=== PATIENT | female | born 1940 | race Caucasian/White ===

== ENCOUNTER 2023-02-06 11:13 | Outpatient (OUT) | payer MEDICARE, SELFPAY ==
[2023-02-06 11:31] LABS: Calcium 9.9 mg/dL (8.5-10.1); Estimated GFR (African America >60 (>=60); Estimated GFR (Non-African Ame >60 (>=60)
[2023-02-08 13:15] VITALS: BP 133/76; PULSE 66; RESP 20; TEMP 36.7; O2SAT 96
[2023-02-08] MEDS: ROMOSOZUMAB-AQQG 210 MG/2.34 ML SYRINGE SQ (13:25)
--- NOTE | 2023-02-08 13:31 | PC.NURSE ---
1315: Pt. to [facility] amb per self. Seated in recliner. VSS. Denies c/o. Pt. called earlier to have pharmacy remove med. from refrigerator. Denies c/o adverse reactions from previous injections of Evenity. 1325: Pt. medicated with Evenity 210mg SQ to right arm x 2 injection sites. No bleeding observed. 1328: Pt. without c/o. D/c'd to home amb.
== END 2023-02-08 10:00 | disposition home or self-care (01) ==
LOC: INF 11:14
PROVIDERS: PCP Family Medicine
DX: M80.00XA Age-related osteoporosis with current pathological fracture, unspecified site, initial encounter for fracture (principal)
CPT/HCPCS: 36415; 82310; 82565; 96372; J3111

== ENCOUNTER 2023-03-13 12:12 | Outpatient (OUT) | payer MEDICARE, SELFPAY | END 2023-03-13 12:13 | disposition home or self-care (01) | LOC: LAB 03-20 12:14 | PROVIDERS: PCP Family Medicine; Visit Provider Internal Medicine Hematology & Oncology | DX: M80.00XA Age-related osteoporosis with current pathological fracture, unspecified site, initial encounter for fracture (principal) | CPT/HCPCS: 36415; 82310; 82565 ==

== ENCOUNTER 2023-03-15 12:15 | Outpatient (OUT) | payer MEDICARE, SELFPAY ==
[2023-03-13 11:36] LABS: Calcium 10.3 mg/dL (8.5-10.1); Estimated GFR (African America >60 (>=60); Estimated GFR (Non-African Ame >60 (>=60)
[2023-03-15] MEDS: ROMOSOZUMAB-AQQG 210 MG/2.34 ML SYRINGE SQ (11:30)
[2023-03-15 11:32] VITALS: BP 136/65; PULSE 88; RESP 18; TEMP 36.9; O2SAT 92
--- NOTE | 2023-03-15 11:34 | PC.NURSE ---
Patient is here for Evenity injection, she had her blood work done on 03/13, she denies any issue or concerns. Patient tolerated injection well and has tolerated it in the past well. She was discharged home.
== END 2023-03-15 12:16 | disposition home or self-care (01) ==
LOC: INF 03-20 12:15
PROVIDERS: PCP Family Medicine
DX: M80.00XA Age-related osteoporosis with current pathological fracture, unspecified site, initial encounter for fracture (principal)
CPT/HCPCS: 36415; 82310; 82565; 96372; J3111

== ENCOUNTER 2023-04-11 11:34 | Outpatient (RCR) | payer MEDICARE, SELFPAY ==
[2023-04-11 12:37] LABS: Calcium 9.8 mg/dL (8.5-10.1); Estimated GFR (African America >60 (>=60); Estimated GFR (Non-African Ame >60 (>=60)
[2023-04-13 13:20] VITALS: BP 112/60; PULSE 75; RESP 18; TEMP 36.4; O2SAT 90
[2023-04-13] MEDS: ROMOSOZUMAB-AQQG 210 MG/2.34 ML SYRINGE SQ (13:30)
== END 2023-04-27 23:59 | disposition home or self-care (01) ==
LOC: INF 11:34
PROVIDERS: PCP Family Medicine
DX: M81.0 Age-related osteoporosis without current pathological fracture (principal)
CPT/HCPCS: 36415; 82310; 82565; 96372; J3111

== ENCOUNTER 2023-05-15 11:55 | Outpatient (OUT) | payer MEDICARE, SELFPAY ==
[2023-05-15 12:56] LABS: Calcium 9.1 mg/dL (8.5-10.1); Estimated GFR (African America >60 (>=60); Estimated GFR (Non-African Ame >60 (>=60)
== END 2023-05-15 11:56 | disposition home or self-care (01) ==
LOC: LAB 11:56
PROVIDERS: PCP Family Medicine
DX: M81.0 Age-related osteoporosis without current pathological fracture (principal)
CPT/HCPCS: 36415; 82310; 82565

== ENCOUNTER 2023-05-18 07:36 | Outpatient (RCR) | payer MEDICARE, SELFPAY ==
[2023-05-18 13:29] VITALS: BP 109/57; PULSE 79; RESP 18; TEMP 36.4; O2SAT 97
--- NOTE | 2023-05-18 13:31 | PC.NURSE ---
1325 Arrived ambulatory to chair 1. alert oriented. No complaints offered.
[2023-05-18] MEDS: ROMOSOZUMAB-AQQG 210 MG/2.34 ML SYRINGE SQ (13:35)
== END 2023-05-27 23:59 | disposition home or self-care (01) ==
LOC: INF 07:36
PROVIDERS: PCP Family Medicine
DX: M80.00XA Age-related osteoporosis with current pathological fracture, unspecified site, initial encounter for fracture (principal)
CPT/HCPCS: 96372; J3111

== ENCOUNTER 2023-06-15 07:36 | Outpatient (RCR) | payer MEDICARE, SELFPAY ==
[2023-06-13 11:12] LABS: Calcium 9.6 mg/dL (8.5-10.1); Estimated GFR (African America >60 (>=60); Estimated GFR (Non-African Ame 58 (>=60)
[2023-06-15] MEDS: ROMOSOZUMAB-AQQG 210 MG/2.34 ML SYRINGE SQ (13:31)
== END 2023-06-27 23:59 | disposition home or self-care (01) ==
LOC: INF 07:36
PROVIDERS: PCP Family Medicine
DX: M81.0 Age-related osteoporosis without current pathological fracture (principal)
CPT/HCPCS: 36415; 82310; 82565; 96372; J3111

== ENCOUNTER 2023-06-19 16:25 | Outpatient (RCR) | payer MEDICARE, SELFPAY | END 2023-06-26 07:13 | disposition home or self-care (01) | LOC: CR 16:25 | PROVIDERS: PCP Family Medicine; Visit Provider Family Medicine | DX: J44.9 Chronic obstructive pulmonary disease, unspecified (principal) ==

== ENCOUNTER 2023-07-10 14:26 | Outpatient (OUT) | payer MEDICARE, SELFPAY ==
[2023-07-10 15:01] LABS: Calcium 9.7 mg/dL (8.5-10.1); Estimated GFR (African America >60 (>=60); Estimated GFR (Non-African Ame 59 (>=60)
== END 2023-07-10 14:27 | disposition home or self-care (01) ==
LOC: LAB 14:26
PROVIDERS: PCP Family Medicine; Visit Provider Family Medicine
DX: M81.0 Age-related osteoporosis without current pathological fracture (principal)
CPT/HCPCS: 36415; 82310; 82565

== ENCOUNTER 2023-07-13 13:23 | Outpatient (RCR) | payer MEDICARE, SELFPAY ==
[2023-07-13] MEDS: ROMOSOZUMAB-AQQG 210 MG/2.34 ML SYRINGE SQ (13:30)
[2023-07-13 13:31] VITALS: BP 130/65; PULSE 87; RESP 18; TEMP 36; O2SAT 92
== END 2023-07-27 23:59 | disposition home or self-care (01) ==
LOC: INF 13:23
PROVIDERS: PCP Family Medicine
DX: M80.00XA Age-related osteoporosis with current pathological fracture, unspecified site, initial encounter for fracture (principal)
CPT/HCPCS: 96372; J3111

== ENCOUNTER 2023-08-14 14:15 | Outpatient (OUT) | payer MEDICARE, SELFPAY ==
[2023-08-14 14:38] LABS: Calcium 9.7 mg/dL (8.5-10.1); Estimated GFR (African America 54 (>=60); Estimated GFR (Non-African Ame 45 (>=60)
== END 2023-08-14 14:16 | disposition home or self-care (01) ==
PROVIDERS: PCP Family Medicine
DX: M81.0 Age-related osteoporosis without current pathological fracture (principal)
CPT/HCPCS: 36415; 82310; 82565

== ENCOUNTER 2023-08-18 07:21 | Outpatient (RCR) | payer MEDICARE, SELFPAY ==
[2023-08-18] MEDS: ROMOSOZUMAB-AQQG 210 MG/2.34 ML SYRINGE SQ (10:04)
[2023-08-18 10:12] VITALS: BP 112/60; PULSE 65; RESP 20; TEMP 35.8; O2SAT 93
--- NOTE | 2023-08-18 10:15 | PC.NURSE ---
0950 arrival ambulatory to chair 1. alert & oriented. 1000 injection of Evinity sub q rt upper posterior arm, bandaid applied. Tolerated well. 1010 Released ambulatory
== END 2023-08-18 10:10 | disposition home or self-care (01) ==
LOC: INF 07:21
PROVIDERS: PCP Family Medicine
DX: M80.00XA Age-related osteoporosis with current pathological fracture, unspecified site, initial encounter for fracture (principal)
CPT/HCPCS: 96372; J3111

== ENCOUNTER 2023-08-23 07:13 | Outpatient (RCR) | payer MEDICARE, SELFPAY ==
--- NOTE | 2023-06-27 12:07 | CR1_ITS ---
The [facility] Test Date: 2023-06-27 Pat Name: ALEKSANDR SANCHEZ Department: Room: - Gender: Female Radio Division Officer: : 1940 Requested By: SHELIA MOORE Order Number: [id number] Reading MD: SHELIA MOORE Interpretive Statements Session Date: Electronically Signed On 06-28-2023 7:27:22 EDT by SHELIA MOORE
--- NOTE | 2023-07-26 07:57 | CR1_ITS ---
The [facility] Test Date: 2023-07-26 Pat Name: ALEKSANDR SANCHEZ Department: Room: - Gender: Female Therapeutic Dietitian: : 1940 Requested By: SHELIA MOORE Order Number: [id number] Reading MD: SHELIA MOORE Interpretive Statements Session Date: Electronically Signed On 07-27-2023 7:22:23 EST by SHELIA MOORE
--- NOTE | 2023-08-23 12:44 | CR1_ITS ---
The [facility] Test Date: 2023-08-23 Pat Name: ALEKSANDR SANCHEZ Department: Room: - Gender: Female Senior Courtroom Clerk: : 1940 Requested By: SHELIA MOORE Order Number: [id number] Reading MD: SHELIA MOORE Interpretive Statements Session Date: Electronically Signed On 08-25-2023 7:17:28 EST by SHELIA MOORE
== END 2023-08-27 09:07 | disposition home or self-care (01) ==
LOC: CR 07:13
PROVIDERS: PCP Family Medicine; Visit Provider Family Medicine
DX: J44.9 Chronic obstructive pulmonary disease, unspecified (principal)
CPT/HCPCS: 36415; 82310; 82565; 94625

== ENCOUNTER 2023-09-14 07:34 | Outpatient (RCR) | payer MEDICARE, SELFPAY ==
[2023-09-13 14:44] LABS: Calcium 9.8 mg/dL (8.5-10.1); Estimated GFR (African America 58 (>=60); Estimated GFR (Non-African Ame 48 (>=60)
[2023-09-14] MEDS: ROMOSOZUMAB-AQQG 210 MG/2.34 ML SYRINGE SQ (13:25)
[2023-09-14 13:50] VITALS: BP 119/68; PULSE 78; RESP 20; TEMP 36.4; O2SAT 91
== END 2023-09-14 14:00 | disposition home or self-care (01) ==
LOC: INF 07:34
PROVIDERS: PCP Family Medicine
DX: M81.0 Age-related osteoporosis without current pathological fracture (principal)
CPT/HCPCS: 36415; 82310; 82565; 96372; J3111

== ENCOUNTER 2023-10-09 07:37 | Outpatient (RCR) | payer MEDICARE, SELFPAY ==
[2023-10-06 13:38] LABS: Estimated GFR (African America >60 (>=60); Estimated GFR (Non-African Ame 54 (>=60)
[2023-10-09 13:30] VITALS: BP 110/55; PULSE 74; RESP 18; TEMP 36.3; O2SAT 93
[2023-10-09] MEDS: ROMOSOZUMAB-AQQG 210 MG/2.34 ML SYRINGE SQ (13:46)
--- NOTE | 2023-10-09 13:52 | PC.NURSE ---
Pt is here for evenity injection and tolerated this well. She denies any issues or concerns at this time. She was discharged home ambulatory.
== END 2023-10-26 23:59 | disposition home or self-care (01) ==
LOC: INF 07:37
PROVIDERS: PCP Family Medicine
DX: M81.0 Age-related osteoporosis without current pathological fracture (principal)
CPT/HCPCS: 36415; 82310; 82565; 96372; J3111

== ENCOUNTER 2023-12-11 07:31 | Outpatient (RCR) | payer MEDICARE, SELFPAY ==
[2023-12-11] MEDS: ROMOSOZUMAB-AQQG 210 MG/2.34 ML SYRINGE SQ (11:34)
[2023-12-11 11:42] VITALS: BP 103/55; PULSE 71; TEMP 36.2; O2SAT 93
== END 2023-12-26 23:59 | disposition home or self-care (01) ==
LOC: INF 07:31
PROVIDERS: PCP Family Medicine
DX: M81.0 Age-related osteoporosis without current pathological fracture (principal)
CPT/HCPCS: 96372; J3111

== ENCOUNTER 2023-12-20 11:18 | Outpatient (OUT) | payer MEDICARE, SELFPAY ==
[2023-12-20 12:31] LABS: Calcium 9.5 mg/dL (8.5-10.1); Estimated GFR (African America >60 (>=60); Estimated GFR (Non-African Ame 54 (>=60)
== END 2023-12-20 11:19 | disposition home or self-care (01) ==
LOC: LAB 11:30
PROVIDERS: PCP Family Medicine
DX: M81.0 Age-related osteoporosis without current pathological fracture (principal)
CPT/HCPCS: 36415; 82310; 82565

== ENCOUNTER 2024-01-04 07:08 | Outpatient (RCR) | payer MEDICARE, SELFPAY ==
--- NOTE | 2023-09-22 12:54 | CR1_ITS ---
The [facility] Test Date: 2023-09-22 Pat Name: ALEKSANDR SANCHEZ Department: Room: - Gender: Female Silk Conditioner: : 1940 Requested By: SHELIA MOORE Order Number: [id number] Desean MD: SHELIA MOORE Interpretive Statements Session Date: Electronically Signed On 09-22-2023 14:27:19 EST by SHELIA MOORE
--- NOTE | 2023-10-23 13:37 | CR1_ITS ---
The [facility] Test Date: 2023-10-23 Pat Name: ALEKSANDR SANCHEZ Department: Room: - Gender: Female Solar Energy Technician: : 1940 Requested By: SHELIA MOORE Order Number: [id number] Reading MD: SHELIA MOORE Interpretive Statements Session Date: Electronically Signed On 10-23-2023 23:37:49 EST by SHELIA MOORE
--- NOTE | 2023-11-20 07:46 | CR1_ITS ---
The [facility] Test Date: 2023-11-20 Pat Name: ALEKSANDR SANCHEZ Department: Room: - Gender: Female Combine Mechanic: : 1940 Requested By: SHELIA MOORE Order Number: [id number] Reading MD: SHELIA MOORE Interpretive Statements Session Date: Electronically Signed On 11-20-2023 22:50:38 EDT by SHELIA MOORE
--- NOTE | 2024-01-17 13:24 | CR1_ITS ---
The [facility] Test Date: 2024-01-17 Pat Name: ALEKSANDR SANCHEZ Department: Room: - Gender: Female Garbage Truck Dispatcher: : 1940 Requested By: SHELIA MOORE Order Number: [id number] Reading MD: SHELIA MOORE Interpretive Statements Session Date: Electronically Signed On 01-17-2024 22:28:08 EDT by SHELIA OMORE
--- NOTE | 2024-01-24 09:45 | CR1_ITS ---
The [facility] Test Date: 2024-01-24 Pat Name: ALEKSANDR SANCHEZ Department: Room: - Gender: Female Entry Level Civil Engineer: : 1940 Requested By: SHELIA MOORE Order Number: [id number] Reading MD: SHELIA MOORE Interpretive Statements Session Date: Electronically Signed On 01-24-2024 23:10:43 EDT by SHELIA MOORE
== END 2024-01-24 09:49 | disposition home or self-care (01) ==
LOC: CR 07:08
PROVIDERS: PCP Family Medicine; Visit Provider Family Medicine
DX: J44.9 Chronic obstructive pulmonary disease, unspecified (principal)
CPT/HCPCS: 93798; 94625

== ENCOUNTER 2024-01-11 07:26 | Outpatient (RCR) | payer MEDICARE, SELFPAY ==
[2024-01-11 11:25] VITALS: BP 131/71; PULSE 65; O2SAT 95
[2024-01-11] MEDS: ROMOSOZUMAB-AQQG 210 MG/2.34 ML SYRINGE SQ (11:40)
--- NOTE | 2024-01-11 11:41 | PC.NURSE ---
Patient is here for evenity injection, vitals obtained and stable. She tolerated this well and denies any concerns. She was discharged home ambulatory.
== END 2024-01-26 23:59 | disposition home or self-care (01) ==
LOC: INF 07:26
PROVIDERS: PCP Family Medicine; Visit Provider Nurse Practitioner Family
DX: M81.0 Age-related osteoporosis without current pathological fracture (principal)
CPT/HCPCS: 96372; J3111

== ENCOUNTER 2024-02-14 07:25 | Outpatient (RCR) | payer MEDICARE, SELFPAY ==
[2024-02-14 12:10] VITALS: BP 107/63; PULSE 78; TEMP 37.2; O2SAT 91
[2024-02-14] MEDS: ROMOSOZUMAB-AQQG 210 MG/2.34 ML SYRINGE SQ (12:11)
== END 2024-02-14 14:58 | disposition home or self-care (01) ==
LOC: INF 07:25
PROVIDERS: PCP Family Medicine; Visit Provider Nurse Practitioner Family
DX: M81.0 Age-related osteoporosis without current pathological fracture (principal)
CPT/HCPCS: 96372; J3111

== ENCOUNTER 2024-03-21 07:33 | Outpatient (RCR) | payer MEDICARE, SELFPAY ==
[2024-03-21 13:00] VITALS: BP 156/72; PULSE 77; TEMP 37.1; O2SAT 91
[2024-03-21] MEDS: ROMOSOZUMAB-AQQG 210 MG/2.34 ML SYRINGE SQ (13:24)
== END 2024-03-27 23:59 | disposition home or self-care (01) ==
LOC: INF 07:33
PROVIDERS: PCP Family Medicine; Visit Provider Nurse Practitioner Family
DX: M81.0 Age-related osteoporosis without current pathological fracture (principal)
CPT/HCPCS: 96372; J3111

== ENCOUNTER 2024-04-22 07:36 | Outpatient (RCR) | payer MEDICARE, SELFPAY ==
[2024-04-22 10:53] VITALS: BP 95/56; PULSE 68; TEMP 37.1; O2SAT 94
[2024-04-22] MEDS: ROMOSOZUMAB-AQQG 210 MG/2.34 ML SYRINGE SQ (11:17)
== END 2024-04-27 23:59 | disposition home or self-care (01) ==
LOC: INF 07:36
PROVIDERS: PCP Family Medicine; Visit Provider Nurse Practitioner Family
DX: M81.0 Age-related osteoporosis without current pathological fracture (principal)
CPT/HCPCS: 96372; J3111

== ENCOUNTER 2024-05-27 07:37 | Outpatient (RCR) | payer MEDICARE, SELFPAY ==
[2024-05-27] MEDS: ROMOSOZUMAB-AQQG 210 MG/2.34 ML SYRINGE SQ (11:02)
[2024-05-27 11:06] VITALS: BP 121/61; PULSE 82; TEMP 36.5; O2SAT 91
== END 2024-05-27 23:59 | disposition home or self-care (01) ==
LOC: INF 07:37
PROVIDERS: PCP Family Medicine; Visit Provider Nurse Practitioner Family
DX: M81.0 Age-related osteoporosis without current pathological fracture (principal)
CPT/HCPCS: 96372; J3111

== ENCOUNTER 2024-07-08 07:38 | Outpatient (RCR) | payer MEDICARE, SELFPAY ==
[2024-07-08 11:30] VITALS: BP 110/51; PULSE 76; TEMP 36.6; O2SAT 91
[2024-07-08 11:52] LABS: Alanine Aminotransferase 15 U/L (14-59); Albumin Level 3.4 g/dL (3.4-5.0); Alkaline Phosphatase 74 U/L (46-116); Anion Gap 13.2; Aspartate Amino Transferase 19 U/L (15-37); BUN Creatinine Ratio 19.5; Bilirubin Total 0.4 mg/dL (0.2-1.0); Calcium 9.6 mg/dL (8.5-10.1); Carbon Dioxide 29.7 mmol/L (21.0-32.0); Chloride 107 mmol/L (98-107); Estimated GFR (African America 48 (>=60 mL/min/1.73m^2); Estimated GFR (Non-African Ame 40 (>=60 mL/min/1.73m^2); Globulin 3.5 g/dL; Glucose 113 mg/dL (74-106); Potassium 4.9 mmol/L (3.5-5.1); Sodium 145 mmol/L (136-145); Total Protein 6.9 g/dL (6.4-8.2)
--- NOTE | 2024-07-08 12:03 | PC.NURSE ---
1130: Pt. to [facility] amb. for Prolia injection. Seated in recliner. VSS. Resulted Labs obtained from [facility] website from 05/15/[address] Montejo. Labs WNL to receive Prolia today. Pharmacy notified. 1200: Medicated with Prolia SQ to left arm. See documentation. No bleeding to site. Tolerates without c/o. 1202: D/c'd amb. to home.
== END 2024-07-18 08:57 | disposition home or self-care (01) ==
LOC: LAB 07:38
PROVIDERS: PCP Family Medicine; Visit Provider Nurse Practitioner Family
DX: M81.0 Age-related osteoporosis without current pathological fracture (principal)
CPT/HCPCS: 36415; 80053

== ENCOUNTER 2025-01-22 11:37 | Inpatient (IN) | payer MEDICARE, SELFPAY ==
[2025-01-22] VITALS (22 sets, daily range): BP systolic 83–123; BP diastolic 44–66; PULSE 94–119; TEMP 36.6–37.1; O2SAT 78–95; BMI 17.9; BMI 18.9
--- OUTSIDE RECORDS SUMMARY | 2025-01-22 11:44 | XMS_ITS | Clinical Summary ---
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) 12/04/2024 11:30 AM EDT Office Visit [facility] [address] [place] [address] [place] [address] 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) 11/13/2024 10:00 AM EDT Office Visit [facility] [address] [place] [address] [place] [address] 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) from Last 3 Months Social History Tobacco Use Types Packs/Day Years Used Date Smoking Tobacco: Never Assessed Comments Unknown Sex and Gender Information Value Date Recorded Sex Assigned at Female 09/17/2024 4:10 PM EST Legal Sex Female 6:38 PM EDT Gender Identity Female 09/17/2024 4:10 PM EST Sexual Orientation Not on file Last Filed Vital Signs Vital Sign Reading Time Taken Comments Blood Pressure 122/82 06/17/2021 12:00 PM EDT Pulse - - Temperature - - Respiratory Rate - - Oxygen Saturation - - Inhaled Oxygen Concentration - - Weight 50.8 kg (112 lb) 01/11/2022 12:00 PM EDT Height 157.5 cm (5' 2 ) 01/11/2022 12:00 PM EDT Body Mass Index 20.49 01/11/2022 12:00 PM EDT Plan of Treatment Health Maintenance Due Date Last Done Comments Pneumococcal Vaccine: 65+ Ye ars (2 of 2 - PPSV23) 12/11/2019 12/10/2018 Influenza Vaccine Completed 06/18/2024, , 05/24/2022, Additional history exists Insurance [employer] [place] [address] Care Teams Electronics Maintenance Technician Relationship Specialty Start Date End Date Geo Montejo DO [address] [place] [phone] PCP - General Family Medicine 12/26/24
--- OUTSIDE RECORDS SUMMARY | 2025-01-22 11:44 | XMS_ITS | Encounter Summary ---
Author Organization [facility] Address [address] [place] [address] Phone Care Team Providers Care Wet Pour Supervisor Name Role Phone Geo Montejo DO Primary Care Provider [phone] Encounter Details Date Type Department Care Team (Late st Contact Info) Description 12/20/2023 Scanned Document [facility] [address] [place] [address] Scanning, Generic Provider Social History Tobacco Use Types Packs/Day Years Used Date Smoking Tobacco: Never Assessed Comments Unknown Sex and Gender Information Value Date Recorded Sex Assigned at Not on file Legal Sex Female 8:51 PM EST Gender Identity Not on file Sexual Orientation Not on file documented as of this encounter Plan of Treatment Upcoming Encounters Date Type Department Care Team (Late st Contact Info) Description 01/28/2025 3:20 PM EDT Office Visit [facility] [address] [facility] [address] [place] [phone] Celestina Khalil MD [address] [facility] [address] [place] [address] documented as of this encounter Visit Diagnoses Not on filedocumented in this encounter Care Teams Wet Pour Supervisor Relationship Specialty Start Date End Date Geo Montejo DO PCP - General 08/28/99 documented as of this encounter
--- OUTSIDE RECORDS SUMMARY | 2025-01-22 11:44 | XMS_ITS | Encounter Summary ---
Author Organization [facility] Address [address] [place] [address] Phone Care Team Providers Care Undercover Operator Name Role Phone Geo Montejo DO Primary Care Provider [phone] Encounter Details Date Type Department Care Team (Late st Contact Info) Description 11/24/2021 Orders Only [facility] [address] [place] [address] Conversion, Onbase Social History Tobacco Use Types Packs/Day Years Used Date Smoking Tobacco: Never Assessed Comments Unknown Sex and Gender Information Value Date Recorded Sex Assigned at Not on file Legal Sex Female 8:51 PM EST Gender Identity Not on file Sexual Orientation Not on file documented as of this encounter Plan of Treatment Upcoming Encounters Date Type Department Care Team (Late Contact Info) Description 01/28/2025 3:20 PM EDT Office Visit [facility] [address] [address] Celestina Khalil MD [address] [facility] [address] [place] [address] Scheduled Orders Name Type Priority Associated Diagnoses Orde r Schedule OUTSIDE LAB SCAN Lab Ordered: 11/24/2021 documented as of this encounter Visit Diagnoses Not on filedocumented in this encounter Care Teams Undercover Operator Relationship Specialty Start Date End Date Geo Montejo DO PCP - General 08/28/99 documented as of this encounter
--- OUTSIDE RECORDS SUMMARY | 2025-01-22 11:44 | XMS_ITS | Encounter Summary ---
Author Organization [facility] Address [address] [place] [address] Phone Care Team Providers Care Multiple Pressure Riveter Operator Name Role Phone Geo Montejo DO Primary Care Provider [phone] Encounter Details Date Type Department Care Team (Late st Contact Info) Description 02/04/2022 Orders Only [facility] [address] [place] [address] Conversion, Onbase Social History Tobacco Use Types [...] Description 01/28/2025 3:20 PM EDT Office Visit [facility] [address] [address] Celestina Khalil MD [address] [facility] [address] [place] [address] Scheduled Orders Name Type Priority Associated Diagnoses Orde r Schedule OUTSIDE LAB SCAN Lab Ordered: 02/04/2022 documented as of this encounter Visit Diagnoses Not on filedocumented in this encounter Care Teams Multiple Pressure Riveter Operator Relationship Specialty Start Date End Date Geo Montejo DO PCP - General 08/28/99 documented as of this encounter
--- OUTSIDE RECORDS SUMMARY | 2025-01-22 11:44 | XMS_ITS | Clinical Summary ---
Author Organization [facility] Address [address] [place] [address] Phone Care Team Providers Care Warehouse Shipping Clerk Name Role Phone Geo Montejo DO Primary Care Provider [phone] Allergies Active Allergy Reactions Criticality Noted Date Comments Codeine Nausea Only Medium 08/31/2023 Medications aspirin 81 mg EC tablet Take 1 tablet (81 mg) by mouth once daily. Active CALCIUM CARBONATE-VITAMIN D3 ORAL Take 1 tablet by mouth once daily. Active clonazePAM (KlonoPIN) 0.5 mg tablet Take 1 tablet (0.5 mg) by mouth once daily. Active esomeprazole magnesium (NexIUM 24HR) 20 mg tablet,delayed release (DR/EC) Take 1 tablet by mouth once daily. Active fluticasone (Flonase) 50 mcg/actuation nasal spray Administer 2 sprays into each nostril once daily. Active fluticasone-umeclid in-vilanter (TRELEGY-ELLIPTA) 100-62.5-25 mcg blister with device Inhale 1 puff. Active latanoprost (Xalatan) 0.005 % ophthalmic solution Administer 1 drop into both eyes once daily. Active multivitamin with minerals iron-free (Centrum Silver) Take 1 tablet by mouth once daily. Active potassium chloride CR 10 mEq ER tablet Take 2 tablets (20 mEq) by mouth once daily. Active vit O-R-qakxdd-zinc-lut ein (Eye Multivit-Lutein,C-E -Cu-Zn,) 226 mg-90 mg-2 mg-34.8 mg-5 mg capsule Take 1 tablet by mouth see administration instructions. Active brimonidine-timoloL (Combigan) 0.2-0.5 % ophthalmic solution Administer 1 drop into both eyes every 12 hours. Active albuterol 2.5 mg /3 mL (0.083 %) nebulizer solution Three times daily 10/27 Active romosozumab-aqqg (Evenity) 105 mg/1.17 mL syringe Inject under the skin every 30 (thirty) days. Active torsemide (Demadex) 10 mg tabletIndications:E haroldo, unspecified type TAKE 1 TABLET BY MOUTH DAILY 90 tablet 3 05/21/20 24 Active lisinopril 2.5 mg tabletIndications:B enign essential hypertension TAKE 1 TABLET BY MOUTH ONCE DAILY 90 tablet 3 12/10/19 25 Active carvedilol (Coreg) 6.25 mg tabletIndications:B enign essential hypertension,Paroxy smal supraventricular tachycardia TAKE 1 TABLET BY MOUTH TWICE DAILY 180 tablet 3 12/10/19 25 Active pravastatin (Pravachol) 40 mg tabletIndications:H yperlipidemia, unspecified hyperlipidemia type Take 1 tablet (40 mg) by mouth once daily at bedtime. 90 tablet 3 12/21/19 25 2025 Active Active Problems Problem Noted Date Diagnosed Date Former cigarette smoker 02/09/2024 Benign essential hypertension 08/31/2023 Chest pain 08/31/2023 COPD (chronic obstructive pulmonary disease) (Mu lti) 08/31/2023 Dyspnea 08/31/2023 Edema 08/31/2023 Fainting 08/31/2023 Hyperlipidemia 08/31/2023 Paroxysmal supraventricular tachycardia 08/31/19 24 Encounters Date Type Department Care Team Description 12/19/[address] [address] Ronnie Amin MD Hyperlipidemia, unspecified hyperlipidemia type 12/09/[address] [place] [address] Ronnie Amin MD Benign essential hypertension; Paroxysmal supraventricular tachycardia from Last 3 Months Social History Tobacco Use Types Packs/Day Years Used Date Smoking Tobacco: Former Cigarettes Smokeless Tobacco: Never Tobacco Cessation:Counseling Given: Not Answered Alcohol Use Standard Drinks/Week Comments Yes 0 (1 standard drink = 0.6 oz pur e alcohol) couple times a year Comments Unknown Sex and Gender Information Value Date Recorded Sex Assigned at Not on file Legal Sex Female 8:51 PM EST Gender Identity Not on file Sexual Orientation Not on file Last Filed Vital Signs Vital Sign Reading Time Taken Comments Blood Pressure 100/58 02/09/2024 1:16 PM EDT Pulse 68 02/09/2024 1:16 PM EDT Temperature - - Respiratory Rate - - Oxygen Saturation - - Inhaled Oxygen Concentration - - Weight 49.4 kg (109 lb) 02/09/2024 1:16 PM EDT Height 157.5 cm (5' 2 ) 02/09/2024 1:16 PM EDT Body Mass Index 19.94 02/09/2024 1:16 PM EDT Plan of Treatment Upcoming Encounters Date Type Department Care Team (Late st Contact Info) Description 01/28/2025 3:20 PM EDT Office Visit [facility] [address] [phone] Celestina Khalil MD [address] [facility] [address] [place] [address] Health Maintenance Due Date Last Done Comments Bone Density Scan 1940 Lipid Panel 1940 Medicare Annual Wellness Visit (AWV) 1940 Diabetes Screening 1959 DTaP/Tdap/Td Vaccines (1 - Tdap) 1963 RSV High Risk: (Elderly (60+) or Population) (1 - 1-dose 75+ series) 2016 COVID-19 Vaccine ( season) 2024 06/01/2021, 10/17/2020, 09/26/2020 Influenza Vaccine (Season Ended) 2025 05/30/2023, 05/24/2022, 05/02/2021, Additional history exists Irritable Bowel Syndrome Discontinued 10/13/2016 Pneumococcal Vaccine Completed 12/10/2018, 08/28/2018, 08/28/2017, Additional history exists Zoster Vaccines Completed 08/16/2019, 02/2019, 06/06/2013 HIB Vaccines Aged Out No longer eligi ble based on patient's age to complete this topic HPV Vaccines Aged Out No longer eligi ble based on patient's age to complete this topic Hepatitis A Vaccines Aged Out No long er eligible based on patient's age to complete this topic Hepatitis B Vaccines Aged Out No long er eligible based on patient's age to complete this topic IPV Vaccines Aged Out No longer eligi ble based on patient's age to complete this topic Meningococcal Vaccine Aged Out No julisa mitchel eligible based on patient's age to complete this topic Rotavirus Vaccines Aged Out No longer eligible based on patient's age to complete this topic Procedures Procedure Name Priority Date/Time Associated Diagnosis Comments COLONOSCOPY 10/13/2016 from Last 3 Months or Most Recently Relevant to Health Maintenance Results * COLONOSCOPY (10/13/2016) Anatomical Region Laterality Modality Endoscopy Narrative 10/13/2016 Ordered by an unspecified provider. us Onbase Conversion ENDOSCOPY PROCEDURE ORDERABLES Final Result from Last 3 Months or Most Recently Relevant to Health Maintenance Insurance [facility] UNITED HEALTHCARE MEDICARE [facility] UNITED [employer] MEDICARE Care Teams Warehouse Shipping Clerk Relationship Specialty Start Date End Date Geo Montejo DO PCP - General 08/28/99
--- OUTSIDE RECORDS SUMMARY | 2025-01-22 11:44 | XMS_ITS | Encounter Summary ---
Author Organization [facility] Address [address] [place] [address] Phone Care Team Providers Care Ager Operator Name Role Phone Geo Montejo DO Primary Care Provider [phone] Encounter Details Date Type Department Care Team (Late st Contact Info) Description 01/09/2024 Scanned Document [facility] [address] [place] [address] Scanning, Generic Provider Social History Tobacco Use [...] Description 01/28/2025 3:20 PM EDT Office Visit [facility] [address] [facility] [address] [place] [phone] Celestina Khalil MD [address] [facility] [address] [place] [address] documented as of this encounter Visit Diagnoses Not on filedocumented in this encounter Care Teams Ager Operator Relationship Specialty Start Date End Date Geo Montejo DO PCP - General 08/28/99 documented as of this encounter
--- OUTSIDE RECORDS SUMMARY | 2025-01-22 11:44 | XMS_ITS | Encounter Summary ---
Author Organization [facility] Address [address] [place] [address] Care Team Providers Care Barrel Cooper Name Role Phone Geo Montejo DO Primary Care Provider [phone] Encounter Details Date Type Department Care Team ([facility] Contact Info) Description 09/20/2024 Abstract [facility] [address] [place] [address] Adenike Koch, [facility] [address] [place] [address] Social History Tobacco Use Types Packs/Day Years Used Date Smoking Tobacco: Never Assessed Comments Unknown Sex and Gender Information Value Date Recorded Sex Assigned at Female 09/17/2024 4:10 PM EST Legal Sex Female 6:38 PM EDT Gender Identity Female 09/17/2024 4:10 PM EST Sexual Orientation Not on file documented as of this encounter Plan of Treatment Not on file documented as of this encounter Visit Diagnoses Not on filedocumented in this encounter Care Teams Barrel Cooper Relationship Specialty Start Date End Date Geo Montejo DO [address] [place] [address] PCP - General Family Medicine 12/26/24 documented as of this encounter
--- NOTE | 2025-01-22 11:52 | ECG_ITS ---
The [facility] Test Date: 2025-01-22 Pat Name: ALEKSANDR SANCHEZ Department: Room: - Gender: Female Bolt Sawyer: : 1940 Requested By: [id number] Order Number: [id number] Reading MD: ANUSHKA DE LOS SANTOS M.D. Measurements Intervals [place] Rate: 115 P: 17 [place]: 124 QRS: 73 QRSD: 144 T: 82 QT: 362 QTc: 430 Interpretive Statements 1120 Sinus tachycardia 83399 with occasional ventricular premature complexes (Unreliable analysis due to noise) 2450 Right bundle branch block 7300 Indeterminate axis 0102 ARTIFACT PRESENT 9150 abnormal ECG No previous ECG available for comparison Electronically Signed On 01-22-2025 18:05:18 EDT by ANUSHKA DE LOS SANTOS M.D.
--- NOTE | 2025-01-22 11:52 | XR_ITS ---
The [place] [id number] Patient Name: ALEKSANDR SANCHEZ MRN: [id number] date: 1940 Sex: F Assigned Patient Location: ED.MAIN Current Patient Location: ED.MAIN Accession/Order Number: [id number] Exam Date: 01/22/2025 12:43 Report Date: 01/22/2025 12:48 At the request of: MIKE NI MD Procedure: XR chest 1V PORTABLE AP ERECT CHEST 1152 hours CLINICAL HISTORY: Shortness of breath and cough for several days COMPARISON: None There is incomplete inspiration. Hyperinflation at the upper lungs is suggested. There is no history regarding tobacco use. There our interstitial changes towards the lung bases where there is more focal pleural and/or parenchymal opacity on the right that obscures the hemidiaphragm. No pneumothorax is seen. The heart is not fully visualized though could be slightly enlarged. The bony structures are osteopenic. There is endplate spurring at the spine. XR/XR chest 1V IMPRESSION: BILATERAL PARENCHYMAL CHANGES, GREATEST AT THE RIGHT BASE WHERE THERE MAY ALSO BE PLEURAL EFFUSION. CORRELATION AND FOLLOW-UP ARE SUGGESTED. POSSIBLE MILD CARDIOMEGALY. Impression dictated by: Latonya Cueva M.D. 01/22/2025 12:48 PM Dictation Location: [place] [address] Electronically authenticated by: [id number] Y Date: 01/22/2025 12:48
--- NOTE | 2025-01-22 11:53 | ED_ITS ---
HPI HPI - General Adult General Chief complaint: Shortness of Breath/Dyspnea Stated complaint: SOB COUGHING R RIB PAIN Time Seen by Provider: 01/22/25 11:47 History of Present Illness HPI narrative: 84-year-old female presents for shortness of breath. She has had it for a few days and has not used a nebulizer treatment at home since the night before last. She has been coughing up some yellow phlegm. She is not on home oxygen. She was noted to have an O2 sat of 79% on room air upon arrival. She has increased shortness of breath with exertion and has a history of COPD. Related Data Allergies Allergy/AdvReac Type Severity Reaction Status Date / Time codeine Allergy Severe Nausea Verified 01/22/25 11:48 onabotulinumtoxinA (From Allergy Severe Anaphylaxis Verified 01/22/25 11:48 Botox) Review of Systems ROS Narrative A ten point review of systems is negative except as noted above. PFSH PFSH Social History Little interest or pleasure in doing things: not at all Feeling down, depressed, or hopeless: not at all Exam Narrative Exam Narrative: Nurses note and vital signs reviewed and patient is not hypoxic. General: The patient appears in no acute respiratory distress. She speaking in full sentences Skin: Warm, dry, no pallor noted. There is no rash noted. Head: Normocephalic, atraumatic Eye: Normal conjunctiva, no drainage Ears, Nose, Mouth, and Throat: oral mucosa is moist. Nares patent. Cardiovascular: Regular Rate and Rhythm, tachycardic Respiratory: Breath sounds are diminished bilaterally and are equal. She has difficulty taking in a deep breath. Back: non-tender GI: Soft and nontender Musculoskeletal: The patient has no evidence of calf tenderness, no pitting edema, symmetrical pulses noted bilaterally Neurological: A&O, normal speech Psychiatric: Cooperative Constitutional Vital Signs, click to edit/add: Last Vital Signs Temp 98.2 F 01/22/25 11:43 Pulse 116 H 01/22/25 11:57 Resp 24 H 01/22/25 11:43 BP 113/48 L 01/22/25 11:43 Pulse Ox 88 L 01/22/25 12:56 O2 Del Method Nasal Cannula 01/22/25 12:06 O2 Flow Rate 4 01/22/25 12:56 Course Vital Signs Vital signs: Vital Signs Temperature 98.2 F 01/22/25 11:43 Respiratory Rate 24 H 01/22/25 11:43 Blood Pressure 113/48 L 01/22/25 11:43 Pulse Oximetry 78 L 01/22/25 11:43 Oxygen Delivery Method Room Air 01/22/25 11:43 Temperature 98.2 F 01/22/25 11:43 Pulse Rate 116 H 01/22/25 11:57 Respiratory Rate 24 H 01/22/25 11:43 Blood Pressure 113/48 L 01/22/25 11:43 Pulse Oximetry 88 L 01/22/25 12:56 Oxygen Delivery Method Nasal Cannula 01/22/25 12:06 Oxygen Delivery Flow Rate 4 01/22/25 12:56 Medical Decision Making MDM Narrative Medical decision making narrative: The patient is found to have right lower lobe pneumonia. WBC 22,000. She is not hypotensive or febrile. She had an O2 sat of 79% on room air. She was placed on nasal cannula, 4 L, and is running in the high 80% range. She is comfortable and will be admitted. Cultures were obtained and she was given IV Rocephin and Zithromax. Treatment diagnosis and disposition were discussed with the patient and her family. Differential Diagnosis Differential Diagnosis: Pneumonia, influenza, COVID, COPD exacerbation Lab Data Lab results reviewed: Yes I reviewed the patient's lab results Labs: Lab Results 01/22/25 01/22/25 Range/Units 11:55 12:00 WBC 22.0 H (4.0-11.0) 10^3/uL RBC 4.42 (4.20-5.40) 10^6/uL Hgb 13.8 (12.0-16.0) g/dL Hct 42.7 (36.0-48.0) % MCV 96.6 (81.0-99.0) fL MCH 31.2 (26.7-34.0) pg MCHC 32.3 (29.9-35.2) g/dL RDW 14.5 (11.0-15.0) % Plt Count 308 (150-450) 10^3/uL MPV 10.5 (9.5-13.5) fL Seg Neuts % (Manual) 56.0 (43.0-75.0) Band Neutrophils % 35.0 H (0-5) % Lymphocytes % (Manual) 5.0 L (20.5-60.0) % Monocytes % (Manual) 4.0 (1.7-12.0) % Eosinophils % (Manual) 0.0 L (0.9-7.0) % Basophils % (Manual) 0.0 L (0.2-2.0) % Neutrophils # (Manual) 12.32 H (1.4-6.5) 10^3/uL Band Neutrophils # 7.7 H (0.0-0.3) 10^3/uL Lymphocytes # (Manual) 1.10 L (1.20-3.80) 10^3/uL Monocytes # (Manual) 0.88 H (0.30-0.80) 10^3/uL Eosinophils # (Manual) 0.00 (0.00-0.70) 10^3/uL Basophils # (Manual) 0.00 (0.00-0.10) 10^3/uL Sodium 143 (136-145) mmol/L Potassium 4.6 (3.5-5.1) mmol/L Chloride 103 (98-107) mmol/L Carbon Dioxide 27.9 (21.0-32.0) mmol/L Anion Gap 16.7 BUN 29.0 H (7.0-18.0) mg/dL Creatinine 1.28 H (0.55-1.02) mg/dL Est GFR ( Amer) 48 L (>=60 mL/min/1.73m^2) Est GFR (Non-Af Amer) 40 L (>=60 mL/min/1.73m^2) BUN/Creatinine Ratio 22.7 Glucose 106 (74-106) mg/dL Lactate 4.9 H* (0.4-2.0) mmol/L Calcium 10.1 (8.5-10.1) mg/dL Troponin I High Sens 21.4 (4.0-51.3) pg/mL Influenza Type A Ag Negative Influenza Type B Ag Negative SARS-CoV-2 Ag (CV2AG) Negative (NEGATIVE) Imaging Data Chest x-ray: My impression: Right lower lobe pneumonia Radiologist's impression: ITS Impressions Chest X-Ray 01/22/25 11:52 IMPRESSION: BILATERAL PARENCHYMAL CHANGES, GREATEST AT THE RIGHT BASE WHERE THERE MAY ALSO BE PLEURAL EFFUSION. CORRELATION AND FOLLOW-UP ARE SUGGESTED. POSSIBLE MILD CARDIOMEGALY. Impression dictated by: Latonya Cueva M.D. 01/22/2025 12:48 PM Dictation Location: [place] [address] Electronically authenticated by: [id number] Y Date: 01/22/2025 12:48 ECG Data Attestation: I personally reviewed and interpreted this ECG as follows: (EKG on my interpretation shows sinus tachycardia with a rate of 115. Right bundle branch block present as well as artifact.) Critical Care Time Critical Care Time Critical Care Time: Yes Total Critical Care Time: 35 Attestation: Due to the high probability of sudden and clinically significant deterioration in the patient's condition he/she required the highest level of my preparedness to intervene urgently I provided critical care time including documentation time, medication orders and management, reevaluation, vital sign assessment, ordering and reviewing of lab tests, ordering and reviewing of x-ray studies, and admission orders. Aggregate critical care time is 35 minutes including only time during which I was engaged in work directly related to his/her care and did not include time spent treating other patients simultaneously. Discharge Plan Discharge Chief Complaint: Shortness of Breath/Dyspnea Clinical Impression: Right lower lobe pneumonia Patient Disposition: Admitted As Inpatient Time of Disposition Decision: 13:03 Condition: Fair
[2025-01-22] MEDS: ALBUTEROL SULFATE 2.5 MG/3 ML VIAL NEB IH (12:05)
[2025-01-22 12:15] LABS: Hematocrit 42.7 % (36.0-48.0); Hemoglobin 13.8 g/dL (12.0-16.0); Mean Corpuscular HGB Conc 32.3 g/dL (29.9-35.2); Mean Corpuscular Hemoglobin 31.2 pg (26.7-34.0); Mean Corpuscular Volume 96.6 fL (81.0-99.0); Mean Platelet Volume 10.5 fL (9.5-13.5); Platelet Count 308 10^3/uL (150-450); Red Blood Count 4.42 10^6/uL (4.20-5.40); Red Cell Distribution Width 14.5 % (11.0-15.0)
[2025-01-22] MEDS: METHYLPREDNISOLONE SOD SUCC PF 125 MG/2 ML VIAL IVP (12:22)
[2025-01-22 12:29] LABS: Band Neutrophils Absolute 7.7 10^3/uL (0.0-0.3); Monocytes Absolute Manual 0.88 10^3/uL (0.30-0.80); Segmented Neut Absolute Manual 12.32 10^3/uL (1.4-6.5)
[2025-01-22 12:29] LABS: Influenza Virus A Antigen Negative; Influenza Virus B Antigen Negative; Internal Control Within Normal Limits; SARS-CoV-2 Ag NEGATIVE (NEGATIVE)
[2025-01-22 12:33] LABS: Anion Gap 16.7; BUN Creatinine Ratio 22.7; Calcium 10.1 mg/dL (8.5-10.1); Carbon Dioxide 27.9 mmol/L (21.0-32.0); Chloride 103 mmol/L (98-107); Estimated GFR (African America 48 (>=60 mL/min/1.73m^2); Estimated GFR (Non-African Ame 40 (>=60 mL/min/1.73m^2); Glucose 106 mg/dL (74-106); Potassium 4.6 mmol/L (3.5-5.1); Sodium 143 mmol/L (136-145); Troponin I High Sensitivity 21.4 pg/mL (4.0-51.3)
[2025-01-22 12:39] LABS: Lactate/Lactic Acid 4.9 mmol/L (0.4-2.0)
[2025-01-22] MEDS: CEFTRIAXONE 1,000 MG in 0.9 % SODIUM CHLORIDE 50 ML 100 MG IV (12:56)
[2025-01-22] MEDS: AZITHROMYCIN 500 MG in 0.9 % SODIUM CHLORIDE 250 ML 250 MG IV (13:31)
--- NOTE | 2025-01-22 13:55 | PC.NURSE ---
1300 - pt satting 88-89% on 4L NC -- informed dr richards of this, and he is okay with that SpO2 and would not like a different oxygen delivery.
[2025-01-22 16:16] LABS: Lactate/Lactic Acid 3.1 mmol/L (0.4-2.0)
--- NOTE | 2025-01-22 18:00 | DIETREC ---
Recommend 237 mL Ensure Original TID w/meals d/t loss of appetite and pt is underweight per BMI 17.9.
[2025-01-22] MEDS: ACETAMINOPHEN 500 MG TABLET 1000 MG PO ×2 (18:01→20:44)
[2025-01-22] MEDS: METHYLPREDNISOLONE SOD SUCC PF 125 MG/2 ML VIAL 60 MG IVP (18:02)
[2025-01-22] MEDS: ENOXAPARIN SODIUM 40 MG/0.4 ML SYRINGE SUBQ (18:02)
[2025-01-22] MEDS: 0.9 % SODIUM CHLORIDE 1,000 ML 80 ML IV (18:02)
[2025-01-22] MEDS: FLUTICASONE PROPIONATE 50 MCG NASAL SPRAY 2 SPRAY NS (18:02)
[2025-01-22] MEDS: IPRATROPIUM/ALBUTEROL SULFATE 3 ML AMPUL.NEB IH ×2 (19:58→23:23)
[2025-01-22] MEDS: TRAMADOL HCL 50 MG TABLET PO (20:43)
[2025-01-22] MEDS: CARVEDILOL 6.25 MG TABLET PO (20:44)
[2025-01-22] MEDS: POTASSIUM CHLORIDE 10 MEQ ER TABLET 20 MEQ PO (20:44)
[2025-01-22] MEDS: LEVOFLOXACIN IN DEXTROSE 5 % 750 MG/150 ML PREMIX 100 MG IV (20:44)
[2025-01-22] MEDS: CLONAZEPAM 0.5 MG TABLET PO (21:29)
[2025-01-22] MEDS: ATORVASTATIN CALCIUM 10 MG TABLET PO (21:29)
[2025-01-22] MEDS: BUDESONIDE 0.5 MG/2 ML AMPULE NEB IH (23:23)
[2025-01-23] VITALS (10 sets, daily range): BP systolic 77–138; BP diastolic 40–71; PULSE 94–120; TEMP 36.3–36.9; O2SAT 90–96
[2025-01-23] MEDS: LATANOPROST 0.005% 2.5 ML BOTTLE 1 DROP OP ×2 (00:17→22:58)
[2025-01-23] MEDS: METHYLPREDNISOLONE SOD SUCC PF 125 MG/2 ML VIAL 60 MG IVP ×4 (00:20→17:23)
[2025-01-23 05:24] LABS: Basophils Percent Auto 0.1 % (0.2-2.0); Hematocrit 34.8 % (36.0-48.0); Hemoglobin 11.2 g/dL (12.0-16.0); Immature Granulocytes Abs Auto 0.74 10^3/uL (0.00-0.03); Immature Granulocytes Pct Auto 2.9 % (0.0-0.5); Lymphocytes Absolute Auto 1.3 10^3/uL (1.2-3.8); Mean Corpuscular HGB Conc 32.2 g/dL (29.9-35.2); Mean Corpuscular Hemoglobin 31.4 pg (26.7-34.0); Mean Corpuscular Volume 97.5 fL (81.0-99.0); Mean Platelet Volume 10.3 fL (9.5-13.5); Monocytes Absolute Auto 0.8 10^3/uL (0.3-0.8); Neutrophils Absolute Auto 22.7 10^3/uL (1.4-6.5); Platelet Count 247 10^3/uL (150-450); Red Blood Count 3.57 10^6/uL (4.20-5.40); Red Cell Distribution Width 14.6 % (11.0-15.0); White Blood Count 25.6 10^3/uL (4.0-11.0)
[2025-01-23] MEDS: FLUTICASONE PROPIONATE 50 MCG NASAL SPRAY 2 SPRAY NS ×2 (05:27→17:24)
[2025-01-23] MEDS: 0.9 % SODIUM CHLORIDE 1,000 ML 80 ML IV ×2 (05:28→20:54)
[2025-01-23 05:50] LABS: Alanine Aminotransferase 15 U/L (14-59); Albumin Globulin Ratio 0.6; Albumin Level 2.3 g/dL (3.4-5.0); Alkaline Phosphatase 74 U/L (46-116); Anion Gap 13.9; Aspartate Amino Transferase 20 U/L (15-37); BUN Creatinine Ratio 28.8; Bilirubin Total 0.3 mg/dL (0.2-1.0); Calcium 9.2 mg/dL (8.5-10.1); Carbon Dioxide 27.8 mmol/L (21.0-32.0); Chloride 106 mmol/L (98-107); Estimated GFR (African America 41 (>=60 mL/min/1.73m^2); Estimated GFR (Non-African Ame 34 (>=60 mL/min/1.73m^2); Glucose 118 mg/dL (74-106); Potassium 5.7 mmol/L (3.5-5.1); Sodium 142 mmol/L (136-145); Total Protein 6.3 g/dL (6.4-8.2)
[2025-01-23] MEDS: IPRATROPIUM/ALBUTEROL SULFATE 3 ML AMPUL.NEB IH ×4 (08:04→19:34)
[2025-01-23] MEDS: LISINOPRIL 5 MG TABLET 2.5 MG PO (08:33)
[2025-01-23] MEDS: ENOXAPARIN SODIUM 40 MG/0.4 ML SYRINGE SUBQ (08:33)
[2025-01-23] MEDS: ASPIRIN 81 MG TAB.CHEW PO (08:34)
[2025-01-23] MEDS: CARVEDILOL 6.25 MG TABLET PO ×2 (08:34→20:54)
[2025-01-23] MEDS: TORSEMIDE 20 MG TABLET 10 MG PO (08:34)
[2025-01-23] MEDS: ONDANSETRON PF 4 MG/2 ML VIAL IV (09:36)
[2025-01-23] MEDS: CEFTRIAXONE 1,000 MG in 0.9 % SODIUM CHLORIDE 50 ML 100 MG IV (10:08)
--- NOTE | 2025-01-23 10:48 | PM.HP ---
HPI H&P: HPI History of Present Illness Chief complaint: SOB COUGHING R RIB PAIN, PNEUMONIA Narrative: 84 y/o female with a history of COPD to ER with SOB and cough. C/o worsening symptoms over past few days. Severe SOB with minimal exertion. Frequent cough and yellow sputum. Increased fatigue and weakness with exertion. To ER and SpO2 79% on room air. Patient does not wear home oxygen. WBC and lactate elevated. Vitals showed tachycardia and patient with increased work of breathing. Chest x-ray with pneumonia. Admitted for treatment. Started levaquin and rocephin for pneumonia. Started solu-medrol and duoneb for COPD exacerbation. Remains on 3 LPM. Opioid HPI Opioid Management Most Recent Pain and Opioid Data: Last Pain Scale 0 Today, 06:09 Last Pain Assessment 01/22/25, 14:20 Last MAR Pain Assessment 01/22/25, 18:01 Last ORT Total Score 0 01/22/25, 14:21 Last ORT Risk Category Low Risk 01/22/25, 14:21 Review of Systems ROS Constitutional Reports: fatigue; Denies: fever or chills Cardiovascular Denies: chest pain, palpitations or edema Respiratory Reports: shortness of breath, cough and wheezing Gastrointestinal Denies: abdominal pain, nausea, vomiting or diarrhea Genitourinary Denies: painful urination PFSH PFSH Medical History (Updated 01/23/25 @ 10:52 by Ranjit Peralta MD) Hypercholesteremia ?E78.00 - Pure hypercholesterolemia, unspecified (ICD-10) Macular degeneration ?H35.30 - Unspecified macular degeneration (ICD-10) COPD (chronic obstructive pulmonary disease) ?J44.9 - Chronic obstructive pulmonary disease, unspecified (ICD-10) Surgical History (Updated 01/22/25 @ 13:37 by Marleni Cooper RN) H/O: hysterectomy ?Z90.710 - Acquired absence of both cervix and uterus (ICD-10) History of appendectomy ?Z90.49 - Acquired absence of other specified parts of digestive tract (ICD-10) Family History (Updated 01/22/25 @ 15:03 by Karen Santiago) Mother Family history of CHF (congestive heart failure) Family history of stroke Family history of hypertension Family history of diabetes mellitus Sister No problems noted. Son Family history of CHF (congestive heart failure) Aunt Family history of myocardial infarction Grandmother Family history of stroke Grandfather Family history of COPD (chronic obstructive pulmonary disease) Social History (Updated 01/22/25 @ 15:04 by Karen Santiago) Within the past year, how often did you have a drink containing alcohol: never Within the past year, how often did you have six or more drinks on one occasion: less than monthly Score interpretation: A score less than 3 is consistent with normal alcohol consumption. Smoking status: Former smoker Second hand tobacco smoke exposure: No Non-prescribed substance use: denies use Previous occupational history: Retired from Known occupational exposures/hazards: No Highest level of school completed/degree received: high school graduate Do you want help with school or training: No Are you now , , , , never or living with a partner: In a typical week, how many times do you talk on the telephone with family, friends, or neighbors: 3 or more times per week How often do you get together with friends or relatives: 3 or more times per week How often do you attend scientology or orthodox services: 1-3 times per year Do you belong to any clubs or organizations such as scientology groups unions, [employer] or athletic groups, or school groups: no Total score: 1 Score interpretation: A score of less than or equal to 1 indicates the most socially isolated. Little interest or pleasure in doing things: not at all Feeling down, depressed, or hopeless: not at all Feel stressed/tense/nervous/anxious/difficulty sleeping: not at all Due to disability, difficulty making decisions: No Do you think of yourself as: straight/heterosexual Gender Identity: female Meds Home Medications and Allergies Home Medications ?Medication ?Instructions ?Recorded ?Confirmed ?Type albuterol sulfate 2.5 mg/3 mL 2.5 mg inhalation Q8H PRN 01/22/25 01/22/25 History (0.083 %) solution for nebulization shortness of breath or wheezing aspirin 81 mg chewable tablet 81 mg PO DAILY 01/22/25 01/22/25 History (Aspirin Childrens) brimonidine 0.2 %-timolol 0.5 % 1 drp ophthalmic (eye) Q12H 01/22/25 01/22/25 History eye drops carvedilol 6.25 mg tablet 6.25 mg PO Q12H 01/22/25 01/22/25 History clonazepam 0.5 mg tablet 0.5 mg PO .QHS 01/22/25 01/22/25 History fluticasone fur. 100 mcg-umeclid 1 inh inhalation DAILY 01/22/25 01/22/25 History 62.5 mcg-vilant 25 mcg inhalat.powder (Trelegy Ellipta) fluticasone propionate 50 2 spray intranasal Q12H 01/22/25 01/22/25 History mcg/actuation nasal spray,suspension latanoprost 0.005 % eye drops 1 drp ophthalmic (eye) .QHS 01/22/25 01/22/25 History lisinopril 2.5 mg tablet 2.5 mg PO DAILY 01/22/25 01/22/25 History potassium chloride 10 mEq 20 meq PO .QHS 01/22/25 01/22/25 History capsule,extended release pravastatin 40 mg tablet 40 mg PO .QHS 01/22/25 01/22/25 History torsemide 10 mg tablet 10 mg PO DAILY 01/22/25 01/22/25 History Allergies Allergy/AdvReac Type Severity Reaction Status Date / Time codeine Allergy Severe Nausea Verified 01/22/25 11:48 onabotulinumtoxinA (From Allergy Severe Anaphylaxis Verified 01/22/25 11:48 Botox) Exam Constitutional Vital Signs, click to edit/add: Last Vital Signs Temp 97.9 F 01/23/25 07:37 Pulse 97 H 01/23/25 07:37 Resp 20 01/23/25 07:37 BP 107/55 01/23/25 07:37 Pulse Ox 93 L 01/23/25 08:04 O2 Del Method Nasal Cannula 01/23/25 08:04 O2 Flow Rate 3 01/23/25 08:04 Documenting provider has reviewed patient's vital signs: yes Common normals: no apparent distress, oriented x3 and alert HENMT Common normals: normocephalic Eye Common normals: PERRL and EOMs intact bilaterally Respiratory Common normals: normal respiratory effort Auscultation: crackles (Bibasilar crackles) and diminished lung sounds Cardio Common normals: regular rate, regular rhythm, no gallops, no murmurs and no rub GI Common normals: Normal to inspection, nondistended, normoactive bowel sounds present and non-tender Extremity Common normals: no pedal edema Results Labs Labs: Short CBC 01/22/25 01/23/25 Range/Units 11:55 05:01 WBC 22.0 H 25.6 H (4.0-11.0) 10^3/uL Hgb 13.8 11.2 L (12.0-16.0) g/dL Hct 42.7 34.8 L (36.0-48.0) % Plt Count 308 247 (150-450) 10^3/uL BMP 01/22/25 01/23/25 11:55 05:01 Sodium 143 142 Potassium 4.6 5.7 H Chloride 103 106 Carbon Dioxide 27.9 27.8 BUN 29.0 H 42.0 H Creatinine 1.28 H 1.46 H Glucose 106 118 H Calcium 10.1 9.2 Liver Function 01/23/25 Range/Units 05:01 Total Bilirubin 0.3 (0.2-1.0) mg/dL AST 20 (15-37) U/L ALT 15 (14-59) U/L Alkaline Phosphatase 74 (46-116) U/L Albumin 2.3 L (3.4-5.0) g/dL Assessment and Plan Assessment and Plan (1) Right lower lobe pneumonia: Qualifiers: Pneumonia type: due to unspecified organism Qualified Code(s): J18.9 - Pneumonia, unspecified organism (2) Severe sepsis: (3) Acute hypoxic respiratory failure: (4) COPD with acute exacerbation: (5) Hypertension: Qualifiers: Hypertension type: primary hypertension Qualified Code(s): I10 - Essential (primary) hypertension (6) Paroxysmal SVT (supraventricular tachycardia): (7) CKD stage 3a, GFR 45-59 ml/min: Plan Patient with severe sepsis without shock due to pneumonia on presentation as evidenced by elevated WBC, lactate, tachycardia, hypoxia, and increased work of breathing. Continue antibiotics, steroids, and breathing treatments. SOB improved and currently not with labored breathing. Wean oxygen as tolerated. WBC improved and afebrile. Resume home medication. Start PT/OT for weakness. Monitor vitals and labs. Plan for at least a 2 midnight stay for inpatient medically necessary services.
[2025-01-23] MEDS: BUDESONIDE 0.5 MG/2 ML AMPULE NEB IH (11:28)
--- NOTE | 2025-01-23 13:53 | CM.NOTE ---
Discussed with pt PT and OT recommendations, pt at this time would like to discuss HH services with her granddaughter. Pt feels she is safe at home without any services. Pt lives with her granddaughter and there is someone home at all times if she would need anything. Pt at this time still drives during the day if needed and does not use any assistive devices for ambulation.
--- NOTE | 2025-01-23 13:56 | CM.NOTE ---
Important Messaage From Medicare discussed with pt, pt verbalizes understanding and signs paper. Original given to pt and copy placed in pt's chart.
[2025-01-23] MEDS: GUAIFENESIN 200 MG/DEXTROMETHORPHAN 20 MG 10 ML UNIT DOSE CUP PO (20:53)
[2025-01-23] MEDS: TRAMADOL HCL 50 MG TABLET PO (20:54)
[2025-01-23] MEDS: LEVOFLOXACIN IN DEXTROSE 5 % 750 MG/150 ML PREMIX 100 MG IV (20:54)
[2025-01-23] MEDS: [UNRECOGNIZED DRUG - REMARK] 1 EACH OP (20:55)
[2025-01-23] MEDS: ATORVASTATIN CALCIUM 10 MG TABLET PO (22:59)
[2025-01-23] MEDS: CLONAZEPAM 0.5 MG TABLET PO (22:59)
[2025-01-24] VITALS (41 sets, daily range): BP systolic 103–154; BP diastolic 56–84; PULSE 89–111; TEMP 36.4–36.9; O2SAT 76–100; BMI 18.9
[2025-01-24] MEDS: METHYLPREDNISOLONE SOD SUCC PF 125 MG/2 ML VIAL 60 MG IVP ×4 (00:35→17:42)
[2025-01-24] MEDS: FLUTICASONE PROPIONATE 50 MCG NASAL SPRAY 2 SPRAY NS ×2 (05:02→17:42)
[2025-01-24] MEDS: [UNRECOGNIZED DRUG - REMARK] 1 EACH OP ×2 (05:03→17:42)
[2025-01-24 05:30] LABS: Basophils Percent Auto 0.1 % (0.2-2.0); Hematocrit 33.6 % (36.0-48.0); Hemoglobin 10.6 g/dL (12.0-16.0); Immature Granulocytes Abs Auto 0.18 10^3/uL (0.00-0.03); Immature Granulocytes Pct Auto 1.1 % (0.0-0.5); Lymphocytes Absolute Auto 0.9 10^3/uL (1.2-3.8); Lymphocytes Percent Auto 5.4 % (20.5-60.0); Mean Corpuscular HGB Conc 31.5 g/dL (29.9-35.2); Mean Corpuscular Volume 98.2 fL (81.0-99.0); Mean Platelet Volume 10.7 fL (9.5-13.5); Monocytes Absolute Auto 0.5 10^3/uL (0.3-0.8); Monocytes Percent Auto 3.3 % (1.7-12.0); Neutrophils Absolute Auto 14.3 10^3/uL (1.4-6.5); Neutrophils Percent Auto 90.1 % (43.0-75.0); Platelet Count 258 10^3/uL (150-450); Red Blood Count 3.42 10^6/uL (4.20-5.40); Red Cell Distribution Width 14.5 % (11.0-15.0); White Blood Count 15.9 10^3/uL (4.0-11.0)
[2025-01-24 05:52] LABS: Alanine Aminotransferase 32 U/L (14-59); Albumin Globulin Ratio 0.5; Alkaline Phosphatase 79 U/L (46-116); Aspartate Amino Transferase 45 U/L (15-37); BUN Creatinine Ratio 43.3; Bilirubin Total 0.3 mg/dL (0.2-1.0); Calcium 8.4 mg/dL (8.5-10.1); Chloride 109 mmol/L (98-107); Estimated GFR (African America >60 (>=60 mL/min/1.73m^2); Estimated GFR (Non-African Ame 60 (>=60 mL/min/1.73m^2); Glucose 126 mg/dL (74-106); Sodium 143 mmol/L (136-145)
[2025-01-24] MEDS: IPRATROPIUM/ALBUTEROL SULFATE 3 ML AMPUL.NEB IH (07:49)
[2025-01-24] MEDS: CARVEDILOL 6.25 MG TABLET PO ×2 (08:06→21:48)
[2025-01-24] MEDS: LISINOPRIL 5 MG TABLET 2.5 MG PO (08:06)
[2025-01-24] MEDS: ASPIRIN 81 MG TAB.CHEW PO (08:06)
[2025-01-24] MEDS: ENOXAPARIN SODIUM 40 MG/0.4 ML SYRINGE SUBQ (08:06)
[2025-01-24] MEDS: TORSEMIDE 20 MG TABLET 10 MG PO (08:07)
--- NOTE | 2025-01-24 08:30 | CM.NOTE ---
Rounds made with Dr. Hernandez, no discharge today. RN attempting to wean off oxygen.
--- NOTE | 2025-01-24 09:17 | P.PN_ITS ---
Progress Note: Subjective Subjective Interval history: Patient states breathing is better, nurse that had seen her previous states his breathing is better and much improved from admission, still cough during the evaluation Exam Constitutional Vital Signs, click to edit/add: Last Vital Signs Temp 97.9 F 01/24/25 07:22 Pulse 98 H 01/24/25 07:50 Resp 18 01/24/25 07:22 BP 119/69 01/24/25 07:22 Pulse Ox 100 01/24/25 07:55 O2 Del Method Room Air 01/24/25 07:55 O2 Flow Rate 1.5 01/24/25 07:22 Documenting provider has reviewed patient's vital signs: yes Common normals: apparent distress (Cough during evaluation) Chest Common normals: inspection of chest normal Respiratory Common normals: abnormal respiratory effort (Cough during the evaluation) and not clear to ascultation bilaterally Auscultation: rales and rhonchi Cardio Common normals: regular rate, regular rhythm and no murmurs GI Common normals: Normal to inspection, nondistended, normoactive bowel sounds present and soft to palpation Extremity Common normals: normal to inspection, full ROM and no clubbing, cyanosis or edema Progress Note: Objective Labs Labs: Short CBC 01/24/25 Range/Units 04:56 WBC 15.9 H (4.0-11.0) 10^3/uL Hgb 10.6 L (12.0-16.0) g/dL Hct 33.6 L (36.0-48.0) % Plt Count 258 (150-450) 10^3/uL BMP 01/24/25 04:56 Sodium 143 Potassium 5.0 Chloride 109 H Carbon Dioxide 27.0 BUN 39.0 H Creatinine 0.90 Glucose 126 H Calcium 8.4 L Liver Function 01/24/25 Range/Units 04:56 Total Bilirubin 0.3 (0.2-1.0) mg/dL AST 45 H (15-37) U/L ALT 32 (14-59) U/L Alkaline Phosphatase 79 (46-116) U/L Albumin 2.0 L (3.4-5.0) g/dL Progress Note: A&P Assessment and Plan (1) Right lower lobe pneumonia: Qualifiers: Pneumonia type: due to unspecified organism Qualified Code(s): J18.9 - Pneumonia, unspecified organism (2) Severe sepsis: (3) Acute hypoxic respiratory failure: (4) COPD with acute exacerbation: (5) Hypertension: Qualifiers: Hypertension type: primary hypertension Qualified Code(s): I10 - Essential (primary) hypertension (6) Paroxysmal SVT (supraventricular tachycardia): (7) CKD stage 3a, GFR 45-59 ml/min: Plan Admission findings: Sinus tachycardia,, leukocytosis, lactic acidosis, hyperkalemia acute hypoxia secondary to right lower lobe pneumonia with right p leural effusion is lactic acidosis consistent with severe sepsis Right lower lobe pneumonia resulting in severe sepsis and acute hypoxic respiratory failure with acute exacerbation of COPD not oxygen dependent:- Continue with current antibiotics try to obtain sputum culture, try to wean supplemental oxygen, patient does not wear supplemental oxygen at home Right pleural effusion-check BNP for possible heart failure is a cause of the above Hypertension: Maintain current medications Paroxysmal SVT (supraventricular tachycardia):-Maintain current medications CKD stage 3a, GFR 45-59 ml/min: Has acute kidney injury stage I, baseline creatinine of 0.9, admission creatinine of 1.46 which is 167.2% above baseline with decreased urine output with resultant acute kidney injury stage I Generalized anxiety disorder continue with home medications History of chronic combined congestive heart failure-see above Admission status: Patient with severe sepsis secondary to pneumonia as acute hypoxia and lactic acidosis-possible acute exacerbation of systolic heart failure as well, labs are pending, medically necessary treatment to span 2 midnights, inpatient status
[2025-01-24] MEDS: SPIRONOLACTONE 25 MG TABLET PO (10:02)
[2025-01-24] MEDS: CEFTRIAXONE 1,000 MG in 0.9 % SODIUM CHLORIDE 50 ML 100 MG IV (10:02)
[2025-01-24] MEDS: BUDESONIDE 0.5 MG/2 ML AMPULE NEB IH ×2 (10:28→22:58)
[2025-01-24] MEDS: LEVALBUTEROL HCL 0.63 MG/3 ML VIAL.NEB IH ×3 (10:28→22:58)
--- NOTE | 2025-01-24 13:56 | CM.NOTE ---
Talked with pt again regarding HH care at discharge, pt continues to decline HH services.
[2025-01-24] MEDS: LATANOPROST 0.005% 2.5 ML BOTTLE 1 DROP OP ×3 (21:00→23:53)
[2025-01-24] MEDS: LEVOFLOXACIN IN DEXTROSE 5 % 750 MG/150 ML PREMIX 50 MG IV (21:45)
[2025-01-24] MEDS: CLONAZEPAM 0.5 MG TABLET PO (21:48)
[2025-01-24] MEDS: ATORVASTATIN CALCIUM 10 MG TABLET PO (21:48)
[2025-01-25] VITALS (80 sets, daily range): BP systolic 111–157; BP diastolic 65–93; PULSE 80–96; TEMP 36.3–36.6; O2SAT 81–99
[2025-01-25] MEDS: METHYLPREDNISOLONE SOD SUCC PF 125 MG/2 ML VIAL 60 MG IVP ×2 (04:13→17:20)
[2025-01-25] MEDS: LEVALBUTEROL HCL 0.63 MG/3 ML VIAL.NEB IH ×4 (04:42→22:26)
[2025-01-25] MEDS: FLUTICASONE PROPIONATE 50 MCG NASAL SPRAY 2 SPRAY NS ×2 (06:12→17:20)
[2025-01-25 06:22] LABS: Hematocrit 35.4 % (36.0-48.0); Hemoglobin 11.4 g/dL (12.0-16.0); Immature Granulocytes Abs Auto 0.07 10^3/uL (0.00-0.03); Immature Granulocytes Pct Auto 0.7 % (0.0-0.5); Lymphocytes Absolute Auto 0.9 10^3/uL (1.2-3.8); Lymphocytes Percent Auto 8.5 % (20.5-60.0); Mean Corpuscular HGB Conc 32.2 g/dL (29.9-35.2); Mean Corpuscular Hemoglobin 31.1 pg (26.7-34.0); Mean Corpuscular Volume 96.7 fL (81.0-99.0); Mean Platelet Volume 10.4 fL (9.5-13.5); Monocytes Absolute Auto 0.3 10^3/uL (0.3-0.8); Neutrophils Absolute Auto 9.1 10^3/uL (1.4-6.5); Neutrophils Percent Auto 87.8 % (43.0-75.0); Platelet Count 282 10^3/uL (150-450); Red Blood Count 3.66 10^6/uL (4.20-5.40); Red Cell Distribution Width 14.3 % (11.0-15.0); White Blood Count 10.3 10^3/uL (4.0-11.0)
[2025-01-25 06:39] LABS: Alanine Aminotransferase 45 U/L (14-59); Albumin Globulin Ratio 0.6; Albumin Level 2.2 g/dL (3.4-5.0); Alkaline Phosphatase 73 U/L (46-116); Anion Gap 13.6; Aspartate Amino Transferase 40 U/L (15-37); BUN Creatinine Ratio 41.5; Bilirubin Total 0.3 mg/dL (0.2-1.0); Calcium 8.6 mg/dL (8.5-10.1); Carbon Dioxide 27.7 mmol/L (21.0-32.0); Chloride 110 mmol/L (98-107); Estimated GFR (African America >60 (>=60 mL/min/1.73m^2); Estimated GFR (Non-African Ame >60 (>=60 mL/min/1.73m^2); Globulin 3.9 g/dL; Glucose 121 mg/dL (74-106); Potassium 4.3 mmol/L (3.5-5.1); Sodium 147 mmol/L (136-145); Total Protein 6.1 g/dL (6.4-8.2)
[2025-01-25] MEDS: ASPIRIN 81 MG TAB.CHEW PO (08:23)
[2025-01-25] MEDS: CARVEDILOL 6.25 MG TABLET PO ×2 (08:23→22:19)
[2025-01-25] MEDS: NYSTATIN 500,000 UNIT/5 ML ORAL.SUSP 500000 UNIT PO ×4 (08:23→22:23)
[2025-01-25] MEDS: LISINOPRIL 5 MG TABLET 2.5 MG PO (08:23)
[2025-01-25] MEDS: ENOXAPARIN SODIUM 40 MG/0.4 ML SYRINGE SUBQ (08:24)
[2025-01-25] MEDS: [UNRECOGNIZED DRUG - REMARK] 1 EACH OP ×2 (08:28→22:21)
--- NOTE | 2025-01-25 10:05 | P.PN_ITS ---
Progress Note: Subjective Subjective Interval history: Seems more dyspneic this morning, cough sounds more productive Exam Constitutional Vital Signs, click to edit/add: Last Vital Signs Temp 97.4 F L 01/25/25 04:50 Pulse 92 H 01/25/25 07:11 Resp 20 01/25/25 07:11 BP 153/82 H 01/25/25 07:11 Pulse Ox 90 L 01/25/25 07:11 O2 Del Method Nasal Cannula 01/25/25 07:11 O2 Flow Rate 2 01/25/25 07:11 FiO2 3 01/24/25 22:58 Documenting provider has reviewed patient's vital signs: yes Common normals: apparent distress (Cough during evaluation-unchanged) Chest Common normals: inspection of chest normal Respiratory Common normals: abnormal respiratory effort (Cough during the evaluation) and not clear to ascultation bilaterally Auscultation: rales (Persisting) and rhonchi (Upper airway noises) Cardio Common normals: regular rate, regular rhythm and no murmurs GI Common normals: Normal to inspection, nondistended, normoactive bowel sounds present and soft to palpation Extremity Common normals: normal to inspection, full ROM and no clubbing, cyanosis or edema Progress Note: Objective Labs Labs: Short CBC 01/25/25 Range/Units 05:51 WBC 10.3 (4.0-11.0) 10^3/uL Hgb 11.4 L (12.0-16.0) g/dL Hct 35.4 L (36.0-48.0) % Plt Count 282 (150-450) 10^3/uL BMP 01/25/25 05:51 Sodium 147 H Potassium 4.3 Chloride 110 H Carbon Dioxide 27.7 BUN 34.0 H Creatinine 0.82 Glucose 121 H Calcium 8.6 Liver Function 01/25/25 Range/Units 05:51 Total Bilirubin 0.3 (0.2-1.0) mg/dL AST 40 H (15-37) U/L ALT 45 (14-59) U/L Alkaline Phosphatase 73 (46-116) U/L Albumin 2.2 L (3.4-5.0) g/dL Progress Note: A&P Assessment and Plan (1) Right lower lobe pneumonia: Qualifiers: Pneumonia type: due to unspecified organism Qualified Code(s): J18.9 - Pneumonia, unspecified organism (2) Severe sepsis: (3) Acute hypoxic respiratory failure: (4) COPD with acute exacerbation: (5) Hypertension: Qualifiers: Hypertension type: primary hypertension Qualified Code(s): I10 - Essential (primary) hypertension (6) Paroxysmal SVT (supraventricular tachycardia): (7) CKD stage 3a, GFR 45-59 ml/min: Plan Admission findings: Sinus tachycardia, leukocytosis, lactic acidosis, hyperkalemia acute hypoxia secondary to right lower lobe pneumonia with right pleural effusion is lactic acidosis consistent with severe sepsis Right lower lobe pneumonia resulting in severe sepsis and acute hypoxic respiratory failure with acute exacerbation of COPD not oxygen dependent:- Maintain current medications Right pleural effusion due to acute systolic heart failure-BNP elevated, yesterday, went back and had some SS BNP from admission and was elevated further than, significantly elevated today, IV Bumex today, add nitrates maintain beta- sharron and ANNIE inhibitor Hypertension: See above Hyperkalemia-return to baseline Hyponatremia-secondary to fluid status-see above Elevated liver function test-secondary to passive congestion secondary to the acute systolic heart failure Paroxysmal SVT (supraventricular tachycardia):-Maintain current medications CKD stage 3a, GFR 45-59 ml/min: Improved to baseline Generalized anxiety disorder continue with home medications History of chronic combined congestive heart failure-see above Admission status: Patient with severe sepsis secondary to pneumonia as acute hypoxia and lactic acidosis-possible acute exacerbation of systolic heart failure as well, labs are pending, medically necessary treatment to span 2 midnights, inpatient status
[2025-01-25] MEDS: POLYETHYLENE GLYCOL 3350 17 GM POWDER PACKET PO (10:12)
[2025-01-25] MEDS: ISOSORBIDE MONONITRATE 30 MG TAB.ER.24H PO (10:12)
[2025-01-25] MEDS: BUMETANIDE 1 MG/4 ML VIAL IVP (10:12)
[2025-01-25] MEDS: CEFTRIAXONE 1,000 MG in 0.9 % SODIUM CHLORIDE 50 ML 100 MG IV (10:12)
[2025-01-25] MEDS: LACTULOSE 10 GM/15 ML UD CUP 30 GM PO (10:20)
[2025-01-25 11:08] LABS: Troponin I High Sensitivity 54.7 pg/mL (4.0-51.3)
[2025-01-25] MEDS: BUDESONIDE 0.5 MG/2 ML AMPULE NEB IH (11:33)
[2025-01-25 12:09] LABS: Troponin I High Sensitivity 40.9 pg/mL (4.0-51.3)
--- NOTE | 2025-01-25 14:00 | XR_ITS ---
[address] [address] Patient Name: ALEKSANDR SANCHEZ MRN: [id number] date: 1940 Sex: F Assigned Patient Location: [place] Current Patient Location: [place] Accession/Order Number: [id number] Exam Date: 01/25/2025 14:14 Report Date: 01/25/2025 14:15 At the request of: LILIANA CASTREJON MD Procedure: XR chest 2V Plain film chest 2 view HISTORY: CHF COMPARISON: 01/22/2025 FINDINGS: SUPPORT DEVICES: None POSTSURGICAL CHANGES: None HEART: Similar mild cardiomegaly PULMONARY BRENDAN: Hilar vascular prominence. MEDIASTINUM: Unremarkable LUNGS AND PLEURA: There are mild basilar pleural-parenchymal changes BONY STRUCTURES: Intact ADDITIONAL FINDINGS None XR/XR chest 2V IMPRESSION: CHF findings with a tiny pleural effusions Impression dictated by: Jose Kingston M.D. 01/25/2025 2:15 PM Dictation Location: [facility] Electronically authenticated by: [id number] Y Date: 01/25/2025 14:15
[2025-01-25] MEDS: LATANOPROST 0.005% 2.5 ML BOTTLE 1 DROP OP (22:20)
[2025-01-25] MEDS: CLONAZEPAM 0.5 MG TABLET PO (22:20)
[2025-01-25] MEDS: ATORVASTATIN CALCIUM 10 MG TABLET PO (22:20)
[2025-01-26] VITALS (13 sets, daily range): BP systolic 82–140; BP diastolic 48–72; PULSE 84–108; TEMP 36.4–36.8; O2SAT 89–98
[2025-01-26] MEDS: LEVALBUTEROL HCL 0.63 MG/3 ML VIAL.NEB IH ×4 (04:46→22:35)
[2025-01-26] MEDS: NYSTATIN 500,000 UNIT/5 ML ORAL.SUSP 500000 UNIT PO ×4 (05:12→21:23)
[2025-01-26] MEDS: METHYLPREDNISOLONE SOD SUCC PF 125 MG/2 ML VIAL 60 MG IVP (05:12)
[2025-01-26] MEDS: FLUTICASONE PROPIONATE 50 MCG NASAL SPRAY 2 SPRAY NS ×2 (05:12→17:26)
[2025-01-26 06:29] LABS: Hematocrit 34.7 % (36.0-48.0); Hemoglobin 11.4 g/dL (12.0-16.0); Immature Granulocytes Abs Auto 0.06 10^3/uL (0.00-0.03); Immature Granulocytes Pct Auto 0.6 % (0.0-0.5); Lymphocytes Absolute Auto 1.2 10^3/uL (1.2-3.8); Lymphocytes Percent Auto 11.3 % (20.5-60.0); Mean Corpuscular HGB Conc 32.9 g/dL (29.9-35.2); Mean Corpuscular Hemoglobin 31.4 pg (26.7-34.0); Mean Corpuscular Volume 95.6 fL (81.0-99.0); Mean Platelet Volume 10.3 fL (9.5-13.5); Monocytes Absolute Auto 0.7 10^3/uL (0.3-0.8); Monocytes Percent Auto 6.3 % (1.7-12.0); Neutrophils Absolute Auto 8.7 10^3/uL (1.4-6.5); Neutrophils Percent Auto 81.8 % (43.0-75.0); Platelet Count 298 10^3/uL (150-450); Red Blood Count 3.63 10^6/uL (4.20-5.40); Red Cell Distribution Width 14.1 % (11.0-15.0); White Blood Count 10.7 10^3/uL (4.0-11.0)
[2025-01-26 07:03] LABS: Alanine Aminotransferase 44 U/L (14-59); Albumin Globulin Ratio 0.6; Albumin Level 2.3 g/dL (3.4-5.0); Alkaline Phosphatase 72 U/L (46-116); Anion Gap 10.9; Aspartate Amino Transferase 28 U/L (15-37); Bilirubin Total 0.3 mg/dL (0.2-1.0); Calcium 8.4 mg/dL (8.5-10.1); Carbon Dioxide 31.1 mmol/L (21.0-32.0); Chloride 108 mmol/L (98-107); Estimated GFR (African America >60 (>=60 mL/min/1.73m^2); Estimated GFR (Non-African Ame >60 (>=60 mL/min/1.73m^2); Globulin 3.6 g/dL; Glucose 122 mg/dL (74-106); Sodium 146 mmol/L (136-145); Total Protein 5.9 g/dL (6.4-8.2); Troponin I High Sensitivity 35.5 pg/mL (4.0-51.3)
[2025-01-26] MEDS: LISINOPRIL 5 MG TABLET 2.5 MG PO (08:41)
[2025-01-26] MEDS: CARVEDILOL 6.25 MG TABLET PO ×2 (08:41→21:24)
[2025-01-26] MEDS: ASPIRIN 81 MG TAB.CHEW PO (08:41)
[2025-01-26] MEDS: POLYETHYLENE GLYCOL 3350 17 GM POWDER PACKET PO (08:41)
[2025-01-26] MEDS: ISOSORBIDE MONONITRATE 30 MG TAB.ER.24H PO (08:42)
[2025-01-26] MEDS: ENOXAPARIN SODIUM 40 MG/0.4 ML SYRINGE SUBQ (08:42)
[2025-01-26] MEDS: [UNRECOGNIZED DRUG - REMARK] 1 EACH OP ×2 (08:43→21:24)
--- NOTE | 2025-01-26 10:37 | P.PN_ITS ---
Progress Note: Subjective Subjective Interval history: Does seem more comfortable with her breathing today Exam Constitutional Vital Signs, click to edit/add: Last Vital Signs Temp 98.2 F 01/26/25 08:00 Pulse 108 H 01/26/25 08:00 Resp 18 01/26/25 08:00 BP 130/70 01/26/25 08:27 Pulse Ox 89 L 01/26/25 09:18 O2 Del Method Room Air 01/26/25 09:18 O2 Flow Rate 2 01/26/25 05:22 FiO2 2 01/25/25 16:14 Documenting provider has reviewed patient's vital signs: yes Common normals: apparent distress (Cough during evaluation-unchanged) Chest Common normals: inspection of chest normal Respiratory Common normals: abnormal respiratory effort (Less cough today) and not clear to ascultation bilaterally Auscultation: rales (Persisting) and rhonchi (Upper airway noises) Cardio Common normals: regular rate, regular rhythm and no murmurs GI Common normals: Normal to inspection, nondistended, normoactive bowel sounds present and soft to palpation Extremity Common normals: normal to inspection, full ROM and no clubbing, cyanosis or edema Progress Note: Objective Labs Labs: Short CBC 01/26/25 Range/Units 05:55 WBC 10.7 (4.0-11.0) 10^3/uL Hgb 11.4 L (12.0-16.0) g/dL Hct 34.7 L (36.0-48.0) % Plt Count 298 (150-450) 10^3/uL BMP 01/26/25 05:55 Sodium 146 H Potassium 4.0 Chloride 108 H Carbon Dioxide 31.1 BUN 30.0 H Creatinine 0.79 Glucose 122 H Calcium 8.4 L Liver Function 01/26/25 Range/Units 05:55 Total Bilirubin 0.3 (0.2-1.0) mg/dL AST 28 (15-37) U/L ALT 44 (14-59) U/L Alkaline Phosphatase 72 (46-116) U/L Albumin 2.3 L (3.4-5.0) g/dL Progress Note: A&P Assessment and Plan (1) Right lower lobe pneumonia: Qualifiers: Pneumonia type: due to unspecified organism Qualified Code(s): J18.9 - Pneumonia, unspecified organism (2) Severe sepsis: (3) Acute hypoxic respiratory failure: (4) COPD with acute exacerbation: (5) Hypertension: Qualifiers: Hypertension type: primary hypertension Qualified Code(s): I10 - Essential (primary) hypertension (6) Paroxysmal SVT (supraventricular tachycardia): (7) CKD stage 3a, GFR 45-59 ml/min: Plan Admission findings: Sinus tachycardia, leukocytosis, lactic acidosis, hyperkalemia acute hypoxia secondary to right lower lobe pneumonia with right pleural effusion is lactic acidosis consistent with severe sepsis Right lower lobe pneumonia resulting in severe sepsis and acute hypoxic respiratory failure with acute exacerbation of COPD not oxygen dependent: Try to wean supplemental oxygen today she was in the upper 90s on 2 L, Right pleural effusion due to acute systolic heart failure-BNP is slightly improved today, repeat IV Bumex at 2 mg, only 1500 cc out yesterday, echo pending for tomorrow Hypertension: See above Hyperkalemia-return to baseline Hyponatremia-secondary to fluid status-see above-improved Elevated liver function test-secondary to passive congestion secondary to the acute systolic heart failure Paroxysmal SVT (supraventricular tachycardia):-Maintain current medications Hyperglycemia-up somewhat today, continue to follow CKD stage 3a, GFR 45-59 ml/min: Improved to baseline Iron deficiency anemia-stable Generalized anxiety disorder continue with home medications History of chronic combined congestive heart failure-see above Admission status: Patient with severe sepsis secondary to pneumonia as acute hypoxia and lactic acidosis-possible acute exacerbation of systolic heart failure as well, labs are pending, medically necessary treatment to span 2 midnights, inpatient status
[2025-01-26] MEDS: BUMETANIDE 1 MG/4 ML VIAL 2 MG IVP (11:00)
[2025-01-26] MEDS: 0.9 % SODIUM CHLORIDE 250 ML 10 ML IV (11:01)
[2025-01-26] MEDS: CEFTRIAXONE 1,000 MG in 0.9 % SODIUM CHLORIDE 50 ML 100 MG IV (11:01)
[2025-01-26] MEDS: ACETAMINOPHEN 500 MG TABLET 1000 MG PO ×2 (11:48→21:23)
[2025-01-26] MEDS: CLONAZEPAM 0.5 MG TABLET PO (21:23)
[2025-01-26] MEDS: LEVOFLOXACIN IN DEXTROSE 5 % 750 MG/150 ML PREMIX 100 MG IV (21:23)
[2025-01-26] MEDS: ATORVASTATIN CALCIUM 10 MG TABLET PO (21:23)
[2025-01-26] MEDS: GUAIFENESIN 200 MG/DEXTROMETHORPHAN 20 MG 10 ML UNIT DOSE CUP PO (21:23)
[2025-01-26] MEDS: LATANOPROST 0.005% 2.5 ML BOTTLE 1 DROP OP (21:24)
[2025-01-27] VITALS (29 sets, daily range): BP systolic 97–156; BP diastolic 55–85; PULSE 61–106; TEMP 36.3–36.4; O2SAT 84–96
[2025-01-27] MEDS: LEVALBUTEROL HCL 0.63 MG/3 ML VIAL.NEB IH ×4 (04:11→22:57)
[2025-01-27] MEDS: FLUTICASONE PROPIONATE 50 MCG NASAL SPRAY 2 SPRAY NS ×2 (05:20→18:02)
[2025-01-27] MEDS: NYSTATIN 500,000 UNIT/5 ML ORAL.SUSP 500000 UNIT PO ×4 (05:20→21:18)
[2025-01-27 05:26] LABS: Basophils Percent Auto 0.1 % (0.2-2.0); Eosinophils Percent Auto 0.1 % (0.9-7.0); Hematocrit 34.3 % (36.0-48.0); Hemoglobin 11.2 g/dL (12.0-16.0); Immature Granulocytes Abs Auto 0.07 10^3/uL (0.00-0.03); Immature Granulocytes Pct Auto 0.5 % (0.0-0.5); Lymphocytes Absolute Auto 1.5 10^3/uL (1.2-3.8); Lymphocytes Percent Auto 10.4 % (20.5-60.0); Mean Corpuscular HGB Conc 32.7 g/dL (29.9-35.2); Mean Corpuscular Hemoglobin 31.3 pg (26.7-34.0); Mean Corpuscular Volume 95.8 fL (81.0-99.0); Mean Platelet Volume 10.4 fL (9.5-13.5); Monocytes Absolute Auto 1.4 10^3/uL (0.3-0.8); Neutrophils Absolute Auto 11.2 10^3/uL (1.4-6.5); Neutrophils Percent Auto 78.9 % (43.0-75.0); Platelet Count 283 10^3/uL (150-450); Red Blood Count 3.58 10^6/uL (4.20-5.40); White Blood Count 14.3 10^3/uL (4.0-11.0)
[2025-01-27 06:01] LABS: Alanine Aminotransferase 46 U/L (14-59); Albumin Level 2.2 g/dL (3.4-5.0); Alkaline Phosphatase 60 U/L (46-116); Anion Gap 11.2; Aspartate Amino Transferase 40 U/L (15-37); BUN Creatinine Ratio 46.1; Bilirubin Total 0.3 mg/dL (0.2-1.0); Calcium 8.5 mg/dL (8.5-10.1); Carbon Dioxide 32.2 mmol/L (21.0-32.0); Chloride 107 mmol/L (98-107); Estimated GFR (African America >60 (>=60 mL/min/1.73m^2); Estimated GFR (Non-African Ame 52 (>=60 mL/min/1.73m^2); Globulin 3.4 g/dL; Glucose 87 mg/dL (74-106); Potassium 4.4 mmol/L (3.5-5.1); Sodium 146 mmol/L (136-145); Total Protein 5.6 g/dL (6.4-8.2)
[2025-01-27 06:02] LABS: Albumin Globulin Ratio 0.6
[2025-01-27 06:16] LABS: Troponin I High Sensitivity 2174.8 pg/mL (4.0-51.3)
--- NOTE | 2025-01-27 06:17 | P.PN_ITS ---
Progress Note: Subjective Subjective Interval history: Breathing little better than previous days Exam Constitutional Vital Signs, click to edit/add: Last Vital Signs Temp 97.6 F 01/27/25 04:27 Pulse 67 01/27/25 04:27 Resp 18 01/27/25 04:27 BP 127/79 01/27/25 04:27 Pulse Ox 91 L 01/27/25 05:18 O2 Del Method Nasal Cannula 01/27/25 05:18 O2 Flow Rate 1 01/27/25 05:18 FiO2 2 01/25/25 16:14 Documenting provider has reviewed patient's vital signs: yes Common normals: apparent distress (Cough during evaluation-unchanged) Chest Common normals: inspection of chest normal Respiratory Common normals: abnormal respiratory effort (Less cough today) and not clear to ascultation bilaterally Auscultation: rales (Persisting) and rhonchi (Improved from previous day) Cardio Common normals: regular rate, regular rhythm and no murmurs GI Common normals: Normal to inspection, nondistended, normoactive bowel sounds present and soft to palpation Extremity Common normals: normal to inspection, full ROM and no clubbing, cyanosis or edema Progress Note: Objective Labs Labs: Short CBC 01/26/25 01/27/25 Range/Units 05:55 04:55 WBC 10.7 14.3 H (4.0-11.0) 10^3/uL Hgb 11.4 L 11.2 L (12.0-16.0) g/dL Hct 34.7 L 34.3 L (36.0-48.0) % Plt Count 298 283 (150-450) 10^3/uL BMP 01/26/25 01/27/25 05:55 04:55 Sodium 146 H 146 H Potassium 4.0 4.4 Chloride 108 H 107 Carbon Dioxide 31.1 32.2 H BUN 30.0 H 47.0 H Creatinine 0.79 1.02 Glucose 122 H 87 Calcium 8.4 L 8.5 Liver Function 01/26/25 01/27/25 Range/Units 05:55 04:55 Total Bilirubin 0.3 0.3 (0.2-1.0) mg/dL AST 28 40 H (15-37) U/L ALT 44 46 (14-59) U/L Alkaline Phosphatase 72 60 (46-116) U/L Albumin 2.3 L 2.2 L (3.4-5.0) g/dL Progress Note: A&P Assessment and Plan (1) Right lower lobe pneumonia: Qualifiers: Pneumonia type: due to unspecified organism Qualified Code(s): J18.9 - Pneumonia, unspecified organism (2) Severe sepsis: (3) Acute hypoxic respiratory failure: (4) COPD with acute exacerbation: (5) Hypertension: Qualifiers: Hypertension type: primary hypertension Qualified Code(s): I10 - Essential (primary) hypertension (6) Paroxysmal SVT (supraventricular tachycardia): (7) CKD stage 3a, GFR 45-59 ml/min: Plan Admission findings: Sinus tachycardia, leukocytosis, lactic acidosis, hyperkalemia acute hypoxia secondary to right lower lobe pneumonia with right pleural effusion is lactic acidosis consistent with severe sepsis Right lower lobe pneumonia resulting in severe sepsis and acute hypoxic respiratory failure with acute exacerbation of COPD - pt is not oxygen dependent: Try to wean supplemental oxygen Right pleural effusion due to acute systolic heart failure the significant elevation in high-sensitivity troponin today, will repeat troponin, consult cardiology, echocardiogram pending Hypertension: See above Hyperkalemia-return to baseline L Hypernatremia-secondary to fluid status-see above-stable Elevated liver function test-secondary to passive congestion secondary to the acute systolic heart failure Paroxysmal SVT (supraventricular tachycardia):-Maintain current medications, EKG computer read as atrial fibrillation but to me it looks the same as previous EKG read by cardiology as normal sinus rhythm short OK interval Hyperglycemia-up somewhat today, continue to follow CKD stage 3a, GFR 45-59 ml/min: Improved to baseline Iron deficiency anemia-stable Generalized anxiety disorder continue with home medications History of chronic combined congestive heart failure-see above Admission status: Patient with severe sepsis secondary to pneumonia as acute hypoxia and lactic acidosis-possible acute exacerbation of systolic heart failure as well, labs are pending, medically necessary treatment to span 2 midnights, inpatient status
--- NOTE | 2025-01-27 06:21 | ECG_ITS ---
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 Measurements Intervals [place] Rate: 89 P: [place]: 128 QRS: 85 QRSD: 138 T: 52 QT: 428 QTc: 522 Interpretive Statements Sinus rhythm 13970 with occasional ventricular premature complexes (Unreliable analysis due to noise) RIGHT BUNDLE BRANCH BLOCK [120+ ms QRS DURATION, UPRIGHT V1, 40+ ms S IN I/aVL/V4/V5/V6] WARNING: DATA QUALITY MAY AFFECT INTERPRETATION Compared to ECG 01/22/2025 11:49:34 No significant changes Electronically Signed On 01-27-2025 17:54:56 EDT by ANUSHKA DE LOS SANTOS M.D.
[2025-01-27] MEDS: AZITHROMYCIN 250 MG TABLET 500 MG PO ×2 (07:04→10:29)
--- NOTE | 2025-01-27 08:56 | CM.NOTE ---
Rounds made with Dr. Hernandez, pt will have echo today and dry cans back tender consult. Pt continues to require oxygen @1L NC. No discharge today.
[2025-01-27 09:03] LABS: Troponin I High Sensitivity 1833.7 pg/mL (4.0-51.3)
--- NOTE | 2025-01-27 09:18 | CM.NOTE ---
2nd Important Message From Medicare discussed with pt, pt denies questions or concerns.
--- NOTE | 2025-01-27 10:03 | CA_ITS ---
Patient Name: ALEKSANDR SANCHEZ MR#: [id number] : 1940 Exam Date: 01/27/2025 Ordering Doctor: DR LILIANA CASTREJON . ECHOCARDIOGRAM REPORT PROCEDURE: CA ECHO DOPPLER COMPLETE INDICATIONS: chf, elevated BNP and TROP, COPD, hypertension COMPARISON: None. DESCRIPTION: COMPLETE ECHOCARDIOGRAM Real-time transthoracic echocardiography with 2D, M-mode, spectral and color flow Doppler performed. QUALITY: Technical quality was good. LEFT VENTRICLE: Normal chamber size. Mild concentric left ventricular hypertrophy. The septum is abnormal and motion consistent with right ventricular pressure/volume overload. LV EF: Calculated left ventricular ejection fraction is 58%. Normal left ventricular ejection fraction, (>55%). DIASTOLIC: Diastolic function is indeterminate. ATRIAL SEPTUM: Visually appears intact. LEFT ATRIUM: Moderate dilatation. RIGHT ATRIUM: Severe dilatation. RIGHT VENTRICLE: Moderate dilatation. Moderately reduced right ventricular systolic function. TRICUSPID VALVE: Normal mobility and thickness. No stenosis with moderate to severe regurgitation. Doppler studies reveal moderately (45-60) elevated right sided pressures. RVSP 54 mmHg MITRAL VALVE: Normal mobility and thickness. No evidence of mitral valve stenosis. There is no mitral annular calcification. Mild to moderate mitral regurgitation. AORTIC VALVE: Normal trileaflet appearance. Thickened aortic valve. Normal leaflet mobility. No evidence of aortic valve stenosis. No aortic regurgitation. AORTIC ROOT: Normal diameter and appearance, measuring 3.3 cm. PULMONIC VALVE: Normal thickness and mobility. No stenosis. No regurgitation. PERICARDIUM: No evidence of pericardial effusion. IVC: IVC is normal in size, does not collapse. PLEURA: CONCLUSION: 1. Mild concentric left ventricular hypertrophy with normal systolic function. LVEF is estimated at 55 to 60%. 2. Mildly dilated right ventricle with moderately reduced systolic function. 3. Moderate to severe biatrial dilatation. 4. Mild to moderate mitral regurgitation. 5. Moderate to severe tricuspid regurgitation. 6. Moderately elevated right-sided pressures. RVSP is 54 mmHg. 7. No pericardial effusion. Adult Echocardiography Procedure Report Left Ventricle LVEDD (3.7 - 5.6 cm): 3.81 cm LVESD (2.2 - 4.0 cm): 2.76 cm LVIVS thickness (0.6 - 1.2 cm): 1.20 cm LVPW thickness (0.5 - 1.0 cm): 1.12 cm e': 0.10 m/s E - e': 3.47 LVOT Max Gradient: 1.59 mm[Hg] LVOT Area (cm2): 0.63 m/s Peak Velocity (LVOT): 0.63 m/s Mean Velocity (LVOT): 0.42 m/s LVOT Diameter 2.11 cm Left Atrium LA Volume Index (2D A2C): 38.48 ml/m2 Left Atrium Systolic Dimension: 3.88 cm Mitral Valve MV E to A Ratio: 0.77 Mitral Valve A-Wave Peak Velocity: 0.47 m/s Mitral Valve E-Wave Peak Velocity: 0.36 m/s Right Ventricle Aorta AO Root Diam: 3.27 cm Aortic Valve AoV Area (Peak Elijah): 2.05 cm2, 2.05 cm2 AoV Area (VTI): 2.23 cm2, 2.23 cm2 Peak Velocity(Antegrade Flow): 1.08 m/s Peak Gradient(Antegrade Flow): 4.65 mm[Hg] Mean Velocity(Antegrade Flow): 0.70 m/s Mean Gradient(Antegrade Flow): 2.30 mm[Hg] Velocity Time Integral: 18.97 cm Tricuspid Valve Peak Velocity (Regurgitant Flow): 2.57 m/s, 3.26 m/s, 3.21 m/s, 3.26 m/s, 3.41 m/s Pulmonic Valve Mean Gradient: 0.90 mm[Hg] Mean Velocity: 0.44 m/s Peak Velocity: 0.71 m/s, 0.70 m/s Peak Gradient: 1.93 mm[Hg], 2.01 mm[Hg] Right Atrium Right Atrium Systolic Pressure: 62.35 ml, 62.35 ml Dictated by: Varinder Cruz M.D. on 01/27/2025 at 17:41 Approved by: Varinder Cruz M.D. on 01/27/2025 at 17:46
[2025-01-27] MEDS: ENOXAPARIN SODIUM 40 MG/0.4 ML SYRINGE SUBQ (10:28)
[2025-01-27] MEDS: ISOSORBIDE MONONITRATE 30 MG TAB.ER.24H PO (10:28)
[2025-01-27] MEDS: CARVEDILOL 6.25 MG TABLET PO ×2 (10:28→21:18)
[2025-01-27] MEDS: PREDNISONE 20 MG TABLET PO (10:29)
[2025-01-27] MEDS: BUMETANIDE 1 MG/4 ML VIAL 2 MG IVP ×2 (10:30→21:19)
[2025-01-27] MEDS: ASPIRIN 81 MG TAB.CHEW PO (10:30)
[2025-01-27] MEDS: LISINOPRIL 5 MG TABLET 2.5 MG PO (10:31)
[2025-01-27] MEDS: [UNRECOGNIZED DRUG - REMARK] 1 EACH OP ×2 (10:32→21:20)
[2025-01-27 12:14] LABS: Troponin I High Sensitivity 1529.6 pg/mL (4.0-51.3)
[2025-01-27 14:28] LABS: Troponin I High Sensitivity 1351.6 pg/mL (4.0-51.3)
--- NOTE | 2025-01-27 14:29 | ECG_ITS ---
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 Measurements Intervals [place] Rate: 84 P: 74 [place]: 122 QRS: 58 QRSD: 134 T: 25 QT: 398 QTc: 439 Interpretive Statements 1100 Sinus rhythm 2330 Nonspecific intraventricular conduction block 7300 Indeterminate axis 9150 abnormal ECG Compared to ECG 01/27/2025 07:15:19 Indeterminate axis now present Ventricular premature complex(es) no longer present Right bundle-branch block no longer present Electronically Signed On 01-27-2025 18:00:46 EDT by ANUSHKA DE LOS SANTOS M.D.
[2025-01-27 17:32] LABS: Troponin I High Sensitivity 1075.6 pg/mL (4.0-51.3)
--- NOTE | 2025-01-27 18:33 | PC.NURSE ---
01/27/[address] Cruz
--- NOTE | 2025-01-27 19:03 | PM.CACN ---
History of Present Illness History of Present Illness Consult date: 01/27/25 Requesting physician: Caleb Hernandez Consult reason: congestive heart failure Chief complaint: SOB COUGHING R RIB PAIN, PNEUMONIA Narrative: This is a 84-year-old woman who has history of COPD and is admitted to the hospital with shortness of breath cough and hypoxia and picture of pneumonia. I am consulted because of elevated troponin and BNP levels. She reports that she has been having worsening cough and shortness of breath. She was admitted to the hospital and since starting management including antibiotics and oxygen her symptoms have improved. She reports right-sided chest pain located in the lateral aspect of the chest. No pain in other locations. She has no syncope or dizziness. She has bilateral lower extremity edema. She had significant requirement for oxygen supplementation during the hospitalization. Blood testing revealed elevation of troponin which continues to rise slowly. Her NT proBNP is significantly elevated. Her ECG showed irregular heart rate and suspicion of atrial fibrillation. By my review and reading of all her ECGs, she has only sinus rhythm with PACs and right bundle branch block with no evidence of atrial fibrillation seen. Today she reports that she has been feeling better. She is anxious about being in the hospital and wants to leave to attend the wedding of her granddaughter towards the end of the week. Review of Systems ROS Status of ROS 10 or more systems reviewed and unremarkable except as noted in history and below Cardiovascular Reports: chest pain, edema and shortness of breath with exertion Respiratory Reports: shortness of breath and cough Musculoskeletal Reports: extremity swelling [facility] Medical History (Updated 01/27/25 @ 19:14 by ANUSHKA DE LOS SANTOS) Hypercholesteremia ?E78.00 - Pure hypercholesterolemia, unspecified (ICD-10) Macular degeneration ?H35.30 - Unspecified macular degeneration (ICD-10) COPD (chronic obstructive pulmonary disease) ?J44.9 - Chronic obstructive pulmonary disease, unspecified (ICD-10) Surgical History (Updated 01/22/25 @ 13:37 by Marleni Cooper RN) H/O: hysterectomy ?Z90.710 - Acquired absence of both cervix and uterus (ICD-10) History of appendectomy ?Z90.49 - Acquired absence of other specified parts of digestive tract (ICD-10) Family History (Updated 01/22/25 @ 15:03 by Karen Santiago) Mother Family history of CHF (congestive heart failure) Family history of stroke Family history of hypertension Family history of diabetes mellitus Sister No problems noted. Son Family history of CHF (congestive heart failure) Aunt Family history of myocardial infarction Grandmother Family history of stroke Grandfather Family history of COPD (chronic obstructive pulmonary disease) Social History (Updated 01/22/25 @ 15:04 by Karen Santiago) Within the past year, how often did you have a drink containing alcohol: never Within the past year, how often did you have six or more drinks on one occasion: less than monthly Score interpretation: A score less than 3 is consistent with normal alcohol consumption. Smoking status: Former smoker Second hand tobacco smoke exposure: No Non-prescribed substance use: denies use Previous occupational history: Retired from Known occupational exposures/hazards: No Highest level of school completed/degree received: high school graduate Do you want help with school or training: No Are you now , , , , never or living with a partner: In a typical week, how many times do you talk on the telephone with family, friends, or neighbors: 3 or more times per week How often do you get together with friends or relatives: 3 or more times per week How often do you attend bahai or judaism services: 1-3 times per year Do you belong to any clubs or organizations such as bahai groups unions, [employer] or athletic groups, or school groups: no Total score: 1 Score interpretation: A score of less than or equal to 1 indicates the most socially isolated. Little interest or pleasure in doing things: not at all Feeling down, depressed, or hopeless: not at all Feel stressed/tense/nervous/anxious/difficulty sleeping: not at all Due to disability, difficulty making decisions: No Do you think of yourself as: straight/heterosexual Gender Identity: female Meds Home Medications and Allergies Home Medications ?Medication ?Instructions ?Recorded ?Confirmed ?Type albuterol sulfate 2.5 mg/3 mL 2.5 mg inhalation Q8H PRN 01/22/25 01/22/25 History (0.083 %) solution for nebulization shortness of breath or wheezing aspirin 81 mg chewable tablet 81 mg PO DAILY 01/22/25 01/22/25 History (Aspirin Childrens) brimonidine 0.2 %-timolol 0.5 % 1 drp ophthalmic (eye) Q12H 01/22/25 01/22/25 History eye drops carvedilol 6.25 mg tablet 6.25 mg PO Q12H 01/22/25 01/22/25 History clonazepam 0.5 mg tablet 0.5 mg PO .QHS 01/22/25 01/22/25 History fluticasone fur. 100 mcg-umeclid 1 inh inhalation DAILY 01/22/25 01/22/25 History 62.5 mcg-vilant 25 mcg inhalat.powder (Trelegy Ellipta) fluticasone propionate 50 2 spray intranasal Q12H 01/22/25 01/22/25 History mcg/actuation nasal spray,suspension latanoprost 0.005 % eye drops 1 drp ophthalmic (eye) .QHS 01/22/25 01/22/25 History lisinopril 2.5 mg tablet 2.5 mg PO DAILY 01/22/25 01/22/25 History potassium chloride 10 mEq 20 meq PO .QHS 01/22/25 01/22/25 History capsule,extended release pravastatin 40 mg tablet 40 mg PO .QHS 01/22/25 01/22/25 History torsemide 10 mg tablet 10 mg PO DAILY 01/22/25 01/22/25 History Allergies Allergy/AdvReac Type Severity Reaction Status Date / Time codeine Allergy Severe Nausea Verified 01/22/25 11:48 onabotulinumtoxinA (From Allergy Severe Anaphylaxis Verified 01/22/25 11:48 Botox) Exam Constitutional Vital Signs, click to edit/add: Last Vital Signs Temp 97.5 F L 01/27/25 16:00 Pulse 100 H 01/27/25 18:00 Resp 20 01/27/25 16:00 BP 156/80 H 01/27/25 16:00 Pulse Ox 92 L 01/27/25 16:08 O2 Del Method Nasal Cannula 01/27/25 16:08 O2 Flow Rate 1 01/27/25 16:08 FiO2 2 01/25/25 16:14 Documenting provider has reviewed patient's vital signs: yes General appearance: comfortable and ill appearing Eye Common normals: conjunctivae normal Chest Common normals: inspection of chest normal Respiratory Common normals: normal respiratory effort Auscultation: rales and rhonchi Cardio Rhythm: abnormal rhythm regularly irregular Heart sounds: murmur (Left lower sternal border, grade 2/6.) GI Common normals: Normal to inspection, nondistended, normoactive bowel sounds present Extremity General: edema (Bilateral +2 edema) Neuro Common normals: oriented x3, no focal motor deficits and no sensory deficits noted Gait (neuro): unable to assess gait Psych Memory/cognition: memory grossly intact Insight: insight good Judgement: judgment good Results Labs and Meds Lab results: Cardiac Enzymes 01/27/25 Range/Units 04:55 AST 40 H (15-37) U/L CBC 01/27/25 Range/Units 04:55 WBC 14.3 H (4.0-11.0) 10^3/uL RBC 3.58 L (4.20-5.40) 10^6/uL Hgb 11.2 L (12.0-16.0) g/dL Hct 34.3 L (36.0-48.0) % Plt Count 283 (150-450) 10^3/uL Neut # (Auto) 11.2 H (1.4-6.5) 10^3/uL Lymph # (Auto) 1.5 (1.2-3.8) 10^3/uL [place] # (Auto) 1.4 H (0.3-0.8) 10^3/uL Eos # (Auto) 0.0 (0.0-0.7) 10^3/uL Baso # (Auto) 0.0 (0.0-0.1) 10^3/uL Comprehensive Metabolic Panel 01/27/25 Range/Units 04:55 Sodium 146 H (136-145) mmol/L Potassium 4.4 (3.5-5.1) mmol/L Chloride 107 (98-107) mmol/L Carbon Dioxide 32.2 H (21.0-32.0) mmol/L BUN 47.0 H (7.0-18.0) mg/dL Creatinine 1.02 (0.55-1.02) mg/dL Glucose 87 (74-106) mg/dL Calcium 8.5 (8.5-10.1) mg/dL AST 40 H (15-37) U/L ALT 46 (14-59) U/L Alkaline Phosphatase 60 (46-116) U/L Total Protein 5.6 L (6.4-8.2) g/dL Albumin 2.2 L (3.4-5.0) g/dL Intake and Output 01/27/25 01/27/25 01/27/25 07:59 15:59 23:59 Intake Total 180 / 180 Output Total 100 / 100 1800 / 2100 300 / 2100 Balance -100 / 100 -1620 / -1920 -300 / -1920 Intake: Oral 50 / 50 IV 130 / 130 0.9 % Sodium Chloride 250 ml @ 130 / 130 10 mls/hr IV .Q24H PRN Rx#: [id number] Output: Urine 100 / 100 1800 / 2100 300 / 2100 Other: # Voids 1 # Bowel Movements 1 1 # Incontinent Bowel Movements 1 Imaging and Cardiology Echo: report reviewed (Normal left ventricular systolic function LVEF 55 to 60%. Dilated right ventricle with moderately reduced systolic function. Mild to moderate mitral and moderate-severe tricuspid regurgitation. RVSP 54 mmHg.) and image reviewed Assessment and Plan Assessment and Plan (1) Acute diastolic heart failure: (2) Elevated troponin: (3) Electrocardiogram abnormal: (4) Elevated brain natriuretic peptide (BNP) level: (5) PAC (premature atrial contraction): (6) Right lower lobe pneumonia: Qualifiers: Pneumonia type: due to unspecified organism Qualified Code(s): J18.9 - Pneumonia, unspecified organism (7) Severe sepsis: (8) Acute hypoxic respiratory failure: (9) COPD with acute exacerbation: (10) Hypertension: Qualifiers: Hypertension type: primary hypertension Qualified Code(s): I10 - Essential (primary) hypertension (11) Paroxysmal SVT (supraventricular tachycardia): (12) CKD stage 3a, GFR 45-59 ml/min: Plan 1. Acute diastolic heart failure: This is evident by the findings on the echocardiogram, the symptoms as well as the elevated BNP. She needs diuretic therapy and I agree with the current plan for drip diuresis with close follow-up of the renal function and electrolytes. Depending on response she could be started on low-dose spironolactone 12.5 mg daily. 2. Elevated troponin: This represents type II myocardial infarction in the setting of pneumonia and decompensated heart failure. There is no evidence of acute coronary syndrome and there is absence of ischemic symptoms and ischemic ECG changes. 3. Sinus rhythm with PACs and right bundle branch block: I reviewed all her strips. There is no atrial fibrillation. The PACs are aggravated in the setting of pneumonia and hypoxia. 4. Pneumonia: Continue treatment with antibiotics as you are doing. She will require at least 2 to 3 days in the hospital to ensure stability before she is able to be safely discharged from the hospital.
[2025-01-27] MEDS: ENSURE ORIGINAL 237 ML BOTTLE PO (21:18)
[2025-01-27] MEDS: GUAIFENESIN 200 MG/DEXTROMETHORPHAN 20 MG 10 ML UNIT DOSE CUP PO (21:18)
[2025-01-27] MEDS: CLONAZEPAM 0.5 MG TABLET PO (21:18)
[2025-01-27] MEDS: ATORVASTATIN CALCIUM 10 MG TABLET PO (21:18)
[2025-01-27] MEDS: LATANOPROST 0.005% 2.5 ML BOTTLE 1 DROP OP (21:20)
[2025-01-28] VITALS (23 sets, daily range): BP systolic 91–160; BP diastolic 48–80; PULSE 76–120; TEMP 36.3–36.7; O2SAT 90–94
[2025-01-28] MEDS: LEVALBUTEROL HCL 0.63 MG/3 ML VIAL.NEB IH ×4 (04:01→23:14)
[2025-01-28] MEDS: FLUTICASONE PROPIONATE 50 MCG NASAL SPRAY 2 SPRAY NS ×2 (05:04→17:13)
[2025-01-28] MEDS: NYSTATIN 500,000 UNIT/5 ML ORAL.SUSP 500000 UNIT PO ×4 (05:04→22:10)
[2025-01-28 05:32] LABS: Basophils Percent Auto 0.2 % (0.2-2.0); Eosinophils Absolute Auto 0.1 10^3/uL (0.0-0.7); Eosinophils Percent Auto 0.5 % (0.9-7.0); Hematocrit 38.9 % (36.0-48.0); Hemoglobin 12.8 g/dL (12.0-16.0); Immature Granulocytes Abs Auto 0.11 10^3/uL (0.00-0.03); Immature Granulocytes Pct Auto 0.9 % (0.0-0.5); Lymphocytes Absolute Auto 1.9 10^3/uL (1.2-3.8); Lymphocytes Percent Auto 15.8 % (20.5-60.0); Mean Corpuscular HGB Conc 32.9 g/dL (29.9-35.2); Mean Corpuscular Hemoglobin 30.9 pg (26.7-34.0); Mean Platelet Volume 10.3 fL (9.5-13.5); Monocytes Absolute Auto 1.3 10^3/uL (0.3-0.8); Monocytes Percent Auto 10.8 % (1.7-12.0); Neutrophils Absolute Auto 8.7 10^3/uL (1.4-6.5); Neutrophils Percent Auto 71.8 % (43.0-75.0); Platelet Count 312 10^3/uL (150-450); Red Blood Count 4.14 10^6/uL (4.20-5.40); Red Cell Distribution Width 13.7 % (11.0-15.0); White Blood Count 12.2 10^3/uL (4.0-11.0)
--- NOTE | 2025-01-28 05:57 | P.PN_ITS ---
Progress Note: Subjective Subjective Interval history: Patient awake alert and answers questions appropriately, daughter at bedside, she states her breathing is a little bit better than previous day, does have some cough during the evaluation but not nearly as bad as 2 days ago Exam Constitutional Vital Signs, click to edit/add: Last Vital Signs Temp 97.3 F L 01/28/25 04:00 Pulse 76 01/28/25 04:00 Resp 18 01/28/25 04:00 BP 129/68 01/28/25 04:00 Pulse Ox 94 L 01/28/25 04:00 O2 Del Method Nasal Cannula 01/28/25 04:00 O2 Flow Rate 1 01/28/25 04:00 FiO2 2 01/25/25 16:14 Documenting provider has reviewed patient's vital signs: yes General appearance: comfortable and ill appearing Eye Common normals: conjunctivae normal Chest Common normals: inspection of chest normal Respiratory Common normals: normal respiratory effort Auscultation: rales (Improved from previous day) and rhonchi (Much improved over the last 2 days) Cardio Rhythm: abnormal rhythm regularly irregular Heart sounds: murmur (Left lower sternal border, grade 2/6.) GI Common normals: Normal to inspection, nondistended, normoactive bowel sounds present Extremity General: edema (Bilateral +2 edema) Neuro Common normals: oriented x3, no focal motor deficits and no sensory deficits noted Gait (neuro): unable to assess gait Psych Memory/cognition: memory grossly intact Insight: insight good Judgement: judgment good Progress Note: Objective Labs Labs: Short CBC 01/28/25 Range/Units 04:50 WBC 12.2 H (4.0-11.0) 10^3/uL Hgb 12.8 (12.0-16.0) g/dL Hct 38.9 (36.0-48.0) % Plt Count 312 (150-450) 10^3/uL BMP 01/27/25 04:55 Sodium 146 H Potassium 4.4 Chloride 107 Carbon Dioxide 32.2 H BUN 47.0 H Creatinine 1.02 Glucose 87 Calcium 8.5 Liver Function 01/27/25 Range/Units 04:55 Total Bilirubin 0.3 (0.2-1.0) mg/dL AST 40 H (15-37) U/L ALT 46 (14-59) U/L Alkaline Phosphatase 60 (46-116) U/L Albumin 2.2 L (3.4-5.0) g/dL Progress Note: A&P Assessment and Plan (1) Acute diastolic heart failure: (2) Elevated troponin: (3) Electrocardiogram abnormal: (4) Elevated brain natriuretic peptide (BNP) level: (5) PAC (premature atrial contraction): (6) Right lower lobe pneumonia: Qualifiers: Pneumonia type: due to unspecified organism Qualified Code(s): J18.9 - Pneumonia, unspecified organism (7) Severe sepsis: (8) Acute hypoxic respiratory failure: (9) COPD with acute exacerbation: (10) Hypertension: Qualifiers: Hypertension type: primary hypertension Qualified Code(s): I10 - Essential (primary) hypertension (11) Paroxysmal SVT (supraventricular tachycardia): (12) CKD stage 3a, GFR 45-59 ml/min: Plan Admission findings: Sinus tachycardia, leukocytosis, lactic acidosis, hyperkalemia acute hypoxia secondary to right lower lobe pneumonia with right pleural effusion is lactic acidosis consistent with severe sepsis Right lower lobe pneumonia resulting in severe sepsis and acute hypoxic respiratory failure with acute exacerbation of COPD -able to wean supplemental oxygen somewhat down to 1 L Right pleural effusion due to acute systolic heart failure the significant elevation in high-sensitivity troponin today, consistent with acute NSTEMI type II-echocardiogram shows good ejection fraction, repeat diuresis again today add Aldactone, 3.5 L output yesterday, if he can be weaned off of supplemental oxygen today likely discharge tomorrow Hypertension: See above Hyperkalemia-return to baseline Echocardiogram with LVH, severe atrial enlargement and severe tricuspid regurgitation with increased pulmonary hypertension-medical management as outlined above for the heart failure Hypernatremia-secondary to fluid status-up slightly today Elevated liver function test-secondary to passive congestion secondary to the acute systolic heart failure Paroxysmal SVT (supraventricular tachycardia):-Heart rate stable Hyperglycemia-up somewhat today, continue to follow CKD stage 3a, GFR 45-59 ml/min: Improved to baseline, despite diuresis Iron deficiency anemia-stable Generalized anxiety disorder continue with home medications History of chronic combined congestive heart failure-see above Admission status: Patient with severe sepsis secondary to pneumonia as acute hypoxia and lactic acidosis-possible acute exacerbation of systolic heart failure as well, labs are pending, medically necessary treatment to span 2 midnights, inpatient status
[2025-01-28 06:06] LABS: Alanine Aminotransferase 42 U/L (14-59); Albumin Globulin Ratio 0.6; Albumin Level 2.3 g/dL (3.4-5.0); Alkaline Phosphatase 65 U/L (46-116); Anion Gap 9.7; Aspartate Amino Transferase 30 U/L (15-37); BUN Creatinine Ratio 45.6; Bilirubin Total 0.4 mg/dL (0.2-1.0); Calcium 9.1 mg/dL (8.5-10.1); Carbon Dioxide 35.1 mmol/L (21.0-32.0); Chloride 106 mmol/L (98-107); Estimated GFR (African America >60 (>=60 mL/min/1.73m^2); Estimated GFR (Non-African Ame >60 (>=60 mL/min/1.73m^2); Globulin 3.7 g/dL; Glucose 80 mg/dL (74-106); Potassium 3.8 mmol/L (3.5-5.1); Sodium 147 mmol/L (136-145)
[2025-01-28 06:21] LABS: Troponin I High Sensitivity 870.6 pg/mL (4.0-51.3)
[2025-01-28] MEDS: ENSURE ORIGINAL 237 ML BOTTLE PO ×2 (08:18→22:10)
--- NOTE | 2025-01-28 08:18 | CM.NOTE ---
Rounds made with Dr. Hernandez. Dr. Hernandez reviews changes and plan of care to Ebony and family. Attempt to wean oxygen. No discharge today.
[2025-01-28] MEDS: POLYETHYLENE GLYCOL 3350 17 GM POWDER PACKET PO (08:19)
[2025-01-28] MEDS: GUAIFENESIN 200 MG/DEXTROMETHORPHAN 20 MG 10 ML UNIT DOSE CUP PO (08:20)
[2025-01-28] MEDS: SPIRONOLACTONE 25 MG TABLET PO (08:20)
[2025-01-28] MEDS: ENOXAPARIN SODIUM 40 MG/0.4 ML SYRINGE SUBQ (08:20)
[2025-01-28] MEDS: ISOSORBIDE MONONITRATE 30 MG TAB.ER.24H PO (08:20)
[2025-01-28] MEDS: ASPIRIN 81 MG TAB.CHEW PO (08:21)
[2025-01-28] MEDS: CARVEDILOL 6.25 MG TABLET PO ×2 (08:21→22:10)
[2025-01-28] MEDS: AZITHROMYCIN 250 MG TABLET 500 MG PO (08:21)
[2025-01-28] MEDS: LISINOPRIL 5 MG TABLET 2.5 MG PO (08:21)
[2025-01-28] MEDS: PREDNISONE 20 MG TABLET PO (08:22)
[2025-01-28] MEDS: [UNRECOGNIZED DRUG - REMARK] 1 EACH OP ×2 (08:24→22:14)
[2025-01-28] MEDS: BUMETANIDE 1 MG/4 ML VIAL 2 MG IVP ×2 (09:18→22:11)
--- NOTE | 2025-01-28 10:38 | SWNOTE1 ---
SW and I met with pt in room. SW discussed PT/OT recommendation of home health. Pt voiced she lives at home with her grandson and grandaughter who are helpful to her. Pt is independent, does not use any DME, and still drives during the day. Pt refused home health. SW assured that if pt changes her mind her PCP will be able to set up home health from the office.
[2025-01-28] MEDS: ATORVASTATIN CALCIUM 10 MG TABLET PO (22:10)
[2025-01-28] MEDS: CLONAZEPAM 0.5 MG TABLET PO (22:10)
[2025-01-28] MEDS: LATANOPROST 0.005% 2.5 ML BOTTLE 1 DROP OP (22:13)
[2025-01-29] VITALS (22 sets, daily range): BP systolic 91–145; BP diastolic 45–72; PULSE 71–128; TEMP 36.4–36.6; O2SAT 84–93
[2025-01-29] MEDS: LEVALBUTEROL HCL 0.63 MG/3 ML VIAL.NEB IH (04:00)
[2025-01-29 05:35] LABS: Basophils Percent Auto 0.1 % (0.2-2.0); Eosinophils Absolute Auto 0.2 10^3/uL (0.0-0.7); Eosinophils Percent Auto 1.7 % (0.9-7.0); Hematocrit 37.8 % (36.0-48.0); Hemoglobin 12.5 g/dL (12.0-16.0); Immature Granulocytes Abs Auto 0.14 10^3/uL (0.00-0.03); Immature Granulocytes Pct Auto 1.2 % (0.0-0.5); Lymphocytes Absolute Auto 2.5 10^3/uL (1.2-3.8); Lymphocytes Percent Auto 20.6 % (20.5-60.0); Mean Corpuscular HGB Conc 33.1 g/dL (29.9-35.2); Mean Corpuscular Hemoglobin 30.9 pg (26.7-34.0); Mean Corpuscular Volume 93.3 fL (81.0-99.0); Monocytes Absolute Auto 1.1 10^3/uL (0.3-0.8); Monocytes Percent Auto 9.2 % (1.7-12.0); Neutrophils Absolute Auto 8.1 10^3/uL (1.4-6.5); Neutrophils Percent Auto 67.2 % (43.0-75.0); Platelet Count 348 10^3/uL (150-450); Red Blood Count 4.05 10^6/uL (4.20-5.40); Red Cell Distribution Width 13.7 % (11.0-15.0)
[2025-01-29 06:05] LABS: Alanine Aminotransferase 34 U/L (14-59); Albumin Globulin Ratio 0.6; Albumin Level 2.3 g/dL (3.4-5.0); Alkaline Phosphatase 67 U/L (46-116); Anion Gap 8.6; Aspartate Amino Transferase 19 U/L (15-37); BUN Creatinine Ratio 48.6; Bilirubin Total 0.5 mg/dL (0.2-1.0); Calcium 9.3 mg/dL (8.5-10.1); Chloride 103 mmol/L (98-107); Estimated GFR (African America >60 (>=60 mL/min/1.73m^2); Estimated GFR (Non-African Ame >60 (>=60 mL/min/1.73m^2); Globulin 3.7 g/dL; Glucose 88 mg/dL (74-106); Potassium 3.6 mmol/L (3.5-5.1); Sodium 145 mmol/L (136-145)
--- NOTE | 2025-01-29 06:51 | P.PN_ITS ---
Progress Note: Subjective Subjective Interval history: Patient with still some cough today but overall feels improved Exam Constitutional Vital Signs, click to edit/add: Last Vital Signs Temp 97.5 F L 01/29/25 04:00 Pulse 77 01/29/25 06:01 Resp 18 01/29/25 04:01 BP 109/45 L 01/29/25 04:00 Pulse Ox 93 L 01/29/25 04:01 O2 Del Method Nasal Cannula 01/29/25 04:01 O2 Flow Rate 1 01/29/25 04:01 FiO2 2 01/25/25 16:14 Documenting provider has reviewed patient's vital signs: yes Common normals: no apparent distress Lymph Lymphatic: no lymphadenopathy noted Chest Common normals: inspection of chest normal Respiratory Common normals: normal respiratory effort and no retractions Auscultation: rales (Improved from previous day) Cardio Common normals: regular rate, regular rhythm and no murmurs Progress Note: Objective Labs Labs: Short CBC 01/29/25 Range/Units 05:13 WBC 12.0 H (4.0-11.0) 10^3/uL Hgb 12.5 (12.0-16.0) g/dL Hct 37.8 (36.0-48.0) % Plt Count 348 (150-450) 10^3/uL BMP 01/29/25 05:13 Sodium 145 Potassium 3.6 Chloride 103 Carbon Dioxide 37.0 H BUN 35.0 H Creatinine 0.72 Glucose 88 Calcium 9.3 Liver Function 01/29/25 Range/Units 05:13 Total Bilirubin 0.5 (0.2-1.0) mg/dL AST 19 (15-37) U/L ALT 34 (14-59) U/L Alkaline Phosphatase 67 (46-116) U/L Albumin 2.3 L (3.4-5.0) g/dL Progress Note: A&P Assessment and Plan (1) Acute diastolic heart failure: (2) Elevated troponin: (3) Electrocardiogram abnormal: (4) Elevated brain natriuretic peptide (BNP) level: (5) PAC (premature atrial contraction): (6) Right lower lobe pneumonia: Qualifiers: Pneumonia type: due to unspecified organism Qualified Code(s): J18.9 - Pneumonia, unspecified organism (7) Severe sepsis: (8) Acute hypoxic respiratory failure: (9) COPD with acute exacerbation: (10) Hypertension: Qualifiers: Hypertension type: primary hypertension Qualified Code(s): I10 - Essential (primary) hypertension (11) Paroxysmal SVT (supraventricular tachycardia): (12) CKD stage 3a, GFR 45-59 ml/min: Plan Admission findings: Sinus tachycardia, leukocytosis, lactic acidosis, hyperkalemia acute hypoxia secondary to right lower lobe pneumonia with right pleural effusion is lactic acidosis consistent with severe sepsis Right lower lobe pneumonia resulting in severe sepsis and acute hypoxic respiratory failure with acute exacerbation of COPD -able to wean supplemental oxygen somewhat down to 1 L, try to wean further today Right pleural effusion due to acute systolic heart failure the significant elevation in high-sensitivity troponin today, consistent with acute NSTEMI type II-echocardiogram shows good ejection fraction, repeat diuresis again today add Aldactone, 2.6 L out yesterday, continue treatment again today, trying to wean off of supplemental oxygen as she did not present with supplemental oxygen may need to send home with supplemental oxygen if not able to improve with 1 more day of IV therapy with the Aldactone, BNP and high-sensitivity troponin are improving Hypertension: See above Hyperkalemia-return to baseline Echocardiogram with LVH, severe atrial enlargement and severe tricuspid regurgitation with increased pulmonary hypertension-medical management as outlined above for the heart failure Hypernatremia-improved today to normal Elevated liver function test-secondary to passive congestion secondary to the acute systolic heart failure Paroxysmal SVT (supraventricular tachycardia):-Heart rate stable Hyperglycemia-up somewhat today, continue to follow CKD stage 3a, GFR 45-59 ml/min: Improved to baseline, despite diuresis Iron deficiency anemia-stable, improved with diuresis Generalized anxiety disorder continue with home medications History of chronic combined congestive heart failure-see above Admission status: Patient with severe sepsis secondary to pneumonia as acute hypoxia and lactic acidosis-possible acute exacerbation of systolic heart fa ilure as well, labs are pending, medically necessary treatment to span 2 midnights, inpatient status ?
[2025-01-29 07:11] LABS: Troponin I High Sensitivity 535.6 pg/mL (4.0-51.3)
--- NOTE | 2025-01-29 08:39 | CM.NOTE ---
Rounds made with Dr. Hernandez, pt continues to require 1 L NC. No discharge today. Pt continues having dyspnea with minimal activity.
[2025-01-29] MEDS: ENOXAPARIN SODIUM 40 MG/0.4 ML SYRINGE SUBQ (08:42)
[2025-01-29] MEDS: ISOSORBIDE MONONITRATE 30 MG TAB.ER.24H PO (08:43)
[2025-01-29] MEDS: SPIRONOLACTONE 25 MG TABLET PO (08:43)
[2025-01-29] MEDS: CARVEDILOL 6.25 MG TABLET PO ×2 (08:44→21:30)
[2025-01-29] MEDS: PREDNISONE 20 MG TABLET PO (08:44)
[2025-01-29] MEDS: ASPIRIN 81 MG TAB.CHEW PO (08:44)
[2025-01-29] MEDS: LISINOPRIL 5 MG TABLET 2.5 MG PO (08:44)
[2025-01-29] MEDS: [UNRECOGNIZED DRUG - REMARK] 1 EACH OP ×2 (08:45→21:31)
[2025-01-29] MEDS: ENSURE ORIGINAL 237 ML BOTTLE PO (08:45)
[2025-01-29] MEDS: BUMETANIDE 1 MG/4 ML VIAL 2 MG IVP ×2 (10:09→21:31)
[2025-01-29] MEDS: NYSTATIN 500,000 UNIT/5 ML ORAL.SUSP 500000 UNIT PO ×3 (11:07→21:30)
[2025-01-29] MEDS: BENZONATATE 100 MG CAPSULE 200 MG PO ×2 (11:07→20:14)
--- NOTE | 2025-01-29 11:14 | PT.DAILY ---
Physical Therapy Daily Note PT Daily Note/Assess Start: 01/29/25 11:11 Freq: Status: Active Protocol: Document 01/29/25 11:11 TNOY (Rec: 01/29/25 11:14 TONY [id number]) Physical Therapy Daily Note/Assessment Time In/Time Out Time In 10:50 Time Out 11:01 Pain In Pain N/A Pain Out Pain N/A Subjective Subjective Supine upon arrival. On room at 86%. Consulted nursing to turn O2 on for amb to 1L. Therapeutic Exercise Time Therapeutic Exercise 4 Minutes (minutes) Therapeutic Exercise 0 Units Therapeutic Exercise Treatment Therapeutic Exercise Bilat LE strengthening ex complete while sitting EOB Treatment unsupported 10x ea without LOB. SpO2 90% with 1L O2. Therapeutic Activity Time Therapeutic Activity 6 Minutes (minutes) Therapeutic Activity 1 Units Therapeutic Activity Treatment Bed Mobility Ability Standby Assistance Chair Transfer Standby Assistance Ability Therapeutic Activity Supine>sit SBA with increased time. Pt amb 10' MAINTENANCE TEAM MEMBER then Comments offered RW. Pt agreeable RW will be safer option when returning home until she increases her strength/ endurance. Pt amb 140' with RW, SBA with assist for portable O2 tank. Pt demonstrates min SOB with amb. Spo2 87% upon completion and recovers to 93% within 30 sec of seated rest. Returned to supine SBA with increased time. Call light is within reach and needs met. Total Physical Therapy Time Total Therapy 10 Minutes Total Physical 1 Therapy Units Summary Daily Note Summary Min drop in Spo2 with amb. More confident and steady with RW - would recommend for home use.
[2025-01-29] MEDS: DIGOXIN 500 MCG/2 ML AMPUL 250 MCG IV ×2 (13:39→20:14)
--- NOTE | 2025-01-29 14:46 | CM.NOTE ---
Discussed with pt COPD and importance of preventative medicine and f/u appointments. Pt has been involved with pulmonary rehab in the past, pt does follow with Dr. Blackburn for pulmonology. Pt has f/u appt with Bere in May. Discussed with pt about going back to pulmonary rehab, pt is interested in returning. Pt states that really did help my breathing. Pt given pamphlet and will ask her PCP when she has f/u appt.
[2025-01-29] MEDS: FLUTICASONE PROPIONATE 50 MCG NASAL SPRAY 2 SPRAY NS (17:24)
--- NOTE | 2025-01-29 18:23 | NUTR.NU ---
Follow-up visit w/pt in room w/family present. Pt states ?hospital food? is not to her liking, but she is getting enough to eat during her stay. She named several items that she enjoys, e.g., chicken tenders, mashed potatoes, broccoli, cauliflower, and mandarin oranges. She also has her daughter bring in food at times. Pt is feeling better and looking forward to returning home. She denies any dietary needs at this time. Will continue to follow PRN.
--- NOTE | 2025-01-29 20:28 | RESP.RT ---
Pt denies need for breathing tx at this time.
[2025-01-29] MEDS: CLONAZEPAM 0.5 MG TABLET PO (21:30)
[2025-01-29] MEDS: ATORVASTATIN CALCIUM 10 MG TABLET PO (21:30)
[2025-01-29] MEDS: LATANOPROST 0.005% 2.5 ML BOTTLE 1 DROP OP (21:31)
[2025-01-30] VITALS (28 sets, daily range): BP systolic 67–161; BP diastolic 33–68; PULSE 72–98; TEMP 36.3–36.6; O2SAT 84–92
[2025-01-30] MEDS: BENZONATATE 100 MG CAPSULE 200 MG PO ×3 (04:57→21:03)
[2025-01-30] MEDS: ACETAMINOPHEN 500 MG TABLET 1000 MG PO ×2 (04:58→11:47)
[2025-01-30] MEDS: FLUTICASONE PROPIONATE 50 MCG NASAL SPRAY 2 SPRAY NS ×2 (05:01→18:14)
[2025-01-30] MEDS: NYSTATIN 500,000 UNIT/5 ML ORAL.SUSP 500000 UNIT PO ×4 (05:01→21:03)
[2025-01-30 05:16] LABS: Digoxin 1.3 ng/mL (0.9-2.0)
--- NOTE | 2025-01-30 06:00 | P.PN_ITS ---
Progress Note: Subjective Subjective Interval history: Patient with still some cough today but overall feels improved Exam Constitutional Vital Signs, click to edit/add: Last Vital Signs Temp 98 F 01/30/25 04:00 Pulse 76 01/30/25 04:00 Resp 20 01/30/25 04:00 BP 128/53 01/30/25 04:00 Pulse Ox 90 L 01/30/25 04:35 O2 Del Method Nasal Cannula 01/30/25 04:35 O2 Flow Rate 1 01/30/25 04:35 FiO2 2 01/25/25 16:14 Progress Note: Objective Labs Labs: [facility] 01/29/25 05:13 Sodium 145 Potassium 3.6 Chloride 103 Carbon Dioxide 37.0 H BUN 35.0 H Creatinine 0.72 Glucose 88 Calcium 9.3 Liver Function 01/29/25 Range/Units 05:13 Total Bilirubin 0.5 (0.2-1.0) mg/dL AST 19 (15-37) U/L ALT 34 (14-59) U/L Alkaline Phosphatase 67 (46-116) U/L Albumin 2.3 L (3.4-5.0) g/dL Progress Note: A&P Assessment and Plan (1) Acute diastolic heart failure: (2) Elevated troponin: (3) Electrocardiogram abnormal: (4) Elevated brain natriuretic peptide (BNP) level: (5) PAC (premature atrial contraction): (6) Right lower lobe pneumonia: Qualifiers: Pneumonia type: due to unspecified organism Qualified Code(s): J18.9 - Pneumonia, unspecified organism (7) Severe sepsis: (8) Acute hypoxic respiratory failure: (9) COPD with acute exacerbation: (10) Hypertension: Qualifiers: Hypertension type: primary hypertension Qualified Code(s): I10 - Essential (primary) hypertension (11) Paroxysmal SVT (supraventricular tachycardia): (12) CKD stage 3a, GFR 45-59 ml/min: Plan Admission findings: Sinus tachycardia, leukocytosis, lactic acidosis, hyperkalemia acute hypoxia secondary to right lower lobe pneumonia with right pleural effusion is lactic acidosis consistent with severe sepsis Right lower lobe pneumonia resulting in severe sepsis and acute hypoxic respiratory failure with acute exacerbation of COPD -able to wean supplemental oxygen somewhat down to 1 L, try to wean further today Right pleural effusion due to acute systolic heart failure the significant el evation in high-sensitivity troponin today, consistent with acute NSTEMI type II-echocardiogram shows good ejection fraction, repeat diuresis again today add Aldactone, 2.6 L out yesterday, continue treatment again today, trying to wean off of supplemental oxygen as she did not present with supplemental oxygen may need to send home with supplemental oxygen if not able to improve with 1 more day of IV therapy with the Aldactone, BNP and high-sensitivity troponin are improving Hypertension: See above Hyperkalemia-return to baseline Echocardiogram with LVH, severe atrial enlargement and severe tricuspid regurgitation with increased pulmonary hypertension-medical management as outlined above for the heart failure Hypernatremia-improved today to normal Elevated liver function test-secondary to passive congestion secondary to the acute systolic heart failure Paroxysmal SVT (supraventricular tachycardia):-Heart rate stable Hyperglycemia-up somewhat today, continue to follow CKD stage 3a, GFR 45-59 ml/min: Improved to baseline, despite diuresis Iron deficiency anemia-stable, improved with diuresis Generalized anxiety disorder continue with home medications History of chronic combined congestive heart failure-see above Admission status: Patient with severe sepsis secondary to pneumonia as acute hypoxia and lactic acidosis-possible acute exacerbation of systolic heart failure as well, labs are pending, medically necessary treatment to span 2 midnights, inpatient status
[2025-01-30 06:04] LABS: Basophils Percent Auto 0.2 % (0.2-2.0); Eosinophils Absolute Auto 0.2 10^3/uL (0.0-0.7); Eosinophils Percent Auto 1.2 % (0.9-7.0); Hematocrit 37.1 % (36.0-48.0); Hemoglobin 12.8 g/dL (12.0-16.0); Immature Granulocytes Abs Auto 0.13 10^3/uL (0.00-0.03); Immature Granulocytes Pct Auto 0.8 % (0.0-0.5); Lymphocytes Absolute Auto 3.1 10^3/uL (1.2-3.8); Lymphocytes Percent Auto 19.2 % (20.5-60.0); Mean Corpuscular HGB Conc 34.5 g/dL (29.9-35.2); Mean Corpuscular Hemoglobin 31.8 pg (26.7-34.0); Mean Corpuscular Volume 92.1 fL (81.0-99.0); Mean Platelet Volume 10.1 fL (9.5-13.5); Monocytes Absolute Auto 1.1 10^3/uL (0.3-0.8); Monocytes Percent Auto 6.9 % (1.7-12.0); Neutrophils Absolute Auto 11.6 10^3/uL (1.4-6.5); Neutrophils Percent Auto 71.7 % (43.0-75.0); Platelet Count 408 10^3/uL (150-450); Red Blood Count 4.03 10^6/uL (4.20-5.40); Red Cell Distribution Width 13.7 % (11.0-15.0); White Blood Count 16.1 10^3/uL (4.0-11.0)
[2025-01-30 06:11] LABS: Troponin I High Sensitivity 280.1 pg/mL (4.0-51.3)
[2025-01-30 06:17] LABS: Alanine Aminotransferase 39 U/L (14-59); Albumin Globulin Ratio 0.6; Albumin Level 2.4 g/dL (3.4-5.0); Alkaline Phosphatase 64 U/L (46-116); Anion Gap 11.3; Aspartate Amino Transferase 23 U/L (15-37); BUN Creatinine Ratio 45.8; Bilirubin Total 0.5 mg/dL (0.2-1.0); Calcium 9.3 mg/dL (8.5-10.1); Carbon Dioxide 35.4 mmol/L (21.0-32.0); Chloride 101 mmol/L (98-107); Estimated GFR (African America >60 (>=60 mL/min/1.73m^2); Estimated GFR (Non-African Ame >60 (>=60 mL/min/1.73m^2); Globulin 3.9 g/dL; Glucose 90 mg/dL (74-106); Potassium 3.7 mmol/L (3.5-5.1); Sodium 144 mmol/L (136-145); Total Protein 6.3 g/dL (6.4-8.2)
--- NOTE | 2025-01-30 08:16 | XR_ITS ---
[facility] [place] [id number] Patient Name: ALEKSANDR SANCHEZ MRN: [id number] date: 1940 Sex: F Assigned Patient Location: Current Patient Location: [place] Accession/Order Number: [id number] Exam Date: 01/30/2025 09:28 Report Date: 01/30/2025 09:31 At the request of: LILIANA CASTREJON MD Procedure: XR chest 2V PA AND LATERAL CHEST: CLINICAL HISTORY: follow up pneumonia. Cough. COMPARISON: 01/25/2025 The lungs are hyperinflated. Apical scarring is present. There are improving bibasilar parenchymal changes. The small pleural effusions present at the posterior costophrenic angles on the lateral view at the time the prior are also resolving. No pneumothorax is seen. The cardiac, hilar and mediastinal silhouettes are similar. There is no suspected vascular congestion. The visualized bony structures are osteopenic. There is S-shaped thoracolumbar scoliotic curvature and tiny endplate spurs. XR/XR chest 2V IMPRESSION: OBSTRUCTIVE LUNG DISEASE. RESOLVING BASILAR PLEURAL PARENCHYMAL CHANGES. Impression dictated by: Latonya Cueva M.D. 01/30/2025 9:31 AM Dictation Location: [place] [id number] Electronically authenticated by: [id number] Y Date: 01/30/2025 09:31
--- NOTE | 2025-01-30 08:18 | P.DS_ITS ---
DS: Providers Provider Date of admission: 01/22/25 14:10 Primary care physician: SHELDON XIE Consults: 01/22/25 Consult to Dietitian Routine Reason for consultation: weight loss. Has provider been notified: No 01/22/25 17:18 Occupational Therapy Eval and Treat Routine Reason for consultation: Weakness Physical Therapy Eval and Treat Routine Reason for consultation: Weakness 01/27/25 06:20 Consult to Cardiology Routine Reason for consultation: elevated trop 01/28/25 07:44 Physical Therapy Eval and Treat Routine Reason for consultation: re-eval ambulation - needs Daily ambulation 100 feet Has provider been notified: No 01/30/25 06:48 Consult to Cardiology Routine Reason for consultation: follow up Has provider been notified: No DS: Diagnosis Discharge Diagnosis (1) Acute diastolic heart failure: (2) Elevated troponin: (3) Electrocardiogram abnormal: (4) Elevated brain natriuretic peptide (BNP) level: (5) PAC (premature atrial contraction): (6) Right lower lobe pneumonia: Qualifiers: Pneumonia type: due to unspecified organism Qualified Code(s): J18.9 - Pneumonia, unspecified organism (7) Severe sepsis: (8) Acute hypoxic respiratory failure: (9) COPD with acute exacerbation: (10) Hypertension: Qualifiers: Hypertension type: primary hypertension Qualified Code(s): I10 - Essential (primary) hypertension (11) Paroxysmal SVT (supraventricular tachycardia): (12) CKD stage 3a, GFR 45-59 ml/min: Plan Admission findings: Sinus tachycardia, leukocytosis, lactic acidosis, hyperkalemia acute hypoxia secondary to right lower lobe pneumonia with right pleural effusion is lactic acidosis consistent with severe sepsis Right lower lobe pneumonia resulting in severe sepsis and acute hypoxic respiratory failure with acute exacerbation of COPD -since stable with chronic hypoxia at 1 L required although walk test is pending Right pleural effusion due to acute systolic heart failure the significant elevation in high-sensitivity troponin today, consistent with acute NSTEMI type II-echocardiogram shows good ejection fraction, stable, changing to oral agents Hypertension: See above Hyperkalemia-return to baseline Echocardiogram with LVH, severe atrial enlargement and severe tricuspid regurgitation with increased pulmonary hypertension-medical management as outlined above for the heart failure Hypernatremia-improved today to normal Elevated liver function test-secondary to passive congestion secondary to the acute systolic heart failure Paroxysmal SVT (supraventricular tachycardia):-Heart rate stable Hyperglycemia-up somewhat today, continue to follow CKD stage 3a, GFR 45-59 ml/min: Improved to baseline, despite diuresis Iron deficiency anemia-stable, improved with diuresis Generalized anxiety disorder continue with home medications History of chronic combined congestive heart failure-see above Admission status: Patient with severe sepsis secondary to pneumonia as acute hypoxia and lactic acidosis-possible acute exacerbation of systolic heart failure as well, labs are pending, medically necessary treatment to span 2 midnights, inpatient status DS: Summary Hospital Course Hospital Course: Patient admitted for pneumonia and acute exacerbation of COPD resulting in sepsis, when I saw patient. Be having more respiratory distress than anticipated for the findings on x-ray, checked troponin and BNP, troponin was normal but BNP was elevated, patient was treated had episode of hypotension troponins were repeated and is significantly elevated resulting in acute NSTEMI from sepsis from the pneumonia, consultation to cardiology felt this further diuresis with bolus dosing of IV diuretics, she has had good urine output over the last 4 to 5 days, less output yesterday, changing to oral medications today the plan was to try to wean her off of supplemental oxygen but with her heart failure and chronic COPD and this acute pneumonia resulting in exacerbation, unlikely to get her off of supplemental oxygen for an extended period of time. See walk test. Patient medically stable otherwise vital signs stable and she is ambulating, so should be discharged to home in improving condition. Medications see list. Follow-up with PCP and pulmonology and should probably follow-up with cardiology as well Time Spent with Patient Time attestation: Total time spent providing and/or coordinating discharge services: Exam Constitutional Vital Signs, click to edit/add: Last Vital Signs Temp 97.7 F 01/30/25 08:00 Pulse 78 01/30/25 08:00 Resp 20 01/30/25 08:00 BP 133/68 01/30/25 08:00 Pulse Ox 90 L 01/30/25 08:00 O2 Del Method Nasal Cannula 01/30/25 08:00 O2 Flow Rate 1 01/30/25 08:00 FiO2 2 01/25/25 16:14 Documenting provider has reviewed patient's vital signs: yes Common normals: no apparent distress Lymph Lymphatic: no lymphadenopathy noted Chest Common normals: inspection of chest normal Respiratory Common normals: normal respiratory effort and no retractions Auscultation: rales (Minimal rales much improved) Cardio Common normals: regular rate, regular rhythm and no murmurs GI Common normals: Normal to inspection, nondistended, normoactive bowel sounds present, soft to palpation and no hepatosplenomegaly Extremity Common normals: normal to inspection, full ROM and no clubbing, cyanosis or edema Neuro Common normals: oriented x3, CN's II-XII intact bilaterally and moves all extremities DS: Data Data Completed and Pending Labs on day of discharge: Labs from last 24 hours 01/30/25 04:41 WBC 16.1 H RBC 4.03 L Hgb 12.8 Hct 37.1 MCV 92.1 MCH 31.8 MCHC 34.5 RDW 13.7 Plt Count 408 MPV 10.1 Neut % (Auto) 71.7 Lymph % (Auto) 19.2 L [place] % (Auto) 6.9 Eos % (Auto) 1.2 Baso % (Auto) 0.2 Neut # (Auto) 11.6 H Lymph # (Auto) 3.1 [place] # (Auto) 1.1 H Eos # (Auto) 0.2 Baso # (Auto) 0.0 Abs Immat Gran (auto) 0.13 H Imm/Tot Granulo (auto) 0.8 H Sodium 144 Potassium 3.7 Chloride 101 Carbon Dioxide 35.4 H Anion Gap 11.3 BUN 38.0 H Creatinine 0.83 Est GFR ( Amer) >60 Est GFR (Non-Af Amer) >60 BUN/Creatinine Ratio 45.8 Glucose 90 Calcium 9.3 Total Bilirubin 0.5 AST 23 ALT 39 Alkaline Phosphatase 64 Troponin I High Sens 280.1 H* NT-Pro-B Natriuret Pep 2846.0 H* Total Protein 6.3 L Albumin 2.4 L Globulin 3.9 Albumin/Globulin Ratio 0.6 Digoxin 1.3 Discharge Plan Discharge Disposition: Home Health Service Condition: Fair Discharge Medications: New isosorbide mononitrate 30 mg Tablet Extended Release 24 Hr 30 mg PO QD Qty: 30 11RF dextromethorphan-guaifenesin 10-100 mg/5 mL Syrup 10 ml PO Q6H PRN (Reason: Cough) Qty: 237 11RF digoxin 125 mcg (0.125 mg) Tablet 125 mcg PO QD Qty: 30 11RF amoxicillin-pot clavulanate 875-125 mg Tablet 1 tab PO BID Qty: 20 0RF Ensure Original 0.04-1.05 gram-kcal/mL Liquid 1 ea PO BID Qty: 5688 11RF prednisone 10 mg tablet 20 mg PO DAILY Qty: 18 0RF Rx Instructions: 2 po Q day for 5 days, 1 po Q day for 5 days, 1/2 po Qday for 6 days benzonatate 200 mg capsule 200 mg PO TID Qty: 30 0RF spironolactone 25 mg tablet 12.5 mg PO DAILY Qty: 30 11RF Continued albuterol sulfate 2.5 mg /3 mL (0.083 %) solution for nebulization 2.5 mg inhalation Q8H PRN (Reason: shortness of breath or wheezing) brimonidine-timolol 0.2-0.5 % drops 1 drp OPHTHALMIC (EYE) Q12H latanoprost 0.005 % drops 1 drp OPHTHALMIC (EYE) .QHS carvedilol 6.25 mg tablet 6.25 mg PO Q12H clonazepam 0.5 mg tablet 0.5 mg PO .QHS Trelegy Ellipta 100-62.5-25 mcg blister with device 1 inh INHALATION DAILY fluticasone propionate 50 mcg/actuation spray,suspension 2 spray INTRANASAL Q12H lisinopril 2.5 mg tablet 2.5 mg PO DAILY pravastatin 40 mg tablet 40 mg PO .QHS torsemide 10 mg tablet 10 mg PO DAILY aspirin [Aspirin Childrens] 81 mg tablet,chewable 81 mg PO DAILY Discontinued potassium chloride 10 mEq capsule, extended release 20 meq PO .QHS Print Language: Greek Forms: Portal Instructions
--- NOTE | 2025-01-30 08:34 | CM.NOTE ---
Rounds made with Dr. Hernandez, pt will have walk test today and discharge home with oxygen. Family at bedside with questions regarding HH services, discussed with pt and now is in agreement to HH services. Pt will discharge with HH and home oxygen. Dr. Hernandez able to answer questions for family regarding diagnosis and changes in medications at discharge. Family provided with Medicare.gov 5 star rating for HH agencies. Family voice after looking at paper for HH companies that they are okay with any of them and do not have request for specific company for oxygen. SW updated for discharge planning.
--- NOTE | 2025-01-30 08:40 | SWNOTE1 ---
SW and I met with pt in room. Pt's son was present as well. Pt is agreeable to home health. SW sent ER note, H&P, progess note, PT/OT note to [facility] for referral. Pt will need home oxygen, she has no preference. SW to send referral to [facility] once documentation is put in.
--- NOTE | 2025-01-30 09:14 | REH.PTDLY ---
Physical Therapy Daily Note PT Daily Note/Assess Start: 01/29/25 11:11 Freq: Status: Active Protocol: Document 01/30/25 07:45 DINO (Rec: 01/30/25 09:14 DINO [id number]) Physical Therapy Daily Note/Assessment Time In 07:25 Time Out 07:44 Subjective Pt in chair upon arrival, 3 family members in room waiting for Dr. carl round. Therapeutic Exercise 6 Minutes (minutes) Therapeutic Exercise 0 Units Therapeutic Exercise Instructed in B LE seated exs 10x ea with verbal cues Treatment and demo to perform. Exs included AP, LAQ, marching, hip abd step outs, and add squeeze. Therapeutic Activity 12 Minutes (minutes) Therapeutic Activity 1 Units Therapeutic Activity Ind with transfers. Gait with RW and no O2 for walk Comments test. Pt at 91% SpO2 to start, drops to 88% after 60 feet and then drops to 84-85% after 100 feet. Pt ambulates for a total of 150 feet. Total Therapy 18 Minutes Total Physical 1 Therapy Units Daily Note Summary Pt's O2 drops with ambulation on RA, notified nursing of results. Pt reports LE fatigue post rx. Pt would benefit from HH to gain strength.
[2025-01-30] MEDS: ISOSORBIDE MONONITRATE 30 MG TAB.ER.24H PO (09:36)
[2025-01-30] MEDS: ASPIRIN 81 MG TAB.CHEW PO (09:37)
[2025-01-30] MEDS: AMOXICILLIN/POT CLAV 875-125 MG TABLET 1 TAB PO ×2 (09:37→21:03)
[2025-01-30] MEDS: SPIRONOLACTONE 25 MG TABLET PO (09:37)
[2025-01-30] MEDS: CARVEDILOL 6.25 MG TABLET PO (09:37)
[2025-01-30] MEDS: PREDNISONE 20 MG TABLET PO (09:37)
[2025-01-30] MEDS: LISINOPRIL 5 MG TABLET 2.5 MG PO (09:37)
[2025-01-30] MEDS: DIGOXIN 125 MCG TABLET PO (09:37)
[2025-01-30] MEDS: TORSEMIDE 20 MG TABLET 10 MG PO (09:37)
[2025-01-30] MEDS: ENOXAPARIN SODIUM 40 MG/0.4 ML SYRINGE SUBQ (09:38)
[2025-01-30] MEDS: [UNRECOGNIZED DRUG - REMARK] 1 EACH OP ×2 (09:38→21:04)
--- NOTE | 2025-01-30 12:31 | SWNOTE1 ---
SW spoke to [facility] and they are able to accept. SW also called [facility] and they do have everything they need for home oxygen orders. Pt is going home on 1 liter of home oxygen with [facility].
--- NOTE | 2025-01-30 15:54 | SWNOTE1 ---
ALISSA called [facility] and [facility] that pt is not discharging today. CRF sent to [facility].
--- NOTE | 2025-01-30 16:32 | P.CAPN_ITS ---
<Statement entered by ANUSHKA CRUZ - 01/30/25 20:01> Discussed with DIGITAL DESIGN ENGINEER Jennifer Marroquin. I agree with the plan. This documentation has been reviewed and approved. Progress Note: A&P Assessment and Plan (1) Acute diastolic heart failure: (2) Elevated troponin: (3) Electrocardiogram abnormal: (4) Elevated brain natriuretic peptide (BNP) level: (5) PAC (premature atrial contraction): (6) Right lower lobe pneumonia: Qualifiers: Pneumonia type: due to unspecified organism Qualified Code(s): J18.9 - Pneumonia, unspecified organism (7) Severe sepsis: (8) Acute hypoxic respiratory failure: (9) COPD with acute exacerbation: (10) Hypertension: Qualifiers: Hypertension type: primary hypertension Qualified Code(s): I10 - Essential (primary) hypertension (11) CKD stage 3a, GFR 45-59 ml/min: Plan Plan 1. Acute diastolic heart failure: She has diuresed well. She is down 3kg since admission. She appears compensated on exam. -GDMT: given her drop in BP this AM, will reduce spironolactone to 12.5 mg daily. Can consider an SGLT2i as an outpatient. 2. Elevated troponin: -type II myocardial infarction in the setting of pneumonia and decompensated heart failure. -There is no evidence of acute coronary syndrome and there is absence of ischemic symptoms and ischemic ECG changes. 3. Sinus rhythm with PACs and right bundle branch block: -No evidence of atrial fibrillation on review of telemetry. The PACs are agg ravated in the setting of pneumonia and hypoxia. 4. Sinus tachycardia -Reviewed telemetry strips. No evidence of SVT per my review but noted sinus tachycardia with frequent PAC's. Primary team to investigate causes for sinus tachycardia. Likely driven by infection and lung disease. WBC's were elevated at 16 today from 12 yesterday which may be a contributing factor. Primary team adjusted her antibiotics today. -Currently on digoxin. Will stop as likely will not have any benefits. -Will replace coreg with metoprolol tartrate 50mg BID - uptitrate as needed for HR/PAC control as BP will allow. This may also help her COPD as it is a selective beta-sharron. 5. Hypotension -Likely due to diuresis and new medications -Will stop imdur, no indication for it at this time -Reducing spironolactone as noted above -Changing coreg to metoprolol tartrate as noted above 6. Pneumonia: Continue treatment with antibiotics as you are doing. Case reviewed with Dr. Cruz who agrees with plan. Pt to follow-up with cardiology in 1 week after discharge. Appt made for 02/06/25. We will see her and then she will decide if she will continue to follow-up with us or see her previous cardiology group. Thank you for the consult. Please let us know if any further questions or concnerns. Jennifer Marroquin APRN-FAMILY NURSE PRACTITIONER [facility] Cardiovascular Medicine Subjective Subjective Principal diagnosis: HFpEF, COPD, PNA Interval history: Follow-up: HFpEF Patient seen and examined at bedside late this afternoon, her son was also present. She states she is feeling better than this AM. This early afternoon she had an episode where she felt very dizzy and fatigued. Her BP was low, 67/33. He r BP improved to 80s/50s along with her sx's, most recent BP 97/56. She currently denies c/o CP, orthopnea, PND, LE edema, dizziness, palpitations, syncope. She notes her dyspnea continues to improve. She has an ongoing cough. Exam Constitutional Vital Signs, click to edit/add: Last Vital Signs Temp 97.7 F 01/30/25 08:00 Pulse 76 01/30/25 16:00 Resp 20 01/30/25 08:00 BP 97/46 L 01/30/25 14:13 Pulse Ox 92 L 01/30/25 14:13 O2 Del Method Nasal Cannula 01/30/25 14:13 O2 Flow Rate 1 01/30/25 14:13 FiO2 2 01/25/25 16:14 Documenting provider has reviewed patient's vital signs: yes Common normals: no apparent distress, oriented x3 and alert HENMT Common normals: normocephalic and head/scalp atraumatic Eye Common normals: EOMs intact bilaterally Neck & C-Spine Common normals: supple and no JVD Respiratory Common normals: normal respiratory effort and no use of accessory muscles Auscultation: rhonchi and diminished lung sounds (bases bilaterally) Cardio Common normals: regular rate and regular rhythm Rhythm: other (frequent premature beats) GI Common normals: Normal to inspection, nondistended, normoactive bowel sounds present Extremity Common normals: no clubbing, cyanosis or edema Neuro Common normals: oriented x3, CN's II-XII intact bilaterally and moves all extremities Psych Appearance: grossly normal Attitude: calm
[2025-01-30] MEDS: CLONAZEPAM 0.5 MG TABLET PO (21:03)
[2025-01-30] MEDS: ATORVASTATIN CALCIUM 10 MG TABLET PO (21:03)
[2025-01-30] MEDS: ENSURE ORIGINAL 237 ML BOTTLE PO (21:04)
[2025-01-30] MEDS: LATANOPROST 0.005% 2.5 ML BOTTLE 1 DROP OP (21:04)
[2025-01-31] VITALS (16 sets, daily range): BP systolic 91–142; BP diastolic 35–60; PULSE 65–92; TEMP 36.6–36.7; O2SAT 90–92
[2025-01-31] MEDS: BENZONATATE 100 MG CAPSULE 200 MG PO ×2 (05:20→14:25)
[2025-01-31 06:01] LABS: Basophils Percent Auto 0.1 % (0.2-2.0); Eosinophils Absolute Auto 0.1 10^3/uL (0.0-0.7); Eosinophils Percent Auto 0.6 % (0.9-7.0); Hematocrit 36.8 % (36.0-48.0); Hemoglobin 12.4 g/dL (12.0-16.0); Immature Granulocytes Abs Auto 0.14 10^3/uL (0.00-0.03); Immature Granulocytes Pct Auto 0.9 % (0.0-0.5); Lymphocytes Absolute Auto 2.7 10^3/uL (1.2-3.8); Lymphocytes Percent Auto 16.5 % (20.5-60.0); Mean Corpuscular HGB Conc 33.7 g/dL (29.9-35.2); Mean Corpuscular Hemoglobin 30.8 pg (26.7-34.0); Mean Corpuscular Volume 91.3 fL (81.0-99.0); Mean Platelet Volume 9.6 fL (9.5-13.5); Monocytes Absolute Auto 1.1 10^3/uL (0.3-0.8); Monocytes Percent Auto 6.7 % (1.7-12.0); Neutrophils Absolute Auto 12.3 10^3/uL (1.4-6.5); Neutrophils Percent Auto 75.2 % (43.0-75.0); Platelet Count 438 10^3/uL (150-450); Red Blood Count 4.03 10^6/uL (4.20-5.40); Red Cell Distribution Width 13.5 % (11.0-15.0); White Blood Count 16.3 10^3/uL (4.0-11.0)
--- NOTE | 2025-01-31 06:07 | P.DS_ITS ---
DS: Providers Provider Date of admission: 01/22/25 14:10 Primary care physician: SHELDON MONTEJO Consults: 01/22/25 Consult to Dietitian Routine Reason for consultation: weight loss. Has provider been notified: No 01/22/25 17:18 Occupational Therapy Eval and Treat Routine Reason for consultation: Weakness Physical Therapy Eval and Treat Routine Reason for consultation: Weakness 01/27/25 06:20 Consult to Cardiology Routine Reason for consultation: elevated trop 01/28/25 07:44 Physical Therapy Eval and Treat Routine Reason for consultation: re-eval ambulation - needs Daily ambulation 100 feet Has provider been notified: No 01/30/25 06:48 Consult to Cardiology Routine Reason for consultation: follow up Has provider been notified: No DS: Diagnosis Discharge Diagnosis (1) Acute diastolic heart failure: (2) Elevated troponin: (3) Electrocardiogram abnormal: (4) Elevated brain natriuretic peptide (BNP) level: (5) PAC (premature atrial contraction): (6) Right lower lobe pneumonia: Qualifiers: Pneumonia type: due to unspecified organism Qualified Code(s): J18.9 - Pneumonia, unspecified organism (7) Severe sepsis: (8) Acute hypoxic respiratory failure: (9) COPD with acute exacerbation: (10) Hypertension: Qualifiers: Hypertension type: primary hypertension Qualified Code(s): I10 - Essential (primary) hypertension (11) CKD stage 3a, GFR 45-59 ml/min: (12) Paroxysmal SVT (supraventricular tachycardia): Plan Admission findings: Sinus tachycardia, leukocytosis, lactic acidosis, hyperkalemia acute hypoxia secondary to right lower lobe pneumonia with right pleural effusion is lactic acidosis consistent with severe sepsis Right lower lobe pneumonia resulting in severe sepsis and acute hypoxic respiratory failure with acute exacerbation of COPD -since stable with chronic hypoxia at 1 L required although walk test is pending Right pleural effusion due to acute systolic heart failure the significant elevation in high-sensitivity troponin today, consistent with acute NSTEMI type II-echocardiogram shows good ejection fraction, stable, changing to oral agents Hypertension: See above Hyperkalemia-return to baseline Echocardiogram with LVH, severe atrial enlargement and severe tricuspid regurgitation with increased pulmonary hypertension-medical management as outlined above for the heart failure Hypernatremia-improved today to normal Elevated liver function test-secondary to passive congestion secondary to the acute systolic heart failure Paroxysmal SVT (supraventricular tachycardia):-Heart rate stable Hyperglycemia-up somewhat today, continue to follow CKD stage 3a, GFR 45-59 ml/min: Improved to baseline, despite diuresis Iron deficiency anemia-stable, improved with diuresis Generalized anxiety disorder continue with home medications History of chronic combined congestive heart failure-see above Admission status: Patient with severe sepsis secondary to pneumonia as acute hypoxia and lactic acidosis-possible acute exacerbation of systolic heart failure as well, labs are pending, medically necessary treatment to span 2 midnights, inpatient status DS: Summary Hospital Course Hospital Course: Patient admitted for pneumonia and acute exacerbation of COPD resulting in sepsis, when I saw patient. Be having more respiratory distress than anticipated for the findings on x-ray, checked troponin and BNP, troponin was normal but BNP was elevated, patient was treated had episode of hypotension troponins were repeated and is significantly elevated resulting in acute NSTEMI from sepsis from the pneumonia, consultation to cardiology felt this further diuresis with bolus dosing of IV diuretics, she has had good urine output over the last 4 to 5 days, less output yesterday, changing to oral medications today the plan was to try to wean her off of supplemental oxygen but with her heart failure and chronic COPD and this acute pneumonia resulting in exacerbation, unlikely to get her off of supplemental oxygen for an extended period of time. See walk test. Patient medically stable otherwise vital signs stable and she is ambulating, so should be discharged to home in improving condition. Medications see list. Follow-up with PCP and pulmonology and should probably follow-up with cardiology as well...... 's note from previous day, she at the end of the day had more lightheaded spells and imbalance with walking so she was kept an additional day medications were adjusted her blood pressure still runs on the low side which is fine from a heart failure standpoint she is no longer dizzy, ambulating safely her and family are okay with going home today, we did cut back on her beta-sharron from 50 mg twice a day to 25 mg twice a day and would hold off on the Aldactone for now maintain other diuretic Time Spent with Patient Time attestation: Total time spent providing and/or coordinating discharge services: Exam Constitutional Vital Signs, click to edit/add: Last Vital Signs Temp 97.8 F 01/31/25 04:00 Pulse 65 01/31/25 06:00 Resp 18 01/31/25 04:00 BP 118/44 L 01/31/25 04:00 Pulse Ox 91 L 01/31/25 04:53 O2 Del Method Nasal Cannula 01/31/25 04:53 O2 Flow Rate 1 01/31/25 04:53 FiO2 2 01/25/25 16:14 Documenting provider has reviewed patient's vital signs: yes Common normals: no apparent distress, oriented x3 and alert HENMT Common normals: normocephalic and head/scalp atraumatic Eye Common normals: EOMs intact bilaterally Neck & C-Spine Common normals: supple and no JVD Respiratory Common normals: normal respiratory effort and no use of accessory muscles Auscultation: rhonchi and diminished lung sounds (bases bilaterally) Cardio Common normals: regular rate and regular rhythm Rhythm: other (frequent premature beats) GI Common normals: Normal to inspection, nondistended, normoactive bowel sounds present Extremity Common normals: no clubbing, cyanosis or edema Neuro Common normals: oriented x3, CN's II-XII intact bilaterally and moves all extremities Psych Appearance: grossly normal Attitude: calm DS: Data Data Completed and Pending Labs on day of discharge: Labs from last 24 hours 01/30/25 04:41 WBC 16.1 H RBC 4.03 L Hgb 12.8 Hct 37.1 MCV 92.1 MCH 31.8 MCHC 34.5 RDW 13.7 Plt Count 408 MPV 10.1 Neut % (Auto) 71.7 Lymph % (Auto) 19.2 L [place] % (Auto) 6.9 Eos % (Auto) 1.2 Baso % (Auto) 0.2 Neut # (Auto) 11.6 H Lymph # (Auto) 3.1 [place] # (Auto) 1.1 H Eos # (Auto) 0.2 Baso # (Auto) 0.0 Abs Immat Gran (auto) 0.13 H Imm/Tot Granulo (auto) 0.8 H Sodium 144 Potassium 3.7 Chloride 101 Carbon Dioxide 35.4 H Anion Gap 11.3 BUN 38.0 H Creatinine 0.83 Est GFR ( Amer) >60 Est GFR (Non-Af Amer) >60 BUN/Creatinine Ratio 45.8 Glucose 90 Calcium 9.3 Total Bilirubin 0.5 AST 23 ALT 39 Alkaline Phosphatase 64 Troponin I High Sens 280.1 H* NT-Pro-B Natriuret Pep 2846.0 H* Total Protein 6.3 L Albumin 2.4 L Globulin 3.9 Albumin/Globulin Ratio 0.6 Discharge Plan Discharge Disposition: Home Health Service Condition: Fair Discharge Medications: New dextromethorphan-guaifenesin 10-100 mg/5 mL Syrup 10 ml PO Q6H PRN (Reason: Cough) Qty: 237 11RF amoxicillin-pot clavulanate 875-125 mg Tablet 1 tab PO BID Qty: 20 0RF Ensure Original 0.04-1.05 gram-kcal/mL Liquid 1 ea PO BID Qty: 5688 11RF prednisone 10 mg tablet 20 mg PO DAILY Qty: 18 0RF Rx Instructions: 2 po Q day for 5 days, 1 po Q day for 5 days, 1/2 po Qday for 6 days benzonatate 200 mg capsule 200 mg PO TID Qty: 30 0RF amoxicillin-pot clavulanate 875-125 mg tablet 1 tab PO Q12H Qty: 20 0RF metoprolol tartrate 25 mg tablet 25 mg PO BID Qty: 60 11RF Continued albuterol sulfate 2.5 mg /3 mL (0.083 %) solution for nebulization 2.5 mg inhalation Q8H PRN (Reason: shortness of breath or wheezing) brimonidine-timolol 0.2-0.5 % drops 1 drp OPHTHALMIC (EYE) Q12H latanoprost 0.005 % drops 1 drp OPHTHALMIC (EYE) .QHS clonazepam 0.5 mg tablet 0.5 mg PO .QHS Trelegy Ellipta 100-62.5-25 mcg blister with device 1 inh INHALATION DAILY fluticasone propionate 50 mcg/actuation spray,suspension 2 spray INTRANASAL Q12H lisinopril 2.5 mg tablet 2.5 mg PO DAILY pravastatin 40 mg tablet 40 mg PO .QHS torsemide 10 mg tablet 10 mg PO DAILY aspirin [Aspirin Childrens] 81 mg tablet,chewable 81 mg PO DAILY Discontinued carvedilol 6.25 mg tablet 6.25 mg PO Q12H potassium chloride 10 mEq capsule, extended release 20 meq PO .QHS Activity: increase activity as tolerated and wear oxygen at all times Diet: advance to your usual diet Print Language: Arabic Patient Instructions: Heart Failure (DC), COPD (Chronic Obstructive Pulmonary Disease) (DC), Community Acquired Pneumonia (DC) Facilities Maintenance Technician/Supervisor Assembly Room Instructions: Discharge with [facility], phone number is [phone] [facility] for home oxygen, 1 liter continuous. Please contact [facility] when you are on way home or arrive home. They will deliver the rest of the oxygen supplies. Phone number is [phone] Forms: Portal Instructions Follow Up Appointments: February 12 @ 1:15pm with Dr. Sheldon Montejo [phone] February 06 at 3:00pm with [facility] Cardiology at [facility] Discharge Date/Time: 01/31/25 15:57
[2025-01-31 06:27] LABS: Anion Gap 7.8; BUN Creatinine Ratio 49.5; Calcium 9.5 mg/dL (8.5-10.1); Carbon Dioxide 37.1 mmol/L (21.0-32.0); Chloride 100 mmol/L (98-107); Estimated GFR (African America >60 (>=60 mL/min/1.73m^2); Estimated GFR (Non-African Ame 55 (>=60 mL/min/1.73m^2); Glucose 89 mg/dL (74-106); Potassium 3.9 mmol/L (3.5-5.1); Sodium 141 mmol/L (136-145)
[2025-01-31 06:39] LABS: Troponin I High Sensitivity 128.4 pg/mL (4.0-51.3)
[2025-01-31 06:53] LABS: Digoxin 1.4 ng/mL (0.9-2.0)
--- NOTE | 2025-01-31 08:00 | CM.NOTE ---
Rounds made with Dr. Hernandez, pt will discharge to home if BP stable after AM medications. Pt will discharge with home oxygen ([facility]), and HH services ([facility]).
[2025-01-31] MEDS: ENOXAPARIN SODIUM 40 MG/0.4 ML SYRINGE SUBQ (09:02)
[2025-01-31] MEDS: PREDNISONE 20 MG TABLET PO (09:02)
[2025-01-31] MEDS: ASPIRIN 81 MG TAB.CHEW PO (09:02)
[2025-01-31] MEDS: AMOXICILLIN/POT CLAV 875-125 MG TABLET 1 TAB PO (09:02)
[2025-01-31] MEDS: LISINOPRIL 5 MG TABLET 2.5 MG PO (09:03)
[2025-01-31] MEDS: TORSEMIDE 20 MG TABLET 10 MG PO (09:03)
[2025-01-31] MEDS: METOPROLOL TARTRATE 50 MG TABLET PO (09:03)
[2025-01-31] MEDS: [UNRECOGNIZED DRUG - REMARK] 1 EACH OP (09:04)
--- NOTE | 2025-01-31 09:29 | CM.NOTE ---
Pt's son Westley reached out to Case Management about pt going inpt for skilled therapy at discharge. Discussed with him PT and OT recommendations, he verbalizes understanding and had concern related to her BP dropping after morning mediation on 01/30. Assured son reason for pt staying at hospital another day was to adjust and change medications so her BP would stabilize. Dr. Hernandez on morning rounds wanted pt to be administered morning medications and ambulate prior to discharge to make sure medication change is working and BP dose not drop. Did discuss with pt's son about skilled and out of pocket cost if pt denied by insurance or unable to meet criteria. Son verbalizes understanding and would not be interested at this time for any out of pocket cost.
--- NOTE | 2025-01-31 11:23 | PT.DAILY ---
Physical Therapy Daily Note PT Daily Note/Assess Start: 01/29/25 11:11 Freq: Status: Active Protocol: Document 01/31/25 11:21 TONY (Rec: 01/31/25 11:23 TONY [id number]) Physical Therapy Daily Note/Assessment Time In/Time Out Time In 10:35 Time Out 10:45 Pain In Pain N/A Pain Out Pain N/A Subjective Subjective Pt sitting in BS chair upon arrival. On 1L O2 - SpO2 94 % prior to session. Therapeutic Exercise Time Therapeutic Exercise 4 Minutes (minutes) Therapeutic Exercise 0 Units Therapeutic Exercise Treatment Therapeutic Exercise Seated bilat LE ex complete in BS chair to improve Treatment functional mobility prior to gait and transfers. Therapeutic Activity Time Therapeutic Activity 6 Minutes (minutes) Therapeutic Activity 1 Units Therapeutic Activity Treatment Chair Transfer Standby Assistance Ability Therapeutic Activity Sit>stand SBA to RW. Pt amb 180' with RW, SBA with Comments assist for portable O2 tank. Spo2 92% upon completion. Returned to BS chair with chair alarm set and needs met . Total Physical Therapy Time Total Therapy 10 Minutes Total Physical 1 Therapy Units Summary Daily Note Summary Slight improevment with gait endurance with min drop in sats on 1L O2.
--- NOTE | 2025-01-31 15:01 | CM.NOTE ---
Called Kimberly to update that pt has been discharged. Lavon also notified of pt's discharge. RN updated to let pt know to call Lavon as soon as she arrives to home.
--- NOTE | 2025-02-04 14:51 | CM.DCFOLLOWU ---
Person spoke with:patient How are you feeling?well How is your pain?none Did you understand your discharge instructions?yes Do you have any questions about your discharge instructions? no Were you given any prescriptions at discharge?yes Were you able to get your prescriptions filled?yes Do you understand how to take your medications as ordered? yes Do you have any questions about your follow up appointment and do you plan to keep your follow up appointment? no questions, reviewed follow ups. She did voice that she was getting call from [facility] and she thought she was set up to see [facility] cardiology here at [facility]. ALISSA called and confirmed with [facility] office here at [facility] and she is scheduled for at 3:00pm Is there anything else that you would like to discuss? no Questions/Comments/Concerns/Other:none
== END 2025-01-31 15:57 | disposition home health service (06) | DRG 871 ==
LOC: ER 13:03 → MS 14:15
PROVIDERS: Family Medicine; Admitting Provider Family Medicine; Emergency Provider Emergency Medicine; PCP Family Medicine; Visit Provider Family Medicine
DX: A41.9 Sepsis, unspecified organism (principal); E43 Unspecified severe protein-calorie malnutrition; I21.A1 Myocardial infarction type 2; J18.9 Pneumonia, unspecified organism; J96.01 Acute respiratory failure with hypoxia; I50.43 Acute on chronic combined systolic (congestive) and diastolic (congestive) heart failure; J44.0 Chronic obstructive pulmonary disease with (acute) lower respiratory infection; J44.1 Chronic obstructive pulmonary disease with (acute) exacerbation; I47.10 Supraventricular tachycardia, unspecified; N17.9 Acute kidney failure, unspecified; I13.0 Hypertensive heart and chronic kidney disease with heart failure and stage 1 through stage 4 chronic kidney disease, or unspecified chronic kidney disease; E87.0 Hyperosmolality and hypernatremia; Z68.1 Body mass index [BMI] 19.9 or less, adult; R65.20 Severe sepsis without septic shock; E78.00 Pure hypercholesterolemia, unspecified; Z90.710 Acquired absence of both cervix and uterus; Z90.49 Acquired absence of other specified parts of digestive tract; Z87.891 Personal history of nicotine dependence; Z79.82 Long term (current) use of aspirin; Z79.899 Other long term (current) drug therapy; N18.31 Chronic kidney disease, stage 3a; E87.5 Hyperkalemia; F41.1 Generalized anxiety disorder; R73.9 Hyperglycemia, unspecified; D50.9 Iron deficiency anemia, unspecified; I07.1 Rheumatic tricuspid insufficiency; I27.20 Pulmonary hypertension, unspecified; I49.1 Atrial premature depolarization; I95.9 Hypotension, unspecified; Z99.81 Dependence on supplemental oxygen
CPT/HCPCS: 36415; 71045; 71046; 80048; 80053; 80162; 83605; 83880; 84484; 85007; 85025; 85027; 87040; 87070; 87205; 87804; 87811; 93005; 93306; 94640; 94667; 94668; 94761; 96365; 96367; 96375; 97161; 97165; 97530; 97535; 99285; J0456; J0696; J1160; J1650; J2405; J2919; J7512

== ENCOUNTER 2025-02-13 07:39 | Outpatient (OUT) | payer MEDICARE, SELFPAY ==
--- NOTE | 2025-02-13 07:48 | XR_ITS ---
[facility] [place] [id number] Patient Name: ALEKSANDR SANCHEZ MRN: [id number] date: 1940 Sex: F Assigned Patient Location: LAB Current Patient Location: LAB Accession/Order Number: [id number] Exam Date: 02/13/2025 08:02 Report Date: 02/13/2025 08:06 At the request of: SHELDON XIE Procedure: XR chest 2V PA AND LATERAL CHEST: CLINICAL HISTORY: pneumonia, congestive heart failure. Weakness. COMPARISON: 01/30/2025 and 01/25/2025 The lungs are hyperinflated. Similar minor residual parenchymal changes are present, greatest at the bases and asymmetric on the right. There is still minimal blunting of the right lateral costophrenic angle and a trace amount of fluid is not excluded. No developing consolidation or pneumothorax is seen. The cardiac, hilar and mediastinal silhouettes are stable. There is no vascular redistribution. The visualized bony structures are osteopenic. Minor degenerative changes are noted. XR/XR chest 2V IMPRESSION: OBSTRUCTIVE LUNG DISEASE WITH SIMILAR PARENCHYMAL CHANGES AND POTENTIAL MINIMAL RIGHT PLEURAL EFFUSION. Impression dictated by: Latonya Cueva M.D. 02/13/2025 8:06 AM Dictation Location: [place] [id number] Electronically authenticated by: [id number] Y Date: 02/13/2025 08:06
--- OUTSIDE RECORDS SUMMARY | 2025-02-13 07:49 | XMS_ITS | CCD ---
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 Name Role Phone Unavailable Unavailable Sheldon Xie R Unavailable Alireza Olvera Unavailable [phone] Sheldon Xie Unavailable Kuns, DO Sheldon Primary Care Provider Kuns, DO Sheldon Attending Provider [phone] Kuns, DO Sheldon Primary Care Provider Kuns, DO Sheldon Attending Provider Kuns, DO Sheldon Primary Care Provider Kuns, DO Sheldon Attending Provider Kuns, DO Sheldon Primary Care Provider Kuns, DO Sheldon Attending Provider HIEU Duran Attending Provider [phone] HIEU Duran Referring Provider Sammie Duran Unavailable Anne-Marie, DO Sheldon Primary Care Provider Kims, DO Sheldon Attending Provider HIEU Duran Attending Provider [phone] HIEU Duran Referring Provider Kims, DO Sheldon Primary Care Provider Kims, DO Sheldon Attending Provider [phone] HIEU Duran Attending Provider SAMMIE DURAN Attending Unavailable ROGER, SAMMIE Consulting Unavailable ANNE-MARIE, DR CHUNG Primary Care Unavailable ROGER, SAMMIE Admitting Unavailable KUNIshmael, DR CHUNG Primary Care Unavailable SAMSA ., ELMA Attending Unavailable SAMSA ., ELMA Admitting Unavailable SAMSA ., ELMA Admitting Unavailable SAMSA ., ELMA Attending Unavailable SAMSA ., ELMA Consulting Unavailable ANNE-MARIE, DR CHUNG Referring Unavailable KUNIshmael, DR CHUNG Primary Care Unavailable ROGER, SAMMIE Admitting Unavailable ROGER, SAMMIE Attending Unavailable ROGER, SAMMIE Attending Unavailable KUNIshmael, DR CHUNG Primary Care Unavailable ROGER, SAMMIE Admitting Unavailable KUNIshmael, DR CHUNG Primary Care Unavailable ROGER, SAMMIE Consulting Unavailable ROGER, SAMMIE Admitting Unavailable ROGER, SAMMIE Attending Unavailable ROGER, SAMMIE Admitting Unavailable KUNIshmael, DR CHUNG Primary Care Unavailable ROGER, SAMMIE Consulting Unavailable ROGER, SAMMIE Attending Unavailable ROGER, SAMMIE Attending Unavailable ROGER, SAMMIE Consulting Unavailable ANNE-MARIE, DR CHUNG Primary Care Unavailable SAMMIE DURAN Admitting Unavailable DO Sheldon Xie Primary Care Provider [phone] DO Sheldon Xie Attending Provider Dre Looney Unavailable DO Sheldon Xie Primary Care Provider DO Sheldon Xie Attending Provider MD Dre Looney Attending Provider SHELDON XIE Referring Unavailable SHELDON XIE Primary Care Unavailable DO Sheldon Xie Primary Care Provider MD Dre Looney Attending Provider DO Sheldon Xie Attending Provider [phone] HIEU Duran Attending Provider [phone] DO Sheldon Xie Primary Care Provider MD Dre Looney Attending Provider Kuns, DO Sheldon Primary Care Provider Kuns, DO Sheldon Attending Provider [phone] Kuns DO, Sheldon R Primary Care Provider Unavailab le Kuns, DO Sheldon Primary Care Provider Kuns, DO Sheldon Attending Provider Kuns, DO Sheldon Primary Care Provider [phone] Kuns, DO Sheldon Attending Provider Kuns DO, Sheldon Primary Care Provider Kuns DO, Sheldon Attending Provider Unavailable Primary Care Provider Unavailabl e Kuns DO, Sheldon Primary Care Provider [phone] Kuns DO, Sheldon Attending Provider Kuns, Sheldon Primary Care Unavailable Kuns, Sheldon Attending Unavailable Kuns, Sheldon Admitting Unavailable Kuns, Sheldon Primary Care Unavailable AureDre melton Admitting Unavaila ble Aure, Dre Ortiz Attending Unavaila ble Kuns, Sheldon Primary Care Unavailable Kuns, Sheldon Attending Unavailable Kuns, Sheldon Admitting Unavailable Kuns, Sheldon Primary Care Unavailable Kuns, Sheldon Attending Unavailable Kuns, Sheldon Admitting Unavailable Kuns, Sheldon Primary Care Unavailable Kuns, Sheldon Attending Unavailable Kuns, Sheldon Admitting Unavailable Kuns, Sheldon Primary Care Unavailable Kuns, Sheldon Attending Unavailable Kuns, Sheldon Admitting Unavailable Kuns, Sheldon Primary Care Unavailable Kuns, Sheldon Attending Unavailable Kuns, Sheldon Admitting Unavailable Kuns DO, Sheldon R Primary Care Provider Kuns DO, Sheldon R Primary Care Provider [phone] TAMMY MELGAR Attending Unavailable RONNIE COLVIN Attending Unavailable KUNS, SHELDON R Primary Care Unavailable ARTEM DEL RIO Attending Unavailable Allergies Allergy Classification Reported Allergen(s) Allergy Type Date of Onset Reaction(s) Facility Botulinum Toxin Type A (1 source) Botulinum Toxin Type A Drug Allergy 4 dysphagia [facility] Opioid Agonists (1 source) Codeine Drug Allergy 4 Nausea, nauseated [facility] (20 sources) Codeine; Translations: [Codeine Derivatives] Drug Allergy 4 Nausea Only [facility] (20 sources) Botulinum Toxin Type A Drug Allergy dysphagia [facility] (20 sources) Codeine; Translations: [Codeine] Drug Allergy 9 Nausea, Nausea, nauseated [facility] (1 source) Botulinum Toxin Type A Drug Allergy 3 [facility] (20 sources) Botulinum Toxin Type A; Translations: [onabotulinumto xinA] Drug Allergy 3 dysphagia [facility] Medications Current Medications Medication Drug Class(es) Dates Sig (Normalized) Sig (Original) acetaminophen 325 mg oral tablet (20 sources) Start: 10-16-2023 Acetaminophen (Tylenol) 325 mg tablet Active MG PO October 16, 2023 1:00am FreeTextSi tablet as needed Orally every 7-8 hrs; Note: Source Status: Taking; Provider: Anne-Marie Nagy Start: 08-30-2018 Tylenol 325 MG 3 tablet as needed Orally every 7-8 hrs Aug, Active Start: 08-30-2018 albuterol 0.83 mg/ml inhalation solution (20 sources) beta2-Adrenergic Agonist Start: 11-15-2023 End: 05-16-2024 take 2.5 mg by inhalation three times daily Albuterol Sulfate 2.5 mg /3 mL (0.083 %) solution for nebulization Active 2.5 MG INHALATION Three times daily 180 May 16, 2024 9:33am Start: 10-16-2023 End: 11-15-2023 take 3 mL by inhalation three times daily Albuterol Sulfate 2.5 mg /3 mL (0.083 %) solution for nebulization Discontinued 2.5 MG INHALATION October 16, 2023 1:00am November 15, 2023 1:05pm FreeTextSi ml prefilled vials Inhalation Three times a day; Note: Source Status: Taking; Provider: Anne-Marie Nagy Start: 04-07-2022 Albuterol Sulf ate (2.5 MG/3ML) 0.083% 3 ml prefilled vials Inhalation Three times a day Nov, Active Start: 12-02-2021 Albuterol Sulf ate (2.5 MG/3ML) 0.083% 3 ml prefilled vials Inhalation Three times a day Nov, Active Start: 12-02-2021 Albuterol Sulf ate (2.5 MG/3ML) 0.083% 3 ml prefilled vials Inhalation Three times a day for 30 days Nov, Active Start: 12-02-2021 Albuterol Sulf ate (2.5 MG/3ML) 0.083% 3 ml Inhalation BID PRN Nov, Active arformoterol 0.0075 mg/ml inhalation solution (6 sources) beta2-Adrenergic Agonist take 2 mL by inhalation twice daily Arformoterol Tartrate 15 MCG/2ML 2 mL Inhalation Twice a day Active take 2 mL by inhalation twice da saira Arformoterol Tartrate 15 MCG/2ML 2 mL Inhalation Twice a day Active aspirin 81 mg delayed release oral tablet (20 sources) Platelet Aggregation Inhibitor, Nonsteroidal Anti-inflammatory Drug Start: 07-23-2018 take 1 tablet by mouth once daily Aspirin (Aspir-81) 81 mg Tablet,Delayed Release (Dr/Ec) Active 81 MG PO Daily July 23, 2018 1:00am take 1 tablet by son th every twenty-four hours Aspirin 81 MG 1 tablet Orally Once a day Active take 1 tablet by mouth three mary es weekly Aspirin 81 MG 1 tablet Orally Three times a week Active augmented betamethasone 0.5 mg/ml topical cream (20 sources) Corticosteroid Start: 11-06-2023 Betamethasone, Augmented 0.05 % cream Active 1 APPLIC TOPICAL Twice daily November 06, 2023 12:00am FreeTextSi application Externally BID; Note: Source Status: Taking; Refills: 2; Qty: 30 Gram; Provider: Anne-Marie Nagy Start: 11-06-2023 Betamethasone, Augmented Active 1 APPLIC TOPICAL Twice daily November 06, 2023 12:00am FreeTextSi application Externally BID; Note: Source Status: Taking; Refills: 2; Qty: 30 Gram; Provider: Anne-Marie Nagy Start: 09-01-2022 Betamethasone Dipropionate Aug 0.05 % 1 application Externally BID Aug, Active Start: 09-01-2022 Betamethasone Dipropionate Aug 0.05 % 1 application Externally BID Aug, Active brimonidine tartrate 2 mg/ml / timolol 5 mg/ml ophthalmic solution (20 sources) alpha-Adrenergic Agonist, beta-Adrenergic Mart Start: 12-27-2018 End: 03-07-2019 Brimonidine-Timolol (Combigan) 0.2-0.5 % Drops Active 1 DROPS EYE-BOTH Twice daily March 07, 2019 12:00am Start: 07-23-2018 End: 12-27-2018 Brimonidine-Timolol (Combiga n) 0.2-0.5 % drops Discontinued SOLUTION/ DROPS July 23, 2018 1:00am December 27, 2018 9:43am brimonidine-eben loL (Combigan) 0.2-0.5 % ophthalmic solution Administer 1 drop into both eyes every 12 hours. Active take 1 drop(s) into the eye(s) twice daily Combigan 0.2-0.5 % 1 drop into affected eye Ophthalmic Twice a day Active take 1 drop(s) into the eye(s) twice daily Combigan 0.2-0.5 % Ophthalmic Solution One drop in each eye twice daily Quantity: 0 Refills: 0 Ordered: 08-Feb-2022 DO Active calcium carbonate 1250 mg oral tablet (20 sources) take 1 tablet by son th every twelve hours Calcium 500 MG 1 tablet with meals Orally Twice a day Active take 1 tablet by son th every twenty-four hours Calcium 600 MG 1 tablet with meals Orally Once a day Active calcium carbonate 1250 mg / cholecalciferol 200 unt oral tablet (20 sources) Vitamin D Start: 12-27-2018 Calcium Carbon ate-Vitamin D3 (Calcium 500 + D) 500 mg(1,250mg) -200 unit Tablet Active 1 TAB PO Daily December 27, 2018 12:00am take 1 tablet by mouth twice genaro ly Calcium + D 600-200 MG-UNIT 1 tablet Orally Twice a day Active take 1 tablet by mouth every twe lve hours Calcium + D 600-200 MG-UNIT 1 tablet Orally Twice a day Active take 1 tablet by mouth every twe lve hours CALCIUM CARBONATE-VITAMIN D3 ORAL (1 source) take 1 tablet by mouth once daily CALCIUM CARBONATE-VITAMIN D3 ORAL Take 1 tablet by mouth once daily. Active carvedilol 6.25 mg oral tablet (20 sources) alpha-Adrenergi c Mart, beta-Adrenergic Mart Start: 07-23-20 take 1 tablet by mouth twice daily Carvedilol 6.25 mg tablet Active 6.25 MG PO Twice daily July 23, 2018 1:00am take 1 tablet by son th twice daily at mealtime Coreg 6.25 1 tablet with food Orally Twice a day Active cefdinir 300 mg oral capsule (1 source) Cephalosporin Antibacterial Start: 12-02-2021 take 1 capsule by mouth every twelve hours Cefdinir 300 MG 1 capsule Orally BID for 10 day(s) Nov, Active Centrum (20 sources) take 1 tablet by mouth once den y Centrum 1 tablet Orally once a day Active Ciprofloxacin / Dexamethasone (20 sources) Corticosteroid, Quinolone Antimicrobial Start: 03-19-2024 Ciprofloxacin-Dexamethasone Active 4 DROPS EAR-RIGHT Daily at bedtime 7.5 March 19, 2024 2:24pm 4 drops to right ear QHS Start: 12-27-2018 End: 03-19-2024 Ciprofloxacin-Dexamethasone 0.3-0.1 % drops,suspension Discontinued 5 DROPS EAR-RIGHT Daily at bedtime December 27, 2018 12:00am March 19, 2024 2:25pm Ciprodex Active Ciprodex 0.3-0.1 % Otic Suspension INSTILL 5 DROP Bedtime Quantity: 0 Refills: 0 Ordered: 08-Feb-2022 DO Active Ciprofloxacin-Dexamethasone 0.3-0.1 % drops,suspension (4 sources) Start: 03-19-2024 Ciprofloxacin-Dexamethasone 0.3-0.1 % drops,suspension Active 4 DROPS EAR-RIGHT Daily at bedtime 7.5 March 19, 2024 2:24pm 4 drops to right ear QHS Start: 03-19-2024 Ciprofloxacin- Dexamethasone 0.3-0.1 % drops,suspension Active 4 DROPS EAR-RIGHT Daily at bedtime 7.5 March 19, 2024 1:24pm 4 drops to right ear QHS clonazePAM 0.5 mg oral tablet (20 sources) Benzodiazepine Start: 07-23-2018 End: 12-18-2024 take 1 tablet by mouth once daily at bedtime Clonazepam 0.5 mg tablet Active 0.5 MG PO Daily at bedtime 90 90 December 18, 2024 11:11am cyclobenzaprine hydrochloride 10 mg oral tablet (1 source) Muscle Relaxant Start: 03-07-2023 take 0.5 tablet by mouth once daily Cyclobenzaprine HCl 10 MG 1/2 tablet Orally Once a day for 30 days Feb, Active Eye Multivitamin/Lutein (2 sources) Eye Multivitamin/Lutein Active Fluticasone-Umeclidi n-Vilanter (20 sources) Anticholinergic, Corticosteroid, beta2-Adrenergic Agonist Start: 12-24-2024 Fluticasone-Umeclid in-Vilanter (Trelegy Ellipta) 100-62.5-25 mcg blister with device Active 1 INH INHALATION Daily 3 December 24, 2024 3:00pm Start: 09-19-2024 End: 12-24-2024 Beklwmmimth-Qrxjkfrhl-Dmfyqe er (Trelegy Ellipta) 100-62.5-25 mcg blister with device Discontinued 1 INH INHALATION Daily 60 September 19, 2024 2:01pm December 24, 2024 3:01pm Start: 09-19-2024 Fluticasone-Um eclidin-Vilanter (Trelegy Ellipta) 100-62.5-25 mcg blister with device Active 1 INH INHALATION Daily 60 September 19, 2024 2:01pm Start: 09-19-2024 Fluticasone-Um eclidin-Vilanter (Trelegy Ellipta) 100-62.5-25 mcg blister with device Active 1 INH INHALATION Daily 60 September 19, 2024 1:01pm Start: 10-16-2023 End: 09-19-2024 take 1 puff(s) by inhalation once daily Mjtdthnwplw-Awvdhtinb-Detnsczu (Trelegy Ellipta) 100-62.5-25 mcg blister with device Discontinued 1 INH INHALATION Daily October 16, 2023 1:00am September 19, 2024 2:02pm FreeTextSi puff Inhalation Once a day; Note: Source Status: Taking; Refills: 3; Provider: Anne-Marie Nagy Start: 10-16-2023 End: 09-19-2024 take 1 puff(s) by inhalation once daily Vqgtacrsbes-Kbsyxmtsd-Esigydav (Trelegy Ellipta) 100-62.5-25 mcg blister with device Discontinued 1 INH INHALATION Daily October 16, 2023 12:00am September 19, 2024 1:02pm FreeTextSi puff Inhalation Once a day; Note: Source Status: Taking; Refills: 3; Provider: Anne-Marie Nagy Start: 10-16-2023 take 1 puff(s) by inhalation once daily Dmqmezyysce-Wuyhxsnfc-Cpozfwur (Trelegy Ellipta) 100-62.5-25 mcg blister with device Active 1 INH INHALATION Daily October 16, 2023 1:00am FreeTextSi puff Inhalation Once a day; Note: Source Status: Taking; Refills: 3; Provider: Anne-Marie Nagy Start: 10-16-2023 take 1 puff(s) by inhalation once daily Ewqehwfwgvn-Folgsylfj-Ajlnsdjm (Trelegy Ellipta) 100-62.5-25 mcg blister with device Active 1 INH INHALATION Daily October 16, 2023 12:00am FreeTextSi puff Inhalation Once a day; Note: Source Status: Taking; Refills: 3; Provider: Anne-Marie Nagy Start: 12-07-2018 take 1 puff(s) by inhalation once daily Trelegy Ellipta 100-62.5-25 MCG/INH 1 pu ff Inhalation Once a day Nov, Active Start: 12-07-2018 fluticasone-umec lidin-vilanter (TRELEGY-ELLIPTA) 100-62.5-25 mcg blister with device Inhale 1 puff. Active Trelegy Ellipta 100-62.5-25 MCG/INH AEPB as directed Quantity: 0 Refills: 0 Ordered: 08-Feb-2022 DO Active 12 hr guaiFENesin 600 mg extended release oral tablet (20 sources) Start: 03-10-2019 take 2 tablets by mouth twice daily for congestion, then take 1 tablet by mouth twice daily for congestion Guaifenesin (Mucinex) 600 mg Tablet Extended Release 12hr Active 1200 MG PO Twice daily 56 March 10, 2019 12:00am take scheduled for 7 days, then may take twice daily as need for congestion latanoprost 0.05 mg/ml ophthalmic solution (20 sources) Prostaglandin Analog Start: 07-23-2018 Latanoprost 0.005 % drops Active 0.005 PERCENT EYE-RIGHT Daily at bedtime July 23, 2018 1:00am take 1 drop(s) into the eye(s) once daily latanoprost (Xalatan) 0.005 % ophthalmic solution Administer 1 drop into both eyes once daily. Active take 1 drop(s) into the eye(s) once daily in the evening Latanoprost 0.005 % 1 drop into affected eye in the evening Ophthalmic Once a day Active take 1 drop(s) into the eye(s) at bedtime Latanoprost 0.005 % Ophthalmic Solution INSTILL 1 DROP IN BOTH EYES AT BEDTIME. Quantity: 0 Refills: 0 Ordered: 08-Feb-2022 DO Active lisinopril 2.5 mg oral tablet (20 sources) Angiotensin Converting Enzyme Inhibitor Start: 02-09-2024 End: 02-08-2025 take 1 tablet by mouth once daily Lisinopril 2.5 mg tablet Active 2.5 MG PO Daily March 19, 2024 12:00am Start: 11-06-2023 End: 03-19-2024 take 1 tablet by mouth once daily Lisinopril 10 mg tablet Discontinued 10 MG PO Daily November 06, 2023 12:00am March 19, 2024 2:17pm FreeTextSi tablet Orally Once a day; Note: Source Status: Taking; Provider: Aure Erickson ( ) Start: 10-16-2023 End: 11-06-2023 take 2 tablets by mouth once daily Lisinopril 5 mg tablet Discontinued 10 MG PO Daily October 16, 2023 11:20am November 06, 2023 11:33am Start: 10-16-2023 End: 11-06-2023 take 10 mg by mouth once daily Lisinopril Discontinued 10 MG PO Daily October 16, 2023 11:20am November 06, 2023 11:33am Start: 01-05-2022 take 1 tablet by son once daily Lisinopril 10 MG Oral Tablet TAKE 1 TABLET BY MOUTH DAILY Quantity: 90 Refills: 3 Ordered: 22-Nov-2022 Ronnie Colvin MD Start : 05-Jan-2022 Active Start: 07-23-2018 End: 10-16-2023 take 1 tablet by mouth once daily Lisinopril 5 mg tablet Discontinued 5 MG PO Daily July 23, 2018 1:00am October 16, 2023 11:21am Drtxivbi-Zft-Ib-Lycopen-Lute in (Centrum Silver) 0.4-300-250 mg-mcg-mcg Tablet (20 sources) Start: 12-27-2018 take 1 tablet by mouth once daily Nsoibntm-Toq-Sn-Lycopen-Lutein (Centrum Silver) 0.4-300-250 mg-mcg-mcg Tablet Active 1 TAB PO Daily December 26, 2018 11:00pm Start: 12-27-2018 take 1 tablet by son th once daily Bmivdbcd-Pef-By-Lycopen-Lutein (Centrum Silver) 0.4-300-250 mg-mcg-mcg Tablet Active 1 TAB PO Daily December 27, 2018 12:00am multivitamin with minerals iron-free (Centrum Silver) (2 sources) take 1 tablet by son th once daily multivitamin with minerals iron-free (Centrum Silver) Take 1 tablet by mouth once daily. Active End: 02-09-2024 take 1 tablet by mouth once daily multivitamin with minerals iron-free (Centrum Silver) Take 1 tablet by mouth once daily. 02/09/2024 Discontinued (Duplicate order) Nature's Eye Vitamin (20 sources) Start: 12-27-2018 take 2 capsules by mouth twice daily Nature's Eye Vitamin Active 2 CAP PO Twice daily December 26, 2018 11:00pm Start: 12-27-2018 take 2 capsules by m out twice daily Nature's Eye Vitamin Active 2 CAP PO Twice daily December 27, 2018 12:00am Nebulizer Machine & Supplies (11 sources) Start: 05-30-2023 Nebulizer Mach ine & Supplies As directed May, Active Start: 03-18-2019 Nebulizer Mach ine & Supplies As directed Feb, Not-Taking Start: 03-18-2019 Start: 03-18-2019 Nebulizer Mach ine & Supplies As directed Feb, Active pravastatin sodium 40 mg oral tablet (20 sources) HMG-CoA Reductase Inhibitor Start: 07-23-2018 take 10 mg by mouth once daily Pravastatin 40 mg tablet Active 10 MG PO Daily July 23, 2018 1:00am Start: 07-23-2018 take 10 mg by mouth once daily Pravastatin Active 10 MG PO Daily July 23, 2018 1:00am End: 02-09-2024 take 1 tablet by mouth once daily at bedtime pravastatin (Pravachol) 40 mg tablet Take 1 tablet (40 mg) by mouth once daily at bedtime. 02/09/2024 Discontinued revefenacin 0.0583 mg/ml inhalation solution (6 sources) take 3 mL by inhalation once daily Yupelri 175 MCG/3ML 3 mL Inhalation Once a day Active 1.17 ml romosozumab-aqqg 89.7 mg/ml prefilled syringe (1 source) romosozumab-aqqg (Evenity) 105 mg/1.17 mL syringe Inject under the skin every 30 (thirty) days. Active torsemide 10 mg oral tablet (20 sources) Loop Diuretic Start: 2 End: 4 take 1 tablet by mouth once daily Torsemide 10 mg tablet Active 10 MG PO Daily October 16, 2023 1:00am FreeTextSi tablet Orally Once a day; Note: Source Status: Taking; Provider: Aure Erickson ( ) vit Z-K-elibrd-zinc-lute in (Eye Multivit-Lutein,C-E- Cu-Zn,) 226 mg-90 mg-2 mg-34.8 mg-5 mg capsule (1 source) vit M-Q-lgzvjf-zinc-lutein (Eye Multivit-Lutein,C-E-Cu- Zn,) 226 mg-90 mg-2 mg-34.8 mg-5 mg capsule Take 1 tablet by mouth see administration instructions. Active Vitamin D 25 MCG (1000 UT) (20 sources) take 1 tablet by mouth once daily Vitamin D 25 MCG (1000 UT) 1 tablet Orally Once a day Active {20 (nirmatrelvir 150 MG Oral Tablet) / 10 (ritonavir 100 MG Oral Tablet) } Pack [Paxlovid 5-Day] (3 sources) Start: 2 take 3 tablets by mouth every twelve hours Paxlovid (300/100) 20 x 150 MG & 10 x 100MG 3 tablets Orally Twice a day for 5 day(s) Jul, Active Completed/Discontinued Medications Medication Drug Class(es) Dates Sig (Normalized) Sig (Original) acetaminophen 325 mg / HYDROcodone bitartrate 5 mg oral tablet (20 sources) Opioid Agonist Start: 07-23-2018 End: 07-27-2018 Hydrocodone-Acetami nophen (Longs) 5-325 mg tablet Discontinued 0.5 TAB PO every 6 to 8 hours as needed for pain, severe 16 4 July 23, 2018 July 26, 2018 1:00am July 27, 2018 1:02am Albuterol Sulfate (2.5 MG/ 3 ML) 2.5 MG/3ML 0.083% Nebulization Solution (8 sources) Start: 03-18-2019 Albuterol Sulfate (2.5 MG/ 3 ML) 2.5 MG/3ML 0.083% Nebulization Solution 3ml Inhalation 4 times a day PRN Feb, Not-Taking Start: 03-18-2019 Start: 03-18-2019 Albuterol Sulf ate (2.5 MG/ 3 ML) 2.5 MG/3ML 0.083% Nebulization Solution 3ml Inhalation 4 times a day PRN Feb, Active azithromycin 250 mg oral tablet (9 sources) Macrolide Antimicrobial Start: 05-16-2024 End: 06-06-2024 Azithromycin (Zithromax Z-Finn) 250 mg tablet Discontinued 0 PO .COMPLEX May 16, 2024 12:00am June 06, 2024 4:01pm For 250 mg dose pack: take 500 mg today (day 1), then 250 mg for 4 days (days 2-5) PO benzonatate 100 mg oral capsule (20 sources) Non-narcotic Antitussive Start: 03-10-2019 End: 09-27-2019 take 1 capsule by mouth three times daily as needed for cough Benzonatate 100 mg Capsule Discontinued 100 MG PO Three times daily as needed for cough March 10, 2019 12:00am September 27, 2019 12:07pm Calcium (5 sources) Phosphate Binder, Calcium Calcium 500/Vitamin D TABS Take 1 tablet daily Quantity: 0 Refills: 0 Ordered: 08-Feb-2022 DO Active Centrum Silver Oral Tablet (5 sources) take 1 tablet by mouth once daily Centrum Silver Oral Tablet TAKE 1 TABLET DAILY. Quantity: 0 Refills: 0 Ordered: 08-Feb-2022 DO Active cholecalciferol 0.025 mg oral capsule (20 sources) Vitamin D Start: 11-06-2023 End: 11-15-2023 take 1 capsule by mouth once daily Cholecalciferol (Vitamin D3) 25 mcg (1,000 unit) capsule Discontinued 25 MCG PO Daily November 06, 2023 12:00am November 15, 2023 12:44pm take 1 tablet by son th every twenty-four hours Vitamin D 25 MCG (1000 UT) 1 tablet Orally Once a day Active citalopram 10 mg oral tablet (20 sources) Serotonin Reuptake Inhibitor Start: 11-15-2023 End: 12-24-2024 take 1 tablet by mouth once daily Citalopram (Celexa) 10 mg tablet Discontinued 10 MG PO Daily November 15, 2023 12:00am December 24, 2024 2:39pm Start: 04-21-2021 take 1 tablet by son th every twenty-four hours Citalopram Hydrobromide 10 MG 1 tablet Orally Once a day Mar, Active 1 ml denosumab 60 mg/ml prefilled syringe (20 sources) RANK Ligand Inhibitor Start: 11-06-2023 End: 12-14-2023 Denosumab (Prolia) 60 mg/mL syringe Discontinued 60 MG SUBCUT November 06, 2023 12:00am December 14, 2023 12:34pm FreeTextSi mg Subcutaneous q 6 months; Note: Source Status: Not-TakingundefinedPRN; Provider: Anne-Marie Nagy Start: 09-12-2019 Prolia 60 MG/M L 60 mg Subcutaneous q 6 months Aug, Not-Taking/PRN esomeprazole 20 mg delayed release oral capsule (20 sources) Proton Pump Inhibitor Start: 12-27-2018 End: 12-27-2018 Esomeprazole Magnesium (Nexium) 20 mg Capsule,Delayed Release(Dr/Ec) Discontinued December 27, 2018 12:00am December 27, 2018 9:43am Start: 07-23-2018 take 1 capsule by mo [facility] once daily Esomeprazole Magnesium (Nexium) 20 mg Capsule,Delayed Release(Dr/Ec) Active 20 MG PO Daily July 23, 2018 1:00am take 1 tablet by son th once daily esomeprazole magnesium (NexIUM 24HR) 20 mg tablet,delayed release (DR/EC) Take 1 tablet by mouth once daily. Active Eye Multivitamin/Lutein CAPS (5 sources) Eye Multivitamin /Lutein CAPS TAKE DIRECTED. Quantity: 0 Refills: 0 Ordered: 08-Feb-2022 DO Active fluticasone propionate 0.05 mg/actuat metered dose nasal spray (20 sources) Corticosteroid Start: End: take 1 spray(s) nasal route twice daily Fluticasone Propionate 50 mcg/actuation spray,suspension Discontinued 1 SPRAY INTRANASAL Twice daily December 14, 2023 12:00am January 09, 2024 2:49pm administer into each nostril Start: 10-16-2023 End: 03-19-2024 take 1 spray(s) nasal route once daily Fluticasone Propionate 50 mcg/actuation spray,suspension Active 1 SPRAY INTRANASAL Daily March 19, 2024 2:21pm 1 spray in each nostril Nasally Once a day take 2 spray(s) nasa l route once daily fluticasone (Flonase) 50 mcg/actuation nasal spray Administer 2 sprays into each nostril once daily. Active take 1 spray(s) nasa l route once daily Fluticasone Propionate 50 MCG/ACT 1 spray in each nostril Nasally Once a day Active Fluticasone Prop ionate 50 MCG/ACT Nasal Suspension USE DIRECTED. Quantity: 0 Refills: 0 Ordered: 08-Feb-2022 DO Active Fluticasone Propion-Salmeterol (20 sources) Corticosteroid, beta2-Adrenergic Agonist Start: 12-27-2018 End: 09-27-2019 take 1 puff(s) by inhalation every twelve hours Fluticasone Propion-Salmeterol (Advair Hfa) 115-21 mcg/actuation Hfa Aerosol Inhaler Discontinued 1 PUFF INHALATION Q12H December 26, 2018 11:00pm September 27, 2019 11:07am Start: 12-27-2018 End: 09-27-2019 take 1 puff(s) by inhalation every twelve hours Fluticasone Propion-Salmeterol (Advair Hfa) 115-21 mcg/actuation Hfa Aerosol Inhaler Discontinued 1 PUFF INHALATION Q12H December 27, 2018 12:00am September 27, 2019 12:07pm Start: 07-23-2018 End: 12-27-2018 Fluticasone Propion-Salmeter ol (Advair Diskus) 250-50 mcg/dose blister with device Discontinued July 23, 2018 12:00am December 27, 2018 8:43am Start: 07-23-2018 End: 12-27-2018 Fluticasone Propion-Salmeter ol (Advair Hfa) 45-21 mcg/actuation Hfa Aerosol Inhaler Discontinued July 23, 2018 12:00am December 27, 2018 8:43am Start: 07-23-2018 End: 12-27-2018 Fluticasone Propion-Salmeter ol (Advair Diskus) 250-50 mcg/dose blister with device Discontinued July 23, 2018 1:00am December 27, 2018 9:43am Start: 07-23-2018 End: 12-27-2018 Fluticasone Propion-Salmeter ol (Advair Hfa) 45-21 mcg/actuation Hfa Aerosol Inhaler Discontinued July 23, 2018 1:00am December 27, 2018 9:43am ibandronic acid 150 mg oral tablet (20 sources) Bisphosphonate Start: 03-07-2019 End: 10-17-2023 take 1 tablet by mouth every month Ibandronate (Boniva) 150 mg Tablet Discontinued 150 MG PO every month March 07, 2019 12:00am October 17, 2023 3:56pm Takes on the of the month ketoconazole 20 mg/ml medicated shampoo (20 sources) Azole Antifungal Start: 11-06-2023 End: 12-24-2024 Ketoconazole 2 % shampoo Discontinued 1 APPLIC TOPICAL Twice a Week November 06, 2023 12:00am December 24, 2024 2:40pm Start: 02-06-2019 Start: 02-06-2019 Nizoral 2% as directed applied topically twice a day Jan, Active Ketorolac (20 sources) Nonsteroidal Anti-inflammatory Drug, Cyclooxygenase Inhibitor Start: 09-06-2016 Toradol p er 15 mg Aug, 2 cc Start: 09-01-2016 Toradol per 15 mg Aug, 2 cc levoFLOXacin 500 mg oral tablet (20 sources) Quinolone Antimicrobial Start: 03-10-2019 End: 10-13-2023 take 1 tablet by mouth once daily Levofloxacin (Levaquin) 500 mg tablet Discontinued 500 MG PO Daily 5 5 March 10, 2019 12:00am October 13, 2023 11:22am loteprednol etabonate 5 mg/ml ophthalmic suspension (20 sources) Start: 07-23-2018 End: 11-15-2023 Loteprednol Etabonate 0.5 % drops,suspension Discontinued 0.5 PERCENT EYE-BOTH Q48H July 23, 2018 1:00am November 15, 2023 12:45pm End: 02-09-2024 loteprednol (Lotemax) 0.5 % ophthalmic suspension 4 times a day. 02/09/2024 Discontinued (Therapy completed) Lotemax 0.5 % Op hthalmic Gel USE DIRECTED. Quantity: 0 Refills: 0 Ordered: 08-Feb-2022 DO Active take 1 drop(s) into the eye(s) every other day Lotemax 0.5 % INSTILL 1 DROP IN EACH EYE EVERY OTHER DAY Ophthalmic for 30 Active methylPREDNISolone 4 mg oral tablet (13 sources) Corticosteroid Start: 01-29-2024 End: 03-19-2024 Methylprednisolone (Medrol (Finn)) 4 mg tablets,dose pack Discontinued 4 MG PO As Directed January 29, 2024 12:00am March 19, 2024 2:17pm POLYETHYLENE GLYCOL 3350 (7 sources) Osmotic Laxative MiraLax - 1 pac ket mixed with 8 ounces of fluid Orally Once a day for 30 day(s) Not-Taking MiraLax - 1 pack et mixed with 8 ounces of fluid Orally Once a day for 30 day(s) Active potassium chloride 10 meq extended release oral capsule (20 sources) Start: 10-16-2023 End: 09-23-2024 take 2 capsules by mouth once Potassium Chloride 10 mEq capsule, extended release Discontinued 20 MEQ PO Once 180 September 19, 2024 2:02pm September 23, 2024 1:27pm Start: 12-04-2017 End: 10-16-2023 take 1 capsule by mouth twice daily Potassium Chloride 10 mEq capsule, extended release Discontinued 10 MEQ PO Twice daily July 23, 2018 1:00am October 16, 2023 11:21am Start: 12-04-2017 take 2 capsules by m outh once daily at bedtime Potassium Chloride 10 MEQ 2 capsules Orally QHS for 90 days Nov, Active take 2 tablets by mo uth once daily potassium chloride CR 10 mEq ER tablet Take 2 tablets (20 mEq) by mouth once daily. Active predniSONE 10 mg oral tablet (20 sources) Start: 03-10-2019 End: 09-27-2019 take 4 tablets by mouth once daily, then take 3 tablets by mouth once daily, then take 2 tablets by mouth once daily, then take 1 tablet by mouth once daily Prednisone 10 mg tablet Discontinued 10 MG PO Daily March 10, 2019 12:00am September 27, 2019 12:05pm starting 03/11 4tabs daily x3days, then 3tabs daily x3days, then 2tabs daily x3days, then 1tab daily x3days tiotropium 0.018 mg inhalation powder (20 sources) Anticholinergic Start: 12-27-2018 End: 09-27-2019 take 1 capsule by inhalation once daily Tiotropium [place] (Spiriva With Handihaler) 18 mcg Capsule, W/Inhalation Device Discontinued 18 MCG INHALATION Daily December 27, 2018 12:00am September 27, 2019 12:07pm Start: 07-23-2018 End: 12-27-2018 Tiotropium [place] (Spiriva With Handihaler) 18 mcg capsule, w/inhalation device Discontinued July 23, 2018 1:00am December 27, 2018 9:43am Problems Active Problems Problem Classification Problem Date Documented Da te Episodic/Chronic Abdominal pain (3 sources) Unspecified abdominal pain Episodic Anxiety disorders (20 sources) Mixed anxiety and depressive disorder; Translations: [Other specified anxiety disorders] Chronic Blindness and vision defects (1 source) Unspecified visual disturbance Episodic Cardiac dysrhythmias (2 sources) Paroxysmal supraventricular tachycardia; Translations: [Paroxysmal supraventricular tachycardia (CMS-HCC)] Onset: 4 02-09-2024 Chronic Chronic obstructive pulmonary disease and bronchiectasis (20 sources) Chronic obstructive lung disease; Translations: [Chronic airway obstruction, not elsewhere classified] Onset: 2 Resolved: 2 Chronic Chronic obstructive pulmonary disease and bronchiectasis (20 sources) Bronchitis; Translations: [Bronchitis, not specified as acute or chronic] 03-08-2019 Episodic Congestive heart failure; nonhypertensive (20 sources) Chronic heart failure; Translations: [Heart failure, unspecified] Chronic Coronary atherosclerosis and other heart disease (20 sources) Angina pectoris; Translations: [Angina pectoris, unspecified] Chronic Diseases of mouth; excluding dental (15 sources) Sialoadenitis; Translations: [Sialoadenitis, unspecified] Onset: 2 Resolved: 2 Episodic Disorders of lipid metabolism (20 sources) Hyperlipidemia; Translations: [Other and unspecified hyperlipidemia] Onset: 2 Resolved: 2 Chronic E Codes: Fall (10 sources) Fall; Translations: [Unspecified fall, initial encounter] Onset: 4 06-18-2024 Episodic Esophageal disorders (20 sources) Gastroesophageal reflux disease; Translations: [Gastro-esophageal reflux disease without esophagitis] 03-07-2019 Chronic Essential hypertension (20 sources) Benign essential hypertension; Translations: [Benign essential hypertension] Onset: 2 Resolved: 2 Chronic Fracture of lower limb (20 sources) Closed fracture of foot; Translations: [Unspecified fracture of right foot, initial encounter for closed fracture] Episodic Glaucoma (20 sources) Glaucoma; Translations: [Unspecified glaucoma] 03-07-2019 Chronic Immunizations and screening for infectious disease (11 sources) Encounter for immunization; Translations: [Needs influenza immunization] Episodic Malaise and fatigue (17 sources) Other fatigue; Translations: [Fatigue] Episodic Menopausal disorders (20 sources) Menopause present; Translations: [Menopausal and female climacteric states] Chronic Mood disorders (20 sources) Depressive disorder; Translations: [Major depressive disorder, single episode, unspecified] Onset: 2 Resolved: 2 Chronic Osteoarthritis (20 sources) Chronic osteoarthritis; Translations: [Unspecified osteoarthritis, unspecified site] Chronic Osteoporosis (20 sources) Osteoporosis; Translations: [Age-related osteoporosis without current pathological fracture] Onset: 2 Resolved: 2 Chronic Other aftercare (1 source) Encounter for palliative care Episodic Other bone disease and musculoskeletal deformities (1 source) Other specified disorders of bone density and structure, unspecified site Episodic Other connective tissue disease (20 sources) Pain in right lower limb; Translations: [Pain in right leg] Episodic Other connective tissue disease (4 sources) Pain in right foot Episodic Other connective tissue disease (3 sources) Other symptoms and signs involving the musculoskeletal system; Translations: [Other musculoskeletal symptoms referable to limbs] 01-29-2024 Episodic Other ear and sense organ disorders (20 sources) Hearing loss; Translations: [Unspecified hearing loss, bilateral] 03-19-2024 Chronic Other ear and sense organ disorders (5 sources) Unspecified hearing loss, unspecified ear; Translations: [Unspecified hearing loss] 03-19-2024 Chronic Other ear and sense organ disorders (6 sources) Mixed conductive AND sensorineural hearing loss; Translations: [Mixed conductive and sensorineural hearing loss, unilateral, right ear with restricted hearing on the contralateral side] 09-20-2024 Chronic Other fractures (20 sources) Closed fracture sacrum; Translations: [Unspecified fracture of sacrum, subsequent encounter for fracture with routine healing] Episodic Other gastrointestinal disorders (20 sources) Constipation; Translations: [Constipation, unspecified] Episodic Other hereditary and degenerative nervous system conditions (20 sources) Restless legs; Translations: [Restless legs syndrome] 10-17-2023 Chronic Other hereditary and degenerative nervous system conditions (11 sources) Restless legs syndrome; Translations: [Restless legs syndrome (RLS)] Onset: 1 Resolved: 2 Chronic Other injuries and conditions due to external causes (20 sources) Hematoma; Translations: [Other injury of unspecified body region, initial encounter] 03-07-2019 Episodic Other injuries and conditions due to external causes (1 source) Unspecified injury of right foot, initial encounter Episodic Other lower respiratory disease (1 source) Dyspnea, unspecified Episodic Other lower respiratory disease (6 sources) Cough; Translations: [New onset cough] 05-16-2024 Episodic Other lower respiratory disease (6 sources) Rib pain; Translations: [Pleurodynia] 06-18-2024 Episodic Other non-traumatic joint disorders (19 sources) Hip pain; Translations: [Pain in left hip] 11-15-2023 Episodic Other nutritional; endocrine; and metabolic disorders (20 sources) Hypercalcemia; Translations: [Hypercalcemia] Chronic Other nutritional; endocrine; and metabolic disorders (2 sources) Hypercalcemia Chronic Other nutritional; endocrine; and metabolic disorders (6 sources) Abnormal weight loss; Translations: [Loss of weight] Onset: 5 Episodic Other nutritional; endocrine; and metabolic disorders (1 source) Weight decreased; Translations: [Abnormal weight loss] 12-24-2024 Episodic Other skin disorders (1 source) Other skin changes Episodic Other skin disorders (6 sources) Localized swelling, mass and lump, neck; Translations: [Swelling, mass, or lump in head and neck] 05-16-2024 Episodic Otitis media and related conditions (16 sources) Dysfunction of eustachian tube; Translations: [Unspecified Eustachian tube disorder, unspecified ear] 03-19-2024 Episodic Pathological fracture (4 sources) Age-related osteoporosis with current pathological fracture, unspecified site, initial encounter for fracture; Translations: [AGE-REL OP W/CURR PATH FX INIT ENC] Onset: 3 Episodic Peripheral and visceral atherosclerosis (20 sources) Peripheral vascular disease, unspecified; Translations: [Ischemic colitis] Onset: 1 Resolved: 2 Chronic Pulmonary heart disease (20 sources) Pulmonary hypertension; Translations: [Pulmonary hypertension, unspecified] Onset: 5 10-17-2023 Chronic Residual codes; unclassified (20 sources) Sleep apnea; Translations: [Sleep apnea, unspecified] 10-17-2023 Chronic Residual codes; unclassified (8 sources) Sleep apnea, unspecified; Translations: [Unspecified sleep apnea] Onset: 4 10-17-2023 Chronic Residual codes; unclassified (5 sources) Body mass index 20-24 - normal; Translations: [Body Mass Index between 19-24, adult] Episodic Residual codes; unclassified (20 sources) Insomnia; Translations: [Insomnia, unspecified] Episodic Residual codes; unclassified (2 sources) Edema, unspecified Onset: 2 Resolved: 2 Episodic Respiratory failure; insufficiency; arrest (adult) (20 sources) Acute respiratory failure; Translations: [Acute respiratory failure with hypoxia] 03-07-2019 Episodic Retinal detachments; defects; vascular occlusion; and retinopathy (20 sources) Degenerative disorder of macula ; Translations: [Unspecified macular degeneration] 03-19-2024 Chronic Spondylosis; intervertebral disc disorders; other back problems (20 sources) Cervical spondylosis without myelopathy; Translations: [Spondylosis without myelopathy or radiculopathy, cervical region] 11-15-2023 Chronic Spondylosis; intervertebral disc disorders; other back problems (20 sources) Pain in thoracic spine; Translations: [Sciatica] Onset: 2 Resolved: 2 Episodic Unclassified (1 source) Cough, unspecified; Translations: [Cough, unspecified] Onset: 4 Unclassified (1 source) Low back pain, unspecified; Translations: [Low back pain, unspecified] Onset: 4 Unclassified (1 source) Supraventricular tachycardia, unspecified (CMS-HCC); Translations: [Supraventricular tachycardia, unspecified (CMS-HCC)] Onset: 4 Past or Other Problems Problem Classification Problem Date Documented Date Episodic/Chronic Mycoses (1 source) Unspecified mycosis Onset: 11-24-2021 Resolved: 11-24-2021 Episodic Nonspecific chest pain (10 sources) Chest pain; Translations: [Chest pain, unspecified] Onset: 11-24-2021 Resolved: 11-24-2021 Episodic Other lower respiratory disease (6 sources) Dyspnea; Translations: [Other respiratory abnormalities] Onset: 08-31-2023 08-31-2023 Episodic Other lower respiratory disease (1 source) Shortness of breath Onset: 11-24-2021 Resolved: 11-24-2021 Episodic Other lower respiratory disease (7 sources) Pleurodynia; Translations: [Chest pain, unspecified] Onset: 03-22-2022 Resolved: 03-22-2022 Episodic Other lower respiratory disease (1 source) Other forms of dyspnea Onset: 03-22-2022 Resolved: 03-22-2022 Episodic Other lower respiratory disease (1 source) Hypoxemia; Translations: [HYPOXEMIA] Onset: 04-14-2022 Episodic Other non-traumatic joint disorders (19 sources) Pain in left hip; Translations: [Pain in joint, pelvic region and thigh] Onset: 11-20-2023 11-15-2023 Episodic Residual codes; unclassified (6 sources) Edema; Translations: [Edema] Onset: 08-31-2023 08-31-2023 Episodic Screening and history of mental health and substance abuse codes (9 sources) Ex-smoker; Translations: [Personal history of tobacco use] Onset: 02-09-2024 02-09-2024 Episodic Comment on above: Quit Smoking 1998 - smoked 1 PPD; Syncope (6 sources) Syncope; Translations: [Syncope and collapse] Onset: 08-31-2023 08-31-2023 Episodic Unclassified (1 source) Cough R05.9 Onset: 11-24-2021 Resolved: 11-24-2021 Unclassified (1 source) Acute cough R05.1 Unclassified (1 source) Onset: 02-09-2024 02-09-2024 Unclassified (1 source) Supraventricular tachycardia, unspecified (CMS-HCC); Translations: [Supraventricular tachycardia, unspecified (CMS-HCC)] Onset: 02-09-2024 Results Test Name Value Interpretation Reference Range Facility Abstracton 01-31-2025 Abstract [id number] Aleksandr Sanchez 1940 F Date Provider Department Center 01/31/2025 [id number]-TAVHSHELDON [facility] CARD [facility] No family history on file Normal [facility] Alanine aminotransferase [En zymatic activity/volume] in Serum or PlasmaOrdered By: Sheldon Xie on 11-14-2024 ALT [Catalytic activity/Vol] Alanine aminotransferase [Enzymatic activity/volume] in Serum or Plasma 752 [facility] Albumin [Mass/volume] in Ser um or Plasma by Bromocresol green (BCG) dye binding methoOrdered By: Sheldon Xie on 11-14-2024 Albumin BCG dye [Mass/Vol] Albumin [Mass/volume] in Serum or Plasma by Bromocresol green (BCG) dye binding metho 3.5-5.7 [facility] Alkaline phosphatase [Enzyma tic activity/volume] in Serum or PlasmaOrdered By: Sheldon Xie on 11-14-2024 ALP [Catalytic activity/Vol] Alkaline phosphatase [Enzymatic activity/volume] in Serum or Plasma 34-104 [facility] Aspartate aminotransferase [ Enzymatic activity/volume] in Serum or PlasmaOrdered By: Sheldon Xie on 11-14-2024 AST [Catalytic activity/Vol] Aspartate aminotransferase [Enzymatic activity/volume] in Serum or Plasma 13-39 [facility] Basophils Auto (Bld) [#/Vol] Ordered By: Sheldon Xie on 11-14-2024 Basophils (Bld) [#/Vol] Automated basoph il count 0.0-0.2 [facility] Basophils/100 WBC Auto (Bld) Ordered By: Sheldon Xie on 11-14-2024 Basophils/100 WBC (Bld) Automated basophil % . [facility] Bilirubin.total [Mass/volume ] in Serum or PlasmaOrdered By: Sheldon Xie on 11-14-2024 Bilirubin [Mass/Vol] Bilirubin.total [Mass/volume] in Serum or Plasma 0.3-1.0 [facility] Calcium [Mass/volume] in Ser um or PlasmaOrdered By: Sheldon Xie on 11-14-2024 Calcium [Mass/Vol] Calcium [Mass/volume ] in Serum or Plasma High 8.6-10.3 [facility] Carbon dioxide, total [Moles /volume] in Serum or PlasmaOrdered By: Sheldon Xie on 11-14-2024 CO2 [Moles/Vol] Carbon dioxide, tota l [Moles/volume] in Serum or Plasma High 21.0-31.0 [facility] Chloride [Moles/volume] in S cecilia or PlasmaOrdered By: Sheldon Xie on 11-14-2024 Chloride [Moles/Vol] Chloride [Moles/volume] in Serum or Plasma 98-107 [facility] Cholesterol [Mass/volume] in Serum or PlasmaOrdered By: Sheldon Xie on 11-14-2024 Cholesterol [Mass/Vol] Cholesterol [Mass/volume] in Serum or Plasma Low 140-200 [facility] Comment on above: Chol less than 200 m g/dl low riskChol 201-239 mg/dl borderline riskChol 240 mg/dl and greater high risk Cholesterol in HDL [Mass/vol ume] in Serum or PlasmaOrdered By: Sheldon Xie on 11-14-2024 Cholesterol in HDL [Mass/Vol] Serum or plasma high density lipoprotein (HDL) cholesterol measurement 23-92 [facility] Comment on above: HDL CHOL ATP-III CLA SSIFICATION Cardiovascular RiskHDL > or equal to 60 mg/dL LOWHDL < 40 mg/dL HIGH Cholesterol in LDL Calc [Mas s/Vol]Ordered By: Sheldon Xie on 11-14-2024 Cholesterol in LDL [Mass/Vol] Cholesterol in LDL [Mass/volume] in Serum or Plasma by calculation 0-100 [facility] Comment on above: LDL ATP III CLASSIFI CATIONLDL less than 100 mg/dL OptimalLDL 100-129 mg/dL Near or above optimalLDL 130-159 mg/dL Borderline highLDL 160-189 mg/dL HighLDL greater than 189 mg/dL Very high Cholesterol in VLDL Calc [Ma ss/Vol]Ordered By: Sheldon Xie on 11-14-2024 Cholesterol in VLDL [Mass/Vol] Cholesterol in VLDL [Mass/volume] in Serum or Plasma by calculation [facility] Complete Blood Count Auto Di ffon 11-14-2024 Basophils (Bld) [#/Vol] 0.1 10*3/uL Normal 0.0-0.2 [facility] Comment on above: Result Comment: PERF ORMED BY: [place] [address] PATHOLOGIST [employer] SUKUMAR SINGH M.D. Performed By: #### C MP, LIPID, TSH3, CBC #### [facility] [address] [place] [address] [place] Basophils/100 WBC (Bld) 1.0 % Normal . Martell hood [facility] Comment on above: Performed By: #### C MP, LIPID, TSH3, CBC #### [facility] [address] [place] [address] [place] Eosinophils (Bld) [#/Vol] 0.3 10*3/uL Normal 0.0-0.45 [facility] Comment on above: Performed By: #### C MP, LIPID, TSH3, CBC #### [facility] [address] [place] [address] [place] Eosinophils/100 WBC (Bld) 2.9 % Normal . [facility] Comment on above: Performed By: #### C MP, LIPID, TSH3, CBC #### [facility] [address] [place] [address] [place] Erythrocyte distribution width (RBC) [Ratio] 15.0 % Normal 11.9-15.3 [facility] Comment on above: Performed By: #### C MP, LIPID, TSH3, CBC #### [address] Hematocrit (Bld) [Volume fraction] 38.8 % Normal 34.0-46.4 [facility] Comment on above: Performed By: #### C MP, LIPID, TSH3, CBC #### [address] Hemoglobin (Bld) [Mass/Vol] 12.7 g/dL Normal 11.8-15.4 [facility] Comment on above: Performed By: #### C MP, LIPID, TSH3, CBC #### [address] Lymphocytes (Bld) [#/Vol] 1.6 10*3/uL Normal 1.00-4.8 [facility] Comment on above: Performed By: #### C MP, LIPID, TSH3, CBC #### [address] Lymphocytes/100 WBC (Bld) 16.8 % Normal . [facility] Comment on above: Performed By: #### C MP, LIPID, TSH3, CBC #### [address] MCH (RBC) [Entitic mass] 31.5 pg Normal 24.7-34.3 [facility] Comment on above: Performed By: #### C MP, LIPID, TSH3, CBC #### [address] MCV (RBC) [Entitic vol] 96.5 fL Normal 80-100 T [facility] Comment on above: Performed By: #### C MP, LIPID, TSH3, CBC #### [address] Mean Corpuscular HGB Conc 32.7 g/dL Normal 32.0-35.0 [facility] Comment on above: Performed By: #### C MP, LIPID, TSH3, CBC #### [address] [place] [address] [place] Monocytes (Bld) [#/Vol] 0.7 10*3/uL Normal 0.0-0.8 [facility] Comment on above: Performed By: #### C MP, LIPID, TSH3, CBC #### [place] [address] [place] Monocytes/100 WBC (Bld) 7.0 % Normal . T sana [facility] Comment on above: Performed By: #### C MP, LIPID, TSH3, CBC #### [address] Neutrophils (Bld) [#/Vol] 6.9 10*3/uL Normal 1.8-7.7 [facility] Comment on above: Performed By: #### C MP, LIPID, TSH3, CBC #### [address] Neutrophils/100 WBC (Bld) 72.3 % Normal . [facility] Comment on above: Performed By: #### C MP, LIPID, TSH3, CBC #### [place] [address] [place] NRBC% 0.1 /100{WBC} Normal 0-0.5 [facility] Comment on above: Performed By: #### C MP, LIPID, TSH3, CBC #### [place] [address] [place] Platelet mean volume (Bld) [Entitic vol] 8.9 fL Normal 6.3-10.7 [facility] Comment on above: Performed By: #### C MP, LIPID, TSH3, CBC #### [place] [address] [place] Platelets (Bld) [#/Vol] 381 10*3/uL Normal 150-450 [facility] Comment on above: Performed By: #### C MP, LIPID, TSH3, CBC #### [place] [address] [place] RBC (Bld) [#/Vol] 4.02 10*6/uL Normal 3.60-5.00 [facility] Comment on above: Performed By: #### C MP, LIPID, TSH3, CBC #### [address] WBC (Bld) [#/Vol] 9.5 10*3/uL Normal 3.8-11.6 [facility] Comment on above: Performed By: #### C MP, LIPID, TSH3, CBC #### [address] Comprehensive Metabolic Pane julisa 11-14-2024 Albumin [Mass/Vol] 4.0 g/dL Normal 3.5-5.7 [facility] Comment on above: Performed By: #### C MP, LIPID, TSH3, CBC #### [address] Albumin/Globulin [Mass ratio] 1.2 {ratio} Normal [facility] Comment on above: Performed By: #### C MP, LIPID, TSH3, CBC #### [address] ALP [Catalytic activity/Vol] 64 U/L Normal 34-104 [facility] Comment on above: Performed By: #### C MP, LIPID, TSH3, CBC #### [address] ALT [Catalytic activity/Vol] 12 U/L Normal 7-52 [facility] Comment on above: Performed By: #### C MP, LIPID, TSH3, CBC #### [address] Anion gap [Moles/Vol] 12.7 mmol/L Normal 6.0-15.0 Th e [facility] Comment on above: Performed By: #### C MP, LIPID, TSH3, CBC #### [address] AST [Catalytic activity/Vol] 20 U/L Normal 13-39 [facility] Comment on above: Performed By: #### C MP, LIPID, TSH3, CBC #### [facility] [address] Bilirubin [Mass/Vol] 0.6 mg/dL Normal 0.3-1.0 [facility] Comment on above: Performed By: #### C MP, LIPID, TSH3, CBC #### [facility] [address] Calcium [Mass/Vol] 10.4 mg/dL High 8.6-10.3 [facility] Comment on above: Performed By: #### C MP, LIPID, TSH3, CBC #### [address] Chloride [Moles/Vol] 102 mmol/L Normal 98-107 [facility] Comment on above: Performed By: #### C MP, LIPID, TSH3, CBC #### [address] CO2 [Moles/Vol] 31.8 mmol/L High 21.0-31.0 [facility] Comment on above: Performed By: #### C MP, LIPID, TSH3, CBC #### [address] Creatinine [Mass/Vol] 1.03 mg/dL Normal 0.60-1.20 [facility] Comment on above: Performed By: #### C MP, LIPID, TSH3, CBC #### [address] Estimated GFR 53.951 mL/Min Normal [facility] Comment on above: Performed By: #### C MP, LIPID, TSH3, CBC #### [address] Globulin (S) [Mass/Vol] 3.3 g/dL Normal T [facility] Comment on above: Performed By: #### C MP, LIPID, TSH3, CBC #### [address] Glucose [Mass/Vol] 80 mg/dL Normal 70-100 [facility] Comment on above: Result Comment: [place] Glucose Reference Range is dependent on time and content of last meal. Glucose of more than 200 mg/dL in a nonstressed, ambulatory subject supports the diagnosis of Diabetes Mellitus. ADA recommended reference range Performed By: #### C MP, LIPID, TSH3, CBC #### [facility] [address] Potassium [Moles/Vol] 4.5 mmol/L Normal 3.5-5.1 [facility] Comment on above: Performed By: #### C MP, LIPID, TSH3, CBC #### [facility] [address] Protein [Mass/Vol] 7.3 g/dL Normal 6.4-8.9 [facility] Comment on above: Performed By: #### C MP, LIPID, TSH3, CBC #### [address] Sodium [Moles/Vol] 142 mmol/L Normal 136-145 [facility] Comment on above: Performed By: #### C MP, LIPID, TSH3, CBC #### [address] Urea nitrogen [Mass/Vol] 34 mg/dL High 7-25 [facility] Comment on above: Performed By: #### C MP, LIPID, TSH3, CBC #### [address] Creatinine [Mass/volume] in Serum or PlasmaOrdered By: Sheldon Xie on 11-14-2024 Creatinine [Mass/Vol] Creatinine [Mass/volume] in Serum or Plasma 0.60-1.20 [facility] Eosinophils Auto (Bld) [#/Vo l]Ordered By: Sheldon Xie on 11-14-2024 Eosinophils (Bld) [#/Vol] Automated eosinophil count 0.0-0.45 [facility] Eosinophils/100 WBC Auto (Bl d)Ordered By: Sheldon Xie on 11-14-2024 Eosinophils/100 WBC (Bld) Automated eosinophil % . [facility] Erythrocyte distribution wid th Auto (RBC) [Ratio]Ordered By: Sheldon Xie on 11-14-2024 Erythrocyte distribution width (RBC) [Ratio] Erythrocyte distribution width [Ratio] by Automated count 11.9-15.3 [facility] Globulin Calc (S) [Mass/Vol] Ordered By: Sheldon Xie on 11-14-2024 Globulin (S) [Mass/Vol] Serum globulin measurement by calculation (mass/volume) [facility] Glucose [Mass/volume] in Ser um or PlasmaOrdered By: Sheldon Xie on 11-14-2024 Glucose [Mass/Vol] Glucose [Mass/volume ] in Serum or Plasma 70-100 [facility] Comment on above: ADA recommended refe rence rangeRandom Glucose Reference Range is dependent on time and content of last meal. Glucose of more than 200 mg/dL in a nonstressed, ambulatory subject supports the diagnosis of Diabetes Mellitus. Hematocrit Auto (Bld) [Volum e fraction]Ordered By: Sheldon Xie on 11-14-2024 Hematocrit (Bld) [Volume fraction] Hematocrit [Volume Fraction] of Blood by Automated count 34.0-46.4 [facility] Hemoglobin [Mass/volume] in BloodOrdered By: Sheldon Xie on 11-14-2024 Hemoglobin (Bld) [Mass/Vol] Hemoglobin [Mass/volume] in Blood 11.8-15.4 [facility] Leukocytes [#/volume] correc sandra for nucleated erythrocytes in Blood by Automated counOrdered By: Sheldon Xie on 11-14-2024 WBC corrected for nucl RBC Auto (Bld) [#/Vol] Leukocytes [#/volume] corrected for nucleated erythrocytes in Blood by Automated coun 3.8-11.6 [facility] Lipid Panelon 11-14-2024 Cholesterol [Mass/Vol] 133 mg/dL Low 140-200 Th e [facility] Comment on above: Result Comment: Chol less than 200 mg/dl low risk Chol 201-239 mg/dl borderline risk Chol 240 mg/dl and greater high risk Performed By: #### C MP, LIPID, TSH3, CBC #### [facility] [address] Cholesterol in HDL [Mass/Vol] 46 mg/dL Normal 23-92 [facility] Comment on above: Result Comment: HDL CHOL ATP-III CLASSIFICATION Cardiovascular Risk HDL > or equal to 60 mg/dL LOW HDL < 40 mg/dL HIGH Performed By: #### C MP, LIPID, TSH3, CBC #### [facility] [address] Cholesterol.total/Renu sterol in HDL [Mass ratio] 2.9 {ratio} Normal <5.0 [facility] Comment on above: Performed By: #### C MP, LIPID, TSH3, CBC #### [facility] [address] LDL Cholesterol,Calculated 60 mg/dL Normal 0-100 [facility] Comment on above: Result Comment: LDL ATP III CLASSIFICATION LDL less than 100 mg/dL Optimal LDL 100-129 mg/dL Near or above optimal LDL 130-159 mg/dL Borderline high LDL 160-189 mg/dL High LDL greater than 189 mg/dL Very high Performed By: #### C MP, LIPID, TSH3, CBC #### [address] Triglyceride w/Reflex 133 mg/dL Normal 0-149 [facility] Comment on above: Result Comment: TRIG ATP III CLASSIFICATION TRIG less than 150 mg/dL Normal TRIG 150-199 mg/dL Borderline high TRIG 200-500 mg/dL High TRIG greater than 500 mg/dL Very high Standard traceable to the Center for Disease Conrtrol and Prevention (CDC) test method. Performed By: #### C MP, LIPID, TSH3, CBC #### [address] VLDL CHOLESTEROL 26 mg/dL Normal [facility] Comment on above: Performed By: #### C MP, LIPID, TSH3, CBC #### [address] Lymphocytes Auto (Bld) [#/Vo l]Ordered By: Sheldon Xie on 11-14-2024 Lymphocytes (Bld) [#/Vol] Lymphocytes [#/volume] in Blood by Automated count 1.00-4.8 [facility] Lymphocytes/100 WBC Auto (Bl d)Ordered By: Sheldon Xie on 11-14-2024 Lymphocytes/100 WBC (Bld) Lymphocytes/100 leukocytes in Blood by Automated count . [facility] MCH Auto (RBC) [Entitic mass ]Ordered By: Sheldon Xie on 11-14-2024 MCH (RBC) [Entitic mass] MCH [Entitic mass] by Automated count 24.7-34.3 [facility] MCHC Auto (RBC) [Mass/Vol]Or dered By: Sheldon Xie on 11-14-2024 MCHC (RBC) [Mass/Vol] MCHC [Mass/volume] by Automated count 32.0-35.0 [facility] MCV Auto (RBC) [Entitic vol] Ordered By: Sheldon Xie on 11-14-2024 MCV (RBC) [Entitic vol] MCV [Entitic vol ume] by Automated count 80-100 [facility] Monocytes Auto (Bld) [#/Vol] Ordered By: Sheldon Xie on 11-14-2024 Monocytes (Bld) [#/Vol] Automated blood monocyte count 0.0-0.8 [facility] Monocytes/100 WBC Auto (Bld) Ordered By: Sheldon Xie on 11-14-2024 Monocytes/100 WBC (Bld) Automated monocyte % . [facility] Neutrophils Auto (Bld) [#/Vo l]Ordered By: Sheldon Xie on 11-14-2024 Neutrophils (Bld) [#/Vol] Neutrophils [#/volume] in Blood by Automated count 1.8-7.7 [facility] Neutrophils/100 WBC Auto (Bl d)Ordered By: Sheldon Xie on 11-14-2024 Neutrophils/100 WBC (Bld) Automated neutrophil % . [facility] No Panel InformationOrdered By: Sheldon Xie on 11-14-2024 Estimated GFR (CKD-EPI) 53.951 mL/Min [facility] Creatinine Clearance (Chem N/A [facility] Nucleated erythrocytes [Pres ence] in Blood by Automated countOrdered By: Sheldon Xie on 11-14-2024 Nucleated RBC Auto Ql (Bld) Nucleated erythrocytes [Presence] in Blood by Automated count 0-0.5 [facility] Platelet mean volume Auto (B ld) [Entitic vol]Ordered By: Sheldon Xie on 11-14-2024 Platelet mean volume (Bld) [Entitic vol] Platelet mean volume [Entitic volume] in Blood by Automated count 6.3-10.7 [facility] Platelets Auto (Bld) [#/Vol] Ordered By: Sheldon Xie on 11-14-2024 Platelets (Bld) [#/Vol] Platelets [#/vol ume] in Blood by Automated count 150-450 [facility] Potassium [Moles/volume] in Serum or PlasmaOrdered By: Sheldon Xie on 11-14-2024 Potassium [Moles/Vol] Potassium [Moles/volume] in Serum or Plasma 3.5-5.1 [facility] Protein [Mass/volume] in Ser um or PlasmaOrdered By: Sheldon Xie on 11-14-2024 Protein [Mass/Vol] Protein [Mass/volume ] in Serum or Plasma 6.4-8.9 [facility] RBC Auto (Bld) [#/Vol]Ordere d By: Sheldon Xie on 11-14-2024 RBC (Bld) [#/Vol] Erythrocytes [#/volume] in Blood by Automated count 3.60-5.00 [facility] Serum or plasma albumin/glob ulin mass ratioOrdered By: Sheldon Xie on 11-14-2024 Albumin/Globulin [Mass ratio] Serum or plasma albumin/globulin mass ratio [facility] Serum or plasma anion gap de terminationOrdered By: Sheldon Xie on 11-14-2024 Anion gap [Moles/Vol] Serum or plasma an ion gap determination 6.0-15.0 [facility] Serum or plasma total choles terol/high density lipoprotein (HDL) cholesterol mass ratOrdered By: Sheldon Xie on 11-14-2024 Cholesterol.total/Renu sterol in HDL [Mass ratio] Serum or plasma total cholesterol/high density lipoprotein (HDL) cholesterol mass rat <5.0 [facility] Sodium [Moles/volume] in Ser um or PlasmaOrdered By: Sheldon Xie on 11-14-2024 Sodium [Moles/Vol] Sodium [Moles/volume ] in Serum or Plasma 136-145 [facility] Thyroid Stimulating Hormoneo n 11-14-2024 TSH Qn 3.33 m[IU]/L Normal 0.45-5.33 [facility] Comment on above: Result Comment: PERF ORMED BY: [facility] [address] [place] [address] PATHOLOGIST [employer] SUKUMAR SINGH M.D. Performed By: #### C MP, LIPID, TSH3, CBC #### [facility] [address] Thyrotropin [Units/volume] i n Serum or PlasmaOrdered By: Sheldon Xie on 11-14-2024 TSH Qn Thyrotropin [Units/volume] in Serum or Plasma 0.45-5.33 [facility] Triglyceride [Mass/volume] i n Serum or PlasmaOrdered By: Sheldon Xie on 11-14-2024 Triglyceride [Mass/Vol] Triglyceride [Mass/volume] in Serum or Plasma 0-149 [facility] Comment on above: TRIG ATP III CLASSIF ICATIONTRIG less than 150 mg/dL NormalTRIG 150-199 mg/dL Borderline highTRIG 200-500 mg/dL High TRIG greater than 500 mg/dL Very highStandard traceable to the Center for Disease Conrtrol and Prevention (CDC) test method. 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 [facility] Estimated glomerular filtrat ion rate (GFR) non- Americanon 07-08-2024 GFR/1.73 sq M.predicted among non-blacks MDRD (S/P/Bld) [Vol rate/Area] Estimated glomerular filtration rate (GFR) non- Low >=60 mL/min/1.73 m 2 [facility] Globulin Calc (S) [Mass/Vol] on 07-08-2024 Globulin (S) [Mass/Vol] Serum globulin measurement by calculation (mass/volume) [facility] Laboratory - Chemistry and C hemistry - challengeon 07-08-2024 Albumin [Mass/Vol] 3.4 g/dL 3.4-5.[address] [facility] ALP [Catalytic activity/Vol] 74 U/L 46-116 [facility] ALT [Catalytic activity/Vol] 15 U/L 14-59 [facility] AST [Catalytic activity/Vol] 19 U/L 15-37 [facility] Bilirubin [Mass/Vol] 0.4 mg/dL 0.2-1.0 [facility] Calcium [Mass/Vol] 9.6 mg/dL 8.5-10.[address] [facility] Chloride [Moles/Vol] 107 mmol/L 98-107 [facility] CO2 [Moles/Vol] 29.7 mmol/L 21.0-32.0 [facility] Creatinine [Mass/Vol] 1.28 mg/dL High 0.55-1.02 [facility] GFR/1.73 sq M.predicted MDRD (S/P/Bld) [Vol rate/Area] 48 mL/min/{1.73_m2} Low >=60 mL/min/1.73 m 2 [facility] Glucose [Mass/Vol] 113 mg/dL High 74-[address] [facility] Potassium [Moles/Vol] 4.9 mmol/L 3.5-5.1 [facility] Protein [Mass/Vol] 6.9 g/dL 6.4-8.[address] [facility] Sodium [Moles/Vol] 145 mmol/L 136-[address] [facility] Urea nitrogen [Mass/Vol] 25.0 mg/dL High 7.0-18.0 [facility] Urea nitrogen/Creatinine [Mass ratio] 19.5 mg/mg [facility] Serum or plasma albumin/glob ulin mass ratioon 07-08-2024 Albumin/Globulin [Mass ratio] Serum or plasma albumin/globulin mass ratio [facility] Serum or plasma anion gap de terminationon 07-08-2024 Anion gap [Moles/Vol] Serum or plasma an ion gap determination [facility] XR lumbar spine 6V w bending on 06-18-2024 XR lumbar spine 6V w bending [facility] Main [address] [address] XRay Report Signed Patient: Aleksandr Sanchez MR#: [id number] : 1940 Acct:[id number] Age/Sex: 83 / F ADM Date: 06/18/24 Loc: XDS Room: Type: [facility] Attending Dr: Sheldon Xie DO Copies to: Sheldon Xie DO Ordering Provider: Sheldon Xie DO Date of Service: 06/18/24 XR/XR lumbar spine 6V w bending: W19.XXXA - Unspecified fall, initial encounter XR lumbar spine 6V w bending 06/18/2024 1:59 PM SIGNS AND SYMPTOMS: Fall, low back and sacral pain PROTOCOLS: Frontal, lateral, and flexion-extension views of the lumbar spine COMPARISON: 10/10/2023 FINDINGS: There is a levoconvex curvature of the lumbar spine similar to the prior exam. There is moderate disc height loss at L2-L3 with mild disc height loss throughout otherwise. There is facet hypertrophy. The vertebral body heights are preserved. Atherosclerotic changes are noted in the abdominal aorta. Flexion and extension views demonstrate 3 mm of retrolisthesis of L2 upon L3 without pathologic movement. The sacrum and sacroiliac joints are normal. XR/XR lumbar spine 6V w bending IMPRESSION: No acute displaced fracture. There is 3 mm of anterolisthesis of L2 upon L3 without pathologic movement. There is a levoconvex curvature similar to the prior exam with similar degenerative changes greatest at L2-L3. Impression dictated by: Gray Mukherjee M.D.06/18/2024 6:14 PM Dictation Location: [place] [address] Transcribed By: [facility] 06/18/241813 Dictated By: Gray Mukherjee II, MD 06/18/241812 Signed By: 06/18/241813 Normal [facility] XR ribs RT 2Von 06-18-2024 XR ribs RT 2V [facility] Main [place] [address] [place] [address] XRay Report Signed Patient: Aleksandr Sanchez MR#: [id number] : 1940 Acct:[id number] Age/Sex: 83 / F ADM Date: 06/18/24 Loc: XDS Room: Type: [facility] Attending Dr: Sheldon Xie DO Copies to: Sheldon Xie DO Ordering Provider: Sheldon Xie DO Date of Service: 06/18/24 XR/XR cervical spine 5V*: W19.XXXA - Unspecified fall, initial encounter ([id number]) XR/XR ribs RT 2V: W19.XXXA - Unspecified fall, initial encounter ([id number]) XR/XR sacrum coccyx min 2V: W19.XXXA - Unspecified fall, initial encounter CLINICAL DATA: Patient fell. Neck stiffness, sacral and right lower posterior rib pain. CERVICAL SPINE - 5 views: COMPARISON: 07/16/2018 AP, lateral, both oblique and odontoid views were obtained. There is osteopenia. There is slight exaggeration of the cervical lordosis. There is also reviewed cervicothoracic dextroscoliotic curvature. There is no acute fracture or significant displacement. Disc space narrowing is visualized at C4-5 and C5-6. There is minimal endplate spurring and mild facet disease. Slight bony foraminal encroachment is seen at C4-5 and mild to moderate at C5-6 on the right. On the left is also mild to moderate bony foraminal encroachment at C5-6. The atlantoaxial relationship is maintained. There is no prevertebral soft tissue swelling. XR/XR cervical spine 5V* IMPRESSION: OSTEOPENIA, LOSS OF NORMAL CERVICAL CURVATURE AND DEGENERATIVE CHANGES. RIGHT RIBS - 4 views COMPARISON: Chest x-ray 05/16/2024 AP view of the chest as well as AP and oblique views of the ribs were obtained. There is hyperinflation. There is mild chronic parenchymal change at the lung bases, greater on the right. There is no sizable effusion or pneumothorax. The cardiac and mediastinal contours are similar. The bony structures are osteopenic. There is thoracolumbar levoscoliotic curvature. Views of the ribs show no obvious acute displaced fractures. No bony destruction or rib lesions are seen. IMPRESSION: NO OBVIOUS ACUTE FINDINGS WITHIN LIMITS OF OSTEOPENIA. SACRUM AND COCCYX -3 views COMPARISON: Lumbar spine 06/18/2024 Lateral as well as AP views in neutral and downward projection were obtained. There is osteopenia. No fracture or displacement is identified. The SI joints and sacral foramen appear intact. No soft tissue abnormalities are seen. IMPRESSION: NO ACUTE BONY INJURY. Impression dictated by: Latonya Cueva M.D.06/18/2024 11:09 PM Dictation Location: [place] [address] Transcribed By: [facility] 06/18/242308 Dictated By: Latonya Cueva MD 06/18/242299 Signed By: 06/18/242308 Normal [facility] Influenza virus B Ag [Presen ce] in Upper respiratory specimen by Rapid immunoassayon 05-16-2024 FLUBV Ag IA.rapid Ql (Nph) Negative [facility] FLUBV Ag IA.rapid Ql (Nph) Influenza virus B Ag [Presence] in Upper respiratory specimen by Rapid immunoassay [facility] No Panel InformationOrdered By: Sheldon Xie on 05-16-2024 Quick Strep (POC) [facility] RSV (POC) [facility] Quick Strep (POC) [facility] RSV (POC) [facility] No Panel Informationon 05-16 Influenza Type A (Rapid) Negative [facility] POC SARS CoV-2 Antigen Negative [facility] XR chest 2V*on 05-16-2024 XR chest 2V* [facility] [place] [address] XRay Report Signed Patient: Aleksandr Sanchez MR#: [id number] : 1940 Acct:[id number] Age/Sex: 83 / F ADM Date: 05/16/24 [facility]: Type[facility] Attending Dr: Sheldon Xie DO Copies to: Sheldon Xie DO Ordering Provider: Sheldon Xie DO Date of Service: 05/16/24 XR/XR chest 2V*: R05.9 - Cough, unspecified PA AND LATERAL CHEST: CLINICAL HISTORY: Cough for the past couple weeks. COMPARISON: 08/07/2023 The lungs are hyperinflated. There is scarring at the apices. There is minor blunting of the posterior left costophrenic angle. There is also blunting at the lateral and posterior costophrenic angles on the right. This may be a small amount of pleural fluid. Associated mild atelectatic and/or infiltrative change at the right base is also suspected. There is no pneumothorax. The cardiac and mediastinal contours are stable. No vascular congestion is seen. The bony structures are osteopenic. There are tiny endplate spurs and thoracolumbar levoscoliosis. XR/XR chest 2V* IMPRESSION: OBSTRUCTIVE LUNG DISEASE. MINOR PLEURAL EFFUSION, GREATER ON THE RIGHT WHERE THERE IS ALSO MILD SUSPECTED ADJACENT PARENCHYMAL CHANGE. Impression dictated by: Latonya Cueva M.D.05/16/2024 1:54 PM Dictation Location: [place] [address] Transcribed By: [facility] 05/16/24 1354 Dictated By: Latonya Cueva MD 05/16/24 1351 Signed By: 05/16/24 1354 Normal [facility] Alanine aminotransferase [En zymatic activity/volume] in Serum or PlasmaOrdered By: Sheldon Xie on 05-15-2024 ALT [Catalytic activity/Vol] 10 U/L Normal [facility] Comment on above: Performed By: #### L IPID, CBC, CMP, TSH3 #### [address] ALT [Catalytic activity/Vol] Alanine aminotransferase [Enzymatic activity/volume] in Serum or Plasma [facility] Albumin [Mass/volume] in Ser um or Plasma by Bromocresol green (BCG) dye binding methoOrdered By: Sheldon Xie on 05-15-2024 Albumin BCG dye [Mass/Vol] 3.8 g/dL 3.5-5.7 [facility] Albumin BCG dye [Mass/Vol] Albumin [Mass/volume] in Serum or Plasma by Bromocresol green (BCG) dye binding metho 3.5-5.7 [facility] Alkaline phosphatase [Enzyma tic activity/volume] in Serum or PlasmaOrdered By: Sheldon Xie on 05-15-2024 ALP [Catalytic activity/Vol] 73 U/L Normal [facility] Comment on above: Performed By: #### L IPID, CBC, CMP, TSH3 #### [address] ALP [Catalytic activity/Vol] Alkaline phosphatase [Enzymatic activity/volume] in Serum or Plasma [facility] Aspartate aminotransferase [ Enzymatic activity/volume] in Serum or PlasmaOrdered By: Sheldon Xie on 05-15-2024 AST [Catalytic activity/Vol] 16 U/L Normal [facility] Comment on above: Performed By: #### L IPID, CBC, CMP, TSH3 #### [address] AST [Catalytic activity/Vol] Aspartate aminotransferase [Enzymatic activity/volume] in Serum or Plasma [facility] Automated basophil %Ordered By: Sheldon Xie on 05-15-2024 Basophils/100 WBC (Bld) 1.6 % Normal . [facility] Comment on above: Performed By: #### L IPID, CBC, CMP, TSH3 #### [address] Automated basophil countOrde red By: Sheldon Xie on 05-15-2024 Basophils (Bld) [#/Vol] 0.2 10*3/uL Normal 0.0-0.2 [facility] Comment on above: Result Comment: PERF ORMED BY: [place] [address] PATHOLOGIST [employer] JESSE ROMO M.D. Performed By: #### L IPID, CBC, CMP, TSH3 #### [address] Automated blood monocyte cou ntOrdered By: Sheldon Xie on 09-18-2024 Monocytes (Bld) [#/Vol] 0.8 10*3/uL Normal 0.0-0.8 [facility] Comment on above: Performed By: #### L IPID, CBC, CMP, TSH3 #### [address] Automated eosinophil %Ordere d By: Sheldon Xie on 05-15-2024 Eosinophils/100 WBC (Bld) 1.7 % Normal . [facility] Comment on above: Performed By: #### L IPID, CBC, CMP, TSH3 #### [address] Automated eosinophil countOr dered By: Sheldon Xie on 05-15-2024 Eosinophils (Bld) [#/Vol] 0.2 10*3/uL Normal 0.0-0.45 [facility] Comment on above: Performed By: #### L IPID, CBC, CMP, TSH3 #### [address] Automated monocyte %Ordered By: Sheldon Xie on 05-15-2024 Monocytes/100 WBC (Bld) 5.9 % Normal . [facility] Comment on above: Performed By: #### L IPID, CBC, CMP, TSH3 #### [address] Automated neutrophil %Ordere d By: Sheldon Xie on 05-15-2024 Neutrophils/100 WBC (Bld) 76.5 % Normal . [facility] Comment on above: Performed By: #### L IPID, CBC, CMP, TSH3 #### [address] Basophils Auto (Bld) [#/Vol] Ordered By: Sheldon Xie on 05-15-2024 Basophils (Bld) [#/Vol] Automated basoph il count 0.0-0.2 [facility] Basophils/100 WBC Auto (Bld) Ordered By: Sheldon Xie on 05-15-2024 Basophils/100 WBC (Bld) Automated basophil % . [facility] Bilirubin.total [Mass/volume ] in Serum or PlasmaOrdered By: Sheldon Xie on 05-15-2024 Bilirubin [Mass/Vol] 0.4 mg/dL Normal 0.3-1.0 [facility] Comment on above: Performed By: #### L IPID, CBC, CMP, TSH3 #### [facility] [address] Bilirubin [Mass/Vol] Bilirubin.total [Mass/volume] in Serum or Plasma 0.3-1.0 [facility] Calcium [Mass/volume] in Ser um or PlasmaOrdered By: Sheldon Xie on 05-15-2024 Calcium [Mass/Vol] 9.6 mg/dL Normal 8.6-10.[address] [facility] Comment on above: Performed By: #### L IPID, CBC, CMP, TSH3 #### [facility] [address] [place], [place] [id number] [facility] Calcium [Mass/Vol] Calcium [Mass/volume ] in Serum or Plasma 8.6-10.3 [facility] Carbon dioxide, total [Moles /volume] in Serum or PlasmaOrdered By: Sheldon Xie on 05-15-2024 CO2 [Moles/Vol] 28.7 mmol/L Normal 21.0-31.0 [facility] Comment on above: Performed By: #### L IPID, CBC, CMP, TSH3 #### [place] [id number] [facility] CO2 [Moles/Vol] Carbon dioxide, tota l [Moles/volume] in Serum or Plasma 21.0-31.0 [facility] Chloride [Moles/volume] in S cecilia or PlasmaOrdered By: Sheldon Xie on 05-15-2024 Chloride [Moles/Vol] 105 mmol/L Normal 98-107 [facility] Comment on above: Performed By: #### L IPID, CBC, CMP, TSH3 #### [facility] [address] [place] [id number] [place] Chloride [Moles/Vol] Chloride [Moles/volume] in Serum or Plasma 98-107 [facility] Cholesterol [Mass/volume] in Serum or PlasmaOrdered By: Sheldon Xie on 05-15-2024 Cholesterol [Mass/Vol] 137 mg/dL Low 140-200 [facility] Comment on above: Chol less than 200 m g/dl low riskChol 201-239 mg/dl borderline riskChol 240 mg/dl and greater high risk Result Comment: Chol less than 200 mg/dl low risk Chol 201-239 mg/dl borderline risk Chol 240 mg/dl and greater high risk Performed By: #### L IPID, CBC, CMP, TSH3 #### [facility] [address] Cholesterol [Mass/Vol] Cholesterol [Mass/volume] in Serum or Plasma Low 140-200 [facility] Comment on above: Chol less than 200 m g/dl low riskChol 201-239 mg/dl borderline riskChol 240 mg/dl and greater high risk Cholesterol in HDL [Mass/vol ume] in Serum or PlasmaOrdered By: Sheldon Xie on 05-15-2024 Cholesterol in HDL [Mass/Vol] Serum or plasma high density lipoprotein (HDL) cholesterol measurement 23-92 [facility] Comment on above: HDL CHOL ATP-III CLA SSIFICATION Cardiovascular RiskHDL > or equal to 60 mg/dL LOWHDL < 40 mg/dL HIGH Cholesterol in LDL Calc [Mas s/Vol]Ordered By: Sheldon Xie on 05-15-2024 Cholesterol in LDL [Mass/Vol] 73 mg/dL 0-100 [facility] Comment on above: LDL ATP III CLASSIFI CATIONLDL less than 100 mg/dL OptimalLDL 100-129 mg/dL Near or above optimalLDL 130-159 mg/dL Borderline highLDL 160-189 mg/dL HighLDL greater than 189 mg/dL Very high Cholesterol in LDL [Mass/Vol] Cholesterol in LDL [Mass/volume] in Serum or Plasma by calculation 0-100 [facility] Comment on above: LDL ATP III CLASSIFI CATIONLDL less than 100 mg/dL OptimalLDL 100-129 mg/dL Near or above optimalLDL 130-159 mg/dL Borderline highLDL 160-189 mg/dL HighLDL greater than 189 mg/dL Very high Cholesterol in VLDL Calc [Ma ss/Vol]Ordered By: Sheldon Xie on 05-15-2024 Cholesterol in VLDL [Mass/Vol] 25 mg/dL [facility] Cholesterol in VLDL [Mass/Vol] Cholesterol in VLDL [Mass/volume] in Serum or Plasma by calculation [facility] Complete Blood Count Auto Di ffon 05-15-2024 Mean Corpuscular HGB Conc 32.9 g/dL Normal 32.0-35.0 [facility] Comment on above: Performed By: #### L IPID, CBC, CMP, TSH3 #### [facility] [address] [place] [address] NRBC% 0.0 /100{WBC} Normal 0-0.5 [facility] Comment on above: Performed By: #### L IPID, CBC, CMP, TSH3 #### [address] Comprehensive Metabolic Pane julisa 05-15-2024 Albumin [Mass/Vol] 3.8 g/dL Normal 3.5-5.7 [facility] Comment on above: Performed By: #### L IPID, CBC, CMP, TSH3 #### [address] GFR/1.73 sq M.predicted MDRD (S/P/Bld) [Vol rate/Area] mL/min/{1.73_m2} Normal [facility] Comment on above: Performed By: #### L IPID, CBC, CMP, TSH3 #### [address] Creatinine [Mass/volume] in Serum or PlasmaOrdered By: Sheldon Xie on 05-15-2024 Creatinine [Mass/Vol] 0.90 mg/dL Normal 0.60-1.20 [facility] Comment on above: Performed By: #### L IPID, CBC, CMP, TSH3 #### [facility] [address] [place] [address] Creatinine [Mass/Vol] Creatinine [Mass/volume] in Serum or Plasma 0.60-1.20 [facility] Eosinophils Auto (Bld) [#/Vo l]Ordered By: Sheldon Xie on 05-15-2024 Eosinophils (Bld) [#/Vol] Automated eosinophil count 0.0-0.45 [facility] Eosinophils/100 WBC Auto (Bl d)Ordered By: Sheldon Xie on 05-15-2024 Eosinophils/100 WBC (Bld) Automated eosinophil % . [facility] Erythrocyte distribution wid th Auto (RBC) [Ratio]Ordered By: Sheldon Xie on 05-15-2024 Erythrocyte distribution width (RBC) [Ratio] Erythrocyte distribution width [Ratio] by Automated count 11.9-15.3 [facility] Erythrocyte distribution wid th [Ratio] by Automated countOrdered By: Sheldon Xie on 05-15-2024 Erythrocyte distribution width (RBC) [Ratio] 14.1 % Normal 11.9-15.3 [facility] Comment on above: Performed By: #### L IPID, CBC, CMP, TSH3 #### [facility] [address] [place] [address] Erythrocytes [#/volume] in B lood by Automated countOrdered By: Sheldon Xie on 05-15-2024 RBC (Bld) [#/Vol] 3.82 10*6/uL Normal 3.60-5.00 [facility] Comment on above: Performed By: #### L IPID, CBC, CMP, TSH3 #### [facility] [address] [place] [address] Globulin Calc (S) [Mass/Vol] Ordered By: Sheldon Xie on 05-15-2024 Globulin (S) [Mass/Vol] Serum globulin measurement by calculation (mass/volume) [facility] Glucose [Mass/volume] in Ser um or PlasmaOrdered By: Sheldon Xie on 05-15-2024 Glucose [Mass/Vol] 91 mg/dL Normal 70-[address] [facility] Comment on above: ADA recommended refe rence rangeRandom Glucose Reference Range is dependent on time and content of last meal. Glucose of more than 200 mg/dL in a nonstressed, ambulatory subject supports the diagnosis of Diabetes Mellitus. Result Comment: [place] om Glucose Reference Range is dependent on time and content of last meal. Glucose of more than 200 mg/dL in a nonstressed, ambulatory subject supports the diagnosis of Diabetes Mellitus. ADA recommended reference range Performed By: #### L IPID, CBC, CMP, TSH3 #### [facility] [address] Glucose [Mass/Vol] Glucose [Mass/volume ] in Serum or Plasma 70-100 [facility] Comment on above: ADA recommended refe rence rangeRandom Glucose Reference Range is dependent on time and content of last meal. Glucose of more than 200 mg/dL in a nonstressed, ambulatory subject supports the diagnosis of Diabetes Mellitus. Hematocrit Auto (Bld) [Volum e fraction]Ordered By: Sheldon Xie on 05-15-2024 Hematocrit (Bld) [Volume fraction] Hematocrit [Volume Fraction] of Blood by Automated count 34.0-46.4 [facility] Hematocrit [Volume Fraction] of Blood by Automated countOrdered By: Sheldon Xie on 05-15-2024 Hematocrit (Bld) [Volume fraction] 36.7 % Normal 34.0-46.4 [facility] Comment on above: Performed By: #### L IPID, CBC, CMP, TSH3 #### [facility] [address] Hemoglobin [Mass/volume] in BloodOrdered By: Sheldon Xie on 05-15-2024 Hemoglobin (Bld) [Mass/Vol] 12.1 g/dL Normal 11.8-15.4 [facility] Comment on above: Performed By: #### L IPID, CBC, CMP, TSH3 #### [facility] [address] [place] [address] Hemoglobin (Bld) [Mass/Vol] Hemoglobin [Mass/volume] in Blood 11.8-15.4 [facility] Leukocytes [#/volume] correc sandra for nucleated erythrocytes in Blood by Automated counOrdered By: Sheldon Xie on 05-15-2024 WBC corrected for nucl RBC Auto (Bld) [#/Vol] 12.9 10*3/uL High 3.8-11.6 [facility] WBC corrected for nucl RBC Auto (Bld) [#/Vol] Leukocytes [#/volume] corrected for nucleated erythrocytes in Blood by Automated coun High 3.8-11.6 [facility] Leukocytes [#/volume] in Blo od by Automated countOrdered By: Sheldon Xie on 05-15-2024 WBC (Bld) [#/Vol] 12.9 10*3/uL High 3.8-11.6 [facility] Comment on above: Performed By: #### L IPID, CBC, CMP, TSH3 #### [facility] [address] Lipid Panelon 05-15-2024 LDL Cholesterol,Calculated 73 mg/dL Normal 0-100 [facility] Comment on above: Result Comment: LDL ATP III CLASSIFICATION LDL less than 100 mg/dL Optimal LDL 100-129 mg/dL Near or above optimal LDL 130-159 mg/dL Borderline high LDL 160-189 mg/dL High LDL greater than 189 mg/dL Very high Performed By: #### L IPID, CBC, CMP, TSH3 #### [facility] [address] Triglyceride w/Reflex 129 mg/dL Normal 0-149 [facility] Comment on above: Result Comment: TRIG ATP III CLASSIFICATION TRIG less than 150 mg/dL Normal TRIG 150-199 mg/dL Borderline high TRIG 200-500 mg/dL High TRIG greater than 500 mg/dL Very high Standard traceable to the Center for Disease Conrtrol and Prevention (CDC) test method. Performed By: #### L IPID, CBC, CMP, TSH3 #### [facility] [address] VLDL CHOLESTEROL 25 mg/dL Normal [facility] Comment on above: Performed By: #### L IPID, CBC, CMP, TSH3 #### [facility] [address] Lymphocytes Auto (Bld) [#/Vo l]Ordered By: Sheldon Xie on 05-15-2024 Lymphocytes (Bld) [#/Vol] Lymphocytes [#/volume] in Blood by Automated count 1.00-4.8 [facility] Lymphocytes [#/volume] in Bl ood by Automated countOrdered By: Sheldon Xie on 05-15-2024 Lymphocytes (Bld) [#/Vol] 1.8 10*3/uL Normal 1.00-4.8 [facility] Comment on above: Performed By: #### L IPID, CBC, CMP, TSH3 #### [facility] [address] [place] [address] Lymphocytes/100 WBC Auto (Bl d)Ordered By: Sheldon Xie on 05-15-2024 Lymphocytes/100 WBC (Bld) Lymphocytes/100 leukocytes in Blood by Automated count . [facility] Lymphocytes/100 leukocytes i n Blood by Automated countOrdered By: Sheldon Xie on 05-15-2024 Lymphocytes/100 WBC (Bld) 14.3 % Normal . [facility] Comment on above: Performed By: #### L IPID, CBC, CMP, TSH3 #### [address] MCH Auto (RBC) [Entitic mass ]Ordered By: Sheldon Xie on 05-15-2024 MCH (RBC) [Entitic mass] MCH [Entitic mass] by Automated count 24.7-34.3 [facility] MCH [Entitic mass] by Automa sandra countOrdered By: Sheldon Xie on 05-15-2024 MCH (RBC) [Entitic mass] 31.6 pg Normal 24.7-34.3 [facility] Comment on above: Performed By: #### L IPID, CBC, CMP, TSH3 #### [address] MCHC Auto (RBC) [Mass/Vol]Or dered By: Sheldon Xie on 05-15-2024 MCHC (RBC) [Mass/Vol] 32.9 g/dL 32.0-35.0 [facility] MCHC (RBC) [Mass/Vol] MCHC [Mass/volume] by Automated count 32.0-35.0 [facility] MCV Auto (RBC) [Entitic vol] Ordered By: Sheldon Xie on 05-15-2024 MCV (RBC) [Entitic vol] MCV [Entitic vol ume] by Automated count 80-100 [facility] MCV [Entitic volume] by Auto mated countOrdered By: Sheldon Xie on 05-15-2024 MCV (RBC) [Entitic vol] 96.0 fL Normal 80-100 [facility] Comment on above: Performed By: #### L IPID, CBC, CMP, TSH3 #### [facility] [address] [place] [address] Monocytes Auto (Bld) [#/Vol] Ordered By: Sheldon Xie on 05-15-2024 Monocytes (Bld) [#/Vol] Automated blood monocyte count 0.0-0.8 [facility] Monocytes/100 WBC Auto (Bld) Ordered By: Sheldon Xie on 05-15-2024 Monocytes/100 WBC (Bld) Automated monocyte % . [facility] Neutrophils Auto (Bld) [#/Vo l]Ordered By: Sheldon Xie on 05-15-2024 Neutrophils (Bld) [#/Vol] Neutrophils [#/volume] in Blood by Automated count High 1.8-7.7 [facility] Neutrophils [#/volume] in Bl ood by Automated countOrdered By: Sheldon Xie on 05-15-2024 Neutrophils (Bld) [#/Vol] 9.8 10*3/uL High 1.8-7.7 [facility] Comment on above: Performed By: #### L IPID, CBC, CMP, TSH3 #### [facility] [address] [place] [address] Neutrophils/100 WBC Auto (Bl d)Ordered By: Sheldon Xie on 05-15-2024 Neutrophils/100 WBC (Bld) Automated neutrophil % . [facility] No Panel InformationOrdered By: Sheldon Xie on 05-15-2024 Estimated GFR (CKD-EPI) > 60.0 mL/Min [facility] Creatinine Clearance (Chem N/A [facility] Nucleated erythrocytes [Pres ence] in Blood by Automated countOrdered By: Sheldon Xie on 05-15-2024 Nucleated RBC Auto Ql (Bld) 0.0 /100{WBC} 0-0.5 [facility] Nucleated RBC Auto Ql (Bld) Nucleated erythrocytes [Presence] in Blood by Automated count 0-0.5 [facility] Platelet mean volume Auto (B ld) [Entitic vol]Ordered By: Sheldon Xie on 05-15-2024 Platelet mean volume (Bld) [Entitic vol] Platelet mean volume [Entitic volume] in Blood by Automated count 6.3-10.7 [facility] Platelet mean volume [Entiti c volume] in Blood by Automated countOrdered By: Sheldon Xie on 05-15-2024 Platelet mean volume (Bld) [Entitic vol] 7.8 fL Normal 6.3-10.7 [facility] Comment on above: Performed By: #### L IPID, CBC, CMP, TSH3 #### [facility] [address] Platelets Auto (Bld) [#/Vol] Ordered By: Sheldon Xie on 05-15-2024 Platelets (Bld) [#/Vol] Platelets [#/vol ume] in Blood by Automated count High 150-450 [facility] Platelets [#/volume] in Bloo d by Automated countOrdered By: Sheldon Xie on 05-15-2024 Platelets (Bld) [#/Vol] 465 10*3/uL High 150-450 [facility] Comment on above: Performed By: #### L IPID, CBC, CMP, TSH3 #### [facility] [address] Potassium [Moles/volume] in Serum or PlasmaOrdered By: Sheldon Xie on 05-15-2024 Potassium [Moles/Vol] 4.7 mmol/L Normal 3.5-5.1 [facility] Comment on above: Performed By: #### L IPID, CBC, CMP, TSH3 #### [facility] [address] Potassium [Moles/Vol] Potassium [Moles/volume] in Serum or Plasma 3.5-5.1 [facility] Protein [Mass/volume] in Ser um or PlasmaOrdered By: Sheldon Xie on 05-15-2024 Protein [Mass/Vol] 6.7 g/dL Normal 6.4-8.[address] [facility] Comment on above: Performed By: #### L IPID, CBC, CMP, TSH3 #### [facility] [address] Protein [Mass/Vol] Protein [Mass/volume ] in Serum or Plasma 6.4-8.9 [facility] RBC Auto (Bld) [#/Vol]Ordere d By: Sheldon Xie on 05-15-2024 RBC (Bld) [#/Vol] Erythrocytes [#/volume] in Blood by Automated count 3.60-5.00 [facility] Serum globulin measurement b y calculation (mass/volume)Ordered By: Sheldon Xie on 05-15-2024 Globulin (S) [Mass/Vol] 2.9 g/dL Normal [facility] Comment on above: Performed By: #### L IPID, CBC, CMP, TSH3 #### [facility] [address] [place] [address] Serum or plasma albumin/glob ulin mass ratioOrdered By: Sheldon Xie on 05-15-2024 Albumin/Globulin [Mass ratio] 1.3 {ratio} Normal [facility] Comment on above: Performed By: #### L IPID, CBC, CMP, TSH3 #### [facility] [address] [place] [address] Albumin/Globulin [Mass ratio] Serum or plasma albumin/globulin mass ratio [facility] Serum or plasma anion gap de terminationOrdered By: Sheldon Xie on 05-15-2024 Anion gap [Moles/Vol] 12.0 mmol/L Normal 6.0-15.0 [facility] Comment on above: Performed By: #### L IPID, CBC, CMP, TSH3 #### [facility] [address] [place] [address] Anion gap [Moles/Vol] Serum or plasma an ion gap determination 6.0-15.0 [facility] Serum or plasma high density lipoprotein (HDL) cholesterol measurementOrdered By: Sheldon Xie on 05-15-2024 Cholesterol in HDL [Mass/Vol] 38 mg/dL Normal 23-92 [facility] Comment on above: HDL CHOL ATP-III CLA SSIFICATION Cardiovascular RiskHDL > or equal to 60 mg/dL LOWHDL < 40 mg/dL HIGH Result Comment: HDL CHOL ATP-III CLASSIFICATION Cardiovascular Risk HDL > or equal to 60 mg/dL LOW HDL < 40 mg/dL HIGH Performed By: #### L IPID, CBC, CMP, TSH3 #### [facility] [address] Serum or plasma total choles terol/high density lipoprotein (HDL) cholesterol mass ratOrdered By: Sheldon Xie on 05-15-2024 Cholesterol.total/Renu sterol in HDL [Mass ratio] 3.6 {ratio} Normal <5.0 [facility] Comment on above: Performed By: #### L IPID, CBC, CMP, TSH3 #### [facility] [address] Cholesterol.total/Renu sterol in HDL [Mass ratio] Serum or plasma total cholesterol/high density lipoprotein (HDL) cholesterol mass rat <5.0 [facility] Sodium [Moles/volume] in Ser um or PlasmaOrdered By: Sheldon Xie on 05-15-2024 Sodium [Moles/Vol] 141 mmol/L Normal 136-[address] [facility] Comment on above: Performed By: #### L IPID, CBC, CMP, TSH3 #### [facility] [address] Sodium [Moles/Vol] Sodium [Moles/volume ] in Serum or Plasma 136-145 [facility] Thyrotropin [Units/volume] i n Serum or PlasmaOrdered By: Sheldon Xie on 05-15-2024 TSH Qn 1.60 m[IU]/L Normal 0.45-5.33 [facility] Comment on above: Result Comment: PERF ORMED BY: [facility] [address] [place] [address] PATHOLOGIST [employer] JESSE ROMO M.D. Performed By: #### L IPID, CBC, CMP, TSH3 ####[facility] [id number] TSH Qn Thyrotropin [Units/volume] in Serum or Plasma 0.45-5.33 [facility] Triglyceride [Mass/volume] i n Serum or PlasmaOrdered By: Sheldon Xie on 05-15-2024 Triglyceride [Mass/Vol] 129 mg/dL 0-149 [facility] Comment on above: TRIG ATP III CLASSIF ICATIONTRIG less than 150 mg/dL NormalTRIG 150-199 mg/dL Borderline highTRIG 200-500 mg/dL High TRIG greater than 500 mg/dL Very highStandard traceable to the Center for Disease Conrtrol and Prevention (CDC) test method. Triglyceride [Mass/Vol] Triglyceride [Mass/volume] in Serum or Plasma 0-149 [facility] Comment on above: TRIG ATP III CLASSIF ICATIONTRIG less than 150 mg/dL NormalTRIG 150-199 mg/dL Borderline highTRIG 200-500 mg/dL High TRIG greater than 500 mg/dL Very highStandard traceable to the Center for Disease Conrtrol and Prevention (CDC) test method. Urea nitrogen [Mass/volume] in Serum or PlasmaOrdered By: Sheldon Xie on 05-15-2024 Urea nitrogen [Mass/Vol] 25 mg/dL Normal 03-21 [facility] Comment on above: Performed By: #### L IPID, CBC, CMP, TSH3 #### [address] Urea nitrogen [Mass/Vol] Urea nitrogen [Mass/volume] in Serum or Plasma 03-21 [facility] WBC Auto (Bld) [#/Vol]Ordere d By: Sheldon Xie on 05-15-2024 WBC (Bld) [#/Vol] Leukocytes [#/volume ] in Blood by Automated count High 3.8-11.6 [facility] Estimated glomerular filtrat ion rate (GFR) non- Americanon 12-20-2023 GFR/1.73 sq M.predicted among non-blacks MDRD (S/P/Bld) [Vol rate/Area] 54 mL/min/{1.73_m2} Low >=60 [facility] Laboratory - Chemistry and C hemistry - challengeon 12-20-2023 Calcium [Mass/Vol] 9.5 mg/dL 8.5-10.[address] [facility] Creatinine [Mass/Vol] 0.98 mg/dL 0.55-1.02 [facility] GFR/1.73 sq M.predicted MDRD (S/P/Bld) [Vol rate/Area] mL/min/{1.73_m2} >=60 [facility] XR hip LT 1Von 11-20-2023 XR hip LT 1V [facility] [address] [place] [address] [place] [address] XRay Report Signed Patient: Aleksandr Sanchez MR#: [id number] : 1940 Acct:[id number] Age/Sex: 83 / F ADM Date: 11/20/23 Loc: XDS Room: Type: [facility] Attending Dr: Sheldon Xie DO Copies to: Sheldon Xie DO Ordering Provider: Sheldon Xie DO Date of Service: 11/20/23 XR/XR hip LT 1V: M54.32 - Sciatica, left side LEFT HIP -one views: CLINICAL HISTORY: Left hip pain. No injury. COMPARISON: CT abdomen 06/03/2022 A single AP view of the left hip was obtained. No fracture or dislocation is identified. The hip joint space is maintained. There is no prominent hypertrophy at the hip. There is minimal e nthesophyte formation at the greater trochanter. The imaged left SI joint is intact. No soft tissue anomalies are seen. XR/XR hip LT 1V IMPRESSION: NO ACUTE BONY FINDINGS WITHIN LIMITS OF THIS SINGLE VIEW. Impression dictated by: Latonya Cueva M.D.11/20/2023 3:17 PM Dictation Location: [place] [address] Transcribed By: [facility] 11/20/23 1517 Dictated By: Latonya Cueva MD 11/20/23 151 Signed By: 11/20/23 151 Normal [facility] Alanine aminotransferase [En zymatic activity/volume] in Serum or PlasmaOrdered By: Sheldon Xie on 09-26-2023 ALT [Catalytic activity/Vol] 12 U/L [facility] Albumin [Mass/volume] in Ser um or Plasma by Bromocresol green (BCG) dye binding methoOrdered By: Sheldon Xie on 09-26-2023 Albumin BCG dye [Mass/Vol] 4.1 g/dL 3.5-5.7 [facility] Alkaline phosphatase [Enzyma tic activity/volume] in Serum or PlasmaOrdered By: Sheldon Xie on 09-26-2023 ALP [Catalytic activity/Vol] 54 U/L 34-104 [facility] Aspartate aminotransferase [ Enzymatic activity/volume] in Serum or PlasmaOrdered By: Sheldon Xie on 09-26-2023 AST [Catalytic activity/Vol] 18 U/L 13-39 [facility] Basophils Auto (Bld) [#/Vol] Ordered By: Sheldon Xie on 09-26-2023 Basophils (Bld) [#/Vol] 0.1 10*3/uL 0.0-0.2 [facility] Basophils/100 WBC Auto (Bld) Ordered By: Sheldon Xie on 09-26-2023 Basophils/100 WBC (Bld) 1.2 % . [facility] Bilirubin.total [Mass/volume ] in Serum or PlasmaOrdered By: Sheldon Xie on 09-26-2023 Bilirubin [Mass/Vol] 0.3 mg/dL 0.3-1.0 [facility] Calcium [Mass/volume] in Ser um or PlasmaOrdered By: Sheldon Xie on 09-26-2023 Calcium [Mass/Vol] 9.4 mg/dL 8.6-10.[address] [facility] Carbon dioxide, total [Moles /volume] in Serum or PlasmaOrdered By: Sheldon Xie on 09-26-2023 CO2 [Moles/Vol] 29.7 mmol/L 21.0-31.0 [facility] Chloride [Moles/volume] in S cecilia or PlasmaOrdered By: Sheldon Xie on 09-26-2023 Chloride [Moles/Vol] 111 mmol/L 98-107 [facility] Cholesterol [Mass/volume] in Serum or PlasmaOrdered By: Sheldon Xie on 09-26-2023 Cholesterol [Mass/Vol] 170 mg/dL 140-200 [facility] Comment on above: Chol less than 200 m g/dl low riskChol 201-239 mg/dl borderline riskChol 240 mg/dl and greater high risk Cholesterol in LDL Calc [Mas s/Vol]Ordered By: Sheldon Xie on 09-26-2023 Cholesterol in LDL [Mass/Vol] 96 mg/dL 0-100 [facility] Comment on above: LDL ATP III CLASSIFI CATIONLDL less than 100 mg/dL OptimalLDL 100-129 mg/dL Near or above optimalLDL 130-159 mg/dL Borderline highLDL 160-189 mg/dL HighLDL greater than 189 mg/dL Very high Cholesterol in VLDL Calc [Ma ss/Vol]Ordered By: Sheldon Xie on 09-26-2023 Cholesterol in VLDL [Mass/Vol] 22 mg/dL [facility] Creatinine [Mass/volume] in Serum or PlasmaOrdered By: Sheldon Xie on 09-26-2023 Creatinine [Mass/Vol] 1.02 mg/dL 0.60-1.20 [facility] Eosinophils Auto (Bld) [#/Vo l]Ordered By: Sheldon Xie on 09-26-2023 Eosinophils (Bld) [#/Vol] 0.4 10*3/uL 0.0-0.45 [facility] Eosinophils/100 WBC Auto (Bl d)Ordered By: Sheldon Xie on 09-26-2023 Eosinophils/100 WBC (Bld) 4.5 % . [facility] Erythrocyte distribution wid th Auto (RBC) [Ratio]Ordered By: Sheldon Xie on 09-26-2023 Erythrocyte distribution width (RBC) [Ratio] 14.0 % 11.9-15.3 [facility] Globulin Calc (S) [Mass/Vol] Ordered By: Sheldon Xie on 09-26-2023 Globulin (S) [Mass/Vol] 2.5 g/dL [facility] Glucose [Mass/volume] in Ser um or PlasmaOrdered By: Sheldon Xie on 09-26-2023 Glucose [Mass/Vol] 92 mg/dL 70-[address] [facility] Comment on above: ADA recommended refe rence rangeRandom Glucose Reference Range is dependent on time and content of last meal. Glucose of more than 200 mg/dL in a nonstressed, ambulatory subject supports the diagnosis of Diabetes Mellitus. Hematocrit Auto (Bld) [Volum e fraction]Ordered By: Sheldon Xie on 09-26-2023 Hematocrit (Bld) [Volume fraction] 38.6 % 34.0-46.4 [facility] Hemoglobin [Mass/volume] in BloodOrdered By: Sheldon Xie on 09-26-2023 Hemoglobin (Bld) [Mass/Vol] 12.4 g/dL 11.8-15.4 [facility] Leukocytes [#/volume] correc sandra for nucleated erythrocytes in Blood by Automated counOrdered By: Sheldon Xie on 09-26-2023 WBC corrected for nucl RBC Auto (Bld) [#/Vol] 8.1 10*3/uL 3.8-11.6 [facility] Lymphocytes Auto (Bld) [#/Vo l]Ordered By: Sheldon Xie on 09-26-2023 Lymphocytes (Bld) [#/Vol] 2.1 10*3/uL 1.00-4.8 [facility] Lymphocytes/100 WBC Auto (Bl d)Ordered By: Sheldon Xie on 09-26-2023 Lymphocytes/100 WBC (Bld) 26.4 % . [facility] MCH Auto (RBC) [Entitic mass ]Ordered By: Sheldon Xie on 09-26-2023 MCH (RBC) [Entitic mass] 31.2 pg 24.7-34.3 [facility] MCHC Auto (RBC) [Mass/Vol]Or dered By: Sheldon Xie on 09-26-2023 MCHC (RBC) [Mass/Vol] 32.1 g/dL 32.0-35.0 [facility] MCV Auto (RBC) [Entitic vol] Ordered By: Sheldon Xie on 09-26-2023 MCV (RBC) [Entitic vol] 97.2 fL 80-100 [facility] Monocytes Auto (Bld) [#/Vol] Ordered By: Sheldon Xie on 09-26-2023 Monocytes (Bld) [#/Vol] 0.6 10*3/uL 0.0-0.8 [facility] Monocytes/100 WBC Auto (Bld) Ordered By: Sheldon Xie on 09-26-2023 Monocytes/100 WBC (Bld) 8.0 % . [facility] Neutrophils Auto (Bld) [#/Vo l]Ordered By: Sheldon Xie on 09-26-2023 Neutrophils (Bld) [#/Vol] 4.9 10*3/uL 1.8-7.7 [facility] Neutrophils/100 WBC Auto (Bl d)Ordered By: Sheldon Xie on 09-26-2023 Neutrophils/100 WBC (Bld) 59.9 % . [facility] No Panel InformationOrdered By: Sheldon Xie on 09-26-2023 Estimated GFR (CKD-EPI) 54.927 mL/Min [facility] Creatinine Clearance (Chem N/A [facility] Nucleated erythrocytes [Pres ence] in Blood by Automated countOrdered By: Sheldon Xie on 09-26-2023 Nucleated RBC Auto Ql (Bld) 0.1 /100{WBC} 0-0.5 [facility] Platelet mean volume Auto (B ld) [Entitic vol]Ordered By: Sheldon Xie on 09-26-2023 Platelet mean volume (Bld) [Entitic vol] 8.4 fL 6.3-10.7 [facility] Platelets Auto (Bld) [#/Vol] Ordered By: Sheldon Xie on 09-26-2023 Platelets (Bld) [#/Vol] 324 10*3/uL 150-450 [facility] Potassium [Moles/volume] in Serum or PlasmaOrdered By: Sheldon Xie on 09-26-2023 Potassium [Moles/Vol] 4.8 mmol/L 3.5-5.1 [facility] Protein [Mass/volume] in Ser um or PlasmaOrdered By: Sheldon Xie on 09-26-2023 Protein [Mass/Vol] 6.6 g/dL 6.4-8.[address] [facility] RBC Auto (Bld) [#/Vol]Ordere d By: Sheldon Xie on 09-26-2023 RBC (Bld) [#/Vol] 3.97 10*6/uL 3.60-5.00 [facility] Serum or plasma albumin/glob ulin mass ratioOrdered By: Sheldon Xie on 09-26-2023 Albumin/Globulin [Mass ratio] 1.6 {ratio} [facility] Serum or plasma anion gap de terminationOrdered By: Sheldon Xie on 09-26-2023 Anion gap [Moles/Vol] 10.1 mmol/L 6.0-15.0 [facility] Serum or plasma high density lipoprotein (HDL) cholesterol measurementOrdered By: Sheldon Xie on 09-26-2023 Cholesterol in HDL [Mass/Vol] 52 mg/dL 23-92 [facility] Comment on above: HDL CHOL ATP-III CLA SSIFICATION Cardiovascular RiskHDL > or equal to 60 mg/dL LOWHDL < 40 mg/dL HIGH Serum or plasma total choles terol/high density lipoprotein (HDL) cholesterol mass ratOrdered By: Sheldon Xie on 09-26-2023 Cholesterol.total/Renu sterol in HDL [Mass ratio] 3.3 {ratio} <5.0 [facility] Sodium [Moles/volume] in Ser um or PlasmaOrdered By: Sheldon Xie on 09-26-2023 Sodium [Moles/Vol] 146 mmol/L 136-[address] [facility] Thyrotropin [Units/volume] i n Serum or PlasmaOrdered By: Sheldon Xie on 09-26-2023 TSH Qn 2.47 m[IU]/L 0.45-5.33 [facility] Triglyceride [Mass/volume] i n Serum or PlasmaOrdered By: Sheldon Xie on 09-26-2023 Triglyceride [Mass/Vol] 112 mg/dL 0-149 [facility] Comment on above: TRIG ATP III CLASSIF ICATIONTRIG less than 150 mg/dL NormalTRIG 150-199 mg/dL Borderline highTRIG 200-500 mg/dL High TRIG greater than 500 mg/dL Very highStandard traceable to the Center for Disease Conrtrol and Prevention (CDC) test method. Urea nitrogen [Mass/volume] in Serum or PlasmaOrdered By: Sheldon Xie on 09-26-2023 Urea nitrogen [Mass/Vol] 30 mg/dL 7-25 [facility] WBC Auto (Bld) [#/Vol]Ordere d By: Sheldon Xie on 09-26-2023 WBC (Bld) [#/Vol] 8.1 10*3/uL 3.8-11.[address] [facility] Alanine aminotransferase [En zymatic activity/volume] in Serum or PlasmaOrdered By: Sheldon Xie on 05-24-2023 ALT [Catalytic activity/Vol] 13 U/L 7-52 [facility] Albumin [Mass/volume] in Ser um or Plasma by Bromocresol green (BCG) dye binding methoOrdered By: Sheldon Xie on 05-24-2023 Albumin BCG dye [Mass/Vol] 4.2 g/dL 3.5-5.7 [facility] Alkaline phosphatase [Enzyma tic activity/volume] in Serum or PlasmaOrdered By: Sheldon Xie on 05-24-2023 ALP [Catalytic activity/Vol] 55 U/L 34-104 [facility] Aspartate aminotransferase [ Enzymatic activity/volume] in Serum or PlasmaOrdered By: Sheldon Xie on 05-24-2023 AST [Catalytic activity/Vol] 20 U/L 13-39 [facility] Basophils Auto (Bld) [#/Vol] Ordered By: Sheldon Xie on 05-24-2023 Basophils (Bld) [#/Vol] 0.1 10*3/uL 0.0-0.2 [facility] Basophils/100 WBC Auto (Bld) Ordered By: Sheldon Xie on 05-24-2023 Basophils/100 WBC (Bld) 1.0 % . [facility] Bilirubin.total [Mass/volume ] in Serum or PlasmaOrdered By: Sheldon Xie on 05-24-2023 Bilirubin [Mass/Vol] 0.5 mg/dL 0.3-1.0 [facility] Calcium [Mass/volume] in Ser um or PlasmaOrdered By: Sheldon Xie on 05-24-2023 Calcium [Mass/Vol] 9.9 mg/dL 8.6-10.[address] [facility] Carbon dioxide, total [Moles /volume] in Serum or PlasmaOrdered By: Sheldon Xie on 05-24-2023 CO2 [Moles/Vol] 32.5 mmol/L 21.0-31.0 [facility] Chloride [Moles/volume] in S cecilia or PlasmaOrdered By: Sheldon Xie on 05-24-2023 Chloride [Moles/Vol] 108 mmol/L 98-107 [facility] Cholesterol [Mass/volume] in Serum or PlasmaOrdered By: Sheldon Xie on 05-24-2023 Cholesterol [Mass/Vol] 176 mg/dL 140-200 [facility] Comment on above: Chol less than 200 m g/dl low riskChol 201-239 mg/dl borderline riskChol 240 mg/dl and greater high risk Cholesterol in LDL Calc [Mas s/Vol]Ordered By: Sheldon Xie on 05-24-2023 Cholesterol in LDL [Mass/Vol] 96 mg/dL 0-100 [facility] Comment on above: LDL ATP III CLASSIFI CATIONLDL less than 100 mg/dL OptimalLDL 100-129 mg/dL Near or above optimalLDL 130-159 mg/dL Borderline highLDL 160-189 mg/dL HighLDL greater than 189 mg/dL Very high Cholesterol in VLDL Calc [Ma ss/Vol]Ordered By: Sheldon Xie on 05-24-2023 Cholesterol in VLDL [Mass/Vol] 23 mg/dL [facility] Creatinine [Mass/volume] in Serum or PlasmaOrdered By: Sheldon Xie on 05-24-2023 Creatinine [Mass/Vol] 0.92 mg/dL 0.60-1.20 [facility] Eosinophils Auto (Bld) [#/Vo l]Ordered By: Sheldon Xie on 05-24-2023 Eosinophils (Bld) [#/Vol] 0.3 10*3/uL 0.0-0.45 [facility] Eosinophils/100 WBC Auto (Bl d)Ordered By: Sheldon Xie on 05-24-2023 Eosinophils/100 WBC (Bld) 3.9 % . [facility] Erythrocyte distribution wid th Auto (RBC) [Ratio]Ordered By: Sheldon Xie on 05-24-2023 Erythrocyte distribution width (RBC) [Ratio] 13.6 % 11.9-15.3 [facility] Globulin Calc (S) [Mass/Vol] Ordered By: Sheldon Xie on 05-24-2023 Globulin (S) [Mass/Vol] 2.5 g/dL [facility] Glucose [Mass/volume] in Ser um or PlasmaOrdered By: Sheldon Xie on 05-24-2023 Glucose [Mass/Vol] 90 mg/dL 70-[address] [facility] Comment on above: ADA recommended refe rence rangeRandom Glucose Reference Range is dependent on time and content of last meal. Glucose of more than 200 mg/dL in a nonstressed, ambulatory subject supports the diagnosis of Diabetes Mellitus. Hematocrit Auto (Bld) [Volum e fraction]Ordered By: Sheldon Xie on 05-24-2023 Hematocrit (Bld) [Volume fraction] 39.0 % 34.0-46.4 [facility] Hemoglobin [Mass/volume] in BloodOrdered By: Sheldon Xie on 05-24-2023 Hemoglobin (Bld) [Mass/Vol] 12.7 g/dL 11.8-15.4 [facility] Leukocytes [#/volume] correc sandra for nucleated erythrocytes in Blood by Automated counOrdered By: Sheldon Xie on 05-24-2023 WBC corrected for nucl RBC Auto (Bld) [#/Vol] 7.3 10*3/uL 3.8-11.6 [facility] Lymphocytes Auto (Bld) [#/Vo l]Ordered By: Sheldon Xie on 05-24-2023 Lymphocytes (Bld) [#/Vol] 1.8 10*3/uL 1.00-4.8 [facility] Lymphocytes/100 WBC Auto (Bl d)Ordered By: Sheldon Xie on 05-24-2023 Lymphocytes/100 WBC (Bld) 24.8 % . [facility] MCH Auto (RBC) [Entitic mass ]Ordered By: Sheldon Xie on 05-24-2023 MCH (RBC) [Entitic mass] 31.8 pg 24.7-34.3 [facility] MCHC Auto (RBC) [Mass/Vol]Or dered By: Sheldon Xie on 05-24-2023 MCHC (RBC) [Mass/Vol] 32.7 g/dL 32.0-35.0 [facility] MCV Auto (RBC) [Entitic vol] Ordered By: Sheldon Xie on 05-24-2023 MCV (RBC) [Entitic vol] 97.2 fL 80-100 [facility] Monocytes Auto (Bld) [#/Vol] Ordered By: Sheldon Xie on 05-24-2023 Monocytes (Bld) [#/Vol] 0.7 10*3/uL 0.0-0.8 [facility] Monocytes/100 WBC Auto (Bld) Ordered By: Sheldon Xie on 05-24-2023 Monocytes/100 WBC (Bld) 9.5 % . [facility] Neutrophils Auto (Bld) [#/Vo l]Ordered By: Sheldon Xie on 05-24-2023 Neutrophils (Bld) [#/Vol] 4.4 10*3/uL 1.8-7.7 [facility] Neutrophils/100 WBC Auto (Bl d)Ordered By: Sheldon Xie on 05-24-2023 Neutrophils/100 WBC (Bld) 60.8 % . [facility] No Panel InformationOrdered By: Sheldon Xie on 05-24-2023 Estimated GFR (CKD-EPI) > 60.0 mL/Min [facility] Creatinine Clearance (Chem N/A [facility] Nucleated erythrocytes [Pres ence] in Blood by Automated countOrdered By: Sheldon Xie on 05-24-2023 Nucleated RBC Auto Ql (Bld) 0.1 /100{WBC} 0-0.5 [facility] Platelet mean volume Auto (B ld) [Entitic vol]Ordered By: Sheldon Xie on 05-24-2023 Platelet mean volume (Bld) [Entitic vol] 8.5 fL 6.3-10.7 [facility] Platelets Auto (Bld) [#/Vol] Ordered By: Sheldon Xie on 05-24-2023 Platelets (Bld) [#/Vol] 303 10*3/uL 150-450 [facility] Potassium [Moles/volume] in Serum or PlasmaOrdered By: Sheldon Xie on 05-24-2023 Potassium [Moles/Vol] 4.5 mmol/L 3.5-5.1 [facility] Protein [Mass/volume] in Ser um or PlasmaOrdered By: Sheldon Xie on 05-24-2023 Protein [Mass/Vol] 6.7 g/dL 6.4-8.[address] [facility] RBC Auto (Bld) [#/Vol]Ordere d By: Sheldon Xie on 05-24-2023 RBC (Bld) [#/Vol] 4.01 10*6/uL 3.60-5.00 [facility] Serum or plasma albumin/glob ulin mass ratioOrdered By: Sheldon Xie on 05-24-2023 Albumin/Globulin [Mass ratio] 1.7 {ratio} [facility] Serum or plasma anion gap de terminationOrdered By: Sheldon Xie on 05-24-2023 Anion gap [Moles/Vol] 8.0 mmol/L 6.0-15.0 [facility] Serum or plasma high density lipoprotein (HDL) cholesterol measurementOrdered By: Sheldon Xie on 05-24-2023 Cholesterol in HDL [Mass/Vol] 57 mg/dL 23- [facility] Comment on above: HDL CHOL ATP-III CLA SSIFICATION Cardiovascular RiskHDL > or equal to 60 mg/dL LOWHDL < 40 mg/dL HIGH Serum or plasma total choles terol/high density lipoprotein (HDL) cholesterol mass ratOrdered By: Sheldon Xie on 05-24-2023 Cholesterol.total/Renu sterol in HDL [Mass ratio] 3.1 {ratio} <5.0 [facility] Sodium [Moles/volume] in Ser um or PlasmaOrdered By: Sheldon Xie on 05-24-2023 Sodium [Moles/Vol] 144 mmol/L 136-[address] [facility] Thyrotropin [Units/volume] i n Serum or PlasmaOrdered By: Sheldon Xie on 05-24-2023 TSH Qn 2.85 m[IU]/L 0.45-5.33 [facility] Triglyceride [Mass/volume] i n Serum or PlasmaOrdered By: Sheldon Xie on 05-24-2023 Triglyceride [Mass/Vol] 115 mg/dL 0-149 [facility] Comment on above: TRIG ATP III CLASSIF ICATIONTRIG less than 150 mg/dL NormalTRIG 150-199 mg/dL Borderline highTRIG 200-500 mg/dL High TRIG greater than 500 mg/dL Very highStandard traceable to the Center for Disease Conrtrol and Prevention (CDC) test method. Urea nitrogen [Mass/volume] in Serum or PlasmaOrdered By: Sheldon Xie on 05-24-2023 Urea nitrogen [Mass/Vol] 29 mg/dL 7 [facility] WBC Auto (Bld) [#/Vol]Ordere d By: Sheldon Xie on 05-24-2023 WBC (Bld) [#/Vol] 7.3 10*3/uL 3.8-11.[address] [facility] CALCIUMon 01-10-2023 Calcium [Mass/Vol] 9.4 mg/dL Normal 8.5-10.1 [facility] Comment on above: Performed By: #### DEBBIE NOONAN #### [facility] [address] [place] [address] Dr. Mayank Khan CREATININEon 01-10-2023 Creatinine [Mass/Vol] 1.06 mg/dL Critically high 0.55-1.02 [facility] Comment on above: Performed By: #### DEBBIE NOONAN #### [facility] [address] [place] [address] Dr. Mayank Khan EGFR-AF LITHUANIAN =60 Normal >=60 [facility] Comment on above: Performed By: #### DEBBIE NOONAN #### [facility] [address] [place] [address] Dr. Mayank Khan EGFR-NON AF LITHUANIAN 50 mL/min/1.73m2 Critically low >=60 [facility] Comment on above: Performed By: #### DEBBIE NOONAN #### [facility] [address] [place] [address] Dr. Mayank Khan CALCIUMon 12-12-2022 Calcium [Mass/Vol] 9.8 mg/dL Normal 8.5-10.1 [facility] Comment on above: Performed By: #### DEBBIE NOONAN #### [facility] [address] [place] [address] Dr. Mayank Khan CREATININEon 12-12-2022 Creatinine [Mass/Vol] 0.77 mg/dL Normal 0.55-1.02 [facility] Comment on above: Performed By: #### DEBBIE NOONAN #### [facility] [address] [address] [address] Mayank Khan EGFR-AF LITHUANIAN >60 Normal >=60 [facility] Comment on above: Performed By: #### [place] [facility], [place] #### [facility] [address] [address] [address] Mayank Khan EGFR-NON AF LITHUANIAN >60 Normal >=60 [facility] Comment on above: Performed By: #### [place], [place] #### [facility] [address] [address] [address] Mayank Khan Basophils Auto (Bld) [#/Vol] Ordered By: Sheldon Xie on 09-29-2022 Basophils (Bld) [#/Vol] 0.1 10*3/uL 0.0-0.2 [facility] Basophils/100 WBC Auto (Bld) Ordered By: Sheldon Xie on 09-29-2022 Basophils/100 WBC (Bld) 0.9 % . [facility] Body fluid albumin measureme nt (mass/volume)Ordered By: Sheldon Xie on 09-29-2022 Albumin (Body fld) [Mass/Vol] 4.2 g/dL 3.2-5.5 [facility] Cholesterol [Mass/volume] in Serum or PlasmaOrdered By: Sheldon Xie on 09-29-2022 Cholesterol [Mass/Vol] 182 mg/dL 140-200 [facility] Comment on above: Chol less than 200 m g/dl low riskChol 201-239 mg/dl borderline riskChol 240 mg/dl and greater high risk Cholesterol in LDL Calc [Mas s/Vol]Ordered By: Sheldon Xie on 09-29-2022 Cholesterol in LDL [Mass/Vol] 105 mg/dL 0-100 [facility] Comment on above: LDL ATP III CLASSIFI CATIONLDL less than 100 mg/dL OptimalLDL 100-129 mg/dL Near or above optimalLDL 130-159 mg/dL Borderline highLDL 160-189 mg/dL HighLDL greater than 189 mg/dL Very high Cholesterol in VLDL Calc [Ma ss/Vol]Ordered By: Sheldon Xie on 09-29-2022 Cholesterol in VLDL [Mass/Vol] 17 mg/dL [facility] Complete Blood Count Auto Di ffon 09-29-2022 Basophils (Bld) [#/Vol] 0.668210377 10*3/uL Normal 0.0-0.2 10*3/uL [facility] Basophils/100 WBC (Bld) 0.900 % . % [facility] Other Eosinophils (Bld) [#/Vol] 0.836400770 10*3/uL Normal 0.0-0.45 10*3/uL [facility] Eosinophils/100 WBC (Bld) 2.700 % . % [facility] Erythrocyte distribution width (RBC) [Ratio] 14.400 % Normal 11.9-15.3 % [facility] Hematocrit (Bld) [Volume fraction] 39.000 % Normal 34.0-46.4 % [facility] Hemoglobin (Bld) [Mass/Vol] 12.613167 g/dL Normal 11.8-15.4 g/dL [facility] Lymphocytes (Bld) [#/Vol] 1.536913939 10*3/uL Normal 1.00-4.8 10*3/uL [facility] Lymphocytes/100 WBC (Bld) 25.800 % . % [facility] MCH (RBC) [Entitic mass] 31.1000 pg Normal 24.7-34.3 pg [facility] Other MCV (RBC) [Entitic vol] 97.1000 fL Normal 80-100 fL [facility] Other Monocytes (Bld) [#/Vol] 0.446683339 10*3/uL Normal 0.0-0.8 10*3/uL [facility] Monocytes/100 WBC (Bld) 8.200 % . % [facility] Other Neutrophils (Bld) [#/Vol] 4.807014646 10*3/uL Normal 1.8-7.7 10*3/uL [facility] Neutrophils/100 WBC (Bld) 62.400 % . % [facility] Other Platelet mean volume (Bld) [Entitic vol] 8.2000 fL Normal 6.3-10.7 fL [facility] Other WBC (Bld) [#/Vol] 7.683453133 10*3/uL Normal 3.8 -11.6 10*3/uL [facility] Complete Blood Count Auto Diff 7.4 10*3/uL Normal 3.8-11.6 10*3/uL [facility] Other Complete Blood Count Auto Diff 32.1 g/dL Normal 32.0-35.0 g/dL [facility] Other Complete Blood Count Auto Diff 0.1 /100{WBC} Normal 0-0.5 /100{WBC} [facility] Comprehensive Metabolic Pane julisa 09-29-2022 Albumin [Mass/Vol] 4.306406 g/dL Normal 3.2-5.5 g/dL [facility] Other ALT [Catalytic activity/Vol] 16 U/L Normal 10-60 U/L [facility] Other Bilirubin [Mass/Vol] 0.7740433 mg/dL Normal 0.3- 1.2 mg/dL [facility] Calcium [Mass/Vol] 9.1584468 mg/dL Normal 8.2-10 .2 mg/dL [facility] Other CO2 [Moles/Vol] 24.42394414 mmol/L Normal 22.0-3 0.0 mmol/L [facility] Creatinine [Mass/Vol] 0.34922668 mg/dL Normal 0. 44-1.03 mg/dL [facility] Potassium [Moles/Vol] 4.70997981 mmol/L Normal 3 .5-5.1 mmol/L [facility] Other Protein [Mass/Vol] 6.105639 g/dL Normal 6.1-7.9 g/dL [facility] Comprehensive Metabolic Panel > 60 [facility] Comprehensive Metabolic Panel 2.5 g/dL [facility] Other Creatinine and Glomerular fi ltration rate.predicted panel (S/P/Bld)Ordered By: Sheldon Xie on 09-29-2022 Creatinine [Mass/Vol] 0.84 mg/dL 0.44-1.03 [facility] Eosinophils Auto (Bld) [#/Vo l]Ordered By: Sheldon Xie on 09-29-2022 Eosinophils (Bld) [#/Vol] 0.2 10*3/uL 0.0-0.45 [facility] Eosinophils/100 WBC Auto (Bl d)Ordered By: Sheldon Xie on 09-29-2022 Eosinophils/100 WBC (Bld) 2.7 % . [facility] Erythrocyte distribution wid th Auto (RBC) [Ratio]Ordered By: Sheldon Xie on 09-29-2022 Erythrocyte distribution width (RBC) [Ratio] 14.4 % 11.9-15.3 [facility] Erythrocytes [#/volume] in B lood by Automated countOrdered By: Sheldon Xie on 09-29-2022 RBC (Bld) [#/Vol] 4.02 10*6/uL 3.60-5.00 [facility] Estimated glomerular filtrat ion rate (GFR) non- AmericanOrdered By: Sheldon Xie on 09-29-2022 GFR/1.73 sq M.predicted among non-blacks MDRD (S/P/Bld) [Vol rate/Area] > 60 mL/Min [facility] Globulin Calc (S) [Mass/Vol] Ordered By: Sheldon Xie on 09-29-2022 Globulin (S) [Mass/Vol] 2.5 g/dL [facility] Hematocrit Auto (Bld) [Volum e fraction]Ordered By: Sheldon Xei on 09-29-2022 Hematocrit (Bld) [Volume fraction] 39.0 % 34.0-46.4 [facility] Hemoglobin [Mass/volume] in BloodOrdered By: Sheldon Xie on 09-29-2022 Hemoglobin (Bld) [Mass/Vol] 12.5 g/dL 11.8-15.4 [facility] Leukocytes [#/volume] correc sandra for nucleated erythrocytes in Blood by Automated counOrdered By: Sheldon Xie on 09-29-2022 WBC corrected for nucl RBC Auto (Bld) [#/Vol] 7.4 10*3/uL 3.8-11.6 [facility] Lipid Panelon 09-29-2022 Cholesterol in LDL Elph Qn 105 mg/dL High 0-100 mg/dL [facility] Other Lipid Panel 89 mg/dL Normal 35-149 mg/dL [facility] Other Lipid Panel 17 mg/dL [employer] [facility] Other Lymphocytes Auto (Bld) [#/Vo l]Ordered By: Sheldon Xie on 09-29-2022 Lymphocytes (Bld) [#/Vol] 1.9 10*3/uL 1.00-4.8 [facility] Lymphocytes/100 WBC Auto (Bl d)Ordered By: Sheldon Xie on 09-29-2022 Lymphocytes/100 WBC (Bld) 25.8 % . [facility] MCH Auto (RBC) [Entitic mass ]Ordered By: Sheldon Xie on 09-29-2022 MCH (RBC) [Entitic mass] 31.1 pg 24.7-34.3 [facility] MCHC Auto (RBC) [Mass/Vol]Or dered By: Sheldon Xie on 09-29-2022 MCHC (RBC) [Mass/Vol] 32.1 g/dL 32.0-35.0 [facility] MCV Auto (RBC) [Entitic vol] Ordered By: Sheldon Xie on 09-29-2022 MCV (RBC) [Entitic vol] 97.1 fL 80-100 [facility] Monocytes Auto (Bld) [#/Vol] Ordered By: Sheldon Xie on 09-29-2022 Monocytes (Bld) [#/Vol] 0.6 10*3/uL 0.0-0.8 [facility] Monocytes/100 WBC Auto (Bld) Ordered By: Sheldon Xie on 09-29-2022 Monocytes/100 WBC (Bld) 8.2 % . [facility] Neutrophils Auto (Bld) [#/Vo l]Ordered By: Sheldon Xie on 09-29-2022 Neutrophils (Bld) [#/Vol] 4.7 10*3/uL 1.8-7.7 [facility] Neutrophils/100 WBC Auto (Bl d)Ordered By: Sheldon Xie on 09-29-2022 Neutrophils/100 WBC (Bld) 62.4 % . [facility] No Panel InformationOrdered By: Sammie Duran on 09-29-2022 25-Hydroxy Vitamin D Total 74.2 ng/mL 30-100 [facility] Comment on above: VITAMIN D STATUS 25( [place])VITAMIN D RANGE (ng/mL) Deficient <20 Insufficient 20 to <30Sufficient 30 to 100Reference: Baldo MF,Raina NC, Juan HOLLOWAY, et al. Evaluation,treatment, and prevention of vitamin D deficiency; an Endocrine Society clinical practice guideline. JCEM. 2010; 96(7):1911-30. No Panel InformationOrdered By: Sheldon Xie on 09-29-2022 Estimated GFR () > 60 mL/Min [facility] Comment on above: GFR estimated refere nce range: According to KDOQI guidelines, <60 ml/min/1.73m2 is sufficient to diagnose a patient with chronic kidney disease. Pharmacy Creatinine Clearance (Chem N/A [facility] Nucleated erythrocytes [Pres ence] in Blood by Automated countOrdered By: Sheldon Xie on 09-29-2022 Nucleated RBC Auto Ql (Bld) 0.1 /100{WBC} 0-0.5 [facility] Parathyroid Hormone Intacton 09-29-2022 Parathyroid Hormone Intact 50.1 pg/mL Normal 12-88 pg/mL [employer] Other Platelet mean volume Auto (B ld) [Entitic vol]Ordered By: Sheldon Xie on 09-29-2022 Platelet mean volume (Bld) [Entitic vol] 8.2 fL 6.3-10.7 [facility] Platelets [#/volume] in Bloo d by Automated countOrdered By: Sheldon Xie on 09-29-2022 Platelets (Bld) [#/Vol] 285 10*3/uL 150-450 [facility] Protein [Mass/volume] in Ser um or PlasmaOrdered By: Sheldon Xie on 09-29-2022 Protein [Mass/Vol] 6.7 g/dL 6.1-7.[address] [facility] Serum or plasma alanine wilder otransferase measurement without P-5'-P (enzymatic activiOrdered By: Sheldon Xie on 09-29-2022 ALT No additional P-5'-P [Catalytic activity/Vol] 16 U/L 10-60 [facility] Serum or plasma albumin/glob ulin mass ratioOrdered By: Sheldon Xie on 09-29-2022 Albumin/Globulin [Mass ratio] 1.7 {ratio} [facility] Serum or plasma alkaline bailey sphatase measurement (enzymatic activity/volume)Ordered By: Sheldon Xie on 09-29-2022 ALP [Catalytic activity/Vol] 41 U/L 32-92 [facility] Serum or plasma anion gap de terminationOrdered By: Sheldon Xie on 09-29-2022 Anion gap [Moles/Vol] 14.1 mmol/L 6.0-15.0 [facility] Serum or plasma aspartate am inotransferase measurement (enzymatic activity/volume)Ordered By: Sheldon Xie on 09-29-2022 AST [Catalytic activity/Vol] 22 U/L 10-42 [facility] Serum or plasma calcium prachi urement (mass/volume)Ordered By: Sheldon Xie on 09-29-2022 Calcium [Mass/Vol] 9.7 mg/dL 8.2-10.[address] [facility] Serum or plasma chloride darcy surement (moles/volume)Ordered By: Sheldon Xie on 09-29-2022 Chloride [Moles/Vol] 105 mmol/L 95-114 [facility] Serum or plasma glucose prachi urement (mass/volume)Ordered By: Sheldon Xie on 09-29-2022 Glucose [Mass/Vol] 78 mg/dL 70-[address] [facility] Comment on above: ADA recommended refe rence rangeRandom Glucose Reference Range is dependent on time and content of last meal. Glucose of more than 200 mg/dL in a nonstressed, ambulatory subject supports the diagnosis of Diabetes Mellitus. Serum or plasma high density lipoprotein (HDL) cholesterol measurementOrdered By: Sheldon Xie on 09-29-2022 Cholesterol in HDL [Mass/Vol] 59 mg/dL 35-85 [facility] Comment on above: HDL CHOL ATP-III CLA SSIFICATION Cardiovascular RiskHDL > or equal to 60 mg/dL LOWHDL < 40 mg/dL HIGH Serum or plasma intact parat hyroid hormone measurement (mass/volume)Ordered By: Sammie Duran on 09-29-2022 Parathyrin.intact [Mass/Vol] 50.1 pg/mL 12- [facility] Serum or plasma potassium me asurement (moles/volume)Ordered By: Sheldon Xie on 09-29-2022 Potassium [Moles/Vol] 4.6 mmol/L 3.5-5.1 [facility] Serum or plasma sodium measu rement (moles/volume)Ordered By: Sheldon Xie on 09-29-2022 Sodium [Moles/Vol] 139 mmol/L 136-[address] [facility] Serum or plasma total biliru bin measurement (mass/volume)Ordered By: Sheldon Xie on 09-29-2022 Bilirubin [Mass/Vol] 0.7 mg/dL 0.3-1.2 [facility] Serum or plasma total carbon dioxide measurement (moles/volume)Ordered By: Sheldon Xie on 09-29-2022 CO2 [Moles/Vol] 24.5 mmol/L 22.0-30.0 [facility] Serum or plasma total choles terol/high density lipoprotein (HDL) cholesterol mass ratOrdered By: Sheldon Xie on 09-29-2022 Cholesterol.total/Renu sterol in HDL [Mass ratio] 3.1 {ratio} <5.0 [facility] Serum or plasma urea nitroge n measurement (mass/volume)Ordered By: Sheldon Xie on 09-29-2022 Urea nitrogen [Mass/Vol] 23 mg/dL 9-23 [facility] TSH DL <= 0.005 mIU/L QnOrde red By: Sheldon Xie on 09-29-2022 TSH Qn 1.86 m[IU]/L 0.45-5.33 [facility] Thyroid Stimulating Hormoneo n 09-29-2022 TSH Qn 1.66896132832 m[IU]/L Normal 0.45-5 .33 u[iU]/mL [employer] [facility] [employer] Other Triglyceride [Mass/volume] i n Serum or PlasmaOrdered By: Sheldon Xei on 09-29-2022 Triglyceride [Mass/Vol] 89 mg/dL 35-149 [facility] Comment on above: TRIG ATP III CLASSIF ICATIONTRIG less than 150 mg/dL NormalTRIG 150-199 mg/dL Borderline highTRIG 200-500 mg/dL High TRIG greater than 500 mg/dL Very highStandard traceable to the Center for Disease Conrtrol and Prevention (CDC) test method. Vitamin D 25 Hydroxy Totalon 09-29-2022 Vitamin D 25 Hydroxy Total 74.2 ng/mL Normal 30-100 ng/mL [employer] Other WBC Auto (Bld) [#/Vol]Ordere d By: Sheldon Xie on 09-29-2022 WBC (Bld) [#/Vol] 7.4 10*3/uL 3.8-11.[address] [facility] XR foot RT min 3V*on 023 XR foot RT min 3V* [facility] [employer] Other XR foot RT min 3V* [facility] [employer] Other XR foot RT min 3V* [address] [employer] Other XR foot RT min 3V* [place] Jurado [id number] [employer] Other XR foot RT min 3V* XRay Report [employer] Other XR foot RT min 3V* Signed [employer] Other XR foot RT min 3V* Patient: Aleksandr Sanchez MR#: [id number] [employer] Other XR foot RT min 3V* [id number] [employer] Other XR foot RT min 3V* : 1940 Acct:[id number] [employer] Other XR foot RT min 3V* Age/Sex: 82 / F ADM Date: 09/15/22 [employer] Other XR foot RT min 3V* Loc: [facility] Room: Type : [facility] [employer] Other XR foot RT min 3V* Attending Dr: Sammie Duran NUT SIFTERSujata [employer] Other XR foot RT min 3V* Copies to: Sammie Duran [facility] [employer] Other XR foot RT min 3V* Ordering Provider: VANE RichardsOrly [employer] Other XR foot RT min 3V* Date of Service: 09/15/22 [employer] Other XR foot RT min 3V* XR/XR foot RT min 3V*: S92.351D [employer] Other XR foot RT min 3V* XR foot RT min 3V* 09/15/2022 1:17 PM [employer] Other XR foot RT min 3V* SIGNS AND SYMPTOMS: Follow-up with mildly displaced fifth metatarsal fracture [employer] Other XR foot RT min 3V* PROTOCOL: Frontal, lateral, and oblique radiographs of the right foot [employer] Other XR foot RT min 3V* COMPARISON: 09/01/2022 [employer] Other XR foot RT min 3V* FINDINGS: [employer] Other XR foot RT min 3V* There is redemonstration of an obliquely oriented fracture of the proximal shaft of the fifth [employer] Other XR foot RT min 3V* metatarsal. There is no significant interval healing. No change in alignment. No additional [employer] Other XR foot RT min 3V* fractures. Findings suggest a remote healed fracture of the second metatarsal. [employer] Other XR foot RT min 3V* XR/XR foot RT min 3V* [employer] Other XR foot RT min 3V* IMPRESSION: [employer] Other XR foot RT min 3V* metatarsal. There is no significant interval healing. No change in alignment. [employer] Other XR foot RT min 3V* Impression dictated by: Gray Mukherjee M.D.09/15/2022 2:05 PM [employer] Other XR foot RT min 3V* Dictation Location: [place] [address] [employer] Other XR foot RT min 3V* Transcribed By: BRANDON 09/15/22 1405 [employer] Other XR foot RT min 3V* Dictated By: Gray Mukherjee II, MD 09/15/22 1404 [employer] Other XR foot RT min 3V* Signed By: [employer] Other XR foot RT min 3V* 09/15/22 1405 [place] [employer] Other XR foot RT min 3V*on 023 XR foot RT min 3V* [facility] [employer] Other XR foot RT min 3V* [facility] [place] [employer] Other XR foot RT min 3V* [address] [facility] [employer] Other XR foot RT min 3V* [place] [address] [employer] Other XR foot RT min 3V* XRay Report [employer] Other XR foot RT min 3V* Signed [employer] Other XR foot RT min 3V* Patient: Aleksandr Sanchez MR#: [id number] [employer] Other XR foot RT min 3V* [id number] [employer] Other XR foot RT min 3V* : 1940 Acct:[id number] [employer] Other XR foot RT min 3V* Age/Sex: 82 / F ADM Date: 09/01/22 [employer] Other XR foot RT min 3V* Loc: XDS Room: Type: REG CLI [employer] Other XR foot RT min 3V* Attending Dr: Sheldon Xie DO [employer] Other XR foot RT min 3V* Copies to: Sheldon Xie DO [employer] Other XR foot RT min 3V* Ordering Provider: Sheldon Xie DO [employer] Other XR foot RT min 3V* Date of Service: 09/01/22 [employer] Other XR foot RT min 3V* XR/XR foot RT min 3V*: Injury of right foot, initial encounter;Right foot [employer] Other XR foot RT min 3V* pain [employer] Other XR foot RT min 3V* RIGHT FOOT - 3 views [employer] Other XR foot RT min 3V* CLINICAL HISTORY: Bilateral foot pain, swelling and bruising for one day. [employer] Other XR foot RT min 3V* COMPARISON: Right foot 08/12/2015 [employer] Other XR foot RT min 3V* FINDINGS: [employer] Other XR foot RT min 3V* No focal soft tissue abnormality. No radiopaque foreign body. There is a mildly displaced fracture [employer] Other XR foot RT min 3V* involving the shaft of the fifth metatarsal. No additional fractures are seen. No bony erosions. [employer] Other XR foot RT min 3V* XR/XR foot RT min 3V* [employer] Other XR foot RT min 3V* IMPRESSION: [employer] Other XR foot RT min 3V* MILDLY DISPLACED FRACTURE INVOLVING THE SHAFT OF THE FIFTH METATARSAL. [employer] Other XR foot RT min 3V* Impression dictated by: Rusty Sepulveda Jr., D.OMeghan09/01/2022 2:57 PM [employer] Other XR foot RT min 3V* Dictation Location: [place] [address] [employer] Other XR foot RT min 3V* Transcribed By: BRANDON 09/01/22 1457 [employer] Other XR foot RT min 3V* Dictated By: Rusty Sepulveda Jr, DO 09/01/22 1454 [place] [employer] Other XR foot RT min 3V* Signed By: [place] [employer] Other XR foot RT min 3V* 09/01/22 1457 [place] [employer] Other COVID Quick Testingon 2021 Result Positive [facility] Other Quick Fluon 07-29-2022 FLUAV Ab CF (S) [Titer] Negative [facility] [employer] Other FLUBV Ab CF (S) [Titer] Negative [employer] Other Albumin [Mass/volume] in Ser um or PlasmaOrdered By: Sheldon Xie on 06-16-2022 Albumin [Mass/Vol] 3.8 g/dL 3.2-5.[address] [facility] Basophils Auto (Bld) [#/Vol] Ordered By: Sheldon Xie on 06-16-2022 Basophils (Bld) [#/Vol] 0.1 10*3/uL 0.0-0.2 [facility] Basophils/100 WBC Auto (Bld) Ordered By: Sheldon Xie on 06-16-2022 Basophils/100 WBC (Bld) 1.0 % . [facility] Creatinine and Glomerular fi ltration rate.predicted panel (S/P/Bld)Ordered By: Sheldon Xie on 06-16-2022 Creatinine [Mass/Vol] 0.75 mg/dL 0.44-1.03 [facility] Eosinophils Auto (Bld) [#/Vo l]Ordered By: Sheldon Xie on 06-16-2022 Eosinophils (Bld) [#/Vol] 0.4 10*3/uL 0.0-0.45 [facility] Eosinophils/100 WBC Auto (Bl d)Ordered By: Sheldon Xie on 06-16-2022 Eosinophils/100 WBC (Bld) 5.8 % . [facility] Erythrocyte distribution wid th Auto (RBC) [Ratio]Ordered By: Sheldon Xie on 06-16-2022 Erythrocyte distribution width (RBC) [Ratio] 13.9 % 11.9-15.3 [facility] Estimated glomerular filtrat ion rate (GFR) non- AmericanOrdered By: Sheldon Xie on 06-16-2022 GFR/1.73 sq M.predicted among non-blacks MDRD (S/P/Bld) [Vol rate/Area] > 60 mL/Min [facility] Globulin Calc (S) [Mass/Vol] Ordered By: Sheldon Xie on 06-16-2022 Globulin (S) [Mass/Vol] 3.0 g/dL [facility] Hematocrit Auto (Bld) [Volum e fraction]Ordered By: Sheldon Xie on 06-16-2022 Hematocrit (Bld) [Volume fraction] 41.1 % 34.0-46.4 [facility] Hemoglobin [Mass/volume] in BloodOrdered By: Sheldon Xie on 06-16-2022 Hemoglobin (Bld) [Mass/Vol] 13.1 g/dL 11.8-15.4 [facility] Laboratory - Hematology and Cell countsOrdered By: Sheldon Xie on 06-16-2022 Nucleated RBC/100 WBC (Bld) [Ratio] 0.1 % 0-0.5 [facility] Leukocytes [#/volume] in Blo od by Automated countOrdered By: Sheldon Xie on 06-16-2022 WBC (Bld) [#/Vol] 6.0 10*3/uL 4.5-11.[address] [facility] Lymphocytes Auto (Bld) [#/Vo l]Ordered By: Sheldon Xie on 06-16-2022 Lymphocytes (Bld) [#/Vol] 1.9 10*3/uL 1.00-4.8 [facility] Lymphocytes/100 WBC Auto (Bl d)Ordered By: Sheldon Xie on 06-16-2022 Lymphocytes/100 WBC (Bld) 32.1 % . [facility] MCH Auto (RBC) [Entitic mass ]Ordered By: Sheldon Xie on 06-16-2022 MCH (RBC) [Entitic mass] 32.0 pg 24.7-34.3 [facility] MCHC Auto (RBC) [Mass/Vol]Or dered By: Sheldon Xie on 06-16-2022 MCHC (RBC) [Mass/Vol] 32.0 g/dL 32.0-35.0 [facility] MCV Auto (RBC) [Entitic vol] Ordered By: Sheldon Xie on 06-16-2022 MCV (RBC) [Entitic vol] 99.9 fL 80-100 [facility] Monocytes Auto (Bld) [#/Vol] Ordered By: Sheldon Xie on 06-16-2022 Monocytes (Bld) [#/Vol] 0.6 10*3/uL 0.0-0.8 [facility] Monocytes/100 WBC Auto (Bld) Ordered By: Sheldon Xie on 06-16-2022 Monocytes/100 WBC (Bld) 9.6 % . [facility] Neutrophils Auto (Bld) [#/Vo l]Ordered By: Sheldon Xie on 06-16-2022 Neutrophils (Bld) [#/Vol] 3.1 10*3/uL 1.8-7.7 [facility] Neutrophils/100 WBC Auto (Bl d)Ordered By: Sheldon Xie on 06-16-2022 Neutrophils/100 WBC (Bld) 51.5 % . [facility] No Panel InformationOrdered By: Sheldon Xie on 06-16-2022 Estimated GFR () > 60 mL/Min [facility] Comment on above: GFR estimated refere nce range: According to KDOQI guidelines, <60 ml/min/1.73m2 is sufficient to diagnose a patient with chronic kidney disease. Pharmacy Creatinine Clearance (Chem N/A [facility] Platelet mean volume Auto (B ld) [Entitic vol]Ordered By: Sheldon Xie on 06-16-2022 Platelet mean volume (Bld) [Entitic vol] 9.2 fL 6.3-10.7 [facility] Platelets Auto (Bld) [#/Vol] Ordered By: Sheldon Xie on 06-16-2022 Platelets (Bld) [#/Vol] 361 10*3/uL 150-450 [facility] Protein [Mass/volume] in Ser um or PlasmaOrdered By: Sheldon Xie on 06-16-2022 Protein [Mass/Vol] 6.8 g/dL 6.1-7.[address] [facility] RBC Auto (Bld) [#/Vol]Ordere d By: Sheldon Xie on 06-16-2022 RBC (Bld) [#/Vol] 4.11 10*6/uL 3.60-5.00 [facility] Serum or plasma alanine wilder otransferase measurement without P-5'-P (enzymatic activiOrdered By: Sheldon Xie on 06-16-2022 ALT No additional P-5'-P [Catalytic activity/Vol] 13 U/L 10-60 [facility] Serum or plasma albumin/glob ulin mass ratioOrdered By: Sheldon Xie on 06-16-2022 Albumin/Globulin [Mass ratio] 1.3 {ratio} [facility] Serum or plasma alkaline bailey sphatase measurement (enzymatic activity/volume)Ordered By: Sheldon Xie on 06-16-2022 ALP [Catalytic activity/Vol] 44 U/L 32-92 [facility] Serum or plasma anion gap de terminationOrdered By: Sheldon Xie on 06-16-2022 Anion gap [Moles/Vol] 11.1 mmol/L 6.0-15.0 [facility] Serum or plasma aspartate am inotransferase measurement (enzymatic activity/volume)Ordered By: Sheldon Xie on 06-16-2022 AST [Catalytic activity/Vol] 23 U/L 10-42 [facility] Serum or plasma calcium prachi urement (mass/volume)Ordered By: Sheldon Xie on 06-16-2022 Calcium [Mass/Vol] 9.7 mg/dL 8.2-10.[address] [facility] Serum or plasma chloride darcy surement (moles/volume)Ordered By: Sheldon Xie on 06-16-2022 Chloride [Moles/Vol] 109 mmol/L 95-114 [facility] Serum or plasma glucose prachi urement (mass/volume)Ordered By: Sheldon Xie on 06-16-2022 Glucose [Mass/Vol] 95 mg/dL 70-[address] [facility] Comment on above: ADA recommended refe rence rangeRandom Glucose Reference Range is dependent on time and content of last meal. Glucose of more than 200 mg/dL in a nonstressed, ambulatory subject supports the diagnosis of Diabetes Mellitus. Serum or plasma potassium me asurement (moles/volume)Ordered By: Sheldon Xie on 06-16-2022 Potassium [Moles/Vol] 4.3 mmol/L 3.5-5.1 [facility] Serum or plasma sodium measu rement (moles/volume)Ordered By: Sheldon Xie on 06-16-2022 Sodium [Moles/Vol] 143 mmol/L 136-[address] [facility] Serum or plasma total biliru bin measurement (mass/volume)Ordered By: Sheldon Xie on 06-16-2022 Bilirubin [Mass/Vol] 0.8 mg/dL 0.3-1.2 [facility] Serum or plasma total carbon dioxide measurement (moles/volume)Ordered By: Sheldon Xie on 06-16-2022 CO2 [Moles/Vol] 27.2 mmol/L 22.0-30.0 [facility] Serum or plasma urea nitroge n measurement (mass/volume)Ordered By: Sheldon Xie on 06-16-2022 Urea nitrogen [Mass/Vol] 14 mg/dL 9-23 [facility] Creatinine and Glomerular fi ltration rate.predicted panel (S/P/Bld)Ordered By: Sheldon Xie on 06-03-2022 Creatinine [Mass/Vol] 0.81 mg/dL 0.44-1.03 [facility] Estimated glomerular filtrat ion rate (GFR) non- AmericanOrdered By: Sheldon Xie on 06-03-2022 GFR/1.73 sq M.predicted among non-blacks MDRD (S/P/Bld) [Vol rate/Area] > 60 mL/Min [facility] No Panel InformationOrdered By: Sheldon Xie on 06-03-2022 Estimated GFR () > 60 mL/Min [facility] Comment on above: GFR estimated refere nce range: According to KDOQI guidelines, <60 ml/min/1.73m2 is sufficient to diagnose a patient with chronic kidney disease. Pharmacy Creatinine Clearance (Chem N/A [facility] Serum or plasma urea nitroge n measurement (mass/volume)Ordered By: Sheldon Xie on 06-03-2022 Urea nitrogen [Mass/Vol] 19 mg/dL 9- [facility] PULMONARY FUNCTION TESTon PULMONARY FUNCTION TEST PULMONARY FUNCTI ON TEST STUDY DATE: 04/05/2022 SIX MINUTE WALK STUDY DIAGNOSIS: Hypoxemia. Six minute walk study was initiated according to standard protocol. Saturation was 95% on room air, heart rate 79, blood pressure 142/65, Eliza Score 0, MMRC 2. Patient ambulated for 2 minutes and desaturated to 87%. She stated that she was short of breath and Eliza Score was 4. This six minute walk study was stopped, and a new six minute walk study was initiated on 2 liters of oxygen. At baseline, oxygenation was 100%, heart rate 68 and blood pressure 140/80. Patient was able to ambulate for 6 minutes for a total distance of 183 meters. Oxygen saturation remained at 95% or greater on 2 liters per minute with a maximum Eliza Score of 5. At recovery, saturation was 98% on 2 liters, heart rate 78, blood pressure 140/78 with a Eliza Score of 3.5. Patient took off oxygen and was 95% on room air. No stops were completed during this second walk study. IMPRESSIONS: Ambulatory desaturations requiring 2 liters per minute of oxygen to maintain saturations greater than 88%. Reduced walk distance at 64% predicted. RECOMMENDATIONS: 2 liters per minute oxygen with activity/ambulation. Clinical correlation required. Normal [facility] Albumin [Mass/volume] in Ser um or PlasmaOrdered By: Sheldon Xie on 04-01-2022 Albumin [Mass/Vol] 4.1 g/dL 3.2-5.[address] [facility] Basophils Auto (Bld) [#/Vol] Ordered By: Sheldon Xie on 04-01-2022 Basophils (Bld) [#/Vol] 0.1 10*3/uL 0.0-0.2 [facility] Basophils/100 WBC Auto (Bld) Ordered By: Sheldon Xie on 04-01-2022 Basophils/100 WBC (Bld) 1.0 % . [facility] Blood hemoglobin measurement (mass/volume)Ordered By: Sheldon Xie on 04-01-2022 Hemoglobin (Bld) [Mass/Vol] 13.4 g/dL 11.8-15.4 [facility] Blood leukocytes automated c ount (number/volume)Ordered By: Sheldon Xie on 04-01-2022 WBC (Bld) [#/Vol] 8.5 10*3/uL 4.5-11.[address] [facility] Cholesterol [Mass/volume] in Serum or PlasmaOrdered By: Sheldon Xie on 04-01-2022 Cholesterol [Mass/Vol] 175 mg/dL 140-200 [facility] Comment on above: Chol less than 200 m g/dl low risk Chol 201-239 mg/dl borderline risk Chol 240 mg/dl and greater high risk Chol less than 200 m g/dl low riskChol 201-239 mg/dl borderline riskChol 240 mg/dl and greater high risk Cholesterol in LDL Calc [Mas s/Vol]Ordered By: Sheldon Xie on 04-01-2022 Cholesterol in LDL [Mass/Vol] 110 mg/dL 0-100 [facility] Comment on above: LDL ATP III CLASSIFI CATION LDL less than 100 mg/dL Optimal LDL 100-129 mg/dL Near or above optimal LDL 130-159 mg/dL Borderline high LDL 160-189 mg/dL High LDL greater than 189 mg/dL Very high LDL ATP III CLASSIFI CATIONLDL less than 100 mg/dL OptimalLDL 100-129 mg/dL Near or above optimalLDL 130-159 mg/dL Borderline highLDL 160-189 mg/dL HighLDL greater than 189 mg/dL Very high Cholesterol in VLDL Calc [Ma ss/Vol]Ordered By: Sheldon Xie on 04-01-2022 Cholesterol in VLDL [Mass/Vol] 14 mg/dL [facility] Creatinine and Glomerular fi ltration rate.predicted panel (S/P/Bld)Ordered By: Sheldon Xie on 04-01-2022 Creatinine [Mass/Vol] 0.93 mg/dL 0.44-1.03 [facility] Eosinophils Auto (Bld) [#/Vo l]Ordered By: Sheldon Xie on 04-01-2022 Eosinophils (Bld) [#/Vol] 0.3 10*3/uL 0.0-0.45 [facility] Eosinophils/100 WBC Auto (Bl d)Ordered By: Sheldon Xie on 04-01-2022 Eosinophils/100 WBC (Bld) 3.2 % . [facility] Erythrocyte distribution wid th Auto (RBC) [Ratio]Ordered By: Sheldon Xie on 04-01-2022 Erythrocyte distribution width (RBC) [Ratio] 14.1 % 11.9-15.3 [facility] Estimated glomerular filtrat ion rate (GFR) non- AmericanOrdered By: Sheldon Xie on 04-01-2022 GFR/1.73 sq M.predicted among non-blacks MDRD (S/P/Bld) [Vol rate/Area] 58 mL/Min [facility] Globulin Calc (S) [Mass/Vol] Ordered By: Sheldon Xie on 04-01-2022 Globulin (S) [Mass/Vol] 2.7 g/dL [facility] Hematocrit Auto (Bld) [Volum e fraction]Ordered By: Sheldon Xie on 04-01-2022 Hematocrit (Bld) [Volume fraction] 41.7 % 34.0-46.4 [facility] Laboratory - Hematology and Cell countsOrdered By: Sheldon Xie on 04-01-2022 Nucleated RBC/100 WBC (Bld) [Ratio] 0.0 % 0-0.5 [facility] Lymphocytes Auto (Bld) [#/Vo l]Ordered By: Sheldon Xie on 04-01-2022 Lymphocytes (Bld) [#/Vol] 1.6 10*3/uL 1.00-4.8 [facility] Lymphocytes/100 WBC Auto (Bl d)Ordered By: Sheldon Xie on 04-01-2022 Lymphocytes/100 WBC (Bld) 18.4 % . [facility] MCH Auto (RBC) [Entitic mass ]Ordered By: Sheldon Xie on 04-01-2022 MCH (RBC) [Entitic mass] 30.9 pg 24.7-34.3 [facility] MCHC Auto (RBC) [Mass/Vol]Or dered By: Sheldon Xie on 04-01-2022 MCHC (RBC) [Mass/Vol] 32.1 g/dL 32.0-35.0 [facility] MCV Auto (RBC) [Entitic vol] Ordered By: Sheldon Xie on 04-01-2022 MCV (RBC) [Entitic vol] 96.5 fL 80-100 [facility] Monocytes Auto (Bld) [#/Vol] Ordered By: Sheldon Xie on 04-01-2022 Monocytes (Bld) [#/Vol] 0.7 10*3/uL 0.0-0.8 [facility] Monocytes/100 WBC Auto (Bld) Ordered By: Sheldon Xie on 04-01-2022 Monocytes/100 WBC (Bld) 8.2 % . [facility] Neutrophils Auto (Bld) [#/Vo l]Ordered By: Sheldon Xie on 04-01-2022 Neutrophils (Bld) [#/Vol] 5.8 10*3/uL 1.8-7.7 [facility] Neutrophils/100 WBC Auto (Bl d)Ordered By: Sheldon Xie on 04-01-2022 Neutrophils/100 WBC (Bld) 69.2 % . [facility] No Panel InformationOrdered By: Sheldon Xie on 04-01-2022 Estimated GFR () > 60 mL/Min [facility] Comment on above: GFR estimated refere nce range: According to KDOQI guidelines, <60 ml/min/1.73m2 is sufficient to diagnose a patient with chronic kidney disease. Pharmacy Creatinine Clearance (Chem N/A [facility] Platelet mean volume Auto (B ld) [Entitic vol]Ordered By: Sheldon Xie on 04-01-2022 Platelet mean volume (Bld) [Entitic vol] 9.2 fL 6.3-10.7 [facility] Platelets Auto (Bld) [#/Vol] Ordered By: Sheldon Xie on 04-01-2022 Platelets (Bld) [#/Vol] 300 10*3/uL 150-450 [facility] Protein [Mass/volume] in Ser um or PlasmaOrdered By: Sheldon Xie on 04-01-2022 Protein [Mass/Vol] 6.8 g/dL 6.1-7.[address] [facility] RBC Auto (Bld) [#/Vol]Ordere d By: Sheldon Xie on 04-01-2022 RBC (Bld) [#/Vol] 4.33 10*6/uL 3.60-5.00 [facility] Serum or plasma alanine wilder otransferase measurement without P-5'-P (enzymatic activiOrdered By: Sheldon Xie on 04-01-2022 ALT No additional P-5'-P [Catalytic activity/Vol] 15 U/L 10-60 [facility] Serum or plasma albumin/glob ulin mass ratioOrdered By: Sheldon Xie on 04-01-2022 Albumin/Globulin [Mass ratio] 1.5 {ratio} [facility] Serum or plasma alkaline bailey sphatase measurement (enzymatic activity/volume)Ordered By: Sheldon Xie on 04-01-2022 ALP [Catalytic activity/Vol] 49 U/L 32-92 [facility] Serum or plasma aspartate am inotransferase measurement (enzymatic activity/volume)Ordered By: Sheldon Xie on 04-01-2022 AST [Catalytic activity/Vol] 22 U/L 10-42 [facility] Serum or plasma calcium prachi urement (mass/volume)Ordered By: Sheldon Xie on 04-01-2022 Calcium [Mass/Vol] 10.4 mg/dL 8.2-10.[address] [facility] Serum or plasma chloride darcy surement (moles/volume)Ordered By: Sheldon Xie on 04-01-2022 Chloride [Moles/Vol] 106 mmol/L 95-114 [facility] Serum or plasma glucose prachi urement (mass/volume)Ordered By: Sheldon Xie on 04-01-2022 Glucose [Mass/Vol] 92 mg/dL 70-[address] [facility] Comment on above: ADA recommended refe rence range Random Glucose Reference Range is dependent on time and content of last meal. Glucose of more than 200 mg/dL in a nonstressed, ambulatory subject supports the diagnosis of Diabetes Mellitus. ADA recommended refe rence rangeRandom Glucose Reference Range is dependent on time and content of last meal. Glucose of more than 200 mg/dL in a nonstressed, ambulatory subject supports the diagnosis of Diabetes Mellitus. Serum or plasma high density lipoprotein (HDL) cholesterol measurementOrdered By: Sheldon Xie on 04-01-2022 Cholesterol in HDL [Mass/Vol] 51 mg/dL 35-85 [facility] Comment on above: HDL CHOL ATP-III CLA SSIFICATION Cardiovascular Risk HDL > or equal to 60 mg/dL LOW HDL < 40 mg/dL HIGH HDL CHOL ATP-III CLA SSIFICATION Cardiovascular RiskHDL > or equal to 60 mg/dL LOWHDL < 40 mg/dL HIGH Serum or plasma potassium me asurement (moles/volume)Ordered By: Sheldon Xie on 04-01-2022 Potassium [Moles/Vol] 4.5 mmol/L 3.5-5.1 [facility] Serum or plasma sodium measu rement (moles/volume)Ordered By: Sheldon Xie on 04-01-2022 Sodium [Moles/Vol] 142 mmol/L 136-[address] [facility] Serum or plasma total biliru bin measurement (mass/volume)Ordered By: Sheldon Xie on 04-01-2022 Bilirubin [Mass/Vol] 0.6 mg/dL 0.3-1.2 [facility] Serum or plasma total carbon dioxide measurement (moles/volume)Ordered By: Sheldon Xie on 04-01-2022 CO2 [Moles/Vol] 27.2 mmol/L 22.0-30.0 [facility] Serum or plasma total choles terol/high density lipoprotein (HDL) cholesterol mass ratOrdered By: Sheldon Xie on 04-01-2022 Cholesterol.total/Renu sterol in HDL [Mass ratio] 3.4 {ratio} <5.0 [facility] Serum or plasma urea nitroge n measurement (mass/volume)Ordered By: Sheldon Xie on 04-01-2022 Urea nitrogen [Mass/Vol] 29 mg/dL 9-23 [facility] TSH DL <= 0.005 mIU/L QnOrde red By: Sheldon Xie on 04-01-2022 TSH Qn 2.53 m[IU]/L 0.45-5.33 [facility] Triglyceride [Mass/volume] i n Serum or PlasmaOrdered By: Sheldon Xie on 04-01-2022 Triglyceride [Mass/Vol] 71 mg/dL 35-149 [facility] Comment on above: TRIG ATP III CLASSIF ICATION TRIG less than 150 mg/dL Normal TRIG 150-199 mg/dL Borderline high TRIG 200-500 mg/dL High TRIG greater than 500 mg/dL Very high Standard traceable to the Center for Disease Conrtrol and Prevention (CDC) test method. TRIG ATP III CLASSIF ICATIONTRIG less than 150 mg/dL NormalTRIG 150-199 mg/dL Borderline highTRIG 200-500 mg/dL High TRIG greater than 500 mg/dL Very highStandard traceable to the Center for Disease Conrtrol and Prevention (CDC) test method. Creatinine and Glomerular fi ltration rate.predicted panel (S/P/Bld)Ordered By: Sheldon Xie on 02-09-2022 Creatinine [Mass/Vol] 0.64 mg/dL 0.44-1.03 [facility] Estimated glomerular filtrat ion rate (GFR) non- AmericanOrdered By: Sheldon Xie on 02-09-2022 GFR/1.73 sq M.predicted among non-blacks MDRD (S/P/Bld) [Vol rate/Area] > 60 mL/Min [facility] No Panel InformationOrdered By: Sheldon Xie on 02-09-2022 Estimated GFR () > 60 mL/Min [facility] Comment on above: GFR estimated refere nce range: According to KDOQI guidelines, <60 ml/min/1.73m2 is sufficient to diagnose a patient with chronic kidney disease. Pharmacy Creatinine Clearance (Chem N/A [facility] Serum or plasma calcium prachi urement (mass/volume)Ordered By: Sheldon iXe on 02-09-2022 Calcium [Mass/Vol] 10.0 mg/dL 8.2-10.[address] [facility] Serum or plasma chloride darcy surement (moles/volume)Ordered By: Sheldon Xie on 02-09-2022 Chloride [Moles/Vol] 103 mmol/L 95-114 [facility] Serum or plasma glucose prachi urement (mass/volume)Ordered By: Sheldon Xie on 02-09-2022 Glucose [Mass/Vol] 95 mg/dL 70-[address] [facility] Comment on above: ADA recommended refe rence range Random Glucose Reference Range is dependent on time and content of last meal. Glucose of more than 200 mg/dL in a nonstressed, ambulatory subject supports the diagnosis of Diabetes Mellitus. Serum or plasma potassium me asurement (moles/volume)Ordered By: Sheldon Xie on 02-09-2022 Potassium [Moles/Vol] 4.0 mmol/L 3.5-5.1 [facility] Serum or plasma sodium measu rement (moles/volume)Ordered By: Sheldon Xie on 02-09-2022 Sodium [Moles/Vol] 141 mmol/L 136-[address] [facility] Serum or plasma total carbon dioxide measurement (moles/volume)Ordered By: Sheldon Xie on 02-09-2022 CO2 [Moles/Vol] 26.5 mmol/L 22.0-30.0 [facility] Serum or plasma urea nitroge n measurement (mass/volume)Ordered By: Sheldon Xie on 02-09-2022 Urea nitrogen [Mass/Vol] 18 mg/dL 9-23 [facility] Office Visit (Cardiology)on 02-08-2022 Follow-up visit Diagnoses/Problems Assessed COPD (chronic obstructive pulmonary disease) (496) (J44.9) Hyperlipidemia (272.4) (E78.5) Benign essential hypertension (401.1) (I10) Dyspnea (786.09) (R06.00) Body mass index (BMI) of 21.0 to 21.9 in adult (V85.1) (Z68.21) Orders Edema Start: Torsemide 10 MG Oral Tablet; Take one tablet once daily Patient Instructions Please bring all medicines, vitamins, and herbal supplements with you when you come to the office. Prescriptions will not be filled unless you are compliant with your follow up appointments or have a follow up appointment scheduled as per instruction of your physician. Refills should be requested at the time of your visit. Fall prevention education given follow up in 1 year Chief Complaint ALEKSANDR SANCHEZ is being seen for an annual follow-up of. History of Present Illness Patient returns in follow-up of problems as noted. From a cardiac standpoint she is doing well. We discussed and reviewed previous evaluations and testing and she basically has no coronary disease or structural heart disease will cause her complaints of shortness of breath. We believe it to be on the basis of COPD. She comments that she has been checked for hypoxemia before with pulse oximetry but always at rest. Because of this we ambulated her in the [place] and her pulse oximetry went down to 86. Because of this I will correspond with primary care. Treatment of cardiac risk factors, though, appear satisfactory. Blood pressure and lipids are adequately controlled. The merits of a heart healthy diet were discussed as were those of modest exercise. Surgical History Problems History of Appendectomy History of Cataract surgery History of Complete colonoscopy [id number] History of Ear surgery History of Hysterectomy Current Meds Medication NameInstruction Aspirin EC 81 MG Oral Tablet Delayed ReleaseTAKE 1 TABLET DAILY. Calcium 500/Vitamin D TABSTake 1 tablet daily Carvedilol 6.25 MG Oral TabletTAKE 1 TABLET Twice daily Centrum Silver Oral TabletTAKE 1 TABLET DAILY. Ciprodex 0.3-0.1 % Otic SuspensionINSTILL 5 DROP Bedtime clonazePAM 0.5 MG Oral TabletTAKE 1 TABLET DAILY. Combigan 0.2-0.5 % Ophthalmic SolutionOne drop in each eye twice daily Eye Multivitamin/Lutein CAPSTAKE DIRECTED. Fluticasone Propionate 50 MCG/ACT Nasal SuspensionUSE DIRECTED. Latanoprost 0.005 % Ophthalmic SolutionINSTILL 1 DROP IN BOTH EYES AT BEDTIME. Lisinopril 10 MG Oral TabletTAKE 1 TABLET DAILY (DOSE CHANGED) Lotemax 0.5 % Ophthalmic GelUSE DIRECTED. NexIUM 24HR 20 MG Oral Tablet Delayed ReleaseTake 1 tablet daily Potassium Chloride ER 10 MEQ Oral Tablet Extended ReleaseTAKE 2 TABLETS DAILY. Pravastatin Sodium 40 MG Oral TabletTAKE 1 TABLET DAILY at bedtime Trelegy Ellipta 100-62.5-25 MCG/INH Inhalation Aerosol Powder Breath Activatedas directed Allergies Medication Codeine Derivatives Nausea; Updated By: Georgiana Escobar; 01/11/2022 11:03:51 AM Social History Problems Former smoker (V15.82) (Z87.891) Quit Smoking 1998 - smoked 1 PPD No illicit drug use Occasional caffeine consumption Social alcohol use (V49.89) (Z78.9) Review of Systems Constitutional: not feeling tired. Eyes: no eyesight problems. ENT: no hearing loss and no nosebleeds. Cardiovascular: no intermittent leg claudication and as noted in HPI. Respiratory: no chronic cough and no shortness of breath. Gastrointestinal: no change in bowel habits and no blood in stools. Genitourinary: no urinary frequency. Skin: no skin rashes. Neurological: no seizures and no frequent falls. Psychiatric: no depression and not suicidal. All other systems have been reviewed and are negative for complaint. Vitals Vital Signs Recorded: 08Feb2022 11:19AM Heart Rate78, R Radial [id number], LUE, Sitting [id number], LUE, Sitting Height5 ft 2 in [id number] lb BMI Fgzgjyhimx46.03 kg/m2 BSA Calculated1.51 Tobacco Useb) No PHQ-2 #1. Over the last 2 weeks have you felt down, depressed or hopeless? (If yes, answer PHQ-9 below)No PHQ-2 #2. Over the last 2 weeks have you felt little interest or pleasure in doing things? (If yes, answer PHQ-9 below)No Fall Screeningb) One or more falls in the last year ambulatory pulse ox )2 sat 96-98% baseline, 89-90 % with ambulating 150ft per Cassie RN, BSN Physical Exam Constitutional: alert and in no acute distress. Eyes: no erythema, swelling or discharge from the eye . Neck: neck is supple, symmetric, trachea midline, no masses and no thyromegaly . Pulmonary: no increased work of breathing or signs of respiratory distress and lungs clear to auscultation. Cardiovascular: carotid pulses 2+ bilaterally with no bruit , JVP was normal, no thrills , regular rhythm, normal S1 and S2, no murmurs , pedal pulses 2+ bilaterally and no edema . Abdomen: abdomen non-tender, no masses and no hepatomegaly . Skin: skin warm and dry, normal skin turgor . Psychiatric willy (more content not included)... Normal [employer] Tobacco Screening.on 022 Adult depression screening assessment No [facility] [employer] 250 DO Work Phone: Fall risk assessment b) One or more fall s in the last year [facility] [employer] 250 DO Work Phone: Tobacco use status [facility] b) No [facility] [employer] 250 DO Work Phone: Vital Signs Date Time Vital Sign Value Performing Clinician Faci lity 12-24-2024 14:34-0400 Body height 157.48 cm Sheldon Kuns DO Work Phone: [facility] 12-24-2024 14:34-0400 Body mass index (BMI) [Ratio] 17.7 kg/m2 Sheldon Kuns DO Work Phone: [facility] 12-24-2024 14:34-0400 Body weight 43.99 kg Sheldon Kuns DO Work Phone: [facility] 12-24-2024 14:34-0400 Diastolic blood pressure 60 mm[Hg] Sheldon Kuns DO Work Phone: [facility] 12-24-2024 14:34-0400 Heart rate 60 /min Sheldon Kuns DO Work Phone: [facility] 12-24-2024 14:34-0400 Respiratory rate 16 /min Sheldon Kuns DO Work Phone: [facility] 12-24-2024 14:34-0400 SaO2% (BldA) [Mass fraction] 97 % Sheldon Kuns DO Work Phone: [facility] 12-24-2024 14:34-0400 Systolic blood pressure 126 mm[Hg] Sheldon Kuns DO Work Phone: [facility] 09-19-2024 12:39-0500 Body height 157.48 cm [facility] 09-19-2024 12:39-0500 Body mass index (BMI) [Ratio] 17.4 kg/m2 [facility] 09-19-2024 12:39-0500 Body weight 43.09 kg [facility] 09-19-2024 12:39-0500 Diastolic blood pressure 62 mm[Hg] [facility] 09-19-2024 12:39-0500 Heart rate 65 /min [facility] 09-19-2024 12:39-0500 Respiratory rate 16 /min [facility] 09-19-2024 12:39-0500 SaO2% (BldA) [Mass fraction] 89 % [facility] 09-19-2024 12:39-0500 Systolic blood pressure 110 mm[Hg] [facility] 07-09-2024 15:00-0500 Body height 157.48 cm Sheldon Kuns DO Work Phone: [facility] 07-09-2024 15:00-0500 Body mass index (BMI) [Ratio] 18.6 kg/m2 Sheldon Kuns DO Work Phone: [facility] 07-09-2024 15:00-0500 Body weight 46.26 kg Sheldon Kuns DO Work Phone: [facility] 07-09-2024 15:00-0500 Diastolic blood pressure 74 mm[Hg] Sheldon Kuns DO Work Phone: [facility] 07-09-2024 15:00-0500 Heart rate 70 /min Sheldon Kuns DO Work Phone: [facility] 07-09-2024 15:00-0500 Respiratory rate 20 /min Sheldon Kuns DO Work Phone: [facility] 07-09-2024 15:00-0500 SaO2% (BldA) [Mass fraction] 92 % Sheldon Kuns DO Work Phone: [facility] 07-09-2024 15:00-0500 Systolic blood pressure 122 mm[Hg] Sheldon Kuns DO Work Phone: [facility] 06-18-2024 12:33-0400 Body height 157.48 cm DO Sheldon Kuns Work Phone: [facility] 06-18-2024 12:33-0400 Body mass index (BMI) [Ratio] 19 kg/m2 DO Sheldon Kuns Work Phone: [facility] 06-18-2024 12:33-0400 Body weight 47.17 kg DO Sheldon Kuns Work Phone: [facility] 06-18-2024 12:33-0400 Diastolic blood pressure 70 mm[Hg] DO Sheldon Kuns Work Phone: [facility] 06-18-2024 12:33-0400 Heart rate 75 /min DO Sheldon Kuns Work Phone: [facility] 06-18-2024 12:33-0400 Respiratory rate 16 /min DO Sheldon Kuns Work Phone: [facility] 06-18-2024 12:33-0400 SaO2% (BldA) [Mass fraction] 92 % DO Sheldon Kuns Work Phone: [facility] 06-18-2024 12:33-0400 Systolic blood pressure 128 mm[Hg] DO Sheldon Kuns Work Phone: [facility] 05-16-2024 08:40-0400 Body height 157.48 cm DO Sheldon Kuns Work Phone: [facility] 05-16-2024 08:40-0400 Body mass index (BMI) [Ratio] 19.3 kg/m2 DO Sheldon Kuns Work Phone: [facility] 05-16-2024 08:40-0400 Body weight 48.08 kg DO Sheldon Kuns Work Phone: [facility] 05-16-2024 08:40-0400 Diastolic blood pressure 75 mm[Hg] DO Sheldon Kuns Work Phone: [facility] 05-16-2024 08:40-0400 Heart rate 88 /min DO Sheldon Kuns Work Phone: [facility] 05-16-2024 08:40-0400 Respiratory rate 18 /min DO Sheldon Kuns Work Phone: [facility] 05-16-2024 08:40-0400 SaO2% (BldA) [Mass fraction] 97 % DO Sheldon Kuns Work Phone: [facility] 05-16-2024 08:40-0400 Systolic blood pressure 145 mm[Hg] DO Sheldon Kuns Work Phone: [facility] 03-19-2024 14:00-0400 Body height 157.48 cm DO Sheldon Kuns Work Phone: [facility] 03-19-2024 14:00-0400 Body mass index (BMI) [Ratio] 19.9 kg/m2 DO Sheldon Kuns Work Phone: [facility] 03-19-2024 14:00-0400 Body weight 49.44 kg DO Sheldon Kuns Work Phone: [facility] 03-19-2024 14:00-0400 Diastolic blood pressure 60 mm[Hg] DO Sheldon Kuns Work Phone: [facility] 03-19-2024 14:00-0400 Heart rate 68 /min DO Sheldon Kuns Work Phone: [facility] 03-19-2024 14:00-0400 Respiratory rate 18 /min DO Sheldon Kuns Work Phone: [facility] 03-19-2024 14:00-0400 SaO2% (BldA) [Mass fraction] 91 % DO Sheldon Kuns Work Phone: [facility] 03-19-2024 14:00-0400 Systolic blood pressure 138 mm[Hg] DO Sheldon Kuns Work Phone: [facility] 02-09-2024 13:16-0400 Body height 157.5 cm Ronnie Colvin MD Work Phone: [facility] 02-09-2024 13:16-0400 Body mass index (BMI) [Ratio] 19.94 kg/m2 Ronnie Colvin MD Work Phone: [facility] 02-09-2024 13:16-0400 Body weight 49.44 kg Ronnie Colvin MD Work Phone: [facility] 02-09-2024 13:16-0400 Diastolic blood pressure 58 mm[Hg] Ronnie Colvin MD Work Phone: [facility] 02-09-2024 13:16-0400 Heart rate 68 /min Ronnie Colvin MD Work Phone: [facility] 02-09-2024 13:16-0400 Systolic blood pressure 100 mm[Hg] Ronnie Colvin MD Work Phone: [facility] 01-29-2024 10:35-0400 Diastolic blood pressure 60 mm[Hg] DO Sheldon Kuns Work Phone: [facility] 01-29-2024 10:35-0400 Heart rate 76 /min DO Sheldon Kuns Work Phone: [facility] 01-29-2024 10:35-0400 Respiratory rate 16 /min DO Sheldon Kuns Work Phone: [facility] 01-29-2024 10:35-0400 SaO2% (BldA) [Mass fraction] 91 % DO Sheldon Kuns Work Phone: [facility] 01-29-2024 10:35-0400 Systolic blood pressure 105 mm[Hg] DO Sheldon Kuns Work Phone: [facility] 01-09-2024 15:02-0400 Body height 157.48 cm DO Sheldon Kuns Work Phone: [facility] 01-09-2024 15:02-0400 Body mass index (BMI) [Ratio] 20.2 kg/m2 DO Sheldon Kuns Work Phone: [facility] 01-09-2024 15:02-0400 Body temperature 97.2 [degF] DO Sheldon Kuns Work Phone: [facility] 01-09-2024 15:02-0400 Body weight 50.34 kg DO Sheldon Kuns Work Phone: [facility] 01-09-2024 15:02-0400 Diastolic blood pressure 71 mm[Hg] DO Sheldon Kuns Work Phone: [facility] 01-09-2024 15:02-0400 Heart rate 72 /min DO Sheldon Kuns Work Phone: [facility] 01-09-2024 15:02-0400 Respiratory rate 20 /min DO Sheldon Kuns Work Phone: [facility] 01-09-2024 15:02-0400 SaO2% (BldA) [Mass fraction] 93 % DO Sheldon Kuns Work Phone: [facility] 01-09-2024 15:02-0400 Systolic blood pressure 145 mm[Hg] DO Sheldon Kuns Work Phone: [facility] 12-14-2023 12:32-0400 Body height 157.48 cm DO Sheldon Kuns Work Phone: [facility] 12-14-2023 12:32-0400 Body mass index (BMI) [Ratio] 19.3 kg/m2 DO Sheldon Kuns Work Phone: [facility] 12-14-2023 12:32-0400 Body weight 48.08 kg DO Sheldon Kuns Work Phone: [facility] 12-14-2023 12:32-0400 Diastolic blood pressure 60 mm[Hg] DO Sheldon Kuns Work Phone: [facility] 12-14-2023 12:32-0400 Heart rate 70 /min DO Sheldon Kuns Work Phone: [facility] 12-14-2023 12:32-0400 SaO2% (BldA) [Mass fraction] 96 % DO Sheldon Kuns Work Phone: [facility] 12-14-2023 12:32-0400 Systolic blood pressure 114 mm[Hg] DO Sheldon Kuns Work Phone: [facility] 11-15-2023 12:49-0400 Body height 157.48 cm DO Sheldon Kuns Work Phone: [facility] 11-15-2023 12:49-0400 Body mass index (BMI) [Ratio] 19.9 kg/m2 DO Sheldon Kuns Work Phone: [facility] 11-15-2023 12:49-0400 Body weight 49.44 kg DO Sheldon Kuns Work Phone: [facility] 11-15-2023 12:49-0400 Diastolic blood pressure 66 mm[Hg] DO Sheldon Kuns Work Phone: [facility] 11-15-2023 12:49-0400 Heart rate 79 /min DO Sheldon Kuns Work Phone: [facility] 11-15-2023 12:49-0400 Respiratory rate 20 /min DO Sheldon Kuns Work Phone: [facility] 11-15-2023 12:49-0400 SaO2% (BldA) [Mass fraction] 89 % DO Sheldon Kuns Work Phone: [facility] 11-15-2023 12:49-0400 Systolic blood pressure 128 mm[Hg] DO Sheldon Kuns Work Phone: [facility] 10-17-2023 14:58-0500 Body height 157.48 cm DO Sheldon Kuns Work Phone: [facility] 10-17-2023 14:58-0500 Body mass index (BMI) [Ratio] 19.3 kg/m2 DO Sheldon Kuns Work Phone: [facility] 10-17-2023 14:58-0500 Body temperature 98 [degF] DO Sheldon Kuns Work Phone: [facility] 10-17-2023 14:58-0500 Body weight 48.08 kg DO Sheldon Kuns Work Phone: [facility] 10-17-2023 14:58-0500 Diastolic blood pressure 74 mm[Hg] DO Sheldon Kuns Work Phone: [facility] 10-17-2023 14:58-0500 Heart rate 87 /min DO Sheldon Kuns Work Phone: [facility] 10-17-2023 14:58-0500 Respiratory rate 2 /min DO Sheldon Kuns Work Phone: [facility] 10-17-2023 14:58-0500 SaO2% (BldA) [Mass fraction] 95 % DO Sheldon Kuns Work Phone: [facility] 10-17-2023 14:58-0500 Systolic blood pressure 134 mm[Hg] DO Sheldon Kuns Work Phone: [facility] 08-09-2023 10:00-0500 Body height 157.48 cm rDe Looney Other [facility] 08-09-2023 10:00-0500 Body mass index (BMI) [Ratio] 19.57 kg/m2 Dre Looney Other [facility] Other 08-09-2023 10:00-0500 Body temperature 96.6 [degF] Dre Looney Other [employer] [facility] Other 08-09-2023 10:00-0500 Body weight 48.54 kg Dre Looney Other [facility] Other 08-09-2023 10:00-0500 Body weight 48.53 kg DO Sheldon Cornices Work Phone: [facility] 08-09-2023 10:00-0500 Diastolic blood pressure 61 mm[Hg] Christdave Yoondano Other [facility] 08-09-2023 10:00-0500 Respiratory rate 20 /min Javeddave Dickersonno Other [employer] Other 08-09-2023 10:00-0500 SaO2% (BldA) [Mass fraction] 97 % Javeddave Dickersonno Other [employer] Other 08-09-2023 10:00-0500 Systolic blood pressure 113 mm[Hg] Javeddave Yoondano Other [facility] 07-04-2023 10:30-0500 Body height 157.48 cm Sheldon Kims Other [employer] Other 07-04-2023 10:30-0500 Body mass index (BMI) [Ratio] 20.12 kg/m2 Sheldon Kuns Other [employer] Other 07-04-2023 10:30-0500 Body weight 49.9 kg Sheldon Kuns Other [employer] Other 07-04-2023 10:30-0500 Diastolic blood pressure 70 mm[Hg] Sheldon Kuns Other [employer] Other 07-04-2023 10:30-0500 Respiratory rate 18 /min Sheldon Kuns Other [employer] Other 07-04-2023 10:30-0500 SaO2% (BldA) [Mass fraction] 95 % Sheldon Kuns Other [employer] Other 07-04-2023 10:30-0500 Systolic blood pressure 130 mm[Hg] Sheldon Kuns Other [employer] Other 05-30-2023 12:30-0400 Body height 157.48 cm Sheldon Kuns Other [employer] Other 05-30-2023 12:30-0400 Body mass index (BMI) [Ratio] 19.82 kg/m2 Sheldon Kuns Other [employer] Other 05-30-2023 12:30-0400 Body weight 49.17 kg Sheldon Kuns Other [employer] Other 05-30-2023 12:30-0400 Diastolic blood pressure 66 mm[Hg] Sheldon Kuns Other [facility] Other 05-30-2023 12:30-0400 Respiratory rate 18 /min Sheldon Kuns Other [facility] Other 05-30-2023 12:30-0400 SaO2% (BldA) [Mass fraction] 94 % Sheldon Kuns Other [facility] Other 05-30-2023 12:30-0400 Systolic blood pressure 128 mm[Hg] Sheldon Kuns Other [facility] Other 11-29-2022 13:30-0400 Body height 157.48 cm Sheldon Kuns Other [facility] Other 11-29-2022 13:30-0400 Body mass index (BMI) [Ratio] 18.36 kg/m2 Sheldon Kuns Other [facility] Other 11-29-2022 13:30-0400 Body weight 45.54 kg Sheldon Kuns Other [facility] Other 11-29-2022 13:30-0400 Diastolic blood pressure 58 mm[Hg] Sheldon Kuns Other [facility] Other 11-29-2022 13:30-0400 Respiratory rate 16 /min Sheldon Kuns Other [facility] Other 11-29-2022 13:30-0400 SaO2% (BldA) [Mass fraction] 93 % Sheldon Kuns Other [facility] Other 11-29-2022 13:30-0400 Systolic blood pressure 121 mm[Hg] Sheldon Kuns Other [facility] Other 09-29-2022 13:30-0500 Body height 157.48 cm Sheldon Kuns Other [employer] Other 09-29-2022 13:30-0500 Body mass index (BMI) [Ratio] 18.65 kg/m2 Sheldon Kuns Other [facility] Other 09-29-2022 13:30-0500 Body weight 46.27 kg Sheldon Kuns Other [facility] Other 09-29-2022 13:30-0500 Diastolic blood pressure 64 mm[Hg] Sheldon Kuns Other [facility] Other 09-29-2022 13:30-0500 Respiratory rate 16 /min Sheldon Kuns Other [facility] Other 09-29-2022 13:30-0500 SaO2% (BldA) [Mass fraction] 88 % Sheldon Kuns Other [facility] Other 09-29-2022 13:30-0500 Systolic blood pressure 132 mm[Hg] Sheldon Kuns Other [facility] Other 09-01-2022 13:30-0500 Body height 157.48 cm Sheldon Kuns Other [facility] Other 09-01-2022 13:30-0500 Body mass index (BMI) [Ratio] 18.84 kg/m2 Sheldon Kuns Other [facility] Other 09-01-2022 13:30-0500 Body weight 46.72 kg Sheldon Kuns Other [facility] Other 09-01-2022 13:30-0500 Diastolic blood pressure 64 mm[Hg] Sheldon Kuns Other [facility] Other 09-01-2022 13:30-0500 Respiratory rate 16 /min Sheldon Kuns Other [facility] Other 09-01-2022 13:30-0500 SaO2% (BldA) [Mass fraction] 98 % Sheldon Kuns Other [facility] Other 09-01-2022 13:30-0500 Systolic blood pressure 104 mm[Hg] Sheldon Kuns Other [facility] Other 06-23-2022 13:30-0400 Body height 157.48 cm Sheldon Kuns Other [facility] Other 06-23-2022 13:30-0400 Body mass index (BMI) [Ratio] 19.57 kg/m2 Sheldon Kuns Other [facility] Other 06-23-2022 13:30-0400 Body weight 48.54 kg Sheldon Kuns Other [facility] Other 06-23-2022 13:30-0400 Diastolic blood pressure 60 mm[Hg] Sheldon Kuns Other [facility] Other 06-23-2022 13:30-0400 Respiratory rate 16 /min Sheldon Kuns Other [facility] Other 06-23-2022 13:30-0400 SaO2% (BldA) [Mass fraction] 98 % Sheldon Kuns Other [facility] Other 06-23-2022 13:30-0400 Systolic blood pressure 134 mm[Hg] Sheldon Kuns Other [facility] Other 05-24-2022 13:30-0400 Body height 157.48 cm Sheldon Kuns Other [facility] Other 05-24-2022 13:30-0400 Body mass index (BMI) [Ratio] 19.75 kg/m2 Sheldon Kuns Other [facility] Other 05-24-2022 13:30-0400 Body weight 48.99 kg Sheldon Kuns Other [facility] Other 05-24-2022 13:30-0400 Diastolic blood pressure 62 mm[Hg] Sheldon Kuns Other [facility] Other 05-24-2022 13:30-0400 Respiratory rate 16 /min Sheldon Kims Other [facility] Other 05-24-2022 13:30-0400 SaO2% (BldA) [Mass fraction] 98 % Sheldonnicola Alvess Other [employer] Other 05-24-2022 13:30-0400 Systolic blood pressure 122 mm[Hg] Sheldon Kuns Other [facility] Other 04-18-2022 12:55-0400 Body temperature 97.3 [degF] DO Sheldon Kuns Work Phone: [facility] 04-18-2022 12:55-0400 Diastolic blood pressure 62 mm[Hg] DO Sheldon Kuns Work Phone: [facility] 04-18-2022 12:55-0400 Heart rate 73 /min DO Sheldon Kuns Work Phone: [facility] 04-18-2022 12:55-0400 Respiratory rate 18 /min DO Sheldon Kuns Work Phone: [facility] 04-18-2022 12:55-0400 SaO2% (BldA) [Mass fraction] 95 % DO Sheldon Kuns Work Phone: [facility] 04-18-2022 12:55-0400 Systolic blood pressure 128 mm[Hg] DO Sheldon Kuns Work Phone: [facility] 03-22-2022 13:30-0400 Body height 157.48 cm Sheldonnicola Alvess Other [facility] Other 03-22-2022 13:30-0400 Body mass index (BMI) [Ratio] 20.48 kg/m2 Sheldonnicola Alvess Other [facility] Other 03-22-2022 13:30-0400 Body weight 50.8 kg Sheldonnicola Alvess Other [facility] Other 03-22-2022 13:30-0400 Diastolic blood pressure 70 mm[Hg] Sheldonnicola Alvess Other [facility] Other 03-22-2022 13:30-0400 Respiratory rate 16 /min Sheldonnicola Xie Other [facility] Other 03-22-2022 13:30-0400 SaO2% (BldA) [Mass fraction] 96 % Sheldonnicola Xie Other [facility] Other 03-22-2022 13:30-0400 Systolic blood pressure 130 mm[Hg] Sheldonnicola Alvess Other [employer] Other 02-08-2022 11:19-0400 Body height 157.48 cm Sheldon Yakov Alvess Work Phone: [employer] 250 DO Work Phone: 02-08-2022 11:19-0400 Body mass index (BMI) [Ratio] 21.03 kg/m2 Sheldon R Kims Work Phone: [employer] 250 DO Work Phone: 02-08-2022 11:19-0400 Body surface area Derived from formula 1.51 m2 Sheldon R Kuns Work Phone: [facility] [employer] 250 DO Work Phone: 02-08-2022 11:19-0400 Body weight 52.16 kg Sheldon R Kuns Work Phone: [facility] [employer] 250 DO Work Phone: 02-08-2022 11:19-0400 Diastolic blood pressure 70 mm[Hg] Sheldon R Kuns Work Phone: [facility] [employer] 250 DO Work Phone: 02-08-2022 11:19-0400 Heart rate 78 /min Sheldon R Kuns Work Phone: [facility] [employer] 250 DO Work Phone: 02-08-2022 11:19-0400 Systolic blood pressure 142 mm[Hg] Sheldon R Kuns Work Phone: [facility] [employer] 250 DO Work Phone: 12-21-2021 14:00-0400 Body height 157.48 cm Sheldon Cornices Other [employer] Other 12-21-2021 14:00-0400 Body mass index (BMI) [Ratio] 20.67 kg/m2 Sheldon Cornices Other [employer] Other 12-21-2021 14:00-0400 Body weight 51.26 kg Sheldon Kuns Other [employer] Other 12-21-2021 14:00-0400 Diastolic blood pressure 74 mm[Hg] Sheldon Kuns Other [employer] Other 12-21-2021 14:00-0400 Respiratory rate 16 /min Sheldon Cornices Other [employer] Other 12-21-2021 14:00-0400 SaO2% (BldA) [Mass fraction] 94 % Sheldon Cornices Other [employer] Other 12-21-2021 14:00-0400 Systolic blood pressure 138 mm[Hg] Sheldon Kuns Other [employer] Other 12-02-2021 14:30-0400 Body height 157.48 cm Sheldon Kuns Other [employer] Other 12-02-2021 14:30-0400 Body mass index (BMI) [Ratio] 20.67 kg/m2 Sheldon Kuns Other [employer] Other 12-02-2021 14:30-0400 Body weight 51.26 kg Sheldon Kuns Other [employer] Other 12-02-2021 14:30-0400 Diastolic blood pressure 80 mm[Hg] Sheldon Kuns Other [employer] Other 12-02-2021 14:30-0400 Respiratory rate 18 /min Sheldon Kuns Other [employer] Other 12-02-2021 14:30-0400 SaO2% (BldA) [Mass fraction] 95 % Sheldon Kuns Other [employer] Other 12-02-2021 14:30-0400 Systolic blood pressure 152 mm[Hg] Sheldon Kuns Other [employer] Other 11-24-2021 13:30-0400 Body height 157.48 cm Sheldon Kuns Other [employer] Other 11-24-2021 13:30-0400 Body mass index (BMI) [Ratio] 20.67 kg/m2 Sheldon Kuns Other [employer] Other 11-24-2021 13:30-0400 Body weight 51.26 kg Sheldon Xie Other [employer] Other 11-24-2021 13:30-0400 Diastolic blood pressure 70 mm[Hg] Sheldonnicola Alvess Other [employer] Other 11-24-2021 13:30-0400 Respiratory rate 16 /min Sheldon Alvess Other [employer] Other 11-24-2021 13:30-0400 SaO2% (BldA) [Mass fraction] 93 % Sheldonnicola Alvess Other [employer] Other 11-24-2021 13:30-0400 Systolic blood pressure 134 mm[Hg] Sheldon Alvess Other [employer] Other 06-10-2021 12:30-0400 Body height 157.48 cm Alireza Olvera Other [employer] Other 06-10-2021 12:30-0400 Body mass index (BMI) [Ratio] 20.3 kg/m2 Alireza Olvera Other [employer] Other 06-10-2021 12:30-0400 Body weight 50.35 kg Alireza Olvera Other [employer] Other 06-10-2021 12:30-0400 Diastolic blood pressure 78 mm[Hg] Alireza Olvera Other [employer] Other 06-10-2021 12:30-0400 Respiratory rate 18 /min Alireza Olvera Other [employer] Other 06-10-2021 12:30-0400 SaO2% (BldA) [Mass fraction] 97 % Alireza Olvera Other [employer] Other 06-10-2021 12:30-0400 Systolic blood pressure 128 mm[Hg] Alireza Olvera Other [employer] Other Encounters Encounter Date Encounter Type Care Provider Facility Start: 02-06-2025 ambulatory ARTEM DEL RIO [facility] Start: 01-01-2025 End: 01-01-2025 Patient encounter procedure [facility] Comment on above: 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) Start: 01-01-2025 End: 01-01-2025 ambulatory TAMMY MELGAR Not Available Start: 12-24-2024 End: 12-24-2024 ambulatory Sheldon Kims DO Work Phone: [facility] Work Phone: Start: 12-24-2024 End: 12-24-2024 Patient encounter procedure Sheldon Kuns DO Work Phone: [facility] Work Phone: Start: 12-04-2024 End: 12-04-2024 Patient encounter procedure [facility] Comment on above: 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) Start: 12-04-2024 End: 12-04-2024 ambulatory TAMMY MELGAR Not Available Start: 11-14-2024 End: 11-14-2024 Patient encounter procedure Sheldon Kuns DO Work Phone: [facility] Work Phone: Start: 11-14-2024 End: 11-14-2024 ambulatory Sheldon Kuns DO Work Phone: [facility] Work Phone: Start: 11-13-2024 End: 11-13-2024 ambulatory TAMMY MELGAR Not Available Start: 09-20-2024 End: 09-20-2024 Bamboo flowsheet Tammy Melgar AUD Work Phone: [facility] Start: 09-20-2024 End: 09-20-2024 Bamboo flowsheet Tammy Melgar AUD Work Phone: [facility] Start: 09-20-2024 End: 09-20-2024 Telephone encounter Tammy Melgar AUD Work Phone: [facility] Start: 09-20-2024 End: 09-20-2024 Patient encounter procedure Tammy Melgar AUD Work Phone: [facility] Comment on above: 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) Start: 09-20-2024 End: 09-20-2024 ambulatory TAMMY MELGAR Not Available Start: 09-19-2024 End: 09-19-2024 ambulatory [facility] Work Phone: Start: 09-19-2024 End: 09-19-2024 Patient encounter procedure [facility] [place] Work Phone: Start: 07-09-2024 End: 07-09-2024 ambulatory Sheldon Kuns DO Work Phone: [facility] Work Phone: Start: 07-09-2024 End: 07-09-2024 Patient encounter procedure Sheldon Kuns DO Work Phone: [facility] Pulmonary Disease Work Phone: Start: 07-08-2024 Non-patient / Non-visit Sheldon Kuns DO Work Phone: [facility] Work Phone: Start: 06-18-2024 End: 06-18-2024 Patient encounter procedure DO Sheldon Kuns Work Phone: [facility] Start: 06-18-2024 End: 06-18-2024 ambulatory DO Sheldon Kuns Work Phone: [facility] Work Phone: Start: 06-18-2024 End: 06-18-2024 ambulatory DO Sheldon Kuns Work Phone: [facility] Work Phone: Start: 06-18-2024 End: 06-18-2024 Patient encounter procedure DO Sheldon Kuns Work Phone: [facility] Work Phone: Start: 06-06-2024 End: 06-06-2024 ambulatory DO Sheldon Kuns Work Phone: [facility] Work Phone: Start: 06-06-2024 End: 06-06-2024 Patient encounter procedure DO Sheldon Kuns Work Phone: [facility] Orthopedics Work Phone: Start: 05-16-2024 End: 05-16-2024 Patient encounter procedure DO Sheldon Kuns Work Phone: [facility] Start: 05-16-2024 End: 05-16-2024 ambulatory DO Sheldon Kuns Work Phone: [facility] Work Phone: Start: 05-16-2024 End: 05-16-2024 ambulatory DO Sheldon Kuns Work Phone: [facility] Work Phone: Start: 05-16-2024 End: 05-16-2024 Patient encounter procedure DO Sheldon Kuns Work Phone: [facility] [place] Work Phone: Start: 05-15-2024 End: 05-15-2024 Patient encounter procedure DO Sheldon Kuns Work Phone: [facility]-Lab [place] Work Phone: Start: 05-15-2024 End: 05-15-2024 ambulatory DO Sheldon Kuns Work Phone: [facility] Work Phone: Start: 03-19-2024 End: 03-19-2024 ambulatory DO Sheldon Kuns Work Phone: [facility] Work Phone: Start: 03-19-2024 End: 03-19-2024 Patient encounter procedure DO Sheldon Kuns Work Phone: [facility] [place] Work Phone: Start: 03-04-2024 End: 03-04-2024 ambulatory DO Sheldon Kuns Work Phone: [facility] Work Phone: Start: 03-04-2024 End: 03-04-2024 Discharged Recurring DO Sheldon Kuns Work Phone: [facility] [place] Work Phone: Start: 02-09-2024 End: 02-09-2024 Office outpatient visit 25 minutes Ronnie Colvin MD Work Phone: [facility] Comment on above: Benign essential hyp ertension (Primary Dx); Paroxysmal supraventricular tachycardia (CMS-HCC); Mixed hyperlipidemia; Former cigarette smoker Start: 02-09-2024 End: 02-09-2024 ambulatory RONNIE COLVIN [facility] Ambulatory Start: 01-29-2024 End: 01-29-2024 ambulatory DO Sheldon Kuns Work Phone: [facility] Work Phone: Start: 01-29-2024 End: 01-29-2024 Patient encounter procedure DO Sheldon Kuns Work Phone: [facility] [place] Work Phone: Start: 01-25-2024 Registered Recurring DO Sheldon Kuns Work Phone: [facility] [place] Work Phone: Start: 01-09-2024 End: 01-09-2024 Patient encounter procedure DO Sheldon Kuns Work Phone: [facility] Pulmonary Disease Work Phone: Start: 12-20-2023 Non-patient / Non-visit DO Mandy tt Kuns Work Phone: [facility] Work Phone: Start: 12-14-2023 End: 12-14-2023 ambulatory DO Sheldon Kuns Work Phone: [facility] Work Phone: Start: 12-14-2023 End: 12-14-2023 Patient encounter procedure DO Sheldon Kuns Work Phone: [facility] [place] Work Phone: Start: 12-06-2023 Non-patient / Non-visit DO Mandy tt Kuns Work Phone: [facility] Pulmonary Disease Work Phone: Start: 12-05-2023 End: 12-05-2023 Patient encounter procedure DO Sheldon Kuns Work Phone: [facility] Lab Work Phone: Start: 12-05-2023 End: 12-05-2023 ambulatory DO Sheldon Kuns Work Phone: [facility] Work Phone: Start: 11-20-2023 End: 11-20-2023 Patient encounter procedure DO Sheldon Kuns Work Phone: [facility] Start: 11-20-2023 End: 11-20-2023 ambulatory DO Sheldon Kuns Work Phone: [facility] Work Phone: Start: 11-16-2023 End: 11-16-2023 ambulatory DO Sheldon Kuns Work Phone: [facility] Work Phone: Start: 11-16-2023 End: 11-16-2023 Patient encounter procedure DO Sheldon Kuns Work Phone: [facility] Work Phone: Start: 11-15-2023 End: 11-15-2023 ambulatory DO Sheldon Kuns Work Phone: [facility] Work Phone: Start: 11-15-2023 End: 11-15-2023 Patient encounter procedure DO Sheldon Kuns Work Phone: [facility] [place] Work Phone: Start: 11-06-2023 Non-patient / Non-visit DO Mandy tt Kuns Work Phone: [facility] Work Phone: Start: 10-17-2023 End: 10-17-2023 ambulatory DO Sheldon Kuns Work Phone: [facility] Work Phone: Start: 10-17-2023 End: 10-17-2023 Patient encounter procedure DO Sheldon Kuns Work Phone: [facility] Pulmonary Disease Work Phone: Start: 10-10-2023 End: 10-10-2023 ambulatory DO Sheldon Kuns Work Phone: [facility] Work Phone: Start: 10-10-2023 End: 10-10-2023 Patient encounter procedure DO Sheldon Kuns Work Phone: [facility]Ray [facility] Start: 10-05-2023 Non-patient / Non-visit DO Mandy tt Kuns Work Phone: [facility] [employer] Work Phone: Start: 09-26-2023 End: 09-26-2023 ambulatory DO Sheldon Kuns Work Phone: [facility] Work Phone: Start: 09-26-2023 End: 09-26-2023 Patient encounter procedure DO Sheldon Kuns Work Phone: [facility]Lab [place] Work Phone: Start: 09-13-2023 End: 09-13-2023 ambulatory Sheldon Kuns Other [facility] Other Start: 09-13-2023 Telephone encounter Sheldon Kuns [facility] Start: 09-01-2023 End: 09-01-2023 Patient encounter procedure DO Sheldon Kuns Work Phone: [facility]-Electrodiagnostic s Work Phone: Start: 08-30-2023 End: 09-28-2023 ambulatory SHELDON R KIMS [facility] Start: 08-09-2023 End: 08-09-2023 ambulatory Dre Looney Other [facility] Other Start: 08-09-2023 Office outpatient ne w 45 minutes Dre Looney [facility] Start: 08-09-2023 End: 08-09-2023 Patient encounter procedure DO Sheldon Kuns Work Phone: [facility] Work Phone: Start: 08-07-2023 End: 08-07-2023 Patient encounter procedure DO Sheldon Kuns Work Phone: [facility]-Respiratory Therapy Work Phone: Start: 07-04-2023 End: 07-04-2023 ambulatory Sheldon Kuns Other [employer] Other Start: 07-04-2023 Office outpatient vi sit 25 minutes Sheldon Kuns [facility] [place] Start: 07-04-2023 End: 07-04-2023 Patient encounter procedure DO Sheldon Kuns Work Phone: [facility] [place] Work Phone: Start: 05-30-2023 End: 05-30-2023 ambulatory Sheldon Kuns Other [employer] Other Start: 05-30-2023 Office outpatient vi sit 25 minutes Sheldon Kuns [facility] [place] Start: 05-30-2023 Telephone encounter Sheldon Kuns [facility] [place] Start: 05-24-2023 End: 05-24-2023 ambulatory DO Sheldon Kuns Work Phone: [facility] Work Phone: Start: 05-24-2023 End: 05-24-2023 Patient encounter procedure DO Sheldon Kuns Work Phone: [facility] [place] Work Phone: Start: 05-02-2023 End: 05-02-2023 ambulatory Sheldon Kuns Other [employer] Other Start: 05-02-2023 Telephone encounter Sheldon Kuns [facility] [place] Start: 02-20-2023 End: 02-20-2023 ambulatory Sheldon Kuns Other [employer] Other Start: 02-20-2023 Telephone encounter Sheldon Kuns [facility] [place] Start: 01-10-2023 End: 01-11-2023 ambulatory SAMMIE DURAN Facility:[facility] Start: 12-26-2022 ambulatory SAMMIE DURAN Facili ty:[facility] Start: 12-20-2022 Office outpatient vi sit 15 minutes Sammie Duran [facility] Start: 12-20-2022 End: 12-20-2022 ambulatory DO Sheldon Kuns Work Phone: [facility] Work Phone: Start: 12-20-2022 End: 12-20-2022 Patient encounter procedure DO Sheldon Kuns Work Phone: [facility] Start: 12-14-2022 End: 12-14-2022 ambulatory Sheldon Kuns Other [employer] Other Start: 12-14-2022 Telephone encounter Sheldon Kuns [facility] Start: 12-12-2022 End: 12-15-2022 ambulatory SAMMIE DURAN Facility: Start: 12-05-2022 Rx Renewal Sheldon R Kuns Work Phone: [facility] 250 DO Work Phone: Start: 11-29-2022 End: 11-29-2022 ambulatory Sheldon Kuns Other [employer] Other Start: 11-29-2022 Office outpatient vi sit 25 minutes Sheldon Kuns [facility] Start: 11-22-2022 Rx Renewal Sheldon R Kuns [facility] 250 DO Work Phone: Start: 11-21-2022 End: 11-21-2022 ambulatory Sammie Duran Other [employer] Other Start: 11-21-2022 Telephone encounter Sammie Duran [facility] Start: 11-14-2022 End: 11-14-2022 ambulatory SAMMIE DURAN Facility:[facility] Start: 11-11-2022 Rx Renewal Sheldon R Kuns Work Phone: [facility] 250 DO Work Phone: Start: 11-08-2022 End: 11-08-2022 ambulatory DO Sheldon Kuns Work Phone: [facility] Work Phone: Start: 11-08-2022 End: 11-08-2022 Patient encounter procedure DO Sheldon Kuns Work Phone: [facility] Start: 10-17-2022 End: 10-17-[address] SHELDON XIE Facility: Start: 10-12-2022 End: 10-12-2022 ambulatory Sheldon Kuns Other [facility] Other Start: 10-12-2022 Telephone encounter Sheldon Xie [facility] [place] Start: 10-04-2022 End: 10-04-2022 ambulatory DO Sheldon Kuns Work Phone: [facility] Work Phone: Start: 10-04-2022 End: 10-04-2022 Patient encounter procedure DO Sheldon Kuns Work Phone: [facility] Start: 09-29-2022 Office outpatient vi sit 25 minutes Sheldon Kuns [facility] [place] Start: 09-29-2022 Telephone encounter Sammie Duran [facility] Start: 09-29-2022 End: 09-29-2022 ambulatory DO Sheldon Kuns Work Phone: [facility] Work Phone: Start: 09-29-2022 End: 09-29-2022 Patient encounter procedure DO Sheldon Kuns Work Phone: [facility] [place] Work Phone: Start: 09-27-2022 End: 09-27-2022 ambulatory Sammie Duran Other [employer] Other Start: 09-27-2022 Office outpatient vi sit 25 minutes Sammie Duran [facility] Start: 09-15-2022 Postop follow up vis it related to original px Sammie Mccallarney [facility] Start: 09-15-2022 Telephone encounter Sheldon Kuns [facility] [place] Start: 09-15-2022 End: 09-15-2022 ambulatory DO Sheldon Kuns Work Phone: [facility] Work Phone: Start: 09-15-2022 End: 09-15-2022 Patient encounter procedure DO Sheldon Kuns Work Phone: [facility] Start: 09-02-2022 End: 09-02-2022 ambulatory Sheldon Kuns Other [employer] Other Start: 09-02-2022 FQHC visit new patient Sammie Renny piña [facility] Start: 09-02-2022 Telephone encounter Sheldon Kuns [facility] [place] Start: 09-01-2022 Office outpatient vi sit 25 minutes Sheldon Kuns [facility] [place] Start: 09-01-2022 End: 09-01-2022 ambulatory DO Sheldon Kuns Work Phone: [facility] Work Phone: Start: 09-01-2022 End: 09-01-2022 Patient encounter procedure DO Sheldon Kuns Work Phone: [facility] Start: 08-08-2022 End: 08-08-2022 ambulatory Sheldon Kuns Other [employer] Other Start: 08-08-2022 Telephone encounter Sheldon Kuns [facility] Start: 08-04-2022 End: 08-04-2022 ambulatory Sheldon Kuns Other [employer] Other Start: 08-04-2022 Telephone encounter Sheldon Kuns [facility] Start: 07-29-2022 End: 07-29-2022 ambulatory Sheldon Kuns Other [employer] Other Start: 07-29-2022 Nursing evaluation o f patient and report Sheldon Kuns [facility] Start: 07-29-2022 Telephone encounter Sheldon Kuns [facility] Start: 06-23-2022 End: 06-23-2022 ambulatory Sheldon Kuns Other [facility] Other Start: 06-23-2022 Office outpatient vi sit 25 minutes Sheldon Kuns [facility] Start: 06-16-2022 End: 06-16-2022 ambulatory DO Sheldon Kuns Work Phone: [facility] Work Phone: Start: 06-16-2022 End: 06-16-2022 Patient encounter procedure DO Sheldon Kuns Work Phone: [facility] [place] Start: 06-03-2022 End: 06-03-2022 ambulatory DO Sheldon Kuns Work Phone: [facility] Work Phone: Start: 06-03-2022 End: 06-03-2022 Patient encounter procedure DO Sheldon Kuns Work Phone: [facility]-CT Scan [place] Start: 06-02-2022 End: 06-02-2022 ambulatory Sheldon Kuns Other [facility] Other Start: 06-02-2022 Telephone encounter Sheldon Kims [facility] Start: 05-24-2022 End: 05-24-2022 ambulatory Sheldon Kuns Other [facility] Other Start: 05-24-2022 Office outpatient vi sit 25 minutes Sheldon Kuns [facility] Start: 05-16-2022 End: 05-16-2022 ambulatory Sheldon Kuns Other [facility] Other Start: 05-16-2022 Telephone encounter Sheldon Kims [facility] Start: 04-18-2022 Registered Recurring DO Sheldon Kuns Work Phone: [facility]-Infusion Therapy - O/P Start: 04-13-2022 End: 04-14-2022 ambulatory ELMA CHRISTINA . Facility:[facility]1 Start: 04-05-2022 End: 04-06-[address] SHELDON XIE Facility:[facility] Start: 04-01-2022 End: 04-01-2022 Patient encounter procedure DO Sheldon Kuns Work Phone: [facility] [place] Start: 03-22-2022 End: 03-22-2022 ambulatory Sheldon Alvess Other [facility] Other Start: 03-22-2022 Office outpatient vi sit 25 minutes Sheldon Kuns [facility] Start: 02-09-2022 End: 02-09-2022 ambulatory Sheldon Kims Other [facility] Other Start: 02-09-2022 Telephone encounter Sheldon Kuns [facility] Start: 02-09-2022 End: 02-09-2022 Patient encounter procedure DO Sheldon Kuns Work Phone: [facility] [place] Start: 02-08-2022 Office outpatient vi sit 25 minutes Sheldon R Kuns Work Phone: [facility] 250 DO Work Phone: Start: 01-19-2022 End: 01-19-2022 ambulatory Sheldon Kuns Other [facility] Other Start: 01-19-2022 Telephone encounter Sheldon Kuns [facility] Start: 01-05-2022 Rx Renewal Ronnie mckee MD Work Phone: [facility] 250 DO Work Phone: Start: 12-21-2021 End: 12-21-2021 ambulatory Sheldon Kuns Other [facility] Other Start: 12-21-2021 Office outpatient vi sit 25 minutes Sheldon Kuns [facility] Start: 12-02-2021 End: 12-02-2021 ambulatory Sheldon Kuns Other [facility] Other Start: 12-02-2021 Office outpatient vi sit 25 minutes Sheldon Kuns [facility] Start: 11-29-2021 Rx Renewal Ronnie mckee MD Work Phone: [facility] 250 DO Work Phone: Start: 11-24-2021 End: 11-24-2021 ambulatory Sheldon Kuns Other [facility] Other Start: 11-24-2021 Office outpatient vi sit 25 minutes [facility]ld[facility]uns [facility] Start: 10-20-2021 End: 10-20-2021 ambulatory Sheldon Kuns Other [facility] Other Start: 10-20-2021 Telephone encounter Sheldon Kuns [facility] Start: 10-19-2021 End: 10-19-2021 ambulatory Sheldon Kuns Other [facility] Other Start: 10-19-2021 Telephone encounter Sheldon Kuns [facility] Start: 10-12-2021 Rx Renewal Ronnie mckee MD Work Phone: [facility] 600 DO Work Phone: Start: 10-07-2021 End: 10-07-2021 ambulatory Sheldon Kuns Other [facility] Other Start: 10-07-2021 Telephone encounter Sheldon Kuns [facility] Start: 09-07-2021 End: 09-07-2021 ambulatory Sheldon Kuns Other [facility] Other Start: 09-07-2021 Telephone encounter Sheldon Kuns [facility] Start: 07-06-2021 End: 07-06-2021 ambulatory Sheldon Kuns Other [facility] Other Start: 07-06-2021 Telephone encounter Sheldon Kuns [facility] Start: 06-15-2021 Telephone encounter Alireza villasenor [employer] Start: 06-10-2021 Office outpatient vi sit 25 minutes Alireza Olvera [facility] Vascular Surgery Procedures Date Procedure Procedure Detail Performing Clinician Start: 09-20-2024 AUDITORY FUNCTION TESTS Tammy AVILEZ Work Phone: Start: 06-18-2024 Plain X-ray of right rib DO Sheldon Kuns Work Phone: Start: 06-18-2024 X-ray of cervical spine DO Sheldon Kuns Work Phone: Start: 06-18-2024 X-ray of lumbar spin e, six views including bending views DO Sheldon Kuns Work Phone: Start: 06-18-2024 X-ray of sacrum and coccyx, two or more views DO Sheldon Kuns Work Phone: Start: 05-16-2024 Quick Strep (POC) DO Br ett Kuns Work Phone: Start: 05-16-2024 RSV (POC) DO Sheldon K uns Work Phone: Start: 05-16-2024 Plain chest X-ray DO Br ett Kuns Work Phone: Start: 11-20-2023 Plain X-ray of left hip DO Sheldon Kuns Work Phone: Start: 11-16-2023 Dual energy X-ray absorptiometry DO Sheldon Kuns Work Phone: Start: 10-10-2023 X-ray of lumbar spin e, six views including bending views DO Sheldon Kuns Work Phone: Start: 08-07-2023 Plain chest X-ray DO Br ett Kuns Work Phone: Start: 12-20-2022 X-ray of right foot DO Sheldon Kuns Work Phone: Start: 11-08-2022 X-ray of right foot DO Sheldon Kuns Work Phone: Start: 10-04-2022 Dual energy X-ray absorptiometry DO Sheldon Kuns Work Phone: Start: 10-04-2022 X-ray of right foot DO Sheldon Kuns Work Phone: Start: 09-15-2022 X-ray of right foot DO Sheldon Kuns Work Phone: Start: 09-01-2022 X-ray of right foot DO Sheldon Kuns Work Phone: Start: 06-03-2022 Computed tomography of abdomen and pelvis with contrast DO Sheldon Kuns Work Phone: Start: 06-03-2022 Plain chest X-ray DO Br ett Kuns Work Phone: Start: 06-03-2022 Plain X-ray of right rib DO Sheldon Xie Work Phone: Appendectomy Sheldon R Kims Work Phone: Cataract surgery Sheldon R Kim s Work Phone: Hysterectomy Sheldon R Kims Work Phone: Operation on the ear Sheldon R Kims Work Phone: Total colonoscopy Sheldon R Harsh ns Work Phone: Comment on above: [id number]; Plan of Treatment Date Care Activity Detail Author Start: 02-11-2025 End: 02-11-2025 Patient encounter procedure 02/11/2025 1:00 PM EDT Office Visit [facility] [address] [facility] [address] [place] [id number] Celestina Khalil MD [address] [facility] [address] [place], [place] [id number] [facility] Start: 01-01-2025 End: 01-01-2025 Patient encounter procedure 01/01/2025 3:00 PM EDT Office Visit [facility] [address] [place] [id number] [facility] Start: 09-20-2024 End: 09-20-2024 Patient encounter procedure 09/20/2024 1:00 PM EST Office Visit [facility] [address] [place] [id number] Tammy Melgar, AUD [address] [facility] [place] [address] Arrived [facility] Comment on above: Arrived Start: 04-28-2023 COVID-19 Vaccine () COVID-19 Vaccine () [facility] Start: 02-07-2023 FUV, Provider: Ronnie Colvin, Status: Pen, Time: 11:10 AM FUV, Provider: Ronnie Colvin, Status: Pen, Time: 11:10 AM [facility] 250 DO Work Phone: Start: 10-04-2022 Dual energy X-ray absorptiometry XR dexa axial skeleton [facility] Start: 04-18-2022 Registered Recurring Registered Recu rring [facility]-Infusion Therapy - O/P Start: 02-08-2022 FUV, Provider: Ronnie Colvin, Status: Pen, Time: 10:30 AM FUV, Provider: Ronnie Colvin, Status: Pen, Time: 10:30 AM [facility] 600 DO Work Phone: Start: 12-11-2019 Pneumococcal Vaccine : 65+ Years (2 of 2 - PPSV23 or PCV20) Pneumococcal Vaccine: 65+ Years (2 of 2 - PPSV23 or PCV20) [facility] Start: 12-11-2019 Pneumococcal Vaccine : 65+ Years (2 of 2 - PPSV23) Pneumococcal Vaccine: 65+ Years (2 of 2 - PPSV23) [facility] Start: 2001 RSV patient s and/or patients aged 60+ years (1 - 1-dose 60+ series) RSV patients and/or patients aged 60+ years (1 - 1-dose 60+ series) [facility] Start: 1963 DTaP/Tdap/Td Vaccine s (1 - Tdap) DTaP/Tdap/Td Vaccines (1 - Tdap) [facility] Start: 1959 Diabetes mellitus screening Diabetes Screening [facility] Start: 1941 Lipid panel Lipid Panel [facility] Start: 1941 Medicare Annual Well ness Visit Medicare Annual Wellness Visit (AWV) [facility] Start: 1941 Screening for osteoporosis Bone Density Scan [facility] Comprehensive metabo lic 1999 panel - Serum or Plasma [facility] Comprehensive metabo lic 1999 panel - Serum or Plasma [facility] Comprehensive metabo lic 1999 panel - Serum or Plasma [facility] Patient Education Low back pain in adults [facility] Work Phone: XR Cervical spine 5 Views [facility] XR Chest 2 Views [facility] XR Hip - left Single view [facility] XR Lumbar spine Views [facility] XR Ribs - right 2 Views [facility] XR Sacrum and Coccyx GE 2 Views [facility] Immunizations Immunization Date Immunization Notes Care Provider Fa cili 06-18-2024 influenza, high dose seasonal, preservative-free DO Sheldon Kuns Work Phone: [facility] 05-30-2023 influenza, high dose seasonal, preservative-free Sheldon Kuns Other [facility] 05-30-2023 influenza virus vaccine, unspecified formulation DO Sheldon Kuns Work Phone: [facility] 05-24-2022 influenza, high dose seasonal, preservative-free Hseldon Kuns Other [facility] 05-24-2022 influenza virus vaccine, unspecified formulation DO Sheldon Kuns Work Phone: [facility] 06-01-2021 Pfizer-BioNTWavecraft COVID-19 Vacc 30 MCG/0.3ML Intramuscular Suspension Sheldon R Cornices Work Phone: [facility] 05-02-2021 influenza, high dose seasonal, preservative-free Alireza Olvera Other [facility] Other 05-02-2021 Fluzone High-Dose Quadrivalent 0.7 ML Intramuscular Suspension Prefilled Syringe Sheldon R Cornices Work Phone: [facility] 05-02-2021 influenza virus vaccine, unspecified formulation DO Sheldon Kuns Work Phone: [facility] 10-17-2020 COVID-19 Vaccine Pfi zer - Documentation Purposes Only Alireza Olvera Other [facility] 09-26-2020 COVID-19 Vaccine Pfi zer - Documentation Purposes Only Alireza Apariciomarleni Other [facility] 05-08-2020 influenza, seasonal, injectable Alireza Olvera Other [facility] 04-28-2020 influenza virus vaccine, unspecified formulation Sheldon R Kuns Work Phone: [place] [address] DO Work Phone: 08-16-2019 zoster vaccine recombinant Alireza Olvera Other [facility] 06-03-2019 zoster vaccine recombinant Alireza Olvera Other [facility] 06-03-2019 influenza, seasonal, injectable Alireza Apariciomarleni Other [facility] 05-28-2019 influenza virus vaccine, unspecified formulation Sheldon R Kuns Work Phone: [place] [address] DO Work Phone: 12-10-2018 pneumococcal conjuga te vaccine, 13 valent Alireza Wade Other [facility] 08-28-2018 pneumococcal polysaccharide vaccine, 23 valent Sheldon R Kuns Work Phone: [place] [address] DO Work Phone: 05-28-2018 influenza virus vaccine, unspecified formulation Sheldon R Kuns Work Phone: [facility] 250 DO Work Phone: 05-16-2018 influenza virus vaccine, unspecified formulation DO Sheldon Kuns Work Phone: [facility] 05-16-2018 influenza, high dose seasonal, preservative-free Alireza Apariciomarleni Other [facility] 08-28-2017 pneumococcal conjuga te vaccine, 13 valent Sheldon R Kuns Work Phone: [facility] 250 DO Work Phone: 05-30-2017 influenza virus vaccine, unspecified formulation DO Sheldon Kuns Work Phone: [facility] 05-30-2017 influenza, high dose seasonal, preservative-free Alireza Langenberg Other [facility] 05-28-2017 influenza virus vaccine, unspecified formulation Sheldon R Kuns Work Phone: [facility] 250 DO Work Phone: 09-06-2016 Toradol per 15 mg Alireza La ngenberg Other [facility] Other 09-01-2016 Toradol per 15 mg Alireza La ngenberg Other [facility] Other 06-14-2016 influenza virus vaccine, unspecified formulation DO Sheldon Kuns Work Phone: [facility] 06-14-2016 influenza, high dose seasonal, preservative-free Alireza Langenberg Other [facility] 05-28-2016 influenza virus vaccine, unspecified formulation Sheldon R Kuns Work Phone: [facility] 250 DO Work Phone: 06-05-2015 influenza virus vaccine, unspecified formulation DO Sheldon Kuns Work Phone: [facility] 06-05-2015 influenza, high dose seasonal, preservative-free Alireza Langenberg Other [facility] 05-28-2015 influenza virus vaccine, unspecified formulation Sheldon R Kuns Work Phone: [facility] 250 DO Work Phone: 05-14-2014 influenza, high dose seasonal, preservative-free Alireza Langenberg Other [place] [facility] Other 05-14-2014 influenza virus vaccine, unspecified formulation DO Sheldon Xie Work Phone: [facility] 06-06-2013 zoster vaccine, live Sheldon Xie Work Phone: [facility] 08-28-2010 pneumococcal polysaccharide vaccine, 23 valent Sheldon Xie Work Phone: [facility] 250 DO Work Phone: influenza virus vaccine, unspecified formulation Sheldon Xie Work Phone: [facility] 250 DO Work Phone: Comment on above: May [id number] Payers Date Payer Category Payer Medicare (Managed Care) [facility] [place] [address] [id number] 2023 Self-pay [id number] 2023 Medicare [facility] MEDIC[facility] [employer] MEDICARE [id number] 2023-Present [address] [place] [address] [id number] 2023 Private Health Insurance [id number] 1959 Medicare [id number] 1959 Medicare [id number] 1959 Self-pay [id number] 1941 Unknown [id number] 2.16.840.1.744676.3.579.2. 593 1941 Unknown [id number] 2.16.840.1.176400.3.579.2. 593 1941 Unknown [id number] 2.16.840.1.985236.3.579.2. 593 1941 Unknown [id number] 2.16.840.1.104838.3.579.2. 593 1941 Unknown [id number] 2.16.840.1.890578.3.579.2. 593 1941 Unknown [id number] 2.16.840.1.522634.3.579.2. 593 1941 Unknown [id number] 2.16.840.1.857163.3.579.2. 593 1941 Unknown [id number] 2.16.840.1.973268.3.579.2. 593 1941 Unknown [id number] 2.16.840.1.748585.3.579.2. 1286 1941 Unknown [id number] 2.16.840.1.743181.3.579.2. 1259 1941 Unknown [id number] 2.16.840.1.898917.3.579.2. 1259 1941 Unknown [id number] 2.16.840.1.063112.3.579.2. 1259 1941 Unknown [id number] 2.16.840.1.822781.3.579.2. 1259 1941 Unknown [id number] 2.16.840.1.817336.3.579.2. 1244 Medicare [id number] 2.16.840.1.784712.19 Medicare Medicare [id number] Unknown [employer] Unknown [id number] 2.16.840.1.914095.3.579.2. 531 Unknown [id number] 2.16.840.1.316989.3.579.2. 531 Unknown [id number] 2.16.840.1.862331.3.579.2. 531 Unknown [id number] 2.16.840.1.143009.3.579.2. 531 Unknown [id number] 2.16.840.1.450047.3.579.2. 531 Unknown [id number] 2.16.840.1.070010.3.579.2. 531 Unknown [id number] 2.16.840.1.936849.3.579.2. 531 Social History Date Type Detail Facility Start: 02-09-2024 Social alcohol use Social alcohol us e [facility] Other Comment on above: Quit Smoking 1998 - smoked 1 PPD; Start: 02-09-[address] [facility] Other Start: 03-07-2019 End: 12-14-2023 Tobacco smoking status NHIS Ex-smoker (finding) [facility] Start: 1940 Sex Assigned At Female [facility] History of tobacco use Current smoker [facility] Work Phone: History of tobacco use Cigarette Smoker [facility] Work Phone: Start: 02-09-2024 Tobacco use and exposure Smokeless tobacco non-user [facility] Work Phone: Start: 02-09-2024 Alcoholic beverage intake Current drinker of alcohol (finding) [facility] Work Phone: Start: 02-09-2024 Alcohol Comment couple times a year [facility] Work Phone: Start: 1940 Sex assigned at Not on file [facility] Work Phone: Start: 01-30-2024 End: 02-09-2024 Exposure to SARS-CoV-2 (event) Not sure [facility] Start: 07-09-2024 End: 12-24-2024 Sex Female (finding) [facility] Tobacco smoking status NHIS Tobacco smoking consumption unknown [facility] Start: 09-17-2024 Gender identity Identifies as female gender (finding) [facility] Clinical Notes 03-20-2012 to 01-01-2025 Nan Anna MA - 01/01/2025 3:00 PM Shavon Anna MA - 12/04/2024 11:30 AM EDTTelephone Encounter - Tammy Ishmael Melgar, AUD - 09/20/2024 4:33 PM Nehemias Melgar, AUD - 09/20/2024 1:00 PM EST Note Date & Type Note Facility 01-01-2025 History of Presen t illness Narrative Patient was in today with ongoing complaints of discomfort with the hearing aids. Patient states that her old hearing aids were bigger and she preferred the bigger size. I explained there is nothing I can do to change the size of the hearing aid unit. She is particularly bothered when she puts her glasses on and she feels the aid then sticks out and is uncomfortable. The aid appears to fit well and it does not come out of her ear. I suggested we try removing the retention line. This should not cause a problem but I am unclear on what else to try. As soon as we removed the retention line patient felt the aid fit better. She tried removing and replacing her glasses and stated it felt better. Patient would like to come in after three months as she cannot see to change the dome and filter. She did not want to schedule now but states she will call. Cosigned by LORNA Mercado at 01/01/2025 3:43 PM EDT documented in this encounter [facility] 12-04-2024 History of Presen t illness Narrative Patient was in today for a follow up on new hearing aid/CROS. Patient states she is in general doing ok but might not be hearing as well as she would like. I changed patient's left hearing aid to a small closed dome with retention. I then programmed aids to closed dome. Patient felt the aids seemed a bit better and she was comfortable with this dome. Patient also complained that her right aid retention line was always sticking out. I removed the retention line. Patient was scheduled for a follow up in a month. Cosigned by LORNA Mercado at 12/04/2024 1:00 PM EDT documented in this encounter [facility] 09-20-2024 Telephone encount er Note Blocked time for HAF in [place] at 10:00 am on 11-13-2024 [facility] 09-20-2024 Miscellaneous Notes Formattin g of this note might be different from the original. Blocked time for HAF in [place] at 10:00 am on 11-13-2024 documented in this encounter [facility] 09-20-2024 Telephone encount er Note Called [employer] and we have a 90 day fit period before any issues arise. According to the rep, as long as these aids are dispensed before 12-18-24, all is fine. Pt will call once she returns from [place] and can be fit with the aids when she returns. This will not affect her 60 day trial. [facility] 09-20-2024 Miscellaneous Notes Formattin g of this note might be different from the original. Called [employer] and we have a 90 day fit period before any issues arise. According to the rep, as long as these aids are dispensed before 12-18-24, all is fine. Pt will call once she returns from [place] and can be fit with the aids when she returns. This will not affect her 60 day trial. documented in this encounter [facility] 09-20-2024 History of Presen t illness Narrative History: Patient was referred for an audiological evaluation. She has benefits under her [facility] plan. Patient is currently wearing a BiCROS device. She previous saw Dr. Moreno. Hearing is worse in the right ear. Otoscopic Exam: Revealed ear canals were clear from excessive cerumen, bilaterally. 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 Speech Audiometry Right SRT = 90 dB and word discrimination score at 105 dBHL = 72% Left SRT = 45 dB and word discrimination score at 80 dBHL = 100% Tympanometry CNT- equipment issues Impressions: Discussed results with the patient. She has worn a BiCROS in the past and would like to continue with this style. Pt would Signia BiCROS + 7IX Pure C&G (cros for the right ear and HOLLOWAY for the left ear). She is aware of the mixed hearing loss, stating she was treated by Dr. oMreno in the past. Pt paid in full for hearing aid in portal. She mentioned she is traveling for [place] in 2 weeks and will be gone for 1 month. Pt will need to be scheduled for HAF when she returns, Will call [facility] to see if they can hold order. documented in this encounter [facility] 09-19-2024 Evaluation note Authored September 19, 2024 2 :01pm The above note written by Kaiden WARE acting as human recorder, note dictated by Dr. Sheldon Xie. [facility] Work Phone: 1(571) 895-652909-19-2024 Evaluation note* Author Selene [facility] Authored May 16, 2024 8:36am The above note written by Kaiden WARE acting as human recorder, note dictated by Dr. Sheldon Xie. Author Aleksandr Krauseon [facility] Authored June 18, 2024 1 :06pm The above note written by CHAZ Spicer acting as human recorder, note dictated by Dr. Sheldon Xie. [facility] Work Phone: 1(274) 582-540409-19-2024 Evaluation note* Author Selene [facility] Authored May 16, 2024 7:36am The above note written by Kaiden WARE acting as human recorder, note dictated by Dr. Sheldon Xie. Author Aleksandr Hollowayolson [facility] Authored June 18, 2024 1 2:06pm The above note written by CHAZ Spicer acting as human recorder, note dictated by Dr. Sheldon Xie. [facility] Work Phone: 1(397) 384-849307-23-2024 Evaluation note* Author Alba Person [facility] Authored March 19, 2024 2:12 pm Sooner if needed, the ER if concerns,The above note written by Alba Person LPN acting as human recorder, note dictated by Dr. Sheldon Xie [facility] Work Phone: 1(727) 139-916807-23-2024 Evaluation note* Author Alba Person [facility] Authored March 19, 2024 2:12 pm Sooner if needed, the ER if concerns,The above note written by Alba Person LPN acting as human recorder, note dictated by Dr. Sheldon Xie Author Selene [facility] Authored May 16, 2024 8:36am The above note written by Kaiden WARE acting as human recorder, note dictated by Dr. Sheldon Xie. [facility] Work Phone: 1(449) 804-794906-14-2024 History of Present illness Narrative* Ronnie Colvin MD - 02/09/2024 1:20 PM EDT Subjective Aleksandr Sanchez is a 83 y.o. female Chief Complaint Annual Exam HPI Patient returns in follow-up of problems as noted. She done well. She denies any arrhythmia symptomatology and he is doing well in regards to lipids and blood pressure. When queried she feels a little lightheaded and a little weak at times. We note blood pressure is low today and she states it was also low recently at Dr. Gaitan's office and because of this I ultimately recommended changing lisinopril from 10 mg a day to 2 and half milligrams a day. The rationale for doing so was explained and she agrees to the plan. Otherwise she is doing well in regards to other matters and she was encouragedto call if new problems arise Vitals: 02/09/24 1316 BP: 100/58 BP Location: Left arm Patient Position: Sitting Pulse: 68 Weight: 49.4 kg (109 lb) Height: 1.575 m (5' 2 ) Objective Physical Exam Constitutional: Appearance: Normal appearance. HENT: Nose: Nose normal. Neck: Vascular: No carotid bruit. Cardiovascular: Rate and Rhythm: Normal rate. Pulses: Normal pulses. Heart sounds: Normal heart sounds. Pulmonary: Effort: Pulmonary effort is normal. Abdominal: General: Bowel sounds are normal. Palpations: Abdomen is soft. Musculoskeletal: General: Normal range of motion. Cervical back: Normal range of motion. Right lower leg: No edema. Left lower leg: No edema. Skin: General: Skin is warm and dry. Neurological: General: No focal deficit present. Mental Status: She is alert. Psychiatric: Mood and Affect: Mood normal. Behavior: Behavior normal. Thought Content: Thought content normal. Judgment: Judgment normal. Allergies Codeine Current Medications Current Outpatient Medications: albuterol 2.5 mg /3 mL (0.083 %) nebulizer solution, Three times daily, Disp: , Rfl: aspirin 81 mg EC tablet, Take 1 tablet (81 mg) by mouth once daily., Disp: , Rfl: brimonidine-timoloL (Combigan) 0.2-0.5 % ophthalmic solution, Administer 1 drop into both eyes every 12 hours., Disp: , Rfl: CALCIUM CARBONATE-VITAMIN D3 ORAL, Take 1 tablet by mouth once daily., Disp: , Rfl: carvedilol (Coreg) 6.25 mg tablet, TAKE 1 TABLET BY MOUTH TWICE DAILY, Disp: 180 tablet, Rfl: 3 clonazePAM (KlonoPIN) 0.5 mg tablet, Take 1 tablet (0.5 mg) by mouth once daily., Disp: , Rfl: esomeprazole magnesium (NexIUM 24HR) 20 mg tablet,delayed release (DR/EC), Take 1 tablet by mouth once daily., Disp: , Rfl: fluticasone (Flonase) 50 mcg/actuation nasal spray, Administer 2 sprays into each nostril once daily., Disp: , Rfl: nqbipyiyfba-eghulxeyk-ahmcogvr (TRELEGY-ELLIPTA) 100-62.5-25 mcg blister with device, Inhale 1 puff., Disp: , Rfl: latanoprost (Xalatan) 0.005 % ophthalmic solution, Administer 1 drop into both eyes once daily., Disp: , Rfl: lisinopril 10 mg tablet, TAKE 1 TABLET BY MOUTH DAILY, Disp: 90 tablet, Rfl: 3 multivitamin with minerals iron-free (Centrum Silver), Take 1 tablet by mouth once daily., Disp: , Rfl: potassium chloride CR 10 mEq ER tablet, Take 2 tablets (20 mEq) by mouth once daily., Disp: , Rfl: pravastatin (Pravachol) 40 mg tablet, Take 1 tablet (40 mg) by mouth once daily at bedtime., Disp: , Rfl: romosozumab-aqqg (Evenity) 105 mg/1.17 mL syringe, Inject under the skin every 30 (thirty) days., Disp: , Rfl: torsemide (Demadex) 10 mg tablet, TAKE 1 TABLET BY MOUTH DAILY, Disp: 90 tablet, Rfl: 3 vit V-J-jywuee-zinc-lutein (Eye Multivit-Lutein,C-E-Cu-Zn,) 226 mg-90 mg-2 mg- 34.8 mg-5 mg capsule,Take 1 tablet by mouth see administration instructions., Disp: , Rfl: Assessment/Plan 1. Benign essential hypertension Review of treatment demonstrates low pressures and probably indication for reduction in dosage. 2. Paroxysmal supraventricular tachycardia (CMS-HCC) No recurrence of PSVT based upon extensive review 3. Mixed hyperlipidemia Review of treatment strategy demonstrates good control 4. Former cigarette smoker Congratulated on cessation Scribe Attestation By signing my name below, I, Ayleen QuiñonesMeghan YODER , Reubenibe attest that this documentation has been prepared under the direction and in the presence of Alex Colvin MD. Provider Attestation - Scribe documentation All medical record entries made by the Scribe were at my direction and personally dictated by me. Ihave reviewed the chart and agree that the record accurately reflects my personal performance of the history, physical exam, discussion and plan. [facility] [place] Work Phone: 1(776) 710-605606-14-2024 Instructions* Patient Instructions* Roxann Zamora CMA - 02/09/2024 1:20 PM EDT Please bring all medicines, vitamins, and herbal supplements with you when you come to the office. Prescriptions will not be filled unless you are compliant with your follow up appointments or have a follow up appointment scheduled as per instruction of your physician. Refills should be requested at the time of your visit. documented in [facility]Hol[facility] [place] Work Phone: 1(722) 934-934906-03-2024 Evaluation note* Author [facility] Authored January 29, 2024 11:20 am The above note written by Kaiden WARE acting as human recorder, note dictated by Dr. Sheldon Xie. Author Aleksandr Olivo [facility] Authored December 14, 2023 12: 48pm The above note written by CHAZ Spicer acting as human recorder, note dictated by Dr. Sheldon Xie. [facility] Work Phone: 1(367) 894-644406-03-2024 Evaluation note* Author Selene [facility] Authored January 29, 2024 11:20 am The above note written by Kaiden WARE acting as human recorder, note dictated by Dr. Sheldon Xie. Author Alba Person [facility] Authored March 19, 2024 2:12 pm Sooner if needed, the ER if concerns,The above note written by Alba Person LPN acting as human recorder, note dictated by Dr. Sheldon Xie [facility] Work Phone: 1([phone]) 730-378403-20-2024 Evaluation note* Author Aleksandr Hollowayolson [facility] Authored November 15, 2023 12: 56pm The above note written by CHAZ Spicer acting as human recorder, note dictated by Dr.Brett Xie . [facility] Work Phone: [phone]) 345-492003-20-2024 Evaluation note* Author Aleksandr Krauseon [facility] Authored November 15, 2023 12: 56pm The above note written by CHAZ Spicer acting as human recorder, note dictated by Dr.Brett Xie . Author Aleksandr Olivo [facility] Authored December 14, 2023 12: 48pm The above note written by CHAZ Spicer acting as human recorder, note dictated by Dr. Sheldon Xie. [facility] Work Phone: 1([phone]) 881-418103-20-2024 Evaluation note* Author Aleksandr Olivo [facility] Authored November 15, 2023 12: 56pm The above note written by CHAZ Spicer acting as human recorder, note dictated by Dr.Brett Xie . Author Selene Storey [facility] Authored January 29, 2024 11:20 am The above note written by Kaiden WARE acting as human recorder, note dictated by Dr. Sheldon Xie. Author Aleksandr Olivo [facility] Authored December 14, 2023 12: 48pm The above note written by CHAZ Spicer acting as human recorder, note dictated by Dr. Sheldon Xie. [facility] Work Phone: [phone]) 976-289412-13-2023 Evaluation note* Encounter Date Diagnosis Assessment Notes Treatment Notes Treatment Clinical Notes Jul, COPD (chronic obstructive pulmonary disease) (ICD-10 - J44.9) Jul, Dyspnea (ICD-10 - R06.00) [facility] 11-07-2023 Evaluation note* Encounter Date Diagnosis Assessment Notes Treatment Notes Treatment Clinical Notes Jun, COPD (chronic obstructive pulmonary disease) (ICD-10 - J44.9) Today will be the patients fourth session of respiratory therapy at [facility]. I am in agreement the patient establish care with a pulmonoloigst, she has seen in the past and did not care for that physican. The patient is agreeable to seeing , therefore a referral was initiatd. A chest x-ray and PFT ordered as required prior to consult Jun, Restless legs syndrome (ICD-10 - G25.81) Jun, Foot fracture, right (ICD-10 - S92.901A) Pedal pulses are strong upon palpation. Due to persistent pain and edema of the right foot /leg. I am in agreement with providing a referral to vascular specialist, referral initiated Jun, Hypertension (ICD-10 - I10) Pt is to continue with the above medication, a refill was provided and we will continue to monitor. Jun, Hyperlipemia (ICD-10 - E78.5) Pt is to continue with the above medication and continue watching their diet and increase their exercise regimen. Blood work ordered to be collected in three months, [facility] 10-03-2023 Evaluation note* Encounter Date Diagnosis Assessment Notes Treatment Notes Treatment Clinical Notes May, Hypertension (ICD-10 - I10) Blood pressure is well controlled on current medications. She denies any exacerbation with cough. Potassium levels are within normal limits and renal function is stable. I do want her to continue with current meds as ordered May, Edema, unspecified type (ICD-10 - R60.9) No significant edema noted upon examination. No increased SOB to report. Renal function and remainder of chemestries are stable upon recent lab review. Weight is stable. I will have her continue with current meds as ordered. Continue with compression stockings May, COPD (chronic obstructive pulmonary disease) (ICD-10 - J44.9) Patient has been under the care of Dr. Christina, Cv/Cvn Cv Tsc System Operator, for her COPD but her last visit was in June of 2022. She was advised to be seen in a year but patient is not wanting to return to see him. She is using Trelegy and doing well. Her nebulizer machine is not working properly and I will provide her with a new machine from this office today. Paperwork has been completed and will forward to [facility]. She is considering pulmonary rehab and I am in agreement with this. I will have my staff arrange this for patient and contact her with the information May, Hyperlipemia (ICD-10 - E78.5) Recent lab results reviewed with patient. Her lipid levels are well controlled on the pravastatin. Liver enzymes are normal. Denies any increased joint or muscle pain. I will have her continue with the current meds as ordered. May, RLS (restless legs syndrome) (ICD-10 - G25.81) Patient does have some cramping in the lower legs bilateral. She was ordered flexeril at the last visit but was not beneficial and she stopped it. She is currently using the Klonopin to help control the RLS and this does help somewhat. I will have her continue to use as ordered May, Fatigue, unspecified type (ICD-10 - R53.83) Patient does report significant fatigue. Her recent CBC is within normal limits and her thyroid levels are also normal. I feel this is directly related to the flexeril that she had been taking for the RLS and advised her to discontinue. She is in agreement May, Needs flu shot (ICD-10 - Z23) High dose flu vaccine provided today. VIS provided [facility] 09-05-2023 Evaluation note* Encounter Date Diagnosis Assessment Notes Treatment Notes Treatment Clinical Notes Apr, RLS (restless legs syndrome) (ICD-10 - G25.81) [facility] 04-25-2023 Evaluation note* Encounter Date Diagnosis Assessment Notes Treatment Notes Treatment Clinical Notes Nov, Right foot pain (ICD-10 - M79.671) Nov, Displaced fracture of fifth metatarsal bone, right foot, subsequent encounter for fracture with routine healing (ICD-10 - S92.351D) X-rays were reviewed with the patient today, patient's fracture is progressing well since the start of the injury. Jeovany patient no longer needs to f/u with us for the foot, we reminded to see us after her osteoporosis treatment. Patient f/u on a PRN basis. [facility] Other 04-04-2023 Evaluation note* Encounter Date Diagnosis Assessment Notes Treatment Notes Treatment Clinical Notes Nov, Foot fracture, right (ICD-10 - S92.901A) Patient is healing from the right foot fracture and is following with ortho. She does have some skin discoloration noted of the right foot. Pedal pulses are felt. Skin is warm to touch. She has had 2 Evenity injections to assist with bone healing and this foot will be reimaged again at the end of the month. She is progressing along well considering the severity of the osteoporosis. Advised to follow up as ordered with ortho for fracture care. Nov, Osteoporosis (ICD-10 - M81.0) Patient has known osteoporosis and does use prolia every 6 months. Patient does have significant osteoporosis and has recently been under the care of ortho for a fracture of the right foot. Patient is to continue with the osteoporosis treatment as ordered Nov, Hypertension (ICD-10 - I10) Blood pressure is good in office today. Denies any side effects of the lisinopril. No exacerbation of cough to report. She is tolerating the medication well and it is keeping her blood pressure controlled. She is to continue with lisinopril as ordered. Blood chemestries are reviewed today and are all within normal limits Nov, Hyperlipemia (ICD-10 - E78.5) Current lipid panel from September 2022 reviewed with patient and her lipid levels are well controlled with the use of the statin therapy. She is tolerating it well with no ill side effects to report. Liver enzymes are within normal limits. I am going to continue to keep her on the current treatment regimen Nov, End of life care (ICD-10 - Z51.5) Per patient request we have provided her with literature on advance directives for her personal use. I did recommend she consult an licensed land surveyor and discuss her wishes with her family. [facility] 03-27-2023 Evaluation note* Encounter Date Diagnosis Assessment Notes Treatment Notes Treatment Clinical Notes Oct, Osteoporosis (ICD-10 - M81.0) [facility] 02-02-2023 Evaluation note* Encounter Date Diagnosis Assessment Notes Treatment Notes Treatment Clinical Notes Sep, Foot fracture, right (ICD-10 - S92.901A) Patient's most recent x-ray did not show much improvent in the healing process. She continues to be in an air cast but pain is improving. Encouraged patient to follow with Sammie Duran as scheduled. Sep, Hyperlipemia (ICD-10 - E78.5) Encouraged patient to obtain ordered blood work. Sep, Hypertension (ICD-10 - I10) Blood pressure is stable upon check in. Refill provided of the above medication. Sep, Osteoporosis (ICD-10 - M81.0) Patient is following with Sammie Duran who is working on getting an updated DEXA scan approved to have a comparison due to the prolonged healing process with her foot. She in the mean time was started on 600-800mg of Vitamin D and 1,200mg of Calcium. Patient has been receiving Prolia injections but is in the process of obtaining approval for Evenity to use monthly for a year and then plans to switch back to Prolia. Encouraged patient to follow with recommended treatment plan. Sep, Depression, unspecified depression type (ICD-10 - F32.9) Patient does feel the above medication has been working well since starting and denies any adverse effects. She is to continue as directed. 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 Reviewed most recent Dexa scan from February of 2021. Based on the recent fracture and previous dexa scan results patient would benefit from Evenity for its bone building properties. At this time I would like to obtain a new dexa scan prior to starting evenity and will obtain lab work as well. Patient has a lab order from her PCP and we will add to it. Patient instructed to take 1200mg of Calcium and 600 to 800 units of Vitamin D. All questions and concerns were addressed with patient and daughter. Will call with lab results when they are completed. [facility] 01-19-2023 Evaluation note* Encounter Date Diagnosis Assessment Notes Treatment Notes Treatment Clinical Notes Aug, Right foot pain (ICD-10 - M79.671) Aug, Displaced fracture of fifth metatarsal bone, right foot, subsequent encounter for fracture with routine healing (ICD-10 - S92.351D) Patient instructed to continue use of boot, may remove when sedentary and while bathing. Weight bear as tolerated Aug, Other Discussed Proli a and Evenity. Patient will schedule for [facility] 01-06-2023 Evaluation note* Encounter Date Diagnosis Assessment Notes Treatment Notes Treatment Clinical Notes Aug, Foot fracture, right (ICD-10 - S92.901A) [facility] 01-06-2023 Evaluation note* Encounter Date Diagnosis Assessment Notes Treatment Notes Treatment Clinical Notes Aug, Right foot pain (ICD-10 - M79.671) Aug, Displaced fracture of fifth metatarsal bone, right foot, initial encounter for closed fracture (ICD-10 - S92.351A) Aug, Other Patient has sustained a 5th metatarsal fracture. We discussed that this can take at least 6 weeks to heal. We will allow gentle ankle and foot motion and gentle progressive weight bearing as tolerated as pain allows. Patient is in need of a boot due to their diagnosis of fifth metatarsal fracture. This is needed for aid in activities of daily living by increasing safety and stability. This will be needed for approximately 12 weeks. We discussed weight bearing on the the involved extremity as minimal as possible. Continue with Tylenol as needed for pain. [facility] 01-05-2023 Evaluation note* Encounter Date Diagnosis Assessment Notes Treatment Notes Treatment Clinical Notes Aug, COPD (chronic obstructive pulmonary disease) (ICD-10 - J44.9) Aug, Injury of right foot, initial encounter (ICD-10 - S99.921A) Patient stepped wrong on the foot 2 days ago and felt a snap . She has pain with bruising and swelling of the right lateral side of the foot. I am going to order xrays for her and more than likely refer to casing finisher and stuffer. It appears to have possible fracture. She is to wear a hard sole shoe/boot for support Aug, Right foot pain (ICD-10 - M79.671) right foot pain related to injury. Xray ordered Aug, Depression, unspecified depression type (ICD-10 - F32.9) Patient stopped her citalopram some time ago and she is complaining of depression again. She is wanting to restart citalopram. I am in agreement with this and Rx will be sent today. I am getting some lab on her and I want to see her again in about 4 weeks. Aug, Skin irritation (ICD-10 - R23.8) Patient notes cracking of the skin of her fingers. She has used the diprolene cream in the past with success. Rx ordered Aug, Hyperlipemia (ICD-10 - E78.5) Lipids panel ordered and CMP Aug, Hypertension (ICD-10 - I10) K1 ordered for patient and will review at next visit [facility] 12-08-2022 Evaluation note* Encounter Date Diagnosis Assessment Notes Treatment Notes Treatment Clinical Notes Jul, Restless legs syndrome (ICD-10 - G25.81) [facility] 12-02-2022 Evaluation note* Encounter Date Diagnosis Assessment Notes Treatment Notes Treatment Clinical Notes Jul, Acute cough (ICD-10 - R05.1) [facility] 10-27-2022 Evaluation note* Encounter Date Diagnosis Assessment Notes Treatment Notes Treatment Clinical Notes May, Abdominal pain, unspecified abdominal location (ICD-10 - R10.9) Reviewed CT of the abdomen and pelvis and noted minimal dilation of the common bile duct but no change from previous testing. Small hernias noted in the pelvic floor but nothing that would cause and problem. Nothing noted that would cause any weight loss. No mass/ lesion detected. Patient report that her abdominal pain has since subsided. Her weight is stable from last visit May, Rib pain on right side (ICD-10 - R07.81) Reviewed CXR and Right rib series. No acute changes identified. The ribs did demonstrate osteoporosis. COPD identified but nothing new. May, Hypercalcemia (ICD-10 - E83.52) I have repeated CMP to look at the calcium level again as at last visit it was slightly elevated. Upon review the calcium level is now within normal limits. Remainder of lab is also within normal limits May, Visual changes (ICD-10 - H53.9) Patient does have known glaucoma and Macular Degeneration. Patient reports since she has started the new inhalers ordered from the hot metal mixer operator, she has noticed worsened vision and she is concerned this may be causing her pressures to be elevated. She is scheduled to see eye doctor next month. Patient encouraged to contact hot metal mixer operator to advise of the visual changes and see if the inhaler needs to be changed. She is also contacting the eye doctor May, COPD (chronic obstructive pulmonary disease) (ICD-10 - J44.9) Patient advised to contact Dr. Christina re: the visual changes that she feels is associated with the new inhalers. This may need to be changed. I may need to put her back on the Trelegy if needed but she is to call hot metal mixer operator first. Voiced understanding [facility] 10-06-2022 Evaluation note* Encounter Date Diagnosis Assessment Notes Treatment Notes Treatment Clinical Notes May, Weight loss (ICD-10 - R63.4) May, Abdominal pain, unspecified abdominal location (ICD-10 - R10.9) [facility] 09-27-2022 Evaluation note* Encounter Date Diagnosis Assessment Notes Treatment Notes Treatment Clinical Notes Apr, Hyperlipemia (ICD-10 - E78.5) Lipid panel has been reviewed with patient. Levels are within normal limits. Glucose is good. Chemestries are within normal limits. Liver enzymes are within normal limits. Continue with current statin therapy Apr, Chronic obstructive pulmonary disease, unspecified COPD type (ICD-10 - J44.9) Patient is following with Dr. Christina, Cv/Cvn Cv Tsc System Operator, for her COPD. She does have some new medications on board and seems to be keeping her stable. She is going back to see him again in June 2022 and she is going to discuss portable oxygen to use as needed. States that she does have some dyspnea on exertion. I did review the most recent PFT with patient and did explain to her the results in terms she can understand. Apr, Hypertension (ICD-10 - I10) Blood pressure is well controlled on current medication. Her renal panel looks stable. Electrolytes are within normal limits Apr, Weight loss (ICD-10 - R63.4) Lab results reviewed with patient. Thyroid level is normal. Her calcium level is at 10.4 which is just slightly higher than previous of 10.0 and this will be monitored. Her weight is down slightly and reports that her appetite has not been the best Apr, Abdominal pain, unspecified abdominal location (ICD-10 - R10.9) Patient reports some centered abdominal pain. Her appetite has been poor. She is losing weight. She has not had any recent imaging done. Due to her pain and weight loss, I feel a CT scan of her abdomen and pelvis is warranted at this time. If this is negative, then she may need to be scoped. Patient is in agreement and this is ordered today Apr, Rib pain on right side (ICD-10 - R07.81) Right sided rib pain at times. Patient states Dr. Christina told her she had a rib out of place . I have examined patient and I feel she should have a CXR and right rib series to evaluate her pain. Apr, Hypercalcemia (ICD-10 - E83.52) Repeat CMP ordered to monitor the elevated calcium level. Apr, Needs flu shot (ICD-10 - Z23) [facility] 09-19-2022 Evaluation note* Encounter Date Diagnosis Assessment Notes Treatment Notes Treatment Clinical Notes Apr, Restless legs syndrome (ICD-10 - G25.81) [facility] 07-26-2022 Evaluation note* Encounter Date Diagnosis Assessment Notes Treatment Notes Treatment Clinical Notes Feb, Hypertension (ICD-10 - I10) Blood pressure is good in office today. Patient is to continue with current blood pressure mediation regimen and will follow up Feb, Depression, unspecified depression type (ICD-10 - F32.9) Patient is tolerating medication well. She is to continue as this is controlling her depression Feb, Hyperlipemia (ICD-10 - E78.5) Patient is tolerating statin therapy fine. This is to be continued. Lab ordered Feb, COPD (chronic obstructive pulmonary disease) (ICD-10 - J44.9) Patient does have known COPD and has been using the Trelegy daily and nebulizer as needed. She has noted some improvement with her breathing since she was started on a diuretic. Patient noted from drug abuse treatment specialist office that her oxygen level did drop significantly during ambulation and it was felt by the drug abuse treatment specialist that perhaps oxygen is needed and a pulmonary consult is warranted. I would like to refer patient to Dr. Christina for consultation. Patient is in agreement. Referral initiated. Feb, Edema, unspecified type (ICD-10 - R60.9) Patient was recently evaluated by Dr. Colvin, Records Management Coordinator, for the dyspnea that patient had been experiencing. Per that office oxygen levels did drop with activity and it was felt that patient could benefit from oxygen supplement. She was started on Torsemide 10 mg daily to see if this helps with the dyspnea and edema that she had been experiencing. Patient does feel the medication does help with the dyspnea and edema that she was having. This should be continued and follow up with Dr. Colvin as sheduled. Feb, Acute right-sided thoracic back pain (ICD-10 - M54.6) Patient is reporting acute right sided thoracic back pain and rib pain. Denies any injury to the area. She does have known osteoporosis and does get Prolia injections every 6 months. Her next dose is due in March. Patient does have point tenderness in the right upper thoracic area that radiates around to the ribs on the right side. Feb, Rib pain on right side (ICD-10 - R07.81) Acute onset of right sided rib pain. Denies injury. Pain upon palpation. Patient is going to see pulmonogist Feb, Dyspnea on exertion (ICD-10 - R06.09) Referral initiated to Dr. Christina, Cv/Cvn Cv Tsc System Operator [facility] Other 06-15-2022 Evaluation note* Encounter Date Diagnosis Assessment Notes Treatment Notes Treatment Clinical Notes Jan, Restless legs syndrome (ICD-10 - G25.81) [facility] 05-25-2022 Evaluation note* Encounter Date Diagnosis Assessment Notes Treatment Notes Treatment Clinical Notes December, COPD (chronic obstructive pulmonary disease) (ICD-10 - J44.9) [facility] 04-26-2022 Evaluation note* Encounter Date Diagnosis Assessment Notes Treatment Notes Treatment Clinical Notes Nov, Osteoporosis (ICD-10 - M81.0) Patient is to continue with prolia injections every 6 months as scheduled. Calcium levels are within normal limits. Nov, Submandibular gland inflammation (ICD-10 - K11.20) Patient has finished the antibiotic provided. Still has some persisent swelling of the right submandibular gland even after the antibiotic. Some tenderness upon palpation. Will watch closely and patient to call if this should worsen Nov, COPD (chronic obstructive pulmonary disease) (ICD-10 - J44.9) Patient states her nebulizer machine is no longer working. She is need of a new nebulizer machine with tubing. She is going to order new nebulizer machine online as she can get it for just around $25 and will get these treatments restarted. Patient does not need any refill on medication at this time. Patient is to call this office if she needs any further assistance getting a new machine or refills. [facility] Other 04-07-2022 Evaluation note* Encounter Date Diagnosis Assessment Notes Treatment Notes Treatment Clinical Notes Nov, Hypertension (ICD-10 - I10) Blood pressure is slightly elevated upon check in. She was encouraged to follow with cardiology as scheduled and continue with the above medication. Nov, COPD (chronic obstructive pulmonary disease) (ICD-10 - J44.9) Review of chest x-ray and D-dimer labs, these were both unremarkable. She does continue to be short of breath especially with exertion. I did encourage her to continue with Trelegy and restart using the albuterol nebulizer treatments BID. If this persists, we will consider consulting with cardiology to rule out cardiac etiology for the shortness of breath. She is in agreement and voiced understanding. Nov, Submandibular gland inflammation (ICD-10 - K11.20) The patient does have notable swelling and tenderness at the left submandibular region as well as soreness with her bottom denture. I did prescribe the above oral antibiotic. We will continue to monitor. Medication e-scribed. [facility] Other 03-30-2022 Evaluation note* Encounter Date Diagnosis Assessment Notes Treatment Notes Treatment Clinical Notes Oct, Hypertension (ICD-10 - I10) Blood pressure was WNL upon check in. Therefore, patient is to continue with the above medication regimen. Oct, Peripheral arterial disease (ICD-10 - I73.9) Reviewed Dr. Jackson consult noted. Patient was cleared by vascular and no follow ups are needed at this time. Oct, Depression, unspecified depression type (ICD-10 - F32.9) Patient is to continue with the above medication. Oct, Restless legs syndrome (ICD-10 - G25.81) Patient is to continue with the above medication. Oct, SOB (shortness of breath) (ICD-10 - R06.02) Due to the patients recent travel history I am concerned of possible PE. Stat blood work and chest XR ordered for patient to have done today. Oct, Chest pain, unspecified type (ICD-10 - R07.9) In house EKG was normal. Oct, COPD (chronic obstructive pulmonary disease) (ICD-10 - J44.9) Chest XR ordered for patient to have done today. Patient is to continue with the above inhaler. Oct, Fungal infection (ICD-10 - B49) Refill provided of the above cream. Oct, Cough (ICD-10 - R05.9) Upon ausculation, the lungs sound clear. I did order a chest XR for patient to have done today. [facility] 02-23-2022 Evaluation note* Encounter Date Diagnosis Assessment Notes Treatment Notes Treatment Clinical Notes Sep, Osteoporosis (ICD-10 - M81.0) [facility] 02-22-2022 Evaluation note* Encounter Date Diagnosis Assessment Notes Treatment Notes Treatment Clinical Notes Sep, Restless legs syndrome (ICD-10 - G25.81) [facility] 02-10-2022 Evaluation note* Encounter Date Diagnosis Assessment Notes Treatment Notes Treatment Clinical Notes Sep, Osteoporosis (ICD-10 - M81.0) [facility] 10-14-2021 Evaluation note* Encounter Date Diagnosis Assessment Notes Treatment Notes Treatment Clinical Notes May, PAD (peripheral artery disease) (ICD-10 - I73.9) This patient had a community screening done for PAD which revealed mild disease. At rest her clinical peripheral pulse exam is normal. This should be managed conservatively and she is already taking an antiplatelet agent. I encouraged her to go for walks every day. There is no indication for any surgical intervention at this time. We will see her as needed in the future. [facility] Other 07-24-2012 History general Narrative - Reported* Type Description Date Medical History lipid panel- bar-[id number]-TSH-hemo globin A1c done 03-20-12 Medical History 05/14/12 CT of the abdomen and p eileen Britany Medical History DEXA scan done 04/03/13, 11/2018 Medical History Colonoscopy done 2006 Medical History Mammogram done in 2007 Medical History 08/06/13 Labs Medical History 06/07/11-pneumonia vaccine at [facility] Medical History 08/08/13, 08/24/15 WNL-mammogram at [facility] Medical History 09/15/15 Echocardiogram done at [facility] Medical History 01/2016- skin cancer removed fro m left bottom eye lid Medical History 09/12/16 mammogram Medical History sacral fracture Medical History hyperlipidemia Medical History HTN Medical History ischemic colitis Medical History 03/2021 community outreach vascu lar studies Medical History 03/2021 DEXA Surgical History appendectomy Surgical History hysterectomy Surgical History 2 ear surgeries Hospitalization History see above [facility] Evaluation [facility]No [facility] Other Evaluation [facility] Other Evaluation [facility] Other Evaluation noteNo assessment information available [facility] Work Phone: Evaluation note* Diagnosis Onset Date Resolution Status Apnea, sleep acute COPD (chronic obstructive pulmonary disease) acute [facility] Work Phone: Evaluation note* Author Aleksandr Olivo [facility] Authored November 15, 2023 12: 56pm The above note written by CHAZ Spicer acting as human recorder, note dictated by Dr.Brett Xie . [facility] Work Phone: Evaluation note* Diagnosis Benign essential hypertension- Primary Essential hypertension, benign Paroxysmal supraventricular tachycardia (CMS-HCC) Paroxysmal supraventricular tachycardia Mixed hyperlipidemia Former cigarette smoker Personal history of tobacco use, presenting hazards to health documented in this encounter [facility] Work Phone: Evaluation note* Author Selene Storey [facility] Authored September 19, 2024 1 :01pm The above note written by Kaiden WARE acting as human recorder, note dictated by Dr. Sheldon Xie. [facility] Work Phone: Evaluation note* Diagnosis Mixed conductive and sensorineural hearing loss of right ear with restricted hearing of left ear- Primary [facility] Diagnosis Mixed conductive and sensorineural hearing loss of right ear with restricted hearing of left ear- Primary [facility] Diagnosis Onset Date Resolution Status Admit Date Hyperlipidemia acute November 1:46pm Hypertension acute December 24, 2024 1:46pm Weight loss acute December 24 025 1:46pm [facility] Work Phone: History general [facility] - [facility] Other Hisniup general Narrative - [facility] Other Reason for referral (narrative)* Consultation (Routine) - Authorized Specialty Diagnoses / Procedures Referred By Contac t Referred To Contact Cardiology Diagnoses Paroxysmal supraventricular tachycardia ([facility]) Procedures Follow Up In Cardiology Ronnie Colvin MD [address] [place] [address] 2, [address] [address] Celestina Khalil MD [address] [place] [address] 2, [address] [address] Referral ID Status Reason Start Date Expiration Date V isits Requested Visits Authorized [id number] Authorized 02/09/2024 02/08/2025 1 1 [facility] Work Phone: Family History No Family History Records FoundUnknown Family Member Name Dates Details Family history of arterioscl erotic cardiovascular disease: Mother, Father(V17.49, Z82.49) Status:Active Relationship Condition Age at Onset Recorded Date/T angie Not Specified Coronary artery disease Unknown Unknown Family Member Name Dates Details Family history of arterioscl erotic cardiovascular disease: Mother, Father(V17.49, Z82.49) Status:Active Unknown Family Member Name Dates Details Family history of arterioscl erotic cardiovascular disease: Mother, Father(V17.49, Z82.49) Status:Active Relationship Condition Age at Onset Recorded Date/T angie Not Specified Coronary artery disease Unknown father Unknown Not Specified Unknown Relationship Condition Age at Onset Recorded Date/T angie Not Specified Coronary artery disease Unknown Unknown father Unknown Relationship Condition Age at Onset Recorded Date/T angie mother Coronary artery disease Unknown Unknown father Unknown Summary Purpose Advance Directives No Advanced Directives Records Found Advance Directive Response Recorded Date/ Time Advance Directives No October 30 10:35am Advance Directive Response Recorded Date/ Time Advance Directives No October 30 9:35am Reason for Referral Reason 10/30/23 @ 10:30am consult and treat Diagnosis 1 COPD (chronic obstru ctive pulmonary disease) (J44.9) Referral Organization [facility] [place] Referring Provider First Name Sheldon Referring Provider Last Name Anne-Marie Referring Provider Specialty Family Prac nino Referred Organization [facility] Pulmonary Dise ase Referred Provider Dre Looney Referred Address [address],[facility] [address],[place], [place],[address] Referred Provider Specialty Pulmonary Di mohsen Referral Priority Routine Referral Appointment Date 2023-10-30 General Notes Gabrielle Valero 023 03:15:11 PM >Received today and sent P2P. Patient has been scheduled Reason consult and treat wi [facility] Diagnosis 1 Restless legs syndro me (G25.81) Diagnosis 2 Foot fracture, right (S92.901A) Referral Organization [facility] [place] Referring Provider First Name Sheldon Referring Provider Last Name Anne-Marie Referring Provider Specialty Family Prac nino Referred Provider Specialty Vascular Patricio rosa Referral Priority Routine Reason 09/02/22 @ 10:00am consult and treat Diagnosis 1 Foot fracture, right (S92.901A) Referral Organization [facility] [place] Referring Provider First Name Sheldon Referring Provider Last Name Anne-Marie Referring Provider Specialty Family Prac nino Referred Organization [facility] Referred Provider Sammie Duran Referred Address [address] [facility] [place],[address] Referred Provider Specialty Nurse Amber [email or web address] Referral Priority Routine Referral Appointment Date 2022-09-02 General Notes Pallavi Olivo 09:15:42 AM >pt will be going through [facility]- [facility] pt will see a NUT SIFTER today 09/02/22 and request a full referral. I couldn't find the [facility] facility to send it myself Gabrielle Valero 09/02/2022 10:38:16 AM >Not a problem. It fixed and sent this P2P Gabrielle Valero 09/05/2022 10:47:49 AM >[facility] 10:03:07 AM >Telephone encounter was already sent by Sammie Duran Reason Patient is needing p ulmonary consult and treatment. Please call patient with appt date and time. Thanks. Diagnosis 1 COPD (chronic obstru ctive pulmonary disease) (J44.9) [facility] Referring Provider First Name Sheldon Referring Provider Last Name Anne-Marie Referring Provider Specialty [facility] nino Referred Organization Unknown Facility Referred Provider Elma Christina Referred Provider Specialty Pulmonary Cici connolly Referral Priority Routine Chief Complaint and Reason for Visit Chief Complaint M81.0 I10 E78.5 J44.9 R60.9 RO6.09 m81.0 Chief Complaint I10 E78.5 J44.9 R60. 9 RO6.09 m81.0 wt loss abd pain Chief Complaint I10 E78.5 J44.9 R60. 9 RO6.09 m81.0 wt loss abd pain R63.9 R10.9 E83.50 Chief Complaint R63.9 R10.9 E83.50 S99.921A M79.671 Chief Complaint S99.921A M79.671 Chief Complaint S99.921A M79.671 S92.351D J44.9 E78.5 I10 M81.0 Chief Complaint S99.921A M79.671 S92.351D J44.9 E78.5 I10 M81.0 S92.351D Chief Complaint J44.9 E78.5 I10 M81. 0 S92.351D S92.351D S92.351D Chief Complaint 1 Month Follow Up J44.[address] Sheldon Xie For Copd r06.00 e78.5 Chief Complaint J44.[address] Sheldon Xie For Copd r06.00 e78.5 Amb Documentation m54.32 Chief Complaint J44.[address] Sheldon Xie For Copd r06.00 e78.5 Amb Documentation m54.32 2 month f/u Dyspnea COPD Reason for Visit Apnea, sleep COPD (chronic obstructive pulmonary disease) Chief Complaint r06.00 e78.5 Amb Documentation m54.32 2 month f/u Dyspnea COPD Amb Documentation 6 week f/u Reason for Visit Apnea, sleep COPD (chronic obstructive pulmonary disease) COPD (chronic obstructive pulmonary disease) Depression Foot fracture, right Left hip pain Left sciatic nerve pain Lumbar degenerative disc disease Post-menopausal osteoporosis Chief Complaint r06.00 e78.5 Amb Documentation m54.32 2 month f/u Dyspnea COPD Amb Documentation 6 week f/u M81.0 - Age-related osteoporosis without current p 1 year follow up Reason for Visit Apnea, sleep COPD (chronic obstructive pulmonary disease) COPD (chronic obstructive pulmonary disease) Depression Foot fracture, right Left hip pain Left sciatic nerve pain Lumbar degenerative disc disease Post-menopausal osteoporosis Post-menopausal osteoporosis Chief Complaint r06.00 e78.5 Amb Documentation m54.32 2 month f/u Dyspnea COPD Amb Documentation 6 week f/u M81.0 - Age-related osteoporosis without current p 1 year follow up M54.32 M25.552 Reason for Visit Apnea, sleep COPD (chronic obstructive pulmonary disease) COPD (chronic obstructive pulmonary disease) Depression Foot fracture, right Left hip pain Left sciatic nerve pain Lumbar degenerative disc disease Post-menopausal osteoporosis Post-menopausal osteoporosis Chief Complaint e78.5 Amb Documentation m54.32 2 month f/u Dyspnea COPD Amb Documentation 6 week f/u M81.0 - Age-related osteoporosis without current p 1 year follow up M54.32 M25.552 G47.30 Reason for Visit Apnea, sleep COPD (chronic obstructive pulmonary disease) COPD (chronic obstructive pulmonary disease) Depression Foot fracture, right Left hip pain Left sciatic nerve pain Lumbar degenerative disc disease Post-menopausal osteoporosis Post-menopausal osteoporosis Chief Complaint e78.5 Amb Documentation m54.32 2 month f/u Dyspnea COPD Amb Documentation 6 week f/u M81.0 - Age-related osteoporosis without current p 1 year follow up M54.32 M25.552 G47.30 G47.30 1 month f/u Reason for Visit Apnea, sleep COPD (chronic obstructive pulmonary disease) COPD (chronic obstructive pulmonary disease) Depression Foot fracture, right Left hip pain Left sciatic nerve pain Lumbar degenerative disc disease Post-menopausal osteoporosis Post-menopausal osteoporosis COPD (chronic obstructive pulmonary disease) Depression Left hip pain Osteoporosis Chief Complaint Amb Documentation 6 week f/u M81.0 - Age-related osteoporosis without current p 1 year follow up M54.32 M25.552 G47.30 G47.30 1 month f/u CEA: 3 mo f/u COPD lbp leg weakness follow up PT per brk Reason for Visit COPD (chronic obstru ctive pulmonary disease) Depression Foot fracture, right Left hip pain Left sciatic nerve pain Lumbar degenerative disc disease Post-menopausal osteoporosis Post-menopausal osteoporosis COPD (chronic obstructive pulmonary disease) Depression Left hip pain Osteoporosis COPD (chronic obstructive pulmonary disease) Restless leg syndrome GERD (gastroesophageal reflux disease) Left hip pain Leg weakness Chief Complaint G47.30 1 month f/u CEA: 3 mo f/u COPD follow up PT per brk lbp leg weakness Reason for Visit COPD (chronic obstru ctive pulmonary disease) Depression Left hip pain Osteoporosis COPD (chronic obstructive pulmonary disease) Restless leg syndrome GERD (gastroesophageal reflux disease) Left hip pain Leg weakness Chief Complaint CEA: 3 mo f/u COPD follow up PT per brk lbp leg weakness 3 month f/u Reason for Visit COPD (chronic obstru ctive pulmonary disease) GERD (gastroesophageal reflux disease) Left hip pain Leg weakness Eustachian tube dysfunction Fatigue Hearing impaired Hyperlipidemia Hypertension Left hip pain Chief Complaint lbp leg weakness 3 month f/u E78.5 Reason for Visit Eustachian tube dysf unction Fatigue Hearing impaired Hyperlipidemia Hypertension Left hip pain Chief Complaint lbp leg weakness 3 month f/u E78.5 Neck fullness? lab review/wanted sooner appt Reason for Visit Eustachian tube dysf unction Fatigue Hearing impaired Hyperlipidemia Hypertension Left hip pain Hyperlipidemia Neck fullness Cough Chief Complaint lbp leg weakness 3 month f/u E78.5 Neck fullness? lab review/wanted sooner appt r05.9 Reason for Visit Eustachian tube dysf unction Fatigue Hearing impaired Hyperlipidemia Hypertension Left hip pain Hyperlipidemia Neck fullness Cough Chief Complaint 3 month f/u E78.5 Neck fullness? lab review/wanted sooner appt r05.9 6 MONTHS Reason for Visit Eustachian tube dysf unction Fatigue Hearing impaired Hyperlipidemia Hypertension Left hip pain Hyperlipidemia Neck fullness Cough Post-menopausal osteoporosis Chief Complaint E78.5 Neck fullness? lab review/wanted sooner appt r05.9 6 MONTHS 3 month f/u Reason for Visit Hyperlipidemia Neck fullness Cough Post-menopausal osteoporosis COPD (chronic obstructive pulmonary disease) Fall Left lumbar pain Needs flu shot Rib pain on right side Chief Complaint E78.5 Neck fullness? lab review/wanted sooner appt r05.9 6 MONTHS 3 month f/u W19.XXXA M54.50 R07.81 Reason for Visit Hyperlipidemia Neck fullness Cough Post-menopausal osteoporosis COPD (chronic obstructive pulmonary disease) Fall Left lumbar pain Needs flu shot Rib pain on right side Chief Complaint Admit Date E78.5 May 15, 2024 9:01am Neck fullness? lab review/wanted sooner appt May 16, 2024 8:24am r05.9 May 16, 2024 10:07am 6 MONTHS June 06, 2024 3 :57pm 3 month f/u June 18, 2024 1 2:18pm W19.XXXA M54.50 R07.81 June 18 1:32pm CEA: 6 mo f/u COPD July 09, 2024 2:50pm Reason for Visit Admit Date Hyperlipidemia May 16, 2024 8:24am Neck fullness May 16, 2024 8:24am Cough May 16, 2024 8:24am Post-menopausal osteoporosis May 3:57pm COPD (chronic obstructive pulmonary dise ase) June 18, 2024 12:18pm Fall June 18, 2024 1 2:18pm Left lumbar pain June 18, 2024 1 2:18pm Needs flu shot June 18, 2024 1 2:18pm Rib pain on right side June 18 12:18pm COPD (chronic obstructive pulmonary dise ase) July 09, 2024 2:50pm GERD (gastroesophageal reflux disease) N ovember 2023 2:50pm Chief Complaint Admit Date CEA: 6 mo f/u COPD July 09, 2024 2:50pm 3 month f/u September 19, 2024 1 2:22pm Reason for Visit Admit Date COPD (chronic obstructive pulmonary dise ase) July 09, 2024 2:50pm GERD (gastroesophageal reflux disease) N ovember 2023 2:50pm COPD (chronic obstructive pulmonary dise ase) September 19, 2024 12:22pm Glaucoma September 19, 2024 1 2:22pm Weight loss September 19, 2024 1 2:22pm Chief Complaint Admit Date 3 month f/u September 19, 2024 1 2:22pm see orders November 14, 2024 9:1 7am Reason for Visit Admit Date COPD (chronic obstructive pulmonary dise ase) September 19, 2024 12:22pm Left sciatic nerve pain September 19 12:22pm Glaucoma September 19, 2024 1 2:22pm Weight loss September 19, 2024 1 2:22pm Chief Complaint Admit Date see orders November 14, 2024 9:1 7am review labs December 24, 2024 1:4 6pm Reason for Visit Admit Date Hyperlipidemia December 24, 2024 1:4 6pm Hypertension December 24, 2024 1:4 6pm Weight loss December 24, 2024 1:4 6pm Additional Source Comments INFORMATION SOURCE (unrecogn ized section and content) DATE CREATED AUTHOR 02/09/2022 [employer] DATE CREATED AUTHOR AUTHOR'S ORGANIZ ATION 01/11/2023 [facility] DATE CREATED AUTHOR AUTHOR'S ORGANIZ ATION 10/01/2023 [facility] DATE CREATED AUTHOR AUTHOR'S ORGANIZ ATION 11/16/2024 [facility] DATE CREATED AUTHOR AUTHOR'S ORGANIZ ATION 01/04/2025 [facility] EPIC DATE CREATED AUTHOR AUTHOR'S ORGANIZ ATION 02/06/2025 [facility] DATE CREATED AUTHOR AUTHOR'S ORGANIZ ATION 02/11/2025 [facility] REASON FOR VISIT (unrecogniz ed section and content) Reason Comments Annual Exam Care Teams (unrecognized sec tion and content) Team Status: Active Member Role Status Dates Sheldon Xie DO Primary Care Provider Active Team Status: Inactive Member Role Status Dates Sheldon Xie DO Primary Care Provide r, Attending Provider Active Start: September 19, 2024 End: September 19, 2024 Team Status: Inactive Member Role Status Dates Sheldon Xie DO Primary Care Provide r, Attending Provider Active Start: November 14, 2024 End: November 14, 2024 Team Status: Active Member Role Status Dates Sheldon Xie DO Primary Care Provider Active Sta rt: July 08, 2024 HIEU Richards Attending Provider Active Start: July 08, 2024 Team Status: Inactive Member Role Status Dates Sheldon Xie DO Primary Care Provider Active Sta rt: July 09, 2024 End: July 09, 2024 Dre Looney MD Attending Provider Active Start: July 09, 2024 End: July 09, 2024 Team Status: Inactive Member Role Status Dates Sheldon Kuns , DO Primary Care Provide r, Attending Provider Active Start: March 04, 2024 End: March 04, 2024 Team Status: Inactive Member Role Status Betzy Xie DO Primary Care Provide r, Attending Provider Active Start: March 19, 2024 End: March 19, 2024 Team Status: Inactive Member Role Status Betyz Xie DO Primary Care Provide r, Attending Provider Active Start: May 15, 2024 End: May 15, 2024 Team Status: Active Member Role Status Betzy Xie DO Primary Care Provider Active Sta rt: November 06, 2023 CHAZ Castañeda Attending Provider Active Start: November 06, 2023 Team Status: Inactive Member Role Status Betzy Xie DO Primary Care Provide r, Attending Provider Active Start: November 15, 2023 End: November 15, 2023 Team Status: Inactive Member Role Status Betzy Xie DO Primary Care Provider Active Sta rt: November 16, 2023 End: November 16, 2023 HIEU Richards Attending Provider Active Start: November 16, 2023 End: November 16, 2023 Team Status: Inactive Member Role Status Betzy Xie DO Primary Care Provide r, Attending Provider Active Start: November 20, 2023 End: November 20, 2023 Team Status: Inactive Member Role Status Betzy Xie DO Primary Care Provider Active Sta rt: December 05, 2023 End: December 05, 2023 Dre Looney MD Attending Provider Active Start: December 05, 2023 End: December 05, 2023 Team Status: Active Member Role Status Betzy Xie DO Primary Care Provider Active Sta rt: December 06, 2023 Dre Looney MD Attending Pr ovider, Other Provider Active Start: December 06, 2023 Team Status: Inactive Member Role Status Betzy Xie DO Primary Care Provide r, Attending Provider Active Start: December 14, 2023 End: December 14, 2023 Team Status: Active Member Role Status Betzy Xie DO Primary Care Provide r, Attending Provider Active Start: December 20, 2023 Team Status: Inactive Member Role Status Betzy Xie DO Primary Care Provider Active Sta rt: January 09, 2024 End: January 09, 2024 Dre Looney MD Attending Provider Active Start: January 09, 2024 End: January 09, 2024 Team Status: Active Member Role Status Betzy Xie DO Primary Care Provide r, Attending Provider Active Start: January 25, 2024 Team Status: Inactive Member Role Status Betzy Xie DO Primary Care Provide r, Attending Provider Active Start: January 29, 2024 End: January 29, 2024 Team Status: Inactive Member Role Status Betzy Xie DO Primary Care Provider, Attending Provi jessica Active Team Status: Inactive Member Role Status Betzy Xie DO Primary Care Provider Active HIEU Richards Attending Provider Active Team Status: Inactive Member Role Status Betzy Xie DO Primary Care Provider, Attending Provi jessica Active HIEU Richards Referring Provider Active Team Status: Inactive Member Role Status Betzy Xie DO Attending Provider Active Start: July 04, 2023 End: July 04, 2023 Team Status: Inactive Member Role Status Betzy Xie DO Primary Care Provide r, Attending Provider Active Start: August 07, 2023 End: August 07, 2023 Team Status: Inactive Member Role Status Betzy Looney MD Attending Provider Active Start: August 09, 2023 End: August 09, 2023 Team Status: Inactive Member Role Status Betzy Xie DO Primary Care Provider Active Sta rt: September 01, 2023 End: September 01, 2023 Dre Looney MD Attending Provider Active Start: September 01, 2023 End: September 01, 2023 Team Status: Inactive Member Role Status Betzy Xie DO Primary Care Provide r, Attending Provider Active Start: September 26, 2023 End: September 26, 2023 Team Status: Active Member Role Status Betzy Xie DO Primary Care Provider Active Sta rt: October 05, 2023 Mercy Salazar LPN Attending Provider Active St art: October 05, 2023 Team Status: Inactive Member Role Status Betzy Xie DO Primary Care Provide r, Attending Provider Active Start: October 10, 2023 End: October 10, 2023 Team Status: Inactive Member Role Status Betzy Xie DO Primary Care Provider Active Sta rt: October 17, 2023 End: October 17, 2023 Dre Looney MD Attending Provider Active Start: October 17, 2023 End: October 17, 2023 Team Status: Active Member Role Status Dates Sheldon Xie DO Primary Care Provider Active Sta rt: November 16, 2023 HIEU Richards Attending Provider Active Start: November 16, 2023 Die Casting Machine Setter Relationship Specialty Start Date End Date Sheldon Xie DO PCP - General 08/28/99 Team Status: Inactive Member Role Status Dates Sheldon Xie DO Primary Care Provide r, Attending Provider Active Start: May 16, 2024 End: May 16, 2024 Team Status: Inactive Member Role Status Dates Sheldon Xie DO Primary Care Provider Active Sta rt: June 06, 2024 End: June 06, 2024 HIEU Richards Attending Provider Active Start: June 06, 2024 End: June 06, 2024 Team Status: Inactive Member Role Status Dates Sheldon Xie DO Primary Care Provide r, Attending Provider Active Start: June 18, 2024 End: June 18, 2024 Die Casting Machine Setter Relationship Specialty Start Date End Date Sheldon Xie DO [address] [place] [id number] PCP - General Family Medicine 11/13/24 Team Status: Inactive Member Role Status Dates Sheldon Xie DO Primary Care Provide r, Attending Provider Active Start: December 24, 2024 End: December 24, 2024 Die Casting Machine Setter Relationship Specialty Start Date End Date Sheldon Xie DO [address] [place] [address] PCP - General Family Medicine 12/26/24 Goals (unrecognized section and content) Goals may be documented in a n alternate section FOR RECORDS PERTAINING TO PATIENTS WHO ARE OR HAVE BEEN ENROLLED IN A CHEMICAL DEPENDENCY/SUBSTANCEABUSE PROGRAM, SOME INFORMATION MAY BE OMITTED. This clinical summary was aggregated from multiple sources. Caution should be exercised in using it in the provision of clinical care. This summary normalizes information from multiple sources, and as a consequence, information in this document may materially change the coding, format and clinical context of patient data. In addition, data may be omitted in some cases. CLINICAL DECISIONS SHOULD BE BASED ON THE PRIMARY CLINICAL RECORDS. [facility] provides no warranty or guarantee of the accuracy or completeness of information in this document.
[2025-02-13 08:31] LABS: Basophils Absolute Auto 0.1 10^3/uL (0.0-0.1); Basophils Percent Auto 0.5 % (0.2-2.0); Eosinophils Absolute Auto 0.3 10^3/uL (0.0-0.7); Eosinophils Percent Auto 2.5 % (0.9-7.0); Hematocrit 37.2 % (36.0-48.0); Hemoglobin 12.2 g/dL (12.0-16.0); Immature Granulocytes Abs Auto 0.04 10^3/uL (0.00-0.03); Immature Granulocytes Pct Auto 0.4 % (0.0-0.5); Lymphocytes Percent Auto 17.2 % (20.5-60.0); Mean Corpuscular HGB Conc 32.8 g/dL (29.9-35.2); Mean Corpuscular Hemoglobin 31.3 pg (26.7-34.0); Mean Corpuscular Volume 95.4 fL (81.0-99.0); Mean Platelet Volume 9.7 fL (9.5-13.5); Monocytes Absolute Auto 0.8 10^3/uL (0.3-0.8); Monocytes Percent Auto 6.7 % (1.7-12.0); Neutrophils Absolute Auto 8.3 10^3/uL (1.4-6.5); Neutrophils Percent Auto 72.7 % (43.0-75.0); Platelet Count 305 10^3/uL (150-450); Red Cell Distribution Width 15.3 % (11.0-15.0); White Blood Count 11.4 10^3/uL (4.0-11.0)
[2025-02-13 09:55] LABS: Alanine Aminotransferase 33 U/L (14-59); Albumin Globulin Ratio 0.8; Albumin Level 2.8 g/dL (3.4-5.0); Alkaline Phosphatase 67 U/L (46-116); Anion Gap 8.5; Aspartate Amino Transferase 26 U/L (15-37); Bilirubin Total 0.4 mg/dL (0.2-1.0); Calcium 9.4 mg/dL (8.5-10.1); Carbon Dioxide 35.3 mmol/L (21.0-32.0); Chloride 103 mmol/L (98-107); Chol HDL Ratio 2.7; Cholesterol 181 mg/dL (<=200); Estimated GFR (African America >60 (>=60 mL/min/1.73m^2); Estimated GFR (Non-African Ame >60 (>=60 mL/min/1.73m^2); Globulin 3.7 g/dL; Glucose 80 mg/dL (74-106); HDL Cholesterol 67 mg/dL (40-60); Potassium 3.8 mmol/L (3.5-5.1); Sodium 143 mmol/L (136-145); Total Protein 6.5 g/dL (6.4-8.2); Triglycerides 118 mg/dL (<=150); VLDL CHOLESTEROL 23.6 mg/dL
== END 2025-02-13 07:40 | disposition home or self-care (01) ==
LOC: LAB 07:43
PROVIDERS: PCP Family Medicine; Visit Provider Family Medicine
DX: E78.5 Hyperlipidemia, unspecified (principal); J44.9 Chronic obstructive pulmonary disease, unspecified; I50.9 Heart failure, unspecified; G47.30 Sleep apnea, unspecified; J18.9 Pneumonia, unspecified organism
CPT/HCPCS: 36415; 71046; 80053; 80061; 84443; 85025

== ENCOUNTER 2025-02-27 15:32 | Outpatient (OUT) | payer MEDICARE, SELFPAY ==
--- OUTSIDE RECORDS SUMMARY | 2025-02-27 14:30 | XMS_ITS | Encounter Summary ---
Author Organization [facility] Address [address] [place] [address] Care Team Providers Care Boring Machine Operator Helper Name Role Phone Geo Montejo Primary Care Provider Reason for Referral * Cardiac Stress Testing (Routine) - Pending Review Specialty Diagnoses / Procedures Referred By Eulogio t Referred To Contact Cardiology Diagnoses Paroxysmal supraventricular tachycardia Tachycardia Procedures Holter monitor - 48 hour Iam Jiménez MD [address] [place] [address] Phone: tel: fax: Referral ID Status Reason Start Date Expiration Date V isits Requested Visits Authorized [id number] Pending Review 02/27/2025 02/27/2026 1 1 Encounter Details Date Type Department Care Team (Late st Contact Info) Description 02/27/2025 2:30 PM EDT Office Visit [facility] at [facility] [address] [place] [address] Iam Jiménez MD [address] [place] [address] Paroxysmal supraventricular tachycardia (Primary Dx); [...] original note were not included. Cardiovascular Medicine [facility] SUBJECTIVE Ebony Hobson is a 84 [...] edema, dizziness/LH, palpitations *She previous saw a lining feller blindstitch at [facility]. She would like to transfer her care to [place] [facility]. Discharge summary: Hospital Course: Patient admitted [...] RTC in 3-4 weeks with MELBA or technology sales specialist to review labs, 48 hr Holter and echocardiogram Iam Jiménez MD, MPH, [facility], [facility], [facility] Interventional Cardiology Pager Email: [email or web address] [1] Patient Active Problem List Diagnosis Benign [...] each nostril two timesdaily., Disp: , Rfl: wupxlxoecvu-dlngiclpe-zjwzfnfk 100-62.5-25 mcg blister with device, Inhale 1 [...] Description 03/20/2025 2:00 PM EDT Office Visit [facility] [address] [place] [address] Jennifer Marroquni, BOX [address] [place] [phone] Scheduled Orders Name Type Priority Associated Diagnoses [...] beats documented in this encounter Care Teams Boring Machine Operator Helper Relationship Specialty Start Date End Date Geo Montejo DO [facility] [place] [phone] PCP - General Family Medicine 02/05/25 documented as of this encounter
--- OUTSIDE RECORDS SUMMARY | 2025-02-27 15:36 | XMS_ITS | Encounter Summary ---
Author Organization [facility] Address [address] [place] [address] Phone Care Team Providers Care Software Developer Mid Level Name Role Phone Geo Montejo DO Primary Care Provider [phone] Encounter Details Date Type Department Care Team (Late st Contact Info) Description 12/20/2023 Scanned Document [facility] [address] [place] [address] Scanning, Generic Provider Social History Tobacco Use [...] on filedocumented in this encounter Care Teams Software Developer Mid Level Relationship Specialty Start Date End Date Geo Montejo DO PCP - General 08/28/99 documented as of this encounter
--- OUTSIDE RECORDS SUMMARY | 2025-02-27 15:36 | XMS_ITS | Clinical Summary ---
Author Organization [facility] Address [address] [place] [address] Care Team Providers Care Armature Winder Helper Repair Name Role Phone Geo Montejo DO Primary Care Provider [phone] Allergies Active Allergy Reactions Criticality Noted Date Comments Codeine Nausea Only Medium 08/31/2023 Medications albuterol 2.5 mg /3 mL (0.083 %) nebulizer solution Take 2.5 mg by nebulization three times daily. 11/15/19 24 Active aspirin 81 mg EC tablet Take 81 mg by mouth in the morning. Active citalopram (CeleXA) 10 mg tablet Take 1 tablet by mouth in the morning. 02/11/20 24 Active clonazePAM (KlonoPIN) 0.5 mg tablet Take 0.5 mg by mouth in the morning. Active fluticasone (Flonase) 50 mcg/actuation nasal spray Administer 2 sprays into each nostril two times daily. Active lisinopril 2.5 mg tablet Take 2.5 mg by mouth in the morning. 12/10/19 25 Active potassium chloride CR (Klor-Con) 10 mEq ER tablet Take 20 mEq by mouth in the morning. Active pravastatin (Pravachol) 40 mg tablet Take 40 mg by mouth at bedtime. 12/21/19 25 026 Active torsemide (Demadex) 10 mg tablet Take 10 mg by mouth in the morning. 05/21/20 24 Active fluticasone-u meclidin-kiarra nter 100-62.5-25 mcg blister with device Inhale 1 puff in the morning. Active metoprolol tartrate (Lopressor) 25 mg tablet Take 25 mg by mouth two times daily. Active amoxicillin (Amoxil) 875 mg tablet Take 875 mg by mouth two times daily. Active predniSONE (Deltasone) 10 mg tablet Take 10 mg by mouth in the morning. Active metoprolol tartrate (Lopressor) 25 mg tablet Take 25 mg by mouth Twice daily at 6am and 6pm. 02/01/20 25 025 Discontinued carvedilol (Coreg) 6.25 mg tablet Take 6.25 mg by mouth twice a day. 12/10/19 25 025 Discontinued(M ed List Cleanup) Active Problems Problem Noted Date Diagnosed Date Former cigarette smoker 02/09/2024 Benign essential hypertension 08/31/2023 Chest pain 08/31/2023 COPD (chronic obstructive pulmonary disease) 11/2023 Dyspnea 08/31/2023 Edema 08/31/2023 Fainting 08/31/2023 Hyperlipidemia 08/31/2023 Paroxysmal supraventricular tachycardia 08/31/19 24 Encounters Date Type Department Care Team Description 02/27/2025 2:30 PM EDT Office Visit [facility] [address] [place] [address] Iam Jiménez MD Paroxysmal supraventricular tachycardia (Primary Dx); Chronic diastolic heart failure (CMS/HCC); Pulmonary hypertension (CMS/HCC); Mixed hyperlipidemia; Tachycardia; PVC (premature ventricular contraction) 02/06/2025 3:00 PM EDT Office Visit [facility] [address] [place] [facility] [place] [address] Jennifer Marroquin CNP Pulmonary hypertension (CMS/HCC) (Primary Dx); Chronic diastolic heart failure (CMS/HCC); Paroxysmal supraventricular tachycardia; Benign hypertensive heart disease with heart failure (CMS/HCC); Mixed hyperlipidemia 01/31/2025 Abstract [facility] [address] [place] [address] Geo Montejo DO from Last 3 Months Family History Relation Name Status Comments Father Mother Social History Tobacco Use Types Packs/Day Years Used Date Smoking Tobacco: Former Cigarettes Passive Smoke Exposure: Past Smokeless Tobacco: Never Tobacco Cessation:Counseling Given: Not [...] Mass Index 18.94 02/27/2025 2:44 PM EDT Plan of Treatment Upcoming Encounters Date Type Department Care Team (Late st Contact Info) Description 03/20/2025 2:00 PM EDT Office Visit [facility] [address] [place] [address] Jennifer Marroquin, WORD PROCESSING MACHINE OPERATOR [address] [place] [address] Health Maintenance Due Date Last Done Comments Medicare Annual Wellness (AWV) 1940 Depression Screening 1953 Adult Tetanus 1963 Fall Risk Screening 2006 Pneumococcal Vaccine: 50+ Years (2 of 2 - PPSV23, PCV20, or PCV21) 02/04/2019 12/10/2018 COVID-19 Vaccine ( season) 2024 06/01/2021, 10/17/2020, 09/26/2020 Influenza Vaccine (#1) 2025 , 05/30/2023, 05/24/2022, Additional history exists Zoster Vaccines Completed 08/16/2019, 02/2019, 06/06/2013 HIB Vaccines Aged Out No longer eligi ble based on patient's age to complete this topic HPV Vaccines Aged Out No longer eligi ble based on patient's age to complete this topic IPV Vaccines Aged Out No longer eligi ble based on patient's age to complete this topic Meningococcal B Vaccine Aged Out No l onger eligible based on patient's age to complete this topic Meningococcal Vaccine Aged Out No julisa mitchel eligible based on patient's age to complete this topic Rotavirus Vaccines Aged Out No longer eligible based on patient's age to complete this topic Insurance [employer] MEDICARE [place] [id number] Care Teams Armature Winder Helper Repair Relationship Specialty Start Date End Date Geo Montejo DO [address] [place] [address] PCP - General Family Medicine 02/05/25
--- OUTSIDE RECORDS SUMMARY | 2025-02-27 15:36 | XMS_ITS | Encounter Summary ---
Author Organization [facility] Address [address] [place] [address] Phone Care Team Providers Care Tail Worker Name Role Phone Geo Montejo DO Primary Care Provider [phone] Encounter Details Date Type Department Care Team ([facility] Contact Info) Description 11/24/2021 Orders Only [facility] [address] [place] [address] Conversion, Onbase Social History Tobacco Use Types Packs/Day Years Used Date Smoking Tobacco: Never Assessed Comments Unknown Sex and Gender Information Value Date Recorded Sex Assigned at Not on file Legal Sex Female 8:51 PM EST Gender Identity Not on file Sexual Orientation Not on file documented as of this encounter Plan of Treatment Scheduled Orders Name Type Priority Associated Diagnoses Orde r Schedule OUTSIDE LAB SCAN Lab Ordered: 11/24/2021 documented as of this encounter Visit Diagnoses Not on filedocumented in this encounter Care Teams Tail Worker Relationship Specialty Start Date End Date Geo Montejo DO PCP - General 08/28/99 documented as of this encounter
--- OUTSIDE RECORDS SUMMARY | 2025-02-27 15:36 | XMS_ITS | Encounter Summary ---
Author Organization [facility] Address [address] [place] [address] Phone Care Team Providers Care Consulting Practice Manager Name Role Phone LongjagdishMandytt Yakov GASPAR Primary Care Provider [phone] Reason for Visit * Reason Comments Med Refill Encounter Details Date Type Department Care Team ([facility] st Contact Info) Description 02/04/2025 Refill [place] [address] [facility] [address] [place] [address] Celestina Khalil MD [address] [facility] 2, [facility] [address] [place] [address] Edema, unspecified type Social History Tobacco Use Types Packs/Day Years Used Date Smoking Tobacco: Former Cigarettes Smokeless Tobacco: Never Alcohol Use Standard Drinks/Week Comments Yes 0 (1 standard drink = 0.6 oz pur e alcohol) couple times a year Comments Unknown Sex and Gender Information Value Date Recorded Sex Assigned at Not on file Legal Sex Female 8:51 PM EST Gender Identity Not on file Sexual Orientation Not on file documented as of this encounter Miscellaneous Notes * Telephone Encounter - Kathi Benton - 02/04/2025 3:21 PM EDT Pt no longer following [facility] documented in this encounter Plan of Treatment Not on file documented as of this encounter Visit Diagnoses Diagnosis Edema, unspecified type documented in this encounter Additional Health Concerns Assessment Noted Time A fall risk assessment has been complete d for the patient 02/09/2024 1:16 PM EDT documented as of this encounter Care Teams Consulting Practice Manager Relationship Specialty Start Date End Date Geo Montejo DO PCP - General 08/28/99 documented as of this encounter
--- OUTSIDE RECORDS SUMMARY | 2025-02-27 15:36 | XMS_ITS | Encounter Summary ---
Author Organization [facility] Address [address] [place] [address] Phone Care Team Providers Care Product Manager Financial Services Name Role Phone Geo Montejo DO Primary Care Provider [phone] Encounter Details Date Type Department Care Team (Late st Contact Info) Description 01/09/2024 Scanned Document [facility] [address] Virtual [place] [address] Scanning, Generic Provider Social History Tobacco Use [...] on filedocumented in this encounter Care Teams Product Manager Financial Services Relationship Specialty Start Date End Date Geo Montejo DO PCP - General 08/28/99 documented as of this encounter
--- OUTSIDE RECORDS SUMMARY | 2025-02-27 15:36 | XMS_ITS | Clinical Summary ---
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
--- OUTSIDE RECORDS SUMMARY | 2025-02-27 15:36 | XMS_ITS | Encounter Summary ---
Author Organization [facility] Address [address] [place] [address] Care Team Providers Care Zinc Plating Machine Operator Name Role Phone Geo Montejo DO Primary Care Provider [phone] Encounter Details Date Type Department Care Team (Late st Contact Info) Description 09/20/2024 Abstract [facility] [address] [place] [address] Adenike Koch, [facility] [address] [place] [address] Social History Tobacco Use Types Packs/Day Years [...] on filedocumented in this encounter Care Teams Zinc Plating Machine Operator Relationship Specialty Start Date End Date Geo Montejo DO [address] [place] [address] PCP - General Family Medicine 12/26/24 documented as of this encounter
--- OUTSIDE RECORDS SUMMARY | 2025-02-27 15:36 | XMS_ITS | Encounter Summary ---
Author Organization [facility] Address [address] [place] [address] Phone Care Team Providers Care Jordan Man Name Role Phone Geo Montejo DO Primary Care Provider [phone] Encounter Details Date Type Department Care Team ([facility] Contact Info) Description 02/04/2022 Orders Only [facility] [address] [place] [address] Conversion, Onbase Social History Tobacco Use Types [...] on filedocumented in this encounter Care Teams Jordan Man Relationship Specialty Start Date End Date Geo Montejo DO PCP - General 08/28/99 documented as of this encounter
--- OUTSIDE RECORDS SUMMARY | 2025-02-27 15:36 | XMS_ITS | Clinical Summary ---
Author Organization [facility] Address [address] [place] [address] Phone Care Team Providers Care Tuna Purse Seiner Name Role Phone Geo Montejo DO Primary Care Provider [phone] Allergies Active Allergy Reactions Criticality Noted Date [...] mEq) by mouth once daily. Active vit B-P-kztfaz-zinc-lut ein (Eye Multivit-Lutein,C-E -Cu-Zn,) 226 mg-90 mg-2 [...] Encounters Date Type Department Care Team Description 02/04/[address] [address] Celestina Khalil MD Edema, unspecified type 01/22/2025 Scanned Document [facility] [address] [place] [address] Scanning, Generic Provider 12/19/2024 Refill [facility] [address] [phone] Ronnie Amin MD Hyperlipidemia, unspecified hyperlipidemia type 12/09/2024 Refill [facility] [address] [address] Ronnie Amin MD Benign essential hypertension; [...] 02/09/2024 1:16 PM EDT Plan of Treatment Health Maintenance Due Date Last Done Comments Bone Density Scan 1940 Creatinine Level 1941 Lipid Panel 1940 Medicare Annual Wellness Visit (AWV) 1940 Potassium Level 1941 Diabetes Screening 1959 DTaP/Tdap/Td Vaccines (1 - Tdap) 1963 RSV High Risk: (Elderly (60+) or Population) (1 - 1-dose 75+ series) 2016 COVID-19 Vaccine ( season) 2024 06/01/2021, 10/17/2020, 09/26/2020 Echocardiogram 09/01/2024 09/01/2023 Irritable Bowel Syndrome Discontinued 10/13/2016 Pneumococcal Vaccine Completed 12/10/2018, 08/28/2018, 08/28/2017, Additional history exists Zoster Vaccines Completed 08/16/2019, 02/2019, 06/06/2013 Influenza Vaccine Completed 06/18/2024, , 05/24/2022, Additional history exists HIB Vaccines Aged Out No longer eligi ble based on patient's age to complete this topic HPV Vaccines (No Doses Required) Completed Hepatitis A Vaccines Aged Out No long [...] Procedure Name Priority Date/Time Associated Diagnosis Comments OUTSIDE IMAGING SCAN 01/22/2025 ECHOCARDIOGRAM 09/01/2023 COLONOSCOPY 10/13/2016 from Last 3 Months or Most Recently Relevant to Health Maintenance Results * OUTSIDE IMAGING SCAN (01/22/2025) Anatomical Region Laterality Modality Other Narrative 01/22/2025 Ordered by an unspecified provider. us Generic Provider Scanning OUTSIDE SCAN Final Result * ECHOCARDIOGRAM (09/01/2023) Narrative 09/01/2023 Ordered by an unspecified provider. us Generic Provider Scanning CV ECHO PROCEDURES Fin al Result * COLONOSCOPY (10/13/2016) Anatomical Region Laterality Modality Endoscopy Narrative 10/13/2016 Ordered by an unspecified provider. us Onbase Conversion ENDOSCOPY PROCEDURE ORDERABLES Final Result from Last 3 Months or Most Recently Relevant to Health Maintenance Insurance [facility] [employer] MEDICARE [facility] [employer] MEDICARE Care Teams Tuna Purse Seiner Relationship Specialty Start Date End Date Geo Montejo DO PCP - General 08/28/99
--- OUTSIDE RECORDS SUMMARY | 2025-02-27 15:36 | XMS_ITS | Encounter Summary ---
Author Organization [facility] Address [address] [place] [address] Phone Care Team Providers Care Sample Taker Operator Name Role Phone Geo Montejo DO Primary Care Provider [phone] Encounter Details Date Type Department Care Team ([facility] Contact Info) Description 01/22/2025 Scanned Document [facility] [address] [place] [address] Scanning, Generic Provider Social History Tobacco Use [...] on file documented as of this encounter Procedures Procedure Name Priority Date/Time Associated Diagnosis Comments OUTSIDE IMAGING SCAN 01/22/2025 documented in this encounter Results * OUTSIDE IMAGING SCAN (01/22/2025) Anatomical Region Laterality Modality Other Narrative 01/22/2025 Ordered by an unspecified provider. us Generic Provider Scanning OUTSIDE SCAN Final Result documented in this encounter Visit Diagnoses Not on filedocumented in this encounter Additional Health Concerns Assessment Noted Time A fall risk assessment has been complete d for the patient 02/09/2024 1:16 PM EDT documented as of this encounter Care Teams Sample Taker Operator Relationship Specialty Start Date End Date Geo Montejo DO PCP - General 08/28/99 documented as of this encounter
[2025-02-27 16:02] LABS: Hematocrit 38.5 % (36.0-48.0); Hemoglobin 12.4 g/dL (12.0-16.0); Immature Granulocytes Abs Auto 0.02 10^3/uL (0.00-0.03); Immature Granulocytes Pct Auto 0.2 % (0.0-0.5); Lymphocytes Absolute Auto 2.6 10^3/uL (1.2-3.8); Mean Corpuscular HGB Conc 32.2 g/dL (29.9-35.2); Mean Corpuscular Hemoglobin 31.4 pg (26.7-34.0); Mean Corpuscular Volume 97.5 fL (81.0-99.0); Platelet Count 389 10^3/uL (150-450); Red Blood Count 3.95 10^6/uL (4.20-5.40); White Blood Count 11.5 10^3/uL (4.0-11.0)
[2025-02-27 16:39] LABS: Alanine Aminotransferase 23 U/L (14-59); Albumin Globulin Ratio 0.8; Albumin Level 3.2 g/dL (3.4-5.0); Alkaline Phosphatase 74 U/L (46-116); Anion Gap 10.4; Aspartate Amino Transferase 22 U/L (15-37); Blood Urea Nitrogen 25.0 mg/dL (7.0-18.0); Calcium 10.0 mg/dL (8.5-10.1); Carbon Dioxide 34.3 mmol/L (21.0-32.0); Chloride 107 mmol/L (98-107); Estimated GFR (African America >60 (>=60 mL/min/1.73m^2); Estimated GFR (Non-African Ame >60 (>=60 mL/min/1.73m^2); Globulin 3.8 g/dL; Glucose 81 mg/dL (74-106); Potassium 3.7 mmol/L (3.5-5.1); Sodium 148 mmol/L (136-145); Total Protein 7.0 g/dL (6.4-8.2)
== END 2025-02-27 15:33 | disposition home or self-care (01) ==
LOC: LAB 15:34
PROVIDERS: PCP Family Medicine; Visit Provider Internal Medicine Interventional Cardiology
DX: I50.32 Chronic diastolic (congestive) heart failure (principal)
CPT/HCPCS: 36415; 80053; 85025

== ENCOUNTER 2025-03-13 10:25 | Outpatient (OUT) | payer MEDICARE, SELFPAY ==
--- OUTSIDE RECORDS SUMMARY | 2025-02-27 14:30 | XMS_ITS | Encounter Summary ---
Author Organization [facility] Address [address] [place] [address] Care Team Providers Care Annual Campaign Manager Name Role Phone Geo Montejo DO Primary Care Provider [phone] Reason for Referral * Cardiac Stress Testing (Routine) - Pending Review Specialty Diagnoses / Procedures Referred By Eulogio t Referred To Contact Cardiology Diagnoses Paroxysmal supraventricular tachycardia Tachycardia Procedures Holter monitor - 48 hour Iam Jiménez MD [address] [facility] [place] [address] Phone: tel: fax: Referral ID Status Reason Start Date Expiration Date V isits Requested Visits Authorized [id number] Pending Review 02/27/2025 02/27/2026 1 1 Encounter Details Date Type Department Care Team (Late st Contact Info) Description 02/27/2025 2:30 PM EDT Office Visit [facility] [address] [place] [phone] Iam Jiménez MD [address] [facility] [place] [address] Paroxysmal supraventricular tachycardia (Primary Dx); Chronic diastolic heart failure (CMS/HCC); Pulmonary hypertension (CMS/HCC); Mixed hyperlipidemia; Tachycardia; PVC (premature ventricular contraction) Social History Tobacco Use Types Packs/Day Years Used Date Smoking Tobacco: Former Cigarettes Passive Smoke Exposure: Past Smokeless Tobacco: Never Alcohol Use Standard Drinks/Week Comments Yes 0 (1 standard drink = 0.6 oz pur e alcohol) occasional Comments Unknown Sex and Gender Information Value Date Recorded Sex Assigned at Not on file Legal Sex Female 8:42 AM EDT Gender Identity Not on file Sexual Orientation Not on file documented as of this encounter Last Filed Vital Signs Vital Sign Reading Time Taken Comments Blood Pressure 135/66 02/27/2025 2:44 PM EDT Pulse 104 02/27/2025 2:44 PM EDT Temperature - - Respiratory Rate - - Oxygen Saturation 92% 02/27/2025 2:44 PM EDT Inhaled Oxygen Concentration - - Weight 44 kg (97 lb) 02/27/2025 2:44 PM EDT Height 152.4 cm (5') 02/27/2025 2:44 PM EDT Body Mass Index 18.94 02/27/2025 2:44 PM EDT documented in this encounter Progress Notes * Iam Jiménez MD - 02/27/2025 2:30 PM EDT Images from the original note were not included. Cardiovascular Medicine [facility] SUBJECTIVE Ebony Hobson is a 84 y.o. female here today per home health nurse, patient states the nurse told her, her pulse on the pulse ox was jumping all over the place the nurse wanted her checked for an irregular beat. Patient states she feels good, no cardiac complaints. Patient will be having and ECHO on March 13 . Test was ordered before she left the hospital. HPI Review of Systems Constitutional: Negative. 02/06/25 She was recently admitted for acute respiratory failure and was found to have PNA, sepsis, COPD exacerbation, acute HFpEF. She was diuresed and treated with antibiotics. She states she has been feeling better since she has been home. Breathing continues to improve. Her weight has been stable around 93lbs. She is currently on 1L of O2 via NC. Denies CP, orthopnea, PND, LE edema, dizziness/LH, palpitations *She previous saw a library media specialist at [facility]. She would like to transfer her care to [place] [facility]. Discharge summary: Hospital Course: Patient admitted for pneumonia and acute exacerbation of COPD resulting in sepsis,when I saw patient. Be having more respiratory distress than anticipated for the findings on x-ray,checked troponin and BNP, troponin was normal but BNP was elevated, patient was treated had episodeof hypotension troponins were repeated and is significantly elevated resulting in acute NSTEMI fromsepsis from the pneumonia, consultation to cardiology felt this further diuresis with bolus dosing of IV diuretics, she has had good urine output over the last 4 to 5 days, less output yesterday, changing to oral medications today the plan was to try to wean her off of supplemental oxygen but with her heart failure and chronic COPD and this acute pneumonia resulting in exacerbation, unlikely to get her off of supplemental oxygen for an extended period of time. See walk test. Patient medically stable otherwise vital signs stable and she is ambulating, so should be discharged to home in improving condition. Medications see list. Follow-up with PCP and pulmonology and should probably follow-upwith cardiology as well Update 02/27/2025: Here because home health aide noted irregularities in her pulse The patient is essentially asymptomatic except for SOB; No palpitations, minimal lightheadedness, no significant dizziness or syncope. No orthopnea, no paroxysmal current dyspnea. Problem List[1] Medical History[2] Family History[3] Social History[4] Allergies[5] OBJECTIVE Visit Vitals Smoking Status Former BP 135/66 (BP Location: Left arm, Patient Position: Sitting) Pulse 104 Ht 1.524 m (5') Wt 44 kg (97 lb) SpO2 92% BMI 18.94 kg/m² Medications: Current Medications[6] Physical Exam Vitals reviewed. Constitutional: Appearance: Normal appearance. She is normal weight. HENT: Head: Normocephalic and atraumatic. Right Ear: External ear normal. Left Ear: External ear normal. Eyes: Extraocular Movements: Extraocular movements intact. Conjunctiva/sclera: Conjunctivae normal. Pupils: Pupils are equal, round, and reactive to light. Neck: Vascular: No carotid bruit. Cardiovascular: Rate and Rhythm: Normal rate and regular rhythm. Pulses: Normal pulses. Heart sounds: Normal heart sounds. Comments: Diminished lower lobes; on O2 at 1 L via NC Pulmonary: Effort: Pulmonary effort is normal. Breath sounds: Normal breath sounds. Abdominal: General: Bowel sounds are normal. Palpations: Abdomen is soft. Musculoskeletal: Cervical back: Neck supple. Right lower leg: No edema. Left lower leg: No edema. Skin: General: Skin is warm and dry. Neurological: General: No focal deficit present. Mental Status: She is alert and oriented to person, place, and time. Psychiatric: Mood and Affect: Mood normal. Behavior: Behavior normal. Thought Content: Thought content normal. Judgment: Judgment normal. Labs: No results found for: EXTCMP , BMPR1A , CBCDIF , BNP , LASAP , RED No results found for any previous visit. No results found for: CHOL , TRIG , HDL , LDLDIRECT Testing/Procedures: ECHO 01/27/2025 CONCLUSION: 1. Mild concentric left ventricular hypertrophy with normal systolic function. LVEF is estimated at55 to 60%. 2. Mildly dilated right ventricle with moderately reduced systolic function. 3. Moderate to severe biatrial dilatation. 4. Mild to moderate mitral regurgitation. 5. Moderate to severe tricuspid regurgitation. 6. Moderately elevated right-sided pressures. RVSP is 54 mmHg. 7. No pericardial effusion. ECHO 09/01/2023 Cardiac cath 2019: near normal coronary arteries 12 lead EKG 02/27/2025 Sinus rhythm, occasional premature ventricular complexes and premature atrial complexes Right bundle branch block Abnormal ECG ASSESSMENT/PLAN: There are no diagnoses linked to this encounter. #Chronic diastolic heart failure #Pulmonary HTN -Recently admitted for acute HFpEF in the setting of also having PNA and COPD exacerbation -ECHO 01/27/25 noted preserved LVEF, RVSP 54 -Today she notes her breathing continues to improve every day since her recent discharge. -She appears compensated/euvolemic on exam. -Will continue torsemide 10mg daily. -Discussed importance of 2L daily fluid allowance, low Na+ diet, and daily weights. She states understanding. -Follow-up ECHO In 2-3 months. -She is currently on supplemental O2. Recommended follow-up with pulmonary or Dr. Montejo for management of O2. #HTN -Controlled, continue lopressor and lisinopril #Hx SVT -Noted to have frequent PACs during recent admission likely pulmonary issues contributing to this. -Occasional premature beat heard on exam. She is asymptomatic. -Continue metoprolol 25mg BID. -Will place a 30-day event monitor #HLD -On pravastatin PLAN: I explained the association of supraventricular and ventricular ectopy with issue such as electrolyte abnormalities, hypoxia, infection, volume shifts etc. 1. Will obtain routine labs in the form of a CMP and a CBC 2. We will place a 48-hour Holter monitor 3. She is scheduled for an echocardiogram later this month RTC in 3-4 weeks with MELBA or configuration specialist to review labs, 48 hr Holter and echocardiogram Iam Jiménez MD, MPH, [facility], [facility], [facility] Interventional Cardiology Pager Email: [email or web address] [1] Patient Active Problem List Diagnosis Benign essential hypertension Chest pain COPD (chronic obstructive pulmonary disease) (CMS/HCC) Dyspnea Edema Fainting Former cigarette smoker Hyperlipidemia Paroxysmal supraventricular tachycardia [2] Past Medical History: Diagnosis Date CHF (congestive heart failure) (CMS/HCC) COPD (chronic obstructive pulmonary disease) (CMS/HCC) Hyperlipidemia Hypertension [3] No family history on file. [4] Social History Tobacco Use Smoking status: Former Types: Cigarettes Passive exposure: Past Smokeless tobacco: Never Substance Use Topics Alcohol use: Yes Comment: occasional Drug use: Never [5] Allergies Allergen Reactions Codeine Nausea Only [6] Current Outpatient Medications: albuterol 2.5 mg /3 mL (0.083 %) nebulizer solution, Take 2.5 mg by nebulization three times daily., Disp: , Rfl: amoxicillin (Amoxil) 875 mg tablet, Take 875 mg by mouth two times daily., Disp: , Rfl: aspirin 81 mg EC tablet, Take 81 mg by mouth in the morning., Disp: , Rfl: citalopram (CeleXA) 10 mg tablet, Take 1 tablet by mouth in the morning. (Patient not taking: Reported on 02/06/2025), Disp: , Rfl: clonazePAM (KlonoPIN) 0.5 mg tablet, Take 0.5 mg by mouth in the morning., Disp: , Rfl: fluticasone (Flonase) 50 mcg/actuation nasal spray, Administer 2 sprays into each nostril two timesdaily., Disp: , Rfl: qfacrkozuyu-cvwznvaiz-qiyhkvmu 100-62.5-25 mcg blister with device, Inhale 1 puff in the morning., Disp: , Rfl: lisinopril 2.5 mg tablet, Take 2.5 mg by mouth in the morning., Disp: , Rfl: metoprolol tartrate (Lopressor) 25 mg tablet, Take 25 mg by mouth two times daily., Disp: , Rfl: potassium chloride CR (Klor-Con) 10 mEq ER tablet, Take 20 mEq by mouth in the morning., Disp: , Rfl: pravastatin (Pravachol) 40 mg tablet, Take 40 mg by mouth at bedtime., Disp: , Rfl: predniSONE (Deltasone) 10 mg tablet, Take 10 mg by mouth in the morning., Disp: , Rfl: torsemide (Demadex) 10 mg tablet, Take 10 mg by mouth in the morning., Disp: , Rfl: documented in this encounter Plan of Treatment Upcoming Encounters Date Type Department Care Team (Late st Contact Info) Description 03/20/2025 2:00 PM EDT Office Visit [facility] [address] [place] [address] Jennifer Marroquin, THERAPIST [address] [place] [phone] Scheduled Orders Name Type Priority Associated Diagnoses Orde r Schedule CBC and differential Lab Routine Chronic diastolic heart failure (CMS/HCC) Expected: 02/27/2025 (Approximate), Expires: 02/27/2026 Comprehensive metabolic panel Lab Routine Chronic diastolic heart failure (CMS/HCC) Expected: 02/27/2025 (Approximate), Expires: 02/27/2026 Holter monitor - 48 hour Cardiac Services Routine Paroxysmal supraventricular tachycardia Tachycardia Expected: 02/27/2025 (Approximate), Expires: 02/27/2027 documented as of this encounter Visit Diagnoses Diagnosis Paroxysmal supraventricular tachycardia- Primary Chronic diastolic heart failure (CMS/HCC) Chronic diastolic heart failure Pulmonary hypertension (CMS/HCC) Other chronic pulmonary heart diseases Mixed hyperlipidemia Tachycardia Unspecified tachycardia PVC (premature ventricular contraction) Other premature beats documented in this encounter Care Teams Annual Campaign Manager Relationship Specialty Start Date End Date Geo Montejo DO [facility] [place] [address] [place] [phone] PCP - General Family Medicine 02/05/25 documented as of this encounter
--- OUTSIDE RECORDS SUMMARY | 2025-03-13 10:27 | XMS_ITS | Encounter Summary ---
Author Organization [facility] Address [address] [place] [address] Care Team Providers Care Chief Gauger Name Role Phone Geo Montejo DO Primary Care Provider [phone] Encounter Details Date Type Department Care Team (Late st Contact Info) Description 02/27/2025 Orders Only [facility] [address] [place] [address] Provider, MD Jerardo [address] [place] [address] Social History Tobacco Use Types Packs/Day Years [...] Description 03/20/2025 2:00 PM EDT Office Visit [facility] [address] [place] [address] Jennifer Marroquin, SKYE [address] [place] [address] documented as of this encounter Procedures Procedure Name Priority Date/Time Associated Diagnosis Comments ECG 12-LEAD Routine 02/27/2025 3:46 PM EDT documented in this encounter Results * ECG 12 lead (02/27/2025 3:46 PM EDT) us Historical Provider MD ECG ORDERABLES Final Res ult documented in this encounter Visit Diagnoses Not on filedocumented in this encounter Care Teams Chief Gauger Relationship Specialty Start Date End Date Geo Montejo [place] [address] PCP - General Family Medicine 02/05/25 documented as of this encounter
--- OUTSIDE RECORDS SUMMARY | 2025-03-13 10:27 | XMS_ITS | Encounter Summary ---
Author Organization [facility] Address [address] [place] [address] Phone Care Team Providers Care Production Line Name Role Phone Geo Montejo DO Primary Care Provider [phone] Encounter Details Date Type Department Care Team (Late st Contact Info) Description 01/09/2024 Scanned Document [facility] [address] [place] [address] Scanning, Generic Provider Social History Tobacco Use [...] on filedocumented in this encounter Care Teams Production Line Relationship Specialty Start Date End Date Geo Montejo DO PCP - General 08/28/99 documented as of this encounter
--- OUTSIDE RECORDS SUMMARY | 2025-03-13 10:27 | XMS_ITS | Encounter Summary ---
Author Organization [facility] Address [address] [place] [address] Phone Care Team Providers Care Test Engine Mechanic Name Role Phone Geo Montejo DO Primary Care Provider [phone] Encounter Details Date Type Department Care Team ([facility] Contact Info) Description 02/04/2022 Orders Only [facility] [address] [place] [address] Conversion, Onbase Social History Tobacco Use Types [...] on filedocumented in this encounter Care Teams Test Engine Mechanic Relationship Specialty Start Date End Date Geo Montejo DO PCP - General 08/28/99 documented as of this encounter
--- OUTSIDE RECORDS SUMMARY | 2025-03-13 10:27 | XMS_ITS | Encounter Summary ---
Author Organization [facility] Address [address] [place] [address] Phone Care Team Providers Care Utility Worker Driver Name Role Phone Geo Montejo DO Primary Care Provider [phone] Encounter Details Date Type Department Care Team ([facility] Contact Info) Description 09/01/2023 Scanned Document [facility] [address] [place] [address] Scanning, Generic Provider Social History Tobacco Use [...] Procedure Name Priority Date/Time Associated Diagnosis Comments ECHOCARDIOGRAM 09/01/2023 documented in this encounter Results * ECHOCARDIOGRAM (09/01/2023) Narrative 09/01/2023 Ordered by an unspecified provider. us Generic Provider Scanning CV ECHO PROCEDURES Fin al Result documented in this encounter Visit Diagnoses Not on filedocumented in this encounter Care Teams Utility Worker Driver Relationship Specialty Start Date End Date Geo Montejo DO PCP - General 08/28/99 documented as of this encounter
--- OUTSIDE RECORDS SUMMARY | 2025-03-13 10:27 | XMS_ITS | Encounter Summary ---
Author Organization [facility] Address [address] [place] [address] Care Team Providers Care Photographs Curator Name Role Phone Geo Montejo DO Primary Care Provider Encounter Details Date Type Department Care Team (Late st Contact Info) Description 09/20/2024 Abstract [facility] [address] [place] [address] Adenike Koch, [facility] [address] [place] [address] Social History Tobacco Use Types Packs/Day Years [...] on filedocumented in this encounter Care Teams Photographs Curator Relationship Specialty Start Date End Date Geo Montejo DO [address] [place] [address] PCP - General Family Medicine 12/26/24 documented as of this encounter
--- OUTSIDE RECORDS SUMMARY | 2025-03-13 10:27 | XMS_ITS | Clinical Summary ---
Author Organization [facility] Address [address] [place] [address] Care Team Providers Care Seed Collector Name Role Phone LongGeo dubon Yakov GASPAR Primary Care Provider [phone] Encounters Date Type Department Care Team Description 01/01/2025 3:00 PM EDT Office Visit [facility] [address] [place] [address] [place] [address] Mixed conductive and sensorineural hearing loss of [...] 2 - PPSV23) 12/11/2019 12/10/2018 Influenza Vaccine (#1) 2025 4, 05/30/2023, 05/24/2022, Additional history exists Insurance [employer] MEDICARE Care Teams Seed Collector Relationship Specialty Start Date End Date Geo Montejo DO [address] [place] [address] PCP - General Family Medicine 12/26/24
--- OUTSIDE RECORDS SUMMARY | 2025-03-13 10:27 | XMS_ITS | Encounter Summary ---
Author Organization [facility] Address [address] [place] [address] Phone Care Team Providers Care Master Brewer Name Role Phone LongjagdishMandytt Yakov GASPAR Primary Care Provider [phone] Reason for Visit * Reason Comments Med Refill Encounter Details Date Type Department Care Team ([facility] st Contact Info) Description 02/04/[address] [place] [address] [facility] [address] [place] [address] Celestina Khalil MD [address] [facility] 2, [facility] [address] [place] [address] Edema, unspecified type Social History [...] documented as of this encounter Care Teams Master Brewer Relationship Specialty Start Date End Date Geo Montejo DO PCP - General 08/28/99 documented as of this encounter
--- OUTSIDE RECORDS SUMMARY | 2025-03-13 10:27 | XMS_ITS | Encounter Summary ---
Author Organization [facility] Address [address] [place] [address] Phone Care Team Providers Care Supervisor Lens Generating Name Role Phone Geo Montejo DO Primary Care Provider [phone] Encounter Details Date Type Department Care Team ([facility] Contact Info) Description 11/24/2021 Orders Only [facility] [address] [place] [address] Conversion, Onbase Social History Tobacco Use Types [...] on filedocumented in this encounter Care Teams Supervisor Lens Generating Relationship Specialty Start Date End Date Geo Montejo DO PCP - General 08/28/99 documented as of this encounter
--- OUTSIDE RECORDS SUMMARY | 2025-03-13 10:27 | XMS_ITS | Clinical Summary ---
Author Organization [facility] Address [address] [place] [address] Care Team Providers Care Qa Software Test Engineer Name Role Phone Geo Montejo DO Primary Care Provider [phone] Allergies Active Allergy Reactions Criticality Noted Date Comments Codeine Nausea Only Medium 08/31/2023 Medications albuterol 2.5 mg /3 mL (0.083 %) nebulizer solution Take 2.5 mg by nebulization three times daily. 4 Active aspirin 81 mg EC tablet Take 81 mg by mouth in the morning. Active citalopram (CeleXA) 10 mg tablet Take 1 tablet by mouth in the morning. 4 Active clonazePAM (KlonoPIN) 0.5 mg tablet Take 0.5 mg by mouth in the morning. Active fluticasone (Flonase) 50 mcg/actuation nasal spray Administer 2 sprays into each nostril two times daily. Active lisinopril 2.5 mg tablet Take 2.5 mg by mouth in the morning. 5 Active potassium chloride CR (Klor-Con) 10 mEq ER tablet Take 20 mEq by mouth in the morning. Active pravastatin (Pravachol) 40 mg tablet Take 40 mg by mouth at bedtime. 5 12/21/19 26 Active torsemide (Demadex) 10 mg tablet Take 10 mg by mouth in the morning. 4 Active fluticasone-ume clidin-vilanter 100-62.5-25 mcg blister with device Inhale 1 puff in the morning. Active metoprolol tartrate (Lopressor) 25 mg tablet Take 25 mg by mouth two times daily. Active amoxicillin (Amoxil) 875 mg tablet Take 875 mg by mouth two times daily. Active predniSONE (Deltasone) 10 mg tablet Take 10 mg by mouth in the morning. Active Active Problems Problem Noted Date Diagnosed Date Former cigarette smoker 02/09/2024 Benign essential hypertension 08/31/2023 Chest pain 08/31/2023 COPD (chronic obstructive pulmonary disease) 11/2023 Dyspnea 08/31/2023 Edema 08/31/2023 Fainting 08/31/2023 Hyperlipidemia 08/31/2023 Paroxysmal supraventricular tachycardia 08/31/19 24 Encounters Date Type Department Care Team Description 02/27/2025 2:30 PM EDT Office Visit [address] [phone] Iam Jiménez MD Paroxysmal supraventricular tachycardia (Primary Dx); Chronic diastolic heart failure (CMS/HCC); Pulmonary hypertension (CMS/HCC); Mixed hyperlipidemia; Tachycardia; PVC (premature ventricular contraction) 02/27/2025 Orders Only [address] [phone] Jerardo Huang MD 02/06/2025 3:00 PM EDT Office Visit [address] [address] Jennifer Marroquin CNP Pulmonary hypertension (CMS/HCC) (Primary Dx); Chronic diastolic heart failure (CMS/HCC); Paroxysmal supraventricular tachycardia; Benign hypertensive heart disease with heart failure (CMS/HCC); Mixed hyperlipidemia 01/31/2025 [facility] [address] [place] [address] Geo Montejo DO from Last 3 Months [...] Description 03/20/2025 2:00 PM EDT Office Visit [facility] [address] [place] [address] Jennifer Marroquin, MANAGER OF DISTRIBUTION [address] [place] [address] Health Maintenance Due Date Last [...] ECG 12-LEAD Routine 02/27/2025 3:46 PM EDT from Last 3 Months Results * ECG 12 lead (02/27/2025 3:46 PM EDT) us Historical Provider ECG ORDERABLES Final Res ult from Last 3 Months Insurance [employer] MED[employer]ARE Care Teams Qa Software Test Engineer Relationship Specialty Start Date End Date Geo Montejo DO [address] [place] [address] PCP - General Family Medicine 02/05/25
--- OUTSIDE RECORDS SUMMARY | 2025-03-13 10:27 | XMS_ITS | Clinical Summary ---
Author Organization [facility] Address [address] [place] [address] Phone Care Team Providers Care Marble Polisher Hand Name Role Phone Geo Montejo DO Primary Care Provider [phone] Allergies Active Allergy Reactions Criticality Noted Date [...] mEq) by mouth once daily. Active vit P-E-pkpyqb-zinc-lut ein (Eye Multivit-Lutein,C-E -Cu-Zn,) 226 mg-90 mg-2 [...] Type Department Care Team Description 02/04/[address] [address] Celestina Khalil MD Edema, unspecified type 01/22/2025 Scanned Document [facility] [address] [place] [place] [id number] Scanning, Generic Provider 12/19/2024 Refill [place] [address] [phone] Ronnie Amin MD Hyperlipidemia, unspecified hyperlipidemia type from Last 3 Months Social History Tobacco [...] 1-dose 75+ series) 2016 COVID-19 Vaccine ( - season) 2024 06/01/2021, 10/17/2020, 09/26/2020 Echocardiogram 09/01/2024 09/01/2023 Influenza Vaccine (#1) 2025 , 05/30/2023, 05/24/2022, Additional history exists Irritable Bowel Syndrome Discontinued [...] Health Maintenance Insurance [facility] UNITED [employer]ARE MEDICARE [facility] [employer] MEDICARE Care Teams Marble Polisher Hand Relationship Specialty Start Date End Date Geo Montejo DO PCP - General 08/28/99
--- OUTSIDE RECORDS SUMMARY | 2025-03-13 10:27 | XMS_ITS | Encounter Summary ---
Author Organization [facility] Address [address] [place] [address] Phone Care Team Providers Care Manager Multimedia Name Role Phone Geo Montejo DO Primary Care Provider [phone] Encounter Details Date Type Department Care Team ([facility] Contact Info) Description 01/22/2025 Scanned Document [facility] [address] [place] [address] Scanning, Generic Provider Social History Tobacco Use [...] documented as of this encounter Care Teams Manager Multimedia Relationship Specialty Start Date End Date Geo Montejo DO PCP - General 08/28/99 documented as of this encounter
--- OUTSIDE RECORDS SUMMARY | 2025-03-13 10:27 | XMS_ITS | Encounter Summary ---
Author Organization [facility] Address [address] [place] [address] Phone Care Team Providers Care Assistant Clinical Director Name Role Phone Geo Montejo DO Primary Care Provider [phone] Encounter Details Date Type Department Care Team (Late st Contact Info) Description 12/20/2023 Scanned Document [facility] [address] [place] [address] Scanning, Generic Provider Social History Tobacco Use [...] on filedocumented in this encounter Care Teams Assistant Clinical Director Relationship Specialty Start Date End Date Geo Montejo DO PCP - General 08/28/99 documented as of this encounter
--- NOTE | 2025-03-13 10:30 | CA_ITS ---
Patient Name: ALEKSANDR SANCHEZ MR#: [id number] : 1940 Exam Date: 03/13/2025 Ordering Doctor: ARTEM Ortiz 2 CHOCARDIOGRAM REPORT PROCEDURE: CA ECHO LIMITED INDICATIONS: Pulmonary hypertension, congestive heart failure, COPD, hypertension COMPARISON: None. DESCRIPTION: Limited ECHOCARDIOGRAM Real-time transthoracic echocardiography with 2D and M-mode performed. QUALITY: Technical quality was good. Limited echocardiogram per physician order. LEFT VENTRICLE: Normal chamber size. Mild concentric left ventricular hypertrophy. LV EF: Global left ventricular systolic function is normal; visually estimated ejection fraction is 55 to 60%. Abnormal septal motion consistent with right ventricular pressure and/or volume overload. LEFT ATRIUM: Severe dilatation. RIGHT ATRIUM: Moderate dilatation. RIGHT VENTRICLE: Right ventricle appears enlarged; systolic function is reduced. TRICUSPID VALVE: Normal mobility and thickness. Severe regurgitation. Doppler studies reveal moderately (45-60) elevated right-sided pressures. RVSP 54 mmHg, which is consistent with previous echo done 01/27/25. MITRAL VALVE: Normal mobility and thickness. There is no mitral annular calcification. AORTIC VALVE: Normal trileaflet appearance. Normal leaflet mobility. AORTIC ROOT: Normal diameter and appearance. Ascending aorta is normal in size. PULMONIC VALVE: Normal thickness and mobility. Mild regurgitation. PERICARDIUM: No evidence of pericardial effusion. IVC: Collapses with inspiration. CONCLUSION: 1. Global left ventricular systolic function is normal; visually estimated ejection fraction is 55 to 60% 2. Abnormal septal motion consistent with right ventricular pressure and/or volume overload 3. Mild left atrial hypertrophy 4. The right ventricular enlargement with reduced systolic function 5. Biatrial dilatation 6. Severe tricuspid regurgitation 7. Moderately elevated right ventricular systolic pressure; RVSP 54 mmHg 8. Mild pulmonary regurgitation Adult Echocardiography Procedure Report Left Ventricle LVEDD (3.7 - 5.6 cm): 3.95 cm LVESD (2.2 - 4.0 cm): 2.64 cm LVIVS thickness (0.6 - 1.2 cm): 1.06 cm LVPW thickness (0.5 - 1.0 cm): 1.12 cm LVOT Diameter 1.89 cm, 2.08 cm Left Ventricular Ejection Fraction: 42.08 % Left Atrium LA Volume Index (2D A2C): 59.55 ml/m2 Left Atrium Systolic Dimension: 3.72 cm Mitral Valve Right Ventricle Aorta AO Root Diam: 3.15 cm Ascending Ao Diam: 2.42 cm Aortic Valve Tricuspid Valve Peak Velocity (Regurgitant Flow): 3.20 m/s, 3.01 m/s, 2.77 m/s, 3.39 m/s, 3.43 m/s, 3.46 m/s, 3.50 m/s, 3.43 m/s, 3.58 m/s Pulmonic Valve Peak Gradient: 2.43 mm[Hg], 4.63 mm[Hg], 2.08 mm[Hg] Right Atrium Right Atrium Systolic Pressure: 56.35 ml, 56.35 ml Dictated by: Iam Jiménez M.D. on 03/13/2025 at 16:43 Approved by: Iam Jiménez M.D. on 03/13/2025 at 16:47
--- OUTSIDE RECORDS SUMMARY | 2025-03-13 10:41 | XMS_ITS | CCD ---
Author Organization [facility] [employer] Care Team Providers Care Supervisor Electric Name Role Phone Unavailable Unavailable Kunjagdish Sheldon R Unavailable Alireza Olvera Unavailable [phone] Sheldon Xie Unavailable Kuns, DO Sheldon Primary Care Provider Kuns, DO Sheldon Attending Provider [phone] Kuns, DO Sheldon Primary Care Provider Kuns, DO Sheldon Attending Provider Kuns, DO Sheldon Primary Care Provider Kuns, DO Sheldon Attending Provider Kuns, DO Sheldon Primary Care Provider Kuns, DO Sheldon Attending Provider HIEU Duran Attending Provider HIEU Duran Referring Provider Sammie Duran Unavailable Longs, DO Sheldon Primary Care Provider Longs, DO Sheldon Attending Provider HIEU Duran Attending Provider HIEU Duran Referring Provider Longs, DO Sheldon Primary Care Provider [phone] Longs, DO Sheldon Attending Provider HIEU Duran Attending Provider [phone] SAMMIE DURAN Attending Unavailable EMA, SAMMIE Consulting Unavailable ANNE-MARIE, DR CHUNG Primary Care Unavailable EMA, SAMMIE Admitting Unavailable KUNJagdish, DR CHUNG Primary Care Unavailable SAMSA ., ELMA Attending Unavailable SAMSA ., ELMA Admitting Unavailable SAMSA ., ELMA Admitting Unavailable SAMSA ., ELMA Attending Unavailable SAMSA ., ELMA Consulting Unavailable ANNE-MARIE, DR CHUNG Referring Unavailable KUNJagdish, DR CHUNG Primary Care Unavailable EMA, SAMMIE Admitting Unavailable EMA, SAMMIE Attending Unavailable EMA, SAMMIE Attending Unavailable KUNJagdish, DR CHUNG Primary Care Unavailable EMA, SAMMIE Admitting Unavailable KUNJagdish, DR CHUNG Primary Care Unavailable EMA, SAMMIE Consulting Unavailable EMA, SAMMIE Admitting Unavailable EMA, SAMMIE Attending Unavailable EMA, SAMMIE Admitting Unavailable KUNJagdish, DR CHUNG Primary Care Unavailable EMA, SAMMIE Consulting Unavailable EMA, SAMMIE Attending Unavailable EMA, SAMMIE Attending Unavailable EMA, SAMMIE Consulting Unavailable ANNE-MARIE, DR CHUNG Primary Care Unavailable EMA, SAMMIE Admitting Unavailable DO Sheldon Xie Primary Care Provider [phone] DO Sheldon Xie Attending Provider Dre Looney Unavailable DO Sheldon Xie Primary Care Provider DO Sheldon Xie Attending Provider MD Dre Looney Attending Provider SHELDON XIE Referring Unavailable SHELDON XIE Primary Care Unavailable DO Sheldon Xie Primary Care Provider [phone] MD Dre Looney Attending Provider DO Sheldon Xie Attending Provider HIEU Duran Attending Provider DO Sheldon Xie Primary Care Provider [phone] MD Dre Looney Attending Provider [phone] Kuns, DO Sheldon Primary Care Provider Kuns, DO Sheldon Attending Provider [phone] Kuns DO, Sheldon R Primary Care Provider Unavailab le Kuns, DO Sheldon Primary Care Provider [phone] Kuns, DO Sheldon Attending Provider [phone] Kuns, DO Sheldon Primary Care Provider Kuns, DO Sheldon Attending Provider Kuns DO, Sheldon Primary Care Provider Kuns DO, Sheldon Attending Provider Unavailable Primary Care Provider Unavailabl e Kuns DO, Sheldon Primary Care Provider Kuns DO, Sheldon Attending Provider [phone] Kuns, Sheldon Primary Care Unavailable Kuns, Sheldon [...] Kuns DO, Sheldon R Primary Care Provider [phone] Kuns DO, Sheldon R Primary Care Provider [phone] TAMMY MELGAR Attending Unavailable RONNIE COLVIN Attending Unavailable KUNS, SHELDON R Primary Care Unavailable IRISH THOMPSON Attending Unavailable ARTEM DEL RIO Attending Unavailable Allergies Allergy Classification Reported Allergen(s) Allergy Type Date of Onset Reaction(s) Facility Botulinum Toxin Type A (1 source) Botulinum Toxin Type A Drug Allergy 05-14-202 4 dysphagia [facility] Opioid Agonists (1 source) Codeine Drug Allergy 4 Nausea, nauseated [facility] (20 sources) Codeine; Translations: [Codeine Derivatives] Drug Allergy 4 Nausea Only [facility] (20 sources) Botulinum Toxin Type A Drug Allergy dysphagia [facility] Other (20 sources) Codeine; Translations: [Codeine] Drug Allergy 9 Nausea, Nausea, nauseated [facility] (1 source) Botulinum Toxin Type A Drug Allergy 3 [facility] (20 sources) Botulinum Toxin Type A; Translations: [onabotulinumto xinA] Drug Allergy 3 dysphagia [facility] Medications Current Medications Medication Drug Class(es) [...] Source Status: Taking; Provider: Anne-Marie Nagy Start: 12-02-2021 Albuterol Sulf ate (2.5 MG/3ML) [...] alpha-Adrenergi c Mart, beta-Adrenergic Mart Start: 07-23-20 18 take 1 tablet by mouth twice daily [...] with device Active 1 INH INHALATION Daily December 24, 2024 3:00pm Start: 09-19-2024 End: 12-24-2024 Oukkebaebng-Qfxpcmmqr-Updmrz er (Trelegy Ellipta) 100-62.5-25 mcg blister with device Discontinued 1 INH INHALATION Daily September 19, 2024 2:01pm December 24, 2024 3:01pm Start: 09-19-2024 Fluticasone-Um eclidin-Vilanter (Trelegy Ellipta) 100-62.5-25 mcg blister with device Active 1 INH INHALATION Daily 60 September 19, 2024 2:01pm Start: 09-19-2024 Fluticasone-Um eclidin-Vilanter (Trelegy Ellipta) 100-62.5-25 mcg blister with device Active 1 INH INHALATION Daily September 19, 2024 1:01pm Start: 10-16-2023 End: 09-19-2024 take 1 puff(s) by inhalation once daily Wgyluqqkhet-Uoqowkptw-Viubrzkq (Trelegy Ellipta) 100-62.5-25 mcg blister with device Discontinued 1 INH INHALATION Daily October 16, 2023 1:00am September 19, 2024 2:02pm FreeTextSi puff Inhalation Once a day; Note: Source Status: Taking; Refills: 3; Provider: Anne-Marie Nagy Start: 10-16-2023 End: 09-19-2024 take 1 puff(s) by inhalation once daily Dhdatquarxg-Gjnzsslyz-Wqyuqbci (Trelegy Ellipta) 100-62.5-25 mcg blister with device Discontinued 1 INH INHALATION Daily October 16, 2023 12:00am September 19, 2024 1:02pm FreeTextSi puff Inhalation Once a day; Note: Source Status: Taking; Refills: 3; Provider: Anne-Marie Nagy Start: 10-16-2023 take 1 puff(s) by inhalation once daily Msdejmkmvef-Huoquzbge-Qbdlrjfs (Trelegy Ellipta) 100-62.5-25 mcg blister with device Active 1 INH INHALATION Daily October 16, 2023 1:00am FreeTextSi puff Inhalation Once a day; Note: Source Status: Taking; Refills: 3; Provider: Anne-Marie Nagy Start: 10-16-2023 take 1 puff(s) by inhalation once daily Rajmdhnbnzj-Bobzsgtaf-Pfdfhqhg (Trelegy Ellipta) 100-62.5-25 mcg blister with device [...] 23, 2018 1:00am October 16, 2023 11:21am Ffwetcpc-Rwc-Js-Lycopen-Lute in (Centrum Silver) 0.4-300-250 mg-mcg-mcg Tablet (20 sources) Start: 12-27-2018 take 1 tablet by mouth once daily Oszblass-Ktz-Vn-Lycopen-Lutein (Centrum Silver) 0.4-300-250 mg-mcg-mcg Tablet Active 1 TAB PO Daily December 26, 2018 11:00pm Start: 12-27-2018 take 1 tablet by son th once daily Kpmjrqrh-Mmh-Qe-Lycopen-Lutein (Centrum Silver) 0.4-300-250 mg-mcg-mcg Tablet Active 1 [...] Start: 12-27-2018 take 2 capsules by m outh twice daily [employer]'s Eye Vitamin Active 2 [...] Taking; Provider: Aure Erickson ( ) vit H-Q-vpzoua-zinc-lute in (Eye Multivit-Lutein,C-E- Cu-Zn,) 226 mg-90 mg-2 mg-34.8 mg-5 mg capsule (1 source) vit Y-O-opesxz-zinc-lutein (Eye Multivit-Lutein,C-E-Cu- Zn,) 226 mg-90 mg-2 mg-34.8 [...] Agonist Start: 07-23-2018 End: 07-27-2018 Hydrocodone-Acetami nophen ([place]) 5-325 mg tablet Discontinued 0.5 TAB PO [...] 250 mg tablet Discontinued 0 PO .COMPLEX 6 May 16, 2024 12:00am June 06, 2024 [...] 2023 12:44pm take 1 tablet by son every twenty-four hours Vitamin D 25 MCG (1000 UT) 1 tablet Orally Once a day Active citalopram 10 mg oral tablet (20 sources) Serotonin Reuptake Inhibitor Start: 11-15-2023 End: 12-24-2024 take 1 tablet by mouth once daily Citalopram (Celexa) 10 mg tablet Discontinued 10 MG PO Daily November 15, 2023 12:00am December 24, 2024 2:39pm Start: 04-21-2021 take 1 tablet by son every twenty-four hours Citalopram Hydrobromide 10 MG [...] Start: 07-23-2018 take 1 capsule by mo [facility] once daily Esomeprazole Magnesium (Nexium) 20 [...] 1 capsule by inhalation once daily Tiotropium [place] (Spiriva With Handihaler) 18 mcg Capsule, W/Inhalation Device Discontinued 18 MCG INHALATION Daily December 27, 2018 12:00am September 27, 2019 12:07pm Start: 07-23-2018 End: 12-27-2018 Tiotropium [place] (Spiriva With Handihaler) 18 mcg capsule, w/inhalation device Discontinued July 23, 2018 1:00am December 27, 2018 9:43am Problems Active Problems Problem Classification Problem Date Documented Da te Episodic/Chronic Abdominal pain (3 sources) Unspecified abdominal pain Episodic Anxiety disorders (20 sources) Mixed anxiety and depressive disorder; Translations: [Other specified anxiety disorders] Chronic Blindness and vision defects (1 source) Unspecified visual disturbance Episodic Cardiac dysrhythmias (4 sources) Paroxysmal supraventricular tachycardia; Translations: [Paroxysmal supraventricular tachycardia (CMS-HCC)] Onset: 4 02-09-2024 Chronic Cardiac dysrhythmias (2 sources) Tachycardia, unspecified; Translations: [Tachycardia, unspecified] Onset: 5 Episodic Chronic obstructive pulmonary disease and bronchiectasis (20 sources) Chronic obstructive lung disease; Translations: [Chronic airway obstruction, not elsewhere classified] Onset: 2 Resolved: 2 Chronic Chronic obstructive pulmonary disease and bronchiectasis (20 sources) Bronchitis; Translations: [Bronchitis, not specified as acute or chronic] 03-08-2019 Episodic Congestive heart failure; nonhypertensive (20 sources) Chronic heart failure; Translations: [Heart failure, unspecified] Onset: 5 Chronic Coronary atherosclerosis and other heart disease [...] Translations: [Supraventricular tachycardia, unspecified (CMS-HCC)] Onset: 4 Unclassified (1 source) Supraventricular tachycardia, unspecified; Translations: [Supraventricular tachycardia, unspecified] Onset: 5 Past or Other Problems Problem Classification Problem [...] Translations: [Supraventricular tachycardia, unspecified (CMS-HCC)] Onset: 02-09-2024 Unclassified (1 source) Supraventricular tachycardia, unspecified; Translations: [Supraventricular tachycardia, unspecified] Onset: 02-27-2025 Results Test Name Value Interpretation Reference Range Facility Office Visiton 02-27-2025 Follow-up visit [id number] Aleksandr Sanchez 1940 F Date Provider Department Center 02/27/2025 [id number], LYNNAB HIEN [facility] Family History Family Status - Relation Status Age at Mother Father Level of Service:89614 [place] OFFICE/OUTPATIENT ESTABLISHED MOD MDM 30 MIN Normal [facility] Orders Onlyon 02-27-2025 Orders Only [id number] Aleksandr Sanchez 1940 F Date Provider Department Center 02/27/2025 [id number], HISTORICAL GAVINO Dumont Family History Family Status - Relation Status Age at Mother Father Normal [facility] Office Visiton 02-06-2025 Follow-up visit [id number] Aleksandr Sanchez 1940 F Date Provider Department Center 02/06/2025 ARTEM JIM HIEN [facility] Family History Family Status - Relation Status Age at Mother Father Level of Service:40437 [place] OFFICE/OUTPATIENT ESTABLISHED LOW MDM 20 MIN Reason for Visit and Comments: Hospital Follow-up [832] Normal [facility] Abstracton 01-31-2025 Abstract [id number] Aleksandr Sanchez 1940 F Date Provider Department Center 01/31/2025 SHELDON ONTIVEROS HIEN [facility] No family history on file Normal [facility] Alanine aminotransferase [En zymatic activity/volume] in Serum or PlasmaOrdered By: Sheldon Xie on 11-14-2024 ALT [Catalytic activity/Vol] Alanine aminotransferase [Enzymatic activity/volume] in Serum or Plasma 7-52 [facility] Albumin [Mass/volume] in Ser um or Plasma by Bromocresol green (BCG) dye binding methoOrdered By: Sheldon Xie on 11-14-2024 Albumin BCG dye [Mass/Vol] Albumin [Mass/volume] in Serum or Plasma by Bromocresol green (BCG) dye binding metho 3.5-5.7 [facility] Alkaline phosphatase [Enzyma tic activity/volume] in Serum or PlasmaOrdered By: Sheldon Xie on 11-14-2024 ALP [Catalytic activity/Vol] Alkaline phosphatase [Enzymatic activity/volume] in Serum or Plasma 34-104 [facility] Aspartate aminotransferase [ Enzymatic activity/volume] in Serum or PlasmaOrdered By: Sheldon Xie on 11-14-2024 AST [Catalytic activity/Vol] Aspartate aminotransferase [Enzymatic activity/volume] in Serum or Plasma 13-39 [facility] Basophils Auto (Bld) [#/Vol] Ordered By: Sheldon Xie on 11-14-2024 Basophils (Bld) [#/Vol] Automated basoph il count 0.0-0.2 [facility] Basophils/100 WBC Auto (Bld) Ordered By: Sheldon Xie on 11-14-2024 Basophils/100 WBC (Bld) Automated basophil % . [facility] Bilirubin.total [Mass/volume ] in Serum or PlasmaOrdered By: Sheldon Xie on 11-14-2024 Bilirubin [Mass/Vol] Bilirubin.total [Mass/volume] in Serum or Plasma 0.3-1.0 [facility] Calcium [Mass/volume] in Ser um or PlasmaOrdered By: Sheldon Xie on 11-14-2024 Calcium [Mass/Vol] Calcium [Mass/volume ] in Serum or Plasma High 8.6-10.3 [facility] Carbon dioxide, total [Moles /volume] in Serum or PlasmaOrdered By: Sheldon Xie on 11-14-2024 CO2 [Moles/Vol] Carbon dioxide, tota l [Moles/volume] in Serum or Plasma High 21.0-31.0 [facility] Chloride [Moles/volume] in S cecilia or PlasmaOrdered By: Sheldon Xie on 11-14-2024 Chloride [Moles/Vol] Chloride [Moles/volume] in Serum or Plasma 98-107 [facility] Cholesterol [Mass/volume] in Serum or PlasmaOrdered By: Sheldon Xie on 11-14-2024 Cholesterol [Mass/Vol] Cholesterol [Mass/volume] in Serum or Plasma Low 140-200 [facility] Comment on above: Chol less than 200 m g/dl low riskChol 201-239 mg/dl borderline riskChol 240 mg/dl and greater high risk Cholesterol in HDL [Mass/vol ume] in Serum or PlasmaOrdered By: Sheldon Xie on 11-14-2024 Cholesterol in HDL [Mass/Vol] Serum or plasma high density lipoprotein (HDL) cholesterol measurement 23-92 [facility] Comment on above: HDL CHOL ATP-III CLA SSIFICATION Cardiovascular RiskHDL > or equal to 60 mg/dL LOWHDL < 40 mg/dL HIGH Cholesterol in LDL Calc [Mas s/Vol]Ordered By: Sheldon Xie on 11-14-2024 Cholesterol in LDL [Mass/Vol] Cholesterol in LDL [Mass/volume] in Serum or Plasma by calculation 0-100 [facility] Comment on above: LDL ATP III CLASSIFI CATIONLDL less than 100 mg/dL OptimalLDL 100-129 mg/dL Near or above optimalLDL 130-159 mg/dL Borderline highLDL 160-189 mg/dL HighLDL greater than 189 mg/dL Very high Cholesterol in VLDL Calc [Ma ss/Vol]Ordered By: Sheldon Xie on 11-14-2024 Cholesterol in VLDL [Mass/Vol] Cholesterol in VLDL [Mass/volume] in Serum or Plasma by calculation [facility] Complete Blood Count Auto Di ffon 11-14-2024 Basophils (Bld) [#/Vol] 0.1 10*3/uL Normal 0.0-0.2 [facility] Comment on above: Result Comment: PERF ORMED BY: [place] [address] PATHOLOGIST AUDIOLOGY DIRECTOR SUKUMAR SINGH M.D. Performed By: #### C MP, LIPID, TSH3, CBC #### [address] Basophils/100 WBC (Bld) 1.0 % Normal . T sana [facility] Comment on above: Performed By: #### C MP, LIPID, TSH3, CBC #### [address] Eosinophils (Bld) [#/Vol] 0.3 10*3/uL Normal 0.0-0.45 [facility] Comment on above: Performed By: #### C MP, LIPID, TSH3, CBC #### [address] Eosinophils/100 WBC (Bld) 2.9 % Normal . [facility] Comment on above: Performed By: #### C MP, LIPID, TSH3, CBC #### [address] Erythrocyte distribution width (RBC) [Ratio] 15.0 % Normal 11.9-15.3 [facility] Comment on above: Performed By: #### C MP, LIPID, TSH3, CBC #### [address] Hematocrit (Bld) [Volume fraction] 38.8 % Normal 34.0-46.4 [facility] Comment on above: Performed By: #### C MP, LIPID, TSH3, CBC #### [place] [address] [place] Hemoglobin (Bld) [Mass/Vol] 12.7 g/dL Normal 11.8-15.4 [facility] Comment on above: Performed By: #### C MP, LIPID, TSH3, CBC #### [address] Lymphocytes (Bld) [#/Vol] 1.6 10*3/uL Normal 1.00-4.8 [facility] Comment on above: Performed By: #### C MP, LIPID, TSH3, CBC #### [address] Lymphocytes/100 WBC (Bld) 16.8 % Normal . [facility] Comment on above: Performed By: #### C MP, LIPID, TSH3, CBC #### [address] MCH (RBC) [Entitic mass] 31.5 pg Normal 24.7-34.3 [facility] Comment on above: Performed By: #### C MP, LIPID, TSH3, CBC #### [address] MCV (RBC) [Entitic vol] 96.5 fL Normal 80-100 [facility] Comment on above: Performed By: #### C MP, LIPID, TSH3, CBC #### [address] Mean Corpuscular HGB Conc 32.7 g/dL Normal 32.0-35.0 [facility] Comment on above: Performed By: #### C MP, LIPID, TSH3, CBC #### [address] Monocytes (Bld) [#/Vol] 0.7 10*3/uL Normal 0.0-0.8 [facility] Comment on above: Performed By: #### C MP, LIPID, TSH3, CBC #### [address] Monocytes/100 WBC (Bld) 7.0 % Normal . [facility] Comment on above: Performed By: #### C MP, LIPID, TSH3, CBC #### [address] Neutrophils (Bld) [#/Vol] 6.9 10*3/uL Normal 1.8-7.7 [facility] Comment on above: Performed By: #### C MP, LIPID, TSH3, CBC #### [address] Neutrophils/100 WBC (Bld) 72.3 % Normal . [facility] Comment on above: Performed By: #### C MP, LIPID, TSH3, CBC #### [address] NRBC% 0.1 /100{WBC} Normal 0-0.5 [facility] Comment on above: Performed By: #### C MP, LIPID, TSH3, CBC #### [address] Platelet mean volume (Bld) [Entitic vol] 8.9 fL Normal 6.3-10.7 [facility] Comment on above: Performed By: #### C MP, LIPID, TSH3, CBC #### [address] Platelets (Bld) [#/Vol] 381 10*3/uL Normal 150-450 [facility] Comment on above: Performed By: #### C MP, LIPID, TSH3, CBC #### [address] RBC (Bld) [#/Vol] 4.02 10*6/uL Normal 3.60-5.00 [facility] Comment on above: Performed By: #### C MP, LIPID, TSH3, CBC #### [address] WBC (Bld) [#/Vol] 9.5 10*3/uL Normal 3.8-11.6 [facility] Comment on above: Performed By: #### C MP, LIPID, TSH3, CBC #### [address] [place] [address] [place] Comprehensive Metabolic Pane julisa 11-14-2024 Albumin [Mass/Vol] 4.0 g/dL Normal 3.5-5.7 [facility] Comment on above: Performed By: #### C MP, LIPID, TSH3, CBC #### [facility] [address] Albumin/Globulin [Mass ratio] 1.2 {ratio} Normal [facility] Comment on above: Performed By: #### C MP, LIPID, TSH3, CBC #### [address] ALP [Catalytic activity/Vol] 64 U/L Normal 34-104 [facility] Comment on above: Performed By: #### C MP, LIPID, TSH3, CBC #### [address] ALT [Catalytic activity/Vol] 12 U/L Normal 7-52 [facility] Comment on above: Performed By: #### C MP, LIPID, TSH3, CBC #### [address] Anion gap [Moles/Vol] 12.7 mmol/L Normal 6.0-15.0 e [facility] Comment on above: Performed By: #### C MP, LIPID, TSH3, CBC #### [place] [address] [place] AST [Catalytic activity/Vol] 20 U/L Normal 13-39 [facility] Comment on above: Performed By: #### C MP, LIPID, TSH3, CBC #### [place] [address] [place] Bilirubin [Mass/Vol] 0.6 mg/dL Normal 0.3-1.0 [facility] Comment on above: Performed By: #### C MP, LIPID, TSH3, CBC #### [facility] [address] [place] [address] [place] Calcium [Mass/Vol] 10.4 mg/dL High 8.6-10.3 [facility] Comment on above: Performed By: #### C MP, LIPID, TSH3, CBC #### [facility] [address] Chloride [Moles/Vol] 102 mmol/L Normal 98-107 [facility] Comment on above: Performed By: #### C MP, LIPID, TSH3, CBC #### [facility] [address] CO2 [Moles/Vol] 31.8 mmol/L High 21.0-31.0 [facility] Comment on above: Performed By: #### C MP, LIPID, TSH3, CBC #### [facility] [address] Creatinine [Mass/Vol] 1.03 mg/dL Normal 0.60-1.20 [facility] Comment on above: Performed By: #### C MP, LIPID, TSH3, CBC #### [facility] [address] Estimated GFR 53.951 mL/Min Normal [facility] Comment on above: Performed By: #### C MP, LIPID, TSH3, CBC #### [facility] [address] Globulin (S) [Mass/Vol] 3.3 g/dL Normal [facility] Comment on above: Performed By: #### C MP, LIPID, TSH3, CBC #### [address] Glucose [Mass/Vol] 80 mg/dL Normal 70-100 [facility] Comment on above: Result Comment: [facility] Glucose Reference Range is dependent on time and content of last meal. Glucose of more than 200 mg/dL in a nonstressed, ambulatory subject supports the diagnosis of Diabetes Mellitus. ADA recommended reference range Performed By: #### C MP, LIPID, TSH3, CBC #### [facility] [address] Potassium [Moles/Vol] 4.5 mmol/L Normal 3.5-5.1 [facility] Comment on above: Performed By: #### C MP, LIPID, TSH3, CBC #### [facility] [address] [place] [address] [place] Protein [Mass/Vol] 7.3 g/dL Normal 6.4-8.9 [facility] Comment on above: Performed By: #### C MP, LIPID, TSH3, CBC #### [facility] [address] Sodium [Moles/Vol] 142 mmol/L Normal 136-145 [facility] Comment on above: Performed By: #### C MP, LIPID, TSH3, CBC #### [facility] [address] [place] [address] [place] Urea nitrogen [Mass/Vol] 34 mg/dL High 7-25 [facility] Comment on above: Performed By: #### C MP, LIPID, TSH3, CBC #### [facility] [address] [place] [address] [place] Creatinine [Mass/volume] in Serum or PlasmaOrdered By: Sheldon Xie on 11-14-2024 Creatinine [Mass/Vol] Creatinine [Mass/volume] in Serum or Plasma 0.60-1.20 [facility] Eosinophils Auto (Bld) [#/Vo l]Ordered By: Sheldon Xie on 11-14-2024 Eosinophils (Bld) [#/Vol] Automated eosinophil count 0.0-0.45 [facility] Eosinophils/100 WBC Auto (Bl d)Ordered By: Sheldon Xie on 11-14-2024 Eosinophils/100 WBC (Bld) Automated eosinophil % . [facility] Erythrocyte distribution wid th Auto (RBC) [Ratio]Ordered By: Sheldon Xie on 11-14-2024 Erythrocyte distribution width (RBC) [Ratio] Erythrocyte distribution width [Ratio] by Automated count 11.9-15.3 [facility] Globulin Calc (S) [Mass/Vol] Ordered By: Sheldon Xie on 11-14-2024 Globulin (S) [Mass/Vol] Serum globulin measurement by calculation (mass/volume) [facility] Glucose [Mass/volume] in Ser um or PlasmaOrdered By: Sheldon Xie on 11-14-2024 Glucose [Mass/Vol] Glucose [Mass/volume ] in Serum or Plasma 70-100 [facility] Comment on above: ADA recommended refe rence rangeRandom Glucose Reference Range is dependent on time and content of last meal. Glucose of more than 200 mg/dL in a nonstressed, ambulatory subject supports the diagnosis of Diabetes Mellitus. Hematocrit Auto (Bld) [Volum e fraction]Ordered By: Sheldon Xie on 11-14-2024 Hematocrit (Bld) [Volume fraction] Hematocrit [Volume Fraction] of Blood by Automated count 34.0-46.4 [facility] Hemoglobin [Mass/volume] in BloodOrdered By: Sheldon Xie on 11-14-2024 Hemoglobin (Bld) [Mass/Vol] Hemoglobin [Mass/volume] in Blood 11.8-15.4 [facility] Leukocytes [#/volume] correc sandra for nucleated erythrocytes in Blood by Automated counOrdered By: Sheldon Xie on 11-14-2024 WBC corrected for nucl RBC Auto (Bld) [#/Vol] Leukocytes [#/volume] corrected for nucleated erythrocytes in Blood by Automated coun 3.8-11.6 [facility] Lipid Panelon 11-14-2024 Cholesterol [Mass/Vol] 133 mg/dL Low 140-200 [facility] Comment on above: Result Comment: Chol less than 200 mg/dl low risk Chol 201-239 mg/dl borderline risk Chol 240 mg/dl and greater high risk Performed By: #### C MP, LIPID, TSH3, CBC #### [facility] [address] Cholesterol in HDL [Mass/Vol] 46 mg/dL Normal 23-92 [facility] Comment on above: Result Comment: HDL CHOL ATP-III CLASSIFICATION Cardiovascular Risk HDL > or equal to 60 mg/dL LOW HDL < 40 mg/dL HIGH Performed By: #### C MP, LIPID, TSH3, CBC #### [facility] [address] Cholesterol.total/Renu sterol in HDL [Mass ratio] 2.9 {ratio} Normal <5.0 [facility] Comment on above: Performed By: #### C MP, LIPID, TSH3, CBC #### [facility] [address] LDL Cholesterol,Calculated 60 mg/dL Normal 0-100 [facility] Comment on above: Result Comment: LDL ATP III CLASSIFICATION LDL less than 100 mg/dL Optimal LDL 100-129 mg/dL Near or above optimal LDL 130-159 mg/dL Borderline high LDL 160-189 mg/dL High LDL greater than 189 mg/dL Very high Performed By: #### C MP, LIPID, TSH3, CBC #### [facility] [address] Triglyceride w/Reflex 133 mg/dL Normal 0-149 [facility] Comment on above: Result Comment: TRIG ATP III CLASSIFICATION TRIG less than 150 mg/dL Normal TRIG 150-199 mg/dL Borderline high TRIG 200-500 mg/dL High TRIG greater than 500 mg/dL Very high Standard traceable to the Center for Disease Conrtrol and Prevention (CDC) test method. Performed By: #### C MP, LIPID, TSH3, CBC #### [facility] [address] VLDL CHOLESTEROL 26 mg/dL Normal [facility] Comment on above: Performed By: #### C MP, LIPID, TSH3, CBC #### [facility] [address] Lymphocytes Auto (Bld) [#/Vo l]Ordered By: Sheldon Xie on 11-14-2024 Lymphocytes (Bld) [#/Vol] Lymphocytes [#/volume] in Blood by Automated count 1.00-4.8 [facility] Lymphocytes/100 WBC Auto (Bl d)Ordered By: Sheldon Xie on 11-14-2024 Lymphocytes/100 WBC (Bld) Lymphocytes/100 leukocytes in Blood by Automated count . [facility] MCH Auto (RBC) [Entitic mass ]Ordered By: Sheldon Xie on 11-14-2024 MCH (RBC) [Entitic mass] MCH [Entitic mass] by Automated count 24.7-34.3 [facility] MCHC Auto (RBC) [Mass/Vol]Or dered By: Sheldon Xie on 11-14-2024 MCHC (RBC) [Mass/Vol] MCHC [Mass/volume] by Automated count 32.0-35.0 [facility] MCV Auto (RBC) [Entitic vol] Ordered By: Sheldon Xie on 11-14-2024 MCV (RBC) [Entitic vol] MCV [Entitic vol ume] by Automated count 80-100 [facility] Monocytes Auto (Bld) [#/Vol] Ordered By: Sheldon Xie on 11-14-2024 Monocytes (Bld) [#/Vol] Automated blood monocyte count 0.0-0.8 [facility] Monocytes/100 WBC Auto (Bld) Ordered By: Sheldon Xie on 11-14-2024 Monocytes/100 WBC (Bld) Automated monocyte % . [facility] Neutrophils Auto (Bld) [#/Vo l]Ordered By: Sheldon Xie on 11-14-2024 Neutrophils (Bld) [#/Vol] Neutrophils [#/volume] in Blood by Automated count 1.8-7.7 [facility] Neutrophils/100 WBC Auto (Bl d)Ordered By: Sheldon Xie on 11-14-2024 Neutrophils/100 WBC (Bld) Automated neutrophil % . [facility] No Panel InformationOrdered By: Sheldon Xie on 11-14-2024 Estimated GFR (CKD-EPI) 53.951 mL/Min [facility] Creatinine Clearance (Chem N/A [facility] Nucleated erythrocytes [Pres ence] in Blood by Automated countOrdered By: Sheldon Xie on 11-14-2024 Nucleated RBC Auto Ql (Bld) Nucleated erythrocytes [Presence] in Blood by Automated count 0-0.5 [facility] Platelet mean volume Auto (B ld) [Entitic vol]Ordered By: Sheldon Xie on 11-14-2024 Platelet mean volume (Bld) [Entitic vol] Platelet mean volume [Entitic volume] in Blood by Automated count 6.3-10.7 [facility] Platelets Auto (Bld) [#/Vol] Ordered By: Sheldon Xie on 11-14-2024 Platelets (Bld) [#/Vol] Platelets [#/vol ume] in Blood by Automated count 150-450 [facility] Potassium [Moles/volume] in Serum or PlasmaOrdered By: Sheldon Xie on 11-14-2024 Potassium [Moles/Vol] Potassium [Moles/volume] in Serum or Plasma 3.5-5.1 [facility] Protein [Mass/volume] in Ser um or PlasmaOrdered By: Sheldon Xie on 11-14-2024 Protein [Mass/Vol] Protein [Mass/volume ] in Serum or Plasma 6.4-8.9 [facility] RBC Auto (Bld) [#/Vol]Ordere d By: Sheldon Xie on 11-14-2024 RBC (Bld) [#/Vol] Erythrocytes [#/volume] in Blood by Automated count 3.60-5.00 [facility] Serum or plasma albumin/glob ulin mass ratioOrdered By: Sheldon Xie on 11-14-2024 Albumin/Globulin [Mass ratio] Serum or plasma albumin/globulin mass ratio [facility] Serum or plasma anion gap de terminationOrdered By: Sheldon Xie on 11-14-2024 Anion gap [Moles/Vol] Serum or plasma an ion gap determination 6.0-15.0 [facility] Serum or plasma total choles terol/high density lipoprotein (HDL) cholesterol mass ratOrdered By: Sheldon Xie on 11-14-2024 Cholesterol.total/Renu sterol in HDL [Mass ratio] Serum or plasma total cholesterol/high density lipoprotein (HDL) cholesterol mass rat <5.0 [facility] Sodium [Moles/volume] in Ser um or PlasmaOrdered By: Sheldon Xie on 11-14-2024 Sodium [Moles/Vol] Sodium [Moles/volume ] in Serum or Plasma 136-145 [facility] Thyroid Stimulating Hormoneo n 11-14-2024 TSH Qn 3.33 m[IU]/L Normal 0.45-5.33 [facility] Comment on above: Result Comment: PERF ORMED BY: [place] [address] PATHOLOGIST AUDIOLOGY DIRECTOR SUKUMAR SINGH M.D. Performed By: #### C MP, LIPID, TSH3, CBC #### [address] Thyrotropin [Units/volume] i n Serum or PlasmaOrdered By: Sheldon Xie on 11-14-2024 TSH Qn Thyrotropin [Units/volume] in Serum or Plasma 0.45-5.33 [facility] Triglyceride [Mass/volume] i n Serum or PlasmaOrdered By: Sheldon Xie on 11-14-2024 Triglyceride [Mass/Vol] Triglyceride [Mass/volume] in Serum or Plasma 0-149 [facility] Comment on above: TRIG ATP III [...] [Mass/volume] in Serum or Plasma High 7-25 [facility] WBC Auto (Bld) [#/Vol]Ordere d By: Sheldon Xie on 11-14-2024 WBC (Bld) [#/Vol] Leukocytes [#/volume ] in Blood by Automated count 3.8-11.6 [facility] No Panel Informationon 09-20 Pure Tone [...] (GFR) non- Low >=60 mL/min/1.73 m 2 [facility] Globulin Calc (S) [Mass/Vol] on 07-08-2024 Globulin (S) [Mass/Vol] Serum globulin measurement by calculation (mass/volume) [facility] Laboratory - Chemistry and C hemistry - challengeon 07-08-2024 Albumin [Mass/Vol] 3.4 g/dL 3.4-5.0 [facility] ALP [Catalytic activity/Vol] 74 U/L 46-116 [facility] ALT [Catalytic activity/Vol] 15 U/L 14-59 [facility] AST [Catalytic activity/Vol] 19 U/L 15-37 [facility] Bilirubin [Mass/Vol] 0.4 mg/dL 0.2-1.0 [facility] Calcium [Mass/Vol] 9.6 mg/dL 8.5-10.1 [facility] Chloride [Moles/Vol] 107 mmol/L 98-107 [facility] CO2 [Moles/Vol] 29.7 mmol/L 21.0-32.0 [facility] Creatinine [Mass/Vol] 1.28 mg/dL High 0.55-1.02 [facility] GFR/1.73 sq M.predicted MDRD (S/P/Bld) [Vol rate/Area] 48 mL/min/{1.73_m2} Low >=60 mL/min/1.73 m 2 [facility] Glucose [Mass/Vol] 113 mg/dL High 74-106 [facility] Potassium [Moles/Vol] 4.9 mmol/L 3.5-5.1 [facility] Protein [Mass/Vol] 6.9 g/dL 6.4-8.2 [facility] Sodium [Moles/Vol] 145 mmol/L 136-145 [facility] Urea nitrogen [Mass/Vol] 25.0 mg/dL High 7.0-18.0 [facility] Urea nitrogen/Creatinine [Mass ratio] 19.5 mg/mg [facility] Serum or plasma albumin/glob ulin mass ratioon 07-08-2024 Albumin/Globulin [Mass ratio] Serum or plasma albumin/globulin mass ratio [facility] Serum or plasma anion gap de terminationon 07-08-2024 Anion gap [Moles/Vol] Serum or plasma an ion gap determination [facility] XR lumbar spine 6V w bending on 06-18-2024 XR lumbar spine 6V w bending [facility] [address] [address] XRay Report Signed Patient: Aleksandr Sanchez MR#: [id number] : 1940 Acct:[id number] Age/Sex: 83 / F ADM Date: 06/18/24 Loc: XDS Room: Type: REG CLI Attending Dr: Sheldon Xie DO Copies to: [...] Gray Mukherjee M.D.06/18/2024 6:14 PM Dictation Location: [place] [address] Transcribed By: [facility] 06/18/241813 Dictated By: Gray Mukherjee II, MD 06/18/241812 Signed By: 06/18/241813 Normal [facility] XR ribs RT 2Von 06-18-2024 XR ribs RT 2V [facility] [place] [address] XRay Report Signed Patient: Aleksandr Sanchez MR#: [id number] : 1940 Acct:[id number] Age/Sex: 83 / F ADM Date: 06/18/24 Loc: XDS Room: Type: REG CLI Attending Dr: Sheldon Xie DO Copies to: Sheldon Xie DO Ordering Provider: Sheldon Xie DO Date of Service: 06/18/24 XR/XR cervical spine 5V*: W19.XXXA - Unspecified fall, initial encounter ([id number]) XR/XR ribs RT 2V: W19.XXXA - Unspecified fall, initial encounter ([id number]) XR/XR sacrum coccyx min 2V: W19.XXXA - [...] Latonya Cueva M.D.06/18/2024 11:09 PM Dictation Location: [place] [address] Transcribed By: BRANDON 06/18/242308 Dictated By: Latonya Cueva MD 06/18/242299 Signed By: 06/18/242308 Normal [facility] Influenza virus B Ag [Presen ce] in Upper respiratory specimen by Rapid immunoassayon 05-16-2024 FLUBV Ag IA.rapid Ql (Nph) Negative [facility] FLUBV Ag IA.rapid Ql (Nph) Influenza virus B Ag [Presence] in Upper respiratory specimen by Rapid immunoassay [facility] No Panel InformationOrdered By: Sheldon Xie on 05-16-2024 Quick Strep (POC) [facility] RSV (POC) [facility] Quick Strep (POC) [facility] RSV (POC) [facility] No Panel Informationon 05-16 Influenza Type A (Rapid) Negative [facility] POC SARS CoV-2 Antigen Negative [facility] XR chest 2V*on 05-16-2024 XR chest 2V* [facility] [place] [address] XRay Report Signed Patient: Aleksandr Sanchez MR#: [id number] : 1940 Acct:[id number] Age/Sex: 83 / F ADM Date: 05/16/24 Loc: [facility] Room: Type: [facility] Attending Dr: Sheldon Xie DO Copies [...] Latonya Cueva M.D.05/16/2024 1:54 PM Dictation Location: [place] [address] Transcribed By: [facility] 05/16/24 1354 Dictated By: Latonya Cueva MD 05/16/24 1351 Signed By: 05/16/24 1354 Normal [facility] Alanine aminotransferase [En zymatic activity/volume] in Serum or PlasmaOrdered By: Sheldon Xie on 05-15-2024 ALT [Catalytic activity/Vol] 10 U/L Normal [facility] Comment on above: Performed By: #### L IPID, CBC, CMP, TSH3 #### [facility] [address] [place] [address] ALT [Catalytic activity/Vol] Alanine aminotransferase [Enzymatic activity/volume] in Serum or Plasma [facility] Albumin [Mass/volume] in Ser um or Plasma by Bromocresol green (BCG) dye binding methoOrdered By: Sheldon Xie on 05-15-2024 Albumin BCG dye [Mass/Vol] 3.8 g/dL 3.5-5.7 [facility] Albumin BCG dye [Mass/Vol] Albumin [Mass/volume] in Serum or Plasma by Bromocresol green (BCG) dye binding metho 3.5-5.7 [facility] Alkaline phosphatase [Enzyma tic activity/volume] in Serum or PlasmaOrdered By: Sheldon Xie on 05-15-2024 ALP [Catalytic activity/Vol] 73 U/L Normal 34-104 [facility] Comment on above: Performed By: #### L IPID, CBC, CMP, TSH3 #### [facility] [address] ALP [Catalytic activity/Vol] Alkaline phosphatase [Enzymatic activity/volume] in Serum or Plasma 34-104 [facility] Aspartate aminotransferase [ Enzymatic activity/volume] in Serum or PlasmaOrdered By: Sheldon Xie on 05-15-2024 AST [Catalytic activity/Vol] 16 U/L Normal 13-39 [facility] Comment on above: Performed By: #### L IPID, CBC, CMP, TSH3 #### [address] AST [Catalytic activity/Vol] Aspartate aminotransferase [Enzymatic activity/volume] in Serum or Plasma 1339 [facility] Automated basophil %Ordered By: Sheldon Xie on 05-15-2024 Basophils/100 WBC (Bld) 1.6 % Normal . [facility] Comment on above: Performed By: #### L IPID, CBC, CMP, TSH3 #### [address] Automated basophil countOrde red By: Sheldon Xie on 05-15-2024 Basophils (Bld) [#/Vol] 0.2 10*3/uL Normal 0.0-0.2 [facility] Comment on above: Result Comment: PERF ORMED BY: [place] [address] PATHOLOGIST AUDIOLOGY DIRECTOR JESSE ROMO M.D. Performed By: #### L IPID, CBC, CMP, TSH3 #### [address] Automated blood monocyte cou ntOrdered By: Sheldon Xie on 05-15-2024 Monocytes (Bld) [#/Vol] 0.8 10*3/uL Normal 0.0-0.8 [facility] Comment on above: Performed By: #### L IPID, CBC, CMP, TSH3 #### [address] Automated eosinophil %Ordere d By: Sheldon Xie on 05-15-2024 Eosinophils/100 WBC (Bld) 1.7 % Normal . [facility] Comment on above: Performed By: #### L IPID, CBC, CMP, TSH3 #### [facility] [address] Automated eosinophil countOr dered By: Sheldon Xie on 05-15-2024 Eosinophils (Bld) [#/Vol] 0.2 10*3/uL Normal 0.0-0.45 [facility] Comment on above: Performed By: #### L IPID, CBC, CMP, TSH3 #### [facility] [address] Automated monocyte %Ordered By: Sheldon Xie on 05-15-2024 Monocytes/100 WBC (Bld) 5.9 % Normal . [facility] Comment on above: Performed By: #### L IPID, CBC, CMP, TSH3 #### [address] Automated neutrophil %Ordere d By: Sheldon Xie on 05-15-2024 Neutrophils/100 WBC (Bld) 76.5 % Normal . [facility] Comment on above: Performed By: #### L IPID, CBC, CMP, TSH3 #### [address] Basophils Auto (Bld) [#/Vol] Ordered By: Sheldon Xie on 05-15-2024 Basophils (Bld) [#/Vol] Automated basoph il count 0.0-0.2 [facility] Basophils/100 WBC Auto (Bld) Ordered By: Sheldon Xie on 05-15-2024 Basophils/100 WBC (Bld) Automated basophil % . [facility] Bilirubin.total [Mass/volume ] in Serum or PlasmaOrdered By: Sheldon Xie on 05-15-2024 Bilirubin [Mass/Vol] 0.4 mg/dL Normal 0.3-1.0 [facility] Comment on above: Performed By: #### L IPID, CBC, CMP, TSH3 #### [facility] [address] [place] [address] Bilirubin [Mass/Vol] Bilirubin.total [Mass/volume] in Serum or Plasma 0.3-1.0 [facility] Calcium [Mass/volume] in Ser um or PlasmaOrdered By: Sheldon Xie on 05-15-2024 Calcium [Mass/Vol] 9.6 mg/dL Normal 8.6-10.3 [facility] Comment on above: Performed By: #### L IPID, CBC, CMP, TSH3 #### [facility] [address] [place] [id number] [facility] Calcium [Mass/Vol] Calcium [Mass/volume ] in Serum or Plasma 8.6-10.3 [facility] Carbon dioxide, total [Moles /volume] in Serum or PlasmaOrdered By: Sheldon Xie on 05-15-2024 CO2 [Moles/Vol] 28.7 mmol/L Normal 21.0-31.0 [facility] Comment on above: Performed By: #### L IPID, CBC, CMP, TSH3 #### [facility] [address] [place] [id number] [facility] CO2 [Moles/Vol] Carbon dioxide, tota l [Moles/volume] in Serum or Plasma 21.0-31.0 [facility] Chloride [Moles/volume] in S cecilia or PlasmaOrdered By: Sheldon Xie on 05-15-2024 Chloride [Moles/Vol] 105 mmol/L Normal 98-107 [facility] Comment on above: Performed By: #### L IPID, CBC, CMP, TSH3 #### [facility] [address] [place] [id number] [facility] Chloride [Moles/Vol] Chloride [Moles/volume] in Serum or Plasma 98-107 [facility] Cholesterol [Mass/volume] in Serum or PlasmaOrdered By: Sheldon Xie on 05-15-2024 Cholesterol [Mass/Vol] 137 mg/dL Low 140-[address] [facility] Comment on above: Chol less than 200 m g/dl low riskChol 201-239 mg/dl borderline riskChol 240 mg/dl and greater high risk Result Comment: Chol less than 200 mg/dl low risk Chol 201-239 mg/dl borderline risk Chol 240 mg/dl and greater high risk Performed By: #### L IPID, CBC, CMP, TSH3 #### [facility] [address] Cholesterol [Mass/Vol] Cholesterol [Mass/volume] in Serum or Plasma Low 140-200 [facility] Comment on above: Chol less than 200 m g/dl low riskChol 201-239 mg/dl borderline riskChol 240 mg/dl and greater high risk Cholesterol in HDL [Mass/vol ume] in Serum or PlasmaOrdered By: Sheldon Xie on 05-15-2024 Cholesterol in HDL [Mass/Vol] Serum or plasma high density lipoprotein (HDL) cholesterol measurement [facility] Comment on above: HDL CHOL ATP-III CLA SSIFICATION Cardiovascular RiskHDL > or equal to 60 mg/dL LOWHDL < 40 mg/dL HIGH Cholesterol in LDL Calc [Mas s/Vol]Ordered By: Sheldon Xie on 05-15-2024 Cholesterol in LDL [Mass/Vol] 73 mg/dL 0-100 [facility] Comment on above: LDL ATP III CLASSIFI CATIONLDL less than 100 mg/dL OptimalLDL 100-129 mg/dL Near or above optimalLDL 130-159 mg/dL Borderline highLDL 160-189 mg/dL HighLDL greater than 189 mg/dL Very high Cholesterol in LDL [Mass/Vol] Cholesterol in LDL [Mass/volume] in Serum or Plasma by calculation 0-100 [facility] Comment on above: LDL ATP III CLASSIFI CATIONLDL less than 100 mg/dL OptimalLDL 100-129 mg/dL Near or above optimalLDL 130-159 mg/dL Borderline highLDL 160-189 mg/dL HighLDL greater than 189 mg/dL Very high Cholesterol in VLDL Calc [Ma ss/Vol]Ordered By: Sheldon Xie on 05-15-2024 Cholesterol in VLDL [Mass/Vol] 25 mg/dL [facility] Cholesterol in VLDL [Mass/Vol] Cholesterol in VLDL [Mass/volume] in Serum or Plasma by calculation [facility] Complete Blood Count Auto Di ffon 05-15-2024 Mean Corpuscular HGB Conc 32.9 g/dL Normal 32.0-35.0 [facility] Comment on above: Performed By: #### L IPID, CBC, CMP, TSH3 #### [facility] [address] NRBC% 0.0 /100{WBC} Normal 0-0.5 [facility] Comment on above: Performed By: #### L IPID, CBC, CMP, TSH3 #### [facility] [address] [place] [address] Comprehensive Metabolic Pane julisa 05-15-2024 Albumin [Mass/Vol] 3.8 g/dL Normal 3.5-5.7 [facility] Comment on above: Performed By: #### L IPID, CBC, CMP, TSH3 #### [place] [address] [place] GFR/1.73 sq M.predicted MDRD (S/P/Bld) [Vol rate/Area] mL/min/{1.73_m2} Normal [facility] Comment on above: Performed By: #### L IPID, CBC, CMP, TSH3 #### [facility] [address] [place] [address] Creatinine [Mass/volume] in Serum or PlasmaOrdered By: Sheldon Xie on 05-15-2024 Creatinine [Mass/Vol] 0.90 mg/dL Normal 0.60-1.20 [facility] Comment on above: Performed By: #### L IPID, CBC, CMP, TSH3 #### [address] Creatinine [Mass/Vol] Creatinine [Mass/volume] in Serum or Plasma 0.60-1.20 [facility] Eosinophils Auto (Bld) [#/Vo l]Ordered By: Sheldon Xie on 05-15-2024 Eosinophils (Bld) [#/Vol] Automated eosinophil count 0.0-0.45 [facility] Eosinophils/100 WBC Auto (Bl d)Ordered By: Sheldon Xie on 05-15-2024 Eosinophils/100 WBC (Bld) Automated eosinophil % . [facility] Erythrocyte distribution wid th Auto (RBC) [Ratio]Ordered By: Sheldon Xie on 05-15-2024 Erythrocyte distribution width (RBC) [Ratio] Erythrocyte distribution width [Ratio] by Automated count 11.9-15.3 [facility] Erythrocyte distribution wid th [Ratio] by Automated countOrdered By: Sheldon Xie on 05-15-2024 Erythrocyte distribution width (RBC) [Ratio] 14.1 % Normal 11.9-15.3 [facility] Comment on above: Performed By: #### L IPID, CBC, CMP, TSH3 #### [facility] [address] Erythrocytes [#/volume] in B lood by Automated countOrdered By: Sheldon Xie on 05-15-2024 RBC (Bld) [#/Vol] 3.82 10*6/uL Normal 3.60-5.00 [facility] Comment on above: Performed By: #### L IPID, CBC, CMP, TSH3 #### [facility] [address] Globulin Calc (S) [Mass/Vol] Ordered By: Sheldon Xie on 05-15-2024 Globulin (S) [Mass/Vol] Serum globulin measurement by calculation (mass/volume) [facility] Glucose [Mass/volume] in Ser um or PlasmaOrdered By: Sheldon Xie on 05-15-2024 Glucose [Mass/Vol] 91 mg/dL Normal 70-100 [facility] Comment on above: ADA recommended refe rence rangeRandom Glucose Reference Range is dependent on time and content of last meal. Glucose of more than 200 mg/dL in a nonstressed, ambulatory subject supports the diagnosis of Diabetes Mellitus. Result Comment: [place] Glucose Reference Range is dependent on time and content of last meal. Glucose of more than 200 mg/dL in a nonstressed, ambulatory subject supports the diagnosis of Diabetes Mellitus. ADA recommended reference range Performed By: #### L IPID, CBC, CMP, TSH3 #### [facility] [address] [place] [id number] [facility] Glucose [Mass/Vol] Glucose [Mass/volume ] in Serum or Plasma 70-100 [facility] Comment on above: ADA recommended refe rence rangeRandom Glucose Reference Range is dependent on time and content of last meal. Glucose of more than 200 mg/dL in a nonstressed, ambulatory subject supports the diagnosis of Diabetes Mellitus. Hematocrit Auto (Bld) [Volum e fraction]Ordered By: Sheldon Xie on 05-15-2024 Hematocrit (Bld) [Volume fraction] Hematocrit [Volume Fraction] of Blood by Automated count 34.0-46.4 [facility] Hematocrit [Volume Fraction] of Blood by Automated countOrdered By: Sheldon Xie on 05-15-2024 Hematocrit (Bld) [Volume fraction] 36.7 % Normal 34.0-46.4 [facility] Comment on above: Performed By: #### L IPID, CBC, CMP, TSH3 #### [facility] [address] Hemoglobin [Mass/volume] in BloodOrdered By: Sheldon Xie on 05-15-2024 Hemoglobin (Bld) [Mass/Vol] 12.1 g/dL Normal 11.8-15.4 [facility] Comment on above: Performed By: #### L IPID, CBC, CMP, TSH3 #### [facility] [address] [place] [address] Hemoglobin (Bld) [Mass/Vol] Hemoglobin [Mass/volume] in Blood 11.8-15.4 [facility] Leukocytes [#/volume] correc sandra for nucleated erythrocytes in Blood by Automated counOrdered By: Sheldon Xie on 05-15-2024 WBC corrected for nucl RBC Auto (Bld) [#/Vol] 12.9 10*3/uL High 3.8-11.6 [facility] WBC corrected for nucl RBC Auto (Bld) [#/Vol] Leukocytes [#/volume] corrected for nucleated erythrocytes in Blood by Automated coun High 3.8-11.6 [facility] Leukocytes [#/volume] in Blo od by Automated countOrdered By: Sheldon Xie on 05-15-2024 WBC (Bld) [#/Vol] 12.9 10*3/uL High 3.8-11.6 [facility] Comment on above: Performed By: #### L IPID, CBC, CMP, TSH3 #### [facility] [address] [place] [address] Lipid Panelon 05-15-2024 LDL Cholesterol,Calculated 73 mg/dL Normal 0-100 [facility] Comment on above: Result Comment: LDL ATP III CLASSIFICATION LDL less than 100 mg/dL Optimal LDL 100-129 mg/dL Near or above optimal LDL 130-159 mg/dL Borderline high LDL 160-189 mg/dL High LDL greater than 189 mg/dL Very high Performed By: #### L IPID, CBC, CMP, TSH3 #### [address] Triglyceride w/Reflex 129 mg/dL Normal 0-149 [facility] Comment on above: Result Comment: TRIG ATP III CLASSIFICATION TRIG less than 150 mg/dL Normal TRIG 150-199 mg/dL Borderline high TRIG 200-500 mg/dL High TRIG greater than 500 mg/dL Very high Standard traceable to the Center for Disease Conrtrol and Prevention (CDC) test method. Performed By: #### L IPID, CBC, CMP, TSH3 #### [address] VLDL CHOLESTEROL 25 mg/dL Normal [facility] Comment on above: Performed By: #### L IPID, CBC, CMP, TSH3 #### [address] Lymphocytes Auto (Bld) [#/Vo l]Ordered By: Sheldon Xie on 05-15-2024 Lymphocytes (Bld) [#/Vol] Lymphocytes [#/volume] in Blood by Automated count 1.00-4.8 [facility] Lymphocytes [#/volume] in Bl ood by Automated countOrdered By: Sheldon Xie on 05-15-2024 Lymphocytes (Bld) [#/Vol] 1.8 10*3/uL Normal 1.00-4.8 [facility] Comment on above: Performed By: #### L IPID, CBC, CMP, TSH3 #### [address] Lymphocytes/100 WBC Auto (Bl d)Ordered By: Sheldon Xie on 05-15-2024 Lymphocytes/100 WBC (Bld) Lymphocytes/100 leukocytes in Blood by Automated count . [facility] Lymphocytes/100 leukocytes i n Blood by Automated countOrdered By: Sheldon Xie on 05-15-2024 Lymphocytes/100 WBC (Bld) 14.3 % Normal . [facility] Comment on above: Performed By: #### L IPID, CBC, CMP, TSH3 #### [facility] [address] MCH Auto (RBC) [Entitic mass ]Ordered By: Sheldon Xie on 05-15-2024 MCH (RBC) [Entitic mass] MCH [Entitic mass] by Automated count 24.7-34.3 [facility] MCH [Entitic mass] by Automa sandra countOrdered By: Sheldon Xie on 05-15-2024 MCH (RBC) [Entitic mass] 31.6 pg Normal 24.7-34.3 [facility] Comment on above: Performed By: #### L IPID, CBC, CMP, TSH3 #### [facility] [address] MCHC Auto (RBC) [Mass/Vol]Or dered By: Sheldon Xie on 05-15-2024 MCHC (RBC) [Mass/Vol] 32.9 g/dL 32.0-35.0 [facility] MCHC (RBC) [Mass/Vol] MCHC [Mass/volume] by Automated count 32.0-35.0 [facility] MCV Auto (RBC) [Entitic vol] Ordered By: Sheldon Xie on 05-15-2024 MCV (RBC) [Entitic vol] MCV [Entitic vol ume] by Automated count 80-100 [facility] MCV [Entitic volume] by Auto mated countOrdered By: Sheldon Xie on 05-15-2024 MCV (RBC) [Entitic vol] 96.0 fL Normal 80-100 [facility] Comment on above: Performed By: #### L IPID, CBC, CMP, TSH3 #### [facility] [address] Monocytes Auto (Bld) [#/Vol] Ordered By: Sheldon Xie on 05-15-2024 Monocytes (Bld) [#/Vol] Automated blood monocyte count 0.0-0.8 [facility] Monocytes/100 WBC Auto (Bld) Ordered By: Sheldon Xie on 05-15-2024 Monocytes/100 WBC (Bld) Automated monocyte % . [facility] Neutrophils Auto (Bld) [#/Vo l]Ordered By: Sheldon Xie on 05-15-2024 Neutrophils (Bld) [#/Vol] Neutrophils [#/volume] in Blood by Automated count High 1.8-7.7 [facility] Neutrophils [#/volume] in Bl ood by Automated countOrdered By: Sheldon Xie on 05-15-2024 Neutrophils (Bld) [#/Vol] 9.8 10*3/uL High 1.8-7.7 [facility] Comment on above: Performed By: #### L IPID, CBC, CMP, TSH3 #### [address] Neutrophils/100 WBC Auto (Bl d)Ordered By: Sheldon Xie on 05-15-2024 Neutrophils/100 WBC (Bld) Automated neutrophil % . [facility] No Panel InformationOrdered By: Sheldon Xie on 05-15-2024 Estimated GFR (CKD-EPI) > 60.0 mL/Min [facility] Creatinine Clearance (Chem N/A [facility] Nucleated erythrocytes [Pres ence] in Blood by Automated countOrdered By: Sheldon Xie on 05-15-2024 Nucleated RBC Auto Ql (Bld) 0.0 /100{WBC} 0-0.5 [facility] Nucleated RBC Auto Ql (Bld) Nucleated erythrocytes [Presence] in Blood by Automated count 0-0.5 [facility] Platelet mean volume Auto (B ld) [Entitic vol]Ordered By: Sheldon Xie on 05-15-2024 Platelet mean volume (Bld) [Entitic vol] Platelet mean volume [Entitic volume] in Blood by Automated count 6.3-10.7 [facility] Platelet mean volume [Entiti c volume] in Blood by Automated countOrdered By: Sheldon Xie on 05-15-2024 Platelet mean volume (Bld) [Entitic vol] 7.8 fL Normal 6.3-10.7 [facility] Comment on above: Performed By: #### L IPID, CBC, CMP, TSH3 #### [facility] [address] Platelets Auto (Bld) [#/Vol] Ordered By: Sheldon Xie on 05-15-2024 Platelets (Bld) [#/Vol] Platelets [#/vol ume] in Blood by Automated count High 150-450 [facility] Platelets [#/volume] in Bloo d by Automated countOrdered By: Sheldon Xie on 05-15-2024 Platelets (Bld) [#/Vol] 465 10*3/uL High 150-450 [facility] Comment on above: Performed By: #### L IPID, CBC, CMP, TSH3 #### [facility] [address] [place] [address] [place] Potassium [Moles/volume] in Serum or PlasmaOrdered By: Sheldon Xie on 05-15-2024 Potassium [Moles/Vol] 4.7 mmol/L Normal 3.5-5.1 [facility] Comment on above: Performed By: #### L IPID, CBC, CMP, TSH3 #### [facility] [address] Potassium [Moles/Vol] Potassium [Moles/volume] in Serum or Plasma 3.5-5.1 [facility] Protein [Mass/volume] in Ser um or PlasmaOrdered By: Sheldon Xie on 05-15-2024 Protein [Mass/Vol] 6.7 g/dL Normal 6.4-8.9 [facility] Comment on above: Performed By: #### L IPID, CBC, CMP, TSH3 #### [facility] [address] [place] [address] [place] Protein [Mass/Vol] Protein [Mass/volume ] in Serum or Plasma 6.4-8.9 [facility] RBC Auto (Bld) [#/Vol]Ordere d By: Sheldon Xie on 05-15-2024 RBC (Bld) [#/Vol] Erythrocytes [#/volume] in Blood by Automated count 3.60-5.00 [facility] Serum globulin measurement b y calculation (mass/volume)Ordered By: Sheldon Xie on 05-15-2024 Globulin (S) [Mass/Vol] 2.9 g/dL Normal [facility] Comment on above: Performed By: #### L IPID, CBC, CMP, TSH3 #### [facility] [address] [place] [address] Serum or plasma albumin/glob ulin mass ratioOrdered By: Sheldon Xie on 05-15-2024 Albumin/Globulin [Mass ratio] 1.3 {ratio} Normal [facility] Comment on above: Performed By: #### L IPID, CBC, CMP, TSH3 #### [facility] [address] [place] [address] Albumin/Globulin [Mass ratio] Serum or plasma albumin/globulin mass ratio [facility] Serum or plasma anion gap de terminationOrdered By: Sheldon Xie on 05-15-2024 Anion gap [Moles/Vol] 12.0 mmol/L Normal 6.0-15.[address] [facility] Comment on above: Performed By: #### L IPID, CBC, CMP, TSH3 #### [facility] [address] [place] [address] Anion gap [Moles/Vol] Serum or plasma an ion gap determination 6.0-15.0 [facility] Serum or plasma high density lipoprotein (HDL) cholesterol measurementOrdered By: Sheldon Xie on 05-15-2024 Cholesterol in HDL [Mass/Vol] 38 mg/dL Normal 23-92 [facility] Comment on above: HDL CHOL ATP-III CLA SSIFICATION Cardiovascular RiskHDL > or equal to 60 mg/dL LOWHDL < 40 mg/dL HIGH Result Comment: HDL CHOL ATP-III CLASSIFICATION Cardiovascular Risk HDL > or equal to 60 mg/dL LOW HDL < 40 mg/dL HIGH Performed By: #### L IPID, CBC, CMP, TSH3 #### [facility] [address] [place] [address] Serum or plasma total choles terol/high density lipoprotein (HDL) cholesterol mass ratOrdered By: Sheldon Xie on 09-18-2024 Cholesterol.total/Renu sterol in HDL [Mass ratio] 3.6 {ratio} Normal <5.0 [facility] Comment on above: Performed By: #### L IPID, CBC, CMP, TSH3 #### [facility] [address] Cholesterol.total/Renu sterol in HDL [Mass ratio] Serum or plasma total cholesterol/high density lipoprotein (HDL) cholesterol mass rat <5.0 [facility] Sodium [Moles/volume] in Ser um or PlasmaOrdered By: Sheldon Xie on 05-15-2024 Sodium [Moles/Vol] 141 mmol/L Normal 136-145 [facility] Comment on above: Performed By: #### L IPID, CBC, CMP, TSH3 #### [facility] [address] Sodium [Moles/Vol] Sodium [Moles/volume ] in Serum or Plasma 136-145 [facility] Thyrotropin [Units/volume] i n Serum or PlasmaOrdered By: Sheldon Xie on 05-15-2024 TSH Qn 1.60 m[IU]/L Normal 0.45-5.33 [facility] Comment on above: Result Comment: PERF ORMED BY: [place] [address] PATHOLOGIST AUDIOLOGY DIRECTOR JESSE ROMO M.D. Performed By: #### L IPID, CBC, CMP, TSH3 ####[facility] TSH Qn Thyrotropin [Units/volume] in Serum or Plasma 0.45-5.33 [facility] Triglyceride [Mass/volume] i n Serum or PlasmaOrdered By: Sheldon Xie on 05-15-2024 Triglyceride [Mass/Vol] 129 mg/dL 0-149 [facility] Comment on above: TRIG ATP III CLASSIF ICATIONTRIG less than 150 mg/dL NormalTRIG 150-199 mg/dL Borderline highTRIG 200-500 mg/dL High TRIG greater than 500 mg/dL Very highStandard traceable to the Center for Disease Conrtrol and Prevention (CDC) test method. Triglyceride [Mass/Vol] Triglyceride [Mass/volume] in Serum or Plasma 0-149 [facility] Comment on above: TRIG ATP III CLASSIF ICATIONTRIG less than 150 mg/dL NormalTRIG 150-199 mg/dL Borderline highTRIG 200-500 mg/dL High TRIG greater than 500 mg/dL Very highStandard traceable to the Center for Disease Conrtrol and Prevention (CDC) test method. Urea nitrogen [Mass/volume] in Serum or PlasmaOrdered By: Sheldon Xie on 05-15-2024 Urea nitrogen [Mass/Vol] 25 mg/dL Normal 03-21 [facility] Comment on above: Performed By: #### L IPID, CBC, CMP, TSH3 #### [facility] [address] Urea nitrogen [Mass/Vol] Urea nitrogen [Mass/volume] in Serum or Plasma 03-21 [facility] WBC Auto (Bld) [#/Vol]Ordere d By: Sheldon Xie on 05-15-2024 WBC (Bld) [#/Vol] Leukocytes [#/volume ] in Blood by Automated count High 3.8-11.6 [facility] Estimated glomerular filtrat ion rate (GFR) non- Americanon 12-20-2023 GFR/1.73 sq M.predicted among non-blacks MDRD (S/P/Bld) [Vol rate/Area] 54 mL/min/{1.73_m2} Low >=60 [facility] Laboratory - Chemistry and C hemistry - challengeon 12-20-2023 Calcium [Mass/Vol] 9.5 mg/dL 8.5-10.1 [facility] Creatinine [Mass/Vol] 0.98 mg/dL 0.55-1.02 [facility] GFR/1.73 sq M.predicted MDRD (S/P/Bld) [Vol rate/Area] mL/min/{1.73_m2} >=60 [facility] XR hip LT 1Von 11-20-2023 XR hip LT 1V [facility] [address] [place] [address] XRay Report Signed Patient: Aleksandr Sanchez MR#: [id number] : 1940 Acct:[id number] Age/Sex: 83 / F ADM Date: 11/20/23 [facility]: Type[facility] Attending Dr: Sheldon Xie DO Copies [...] Latonya Cueva M.D.11/20/2023 3:17 PM Dictation Location: [place] [address] Transcribed By: [facility] 11/20/23 151 Dictated By: Latonya Cueva MD 11/20/231514 Signed By: 11/20/23 151 Normal [facility] Alanine aminotransferase [En zymatic activity/volume] in Serum or PlasmaOrdered By: Sheldon Xie on 09-26-2023 ALT [Catalytic activity/Vol] 12 U/L 7-52 [facility] Albumin [Mass/volume] in Ser um or Plasma by Bromocresol green (BCG) dye binding methoOrdered By: Sheldon Xie on 09-26-2023 Albumin BCG dye [Mass/Vol] 4.1 g/dL 3.5-5.7 [facility] Alkaline phosphatase [Enzyma tic activity/volume] in Serum or PlasmaOrdered By: Sheldon Xie on 09-26-2023 ALP [Catalytic activity/Vol] 54 U/L 34-104 [facility] Aspartate aminotransferase [ Enzymatic activity/volume] in Serum or PlasmaOrdered By: Sheldon Xie on 09-26-2023 AST [Catalytic activity/Vol] 18 U/L 13-39 [facility] Basophils Auto (Bld) [#/Vol] Ordered By: Sheldon Xie on 09-26-2023 Basophils (Bld) [#/Vol] 0.1 10*3/uL 0.0-0.2 [facility] Basophils/100 WBC Auto (Bld) Ordered By: Sheldon Xie on 09-26-2023 Basophils/100 WBC (Bld) 1.2 % . [facility] Bilirubin.total [Mass/volume ] in Serum or PlasmaOrdered By: Sheldon Xie on 09-26-2023 Bilirubin [Mass/Vol] 0.3 mg/dL 0.3-1.0 [facility] Calcium [Mass/volume] in Ser um or PlasmaOrdered By: Sheldon Xie on 09-26-2023 Calcium [Mass/Vol] 9.4 mg/dL 8.6-10.3 [facility] Carbon dioxide, total [Moles /volume] in Serum or PlasmaOrdered By: Sheldon Xie on 09-26-2023 CO2 [Moles/Vol] 29.7 mmol/L 21.0-31.0 [facility] Chloride [Moles/volume] in S cecilia or PlasmaOrdered By: Sheldon Xie on 09-26-2023 Chloride [Moles/Vol] 111 mmol/L 98-107 [facility] Cholesterol [Mass/volume] in Serum or PlasmaOrdered By: Sheldon Xie on 09-26-2023 Cholesterol [Mass/Vol] 170 mg/dL 140-[address] [facility] Comment on above: Chol less than 200 m g/dl low riskChol 201-239 mg/dl borderline riskChol 240 mg/dl and greater high risk Cholesterol in LDL Calc [Mas s/Vol]Ordered By: Sheldon Xie on 09-26-2023 Cholesterol in LDL [Mass/Vol] 96 mg/dL 0-100 [facility] Comment on above: LDL ATP III CLASSIFI CATIONLDL less than 100 mg/dL OptimalLDL 100-129 mg/dL Near or above optimalLDL 130-159 mg/dL Borderline highLDL 160-189 mg/dL HighLDL greater than 189 mg/dL Very high Cholesterol in VLDL Calc [Ma ss/Vol]Ordered By: Sheldon Xie on 09-26-2023 Cholesterol in VLDL [Mass/Vol] 22 mg/dL [facility] Creatinine [Mass/volume] in Serum or PlasmaOrdered By: Sheldon Xie on 09-26-2023 Creatinine [Mass/Vol] 1.02 mg/dL 0.60-1.20 [facility] Eosinophils Auto (Bld) [#/Vo l]Ordered By: Sheldon Xie on 09-26-2023 Eosinophils (Bld) [#/Vol] 0.4 10*3/uL 0.0-0.45 [facility] Eosinophils/100 WBC Auto (Bl d)Ordered By: Sheldon Xie on 09-26-2023 Eosinophils/100 WBC (Bld) 4.5 % . [facility] Erythrocyte distribution wid th Auto (RBC) [Ratio]Ordered By: Sheldon Xie on 09-26-2023 Erythrocyte distribution width (RBC) [Ratio] 14.0 % 11.9-15.3 [facility] Globulin Calc (S) [Mass/Vol] Ordered By: Sheldon Xie on 09-26-2023 Globulin (S) [Mass/Vol] 2.5 g/dL [facility] Glucose [Mass/volume] in Ser um or PlasmaOrdered By: Sheldon Xie on 09-26-2023 Glucose [Mass/Vol] 92 mg/dL 70-100 [facility] Comment on above: ADA recommended refe rence rangeRandom Glucose Reference Range is dependent on time and content of last meal. Glucose of more than 200 mg/dL in a nonstressed, ambulatory subject supports the diagnosis of Diabetes Mellitus. Hematocrit Auto (Bld) [Volum e fraction]Ordered By: Sheldon Xie on 09-26-2023 Hematocrit (Bld) [Volume fraction] 38.6 % 34.0-46.4 [facility] Hemoglobin [Mass/volume] in BloodOrdered By: Sheldon Xie on 09-26-2023 Hemoglobin (Bld) [Mass/Vol] 12.4 g/dL 11.8-15.4 [facility] Leukocytes [#/volume] correc sandra for nucleated erythrocytes in Blood by Automated counOrdered By: Sheldon Xie on 09-26-2023 WBC corrected for nucl RBC Auto (Bld) [#/Vol] 8.1 10*3/uL 3.8-11.6 [facility] Lymphocytes Auto (Bld) [#/Vo l]Ordered By: Sheldon Xie on 09-26-2023 Lymphocytes (Bld) [#/Vol] 2.1 10*3/uL 1.00-4.8 [facility] Lymphocytes/100 WBC Auto (Bl d)Ordered By: Sheldon Xie on 09-26-2023 Lymphocytes/100 WBC (Bld) 26.4 % . [facility] MCH Auto (RBC) [Entitic mass ]Ordered By: Sheldon Xie on 09-26-2023 MCH (RBC) [Entitic mass] 31.2 pg 24.7-34.3 [facility] MCHC Auto (RBC) [Mass/Vol]Or dered By: Sheldon Xie on 09-26-2023 MCHC (RBC) [Mass/Vol] 32.1 g/dL 32.0-35.0 [facility] MCV Auto (RBC) [Entitic vol] Ordered By: Sheldon Xie on 09-26-2023 MCV (RBC) [Entitic vol] 97.2 fL 80-100 [facility] Monocytes Auto (Bld) [#/Vol] Ordered By: Sheldon Xie on 09-26-2023 Monocytes (Bld) [#/Vol] 0.6 10*3/uL 0.0-0.8 [facility] Monocytes/100 WBC Auto (Bld) Ordered By: Sheldon Xie on 09-26-2023 Monocytes/100 WBC (Bld) 8.0 % . [facility] Neutrophils Auto (Bld) [#/Vo l]Ordered By: Sheldon Xie on 09-26-2023 Neutrophils (Bld) [#/Vol] 4.9 10*3/uL 1.8-7.7 [facility] Neutrophils/100 WBC Auto (Bl d)Ordered By: Sheldon Xie on 09-26-2023 Neutrophils/100 WBC (Bld) 59.9 % . [facility] No Panel InformationOrdered By: Sheldon Xie on 09-26-2023 Estimated GFR (CKD-EPI) 54.927 mL/Min [facility] Creatinine Clearance (Chem N/A [facility] Nucleated erythrocytes [Pres ence] in Blood by Automated countOrdered By: Sheldon Xie on 09-26-2023 Nucleated RBC Auto Ql (Bld) 0.1 /100{WBC} 0-0.5 [facility] Platelet mean volume Auto (B ld) [Entitic vol]Ordered By: Sheldon Xie on 09-26-2023 Platelet mean volume (Bld) [Entitic vol] 8.4 fL 6.3-10.7 [facility] Platelets Auto (Bld) [#/Vol] Ordered By: Sheldon Xie on 09-26-2023 Platelets (Bld) [#/Vol] 324 10*3/uL 150-450 [facility] Potassium [Moles/volume] in Serum or PlasmaOrdered By: Sheldon Xie on 09-26-2023 Potassium [Moles/Vol] 4.8 mmol/L 3.5-5.1 [facility] Protein [Mass/volume] in Ser um or PlasmaOrdered By: Sheldon Xie on 09-26-2023 Protein [Mass/Vol] 6.6 g/dL 6.4-8.9 [facility] RBC Auto (Bld) [#/Vol]Ordere d By: Sheldon Xie on 09-26-2023 RBC (Bld) [#/Vol] 3.97 10*6/uL 3.60-5.00 [facility] Serum or plasma albumin/glob ulin mass ratioOrdered By: Sheldon Xie on 09-26-2023 Albumin/Globulin [Mass ratio] 1.6 {ratio} [facility] Serum or plasma anion gap de terminationOrdered By: Sheldon Xie on 09-26-2023 Anion gap [Moles/Vol] 10.1 mmol/L 6.0-15.[address] [facility] Serum or plasma high density lipoprotein (HDL) cholesterol measurementOrdered By: Sheldon Xie on 09-26-2023 Cholesterol in HDL [Mass/Vol] 52 mg/dL 23-92 [facility] Comment on above: HDL CHOL ATP-III CLA SSIFICATION Cardiovascular RiskHDL > or equal to 60 mg/dL LOWHDL < 40 mg/dL HIGH Serum or plasma total choles terol/high density lipoprotein (HDL) cholesterol mass ratOrdered By: Sheldon Xie on 09-26-2023 Cholesterol.total/Renu sterol in HDL [Mass ratio] 3.3 {ratio} <5.0 [facility] Sodium [Moles/volume] in Ser um or PlasmaOrdered By: Sheldon Xie on 09-26-2023 Sodium [Moles/Vol] 146 mmol/L 136-145 [facility] Thyrotropin [Units/volume] i n Serum or PlasmaOrdered By: Sheldon Xie on 09-26-2023 TSH Qn 2.47 m[IU]/L 0.45-5.33 [facility] Triglyceride [Mass/volume] i n Serum or PlasmaOrdered By: Sheldon Xie on 09-26-2023 Triglyceride [Mass/Vol] 112 mg/dL 0-149 [facility] Comment on above: TRIG ATP III CLASSIF ICATIONTRIG less than 150 mg/dL NormalTRIG 150-199 mg/dL Borderline highTRIG 200-500 mg/dL High TRIG greater than 500 mg/dL Very highStandard traceable to the Center for Disease Conrtrol and Prevention (CDC) test method. Urea nitrogen [Mass/volume] in Serum or PlasmaOrdered By: Sheldon Xie on 09-26-2023 Urea nitrogen [Mass/Vol] 30 mg/dL 7 [facility] WBC Auto (Bld) [#/Vol]Ordere d By: Sheldon Xie on 09-26-2023 WBC (Bld) [#/Vol] 8.1 10*3/uL 3.8-11.6 [facility] Alanine aminotransferase [En zymatic activity/volume] in Serum or PlasmaOrdered By: Sheldon Xie on 05-24-2023 ALT [Catalytic activity/Vol] 13 U/L [facility] Albumin [Mass/volume] in Ser um or Plasma by Bromocresol green (BCG) dye binding methoOrdered By: Sheldon Xie on 05-24-2023 Albumin BCG dye [Mass/Vol] 4.2 g/dL 3.5-5.7 [facility] Alkaline phosphatase [Enzyma tic activity/volume] in Serum or PlasmaOrdered By: Sheldon Xie on 05-24-2023 ALP [Catalytic activity/Vol] 55 U/L 34-104 [facility] Aspartate aminotransferase [ Enzymatic activity/volume] in Serum or PlasmaOrdered By: Sheldon Xie on 05-24-2023 AST [Catalytic activity/Vol] 20 U/L 13-39 [facility] Basophils Auto (Bld) [#/Vol] Ordered By: Sheldon Xie on 05-24-2023 Basophils (Bld) [#/Vol] 0.1 10*3/uL 0.0-0.2 [facility] Basophils/100 WBC Auto (Bld) Ordered By: Sheldon Xie on 05-24-2023 Basophils/100 WBC (Bld) 1.0 % . [facility] Bilirubin.total [Mass/volume ] in Serum or PlasmaOrdered By: Sheldon Xie on 05-24-2023 Bilirubin [Mass/Vol] 0.5 mg/dL 0.3-1.0 [facility] Calcium [Mass/volume] in Ser um or PlasmaOrdered By: Sheldon Xie on 05-24-2023 Calcium [Mass/Vol] 9.9 mg/dL 8.6-10.3 [facility] Carbon dioxide, total [Moles /volume] in Serum or PlasmaOrdered By: Sheldon Xie on 05-24-2023 CO2 [Moles/Vol] 32.5 mmol/L 21.0-31.0 [facility] Chloride [Moles/volume] in S cecilia or PlasmaOrdered By: Sheldon Xie on 05-24-2023 Chloride [Moles/Vol] 108 mmol/L 98-107 [facility] Cholesterol [Mass/volume] in Serum or PlasmaOrdered By: Sheldon Xie on 05-24-2023 Cholesterol [Mass/Vol] 176 mg/dL 140-[address] [facility] Comment on above: Chol less than 200 m g/dl low riskChol 201-239 mg/dl borderline riskChol 240 mg/dl and greater high risk Cholesterol in LDL Calc [Mas s/Vol]Ordered By: Sheldon Xie on 05-24-2023 Cholesterol in LDL [Mass/Vol] 96 mg/dL 0-100 [facility] Comment on above: LDL ATP III CLASSIFI CATIONLDL less than 100 mg/dL OptimalLDL 100-129 mg/dL Near or above optimalLDL 130-159 mg/dL Borderline highLDL 160-189 mg/dL HighLDL greater than 189 mg/dL Very high Cholesterol in VLDL Calc [Ma ss/Vol]Ordered By: Sheldon Xie on 05-24-2023 Cholesterol in VLDL [Mass/Vol] 23 mg/dL [facility] Creatinine [Mass/volume] in Serum or PlasmaOrdered By: Sheldon Xie on 05-24-2023 Creatinine [Mass/Vol] 0.92 mg/dL 0.60-1.20 [facility] Eosinophils Auto (Bld) [#/Vo l]Ordered By: Sheldon Xie on 05-24-2023 Eosinophils (Bld) [#/Vol] 0.3 10*3/uL 0.0-0.45 [facility] Eosinophils/100 WBC Auto (Bl d)Ordered By: Sheldon Xie on 05-24-2023 Eosinophils/100 WBC (Bld) 3.9 % . [facility] Erythrocyte distribution wid th Auto (RBC) [Ratio]Ordered By: Sheldon Xie on 05-24-2023 Erythrocyte distribution width (RBC) [Ratio] 13.6 % 11.9-15.3 [facility] Globulin Calc (S) [Mass/Vol] Ordered By: Sheldon Xie on 05-24-2023 Globulin (S) [Mass/Vol] 2.5 g/dL [facility] Glucose [Mass/volume] in Ser um or PlasmaOrdered By: Sheldon Xie on 05-24-2023 Glucose [Mass/Vol] 90 mg/dL 70-100 [facility] Comment on above: ADA recommended refe rence rangeRandom Glucose Reference Range is dependent on time and content of last meal. Glucose of more than 200 mg/dL in a nonstressed, ambulatory subject supports the diagnosis of Diabetes Mellitus. Hematocrit Auto (Bld) [Volum e fraction]Ordered By: Sheldon Xie on 05-24-2023 Hematocrit (Bld) [Volume fraction] 39.0 % 34.0-46.4 [facility] Hemoglobin [Mass/volume] in BloodOrdered By: Sheldon Xie on 05-24-2023 Hemoglobin (Bld) [Mass/Vol] 12.7 g/dL 11.8-15.4 [facility] Leukocytes [#/volume] correc sandra for nucleated erythrocytes in Blood by Automated counOrdered By: Sheldon Xie on 05-24-2023 WBC corrected for nucl RBC Auto (Bld) [#/Vol] 7.3 10*3/uL 3.8-11.6 [facility] Lymphocytes Auto (Bld) [#/Vo l]Ordered By: Sheldon Xie on 05-24-2023 Lymphocytes (Bld) [#/Vol] 1.8 10*3/uL 1.00-4.8 [facility] Lymphocytes/100 WBC Auto (Bl d)Ordered By: Sheldon Xie on 05-24-2023 Lymphocytes/100 WBC (Bld) 24.8 % . [facility] MCH Auto (RBC) [Entitic mass ]Ordered By: Sheldon Xie on 05-24-2023 MCH (RBC) [Entitic mass] 31.8 pg 24.7-34.3 [facility] MCHC Auto (RBC) [Mass/Vol]Or dered By: Sheldon Xie on 05-24-2023 MCHC (RBC) [Mass/Vol] 32.7 g/dL 32.0-35.0 [facility] MCV Auto (RBC) [Entitic vol] Ordered By: Sheldon Xie on 05-24-2023 MCV (RBC) [Entitic vol] 97.2 fL 80-100 [facility] Monocytes Auto (Bld) [#/Vol] Ordered By: Sheldon Xie on 05-24-2023 Monocytes (Bld) [#/Vol] 0.7 10*3/uL 0.0-0.8 [facility] Monocytes/100 WBC Auto (Bld) Ordered By: Sheldon Xie on 05-24-2023 Monocytes/100 WBC (Bld) 9.5 % . [facility] Neutrophils Auto (Bld) [#/Vo l]Ordered By: Sheldon Xie on 05-24-2023 Neutrophils (Bld) [#/Vol] 4.4 10*3/uL 1.8-7.7 [facility] Neutrophils/100 WBC Auto (Bl d)Ordered By: Sheldon Xie on 05-24-2023 Neutrophils/100 WBC (Bld) 60.8 % . [facility] No Panel InformationOrdered By: Sheldon Xie on 05-24-2023 Estimated GFR (CKD-EPI) > 60.0 mL/Min [facility] Creatinine Clearance (Chem N/A [facility] Nucleated erythrocytes [Pres ence] in Blood by Automated countOrdered By: Sheldon Xie on 05-24-2023 Nucleated RBC Auto Ql (Bld) 0.1 /100{WBC} 0-0.5 [facility] Platelet mean volume Auto (B ld) [Entitic vol]Ordered By: Sheldon Xie on 05-24-2023 Platelet mean volume (Bld) [Entitic vol] 8.5 fL 6.3-10.7 [facility] Platelets Auto (Bld) [#/Vol] Ordered By: Sheldon Xie on 05-24-2023 Platelets (Bld) [#/Vol] 303 10*3/uL 150-450 [facility] Potassium [Moles/volume] in Serum or PlasmaOrdered By: Sheldon Xie on 05-24-2023 Potassium [Moles/Vol] 4.5 mmol/L 3.5-5.1 [facility] Protein [Mass/volume] in Ser um or PlasmaOrdered By: Sheldon Xie on 05-24-2023 Protein [Mass/Vol] 6.7 g/dL 6.4-8.9 [facility] RBC Auto (Bld) [#/Vol]Ordere d By: Sheldon Xie on 05-24-2023 RBC (Bld) [#/Vol] 4.01 10*6/uL 3.60-5.00 [facility] Serum or plasma albumin/glob ulin mass ratioOrdered By: Sheldon Xie on 05-24-2023 Albumin/Globulin [Mass ratio] 1.7 {ratio} [facility] Serum or plasma anion gap de terminationOrdered By: Sheldon Xie on 05-24-2023 Anion gap [Moles/Vol] 8.0 mmol/L 6.0-15.0 [facility] Serum or plasma high density lipoprotein (HDL) cholesterol measurementOrdered By: Sheldon Xie on 05-24-2023 Cholesterol in HDL [Mass/Vol] 57 mg/dL 23- [facility] Comment on above: HDL CHOL ATP-III CLA SSIFICATION Cardiovascular RiskHDL > or equal to 60 mg/dL LOWHDL < 40 mg/dL HIGH Serum or plasma total choles terol/high density lipoprotein (HDL) cholesterol mass ratOrdered By: Sheldon Xie on 05-24-2023 Cholesterol.total/Renu sterol in HDL [Mass ratio] 3.1 {ratio} <5.0 [facility] Sodium [Moles/volume] in Ser um or PlasmaOrdered By: Sheldon Xie on 05-24-2023 Sodium [Moles/Vol] 144 mmol/L 136-145 [facility] Thyrotropin [Units/volume] i n Serum or PlasmaOrdered By: Sheldon Xie on 05-24-2023 TSH Qn 2.85 m[IU]/L 0.45-5.33 [facility] Triglyceride [Mass/volume] i n Serum or PlasmaOrdered By: Sheldon Xie on 05-24-2023 Triglyceride [Mass/Vol] 115 mg/dL 0-149 [facility] Comment on above: TRIG ATP III CLASSIF ICATIONTRIG less than 150 mg/dL NormalTRIG 150-199 mg/dL Borderline highTRIG 200-500 mg/dL High TRIG greater than 500 mg/dL Very highStandard traceable to the Center for Disease Conrtrol and Prevention (CDC) test method. Urea nitrogen [Mass/volume] in Serum or PlasmaOrdered By: Sheldon Xie on 05-24-2023 Urea nitrogen [Mass/Vol] 29 mg/dL 7 [facility] WBC Auto (Bld) [#/Vol]Ordere d By: Sheldon Xie on 05-24-2023 WBC (Bld) [#/Vol] 7.3 10*3/uL 3.8-11.6 [facility] CALCIUMon 01-10-2023 Calcium [Mass/Vol] 9.4 mg/dL Normal 8.5-10.1 [facility] Comment on above: Performed By: #### Orly TATUM [place] #### [facility] [address] [place] [address] Dr. Mayank Khan CREATININEon 01-10-2023 Creatinine [Mass/Vol] 1.06 mg/dL Critically high 0.55-1.02 [facility] Comment on above: Performed By: #### Orly TATUM [place] #### [facility] [address] [place] [address] Dr. Mayank Khan EGFR-AF NAURUAN =60 Normal >=[address] [facility] Comment on above: Performed By: #### Orly TATUM [place] #### [facility] [address] [place] [address] Dr. Mayank Khan EGFR-NON AF NAURUAN 50 mL/min/1.73m2 Critically low >=60 [facility] Comment on above: Performed By: #### Orly TATUM [place] #### [facility] [address] [place] [address] Dr. Mayank Khan CALCIUMon 12-12-2022 Calcium [Mass/Vol] 9.8 mg/dL Normal 8.5-10.1 [facility] Comment on above: Performed By: #### Orly TATUM [place] #### [facility] [address] [place] [address] Dr. Mayank Khan CREATININEon 12-12-2022 Creatinine [Mass/Vol] 0.77 mg/dL Normal 0.55-1.02 [facility] Comment on above: Performed By: #### Orly TATUM [place] #### [facility] [address] [place] [address] Dr. Mayank Khan EGFR-AF NAURUAN >60 Normal >=[address] [facility] Comment on above: Performed By: #### Orly TATUM [place] #### [facility] [address] [place] [address] Dr. Mayank Khan EGFR-NON AF NAURUAN >60 Normal >=60 [facility] Comment on above: Performed By: #### C [place], [place] #### [facility] [address] [address] [address] Mayank Khan Basophils Auto (Bld) [#/Vol] Ordered By: Sheldon Xie on 09-29-2022 Basophils (Bld) [#/Vol] 0.1 10*3/uL 0.0-0.2 [facility] Basophils/100 WBC Auto (Bld) Ordered By: Sheldon Xie on 09-29-2022 Basophils/100 WBC (Bld) 0.9 % . [facility] Body fluid albumin measureme nt (mass/volume)Ordered By: Sheldon Xie on 09-29-2022 Albumin (Body fld) [Mass/Vol] 4.2 g/dL 3.2-5.5 [facility] Cholesterol [Mass/volume] in Serum or PlasmaOrdered By: Sheldon Xie on 09-29-2022 Cholesterol [Mass/Vol] 182 mg/dL 140-[address] [facility] Comment on above: Chol less than 200 m g/dl low riskChol 201-239 mg/dl borderline riskChol 240 mg/dl and greater high risk Cholesterol in LDL Calc [Mas s/Vol]Ordered By: Sheldon Xie on 09-29-2022 Cholesterol in LDL [Mass/Vol] 105 mg/dL 0-100 [facility] Comment on above: LDL ATP III CLASSIFI CATIONLDL less than 100 mg/dL OptimalLDL 100-129 mg/dL Near or above optimalLDL 130-159 mg/dL Borderline highLDL 160-189 mg/dL HighLDL greater than 189 mg/dL Very high Cholesterol in VLDL Calc [Ma ss/Vol]Ordered By: Sheldon Xie on 09-29-2022 Cholesterol in VLDL [Mass/Vol] 17 mg/dL [facility] Complete Blood Count Auto Di ffon 09-29-2022 Basophils (Bld) [#/Vol] 0.374727649 10*3/uL Normal 0.0-0.2 10*3/uL [facility] 410 Labs Other Basophils/100 WBC (Bld) 0.900 % . % [facility] 410 Labs Other Eosinophils (Bld) [#/Vol] 0.038030189 10*3/uL Normal 0.0-0.45 10*3/uL [facility] Other Eosinophils/100 WBC (Bld) 2.700 % . % [facility] Other Erythrocyte distribution width (RBC) [Ratio] 14.400 % Normal 11.9-15.3 % [facility] Other Hematocrit (Bld) [Volume fraction] 39.000 % Normal 34.0-46.4 % [facility] Other Hemoglobin (Bld) [Mass/Vol] 12.524214 g/dL Normal 11.8-15.4 g/dL [facility] Other Lymphocytes (Bld) [#/Vol] 1.853758176 10*3/uL Normal 1.00-4.8 10*3/uL [facility] Other Lymphocytes/100 WBC (Bld) 25.800 % . % [facility] Other MCH (RBC) [Entitic mass] 31.1000 pg Normal 24.7-34.3 pg [facility] Other MCV (RBC) [Entitic vol] 97.1000 fL Normal 80-100 fL [facility] [employer] Other Monocytes (Bld) [#/Vol] 0.198822954 10*3/uL Normal 0.0-0.8 10*3/uL [facility] Other Monocytes/100 WBC (Bld) 8.200 % . % N [employer] Other Neutrophils (Bld) [#/Vol] 4.256048473 10*3/uL Normal 1.8-7.7 10*3/uL [facility] Other Neutrophils/100 WBC (Bld) 62.400 % . % [facility] Other Platelet mean volume (Bld) [Entitic vol] 8.2000 fL Normal 6.3-10.7 fL [facility] Other WBC (Bld) [#/Vol] 7.490765826 10*3/uL Normal 3.8 -11.6 10*3/uL [facility] Other Complete Blood Count Auto Diff 7.4 10*3/uL Normal 3.8-11.6 10*3/uL [facility] Other Complete Blood Count Auto Diff 32.1 g/dL Normal 32.0-35.0 g/dL [facility] Other Complete Blood Count Auto Diff 0.1 /100{WBC} Normal 0-0.5 /100{WBC} [facility] Other Comprehensive Metabolic Pane julisa 09-29-2022 Albumin [Mass/Vol] 4.491271 g/dL Normal 3.2-5.5 g/dL [facility] Other ALT [Catalytic activity/Vol] 16 U/L Normal 10-60 U/L [facility] Other Bilirubin [Mass/Vol] 0.2079848 mg/dL Normal 0.3- 1.2 mg/dL [facility] Other Calcium [Mass/Vol] 9.9095139 mg/dL Normal 8.2-10 .2 mg/dL [facility] Other CO2 [Moles/Vol] 24.57657670 mmol/L Normal 22.0-3 0.0 mmol/L [facility] Other Creatinine [Mass/Vol] 0.36383263 mg/dL Normal 0. 44-1.03 mg/dL [facility] Other Potassium [Moles/Vol] 4.43280744 mmol/L Normal 3 .5-5.1 mmol/L [facility] Other Protein [Mass/Vol] 6.910450 g/dL Normal 6.1-7.9 g/dL [facility] Other Comprehensive Metabolic Panel > 60 [facility] 410 Labs Other Comprehensive Metabolic Panel 2.5 g/dL [facility] 410 Labs Other Creatinine and Glomerular fi ltration rate.predicted panel (S/P/Bld)Ordered By: Sheldon Xie on 09-29-2022 Creatinine [Mass/Vol] 0.84 mg/dL 0.44-1.03 [facility] Eosinophils Auto (Bld) [#/Vo l]Ordered By: Sheldon Xie on 09-29-2022 Eosinophils (Bld) [#/Vol] 0.2 10*3/uL 0.0-0.45 [facility] Eosinophils/100 WBC Auto (Bl d)Ordered By: Sheldon Xie on 09-29-2022 Eosinophils/100 WBC (Bld) 2.7 % . [facility] Erythrocyte distribution wid th Auto (RBC) [Ratio]Ordered By: Sheldon Xie on 09-29-2022 Erythrocyte distribution width (RBC) [Ratio] 14.4 % 11.9-15.3 [facility] Erythrocytes [#/volume] in B lood by Automated countOrdered By: Sheldon Xie on 09-29-2022 RBC (Bld) [#/Vol] 4.02 10*6/uL 3.60-5.00 [facility] Estimated glomerular filtrat ion rate (GFR) non- AmericanOrdered By: Sheldon Xie on 09-29-2022 GFR/1.73 sq M.predicted among non-blacks MDRD (S/P/Bld) [Vol rate/Area] > 60 mL/Min [facility] Globulin Calc (S) [Mass/Vol] Ordered By: Sheldon Xie on 09-29-2022 Globulin (S) [Mass/Vol] 2.5 g/dL F [facility] Hematocrit Auto (Bld) [Volum e fraction]Ordered By: Sheldon Xie on 09-29-2022 Hematocrit (Bld) [Volume fraction] 39.0 % 34.0-46.4 [facility] Hemoglobin [Mass/volume] in BloodOrdered By: Sheldon Xie on 09-29-2022 Hemoglobin (Bld) [Mass/Vol] 12.5 g/dL 11.8-15.4 [facility] Leukocytes [#/volume] correc sandra for nucleated erythrocytes in Blood by Automated counOrdered By: Sheldon Xie on 09-29-2022 WBC corrected for nucl RBC Auto (Bld) [#/Vol] 7.4 10*3/uL 3.8-11.6 [facility] Lipid Panelon 09-29-2022 Cholesterol in LDL Elph Qn 105 mg/dL High 0-100 mg/dL [facility] 410 Labs Other Lipid Panel 89 mg/dL Normal 35-149 mg/dL [facility] 410 Labs Other Lipid Panel 17 mg/dL [facility] 410 Labs Other Lymphocytes Auto (Bld) [#/Vo l]Ordered By: Sheldon Xie on 09-29-2022 Lymphocytes (Bld) [#/Vol] 1.9 10*3/uL 1.00-4.8 [facility] Lymphocytes/100 WBC Auto (Bl d)Ordered By: Sheldno Xie on 09-29-2022 Lymphocytes/100 WBC (Bld) 25.8 % . [facility] MCH Auto (RBC) [Entitic mass ]Ordered By: Sheldon Xie on 09-29-2022 MCH (RBC) [Entitic mass] 31.1 pg 24.7-34.3 [facility] MCHC Auto (RBC) [Mass/Vol]Or dered By: Sheldon Xie on 09-29-2022 MCHC (RBC) [Mass/Vol] 32.1 g/dL 32.0-35.0 [facility] MCV Auto (RBC) [Entitic vol] Ordered By: Sheldon Xie on 09-29-2022 MCV (RBC) [Entitic vol] 97.1 fL 80-100 [facility] Monocytes Auto (Bld) [#/Vol] Ordered By: Sheldon Xie on 09-29-2022 Monocytes (Bld) [#/Vol] 0.6 10*3/uL 0.0-0.8 [facility] Monocytes/100 WBC Auto (Bld) Ordered By: Sheldon Xie on 09-29-2022 Monocytes/100 WBC (Bld) 8.2 % . [facility] Neutrophils Auto (Bld) [#/Vo l]Ordered By: Sheldon Xie on 09-29-2022 Neutrophils (Bld) [#/Vol] 4.7 10*3/uL 1.8-7.7 [facility] Neutrophils/100 WBC Auto (Bl d)Ordered By: Sheldon Xie on 09-29-2022 Neutrophils/100 WBC (Bld) 62.4 % . [facility] No Panel InformationOrdered By: Sammie Duran on 09-29-2022 25-Hydroxy Vitamin D Total 74.2 ng/mL 30-100 [facility] Comment on above: VITAMIN D STATUS 25( [place])VITAMIN D RANGE (ng/mL) Deficient <20 Insufficient 20 to <30Sufficient 30 to 100Reference: Baldo MF,Raina NC, Juan HOLLOWAY, et al. Evaluation,treatment, and prevention of vitamin D deficiency; an Endocrine Society clinical practice guideline. JCEM. 2010; 96(7):1911-30. No Panel InformationOrdered By: Sheldon Xie on 09-29-2022 Estimated GFR () > 60 mL/Min [facility] Comment on above: GFR estimated refere nce range: According to KDOQI guidelines, <60 ml/min/1.73m2 is sufficient to diagnose a patient with chronic kidney disease. Pharmacy Creatinine Clearance (Chem N/A [facility] Nucleated erythrocytes [Pres ence] in Blood by Automated countOrdered By: Sheldon Xie on 09-29-2022 Nucleated RBC Auto Ql (Bld) 0.1 /100{WBC} 0-0.5 [facility] Parathyroid Hormone Intacton 09-29-2022 Parathyroid Hormone Intact 50.1 pg/mL Normal 12-88 pg/mL [facility] Other Platelet mean volume Auto (B ld) [Entitic vol]Ordered By: Sheldon Xie on 09-29-2022 Platelet mean volume (Bld) [Entitic vol] 8.2 fL 6.3-10.7 [facility] Platelets [#/volume] in Bloo d by Automated countOrdered By: Sheldon Xie on 09-29-2022 Platelets (Bld) [#/Vol] 285 10*3/uL 150-450 [facility] Protein [Mass/volume] in Ser um or PlasmaOrdered By: Sheldon Xie on 09-29-2022 Protein [Mass/Vol] 6.7 g/dL 6.1-7.9 [facility] Serum or plasma alanine wilder otransferase measurement without P-5'-P (enzymatic activiOrdered By: Sheldon Xie on 09-29-2022 ALT No additional P-5'-P [Catalytic activity/Vol] 16 U/L 10-60 [facility] Serum or plasma albumin/glob ulin mass ratioOrdered By: Sheldon Xie on 09-29-2022 Albumin/Globulin [Mass ratio] 1.7 {ratio} [facility] Serum or plasma alkaline bailey sphatase measurement (enzymatic activity/volume)Ordered By: Sheldon Xie on 09-29-2022 ALP [Catalytic activity/Vol] 41 U/L 32-92 [facility] Serum or plasma anion gap de terminationOrdered By: Sheldon Xie on 09-29-2022 Anion gap [Moles/Vol] 14.1 mmol/L 6.0-15.[address] [facility] Serum or plasma aspartate am inotransferase measurement (enzymatic activity/volume)Ordered By: Sheldon Xie on 09-29-2022 AST [Catalytic activity/Vol] 22 U/L 10-42 [facility] Serum or plasma calcium prachi urement (mass/volume)Ordered By: Sheldon Xie on 09-29-2022 Calcium [Mass/Vol] 9.7 mg/dL 8.2-10.2 [facility] Serum or plasma chloride darcy surement (moles/volume)Ordered By: Sheldon Xie on 09-29-2022 Chloride [Moles/Vol] 105 mmol/L 95-114 [facility] Serum or plasma glucose prachi urement (mass/volume)Ordered By: Sheldon Xie on 09-29-2022 Glucose [Mass/Vol] 78 mg/dL 70-100 [facility] Comment on above: ADA recommended refe rence rangeRandom Glucose Reference Range is dependent on time and content of last meal. Glucose of more than 200 mg/dL in a nonstressed, ambulatory subject supports the diagnosis of Diabetes Mellitus. Serum or plasma high density lipoprotein (HDL) cholesterol measurementOrdered By: Sheldon Xie on 09-29-2022 Cholesterol in HDL [Mass/Vol] 59 mg/dL 35-85 [facility] Comment on above: HDL CHOL ATP-III CLA SSIFICATION Cardiovascular RiskHDL > or equal to 60 mg/dL LOWHDL < 40 mg/dL HIGH Serum or plasma intact parat hyroid hormone measurement (mass/volume)Ordered By: Sammie Duran on 09-29-2022 Parathyrin.intact [Mass/Vol] 50.1 pg/mL [facility] Serum or plasma potassium me asurement (moles/volume)Ordered By: Sheldon Xie on 09-29-2022 Potassium [Moles/Vol] 4.6 mmol/L 3.5-5.1 [facility] Serum or plasma sodium measu rement (moles/volume)Ordered By: Sheldon Xie on 09-29-2022 Sodium [Moles/Vol] 139 mmol/L 136-146 [facility] Serum or plasma total biliru bin measurement (mass/volume)Ordered By: Sheldon Xie on 09-29-2022 Bilirubin [Mass/Vol] 0.7 mg/dL 0.3-1.2 [facility] Serum or plasma total carbon dioxide measurement (moles/volume)Ordered By: Sheldon Xie on 09-29-2022 CO2 [Moles/Vol] 24.5 mmol/L 22.0-30.0 [facility] Serum or plasma total choles terol/high density lipoprotein (HDL) cholesterol mass ratOrdered By: Sheldon Xie on 09-29-2022 Cholesterol.total/Renu sterol in HDL [Mass ratio] 3.1 {ratio} <5.0 [facility] Serum or plasma urea nitroge n measurement (mass/volume)Ordered By: Sheldon Xie on 09-29-2022 Urea nitrogen [Mass/Vol] 23 mg/dL 9- [facility] TSH DL <= 0.005 mIU/L QnOrde red By: Sheldon Xie on 09-29-2022 TSH Qn 1.86 m[IU]/L 0.45-5.33 [facility] Thyroid Stimulating Hormoneo n 09-29-2022 TSH Qn 1.24143516796 m[IU]/L Normal 0.45-5 .33 u[iU]/mL [facility] Other Triglyceride [Mass/volume] i n Serum or PlasmaOrdered By: Sheldon Xie on 09-29-2022 Triglyceride [Mass/Vol] 89 mg/dL 35-149 [facility] Comment on above: TRIG ATP III CLASSIF ICATIONTRIG less than 150 mg/dL NormalTRIG 150-199 mg/dL Borderline highTRIG 200-500 mg/dL High TRIG greater than 500 mg/dL Very highStandard traceable to the Center for Disease Conrtrol and Prevention (CDC) test method. Vitamin D 25 Hydroxy Totalon 09-29-2022 Vitamin D 25 Hydroxy Total 74.2 ng/mL Normal 30-100 ng/mL [facility] Other WBC Auto (Bld) [#/Vol]Ordere d By: Sheldon Xie on 09-29-2022 WBC (Bld) [#/Vol] 7.4 10*3/uL 3.8-11.6 [facility] XR foot RT min 3V*on 023 XR foot RT min 3V* [facility] [employer] Other XR foot RT min 3V* [facility] [place] [place] [address] [employer] Other XR foot RT min 3V* [address] [place] [address] [employer] Other XR foot RT min 3V* [place] [address] [employer] Other XR foot RT min 3V* XRay Report [employer] Other XR foot RT min 3V* Signed [employer] Other XR foot RT min 3V* Patient: Aleksandr Sanchez MR#: [id number] [employer] Other XR foot RT min 3V* [id number] [employer] Other XR foot RT min 3V* : 1940 Acct:[id number] [employer] Other XR foot RT min 3V* Age/Sex: 82 / F ADM Date: 09/15/22 [employer] Other XR foot RT min 3V* Loc: [facility] Room: Type : [facility] [employer] Other XR foot RT min 3V* [facility] XR foot RT min 3V* Copies to: Sammie Duran [facility] [employer] Other XR foot RT min 3V* Ordering Provider: Sammie Duran [facility] [employer] Other XR foot RT min 3V* Date of Service: 09/15/22 [employer] Other XR foot RT min 3V* XR/XR foot RT min 3V*: S92.351D [employer] Other XR foot RT min 3V* XR foot RT min 3V* 09/15/2022 1:17 PM [facility] [employer] Other XR foot RT min 3V* SIGNS AND SYMPTOMS: Follow-up with mildly displaced fifth metatarsal fracture [employer] Other XR foot RT min 3V* PROTOCOL: Frontal, lateral, and oblique radiographs of the right foot [employer] Other XR foot RT min 3V* COMPARISON: 09/01/2022 [employer] Other XR foot RT min 3V* FINDINGS: [employer] Other XR foot RT min 3V* There is redemonstration of an obliquely oriented fracture of the proximal shaft of the fifth [employer] Other XR foot RT min 3V* metatarsal. There is no significant interval healing. No change in alignment. No additional [employer] Other XR foot RT min 3V* fractures. Findings suggest a remote healed fracture of the second metatarsal. [employer] Other XR foot RT min 3V* XR/XR foot RT min 3V* [employer] Other XR foot RT min 3V* IMPRESSION: [employer] Other XR foot RT min 3V* metatarsal. There is no significant interval healing. No change in alignment. [employer] Other XR foot RT min 3V* Impression dictated by: Gray Mukherjee M.D.09/15/2022 2:05 PM [employer] Other XR foot RT min 3V* Dictation Location: [place] [address] [employer] Other XR foot RT min 3V* Transcribed By: BRANDON 09/15/22 1405 [employer] Other XR foot RT min 3V* Dictated By: Gray Mukherjee II, MD 09/15/22 1404 [employer] Other XR foot RT min 3V* Signed By: [employer] Other XR foot RT min 3V* 09/15/[address] [place] [address] [employer] Other XR foot RT min 3V*on 023 XR foot RT min 3V* [facility] [employer] Other XR foot RT min 3V* [facility] [place] [place] [address] [employer] Other XR foot RT min 3V* [address] [employer] Other XR foot RT min 3V* [place] [address] [employer] Other XR foot RT min 3V* XRay Report [employer] Other XR foot RT min 3V* Signed [employer] Other XR foot RT min 3V* Patient: Aleksandr Sanchez MR#: [id number] [employer] Other XR foot RT min 3V* [id number] [employer] Other XR foot RT min 3V* : 1940 Acct:[id number] [employer] Other XR foot RT min 3V* Age/Sex: 82 / F ADM Date: 09/01/22 [employer] Other XR foot RT min 3V* [facility] Room: Type: [facility] [employer] Other XR foot RT min 3V* Attending Dr: Sheldon Xie DO [employer] Other XR foot RT min 3V* Copies to: Sheldon Xie DO [employer] Other XR foot RT min 3V* Ordering Provider: Sheldon Xie DO [employer] Other XR foot RT min 3V* Date of Service: 09/01/22 [employer] Other XR foot RT min 3V* XR/XR foot RT min 3V*: Injury of right foot, initial encounter;Right foot [employer] Other XR foot RT min 3V* pain [employer] Other XR foot RT min 3V* RIGHT FOOT - 3 views [employer] Other XR foot RT min 3V* CLINICAL HISTORY: Bilateral foot pain, swelling and bruising for one day. [employer] Other XR foot RT min 3V* COMPARISON: Right foot 08/12/2015 [employer] Other XR foot RT min 3V* FINDINGS: [employer] Other XR foot RT min 3V* No focal soft tissue abnormality. No radiopaque foreign body. There is a mildly displaced fracture [employer] Other XR foot RT min 3V* involving the shaft of the fifth metatarsal. No additional fractures are seen. No bony erosions. [employer] Other XR foot RT min 3V* XR/XR foot RT min 3V* [employer] Other XR foot RT min 3V* IMPRESSION: [employer] Other XR foot RT min 3V* MILDLY DISPLACED FRACTURE INVOLVING THE SHAFT OF THE FIFTH METATARSAL. [employer] Other XR foot RT min 3V* Impression dictated by: Rusty Sepulveda Jr., D.O.09/01/2022 2:57 PM [employer] Other XR foot RT min 3V* Dictation Location: [place] [address] [employer] Other XR foot RT min 3V* Transcribed By: PWS 09/01/22 [facility] [employer] Other XR foot RT min 3V* Dictated By: Rusty Sepulveda Jr DO 09/01/22 [facility] [employer] Other XR foot RT min 3V* Signed By: [employer] Other XR foot RT min 3V* 09/01/[address] [place] [address] [employer] Other COVID Quick Testingon 2021 Result Positive [employer] Other Quick Fluon 07-29-2022 FLUAV Ab CF (S) [Titer] Negative N [facility] Other FLUBV Ab CF (S) [Titer] Negative N [employer] Other Albumin [Mass/volume] in Ser um or PlasmaOrdered By: Sheldon Xie on 06-16-2022 Albumin [Mass/Vol] 3.8 g/dL 3.2-5.5 [facility] Basophils Auto (Bld) [#/Vol] Ordered By: Sheldon Xie on 06-16-2022 Basophils (Bld) [#/Vol] 0.1 10*3/uL 0.0-0.2 [facility] Basophils/100 WBC Auto (Bld) Ordered By: Sheldon Xie on 06-16-2022 Basophils/100 WBC (Bld) 1.0 % . [facility] Creatinine and Glomerular fi ltration rate.predicted panel (S/P/Bld)Ordered By: Sheldon Xie on 06-16-2022 Creatinine [Mass/Vol] 0.75 mg/dL 0.44-1.03 [facility] Eosinophils Auto (Bld) [#/Vo l]Ordered By: Sheldon Xie on 06-16-2022 Eosinophils (Bld) [#/Vol] 0.4 10*3/uL 0.0-0.45 [facility] Eosinophils/100 WBC Auto (Bl d)Ordered By: Sheldon Xie on 06-16-2022 Eosinophils/100 WBC (Bld) 5.8 % . [facility] Erythrocyte distribution wid th Auto (RBC) [Ratio]Ordered By: Sheldon Xie on 06-16-2022 Erythrocyte distribution width (RBC) [Ratio] 13.9 % 11.9-15.3 [facility] Estimated glomerular filtrat ion rate (GFR) non- AmericanOrdered By: Sheldon Xie on 06-16-2022 GFR/1.73 sq M.predicted among non-blacks MDRD (S/P/Bld) [Vol rate/Area] > 60 mL/Min [facility] Globulin Calc (S) [Mass/Vol] Ordered By: Sheldon Xie on 06-16-2022 Globulin (S) [Mass/Vol] 3.0 g/dL [facility] Hematocrit Auto (Bld) [Volum e fraction]Ordered By: Sheldon Xie on 06-16-2022 Hematocrit (Bld) [Volume fraction] 41.1 % 34.0-46.4 [facility] Hemoglobin [Mass/volume] in BloodOrdered By: Sheldon Xie on 06-16-2022 Hemoglobin (Bld) [Mass/Vol] 13.1 g/dL 11.8-15.4 [facility] Laboratory - Hematology and Cell countsOrdered By: Sheldon Xie on 06-16-2022 Nucleated RBC/100 WBC (Bld) [Ratio] 0.1 % 0-0.5 [facility] Leukocytes [#/volume] in Blo od by Automated countOrdered By: Sheldon Xie on 06-16-2022 WBC (Bld) [#/Vol] 6.0 10*3/uL 4.5-11.0 [facility] Lymphocytes Auto (Bld) [#/Vo l]Ordered By: Sheldon Xie on 06-16-2022 Lymphocytes (Bld) [#/Vol] 1.9 10*3/uL 1.00-4.8 [facility] Lymphocytes/100 WBC Auto (Bl d)Ordered By: Sheldon Xie on 06-16-2022 Lymphocytes/100 WBC (Bld) 32.1 % . [facility] MCH Auto (RBC) [Entitic mass ]Ordered By: Sheldon Xie on 06-16-2022 MCH (RBC) [Entitic mass] 32.0 pg 24.7-34.3 [facility] MCHC Auto (RBC) [Mass/Vol]Or dered By: Sheldon Xie on 06-16-2022 MCHC (RBC) [Mass/Vol] 32.0 g/dL 32.0-35.0 [facility] MCV Auto (RBC) [Entitic vol] Ordered By: Sheldon Xie on 06-16-2022 MCV (RBC) [Entitic vol] 99.9 fL 80-100 [facility] Monocytes Auto (Bld) [#/Vol] Ordered By: Sheldon Xie on 06-16-2022 Monocytes (Bld) [#/Vol] 0.6 10*3/uL 0.0-0.8 [facility] Monocytes/100 WBC Auto (Bld) Ordered By: Sheldon Xie on 06-16-2022 Monocytes/100 WBC (Bld) 9.6 % . [facility] Neutrophils Auto (Bld) [#/Vo l]Ordered By: Sheldon Xie on 06-16-2022 Neutrophils (Bld) [#/Vol] 3.1 10*3/uL 1.8-7.7 [facility] Neutrophils/100 WBC Auto (Bl d)Ordered By: Sheldon Xie on 06-16-2022 Neutrophils/100 WBC (Bld) 51.5 % . [facility] No Panel InformationOrdered By: Sheldon Xie on 06-16-2022 Estimated GFR () > 60 mL/Min [facility] Comment on above: GFR estimated refere nce range: According to KDOQI guidelines, <60 ml/min/1.73m2 is sufficient to diagnose a patient with chronic kidney disease. Pharmacy Creatinine Clearance (Chem N/A [facility] Platelet mean volume Auto (B ld) [Entitic vol]Ordered By: Sheldon Xie on 06-16-2022 Platelet mean volume (Bld) [Entitic vol] 9.2 fL 6.3-10.7 [facility] Platelets Auto (Bld) [#/Vol] Ordered By: Sheldon Xie on 06-16-2022 Platelets (Bld) [#/Vol] 361 10*3/uL 150-450 [facility] Protein [Mass/volume] in Ser um or PlasmaOrdered By: Sheldon Xie on 06-16-2022 Protein [Mass/Vol] 6.8 g/dL 6.1-7.9 [facility] RBC Auto (Bld) [#/Vol]Ordere d By: Sheldon Xie on 06-16-2022 RBC (Bld) [#/Vol] 4.11 10*6/uL 3.60-5.00 [facility] Serum or plasma alanine wilder otransferase measurement without P-5'-P (enzymatic activiOrdered By: Sheldon Xie on 06-16-2022 ALT No additional P-5'-P [Catalytic activity/Vol] 13 U/L 10-60 [facility] Serum or plasma albumin/glob ulin mass ratioOrdered By: Sheldon Xie on 06-16-2022 Albumin/Globulin [Mass ratio] 1.3 {ratio} [facility] Serum or plasma alkaline bailey sphatase measurement (enzymatic activity/volume)Ordered By: Sheldon Xie on 06-16-2022 ALP [Catalytic activity/Vol] 44 U/L 32-92 [facility] Serum or plasma anion gap de terminationOrdered By: Sheldon Xie on 06-16-2022 Anion gap [Moles/Vol] 11.1 mmol/L 6.0-15.[address] [facility] Serum or plasma aspartate am inotransferase measurement (enzymatic activity/volume)Ordered By: Sheldon Xie on 06-16-2022 AST [Catalytic activity/Vol] 23 U/L 10-42 [facility] Serum or plasma calcium prachi urement (mass/volume)Ordered By: Sheldon Xie on 06-16-2022 Calcium [Mass/Vol] 9.7 mg/dL 8.2-10.2 [facility] Serum or plasma chloride darcy surement (moles/volume)Ordered By: Sheldon Xie on 06-16-2022 Chloride [Moles/Vol] 109 mmol/L 95-114 [facility] Serum or plasma glucose prachi urement (mass/volume)Ordered By: Sheldon Xie on 06-16-2022 Glucose [Mass/Vol] 95 mg/dL 70-100 [facility] Comment on above: ADA recommended refe rence rangeRandom Glucose Reference Range is dependent on time and content of last meal. Glucose of more than 200 mg/dL in a nonstressed, ambulatory subject supports the diagnosis of Diabetes Mellitus. Serum or plasma potassium me asurement (moles/volume)Ordered By: Sheldon Xie on 06-16-2022 Potassium [Moles/Vol] 4.3 mmol/L 3.5-5.1 [facility] Serum or plasma sodium measu rement (moles/volume)Ordered By: Sheldon Xie on 06-16-2022 Sodium [Moles/Vol] 143 mmol/L 136-146 [facility] Serum or plasma total biliru bin measurement (mass/volume)Ordered By: Sheldon Xie on 06-16-2022 Bilirubin [Mass/Vol] 0.8 mg/dL 0.3-1.2 [facility] Serum or plasma total carbon dioxide measurement (moles/volume)Ordered By: Sheldon Xie on 06-16-2022 CO2 [Moles/Vol] 27.2 mmol/L 22.0-30.0 [facility] Serum or plasma urea nitroge n measurement (mass/volume)Ordered By: Sheldon Xie on 06-16-2022 Urea nitrogen [Mass/Vol] 14 mg/dL 05-20 [facility] Creatinine and Glomerular fi ltration rate.predicted panel (S/P/Bld)Ordered By: Sheldon Xie on 06-03-2022 Creatinine [Mass/Vol] 0.81 mg/dL 0.44-1.03 [facility] Estimated glomerular filtrat ion rate (GFR) non- AmericanOrdered By: Sheldon Xie on 06-03-2022 GFR/1.73 sq M.predicted among non-blacks MDRD (S/P/Bld) [Vol rate/Area] > 60 mL/Min [facility] No Panel InformationOrdered By: Sheldon Xie on 06-03-2022 Estimated GFR () > 60 mL/Min [facility] Comment on above: GFR estimated refere nce range: According to KDOQI guidelines, <60 ml/min/1.73m2 is sufficient to diagnose a patient with chronic kidney disease. Pharmacy Creatinine Clearance (Chem N/A [facility] Serum or plasma urea nitroge n measurement (mass/volume)Ordered By: Sheldon Xie on 06-03-2022 Urea nitrogen [Mass/Vol] 19 mg/dL 05-20 [facility] PULMONARY FUNCTION TESTon PULMONARY FUNCTION TEST [...] with activity/ambulation. Clinical correlation required. Normal [facility] Albumin [Mass/volume] in Ser um or PlasmaOrdered By: Sheldon Xie on 04-01-2022 Albumin [Mass/Vol] 4.1 g/dL 3.2-5.5 [facility] Basophils Auto (Bld) [#/Vol] Ordered By: Sheldon Xie on 04-01-2022 Basophils (Bld) [#/Vol] 0.1 10*3/uL 0.0-0.2 [facility] Basophils/100 WBC Auto (Bld) Ordered By: Sheldon Xie on 04-01-2022 Basophils/100 WBC (Bld) 1.0 % . [facility] Blood hemoglobin measurement (mass/volume)Ordered By: Sheldon Xie on 04-01-2022 Hemoglobin (Bld) [Mass/Vol] 13.4 g/dL 11.8-15.4 [facility] Blood leukocytes automated c ount (number/volume)Ordered By: Sheldon Xie on 04-01-2022 WBC (Bld) [#/Vol] 8.5 10*3/uL 4.5-11.0 [facility] Cholesterol [Mass/volume] in Serum or PlasmaOrdered By: Sheldon Xie on 04-01-2022 Cholesterol [Mass/Vol] 175 mg/dL 140-[address] [facility] Comment on above: Chol less than 200 m g/dl low risk Chol 201-239 mg/dl borderline risk Chol 240 mg/dl and greater high risk Chol less than 200 m g/dl low riskChol 201-239 mg/dl borderline riskChol 240 mg/dl and greater high risk Cholesterol in LDL Calc [Mas s/Vol]Ordered By: Sheldon Xie on 04-01-2022 Cholesterol in LDL [Mass/Vol] 110 mg/dL 0-100 [facility] Comment on above: LDL ATP III [...] 04-01-2022 Cholesterol in VLDL [Mass/Vol] 14 mg/dL [facility] Creatinine and Glomerular fi ltration rate.predicted panel (S/P/Bld)Ordered By: Sheldon Xie on 04-01-2022 Creatinine [Mass/Vol] 0.93 mg/dL 0.44-1.03 [facility] Eosinophils Auto (Bld) [#/Vo l]Ordered By: Sheldon Xie on 04-01-2022 Eosinophils (Bld) [#/Vol] 0.3 10*3/uL 0.0-0.45 [facility] Eosinophils/100 WBC Auto (Bl d)Ordered By: Sheldon Xie on 04-01-2022 Eosinophils/100 WBC (Bld) 3.2 % . [facility] Erythrocyte distribution wid th Auto (RBC) [Ratio]Ordered By: Sheldon Xie on 04-01-2022 Erythrocyte distribution width (RBC) [Ratio] 14.1 % 11.9-15.3 [facility] Estimated glomerular filtrat ion rate (GFR) non- AmericanOrdered By: Sheldon Xie on 04-01-2022 GFR/1.73 sq M.predicted among non-blacks MDRD (S/P/Bld) [Vol rate/Area] 58 mL/Min [facility] Globulin Calc (S) [Mass/Vol] Ordered By: Sheldon Xie on 04-01-2022 Globulin (S) [Mass/Vol] 2.7 g/dL [facility] Hematocrit Auto (Bld) [Volum e fraction]Ordered By: Sheldon Xie on 04-01-2022 Hematocrit (Bld) [Volume fraction] 41.7 % 34.0-46.4 [facility] - Hematology and Cell countsOrdered By: Sheldon Xie on 04-01-2022 Nucleated RBC/100 WBC (Bld) [Ratio] 0.0 % 0-0.5 [facility] Lymphocytes Auto (Bld) [#/Vo l]Ordered By: Sheldon Xie on 04-01-2022 Lymphocytes (Bld) [#/Vol] 1.6 10*3/uL 1.00-4.8 [facility] Lymphocytes/100 WBC Auto (Bl d)Ordered By: Sheldon Xie on 04-01-2022 Lymphocytes/100 WBC (Bld) 18.4 % . [facility] MCH Auto (RBC) [Entitic mass ]Ordered By: Sheldon Xie on 04-01-2022 MCH (RBC) [Entitic mass] 30.9 pg 24.7-34.3 [facility] MCHC Auto (RBC) [Mass/Vol]Or dered By: Sheldon Xie on 04-01-2022 MCHC (RBC) [Mass/Vol] 32.1 g/dL 32.0-35.0 [facility] MCV Auto (RBC) [Entitic vol] Ordered By: Sheldon Xie on 04-01-2022 MCV (RBC) [Entitic vol] 96.5 fL 80-100 [facility] Monocytes Auto (Bld) [#/Vol] Ordered By: Sheldon Xie on 04-01-2022 Monocytes (Bld) [#/Vol] 0.7 10*3/uL 0.0-0.8 [facility] Monocytes/100 WBC Auto (Bld) Ordered By: Sheldon Xie on 04-01-2022 Monocytes/100 WBC (Bld) 8.2 % . [facility] Neutrophils Auto (Bld) [#/Vo l]Ordered By: Sheldon Xie on 04-01-2022 Neutrophils (Bld) [#/Vol] 5.8 10*3/uL 1.8-7.7 [facility] Neutrophils/100 WBC Auto (Bl d)Ordered By: Sheldon Xie on 04-01-2022 Neutrophils/100 WBC (Bld) 69.2 % . [facility] No Panel InformationOrdered By: Sheldon Xie on 04-01-2022 Estimated GFR () > 60 mL/Min [facility] Comment on above: GFR estimated refere nce range: According to KDOQI guidelines, <60 ml/min/1.73m2 is sufficient to diagnose a patient with chronic kidney disease. Pharmacy Creatinine Clearance (Chem N/A [facility] Platelet mean volume Auto (B ld) [Entitic vol]Ordered By: Sheldon Xie on 04-01-2022 Platelet mean volume (Bld) [Entitic vol] 9.2 fL 6.3-10.7 [facility] Platelets Auto (Bld) [#/Vol] Ordered By: Sheldon Xie on 04-01-2022 Platelets (Bld) [#/Vol] 300 10*3/uL 150-450 [facility] Protein [Mass/volume] in Ser um or PlasmaOrdered By: Sheldon Xie on 04-01-2022 Protein [Mass/Vol] 6.8 g/dL 6.1-7.9 [facility] RBC Auto (Bld) [#/Vol]Ordere d By: Sheldon Xie on 04-01-2022 RBC (Bld) [#/Vol] 4.33 10*6/uL 3.60-5.00 [facility] Serum or plasma alanine wilder otransferase measurement without P-5'-P (enzymatic activiOrdered By: Sheldon Xie on 04-01-2022 ALT No additional P-5'-P [Catalytic activity/Vol] 15 U/L 10-60 [facility] Serum or plasma albumin/glob ulin mass ratioOrdered By: Sheldon Xie on 04-01-2022 Albumin/Globulin [Mass ratio] 1.5 {ratio} [facility] Serum or plasma alkaline bailey sphatase measurement (enzymatic activity/volume)Ordered By: Sheldon Xie on 04-01-2022 ALP [Catalytic activity/Vol] 49 U/L 32-92 [facility] Serum or plasma aspartate am inotransferase measurement (enzymatic activity/volume)Ordered By: Sheldon Xie on 04-01-2022 AST [Catalytic activity/Vol] 22 U/L 10-42 [facility] Serum or plasma calcium prachi urement (mass/volume)Ordered By: Sheldon Xie on 04-01-2022 Calcium [Mass/Vol] 10.4 mg/dL 8.2-10.2 [facility] Serum or plasma chloride darcy surement (moles/volume)Ordered By: Sheldon Xie on 04-01-2022 Chloride [Moles/Vol] 106 mmol/L 95-114 [facility] Serum or plasma glucose prachi urement (mass/volume)Ordered By: Sheldon Xie on 04-01-2022 Glucose [Mass/Vol] 92 mg/dL 70-100 [facility] Comment on above: ADA recommended refe rence [...] Cholesterol in HDL [Mass/Vol] 51 mg/dL 35-85 [facility] Comment on above: HDL CHOL ATP-III CLA SSIFICATION Cardiovascular Risk HDL > or equal to 60 mg/dL LOW HDL < 40 mg/dL HIGH HDL CHOL ATP-III CLA SSIFICATION Cardiovascular RiskHDL > or equal to 60 mg/dL LOWHDL < 40 mg/dL HIGH Serum or plasma potassium me asurement (moles/volume)Ordered By: Sheldon Xie on 04-01-2022 Potassium [Moles/Vol] 4.5 mmol/L 3.5-5.1 [facility] Serum or plasma sodium measu rement (moles/volume)Ordered By: Sheldon Xie on 04-01-2022 Sodium [Moles/Vol] 142 mmol/L 136-146 [facility] Serum or plasma total biliru bin measurement (mass/volume)Ordered By: Sheldon Xie on 04-01-2022 Bilirubin [Mass/Vol] 0.6 mg/dL 0.3-1.2 [facility] Serum or plasma total carbon dioxide measurement (moles/volume)Ordered By: Sheldon Xie on 04-01-2022 CO2 [Moles/Vol] 27.2 mmol/L 22.0-30.0 [facility] Serum or plasma total choles terol/high density lipoprotein (HDL) cholesterol mass ratOrdered By: Sheldon Xie on 04-01-2022 Cholesterol.total/Renu sterol in HDL [Mass ratio] 3.4 {ratio} <5.0 [facility] Serum or plasma urea nitroge n measurement (mass/volume)Ordered By: Sheldon Xie on 04-01-2022 Urea nitrogen [Mass/Vol] 29 mg/dL 9-23 [facility] TSH DL <= 0.005 mIU/L QnOrde red By: Sheldon Xie on 04-01-2022 TSH Qn 2.53 m[IU]/L 0.45-5.33 [facility] Triglyceride [Mass/volume] i n Serum or PlasmaOrdered By: Sheldon Xie on 04-01-2022 Triglyceride [Mass/Vol] 71 mg/dL 35-149 [facility] Comment on above: TRIG ATP [...] on 02-09-2022 Creatinine [Mass/Vol] 0.64 mg/dL 0.44-1.03 [facility] Estimated glomerular filtrat ion rate (GFR) non- AmericanOrdered By: Sheldon Xie on 02-09-2022 GFR/1.73 sq M.predicted among non-blacks MDRD (S/P/Bld) [Vol rate/Area] > 60 mL/Min [facility] No Panel InformationOrdered By: Sheldon Xie on 02-09-2022 Estimated GFR () > 60 mL/Min [facility] Comment on above: GFR estimated refere nce range: According to KDOQI guidelines, <60 ml/min/1.73m2 is sufficient to diagnose a patient with chronic kidney disease. Pharmacy Creatinine Clearance (Chem N/A [facility] Serum or plasma calcium prachi urement (mass/volume)Ordered By: Sheldon Xie on 02-09-2022 Calcium [Mass/Vol] 10.0 mg/dL 8.2-10.2 [facility] Serum or plasma chloride darcy surement (moles/volume)Ordered By: Sheldon Xie on 02-09-2022 Chloride [Moles/Vol] 103 mmol/L 95-114 [facility] Serum or plasma glucose prachi urement (mass/volume)Ordered By: Sheldon Xie on 02-09-2022 Glucose [Mass/Vol] 95 mg/dL 70-100 [facility] Comment on above: ADA recommended refe rence range Random Glucose Reference Range is dependent on time and content of last meal. Glucose of more than 200 mg/dL in a nonstressed, ambulatory subject supports the diagnosis of Diabetes Mellitus. Serum or plasma potassium me asurement (moles/volume)Ordered By: Sheldon Xie on 02-09-2022 Potassium [Moles/Vol] 4.0 mmol/L 3.5-5.1 [facility] Serum or plasma sodium measu rement (moles/volume)Ordered By: Sheldon Xie on 02-09-2022 Sodium [Moles/Vol] 141 mmol/L 136-146 [facility] Serum or plasma total carbon dioxide measurement (moles/volume)Ordered By: Sheldon Xie on 02-09-2022 CO2 [Moles/Vol] 26.5 mmol/L 22.0-30.0 [facility] Serum or plasma urea nitroge n measurement (mass/volume)Ordered By: Sheldon Xie on 02-09-2022 Urea nitrogen [Mass/Vol] 18 mg/dL 05-20 [facility] Office Visit (Cardiology)on 02-08-2022 Follow-up visit [...] Recorded: 08Feb2022 11:19AM Heart Rate78, R Radial [id number], LUE, Sitting [id number], LUE, Sitting Height5 ft 2 in Gvyysl420 lb BMI Jgczghslsf72.03 kg/m2 BSA Calculated1.51 Tobacco Useb) No PHQ-2 [...] baseline, 89-90 % with ambulating 150ft per Cassie, RN, BSN Physical Exam Constitutional: alert and [...] Psychiatric willy (more content not included)... Normal [facility] Tobacco Screening.on 022 Adult depression screening assessment No [facility] 250 DO Work Phone: Fall risk assessment b) One or more fall s in the last year [facility] 250 DO Work Phone: Tobacco use status [facility] b) No [facility] [employer] 250 DO Work Phone: Vital Signs Date Time Vital Sign Value Performing Clinician Faci lity 12-24-2024 14:34-0400 Body height 157.48 cm [employer] DO Work Phone: [facility] 12-24-2024 14:34-0400 Body mass index (BMI) [Ratio] 17.7 kg/m2 [employer] DO Work Phone: [facility] 12-24-2024 14:34-0400 Body weight 43.99 kg [employer] DO Work Phone: [facility] 12-24-2024 14:34-0400 Diastolic blood pressure 60 mm[Hg] Sheldon Kuns DO Work Phone: [facility] 12-24-2024 14:34-0400 Heart rate 60 /min Sheldon Kuns DO Work Phone: [facility] 12-24-2024 14:34-0400 Respiratory rate 16 /min Sheldon Kuns DO Work Phone: [facility] 12-24-2024 14:34-0400 SaO2% (BldA) [Mass fraction] 97 % Sheldon Kuns DO Work Phone: [facility] 12-24-2024 14:34-0400 Systolic blood pressure 126 mm[Hg] Sheldon Kuns DO Work Phone: [facility] 09-19-2024 12:39-0500 Body height 157.48 cm [facility] 09-19-2024 12:39-0500 Body mass index (BMI) [Ratio] 17.4 kg/m2 [facility] 09-19-2024 12:39-0500 Body weight 43.09 kg [facility] 09-19-2024 12:39-0500 Diastolic blood pressure 62 mm[Hg] [facility] 09-19-2024 12:39-0500 Heart rate 65 /min [facility] 09-19-2024 12:39-0500 Respiratory rate 16 /min [facility] 09-19-2024 12:39-0500 SaO2% (BldA) [Mass fraction] 89 % [facility] 09-19-2024 12:39-0500 Systolic blood pressure 110 mm[Hg] [facility] 07-09-2024 15:00-0500 Body height 157.48 cm Sheldon Kuns DO Work Phone: [facility] 07-09-2024 15:00-0500 Body mass index (BMI) [Ratio] 18.6 kg/m2 Sheldon Kuns DO Work Phone: [facility] 07-09-2024 15:00-0500 Body weight 46.26 kg Sheldon Kuns DO Work Phone: [facility] 07-09-2024 15:00-0500 Diastolic blood pressure 74 mm[Hg] Sheldon Kuns DO Work Phone: [facility] 07-09-2024 15:00-0500 Heart rate 70 /min Sheldon Kuns DO Work Phone: [facility] 07-09-2024 15:00-0500 Respiratory rate 20 /min Sheldon Kuns DO Work Phone: [facility] 07-09-2024 15:00-0500 SaO2% (BldA) [Mass fraction] 92 % Sheldon Kuns DO Work Phone: [facility] 07-09-2024 15:00-0500 Systolic blood pressure 122 mm[Hg] Sheldon Kuns DO Work Phone: [facility] 06-18-2024 12:33-0400 Body height 157.48 cm DO Sheldon Kuns Work Phone: [facility] 06-18-2024 12:33-0400 Body mass index (BMI) [Ratio] 19 kg/m2 DO Sheldon Kuns Work Phone: [facility] 06-18-2024 12:33-0400 Body weight 47.17 kg DO Sheldon Kuns Work Phone: [facility] 06-18-2024 12:33-0400 Diastolic blood pressure 70 mm[Hg] DO Sheldon Kuns Work Phone: [facility] 06-18-2024 12:33-0400 Heart rate 75 /min DO Sheldon Kuns Work Phone: [facility] 06-18-2024 12:33-0400 Respiratory rate 16 /min DO Sheldon Kuns Work Phone: [facility] 06-18-2024 12:33-0400 SaO2% (BldA) [Mass fraction] 92 % DO Sheldon Kuns Work Phone: [facility] 06-18-2024 12:33-0400 Systolic blood pressure 128 mm[Hg] DO Sheldon Kuns Work Phone: [facility] 05-16-2024 08:40-0400 Body height 157.48 cm DO Sheldon Kuns Work Phone: [facility] 05-16-2024 08:40-0400 Body mass index (BMI) [Ratio] 19.3 kg/m2 DO Sheldon Kuns Work Phone: [facility] 05-16-2024 08:40-0400 Body weight 48.08 kg DO Sheldon Kuns Work Phone: [facility] 05-16-2024 08:40-0400 Diastolic blood pressure 75 mm[Hg] DO Sheldon Kuns Work Phone: [facility] 05-16-2024 08:40-0400 Heart rate 88 /min DO Sheldon Kuns Work Phone: [facility] 05-16-2024 08:40-0400 Respiratory rate 18 /min DO Sheldon Kuns Work Phone: [facility] 05-16-2024 08:40-0400 SaO2% (BldA) [Mass fraction] 97 % DO Sheldon Kuns Work Phone: [facility] 05-16-2024 08:40-0400 Systolic blood pressure 145 mm[Hg] DO Sheldon Kuns Work Phone: [facility] 03-19-2024 14:00-0400 Body height 157.48 cm DO Sheldon Kuns Work Phone: [facility] 03-19-2024 14:00-0400 Body mass index (BMI) [Ratio] 19.9 kg/m2 DO Sheldon Kuns Work Phone: [facility] 03-19-2024 14:00-0400 Body weight 49.44 kg DO Sheldon Kuns Work Phone: [facility] 03-19-2024 14:00-0400 Diastolic blood pressure 60 mm[Hg] DO Sheldon Kuns Work Phone: [facility] 03-19-2024 14:00-0400 Heart rate 68 /min DO Sheldon Kuns Work Phone: [facility] 03-19-2024 14:00-0400 Respiratory rate 18 /min DO Sheldon Kuns Work Phone: [facility] 03-19-2024 14:00-0400 SaO2% (BldA) [Mass fraction] 91 % DO Sheldon Kuns Work Phone: [facility] 03-19-2024 14:00-0400 Systolic blood pressure 138 mm[Hg] DO Sheldon Kuns Work Phone: [facility] 02-09-2024 13:16-0400 Body height 157.5 cm Ronnie Colvin MD Work Phone: [facility] 02-09-2024 13:16-0400 Body mass index (BMI) [Ratio] 19.94 kg/m2 Ronnie Colvin MD Work Phone: [facility] 02-09-2024 13:16-0400 Body weight 49.44 kg Ronnie Colvin MD Work Phone: [facility] 02-09-2024 13:16-0400 Diastolic blood pressure 58 mm[Hg] Ronnie Colvin MD Work Phone: [facility] 02-09-2024 13:16-0400 Heart rate 68 /min Ronnie Colvin MD Work Phone: [facility] 02-09-2024 13:16-0400 Systolic blood pressure 100 mm[Hg] Ronnie Colvin MD Work Phone: [facility] 01-29-2024 10:35-0400 Diastolic blood pressure 60 mm[Hg] DO Sheldon Kuns Work Phone: [facility] 01-29-2024 10:35-0400 Heart rate 76 /min DO Sheldon Kuns Work Phone: [facility] 01-29-2024 10:35-0400 Respiratory rate 16 /min DO Sheldon Kuns Work Phone: [facility] 01-29-2024 10:35-0400 SaO2% (BldA) [Mass fraction] 91 % DO Sheldon Kuns Work Phone: [facility] 01-29-2024 10:35-0400 Systolic blood pressure 105 mm[Hg] DO Sheldon Kuns Work Phone: [facility] 01-09-2024 15:02-0400 Body height 157.48 cm DO Sheldon Kuns Work Phone: [facility] 01-09-2024 15:02-0400 Body mass index (BMI) [Ratio] 20.2 kg/m2 DO Sheldon Kuns Work Phone: [facility] 01-09-2024 15:02-0400 Body temperature 97.2 [degF] DO Sheldon Kuns Work Phone: [facility] 01-09-2024 15:02-0400 Body weight 50.34 kg DO Sheldon Kuns Work Phone: [facility] 01-09-2024 15:02-0400 Diastolic blood pressure 71 mm[Hg] DO Sheldon Kuns Work Phone: [facility] 01-09-2024 15:02-0400 Heart rate 72 /min DO Sheldon Kuns Work Phone: [facility] 01-09-2024 15:02-0400 Respiratory rate 20 /min DO Sheldon Kuns Work Phone: [facility] 01-09-2024 15:02-0400 SaO2% (BldA) [Mass fraction] 93 % DO Sheldon Kuns Work Phone: [facility] 01-09-2024 15:02-0400 Systolic blood pressure 145 mm[Hg] DO Sheldon Kuns Work Phone: [facility] 12-14-2023 12:32-0400 Body height 157.48 cm DO Sheldon Kuns Work Phone: [facility] 12-14-2023 12:32-0400 Body mass index (BMI) [Ratio] 19.3 kg/m2 DO Sheldon Kuns Work Phone: [facility] 12-14-2023 12:32-0400 Body weight 48.08 kg DO Sheldon Kuns Work Phone: [facility] 12-14-2023 12:32-0400 Diastolic blood pressure 60 mm[Hg] DO Sheldon Kuns Work Phone: [facility] 12-14-2023 12:32-0400 Heart rate 70 /min DO Sheldon Kuns Work Phone: [facility] 12-14-2023 12:32-0400 SaO2% (BldA) [Mass fraction] 96 % DO Sheldon Kuns Work Phone: [facility] 12-14-2023 12:32-0400 Systolic blood pressure 114 mm[Hg] DO Sheldon Kuns Work Phone: [facility] 11-15-2023 12:49-0400 Body height 157.48 cm DO Sheldon Kuns Work Phone: [facility] 11-15-2023 12:49-0400 Body mass index (BMI) [Ratio] 19.9 kg/m2 DO Sheldon Kuns Work Phone: [facility] 11-15-2023 12:49-0400 Body weight 49.44 kg DO Sheldon Kuns Work Phone: [facility] 11-15-2023 12:49-0400 Diastolic blood pressure 66 mm[Hg] DO Sheldon Kuns Work Phone: [facility] 11-15-2023 12:49-0400 Heart rate 79 /min DO Sheldon Kuns Work Phone: [facility] 11-15-2023 12:49-0400 Respiratory rate 20 /min DO Sheldon Kuns Work Phone: [facility] 11-15-2023 12:49-0400 SaO2% (BldA) [Mass fraction] 89 % DO Sheldon Kuns Work Phone: [facility] 11-15-2023 12:49-0400 Systolic blood pressure 128 mm[Hg] DO Sheldon Kuns Work Phone: [facility] 10-17-2023 14:58-0500 Body height 157.48 cm DO Sheldon Kuns Work Phone: [facility] 10-17-2023 14:58-0500 Body mass index (BMI) [Ratio] 19.3 kg/m2 DO Sheldon Kuns Work Phone: [facility] 10-17-2023 14:58-0500 Body temperature 98 [degF] DO Sheldon Kuns Work Phone: [facility] 10-17-2023 14:58-0500 Body weight 48.08 kg DO Sheldon Kuns Work Phone: [facility] 10-17-2023 14:58-0500 Diastolic blood pressure 74 mm[Hg] DO Sheldon Kuns Work Phone: [facility] 10-17-2023 14:58-0500 Heart rate 87 /min DO Sheldon Kuns Work Phone: [facility] 10-17-2023 14:58-0500 Respiratory rate 2 /min DO [employer] Work Phone: [facility] 10-17-2023 14:58-0500 SaO2% (BldA) [Mass fraction] 95 % DO [employer] Work Phone: [facility] 10-17-2023 14:58-0500 Systolic blood pressure 134 mm[Hg] DO [employer] Work Phone: [facility] 08-09-2023 10:00-0500 Body height 157.48 cm Dre Looney Other [facility] 08-09-2023 10:00-0500 Body mass index (BMI) [Ratio] 19.57 kg/m2 Christsalonier Aure Other [facility] [address] [facility] Other 08-09-2023 10:00-0500 Body temperature 96.6 [degF] Kadeemer Aure Other [facility] [address] [facility] Other 08-09-2023 10:00-0500 Body weight 48.54 kg Kadeemer Aure Other [facility] [address] [facility] Other 08-09-2023 10:00-0500 Body weight 48.53 kg DO [employer] Work Phone: [facility] 08-09-2023 10:00-0500 Diastolic blood pressure 61 mm[Hg] Kadeemer Aure Other [facility] 08-09-2023 10:00-0500 Respiratory rate 20 /min Kadeemer Aure Other [facility] [address] [facility] Other 08-09-2023 10:00-0500 SaO2% (BldA) [Mass fraction] 97 % Kadeemer Aure Other [employer] Other 08-09-2023 10:00-0500 Systolic blood pressure 113 mm[Hg] Dre Looney Other [facility] 07-04-2023 10:30-0500 Body height 157.48 cm Sheldon Kuns Other [employer] Other 07-04-2023 10:30-0500 Body mass index (BMI) [Ratio] 20.12 kg/m2 Sheldon Kuns Other [employer] Other 07-04-2023 10:30-0500 Body weight 49.9 kg Sheldon Kuns Other [employer] Other 07-04-2023 10:30-0500 Diastolic blood pressure 70 mm[Hg] Sheldon Kuns Other [employer] Other 07-04-2023 10:30-0500 Respiratory rate 18 /min Sheldon Kuns Other [employer] Other 07-04-2023 10:30-0500 SaO2% (BldA) [Mass fraction] 95 % Sehldon Kuns Other [employer] Other 07-04-2023 10:30-0500 Systolic blood pressure 130 mm[Hg] Sheldon Kuns Other [employer] Other 05-30-2023 12:30-0400 Body height 157.48 cm Sheldon Kuns Other [employer] Other 05-30-2023 12:30-0400 Body mass index (BMI) [Ratio] 19.82 kg/m2 Sheldon Kuns Other [employer] Other 05-30-2023 12:30-0400 Body weight 49.17 kg Sheldon Kuns Other [employer] Other 05-30-2023 12:30-0400 Diastolic blood pressure 66 mm[Hg] Sheldon Kuns Other [employer] Other 05-30-2023 12:30-0400 Respiratory rate 18 /min Sheldon Kuns Other [employer] Other 05-30-2023 12:30-0400 SaO2% (BldA) [Mass fraction] 94 % Sheldon Kuns Other [employer] Other 05-30-2023 12:30-0400 Systolic blood pressure 128 mm[Hg] Sheldon Kuns Other [employer] Other 11-29-2022 13:30-0400 Body height 157.48 cm Sheldon Kuns Other [employer] Other 11-29-2022 13:30-0400 Body mass index (BMI) [Ratio] 18.36 kg/m2 Sheldon Kuns Other [employer] Other 11-29-2022 13:30-0400 Body weight 45.54 kg Sheldon Kuns Other [employer] Other 11-29-2022 13:30-0400 Diastolic blood pressure 58 mm[Hg] Sheldon Kuns Other [employer] Other 11-29-2022 13:30-0400 Respiratory rate 16 /min Sheldon Kuns Other [employer] Other 11-29-2022 13:30-0400 SaO2% (BldA) [Mass fraction] 93 % Sheldon Kuns Other [employer] Other 11-29-2022 13:30-0400 Systolic blood pressure 121 mm[Hg] Sheldon Kuns Other [employer] Other 09-29-2022 13:30-0500 Body height 157.48 cm Sheldon Kuns Other [employer] Other 09-29-2022 13:30-0500 Body mass index (BMI) [Ratio] 18.65 kg/m2 Sheldon Kuns Other [employer] Other 09-29-2022 13:30-0500 Body weight 46.27 kg Sheldon Kuns Other [employer] Other 09-29-2022 13:30-0500 Diastolic blood pressure 64 mm[Hg] Sheldon Kuns Other [employer] Other 09-29-2022 13:30-0500 Respiratory rate 16 /min Sheldon Kuns Other [employer] Other 09-29-2022 13:30-0500 SaO2% (BldA) [Mass fraction] 88 % Sheldon Kuns Other [employer] Other 09-29-2022 13:30-0500 Systolic blood pressure 132 mm[Hg] Sheldon Kuns Other [employer] Other 09-01-2022 13:30-0500 Body height 157.48 cm Sheldon Kuns Other [employer] Other 09-01-2022 13:30-0500 Body mass index (BMI) [Ratio] 18.84 kg/m2 Sheldon Kuns Other [employer] Other 09-01-2022 13:30-0500 Body weight 46.72 kg Sheldon Kuns Other [employer] Other 09-01-2022 13:30-0500 Diastolic blood pressure 64 mm[Hg] Sheldon Kuns Other [employer] Other 09-01-2022 13:30-0500 Respiratory rate 16 /min Sheldon Kuns Other [employer] Other 09-01-2022 13:30-0500 SaO2% (BldA) [Mass fraction] 98 % Sheldon Kuns Other [employer] Other 09-01-2022 13:30-0500 Systolic blood pressure 104 mm[Hg] Sheldon Kuns Other [employer] Other 06-23-2022 13:30-0400 Body height 157.48 cm Sheldon Kuns Other [employer] Other 06-23-2022 13:30-0400 Body mass index (BMI) [Ratio] 19.57 kg/m2 Sheldon Kuns Other [employer] Other 06-23-2022 13:30-0400 Body weight 48.54 kg Sheldon Kuns Other [employer] Other 10-27-2022 13:30-0400 Diastolic blood pressure 60 mm[Hg] Sheldon Kuns Other [employer] Other 06-23-2022 13:30-0400 Respiratory rate 16 /min Sheldon Kuns Other [employer] Other 06-23-2022 13:30-0400 SaO2% (BldA) [Mass fraction] 98 % Sheldon Kuns Other [employer] Other 06-23-2022 13:30-0400 Systolic blood pressure 134 mm[Hg] Sheldon Kuns Other [employer] Other 05-24-2022 13:30-0400 Body height 157.48 cm Sheldon Kuns Other [employer] Other 05-24-2022 13:30-0400 Body mass index (BMI) [Ratio] 19.75 kg/m2 Sheldon Kuns Other [employer] Other 05-24-2022 13:30-0400 Body weight 48.99 kg Sheldon Kuns Other [employer] Other 05-24-2022 13:30-0400 Diastolic blood pressure 62 mm[Hg] Sheldon Kuns Other [employer] Other 05-24-2022 13:30-0400 Respiratory rate 16 /min Sheldon Kuns Other [employer] Other 05-24-2022 13:30-0400 SaO2% (BldA) [Mass fraction] 98 % Sheldon Kuns Other [employer] Other 05-24-2022 13:30-0400 Systolic blood pressure 122 mm[Hg] Sheldon [employer] Other [employer] [facility] [address] [facility] Other 04-18-2022 12:55-0400 Body temperature 97.3 [degF] DO Sheldon Kuns Work Phone: [facility] 04-18-2022 12:55-0400 Diastolic blood pressure 62 mm[Hg] DO Sheldon Kuns Work Phone: [facility] 04-18-2022 12:55-0400 Heart rate 73 /min DO Sheldon Kuns Work Phone: [facility] 04-18-2022 12:55-0400 Respiratory rate 18 /min DO Sheldon Kuns Work Phone: [facility] 04-18-2022 12:55-0400 SaO2% (BldA) [Mass fraction] 95 % DO Sheldon Kuns Work Phone: [facility] 04-18-2022 12:55-0400 Systolic blood pressure 128 mm[Hg] DO Sheldon Kuns Work Phone: [facility] 03-22-2022 13:30-0400 Body height 157.48 cm Sheldonnicola Alvess Other [employer] Other 03-22-2022 13:30-0400 Body mass index (BMI) [Ratio] 20.48 kg/m2 Sheldon [employer] Other [employer] Other 03-22-2022 13:30-0400 Body weight 50.8 kg Sheldon [employer] Other [employer] Other 03-22-2022 13:30-0400 Diastolic blood pressure 70 mm[Hg] Sheldon Kuns Other [employer] Other 03-22-2022 13:30-0400 Respiratory rate 16 /min Sheldon Xie Other [employer] Other 03-22-2022 13:30-0400 SaO2% (BldA) [Mass fraction] 96 % Sheldon Xie Other [employer] Other 03-22-2022 13:30-0400 Systolic blood pressure 130 mm[Hg] Sheldonnicola Xie Other [employer] Other 02-08-2022 11:19-0400 Body height 157.48 cm Sheldonnicola Alvess Work Phone: [facility] [place] [facility] Work Phone: 02-08-2022 11:19-0400 Body mass index (BMI) [Ratio] 21.03 kg/m2 Sheldonnicola Alvess Work Phone: [facility] [place] [facility] DO Work Phone: 02-08-2022 11:19-0400 Body surface area Derived from formula 1.51 m2 Sheldon Alvess Work Phone: [facility] [place] [facility] DO Work Phone: 02-08-2022 11:19-0400 Body weight 52.16 kg Sheldon R Longs Work Phone: [facility] [employer] [employer] DO Work Phone: 02-08-2022 11:19-0400 Diastolic blood pressure 70 mm[Hg] Sheldon R Kuns Work Phone: [facility] [employer] DO Work Phone: 02-08-2022 11:19-0400 Heart rate 78 /min Sheldon R Kuns Work Phone: [facility] [place] [address] DO Work Phone: 02-08-2022 11:19-0400 Systolic blood pressure 142 mm[Hg] Sheldon R Longs Work Phone: [facility] 250 DO Work Phone: 12-21-2021 14:00-0400 Body height 157.48 cm Sheldon Kuns Other [facility] [address] [facility] Other 12-21-2021 14:00-0400 Body mass index (BMI) [Ratio] 20.67 kg/m2 Sheldon Kuns Other [place] [place] [employer] Other 12-21-2021 14:00-0400 Body weight 51.26 kg Sheldon Kuns Other [employer] [place] [employer] Other 12-21-2021 14:00-0400 Diastolic blood pressure 74 mm[Hg] Sheldon Kuns Other [facility] [address] [facility] Other 12-21-2021 14:00-0400 Respiratory rate 16 /min Sheldon Kuns Other [employer] [place] [employer] Other 12-21-2021 14:00-0400 SaO2% (BldA) [Mass fraction] 94 % Sheldon Kuns Other [employer] Other 12-21-2021 14:00-0400 Systolic blood pressure 138 mm[Hg] Sheldon Kuns Other [employer] Other 12-02-2021 14:30-0400 Body height 157.48 cm Sheldon Kuns Other [employer] Other 12-02-2021 14:30-0400 Body mass index (BMI) [Ratio] 20.67 kg/m2 Sheldon Kuns Other [employer] Other 12-02-2021 14:30-0400 Body weight 51.26 kg Sheldon Kuns Other [employer] Other 12-02-2021 14:30-0400 Diastolic blood pressure 80 mm[Hg] Sheldon Kuns Other [employer] Other 12-02-2021 14:30-0400 Respiratory rate 18 /min Sheldon Kuns Other [employer] Other 12-02-2021 14:30-0400 SaO2% (BldA) [Mass fraction] 95 % Sheldon Kuns Other [employer] Other 12-02-2021 14:30-0400 Systolic blood pressure 152 mm[Hg] Sheldon Kuns Other [employer] Other 11-24-2021 13:30-0400 Body height 157.48 cm Sheldon Kuns Other [employer] Other 11-24-2021 13:30-0400 Body mass index (BMI) [Ratio] 20.67 kg/m2 Sheldon Kuns Other [employer] Other 11-24-2021 13:30-0400 Body weight 51.26 kg Sheldon Kuns Other [employer] Other 11-24-2021 13:30-0400 Diastolic blood pressure 70 mm[Hg] Sheldon Kuns Other [employer] Other 11-24-2021 13:30-0400 Respiratory rate 16 /min Sheldon Kuns Other [employer] Other 11-24-2021 13:30-0400 SaO2% (BldA) [Mass fraction] 93 % Sheldonnicola Alvesjagdish Other [employer] Other 11-24-2021 13:30-0400 Systolic blood pressure 134 mm[Hg] Sheldon Xie Other [employer] Other 06-10-2021 12:30-0400 Body height 157.48 cm Alireza Olvera Other [employer] Other 06-10-2021 12:30-0400 Body mass index (BMI) [Ratio] 20.3 kg/m2 Alireza Olvera Other [employer] Other 06-10-2021 12:30-0400 Body weight 50.35 kg Alireza Olvera Other [employer] Other 06-10-2021 12:30-0400 Diastolic blood pressure 78 mm[Hg] Alireza Olvera Other [employer] Other 06-10-2021 12:30-0400 Respiratory rate 18 /min Alireza Olvera Other [employer] Other 06-10-2021 12:30-0400 SaO2% (BldA) [Mass fraction] 97 % Alireza Olvera Other [employer] Other 06-10-2021 12:30-0400 Systolic blood pressure 128 mm[Hg] Alireza Olvera Other [employer] Other Encounters Encounter Date Encounter Type Care Provider Facility Start: 02-27-2025 End: 02-27-2025 ambulatory EHAB CARMENLadi [facility] Start: 02-06-2025 ambulatory ARTEM DEL RIO [facility] Start: 01-01-2025 End: 01-01-2025 Patient encounter procedure [facility] Comment on above: 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) Start: 12-04-2024 End: 12-04-2024 ambulatory TAMMY MELGAR Not Available Start: 11-14-2024 End: 11-14-2024 Patient encounter procedure Sheldon Kuns DO Work Phone: [facility] Work Phone: Start: 11-14-2024 End: 11-14-2024 ambulatory Sheldon Kuns DO Work Phone: [facility] Work Phone: Start: 11-13-2024 End: 11-13-2024 ambulatory [...] Not Available Start: 09-19-2024 End: 09-19-2024 ambulatory [facility] Work Phone: Start: 09-19-2024 End: 09-19-2024 Patient encounter procedure [facility] [place] Work Phone: Start: 07-09-2024 End: 07-09-2024 ambulatory Sheldon Kuns DO Work Phone: [facility] Work Phone: Start: 07-09-2024 End: 07-09-2024 Patient encounter procedure Shledon Kuns DO Work Phone: [facility] Pulmonary Disease Work Phone: Start: 07-08-2024 Non-patient / Non-visit Sheldon Kuns DO Work Phone: [facility] Work Phone: Start: 06-18-2024 End: 06-18-2024 Patient encounter procedure DO Sheldon Kuns Work Phone: [facility] Start: 06-18-2024 End: 06-18-2024 ambulatory DO Sheldon Kuns Work Phone: [facility] Work Phone: Start: 06-18-2024 End: 06-18-2024 ambulatory DO Sheldon Kuns Work Phone: [facility] Work Phone: Start: 06-18-2024 End: 06-18-2024 Patient encounter procedure DO Sheldon Kuns Work Phone[facility] [place] Work Phone: Start: 06-06-2024 End: 06-06-2024 ambulatory DO Sheldon Kuns Work Phone: [facility] Work Phone: Start: 06-06-2024 End: 06-06-2024 Patient encounter procedure DO Sheldon Kuns Work Phone: [facility] Work Phone: Start: 05-16-2024 End: 05-16-2024 Patient encounter procedure DO Sheldon Kuns Work Phone: [facility] Start: 05-16-2024 End: 05-16-2024 ambulatory DO Sheldon Kuns Work Phone: [facility] Work Phone: Start: 05-16-2024 End: 05-16-2024 ambulatory DO Sheldon Kuns Work Phone: [facility] Work Phone: Start: 05-16-2024 End: 05-16-2024 Patient encounter procedure DO Sheldon Kuns Work Phone: [facility] [place] Work Phone: Start: 05-15-2024 End: 05-15-2024 Patient encounter procedure DO Sheldon Kuns Work Phone: [facility]-Lab [place] Work Phone: Start: 05-15-2024 End: 05-15-2024 ambulatory DO Sheldon Kuns Work Phone: [facility] Work Phone: Start: 03-19-2024 End: 03-19-2024 ambulatory DO Sheldon Kuns Work Phone: [facility] Work Phone: Start: 03-19-2024 End: 03-19-2024 Patient encounter procedure DO Sheldon Kuns Work Phone: [facility] [place] Work Phone: Start: 03-04-2024 End: 03-04-2024 ambulatory DO Sheldon Kuns Work Phone: [facility] Work Phone: Start: 03-04-2024 End: 03-04-2024 Discharged Recurring DO Sheldon Kuns Work Phone: [facility] [place] Work Phone: Start: 02-09-2024 End: 02-09-2024 Office outpatient visit 25 minutes Ronnie Colvin MD Work Phone: [facility] Comment on above: Benign essential hyp ertension (Primary Dx); Paroxysmal supraventricular tachycardia (CMS-HCC); Mixed hyperlipidemia; Former cigarette smoker Start: 02-09-2024 End: 02-09-2024 ambulatory RONNIE COLVIN [facility] Ambulatory Start: 01-29-2024 End: 01-29-2024 ambulatory DO Sheldon Kuns Work Phone: [facility] Work Phone: Start: 01-29-2024 End: 01-29-2024 Patient encounter procedure DO Sheldon Kuns Work Phone: [facility] [place] Work Phone: Start: 01-25-2024 Registered Recurring DO Sheldon Kuns Work Phone: [facility] [place] Work Phone: Start: 01-09-2024 End: 01-09-2024 Patient encounter procedure DO Sheldon Kuns Work Phone: [facility] Pulmonary Disease Work Phone: Start: 12-20-2023 Non-patient / Non-visit DO Mandy tt Kuns Work Phone: [facility] Work Phone: Start: 12-14-2023 End: 12-14-2023 ambulatory DO Sheldon Kuns Work Phone: [facility] Work Phone: Start: 12-14-2023 End: 12-14-2023 Patient encounter procedure DO Sheldon Kuns Work Phone: [facility] [place] Work Phone: Start: 12-06-2023 Non-patient / Non-visit DO Amndy tt Kuns Work Phone: [facility] Pulmonary Disease Work Phone: Start: 12-05-2023 End: 12-05-2023 Patient encounter procedure DO Sheldon Kuns Work Phone: [facility]-Sleep Lab Work Phone: Start: 12-05-2023 End: 12-05-2023 ambulatory DO Sheldon Kuns Work Phone: [facility] Work Phone: Start: 11-20-2023 End: 11-20-2023 Patient encounter procedure DO Sheldon Kuns Work Phone: [facility] Start: 11-20-2023 End: 11-20-2023 ambulatory DO Sheldon Kuns Work Phone: [facility] Work Phone: Start: 11-16-2023 End: 11-16-2023 ambulatory DO Sheldon Kuns Work Phone: [facility] Work Phone: Start: 11-16-2023 End: 11-16-2023 Patient encounter procedure DO Sheldon Kuns Work Phone: [facility] Work Phone: Start: 11-15-2023 End: 11-15-2023 ambulatory DO Sheldon Kuns Work Phone: [facility] Work Phone: Start: 11-15-2023 End: 11-15-2023 Patient encounter procedure DO Sheldon Kuns Work Phone: [facility] [place] Work Phone: Start: 11-06-2023 Non-patient / Non-visit DO Mandy tt Kuns Work Phone: [facility] Work Phone: Start: 10-17-2023 End: 10-17-2023 ambulatory DO Sheldon Kuns Work Phone: [facility] Work Phone: Start: 10-17-2023 End: 10-17-2023 Patient encounter procedure DO Sheldon Kuns Work Phone: [facility] Pulmonary Disease Work Phone: Start: 10-10-2023 End: 10-10-2023 ambulatory DO Sheldon Kuns Work Phone: [facility] Work Phone: Start: 10-10-2023 End: 10-10-2023 Patient encounter procedure DO Sheldon Kuns Work Phone: [facility] Start: 10-05-2023 Non-patient / Non-visit DO Mandy tt Kuns Work Phone: [facility] [email or web address] Work Phone: Start: 09-26-2023 End: 09-26-2023 ambulatory DO Sheldonnicola Alvess Work Phone: [facility] Work Phone: Start: 09-26-2023 End: 09-26-2023 Patient encounter procedure DO Sheldon Longs Work Phone: [facility]-Lab [place] Work Phone: Start: 09-13-2023 End: 09-13-2023 ambulatory Sheldonnicola Alvess Other [facility] [address] [facility] Other Start: 09-13-2023 Telephone encounter Sheldon Anne-Marie [facility] Patient Access Coordinator Start: 09-01-2023 End: 09-01-2023 Patient encounter procedure DO Sheldon Longs Work Phone: [facility]-Electrodiagnostic s Work Phone: Start: 08-30-2023 End: 09-28-2023 ambulatory SHELDON XIE [facility] Start: 08-09-2023 End: 08-09-2023 ambulatory Dre Looney Other [facility] [address] [facility] Other Start: 08-09-2023 Office outpatient ne w 45 minutes Dre Looney [facility] Pulmonary Disease Start: 08-09-2023 End: 08-09-2023 Patient encounter procedure DO Sheldon Longs Work Phone: [facility] Work Phone: Start: 08-07-2023 End: 08-07-2023 Patient encounter procedure DO Sheldon Kuns Work Phone: [facility]-Respiratory Therapy Work Phone: Start: 07-04-2023 End: 07-04-2023 ambulatory Sheldon Kuns Other [employer] Other Start: 07-04-2023 Office outpatient vi sit 25 minutes Sheldon Kuns [facility] [place] Start: 07-04-2023 End: 07-04-2023 Patient encounter procedure DO Sheldon Kuns Work Phone: [facility] [place] Work Phone: Start: 05-30-2023 End: 05-30-2023 ambulatory Sheldon Kuns Other [employer] Other Start: 05-30-2023 Office outpatient vi sit 25 minutes Sheldon Kuns [facility] [place] Start: 05-30-2023 Telephone encounter Sheldon Kuns [facility] [place] Start: 05-24-2023 End: 05-24-2023 ambulatory DO Sheldon Kuns Work Phone: [facility] Work Phone: Start: 05-24-2023 End: 05-24-2023 Patient encounter procedure DO Sheldon Kuns Work Phone: [facility] Work Phone: Start: 05-02-2023 End: 05-02-2023 ambulatory Sheldon Kuns Other [employer] Other Start: 05-02-2023 Telephone encounter Sheldon Kuns [facility] [place] Start: 02-20-2023 End: 02-20-2023 ambulatory Sheldon Kuns Other [employer] Other Start: 02-20-2023 [facility] Start: 01-10-2023 End: 01-11-2023 ambulatory SAMMIE DURAN Facility:[facility] Start: 12-26-2022 [facility] Start: 12-20-2022 Office outpatient vi sit 15 minutes Sammie Duran [facility] Start: 12-20-2022 End: 12-20-2022 ambulatory DO Sheldon Kuns Work Phone: [facility] Work Phone: Start: 12-20-2022 End: 12-20-2022 Patient encounter procedure DO Sheldon Kuns Work Phone: [facility] Start: 12-14-2022 End: 12-14-2022 ambulatory Sheldon Kuns Other [employer] Other Start: 12-14-2022 Telephone encounter Sheldon Kuns [facility] Start: 12-12-2022 End: 12-15-2022 ambulatory SAMMIE DURAN Facility: Start: 12-05-2022 Rx Renewal Sheldon R Kuns Work Phone: [facility] 250 DO Work Phone: Start: 11-29-2022 End: 11-29-2022 ambulatory Sheldon Kuns Other [employer] Other Start: 11-29-2022 Office outpatient vi sit 25 minutes Sheldon Kuns [facility] Start: 11-22-2022 Rx Renewal Sheldon R Kuns Work Phone: [facility] 250 DO Work Phone: Start: 11-21-2022 End: 11-21-2022 ambulatory Sammie Duran Other [employer] Other Start: 11-21-2022 Telephone encounter Sammie Duran [facility] Start: 11-14-2022 End: 11-14-2022 ambulatory SAMMIE DURAN Facility:H1 Start: 11-11-2022 Rx Renewal Sheldon R Kuns Work Phone: [facility] 250 DO Work Phone: Start: 11-08-2022 End: 11-08-2022 ambulatory DO Sheldon Kuns Work Phone: [facility] Work Phone: Start: 11-08-2022 End: 11-08-2022 Patient encounter procedure DO Sheldon Kuns Work Phone: [facility] [place] [facility] Start: 10-17-2022 End: 10-17-[address] SHELDON XIE Facility: Start: 10-12-2022 End: 10-12-2022 ambulatory Sheldon Xie Other [employer] Other Start: 10-12-2022 Telephone encounter Sheldon Xie [facility] [place] Start: 10-04-2022 End: 10-04-2022 ambulatory DO Sheldon Kuns Work Phone: [facility] Work Phone: Start: 10-04-2022 End: 10-04-2022 Patient encounter procedure DO Sheldon Kuns Work Phone: [facility] [place] [facility] Start: 09-29-2022 Office outpatient vi sit 25 minutes Sheldon Xie [facility] [place] Start: 09-29-2022 Telephone encounter Sammie Duran [facility] Start: 09-29-2022 End: 09-29-2022 ambulatory DO Sheldon Kuns Work Phone: [facility] Work Phone: Start: 09-29-2022 End: 09-29-2022 Patient encounter procedure DO Sheldon Kuns Work Phone: [facility] [place] Work Phone: Start: 09-27-2022 End: 09-27-2022 ambulatory Sammie Duran Other [employer] Other Start: 09-27-2022 Office outpatient vi sit 25 minutes Sammie Duran [facility] Start: 09-15-2022 Postop follow up vis it related to original px Sammie Duran [facility] Start: 09-15-2022 Telephone encounter Sheldon Kuns [facility] [place] Start: 09-15-2022 End: 09-15-2022 ambulatory DO Sheldon Kuns Work Phone: [facility] Work Phone: Start: 09-15-2022 End: 09-15-2022 Patient encounter procedure DO Sheldon Kuns Work Phone: [facility] [place] [facility] Start: 09-02-2022 End: 09-02-2022 ambulatory Sheldon Kuns Other [employer] Other Start: 09-02-2022 FQHC visit new patient Sammie piña [facility] Start: 09-02-2022 Telephone encounter Sheldon Kuns [facility] [place] Start: 09-01-2022 Office outpatient vi sit 25 minutes Sheldon Kuns [facility] [place] Start: 09-01-2022 End: 09-01-2022 ambulatory DO Sheldon Kuns Work Phone: [facility] Work Phone: Start: 09-01-2022 End: 09-01-2022 Patient encounter procedure DO Sheldon Kuns Work Phone: [facility]-X-Ray [facility] Start: 08-08-2022 End: 08-08-2022 ambulatory Sheldon Kuns Other [employer] Other Start: 08-08-2022 Telephone [facility] Start: 08-04-2022 End: 08-04-2022 ambulatory Sheldon Kuns Other [employer] Other Start: 08-04-2022 Telephone encounter Sheldno Kuns [facility] Start: 07-29-2022 End: 07-29-2022 ambulatory Sheldon Kuns Other [employer] Other Start: 07-29-2022 Nursing evaluation o f patient and report Sheldon Kuns [facility] Start: 07-29-2022 Telephone encounter Sheldon Kuns [facility] Start: 06-23-2022 End: 06-23-2022 ambulatory Sheldon Kuns Other [employer] Other Start: 06-23-2022 Office outpatient vi sit 25 minutes Sheldon Kuns [facility] Start: 06-16-2022 End: 06-16-2022 ambulatory DO Sheldon Kuns Work Phone: [facility] Work Phone: Start: 06-16-2022 End: 06-16-2022 Patient encounter procedure DO Sheldon Kuns Work Phone: [facility]-Lab [place] Start: 06-03-2022 End: 06-03-2022 ambulatory DO Sheldon Kuns Work Phone: [facility] Work Phone: Start: 06-03-2022 End: 06-03-2022 Patient encounter procedure DO Sheldon Kuns Work Phone: [facility]-CT Scan [place] Start: 06-02-2022 End: 06-02-2022 ambulatory Sheldon Kuns Other [employer] Other Start: 06-02-2022 Telephone encounter Sheldon Kuns [facility] Start: 05-24-2022 End: 05-24-2022 ambulatory Sheldon Kuns Other [employer] Other Start: 05-24-2022 Office outpatient vi sit 25 minutes Sheldon Kuns [facility] Start: 05-16-2022 End: 05-16-2022 ambulatory Sheldon Kuns Other [employer] Other Start: 05-16-2022 Telephone encounter Shledon Kuns [facility] Start: 04-18-2022 Registered Recurring DO Sheldon Kuns Work Phone: [facility]-Infusion Therapy - O/P Start: 04-13-2022 End: 04-14-2022 ambulatory ELMAJACOB CHRISTINA . Facility:[facility]1 Start: 04-05-2022 End: 04-06-[address] SHELDON XIE Facility:[facility]1 Start: 04-01-2022 End: 04-01-2022 Patient encounter procedure DO Sheldon Kuns Work Phone: [facility]-Lab [place] Start: 03-22-2022 End: 03-22-2022 ambulatory Sheldon Kuns Other [employer] Other Start: 03-22-2022 Office outpatient vi sit 25 minutes Sheldon Kuns [facility] Start: 02-09-2022 End: 02-09-2022 ambulatory Sheldon Kuns Other [employer] Other Start: 02-09-2022 Telephone encounter Sheldon Kuns [facility] Start: 02-09-2022 End: 02-09-2022 Patient encounter procedure DO Sheldon Kuns Work Phone: [facility] [place] Start: 02-08-2022 Office outpatient vi sit 25 minutes Sheldon R Kuns Work Phone: [facility] 250 DO Work Phone: Start: 01-19-2022 End: 01-19-2022 ambulatory Sheldon Kuns Other [employer] Other Start: 01-19-2022 Telephone encounter Sheldon Kuns [facility] [place] Start: 01-05-2022 Rx Renewal Ronnie mckee MD Work Phone: [facility] 250 DO Work Phone: Start: 12-21-2021 End: 12-21-2021 ambulatory Sheldon Kuns Other [employer] Other Start: 12-21-2021 Office outpatient vi sit 25 minutes [facility] Kuns [facility] Start: 12-02-2021 End: 12-02-2021 ambulatory Sheldon Kuns Other [employer] Other Start: 12-02-2021 Office outpatient vi sit 25 minutes [facility] Start: 11-29-2021 Rx Renewal Ronnie mckee MD Work Phone: [facility] 250 DO Work Phone: Start: 11-24-2021 End: 11-24-2021 ambulatory Sheldon Kuns Other [employer] Other Start: 11-24-2021 Office outpatient vi sit 25 minutes [facility] Kuns [facility] Start: 10-20-2021 End: 10-20-2021 ambulatory Sheldon Kuns Other [employer] Other Start: 10-20-2021 Telephone encounter Sheldon Kuns [facility] [place] Start: 10-19-2021 End: 10-19-2021 ambulatory Sheldon Kuns Other [employer] Other Start: 10-19-2021 Telephone encounter [facility]uns [facility] Start: 10-12-2021 Rx Renewal Ronnie mckee MD Work Phone: [facility] 600 DO Work Phone: Start: 10-07-2021 End: 10-07-2021 ambulatory Sheldon Kuns Other [facility] [address] [facility] Other Start: 10-07-2021 Telephone encounter Sheldon Kuns [facility] Start: 09-07-2021 End: 09-07-2021 ambulatory Sheldon Kuns Other [facility] [address] [facility] Other Start: 09-07-2021 Telephone encounter Sheldon Kuns [facility] Start: 07-06-2021 End: 07-06-2021 ambulatory Sheldon Kuns Other [facility] [address] [facility] Other Start: 07-06-2021 Telephone encounter Sheldon Longs [facility] Start: 06-15-2021 Telephone encounter Alireza Ivy [facility] Patient Access Coordinator Start: 06-10-2021 Office outpatient vi sit 25 minutes Alireza Olvera [facility] Vascular Surgery Procedures Date Procedure Procedure Detail [...] right rib DO Sheldon Kuns Work Phone: Appendectomy Sheldon R Kuns Work Phone: Cataract surgery Sheldon R Long s Work Phone: Hysterectomy Sheldon R Kuns Work Phone: Operation on the ear Sheldon Xie Work Phone: Total colonoscopy Sheldon Yakov Harsh reyes Work Phone: Comment on above: [id number]; Plan of Treatment Date Care Activity Detail Author Start: 02-11-2025 End: 02-11-2025 Patient encounter procedure 02/11/2025 1:00 PM EDT Office Visit [facility] [address] [facility] [address] [place] [address] Celestina Khalil MD [address] [facility] [facility] [place] [address] [facility] Start: 01-01-2025 End: 01-01-2025 Patient encounter procedure 01/01/2025 3:00 PM EDT Office Visit [facility] [address] [place] [address] [facility] Start: 09-20-2024 End: 09-20-2024 Patient encounter procedure 09/20/2024 1:00 PM EST Office Visit [facility] [address] [place] [id number] Tammy Melgar, AUD [address] [facility] [place] [address] Arrived [facility] Comment on above: Arrived Start: 04-28-2023 COVID-19 Vaccine ( season) COVID-19 Vaccine ( season) [facility] Start: 02-07-2023 FUV, Provider: Ronnie Colvin, Status: Pen, Time: 11:10 AM FUV, Provider: Ronnie Colvin, Status: Pen, Time: 11:10 AM -[facility] DO Work Phone: Start: 10-04-2022 Dual energy X-ray absorptiometry XR dexa axial skeleton [facility] Start: 04-18-2022 Registered Recurring Registered Recu rring [facility]-Infusion Therapy - O/P Start: 02-08-2022 FUV, Provider: Ronnie Colvin, Status: Pen, Time: 10:30 AM FUV, Provider: Ronnie Colvin, Status: Pen, Time: 10:30 AM -[facility] 600 DO Work Phone: Start: 12-11-2019 Pneumococcal Vaccine : 65+ Years (2 of 2 - PPSV23 or PCV20) Pneumococcal Vaccine: 65+ Years (2 of 2 - PPSV23 or PCV20) [facility] Start: 12-11-2019 Pneumococcal Vaccine : 65+ Years (2 of 2 - PPSV23) Pneumococcal Vaccine: 65+ Years (2 of 2 - PPSV23) [facility] Start: 2001 RSV patient s and/or patients aged 60+ years (1 - 1-dose 60+ series) RSV patients and/or patients aged 60+ years (1 - 1-dose 60+ series) [facility] Start: 1963 DTaP/Tdap/Td Vaccine s (1 - Tdap) DTaP/Tdap/Td Vaccines (1 - Tdap) [facility] Start: 1959 Diabetes mellitus screening Diabetes Screening [facility] Start: 1941 Lipid panel Lipid Panel [facility] Start: 1941 Medicare Annual Well ness Visit Medicare Annual Wellness Visit (AWV) [facility] Start: 1941 Screening for osteoporosis Bone Density Scan [facility] Comprehensive metabo lic 1999 panel - Serum or Plasma [facility] Comprehensive metabo lic 1999 panel - Serum or Plasma [facility] Comprehensive metabo lic 1999 panel - Serum or Plasma [facility] Patient Education Low back pain in adults [facility] Work Phone: XR Cervical spine [address] [facility] XR Chest 2 Views [facility] XR Hip - left Single view [facility] XR Lumbar spine Views [facility] XR Ribs - right 2 Views [facility] XR Sacrum and Coccyx GE 2 Views [facility] Immunizations Immunization Date Immunization Notes Care Provider [facility] 06-18-2024 influenza, high dose seasonal, preservative-free DO Sheldon Kuns Work Phone: [facility] 05-30-2023 influenza, high dose seasonal, preservative-free Sheldon Kuns Other [facility] 05-30-2023 influenza virus vaccine, unspecified formulation DO Sheldon Kuns Work Phone: [facility] 05-24-2022 influenza, high dose seasonal, preservative-free Sheldon Kuns Other [facility] 05-24-2022 influenza virus vaccine, unspecified formulation DO Sheldon Kuns Work Phone: [facility] 06-01-2021 [employer] COVID-19 Vacc 30 MCG/0.3ML Intramuscular Suspension Sheldon R [employer] Work Phone: [facility] 05-02-2021 influenza, high dose seasonal, preservative-free Alireza Olvera Other [place] [employer] Other 05-02-2021 Fluzone High-Dose Quadrivalent 0.7 ML Intramuscular Suspension Prefilled Syringe Sheldon R [employer] Work Phone: [facility] 05-02-2021 influenza virus vaccine, unspecified formulation DO Sheldon Kuns Work Phone: [facility] 10-17-2020 COVID-19 Vaccine Pfi zer - Documentation Purposes Only Alireza Olvera Other [facility] 09-26-2020 COVID-19 Vaccine Pfi zer - Documentation Purposes Only Alireza Olvera Other [facility] 05-08-2020 influenza, seasonal, injectable Alireza Olvera Other [facility] 04-28-2020 influenza virus vaccine, unspecified formulation Sheldon R Kuns Work Phone: [facility] 250 DO Work Phone: 08-16-2019 zoster vaccine recombinant Alireza Olvera Other [facility] 06-03-2019 zoster vaccine recombinant Alireza Olvera Other [facility] 06-03-2019 influenza, seasonal, injectable Alireza Olvera Other [facility] 05-28-2019 influenza virus vaccine, unspecified formulation Sheldon R Kuns Work Phone: [place] [address] DO Work Phone: 12-10-2018 pneumococcal conjuga te vaccine, 13 valent Alireza Olvera Other [facility] 08-28-2018 pneumococcal polysaccharide vaccine, 23 valent Sheldon R Kuns Work Phone: [place] [address] DO Work Phone: 05-28-2018 influenza virus vaccine, unspecified formulation Sheldon R Kuns Work Phone: [place] [address] DO Work Phone: 05-16-2018 influenza virus vaccine, unspecified formulation DO Sheldon Kuns Work Phone: [facility] 05-16-2018 influenza, high dose seasonal, preservative-free Alireza Aparicioenberg Other [facility] 08-28-2017 pneumococcal conjuga te vaccine, 13 valent Sheldon R Kuns Work Phone: [facility] 250 DO Work Phone: 05-30-2017 influenza virus vaccine, unspecified formulation DO Sheldon Kuns Work Phone: [facility] 05-30-2017 influenza, high dose seasonal, preservative-free Alireza Langenberg Other [facility] 05-28-2017 influenza virus vaccine, unspecified formulation Sheldon R Kuns Work Phone: [facility] [place] 250 DO Work Phone: 09-06-2016 Toradol per 15 mg Alireza La ngenberg Other [facility] [address] [facility] Other 09-01-2016 Toradol per 15 mg Alireza La ngenberg Other [facility] [address] [facility] Other 06-14-2016 influenza virus vaccine, unspecified formulation DO Sheldon Kuns Work Phone: [facility] 06-14-2016 influenza, high dose seasonal, preservative-free Alireza Langenberg Other [facility] 05-28-2016 influenza virus vaccine, unspecified formulation Sheldon R Kuns [facility] 250 DO Work Phone: 06-05-2015 influenza virus vaccine, unspecified formulation DO Sheldon Kuns Work Phone: [facility] 06-05-2015 influenza, high dose seasonal, preservative-free Alireza Langenberg Other [facility] 05-28-2015 influenza virus vaccine, unspecified formulation Sheldon R Kuns [facility]: [facility] DO Work Phone: 05-14-2014 influenza, high dose seasonal, preservative-free Alireza Langenberg Other [facility] [address] Other 05-14-2014 influenza virus vaccine, unspecified formulation DO Sheldon Kuns Work Phone: [facility] 06-06-2013 zoster vaccine, live Sheldon R Kuns Work Phone: [facility] 08-28-2010 pneumococcal polysaccharide vaccine, 23 valent Sheldon Xie Work Phone: -[facility] 250 DO Work Phone: influenza virus vaccine, unspecified formulation Sheldon Xie Work [facility]: [facility] DO Work Phone: Comment on above: May [id number] Payers Date Payer Category Payer Medicare (Managed Care) [facility] [id number] 2023 Self-pay [id number] 2023 Medicare [employer]ICARE [employer] MEDICARE [id number] 2023-Present [address] [place] [address] [id number] 2023 Private Health Insurance [id number] 1959 Medicare [id number] 1959 Medicare [id number] 1959 Self-pay [id number] 1941 Unknown [id number] 2.16.840.1.522260.3.579.2. 593 1941 Unknown [id number] 2.16.840.1.087595.3.579.2. 593 1941 Unknown [id number] 2.16.840.1.519472.3.579.2. 593 1941 Unknown [id number] 2.16.840.1.391283.3.579.2. 593 1941 Unknown [id number] 2.16.840.1.249645.3.579.2. 593 1941 Unknown [id number] 2.16.840.1.192544.3.579.2. 593 1941 Unknown [id number] 2.16.840.1.571902.3.579.2. 593 1941 Unknown [id number] 2.16.840.1.825227.3.579.2. 593 1941 Unknown [id number] 2.16.840.1.318166.3.579.2. 1286 1941 Unknown [id number] 2.16.840.1.793341.3.579.2. 1259 1941 Unknown [id number] 2.16.840.1.020364.3.579.2. 1259 1941 Unknown [id number] 2.16.840.1.997531.3.579.2. 1259 1941 Unknown [id number] 2.16.840.1.534159.3.579.2. 1259 1941 Unknown [id number] 2.16.840.1.799465.3.579.2. 1244 Medicare [id number] 2.16.840.1.597167.19 Medicare Medicare [id number] Unknown [employer] Unknown [id number] 2.16.840.1.839437.3.579.2. 531 Unknown [id number] 2.16.840.1.752253.3.579.2. 531 Unknown [id number] 2.16.840.1.758236.3.579.2. 531 Unknown [id number] 2.16.840.1.541237.3.579.2. 531 Unknown [id number] 2.16.840.1.618200.3.579.2. 531 Unknown [id number] 2.16.840.1.551220.3.579.2. 531 Unknown [id number] 2.16.840.1.503186.3.579.2. 531 Social History Date Type Detail Facility Start: 02-09-2024 Social alcohol use Social alcohol us e [facility] [address] [facility] Other Comment on above: Quit Smoking 1999 - smoked 1 PPD; Start: 02-09-2024 Sex Assigned At N [facility] [address] Other Start: 03-07-2019 End: 12-14-2023 Tobacco smoking status NHIS Ex-smoker (finding) [facility] Start: 1940 Sex Assigned At Female F [facility] History of tobacco use Current smoker [facility] Work Phone: History of tobacco use Cigarette Smoker [facility] Work Phone: Start: 02-09-2024 Tobacco use and exposure Smokeless tobacco non-user [facility] Work Phone: Start: 02-09-2024 Alcoholic beverage intake Current drinker of alcohol (finding) [facility] Work Phone: Start: 02-09-2024 Alcohol Comment couple times a year [facility] Work Phone: Start: 1940 Sex assigned at Not on file [facility] Work Phone: Start: 01-30-2024 End: 02-09-2024 Exposure to SARS-CoV-2 (event) Not sure [facility] Start: 07-09-2024 End: 12-24-2024 Sex Female (finding) [facility] Tobacco smoking status NHIS Tobacco smoking consumption unknown [facility] Start: 09-17-2024 Gender identity Identifies as female gender (finding) [facility] Clinical Notes 03-20-2012 to 02-27-2025 Nan AnnaNANETTE - 01/01/2025 3:00 PM Shavon ShoshanaNANETTE - 12/04/2024 11:30 AM EDTTelephone Encounter - Tammy Melgar, AUD - 09/20/2024 4:33 PM Nehemias Melgar, AUD - 09/20/2024 1:00 PM EST Note Date & Type Note Facility 02-27-2025 Note Cardiovascular Medic [facility] SUBJECTIVE Aleksandr Sanchez is a 84 y.o. female here today [...] edema, dizziness/LH, palpitations *She previous saw a hooker up at [facility]. She would like to transfer her care to [place] [facility]. Discharge summary: Hospital Course: Patient admitted for pneumonia and acute exacerbation of COPD resulting in sepsis, when I saw patient. Be having more respiratory distress than anticipated for the findings on x-ray, checked troponin and BNP, troponin was normal but BNP was elevated, patient was treated had episode of hypotension troponins were repeated and is significantly elevated resulting in acute NSTEMI from sepsis from the pneumonia, consultation to cardiology felt [...] with PCP and pulmonology and should probably follow-up with cardiology as well Update 02/27/2025: Here because [...] kg (97 lb) SpO2 92% BMI 18.94 kg/m??? Medications: Current Medications[6] Physical Exam Vitals reviewed. [...] with normal systolic function. LVEF is estimated at 55 to 60%. 2. Mildly dilated right ventricle [...] no diagnoses linked to this encounter. #Chronic diastol (more content not included)... [facility] 02-06-2025 Note Patient is a new pat ient here to establish care and to be seen from a [facility] admission. Patient states she is feeling better. Patient was discharge home on 1lpm of o2 via n/c, o2 use is 24/. Patient has CARUSO. Review of Systems Cardiovascular: Positive for dyspnea on exertion. Respiratory: Positive for shortness of breath. [facility] 02-06-2025 Note Cardiovascular Medic ine [facility] SUBJECTIVE Chief Complaint Patient presents with Hospital Follow-up Aleksandr Sanchez is a 84 y.o. female here for follow-up after her recent admission to [facility]. PMHx: SVT, COPD, HFpEF, pulmonary HTN, HLD HPI 02/06/25 She was recently admitted for acute [...] edema, dizziness/LH, palpitations *She previous saw a hooker up at [facility]. She would like to transfer her care to [place] [facility]. Discharge summary: Hospital Course: Patient admitted for pneumonia and acute exacerbation of COPD resulting in sepsis, when I saw patient. Be having more respiratory distress than anticipated for the findings on x-ray, checked troponin and BNP, troponin was normal but BNP was elevated, patient was treated had episode of hypotension troponins were repeated and is significantly elevated resulting in acute NSTEMI from sepsis from the pneumonia, consultation to cardiology felt [...] with PCP and pulmonology and should probably follow-up with cardiology as well Problem List[1] Medical History[2] Family History[3] Social History[4] Allergies[5] OBJECTIVE Visit Vitals BP 101/59 (BP Location: Left arm, Patient Position: Sitting) Pulse 75 Ht 1.524 m (5') Wt 42.6 kg (94 lb) SpO2 96% BMI 18.36 kg/m??? Smoking Status Former BSA 1.34 m??? Medications: Current Medications[6] Physical Exam Vitals reviewed. [...] with normal systolic function. LVEF is estimated at 55 to 60%. 2. Mildly dilated right ventricle with moderately reduced systolic function. 3. Moderate to severe biatrial dilatation. 4. Mild to moderate mitral regurgitation. 5. Moderate to severe tricuspid regurgitation. 6. Moderately elevated right-sided pressures. RVSP is 54 mmHg. 7. No pericardial effusion. ECHO 09/01/2023 Cardiac cath 2019: near normal coronary arteries ASSESSMENT/PLAN: Diagnoses and all orders for this visit: Pulmonary hypertension (CMS/HCC) - Transthoracic echo (TTE) limited; Future Chronic diastolic heart failure (CMS/HCC) Paroxysmal supraventricular tachycardia Benign hypertensive heart disease with heart failure (CMS/HCC) Mixed hyperlipidemia #Chronic diastolic heart failure #Pulmonary HTN -Recently admitted for acute HFpEF in the setting of also having PNA and COPD exacerbation -ECHO 01/27/25 noted preserved LVEF, RVSP 54 -Today she notes her breathing continues to improve every day since her recent discharge. -She appears compensated/euvolemic on exam. -Will continue torsemide 10mg daily. -Discussed im (more content not included)... [facility] 01-01-2025 History of Presen t illness Narrative [...] 3:43 PM EDT documented in this encounter [facility] 12-04-2024 History of Presen t illness Narrative [...] 1:00 PM EDT documented in this encounter [facility] 09-20-2024 Telephone encounter Note Blocked time for HAF in [place] at 10:00 am on 11-13-2024 [facility] 09-20-2024 Miscellaneous Notes Blocked time for HAF in [place] at 10:00 am on 11-13-2024 documented in this encounter [facility] 09-20-2024 Telephone encounter Note Called [employer] and we have a 90 day fit period before any issues arise. According to the rep, as long as these aids are dispensed before 12-18-24, all is fine. Pt will call once she returns from [place] and can be fit with the aids when she returns. This will not affect her 60 day trial. [facility] 09-20-2024 Miscellaneous Notes Called [employer] and we have a 90 day fit period before any issues arise. According to the rep, as long as these aids are dispensed before 12-18-24, all is fine. Pt will call once she returns from [place] and can be fit with the aids when she returns. This will not affect her 60 day trial. documented in this encounter [facility] 09-20-2024 History of Presen t illness Narrative History: Patient was referred for an audiological evaluation. She has benefits under her [employer] plan. Patient is currently wearing a BiCROS [...] loss, stating she was treated by Dr. Moreno in the past. Pt paid in full for hearing aid in portal. She mentioned she is traveling for [place] in 2 weeks and will be gone for 1 month. Pt will need to be scheduled for HAF when she returns, Will call [facility] to see if they can hold order. documented in this encounter [facility] 09-19-2024 Evaluation note Authored September 19, 2024 2 :01pm The above note written by Kaiden WARE acting as human recorder, note dictated by Dr. Sheldon Xie. [facility] Work Phone: 1(614) 532-721509-19-2024 Evaluation note* Author Selene [facility] Authored May 16, 2024 8:36am The above note written by Kaiden WARE acting as human recorder, note dictated by Dr. Sheldon Xie. Author Aleksandr Olivo [facility] Authored June 18, 2024 1 :06pm The above note written by CHAZ Spicer acting as human recorder, note dictated by Dr. Sheldon Xie. [facility] Work Phone: 1(237) 940-854109-19-2024 Evaluation note* Author Selene [facility] Authored May 16, 2024 7:36am The above note written by Kaiden WARE acting as human recorder, note dictated by Dr. Sheldon Xie. Author Aleksandr Olivo [facility] Authored June 18, 2024 1 2:06pm The above note written by CHAZ Spicer acting as human recorder, note dictated by Dr. Sheldon Xie. [facility] Work Phone: 1(404) 217-101707-23-2024 Evaluation note* Author Alba Person [facility] Authored March 19, 2024 2:12 pm Sooner if needed, the ER if concerns,The above note written by Alba Person LPN acting as human recorder, note dictated by Dr. Sheldon Xie [facility] Work Phone: 1(464) 792-316907-23-2024 Evaluation note* Author Alba Person [facility] Authored March 19, 2024 2:12 pm Sooner if needed, the ER if concerns,The above note written by Alba Person LPN acting as human recorder, note dictated by Dr. Sheldon Xie Author [facility] Authored May 16, 2024 8:36am The above note written by Kaiden WARE acting as human recorder, note dictated by Dr. Sheldon Xie. [facility] Work Phone: 1(629) 426-405106-14-2024 History of Present illness Narrative* Ronnie Colvin [...] each nostril once daily., Disp: , Rfl: ksknzkuuaik-fouqlfkog-gucvgcjr (TRELEGY-ELLIPTA) 100-62.5-25 mcg blister with device, Inhale [...] DAILY, Disp: 90 tablet, Rfl: 3 vit M-B-phuufj-zinc-lutein (Eye Multivit-Lutein,C-E-Cu-Zn,) 226 mg-90 mg-2 mg- 34.8 [...] By signing my name below, I, Ayleen Kuldeep YODER , Scribe attest that this documentation has been prepared [...] exam, discussion and plan. [facility]: 1(206) 258-133406-14-2024 Instructions* Patient Instructions* Roxann Zamora CMA - [...] time of your visit. [facility]: 1(526) 857-693906-03-2024 Evaluation note* Author Selene Storey [facility] Authored January 29, 2024 11:20 am The above note written by Kaiden WARE acting as human recorder, note dictated by Dr. Sheldon Xie. Author Aleksandr Olivo [facility] Authored December 14, 2023 12: 48pm The above note written by CHAZ Spicer acting as human recorder, note dictated by Dr. Sheldon Xie. [facility] Work Phone: 1(988) 174-178106-03-2024 Evaluation note* Author [facility] Authored January 29, 2024 11:20 am The above note written by Kaiden WARE acting as human recorder, note dictated by Dr. Sheldon Xie. Author Alba Person [facility] Authored March 19, 2024 2:12 pm Sooner if needed, the ER if concerns,The above note written by Alba Person LPN acting as human recorder, note dictated by Dr. Sheldon Xie [facility] Work Phone: 1(640) 965-919803-20-2024 Evaluation note* Author Aleksandr Olivo [facility] Authored November 15, 2023 12: 56pm The above note written by CHAZ Spicer acting as human recorder, note dictated by Dr.Brett Xie . [facility] Work Phone: 1(572) 671-434603-20-2024 Evaluation note* Author Aleksandr Olivo [facility] Authored November 15, 2023 12: 56pm The above note written by CHAZ Spicer acting as human recorder, note dictated by Dr.Brett Xie . Author Aleksandr Olivo [facility] Authored December 14, 2023 12: 48pm The above note written by CHAZ Spicer acting as human recorder, note dictated by Dr. Sheldon Xie. [facility] Work Phone: 1(217) 186-658003-20-2024 Evaluation note* Author Aleksandr Olivo [facility] Authored November 15, 2023 12: 56pm The above note written by CHAZ Spicer acting as human recorder, note dictated by Dr.Brett Xie . [facility] January 29, 2024 11:20 am The above note written by Kaiden WARE acting as human recorder, note dictated by Dr. Sheldon Xie. Author Aleksandr Olivo [facility] Authored December 14, 2023 12: 48pm The above note written by CHAZ Spicer acting as human recorder, note dictated by Dr. Sheldon Xie. [facility] Work Phone: 1([phone]) 564-275712-13-2023 Evaluation note* Encounter Date Diagnosis Assessment Notes Treatment Notes Treatment Clinical Notes Jul, COPD (chronic obstructive pulmonary disease) (ICD-10 - J44.9) Jul, Dyspnea (ICD-10 - R06.00) [facility] 11-07-2023 Evaluation note* Encounter Date Diagnosis Assessment Notes Treatment Notes Treatment Clinical Notes Jun, COPD (chronic obstructive pulmonary disease) (ICD-10 - J44.9) Today will be the patients fourth session of respiratory therapy at [facility]. I am in agreement the patient [...] ordered to be collected in three months, [facility] 10-03-2023 Evaluation note* Encounter Date Diagnosis [...] been under the care of Dr. Christina, Cloth Picker, for her COPD but her last visit [...] has been completed and will forward to [facility]. She is considering pulmonary rehab and [...] dose flu vaccine provided today. VIS provided [facility] 09-05-2023 Evaluation note* Encounter Date Diagnosis Assessment Notes Treatment Notes Treatment Clinical Notes Apr, RLS (restless legs syndrome) (ICD-10 - G25.81) [facility] 04-25-2023 Evaluation note* Encounter Date Diagnosis [...] treatment. Patient f/u on a PRN basis. [facility] 04-04-2023 Evaluation note* Encounter Date Diagnosis [...] use. I did recommend she consult an hardware design engineer and discuss her wishes with her family. [facility] 03-27-2023 Evaluation note* Encounter Date Diagnosis Assessment Notes Treatment Notes Treatment Clinical Notes Oct, Osteoporosis (ICD-10 - M81.0) [facility] 02-02-2023 Evaluation note* Encounter Date Diagnosis [...] effects. She is to continue as directed. [facility] 02-02-2023 Evaluation note* Encounter Date Diagnosis Assessment Notes Treatment Notes Treatment Clinical Notes Sep, Osteopenia (ICD-10 - M85.80) [facility] 01-31-2023 Evaluation note* Encounter Date Diagnosis [...] with lab results when they are completed. [facility] 01-19-2023 Evaluation note* Encounter Date Diagnosis [...] will schedule for [facility] 01-06-2023 Evaluation note* Encounter Date Diagnosis Assessment Notes Treatment Notes Treatment Clinical Notes Aug, Foot fracture, right (ICD-10 - S92.901A) [facility] 01-06-2023 Evaluation note* Encounter Date Diagnosis [...] Continue with Tylenol as needed for pain. [facility] 01-05-2023 Evaluation note* Encounter Date Diagnosis [...] her and more than likely refer to resin mixer. It appears to have possible fracture. She [...] patient and will review at next visit [facility] 12-08-2022 Evaluation note* Encounter Date Diagnosis Assessment Notes Treatment Notes Treatment Clinical Notes Jul, Restless legs syndrome (ICD-10 - G25.81) [facility] 12-02-2022 Evaluation note* Encounter Date Diagnosis Assessment Notes Treatment Notes Treatment Clinical Notes Jul, Acute cough (ICD-10 - R05.1) [facility] 10-27-2022 Evaluation note* Encounter Date Diagnosis [...] started the new inhalers ordered from the glass lined tank repairer, she has noticed worsened vision and she is concerned this may be causing her pressures to be elevated. She is scheduled to see eye doctor next month. Patient encouraged to contact glass lined tank repairer to advise of the visual changes and see if the inhaler needs to be changed. She is also contacting the eye doctor May, COPD (chronic obstructive pulmonary disease) (ICD-10 - J44.9) Patient advised to contact Dr. Yonis pruitt: the visual changes that she feels is associated with the new inhalers. This may need to be changed. I may need to put her back on the Trelegy if needed but she is to call glass lined tank repairer first. Voiced understanding [facility] 10-06-2022 Evaluation note* Encounter Date Diagnosis Assessment Notes Treatment Notes Treatment Clinical Notes May, Weight loss (ICD-10 - R63.4) May, Abdominal pain, unspecified abdominal location (ICD-10 - R10.9) [facility] 09-27-2022 Evaluation note* Encounter Date Diagnosis [...] J44.9) Patient is following with Dr. Christina, Cloth Picker, for her COPD. She does have some [...] Apr, Needs flu shot (ICD-10 - Z23) [facility] 09-19-2022 Evaluation note* Encounter Date Diagnosis Assessment Notes Treatment Notes Treatment Clinical Notes Apr, Restless legs syndrome (ICD-10 - G25.81) [facility] 07-26-2022 Evaluation note* Encounter Date Diagnosis [...] started on a diuretic. Patient noted from hooker up office that her oxygen level did drop significantly during ambulation and it was felt by the hooker up that perhaps oxygen is needed and a pulmonary consult is warranted. I would like to refer patient to Dr. Christina for consultation. Patient is in agreement. Referral initiated. Feb, Edema, unspecified type (ICD-10 - R60.9) Patient was recently evaluated by Dr. Colvin, Facility Service Manager, for the dyspnea that patient had been [...] - R06.09) Referral initiated to Dr. Christina, Cloth Picker [facility] 06-15-2022 Evaluation note* Encounter Date Diagnosis Assessment Notes Treatment Notes Treatment Clinical Notes Jan, Restless legs syndrome (ICD-10 - G25.81) [facility] 05-25-2022 Evaluation note* Encounter Date Diagnosis Assessment Notes Treatment Notes Treatment Clinical Notes December, COPD (chronic obstructive pulmonary disease) (ICD-10 - J44.9) [facility] 04-26-2022 Evaluation note* Encounter Date Diagnosis [...] assistance getting a new machine or refills. [facility] 04-07-2022 Evaluation note* Encounter Date Diagnosis [...] We will continue to monitor. Medication e-scribed. [facility] 03-30-2022 Evaluation note* Encounter Date Diagnosis [...] XR for patient to have done today. [facility] 02-23-2022 Evaluation note* Encounter Date Diagnosis Assessment Notes Treatment Notes Treatment Clinical Notes Sep, Osteoporosis (ICD-10 - M81.0) [facility] 02-22-2022 Evaluation note* Encounter Date Diagnosis Assessment Notes Treatment Notes Treatment Clinical Notes Sep, Restless legs syndrome (ICD-10 - G25.81) [facility] 02-10-2022 Evaluation note* Encounter Date Diagnosis Assessment Notes Treatment Notes Treatment Clinical Notes Sep, Osteoporosis (ICD-10 - M81.0) [facility] 10-14-2021 Evaluation note* Encounter Date Diagnosis [...] see her as needed in the future. [facility] Other 07-24-2012 History general Narrative - Reported* Type Description Date Medical History lipid panel- ehk-ooc-S2-TSH-hemo globin A1c done 03-20-12 Medical History 05/14/12 CT of the abdomen and p eileen [place] Medical History DEXA scan done 04/03/13, 11/2018 Medical History Colonoscopy done 2006 Medical History Mammogram done in 2007 Medical History 08/06/13 Labs Medical History 06/07/11-pneumonia vaccine at [facility] Medical History 08/08/13, 08/24/15 WNL-mammogram at [facility] [place] [place] Medical History 09/15/15 Echocardiogram done at [facility] Medical History 01/2016- skin cancer removed fro m left bottom eye lid Medical History 09/12/16 mammogram Medical History sacral fracture Medical History hyperlipidemia Medical History HTN Medical History ischemic colitis Medical History 03/2021 community outreach vascu lar studies Medical History 03/2021 DEXA Surgical History appendectomy Surgical History hysterectomy Surgical History 2 ear surgeries Hospitalization History see above [facility] Other Evaluation noteNo [facility] Other evaluation noteNort [employer] Other Evaluation noteN[facility] [employer] Other Evaluation noteNo assessment information available [facility] Work Phone: Evaluation note* Diagnosis Onset Date Resolution Status Apnea, sleep acute COPD (chronic obstructive pulmonary disease) acute [facility] Work Phone: Evaluation note* Author Aleksandr Olivo [facility] Authored November 15, 2023 12: 56pm The above note written by CHAZ Spicer acting as human recorder, note dictated by Dr.Brett Xie . [facility] Work Phone: Evaluation note* Diagnosis Benign essential hypertension- Primary Essential hypertension, benign Paroxysmal supraventricular tachycardia (CMS-HCC) Paroxysmal supraventricular tachycardia Mixed hyperlipidemia Former cigarette smoker Personal history of tobacco use, presenting hazards to health documented in this encounter [facility] Work Phone: Evaluation note* Author Selnee Storey [facility] Authored September 19, 2024 1 :01pm The above note written by Kaiden WARE acting as human recorder, note dictated by Dr. Sheldon Xie. [facility] Work Phone: Evaluation note* Diagnosis Mixed conductive and sensorineural hearing loss of right ear with restricted hearing of left ear- Primary documented in this encounter [facility] HealthcareEvaluation note* Diagnosis Mixed conductive and sensorineural hearing loss of right ear with restricted hearing of left ear- Primary documented in this encounter [facility] HealthcareEvaluation note* Diagnosis Onset Date Resolution Status Admit Date Hyperlipidemia acute November 1:46pm Hypertension acute December 24, 2024 1:46pm Weight loss acute December 24 025 1:46pm [facility] Work Phone: History general Narrative - ReportedNoPanoratio [employer] Other History general Narrative - ReportedNoPanoratio [employer] Other Reason for referral (narrative)* Consultation (Routine) - Authorized Specialty Diagnoses / Procedures Referred By Contac t Referred To Contact Cardiology Diagnoses Paroxysmal supraventricular tachycardia ([facility] Procedures Follow Up In Cardiology Ronnie Colvin MD [address] [place] [id number] Celestina Khalil MD [address] [place] [address], [address] [address] Referral ID Status Reason Start Date Expiration Date V isits Requested Visits Authorized [id number] Authorized 02/09/2024 02/08/2025 1 1 [facility] Work Phone: Family History No Family History [...] obstru ctive pulmonary disease) (J44.9) Referral Organization [facility] [place] Referring Provider First Name Sheldon Referring Provider Last Name Anne-Marie Referring Provider Specialty Family Prac nino Referred Organization [facility] Pulmonary Dise ase Referred Provider Dre Looney Referred Address [address],[place],[address] Referred Provider Specialty Pulmonary Di mohsen Referral Priority Routine Referral Appointment Date 2023-10-30 General Notes Gabrielle Valero M 023 03:15:11 PM >Received today and sent P2P. Patient has been scheduled Reason consult and treat [place] [facility] Diagnosis 1 Restless legs syndro me (G25.81) Diagnosis 2 Foot fracture, right (S92.901A) Referral Organization [facility] [place] Referring Provider First Name Sheldon Referring Provider Last Name Anne-Marie Referring Provider Specialty Family Prac nino Referred Provider Specialty Vascular Patricio rosa Referral Priority Routine Reason 09/02/22 @ 10:00am consult and treat Diagnosis 1 Foot fracture, right (S92.901A) Referral Organization [facility] [place] Referring Provider First Name Sheldon Referring Provider Last Name Anne-Marie Referring Provider Specialty Family Prac nino Referred Organization [facility] Referred Provider Sammie Duran Referred Address [address] [place]dish [place],[address] Referred Provider Specialty Nurse Practi tioner Referral Priority Routine Referral Appointment Date 2022-09-02 General Notes Pallavi Olivo 09:15:42 AM >pt will be going [facility] pt will see a [employer] CLAIMS SUPERVISOR today 09/02/22 and request a full referral. I couldn't find the [facility] facility to send it myself Gabrielle Valero 09/02/2022 10:38:16 AM >Not a problem. It fixed and sent this P2P Gabrielle Valero 09/05/2022 10:47:49 AM >Office notes not locked yet Gabrielle Valero 09/06/2022 10:03:07 AM >Telephone encounter was already sent by Sammie Duran Reason Patient is needing p ulmonary consult and treatment. Please call patient with appt date and time. Thanks. Diagnosis 1 COPD (chronic obstru ctive pulmonary disease) (J44.9) Referral Organization [facility] Aayush Duran Referring Provider First Name Sheldon Referring Provider Last Name Anne-Marie Referring Provider Specialty Family [facility] nino Referred Organization Unknown Facility Referred Provider [...] CREATED AUTHOR AUTHOR'S ORGANIZ ATION 01/11/2023 [facility] DATE CREATED AUTHOR AUTHOR'S ORGANIZ ATION 10/01/2023 [facility] DATE CREATED AUTHOR AUTHOR'S ORGANIZ ATION 11/16/2024 [facility] DATE CREATED AUTHOR AUTHOR'S ORGANIZ ATION 01/04/2025 [facility] EPIC DATE CREATED AUTHOR AUTHOR'S ORGANIZ ATION 02/06/2025 [facility] DATE CREATED AUTHOR AUTHOR'S ORGANIZ ATION 03/06/2025 [facility] REASON FOR VISIT (unrecogniz ed section [...] 2023 Team Status: Inactive Member Role Status Dates Sheldon Xie DO Primary Care Provide r, Attending Provider Active Start: October 10, 2023 End: October 10, 2023 Team Status: Inactive Member Role Status Dates [...] Attending Provider Active Start: November 16, 2023 Supervisor Electric Relationship Specialty Start Date End Date Sheldon Xei DO PCP - General 08/28/99 Team Status: [...] June 18, 2024 End: June 18, 2024 Supervisor Electric Relationship Specialty Start Date End Date Sheldon Xie DO [address] [place] [address] PCP - General Family Medicine 11/13/24 Team Status: Inactive Member Role Status Dates Sheldon Xie DO Primary Care Provide r, Attending Provider Active Start: December 24, 2024 End: December 24, 2024 Supervisor Electric Relationship Specialty Start Date End Date Sheldon Xie DO [address] [place] [address] PCP - General Family Medicine 12/26/24 Goals [...] BE BASED ON THE PRIMARY CLINICAL RECORDS. [facility] [employer] [facility]. provides no warranty or guarantee of the accuracy or completeness of information in this document.
== END 2025-03-13 10:26 | disposition home or self-care (01) ==
LOC: CARD 10:25
PROVIDERS: PCP Family Medicine; Visit Provider Nurse Practitioner Family
DX: I27.20 Pulmonary hypertension, unspecified (principal)
CPT/HCPCS: 93308

== ENCOUNTER 2025-03-31 07:38 | Outpatient (OUT) | payer MEDICARE, SELFPAY ==
--- OUTSIDE RECORDS SUMMARY | 2025-03-20 14:00 | XMS_ITS | Encounter Summary ---
Author Organization [facility] Address [address] [facility] [place] [address] Care Team Providers Care Interviewing Clerk Name Role Phone Geo Montejo DO Primary Care Provider [phone] Reason for Visit * Reason Comments Congestive Heart Failure Pulmonary Hypertension Encounter Details Date Type Department Care Team (Late st Contact Info) Description 03/20/2025 2:00 PM EDT Office Visit [facility] [address] [place] [address] Jennifer Marroquin, WILD LIFE MANAGER [address] [facility] [place] [address] Acute on chronic diastolic heart failure (CMS/HCC) (Primary Dx); Pulmonary hypertension (CMS/HCC); Atrial tachycardia Social History Tobacco Use Types Packs/Day Years [...] Sign Reading Time Taken Comments Blood Pressure 147/80 03/20/2025 2:31 PM EDT Pulse 77 03/20/2025 2:31 PM EDT Temperature - - Respiratory Rate - - Oxygen Saturation 97% 03/20/2025 2:31 PM EDT 1lpm of o2 via n/c Inhaled Oxygen Concentration - - Weight - - Height 152.4 cm (5') 03/20/2025 2:31 PM EDT Body Mass Index - - documented in this encounter Patient Instructions * Patient Instructions* Jennifer Marroquin CNP - 03/20/2025 2:00 PM EDT *Increase torsemide to 20mg daily x1 week then reduce to alternating days of 10mg and 20mg daily. *Have follow-up labs 03/31/2025 *We will increase metoprolol to try to help with your fluctuating heart rate, will increase this to50mg twice daily documented in this encounter Progress Notes * Jennifer Marroquin CNP - 03/20/2025 2:00 PM EDT Images from the original note were not included. [facility] SUBJECTIVE Chief Complaint Patient presents with Congestive Heart Failure Pulmonary Hypertension Ebony Hobson is a 84 y.o. female here for follow-up after her recent admission to [facility]. PMHx: SVT, COPD, HFpEF, pulmonary HTN, HLD [...] edema, dizziness/LH, palpitations *She previous saw a communication studies professor at [facility]. She would like to transfer her care to [place] [facility]. Discharge summary: Hospital Course: Patient admitted [...] syncope. No orthopnea, no paroxysmal current dyspnea. UPDATE 03/20/2025: After her last visit, we placed a holter monitor and had her get an ECHO. She denies any changes since last seen. Her breathing has been doing better. She still has some CARUSO but she is able to get out and do more.She remains on supplemental O2. Denies c/o CP, orthopnea, PND, LE edema, dizziness/LH, palpitations, syncope. Problem List[1] Medical History[2] Family History[3] Social History[4] Allergies[5] OBJECTIVE Visit Vitals BP 147/80 (BP Location: Right arm, Patient Position: Sitting) Pulse 77 Ht 1.524 m (5') SpO2 97% Comment: 1lpm of o2 via n/c BMI 18.94 kg/m?? Smoking Status Former BSA 1.36 m?? Medications: Current Outpatient Medications: albuterol 2.5 mg /3 mL (0.083 %) nebulizer solution, Take 2.5 mg by nebulization three times daily., Disp: , Rfl: aspirin 81 mg EC tablet, Take 81 mg by mouth in the morning., Disp: , Rfl: clonazePAM (KlonoPIN) 0.5 mg tablet, Take 0.5 mg by mouth in the morning., Disp: , Rfl: fluticasone (Flonase) 50 mcg/actuation nasal spray, Administer 2 sprays into each nostril two timesdaily., Disp: , Rfl: lisinopril 2.5 mg tablet, Take 2.5 mg by mouth in the morning., Disp: , Rfl: pravastatin (Pravachol) 40 mg tablet, Take 40 mg by mouth at bedtime., Disp: , Rfl: metoprolol tartrate (Lopressor) 50 mg tablet, Take 1 tablet (50 mg) by mouth two times daily., Disp: 180 tablet, Rfl: 3 potassium chloride CR (Klor-Con) 10 mEq ER tablet, Take 20 mEq by mouth in the morning. (Patient not taking: Reported on 03/20/2025), Disp: , Rfl: predniSONE (Deltasone) 10 mg tablet, Take 10 mg by mouth in the morning. (Patient not taking: Reported on 03/20/2025), Disp: , Rfl: torsemide (Demadex) 10 mg tablet, Take 2 tablets (20 mg) by mouth in the morning. Increase torsemide to 20mg daily x7 days then alternate days of 10mg and 20mg daily, Disp: 180 tablet, Rfl: 3 Physical Exam Vitals reviewed. Constitutional: Appearance: Normal [...] CHOL , TRIG , HDL , LDLDIRECT 02/27/2025 Cr 0.77, BUN 25, K 3.7, Na 148, eGFR >60, AST 22, ALT 23 WBC 11.5, hgb 12.4, plt 389 Testing/Procedures: ECHO 03/13/2025 Holter - 3 day - 02/27/2025 Multiple episodes of non-sustained AT Long RP tachy noted could be sinus tach vs AT Rare PACs (2% burden) and rare PVCs (<1%burden) No AF, VT, pause or AV block ECHO 01/27/2025 CONCLUSION: 1. Mild concentric left [...] Diagnoses and all orders for this visit: Acute on chronic diastolic heart failure (CMS/HCC) - Basic metabolic panel; Future - B-type natriuretic peptide; Future - torsemide (Demadex) 10 mg tablet; Take 2 tablets (20 mg) by mouth in the morning. Increase torsemide to 20mg daily x7 days then alternate days of 10mg and 20mg daily Pulmonary hypertension (CMS/HCC) - torsemide (Demadex) 10 mg tablet; Take 2 tablets (20 mg) by mouth in the morning. Increase torsemide to 20mg daily x7 days then alternate days of 10mg and 20mg daily Atrial tachycardia - metoprolol tartrate (Lopressor) 50 mg tablet; Take 1 tablet (50 mg) by mouth two times daily. #Chronic diastolic heart failure #Pulmonary HTN -Recently admitted for acute HFpEF in the setting of also having PNA and COPD exacerbation -ECHO 01/27/25 noted preserved LVEF, RVSP 54 -ECHO 03/13/2025: EF 55%, RVSP 54, evidence of fluid overload -Today she notes her breathing continues to improve every day since her recent discharge. -Given her evidence of fluid overload on her recent ECHO, will increase her torsemide to 20mg dailyx1 week then reduce to alternating days of 20mg and 10mg given her frailty and wanting to avoid dehydrating her. -Follow-up labs on 03/31/25 -Discussed importance of 2L daily fluid allowance, low Na+ diet, and continuing daily weights. She states understanding. -She is currently on supplemental O2. Recommended follow-up with pulmonary or Dr. Montejo for management of O2. #HTN -Controlled for her age, continue lopressor and lisinopril #Hx SVT -Noted to have frequent PACs during recent admission likely pulmonary issues contributing to this. -Episodes of long RP tachycardia (sinus tach vs AT) seen on recent holter. -Will increase metoprolol to 50mg BID. -Follow-up with EP, Dr. Knox, to review if anything further needs to be implemented. #HLD -On pravastatin Follow up in about 1 month (around 04/20/2025). Jennifer Marroquin CNP [facility] [1] Patient Active Problem List Diagnosis Benign essential hypertension Chest pain COPD (chronic obstructive pulmonary disease) ([facility]) Dyspnea Edema Fainting Former cigarette smoker Hyperlipidemia Paroxysmal supraventricular tachycardia [2] Past Medical History: Diagnosis Date CHF (congestive heart failure) ([facility]) COPD (chronic obstructive pulmonary disease) ([facility]) Hyperlipidemia Hypertension [3] No family history on file. [4] Social History Tobacco Use Smoking status: Former Types: Cigarettes Passive exposure: Past Smokeless tobacco: Never Substance Use Topics Alcohol use: Yes Comment: occasional Drug use: Never [5] Allergies Allergen Reactions Codeine Nausea Only * Adenike Phillips MA - 03/20/2025 2:00 PM EDT Patient is here today for results of holter monitor and ECHO. Patient states she feels pretty good.Patient states she is able to out and do things. Patient state when the air qualify is bad she has to limit her time outside due to it making her more SOB. Patient denies leg swelling, chest pain. Patient would like to know if she needs to continue a log of her blood pressure, and weight. Review of Systems Cardiovascular: Positive for dyspnea on exertion. Respiratory: Positive for shortness of breath. documented in this encounter Plan of Treatment Upcoming Encounters Date Type Department Care Team (Late st Contact Info) Description 04/08/2025 2:15 PM EDT Office Visit [facility] [address] [facility] [place] [address] Bautista Knox MD [address] [place] [address] 06/05/2025 10:20 AM EDT Office Visit [facility] [address] [place] [facility] [place] [address] Jennifer Marroquin CNP [address] [place] [address] Scheduled Orders Name Type Priority Associated Diagnoses Orde r Schedule Basic metabolic panel Lab Routine Acute on chronic diastolic heart failure (CMS/HCC) Expected: 03/20/2025 (Approximate), Expires: 03/20/2026 B-type natriuretic peptide Lab Routine Acute on chronic diastolic heart failure (CMS/HCC) Expected: 03/20/2025 (Approximate), Expires: 03/20/2026 documented as of this encounter Visit Diagnoses Diagnosis Acute on chronic diastolic heart failure (CMS/HCC)- Primary Acute on chronic diastolic heart failure Pulmonary hypertension (CMS/HCC) Other chronic pulmonary heart diseases Atrial tachycardia Other specified cardiac dysrhythmias documented in this encounter Care Teams Interviewing Clerk Relationship Specialty Start Date End Date Geo Montejo [place] [address] PCP - General Family Medicine 02/05/25 documented as of this encounter
--- OUTSIDE RECORDS SUMMARY | 2025-03-31 07:43 | XMS_ITS | Encounter Summary ---
Author Organization [facility] Address [address] [place] [address] Phone Care Team Providers Care Etl Consultant Name Role Phone Geo Montejo DO Primary Care Provider [phone] Encounter Details Date Type Department Care Team ([facility] Contact Info) Description 02/04/2022 Orders Only [facility] [address] [place] [address] Conversion, Onbase Social History Tobacco Use Types [...] on filedocumented in this encounter Care Teams Etl Consultant Relationship Specialty Start Date End Date Geo Montejo DO PCP - General 08/28/99 documented as of this encounter
--- OUTSIDE RECORDS SUMMARY | 2025-03-31 07:43 | XMS_ITS | Encounter Summary ---
Author Organization [facility] Address [address] [place] [address] Phone Care Team Providers Care Poultry Hatchery Manager Name Role Phone Geo Montejo DO Primary Care Provider [phone] Encounter Details Date Type Department Care Team (Late st Contact Info) Description 01/09/2024 Scanned Document [facility] [address] [place] [address] Scanning, Generic Provider Social History Tobacco Use [...] on filedocumented in this encounter Care Teams Poultry Hatchery Manager Relationship Specialty Start Date End Date Geo Montejo DO PCP - General 08/28/99 documented as of this encounter
--- OUTSIDE RECORDS SUMMARY | 2025-03-31 07:43 | XMS_ITS | Encounter Summary ---
Author Organization [facility] Address [address] [place] [address] Phone Care Team Providers Care Merchandise Flow Associate Name Role Phone Geo Montejo DO Primary Care Provider [phone] Encounter Details Date Type Department Care Team (Late st Contact Info) Description 12/20/2023 Scanned Document [facility] [address] [place] [address] Scanning, Generic Provider Social History Tobacco Use [...] on filedocumented in this encounter Care Teams Merchandise Flow Associate Relationship Specialty Start Date End Date Geo Montejo DO PCP - General 08/28/99 documented as of this encounter
--- OUTSIDE RECORDS SUMMARY | 2025-03-31 07:43 | XMS_ITS | Encounter Summary ---
Author Organization [facility] Address [address] [place] [address] Care Team Providers Care Delivery Mgr Name Role Phone Geo Montejo DO Primary Care Provider [phone] Encounter Details Date Type Department Care Team (Late st Contact Info) Description 09/20/2024 Abstract [facility] [address] [place] [address] Adenike Koch, [facility] [address] [place] [address] Social History Tobacco Use Types Packs/Day Years [...] on filedocumented in this encounter Care Teams Delivery Mgr Relationship Specialty Start Date End Date Geo Montejo DO [address] [place] [address] PCP - General Family Medicine 12/26/24 documented as of this encounter
--- OUTSIDE RECORDS SUMMARY | 2025-03-31 07:43 | XMS_ITS | Encounter Summary ---
Author Organization [facility] Address [address] [place] [address] Phone Care Team Providers Care Offset Press Operator Apprentice Name Role Phone Geo Montejo DO Primary Care Provider [phone] Encounter Details Date Type Department Care Team ([facility] Contact Info) Description 09/01/2023 Scanned Document [facility] [address] [place] [address] Scanning, Generic Provider Social History Tobacco Use [...] on filedocumented in this encounter Care Teams Offset Press Operator Apprentice Relationship Specialty Start Date End Date Geo Montejo DO PCP - General 08/28/99 documented as of this encounter
--- OUTSIDE RECORDS SUMMARY | 2025-03-31 07:43 | XMS_ITS | Encounter Summary ---
Author Organization [facility] Address [address] [place] [address] Phone Care Team Providers Care Public Space Attendant Name Role Phone Geo Montejo DO Primary Care Provider [phone] Encounter Details Date Type Department Care Team ([facility] Contact Info) Description 11/24/2021 Orders Only [facility] [address] [place] [address] Conversion, Onbase Social History Tobacco Use Types [...] on filedocumented in this encounter Care Teams Public Space Attendant Relationship Specialty Start Date End Date Geo Montejo DO PCP - General 08/28/99 documented as of this encounter
--- OUTSIDE RECORDS SUMMARY | 2025-03-31 07:43 | XMS_ITS | Clinical Summary ---
Author Organization [facility] Address [address] [place] [address] Care Team Providers Care Equipment Operating Engineer Name Role Phone LongGeo dubon Yakov GASPAR Primary Care Provider [phone] Encounters Date Type Department Care Team Description 01/01/2025 3:00 PM EDT Office Visit [facility] [address] [place] [id number] Mixed conductive and sensorineural hearing loss of [...] exists Insurance [employer] MEDICARE Care Teams Equipment Operating Engineer Relationship Specialty Start Date End Date Geo Montejo DO [address] [place] [address] PCP - General Family Medicine 12/26/24
--- OUTSIDE RECORDS SUMMARY | 2025-03-31 07:43 | XMS_ITS | Clinical Summary ---
Author Organization [facility] Address [address] [place] [address] Phone Care Team Providers Care Steel Detailer Name Role Phone Geo Montejo DO Primary Care Provider [phone] Allergies Active Allergy Reactions Criticality Noted Date [...] mEq) by mouth once daily. Active vit C-S-hmcmbl-zinc-lut ein (Eye Multivit-Lutein,C-E -Cu-Zn,) 226 mg-90 mg-2 [...] Type Department Care Team Description 02/04/2025 Refill [facility] [address] [facility] [address] [place] [address] Celestina Khalil MD Edema, unspecified type 01/22/2025 Scanned Document [address] [place] [place] [address] Scanning, Generic Provider from Last 3 Months Social History Tobacco [...] Health Maintenance Due Date Last Done Comments Creatinine Level 1941 Lipid Panel 1941 Medicare Annual Wellness Visit (AWV) 1941 Potassium Level 1941 Diabetes Screening 1959 DTaP/Tdap/Td Vaccines (1 - Tdap) 1963 Bone Density Scan 2006 RSV High Risk: (Elderly (60+) or Population) [...] Most Recently Relevant to Health Maintenance Insurance [facility] [employer] MEDICARE [facility] [employer] MEDICARE Care Teams Steel Detailer Relationship Specialty Start Date End Date Geo Montejo DO PCP - General 08/28/99
--- OUTSIDE RECORDS SUMMARY | 2025-03-31 07:43 | XMS_ITS | Clinical Summary ---
Author Organization [facility] Address [address] [place] [address] Care Team Providers Care Product Handler Name Role Phone Geo Montejo DO Primary Care Provider [phone] Allergies Active Allergy Reactions Criticality Noted Date Comments Codeine Nausea Only Medium 08/31/2023 Medications albuterol 2.5 mg /3 mL (0.083 %) nebulizer solution Take 2.5 mg by nebulization three times daily. Active aspirin 81 mg EC tablet Take 81 mg by mouth in the morning. Active clonazePAM (KlonoPIN) 0.5 mg tablet Take 0.5 mg by mouth in the morning. Active fluticasone (Flonase) 50 mcg/actuation nasal spray Administer 2 sprays into each nostril two times daily. Active lisinopril 2.5 mg tablet Take 2.5 mg by mouth in the morning. Active potassium chloride CR (Klor-Con) 10 mEq ER tablet Take 20 mEq by mouth in the morning. Active pravastatin (Pravachol) 40 mg tablet Take 40 mg by mouth at bedtime. 025 2025 Active predniSONE (Deltasone) 10 mg tablet Take 10 mg by mouth in the morning. Active metoprolol tartrate (Lopressor) 50 mg tabletIndicatio ns:Atrial tachycardia Take 1 tablet (50 mg) by mouth two times daily. 180 tablet 3 025 2025 Active torsemide (Demadex) 10 mg tabletIndicatio ns:Acute on chronic diastolic heart failure (CMS/HCC),Pulmo nary hypertension (CMS/HCC) Take 2 tablets (20 mg) by mouth in the morning. Increase torsemide to 20mg daily x7 days then alternate days of 10mg and 20mg daily 180 tablet 3 025 Active citalopram (CeleXA) 10 mg tablet Take 1 tablet by mouth in the morning. 024 2024 Discontinued(M ed List Cleanup) torsemide (Demadex) 10 mg tablet Take 10 mg by mouth in the morning. 024 2024 Discontinued(R eorder) fluticasone-ume clidin-vilanter 100-62.5-25 mcg blister with device Inhale 1 puff in the morning. 2024 Discontinued metoprolol tartrate (Lopressor) 25 mg tablet Take 25 mg by mouth two times daily. 2024 Discontinued(R eorder) amoxicillin (Amoxil) 875 mg tablet Take 875 mg by mouth two times daily. 2024 Discontinued(M ed List Cleanup) Active Problems Problem Noted Date Diagnosed Date Former cigarette smoker 02/09/2024 Benign essential hypertension 08/31/2023 Chest pain 08/31/2023 COPD (chronic obstructive pulmonary disease) 11/2023 Dyspnea 08/31/2023 Edema 08/31/2023 Fainting 08/31/2023 Hyperlipidemia 08/31/2023 Paroxysmal supraventricular tachycardia 08/31/19 24 Encounters Date Type Department Care Team Description 03/20/2025 2:00 PM EDT Office Visit [facility] [address] [place] [facility] [place] [address] Jennifer Marroquin CNP Acute on chronic diastolic heart failure (CMS/HCC) (Primary Dx); Pulmonary hypertension (CMS/HCC); Atrial tachycardia 03/18/2025 Orders Only [facility] [address] [place] [facility] [place] [address] Jerardo Huang MD 02/27/2025 2:30 PM EDT Office Visit [facility] [address] [place] [facility] [place] [address] Iam Jiménez MD Paroxysmal supraventricular tachycardia (Primary Dx); Chronic diastolic heart failure (CMS/HCC); Pulmonary hypertension (CMS/HCC); Mixed hyperlipidemia; Tachycardia; PVC (premature ventricular contraction) 02/27/2025 Orders Only [facility] [address] [place] [address] ProviderJerardo MD 02/06/2025 3:00 PM EDT Office Visit [facility] [address] [place] [address] Jennifer Marroquin CNP Pulmonary hypertension (CMS/HCC) (Primary Dx); Chronic diastolic heart failure (CMS/HCC); Paroxysmal supraventricular tachycardia; Benign hypertensive heart disease with heart failure (CMS/HCC); Mixed hyperlipidemia 01/31/[address] [place] [address] Geo Montejo DO from Last 3 Months [...] n/c Inhaled Oxygen Concentration - - Weight 44 kg (97 lb) 02/27/2025 2:44 PM EDT Height 152.4 cm (5') 03/20/2025 2:31 PM EDT Body Mass Index 18.94 02/27/2025 2:44 PM EDT Plan of Treatment Upcoming Encounters Date Type Department Care Team (Late st Contact Info) Description 04/08/2025 2:15 PM EDT Office Visit [facility] [address] [place] [facility] [place] [address] Bautista Knox MD [address] [place] [address] 06/05/2025 10:20 AM EDT Office Visit [facility] [address] [place] [facility] [place] [address] Jennifer Marroquin CNP [address] [place] [address] Health Maintenance Due Date Last [...] Procedure Name Priority Date/Time Associated Diagnosis Comments HOLTER MONITOR JAIL Routine 02/27/2025 5:05 PM EDT ECG 12-LEAD Routine 02/27/2025 3:46 PM EDT from Last 3 Months Results * Holter monitor - superintendent terminal (02/27/2025 5:05 PM EDT) Anatomical Region Laterality Modality Other Historical Provider [facility] PROCE DURES Final Result * ECG 12 lead (02/27/2025 3:46 PM EDT) us Historical Provider MD ECG ORDERABLES Final Res ult from Last 3 Months Insurance [employer] MED[employer] Care Teams Product Handler Relationship Specialty Start Date End Date Geo Montejo DO [facility] [place] [place] [address] PCP - General Family Medicine 02/05/25
--- OUTSIDE RECORDS SUMMARY | 2025-03-31 07:43 | XMS_ITS | Encounter Summary ---
Author Organization [facility] Address [address] [place] [address] Care Team Providers Care Technology Project Manager Name Role Phone Geo Montejo DO Primary Care Provider [phone] Encounter Details Date Type Department Care Team (Late st Contact Info) Description 03/18/2025 Orders Only [facility] [address] [place] [address] Provider, MD Jerardo [address] [place] [address] Social History Tobacco Use Types Packs/Day [...] Department Care Team (Late Contact Info) Description 04/08/2025 2:15 PM EDT Office Visit [facility] [address] [place] [address] Bautista Knox MD [address] [place] [address] 06/05/2025 10:20 AM EDT Office Visit [facility] [address] [place] [address] Jennifer Marroquin CNP [address] [place] [address] documented as of this encounter Procedures Procedure Name Priority Date/Time Associated Diagnosis Comments HOLTER MONITOR MANAGER [employer] Routine 02/27/2025 5:05 PM EDT documented in this encounter Results * Holter monitor - custodial (02/27/2025 5:05 PM EDT) Anatomical Region Laterality Modality Other Historical Provider [facility] [address] Final Result documented in this encounter Visit Diagnoses Not on filedocumented in this encounter Care Teams Technology Project Manager Relationship Specialty Start Date End Date Geo Montejo DO [facility] [place] [address] PCP - General Family Medicine 02/05/25 documented as of this encounter
--- OUTSIDE RECORDS SUMMARY | 2025-03-31 07:43 | XMS_ITS | Encounter Summary ---
Author Organization [facility] Address [address] [place] [address] Phone Care Team Providers Care Home Weatherizing Worker Name Role Phone Geo Montejo DO Primary Care Provider [phone] Encounter Details Date Type Department Care Team ([facility] Contact Info) Description 01/22/2025 Scanned Document [facility] [address] [place] [address] Scanning, Generic Provider Social History Tobacco Use [...] documented as of this encounter Care Teams Home Weatherizing Worker Relationship Specialty Start Date End Date Geo Montejo DO PCP - General 08/28/99 documented as of this encounter
--- OUTSIDE RECORDS SUMMARY | 2025-03-31 07:43 | XMS_ITS | Encounter Summary ---
Author Organization [facility] Address [address] [place] [address] Phone Care Team Providers Care Audiovisual Equipment Operator Name Role Phone LongjagdishMandytt Yakov GASPAR Primary Care Provider [phone] Reason for Visit * Reason Comments Med Refill Encounter Details Date Type Department Care Team ([facility] st Contact Info) Description 02/04/2025 Refill [place] [id number] [facility] [address] [place] [id number] Celestina Khalil MD [address] [facility] [address], [facility] [address] [place] [address] Edema, unspecified type Social History [...] documented as of this encounter Care Teams Audiovisual Equipment Operator Relationship Specialty Start Date End Date Geo Montejo DO PCP - General 08/28/99 documented as of this encounter
--- OUTSIDE RECORDS SUMMARY | 2025-03-31 07:48 | XMS_ITS | CCD ---
Author Organization [facility] Care Team Providers Care Hogshead Packer Name Role Phone Unavailable Unavailable Mandy Xiett R Unavailable Alireza Olvera Unavailable Sheldon Xie Unavailable Kuns, DO Sheldon Primary Care Provider [phone] Kuns, DO Sheldon Attending Provider Kuns, DO [...] Attending Provider HIEU Duran Attending Provider [phone] HIEU Duran Referring Provider Longs, DO Sheldon Primary Care Provider Longs, DO Sheldon Attending Provider HIEU Duran Attending Provider [phone] SAMMIE DURAN Attending Unavailable EMA, SAMMIE Consulting [...] Care Provider DO Sheldon Xie Attending Provider [phone] Dre Looney Unavailable DO Sheldon Xie Primary Care Provider [phone] DO Sheldon Xie Attending Provider [phone] MD Dre Looney Attending Provider SHELDON XIE Referring Unavailable SHELDON XIE Primary Care Unavailable DO Sheldon Xie Primary Care Provider MD Dre Looney Attending Provider DO Sheldon Xie Attending Provider HIEU Duran Attending Provider [phone] DO Sheldon Xie Primary Care Provider [phone] MD Dre Looney Attending Provider [phone] Kuns, DO Sheldon Primary Care Provider Kuns, DO Sheldon Attending Provider Kuns DO, Sheldon R Primary Care Provider Unavailab le Kuns, DO Sheldon Primary Care Provider [phone] Kuns, DO Sheldon Attending Provider Kuns, DO Sheldon Primary Care Provider [phone] Kuns, DO Sheldon Attending Provider Kuns DO, Sheldon Primary Care Provider Kuns DO, Sheldon Attending Provider [phone] Unavailable Primary Care Provider Unavailabl e Kuns DO, Sheldon Primary Care Provider [phone] Kuns DO, Sheldon Attending Provider Kuns, Sheldon Primary Care Unavailable Kuns, Sheldon Attending Unavailable Kuns, Sheldon Admitting Unavailable Kuns, Sheldon Primary Care Unavailable Aure, Dre Ortiz Admitting Unavaila ble Aure, Dre Ortiz Attending [...] Kuns DO, Sheldon R Primary Care Provider TAMMY MELGAR Attending Unavailable RONNIE AMIN Attending Unavailable KUNS, SHELDON R Primary Care Unavailable Kuns DO, Sheldon Primary Care Provider Kuns DO, Sheldon Attending Provider [phone] Ranjit Peralta MD Attending Provider Caleb Hernandez MD Attending Provider [phone] Iam Jiménez Attending Provider ARTEM DEL RIO Attending Unavailable IAM JIMÉNEZ Attending Unavailable ARTEM DEL RIO Attending Unavailable Allergies Allergy Classification Reported Allergen(s) Allergy Type Date of Onset Reaction(s) Facility Botulinum Toxin Type A (1 source) Botulinum Toxin Type A Drug Allergy 4 dysphagia [facility] Opioid Agonists (1 source) Codeine Drug Allergy 4 Nausea, nauseated [facility] (20 sources) Codeine; Translations: [Codeine Derivatives] Drug Allergy 4 Nausea Only [facility] (20 sources) Botulinum Toxin Type A Drug Allergy dysphagia [facility] Other (20 sources) Codeine; Translations: [Codeine] Drug Allergy 9 Nausea, Nausea, nauseated [facility] (1 source) Botulinum Toxin Type A Drug Allergy 3 [facility] (20 sources) Botulinum Toxin Type A; Translations: [onabotulinumto xinA] Drug Allergy 3 dysphagia [facility] Medications Current Medications Medication Drug Class(es) Dates Sig (Normalized) Sig (Original) acetaminophen 325 mg oral tablet (20 sources) Start: 10-16-2023 Start: 10-16-2023 Acetaminophen (Tylenol) 325 mg tablet [...] May 16, 2024 9:33am Start: 10-16-2023 End: 01-16-2025 Start: 10-16-2023 End: 11-15-2023 take 3 mL [...] Drug Start: 07-23-2018 take 1 tablet by son th every twenty-four hours Aspirin 81 MG 1 tablet Orally Once a day Active take 1 tablet by mouth three mary es weekly Aspirin 81 MG 1 tablet Orally Three times a week Active augmented betamethasone 0.5 mg/ml topical cream (20 sources) Corticosteroid Start: 11-06-2023 Start: 11-06-2023 Betamethasone, Augmented Active 1 APPLIC [...] Agonist, beta-Adrenergic Mart Start: 12-27-2018 End: 03-07-2019 Start: 12-27-2018 End: 03-07-2019 Brimonidine-Timolol (Combiga n) 0.2-0.5 % Drops Active 1 DROPS EYE-BOTH Twice daily March 07, 2019 12:00am Start: 07-23-2018 End: 12-27-2018 Start: 07-23-2018 End: 12-27-2018 Brimonidine-Timolol (Combiga n) [...] tablet (20 sources) Vitamin D Start: 12-27-2018 Start: 12-27-2018 Calcium Carbon ate-Vitamin D3 (Calcium 500 + D) 500 mg(1,250mg) -200 unit Tablet Active 1 TAB PO Daily December 27, 2018 12:00am take 1 tablet by son th twice daily Calcium + D 600-200 MG-UNIT 1 tablet Orally Twice a day Active take 1 tablet by son th every twelve hours Calcium + D 600-200 MG-UNIT 1 tablet Orally Twice a day Active take 1 tablet by son th every twelve hours CALCIUM CARBONATE-VITAMIN D3 ORAL (1 source) take 1 tablet by mouth once daily CALCIUM CARBONATE-VITAMIN D3 ORAL Take 1 tablet by mouth once daily. Active cefdinir 300 mg oral capsule (1 source) Cephalosporin Antibacterial Start: 2021 take 1 capsule by mouth every twelve hours Cefdinir 300 MG 1 capsule Orally BID for 10 day(s) Nov, Active Centrum (20 sources) take 1 tablet by mouth once den y Centrum 1 tablet Orally once a day Active ciprofloxacin 3 mg/ml / dexamethasone 1 mg/ml otic suspension (20 sources) Corticosteroid, Quinolone Antimicrobial Start: 03-19-2024 Ciprofloxacin-Dexamethasone Active 4 DROPS EAR-RIGHT Daily at bedtime 7.5 March 19, 2024 2:24pm 4 drops to right ear QHS Start: 12-27-2018 End: 03-17-2025 Start: 12-27-2018 End: 03-19-2024 Ciprofloxacin-Dexamethasone 0.3-0.1 % [...] 1:24pm 4 drops to right ear QHS cyclobenzaprine hydrochloride 10 mg oral tablet (1 source) Muscle Relaxant Start: 03-07-2023 take 0.5 tablet by mouth once daily Cyclobenzaprine HCl 10 MG 1/2 tablet Orally Once a day for 30 days Feb, Active Eye Multivitamin/Lutein (2 sources) Eye Multivitamin/Lutein Active Fluticasone-Umeclidin- Vilanter (20 sources) Anticholinergi c, Corticosteroid , beta2-Adrenerg ic Agonist Start: 12-24-2024 Start: 12-24-2024 Fluticasone-Um eclidin-Vilanter (Trelegy Ellipta) 100-62.5-25 mcg blister with device Active 1 INH INHALATION Daily 3 December 24, 2024 3:00pm Start: 09-19-2024 End: 12-24-2024 Start: 09-19-2024 End: 12-24-2024 Bwqmveepllk-Nayxkerqu-Kcamdz er (Trelegy Ellipta) 100-62.5-25 mcg blister with [...] 19, 2024 1:01pm Start: 10-16-2023 End: 09-19-2024 Start: 10-16-2023 End: 09-19-2024 take 1 puff(s) by inhalation once daily Ljyldmgpkme-Hemrlnykw-Zdhyeins (Trelegy Ellipta) 100-62.5-25 mcg blister with device Discontinued 1 INH INHALATION Daily October 16, 2023 1:00am September 19, 2024 2:02pm FreeTextSi puff Inhalation Once a day; Note: Source Status: Taking; Refills: 3; Provider: Anne-Marie Nagy Start: 10-16-2023 End: 09-19-2024 take 1 puff(s) by inhalation once daily Tmnqdyebamk-Kqvrsqjke-Cwwchwnu (Trelegy Ellipta) 100-62.5-25 mcg blister with device Discontinued 1 INH INHALATION Daily October 16, 2023 12:00am September 19, 2024 1:02pm FreeTextSi puff Inhalation Once a day; Note: Source Status: Taking; Refills: 3; Provider: Anne-Marie Nagy Start: 10-16-2023 take 1 puff(s) by inhalation once daily Xwzvcyebumb-Qhgghacil-Xfmcjhjc (Trelegy Ellipta) 100-62.5-25 mcg blister with device Active 1 INH INHALATION Daily October 16, 2023 1:00am FreeTextSi puff Inhalation Once a day; Note: Source Status: Taking; Refills: 3; Provider: Anne-Marie Nagy Start: 10-16-2023 take 1 puff(s) by inhalation once daily Bewunityqur-Xcnbfuurq-Blttjprz (Trelegy Ellipta) 100-62.5-25 mcg blister with device [...] DO Active 12 hr guaiFENesin 600 mg ext ended release oral tablet (20 sources) Start: 03-10-2019 latanoprost 0.05 mg/ml ophth almic solution (20 sources) Prostaglandin Analog Start: 07-23-2018 Start: 07-23-2018 Latanoprost 0. 005 % drops Active 0.005 PERCENT EYE-RIGHT Daily [...] 08-Feb-2022 DO Active lisinopril 2.5 mg oral table t (20 sources) Angiotensin Converting Enzyme Inhibitor Start: 02-09-2024 End: 02-08-2025 Start: 11-06-2023 End: 03-19-2024 Start: 10-16-2023 End: 11-06-2023 Start: 01-05-2022 take 1 tablet by son th once daily Lisinopril 10 MG Oral Tablet TAKE 1 TABLET BY MOUTH DAILY Quantity: 90 Refills: 3 Ordered: 22-Nov-2022 Ronnie Amin MD Start : 05-Jan-2022 Active Start: 07-23-2018 End: 11-06-2023 take 2 tablets by mouth once daily Lisinopril 5 mg tablet Discontinued 10 MG PO Daily October 16, 2023 11:20am November 06, 2023 11:33am Start: 07-23-2018 End: 10-16-2023 take 1 tablet by mouth once daily Lisinopril 5 mg tablet Discontinued 5 MG PO Daily July 23, 2018 1:00am October 16, 2023 11:21am metoprolol tartrate 25 mg oral tablet (1 source) beta-Adrenergic Mart Start: 02-12-2025 Fsgfgjbx-Aar-Lg-Ly copen-Lutein (Centrum Silver) 0.4-300-250 mg-mcg-mcg Tablet (20 sources) Start: 12-27-2018 take 1 tablet by mouth once daily Multivit-Min- Ot-Rofulcx-Oc tein (Centrum Silver) 0.4-300-250 mg-mcg-mcg Tablet Active 1 TAB PO Daily December 26, 2018 11:00pm Start: 12-27-2018 take 1 tablet by son th once daily Rzdhaovf-Dqb-Fv-Lycopen-Lutein (Centrum Silver) 0.4-300-250 mg-mcg-mcg Tablet Active 1 [...] directed Feb, Active pravastatin sodium 40 mg ora l tablet (20 sources) HMG-CoA Reductase Inhibitor Start: 07-23-2018 Start: 07-23-2018 take 10 mg by mouth [...] sources) Loop Diuretic Start: 2 End: 4 vit Y-K-vdwgba-zinc-lute in (Eye Multivit-Lutein,C-E- Cu-Zn,) 226 mg-90 mg-2 mg-34.8 mg-5 mg capsule (1 source) vit G-I-szuhfa-zinc-lutein (Eye Multivit-Lutein,C-E-Cu- Zn,) 226 mg-90 mg-2 mg-34.8 [...] a day for 5 day(s) Jul, Active (2 sources) Start: 9 Completed/Discontinued Medications Medication Drug Class(es) Dates Sig (Normalized) Sig (Original) acetaminophen 325 mg / HYDROcodone bitartrate 5 mg oral tablet (20 sources) Opioid Agonist Start: 07-23-2018 End: 07-27-2018 Start: 07-23-2018 End: 07-27-2018 Hydrocodone-Acetaminophen (N orco) 5-325 mg tablet Discontinued 0.5 TAB PO every 6 to 8 hours as needed for pain, severe 16 4 July 23, 2018 July 26, 2018 1:00am July 27, 2018 1:02am Albuterol Sulfate (2.5 MG/ 3 ML) 2.5 MG/3ML 0.083% Nebulization Solution (8 sources) Start: 03-18-2019 Albuterol Sulf ate (2.5 MG/ 3 ML) 2.5 MG/3ML 0.083% Nebulization Solution 3ml Inhalation 4 times a day PRN Feb, Not-Taking Start: 03-18-2019 Start: 03-18-2019 Albuterol Sulf ate (2.5 MG/ 3 ML) 2.5 MG/3ML 0.083% Nebulization Solution 3ml Inhalation 4 times a day PRN Feb, Active amoxicillin 875 mg / clavulanate 125 mg oral tablet (1 source) Penicillin-class Antibacterial Start: 02-12-2025 End: 03-17-2025 azithromycin 250 mg oral tablet (10 sources) Macrolide Antimicrobial Start: 05-16-2024 End: 06-06-2024 benzonatate 100 mg oral capsule (20 sources) Non-narcotic Antitussive Start: 03-10-2019 End: 09-27-2019 Calcium (5 sources) Phosphate Binder, Calcium Calciu m 500/Vitamin D TABS Take 1 tablet daily Quantity: 0 Refills: 0 Ordered: 08-Feb-2022 DO Active carvedilol 6.25 mg oral tablet (20 sources) alpha-Adrenergic Mart, beta-Adrenergic Mart Start: 07-23-2018 End: 02-12-2025 take 1 tablet by son th twice daily at mealtime Coreg 6.25 1 tablet with food Orally Twice a day Active Centrum Silver Oral Tablet (5 sources) take 1 tablet by mouth once daily Centrum Silver Oral Tablet TAKE 1 TABLET DAILY. Quantity: 0 Refills: 0 Ordered: 08-Feb-2022 DO Active cholecalciferol 0.025 mg oral capsule (20 sources) Vitamin D Start: 11-06-2023 End: 11-15-2023 take 1 tablet by son every twenty-four hours Vitamin D 25 MCG (1000 UT) 1 tablet Orally Once a day Active citalopram 10 mg oral tablet (20 sources) Serotonin Reuptake Inhibitor Start: 11-15-2023 End: 12-24-2024 Start: 04-21-2021 take 1 tablet by son every twenty-four hours Citalopram Hydrobromide 10 MG 1 tablet Orally Once a day Mar, Active clonazePAM 0.5 mg oral table t (20 sources) Benzodiazepine Start: 07-23-2018 End: 12-18-2024 1 ml denosumab 60 mg/ml pref illed syringe (20 sources) RANK Ligand Inhibitor Start: 11-06-2023 End: 12-14-2023 Start: 09-12-2019 Prolia 60 MG/M L 60 mg Subcutaneous q 6 months Aug, Not-Taking/PRN esomeprazole 20 mg delayed release oral capsule (20 sources) Proton Pump Inhibitor Start: 12-27-2018 End: 12-27-2018 Esomeprazole Magnesium (Nexium) 20 mg Capsule,Delayed Release(Dr/Ec) Discontinued December 27, 2018 12:00am December 27, 2018 9:43am Start: 07-23-2018 End: 12-27-2018 take 1 tablet by son th [...] into each nostril Start: 10-16-2023 End: 03-19-2024 Start: 10-16-2023 End: 03-19-2024 take 1 spray(s) [...] Refills: 0 Ordered: 08-Feb-2022 DO Active Fluticasone Propion-Salmeter ol (20 sources) Corticosteroid, beta2-Adrenergic Agonist Start: 12-27-2018 End: 09-27-2019 Start: 12-27-2018 End: 09-27-2019 take 1 puff(s) [...] 27, 2019 12:07pm Start: 07-23-2018 End: 12-27-2018 Start: 07-23-2018 End: 12-27-2018 Start: 07-23-2018 End: 12-27-2018 Fluticasone Propion-Salmeter ol [...] (20 sources) Bisphosphonate Start: 03-07-2019 End: 10-17-2023 ketoconazole 20 mg/ml medica sandra shampoo (20 sources) Azole Antifungal Start: 11-06-2023 End: 12-24-2024 Start: 02-06-2019 Start: 02-06-2019 Nizoral 2% as directed applied topically twice a day Jan, Active Ketorolac (20 sources) Nonsteroidal Anti-inflammatory Drug, Cyclooxygenase Inhibitor Start: 09-06-2016 Toradol p er 15 mg Aug, 2 cc Start: 09-01-2016 Toradol per 15 mg Aug, 2 cc levoFLOXacin 500 mg oral tab let (20 sources) Quinolone Antimicrobial Start: 03-10-2019 End: 10-13-2023 loteprednol etabonate 5 mg/m l ophthalmic suspension (20 sources) Start: 07-23-2018 End: 11-15-2023 Start: 07-23-2018 End: 11-15-2023 Loteprednol Etabonate 0.5 [...] EVERY OTHER DAY Ophthalmic for 30 Active Methylprednisolone (14 sources) Corticosteroid Start: 01-29-2024 End: 03-19-2024 Start: 01-29-2024 End: 03-19-2024 Methylprednisolone (Medrol ( Finn)) 4 mg tablets,dose pack Discontinued 4 MG [...] 30 day(s) Active potassium chloride 10 meq ex tended release oral capsule (20 sources) Start: 12-04-2017 End: 02-12-2025 Start: 12-04-2017 End: 10-16-2023 take 1 capsule by mouth twice daily Potassium Chloride 10 mEq capsule, extended release Discontinued 10 MEQ PO Twice daily July 23, 2018 1:00am October 16, 2023 11:21am take 2 tablets by [facility] once daily potassium chloride CR 10 mEq ER tablet Take 2 tablets (20 mEq) by mouth once daily. Active predniSONE 10 mg oral tablet (20 sources) Start: 02-12-2025 End: 03-17-2025 Start: 03-10-2019 End: 09-27-2019 tiotropium 0.018 mg inhalati on powder (20 sources) Anticholinergic Start: 12-27-2018 End: 09-27-2019 Start: 07-23-2018 End: 09-27-2019 take 1 capsule by inhalation once daily Tiotropium Morrow (Spiriva With Handihaler) 18 mcg Capsule, W/Inhalation Device Discontinued 18 MCG INHALATION Daily December 27, 2018 12:00am September 27, 2019 12:07pm Start: 07-23-2018 End: 12-27-2018 Tiotropium Morrow (Spiriva With Handihaler) 18 mcg capsule, w/inhalation device Discontinued July 23, 2018 1:00am December 27, 2018 9:43am Problems Active Problems Problem Classification Problem Date Documented Da te Episodic/Chronic Abdominal pain (3 sources) Unspecified abdominal pain Episodic Acute myocardial infarction (2 sources) Myocardial infarction; Translations: [Myocardial infarction type 2] 02-12-2025 Chronic Anxiety disorders (20 sources) Mixed anxiety and depressive disorder; Translations: [Other specified anxiety disorders] Chronic Blindness and vision defects (1 source) Unspecified visual disturbance Episodic Cardiac dysrhythmias (4 sources) Paroxysmal supraventricular tachycardia; Translations: [Paroxysmal supraventricular tachycardia ([facility])] Onset: 4 02-09-2024 Chronic Cardiac dysrhythmias (2 [...] failure; Translations: [Heart failure, unspecified] Onset: 5 02-12-2025 Chronic Coronary atherosclerosis and other heart disease (20 sources) Angina pectoris; Translations: [Angina pectoris, unspecified] Chronic Diseases of mouth; excluding dental (15 sources) Sialoadenitis; Translations: [Sialoadenitis, unspecified] Onset: 2 Resolved: 2 Episodic Disorders of lipid metabolism (20 sources) Hyperlipidemia; Translations: [Other and unspecified hyperlipidemia] Onset: 2 Resolved: 2 Chronic E Codes: Fall (11 sources) Fall; Translations: [Unspecified fall, initial encounter] Onset: 4 06-18-2024 Episodic Esophageal disorders (20 sources) Gastroesophageal reflux disease; Translations: [Gastro-esophageal reflux disease without esophagitis] 03-07-2019 Chronic Essential hypertension (20 sources) Benign essential hypertension; Translations: [Benign essential hypertension] Onset: 2 Resolved: 2 Chronic Fluid and electrolyte disorders (2 sources) Hypernatremia; Translations: [Hyperosmolality and hypernatremia] 03-17-2025 Episodic Fracture of lower limb (20 sources) Closed fracture of foot; Translations: [Unspecified fracture of right foot, initial encounter for closed fracture] Episodic Glaucoma (20 sources) Glaucoma; Translations: [Unspecified glaucoma] 03-07-2019 Chronic Immunizations and screening for infectious disease (12 sources) Encounter for immunization; Translations: [Needs influenza immunization] Episodic Malaise and fatigue (18 sources) Other fatigue; Translations: [Fatigue] Episodic Menopausal [...] cough] 05-16-2024 Episodic Other lower respiratory disease (7 sources) Rib pain; Translations: [Pleurodynia] 06-18-2024 Episodic Other non-traumatic joint disorders (20 sources) Hip pain; Translations: [Pain in left hip] 11-15-2023 Episodic Other nutritional; endocrine; and metabolic disorders (20 sources) Hypercalcemia; Translations: [Hypercalcemia] Chronic Other nutritional; endocrine; and metabolic disorders (2 sources) Hypercalcemia Chronic Other nutritional; endocrine; and metabolic disorders (6 sources) Abnormal weight loss; Translations: [Loss of weight] Onset: 5 Episodic Other nutritional; endocrine; and metabolic disorders (3 sources) Weight decreased; Translations: [Abnormal weight loss] 12-24-2024 Episodic Other skin disorders (1 source) Other skin changes Episodic Other skin disorders (6 sources) Localized swelling, mass and lump, neck; Translations: [Swelling, mass, or lump in head and neck] 05-16-2024 Episodic Otitis media and related conditions (17 sources) Dysfunction of eustachian tube; Translations: [Unspecified Eustachian tube disorder, unspecified ear] 03-19-2024 Episodic Pathological fracture (4 sources) Age-related osteoporosis with current pathological fracture, unspecified site, initial encounter for fracture; Translations: [AGE-REL OP W/CURR PATH FX INIT ENC] Onset: 3 Episodic Peripheral and visceral atherosclerosis (20 sources) Peripheral vascular disease, unspecified; Translations: [Ischemic colitis] Onset: 1 Resolved: 2 Chronic Pneumonia (except that caused by tuberculosis or sexually transmitted disease) (3 sources) Pneumonia; Translations: [Pneumonia, unspecified organism] 02-12-2025 Episodic Pulmonary heart disease (20 sources) Pulmonary hypertension; [...] 2 Episodic Respiratory failure; insufficiency; arrest (adult) (2 sources) Dependence on supplemental oxygen; Translations: [Dependence on supplemental oxygen] 02-12-2025 Chronic Respiratory failure; insufficiency; arrest (adult) (20 sources) [...] unspecified (CMS-HCC)] Onset: 4 Unclassified (1 source) Other supraventricular tachycardia; Translations: [Other supraventricular tachycardia] Onset: 5 Unclassified (1 source) Supraventricular tachycardia, unspecified; Translations: [...] unspecified (CMS-HCC)] Onset: 02-09-2024 Unclassified (1 source) Other supraventricular tachycardia; Translations: [Other supraventricular tachycardia] Onset: 03-20-2025 Unclassified (1 source) Supraventricular tachycardia, unspecified; Translations: [Supraventricular tachycardia, unspecified] Onset: 02-27-2025 Results Test Name Value Interpretation Reference Range Facility 37on 03-20-2025 37 *Increase torsemide to 20mg daily x1 week then reduce to alternating days of 10mg and 20mg daily. *Have follow-up labs 03/31/2025 *We will increase metoprolol to try to help with your fluctuating heart rate, will increase this to 50mg twice daily Normal [facility] Office Visiton 03-20-2025 Follow-up visit [id number] Aleksandr Sanchez 1940 F Date Provider Department Center 03/20/2025 Rosemarie-ARTEM DEL RIO Family History Family Status - Relation Status Age at Mother Father Level of Service:45153 DE OFFICE/OUTPATIENT ESTABLISHED MOD MDM 30 MIN Reason for Visit and Comments: Congestive Heart Failure [127] Pulmonary Hypertension [818] Normal [facility] Orders Onlyon 03-18-2025 Orders Only [id number] Aleksandr Sanchez 1940 F Date Provider Department [place] 03/18/2025 [id number], HISTORICAL CARD Britany Dumont Family History Family Status - Relation Status Age at Mother Father Normal [facility] Basophils Auto (Bld) [#/Vol] Ordered By: Ehab Tino on 02-27-2025 Basophils (Bld) [#/Vol] 0.1 10 3/uL 0.0-0.1 [facility] Basophils/100 WBC Auto (Bld) Ordered By: Ehab Miratamark on 02-27-2025 Basophils/100 WBC (Bld) 0.5 % 0.2-2.0 [facility] Eosinophils/100 WBC Auto (Bl d)Ordered By: ab Crespotahawyamile on 02-27-2025 Eosinophils/100 WBC (Bld) 0.5 % Low 0.9-7.0 [facility] Erythrocyte distribution wid th Auto (RBC) [Ratio]Ordered By: ab Jiménez on 02-27-2025 Erythrocyte distribution width (RBC) [Ratio] 16.2 % High 11.0-15.0 [facility] Estimated glomerular filtrat ion rate (GFR) non- AmericanOrdered By: ab Jiménez on 02-27-2025 GFR/1.73 sq M.predicted among non-blacks MDRD (S/P/Bld) [Vol rate/Area] mL/min/{1.73_m2} >=60 mL/min/1.73 m 2 [facility] Globulin Calc (S) [Mass/Vol] Ordered By: ab Jiménez on 02-27-2025 Globulin (S) [Mass/Vol] 3.8 g/dL [facility] Hematocrit Auto (Bld) [Volum e fraction]Ordered By: ab Jiménez on 02-27-2025 Hematocrit (Bld) [Volume fraction] 38.5 % 36.0-48.0 [facility] Hemoglobin [Mass/volume] in BloodOrdered By: ab Jiménez on 02-27-2025 Hemoglobin (Bld) [Mass/Vol] 12.4 g/dL 12.0-16.0 [facility] Leukocytes [#/volume] correc sandra for nucleated erythrocytes in Blood by Automated counOrdered By: Iam Jiménez on 02-27-2025 WBC corrected for nucl RBC Auto (Bld) [#/Vol] 11.5 10 3/uL High 4.0-11.0 [facility] Lymphocytes Auto (Bld) [#/Vo l]Ordered By: Iam Jiménez on 02-27-2025 Lymphocytes (Bld) [#/Vol] 2.6 10 3/uL 1.2-3.8 [facility] Lymphocytes/100 WBC Auto (Bl d)Ordered By: Iam Jiménez on 02-27-2025 Lymphocytes/100 WBC (Bld) 22.6 % 20.5-60.0 [facility] MCH Auto (RBC) [Entitic mass ]Ordered By: Iam Jiménez on 02-27-2025 MCH (RBC) [Entitic mass] 31.4 pg 26.7-34.0 [facility] MCHC Auto (RBC) [Mass/Vol]Or dered By: Iam Jiménez on 02-27-2025 MCHC (RBC) [Mass/Vol] 32.2 g/dL 29.9-35.2 [facility] MCV Auto (RBC) [Entitic vol] Ordered By: ab Jiménez on 02-27-2025 MCV (RBC) [Entitic vol] 97.5 fL 81.0-99.0 [facility] Monocytes Auto (Bld) [#/Vol] Ordered By: ab Jiménez on 02-27-2025 Monocytes (Bld) [#/Vol] 0.9 10 3/uL High 0.3-0.8 [facility] Monocytes/100 WBC Auto (Bld) Ordered By: ab Jiménez on 02-27-2025 Monocytes/100 WBC (Bld) 8.0 % 1.7-12.0 [facility] Neutrophils Auto (Bld) [#/Vo l]Ordered By: Iam Jiménez on 02-27-2025 Neutrophils (Bld) [#/Vol] 7.8 10 3/uL High 1.4-6.5 [facility] Neutrophils/100 WBC Auto (Bl d)Ordered By: Iam Jiménez on 02-27-2025 Neutrophils/100 WBC (Bld) 68.2 % 43.0-75.0 [facility] No Panel InformationOrdered By: Iam Jiménez on 02-27-2025 3.2 g/dL Low 3.4-5.0 [facility] 0.1 10 3/uL 0.0-0.7 [facility] 74 U/L 46-116 [facility] 23 U/L 14-59 [facility] 22 U/L 15-37 [facility] 32.5 [facility] [facility] 0.02 10 3/uL 0.00-0.03 [facility] 25.0 mg/dL High 7.0-18.0 [facility] 0.2 % 0.0-0.5 [facility] 10.0 mg/dL 8.5-10.1 [facility] 107 mmol/L 98-107 [facility] 34.3 mmol/L High 21.0-32.0 [facility] 0.77 mg/dL 0.55-1.02 [facility] >60 >=60 mL/min/1.73 m 2 [facility] 81 mg/dL 74-106 [facility] 3.7 mmol/L 3.5-5.1 [facility] 148 mmol/L High 136-145 [facility] 0.3 mg/dL 0.2-1.0 [facility] 7.0 g/dL 6.4-8.2 [facility] Office Visiton 02-27-2025 Follow-up visit [id number] Aleksandr Sanchez 1940 F Date Provider Department Center 02/27/2025 271-IAM JIMÉNEZ HIEN [facility] Family History Family Status - Relation Status Age at Mother Father Level of Service:27409 DE OFFICE/OUTPATIENT ESTABLISHED MOD MDM 30 MIN Normal [facility] Orders Onlyon 02-27-2025 Orders Only [id number] Sanchez,Aleksandr E 1940 F Date Provider Department Center 02/27/2025 [id number], HISTORICAL CARD Britany Julia Family History Family Status - Relation Status Age at Mother Father Normal [facility] Platelet mean volume Auto (B ld) [Entitic vol]Ordered By: Iam Jiménez on 02-27-2025 Platelet mean volume (Bld) [Entitic vol] 9.8 fL 9.5-13.5 [facility] Platelets Auto (Bld) [#/Vol] Ordered By: Iam Jiménez on 02-27-2025 Platelets (Bld) [#/Vol] 389 10 3/uL 150-450 [facility] RBC Auto (Bld) [#/Vol]Ordere d By: Iam Jiménez on 02-27-2025 RBC (Bld) [#/Vol] 3.95 10 6/uL Low 4.20-5.40 [place] Serum or plasma albumin/glob ulin mass ratioOrdered By: Iam Jiménez on 02-27-2025 Albumin/Globulin [Mass ratio] 0.8 {ratio} [facility] Serum or plasma anion gap de terminationOrdered By: Iam Jiménez on 02-27-2025 Anion gap [Moles/Vol] 10.4 mmol/L [facility] Basophils Auto (Bld) [#/Vol] Ordered By: Sheldon Xie on 02-13-2025 Basophils (Bld) [#/Vol] 0.1 10 3/uL 0.0-0.1 [facility] Basophils/100 WBC Auto (Bld) Ordered By: Sheldon Xie on 02-13-2025 Basophils/100 WBC (Bld) 0.5 % 0.2-2.0 [facility] Cholesterol in LDL Calc [Mas s/Vol]Ordered By: Sheldon Xie on 02-13-2025 Cholesterol in LDL [Mass/Vol] 91.0 mg/dL [facility] Cholesterol in VLDL Calc [Ma ss/Vol]Ordered By: Sheldon Xie on 02-13-2025 Cholesterol in VLDL [Mass/Vol] 23.6 mg/dL [facility] Eosinophils/100 WBC Auto (Bl d)Ordered By: Sheldon Xie on 02-13-2025 Eosinophils/100 WBC (Bld) 2.5 % 0.9-7.0 [facility] Erythrocyte distribution wid th Auto (RBC) [Ratio]Ordered By: Sheldon Xie on 02-13-2025 Erythrocyte distribution width (RBC) [Ratio] 15.3 % High 11.0-15.0 [facility] Estimated glomerular filtrat ion rate (GFR) non- AmericanOrdered By: Sheldon Xie on 02-13-2025 GFR/1.73 sq M.predicted among non-blacks MDRD (S/P/Bld) [Vol rate/Area] mL/min/{1.73_m2} >=60 mL/min/1.73 m 2 [facility] Globulin Calc (S) [Mass/Vol] Ordered By: Sheldon Xie on 02-13-2025 Globulin (S) [Mass/Vol] 3.7 g/dL [facility] Hematocrit Auto (Bld) [Volum e fraction]Ordered By: Sheldon Xie on 02-13-2025 Hematocrit (Bld) [Volume fraction] 37.2 % 36.0-48.0 [facility] Hemoglobin [Mass/volume] in BloodOrdered By: Sheldon Xie on 02-13-2025 Hemoglobin (Bld) [Mass/Vol] 12.2 g/dL 12.0-16.0 [facility] Leukocytes [#/volume] correc sandra for nucleated erythrocytes in Blood by Automated counOrdered By: Sheldon Xie on 02-13-2025 WBC corrected for nucl RBC Auto (Bld) [#/Vol] 11.4 10 3/uL High 4.0-11.0 [facility] Lymphocytes Auto (Bld) [#/Vo l]Ordered By: Sheldon Xie on 02-13-2025 Lymphocytes (Bld) [#/Vol] 2.0 10 3/uL 1.2-3.8 [facility] Lymphocytes/100 WBC Auto (Bl d)Ordered By: Sheldon Xie on 02-13-2025 Lymphocytes/100 WBC (Bld) 17.2 % Low 20.5-60.0 [facility] MCH Auto (RBC) [Entitic mass ]Ordered By: Sheldon Xie on 02-13-2025 MCH (RBC) [Entitic mass] 31.3 pg 26.7-34.0 [facility] MCHC Auto (RBC) [Mass/Vol]Or dered By: Sheldon Xie on 02-13-2025 MCHC (RBC) [Mass/Vol] 32.8 g/dL 29.9-35.2 [facility] MCV Auto (RBC) [Entitic vol] Ordered By: Sheldon Xie on 02-13-2025 MCV (RBC) [Entitic vol] 95.4 fL 81.0-99.0 [facility] Monocytes Auto (Bld) [#/Vol] Ordered By: Sheldon Xie on 02-13-2025 Monocytes (Bld) [#/Vol] 0.8 10 3/uL 0.3-0.8 [facility] Monocytes/100 WBC Auto (Bld) Ordered By: Sheldon Xie on 02-13-2025 Monocytes/100 WBC (Bld) 6.7 % 1.7-12.0 [facility] Neutrophils Auto (Bld) [#/Vo l]Ordered By: Sheldon Xie on 02-13-2025 Neutrophils (Bld) [#/Vol] 8.3 10 3/uL High 1.4-6.5 [facility] Neutrophils/100 WBC Auto (Bl d)Ordered By: Sheldon Xie on 02-13-2025 Neutrophils/100 WBC (Bld) 72.7 % 43.0-75.0 [facility] No Panel InformationOrdered By: Sheldon Xie on 02-13-2025 3.400 u[iU]/mL 0.358-3.740 [facility] 181 mg/dL <=200 [facility] 67 mg/dL High 40-60 [facility] 2.8 g/dL Low 3.4-5.0 [facility] 0.3 10 3/uL 0.0-0.7 [facility] 67 U/L 46-116 [facility] 118 mg/dL <=150 [facility] 33 U/L 14-59 [facility] 26 U/L 15-37 [facility] 36.0 [facility] 0.04 10 3/uL High 0.00-0.03 [facility] 32.0 mg/dL High 7.0-18.0 [facility] 0.4 % 0.0-0.5 [facility] 9.4 mg/dL 8.5-10.1 [facility] 103 mmol/L 98-107 [facility] 35.3 mmol/L High 21.0-32.0 [facility] 0.89 mg/dL 0.55-1.02 [facility] >60 >=60 mL/min/1.73 m 2 [facility] 80 mg/dL 74-106 [facility] 3.8 mmol/L 3.5-5.1 [facility] 143 mmol/L 136-145 [facility] 0.4 mg/dL 0.2-1.0 [facility] 6.5 g/dL 6.4-8.2 [facility] Platelet mean volume Auto (B ld) [Entitic vol]Ordered By: Sheldon Xie on 02-13-2025 Platelet mean volume (Bld) [Entitic vol] 9.7 fL 9.5-13.5 [facility] Platelets Auto (Bld) [#/Vol] Ordered By: Sheldon Xie on 02-13-2025 Platelets (Bld) [#/Vol] 305 10 3/uL 150-450 [facility] RBC Auto (Bld) [#/Vol]Ordere d By: Sheldon Xie on 02-13-2025 RBC (Bld) [#/Vol] 3.90 10 6/uL Low 4.20-5.40 [place] Serum or plasma albumin/glob ulin mass ratioOrdered By: Sheldon Xie on 02-13-2025 Albumin/Globulin [Mass ratio] 0.8 {ratio} [facility] Serum or plasma anion gap de terminationOrdered By: Sheldon Xie on 02-13-2025 Anion gap [Moles/Vol] 8.5 mmol/L [facility] Serum or plasma total choles terol/high density lipoprotein (HDL) cholesterol mass ratOrdered By: Sheldon Xie on 02-13-2025 Cholesterol.total/Renu sterol in HDL [Mass ratio] 2.7 {ratio} [facility] Office Visiton 02-06-2025 Follow-up visit [id number] JoceAleksandr Ortiz 1940 F Date Provider Department Center 02/06/2025 ARTEM JIM HIEN Dumont Family History Family Status - Relation Status Age at Mother Father Level of Service:01164 DE OFFICE/OUTPATIENT ESTABLISHED LOW MDM 20 MIN Reason for Visit and Comments: Hospital Follow-up [832] [place] Abstracton 01-31-2025 Abstract [id number] JoceAleksandr Ortiz 1940 F Date Provider Department Center 01/31/2025 [id number] BRANHAM HIEN [facility] No family history on file [place] Basophils Auto (Bld) [#/Vol] on 01-31-2025 Basophils (Bld) [#/Vol] 0.0 10 3/uL 0.0-0.1 [facility] Basophils/100 WBC Auto (Bld) on 01-31-2025 Basophils/100 WBC (Bld) 0.1 % Low 0.2-2.0 [facility] Eosinophils/100 WBC Auto (Bl d)on 01-31-2025 Eosinophils/100 WBC (Bld) 0.6 % Low 0.9-7.0 [facility] Erythrocyte distribution wid th Auto (RBC) [Ratio]on 01-31-2025 Erythrocyte distribution width (RBC) [Ratio] 13.5 % 11.0-15.0 [facility] Estimated glomerular filtrat ion rate (GFR) non- Americanon 01-31-2025 GFR/1.73 sq M.predicted among non-blacks MDRD (S/P/Bld) [Vol rate/Area] 55 mL/min/{1.73_m2} Low >=60 mL/min/1.73 m 2 [facility] Hematocrit Auto (Bld) [Volum e fraction]on 01-31-2025 Hematocrit (Bld) [Volume fraction] 36.8 % 36.0-48.0 [facility] Hemoglobin [Mass/volume] in Bloodon 01-31-2025 Hemoglobin (Bld) [Mass/Vol] 12.4 g/dL 12.0-16.0 [facility] Leukocytes [#/volume] correc sandra for nucleated erythrocytes in Blood by Automated counon 01-31-2025 WBC corrected for nucl RBC Auto (Bld) [#/Vol] 16.3 10 3/uL High 4.0-11.0 [facility] Lymphocytes Auto (Bld) [#/Vo l]on 01-31-2025 Lymphocytes (Bld) [#/Vol] 2.7 10 3/uL 1.2-3.8 [facility] Lymphocytes/100 WBC Auto (Bl d)on 01-31-2025 Lymphocytes/100 WBC (Bld) 16.5 % Low 20.5-60.0 [facility] MCH Auto (RBC) [Entitic mass ]on 01-31-2025 MCH (RBC) [Entitic mass] 30.8 pg 26.7-34.0 [facility] MCHC Auto (RBC) [Mass/Vol]on 01-31-2025 MCHC (RBC) [Mass/Vol] 33.7 g/dL 29.9-35.2 [facility] MCV Auto (RBC) [Entitic vol] on 01-31-2025 MCV (RBC) [Entitic vol] 91.3 fL 81.0-99.0 [facility] Monocytes Auto (Bld) [#/Vol] on 01-31-2025 Monocytes (Bld) [#/Vol] 1.1 10 3/uL High 0.3-0.8 [facility] Monocytes/100 WBC Auto (Bld) on 01-31-2025 Monocytes/100 WBC (Bld) 6.7 % 1.7-12.0 [facility] Neutrophils Auto (Bld) [#/Vo l]on 01-31-2025 Neutrophils (Bld) [#/Vol] 12.3 10 3/uL High 1.4-6.5 [facility] Neutrophils/100 WBC Auto (Bl d)on 01-31-2025 Neutrophils/100 WBC (Bld) 75.2 % High 43.0-75.0 [facility] No Panel Informationon 01-31 1.4 ng/mL 0.9-2.0 [facility] 1601.0 pg/mL <=1800.0 [facility] 128.4 pg/mL Critically high 4.0-51.3 [facility] 49.5 [facility] 48.0 mg/dL High 7.0-18.0 [facility] 0.1 10 3/uL 0.0-0.7 [facility] 9.5 mg/dL 8.5-10.1 [facility] 100 mmol/L 98-107 [facility] 37.1 mmol/L High 21.0-32.0 [facility] 0.97 mg/dL 0.55-1.02 [facility] 0.14 10 3/uL High 0.00-0.03 [facility] >60 >=60 mL/min/1.73 m 2 [facility] 0.9 % High 0.0-0.5 [facility] 89 mg/dL 74-106 [facility] 3.9 mmol/L 3.5-5.1 [facility] 141 mmol/L 136-145 [facility] Platelet mean volume Auto (B ld) [Entitic vol]on 01-31-2025 Platelet mean volume (Bld) [Entitic vol] 9.6 fL 9.5-13.5 [facility] Platelets Auto (Bld) [#/Vol] on 01-31-2025 Platelets (Bld) [#/Vol] 438 10 3/uL 150-450 [facility] RBC Auto (Bld) [#/Vol]on RBC (Bld) [#/Vol] 4.03 10 6/uL Low 4.20-5.40 [place] Serum or plasma anion gap de terminationon 01-31-2025 Anion gap [Moles/Vol] 7.8 mmol/L [facility] Basophils Auto (Bld) [#/Vol] on 01-30-2025 Basophils (Bld) [#/Vol] 0.0 10 3/uL 0.0-0.1 [facility] Basophils/100 WBC Auto (Bld) on 01-30-2025 Basophils/100 WBC (Bld) 0.2 % 0.2-2.0 [facility] Eosinophils/100 WBC Auto (Bl d)on 01-30-2025 Eosinophils/100 WBC (Bld) 1.2 % 0.9-7.0 [facility] Erythrocyte distribution wid th Auto (RBC) [Ratio]on 01-30-2025 Erythrocyte distribution width (RBC) [Ratio] 13.7 % 11.0-15.0 [facility] Estimated glomerular filtrat ion rate (GFR) non- Americanon 01-30-2025 GFR/1.73 sq M.predicted among non-blacks MDRD (S/P/Bld) [Vol rate/Area] mL/min/{1.73_m2} >=60 mL/min/1.73 m 2 [facility] Globulin Calc (S) [Mass/Vol] on 01-30-2025 Globulin (S) [Mass/Vol] 3.9 g/dL [facility] Hematocrit Auto (Bld) [Volum e fraction]on 01-30-2025 Hematocrit (Bld) [Volume fraction] 37.1 % 36.0-48.0 [facility] Hemoglobin [Mass/volume] in Bloodon 01-30-2025 Hemoglobin (Bld) [Mass/Vol] 12.8 g/dL 12.0-16.0 [facility] Leukocytes [#/volume] correc sandra for nucleated erythrocytes in Blood by Automated counon 01-30-2025 WBC corrected for nucl RBC Auto (Bld) [#/Vol] 16.1 10 3/uL High 4.0-11.0 [facility] Lymphocytes Auto (Bld) [#/Vo l]on 01-30-2025 Lymphocytes (Bld) [#/Vol] 3.1 10 3/uL 1.2-3.8 [facility] Lymphocytes/100 WBC Auto (Bl d)on 01-30-2025 Lymphocytes/100 WBC (Bld) 19.2 % Low 20.5-60.0 [facility] MCH Auto (RBC) [Entitic mass ]on 01-30-2025 MCH (RBC) [Entitic mass] 31.8 pg 26.7-34.0 [facility] MCHC Auto (RBC) [Mass/Vol]on 01-30-2025 MCHC (RBC) [Mass/Vol] 34.5 g/dL 29.9-35.2 [facility] MCV Auto (RBC) [Entitic vol] on 01-30-2025 MCV (RBC) [Entitic vol] 92.1 fL 81.0-99.0 [facility] Monocytes Auto (Bld) [#/Vol] on 01-30-2025 Monocytes (Bld) [#/Vol] 1.1 10 3/uL High 0.3-0.8 [facility] Monocytes/100 WBC Auto (Bld) on 01-30-2025 Monocytes/100 WBC (Bld) 6.9 % 1.7-12.0 [facility] Neutrophils Auto (Bld) [#/Vo l]on 01-30-2025 Neutrophils (Bld) [#/Vol] 11.6 10 3/uL High 1.4-6.5 [facility] Neutrophils/100 WBC Auto (Bl d)on 01-30-2025 Neutrophils/100 WBC (Bld) 71.7 % 43.0-75.0 [facility] No Panel Informationon 01-30 2846.0 pg/mL Critically high <=1800.0 [facility] 280.1 pg/mL Critically high 4.0-51.3 [facility] 1.3 ng/mL 0.9-2.0 [facility] 2.4 g/dL Low 3.4-5.0 [facility] 0.2 10 3/uL 0.0-0.7 [facility] 64 U/L 46-116 [facility] 39 U/L 14-59 [facility] 23 U/L 15-37 [facility] 45.8 [facility] 0.13 10 3/uL High 0.00-0.03 [facility] 38.0 mg/dL High 7.0-18.0 [facility] 0.8 % High 0.0-0.5 [facility] 9.3 mg/dL 8.5-10.1 [facility] 101 mmol/L 98-107 [facility] 35.4 mmol/L High 21.0-32.0 [facility] 0.83 mg/dL 0.55-1.02 [facility] >60 >=60 mL/min/1.73 m 2 [facility] 90 mg/dL 74-106 [facility] 3.7 mmol/L 3.5-5.1 [facility] 144 mmol/L 136-145 [facility] 0.5 mg/dL 0.2-1.0 [facility] 6.3 g/dL Low 6.4-8.2 [facility] Platelet mean volume Auto (B ld) [Entitic vol]on 01-30-2025 Platelet mean volume (Bld) [Entitic vol] 10.1 fL 9.5-13.5 [facility] Platelets Auto (Bld) [#/Vol] on 01-30-2025 Platelets (Bld) [#/Vol] 408 10 3/uL 150-450 [facility] RBC Auto (Bld) [#/Vol]on RBC (Bld) [#/Vol] 4.03 10 6/uL Low 4.20-5.40 [place] Serum or plasma albumin/glob ulin mass ratioon 01-30-2025 Albumin/Globulin [Mass ratio] 0.6 {ratio} [facility] Serum or plasma anion gap de terminationon 01-30-2025 Anion gap [Moles/Vol] 11.3 mmol/L [facility] Basophils Auto (Bld) [#/Vol] on 01-29-2025 Basophils (Bld) [#/Vol] 0.0 10 3/uL 0.0-0.1 [facility] Basophils/100 WBC Auto (Bld) on 01-29-2025 Basophils/100 WBC (Bld) 0.1 % Low 0.2-2.0 [facility] Eosinophils/100 WBC Auto (Bl d)on 01-29-2025 Eosinophils/100 WBC (Bld) 1.7 % 0.9-7.0 [facility] Erythrocyte distribution wid th Auto (RBC) [Ratio]on 01-29-2025 Erythrocyte distribution width (RBC) [Ratio] 13.7 % 11.0-15.0 [facility] Estimated glomerular filtrat ion rate (GFR) non- Americanon 01-29-2025 GFR/1.73 sq M.predicted among non-blacks MDRD (S/P/Bld) [Vol rate/Area] mL/min/{1.73_m2} >=60 mL/min/1.73 m 2 [facility] Globulin Calc (S) [Mass/Vol] on 01-29-2025 Globulin (S) [Mass/Vol] 3.7 g/dL [facility] Hematocrit Auto (Bld) [Volum e fraction]on 01-29-2025 Hematocrit (Bld) [Volume fraction] 37.8 % 36.0-48.0 [facility] Hemoglobin [Mass/volume] in Bloodon 01-29-2025 Hemoglobin (Bld) [Mass/Vol] 12.5 g/dL 12.0-16.0 [facility] Leukocytes [#/volume] correc sandra for nucleated erythrocytes in Blood by Automated counon 01-29-2025 WBC corrected for nucl RBC Auto (Bld) [#/Vol] 12.0 10 3/uL High 4.0-11.0 [facility] Lymphocytes Auto (Bld) [#/Vo l]on 01-29-2025 Lymphocytes (Bld) [#/Vol] 2.5 10 3/uL 1.2-3.8 [facility] Lymphocytes/100 WBC Auto (Bl d)on 01-29-2025 Lymphocytes/100 WBC (Bld) 20.6 % 20.5-60.0 [facility] MCH Auto (RBC) [Entitic mass ]on 01-29-2025 MCH (RBC) [Entitic mass] 30.9 pg 26.7-34.0 [facility] MCHC Auto (RBC) [Mass/Vol]on 01-29-2025 MCHC (RBC) [Mass/Vol] 33.1 g/dL 29.9-35.2 [facility] MCV Auto (RBC) [Entitic vol] on 01-29-2025 MCV (RBC) [Entitic vol] 93.3 fL 81.0-99.0 [facility] Monocytes Auto (Bld) [#/Vol] on 01-29-2025 Monocytes (Bld) [#/Vol] 1.1 10 3/uL High 0.3-0.8 [facility] Monocytes/100 WBC Auto (Bld) on 01-29-2025 Monocytes/100 WBC (Bld) 9.2 % 1.7-12.0 [facility] Neutrophils Auto (Bld) [#/Vo l]on 01-29-2025 Neutrophils (Bld) [#/Vol] 8.1 10 3/uL High 1.4-6.5 [facility] Neutrophils/100 WBC Auto (Bl d)on 01-29-2025 Neutrophils/100 WBC (Bld) 67.2 % 43.0-75.0 [facility] No Panel Informationon 01-29 535.6 pg/mL Critically high 4.0-51.3 [facility] 4576.0 pg/mL Critically high <=1800.0 [facility] 2.3 g/dL Low 3.4-5.0 [facility] 0.2 10 3/uL 0.0-0.7 [facility] 67 U/L 46-116 [facility] 34 U/L 14-59 [facility] 19 U/L 15-37 [facility] 48.6 [facility] 0.14 10 3/uL High 0.00-0.03 [facility] 35.0 mg/dL High 7.0-18.0 [facility] 1.2 % High 0.0-0.5 [facility] 9.3 mg/dL 8.5-10.1 [facility] 103 mmol/L 98-107 [facility] 37.0 mmol/L High 21.0-32.0 [facility] 0.72 mg/dL 0.55-1.02 [facility] >60 >=60 mL/min/1.73 m 2 [facility] 88 mg/dL 74-106 [facility] 3.6 mmol/L 3.5-5.1 [facility] 145 mmol/L 136-145 [facility] 0.5 mg/dL 0.2-1.0 [facility] 6.0 g/dL Low 6.4-8.2 [facility] Platelet mean volume Auto (B ld) [Entitic vol]on 01-29-2025 Platelet mean volume (Bld) [Entitic vol] 10.0 fL 9.5-13.5 [facility] Platelets Auto (Bld) [#/Vol] on 01-29-2025 Platelets (Bld) [#/Vol] 348 10 3/uL 150-450 [facility] RBC Auto (Bld) [#/Vol]on RBC (Bld) [#/Vol] 4.05 10 6/uL Low 4.20-5.40 [place] Serum or plasma albumin/glob ulin mass ratioon 01-29-2025 Albumin/Globulin [Mass ratio] 0.6 {ratio} [facility] Serum or plasma anion gap de terminationon 01-29-2025 Anion gap [Moles/Vol] 8.6 mmol/L [facility] Basophils Auto (Bld) [#/Vol] on 01-28-2025 Basophils (Bld) [#/Vol] 0.0 10 3/uL 0.0-0.1 [facility] Basophils/100 WBC Auto (Bld) on 01-28-2025 Basophils/100 WBC (Bld) 0.2 % 0.2-2.0 [facility] Eosinophils/100 WBC Auto (Bl d)on 01-28-2025 Eosinophils/100 WBC (Bld) 0.5 % Low 0.9-7.0 [facility] Erythrocyte distribution wid th Auto (RBC) [Ratio]on 01-28-2025 Erythrocyte distribution width (RBC) [Ratio] 13.7 % 11.0-15.0 [facility] Estimated glomerular filtrat ion rate (GFR) non- Americanon 01-28-2025 GFR/1.73 sq M.predicted among non-blacks MDRD (S/P/Bld) [Vol rate/Area] mL/min/{1.73_m2} >=60 mL/min/1.73 m 2 [facility] Globulin Calc (S) [Mass/Vol] on 01-28-2025 Globulin (S) [Mass/Vol] 3.7 g/dL [facility] Hematocrit Auto (Bld) [Volum e fraction]on 01-28-2025 Hematocrit (Bld) [Volume fraction] 38.9 % 36.0-48.0 [facility] Hemoglobin [Mass/volume] in Bloodon 01-28-2025 Hemoglobin (Bld) [Mass/Vol] 12.8 g/dL 12.0-16.0 [facility] Leukocytes [#/volume] correc sandra for nucleated erythrocytes in Blood by Automated counon 01-28-2025 WBC corrected for nucl RBC Auto (Bld) [#/Vol] 12.2 10 3/uL High 4.0-11.0 [facility] Lymphocytes Auto (Bld) [#/Vo l]on 01-28-2025 Lymphocytes (Bld) [#/Vol] 1.9 10 3/uL 1.2-3.8 [facility] Lymphocytes/100 WBC Auto (Bl d)on 01-28-2025 Lymphocytes/100 WBC (Bld) 15.8 % Low 20.5-60.0 [facility] MCH Auto (RBC) [Entitic mass ]on 01-28-2025 MCH (RBC) [Entitic mass] 30.9 pg 26.7-34.0 [facility] MCHC Auto (RBC) [Mass/Vol]on 01-28-2025 MCHC (RBC) [Mass/Vol] 32.9 g/dL 29.9-35.2 [facility] MCV Auto (RBC) [Entitic vol] on 01-28-2025 MCV (RBC) [Entitic vol] 94.0 fL 81.0-99.0 [facility] Monocytes Auto (Bld) [#/Vol] on 01-28-2025 Monocytes (Bld) [#/Vol] 1.3 10 3/uL High 0.3-0.8 [facility] Monocytes/100 WBC Auto (Bld) on 01-28-2025 Monocytes/100 WBC (Bld) 10.8 % 1.7-12.0 [facility] Neutrophils Auto (Bld) [#/Vo l]on 01-28-2025 Neutrophils (Bld) [#/Vol] 8.7 10 3/uL High 1.4-6.5 [facility] Neutrophils/100 WBC Auto (Bl d)on 01-28-2025 Neutrophils/100 WBC (Bld) 71.8 % 43.0-75.0 [facility] No Panel Informationon 01-28 9216.0 pg/mL Critically high <=1800.0 [facility] 870.6 pg/mL Critically high 4.0-51.3 [facility] 2.3 g/dL Low 3.4-5.0 [facility] 0.1 10 3/uL 0.0-0.7 [facility] 65 U/L 46-116 [facility] 42 U/L 14-59 [facility] 30 U/L 15-37 [facility] 45.6 [facility] 0.11 10 3/uL High 0.00-0.03 [facility] 36.0 mg/dL High 7.0-18.0 [facility] 0.9 % High 0.0-0.5 [facility] 9.1 mg/dL 8.5-10.1 [facility] 106 mmol/L 98-107 [facility] 35.1 mmol/L High 21.0-32.0 [facility] 0.79 mg/dL 0.55-1.02 [facility] >60 >=60 mL/min/1.73 m 2 [facility] 80 mg/dL 74-106 [facility] 3.8 mmol/L 3.5-5.1 [facility] 147 mmol/L High 136-145 [facility] 0.4 mg/dL 0.2-1.0 [facility] 6.0 g/dL Low 6.4-8.2 [facility] Platelet mean volume Auto (B ld) [Entitic vol]on 01-28-2025 Platelet mean volume (Bld) [Entitic vol] 10.3 fL 9.5-13.5 [facility] Platelets Auto (Bld) [#/Vol] on 01-28-2025 Platelets (Bld) [#/Vol] 312 10 3/uL 150-450 [facility] RBC Auto (Bld) [#/Vol]on RBC (Bld) [#/Vol] 4.14 10 6/uL Low 4.20-5.40 [place] Serum or plasma albumin/glob ulin mass ratioon 01-28-2025 Albumin/Globulin [Mass ratio] 0.6 {ratio} [facility] Serum or plasma anion gap de terminationon 01-28-2025 Anion gap [Moles/Vol] 9.7 mmol/L [facility] Basophils Auto (Bld) [#/Vol] on 01-27-2025 Basophils (Bld) [#/Vol] 0.0 10 3/uL 0.0-0.1 [facility] Basophils/100 WBC Auto (Bld) on 01-27-2025 Basophils/100 WBC (Bld) 0.1 % Low 0.2-2.0 [facility] Eosinophils/100 WBC Auto (Bl d)on 01-27-2025 Eosinophils/100 WBC (Bld) 0.1 % Low 0.9-7.0 [facility] Erythrocyte distribution wid th Auto (RBC) [Ratio]on 01-27-2025 Erythrocyte distribution width (RBC) [Ratio] 14.0 % 11.0-15.0 [facility] Estimated glomerular filtrat ion rate (GFR) non- Americanon 01-27-2025 GFR/1.73 sq M.predicted among non-blacks MDRD (S/P/Bld) [Vol rate/Area] 52 mL/min/{1.73_m2} Low >=60 mL/min/1.73 m 2 [facility] Globulin Calc (S) [Mass/Vol] on 01-27-2025 Globulin (S) [Mass/Vol] 3.4 g/dL [facility] Hematocrit Auto (Bld) [Volum e fraction]on 01-27-2025 Hematocrit (Bld) [Volume fraction] 34.3 % Low 36.0-48.0 [facility] Hemoglobin [Mass/volume] in Bloodon 01-27-2025 Hemoglobin (Bld) [Mass/Vol] 11.2 g/dL Low 12.0-16.0 [facility] Leukocytes [#/volume] correc sandra for nucleated erythrocytes in Blood by Automated counon 01-27-2025 WBC corrected for nucl RBC Auto (Bld) [#/Vol] 14.3 10 3/uL High 4.0-11.0 [facility] Lymphocytes Auto (Bld) [#/Vo l]on 01-27-2025 Lymphocytes (Bld) [#/Vol] 1.5 10 3/uL 1.2-3.8 [facility] Lymphocytes/100 WBC Auto (Bl d)on 01-27-2025 Lymphocytes/100 WBC (Bld) 10.4 % Low 20.5-60.0 [facility] MCH Auto (RBC) [Entitic mass ]on 01-27-2025 MCH (RBC) [Entitic mass] 31.3 pg 26.7-34.0 [facility] MCHC Auto (RBC) [Mass/Vol]on 01-27-2025 MCHC (RBC) [Mass/Vol] 32.7 g/dL 29.9-35.2 [facility] MCV Auto (RBC) [Entitic vol] on 01-27-2025 MCV (RBC) [Entitic vol] 95.8 fL 81.0-99.0 [facility] Monocytes Auto (Bld) [#/Vol] on 01-27-2025 Monocytes (Bld) [#/Vol] 1.4 10 3/uL High 0.3-0.8 [facility] Monocytes/100 WBC Auto (Bld) on 01-27-2025 Monocytes/100 WBC (Bld) 10.0 % 1.7-12.0 [facility] Neutrophils Auto (Bld) [#/Vo l]on 01-27-2025 Neutrophils (Bld) [#/Vol] 11.2 10 3/uL High 1.4-6.5 [facility] Neutrophils/100 WBC Auto (Bl d)on 01-27-2025 Neutrophils/100 WBC (Bld) 78.9 % High 43.0-75.0 [facility] No Panel Informationon 01-27 1075.6 pg/mL Critically high 4.0-51.3 [facility] 53877.0 pg/mL Critically high <=1800.0 [facility] 2.2 g/dL Low 3.4-5.0 [facility] 0.0 10 3/uL 0.0-0.7 [facility] 60 U/L 46-116 [facility] 46 U/L 14-59 [facility] 40 U/L High 15-37 [facility] 46.1 [facility] 0.07 10 3/uL High 0.00-0.03 [facility] 47.0 mg/dL High 7.0-18.0 [facility] 0.5 % 0.0-0.5 [facility] 8.5 mg/dL 8.5-10.1 [facility] 107 mmol/L 98-107 [facility] 32.2 mmol/L High 21.0-32.0 [facility] 1.02 mg/dL 0.55-1.02 [facility] >60 >=60 mL/min/1.73 m 2 [facility] 87 mg/dL 74-106 [facility] 4.4 mmol/L 3.5-5.1 [facility] 146 mmol/L High 136-145 [facility] 0.3 mg/dL 0.2-1.0 [facility] 5.6 g/dL Low 6.4-8.2 [facility] Platelet mean volume Auto (B ld) [Entitic vol]on 01-27-2025 Platelet mean volume (Bld) [Entitic vol] 10.4 fL 9.5-13.5 [facility] Platelets Auto (Bld) [#/Vol] on 01-27-2025 Platelets (Bld) [#/Vol] 283 10 3/uL 150-450 [facility] RBC Auto (Bld) [#/Vol]on RBC (Bld) [#/Vol] 3.58 10 6/uL Low 4.20-5.[facility] Serum or plasma albumin/glob ulin mass ratioon 01-27-2025 Albumin/Globulin [Mass ratio] 0.6 {ratio} [facility] Serum or plasma anion gap de terminationon 01-27-2025 Anion gap [Moles/Vol] 11.2 [facility] Basophils Auto (Bld) [#/Vol] on 01-26-2025 Basophils (Bld) [#/Vol] 0.0 10 3/uL 0.0-0.1 [facility] Basophils/100 WBC Auto (Bld) on 01-26-2025 Basophils/100 WBC (Bld) 0.0 % Low 0.2-2.0 [facility] Eosinophils/100 WBC Auto (Bl d)on 01-26-2025 Eosinophils/100 WBC (Bld) 0.0 % Low 0.9-7.0 [facility] Erythrocyte distribution wid th Auto (RBC) [Ratio]on 01-26-2025 Erythrocyte distribution width (RBC) [Ratio] 14.1 % 11.0-15.0 [facility] Estimated glomerular filtrat ion rate (GFR) non- Americanon 01-26-2025 GFR/1.73 sq M.predicted among non-blacks MDRD (S/P/Bld) [Vol rate/Area] mL/min/{1.73_m2} >=60 mL/min/1.73 m 2 [facility] Globulin Calc (S) [Mass/Vol] on 01-26-2025 Globulin (S) [Mass/Vol] 3.6 g/dL [facility] Hematocrit Auto (Bld) [Volum e fraction]on 01-26-2025 Hematocrit (Bld) [Volume fraction] 34.7 % Low 36.0-48.0 [facility] Hemoglobin [Mass/volume] in Bloodon 01-26-2025 Hemoglobin (Bld) [Mass/Vol] 11.4 g/dL Low 12.0-16.0 [facility] Leukocytes [#/volume] correc sandra for nucleated erythrocytes in Blood by Automated counon 01-26-2025 WBC corrected for nucl RBC Auto (Bld) [#/Vol] 10.7 10 3/uL 4.0-11.0 [facility] Lymphocytes Auto (Bld) [#/Vo l]on 01-26-2025 Lymphocytes (Bld) [#/Vol] 1.2 10 3/uL 1.2-3.8 [facility] Lymphocytes/100 WBC Auto (Bl d)on 01-26-2025 Lymphocytes/100 WBC (Bld) 11.3 % Low 20.5-60.0 [facility] MCH Auto (RBC) [Entitic mass ]on 01-26-2025 MCH (RBC) [Entitic mass] 31.4 pg 26.7-34.0 [facility] MCHC Auto (RBC) [Mass/Vol]on 01-26-2025 MCHC (RBC) [Mass/Vol] 32.9 g/dL 29.9-35.2 [facility] MCV Auto (RBC) [Entitic vol] on 01-26-2025 MCV (RBC) [Entitic vol] 95.6 fL 81.0-99.0 [facility] Monocytes Auto (Bld) [#/Vol] on 01-26-2025 Monocytes (Bld) [#/Vol] 0.7 10 3/uL 0.3-0.8 [facility] Monocytes/100 WBC Auto (Bld) on 01-26-2025 Monocytes/100 WBC (Bld) 6.3 % 1.7-12.0 [facility] Neutrophils Auto (Bld) [#/Vo l]on 01-26-2025 Neutrophils (Bld) [#/Vol] 8.7 10 3/uL High 1.4-6.5 [facility] Neutrophils/100 WBC Auto (Bl d)on 01-26-2025 Neutrophils/100 WBC (Bld) 81.8 % High 43.0-75.0 [facility] No Panel Informationon 01-26 62279.0 pg/mL Critically high <=1800.0 [facility] 35.5 pg/mL 4.0-51.3 [facility] 2.3 g/dL Low 3.4-5.0 [facility] 0.0 10 3/uL 0.0-0.7 [facility] 72 U/L 46-116 [facility] 44 U/L 14-59 [facility] 28 U/L 15-37 [facility] 38.0 [facility] 0.06 10 3/uL High 0.00-0.03 [facility] 30.0 mg/dL High 7.0-18.0 [facility] 0.6 % High 0.0-0.5 [facility] 8.4 mg/dL Low 8.5-10.1 [facility] 108 mmol/L High 98-107 [facility] 31.1 mmol/L 21.0-32.0 [facility] 0.79 mg/dL 0.55-1.02 [facility] >60 >=60 mL/min/1.73 m 2 [facility] 122 mg/dL High 74-106 [facility] 4.0 mmol/L 3.5-5.1 [facility] 146 mmol/L High 136-145 [facility] 0.3 mg/dL 0.2-1.0 [facility] 5.9 g/dL Low 6.4-8.2 [facility] Platelet mean volume Auto (B ld) [Entitic vol]on 01-26-2025 Platelet mean volume (Bld) [Entitic vol] 10.3 fL 9.5-13.5 [facility] Platelets Auto (Bld) [#/Vol] on 01-26-2025 Platelets (Bld) [#/Vol] 298 10 3/uL 150-450 [facility] RBC Auto (Bld) [#/Vol]on RBC (Bld) [#/Vol] 3.63 10 6/uL Low 4.20-5.40 [place] Serum or plasma albumin/glob ulin mass ratioon 01-26-2025 Albumin/Globulin [Mass ratio] 0.6 {ratio} [facility] Serum or plasma anion gap de terminationon 01-26-2025 Anion gap [Moles/Vol] 10.9 [facility] Basophils Auto (Bld) [#/Vol] on 01-25-2025 Basophils (Bld) [#/Vol] 0.0 10 3/uL 0.0-0.1 [facility] Basophils/100 WBC Auto (Bld) on 01-25-2025 Basophils/100 WBC (Bld) 0.0 % Low 0.2-2.0 [facility] Eosinophils/100 WBC Auto (Bl d)on 01-25-2025 Eosinophils/100 WBC (Bld) 0.0 % Low 0.9-7.0 [facility] Erythrocyte distribution wid th Auto (RBC) [Ratio]on 01-25-2025 Erythrocyte distribution width (RBC) [Ratio] 14.3 % 11.0-15.0 [facility] Estimated glomerular filtrat ion rate (GFR) non- Americanon 01-25-2025 GFR/1.73 sq M.predicted among non-blacks MDRD (S/P/Bld) [Vol rate/Area] mL/min/{1.73_m2} >=60 mL/min/1.73 m 2 [facility] Globulin Calc (S) [Mass/Vol] on 01-25-2025 Globulin (S) [Mass/Vol] 3.9 g/dL [facility] Hematocrit Auto (Bld) [Volum e fraction]on 01-25-2025 Hematocrit (Bld) [Volume fraction] 35.4 % Low 36.0-48.0 [facility] Hemoglobin [Mass/volume] in Bloodon 01-25-2025 Hemoglobin (Bld) [Mass/Vol] 11.4 g/dL Low 12.0-16.0 [facility] Leukocytes [#/volume] correc sandra for nucleated erythrocytes in Blood by Automated counon 01-25-2025 WBC corrected for nucl RBC Auto (Bld) [#/Vol] 10.3 10 3/uL 4.0-11.0 [facility] Lymphocytes Auto (Bld) [#/Vo l]on 01-25-2025 Lymphocytes (Bld) [#/Vol] 0.9 10 3/uL Low 1.2-3.8 [facility] Lymphocytes/100 WBC Auto (Bl d)on 05-31-2025 Lymphocytes/100 WBC (Bld) 8.5 % Low 20.5-60.0 [facility] MCH Auto (RBC) [Entitic mass ]on 01-25-2025 MCH (RBC) [Entitic mass] 31.1 pg 26.7-34.0 [facility] MCHC Auto (RBC) [Mass/Vol]on 01-25-2025 MCHC (RBC) [Mass/Vol] 32.2 g/dL 29.9-35.2 [facility] MCV Auto (RBC) [Entitic vol] on 01-25-2025 MCV (RBC) [Entitic vol] 96.7 fL 81.0-99.0 [facility] Monocytes Auto (Bld) [#/Vol] on 01-25-2025 Monocytes (Bld) [#/Vol] 0.3 10 3/uL 0.3-0.8 [facility] Monocytes/100 WBC Auto (Bld) on 01-25-2025 Monocytes/100 WBC (Bld) 3.0 % 1.7-12.0 [facility] Neutrophils Auto (Bld) [#/Vo l]on 01-25-2025 Neutrophils (Bld) [#/Vol] 9.1 10 3/uL High 1.4-6.5 [facility] Neutrophils/100 WBC Auto (Bl d)on 01-25-2025 Neutrophils/100 WBC (Bld) 87.8 % High 43.0-75.0 [facility] No Panel Informationon 01-25 54.7 pg/mL Critically high 4.0-51.3 [facility] 47339.0 pg/mL Critically high <=1800.0 [facility] 2.2 g/dL Low 3.4-5.0 [facility] 0.0 10 3/uL 0.0-0.7 [facility] 73 U/L 46-116 [facility] 45 U/L 14-59 [facility] 40 U/L High 15-37 [facility] 41.5 [facility] 0.07 10 3/uL High 0.00-0.03 [facility] 34.0 mg/dL High 7.0-18.0 [facility] 0.7 % High 0.0-0.5 [facility] 8.6 mg/dL 8.5-10.1 [facility] 110 mmol/L High 98-107 [facility] 27.7 mmol/L 21.0-32.0 [facility] 0.82 mg/dL 0.55-1.02 [facility] >60 >=60 mL/min/1.73 m 2 [facility] 121 mg/dL High 74-106 [facility] 4.3 mmol/L 3.5-5.1 [facility] 147 mmol/L High 136-145 [facility] 0.3 mg/dL 0.2-1.0 [facility] 6.1 g/dL Low 6.4-8.2 [facility] Platelet mean volume Auto (B ld) [Entitic vol]on 01-25-2025 Platelet mean volume (Bld) [Entitic vol] 10.4 fL 9.5-13.5 [facility] Platelets Auto (Bld) [#/Vol] on 01-25-2025 Platelets (Bld) [#/Vol] 282 10 3/uL 150-450 [facility] RBC Auto (Bld) [#/Vol]on RBC (Bld) [#/Vol] 3.66 10 6/uL Low 4.20-5.40 [place] Serum or plasma albumin/glob ulin mass ratioon 01-25-2025 Albumin/Globulin [Mass ratio] 0.6 {ratio} [facility] Serum or plasma anion gap de terminationon 01-25-2025 Anion gap [Moles/Vol] 13.6 [facility] Basophils Auto (Bld) [#/Vol] on 01-24-2025 Basophils (Bld) [#/Vol] 0.0 10 3/uL 0.0-0.1 [facility] Basophils/100 WBC Auto (Bld) on 01-24-2025 Basophils/100 WBC (Bld) 0.1 % Low 0.2-2.0 [facility] Eosinophils/100 WBC Auto (Bl d)on 01-24-2025 Eosinophils/100 WBC (Bld) 0.0 % Low 0.9-7.0 [facility] Erythrocyte distribution wid th Auto (RBC) [Ratio]on 01-24-2025 Erythrocyte distribution width (RBC) [Ratio] 14.5 % 11.0-15.0 [facility] Estimated glomerular filtrat ion rate (GFR) non- Americanon 01-24-2025 GFR/1.73 sq M.predicted among non-blacks MDRD (S/P/Bld) [Vol rate/Area] 60 mL/min/{1.73_m2} >=60 mL/min/1.73 m 2 [facility] Globulin Calc (S) [Mass/Vol] on 01-24-2025 Globulin (S) [Mass/Vol] 4.0 g/dL [facility] Hematocrit Auto (Bld) [Volum e fraction]on 01-24-2025 Hematocrit (Bld) [Volume fraction] 33.6 % Low 36.0-48.0 [facility] Hemoglobin [Mass/volume] in Bloodon 01-24-2025 Hemoglobin (Bld) [Mass/Vol] 10.6 g/dL Low 12.0-16.0 [facility] Leukocytes [#/volume] correc sandra for nucleated erythrocytes in Blood by Automated counon 01-24-2025 WBC corrected for nucl RBC Auto (Bld) [#/Vol] 15.9 10 3/uL High 4.0-11.0 [facility] Lymphocytes Auto (Bld) [#/Vo l]on 01-24-2025 Lymphocytes (Bld) [#/Vol] 0.9 10 3/uL Low 1.2-3.8 [facility] Lymphocytes/100 WBC Auto (Bl d)on 01-24-2025 Lymphocytes/100 WBC (Bld) 5.4 % Low 20.5-60.0 [facility] MCH Auto (RBC) [Entitic mass ]on 01-24-2025 MCH (RBC) [Entitic mass] 31.0 pg 26.7-34.0 [facility] MCHC Auto (RBC) [Mass/Vol]on 01-24-2025 MCHC (RBC) [Mass/Vol] 31.5 g/dL 29.9-35.2 [facility] MCV Auto (RBC) [Entitic vol] on 01-24-2025 MCV (RBC) [Entitic vol] 98.2 fL 81.0-99.0 [facility] Monocytes Auto (Bld) [#/Vol] on 01-24-2025 Monocytes (Bld) [#/Vol] 0.5 10 3/uL 0.3-0.8 [facility] Monocytes/100 WBC Auto (Bld) on 01-24-2025 Monocytes/100 WBC (Bld) 3.3 % 1.7-12.0 [facility] Neutrophils Auto (Bld) [#/Vo l]on 01-24-2025 Neutrophils (Bld) [#/Vol] 14.3 10 3/uL High 1.4-6.5 [facility] Neutrophils/100 WBC Auto (Bl d)on 01-24-2025 Neutrophils/100 WBC (Bld) 90.1 % High 43.0-75.0 [facility] No Panel Informationon 01-24 40.9 pg/mL 4.0-51.3 [facility] 4453.0 pg/mL Critically high <=1800.0 [facility] 2.0 g/dL Low 3.4-5.0 [facility] 0.0 10 3/uL 0.0-0.7 [facility] 79 U/L 46-116 [facility] 32 U/L 14-59 [facility] 45 U/L High 15-37 [facility] 43.3 [facility] 0.18 10 3/uL High 0.00-0.03 [facility] 39.0 mg/dL High 7.0-18.0 [facility] 1.1 % High 0.0-0.5 [facility] 8.4 mg/dL Low 8.5-10.1 [facility] 109 mmol/L High 98-107 [facility] 27.0 mmol/L 21.0-32.0 [facility] 0.90 mg/dL 0.55-1.02 [facility] >60 >=60 mL/min/1.73 m 2 [facility] 126 mg/dL High 74-106 [facility] 5.0 mmol/L 3.5-5.1 [facility] 143 mmol/L 136-145 [facility] 0.3 mg/dL 0.2-1.0 [facility] 6.0 g/dL Low 6.4-8.2 [facility] Platelet mean volume Auto (B ld) [Entitic vol]on 01-24-2025 Platelet mean volume (Bld) [Entitic vol] 10.7 fL 9.5-13.5 [facility] Platelets Auto (Bld) [#/Vol] on 01-24-2025 Platelets (Bld) [#/Vol] 258 10 3/uL 150-450 [facility] RBC Auto (Bld) [#/Vol]on RBC (Bld) [#/Vol] 3.42 10 6/uL Low 4.20-5.40 [place] Serum or plasma albumin/glob ulin mass ratioon 01-24-2025 Albumin/Globulin [Mass ratio] 0.5 {ratio} [facility] Serum or plasma anion gap de terminationon 01-24-2025 Anion gap [Moles/Vol] 12.0 mmol/L Fi [facility] Basophils Auto (Bld) [#/Vol] on 01-23-2025 Basophils (Bld) [#/Vol] 0.0 10 3/uL 0.0-0.1 [facility] Basophils/100 WBC Auto (Bld) on 01-23-2025 Basophils/100 WBC (Bld) 0.1 % Low 0.2-2.0 [facility] Eosinophils/100 WBC Auto (Bl d)on 01-23-2025 Eosinophils/100 WBC (Bld) 0.0 % Low 0.9-7.0 [facility] Erythrocyte distribution wid th Auto (RBC) [Ratio]on 01-23-2025 Erythrocyte distribution width (RBC) [Ratio] 14.6 % 11.0-15.0 [facility] Estimated glomerular filtrat ion rate (GFR) non- Americanon 01-23-2025 GFR/1.73 sq M.predicted among non-blacks MDRD (S/P/Bld) [Vol rate/Area] 34 mL/min/{1.73_m2} Low >=60 mL/min/1.73 m 2 [facility] Globulin Calc (S) [Mass/Vol] on 01-23-2025 Globulin (S) [Mass/Vol] 4.0 g/dL [facility] Hematocrit Auto (Bld) [Volum e fraction]on 01-23-2025 Hematocrit (Bld) [Volume fraction] 34.8 % Low 36.0-48.0 [facility] Hemoglobin [Mass/volume] in Bloodon 01-23-2025 Hemoglobin (Bld) [Mass/Vol] 11.2 g/dL Low 12.0-16.0 [facility] Leukocytes [#/volume] correc sandra for nucleated erythrocytes in Blood by Automated counon 01-23-2025 WBC corrected for nucl RBC Auto (Bld) [#/Vol] 25.6 10 3/uL High 4.0-11.0 [facility] Lymphocytes Auto (Bld) [#/Vo l]on 01-23-2025 Lymphocytes (Bld) [#/Vol] 1.3 10 3/uL 1.2-3.8 [facility] Lymphocytes/100 WBC Auto (Bl d)on 01-23-2025 Lymphocytes/100 WBC (Bld) 5.0 % Low 20.5-60.0 [facility] MCH Auto (RBC) [Entitic mass ]on 01-23-2025 MCH (RBC) [Entitic mass] 31.4 pg 26.7-34.0 [facility] MCHC Auto (RBC) [Mass/Vol]on 01-23-2025 MCHC (RBC) [Mass/Vol] 32.2 g/dL 29.9-35.2 [facility] MCV Auto (RBC) [Entitic vol] on 01-23-2025 MCV (RBC) [Entitic vol] 97.5 fL 81.0-99.0 [facility] Monocytes Auto (Bld) [#/Vol] on 01-23-2025 Monocytes (Bld) [#/Vol] 0.8 10 3/uL 0.3-0.8 [facility] Monocytes/100 WBC Auto (Bld) on 01-23-2025 Monocytes/100 WBC (Bld) 3.0 % 1.7-12.0 [facility] Neutrophils Auto (Bld) [#/Vo l]on 01-23-2025 Neutrophils (Bld) [#/Vol] 22.7 10 3/uL High 1.4-6.5 [facility] Neutrophils/100 WBC Auto (Bl d)on 01-23-2025 Neutrophils/100 WBC (Bld) 89.0 % High 43.0-75.0 [facility] No Panel Informationon 01-23 6544.0 pg/mL Critically high <=1800.0 [facility] 2.3 g/dL Low 3.4-5.0 [facility] 0.0 10 3/uL 0.0-0.7 [facility] 74 U/L 46-116 [facility] 15 U/L 14-59 [facility] 20 U/L 15-37 [facility] 28.8 [facility] 0.74 10 3/uL High 0.00-0.03 [facility] 42.0 mg/dL High 7.0-18.0 [facility] 2.9 % High 0.0-0.5 [facility] 9.2 mg/dL 8.5-10.1 [facility] 106 mmol/L 98-107 [facility] 27.8 mmol/L 21.0-32.0 [facility] 1.46 mg/dL High 0.55-1.02 [facility] 41 Low >=60 mL/min/1.73 m 2 [facility] 118 mg/dL High 74-106 [facility] 5.7 mmol/L High 3.5-5.1 [facility] 142 mmol/L 136-145 [facility] 0.3 mg/dL 0.2-1.0 [facility] 6.3 g/dL Low 6.4-8.2 [facility] Platelet mean volume Auto (B ld) [Entitic vol]on 01-23-2025 Platelet mean volume (Bld) [Entitic vol] 10.3 fL 9.5-13.5 [facility] Platelets Auto (Bld) [#/Vol] on 01-23-2025 Platelets (Bld) [#/Vol] 247 10 3/uL 150-450 [facility] RBC Auto (Bld) [#/Vol]on RBC (Bld) [#/Vol] 3.57 10 6/uL Low 4.20-5.[facility] Serum or plasma albumin/glob ulin mass ratioon 01-23-2025 Albumin/Globulin [Mass ratio] 0.6 {ratio} [facility] Serum or plasma anion gap de terminationon 01-23-2025 Anion gap [Moles/Vol] 13.9 mmol/L Fi [facility] Basophils/100 WBC Manual cnt (Bld)on 01-22-2025 Basophils/100 WBC (Bld) 0.0 % Low 0.2-2.0 [facility] Eosinophils/100 WBC Manual c nt (Bld)on 01-22-2025 Eosinophils/100 WBC (Bld) 0.0 % Low 0.9-7.0 [facility] Erythrocyte distribution wid th Auto (RBC) [Ratio]on 01-22-2025 Erythrocyte distribution width (RBC) [Ratio] 14.5 % 11.0-15.0 [facility] Estimated glomerular filtrat ion rate (GFR) non- Americanon 01-22-2025 GFR/1.73 sq M.predicted among non-blacks MDRD (S/P/Bld) [Vol rate/Area] 40 mL/min/{1.73_m2} Low >=60 mL/min/1.73 m 2 [facility] Hematocrit Auto (Bld) [Volum e fraction]on 01-22-2025 Hematocrit (Bld) [Volume fraction] 42.7 % 36.0-48.0 [facility] Hemoglobin [Mass/volume] in Bloodon 01-22-2025 Hemoglobin (Bld) [Mass/Vol] 13.8 g/dL 12.0-16.0 [facility] Leukocytes [#/volume] correc sandra for nucleated erythrocytes in Blood by Automated counon 01-22-2025 WBC corrected for nucl RBC Auto (Bld) [#/Vol] 22.0 10 3/uL High 4.0-11.0 [facility] MCH Auto (RBC) [Entitic mass ]on 01-22-2025 MCH (RBC) [Entitic mass] 31.2 pg 26.7-34.0 [facility] MCHC Auto (RBC) [Mass/Vol]on 01-22-2025 MCHC (RBC) [Mass/Vol] 32.3 g/dL 29.9-35.2 [facility]ir [facility] MCV Auto (RBC) [Entitic vol] on 01-22-2025 MCV (RBC) [Entitic vol] 96.6 fL 81.0-99.0 [facility] No Panel Informationon 01-22 3.1 mmol/L Critically high 0.4-2.0 [facility] Negative [facility] 21.4 pg/mL 4.0-51.3 [facility] 7.7 10 3/uL High 0.0-0.3 [facility] 22.7 [facility] 35.0 % High 0-5 [facility] 29.0 mg/dL High 7.0-18.0 [facility] 0.00 10 3/uL 0.00-0.70 [facility] 10.1 mg/dL 8.5-10.1 [facility] 103 mmol/L 98-107 [facility] 27.9 mmol/L 21.0-32.0 [facility] 1.28 mg/dL High 0.55-1.02 [facility] 1.10 10 3/uL Low 1.20-3.80 [facility] 48 Low >=60 mL/min/1.73 m 2 [facility] 5.0 % Low 20.5-60.0 [facility] 0.88 10 3/uL High 0.30-0.80 [facility] 106 mg/dL 74-106 [facility] 4.0 % 1.7-12.0 [facility] 4.6 mmol/L 3.5-5.1 [facility] 12.32 10 3/uL High 1.4-6.5 [facility] 143 mmol/L 136-145 [facility] Platelet mean volume Auto (B ld) [Entitic vol]on 01-22-2025 Platelet mean volume (Bld) [Entitic vol] 10.5 fL 9.5-13.5 [facility] Platelets Auto (Bld) [#/Vol] on 01-22-2025 Platelets (Bld) [#/Vol] 308 10 3/uL 150-450 [facility] RBC Auto (Bld) [#/Vol]on RBC (Bld) [#/Vol] 4.42 10 6/uL 4.20-5.40 [place] Segmented neutrophils/100 WB C Manual cnt (Bld)on 01-22-2025 Segmented neutrophils/100 WBC (Bld) 56.0 % 43.0-75.0 [facility] Serum or plasma anion gap de terminationon 01-22-2025 Anion gap [Moles/Vol] 16.7 mmol/L [facility] Alanine aminotransferase [En zymatic activity/volume] in Serum or PlasmaOrdered By: Sheldon Xie on 11-14-2024 ALT [Catalytic activity/Vol] Alanine aminotransferase [Enzymatic activity/volume] in Serum or Plasma 7-52 [facility] Albumin [Mass/volume] in Ser um or Plasma by Bromocresol green (BCG) dye binding methoOrdered By: Sheldon Xie on 11-14-2024 Albumin BCG dye [Mass/Vol] Albumin [Mass/volume] in Serum or Plasma by Bromocresol green (BCG) dye binding metho 3.5-5.7 [facility] Alkaline phosphatase [Enzyma tic activity/volume] in Serum or PlasmaOrdered By: Sheldon Xie on 11-14-2024 ALP [Catalytic activity/Vol] Alkaline phosphatase [Enzymatic activity/volume] in Serum or Plasma 34-104 [facility] Aspartate aminotransferase [ Enzymatic activity/volume] in Serum or PlasmaOrdered By: Sheldon Xie on 11-14-2024 AST [Catalytic activity/Vol] Aspartate aminotransferase [Enzymatic activity/volume] in Serum or Plasma 13-39 [facility] Basophils Auto (Bld) [#/Vol] Ordered By: Sheldon Xie on 11-14-2024 Basophils (Bld) [#/Vol] Automated basoph il count 0.0-0.2 [facility] Basophils/100 WBC Auto (Bld) Ordered By: Sheldon Xie on 11-14-2024 Basophils/100 WBC (Bld) Automated basophil % . [facility] Bilirubin.total [Mass/volume ] in Serum or PlasmaOrdered By: Sheldon Xie on 11-14-2024 Bilirubin [Mass/Vol] Bilirubin.total [Mass/volume] in Serum or Plasma 0.3-1.0 [facility] Calcium [Mass/volume] in Ser um or PlasmaOrdered By: Sheldon Xie on 11-14-2024 Calcium [Mass/Vol] Calcium [Mass/volume ] in Serum or Plasma High 8.6-10.3 [facility] Carbon dioxide, total [Moles /volume] in Serum or PlasmaOrdered By: Sheldon Xie on 11-14-2024 CO2 [Moles/Vol] Carbon dioxide, tota l [Moles/volume] in Serum or Plasma High 21.0-31.0 [facility] Chloride [Moles/volume] in S cecilia or PlasmaOrdered By: Sheldon Xie on 11-14-2024 Chloride [Moles/Vol] Chloride [Moles/volume] in Serum or Plasma 98-107 [facility] Cholesterol [Mass/volume] in Serum or PlasmaOrdered By: Sheldon Xie on 11-14-2024 Cholesterol [Mass/Vol] Cholesterol [Mass/volume] in Serum or Plasma Low 140-200 [facility] Comment on above: Chol less than 200 m g/dl low riskChol 201-239 mg/dl borderline riskChol 240 mg/dl and greater high risk Cholesterol in HDL [Mass/vol ume] in Serum or PlasmaOrdered By: Sheldon Xie on 11-14-2024 Cholesterol in HDL [Mass/Vol] Serum or plasma high density lipoprotein (HDL) cholesterol measurement 23-92 [facility] Comment on above: HDL CHOL ATP-III CLA SSIFICATION Cardiovascular RiskHDL > or equal to 60 mg/dL LOWHDL < 40 mg/dL HIGH Cholesterol in LDL Calc [Mas s/Vol]Ordered By: Sheldon Xie on 11-14-2024 Cholesterol in LDL [Mass/Vol] Cholesterol in LDL [Mass/volume] in Serum or Plasma by calculation 0-100 [facility] Comment on above: LDL ATP III CLASSIFI CATIONLDL less than 100 mg/dL OptimalLDL 100-129 mg/dL Near or above optimalLDL 130-159 mg/dL Borderline highLDL 160-189 mg/dL HighLDL greater than 189 mg/dL Very high Cholesterol in VLDL Calc [Ma ss/Vol]Ordered By: Sheldon Xie on 11-14-2024 Cholesterol in VLDL [Mass/Vol] Cholesterol in VLDL [Mass/volume] in Serum or Plasma by calculation [facility] Complete Blood Count Auto Di ffon 11-14-2024 Basophils (Bld) [#/Vol] 0.1 10*3/uL Normal 0.0-0.2 [facility] Comment on above: Result Comment: PERF ORMED BY: [place] [id number] PATHOLOGIST SUPERVISOR [employer]KUMAR SINGH M.D. Performed By: #### C MP, LIPID, TSH3, CBC #### [address] Basophils/100 WBC (Bld) 1.0 % Normal . Martell hood [facility] Comment on above: Performed By: #### C MP, LIPID, TSH3, CBC #### [place] [address] [place] Eosinophils (Bld) [#/Vol] 0.3 10*3/uL Normal 0.0-0.45 [facility] Comment on above: Performed By: #### C MP, LIPID, TSH3, CBC #### [facility] [address] [place] [address] [place] Eosinophils/100 WBC (Bld) 2.9 % Normal . [facility] Comment on above: Performed By: #### C MP, LIPID, TSH3, CBC #### [address] Erythrocyte distribution width (RBC) [Ratio] 15.0 % Normal 11.9-15.3 [facility] Comment on above: Performed By: #### C MP, LIPID, TSH3, CBC #### [address] Hematocrit (Bld) [Volume fraction] 38.8 % Normal 34.0-46.4 [facility] Comment on above: Performed By: #### C MP, LIPID, TSH3, CBC #### [address] Hemoglobin (Bld) [Mass/Vol] 12.7 g/dL Normal 11.8-15.4 [facility] Comment on above: Performed By: #### C MP, LIPID, TSH3, CBC #### [address] Lymphocytes (Bld) [#/Vol] 1.6 10*3/uL Normal 1.00-4.8 [facility] Comment on above: Performed By: #### C MP, LIPID, TSH3, CBC #### [address] Lymphocytes/100 WBC (Bld) 16.8 % Normal . [facility] Comment on above: Performed By: #### C MP, LIPID, TSH3, CBC #### [address] MCH (RBC) [Entitic mass] 31.5 pg Normal 24.7-34.3 [facility] Comment on above: Performed By: #### C MP, LIPID, TSH3, CBC #### [address] MCV (RBC) [Entitic vol] 96.5 fL Normal 80-100 T [facility] Comment on above: Performed By: #### C MP, LIPID, TSH3, CBC #### [address] Mean Corpuscular HGB Conc 32.7 g/dL Normal 32.0-35.0 [facility] Comment on above: Performed By: #### C MP, LIPID, TSH3, CBC #### [address] Monocytes (Bld) [#/Vol] 0.7 10*3/uL Normal 0.0-0.8 [facility] Comment on above: Performed By: #### C MP, LIPID, TSH3, CBC #### [facility] [address] Monocytes/100 WBC (Bld) 7.0 % Normal . T sana [facility] Comment on above: Performed By: #### C MP, LIPID, TSH3, CBC #### [address] Neutrophils (Bld) [#/Vol] 6.9 10*3/uL Normal 1.8-7.7 [facility] Comment on above: Performed By: #### C MP, LIPID, TSH3, CBC #### [address] Neutrophils/100 WBC (Bld) 72.3 % Normal . [facility] Comment on above: Performed By: #### C MP, LIPID, TSH3, CBC #### [address] NRBC% 0.1 /100{WBC} Normal 0-0.5 [facility] Comment on above: Performed By: #### C MP, LIPID, TSH3, CBC #### [address] Platelet mean volume (Bld) [Entitic vol] 8.9 fL Normal 6.3-10.7 [facility] Comment on above: Performed By: #### C MP, LIPID, TSH3, CBC #### [place] [address] [place] Platelets (Bld) [#/Vol] 381 10*3/uL Normal 150-450 [facility] Comment on above: Performed By: #### C MP, LIPID, TSH3, CBC #### [address] RBC (Bld) [#/Vol] 4.02 10*6/uL Normal 3.60-5.00 [facility] Comment on above: Performed By: #### C MP, LIPID, TSH3, CBC #### [address] WBC (Bld) [#/Vol] 9.5 10*3/uL Normal 3.8-11.6 [facility] Comment on above: Performed By: #### C MP, LIPID, TSH3, CBC #### [address] Comprehensive Metabolic Pane julisa 11-14-2024 Albumin [Mass/Vol] 4.0 g/dL Normal 3.5-5.7 [facility] Comment on above: Performed By: #### C MP, LIPID, TSH3, CBC #### [address] Albumin/Globulin [Mass ratio] 1.2 {ratio} Normal [facility] Comment on above: Performed By: #### C MP, LIPID, TSH3, CBC #### [address] ALP [Catalytic activity/Vol] 64 U/L Normal 34-104 [facility] Comment on above: Performed By: #### C MP, LIPID, TSH3, CBC #### [address] ALT [Catalytic activity/Vol] 12 U/L Normal 7-52 [facility] Comment on above: Performed By: #### C MP, LIPID, TSH3, CBC #### [address] Anion gap [Moles/Vol] 12.7 mmol/L Normal 6.0-15.0 [facility] Comment on above: Performed By: #### C MP, LIPID, TSH3, CBC #### [address] AST [Catalytic activity/Vol] 20 U/L Normal 13-39 [facility] Comment on above: Performed By: #### C MP, LIPID, TSH3, CBC #### [address] [address] [place] Bilirubin [Mass/Vol] 0.6 mg/dL Normal 0.3-1.0 [facility] Comment on above: Performed By: #### C MP, LIPID, TSH3, CBC #### [address] Calcium [Mass/Vol] 10.4 mg/dL High 8.6-10.3 [facility] Comment on above: Performed By: #### C MP, LIPID, TSH3, CBC #### [address] Chloride [Moles/Vol] 102 mmol/L Normal 98-107 [facility] Comment on above: Performed By: #### C MP, LIPID, TSH3, CBC #### [address] CO2 [Moles/Vol] 31.8 mmol/L High 21.0-31.0 [facility] Comment on above: Performed By: #### C MP, LIPID, TSH3, CBC #### [address] Creatinine [Mass/Vol] 1.03 mg/dL Normal 0.60-1.20 [facility] Comment on above: Performed By: #### C MP, LIPID, TSH3, CBC #### [address] Estimated GFR 53.951 mL/Min Normal [facility] Comment on above: Performed By: #### C MP, LIPID, TSH3, CBC #### [address] Globulin (S) [Mass/Vol] 3.3 g/dL Normal T [facility] Comment on above: Performed By: #### C MP, LIPID, TSH3, CBC #### [address] Glucose [Mass/Vol] 80 mg/dL Normal 70-100 [facility] Comment on above: Result Comment: [place] Glucose Reference Range is dependent on time and content of last meal. Glucose of more than 200 mg/dL in a nonstressed, ambulatory subject supports the diagnosis of Diabetes Mellitus. ADA recommended reference range Performed By: #### C MP, LIPID, TSH3, CBC #### [facility] [address] Potassium [Moles/Vol] 4.5 mmol/L Normal 3.5-5.1 [facility] Comment on above: Performed By: #### C MP, LIPID, TSH3, CBC #### [address] Protein [Mass/Vol] 7.3 g/dL Normal 6.4-8.9 [facility] Comment on above: Performed By: #### C MP, LIPID, TSH3, CBC #### [address] Sodium [Moles/Vol] 142 mmol/L Normal 136-145 [facility] Comment on above: Performed By: #### C MP, LIPID, TSH3, CBC #### [address] Urea nitrogen [Mass/Vol] 34 mg/dL High 7-25 [facility] Comment on above: Performed By: #### C MP, LIPID, TSH3, CBC #### [address] Creatinine [Mass/volume] in Serum or PlasmaOrdered By: Sheldon Xie on 11-14-2024 Creatinine [Mass/Vol] Creatinine [Mass/volume] in Serum or Plasma 0.60-1.20 [facility] Eosinophils Auto (Bld) [#/Vo l]Ordered By: Sheldon Xie on 11-14-2024 Eosinophils (Bld) [#/Vol] Automated eosinophil count 0.0-0.45 [facility] Eosinophils/100 WBC Auto (Bl d)Ordered By: Sheldon Xie on 11-14-2024 Eosinophils/100 WBC (Bld) Automated eosinophil % . [facility] Erythrocyte distribution wid th Auto (RBC) [Ratio]Ordered By: Sheldon iXe on 11-14-2024 Erythrocyte distribution width (RBC) [Ratio] Erythrocyte distribution width [Ratio] by Automated count 11.9-15.3 [facility] Globulin Calc (S) [Mass/Vol] Ordered By: Sheldon Xie on 11-14-2024 Globulin (S) [Mass/Vol] Serum globulin measurement by calculation (mass/volume) [facility] Glucose [Mass/volume] in Ser um or PlasmaOrdered By: Sheldon Xie on 11-14-2024 Glucose [Mass/Vol] Glucose [Mass/volume ] in Serum or Plasma 70-100 [facility] Comment on above: ADA recommended refe rence rangeRandom Glucose Reference Range is dependent on time and content of last meal. Glucose of more than 200 mg/dL in a nonstressed, ambulatory subject supports the diagnosis of Diabetes Mellitus. Hematocrit Auto (Bld) [Volum e fraction]Ordered By: Sheldon Xie on 11-14-2024 Hematocrit (Bld) [Volume fraction] Hematocrit [Volume Fraction] of Blood by Automated count 34.0-46.4 [facility] Hemoglobin [Mass/volume] in BloodOrdered By: Sheldon Xie on 11-14-2024 Hemoglobin (Bld) [Mass/Vol] Hemoglobin [Mass/volume] in Blood 11.8-15.4 [facility] Leukocytes [#/volume] correc sandra for nucleated erythrocytes in Blood by Automated counOrdered By: Sheldon Xie on 11-14-2024 WBC corrected for nucl RBC Auto (Bld) [#/Vol] Leukocytes [#/volume] corrected for nucleated erythrocytes in Blood by Automated coun 3.8-11.6 [facility] Lipid Panelon 11-14-2024 Cholesterol [Mass/Vol] 133 mg/dL Low 140-200 [facility] Comment on above: Result Comment: Chol less than 200 mg/dl low risk Chol 201-239 mg/dl borderline risk Chol 240 mg/dl and greater high risk Performed By: #### C MP, LIPID, TSH3, CBC #### [facility] [address] Cholesterol in HDL [Mass/Vol] 46 mg/dL Normal 23-92 [facility] Comment on above: Result Comment: HDL CHOL ATP-III CLASSIFICATION Cardiovascular Risk HDL > or equal to 60 mg/dL LOW HDL < 40 mg/dL HIGH Performed By: #### C MP, LIPID, TSH3, CBC #### [facility] [address] Cholesterol.total/Renu sterol in HDL [Mass ratio] 2.9 {ratio} Normal <5.0 [facility] Comment on above: Performed By: #### C MP, LIPID, TSH3, CBC #### [facility] [address] LDL Cholesterol,Calculated 60 mg/dL Normal 0-100 [facility] Comment on above: Result Comment: LDL ATP III CLASSIFICATION LDL less than 100 mg/dL Optimal LDL 100-129 mg/dL Near or above optimal LDL 130-159 mg/dL Borderline high LDL 160-189 mg/dL High LDL greater than 189 mg/dL Very high Performed By: #### C MP, LIPID, TSH3, CBC #### [facility] [address] Triglyceride w/Reflex 133 mg/dL Normal 0-149 [facility] Comment on above: Result Comment: TRIG ATP III CLASSIFICATION TRIG less than 150 mg/dL Normal TRIG 150-199 mg/dL Borderline high TRIG 200-500 mg/dL High TRIG greater than 500 mg/dL Very high Standard traceable to the Center for Disease Conrtrol and Prevention (CDC) test method. Performed By: #### C MP, LIPID, TSH3, CBC #### [facility] [address] VLDL CHOLESTEROL 26 mg/dL Normal [facility] Comment on above: Performed By: #### C MP, LIPID, TSH3, CBC #### [facility] [address] Lymphocytes Auto (Bld) [#/Vo l]Ordered By: Sheldon Xie on 11-14-2024 Lymphocytes (Bld) [#/Vol] Lymphocytes [#/volume] in Blood by Automated count 1.00-4.8 [facility] Lymphocytes/100 WBC Auto (Bl d)Ordered By: Sheldon Xie on 11-14-2024 Lymphocytes/100 WBC (Bld) Lymphocytes/100 leukocytes in Blood by Automated count . [facility] MCH Auto (RBC) [Entitic mass ]Ordered By: Sheldon Xie on 11-14-2024 MCH (RBC) [Entitic mass] MCH [Entitic mass] by Automated count 24.7-34.3 [facility] MCHC Auto (RBC) [Mass/Vol]Or dered By: Sheldon Xie on 11-14-2024 MCHC (RBC) [Mass/Vol] MCHC [Mass/volume] by Automated count 32.0-35.0 [facility] MCV Auto (RBC) [Entitic vol] Ordered By: Sheldon Xie on 11-14-2024 MCV (RBC) [Entitic vol] MCV [Entitic vol ume] by Automated count 80-100 [facility] Monocytes Auto (Bld) [#/Vol] Ordered By: Sheldon Xie on 11-14-2024 Monocytes (Bld) [#/Vol] Automated blood monocyte count 0.0-0.8 [facility] Monocytes/100 WBC Auto (Bld) Ordered By: Sheldon Xie on 11-14-2024 Monocytes/100 WBC (Bld) Automated monocyte % . [facility] Neutrophils Auto (Bld) [#/Vo l]Ordered By: Sheldon Xie on 11-14-2024 Neutrophils (Bld) [#/Vol] Neutrophils [#/volume] in Blood by Automated count 1.8-7.7 [facility] Neutrophils/100 WBC Auto (Bl d)Ordered By: Sheldon Xie on 11-14-2024 Neutrophils/100 WBC (Bld) Automated neutrophil % . [facility] No Panel InformationOrdered By: Sheldon Xie on 11-14-2024 Estimated GFR (CKD-EPI) 53.951 mL/Min [facility] Creatinine Clearance (Chem N/A [facility] Nucleated erythrocytes [Pres ence] in Blood by Automated countOrdered By: Sheldon Xie on 11-14-2024 Nucleated RBC Auto Ql (Bld) Nucleated erythrocytes [Presence] in Blood by Automated count 0-0.5 [facility] Platelet mean volume Auto (B ld) [Entitic vol]Ordered By: Sheldon Xie on 11-14-2024 Platelet mean volume (Bld) [Entitic vol] Platelet mean volume [Entitic volume] in Blood by Automated count 6.3-10.7 [facility] Platelets Auto (Bld) [#/Vol] Ordered By: Sheldon Xie on 11-14-2024 Platelets (Bld) [#/Vol] Platelets [#/vol ume] in Blood by Automated count 150-450 [facility] Potassium [Moles/volume] in Serum or PlasmaOrdered By: Sheldon Xie on 11-14-2024 Potassium [Moles/Vol] Potassium [Moles/volume] in Serum or Plasma 3.5-5.1 [facility] Protein [Mass/volume] in Ser um or PlasmaOrdered By: Sheldon Xie on 11-14-2024 Protein [Mass/Vol] Protein [Mass/volume ] in Serum or Plasma 6.4-8.9 [facility] RBC Auto (Bld) [#/Vol]Ordere d By: Sheldon Xie on 11-14-2024 RBC (Bld) [#/Vol] Erythrocytes [#/volume] in Blood by Automated count 3.60-5.00 [facility] Serum or plasma albumin/glob ulin mass ratioOrdered By: Sheldon Xie on 11-14-2024 Albumin/Globulin [Mass ratio] Serum or plasma albumin/globulin mass ratio [facility] Serum or plasma anion gap de terminationOrdered By: Sheldon Xie on 11-14-2024 Anion gap [Moles/Vol] Serum or plasma an ion gap determination 6.0-15.0 [facility] Serum or plasma total choles terol/high density lipoprotein (HDL) cholesterol mass ratOrdered By: Sheldon Xie on 11-14-2024 Cholesterol.total/Renu sterol in HDL [Mass ratio] Serum or plasma total cholesterol/high density lipoprotein (HDL) cholesterol mass rat <5.0 [facility] Sodium [Moles/volume] in Ser um or PlasmaOrdered By: Sheldon Xie on 11-14-2024 Sodium [Moles/Vol] Sodium [Moles/volume ] in Serum or Plasma 136-145 [facility] Thyroid Stimulating Hormoneo n 11-14-2024 TSH Qn 3.33 m[IU]/L Normal 0.45-5.33 [facility] Comment on above: Result Comment: PERF ORMED BY: [facility] [address] [place] [address] PATHOLOGIST SUPERVISOR [employer] SINGH M.D. Performed By: #### C MP, LIPID, TSH3, CBC #### [facility] [address] Thyrotropin [Units/volume] i n Serum or PlasmaOrdered By: Sheldon Xie on 11-14-2024 TSH Qn Thyrotropin [Units/volume] in Serum or Plasma 0.45-5.33 [facility] Triglyceride [Mass/volume] i n Serum or PlasmaOrdered By: Sheldon Xie on 11-14-2024 Triglyceride [Mass/Vol] Triglyceride [Mass/volume] in Serum or Plasma 0-149 [facility] Comment on above: TRIG ATP [...] [Mass/volume] in Serum or Plasma High 7-25 [facility] WBC Auto (Bld) [#/Vol]Ordere d By: Sheldon Xie on 11-14-2024 WBC (Bld) [#/Vol] Leukocytes [#/volume ] in Blood by Automated count 3.8-11.6 [facility] No Panel Informationon 09-20 Pure [...] (GFR) non- Low >=60 mL/min/1.73 m 2 [facility] Globulin Calc (S) [Mass/Vol] on 07-08-2024 Globulin (S) [Mass/Vol] Serum globulin measurement by calculation (mass/volume) [facility] Laboratory - Chemistry and C hemistry - challengeon 07-08-2024 Albumin [Mass/Vol] 3.4 g/dL 3.4-5.0 [facility] ALP [Catalytic activity/Vol] 74 U/L 46-116 [facility] ALT [Catalytic activity/Vol] 15 U/L 14-59 [facility] AST [Catalytic activity/Vol] 19 U/L 15-37 [facility] Bilirubin [Mass/Vol] 0.4 mg/dL 0.2-1.0 [facility] Calcium [Mass/Vol] 9.6 mg/dL 8.5-10.1 [facility] Chloride [Moles/Vol] 107 mmol/L 98-107 [facility] CO2 [Moles/Vol] 29.7 mmol/L 21.0-32.0 [facility] Creatinine [Mass/Vol] 1.28 mg/dL High 0.55-1.02 [facility] GFR/1.73 sq M.predicted MDRD (S/P/Bld) [Vol rate/Area] 48 mL/min/{1.73_m2} Low >=60 mL/min/1.73 m 2 [facility] Glucose [Mass/Vol] 113 mg/dL High 74-106 [facility] Potassium [Moles/Vol] 4.9 mmol/L 3.5-5.1 [facility] Protein [Mass/Vol] 6.9 g/dL 6.4-8.2 [facility] Sodium [Moles/Vol] 145 mmol/L 136-145 [facility] Urea nitrogen [Mass/Vol] 25.0 mg/dL High 7.0-18.0 [facility] Urea nitrogen/Creatinine [Mass ratio] 19.5 mg/mg [facility] Serum or plasma albumin/glob ulin mass ratioon 07-08-2024 Albumin/Globulin [Mass ratio] Serum or plasma albumin/globulin mass ratio [facility] Serum or plasma anion gap de terminationon 07-08-2024 Anion gap [Moles/Vol] Serum or plasma an ion gap determination [facility] XR lumbar spine 6V w bending on 06-18-2024 XR lumbar spine 6V w bending [facility] [place] [address] [place] [id number] XRay Report Signed Patient: Aleksandr Sanchez MR#: [id number] : 1940 Acct:[id number] Age/Sex: 83 / F ADM Date: 06/18/24 Loc: XDS Room: Type: [facility] CLI Attending Dr: Sheldon Xie DO Copies [...] Gray Mukherjee M.D.06/18/2024 6:14 PM Dictation Location: [place] [address] Transcribed By: [facility] 06/18/241813 Dictated By: Gray Mukherjee II, MD 06/18/241812 Signed By: 06/18/241813 Normal [facility] XR ribs RT 2Von 06-18-2024 XR ribs RT 2V [facility] Main [place] [address] [place] [address] XRay Report Signed Patient: Aleksandr Sanchez MR#: [id number] : 1940 Acct:[id number] Age/Sex: 83 / F ADM Date: 06/18/24 Loc: [facility]: [facility]: Sheldon Xie DO Copies to: Sheldon Xie DO Ordering Provider: Sheldon Xie DO Date of Service: 06/18/24 XR/XR cervical spine 5V*: W19.XXXA - Unspecified fall, initial encounter ([id number]) XR/XR ribs RT 2V: W19.XXXA - Unspecified fall, initial encounter ([id number]) XR/XR sacrum coccyx min 2V: W19.XXXA - [...] Latonya Cueva M.D.06/18/2024 11:09 PM Dictation Location: [place] [address] Transcribed By: BRANDON 06/18/242308 Dictated By: Latonya Cueva MD 06/18/242299 Signed By: 06/18/242308 Normal [facility] Influenza virus B Ag [Presen ce] in Upper respiratory specimen by Rapid immunoassayon 05-16-2024 FLUBV Ag IA.rapid Ql (Nph) Negative [facility] FLUBV Ag IA.rapid Ql (Nph) Influenza virus B Ag [Presence] in Upper respiratory specimen by Rapid immunoassay [facility] No Panel InformationOrdered By: Sheldon Xie on 05-16-2024 Quick Strep (POC) [facility] RSV (POC) [facility] Quick Strep (POC) [facility] RSV (POC) [facility] No Panel Informationon 05-16 Influenza Type A (Rapid) Negative [facility] POC SARS CoV-2 Antigen Negative [facility] XR chest 2V*on 05-16-2024 XR chest 2V* [facility] Main [place] [address] [place] [address] XRay Report Signed Patient: Aleksandr Sanchez MR#: [id number] : 1940 Acct:[id number] Age/Sex: 83 / F ADM Date: 05/16/24 Loc: [facility] Room: Type: [facility] Attending Dr: Sheldon Xie DO Copies [...] Latonya Cueva M.D.05/16/2024 1:54 PM Dictation Location: [place] [address] Transcribed By: [facility] 05/16/24 1354 Dictated By: Latonya Cueva MD 05/16/24 1351 Signed By: 05/16/24 1354 Normal [facility] Alanine aminotransferase [En zymatic activity/volume] in Serum or PlasmaOrdered By: Sheldon Xie on 05-15-2024 ALT [Catalytic activity/Vol] 10 U/L Normal [facility] Comment on above: Performed By: #### L IPID, CBC, CMP, TSH3 #### [address] ALT [Catalytic activity/Vol] Alanine aminotransferase [Enzymatic activity/volume] in Serum or Plasma [facility] Albumin [Mass/volume] in Ser um or Plasma by Bromocresol green (BCG) dye binding methoOrdered By: Sheldon Xie on 05-15-2024 Albumin BCG dye [Mass/Vol] 3.8 g/dL 3.5-5.7 [facility] Albumin BCG dye [Mass/Vol] Albumin [Mass/volume] in Serum or Plasma by Bromocresol green (BCG) dye binding metho 3.5-5.7 [facility] Alkaline phosphatase [Enzyma tic activity/volume] in Serum or PlasmaOrdered By: Sheldon Xie on 05-15-2024 ALP [Catalytic activity/Vol] 73 U/L Normal [facility] Comment on above: Performed By: #### L IPID, CBC, CMP, TSH3 #### [address] ALP [Catalytic activity/Vol] Alkaline phosphatase [Enzymatic activity/volume] in Serum or Plasma [facility] Aspartate aminotransferase [ Enzymatic activity/volume] in Serum or PlasmaOrdered By: Sheldon Xie on 05-15-2024 AST [Catalytic activity/Vol] 16 U/L Normal [facility] Comment on above: Performed By: #### L IPID, CBC, CMP, TSH3 #### [address] AST [Catalytic activity/Vol] Aspartate aminotransferase [Enzymatic activity/volume] in Serum or Plasma [facility] Automated basophil %Ordered By: Sheldon Xie on 05-15-2024 Basophils/100 WBC (Bld) 1.6 % Normal . [facility] Comment on above: Performed By: #### L IPID, CBC, CMP, TSH3 #### [address] Automated basophil countOrde red By: Sheldon Xie on 05-15-2024 Basophils (Bld) [#/Vol] 0.2 10*3/uL Normal 0.0-0.2 [facility] Comment on above: Result Comment: PERF ORMED BY: [place] [id number] PATHOLOGIST [employer] J[employer]SE ROMO M.D. Performed By: #### L IPID, CBC, CMP, TSH3 #### [address] Automated blood monocyte cou ntOrdered By: Sheldon Xie on 05-15-2024 Monocytes (Bld) [#/Vol] 0.8 10*3/uL Normal 0.0-0.8 [facility] Comment on above: Performed By: #### L IPID, CBC, CMP, TSH3 #### [address] Automated eosinophil %Ordere d By: Sheldon Xie on 05-15-2024 Eosinophils/100 WBC (Bld) 1.7 % Normal . [facility] Comment on above: Performed By: #### L IPID, CBC, CMP, TSH3 #### [address] Automated eosinophil countOr dered By: Sheldon Xie on 05-15-2024 Eosinophils (Bld) [#/Vol] 0.2 10*3/uL Normal 0.0-0.45 [facility] Comment on above: Performed By: #### L IPID, CBC, CMP, TSH3 #### [address] Automated monocyte %Ordered By: Sheldon Xie on 05-15-2024 Monocytes/100 WBC (Bld) 5.9 % Normal . [facility] Comment on above: Performed By: #### L IPID, CBC, CMP, TSH3 #### [address] Automated neutrophil %Ordere d By: Sheldon Xie on 05-15-2024 Neutrophils/100 WBC (Bld) 76.5 % Normal . [facility] Comment on above: Performed By: #### L IPID, CBC, CMP, TSH3 #### [address] Basophils Auto (Bld) [#/Vol] Ordered By: Sheldon Xie on 05-15-2024 Basophils (Bld) [#/Vol] Automated basoph il count 0.0-0.2 [facility] Basophils/100 WBC Auto (Bld) Ordered By: Sheldon Xie on 05-15-2024 Basophils/100 WBC (Bld) Automated basophil % . [facility] Bilirubin.total [Mass/volume ] in Serum or PlasmaOrdered By: Sheldon Xie on 05-15-2024 Bilirubin [Mass/Vol] 0.4 mg/dL Normal 0.3-1.0 [facility] Comment on above: Performed By: #### L IPID, CBC, CMP, TSH3 #### [facility] [address] [place] [id number] [facility] Bilirubin [Mass/Vol] Bilirubin.total [Mass/volume] in Serum or Plasma 0.3-1.0 [facility] Calcium [Mass/volume] in Ser um or PlasmaOrdered By: Sheldon Xie on 05-15-2024 Calcium [Mass/Vol] 9.6 mg/dL Normal 8.6-10.3 [facility] Comment on above: Performed By: #### L IPID, CBC, CMP, TSH3 #### [facility] [address] [place] [id number] [facility] Calcium [Mass/Vol] Calcium [Mass/volume ] in Serum or Plasma 8.6-10.3 [facility] Carbon dioxide, total [Moles /volume] in Serum or PlasmaOrdered By: Sheldon Xie on 05-15-2024 CO2 [Moles/Vol] 28.7 mmol/L Normal 21.0-31.0 [facility] Comment on above: Performed By: #### L IPID, CBC, CMP, TSH3 #### [facility] [address] [place] [id number] [place] CO2 [Moles/Vol] Carbon dioxide, tota l [Moles/volume] in Serum or Plasma 21.0-31.0 [facility] Chloride [Moles/volume] in S cecilia or PlasmaOrdered By: Sheldon Xie on 05-15-2024 Chloride [Moles/Vol] 105 mmol/L Normal 98-107 [facility] Comment on above: Performed By: #### L IPID, CBC, CMP, TSH3 #### [facility] [address] [place] [id number] [place] Chloride [Moles/Vol] Chloride [Moles/volume] in Serum or Plasma 98-107 [facility] Cholesterol [Mass/volume] in Serum or PlasmaOrdered By: Sheldon Xie on 05-15-2024 Cholesterol [Mass/Vol] 137 mg/dL Low 140-200 [facility] Comment on above: Chol less than 200 m g/dl low riskChol 201-239 mg/dl borderline riskChol 240 mg/dl and greater high risk Result Comment: Chol less than 200 mg/dl low risk Chol 201-239 mg/dl borderline risk Chol 240 mg/dl and greater high risk Performed By: #### L IPID, CBC, CMP, TSH3 #### [facility] [address] Cholesterol [Mass/Vol] Cholesterol [Mass/volume] in Serum or Plasma Low 140-200 [facility] Comment on above: Chol less than 200 m g/dl low riskChol 201-239 mg/dl borderline riskChol 240 mg/dl and greater high risk Cholesterol in HDL [Mass/vol ume] in Serum or PlasmaOrdered By: Sheldon Xie on 05-15-2024 Cholesterol in HDL [Mass/Vol] Serum or plasma high density lipoprotein (HDL) cholesterol measurement 23- [facility] Comment on above: HDL CHOL ATP-III CLA SSIFICATION Cardiovascular RiskHDL > or equal to 60 mg/dL LOWHDL < 40 mg/dL HIGH Cholesterol in LDL Calc [Mas s/Vol]Ordered By: Sheldon Xie on 05-15-2024 Cholesterol in LDL [Mass/Vol] 73 mg/dL 0-100 [facility] Comment on above: LDL ATP III CLASSIFI CATIONLDL less than 100 mg/dL OptimalLDL 100-129 mg/dL Near or above optimalLDL 130-159 mg/dL Borderline highLDL 160-189 mg/dL HighLDL greater than 189 mg/dL Very high Cholesterol in LDL [Mass/Vol] Cholesterol in LDL [Mass/volume] in Serum or Plasma by calculation 0-100 [facility] Comment on above: LDL ATP III CLASSIFI CATIONLDL less than 100 mg/dL OptimalLDL 100-129 mg/dL Near or above optimalLDL 130-159 mg/dL Borderline highLDL 160-189 mg/dL HighLDL greater than 189 mg/dL Very high Cholesterol in VLDL Calc [Ma ss/Vol]Ordered By: Sheldon Xie on 05-15-2024 Cholesterol in VLDL [Mass/Vol] 25 mg/dL [facility] Cholesterol in VLDL [Mass/Vol] Cholesterol in VLDL [Mass/volume] in Serum or Plasma by calculation [facility] Complete Blood Count Auto Di ffon 05-15-2024 Mean Corpuscular HGB Conc 32.9 g/dL Normal 32.0-35.0 [facility] Comment on above: Performed By: #### L IPID, CBC, CMP, TSH3 #### [address] NRBC% 0.0 /100{WBC} Normal 0-0.5 [facility] Comment on above: Performed By: #### L IPID, CBC, CMP, TSH3 #### [address] Comprehensive Metabolic Pane julisa 05-15-2024 Albumin [Mass/Vol] 3.8 g/dL Normal 3.5-5.7 [facility] Comment on above: Performed By: #### L IPID, CBC, CMP, TSH3 #### [address] GFR/1.73 sq M.predicted MDRD (S/P/Bld) [Vol rate/Area] mL/min/{1.73_m2} Normal [facility] Comment on above: Performed By: #### L IPID, CBC, CMP, TSH3 #### [address] Creatinine [Mass/volume] in Serum or PlasmaOrdered By: Sheldon Xie on 05-15-2024 Creatinine [Mass/Vol] 0.90 mg/dL Normal 0.60-1.20 [facility] Comment on above: Performed By: #### L IPID, CBC, CMP, TSH3 #### [address] Creatinine [Mass/Vol] Creatinine [Mass/volume] in Serum or Plasma 0.60-1.20 [facility] Eosinophils Auto (Bld) [#/Vo l]Ordered By: Sheldon Xie on 05-15-2024 Eosinophils (Bld) [#/Vol] Automated eosinophil count 0.0-0.45 [facility] Eosinophils/100 WBC Auto (Bl d)Ordered By: Sheldon Xie on 05-15-2024 Eosinophils/100 WBC (Bld) Automated eosinophil % . [facility] Erythrocyte distribution wid th Auto (RBC) [Ratio]Ordered By: Sheldon Xie on 05-15-2024 Erythrocyte distribution width (RBC) [Ratio] Erythrocyte distribution width [Ratio] by Automated count 11.9-15.3 [facility] Erythrocyte distribution wid th [Ratio] by Automated countOrdered By: Sheldon Xie on 05-15-2024 Erythrocyte distribution width (RBC) [Ratio] 14.1 % Normal 11.9-15.3 [facility] Comment on above: Performed By: #### L IPID, CBC, CMP, TSH3 #### [facility] [address] [place] [address] Erythrocytes [#/volume] in B lood by Automated countOrdered By: Sheldon Xie on 05-15-2024 RBC (Bld) [#/Vol] 3.82 10*6/uL Normal 3.60-5.00 [place] Comment on above: Performed By: #### L IPID, CBC, CMP, TSH3 #### [facility] [address] [place] [address] Globulin Calc (S) [Mass/Vol] Ordered By: Sheldon Xie on 05-15-2024 Globulin (S) [Mass/Vol] Serum globulin measurement by calculation (mass/volume) [facility] Glucose [Mass/volume] in Ser um or PlasmaOrdered By: Sheldon Xie on 05-15-2024 Glucose [Mass/Vol] 91 mg/dL Normal 70-100 [facility] Comment on above: ADA recommended refe rence rangeRandom Glucose Reference Range is dependent on time and content of last meal. Glucose of more than 200 mg/dL in a nonstressed, ambulatory subject supports the diagnosis of Diabetes Mellitus. Result Comment: [place] om Glucose Reference Range is dependent on time and content of last meal. Glucose of more than 200 mg/dL in a nonstressed, ambulatory subject supports the diagnosis of Diabetes Mellitus. ADA recommended reference range Performed By: #### L IPID, CBC, CMP, TSH3 #### [facility] [address] Glucose [Mass/Vol] Glucose [Mass/volume ] in Serum or Plasma 70-100 [facility] Comment on above: ADA recommended refe rence rangeRandom Glucose Reference Range is dependent on time and content of last meal. Glucose of more than 200 mg/dL in a nonstressed, ambulatory subject supports the diagnosis of Diabetes Mellitus. Hematocrit Auto (Bld) [Volum e fraction]Ordered By: Sheldon Xie on 05-15-2024 Hematocrit (Bld) [Volume fraction] Hematocrit [Volume Fraction] of Blood by Automated count 34.0-46.4 [facility] Hematocrit [Volume Fraction] of Blood by Automated countOrdered By: Sheldon Xie on 05-15-2024 Hematocrit (Bld) [Volume fraction] 36.7 % Normal 34.0-46.4 [facility] Comment on above: Performed By: #### L IPID, CBC, CMP, TSH3 #### [facility] [address] [place] [address] Hemoglobin [Mass/volume] in BloodOrdered By: Sheldon Xie on 05-15-2024 Hemoglobin (Bld) [Mass/Vol] 12.1 g/dL Normal 11.8-15.4 [facility] Comment on above: Performed By: #### L IPID, CBC, CMP, TSH3 #### [address] Hemoglobin (Bld) [Mass/Vol] Hemoglobin [Mass/volume] in Blood 11.8-15.4 [facility] Leukocytes [#/volume] correc sandra for nucleated erythrocytes in Blood by Automated counOrdered By: Sheldon Xie on 05-15-2024 WBC corrected for nucl RBC Auto (Bld) [#/Vol] 12.9 10*3/uL High 3.8-11.6 [facility] WBC corrected for nucl RBC Auto (Bld) [#/Vol] Leukocytes [#/volume] corrected for nucleated erythrocytes in Blood by Automated coun High 3.8-11.6 [facility] Leukocytes [#/volume] in Blo od by Automated countOrdered By: Sheldon Xie on 05-15-2024 WBC (Bld) [#/Vol] 12.9 10*3/uL High 3.8-11.6 [place] Comment on above: Performed By: #### L IPID, CBC, CMP, TSH3 #### [address] Lipid Panelon 05-15-2024 LDL Cholesterol,Calculated 73 mg/dL Normal 0-100 [facility] Comment on above: Result Comment: LDL ATP III CLASSIFICATION LDL less than 100 mg/dL Optimal LDL 100-129 mg/dL Near or above optimal LDL 130-159 mg/dL Borderline high LDL 160-189 mg/dL High LDL greater than 189 mg/dL Very high Performed By: #### L IPID, CBC, CMP, TSH3 #### [address] Triglyceride w/Reflex 129 mg/dL Normal 0-149 [facility] Comment on above: Result Comment: TRIG ATP III CLASSIFICATION TRIG less than 150 mg/dL Normal TRIG 150-199 mg/dL Borderline high TRIG 200-500 mg/dL High TRIG greater than 500 mg/dL Very high Standard traceable to the Center for Disease Conrtrol and Prevention (CDC) test method. Performed By: #### L IPID, CBC, CMP, TSH3 #### [address] VLDL CHOLESTEROL 25 mg/dL Normal [facility] Comment on above: Performed By: #### L IPID, CBC, CMP, TSH3 #### [address] Lymphocytes Auto (Bld) [#/Vo l]Ordered By: Sheldon Xie on 05-15-2024 Lymphocytes (Bld) [#/Vol] Lymphocytes [#/volume] in Blood by Automated count 1.00-4.8 [facility] Lymphocytes [#/volume] in Bl ood by Automated countOrdered By: Sheldon Xie on 05-15-2024 Lymphocytes (Bld) [#/Vol] 1.8 10*3/uL Normal 1.00-4.8 [facility] Comment on above: Performed By: #### L IPID, CBC, CMP, TSH3 #### [facility] [address] Lymphocytes/100 WBC Auto (Bl d)Ordered By: Sheldon Xie on 05-15-2024 Lymphocytes/100 WBC (Bld) Lymphocytes/100 leukocytes in Blood by Automated count . [facility] Lymphocytes/100 leukocytes i n Blood by Automated countOrdered By: Sheldon Xie on 05-15-2024 Lymphocytes/100 WBC (Bld) 14.3 % Normal . [facility] Comment on above: Performed By: #### L IPID, CBC, CMP, TSH3 #### [facility] [address] [place] [address] MCH Auto (RBC) [Entitic mass ]Ordered By: Sheldon Xie on 05-15-2024 MCH (RBC) [Entitic mass] MCH [Entitic mass] by Automated count 24.7-34.3 [facility] MCH [Entitic mass] by Automa sandra countOrdered By: Sheldon Xie on 05-15-2024 MCH (RBC) [Entitic mass] 31.6 pg Normal 24.7-34.3 [facility] Comment on above: Performed By: #### L IPID, CBC, CMP, TSH3 #### [facility] [address] [place] [address] MCHC Auto (RBC) [Mass/Vol]Or dered By: Sheldon Xie on 05-15-2024 MCHC (RBC) [Mass/Vol] 32.9 g/dL 32.0-35.0 [facility] MCHC (RBC) [Mass/Vol] MCHC [Mass/volume] by Automated count 32.0-35.0 [facility] MCV Auto (RBC) [Entitic vol] Ordered By: Sheldon Xie on 05-15-2024 MCV (RBC) [Entitic vol] MCV [Entitic vol ume] by Automated count 80-100 [facility] MCV [Entitic volume] by Auto mated countOrdered By: Sheldon Xie on 05-15-2024 MCV (RBC) [Entitic vol] 96.0 fL Normal 80-100 [facility] Comment on above: Performed By: #### L IPID, CBC, CMP, TSH3 #### [facility] [address] Monocytes Auto (Bld) [#/Vol] Ordered By: Sheldon Xie on 05-15-2024 Monocytes (Bld) [#/Vol] Automated blood monocyte count 0.0-0.8 [facility] Monocytes/100 WBC Auto (Bld) Ordered By: Sheldon Xie on 05-15-2024 Monocytes/100 WBC (Bld) Automated monocyte % . [facility] Neutrophils Auto (Bld) [#/Vo l]Ordered By: Sheldon Xie on 05-15-2024 Neutrophils (Bld) [#/Vol] Neutrophils [#/volume] in Blood by Automated count High 1.8-7.7 [facility] Neutrophils [#/volume] in Bl ood by Automated countOrdered By: Sheldon Xie on 05-15-2024 Neutrophils (Bld) [#/Vol] 9.8 10*3/uL High 1.8-7.7 [facility] Comment on above: Performed By: #### L IPID, CBC, CMP, TSH3 #### [facility] [address] [place] [address] Neutrophils/100 WBC Auto (Bl d)Ordered By: Sheldon Xie on 05-15-2024 Neutrophils/100 WBC (Bld) Automated neutrophil % . [facility] No Panel InformationOrdered By: Sheldon Xie on 05-15-2024 Estimated GFR (CKD-EPI) > 60.0 mL/Min [facility] Creatinine Clearance (Chem N/A [facility] Nucleated erythrocytes [Pres ence] in Blood by Automated countOrdered By: Sheldon Xie on 05-15-2024 Nucleated RBC Auto Ql (Bld) 0.0 /100{WBC} 0-0.5 [facility] Nucleated RBC Auto Ql (Bld) Nucleated erythrocytes [Presence] in Blood by Automated count 0-0.5 [facility] Platelet mean volume Auto (B ld) [Entitic vol]Ordered By: Sheldon Xie on 05-15-2024 Platelet mean volume (Bld) [Entitic vol] Platelet mean volume [Entitic volume] in Blood by Automated count 6.3-10.7 [facility] Platelet mean volume [Entiti c volume] in Blood by Automated countOrdered By: Sheldon Xie on 05-15-2024 Platelet mean volume (Bld) [Entitic vol] 7.8 fL Normal 6.3-10.7 [facility] Comment on above: Performed By: #### L IPID, CBC, CMP, TSH3 #### [facility] [address] [place] [address] [place] Platelets Auto (Bld) [#/Vol] Ordered By: Sheldon Xie on 05-15-2024 Platelets (Bld) [#/Vol] Platelets [#/vol ume] in Blood by Automated count High 150-450 [facility] Platelets [#/volume] in Bloo d by Automated countOrdered By: Sheldon Xie on 05-15-2024 Platelets (Bld) [#/Vol] 465 10*3/uL High 150-450 [facility] Comment on above: Performed By: #### L IPID, CBC, CMP, TSH3 #### [facility] [address] [place] [address] [place] Potassium [Moles/volume] in Serum or PlasmaOrdered By: Sheldon Xie on 05-15-2024 Potassium [Moles/Vol] 4.7 mmol/L Normal 3.5-5.1 [facility] Comment on above: Performed By: #### L IPID, CBC, CMP, TSH3 #### [facility] [address] [place] [address] [place] Potassium [Moles/Vol] Potassium [Moles/volume] in Serum or Plasma 3.5-5.1 [facility] Protein [Mass/volume] in Ser um or PlasmaOrdered By: Sheldon Xie on 05-15-2024 Protein [Mass/Vol] 6.7 g/dL Normal 6.4-8.9 [facility] Comment on above: Performed By: #### L IPID, CBC, CMP, TSH3 #### [facility] [address] [place] [address] Protein [Mass/Vol] Protein [Mass/volume ] in Serum or Plasma 6.4-8.9 [facility] RBC Auto (Bld) [#/Vol]Ordere d By: Sheldon Xie on 05-15-2024 RBC (Bld) [#/Vol] Erythrocytes [#/volume] in Blood by Automated count 3.60-5.00 [facility] Serum globulin measurement b y calculation (mass/volume)Ordered By: Sheldon Xie on 05-15-2024 Globulin (S) [Mass/Vol] 2.9 g/dL Normal [facility] Comment on above: Performed By: #### L IPID, CBC, CMP, TSH3 #### [facility] [address] [place] [address] Serum or plasma albumin/glob ulin mass ratioOrdered By: Sheldon Xie on 05-15-2024 Albumin/Globulin [Mass ratio] 1.3 {ratio} Normal [facility] Comment on above: Performed By: #### L IPID, CBC, CMP, TSH3 #### [facility] [address] [place] [address] Albumin/Globulin [Mass ratio] Serum or plasma albumin/globulin mass ratio [facility] Serum or plasma anion gap de terminationOrdered By: Sheldon Xie on 05-15-2024 Anion gap [Moles/Vol] 12.0 mmol/L Normal 6.0-15.0 [facility] Comment on above: Performed By: #### L IPID, CBC, CMP, TSH3 #### [facility] [address] [place] [address] Anion gap [Moles/Vol] Serum or plasma an ion gap determination 6.0-15.0 [facility] Serum or plasma high density lipoprotein (HDL) cholesterol measurementOrdered By: Sheldon Xie on 05-15-2024 Cholesterol in HDL [Mass/Vol] 38 mg/dL Normal 23-92 [facility] Comment on above: HDL CHOL ATP-III CLA SSIFICATION Cardiovascular RiskHDL > or equal to 60 mg/dL LOWHDL < 40 mg/dL HIGH Result Comment: HDL CHOL ATP-III CLASSIFICATION Cardiovascular Risk HDL > or equal to 60 mg/dL LOW HDL < 40 mg/dL HIGH Performed By: #### L IPID, CBC, CMP, TSH3 #### [facility] [address] Serum or plasma total choles terol/high density lipoprotein (HDL) cholesterol mass ratOrdered By: Sheldon Xie on 05-15-2024 Cholesterol.total/Renu sterol in HDL [Mass ratio] 3.6 {ratio} Normal <5.0 [facility] Comment on above: Performed By: #### L IPID, CBC, CMP, TSH3 #### [facility] [address] Cholesterol.total/Renu sterol in HDL [Mass ratio] Serum or plasma total cholesterol/high density lipoprotein (HDL) cholesterol mass rat <5.0 [facility] Sodium [Moles/volume] in Ser um or PlasmaOrdered By: Sheldon Xie on 05-15-2024 Sodium [Moles/Vol] 141 mmol/L Normal 136-145 [facility] Comment on above: Performed By: #### L IPID, CBC, CMP, TSH3 #### [facility] [address] [place] [address] Sodium [Moles/Vol] Sodium [Moles/volume ] in Serum or Plasma 136-145 [facility] Thyrotropin [Units/volume] i n Serum or PlasmaOrdered By: Sheldon Xie on 05-15-2024 TSH Qn 1.60 m[IU]/L Normal 0.45-5.33 [facility] Comment on above: Result Comment: PERF ORMED BY: [facility] [address] [place] [address] PATHOLOGIST [employer] JESSE ROMO M.D. Performed By: #### L IPID, CBC, CMP, TSH3 ####[id number] TSH Qn Thyrotropin [Units/volume] in Serum or Plasma 0.45-5.33 [facility] Triglyceride [Mass/volume] i n Serum or PlasmaOrdered By: Sheldon Xie on 05-15-2024 Triglyceride [Mass/Vol] 129 mg/dL 0-149 [facility] Comment on above: TRIG ATP III CLASSIF ICATIONTRIG less than 150 mg/dL NormalTRIG 150-199 mg/dL Borderline highTRIG 200-500 mg/dL High TRIG greater than 500 mg/dL Very highStandard traceable to the Center for Disease Conrtrol and Prevention (CDC) test method. Triglyceride [Mass/Vol] Triglyceride [Mass/volume] in Serum or Plasma 0-149 [facility] Comment on above: TRIG ATP III CLASSIF ICATIONTRIG less than 150 mg/dL NormalTRIG 150-199 mg/dL Borderline highTRIG 200-500 mg/dL High TRIG greater than 500 mg/dL Very highStandard traceable to the Center for Disease Conrtrol and Prevention (CDC) test method. Urea nitrogen [Mass/volume] in Serum or PlasmaOrdered By: Sheldon Xie on 05-15-2024 Urea nitrogen [Mass/Vol] 25 mg/dL Normal 03-21 [facility] Comment on above: Performed By: #### L IPID, CBC, CMP, TSH3 #### [address] Urea nitrogen [Mass/Vol] Urea nitrogen [Mass/volume] in Serum or Plasma 03-21 [facility] WBC Auto (Bld) [#/Vol]Ordere d By: Sheldon Xie on 05-15-2024 WBC (Bld) [#/Vol] Leukocytes [#/volume ] in Blood by Automated count High 3.8-11.6 [facility] Estimated glomerular filtrat ion rate (GFR) non- Americanon 12-20-2023 GFR/1.73 sq M.predicted among non-blacks MDRD (S/P/Bld) [Vol rate/Area] 54 mL/min/{1.73_m2} Low >=60 [facility] Laboratory - Chemistry and C hemistry - challengeon 12-20-2023 Calcium [Mass/Vol] 9.5 mg/dL 8.5-10.1 [facility] Creatinine [Mass/Vol] 0.98 mg/dL 0.55-1.02 [facility] GFR/1.73 sq M.predicted MDRD (S/P/Bld) [Vol rate/Area] mL/min/{1.73_m2} >=60 [facility] XR hip LT 1Von 11-20-2023 XR hip LT 1V [facility] Main High View [address] [place] [id number] XRay Report Signed Patient: Aleksandr Sanchez MR#: [id number] : 1940 Acct:[id number] Age/Sex: 83 / F ADM Date: 11/20/23 Loc: XDS Room: Type: [facility] Attending Dr: Sheldon Xie DO Copies [...] Latonya Cueva M.D.11/20/2023 3:17 PM Dictation Location: [place] [address] Transcribed By: [facility] 11/20/23 151 Dictated By: Latonya Cueva MD 11/20/23 151 Signed By: 11/20/23 151 Normal [facility] Alanine aminotransferase [En zymatic activity/volume] in Serum or PlasmaOrdered By: Sheldon Xie on 09-26-2023 ALT [Catalytic activity/Vol] 12 U/L [facility] Albumin [Mass/volume] in Ser um or Plasma by Bromocresol green (BCG) dye binding methoOrdered By: Sheldon Xie on 09-26-2023 Albumin BCG dye [Mass/Vol] 4.1 g/dL 3.5-5.7 [facility] Alkaline phosphatase [Enzyma tic activity/volume] in Serum or PlasmaOrdered By: Sheldon Xie on 09-26-2023 ALP [Catalytic activity/Vol] 54 U/L 34-104 [facility] Aspartate aminotransferase [ Enzymatic activity/volume] in Serum or PlasmaOrdered By: Sheldon Xie on 09-26-2023 AST [Catalytic activity/Vol] 18 U/L 13-39 [facility] Basophils Auto (Bld) [#/Vol] Ordered By: Sheldon Xie on 09-26-2023 Basophils (Bld) [#/Vol] 0.1 10*3/uL 0.0-0.2 [facility] Basophils/100 WBC Auto (Bld) Ordered By: Sheldon Xie on 09-26-2023 Basophils/100 WBC (Bld) 1.2 % . [facility] Bilirubin.total [Mass/volume ] in Serum or PlasmaOrdered By: Sheldon Xie on 09-26-2023 Bilirubin [Mass/Vol] 0.3 mg/dL 0.3-1.0 [facility] Calcium [Mass/volume] in Ser um or PlasmaOrdered By: Sheldon Xie on 09-26-2023 Calcium [Mass/Vol] 9.4 mg/dL 8.6-10.3 [facility] Carbon dioxide, total [Moles /volume] in Serum or PlasmaOrdered By: Sheldon Xie on 09-26-2023 CO2 [Moles/Vol] 29.7 mmol/L 21.0-31.0 [facility] Chloride [Moles/volume] in S cecilia or PlasmaOrdered By: Sheldon Xie on 09-26-2023 Chloride [Moles/Vol] 111 mmol/L 98-107 [facility] Cholesterol [Mass/volume] in Serum or PlasmaOrdered By: Sheldon Xie on 09-26-2023 Cholesterol [Mass/Vol] 170 mg/dL 140-200 [facility] Comment on above: Chol less than 200 m g/dl low riskChol 201-239 mg/dl borderline riskChol 240 mg/dl and greater high risk Cholesterol in LDL Calc [Mas s/Vol]Ordered By: Sheldon Xie on 09-26-2023 Cholesterol in LDL [Mass/Vol] 96 mg/dL 0-100 [facility] Comment on above: LDL ATP III CLASSIFI CATIONLDL less than 100 mg/dL OptimalLDL 100-129 mg/dL Near or above optimalLDL 130-159 mg/dL Borderline highLDL 160-189 mg/dL HighLDL greater than 189 mg/dL Very high Cholesterol in VLDL Calc [Ma ss/Vol]Ordered By: Sheldon Xie on 09-26-2023 Cholesterol in VLDL [Mass/Vol] 22 mg/dL [facility] Creatinine [Mass/volume] in Serum or PlasmaOrdered By: Sheldon Xie on 09-26-2023 Creatinine [Mass/Vol] 1.02 mg/dL 0.60-1.20 [facility] Eosinophils Auto (Bld) [#/Vo l]Ordered By: Sheldon Xie on 09-26-2023 Eosinophils (Bld) [#/Vol] 0.4 10*3/uL 0.0-0.45 [facility] Eosinophils/100 WBC Auto (Bl d)Ordered By: Sheldon Xie on 09-26-2023 Eosinophils/100 WBC (Bld) 4.5 % . [facility] Erythrocyte distribution wid th Auto (RBC) [Ratio]Ordered By: Sheldon Xie on 09-26-2023 Erythrocyte distribution width (RBC) [Ratio] 14.0 % 11.9-15.3 [facility] Globulin Calc (S) [Mass/Vol] Ordered By: Sheldon Xie on 09-26-2023 Globulin (S) [Mass/Vol] 2.5 g/dL [facility] Glucose [Mass/volume] in Ser um or PlasmaOrdered By: Sheldon Xie on 09-26-2023 Glucose [Mass/Vol] 92 mg/dL 70-100 [facility] Comment on above: ADA recommended refe rence rangeRandom Glucose Reference Range is dependent on time and content of last meal. Glucose of more than 200 mg/dL in a nonstressed, ambulatory subject supports the diagnosis of Diabetes Mellitus. Hematocrit Auto (Bld) [Volum e fraction]Ordered By: Sheldon Xie on 09-26-2023 Hematocrit (Bld) [Volume fraction] 38.6 % 34.0-46.4 [facility] Hemoglobin [Mass/volume] in BloodOrdered By: Sheldon Xie on 09-26-2023 Hemoglobin (Bld) [Mass/Vol] 12.4 g/dL 11.8-15.4 [facility] Leukocytes [#/volume] correc sandra for nucleated erythrocytes in Blood by Automated counOrdered By: Sheldon Xie on 09-26-2023 WBC corrected for nucl RBC Auto (Bld) [#/Vol] 8.1 10*3/uL 3.8-11.6 [facility] Lymphocytes Auto (Bld) [#/Vo l]Ordered By: Sheldon Xie on 09-26-2023 Lymphocytes (Bld) [#/Vol] 2.1 10*3/uL 1.00-4.8 [facility] Lymphocytes/100 WBC Auto (Bl d)Ordered By: Sheldon Xie on 09-26-2023 Lymphocytes/100 WBC (Bld) 26.4 % . [facility] MCH Auto (RBC) [Entitic mass ]Ordered By: Sheldon Xie on 09-26-2023 MCH (RBC) [Entitic mass] 31.2 pg 24.7-34.3 [facility] MCHC Auto (RBC) [Mass/Vol]Or dered By: Sheldon Xie on 09-26-2023 MCHC (RBC) [Mass/Vol] 32.1 g/dL 32.0-35.0 [facility] MCV Auto (RBC) [Entitic vol] Ordered By: Sheldon Xie on 09-26-2023 MCV (RBC) [Entitic vol] 97.2 fL 80-100 [facility] Monocytes Auto (Bld) [#/Vol] Ordered By: Sheldon Xie on 09-26-2023 Monocytes (Bld) [#/Vol] 0.6 10*3/uL 0.0-0.8 [facility] Monocytes/100 WBC Auto (Bld) Ordered By: Sheldon Xie on 09-26-2023 Monocytes/100 WBC (Bld) 8.0 % . [facility] Neutrophils Auto (Bld) [#/Vo l]Ordered By: Sheldon Xie on 09-26-2023 Neutrophils (Bld) [#/Vol] 4.9 10*3/uL 1.8-7.7 [facility] Neutrophils/100 WBC Auto (Bl d)Ordered By: Sheldon Xie on 09-26-2023 Neutrophils/100 WBC (Bld) 59.9 % . [facility] No Panel InformationOrdered By: Sheldon Xie on 09-26-2023 Estimated GFR (CKD-EPI) 54.927 mL/Min [facility] Creatinine Clearance (Chem N/A [facility] Nucleated erythrocytes [Pres ence] in Blood by Automated countOrdered By: Sheldon Xie on 09-26-2023 Nucleated RBC Auto Ql (Bld) 0.1 /100{WBC} 0-0.5 [facility] Platelet mean volume Auto (B ld) [Entitic vol]Ordered By: Sheldon Xie on 09-26-2023 Platelet mean volume (Bld) [Entitic vol] 8.4 fL 6.3-10.7 [facility] Platelets Auto (Bld) [#/Vol] Ordered By: Sheldon Xie on 09-26-2023 Platelets (Bld) [#/Vol] 324 10*3/uL 150-450 [facility] Potassium [Moles/volume] in Serum or PlasmaOrdered By: Sheldon Xie on 09-26-2023 Potassium [Moles/Vol] 4.8 mmol/L 3.5-5.1 [facility] Protein [Mass/volume] in Ser um or PlasmaOrdered By: Sheldon Xie on 09-26-2023 Protein [Mass/Vol] 6.6 g/dL 6.4-8.9 [facility] RBC Auto (Bld) [#/Vol]Ordere d By: Sheldon Xie on 09-26-2023 RBC (Bld) [#/Vol] 3.97 10*6/uL 3.60-5.00 [place] Serum or plasma albumin/glob ulin mass ratioOrdered By: Sheldon Xie on 09-26-2023 Albumin/Globulin [Mass ratio] 1.6 {ratio} [facility] Serum or plasma anion gap de terminationOrdered By: Sheldon Xie on 09-26-2023 Anion gap [Moles/Vol] 10.1 mmol/L 6.0-15.0 [facility] Serum or plasma high density lipoprotein (HDL) cholesterol measurementOrdered By: Sheldon Xie on 09-26-2023 Cholesterol in HDL [Mass/Vol] 52 mg/dL 23-92 [facility] Comment on above: HDL CHOL ATP-III CLA SSIFICATION Cardiovascular RiskHDL > or equal to 60 mg/dL LOWHDL < 40 mg/dL HIGH Serum or plasma total choles terol/high density lipoprotein (HDL) cholesterol mass ratOrdered By: Sheldon Xie on 09-26-2023 Cholesterol.total/Renu sterol in HDL [Mass ratio] 3.3 {ratio} <5.0 [facility] Sodium [Moles/volume] in Ser um or PlasmaOrdered By: Sheldon Xie on 09-26-2023 Sodium [Moles/Vol] 146 mmol/L 136-145 [facility] Thyrotropin [Units/volume] i n Serum or PlasmaOrdered By: Sheldon Xie on 09-26-2023 TSH Qn 2.47 m[IU]/L 0.45-5.33 [facility] Triglyceride [Mass/volume] i n Serum or PlasmaOrdered By: Sheldon Xie on 09-26-2023 Triglyceride [Mass/Vol] 112 mg/dL 0-149 [facility] Comment on above: TRIG ATP III CLASSIF ICATIONTRIG less than 150 mg/dL NormalTRIG 150-199 mg/dL Borderline highTRIG 200-500 mg/dL High TRIG greater than 500 mg/dL Very highStandard traceable to the Center for Disease Conrtrol and Prevention (CDC) test method. Urea nitrogen [Mass/volume] in Serum or PlasmaOrdered By: Sheldon Xie on 09-26-2023 Urea nitrogen [Mass/Vol] 30 mg/dL 7-25 [facility] WBC Auto (Bld) [#/Vol]Ordere d By: Sheldon Xie on 09-26-2023 WBC (Bld) [#/Vol] 8.1 10*3/uL 3.8-11.6 [facility] Alanine aminotransferase [En zymatic activity/volume] in Serum or PlasmaOrdered By: Sheldon Xie on 05-24-2023 ALT [Catalytic activity/Vol] 13 U/L 7-52 [facility] Albumin [Mass/volume] in Ser um or Plasma by Bromocresol green (BCG) dye binding methoOrdered By: Sheldon Xie on 05-24-2023 Albumin BCG dye [Mass/Vol] 4.2 g/dL 3.5-5.7 [facility] Alkaline phosphatase [Enzyma tic activity/volume] in Serum or PlasmaOrdered By: Sheldon Xie on 05-24-2023 ALP [Catalytic activity/Vol] 55 U/L 34-104 [facility] Aspartate aminotransferase [ Enzymatic activity/volume] in Serum or PlasmaOrdered By: Sheldon Xie on 05-24-2023 AST [Catalytic activity/Vol] 20 U/L 13-39 [facility] Basophils Auto (Bld) [#/Vol] Ordered By: Sheldon Xie on 05-24-2023 Basophils (Bld) [#/Vol] 0.1 10*3/uL 0.0-0.2 [facility] Basophils/100 WBC Auto (Bld) Ordered By: Sheldon Xie on 05-24-2023 Basophils/100 WBC (Bld) 1.0 % . [facility] Bilirubin.total [Mass/volume ] in Serum or PlasmaOrdered By: Sheldon Xie 05-24-2023 Bilirubin [Mass/Vol] 0.5 mg/dL 0.3-1.0 [facility] Calcium [Mass/volume] in Ser um or PlasmaOrdered By: Sheldon Xie on 05-24-2023 Calcium [Mass/Vol] 9.9 mg/dL 8.6-10.3 [facility] Carbon dioxide, total [Moles /volume] in Serum or PlasmaOrdered By: Sheldon Xie 05-24-2023 CO2 [Moles/Vol] 32.5 mmol/L 21.0-31.0 [facility] Chloride [Moles/volume] in S cecilia or PlasmaOrdered By: Sheldon Xie 05-24-2023 Chloride [Moles/Vol] 108 mmol/L 98-107 [facility] Cholesterol [Mass/volume] in Serum or PlasmaOrdered By: Sheldon Xie on 05-24-2023 Cholesterol [Mass/Vol] 176 mg/dL 140-200 [facility] Comment on above: Chol less than 200 m g/dl low riskChol 201-239 mg/dl borderline riskChol 240 mg/dl and greater high risk Cholesterol in LDL Calc [Mas s/Vol]Ordered By: Sheldon Xie on 05-24-2023 Cholesterol in LDL [Mass/Vol] 96 mg/dL 0-100 [facility] Comment on above: LDL ATP III CLASSIFI CATIONLDL less than 100 mg/dL OptimalLDL 100-129 mg/dL Near or above optimalLDL 130-159 mg/dL Borderline highLDL 160-189 mg/dL HighLDL greater than 189 mg/dL Very high Cholesterol in VLDL Calc [Ma ss/Vol]Ordered By: Sheldon Xie on 05-24-2023 Cholesterol in VLDL [Mass/Vol] 23 mg/dL [facility] Creatinine [Mass/volume] in Serum or PlasmaOrdered By: Sheldon Xie on 05-24-2023 Creatinine [Mass/Vol] 0.92 mg/dL 0.60-1.20 [facility] Eosinophils Auto (Bld) [#/Vo l]Ordered By: Sheldon Xie on 05-24-2023 Eosinophils (Bld) [#/Vol] 0.3 10*3/uL 0.0-0.45 [facility] Eosinophils/100 WBC Auto (Bl d)Ordered By: Sheldon Xie on 05-24-2023 Eosinophils/100 WBC (Bld) 3.9 % . [facility] Erythrocyte distribution wid th Auto (RBC) [Ratio]Ordered By: Sheldon Xie on 05-24-2023 Erythrocyte distribution width (RBC) [Ratio] 13.6 % 11.9-15.3 [facility] Globulin Calc (S) [Mass/Vol] Ordered By: Sheldon Xie on 05-24-2023 Globulin (S) [Mass/Vol] 2.5 g/dL [facility] Glucose [Mass/volume] in Ser um or PlasmaOrdered By: Sheldon Xie on 05-24-2023 Glucose [Mass/Vol] 90 mg/dL 70-100 [facility] Comment on above: ADA recommended refe rence rangeRandom Glucose Reference Range is dependent on time and content of last meal. Glucose of more than 200 mg/dL in a nonstressed, ambulatory subject supports the diagnosis of Diabetes Mellitus. Hematocrit Auto (Bld) [Volum e fraction]Ordered By: Sheldon Xie on 05-24-2023 Hematocrit (Bld) [Volume fraction] 39.0 % 34.0-46.4 [facility] Hemoglobin [Mass/volume] in BloodOrdered By: Sheldon Xie on 05-24-2023 Hemoglobin (Bld) [Mass/Vol] 12.7 g/dL 11.8-15.4 [facility] Leukocytes [#/volume] correc sandra for nucleated erythrocytes in Blood by Automated counOrdered By: Sheldon Xie on 05-24-2023 WBC corrected for nucl RBC Auto (Bld) [#/Vol] 7.3 10*3/uL 3.8-11.6 [facility] Lymphocytes Auto (Bld) [#/Vo l]Ordered By: Sheldon Xie on 05-24-2023 Lymphocytes (Bld) [#/Vol] 1.8 10*3/uL 1.00-4.8 [facility] Lymphocytes/100 WBC Auto (Bl d)Ordered By: Sheldon Xie on 05-24-2023 Lymphocytes/100 WBC (Bld) 24.8 % . [facility] MCH Auto (RBC) [Entitic mass ]Ordered By: Sheldon Xie on 05-24-2023 MCH (RBC) [Entitic mass] 31.8 pg 24.7-34.3 [facility] MCHC Auto (RBC) [Mass/Vol]Or dered By: Sheldon Xie on 05-24-2023 MCHC (RBC) [Mass/Vol] 32.7 g/dL 32.0-35.0 [facility] MCV Auto (RBC) [Entitic vol] Ordered By: Sheldon Xie on 05-24-2023 MCV (RBC) [Entitic vol] 97.2 fL 80-100 [facility] Monocytes Auto (Bld) [#/Vol] Ordered By: Sheldon Xie on 05-24-2023 Monocytes (Bld) [#/Vol] 0.7 10*3/uL 0.0-0.8 [facility] Monocytes/100 WBC Auto (Bld) Ordered By: Sheldon Xie on 05-24-2023 Monocytes/100 WBC (Bld) 9.5 % . [facility] Neutrophils Auto (Bld) [#/Vo l]Ordered By: Sheldon Xie on 05-24-2023 Neutrophils (Bld) [#/Vol] 4.4 10*3/uL 1.8-7.7 [facility] Neutrophils/100 WBC Auto (Bl d)Ordered By: Sheldon Xie on 05-24-2023 Neutrophils/100 WBC (Bld) 60.8 % . [facility] No Panel InformationOrdered By: Sheldon Xie on 05-24-2023 Estimated GFR (CKD-EPI) > 60.0 mL/Min [facility] Creatinine Clearance (Chem N/A [facility] Nucleated erythrocytes [Pres ence] in Blood by Automated countOrdered By: Sheldon Xie on 05-24-2023 Nucleated RBC Auto Ql (Bld) 0.1 /100{WBC} 0-0.5 [facility] Platelet mean volume Auto (B ld) [Entitic vol]Ordered By: Sheldon Xie on 05-24-2023 Platelet mean volume (Bld) [Entitic vol] 8.5 fL 6.3-10.7 [facility] Platelets Auto (Bld) [#/Vol] Ordered By: Sheldon Xie on 05-24-2023 Platelets (Bld) [#/Vol] 303 10*3/uL 150-450 [facility] Potassium [Moles/volume] in Serum or PlasmaOrdered By: Sheldon Xie on 05-24-2023 Potassium [Moles/Vol] 4.5 mmol/L 3.5-5.1 [facility] Protein [Mass/volume] in Ser um or PlasmaOrdered By: Sheldon Xie on 05-24-2023 Protein [Mass/Vol] 6.7 g/dL 6.4-8.9 [facility] RBC Auto (Bld) [#/Vol]Ordere d By: Sheldon Xie on 05-24-2023 RBC (Bld) [#/Vol] 4.01 10*6/uL 3.60-5.00 [place] Serum or plasma albumin/glob ulin mass ratioOrdered By: Sheldon Xie on 05-24-2023 Albumin/Globulin [Mass ratio] 1.7 {ratio} [facility] Serum or plasma anion gap de terminationOrdered By: Sheldon Xie on 05-24-2023 Anion gap [Moles/Vol] 8.0 mmol/L 6.0-15.0 [facility] Serum or plasma high density lipoprotein (HDL) cholesterol measurementOrdered By: Sheldon Xie on 05-24-2023 Cholesterol in HDL [Mass/Vol] 57 mg/dL 23-92 [facility] Comment on above: HDL CHOL ATP-III CLA SSIFICATION Cardiovascular RiskHDL > or equal to 60 mg/dL LOWHDL < 40 mg/dL HIGH Serum or plasma total choles terol/high density lipoprotein (HDL) cholesterol mass ratOrdered By: Sheldon Xie on 05-24-2023 Cholesterol.total/Renu sterol in HDL [Mass ratio] 3.1 {ratio} <5.0 [facility] Sodium [Moles/volume] in Ser um or PlasmaOrdered By: Sheldon Xie on 05-24-2023 Sodium [Moles/Vol] 144 mmol/L 136-145 [facility] Thyrotropin [Units/volume] i n Serum or PlasmaOrdered By: Sheldon Xie on 05-24-2023 TSH Qn 2.85 m[IU]/L 0.45-5.33 [facility] Triglyceride [Mass/volume] i n Serum or PlasmaOrdered By: Sheldon Xie on 05-24-2023 Triglyceride [Mass/Vol] 115 mg/dL 0-149 [facility] Comment on above: TRIG ATP III CLASSIF ICATIONTRIG less than 150 mg/dL NormalTRIG 150-199 mg/dL Borderline highTRIG 200-500 mg/dL High TRIG greater than 500 mg/dL Very highStandard traceable to the Center for Disease Conrtrol and Prevention (CDC) test method. Urea nitrogen [Mass/volume] in Serum or PlasmaOrdered By: Sheldon Xie on 05-24-2023 Urea nitrogen [Mass/Vol] 29 mg/dL 03-21 [facility] WBC Auto (Bld) [#/Vol]Ordere d By: Sheldon Xie on 05-24-2023 WBC (Bld) [#/Vol] 7.3 10*3/uL 3.8-11.6 [facility] CALCIUMon 01-10-2023 Calcium [Mass/Vol] 9.4 mg/dL Normal 8.5-10.1 [facility] Comment on above: Performed By: #### Orly TATUM CA #### [facility] [address] [place] [address] Dr. Mayank Khan CREATININEon 01-10-2023 Creatinine [Mass/Vol] 1.06 mg/dL Critically high 0.55-1.02 [facility] Comment on above: Performed By: #### Orly TATUM CA #### [facility] [address] [place] [address] Dr. Mayank Khan EGFR-AF GAMBIAN =60 Normal >=60 [facility] Comment on above: Performed By: #### Orly TATUM CA #### [facility] [address] [address] [address] Mayank Khan EGFR-NON AF GAMBIAN 50 mL/min/1.73m2 Critically low >=60 [facility] Comment on above: Performed By: #### Orly TATUM CA #### [facility] [address] [address] [address] Mayank Khan CALCIUMon 12-12-2022 Calcium [Mass/Vol] 9.8 mg/dL Normal 8.5-10.1 [facility] Comment on above: Performed By: #### Orly TATUM CA #### [facility] [address] [place] [address] Dr. Mayank Khan CREATININEon 12-12-2022 Creatinine [Mass/Vol] 0.77 mg/dL Normal 0.55-1.02 [facility] Comment on above: Performed By: #### Orly TATUM CA #### [facility] [address] [place], [place] [id number] Dr. Mayank Khan EGFR-AF GAMBIAN >60 Normal >=60 [facility] Comment on above: Performed By: #### C DEBBIE TATUM #### [facility] [address] [address] [address] Mayank Khan EGFR-NON AF GAMBIAN >60 Normal >=60 [facility] Comment on above: Performed By: #### DEBBIE NOONAN #### [facility] [address] [address] [address] Mayank Khan Basophils Auto (Bld) [#/Vol] Ordered By: Sheldon Xie on 09-29-2022 Basophils (Bld) [#/Vol] 0.1 10*3/uL 0.0-0.2 [facility] Basophils/100 WBC Auto (Bld) Ordered By: Sheldon Xie on 09-29-2022 Basophils/100 WBC (Bld) 0.9 % . [facility] Body fluid albumin measureme nt (mass/volume)Ordered By: Sheldon Xie on 09-29-2022 Albumin (Body fld) [Mass/Vol] 4.2 g/dL 3.2-5.5 [facility] Cholesterol [Mass/volume] in Serum or PlasmaOrdered By: Sheldon Xie on 09-29-2022 Cholesterol [Mass/Vol] 182 mg/dL 140-200 [facility] Comment on above: Chol less than 200 m g/dl low riskChol 201-239 mg/dl borderline riskChol 240 mg/dl and greater high risk Cholesterol in LDL Calc [Mas s/Vol]Ordered By: Sheldon Xie on 09-29-2022 Cholesterol in LDL [Mass/Vol] 105 mg/dL 0-100 [facility] Comment on above: LDL ATP III CLASSIFI CATIONLDL less than 100 mg/dL OptimalLDL 100-129 mg/dL Near or above optimalLDL 130-159 mg/dL Borderline highLDL 160-189 mg/dL HighLDL greater than 189 mg/dL Very high Cholesterol in VLDL Calc [Ma ss/Vol]Ordered By: Sheldon Xie on 09-29-2022 Cholesterol in VLDL [Mass/Vol] 17 mg/dL [facility] Complete Blood Count Auto Di ffon 09-29-2022 Basophils (Bld) [#/Vol] 0.865188703 10*3/uL Normal 0.0-0.2 10*3/uL [employer] Other Basophils/100 WBC (Bld) 0.900 % . % N [email or web address] Other Eosinophils (Bld) [#/Vol] 0.541187953 10*3/uL Normal 0.0-0.45 10*3/uL [employer] Other Eosinophils/100 WBC (Bld) 2.700 % . % [employer] Other Erythrocyte distribution width (RBC) [Ratio] 14.400 % Normal 11.9-15.3 % [employer] Other Hematocrit (Bld) [Volume fraction] 39.000 % Normal 34.0-46.4 % [employer] Other Hemoglobin (Bld) [Mass/Vol] 12.732041 g/dL Normal 11.8-15.4 g/dL [employer] Other Lymphocytes (Bld) [#/Vol] 1.992500291 10*3/uL Normal 1.00-4.8 10*3/uL [employer] Other Lymphocytes/100 WBC (Bld) 25.800 % . % [employer] Other MCH (RBC) [Entitic mass] 31.1000 pg Normal 24.7-34.3 pg [employer] Other MCV (RBC) [Entitic vol] 97.1000 fL Normal 80-100 fL [email or web address] Other Monocytes (Bld) [#/Vol] 0.207243333 10*3/uL Normal 0.0-0.8 10*3/uL [employer] Other Monocytes/100 WBC (Bld) 8.200 % . % N [email or web address] Other Neutrophils (Bld) [#/Vol] 4.397763999 10*3/uL Normal 1.8-7.7 10*3/uL [employer] Other Neutrophils/100 WBC (Bld) 62.400 % . % [employer] Other Platelet mean volume (Bld) [Entitic vol] 8.2000 fL Normal 6.3-10.7 fL [employer] Other WBC (Bld) [#/Vol] 7.746719563 10*3/uL Normal 3.8 -11.6 10*3/uL [employer] Other Complete Blood Count Auto Diff 7.4 10*3/uL Normal 3.8-11.6 10*3/uL [employer] Other Complete Blood Count Auto Diff 32.1 g/dL Normal 32.0-35.0 g/dL [employer] Other Complete Blood Count Auto Diff 0.1 /100{WBC} Normal 0-0.5 /100{WBC} [employer] Other Comprehensive Metabolic Pane julisa 09-29-2022 Albumin [Mass/Vol] 4.497531 g/dL Normal 3.2-5.5 g/dL [employer] Other ALT [Catalytic activity/Vol] 16 U/L Normal 10-60 U/L [employer] Other Bilirubin [Mass/Vol] 0.1567723 mg/dL Normal 0.3- 1.2 mg/dL [employer] Other Calcium [Mass/Vol] 9.8429785 mg/dL Normal 8.2-10 .2 mg/dL [employer] Other CO2 [Moles/Vol] 24.47421490 mmol/L Normal 22.0-3 0.0 mmol/L [employer] Other Creatinine [Mass/Vol] 0.83333055 mg/dL Normal 0. 44-1.03 mg/dL [employer] Other Potassium [Moles/Vol] 4.35063661 mmol/L Normal 3 .5-5.1 mmol/L [employer] Other Protein [Mass/Vol] 6.451596 g/dL Normal 6.1-7.9 g/dL [employer] Other Comprehensive Metabolic Panel > 60 [employer] Other Comprehensive Metabolic Panel 2.5 g/dL [employer] Other Creatinine and Glomerular fi ltration rate.predicted panel (S/P/Bld)Ordered By: Sheldon Xie on 09-29-2022 Creatinine [Mass/Vol] 0.84 mg/dL 0.44-1.03 [facility] Eosinophils Auto (Bld) [#/Vo l]Ordered By: Sheldon Xie on 09-29-2022 Eosinophils (Bld) [#/Vol] 0.2 10*3/uL 0.0-0.45 [facility] Eosinophils/100 WBC Auto (Bl d)Ordered By: Sheldon Xie on 09-29-2022 Eosinophils/100 WBC (Bld) 2.7 % . [facility] Erythrocyte distribution wid th Auto (RBC) [Ratio]Ordered By: Sheldon Xie on 09-29-2022 Erythrocyte distribution width (RBC) [Ratio] 14.4 % 11.9-15.3 [facility] Erythrocytes [#/volume] in B lood by Automated countOrdered By: Sheldon Xie on 09-29-2022 RBC (Bld) [#/Vol] 4.02 10*6/uL 3.60-5.00 [place] Estimated glomerular filtrat ion rate (GFR) non- AmericanOrdered By: Sheldon Xie on 09-29-2022 GFR/1.73 sq M.predicted among non-blacks MDRD (S/P/Bld) [Vol rate/Area] > 60 mL/Min [facility] Globulin Calc (S) [Mass/Vol] Ordered By: Sheldon Xie on 09-29-2022 Globulin (S) [Mass/Vol] 2.5 g/dL [facility] Hematocrit Auto (Bld) [Volum e fraction]Ordered By: Sheldon Xie on 09-29-2022 Hematocrit (Bld) [Volume fraction] 39.0 % 34.0-46.4 [facility] Hemoglobin [Mass/volume] in BloodOrdered By: Sheldon Xie on 09-29-2022 Hemoglobin (Bld) [Mass/Vol] 12.5 g/dL 11.8-15.4 [facility] Leukocytes [#/volume] correc sandra for nucleated erythrocytes in Blood by Automated counOrdered By: Sheldon Xie on 09-29-2022 WBC corrected for nucl RBC Auto (Bld) [#/Vol] 7.4 10*3/uL 3.8-11.6 [facility] Lipid Panelon 09-29-2022 Cholesterol in LDL Elph Qn 105 mg/dL High 0-100 mg/dL [facility] [employer] Other Lipid Panel 89 mg/dL Normal 35-149 mg/dL [facility] [employer] Other Lipid Panel 17 mg/dL [facility] [employer] Other Lymphocytes Auto (Bld) [#/Vo l]Ordered By: Sheldon Xie on 09-29-2022 Lymphocytes (Bld) [#/Vol] 1.9 10*3/uL 1.00-4.8 [facility] Lymphocytes/100 WBC Auto (Bl d)Ordered By: Sheldon Xie on 09-29-2022 Lymphocytes/100 WBC (Bld) 25.8 % . [facility] MCH Auto (RBC) [Entitic mass ]Ordered By: Sheldon Xie on 09-29-2022 MCH (RBC) [Entitic mass] 31.1 pg 24.7-34.3 [facility] MCHC Auto (RBC) [Mass/Vol]Or dered By: Sheldon Xie on 09-29-2022 MCHC (RBC) [Mass/Vol] 32.1 g/dL 32.0-35.0 [facility] MCV Auto (RBC) [Entitic vol] Ordered By: Sheldon Xie on 09-29-2022 MCV (RBC) [Entitic vol] 97.1 fL 80-100 [facility] Monocytes Auto (Bld) [#/Vol] Ordered By: Sheldon Xie on 09-29-2022 Monocytes (Bld) [#/Vol] 0.6 10*3/uL 0.0-0.8 [facility] Monocytes/100 WBC Auto (Bld) Ordered By: Sheldon Xie on 09-29-2022 Monocytes/100 WBC (Bld) 8.2 % . [facility] Neutrophils Auto (Bld) [#/Vo l]Ordered By: Sheldon Xie on 09-29-2022 Neutrophils (Bld) [#/Vol] 4.7 10*3/uL 1.8-7.7 [facility] Neutrophils/100 WBC Auto (Bl d)Ordered By: Sheldon Xie on 09-29-2022 Neutrophils/100 WBC (Bld) 62.4 % . [facility] No Panel InformationOrdered By: Sammie Duran on 09-29-2022 25-Hydroxy Vitamin D Total 74.2 ng/mL 30-100 [facility] Comment on above: VITAMIN D STATUS 25( [place])VITAMIN D RANGE (ng/mL) Deficient <20 Insufficient 20 to <30Sufficient 30 to 100Reference: Baldo MF,Raina NC, Juan HOLLOWAY, et al. Evaluation,treatment, and prevention of vitamin D deficiency; an Endocrine Society clinical practice guideline. JCEM. 2010; 96(7):1911-30. No Panel InformationOrdered By: Sheldon Xie on 09-29-2022 Estimated GFR () > 60 mL/Min [facility] Comment on above: GFR estimated refere nce range: According to KDOQI guidelines, <60 ml/min/1.73m2 is sufficient to diagnose a patient with chronic kidney disease. Pharmacy Creatinine Clearance (Chem N/A [facility] Nucleated erythrocytes [Pres ence] in Blood by Automated countOrdered By: Sheldon Xie on 09-29-2022 Nucleated RBC Auto Ql (Bld) 0.1 /100{WBC} 0-0.5 [facility] Parathyroid Hormone Intacton 09-29-2022 Parathyroid Hormone Intact 50.1 pg/mL Normal 12-88 pg/mL [employer] Other Platelet mean volume Auto (B ld) [Entitic vol]Ordered By: Sheldon Xie on 09-29-2022 Platelet mean volume (Bld) [Entitic vol] 8.2 fL 6.3-10.7 [facility] Platelets [#/volume] in Bloo d by Automated countOrdered By: Sheldon Xie on 09-29-2022 Platelets (Bld) [#/Vol] 285 10*3/uL 150-450 [facility] Protein [Mass/volume] in Ser um or PlasmaOrdered By: Sheldon Xie on 09-29-2022 Protein [Mass/Vol] 6.7 g/dL 6.1-7.9 [facility] Serum or plasma alanine wilder otransferase measurement without P-5'-P (enzymatic activiOrdered By: Sheldon Xie on 09-29-2022 ALT No additional P-5'-P [Catalytic activity/Vol] 16 U/L 10-60 [facility] Serum or plasma albumin/glob ulin mass ratioOrdered By: Sheldon Xie on 09-29-2022 Albumin/Globulin [Mass ratio] 1.7 {ratio} [facility] Serum or plasma alkaline bailey sphatase measurement (enzymatic activity/volume)Ordered By: Sheldon Xie on 09-29-2022 ALP [Catalytic activity/Vol] 41 U/L 32-92 [facility] Serum or plasma anion gap de terminationOrdered By: Sheldon Xie on 09-29-2022 Anion gap [Moles/Vol] 14.1 mmol/L 6.0-15.0 [facility] Serum or plasma aspartate am inotransferase measurement (enzymatic activity/volume)Ordered By: Sheldon Xie on 09-29-2022 AST [Catalytic activity/Vol] 22 U/L 10-42 [facility] Serum or plasma calcium prachi urement (mass/volume)Ordered By: Sheldon Xie on 09-29-2022 Calcium [Mass/Vol] 9.7 mg/dL 8.2-10.2 [facility] Serum or plasma chloride darcy surement (moles/volume)Ordered By: Sheldon Xie on 09-29-2022 Chloride [Moles/Vol] 105 mmol/L 95-114 [facility] Serum or plasma glucose prachi urement (mass/volume)Ordered By: Sheldon Xie on 09-29-2022 Glucose [Mass/Vol] 78 mg/dL 70-100 [facility] Comment on above: ADA recommended refe rence rangeRandom Glucose Reference Range is dependent on time and content of last meal. Glucose of more than 200 mg/dL in a nonstressed, ambulatory subject supports the diagnosis of Diabetes Mellitus. Serum or plasma high density lipoprotein (HDL) cholesterol measurementOrdered By: Sheldon Xie on 09-29-2022 Cholesterol in HDL [Mass/Vol] 59 mg/dL 35-85 [facility] Comment on above: HDL CHOL ATP-III CLA SSIFICATION Cardiovascular RiskHDL > or equal to 60 mg/dL LOWHDL < 40 mg/dL HIGH Serum or plasma intact parat hyroid hormone measurement (mass/volume)Ordered By: Sammie Duran on 09-29-2022 Parathyrin.intact [Mass/Vol] 50.1 pg/mL 12- [facility] Serum or plasma potassium me asurement (moles/volume)Ordered By: Sheldon Xie on 09-29-2022 Potassium [Moles/Vol] 4.6 mmol/L 3.5-5.1 [facility] Serum or plasma sodium measu rement (moles/volume)Ordered By: Sheldon Xie on 09-29-2022 Sodium [Moles/Vol] 139 mmol/L 136-146 [facility] Serum or plasma total biliru bin measurement (mass/volume)Ordered By: Sheldon Xie on 09-29-2022 Bilirubin [Mass/Vol] 0.7 mg/dL 0.3-1.2 [facility] Serum or plasma total carbon dioxide measurement (moles/volume)Ordered By: Sheldon Xie on 09-29-2022 CO2 [Moles/Vol] 24.5 mmol/L 22.0-30.0 [facility] Serum or plasma total choles terol/high density lipoprotein (HDL) cholesterol mass ratOrdered By: Sheldon Xie on 09-29-2022 Cholesterol.total/Renu sterol in HDL [Mass ratio] 3.1 {ratio} <5.0 [facility] Serum or plasma urea nitroge n measurement (mass/volume)Ordered By: Sheldon Xie on 09-29-2022 Urea nitrogen [Mass/Vol] 23 mg/dL 9-23 [facility] TSH DL <= 0.005 mIU/L QnOrde red By: Sheldon Xie on 09-29-2022 TSH Qn 1.86 m[IU]/L 0.45-5.33 [facility] Thyroid Stimulating Hormoneo n 09-29-2022 TSH Qn 1.90932267613 m[IU]/L Normal 0.45-5 .33 u[iU]/mL [employer] [facility] [employer] Other Triglyceride [Mass/volume] i n Serum or PlasmaOrdered By: Sheldon Xie on 09-29-2022 Triglyceride [Mass/Vol] 89 mg/dL 35-149 [facility] Comment on above: TRIG ATP III CLASSIF ICATIONTRIG less than 150 mg/dL NormalTRIG 150-199 mg/dL Borderline highTRIG 200-500 mg/dL High TRIG greater than 500 mg/dL Very highStandard traceable to the Center for Disease Conrtrol and Prevention (CDC) test method. Vitamin D 25 Hydroxy Totalon 09-29-2022 Vitamin D 25 Hydroxy Total 74.2 ng/mL Normal 30-100 ng/mL [employer] Other WBC Auto (Bld) [#/Vol]Ordere d By: Sheldon Xie on 09-29-2022 WBC (Bld) [#/Vol] 7.4 10*3/uL 3.8-11.6 [facility] XR foot RT min 3V*on 023 XR foot RT min 3V* [facility] [employer] Other XR foot RT min 3V* [facility] [employer] Other XR foot RT min 3V* [address] [place] [address] [employer] Other XR foot RT min 3V* [place] [id number] [employer] Other XR foot RT min 3V* XRay Report [employer] Other XR foot RT min 3V* Signed [employer] Other XR foot RT min 3V* Patient: Aleksandr Sanchez MR#: [id number] [employer] Other XR foot RT min 3V* [id number] [employer] Other XR foot RT min 3V* : 1940 Acct:[id number] [employer] Other XR foot RT min 3V* Age/Sex: 82 / F ADM Date: 09/15/22 [employer] Other XR foot RT min 3V* Loc: [facility] Room: Type : [facility] [employer] Other XR foot RT min 3V* Attending Dr: Sammie Duran [employer]INE[employer] TECH[employer]OLOGISTSujata [employer] Other XR foot RT min 3V* Copies to: Sammie Durna [facility] [employer] Other XR foot RT min 3V* Ordering Provider: [facility] Duran [facility] [employer] Other XR foot RT min 3V* Date of Service: 09/15/22 [employer] Other XR foot RT min 3V* XR/XR foot RT min 3V*: S92.351D [employer] Other XR foot RT min 3V* XR foot RT min 3V* 09/15/2022 1:17 PM [employer] Other XR foot RT min 3V* SIGNS AND SYMPTOMS: Follow-up with mildly displaced fifth metatarsal fracture [employer] Other XR foot RT min 3V* PROTOCOL: Frontal, lateral, and oblique radiographs of the right foot [employer] Other XR foot RT min 3V* COMPARISON: 09/01/2022 [employer] Other XR foot RT min 3V* FINDINGS: [employer] Other XR foot RT min 3V* There is redemonstration of an obliquely oriented fracture of the proximal shaft of the fifth [employer] Other XR foot RT min 3V* metatarsal. There is no significant interval healing. No change in alignment. No additional [employer] Other XR foot RT min 3V* fractures. Findings suggest a remote healed fracture of the second metatarsal. [employer] Other XR foot RT min 3V* XR/XR foot RT min 3V* [employer] Other XR foot RT min 3V* IMPRESSION: [employer] Other XR foot RT min 3V* metatarsal. There is no significant interval healing. No change in alignment. [employer] Other XR foot RT min 3V* Impression dictated by: Gray Mukherjee M.D.09/15/2022 2:05 PM [employer] Other XR foot RT min 3V* Dictation Location: [place] [address] [employer] Other XR foot RT min 3V* Transcribed By: BRANDON 09/15/22 1405 [employer] Other XR foot RT min 3V* Dictated By: Gray Mukherjee II, MD 09/15/22 1404 [employer] Other XR foot RT min 3V* Signed By: [employer] Other XR foot RT min 3V* 09/15/22 1405 [facility] [employer] Other XR foot RT min 3V*on 023 XR foot RT min 3V* [facility] [employer] Other XR foot RT min 3V* [facility] [employer] Other XR foot RT min 3V* [address] [place] [address] [employer] Other XR foot RT min 3V* [place] [address] [employer] Other XR foot RT min 3V* XRay Report [employer] Other XR foot RT min 3V* Signed [employer] Other XR foot RT min 3V* Patient: Aleksandr Sanchez MR#: [id number] [employer] Other XR foot RT min 3V* [id number] [employer] Other XR foot RT min 3V* : 1940 Acct:[id number] [employer] Other XR foot RT min 3V* Age/Sex: 82 / F ADM Date: 09/01/22 [employer] Other XR foot RT min 3V* [facility] [employer] Other XR foot RT min 3V* Attending Dr: Sheldon Xie DO [employer] Other XR foot RT min 3V* Copies to: Sheldon Xie DO [employer] Other XR foot RT min 3V* Ordering Provider: Sheldon Xie DO [employer] Other XR foot RT min 3V* Date of Service: 09/01/22 [employer] Other XR foot RT min 3V* XR/XR foot RT min 3V*: Injury of right foot, initial encounter;Right foot [employer] Other XR foot RT min 3V* pain [employer] Other XR foot RT min 3V* RIGHT FOOT - 3 views [employer] Other XR foot RT min 3V* CLINICAL HISTORY: Bilateral foot pain, swelling and bruising for one day. [employer] Other XR foot RT min 3V* COMPARISON: Right foot 08/12/2015 [employer] Other XR foot RT min 3V* FINDINGS: [employer] Other XR foot RT min 3V* No focal soft tissue abnormality. No radiopaque foreign body. There is a mildly displaced fracture [employer] Other XR foot RT min 3V* involving the shaft of the fifth metatarsal. No additional fractures are seen. No bony erosions. [employer] Other XR foot RT min 3V* XR/XR foot RT min 3V* [employer] Other XR foot RT min 3V* IMPRESSION: [employer] Other XR foot RT min 3V* MILDLY DISPLACED FRACTURE INVOLVING THE SHAFT OF THE FIFTH METATARSAL. [employer] Other XR foot RT min 3V* Impression dictated by: Rusty Sepulveda Jr., D.OMeghan09/01/2022 2:57 PM [employer] Other XR foot RT min 3V* Dictation Location: [facility]--14 [employer] Other XR foot RT min 3V* Transcribed By: BRANDON 09/01/22 [facility] [employer] Other XR foot RT min 3V* Dictated By: Rusty Sepulveda Jr, DO 09/01/22 1454 [employer] Other XR foot RT min 3V* Signed By: [place] [employer] Other XR foot RT min 3V* 09/01/22 1457 [place] [employer] Other COVID Quick Testingon 2021 Result Positive [place] [employer] Other Quick Fluon 07-29-2022 FLUAV Ab CF (S) [Titer] Negative N [email or web address] Other FLUBV Ab CF (S) [Titer] Negative [email or web address] Other Albumin [Mass/volume] in Ser um or PlasmaOrdered By: Sheldon Xie on 06-16-2022 Albumin [Mass/Vol] 3.8 g/dL 3.2-5.5 [facility] Basophils Auto (Bld) [#/Vol] Ordered By: Sheldon Xie on 06-16-2022 Basophils (Bld) [#/Vol] 0.1 10*3/uL 0.0-0.2 [facility] Basophils/100 WBC Auto (Bld) Ordered By: Sheldon Xie on 06-16-2022 Basophils/100 WBC (Bld) 1.0 % . [facility] Creatinine and Glomerular fi ltration rate.predicted panel (S/P/Bld)Ordered By: Sheldon Xie on 06-16-2022 Creatinine [Mass/Vol] 0.75 mg/dL 0.44-1.03 [facility] Eosinophils Auto (Bld) [#/Vo l]Ordered By: Sheldon Xie on 06-16-2022 Eosinophils (Bld) [#/Vol] 0.4 10*3/uL 0.0-0.45 [facility] Eosinophils/100 WBC Auto (Bl d)Ordered By: Sheldon Xie on 06-16-2022 Eosinophils/100 WBC (Bld) 5.8 % . [facility] Erythrocyte distribution wid th Auto (RBC) [Ratio]Ordered By: Sheldon Xie on 06-16-2022 Erythrocyte distribution width (RBC) [Ratio] 13.9 % 11.9-15.3 [facility] Estimated glomerular filtrat ion rate (GFR) non- AmericanOrdered By: Sheldon Xie on 06-16-2022 GFR/1.73 sq M.predicted among non-blacks MDRD (S/P/Bld) [Vol rate/Area] > 60 mL/Min [facility] Globulin Calc (S) [Mass/Vol] Ordered By: Sheldon Xie on 06-16-2022 Globulin (S) [Mass/Vol] 3.0 g/dL [facility] Hematocrit Auto (Bld) [Volum e fraction]Ordered By: Sheldon Xie on 06-16-2022 Hematocrit (Bld) [Volume fraction] 41.1 % 34.0-46.4 [facility] Hemoglobin [Mass/volume] in BloodOrdered By: Sheldon Xie on 06-16-2022 Hemoglobin (Bld) [Mass/Vol] 13.1 g/dL 11.8-15.4 [facility] Laboratory - Hematology and Cell countsOrdered By: Sheldon Xie on 06-16-2022 Nucleated RBC/100 WBC (Bld) [Ratio] 0.1 % 0-0.5 [facility] Leukocytes [#/volume] in Blo od by Automated countOrdered By: Sheldon Xie on 06-16-2022 WBC (Bld) [#/Vol] 6.0 10*3/uL 4.5-11.0 [facility] Lymphocytes Auto (Bld) [#/Vo l]Ordered By: Sheldon Xie on 06-16-2022 Lymphocytes (Bld) [#/Vol] 1.9 10*3/uL 1.00-4.8 [facility] Lymphocytes/100 WBC Auto (Bl d)Ordered By: Sheldon Xie on 06-16-2022 Lymphocytes/100 WBC (Bld) 32.1 % . [facility] MCH Auto (RBC) [Entitic mass ]Ordered By: Sheldon Xie on 06-16-2022 MCH (RBC) [Entitic mass] 32.0 pg 24.7-34.3 [facility] MCHC Auto (RBC) [Mass/Vol]Or dered By: Sheldon Xie on 06-16-2022 MCHC (RBC) [Mass/Vol] 32.0 g/dL 32.0-35.0 [facility] MCV Auto (RBC) [Entitic vol] Ordered By: Sheldon Xie on 06-16-2022 MCV (RBC) [Entitic vol] 99.9 fL 80-100 [facility] Monocytes Auto (Bld) [#/Vol] Ordered By: Sheldon Xie on 06-16-2022 Monocytes (Bld) [#/Vol] 0.6 10*3/uL 0.0-0.8 [facility] Monocytes/100 WBC Auto (Bld) Ordered By: Sheldon Xie on 06-16-2022 Monocytes/100 WBC (Bld) 9.6 % . [facility] Neutrophils Auto (Bld) [#/Vo l]Ordered By: Sheldon Xie on 06-16-2022 Neutrophils (Bld) [#/Vol] 3.1 10*3/uL 1.8-7.7 [facility] Neutrophils/100 WBC Auto (Bl d)Ordered By: Sheldon Xie on 06-16-2022 Neutrophils/100 WBC (Bld) 51.5 % . [facility] No Panel InformationOrdered By: Sheldon Xie on 06-16-2022 Estimated GFR () > 60 mL/Min [facility] Comment on above: GFR estimated refere nce range: According to KDOQI guidelines, <60 ml/min/1.73m2 is sufficient to diagnose a patient with chronic kidney disease. Pharmacy Creatinine Clearance (Chem N/A [facility] Platelet mean volume Auto (B ld) [Entitic vol]Ordered By: Sheldon Xie on 06-16-2022 Platelet mean volume (Bld) [Entitic vol] 9.2 fL 6.3-10.7 [facility] Platelets Auto (Bld) [#/Vol] Ordered By: Sheldon Xie on 06-16-2022 Platelets (Bld) [#/Vol] 361 10*3/uL 150-450 [facility] Protein [Mass/volume] in Ser um or PlasmaOrdered By: Sheldon Xie on 06-16-2022 Protein [Mass/Vol] 6.8 g/dL 6.1-7.9 [facility] RBC Auto (Bld) [#/Vol]Ordere d By: Sheldon Xie on 06-16-2022 RBC (Bld) [#/Vol] 4.11 10*6/uL 3.60-5.00 [place] Serum or plasma alanine wilder otransferase measurement without P-5'-P (enzymatic activiOrdered By: Sheldon Xie on 06-16-2022 ALT No additional P-5'-P [Catalytic activity/Vol] 13 U/L 1060 [facility] Serum or plasma albumin/glob ulin mass ratioOrdered By: Sheldon Xie on 06-16-2022 Albumin/Globulin [Mass ratio] 1.3 {ratio} [facility] Serum or plasma alkaline bailey sphatase measurement (enzymatic activity/volume)Ordered By: Sheldon Xie on 06-16-2022 ALP [Catalytic activity/Vol] 44 U/L 32-92 [facility] Serum or plasma anion gap de terminationOrdered By: Sheldon Xie on 06-16-2022 Anion gap [Moles/Vol] 11.1 mmol/L 6.0-15.0 [facility] Serum or plasma aspartate am inotransferase measurement (enzymatic activity/volume)Ordered By: Sheldon Xie on 06-16-2022 AST [Catalytic activity/Vol] 23 U/L 1042 [facility] Serum or plasma calcium prachi urement (mass/volume)Ordered By: Sheldon Xie on 06-16-2022 Calcium [Mass/Vol] 9.7 mg/dL 8.2-10.2 [facility] Serum or plasma chloride darcy surement (moles/volume)Ordered By: Sheldon Xie on 06-16-2022 Chloride [Moles/Vol] 109 mmol/L 95-114 [facility] Serum or plasma glucose prachi urement (mass/volume)Ordered By: Sheldon Xie on 06-16-2022 Glucose [Mass/Vol] 95 mg/dL 70-100 [facility] Comment on above: ADA recommended refe rence rangeRandom Glucose Reference Range is dependent on time and content of last meal. Glucose of more than 200 mg/dL in a nonstressed, ambulatory subject supports the diagnosis of Diabetes Mellitus. Serum or plasma potassium me asurement (moles/volume)Ordered By: Sehldon Xie on 06-16-2022 Potassium [Moles/Vol] 4.3 mmol/L 3.5-5.1 [facility] Serum or plasma sodium measu rement (moles/volume)Ordered By: Sheldon Xie on 06-16-2022 Sodium [Moles/Vol] 143 mmol/L 136-146 [facility] Serum or plasma total biliru bin measurement (mass/volume)Ordered By: Sheldon Xie on 06-16-2022 Bilirubin [Mass/Vol] 0.8 mg/dL 0.3-1.2 [facility] Serum or plasma total carbon dioxide measurement (moles/volume)Ordered By: Sheldon Xie on 06-16-2022 CO2 [Moles/Vol] 27.2 mmol/L 22.0-30.0 [facility] Serum or plasma urea nitroge n measurement (mass/volume)Ordered By: Sheldon Xie on 06-16-2022 Urea nitrogen [Mass/Vol] 14 mg/dL 9-23 [facility] Creatinine and Glomerular fi ltration rate.predicted panel (S/P/Bld)Ordered By: Sheldon Xie on 06-03-2022 Creatinine [Mass/Vol] 0.81 mg/dL 0.44-1.03 [facility] Estimated glomerular filtrat ion rate (GFR) non- AmericanOrdered By: Sheldon Xie on 06-03-2022 GFR/1.73 sq M.predicted among non-blacks MDRD (S/P/Bld) [Vol rate/Area] > 60 mL/Min [facility] No Panel InformationOrdered By: Sheldon Xie on 06-03-2022 Estimated GFR () > 60 mL/Min [facility] Comment on above: GFR estimated refere nce range: According to KDOQI guidelines, <60 ml/min/1.73m2 is sufficient to diagnose a patient with chronic kidney disease. Pharmacy Creatinine Clearance (Chem N/A [facility] Serum or plasma urea nitroge n measurement (mass/volume)Ordered By: Sheldon Xie on 06-03-2022 Urea nitrogen [Mass/Vol] 19 mg/dL 9- [facility] PULMONARY FUNCTION TESTon PULMONARY FUNCTION [...] with activity/ambulation. Clinical correlation required. Normal [facility] Albumin [Mass/volume] in Ser um or PlasmaOrdered By: Sheldon Xie on 04-01-2022 Albumin [Mass/Vol] 4.1 g/dL 3.2-5.5 [facility] Basophils Auto (Bld) [#/Vol] Ordered By: Sheldon Xie on 04-01-2022 Basophils (Bld) [#/Vol] 0.1 10*3/uL 0.0-0.2 [facility] Basophils/100 WBC Auto (Bld) Ordered By: Sheldon Xie on 04-01-2022 Basophils/100 WBC (Bld) 1.0 % . [facility] Blood hemoglobin measurement (mass/volume)Ordered By: Sheldon Xie on 04-01-2022 Hemoglobin (Bld) [Mass/Vol] 13.4 g/dL 11.8-15.4 [facility] Blood leukocytes automated c ount (number/volume)Ordered By: Sheldon Xie on 04-01-2022 WBC (Bld) [#/Vol] 8.5 10*3/uL 4.5-11.0 [facility] Cholesterol [Mass/volume] in Serum or PlasmaOrdered By: Sheldon Xie on 04-01-2022 Cholesterol [Mass/Vol] 175 mg/dL 140-200 [facility] Comment on above: Chol less than 200 m g/dl low risk Chol 201-239 mg/dl borderline risk Chol 240 mg/dl and greater high risk Chol less than 200 m g/dl low riskChol 201-239 mg/dl borderline riskChol 240 mg/dl and greater high risk Cholesterol in LDL Calc [Mas s/Vol]Ordered By: Sheldon Xie on 04-01-2022 Cholesterol in LDL [Mass/Vol] 110 mg/dL 0-100 [facility] Comment on above: LDL ATP [...] 04-01-2022 Cholesterol in VLDL [Mass/Vol] 14 mg/dL [facility] Creatinine and Glomerular fi ltration rate.predicted panel (S/P/Bld)Ordered By: Sheldon Xie on 04-01-2022 Creatinine [Mass/Vol] 0.93 mg/dL 0.44-1.03 [facility] Eosinophils Auto (Bld) [#/Vo l]Ordered By: Sheldon Xie on 04-01-2022 Eosinophils (Bld) [#/Vol] 0.3 10*3/uL 0.0-0.45 [facility] Eosinophils/100 WBC Auto (Bl d)Ordered By: Sheldon Xie on 04-01-2022 Eosinophils/100 WBC (Bld) 3.2 % . [facility] Erythrocyte distribution wid th Auto (RBC) [Ratio]Ordered By: Sheldon Xie on 04-01-2022 Erythrocyte distribution width (RBC) [Ratio] 14.1 % 11.9-15.3 [facility] Estimated glomerular filtrat ion rate (GFR) non- AmericanOrdered By: Sheldon Xie on 04-01-2022 GFR/1.73 sq M.predicted among non-blacks MDRD (S/P/Bld) [Vol rate/Area] 58 mL/Min [facility] Globulin Calc (S) [Mass/Vol] Ordered By: Sheldon Xie on 04-01-2022 Globulin (S) [Mass/Vol] 2.7 g/dL [facility] Hematocrit Auto (Bld) [Volum e fraction]Ordered By: Sheldon Xie on 04-01-2022 Hematocrit (Bld) [Volume fraction] 41.7 % 34.0-46.4 [facility] Laboratory - Hematology and Cell countsOrdered By: Sheldon Xie on 04-01-2022 Nucleated RBC/100 WBC (Bld) [Ratio] 0.0 % 0-0.5 [facility] Lymphocytes Auto (Bld) [#/Vo l]Ordered By: Sheldon Xie on 04-01-2022 Lymphocytes (Bld) [#/Vol] 1.6 10*3/uL 1.00-4.8 [facility] Lymphocytes/100 WBC Auto (Bl d)Ordered By: Sheldon Xie on 04-01-2022 Lymphocytes/100 WBC (Bld) 18.4 % . [facility] MCH Auto (RBC) [Entitic mass ]Ordered By: Sheldon Xie on 04-01-2022 MCH (RBC) [Entitic mass] 30.9 pg 24.7-34.3 [facility] MCHC Auto (RBC) [Mass/Vol]Or dered By: Sheldon Xie on 04-01-2022 MCHC (RBC) [Mass/Vol] 32.1 g/dL 32.0-35.0 [facility] MCV Auto (RBC) [Entitic vol] Ordered By: Sheldon Xie on 04-01-2022 MCV (RBC) [Entitic vol] 96.5 fL 80-100 [facility] Monocytes Auto (Bld) [#/Vol] Ordered By: Sheldon Xie on 04-01-2022 Monocytes (Bld) [#/Vol] 0.7 10*3/uL 0.0-0.8 [facility] Monocytes/100 WBC Auto (Bld) Ordered By: Sheldon Xie on 04-01-2022 Monocytes/100 WBC (Bld) 8.2 % . [facility] Neutrophils Auto (Bld) [#/Vo l]Ordered By: Sheldon Xie on 04-01-2022 Neutrophils (Bld) [#/Vol] 5.8 10*3/uL 1.8-7.7 [facility] Neutrophils/100 WBC Auto (Bl d)Ordered By: Sheldon Xie on 04-01-2022 Neutrophils/100 WBC (Bld) 69.2 % . [facility] No Panel InformationOrdered By: Sheldon Xie on 04-01-2022 Estimated GFR () > 60 mL/Min [facility] Comment on above: GFR estimated refere nce range: According to KDOQI guidelines, <60 ml/min/1.73m2 is sufficient to diagnose a patient with chronic kidney disease. Pharmacy Creatinine Clearance (Chem N/A [facility] Platelet mean volume Auto (B ld) [Entitic vol]Ordered By: Sheldon Xie on 04-01-2022 Platelet mean volume (Bld) [Entitic vol] 9.2 fL 6.3-10.7 [facility] Platelets Auto (Bld) [#/Vol] Ordered By: Sheldon Xie on 04-01-2022 Platelets (Bld) [#/Vol] 300 10*3/uL 150-450 [facility] Protein [Mass/volume] in Ser um or PlasmaOrdered By: Sheldon Xie on 04-01-2022 Protein [Mass/Vol] 6.8 g/dL 6.1-7.9 [facility] RBC Auto (Bld) [#/Vol]Ordere d By: Sheldon Xie on 04-01-2022 RBC (Bld) [#/Vol] 4.33 10*6/uL 3.60-5.00 [place] Serum or plasma alanine wilder otransferase measurement without P-5'-P (enzymatic activiOrdered By: Sheldon Xie on 04-01-2022 ALT No additional P-5'-P [Catalytic activity/Vol] 15 U/L 10-60 [facility] Serum or plasma albumin/glob ulin mass ratioOrdered By: Sheldon Xie on 04-01-2022 Albumin/Globulin [Mass ratio] 1.5 {ratio} [facility] Serum or plasma alkaline bailey sphatase measurement (enzymatic activity/volume)Ordered By: Sheldon Xie on 04-01-2022 ALP [Catalytic activity/Vol] 49 U/L 32-92 [facility] Serum or plasma aspartate am inotransferase measurement (enzymatic activity/volume)Ordered By: Sheldon Xie on 04-01-2022 AST [Catalytic activity/Vol] 22 U/L 10-42 [facility] Serum or plasma calcium prachi urement (mass/volume)Ordered By: Sheldon Xie on 04-01-2022 Calcium [Mass/Vol] 10.4 mg/dL 8.2-10.2 [facility] Serum or plasma chloride darcy surement (moles/volume)Ordered By: Sheldon Xie on 04-01-2022 Chloride [Moles/Vol] 106 mmol/L 95-114 [facility] Serum or plasma glucose prachi urement (mass/volume)Ordered By: Sheldon Xie on 04-01-2022 Glucose [Mass/Vol] 92 mg/dL 70-100 [facility] Comment on above: ADA recommended refe rence [...] Cholesterol in HDL [Mass/Vol] 51 mg/dL 35-85 [facility] Comment on above: HDL CHOL ATP-III CLA SSIFICATION Cardiovascular Risk HDL > or equal to 60 mg/dL LOW HDL < 40 mg/dL HIGH HDL CHOL ATP-III CLA SSIFICATION Cardiovascular RiskHDL > or equal to 60 mg/dL LOWHDL < 40 mg/dL HIGH Serum or plasma potassium me asurement (moles/volume)Ordered By: Sheldon Xie on 04-01-2022 Potassium [Moles/Vol] 4.5 mmol/L 3.5-5.1 [facility] Serum or plasma sodium measu rement (moles/volume)Ordered By: Sheldon Xie on 04-01-2022 Sodium [Moles/Vol] 142 mmol/L 136-146 [facility] Serum or plasma total biliru bin measurement (mass/volume)Ordered By: Sheldon Xie on 04-01-2022 Bilirubin [Mass/Vol] 0.6 mg/dL 0.3-1.2 [facility] Serum or plasma total carbon dioxide measurement (moles/volume)Ordered By: Sheldon Xie on 04-01-2022 CO2 [Moles/Vol] 27.2 mmol/L 22.0-30.0 [facility] Serum or plasma total choles terol/high density lipoprotein (HDL) cholesterol mass ratOrdered By: Sheldon Xie on 04-01-2022 Cholesterol.total/Renu sterol in HDL [Mass ratio] 3.4 {ratio} <5.0 [facility] Serum or plasma urea nitroge n measurement (mass/volume)Ordered By: Sheldon Xie on 04-01-2022 Urea nitrogen [Mass/Vol] 29 mg/dL 9-23 [facility] TSH DL <= 0.005 mIU/L QnOrde red By: Sheldon Xie on 04-01-2022 TSH Qn 2.53 m[IU]/L 0.45-5.33 [facility] Triglyceride [Mass/volume] i n Serum or PlasmaOrdered By: Sheldon Xie on 04-01-2022 Triglyceride [Mass/Vol] 71 mg/dL 35-149 [facility] Comment on above: TRIG ATP III [...] on 02-09-2022 Creatinine [Mass/Vol] 0.64 mg/dL 0.44-1.03 [facility] Estimated glomerular filtrat ion rate (GFR) non- AmericanOrdered By: Sheldon Xie on 02-09-2022 GFR/1.73 sq M.predicted among non-blacks MDRD (S/P/Bld) [Vol rate/Area] > 60 mL/Min [facility] No Panel InformationOrdered By: Sheldon Xie on 02-09-2022 Estimated GFR () > 60 mL/Min [facility] Comment on above: GFR estimated refere nce range: According to KDOQI guidelines, <60 ml/min/1.73m2 is sufficient to diagnose a patient with chronic kidney disease. Pharmacy Creatinine Clearance (Chem N/A [facility] Serum or plasma calcium prachi urement (mass/volume)Ordered By: Sheldon Xie on 02-09-2022 Calcium [Mass/Vol] 10.0 mg/dL 8.2-10.2 [facility] Serum or plasma chloride darcy surement (moles/volume)Ordered By: Sheldon Xie on 02-09-2022 Chloride [Moles/Vol] 103 mmol/L 95-114 [facility] Serum or plasma glucose prachi urement (mass/volume)Ordered By: Sheldon Xie on 02-09-2022 Glucose [Mass/Vol] 95 mg/dL 70-100 [facility] Comment on above: ADA recommended refe rence range Random Glucose Reference Range is dependent on time and content of last meal. Glucose of more than 200 mg/dL in a nonstressed, ambulatory subject supports the diagnosis of Diabetes Mellitus. Serum or plasma potassium me asurement (moles/volume)Ordered By: Sheldon Xie on 02-09-2022 Potassium [Moles/Vol] 4.0 mmol/L 3.5-5.1 [facility] Serum or plasma sodium measu rement (moles/volume)Ordered By: Sheldon Xie on 02-09-2022 Sodium [Moles/Vol] 141 mmol/L 136-146 [facility] Serum or plasma total carbon dioxide measurement (moles/volume)Ordered By: Sheldon Xie on 02-09-2022 CO2 [Moles/Vol] 26.5 mmol/L 22.0-30.0 [facility] Serum or plasma urea nitroge n measurement (mass/volume)Ordered By: Sheldon Xie on 02-09-2022 Urea nitrogen [Mass/Vol] 18 mg/dL 9-23 [facility] Office Visit (Cardiology)on 02-08-2022 Follow-up [...] Recorded: 08Feb2022 11:19AM Heart Rate78, R Radial [id number], LUE, Sitting [id number], LUE, Sitting Height5 ft 2 in [id number] lb BMI Xxzhhgcrye37.03 kg/m2 BSA Calculated1.51 Tobacco Useb) No PHQ-2 [...] Psychiatric willy (more content not included)... Normal [facility] Tobacco Screening.on 022 Adult depression screening assessment No [facility] [employer] DO Work Phone: Fall risk assessment b) One or more fall s in the last year [facility] [employer] 250 DO Work Phone: Tobacco use status [facility] b) No M [facility] [employer] 250 DO Work Phone: Vital Signs Date Time Vital Sign Value Performing Clinician Polo mcknight 03-17-2025 09:32-0400 Body height 157.48 cm Sheldon Kuns DO Work Phone: [facility] 03-17-2025 09:32-0400 Body mass index (BMI) [Ratio] 17.9 kg/m2 Sheldon Kuns DO Work Phone: [facility] 03-17-2025 09:32-0400 Body weight 44.62 kg Sheldon Kuns DO Work Phone: [facility] 03-17-2025 09:32-0400 Diastolic blood pressure 62 mm[Hg] Sheldon Kuns DO Work Phone: [facility] 03-17-2025 09:32-0400 Heart rate 82 /min Sheldon Kuns DO Work Phone: [facility] 03-17-2025 09:32-0400 Respiratory rate 20 /min Sheldon Kuns DO Work Phone: [facility] 03-17-2025 09:32-0400 SaO2% (BldA) [Mass fraction] 93 % Sheldon Kuns DO Work Phone: [facility] 03-17-2025 09:32-0400 Systolic blood pressure 136 mm[Hg] Sheldon Kuns DO Work Phone: [facility] 02-12-2025 13:40-0400 Body height 157.48 cm Sheldon Kuns DO Work Phone: [facility] 02-12-2025 13:40-0400 Body mass index (BMI) [Ratio] 17.4 kg/m2 Sheldon Kuns DO Work Phone: [facility] 02-12-2025 13:40-0400 Body weight 43.31 kg Sheldon Kuns DO Work Phone: [facility] 02-12-2025 13:40-0400 Diastolic blood pressure 60 mm[Hg] Sheldon Kuns DO Work Phone: [facility] 02-12-2025 13:40-0400 Heart rate 80 /min Sheldon Kuns DO Work Phone: [facility] 02-12-2025 13:40-0400 Inhaled oxygen flow rate 1 L/min Sheldon Kuns DO Work Phone: [facility] 02-12-2025 13:40-0400 Respiratory rate 18 /min Sheldon Kuns DO Work Phone: [facility] 02-12-2025 13:40-0400 SaO2% (BldA) [Mass fraction] 98 % Sheldon Kuns DO Work Phone: [facility] 02-12-2025 13:40-0400 Systolic blood pressure 122 mm[Hg] Sheldon Kuns DO Work Phone: [facility] 12-24-2024 14:34-0400 Body height 157.48 cm Sheldon Kuns DO Work Phone: [facility] 12-24-2024 14:34-0400 Body mass index (BMI) [Ratio] 17.7 kg/m2 Sheldon Kuns DO Work Phone: [facility] 12-24-2024 14:34-0400 Body weight 43.99 kg Sheldon Kuns DO Work Phone: [facility] 12-24-2024 14:34-0400 Diastolic blood pressure 60 mm[Hg] Hseldon Kuns DO Work Phone: [facility] 12-24-2024 14:34-0400 Heart rate 60 /min Sheldon Kuns DO Work Phone: [facility] 12-24-2024 14:34-0400 Respiratory rate 16 /min Sheldon Kuns DO Work Phone: [facility] 12-24-2024 14:34-0400 SaO2% (BldA) [Mass fraction] 97 % Sheldon Kuns DO Work Phone: [facility] 12-24-2024 14:34-0400 Systolic blood pressure 126 mm[Hg] Sheldon Kuns DO Work Phone: [facility] 09-19-2024 12:39-0500 Body height 157.48 cm [facility] 09-19-2024 12:39-0500 Body mass index (BMI) [Ratio] 17.4 kg/m2 [facility] 09-19-2024 12:39-0500 Body weight 43.09 kg [facility] 09-19-2024 12:39-0500 Diastolic blood pressure 62 mm[Hg] [facility] 09-19-2024 12:39-0500 Heart rate 65 /min [facility] 09-19-2024 12:39-0500 Respiratory rate 16 /min [facility] 09-19-2024 12:39-0500 SaO2% (BldA) [Mass fraction] 89 % [facility] 09-19-2024 12:39-0500 Systolic blood pressure 110 mm[Hg] [facility] 07-09-2024 15:00-0500 Body height 157.48 cm Sheldon Kuns DO Work Phone: [facility] 07-09-2024 15:00-0500 Body mass index (BMI) [Ratio] 18.6 kg/m2 Sheldon Kuns DO Work Phone: [facility] 07-09-2024 15:00-0500 Body weight 46.26 kg Sheldon Kuns DO Work Phone: [facility] 07-09-2024 15:00-0500 Diastolic blood pressure 74 mm[Hg] Sheldon Kuns DO Work Phone: [facility] 07-09-2024 15:00-0500 Heart rate 70 /min Sheldon Kuns DO Work Phone: [facility] 07-09-2024 15:00-0500 Respiratory rate 20 /min Sheldon Kuns DO Work Phone: [facility] 07-09-2024 15:00-0500 SaO2% (BldA) [Mass fraction] 92 % Sheldon Kuns DO Work Phone: [facility] 07-09-2024 15:00-0500 Systolic blood pressure 122 mm[Hg] Sheldon Kuns DO Work Phone: [facility] 06-18-2024 12:33-0400 Body height 157.48 cm DO Sheldon Kuns Work Phone: [facility] 06-18-2024 12:33-0400 Body mass index (BMI) [Ratio] 19 kg/m2 DO Sheldon Kuns Work Phone: [facility] 06-18-2024 12:33-0400 Body weight 47.17 kg DO Sheldon Kuns Work Phone: [facility] 06-18-2024 12:33-0400 Diastolic blood pressure 70 mm[Hg] DO Sheldon Kuns Work Phone: [facility] 06-18-2024 12:33-0400 Heart rate 75 /min DO Sheldon Kuns Work Phone: [facility] 06-18-2024 12:33-0400 Respiratory rate 16 /min DO Sheldon Kuns Work Phone: [facility] 06-18-2024 12:33-0400 SaO2% (BldA) [Mass fraction] 92 % DO Sheldon Kuns Work Phone: [facility] 06-18-2024 12:33-0400 Systolic blood pressure 128 mm[Hg] DO Sheldon Kuns Work Phone: [facility] 05-16-2024 08:40-0400 Body height 157.48 cm DO Sheldon Kuns Work Phone: [facility] 05-16-2024 08:40-0400 Body mass index (BMI) [Ratio] 19.3 kg/m2 DO Sheldon Kuns Work Phone: [facility] 05-16-2024 08:40-0400 Body weight 48.08 kg DO Sheldon Kuns Work Phone: [facility] 05-16-2024 08:40-0400 Diastolic blood pressure 75 mm[Hg] DO Sheldon Kuns Work Phone: [facility] 05-16-2024 08:40-0400 Heart rate 88 /min DO Sheldon Kuns Work Phone: [facility] 05-16-2024 08:40-0400 Respiratory rate 18 /min DO Sheldon Kuns Work Phone: [facility] 05-16-2024 08:40-0400 SaO2% (BldA) [Mass fraction] 97 % DO Sheldon Kuns Work Phone: [facility] 05-16-2024 08:40-0400 Systolic blood pressure 145 mm[Hg] DO Sheldon Kuns Work Phone: [facility] 03-19-2024 14:00-0400 Body height 157.48 cm DO Sheldon Kuns Work Phone: [facility] 03-19-2024 14:00-0400 Body mass index (BMI) [Ratio] 19.9 kg/m2 DO Sheldon Kuns Work Phone: [facility] 03-19-2024 14:00-0400 Body weight 49.44 kg DO Sheldon Kuns Work Phone: [facility] 03-19-2024 14:00-0400 Diastolic blood pressure 60 mm[Hg] DO Sheldon Kuns Work Phone: [facility] 03-19-2024 14:00-0400 Heart rate 68 /min DO Sheldon Kuns Work Phone: [facility] 03-19-2024 14:00-0400 Respiratory rate 18 /min DO Shedlon Kuns Work Phone: [facility] 03-19-2024 14:00-0400 SaO2% (BldA) [Mass fraction] 91 % DO Sheldon Kuns Work Phone: [facility] 03-19-2024 14:00-0400 Systolic blood pressure 138 mm[Hg] DO Sheldon Kuns Work Phone: [facility] 02-09-2024 13:16-0400 Body height 157.5 cm Ronnie Amin MD Work Phone: [facility] 02-09-2024 13:16-0400 Body mass index (BMI) [Ratio] 19.94 kg/m2 Ronnie Amin MD Work Phone: [facility] 02-09-2024 13:16-0400 Body weight 49.44 kg Ronnie Amin MD Work Phone: [facility] 02-09-2024 13:16-0400 Diastolic blood pressure 58 mm[Hg] Ronnie Amin MD Work Phone: [facility] 02-09-2024 13:16-0400 Heart rate 68 /min Ronnie Amin MD Work Phone: [facility] 02-09-2024 13:16-0400 Systolic blood pressure 100 mm[Hg] Ronnie Amin MD Work Phone: [facility] 01-29-2024 10:35-0400 Diastolic blood pressure 60 mm[Hg] DO Sheldon Kuns Work Phone: [facility] 01-29-2024 10:35-0400 Heart rate 76 /min DO Sheldon Kuns Work Phone: [facility] 01-29-2024 10:35-0400 Respiratory rate 16 /min DO Sheldon Kuns Work Phone: [facility] 01-29-2024 10:35-0400 SaO2% (BldA) [Mass fraction] 91 % DO Sheldon Kuns Work Phone: [facility] 01-29-2024 10:35-0400 Systolic blood pressure 105 mm[Hg] DO Sheldon Kuns Work Phone: [facility] 01-09-2024 15:02-0400 Body height 157.48 cm DO Sheldon Kuns Work Phone: [facility] 01-09-2024 15:02-0400 Body mass index (BMI) [Ratio] 20.2 kg/m2 DO Sheldon Kuns Work Phone: [facility] 01-09-2024 15:02-0400 Body temperature 97.2 [degF] DO Sheldon Kuns Work Phone: [facility] 01-09-2024 15:02-0400 Body weight 50.34 kg DO Sheldon Kuns Work Phone: [facility] 01-09-2024 15:02-0400 Diastolic blood pressure 71 mm[Hg] DO Sheldon Kuns Work Phone: [facility] 01-09-2024 15:02-0400 Heart rate 72 /min DO Sheldon Kuns Work Phone: [facility] 01-09-2024 15:02-0400 Respiratory rate 20 /min DO Sheldon Kuns Work Phone: [facility] 01-09-2024 15:02-0400 SaO2% (BldA) [Mass fraction] 93 % DO Sheldon Kuns Work Phone: [facility] 01-09-2024 15:02-0400 Systolic blood pressure 145 mm[Hg] DO Sheldon Kuns Work Phone: [facility] 12-14-2023 12:32-0400 Body height 157.48 cm DO Sheldon Kuns Work Phone: [facility] 12-14-2023 12:32-0400 Body mass index (BMI) [Ratio] 19.3 kg/m2 DO Sheldon Kuns Work Phone: [facility] 12-14-2023 12:32-0400 Body weight 48.08 kg DO Sheldon Kuns Work Phone: [facility] 12-14-2023 12:32-0400 Diastolic blood pressure 60 mm[Hg] DO Sheldon Kuns Work Phone: [facility] 12-14-2023 12:32-0400 Heart rate 70 /min DO Sheldon Kuns Work Phone: [facility] 12-14-2023 12:32-0400 SaO2% (BldA) [Mass fraction] 96 % DO Sheldon Kuns Work Phone: [facility] 12-14-2023 12:32-0400 Systolic blood pressure 114 mm[Hg] DO Sheldon Kuns Work Phone: [facility] 11-15-2023 12:49-0400 Body height 157.48 cm DO Sheldon Kuns Work Phone: [facility] 11-15-2023 12:49-0400 Body mass index (BMI) [Ratio] 19.9 kg/m2 DO Sheldon Kuns Work Phone: [facility] 11-15-2023 12:49-0400 Body weight 49.44 kg DO Sheldon Kuns Work Phone: [facility] 11-15-2023 12:49-0400 Diastolic blood pressure 66 mm[Hg] DO Sheldon Kuns Work Phone: [facility] 11-15-2023 12:49-0400 Heart rate 79 /min DO Sheldon Kuns Work Phone: [facility] 11-15-2023 12:49-0400 Respiratory rate 20 /min DO Sheldon Kuns Work Phone: [facility] 11-15-2023 12:49-0400 SaO2% (BldA) [Mass fraction] 89 % DO Sheldon Kuns Work Phone: [facility] 11-15-2023 12:49-0400 Systolic blood pressure 128 mm[Hg] DO Sheldon Kuns Work Phone: [facility] 10-17-2023 14:58-0500 Body height 157.48 cm DO Sheldon Kuns Work Phone: [facility] 10-17-2023 14:58-0500 Body mass index (BMI) [Ratio] 19.3 kg/m2 DO Sheldon Kuns Work Phone: [facility] 10-17-2023 14:58-0500 Body temperature 98 [degF] DO Sheldon Kuns Work Phone: [facility] 10-17-2023 14:58-0500 Body weight 48.08 kg DO Sheldon Kuns Work Phone: [facility] 10-17-2023 14:58-0500 Diastolic blood pressure 74 mm[Hg] DO Sheldon Kuns Work Phone: [facility] 10-17-2023 14:58-0500 Heart rate 87 /min DO Sheldon Kuns Work Phone: [facility] 10-17-2023 14:58-0500 Respiratory rate 2 /min DO Shelodn Kuns Work Phone: [facility] 10-17-2023 14:58-0500 SaO2% (BldA) [Mass fraction] 95 % DO Sheldon Kuns Work Phone: [facility] 10-17-2023 14:58-0500 Systolic blood pressure 134 mm[Hg] DO Sheldon Kuns Work Phone: [facility] 08-09-2023 10:00-0500 Body height 157.48 cm Dre Looney Other [facility] 12-13-2023 10:00-0500 Body mass index (BMI) [Ratio] 19.57 kg/m2 Dre Dickersonno Other [employer] Other 08-09-2023 10:00-0500 Body temperature 96.6 [degF] Javeddave Dickersonno Other [employer] Other 08-09-2023 10:00-0500 Body weight 48.54 kg Dre Dickersonno Other [employer] Other 08-09-2023 10:00-0500 Body weight 48.53 kg DO KnowRe Work Phone: [facility] 08-09-2023 10:00-0500 Diastolic blood pressure 61 mm[Hg] Kadeemscott YoonAure Other [facility] 08-09-2023 10:00-0500 Respiratory rate 20 /min Javeddave Dickersonno Other [employer] Other 08-09-2023 10:00-0500 SaO2% (BldA) [Mass fraction] 97 % Javeddave Dickersonno Other [employer] Other 08-09-2023 10:00-0500 Systolic blood pressure 113 mm[Hg] Kadeemscott YoonAure Other [facility] 07-04-2023 10:30-0500 Body height 157.48 cm Know[employer] Other [employer] Other 07-04-2023 10:30-0500 Body mass index (BMI) [Ratio] 20.12 kg/m2 Know[employer] Other [employer] Other 07-04-2023 10:30-0500 Body weight 49.9 kg Sheldon Kuns Other [employer] Other 07-04-2023 10:30-0500 Diastolic blood pressure 70 mm[Hg] Sheldon Kuns Other [employer] Other 07-04-2023 10:30-0500 Respiratory rate 18 /min Sheldon Kuns Other [employer] Other 07-04-2023 10:30-0500 SaO2% (BldA) [Mass fraction] 95 % Sheldon Kuns Other [employer] Other 07-04-2023 10:30-0500 Systolic blood pressure 130 mm[Hg] Sheldon Kuns Other [employer] Other 05-30-2023 12:30-0400 Body height 157.48 cm Sheldon Kuns Other [employer] Other 05-30-2023 12:30-0400 Body mass index (BMI) [Ratio] 19.82 kg/m2 Sheldon Kuns Other [employer] Other 05-30-2023 12:30-0400 Body weight 49.17 kg Sheldon Kuns Other [employer] Other 05-30-2023 12:30-0400 Diastolic blood pressure 66 mm[Hg] Sheldon Kuns Other [employer] Other 05-30-2023 12:30-0400 Respiratory rate 18 /min Sheldon Kuns Other [employer] Other 05-30-2023 12:30-0400 SaO2% (BldA) [Mass fraction] 94 % Sheldon Kuns Other [employer] Other 05-30-2023 12:30-0400 Systolic blood pressure 128 mm[Hg] Sheldon Kuns Other [employer] Other 11-29-2022 13:30-0400 Body height 157.48 cm Sheldon Kuns Other [employer] Other 11-29-2022 13:30-0400 Body mass index (BMI) [Ratio] 18.36 kg/m2 Sheldon Kuns Other [employer] Other 11-29-2022 13:30-0400 Body weight 45.54 kg Sheldon Kuns Other [employer] Other 11-29-2022 13:30-0400 Diastolic blood pressure 58 mm[Hg] Sheldon Kuns Other [employer] Other 11-29-2022 13:30-0400 Respiratory rate 16 /min Sheldon Kuns Other [employer] Other 11-29-2022 13:30-0400 SaO2% (BldA) [Mass fraction] 93 % Sheldon Kuns Other [employer] Other 11-29-2022 13:30-0400 Systolic blood pressure 121 mm[Hg] Sheldon Kuns Other [employer] Other 09-29-2022 13:30-0500 Body height 157.48 cm Sheldon Kuns Other [employer] Other 09-29-2022 13:30-0500 Body mass index (BMI) [Ratio] 18.65 kg/m2 Sheldon Kuns Other [employer] Other 09-29-2022 13:30-0500 Body weight 46.27 kg Sheldon Kuns Other [employer] Other 09-29-2022 13:30-0500 Diastolic blood pressure 64 mm[Hg] Sheldon Kuns Other [employer] Other 09-29-2022 13:30-0500 Respiratory rate 16 /min Sheldon Kuns Other [employer] Other 09-29-2022 13:30-0500 SaO2% (BldA) [Mass fraction] 88 % Sheldon Kuns Other [employer] Other 09-29-2022 13:30-0500 Systolic blood pressure 132 mm[Hg] Sheldon Kuns Other [employer] Other 09-01-2022 13:30-0500 Body height 157.48 cm Sheldon Kuns Other [employer] Other 09-01-2022 13:30-0500 Body mass index (BMI) [Ratio] 18.84 kg/m2 Sheldon Kuns Other [employer] Other 09-01-2022 13:30-0500 Body weight 46.72 kg Sheldon Kuns Other [employer] Other 09-01-2022 13:30-0500 Diastolic blood pressure 64 mm[Hg] Sheldon Kuns Other [employer] Other 09-01-2022 13:30-0500 Respiratory rate 16 /min Sheldon Kuns Other [employer] Other 09-01-2022 13:30-0500 SaO2% (BldA) [Mass fraction] 98 % Sheldon Kuns Other [employer] Other 09-01-2022 13:30-0500 Systolic blood pressure 104 mm[Hg] Sheldon Kuns Other [employer] Other 06-23-2022 13:30-0400 Body height 157.48 cm Sheldon Kuns Other [employer] Other 06-23-2022 13:30-0400 Body mass index (BMI) [Ratio] 19.57 kg/m2 Sheldon Kuns Other [employer] Other 06-23-2022 13:30-0400 Body weight 48.54 kg Sheldon Kuns Other [employer] Other 06-23-2022 13:30-0400 Diastolic blood pressure 60 mm[Hg] Sheldon Kuns Other [employer] Other 06-23-2022 13:30-0400 Respiratory rate 16 /min Sheldon Kuns Other [employer] Other 06-23-2022 13:30-0400 SaO2% (BldA) [Mass fraction] 98 % Sheldon Kuns Other [employer] Other 06-23-2022 13:30-0400 Systolic blood pressure 134 mm[Hg] Sheldon Kuns Other [employer] Other 05-24-2022 13:30-0400 Body height 157.48 cm Sheldon Kuns Other [employer] Other 05-24-2022 13:30-0400 Body mass index (BMI) [Ratio] 19.75 kg/m2 Sheldon Kuns Other [employer] Other 05-24-2022 13:30-0400 Body weight 48.99 kg Sheldon Kuns Other [employer] Other 05-24-2022 13:30-0400 Diastolic blood pressure 62 mm[Hg] Sheldon Kuns Other [employer] Other 05-24-2022 13:30-0400 Respiratory rate 16 /min Sheldon Kuns Other [employer] Other 05-24-2022 13:30-0400 SaO2% (BldA) [Mass fraction] 98 % Sheldon Kuns Other [employer] Other 05-24-2022 13:30-0400 Systolic blood pressure 122 mm[Hg] Sheldon Kuns Other [employer] Other 04-18-2022 12:55-0400 Body temperature 97.3 [degF] DO Sheldon Kuns Work Phone: [facility] 04-18-2022 12:55-0400 Diastolic blood pressure 62 mm[Hg] DO Sheldon Kuns Work Phone: [facility] 04-18-2022 12:55-0400 Heart rate 73 /min DO Sheldon Kuns Work Phone: [facility] 04-18-2022 12:55-0400 Respiratory rate 18 /min DO Sheldon Kuns Work Phone: [facility] 04-18-2022 12:55-0400 SaO2% (BldA) [Mass fraction] 95 % DO Sheldon Kuns Work Phone: [facility] 04-18-2022 12:55-0400 Systolic blood pressure 128 mm[Hg] DO Sheldon Kuns Work Phone: [facility] 03-22-2022 13:30-0400 Body height 157.48 cm Sheldon Kuns Other [employer] Other 03-22-2022 13:30-0400 Body mass index (BMI) [Ratio] 20.48 kg/m2 Sheldon Kuns Other [employer] Other 03-22-2022 13:30-0400 Body weight 50.8 kg Sheldon Kuns Other [employer] Other 03-22-2022 13:30-0400 Diastolic blood pressure 70 mm[Hg] Sheldon Kuns Other [employer] Other 03-22-2022 13:30-0400 Respiratory rate 16 /min Sheldon Kuns Other [employer] Other 03-22-2022 13:30-0400 SaO2% (BldA) [Mass fraction] 96 % Sheldon Kuns Other [employer] Other 03-22-2022 13:30-0400 Systolic blood pressure 130 mm[Hg] Sheldon Kuns Other [employer] Other 02-08-2022 11:19-0400 Body height 157.48 cm Sheldon R Kuns Work Phone: [facility] [address] DO Work Phone: 02-08-2022 11:19-0400 Body mass index (BMI) [Ratio] 21.03 kg/m2 Sheldon R Kuns Work Phone: [facility] [address] DO Work Phone: 02-08-2022 11:19-0400 Body surface area Derived from formula 1.51 m2 Sheldon R Longs Work Phone: [facility] [address] DO Work Phone: 02-08-2022 11:19-0400 Body weight 52.16 kg Sheldon R Kuns Work Phone: [facility] [address] DO Work Phone: 02-08-2022 11:19-0400 Diastolic blood pressure 70 mm[Hg] Sheldon R Kuns Work Phone: [facility] [address] DO Work Phone: 02-08-2022 11:19-0400 Heart rate 78 /min Sheldon R Kuns Work Phone: [facility] [address] DO Work Phone: 02-08-2022 11:19-0400 Systolic blood pressure 142 mm[Hg] Sheldon R Longs Work Phone: [facility] [employer] DO Work Phone: 12-21-2021 14:00-0400 Body height 157.48 cm Sheldon Xie Other [employer] Other 12-21-2021 14:00-0400 Body mass index (BMI) [Ratio] 20.67 kg/m2 Sheldon Xie Other [employer] Other 12-21-2021 14:00-0400 Body weight 51.26 kg Sheldon Kuns Other [employer] Other 12-21-2021 14:00-0400 Diastolic blood pressure 74 mm[Hg] Sheldon Kuns Other [employer] Other 12-21-2021 14:00-0400 Respiratory rate 16 /min Sheldon Kuns Other [employer] Other 12-21-2021 14:00-0400 SaO2% (BldA) [Mass fraction] 94 % Sheldon Kuns Other [employer] Other 12-21-2021 14:00-0400 Systolic blood pressure 138 mm[Hg] Sheldon Kuns Other [employer] Other 12-02-2021 14:30-0400 Body height 157.48 cm Sheldon Kuns Other [employer] Other 12-02-2021 14:30-0400 Body mass index (BMI) [Ratio] 20.67 kg/m2 Sheldon Kuns Other [employer] Other 12-02-2021 14:30-0400 Body weight 51.26 kg Sheldon Kuns Other [employer] Other 12-02-2021 14:30-0400 Diastolic blood pressure 80 mm[Hg] Sheldon Kuns Other [employer] Other 12-02-2021 14:30-0400 Respiratory rate 18 /min Sheldon Kuns Other [employer] Other 12-02-2021 14:30-0400 SaO2% (BldA) [Mass fraction] 95 % Sheldon Kuns Other [employer] Other 12-02-2021 14:30-0400 Systolic blood pressure 152 mm[Hg] Sheldon Kuns Other [employer] Other 11-24-2021 13:30-0400 Body height 157.48 cm Sheldon Kuns Other [employer] Other 11-24-2021 13:30-0400 Body mass index (BMI) [Ratio] 20.67 kg/m2 Sheldon Kuns Other [employer] Other 11-24-2021 13:30-0400 Body weight 51.26 kg Sheldon Kuns Other [employer] Other 11-24-2021 13:30-0400 Diastolic blood pressure 70 mm[Hg] Sheldon Kuns Other [employer] Other 11-24-2021 13:30-0400 Respiratory rate 16 /min Sheldon Kuns Other [employer] Other 11-24-2021 13:30-0400 SaO2% (BldA) [Mass fraction] 93 % Sheldon Kuns Other [employer] Other 11-24-2021 13:30-0400 Systolic blood pressure 134 mm[Hg] Sheldon Kuns Other [employer] Other 06-10-2021 12:30-0400 Body height 157.48 cm Alireza Olvera Other [employer] Other 06-10-2021 12:30-0400 Body mass index (BMI) [Ratio] 20.3 kg/m2 Alireza Olvera Other [employer] Other 06-10-2021 12:30-0400 Body weight 50.35 kg Alireza Wade Other [employer] Other 06-10-2021 12:30-0400 Diastolic blood pressure 78 mm[Hg] Alireza Olvera Other [employer] Other 06-10-2021 12:30-0400 Respiratory rate 18 /min Alireza Olvera Other [employer] Other 06-10-2021 12:30-0400 SaO2% (BldA) [Mass fraction] 97 % Alireza Olvera Other [employer] Other 06-10-2021 12:30-0400 Systolic blood pressure 128 mm[Hg] Alireza Wade Other [employer] Other Encounters Encounter Date Encounter Type Care Provider Facility Start: 03-20-2025 End: 03-20-2025 ambulatory [facility] Start: 03-17-2025 End: 03-17-2025 ambulatory Sheldon Xie DO Work Phone: [facility] Work Phone: Start: 03-17-2025 End: 03-17-2025 Sheldon Xie DO -[facility] Work Phone: Start: 02-27-2025 Iam Moscoso [facility] Work Phone: Start: 02-27-2025 End: 02-27-2025 ambulatory [facility] Start: 02-13-2025 Sheldon Xie DO -[facility] Work Phone: Start: 02-12-2025 End: 02-12-2025 Sheldon Xie DO -[facility] Work Phone: Start: 02-06-2025 [facility] Start: 01-31-2025 Caleb Thomson MD -[facility] Work Phone: Start: 01-30-2025 Caleb Thomson MD -[facility] Work Phone: Start: 01-29-2025 Ranjit Peralta MD -[facility] Work Phone: Start: 01-28-2025 Ranjit Peralta MD -[facility] Work Phone: Start: 01-27-2025 Ranjit Peralta MD -[facility] Work Phone: Start: 01-26-2025 Ranjit Peralta MD -[facility] Work Phone: Start: 01-25-2025 Ranjit Peralta MD -[facility] Work Phone: Start: 01-24-2025 Ranjit Peralta MD -[facility] Work Phone: Start: 01-23-2025 Ranjit Peralta MD -[facility] Work Phone: Start: 01-22-2025 Sheldon Xie DO -[facility] Work Phone: Start: 01-01-2025 End: 01-01-2025 Patient encounter procedure [facility] Comment on above: 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) Start: 01-01-2025 End: 01-01-2025 ambulatory TAMMY MELGAR Not Available Start: 12-24-2024 End: 12-24-2024 ambulatory Sheldonnicola Xie DO Work Phone: [facility] Work Phone: Start: 12-24-2024 End: 12-24-2024 Patient encounter procedure Sheldon Xie DO Work Phone: [facility] Work Phone: Start: 12-24-2024 End: 12-24-2024 Sheldon Xie DO -[facility] Work Phone: Start: 12-04-2024 End: 12-04-2024 Patient encounter procedure [facility] Comment on above: 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) Start: 12-04-2024 End: 12-04-2024 ambulatory TAMMY MELGAR Not Available Start: 11-14-2024 End: 11-14-2024 Patient encounter procedure Sheldon Xie DO Work Phone: [facility] [place] Work Phone: Start: 11-14-2024 End: 11-14-2024 ambulatory Sheldon Xie DO Work Phone: [facility] Work Phone: Start: 11-13-2024 End: 11-13-2024 ambulatory TAMMY MELGAR Not Available Start: 09-20-2024 End: 09-20-2024 Bamboo flowsheet Tammy Jagdish Melgar AUD Work Phone: [facility] Start: 09-20-2024 End: 09-20-2024 Bamboo flowsheet Tammy Melgar AUD Work Phone: [facility] Start: 09-20-2024 End: 09-20-2024 Telephone encounter Tammy Melgar AUD Work Phone: [facility] Start: 09-20-2024 End: 09-20-2024 Patient encounter procedure Tammy Melgar AUD Work Phone: [facility] Comment on above: 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) Start: 09-20-2024 End: 09-20-2024 ambulatory TAMMY MELGAR Not Available Start: 09-19-2024 End: 09-19-2024 ambulatory [facility] Work Phone: Start: 09-19-2024 End: 09-19-2024 Patient encounter procedure [facility] [place] Work Phone: Start: 07-09-2024 End: 07-09-2024 ambulatory Sheldon Kuns DO Work Phone: [facility] Work Phone: Start: 07-09-2024 End: 07-09-2024 Patient encounter procedure Sheldon Kuns DO Work Phone: [facility] Work Phone: Start: 07-08-2024 Non-patient / Non-visit Sheldon Kuns DO Work Phone: [facility] Work Phone: Start: 06-18-2024 End: 06-18-2024 Patient encounter procedure DO Sheldon Kuns Work Phone: [facility] Start: 06-18-2024 End: 06-18-2024 ambulatory DO Sheldon Kuns Work Phone: [facility] Work Phone: Start: 06-18-2024 End: 06-18-2024 ambulatory DO Sheldon Kuns Work Phone: [facility] Work Phone: Start: 06-18-2024 End: 06-18-2024 Patient encounter procedure DO Sheldon Kuns Work Phone: [facility] [place] Work Phone: Start: 06-06-2024 End: 06-06-2024 ambulatory DO Sheldon Kuns Work Phone: [facility] Work Phone: Start: 06-06-2024 End: 06-06-2024 Patient encounter procedure DO Sheldon Kuns Work Phone: [facility] Work Phone: Start: 05-16-2024 End: 05-16-2024 Patient encounter procedure DO Sheldon Kuns Work Phone: [facility] Start: 05-16-2024 End: 05-16-2024 ambulatory DO Sheldon Kuns Work Phone: [facility] Work Phone: Start: 05-16-2024 End: 05-16-2024 ambulatory DO Sheldon Kuns Work Phone: [facility] Work Phone: Start: 05-16-2024 End: 05-16-2024 Patient encounter procedure DO Sheldon Kuns Work Phone: [facility] [place] Work Phone: Start: 05-15-2024 End: 05-15-2024 Patient encounter procedure DO Sheldon Kuns Work Phone: [facility] [place] Work Phone: Start: 05-15-2024 End: 05-15-2024 ambulatory DO Sheldon Kuns Work Phone: [facility] Work Phone: Start: 03-19-2024 End: 03-19-2024 ambulatory DO Sheldon Kuns Work Phone: [facility] Work Phone: Start: 03-19-2024 End: 03-19-2024 Patient encounter procedure DO Sheldon Kuns Work Phone: [facility] [place] Work Phone: Start: 03-04-2024 End: 03-04-2024 ambulatory DO Sheldon Kuns Work Phone: [facility] Work Phone: Start: 03-04-2024 End: 03-04-2024 Discharged Recurring DO Sheldon Kuns Work Phone: [facility] [place] Work Phone: Start: 02-09-2024 End: 02-09-2024 Office outpatient visit 25 minutes Ronnie Amin MD Work Phone: [facility] Comment on above: Benign essential hyp ertension (Primary Dx); Paroxysmal supraventricular tachycardia (CMS-HCC); Mixed hyperlipidemia; Former cigarette smoker Start: 02-09-2024 End: 02-09-2024 ambulatory [facility] Start: 01-29-2024 End: 01-29-2024 ambulatory DO Sheldon Kuns Work Phone: [facility] Work Phone: Start: 01-29-2024 End: 01-29-2024 Patient encounter procedure DO Sheldon Kuns Work Phone: [facility] [place] Work Phone: Start: 01-25-2024 Registered Recurring DO Sheldon Kuns Work Phone: [facility] [place] Work Phone: Start: 01-09-2024 End: 01-09-2024 Patient encounter procedure DO Sheldon Kuns Work Phone: [facility] Pulmonary Disease Work Phone: Start: 12-20-2023 Non-patient / Non-visit DO Mandy tt Kuns Work Phone[facility] Work Phone: Start: 12-14-2023 End: 12-14-2023 ambulatory DO Sheldon Kuns Work Phone: [facility] [facility] Work Phone: Start: 12-14-2023 End: 12-14-2023 Patient encounter procedure DO Sheldon Kuns Work Phone: [facility] Family Medicine [place] Work Phone: Start: 12-06-2023 Non-patient / Non-visit DO Mandy tt Kuns Work Phone: [facility] Pulmonary Disease Work Phone: Start: 12-05-2023 End: 12-05-2023 Patient encounter procedure DO Sheldon Kuns Work Phone: [facility]-Sleep Lab Work Phone: Start: 12-05-2023 End: 12-05-2023 ambulatory DO Sheldon Kuns Work Phone: [facility] Work Phone: Start: 11-20-2023 End: 11-20-2023 Patient encounter procedure DO Sheldon Kuns Work Phone: [facility]-X-Ray [facility] Start: 11-20-2023 End: 11-20-2023 ambulatory DO Sheldon Kuns Work Phone: [facility] Work Phone: Start: 11-16-2023 End: 11-16-2023 ambulatory DO Sheldon Kuns Work Phone: [facility] Work Phone: Start: 11-16-2023 End: 11-16-2023 Patient encounter procedure DO Sheldon Kuns Work Phone: [facility] Work Phone: Start: 11-15-2023 End: 11-15-2023 ambulatory DO Sheldon Kuns Work Phone: [facility] Work Phone: Start: 11-15-2023 End: 11-15-2023 Patient encounter procedure DO Sheldon Kuns Work Phone: [facility] Family [facility] [place] Work Phone: Start: 11-06-2023 Non-patient / Non-visit DO Mandy tt Kuns Work Phone: [facility] Work Phone: Start: 10-17-2023 End: 10-17-2023 ambulatory DO Sheldon Kuns Work Phone: [facility] Work Phone: Start: 10-17-2023 End: 10-17-2023 Patient encounter procedure DO Sheldon Kuns Work Phone: [facility] Pulmonary Disease Work Phone: Start: 10-10-2023 End: 10-10-2023 ambulatory DO Sheldon Kuns Work Phone: [facility] Work Phone: Start: 10-10-2023 End: 10-10-2023 Patient encounter procedure DO Sheldon Kuns Work Phone: [facility]-X-Ray [facility] Start: 10-05-2023 Non-patient / Non-visit DO Mandy tt Kuns Work Phone: [facility] Work Phone: Start: 09-26-2023 End: 09-26-2023 ambulatory DO Sheldon Kuns Work Phone: [facility] Work Phone: Start: 09-26-2023 End: 09-26-2023 Patient encounter procedure DO Sheldon Kuns Work Phone: [facility]-Lab [place] Work Phone: Start: 09-13-2023 End: 09-13-2023 ambulatory Sheldonnicola Xie Other [employer] Other Start: 09-13-2023 Telephone encounter Sheldon Xie [employer] Start: 09-01-2023 End: 09-01-2023 Patient encounter procedure DO Sheldonnicola Xie Work Phone: [facility]-Electrodiagnostic s Work Phone: Start: 08-30-2023 End: 09-28-2023 ambulatory SHELDON XIE [facility] Start: 08-09-2023 End: 08-09-2023 ambulatory Dre Looney Other [employer] Other Start: 08-09-2023 Office outpatient ne w 45 minutes Dre Dickersonno [facility] Start: 08-09-2023 End: 08-09-2023 Patient encounter procedure DO Sheldon Xie Work Phone: [facility] Pulmonary Disease Work Phone: Start: 08-07-2023 End: 08-07-2023 Patient encounter procedure DO Sheldon Xie Work Phone: [facility]-Respiratory Therapy Work Phone: Start: 07-04-2023 End: 07-04-2023 ambulatory Sheldonnicola Xie Other [employer] Other Start: 07-04-2023 Office outpatient vi sit 25 minutes Sheldon Xie [facility] [place] Start: 07-04-2023 End: 07-04-2023 Patient encounter procedure DO Sheldon Longs Work Phone: [facility] [place] Work Phone: Start: 05-30-2023 End: 05-30-2023 ambulatory Sheldon Kuns Other [employer] Other Start: 05-30-2023 Office outpatient vi sit 25 minutes Sheldon Kuns [facility] Start: 05-30-2023 Telephone encounter Sheldon Kuns [facility] Start: 05-24-2023 End: 05-24-2023 ambulatory DO Sheldon Kuns Work Phone: [facility] Work Phone: Start: 05-24-2023 End: 05-24-2023 Patient encounter procedure DO Sheldon Kuns Work Phone: [facility] [place] Work Phone: Start: 05-02-2023 End: 05-02-2023 ambulatory Sheldon Kuns Other [employer] Other Start: 05-02-2023 Telephone encounter Sheldon Kuns [facility] Start: 02-20-2023 End: 02-20-2023 ambulatory Sheldon Kuns Other [employer] Other Start: 02-20-2023 Telephone encounter Sheldon Kuns [facility] Start: 01-10-2023 End: 01-11-2023 ambulatory SAMMIE DURAN Facility:H1 Start: 12-26-2022 ambulatory SAMMIE DURAN Facili ty:H1 Start: 12-20-2022 Office outpatient vi sit 15 minutes Sammie Duran [facility] Start: 12-20-2022 End: 12-20-2022 ambulatory DO Sheldon Kuns Work Phone: [facility] Work Phone: Start: 12-20-2022 End: 12-20-2022 Patient encounter procedure DO Sheldon Kuns Work Phone: [facility]-XRay [facility] Start: 12-14-2022 End: 12-14-2022 ambulatory Sheldon Kuns Other [facility] [employer] Other Start: 12-14-2022 Telephone encounter Sheldon Longs [facility] Start: 12-12-2022 End: 12-15-2022 ambulatory SAMMIE DURAN Facility:H1 Start: 12-05-2022 Rx Renewal Sheldon R Kuns Work Phone: [facility] 250 DO Work Phone: Start: 11-29-2022 End: 11-29-2022 ambulatory Sheldon Kuns Other [facility] [employer] Other Start: 11-29-2022 Office outpatient vi sit 25 minutes Sheldon Xie [facility] Start: 11-22-2022 Rx Renewal Sheldon R Kuns Work Phone: [facility] 250 DO Work Phone: Start: 11-21-2022 End: 11-21-2022 ambulatory Sammie Duran Other [facility] [employer] Other Start: 11-21-2022 Telephone encounter Sammie Duran [facility] Start: 11-14-2022 End: 11-14-2022 ambulatory SAMMIE DURAN Facility:H1 Start: 11-11-2022 Rx Renewal Sheldon R Kuns Work Phone: [facility] 250 DO Work Phone: Start: 11-08-2022 End: 11-08-2022 ambulatory DO Sheldon Kuns Work Phone: [facility] Work Phone: Start: 11-08-2022 End: 11-08-2022 Patient encounter procedure DO Sheldon Kuns Work Phone: [facility]-XRay [facility] Start: 10-17-2022 End: 10-17-[address] SHELDON XIE Facility: Start: 10-12-2022 End: 10-12-2022 ambulatory Sheldon Xie Other [employer] Other Start: 10-12-2022 Telephone encounter Sheldon Xie [facility] Start: 10-04-2022 End: 10-04-2022 ambulatory DO Sheldon Kuns Work Phone: [facility] Work Phone: Start: 10-04-2022 End: 10-04-2022 Patient encounter procedure DO Sheldon Kuns Work Phone: [facility]-XRay [facility] Start: 09-29-2022 Office outpatient vi sit 25 minutes Sheldon Xie [facility] Start: 09-29-2022 Telephone encounter Sammie Duran [facility] Start: 09-29-2022 End: 09-29-2022 ambulatory DO Sheldon Kuns Work Phone: [facility] Work Phone: Start: 09-29-2022 End: 09-29-2022 Patient encounter procedure DO Sheldon Kuns Work Phone: [facility]-Lab [place] Work Phone: Start: 09-27-2022 End: 09-27-2022 ambulatory Sammie Duran Other [employer] Other Start: 09-27-2022 Office outpatient vi sit 25 minutes Sammie Duran [facility] Start: 09-15-2022 Postop follow up vis it related to original px Sammie Duran [facility] Start: 09-15-2022 Telephone encounter Sheldon Xie [facility] Start: 09-15-2022 End: 09-15-2022 ambulatory DO Sheldon Kuns Work Phone: [facility] Work Phone: Start: 09-15-2022 End: 09-15-2022 Patient encounter procedure DO Sheldon Kuns Work Phone: [facility]-XRay [facility] Start: 09-02-2022 End: 09-02-2022 ambulatory Sheldon Kuns Other [employer] Other Start: 09-02-2022 FQHC visit new patient Sammie Lawson ayana [facility] Start: 09-02-2022 Telephone encounter Sheldon Kuns [facility] Start: 09-01-2022 Office outpatient vi sit 25 minutes Sheldon Kuns [facility] Start: 09-01-2022 End: 09-01-2022 ambulatory DO Sheldon Kuns Work Phone: [facility] Work Phone: Start: 09-01-2022 End: 09-01-2022 Patient encounter procedure DO Sheldon Kuns Work Phone: [facility]-X-Ray [facility] Start: 08-08-2022 End: 08-08-2022 ambulatory Sheldon Kuns Other [employer] Other Start: 08-08-2022 Telephone encounter Sheldon Kuns [facility] Start: 08-04-2022 End: 08-04-2022 ambulatory Sheldon Kuns Other [employer] Other Start: 08-04-2022 Telephone encounter Sheldon Kuns [facility] Start: 07-29-2022 End: 07-29-2022 ambulatory Sheldon Kuns Other [employer] Other Start: 07-29-2022 Nursing evaluation o f patient and report Sheldon Kuns [facility] Start: 07-29-2022 Telephone encounter Sheldon Kuns [facility] Start: 06-23-2022 End: 06-23-2022 ambulatory Sheldon Kuns Other [employer] Other Start: 06-23-2022 Office outpatient vi sit 25 minutes Sheldon Kuns [facility] Start: 06-16-2022 End: 06-16-2022 ambulatory DO Sheldon Kuns Work Phone: [facility] Work Phone: Start: 06-16-2022 End: 06-16-2022 Patient encounter procedure DO Sheldon Kuns Work Phone: [facility]-Lab [place] Start: 06-03-2022 End: 06-03-2022 ambulatory DO Sheldon Kuns Work Phone: [facility] Work Phone: Start: 06-03-2022 End: 06-03-2022 Patient encounter procedure DO Sheldon Kuns Work Phone: [facility]-CT Scan [place] Start: 06-02-2022 End: 06-02-2022 ambulatory Sheldon Kuns Other [employer] Other Start: 06-02-2022 Telephone encounter Sheldon Kuns [facility] Start: 05-24-2022 End: 05-24-2022 ambulatory Sheldon Kuns Other [employer] Other Start: 05-24-2022 Office outpatient vi sit 25 minutes Sheldon Kuns [facility] Start: 05-16-2022 End: 05-16-2022 ambulatory Sheldon Kuns Other [employer] Other Start: 05-16-2022 Telephone encounter Sheldon Kuns [facility] Start: 04-18-2022 Registered Recurring DO Sheldonnicola Xie Work Phone: [facility]-Infusion Therapy - O/P Start: 04-13-2022 End: 04-14-2022 ambulatory ELMAJACOB CHRISTINA . Facility:H1 Start: 04-05-2022 End: 04-06-[address] SHELDON XIE Facility:H1 Start: 04-01-2022 End: 04-01-2022 Patient encounter procedure DO Sheldon Longjagdish Work Phone: [facility] [place] Start: 03-22-2022 End: 03-22-2022 ambulatory Sheldon Xie Other [employer] Other Start: 03-22-2022 Office outpatient vi sit 25 minutes Sheldon Xie [facility] Start: 02-09-2022 End: 02-09-2022 ambulatory Sheldon Xie Other [employer] Other Start: 02-09-2022 Telephone encounter Sheldon Xie [facility] Start: 02-09-2022 End: 02-09-2022 Patient encounter procedure DO Sheldon Anne-Marie Work Phone: [facility]-Lab [place] Start: 02-08-2022 Office outpatient vi sit 25 minutes Sheldon Xie Work Phone: [facility] [facility] DO Work Phone: Start: 01-19-2022 End: 01-19-2022 ambulatory Sheldon Xie Other [employer] Other Start: 01-19-2022 Telephone encounter Sheldonnicola Xie [facility] Start: 01-05-2022 Rx Renewal Ronnie mckee MD Work Phone: [facility] [facility] DO Work Phone: Start: 12-21-2021 End: 12-21-2021 ambulatory Sheldon Kuns Other [employer] Other Start: 12-21-2021 Office outpatient vi sit 25 minutes Sheldon Kuns [facility] Start: 12-02-2021 End: 12-02-2021 ambulatory Sheldon Kuns Other [employer] Other Start: 12-02-2021 Office outpatient vi sit 25 minutes Sheldon Kuns [facility] Start: 11-29-2021 Rx Renewal Ronnie mckee MD Work Phone: [facility] 250 DO Work Phone: Start: 11-24-2021 End: 11-24-2021 ambulatory Sheldon Kuns Other [employer] Other Start: 11-24-2021 Office outpatient vi sit 25 minutes Sheldon Kuns [facility] Start: 10-20-2021 End: 10-20-2021 ambulatory Sheldon Kuns Other [employer] Other Start: 10-20-2021 Telephone encounter Sheldon Kuns [facility] Start: 10-19-2021 End: 10-19-2021 ambulatory Sheldon Kuns Other [employer] Other Start: 10-19-2021 Telephone encounter Sheldon Kuns [facility] Start: 10-12-2021 Rx Renewal Ronnie mckee MD Work Phone: [facility] 600 DO Work Phone: Start: 10-07-2021 End: 10-07-2021 ambulatory Sheldon Kuns Other [employer] Other Start: 10-07-2021 Telephone encounter Sheldon Kuns [facility] Start: 09-07-2021 End: 09-07-2021 ambulatory Sheldon Kuns Other [employer] Other Start: 09-07-2021 Telephone encounter Sheldon Kuns [facility] Start: 07-06-2021 End: 07-06-2021 ambulatory Sheldon Kuns Other [employer] Other Start: 07-06-2021 Telephone encounter Sheldonnicola Alvess [facility] Start: 06-15-2021 Telephone encounter Alireza Ivy [facility] Entry Manager Start: 06-10-2021 Office outpatient vi sit 25 minutes Alireza Olvera [facility] Vascular Surgery Procedures Date Procedure Procedure Detail Performing Clinician Start: 09-20-2024 AUDITORY FUNCTION TESTS Tammy S Melgar AUD Work Phone: Start: 06-18-2024 Plain X-ray of [...] Phone: Operation on the ear Sheldon R Kuns Work Phone: Total colonoscopy Sheldon R Ku ns Work Phone: Comment on above: [id number]; Plan of Treatment Date Care Activity Detail Author Start: 02-11-2025 End: 02-11-2025 Patient encounter procedure 02/11/2025 1:00 PM EDT Office Visit [facility] [address] [facility] [address] [place] [address] Celestina Khalil MD [address] [facility] [place], [place] [id number] [facility] Start: 01-01-2025 End: 01-01-2025 Patient encounter procedure 01/01/2025 3:00 PM EDT Office Visit [facility] [address] [place] [id number] [facility] Start: 09-20-2024 End: 09-20-2024 Patient encounter procedure 09/20/2024 1:00 PM EST Office Visit [facility] [address] [facility] [place] [id number] Tammy Melgar, AUD [address] [facility] [place] [address] Arrived [facility] Comment on above: Arrived Start: 04-28-2023 COVID-19 Vaccine ( season) COVID-19 Vaccine ( season) [facility] Start: 02-07-2023 FUV, Provider: Ronnie Amin, Status: Pen, Time: 11:10 AM FUV, Provider: Ronnie Amin, Status: Pen, Time: 11:10 AM [facility] 250 DO Work Phone: Start: 10-04-2022 Dual energy X-ray absorptiometry XR dexa axial skeleton [facility] Start: 04-18-2022 Registered Recurring Registered Recu rring [facility]-Infusion Therapy - O/P Start: 02-08-2022 FUV, Provider: Ronnie Amin, Status: Pen, Time: 10:30 AM FUV, Provider: Ronnie Amin, Status: Pen, Time: 10:30 [facility] Work Phone: Start: 12-11-2019 Pneumococcal Vaccine : 65+ Years (2 of 2 - PPSV23 or PCV20) Pneumococcal Vaccine: 65+ Years (2 of 2 - PPSV23 or PCV20) [facility] Start: 12-11-2019 Pneumococcal Vaccine : 65+ Years (2 of 2 - PPSV23) Pneumococcal Vaccine: 65+ Years (2 of 2 - PPSV23) [facility] Start: 2001 RSV patient s and/or patients aged 60+ years (1 - 1-dose 60+ series) RSV patients and/or patients aged 60+ years (1 - 1-dose 60+ series) [facility] Start: 1963 DTaP/Tdap/Td Vaccine s (1 - Tdap) DTaP/Tdap/Td Vaccines (1 - Tdap) [facility] Start: 1959 Diabetes mellitus screening Diabetes Screening [facility] Start: 1941 Lipid panel Lipid Panel [facility] Start: 1941 Medicare Annual Well ness Visit Medicare Annual Wellness Visit (AWV) [facility] Start: 1941 Screening for osteoporosis Bone Density Scan [facility] Comprehensive metabo lic 1999 panel - Serum or Plasma [facility] Comprehensive metabo lic 1999 panel - Serum or Plasma [facility] Comprehensive metabo lic 1999 panel - Serum or Plasma [facility] Patient Education Low back pain in adults [facility] Work Phone: XR Cervical spine 5 Views [facility] XR Chest 2 Views [facility] XR Chest 2 Views [facility] XR Hip - left Single view [facility] XR Lumbar spine Views [facility] XR Ribs - right 2 Views [facility] XR Sacrum and Coccyx GE 2 Views [facility] Immunizations Immunization Date Immunization Notes Care Provider Fa tony 06-18-2024 influenza, high dose seasonal, preservative-free DO Sheldon Xie Work Phone: [facility] 05-30-2023 influenza, high dose seasonal, preservative-free Sheldon Kuns Other [facility] 05-30-2023 influenza virus vaccine, unspecified formulation DO Sheldonnicola Alvess Work Phone: [facility] 05-24-2022 influenza, high dose seasonal, preservative-free Sheldon Longs Other [facility] 05-24-2022 influenza virus vaccine, unspecified formulation DO Sheldon Xie Work Phone: [facility] 06-01-2021 Pfizer-BioNTTailster COVID-19 Vacc 30 MCG/0.3ML Intramuscular Suspension Sheldon R Anne-Marie Work Phone: [facility] 05-02-2021 influenza, high dose seasonal, preservative-free Alireza Olvera Other [facility] [employer] Other 05-02-2021 Fluzone High-Dose Quadrivalent 0.7 ML Intramuscular Suspension Prefilled Syringe Sheldon Xie Work Phone: [facility] 05-02-2021 influenza virus vaccine, unspecified formulation DO Sheldon Xie Work Phone: [facility] 10-17-2020 COVID-19 Vaccine Pfi zer - Documentation Purposes Only Alireza Olvera Other [facility] 09-26-2020 COVID-19 Vaccine Pfi zer - Documentation Purposes Only Alireza Olvera Other [facility] 05-08-2020 influenza, seasonal, injectable Alireza Wade Other [facility] 04-28-2020 influenza virus vaccine, unspecified formulation Sheldon R Anne-Marie Work Phone: [place] [address] DO Work Phone: 08-16-2019 zoster vaccine recombinant Alireza Wade Other [facility] 06-03-2019 zoster vaccine recombinant Alireza Wade Other [facility] 06-03-2019 influenza, seasonal, injectable Alireza Wade Other [facility] 05-28-2019 influenza virus vaccine, unspecified formulation Sheldon R Kuns Work Phone: [facility] 250 DO Work Phone: 12-10-2018 pneumococcal conjuga te vaccine, 13 valent Alireza Wade Other [facility] 08-28-2018 pneumococcal polysaccharide vaccine, 23 valent Sheldon R Kuns Work Phone: [facility] 250 DO Work Phone: 05-28-2018 influenza virus vaccine, unspecified formulation Sheldon R Kuns Work Phone: [facility] 250 DO Work Phone: 05-16-2018 influenza virus vaccine, unspecified formulation DO Sheldon Kuns Work Phone: [facility] 05-16-2018 influenza, high dose seasonal, preservative-free Alireza Wade Other [facility] 08-28-2017 pneumococcal conjuga te vaccine, 13 valent Sheldon R Kuns Work Phone: [facility] 250 DO Work Phone: 05-30-2017 influenza virus vaccine, unspecified formulation DO Sheldon Kuns Work Phone: [facility] 05-30-2017 influenza, high dose seasonal, preservative-free Alireza Wade Other [facility] 05-28-2017 influenza virus vaccine, unspecified formulation Sheldon R Kuns Work Phone: [facility] 250 DO Work Phone: 09-06-2016 Toradol per 15 mg Alireza Benson Other [facility] [employer] Other 09-01-2016 Toradol per 15 mg Alireza Sonja allen Other [facility] [employer] Other 06-14-2016 influenza virus vaccine, unspecified formulation DO Sheldon Kuns Work Phone: [facility] 06-14-2016 influenza, high dose seasonal, preservative-free Alireza Aparicioenberg Other [facility] 05-28-2016 influenza virus vaccine, unspecified formulation Sheldon R Kuns Work Phone: [employer] [employer] DO Work Phone: 06-05-2015 influenza virus vaccine, unspecified formulation DO Sheldon Kuns Work Phone: [facility] 06-05-2015 influenza, high dose seasonal, preservative-free Alireza Wade Other [facility] 05-28-2015 influenza virus vaccine, unspecified formulation Sheldon R Kuns Work Phone: [facility] [employer] DO Work Phone: 05-14-2014 influenza, high dose seasonal, preservative-free Alireza Olvera Other [facility] [employer] Other 05-14-2014 influenza virus vaccine, unspecified formulation DO Sheldon Kuns Work Phone: [facility] 06-06-2013 zoster vaccine, live Sheldon R Kuns Work Phone: [facility] 08-28-2010 pneumococcal polysaccharide vaccine, 23 valent Sheldon R Kuns Work Phone: [facility] [employer] 250 DO Work Phone: influenza virus vaccine, unspecified formulation Sheldon R Kuns Work Phone: [facility] [facility] DO Work Phone: Comment on above: May [id number] Payers Date Payer Category Payer Medicare (Managed Care) [facility] [id number] 2023 Self-pay [id number] 2023 Medicare [employer] MEDICARE [id number] 2023-Present [address] [place] [address] [id number] 2023 Private Health Insurance [id number] 1959 Medicare [id number] 1959 Medicare [id number] 1959 Self-pay [id number] 1941 Unknown [id number] [id number]. 593 1941 Unknown [id number] [id number]. 593 1941 Unknown [id number] 2.16.840.1.851535.3.579.2. 593 1941 Unknown [id number] 2.16.840.1.046202.3.579.2. 593 1941 Unknown [id number] 2.16.840.1.478711.3.579.2. 593 1941 Unknown [id number] 2.16.840.1.610394.3.579.2. 593 1941 Unknown [id number] 2.16.840.1.896187.3.579.2. 593 1941 Unknown [id number] 2.16.840.1.753764.3.579.2. 593 1941 Unknown [id number] 2.16.840.1.047411.3.579.2. 1286 1941 Unknown [id number] 2.16.840.1.733506.3.579.2. 1259 1941 Unknown [id number] 2.16.840.1.361775.3.579.2. 1259 1941 Unknown [id number] 1259 1940 Unknown [id number]. 1259 1940 Unknown [id number] [id number]. 1244 Medicare [id number] Medicare [id number] Unknown AET[employer] Unknown [id number] [id number]. 531 Unknown [id number] [id number]. 531 Unknown [id number] [id number]. 531 Unknown [id number] [id number]. 531 Unknown [id number] 2.16.840.1.168569.3.579.2. 531 Unknown [id number] [id number]. 531 Unknown [id number]. 531 Social History Date Type Detail Facility Start: 02-09-2024 Social alcohol use Social alcohol us e [facility] [employer] Other Comment on above: Quit Smoking 1999 - smoked 1 PPD; Start: 02-09-2024 Sex Assigned At N [facility] [employer] Other Start: 03-07-2019 End: 12-14-2023 Tobacco smoking status NHIS Ex-smoker (finding) [facility] Start: 1940 Sex Assigned At Female [facility] History of tobacco use Current smoker [facility] Work Phone: History of tobacco use Cigarette Smoker [facility] Work Phone: Start: 02-09-2024 Tobacco use and exposure Smokeless tobacco non-user [facility] Work Phone: Start: 02-09-2024 Alcoholic beverage intake Current drinker of alcohol (finding) [facility] Work Phone: Start: 02-09-2024 Alcohol Comment couple times a year [facility] Work Phone: Start: 1940 [facility] Start: 01-30-2024 End: 02-09-2024 Exposure to SARS-CoV-2 (event) Not sure [facility] Start: 07-09-2024 End: 12-24-2024 Sex Female (finding) [facility] Tobacco smoking status CAIS Tobacco smoking consumption unknown [facility] Start: 09-17-2024 Gender identity Identifies as female gender (finding) [facility] Clinical Notes 03-20-2012 to 03-20-2025 Nan Anna MA - 01/01/2025 3:00 PM EDT Note Date & Type Note Facility 03-20-2025 Note Cardiovascular Medic [facility] SUBJECTIVE Chief Complaint Patient presents with Congestive Heart Failure Pulmonary Hypertension Aleksandr Sanchez is a 84 y.o. female here for follow-up after her recent admission to [facility]. PMHx: SVT, COPD, HFpEF, pulmonary HTN, [...] edema, dizziness/LH, palpitations *She previous saw a teletype installer at [facility]. She would like to transfer her care to [place] [facility]. Discharge summary: Hospital Course: Patient admitted [...] is able to get out and do more. She remains on supplemental O2. Denies c/o CP, orthopnea, PND, LE edema, dizziness/LH, palpitations, syncope. Problem List[1] Medical History[2] Family History[3] Social History[4] Allergies[5] OBJECTIVE Visit Vitals BP 147/80 (BP Location: Right arm, Patient Position: Sitting) Pulse 77 Ht 1.524 m (5') SpO2 97% Comment: 1lpm of o2 via n/c BMI 18.94 kg/m??? Smoking Status Former BSA 1.36 m??? Medications: Current Outpatient Medications: albuterol 2.5 mg [...] 2 sprays into each nostril two times daily., Disp: , Rfl: lisinopril 2.5 mg tablet, [...] Bowel sounds are normal. Palpations: Abdomen is (more content not included)... [facility] 03-20-2025 Note Patient is here toda y for results of holter monitor and ECHO. Patient states she feels pretty good. Patient states she is able to out and [...] exertion. Respiratory: Positive for shortness of breath. [facility] 02-27-2025 Note Cardiovascular Medic [facility] SUBJECTIVE Aleksandr Sanchez is a 84 y.o. [...] edema, dizziness/LH, palpitations *She previous saw a teletype installer at [facility]. She would like to transfer her care to [facility]. Discharge summary: Hospital Course: Patient admitted [...] encounter. #Chronic diastol (more content not included)... [facility] 02-06-2025 Note Cardiovascular Medic ine [facility] SUBJECTIVE Chief Complaint Patient presents with Hospital Follow-up Aleksandr Sanchez is a 84 y.o. female here for follow-up after her recent admission to [facility]. PMHx: SVT, COPD, HFpEF, pulmonary HTN, [...] edema, dizziness/LH, palpitations *She previous saw a teletype installer at [facility]. She would like to transfer her care to [facility]. Discharge summary: Hospital Course: Patient admitted [...] daily. -Discussed im (more content not included)... [facility] 02-06-2025 Note Patient is a new pat ient here to establish care and to be seen from a [facility] admission. Patient states she is feeling better. Patient was discharge home on 1lpm of o2 via n/c, o2 use is 24/7. Patient has CARUSO. Review of Systems Cardiovascular: Positive for dyspnea on exertion. Respiratory: Positive for shortness of breath. [facility] 01-01-2025 History of Present illness Narrative Patient was in today with [...] 3:43 PM EDT documented in this encounter [facility] 12-24-2024 Evaluation note Diagnosis Onset Date Resolution Hyperlipidemia acute November 1:46pm Hypertension acute December 24, 2024 1:46pm Osteoporosis acute December 24, 2024 1:46pm Weight loss acute December 24, 025 1:46pm CHF (congestive heart failure) acute February 12, 2025 1:06pm COPD (chronic obstructive pulmonary disease) acute February 12, 2025 1:06pm Osteoporosis acute February 12 025 1:06pm Oxygen dependent acute January 1:06pm Pneumonia acute February 12 1:06pm Type 2 myocardial infarction acute February 12, 2025 1:06pm CHF (congestive heart failure) acute March 17, 2025 9:08am Hypernatremia acute March 17, 2025 9:08am Pneumonia acute March 17 9:08am [facility] Work Phone: 1(795) 626-541504-09-2025 History of Present illness Narrative* Nan Anna MA - 12/04/2024 11:30 AM EDT Patient was in today for a follow up on new hearing aid/CROS. Patient states she is in general doing ok but might not be hearing as well as she would like. I changed patient's left hearing aid to a small closed dome with retention. I then programmed aids to closed dome. Patient felt the aids seemeda bit better and she was comfortable with this dome. Patient also complained that her right aid retention line was always sticking out. I removed the retention line. Patient was scheduled for a follow up in a month. Cosigned by LORNA Mercado at 12/04/2024 1:00 PM EDT documented in this [facility]01-24-2025 Telephone encounter Note* Telephone Encounter - RAGHAV Ventura - 09/20/2024 4:33 PM EST Blocked time for HAF in [place] at 10:00 am on 11-13-2024 [facility] [id number] Miscellaneous Notes* Telephone Encounter - RAGHAV Ventura - 09/20/2024 4:33 PM EST Blocked time for HAF in [place] at 10:00 am on 11-13-2024 documented in this [facility]01-24-2025 Telephone encounter Note* Telephone Encounter - RAGHAV Ventura - 09/20/2024 4:28 PM EST Called [employer] and we have a 90 day fit period before any issues arise. According to the rep, as long as these aids are dispensed before 12-18-24, all is fine. Pt will call once she returns from [place] and can be fit with the aids when she returns. This will not affect her 60 day trial. [facility] [id number] Miscellaneous Notes* Telephone Encounter - RAGHAV Ventura - 09/20/2024 4:28 PM EST Called [employer] and we have a 90 day fit period before any issues arise. According to the rep, as long as these aids are dispensed before 12-18-24, all is fine. Pt will call once she returns from [place] and can be fit with the aids when she returns. This will not affect her 60 day trial. documented in this encounterSt[facility] [id number] History of Present illness Narrative* RAGHAV Ventura - 09/20/2024 1:00 PM EST History: Patient was referred for an audiological evaluation. She has benefits under her [facility] plan. Patient is currently wearing a [...] the right ear and [place]LLOWAY for the leftear). She is aware of the mixed hearing loss, stating she was treated by Dr. Moreno in the past.Pt paid in full for hearing aid in portal. She mentioned she is traveling for [place] in 2 weeks and will be gone for 1 month. Pt will need to be scheduled for HAF when she returns, [facility]. documented in this [facility]-23-[facility] Evaluation note* Author Selene [facility] Authored September 19, 2024 2 :01pm The above note written by Kaiden WARE acting as human recorder, note dictated by Dr. Sheldon Xie. [facility] Work Phone: 1(871) 148-815309-19-2024 Evaluation note* Author Selene [facility] Authored May 16, 2024 8:36am The above note written by Kaiden WARE acting as human recorder, note dictated by Dr. Sheldon Xie. Author Aleksandr Olivo [facility] Authored June 18, 2024 1 :06pm The above note written by CHAZ Spicer acting as human recorder, note dictated by Dr. Sheldon Xie. [facility] Work Phone: 1(100) 318-401509-19-2024 Evaluation note* Author Selene [facility] Authored May 16, 2024 7:36am The above note written by Kaiden WARE acting as human recorder, note dictated by Dr. Sheldon Xie. Author Aleksandr Olivo [facility] Authored June 18, 2024 1 2:06pm The above note written by CAHZ Spicer acting as human recorder, note dictated by Dr. Sheldon Xie. [facility] Work Phone: 1(703) 193-183207-23-2024 Evaluation note* Author Alba Person [facility] Authored March 19, 2024 2:12 pm Sooner if needed, the ER if concerns,The above note written by Alba Person LPN acting as human recorder, note dictated by Dr. Sheldon Xie [facility] Work Phone: 1(706) 126-804307-23-2024 Evaluation note* Author Alba Person [facility] Authored March 19, 2024 2:12 pm Sooner if needed, the ER if concerns,The above note written by Alba Person LPN acting as human recorder, note dictated by Dr. Sheldon Xie Author [facility] Authored May 16, 2024 8:36am The above note written by Kaiden WARE acting as human recorder, note dictated by Dr. Sheldon Xie. [facility] Work Phone: 1(701) 926-479606-14-2024 History of Present illness Narrative* Ronnie Amin MD - 02/09/2024 1:20 PM EDT Subjective [...] each nostril once daily., Disp: , Rfl: hjrfgxsbdyy-ujznxxazm-vdnkmolx (TRELEGY-ELLIPTA) 100-62.5-25 mcg blister with device, Inhale [...] DAILY, Disp: 90 tablet, Rfl: 3 vit C-M-bfojjt-zinc-lutein (Eye Multivit-Lutein,C-E-Cu-Zn,) 226 mg-90 mg-2 mg- 34.8 [...] direction and in the presence of Alex Amin MD. Provider Attestation - Scribe documentation All medical record entries made by the Scribe were at my direction and personally dictated by me. Ihave reviewed the chart and agree that the record accurately reflects my personal performance of the history, physical exam, discussion and plan. [facility] Work Phone: 1(524) 112-117006-14-2024 Instructions* Patient Instructions* Roxann Zamora CMA - [...] time of your visit. documented [facility] Work Phone: 1(988) 472-653006-03-2024 Evaluation note* Author Selene Storey [facility] Authored January 29, 2024 11:20 am The above note written by Kaiden WARE acting as human recorder, note dictated by Dr. Sheldon Xie. Author Aleksandr Olivo [facility] Authored December 14, 2023 12: 48pm The above note written by CAHZ Spicer acting as human recorder, note dictated by Dr. Sheldon Xie. [facility] Work Phone: 1(696) 543-724906-03-2024 Evaluation note* Author [facility]ene [facility] Authored January 29, 2024 11:20 am The above note written by Kaiden WARE acting as human recorder, note dictated by Dr. Sheldon Xie. Author Alba Person [facility] Authored March 19, 2024 2:12 pm Sooner if needed, the ER if concerns,The above note written by Alba Person LPN acting as human recorder, note dictated by Dr. Sheldon Xie [facility] Work Phone: 1(271) 892-433903-20-2024 Evaluation note* Author Aleksandr Olivo [facility] Authored November 15, 2023 12: 56pm The above note written by CHAZ Spicer acting as human recorder, note dictated by Dr.Brett Xie . [facility] Work Phone: 1(634) 497-906203-20-2024 Evaluation note* Author Aleksandr Olivo [facility] Authored November 15, 2023 12: 56pm The above note written by CHAZ Spicer acting as human recorder, note dictated by Dr.Brett Xie . Author Aleksandr Olivo [facility] Authored December 14, 2023 12: 48pm The above note written by CHAZ Spicer acting as human recorder, note dictated by Dr. Sheldon Xie. [facility] Work Phone: 1([phone]) 280-268603-20-2024 Evaluation note* Author Aleksandr Olivo [facility] Authored November 15, 2023 12: 56pm The above note written by CHAZ Spicer acting as human recorder, note dictated by Dr.Brett Xie . [facility]ored January 29, 2024 11:20 am The above note written by Kaiden WARE acting as human recorder, note dictated by Dr. Sheldon Xie. Author Aleksandr Olivo [facility] Authored December 14, 2023 12: 48pm The above note written by CHAZ Spicer acting as human recorder, note dictated by Dr. Sheldon Xie. [facility] Work Phone: 1([phone]) 297-611412-13-2023 Evaluation note* Encounter Date Diagnosis Assessment Notes Treatment Notes Treatment Clinical Notes Jul, COPD (chronic obstructive pulmonary disease) (ICD-10 - J44.9) Jul, Dyspnea (ICD-10 - R06.00) [facility] [facility] Other 11-07-2023 Evaluation note* Encounter Date Diagnosis [...] ordered to be collected in three months, [facility] Other 10-03-2023 Evaluation note* Encounter Date Diagnosis [...] been under the care of Dr. Christina, Soil Tester, for her COPD but her last visit [...] has been completed and will forward to [facility]. She is considering pulmonary rehab and I [...] dose flu vaccine provided today. VIS provided [facility] Other 09-05-2023 Evaluation note* Encounter Date Diagnosis Assessment Notes Treatment Notes Treatment Clinical Notes Apr, RLS (restless legs syndrome) (ICD-10 - G25.81) [facility] [facility] Other 04-25-2023 Evaluation note* Encounter Date Diagnosis [...] treatment. Patient f/u on a PRN basis. [facility] [facility] Other 04-04-2023 Evaluation note* Encounter Date Diagnosis [...] use. I did recommend she consult an block cutter and discuss her wishes with her family. [facility] [facility] Other 03-27-2023 Evaluation note* Encounter Date Diagnosis Assessment Notes Treatment Notes Treatment Clinical Notes Oct, Osteoporosis (ICD-10 - M81.0) [facility] [facility] Other 02-02-2023 Evaluation note* Encounter Date Diagnosis [...] effects. She is to continue as directed. [facility] [facility] Other 02-02-2023 Evaluation note* Encounter Date Diagnosis Assessment Notes Treatment Notes Treatment Clinical Notes Sep, Osteopenia (ICD-10 - M85.80) [facility] [facility] Other 01-31-2023 Evaluation note* Encounter Date Diagnosis [...] with lab results when they are completed. [facility] [facility] Other 01-19-2023 Evaluation note* Encounter Date Diagnosis [...] will schedule for [facility] [employer] [facility] [employer] Other 01-06-2023 Evaluation note* Encounter Date Diagnosis Assessment Notes Treatment Notes Treatment Clinical Notes Aug, Foot fracture, right (ICD-10 - S92.901A) [facility] Other 01-06-2023 Evaluation note* Encounter Date Diagnosis [...] Continue with Tylenol as needed for pain. [facility] [facility] Other 01-05-2023 Evaluation note* Encounter Date Diagnosis [...] her and more than likely refer to line producer. It appears to have possible fracture. She [...] patient and will review at next visit [facility] Other 12-08-2022 Evaluation note* Encounter Date Diagnosis Assessment Notes Treatment Notes Treatment Clinical Notes Jul, Restless legs syndrome (ICD-10 - G25.81) [facility] [facility] Other 12-02-2022 Evaluation note* Encounter Date Diagnosis Assessment Notes Treatment Notes Treatment Clinical Notes Jul, Acute cough (ICD-10 - R05.1) [facility] [facility] Other 10-27-2022 Evaluation note* Encounter Date Diagnosis [...] started the new inhalers ordered from the car runner, she has noticed worsened vision and she is concerned this may be causing her pressures to be elevated. She is scheduled to see eye doctor next month. Patient encouraged to contact car runner to advise of the visual changes and [...] if needed but she is to call car runner first. Voiced understanding [facility] [facility] Other 10-06-2022 Evaluation note* Encounter Date Diagnosis Assessment Notes Treatment Notes Treatment Clinical Notes May, Weight loss (ICD-10 - R63.4) May, Abdominal pain, unspecified abdominal location (ICD-10 - R10.9) [facility] [facility] Other 09-27-2022 Evaluation note* Encounter Date Diagnosis [...] J44.9) Patient is following with Dr. Christina, Soil Tester, for her COPD. She does have some [...] Apr, Needs flu shot (ICD-10 - Z23) [facility] [facility] Other 09-19-2022 Evaluation note* Encounter Date Diagnosis Assessment Notes Treatment Notes Treatment Clinical Notes Apr, Restless legs syndrome (ICD-10 - G25.81) [facility] [facility] Other 07-26-2022 Evaluation note* Encounter Date Diagnosis [...] started on a diuretic. Patient noted from teletype installer office that her oxygen level did drop significantly during ambulation and it was felt by the teletype installer that perhaps oxygen is needed and a pulmonary consult is warranted. I would like to refer patient to Dr. Christina for consultation. Patient is in agreement. Referral initiated. Feb, Edema, unspecified type (ICD-10 - R60.9) Patient was recently evaluated by Dr. Amin, Credit Administration Manager, for the dyspnea that patient had [...] be continued and follow up with Dr. Amin as sheduled. Feb, Acute right-sided thoracic back [...] - R06.09) Referral initiated to Dr. Christina, Soil Tester [employer] [facility] Other 06-15-2022 Evaluation note* Encounter Date Diagnosis Assessment Notes Treatment Notes Treatment Clinical Notes Jan, Restless legs syndrome (ICD-10 - G25.81) [facility] [facility] Other 05-25-2022 Evaluation note* Encounter Date Diagnosis Assessment Notes Treatment Notes Treatment Clinical Notes December, COPD (chronic obstructive pulmonary disease) (ICD-10 - J44.9) [facility] [facility] Other 04-26-2022 Evaluation note* Encounter Date Diagnosis [...] assistance getting a new machine or refills. [facility] [facility] Other 04-07-2022 Evaluation note* Encounter Date Diagnosis [...] We will continue to monitor. Medication e-scribed. [facility] [facility] Other 03-30-2022 Evaluation note* Encounter Date Diagnosis [...] XR for patient to have done today. [facility] [facility] Other 02-23-2022 Evaluation note* Encounter Date Diagnosis Assessment Notes Treatment Notes Treatment Clinical Notes Sep, Osteoporosis (ICD-10 - M81.0) [facility] [facility] Other 02-22-2022 Evaluation note* Encounter Date Diagnosis Assessment Notes Treatment Notes Treatment Clinical Notes Sep, Restless legs syndrome (ICD-10 - G25.81) [facility] Other 02-10-2022 Evaluation note* Encounter Date Diagnosis Assessment Notes Treatment Notes Treatment Clinical Notes Sep, Osteoporosis (ICD-10 - M81.0) [facility] [facility] Other 10-14-2021 Evaluation note* Encounter Date Diagnosis [...] see her as needed in the future. [employer] Other 07-24-2012 History general Narrative - Reported* Type Description Date Medical History lipid panel- hxu-fet-K7-TSH-hemo globin A1c done 03-20-12 Medical History 05/14/12 CT of the abdomen and p eileen [place] Medical History DEXA scan done 04/03/13, 11/2018 Medical History Colonoscopy done 2006 Medical History Mammogram done in 2007 Medical History 08/06/13 Labs Medical History 06/07/11-pneumonia vaccine at [facility] Medical History 08/08/13, 08/24/15 WNL-mammogram at [facility] Medical History 09/15/15 Echocardiogram done at [facility] Medical History 01/2016- skin cancer removed fro m left bottom eye lid Medical History 09/12/16 mammogram Medical History sacral fracture Medical History hyperlipidemia Medical History HTN Medical History ischemic colitis Medical History 03/2021 community outreach vascu lar studies Medical History 03/2021 DEXA Surgical History appendectomy Surgical History hysterectomy Surgical History 2 ear surgeries Hospitalization History see above [employer] Other Evaluation noteNo InformationNort [employer] Other evaluation noteNort [employer] Other Evaluation noteNoShop Points [employer] Other Evaluation noteNo assessment information available [facility] Work Phone: Evaluation note* Diagnosis Onset Date Resolution Status Apnea, sleep acute COPD (chronic obstructive pulmonary disease) acute [facility] Work Phone: Evaluation note* Author Aleksandr Olivo [facility] Authored November 15, 2023 12: 56pm The above note written by CHAZ Spicer acting as human recorder, note dictated by Dr.Brett Xie . [facility] Work Phone: Evaluation note* Diagnosis Benign essential hypertension- Primary Essential hypertension, benign Paroxysmal supraventricular tachycardia (CMS-HCC) Paroxysmal supraventricular tachycardia Mixed hyperlipidemia Former cigarette smoker Personal history of tobacco use, presenting hazards to health documented in this encounter [facility] Work Phone: Evaluation note* Author Selene Storey [facility] Authored September 19, 2024 1 :01pm The above note written by Kaiden WARE acting as human recorder, note dictated by Dr. Sheldon Xie. [facility] Work Phone: Evaluation note* Diagnosis Mixed conductive [...] Weight loss acute December 24 025 1:46pm [facility] Work Phone: History general Narrative - [facility] Other History general Narrative - ReportedNotexas [facility] [employer] Other Reason for referral (narrative)* Consultation (Routine) - Authorized Specialty Diagnoses / Procedures Referred By Contac t Referred To Contact Cardiology Diagnoses Paroxysmal supraventricular tachycardia ([facility]) Procedures Follow Up In Cardiology Ronnie Amin MD [address] [place] [id number] Celestina Khalil MD [address] [place] [address], [address] [address] Referral ID Status Reason Start Date Expiration Date V isits Requested Visits Authorized [id number] Authorized 02/09/2024 02/08/2025 1 1 [facility] Work Phone: Reason for referral (narrative)No reason for referral information availableSum[facility] Work Phone: Family History No Family History [...] obstru ctive pulmonary disease) (J44.9) Referral Organization [facility] Family Medicin e [place] Referring Provider First Name Sheldon Referring Provider Last Name Anne-Marie Referring Provider Specialty Family Prac nino Referred Organization [facility] Pulmonary Dise ase Referred Provider Dre Looney Referred Address [address],[place], [place],[address] Referred Provider Specialty Pulmonary Cici connolly Referral Priority Routine Referral Appointment Date 2023-10-30 General Notes Ruby Valerorafi Thomson 023 03:15:11 PM >Received today and sent P2P. 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) Diagnosis 2 Foot fracture, right (S92.901A) Referral Organization [facility] Family Medicin e [place] Referring Provider First Name Sheldon Referring Provider Last Name Anne-Marie Referring Provider Specialty Family Prac nino Referred Provider Specialty Vascular Patricio rosa Referral Priority Routine Reason 09/02/22 @ 10:00am consult and treat Diagnosis 1 Foot fracture, right (S92.901A) Referral Organization [facility] Family Medicin e [place] Referring Provider First Name Sheldon Referring Provider Last Name Anne-Marie Referring Provider Specialty Family Prac nino Referred Organization [facility] Referred Provider Sammie Duran Referred Address [address] Jagdish BARBOZAWV,[address] Referred Provider Specialty Nurse Practi tioner Referral Priority Routine Referral Appointment Date 2022-09-02 General Notes OlivoPallavi delgado 09:15:42 AM >pt will be going through [facility]- per [facility] pt will see a ELECTRONICS ENGINEERING TECHNOLOGIST today 09/02/22 and request a full referral. I couldn't find the [facility] facility to send it myself Gabrielle Valero [...] obstru ctive pulmonary disease) (J44.9) Referral Organization [facility] Aayush Duran Referring Provider First Name Sheldon Referring Provider Last Name Anne-Marie Referring Provider Specialty Family Evon oneill Referred Organization Unknown Facility Referred Provider Elma [...] Weight loss December 24, 2024 1:4 6pm Chief Complaint Admit Date review labs December 24, 2024 1:4 6pm Hospital F/U-pneumonia February 12, 2025 1 :06pm 1 month f/u March 17, 2025 9:08 am Reason for Visit Admit Date Hyperlipidemia December 24, 2024 1:4 6pm Hypertension December 24, 2024 1:4 6pm Osteoporosis December 24, 2024 1:4 6pm Weight loss December 24, 2024 1:4 6pm CHF (congestive heart failure) January 1:06pm COPD (chronic obstructive pulmonary dise ase) February 12, 2025 1:06pm Osteoporosis February 12, 2025 1:06 pm Oxygen dependent February 12, 2025 1:06 pm Pneumonia February 12, 2025 1:06 pm Type 2 myocardial infarction February 12, 2025 1:06pm CHF (congestive heart failure) February 9:08am Hypernatremia March 17, 2025 9:08 am Pneumonia March 17, 2025 9:08 am Additional Source Comments INFORMATION SOURCE (unrecogn ized section and content) DATE CREATED AUTHOR 02/09/2022 [facility] DATE CREATED AUTHOR AUTHOR'S ORGANIZ ATION 01/11/2023 [facility] DATE CREATED AUTHOR AUTHOR'S ORGANIZ ATION 10/01/2023 [facility] DATE CREATED AUTHOR AUTHOR'S ORGANIZ ATION 11/16/2024 [facility] DATE CREATED AUTHOR AUTHOR'S ORGANIZ ATION 01/04/2025 [facility] EPIC DATE CREATED AUTHOR AUTHOR'S ORGANIZ ATION 02/06/2025 [facility] DATE CREATED AUTHOR AUTHOR'S ORGANIZ ATION 03/27/2025 [facility] REASON FOR VISIT (unrecogniz ed section and content) Reason Comments Annual Exam Care Teams (unrecognized sec tion and content) Team Status: Active Member Role Status Betzy Xie DO Primary Care Provider Active Team [...] Status Dates Sheldon Xie DO Primary Care Provider, Attending Provi jessica Active HIEU Richards Referring Provider Active Team Status: Inactive Member Role Status Dates Sheldon Xie DO Attending Provider Active Start: July 04, 2023 End: July 04, 2023 Team Status: Inactive Member Role Status Dates Sheldon Xie DO Primary Care Provide r, Attending Provider Active Start: August 07, 2023 End: August 07, 2023 Team Status: Inactive Member Role Status Dates Dre Looney MD Attending Provider Active Start: August [...] Attending Provider Active Start: November 16, 2023 Hogshead Packer Relationship Specialty Start Date End Date Sheldon Xie DO PCP - General 08/28/99 Team Status: Inactive Member Role Status Betzy Xie DO Primary Care Provide r, Attending Provider Active Start: May 16, 2024 End: May 16, 2024 Team Status: Inactive Member Role Status Dates Sheldon Xie DO Primary Care Provider Active Sta rt: June 06, 2024 End: June 06, 2024 HOLLY RichardsC Attending Provider Active Start: June 06, 2024 End: June 06, 2024 Team Status: Inactive Member Role Status Dates Sheldon Xie DO Primary Care Provide r, Attending Provider Active Start: June 18, 2024 End: June 18, 2024 Hogshead Packer Relationship Specialty Start Date End Date Sheldon Xie DO [address] [place] [id number] PCP - General Family Medicine 11/13/24 Team Status: Inactive Member Role Status Dates Sheldon Xie DO Primary Care Provide r, Attending Provider Active Start: December 24, 2024 End: December 24, 2024 Hogshead Packer Relationship Specialty Start Date End Date Sheldon Xie DO [address] [place] [address] PCP - General Family Medicine 12/26/24 Team Status: Inactive Member Role Status Dates Sheldon Xie DO Primary Care Provider Active Sta rt: December 24, 2024 End: December 24, 2024 Sheldon Xie DO Attending Provider Active Start: December 24, 2024 End: December 24, 2024 Team Status: Active Member Role Status Dates Sheldon Xie DO Primary Care Provider Active Sta rt: January 22, 2025 Sheldon Xie DO Attending Provider Active Start: January 22, 2025 Team Status: Active Member Role Status Dates Sheldon Xie DO Primary Care Provider Active Sta rt: January 23, 2025 Ranjit Peralta MD Attending Provider Active Star t: January 23, 2025 Team Status: Active Member Role Status Dates Sheldon Xie DO Primary Care Provider Active Sta rt: January 24, 2025 Ranjit Peralta MD Attending Provider Active Star t: January 24, 2025 Team Status: Active Member Role Status Dates Sheldon Kuns , DO Primary Care Provider Active Sta rt: January 25, 2025 Ranjit Peralta MD Attending Provider Active Star t: January 25, 2025 Team Status: Active Member Role Status Dates Sheldon Xie DO Primary Care Provider Active Sta rt: January 26, 2025 Ranjit Peralta MD Attending Provider Active Star t: January 26, 2025 Team Status: Active Member Role Status Dates Sheldon Xie , DO Primary Care Provider Active Sta rt: January 27, 2025 Ranjit Peralta MD Attending Provider Active Star t: January 27, 2025 Team Status: Active Member Role Status Dates Sheldon Xie DO Primary Care Provider Active Sta rt: January 28, 2025 Ranjit Peralta MD Attending Provider Active Star t: January 28, 2025 Team Status: Active Member Role Status Dates Sheldon Xie DO Primary Care Provider Active Sta rt: January 29, 2025 Ranjit Peralta MD Attending Provider Active Star t: January 29, 2025 Team Status: Active Member Role Status Dates Sheldon Xie DO Primary Care Provider Active Sta rt: January 30, 2025 Caleb Hernandez MD Attending Provider Active Sta rt: January 30, 2025 Team Status: Active Member Role Status Dates Sheldon Xie DO Primary Care Provider Active Sta rt: January 31, 2025 Caleb Hernandez MD Attending Provider Active Sta rt: January 31, 2025 Team Status: Inactive Member Role Status Dates Sheldon Xie DO Primary Care Provider Active Sta rt: February 12, 2025 End: February 12, 2025 Sheldon Xie , DO Attending Provider Active Start: February 12, 2025 End: February 12, 2025 Team Status: Active Member Role Status Dates Sheldon Xie DO Primary Care Provider Active Sta rt: February 13, 2025 Sheldon Xie DO Attending Provider Active Start: February 13, 2025 Team Status: Active Member Role Status Betzy Xie DO Primary Care Provider Active Sta rt: February 27, 2025 Iam Jiménez Attending Provider Active Start: February 27, 2025 Team Status: Inactive Member Role Status Dates Sheldon Xie DO Primary Care Provider Active Sta rt: March 17, 2025 End: March 17, 2025 Sheldon Xie DO Attending Provider Active Start: March 17, 2025 End: March 17, 2025 Goals (unrecognized section and content) Goals may [...] BE BASED ON THE PRIMARY CLINICAL RECORDS. [facility] [employer]. provides no warranty or guarantee of the accuracy or completeness of information in this document.
[2025-03-31 09:32] LABS: Anion Gap 5.3; Blood Urea Nitrogen 29.0 mg/dL (7.0-18.0); Calcium 10.0 mg/dL (8.5-10.1); Carbon Dioxide 37.6 mmol/L (21.0-32.0); Chloride 104 mmol/L (98-107); Estimated GFR (African America >60 (>=60 mL/min/1.73m^2); Estimated GFR (Non-African Ame >60 (>=60 mL/min/1.73m^2); Glucose 84 mg/dL (74-106); NT Pro B Type Natriuretic Pept 1606.0 pg/mL (<=1800.0); Potassium 3.9 mmol/L (3.5-5.1); Sodium 143 mmol/L (136-145)
== END 2025-03-31 07:39 | disposition home or self-care (01) ==
LOC: LAB 07:41
PROVIDERS: PCP Family Medicine; Visit Provider Nurse Practitioner Family
DX: I50.33 Acute on chronic diastolic (congestive) heart failure (principal)
CPT/HCPCS: 36415; 80048; 83880

== ENCOUNTER 2025-06-20 19:23 | Emergency (ER) | payer MEDICARE, SELFPAY ==
[2025-06-20] VITALS (28 sets, daily range): BP systolic 129–155; BP diastolic 63–85; PULSE 80–120; TEMP 36.8; O2SAT 82–99; BMI 16.5
--- OUTSIDE RECORDS SUMMARY | 2025-06-20 19:31 | XMS_ITS | Clinical Summary ---
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)from Last 3 Months Social History Tobacco UseTypesPacks/DayYears UsedDateSmoking Tobacco: Never Assessed CommentsUnknownSex and Gender InformationValueDate RecordedSex Assigned at Ngbixu7009/17/2024 4:10 PM ESTLegal YpjTbkgej91/15/2023 6:38 PM EDTGender Identity Yhoeeh1709/17/2024 4:10 PM ESTSexual OrientationNot on file Last Filed Vital Signs Vital SignReadingTime TakenCommentsBlood Fqspbvfd998/8210 12:00 PM EDT Pulse--Temperature--Respiratory Rate--Oxygen Saturation--Inhaled Oxygen Concentration--Rmryzn39.8 kg (112 lb)01/11/2022 12:00 PM YOPQosymu929.5 cm (5' 2 )01/11/2022 12:00 PM EDTBody Mass Index20.49001/11/2022 12:00 PM EDT Plan of Treatment DateTypeDepartmentCare Team (Latest Contact Info)Ldmbelfoxtt93/05/2025 2:45 PM ESTOffice Visit [facility] [address] [place] [address] Health MaintenanceDue DateLast DoneCommentsPneumococcal Vaccine: 65+ Years (2 of 2 - PCV20 or PCV21)Influenza Vaccine (#1)2025 06/18/2024, 05/30/2023, 05/24/2022, Additional history exists Insurance Care Teams Team MemberRelationshipSpecialtyStart DateEnd Date Geo Montejo, [address] [place] [address] PCP - GeneralFamily Medicine12/26/24
--- OUTSIDE RECORDS SUMMARY | 2025-06-20 19:31 | XMS_ITS | Clinical Summary ---
Author Organization [facility] Address [address] [place] [address] Phone Care Team Providers Care Pocket And Pulley Machine Operator Name Role Phone Geo Montejo DO Primary Care Provider [phone] Allergies Active AllergyReactionsCriticalityNoted DateCommentsCodeineNausea OnlyMedium 08/31/2023 Medications MedicationSigDispense QuantityRefillsLast FilledStart DateEnd DateStatus aspirin 81 mg EC tablet Take 1 tablet (81 mg) by mouth once daily.Active CALCIUM CARBONATE-VITAMIN D3 ORAL Take 1 tablet by mouth once daily.Active clonazePAM (KlonoPIN) 0.5 mg tablet Take 1 tablet (0.5 mg) by mouth once daily.Active esomeprazole magnesium (NexIUM 24HR) 20 mg tablet,delayed release (DR/EC) Take 1 tablet by mouth once daily.Active fluticasone (Flonase) 50 mcg/actuation nasal spray Administer 2 sprays into each nostril once daily.Active wdvgrrqehkq-okfcxlqvc-rbnqscat (TRELEGY-ELLIPTA) 100-62.5-25 mcg blister with device Inhale 1 puff.Active latanoprost (Xalatan) 0.005 % ophthalmic solution Administer 1 drop into both eyes once daily.Active multivitamin with minerals iron-free (Centrum Silver) Take 1 tablet by mouth once daily.Active potassium chloride CR 10 mEq ER tablet Take 2 tablets (20 mEq) by mouth once daily.Active vit H-L-dyieem-zinc-lutein (Eye Multivit-Lutein,C-E-Cu-Zn,) 226 mg-90 mg-2 mg- 34.8 mg-5 mg capsule Take 1 tablet by mouth see administration instructions.Active brimonidine-timoloL (Combigan) 0.2-0.5 % ophthalmic solution Administer 1 drop into both eyes every 12 hours.Active albuterol 2.5 mg /3 mL (0.083 %) nebulizer solution Three times daily11/15/2023ctive romosozumab-aqqg (Evenity) 105 mg/1.17 mL syringe Inject under the skin every 30 (thirty) days.Active torsemide (Demadex) 10 mg tablet Indications:Edema, unspecified typeTAKE 1 TABLET BY MOUTH DAILY 90 tablet 4Active lisinopril 2.5 mg tablet Indications:Benign essential hypertensionTAKE 1 TABLET BY MOUTH ONCE DAILY 90 tablet 5Active carvedilol (Coreg) 6.25 mg tablet Indications:Benign essential hypertension,Paroxysmal supraventricular tachycardiaTAKE 1 TABLET BY MOUTH TWICE DAILY 180 tablet 5Active pravastatin (Pravachol) 40 mg tablet Indications:Hyperlipidemia, unspecified hyperlipidemia typeTake 1 tablet (40 mg) by mouth once daily at bedtime. 90 tablet 504/6Active Active Problems ProblemNoted DateDiagnosed DateFormer cigarette tnpihk8802/09/2024enign essential emvzuizpkmzx29/04/2024hest pain08/31/2023OPD (chronic obstructive pulmonary disease)8458Azcraoj43/04/6272Egigs23/04/6010Luelapwr60/04/2024 Rukxfayjfyzrbk36/04/2024aroxysmal supraventricular yeoxthqddfx87/04/2024 Encounters DateTypeDepartmentCare XsglXpxzallumba92/16/[address]25[address] [address] Celestina Khalil MD Edema, unspecified type04/12/2025[address] [address] Celestina Khalil MD Edema, unspecified typefrom Last 3 Months Social History Tobacco UseTypesPacks/DayYears UsedDateSmoking Tobacco: FormerCigarettes Smokeless Tobacco: Never Tobacco Cessation:Counseling Given: Not Answered Alcohol UseStandard Drinks/WeekCommentsYes0 (1 standard drink = 0.6 oz pure alcohol)couple times a yearCommentsUnknownSex and Gender Information ValueDate RecordedSex Assigned at BirthNot on fileLegal ByvKfvagg20/26/2022 8:51 PM ESTGender IdentityNot on fileSexual OrientationNot on file Last Filed Vital Signs Vital SignReadingTime TakenCommentsBlood Iklnkgjm808/5806 1:16 PM EDT Sbkcd394002/09/2024 1:16 PM EDTTemperature--Respiratory Rate--Oxygen Saturation-- Inhaled Oxygen Concentration--Mcpimc76.4 kg (109 lb)02/09/2024 1:16 PM EDTHeight 157.5 cm (5' 2 )02/09/2024 1:16 PM EDTBody Mass Index19.9402/09/2024 1:16 PM EDT Plan of Treatment Health MaintenanceDue DateLast DoneCommentsCreatinine Level1Lipid Panel 1941Medicare Annual Wellness Visit (AWV)1Potassium Level 1941iabetes Wlyhgwzyc39/14/1959DTaP/Tdap/Td Vaccines (1 - Tdap)1963 Bone Density Scan2006RSV High Risk: (Elderly (60+) or Population) (1 - 1-dose 75+ series)07/11/20169488Ssnejhddghmdky31/05/250769/12/2023Influenza Vaccine (#1)/, 05/30/2023, 05/24/2022, Additional history existsCOVID-19 Vaccine ( season)/12/2020, 10/17/2020, 09/26/2020Irritable Bowel IcjehwojSuqmhnbqjnlj90/16/2017Pneumococcal Vaccine Xrroucmdw37/15/2019, 08/28/2018, 08/28/2017, Additional history existsZoster GzdxfiaiLixusyzdc37/20/2019, 06/03/2019, 06/06/2013HIB VaccinesAged OutNo longer eligible based on patient's age to complete this topicHPV VaccinesAged OutNo longer eligible based on patient's age to complete this topicHepatitis A VaccinesAged OutNo longer eligible based on patient's age to complete this topic Hepatitis B VaccinesAged OutNo longer eligible based on patient's age to complete this topicIPV VaccinesAged OutNo longer eligible based on patient's age to complete this topicMeningococcal VaccineAged OutNo longer eligible based on patient's age to complete this topicRotavirus VaccinesAged OutNo longer eligible based on patient's age to complete this topic Procedures Procedure NamePriorityDate/TimeAssociated DiagnosisCommentsECHOCARDIOGRAM 09/01/2023 UIHQSZQOUHV65/16/2017 from Last 3 Months or Most Recently Relevant to Health Maintenance Results * ECHOCARDIOGRAM (09/01/2023) Narrative 09/01/2023 Ordered by an unspecified provider. Authorizing ProviderResult TypeResult StatusGeneric Provider ScanningCV ECHO PROCEDURESFinal Result * COLONOSCOPY (10/13/2016)Anatomical RegionLateralityModalityEndoscopy Narrative 10/13/2016 Ordered by an unspecified provider. Authorizing ProviderResult TypeResult StatusOnbase ConversionENDOSCOPY PROCEDURE ORDERABLESFinal Result from Last 3 Months or Most Recently Relevant to Health Maintenance Insurance MemberSubscriberPlan / Payer (Effective 2023-Present)Name:Ebony Hobson Relation to Subscriber:SelfName:Ebony Hobson Payer ID:[id number] (NAIC) Type:Not on file Address: [place] [id number] Care Teams Team MemberRelationshipSpecialtyStart DateEnd Date Geo Montejo DO PCP - General08/28/99
--- OUTSIDE RECORDS SUMMARY | 2025-06-20 19:31 | XMS_ITS | Clinical Summary ---
Author Organization [facility] Address [address] [place] [address] Care Team Providers Care Corporate Quality Engineer Name Role Phone Longjagdish Geo Primary Care Provider [phone] Allergies Active AllergyReactionsCriticalityNoted DateCommentsCodeineNausea OnlyMedium 08/31/2023 Medications MedicationSigDispense QuantityRefillsLast FilledStart DateEnd DateStatus albuterol 2.5 mg /3 mL (0.083 %) nebulizer solution Take 2.5 mg by nebulization three times daily.11/15/2023ctive aspirin 81 mg EC tablet Take 81 mg by mouth in the morning.Active clonazePAM (KlonoPIN) 0.5 mg tablet Take 0.5 mg by mouth in the morning.Active fluticasone (Flonase) 50 mcg/actuation nasal spray Administer 2 sprays into each nostril two times daily.Active lisinopril 2.5 mg tablet Take 2.5 mg by mouth in the morning.5Active potassium chloride CR (Klor-Con) 10 mEq ER tablet Take 20 mEq by mouth in the morning.Active pravastatin (Pravachol) 40 mg tablet Take 40 mg by mouth at bedtime.ctive predniSONE (Deltasone) 10 mg tablet Take 10 mg by mouth in the morning.Active metoprolol tartrate (Lopressor) 50 mg tablet Indications:Atrial tachycardiaTake 1 tablet (50 mg) by mouth two times daily. 180 tablet ctive torsemide (Demadex) 10 mg tablet Indications:Acute on chronic diastolic heart failure (CMS/HCC),Pulmonary hypertension (CMS/HCC)Take 2 tablets (20 mg) by mouth in the morning. Increase torsemide to 20mg daily x7 days then alternate days of 10mg and 20mg daily 180 tablet tive Active Problems ProblemNoted DateDiagnosed DateFormer cigarette mgonmc8302/09/2024enign essential lcstommzbiku69/04/2024hest pain08/31/2023OPD (chronic obstructive pulmonary disease)08/31/20236393Qupsewu67/04/9044Cuycu88/04/4648Qyfksakf14/04/2024 Ztrtotxslcqdcb05/04/2024aroxysmal supraventricular ahdbefbjofb98/04/2024 Encounters DateTypeDepartmentCare IyvlKnapjntaizd39/09/2025 10:20 AM EDTOffice Visit [facility] [address] [place] [facility] [place] [address] Jennifer Marroquin CNP Chronic diastolic heart failure (CMS/HCC) (Primary Dx); Pulmonary hypertension (CMS/HCC); Atrial tachycardia, multifocal; Paroxysmal supraventricular tachycardia; Mixed hyperlipidemia; Benign hypertensive heart disease with heart failure (CMS/HCC)04/08/2025 2:15 PM EDTOffice Visit [facility] [address] [place] [facility] [place] [address] Bautista Knox MD Atrial tachycardia, multifocal (Primary Dx)04/02/2025Telephone [facility] [address] [place] [facility] [place] [address] Adenike Phillips MA 04/01/2025Telephone [facility] [address] [place] [facility] [place] [address] Karen Brennan MA 03/20/2025 2:00 PM EDTOffice Visit [facility] [address] [place] [facility] [place] [address] Jennifer Marroquin CNP Acute on chronic diastolic heart failure (CMS/HCC) (Primary Dx); Pulmonary hypertension (CMS/HCC); Atrial tachycardiafrom Last 3 Months Family History RelationNameStatusCommentsFatherDeceasedMotherDeceased Social History Tobacco UseTypesPacks/DayYears UsedDateSmoking Tobacco: FormerCigarettesPassive Smoke Exposure: PastSmokeless Tobacco: Never Tobacco Cessation:Counseling Given: Not Answered Alcohol UseStandard Drinks/WeekCommentsYes0 (1 standard drink = 0.6 oz pure alcohol)occasionalCommentsUnknownSex and Gender InformationValueDate RecordedSex Assigned at VhipfIoydnk44/07/2025 12:14 PM EDTLegal SexFemale 01/28/2025 8:42 AM EDTGender BlnzusxhMfeeiq94/07/2025 12:14 PM EDTSexual OrientationHeterosexual or Vggcnhrp65/07/2025 12:14 PM EDT Last Filed Vital Signs Vital SignReadingTime TakenCommentsBlood Vqbanwda189/6506/05/2025 10:11 AM EDT Liomt759606/05/2025 10:11 AM EDTTemperature--Respiratory Rate--Oxygen Saturation 91%06/05/2025 10:11 AM EDTwithout o2 onInhaled Oxygen Concentration--Kcfsou28.6 kg (94 lb)06/05/2025 10:11 AM MNRLeanmr864.4 cm (5')06/05/2025 10:11 AM EDTBody Mass Index18.361 10:11 AM EDT Plan of Treatment Health MaintenanceDue DateLast DoneCommentsMedicare Annual Wellness (AWV) 1Depression Amqmthxcr23/14/1953Adult Gbhcgjf8007/11/1963Fall Risk Hlzxdeegb68/14/2006Pneumococcal Vaccine: 50+ Years (2 of 2 - PPSV23, PCV20, or PCV21)COVID-19 Vaccine (4 - 2024- season)2025 06/01/2021, 10/17/2020, 09/26/2020Influenza Vaccine (#1), 05/30/2023, 05/24/2022, Additional history existsZoster VaccinesCompleted 08/16/2019, 06/03/2019, 06/06/2013HIB VaccinesAged OutNo longer eligible based on patient's age to complete this topicHPV VaccinesAged OutNo longer eligible based on patient's age to complete this topicIPV VaccinesAged OutNo longer eligible based on patient's age to complete this topicMeningococcal B Vaccine Aged OutNo longer eligible based on patient's age to complete this topic Meningococcal VaccineAged OutNo longer eligible based on patient's age to complete this topicRotavirus VaccinesAged OutNo longer eligible based on patient's age to complete this topic Insurance Care Teams Team MemberRelationshipSpecialtyStart DateEnd Date Geo Montejo DO [address] [place] [address] PCP - GeneralFamily Medicine02/05/25
--- OUTSIDE RECORDS SUMMARY | 2025-06-20 19:32 | XMS_ITS | CCD ---
Author Organization [facility] Care Team Providers Care Banquet Director Name Role Phone Unavailable Unavailable Sheldon Xie R Unavailable Alireza Olvera Unavailable Sheldon Xie Unavailable Kuns, DO Sheldon Primary Care Provider Kuns, DO Sheldon Attending Provider Kuns, DO Sheldon Primary Care Provider Kuns, DO Sheldon Attending Provider Kuns, DO Sheldon Primary Care Provider Kuns, DO Sheldon Attending Provider Kuns, DO Sheldon Primary Care Provider Kuns, DO Hseldon Attending Provider HIEU Duran Attending Provider HIEU Duran Referring Provider Sammie Duran Unavailable Longs, DO Sheldon Primary Care Provider Longs, DO Sheldon Attending Provider HIEU Duran Attending Provider HIEU Duran Referring Provider Longs, DO Sheldon Primary Care Provider Longs, DO Sheldon Attending Provider HIEU Duran Attending Provider [phone] SAMMIE DURAN Attending Unavailable ROGER, SAMMIE Consulting Unavailable ANNE-MARIE, DR CHUNG Primary Care Unavailable ROGER, SAMMIE Admitting Unavailable KUNJagdish, DR CHUNG Primary Care Unavailable SAMSA ., ELMA Attending Unavailable SAMSA ., ELMA Admitting Unavailable SAMSA ., ELMA Admitting Unavailable SAMSA ., ELMA Attending Unavailable SAMSA ., ELMA Consulting Unavailable ANNE-MARIE, DR CHUNG Referring Unavailable KUNJagdish, DR CHUNG Primary Care Unavailable ROGER, SAMMIE Admitting Unavailable ROGER, SAMMIE Attending Unavailable ROGER, SAMMIE Attending Unavailable KUNJagdish, DR CHUNG Primary Care Unavailable ROGER, SAMMIE Admitting Unavailable KUNJagdish, DR CHUNG Primary Care Unavailable ROGER, SAMMIE Consulting Unavailable ROGER, SAMMIE Admitting Unavailable ROGER, SAMMIE Attending Unavailable ROGER, SAMMIE Admitting Unavailable KUNJagdish, DR CHUNG Primary Care Unavailable ROGER, SAMMIE Consulting Unavailable ROGER, SAMMIE Attending Unavailable ROGER, SAMMIE Attending Unavailable ROGER, SAMMIE Consulting Unavailable ANNE-MARIE, DR CHUNG Primary Care Unavailable ROGER, SAMMIE Admitting Unavailable DO Sheldon Xie Primary Care Provider DO Sheldon Xie Attending Provider Dre Looney Unavailable [phone] DO Sheldon Xie Primary Care Provider DO Sheldon Xie Attending Provider MD Dre Looney Attending Provider SHEDLON XIE Referring Unavailable SHELDON XIE Primary Care Unavailable DO Sheldon Xie Primary Care Provider MD Dre Looney Attending Provider DO Sheldon Xie Attending Provider HIEU Duran Attending Provider Kuns, DO Sheldon Primary Care Provider MD Dre Looney Attending Provider Kuns, DO Sheldon Primary Care Provider Kuns, DO Sheldon Attending Provider [phone] Kuns DO, Sheldon R Primary Care Provider Unavailab le Kuns, DO Sheldon Primary Care Provider Kuns, DO Sheldon Attending Provider [phone] Kuns, DO Sheldon Primary Care Provider Kuns, DO Sheldon Attending Provider Kuns DO, Sheldon Primary Care Provider [phone] Kuns DO, Sheldon Attending Provider Unavailable Primary Care Provider Unavailabl e Kuns DO, Sheldon Primary Care Provider Kuns DO, Sheldon Attending Provider Kuns, Sheldon Primary Care Unavailable Kuns, Sheldon Attending Unavailable Kuns, Sheldon Admitting Unavailable Kuns, Sheldon Primary Care Unavailable Aure, Dre E Admitting Unavaila ble Aure, Dre Ortiz Attending [...] Kuns DO, Sheldon R Primary Care Provider [phone] Kuns DO, Sheldon R Primary Care Provider RONNIE AMIN Attending Unavailable KUNS, SHELDON R Primary Care Unavailable Kuns DO, Sheldon Primary Care Provider Kuns DO, Sheldon Attending Provider Ranjit Peralta MD Attending Provider Caleb Hernandez MD Attending Provider [phone] Iam Jiménez Attending Provider [phone] Sheldon Xie DO Primary Care Provider Sheldon Xie DO Attending Provider [phone] Artem Daniels Attending Provider [phone] Dre Looney MD Attending Provider TAMMY MELGAR Attending Unavailable IAM JIMÉNEZ Attending Unavailable ARTEM MARROQUIN Attending Unavailable ARTEM MARROQUIN Attending Unavailable BAUTISTA BLISS Attending Unavailable ARTEM MARROQUIN Attending Unavailable Allergies Allergy ClassificationReported Allergen(s)Allergy TypeDate of OnsetReaction(s) FacilityBotulinum Toxin Type A (1 source)Botulinum Toxin Type ADrug Mbqenaz62-97-2192bammsynylDsbrabmmxSouthview Medical CenterOpioid Agonists (1 source)CodeineDrug Jjipcfg14-03-7171Grsafq, nauseatedProvidence Hospital (20 sources)Codeine; Translations: [Codeine Derivatives]Drug Uumelwh33-33-5253 [facility] (20 sources)Botulinum Toxin Type ADrug AllergydyTr[facility] Other (20 sources)Codeine; Translations: [Codeine]Drug Vvfxcfa04-97-4790Tykwgp, Nausea, nauseaUniversity [facility]als [facility] (1 source)Botulinum Toxin Type ADrug Fwtgclu33-11-4651HabMet[facility] (20 sources)Botulinum Toxin Type A; Translations: [onabotulinumtoxinA]Drug Kgbrljk97-31-2393imfpfptzzGvlxilyiuSouthview Medical Center Medications Current Medications MedicationDrug Class(es)DatesSig (Normalized)Sig (Original)acetaminophen 325 mg oral tablet (20 sources)Start: 88-88-6526Hukir: 71-89-4202Ugyoqjlyikrsv (Tylenol) 325 mg tablet Active MG PO October 16, 2023 1:00am FreeTextSi tabletas needed Orally every 7-8 hrs; Note: Source Status: Taking; Provider: Anne-Marie Chung RStart: 89-73-2558Fuxiwxn 325 MG 3 tablet as needed Orally every 7-8 hrs Aug, ActiveStart: 83-46-3976fajzooouokns 0.0075 mg/ml inhalation solution (6 sources)beta2-Adrenergic Agonisttake 2 mL by inhalation twice daily Arformoterol Tartrate 15 MCG/2ML 2 mL Inhalation Twice a day Activetake 2 mL by inhalation twice dailyArformoterol Tartrate 15 MCG/2ML 2 mL Inhalation Twice a day Activeaspirin 81 mg delayed release oral tablet (20 sources)Platelet Aggregation Inhibitor, Nonsteroidal Anti-inflammatory Drug Start: 61-89-2607bifx 1 tablet by mouth every twenty-four hoursAspirin 81 MG 1 tablet Orally Once a day Activetake 1 tablet by mouth three times weeklyAspirin 81 MG 1 tablet Orally Three times a week Activeaugmented betamethasone 0.5 mg/ml topical cream (20 sources)CorticosteroidStart: 74-27-2198Bkjeh: 00-61-2310Splmotljigvks, Augmented Active 1 APPLIC TOPICAL Twice daily November 06, 2023 12:00am FreeTextSi application Externally BID; Note: Source Status: Taking; Refills: 2; Qty: 30 Gram; Provider: Anne-Marie Chung RStart: 32-18-8838Iupprsljxlndj Dipropionate Aug 0.05 % 1 application Externally BID Aug, ActiveStart: 19-80-5109Rjjbhbvhimivq Dipropionate Aug 0.05 % 1 application Externally BID Aug, Activebrimonidine tartrate 2 mg/ml / timolol 5 mg/ml ophthalmic solution (20 sources)alpha-Adrenergic Agonist, beta-Adrenergic BlockerStart: 12-27-2018 End: 50-73-1733Zyrdp: 12-27-2018 End: 48-72-5171Mpvthismqju-Timolol (Combigan) 0.2-0.5 % Drops Active 1 DROPS EYE-BOTH Twice daily March 07, 2019 12:00amStart: 07-23-2018 End: 48-89-0518Bzyry: 07-23-2018 End: 84-27-0738Niftqsatexa-Timolol (Combigan) 0.2-0.5 % drops Discontinued SOLUTION/ DROPS July 23, 2018 1:00am December 27, 2018 9:43ambrimonidine- timoloL (Combigan) 0.2-0.5 % ophthalmic solution Administer 1 drop into both eyes every12 hours. Activetake 1 drop(s) into the eye(s) twice dailyCombigan 0.2-0.5 % 1 drop into affected eye Ophthalmic Twice a day Activetake 1 drop(s) into the eye(s) twice dailyCombigan 0.2-0.5 % Ophthalmic Solution One drop in each eye twice daily Quantity: 0 Refills: 0 Ordered: 08-Feb-2022 DO Active calcium carbonate 1250 mg oral tablet (20 sources)take 1 tablet by mouth every twelve hoursCalcium 500 MG 1 tablet with meals Orally Twice a day Activetake 1 tablet by mouth every twenty-four hoursCalcium 600 MG 1 tablet with meals Orally Once a day Activecalcium carbonate 1250 mg / cholecalciferol 200 unt oral tablet (20 sources)Vitamin DStart: 96-69-7957Fybtl: 51-27-8638Pclncap Carbonate-Vitamin D3 (Calcium 500 + D) 500 mg(1,250mg) -200 unit Tablet Active 1 TAB PO Daily December 27, 2018 12:00amtake 1 tablet by mouth twice dailyCalcium + D 600-200 MG-UNIT 1 tablet Orally Twice a day Activetake 1 tablet by mouth every twelve hours Calcium + D 600-200 MG-UNIT 1 tablet Orally Twice a day Activetake 1 tablet by mouth every twelve hoursCALCIUM CARBONATE-VITAMIN D3 ORAL (1 source)take 1 tablet by mouth once dailyCALCIUM CARBONATE-VITAMIN D3 ORAL Take 1 tablet by mouth once daily. Activecefdinir 300 mg oral capsule (1 source)Cephalosporin AntibacterialStart: 86-69-3277tofn 1 capsule by mouth every twelve hoursCefdinir 300 MG 1 capsule Orally BID for 10 day(s) Nov, ActiveCentrum (20 sources)take 1 tablet by mouth once dailyCentrum 1 tablet Orally once a day ActiveCiprofloxacin-Dexamethasone 0.3-0.1 % drops,suspension (4 sources)Start: 05-68-9374Ciisidvvjyuhi-Dexamethasone 0.3-0.1 % drops,suspension Active 4 DROPS EAR-RIGHT Daily at bedtime 7.5 March 19, 2024 2:24pm 4 drops to right ear QHSStart: 73-52-7494Ksruavndyrqqm-Dexamethasone 0.3- 0.1 % drops,suspension Active 4 DROPS EAR-RIGHT Daily at bedtime 7.5 March 19, 2024 1:24pm 4 drops to right ear QHScyclobenzaprine hydrochloride 10 mg oral tablet (1 source)Muscle RelaxantStart: 63-06-9540cvco 0.5 tablet by mouth once daily Cyclobenzaprine HCl 10 MG 1/2 tablet Orally Once a day for 30 days Feb, ActiveEye Multivitamin/Lutein (2 sources)Eye Multivitamin/Lutein ZqpouqFcizctosfhi-Msglguxgk-Aeunyobg (20 sources)Anticholinergic, Corticosteroid, beta2-Adrenergic AgonistStart: 51-28-4262Nfnxo: 30-13-4691Yemscawzfhr-Umeclidin-Vilanter (Trelegy Ellipta) 100-62.5-25 mcg blister with device Active 1 INH INHALATION Daily December 24, 2024 3:00pmStart: 09-19-2024 End: 32-79-7461Kalsh: 09-19-2024 End: 90-74-8236Ejefkaqwgxa-Umeclidin-Vilanter (Trelegy Ellipta) 100-62.5-25 mcg blister with device Discontinued 1INH INHALATION Daily September 19, 2024 2:01pm December 24, 2024 3:01pmStart: 15-70-8759Ycwlysjoczb-Umeclidin-Vilanter (Trelegy Ellipta) 100-62.5-25 mcg blister with device Active 1 INH INHALATION Daily September 19, 2024 2:01pmStart: 09-19-2024 Atnjvdcsdol-Zxdihpnud-Ckkmsvpm (Trelegy Ellipta) 100-62.5-25 mcg blister with device Active 1 INH INHALATION Daily September 19, 2024 1:01pmStart: 10-16-2023 End: 82-72-3378Xmmti: 10-16-2023 End: 68-14-4024czuj 1 puff(s) by inhalation once daily Jewogazulro-Khwymwpdj-Rnyclesu (Trelegy Ellipta) 100-62.5-25 mcg blister with device Discontinued 1INH INHALATION Daily October 16, 2023 1:00am September 19, 2024 2:02pm FreeTextSi puff Inhalation Once a day; Note: Source Status: Taking; Refills: 3; Provider: Anne-Marie Chung RStart: 10-16-2023 End: 13-93-3471peyl 1 puff(s) by inhalation once daily Aodxwfktfcm-Qkreofssf-Jbxrlsvt (Trelegy Ellipta) 100-62.5-25 mcg blister with device Discontinued 1INH INHALATION Daily October 16, 2023 12:00am September 19, 2024 1:02pm FreeTextSi puff Inhalation Once a day; Note: Source Status: Taking; Refills: 3; Provider: Anne-Marie Chung RStart: 27-23-2637phwc 1 puff(s) by inhalation once lqmqyGxoochmorxy-Dwwnmaimh-Hnucmpny (Trelegy Ellipta) 100-62.5-25 mcg blister with device Active 1 INH INHALATION Daily October 16, 2023 1:00am FreeTextSi puff Inhalation Once a day; Note: Source St atus: Taking; Refills: 3; Provider: Anne-Marie Chung RStart: 56-47-6714rjox 1 puff(s) by inhalation once woldsFedmhvmbyhn-Fglmkuunv-Kcmbclbv (Trelegy Ellipta) 100-62.5-25 mcg blister with device Active 1 INH INHALATION Daily October 16, 2023 12:00am FreeTextSi puff Inhalation Once a day; Note: Source Status: Taking; Refills: 3; Provider: Anne-Marie Chung RStart: 03-11-3931bgvz 1 puff(s) by inhalation once dailyTrelegy Ellipta 100-62.5-25 MCG/INH 1 puff Inhalation Once a day Nov, ActiveStart: 28-96-0574gvnhmsqytin-umeclidin-vilanter (TRELEGY-ELLIPTA) 100-62.5-25 mcg blister with device Inhale 1 puff.Active Trelegy Ellipta 100-62.5-25 MCG/INH AEPB as directed Quantity: 0 Refills: 0 Ordered: 14-Adria-2022 XHRjfuqr15 hr guaiFENesin 600 mg extended release oral tablet (20 sources)Start: 39-93-4965dqmuojtgttz 0.05 mg/ml ophthalmic solution (20 sources)Prostaglandin AnalogStart: 25-02-6492Bsemr: 12-59-3845Uatbpynnpjp 0.005 % drops Active 0.005 PERCENT EYE-RIGHT Daily at bedtime July 23, 2018 1:00amtake 1 drop(s) into the eye(s) once daily in the eveningLatanoprost 0.005 % 1 drop into affected eye in the evening Ophthalmic Once a day Activetake 1 drop(s) into the eye(s) at bedtimeLatanoprost 0.005 % Ophthalmic Solution INSTILL 1 DROP IN BOTH EYES AT BEDTIME. Quantity: 0 Refills: 0 Ordered: 08-Feb-2022 DO Activelisinopril 2.5 mg oral tablet (20 sources)Angiotensin Converting Enzyme InhibitorStart: 02-09-2024 End: 48-27-4376Qcpwh: 11-06-2023 End: 32-16-1179Ohvog: 67-01-5774lpca 1 tablet by mouth once dailyLisinopril 10 MG Oral Tablet TAKE 1 TABLET BY MOUTH DAILY Quantity: 90 Refills: 3 Ordered: 22-Nov-2022 Ronnie Amin MD Start : 05-Jan-2022 ActiveStart: 07-23-2018 End: 25-23-3450Rlqqs: 07-23-2018 End: 06-00-3970eitf 2 tablets by mouth once dailyLisinopril 5 mg tablet Discontinued 10 MG PO Daily October 16, 2023 11:20am November 06, 2023 11:33am Start: 07-23-2018 End: 19-26-1764lvzm 1 tablet by mouth once dailyLisinopril 5 mg tablet Discontinued 5 MG PO Daily July 23, 2018 1:00am October 16, 2023 11: 21ammetoprolol tartrate 25 mg oral tablet (2 sources)beta-Adrenergic BlockerStart: 02-12-2025 Hyxlkeoy-Voz-Pv-Lycopen-Lutein (Centrum Silver) 0.4-300-250 mg-mcg-mcg Tablet (20 sources)Start: 22-35-1604covv 1 tablet by mouth once daily Cooambng-Lyw-Vg-Lycopen-Lutein (Centrum Silver) 0.4-300-250 mg-mcg-mcg Tablet Active 1 TAB PO Dailyy 2018 11:00pmStart: 93-17-3715zpho 1 tablet by mouth once idxuyJavpreiw-Dfa-Ad-Lycopen-Lutein (Centrum Silver) 0.4-300-250 mg-mcg-mcg Tablet Active 1 TAB PO DailyDecember 27, 2018 12:00ammultivitamin with minerals iron-free (Centrum Silver) (2 sources)take 1 tablet by mouth once dailymultivitamin with minerals iron-free (Centrum Silver) Take 1 tablet by mouth once daily. Active End: 09-68-3754wsav 1 tablet by mouth once dailymultivitamin with minerals iron- free (Centrum Silver) Take 1 tablet by mouth once daily. 4Discontinued (Duplicate order)Nature's Eye Vitamin (20 sources)Start: 27-98-8869fvlc 2 capsules by mouth twice dailyNature's Eye Vitamin Active 2 CAP PO Twice daily December 26, 2018 11:00pmStart: 74-61-6933ijkr 2 capsules by mouth twice dailyNature's Eye Vitamin Active 2 CAP PO Twice daily December 27, 2018 12:00amNebulizer Machine & Supplies (11 sources)Start: 27-77-1305Ruftnjxth Machine & Supplies As directed May, ActiveStart: 76-20-9939Kiglfgaul Machine & Supplies As directed Feb, Not-TakingStart: 33-81-6706Dxxhy: 95-04-1551Fvktfjqib Machine & Supplies As directed Feb, Activepravastatin sodium 40 mg oral tablet (20 sources)HMG-CoA Reductase InhibitorStart: 94-29-5863Paocb: 41-04-1342grxy 10 mg by mouth once dailyPravastatin Active 10 MG PO Daily July 23, 2018 1:00am End: 91-44-2604koby 1 tablet by mouth once daily at bedtimepravastatin (Pravachol) 40 mg tablet Take 1 tablet (40 mg) by mouth once daily at bedtime. 02/09/2024 Discontinuedrevefenacin 0.0583 mg/ml inhalation solution (6 sources)take 3 mL by inhalation once dailyYupelri 175 MCG/3ML 3 mL Inhalation Once a day Active1.17 ml romosozumab-aqqg 89.7 mg/ml prefilled syringe (1 source)romosozumab-aqqg (Evenity) 105 mg/1.17 mL syringe Inject under the skin every 30 (thirty) days. Activetorsemide 10 mg oral tablet (20 sources)Loop DiureticStart: 02-08-2022 End: 17-24-4449mrz U-H-mlykpv-zinc-lutein (Eye Multivit-Lutein,C-E-Cu-Zn,) 226 mg-90 mg-2 mg-34.8 mg-5 mg capsule (1 source)vit Z-C-pvwovr-zinc-lutein (Eye Multivit-Lutein,C-E-Cu-Zn,) 226 mg-90 mg-2 mg-34.8 mg-5 mg capsule Take 1 tablet by mouth see administration instructions. ActiveVitamin D 25 MCG (1000 UT) (20 sources)take 1 tablet by mouth once dailyVitamin D 25 MCG (1000 UT) 1 tablet Orally Once a day Active{20 (nirmatrelvir 150 MG Oral Tablet) / 10 (ritonavir 100 MG Oral Tablet) } Pack [Paxlovid 5-Day] (3 sources)Start: 66-50-4662hrol 3 tablets by mouth every twelve hoursPaxlovid (300/100) 20 x 150 MG & 10 x 100MG 3 tablets Orally Twice a day for 5 day(s) Jul, Active (5 sources)Start: 85-44-4023Kzpdd: 12-27-2018 Completed/Discontinued Medications MedicationDrug Class(es)DatesSig (Normalized)Sig (Original)acetaminophen 325 mg / HYDROcodone bitartrate 5 mg oral tablet (20 sources)Opioid AgonistStart: 07-23-2018 End: 00-94-4632Oybrn: 07-23-2018 End: 39-16-8989Ezucxjuchqf-Acetaminophen ([place]) 5-325 mg tablet Discontinued 0.5 TAB PO every 6 to 8 hours as needed for pain, severe 16 4 July 23, 2018 July 26, 2018 1:00am July 27, 2018 1:02amalbuterol 0.83 mg/ml inhalation solution (20 sources)beta2-Adrenergic AgonistStart: 11-15-2023 End: 74-74-2532pasz 2.5 mg by inhalation three times dailyAlbuterol Sulfate 2.5 mg /3 mL (0.083 %) solution for nebulization Active 2.5 MG INHALATION Three ti mes daily 180 May 16, 2024 9:33amStart: 10-16-2023 End: 32-40-1346Kssln: 10-16-2023 End: 27-89-2593yrqn 3 mL by inhalation three times dailyAlbuterol Sulfate 2.5 mg /3 mL (0.083 %) solution for nebulization Discontinued 2.5 MG INHALATION Fe bruary 2023 1:00am November 15, 2023 1:05pm FreeTextSi ml prefilled vials Inhalation Threetimes a day; Note: Source Status: Taking; Provider: Anne-Marie Chung RStart: 93-96-6100Cjlgjhjwp Sulfate (2.5 MG/3ML) 0.083% 3 ml prefilled vials Inhalation Three times a day Nov, ActiveStart: 73-45-8114Cqzoruysb Sulfate (2.5 MG/3ML) 0.083% 3 ml prefilled vials Inhalation Three times a day Nov, ActiveStart: 22-18-0215Iynwyhall Sulfate (2.5 MG/3ML) 0.083% 3 ml prefilled vials Inhalation Three times a day for 30 daysNov, Active Start: 62-96-9057Bltjoehgx Sulfate (2.5 MG/3ML) 0.083% 3 ml Inhalation BID PRN Nov, ActiveAlbuterol Sulfate (2.5 MG/ 3 ML) 2.5 MG/3ML 0.083% Nebulization Solution (8 sources)Start: 97-51-9608Gognhittq Sulfate (2.5 MG/ 3 ML) 2.5 MG/3ML 0.083% Nebulization Solution 3ml Inhalation 4 times a day PRN Feb, Not-Taking Start: 60-66-2037Ubwgi: 79-96-6768Twgwkfzra Sulfate (2.5 MG/ 3 ML) 2.5 MG/3ML 0.083% Nebulization Solution 3ml Inhalation 4 times a day PRN Feb, Activeamoxicillin 875 mg / clavulanate 125 mg oral tablet (2 sources)Penicillin-class AntibacterialStart: 02-12-2025 End: 97-70-6331ctyzmucvujpo 250 mg oral tablet (11 sources)Macrolide AntimicrobialStart: 05-16-2024 End: 50-16-1396eknmirwhfzr 100 mg oral capsule (20 sources)Non-narcotic AntitussiveStart: 03-10-2019 End: 46-97-1719Hmdvjaa (5 sources)Phosphate Binder, CalciumCalcium 500/Vitamin D TABS Take 1 tablet daily Quantity: 0 Refills: 0 Ordered: 08-Feb-2022 DO Activecarvedilol 6.25 mg oral tablet (20 sources)alpha-Adrenergic Mart, beta-Adrenergic BlockerStart: 07-23-2018 End: 52-19-6075xtct 1 tablet by mouth twice daily at mealtimeCoreg 6.25 1 tablet with food Orally Twice a day ActiveCentrum Silver Oral Tablet (5 sources)take 1 tablet by mouth once dailyCentrum Silver Oral Tablet TAKE 1 TABLET DAILY. Quantity: 0 Refills: 0 Ordered: 08-Feb-2022 DO Active cholecalciferol 0.025 mg oral capsule (20 sources)Vitamin DStart: 11-06-2023 End: 55-85-7868irma 1 tablet by mouth every twenty-four hoursVitamin D 25 MCG (1000 UT) 1 tablet Orally Once a day Activeciprofloxacin 3 mg/ml / dexamethasone 1 mg/ml otic suspension (20 sources)Corticosteroid, Quinolone AntimicrobialStart: 03-19-2024 Ciprofloxacin-Dexamethasone Active 4 DROPS EAR-RIGHT Daily at bedtime 7.5 March 19, 2024 2:24pm 4 drops to right ear QHSStart: 12-27-2018 End: 26-42-3068Ikyli: 12-27-2018 End: 07-70-6873Vxwhwtypkrufp-Dexamethasone 0.3-0.1 % drops,suspension Discontinued 5 DROPS EAR-RIGHT Daily at bedtime December 27, 2018 12:00am March 19, 2024 2:25pmCiprodex ActiveCiprodex 0.3-0.1 % Otic Suspension INSTILL 5 DROP Bedtime Quantity: 0 Refills: 0 Ordered: 08-Feb-2022 DO Activecitalopram 10 mg oral tablet (20 sources)Serotonin Reuptake InhibitorStart: 11-15-2023 End: 52-02-1357Aqoub: 73-99-9804ptgw 1 tablet by mouth every twenty-four hours Citalopram Hydrobromide 10 MG 1 tablet Orally Once a day Mar, Active clonazePAM 0.5 mg oral tablet (20 sources)BenzodiazepineStart: 07-23-2018 End: ml denosumab 60 mg/ml prefilled syringe (20 sources)RANK Ligand InhibitorStart: 11-06-2023 End: 55-54-4849Pagqv: 53-81-8412Ijpqbg 60 MG/ML 60 mg Subcutaneous q 6 months Aug, Not-Taking/PRNesomeprazole 20 mg delayed release oral capsule (20 sources)Proton Pump InhibitorStart: 12-27-2018 End: 00-05-0094Jiwmleyaahuf Magnesium (Nexium) 20 mg Capsule,Delayed Release(Dr/Ec) Discontinued December 27, 2018 12:00am December 27, 2018 9:43amStart: 07-23-2018 End: 72-02-6901daey 1 tablet by mouth once dailyesomeprazole magnesium (NexIUM 24HR) 20 mg tablet,delayed release (DR/EC) Take 1 tablet by mouth once daily. ActiveEye Multivitamin/Lutein CAPS (5 sources)Eye Multivitamin/Lutein CAPS TAKE DIRECTED. Quantity: 0 Refills: 0 Ordered: 08-Feb-2022 DO Activefluticasone propionate 0.05 mg/actuat metered dose nasal spray (20 sources)CorticosteroidStart: 12-14-2023 End: 49-16-5140uanz 1 spray(s) nasal route twice dailyFluticasone Propionate 50 mcg/actuation spray,suspension Discontinued 1 SPRAY INTRANASAL Twice daily December 14, 2023 12:00am January 09, 2024 2:49pm administer into each nostril Start: 10-16-2023 End: 37-51-0956Wtrvq: 10-16-2023 End: 82-09-3708kdet 1 spray(s) nasal route once dailyFluticasone Propionate 50 mcg/actuation spray,suspension Active 1 SPRAY INTRANASAL Daily March 19, 2024 2:21pm 1 spray in each nostril Nasally Once a daytake 2 spray(s) nasal route once dailyfluticasone (Flonase) 50 mcg/actuation nasal spray Administer 2 sprays into each nostril once daily. Activetake 1 spray(s) nasal route once dailyFluticasone Propionate 50 MCG/ACT 1 spray in each nostril Nasally Once a day ActiveFluticasone Propionate 50 MCG/ACT Nasal Suspension USE DIRECTED. Quantity: 0 Refills: 0 Ordered:08-Feb-2022 DO ActiveFluticasone Propion-Salmeterol (20 sources)Corticosteroid, beta2-Adrenergic AgonistStart: 12-27-2018 End: 42-64-4461Odkaj: 12-27-2018 End: 82-09-9097rrxi 1 puff(s) by inhalation every twelve hoursFluticasone Propion-Salmeterol (Advair Hfa) 115-21 mcg/actuation Hfa Aerosol Inhaler Discontinued 1PUFF INHALATION Q1December 26, 2018 11:00pm September 27, 2019 11:07amStart: 12-27-2018 End: 69-82-2546xgkl 1 puff(s) by inhalation every twelve hoursFluticasone Propion-Salmeterol (Advair Hfa) 115-21 mcg/actuation Hfa Aerosol Inhaler Discontinued 1PUFF INHALATION Q12H December 27, 2018 12:00am September 27, 2019 12:07pmStart: 07-23-2018 End: 02-29-6294Ennfv: 07-23-2018 End: 44-56-2522Dkxmz: 07-23-2018 End: 07-49-9854Qpajlsordkz Propion-Salmeterol (Advair Diskus) 250-50 mcg/dose blister with device Discontinued July 23, 2018 12:00am December 27, 2018 8:43amStart: 07-23-2018 End: 40-36-0756Iqnhvulckxe Propion-Salmeterol (Advair Hfa) 45-21 mcg/actuation Hfa Aerosol Inhaler Discontinued July 23, 2018 12:00am December 27, 2018 8:43amStart: 07-23-2018 End: 44-43-1608Ttvevtuakak Propion-Salmeterol (Advair Diskus) 250-50 mcg/dose blister with device Discontinued July 23, 2018 1:00am December 27, 2018 9:43am Start: 07-23-2018 End: 30-97-7785Ofghkzzhiwn Propion-Salmeterol (Advair Hfa) 45-21 mcg/actuation Hfa Aerosol Inhaler Discontinued July 23, 2018 1:00am December 27, 2018 9:43am ibandronic acid 150 mg oral tablet (20 sources)BisphosphonateStart: 03-07-2019 End: 41-40-6046gwjuygvalqkx 20 mg/ml medicated shampoo (20 sources)Azole AntifungalStart: 11-06-2023 End: 40-43-3131Cmhcw: 58-01-5495Mfuvf: 49-65-0734Zcsfyjk 2% as directed applied topically twice a day Jan, ActiveKetorolac (20 sources)Nonsteroidal Anti-inflammatory Drug, Cyclooxygenase InhibitorStart: 93-36-6664Hivozef per 15 mg Aug, 2 ccStart: 18-52-8207Imjocrr per 15 mg Aug, 2 cclevoFLOXacin 500 mg oral tablet (20 sources)Quinolone AntimicrobialStart: 03-10-2019 End: 95-12-9538lxxnhlimzqi etabonate 5 mg/ml ophthalmic suspension (20 sources)Start: 07-23-2018 End: 11-97-9410Laqot: 07-23-2018 End: 84-54-4892Jnaiyogocxl Etabonate 0.5 % drops,suspension Discontinued 0.5 PERCENT EYE-BOTH Q48H July 23, 2018 1:00am November 15, 2023 12:45pm End: 70-89-4719qhsqnujijwb (Lotemax) 0.5 % ophthalmic suspension 4 times a day. 02/09/2024 Discontinued (Therapy completed)Lotemax 0.5 % Ophthalmic Gel USE DIRECTED. Quantity: 0 Refills: 0 Ordered: 08-Feb-2022 DO Activetake 1 drop(s) into the eye(s) every other dayLotemax 0.5 % INSTILL 1 DROP IN EACH EYE EVERY OTHER DAY Ophthalmic for 30 ActiveMethylprednisolone (15 sources)CorticosteroidStart: 01-29-2024 End: 59-86-5078Rsuyi: 01-29-2024 End: 00-26-3044Rkhqbsjwvhtwozfvhs (Medrol (Finn)) 4 mg tablets,dose pack Discontinued 4 MG PO As Directed January 29, 2024 12:00am March 19, 2024 2:17pmPOLYETHYLENE GLYCOL 3350 (7 sources)Osmotic LaxativeMiraLax - 1 packet mixed with 8 ounces of fluid Orally Once a day for 30 day(s) Not-TakingMiraLax - 1 packet mixed with 8 ounces of fluid Orally Once a day for 30 day(s) Activepotassium chloride 10 meq extended release oral capsule (20 sources)Start: 12-04-2017 End: 28-15-4405Trnod: 12-04-2017 End: 44-61-7633mceb 1 capsule by mouth twice dailyPotassium Chloride 10 mEq capsule, extended release Discontinued 10 MEQ PO Twice daily July 23, 2018 1:00am October 16, 2023 11:21amtake 2 tablets by mouth once dailypotassium chloride CR 10 mEq ER tablet Take 2 tablets (20 mEq) by mouth once daily. Active predniSONE 10 mg oral tablet (20 sources)Start: 02-12-2025 End: 68-21-8096Vkirv: 03-10-2019 End: 05-40-8731jlyrinzryn 0.018 mg inhalation powder (20 sources)AnticholinergicStart: 12-27-2018 End: 25-33-2298Xjvav: 07-23-2018 End: 15-22-9019Sijxq: 07-23-2018 End: 99-29-6262Hjjactfsjj Alexander (Spiriva With Handihaler) 18 mcg capsule, w/inhalation device Discontinued July 23, 2018 1:00am December 27, 2018 9:43am Problems Active Problems Problem ClassificationProblemDateDocumented DateEpisodic/ChronicAbdominal pain (3 sources)Unspecified abdominal painEpisodicAcute myocardial infarction (4 sources)Myocardial infarction; Translations: [Myocardial infarction type 2] 33-67-6841VlvefabVfybrip disorders (20 sources)Mixed anxiety and depressive disorder; Translations: [Other specified anxiety disorders]ChronicBlindness and vision defects (1 source)Unspecified visual disturbanceEpisodicCardiac dysrhythmias (4 sources)Paroxysmal supraventricular tachycardia; Translations: [Paroxysmal supraventricular tachycardia (CMS-HCC)]Onset: 994318-12-5472AsogdqxSlahdyb obstructive pulmonary disease and bronchiectasis (20 sources)Chronic obstructive lung disease; Translations: [Chronic airway obstruction, not elsewhere classified]Onset: 11-24-2021 Resolved: 36-98-6665VxkbsgvDeeslei obstructive pulmonary disease and bronchiectasis (20 sources)Bronchitis; Translations: [Bronchitis, not specified as acute or chronic]99-05-2115UprpftmwOvmtiyssda heart failure; nonhypertensive (20 sources)Chronic heart failure; Translations: [Heart failure, unspecified] Onset: 601416-90-7213FzgzpvvCebihxtr atherosclerosis and other heart disease (20 sources)Angina pectoris; Translations: [Angina pectoris, unspecified]Chronic Diseases of mouth; excluding dental (15 sources)Sialoadenitis; Translations: [Sialoadenitis, unspecified]Onset: 12-02-2021 Resolved: 17-29-8157RqpdznomEqnnfckmh of lipid metabolism (20 sources)Hyperlipidemia; Translations: [Other and unspecified hyperlipidemia] Onset: 03-22-2022 Resolved: 47-50-6207WjgrkigU Codes: Fall (12 sources)Fall; Translations: [Unspecified fall, initial encounter]Onset: 587114-37-4259FdpgbaftOhpzwnflka disorders (20 sources)Gastroesophageal reflux disease; Translations: [Gastro-esophageal reflux disease without esophagitis]79-51-0924SujodadJumgnbzwo hypertension (20 sources)Benign essential hypertension; Translations: [Benign essential hypertension]Onset: 09-07-2021 Resolved: 74-40-9156EthcvrdDpnxb and electrolyte disorders (4 sources)Hypernatremia; Translations: [Hyperosmolality and hypernatremia] 15-83-0661HauokchwSibrczqe of lower limb (20 sources)Closed fracture of foot; Translations: [Unspecified fracture of right foot, initial encounter for closed fracture]EpisodicGlaucoma (20 sources)Glaucoma; Translations: [Unspecified glaucoma]14-19-6124Qipnwwj Immunizations and screening for infectious disease (13 sources)Encounter for immunization; Translations: [Needs influenza immunization]EpisodicMalaise and fatigue (19 sources)Other fatigue; Translations: [Fatigue]EpisodicMenopausal disorders (20 sources)Menopause present; Translations: [Menopausal and female climacteric states]ChronicMood disorders (20 sources)Depressive disorder; Translations: [Major depressive disorder, single episode, unspecified]Onset: 11-24-2021 Resolved: 68-60-7305XjpyqurMbbpimcoffs chest pain (12 sources)Chest pain; Translations: [Chest pain, unspecified]Onset: 11-24-2021 Resolved: 70-39-9834ZnzexgmhHhzhevkpuycdbs (20 sources)Chronic osteoarthritis; Translations: [Unspecified osteoarthritis, unspecified site]ChronicOsteoporosis (20 sources)Osteoporosis; Translations: [Age-related osteoporosis without current pathological fracture]Onset: 10-07-2021 Resolved: 66-07-3493OqkbvwuSvpcl aftercare (1 source)Encounter for palliative careEpisodicOther bone disease and musculoskeletal deformities (1 source)Other specified disorders of bone density and structure, unspecified siteEpisodicOther connective tissue disease (20 sources)Pain in right lower limb; Translations: [Pain in right leg]Episodic Other connective tissue disease (4 sources)Pain in right footEpisodicOther connective tissue disease (3 sources)Other symptoms and signs involving the musculoskeletal system; Translations: [Other musculoskeletalsymptoms referable to limbs]01-29-2024 EpisodicOther ear and sense organ disorders (20 sources)Hearing loss; Translations: [Unspecified hearing loss, bilateral] 55-57-1955AviehxnBqvse ear and sense organ disorders (5 sources)Unspecified hearing loss, unspecified ear; Translations: [Unspecified hearing loss]28-48-2538OwyskysFpbjs ear and sense organ disorders (8 sources)Mixed conductive AND sensorineural hearing loss; Translations: [Mixed conductive and sensorineural hearing loss, unilateral, right ear with restricted hearing on the contralateral side]47-08-6928UyybiugOaise fractures (20 sources)Closed fracture sacrum; Translations: [Unspecified fracture of sacrum, subsequent encounter for fracture with routine healing]EpisodicOther gastrointestinal disorders (20 sources)Constipation; Translations: [Constipation, unspecified]EpisodicOther hereditary and degenerative nervous system conditions (20 sources)Restless legs; Translations: [Restless legs syndrome]10-17-2023 ChronicOther hereditary and degenerative nervous system conditions (11 sources)Restless legs syndrome; Translations: [Restless legs syndrome (RLS)] Onset: 07-06-2021 Resolved: 70-10-1552JgdiuioMdsgm injuries and conditions due to external causes (20 sources)Hematoma; Translations: [Other injury of unspecified body region, initial encounter]26-82-0195KuzmkexwDxycp injuries and conditions due to external causes (1 source)Unspecified injury of right foot, initial encounterEpisodicOther lower respiratory disease (1 source)Dyspnea, unspecifiedEpisodicOther lower respiratory disease (6 sources)Cough; Translations: [New onset cough]86-41-5670ThftoooxTlvic lower respiratory disease (8 sources)Rib pain; Translations: [Pleurodynia]11-26-5463EhmhlatwGieqi non- traumatic joint disorders (20 sources)Hip pain; Translations: [Pain in left hip]05-92-0239JrnswdxqZscuk nutritional; endocrine; and metabolic disorders (20 sources)Hypercalcemia; Translations: [Hypercalcemia]ChronicOther nutritional; endocrine; and metabolic disorders (2 sources)HypercalcemiaChronicOther nutritional; endocrine; and metabolic disorders (6 sources)Abnormal weight loss; Translations: [Loss of weight]Onset: 11-14-2024 EpisodicOther nutritional; endocrine; and metabolic disorders (4 sources)Weight decreased; Translations: [Abnormal weight loss]12-24-2024 EpisodicOther skin disorders (1 source)Other skin changesEpisodicOther skin disorders (6 sources)Localized swelling, mass and lump, neck; Translations: [Swelling, mass, or lump in head and neck]35-53-7694OxgoxephPnldfx media and related conditions (19 sources)Dysfunction of eustachian tube; Translations: [Unspecified Eustachian tube disorder, unspecified ear]34-44-9494AftbilpiRpcugodmmhnu fracture (4 sources)Age-related osteoporosis with current pathological fracture, unspecified site, initial encounter for fracture; Translations: [AGE-REL OP W/CURR PATH FX INIT ENC]Onset: 06-37-7541AbpkrfpeOhwaspsjyt and visceral atherosclerosis (20 sources)Peripheral vascular disease, unspecified; Translations: [Ischemic colitis]Onset: 06-10-2021 Resolved: 42-32-5834TjkebroIxfikidmi (except that caused by tuberculosis or sexually transmitted disease) (6 sources)Pneumonia; Translations: [Pneumonia, unspecified organism]02-12-2025 EpisodicPulmonary heart disease (20 sources)Pulmonary hypertension; Translations: [Pulmonary hypertension, unspecified]Onset: 693662-68-6636OipwvsfTmcwyfyp codes; unclassified (20 sources)Sleep apnea; Translations: [Sleep apnea, unspecified]10-17-2023 ChronicResidual codes; unclassified (8 sources)Sleep apnea, unspecified; Translations: [Unspecified sleep apnea] Onset: 289745-57-7335GzyabdlNitchlnv codes; unclassified (5 sources)Body mass index 20-24 - normal; Translations: [Body Mass Index between 19-24, adult]EpisodicResidual codes; unclassified (20 sources)Insomnia; Translations: [Insomnia, unspecified]EpisodicResidual codes; unclassified (2 sources)Edema, unspecifiedOnset: 03-22-2022 Resolved: 73-64-8155QfhodibsJzkwdjwualq failure; insufficiency; arrest (adult) (4 sources)Dependence on supplemental oxygen; Translations: [Dependence on supplemental oxygen]33-10-2585PbfesesStgsiixqmek failure; insufficiency; arrest (adult) (20 sources)Acute respiratory failure; Translations: [Acute respiratory failure with hypoxia]93-32-4168GiyuwdjaUdfuhlh detachments; defects; vascular occlusion; and retinopathy (20 sources)Degenerative disorder of macula ; Translations: [Unspecified macular degeneration]11-37-6203LuizzopQketmjegucm; intervertebral disc disorders; other back problems (20 sources)Cervical spondylosis without myelopathy; Translations: [Spondylosis without myelopathy or radiculopathy, cervical region]88-79-6738Tufxjxb Spondylosis; intervertebral disc disorders; other back problems (20 sources)Pain in thoracic spine; Translations: [Sciatica]Onset: 03-22-2022 Resolved: 13-79-6570KkqiulmgKverayluznsv (1 source)Cough, unspecified; Translations: [Cough, unspecified]Onset: 58-18-1373Ngptzeangndj (1 source)Low back pain, unspecified; Translations: [Low back pain, unspecified] Onset: 28-72-7679Gndxxbphiegy (1 source)Supraventricular tachycardia, unspecified ([facility]-HCC); Translations: [Supraventricular tachycardia, unspecified ([facility])]Onset: 08-31-2023 Unclassified (2 sources)PSVTOnset: 05-06-4965Lmqnmkqcmkpl (1 source)Other supraventricular tachycardia; Translations: [Other supraventricular tachycardia]Onset: 20-30-2095Ietzgmvmpghf (1 source)Supraventricular tachycardia, unspecified; Translations: [Supraventricular tachycardia, unspecified]Onset: 02-06-2025 Past or Other Problems Problem ClassificationProblemDateDocumented DateEpisodic/ChronicCardiac dysrhythmias (2 sources)Tachycardia, unspecified; Translations: [Tachycardia, unspecified] Onset: 74-27-7964KedmshqtGhxufwu (1 source)Unspecified mycosisOnset: 11-24-2021 Resolved: 93-61-4508DbryxpwmKmlnz lower respiratory disease (6 sources)Dyspnea; Translations: [Other respiratory abnormalities]Onset: 716697-10-7164WciwyjfgYlyeu lower respiratory disease (1 source)Shortness of breathOnset: 11-24-2021 Resolved: 55-94-2977ZvejpukjIegri lower respiratory disease (7 sources)Pleurodynia; Translations: [Chest pain, unspecified]Onset: 03-22-2022 Resolved: 53-57-2258MfsngfjqScvqw lower respiratory disease (1 source)Other forms of dyspneaOnset: 03-22-2022 Resolved: 02-15-2029UpveobajZvxjp lower respiratory disease (1 source)Hypoxemia; Translations: [HYPOXEMIA]Onset: 06-30-6624ZjnysuccRwoej non-traumatic joint disorders (19 sources)Pain in left hip; Translations: [Pain in joint, pelvic region and thigh]Onset: 214795-89-5944KtokzvzlNfchuspb codes; unclassified (6 sources)Edema; Translations: [Edema]Onset: 290182-98-7330Bgzpgqbr Screening and history of mental health and substance abuse codes (9 sources)Ex-smoker; Translations: [Personal history of tobacco use]Onset: 203180-68-6267ZhaxyycaMgvcdkd on above:Quit Smoking 1999 - smoked 1 PPD; Syncope (6 sources)Syncope; Translations: [Syncope and collapse]Onset: 08-31-2023 33-20-1319QhnvlvpbPlbhnwxxqszd (1 source)Cough R05.9Onset: 11-24-2021 Resolved: 03-63-1025Mthoabtjihqd (1 source)Acute cough R05.1Unclassified (1 source)Onset: 776485-23-6392Foxysgygnbjs (1 source)Supraventricular tachycardia, unspecified (CMS-HCC); Translations: [Supraventricular tachycardia, unspecified (CMS-HCC)]Onset: 02-09-2024 Unclassified (1 source)Other supraventricular tachycardia; Translations: [Other supraventricular tachycardia]Onset: 47-83-6394Adfzvvopkbwq (1 source)Supraventricular tachycardia, unspecified; Translations: [Supraventricular tachycardia, unspecified]Onset: 02-27-2025 Results Test NameValueInterpretationReference RangeFacilityOffice Visiton 06-05-2025 Follow-up [id number] Aleksandr Sanchez 1940 Date Provider Department Center 06/05/2025 ARTEM JIM Family History Family Status - Relation Status Age at Mother Father Level of Service:18900 [place] OFFICE/OUTPATIENT ESTABLISHED LOW MDM 20 MIN Reason for Visit and Comments: Follow-up [360024] - Patient is here today for a routine 3 month follow up. Patient states she feels wore out and don't have an appetite. Patient states if she gets herself worked up she gets chest pain, and off balance. Hypertension [557947] Chest Pain [479805] Hyperlipidemia [182] PSVT [Other]NormalUnOhioHealth [facility] HospitalOffice Visiton 04-08-2025 Follow-up [id number] Aleksandr Sanchez 1940 Date Provider Department Center 04/08/2025 BAUTISTA VALDEZ Family History Family Status - Relation Status Age at Mother Father Level of Service:04347 [place] OFFICE/OUTPATIENT NEW MODERATE MDM 45 MINUTESNormal [facility]36on 45-74-154437RntwbhrSKYE Trinidad MA Please let her know her labs look good, continue current dose of lasix. She is to let us know if she is having any signs of hanging on to extra fluid like increased leg swelling, SOB, weight gain,etc. Thanks! Advised patient of Mariam's findings and recommendations. Patient verbalized understanding and agreed with the plan of care.NormalC[facility]inte Hospital36on 78-23-192499Pnxuqiakg lab results from 03/31/2025: SKYE Tirnidad MA Please let her know her labs look good, continue current dose of lasix. She is to let us know if she is having any signs of hanging on to extra fluid like increased leg swelling, SOB, weight gain,etc. Thanks!NormalCleveland Clinic South Pointe HospitalGlomerular filtration rate (GFR) estimation in non- AmericanOrdered By: Artem Marroquin on 84-18-5247FNU/1.73 sq M.predicted among non-blacks MDRD (S/P/Bld) [Vol rate/Area]mL/min/{1.73_m2}>=60 mL/min/1.73m 2 [facility] HospitalNo Panel InformationOrdered By: Artem Marroquin on 06-63-60279255.0 pg/mL<=1800.0[facility]35.4FMercy Health [facility]29.0 mg/dLHigh7.0-18.0[facility] 10.0 mg/dL8.5-10.1FMercy Health Perrysburg Hospital104 mmol/X07-775EemxzcypqProvidence Hospital37.6 mmol/LHigh21.0-32.0[facility] 0.82 mg/dL0.55-1.02[facility]>60>=60 mL/min/1.73m 2 [facility]84 mg/wS22-442PijanzgttProvidence Hospital 3.9 mmol/L3.5-5.1FMercy Health Perrysburg Hospital143 mmol/R081-122AtbmfrqklSouthern Ohio Medical Centererum or plasma anion gap determinationOrdered By: Artem Marroquin on 32-29-9613Psczm gap [Moles/Vol]5.3 mmol/LFMercy Health Perrysburg Hospital37on *Increase torsemide to 20mg daily x1 week then reduce to alternating days of 10mg and 20mg daily. *Have follow-up labs 03/31/2025 *We will increase metoprolol to try to help with your fluctuating heart rate, will increase this to 50mg twice dailyNormalUniversCincinnati VA Medical Center Office Visiton 32-01-6794Fsorko-up [id number] Aleksandr Sanchez 1940 F Date Provider Department Center 03/20/2025 Rosemarie-ARTEM MARROQUIN HIEN [facility] Family History Family Status - Relation Status Age at Mother Father Level of Service:28088 [place] OFFICE/OUTPATIENT ESTABLISHED MOD MDM 30 MIN Reason for Visit and Comments: Congestive Heart Failure [127] Pulmonary Hypertension [818]NormalUnOhioHealth Shelby HospitalOrders Only on 35-13-5272Arqmff [id number] Aleksandr Sanchez 1940 Date Provider Department Center 03/18/2025 [id number], HISTORICAL CARD [facility] Family History Family Status - Relation Status Age at Mother Father DeceasedNormalUniversCincinnati VA Medical CenterBasophils Auto (Bld) [#/Vol]Ordered By: Iam Jiménez on 31-26-6804Tsqmmvygx (Bld) [#/Vol]0.1 10 3/uL 0.0-0.1FMercy Health Perrysburg HospitalBasophils/100 WBC Auto (Bld)Ordered By: Iam Jiménez on 97-36-6022Ubxooqxme/100 WBC (Bld)0.5 %0.2-2.0[facility] HospitalEosinophils/100 WBC Auto (Bld)Ordered By: Srinivasaab Tino on 56-40-3276Kmvmowudhtm/100 WBC (Bld)0.5 %Low0.9-7.0[facility] HospitalErythrocyte distribution width Auto (RBC) [Ratio]Ordered By: Iam Jiménez on 56-10-2462Ugvotutolfy distribution width (RBC) [Ratio]16.2 %High11.0-15.0 [facility] HospitalEstimated glomerular filtration rate (GFR) non- AmericanOrdered By: Iam Jiménez on 55-78-3741EUY/1.73 sq M.predicted among non-blacks MDRD (S/P/Bld) [Vol rate/Area]mL/min/{1.73_m2}>=60 mL/min/1.73m 2FMercy Health Perrysburg HospitalGlobulin Calc (S) [Mass/Vol]Ordered By: Iam Jiménez on 74-72-7394Dnqmdgah (S) [Mass/Vol]3.8 g/dLProvidence HospitalHematocrit Auto (Bld) [Volume fraction]Ordered By: Iam Jiménez on 71-21-6307Soqtcvbkuk (Bld) [Volume fraction]38.5 %36.0-48.0[facility] HospitalHemoglobin [Mass/volume] in BloodOrdered By: Iam Jiménez on 54-77-5382Hnuxqxgbkp (Bld) [Mass/Vol]12.4 g/dL12.0-16.0[facility] HospitalLeukocytes [#/volume] corrected for nucleated erythrocytes in Blood by Automated counOrdered By: Iam Jiménez on 66-29-9148LDQ corrected for nucl RBC Auto (Bld) [#/Vol]11.5 10 3/uLHigh4.0-11.0[facility] HospitalLymphocytes Auto (Bld) [#/Vol]Ordered By: Iam Jiménez on 02-27-2025 Lymphocytes (Bld) [#/Vol]2.6 10 3/uL1.2-3.8[facility] Lymphocytes/100 WBC Auto (Bld)Ordered By: Iam Jiménez on 02-27-2025 Lymphocytes/100 WBC (Bld)22.6 %20.5-60.0[facility] Auto (RBC) [Entitic mass]Ordered By: Iam Jiménez on 56-89-2523GGQ (RBC) [Entitic mass]31.4 pg26.7-34.0[facility] HospitalMC Auto (RBC) [Mass/Vol]Ordered By: Iam Jiménez on 92-62-1884UTAL (RBC) [Mass/Vol]32.2 g/dL 29.9-35.2FMercy Health Perrysburg HospitalMCV Auto (RBC) [Entitic vol]Ordered By: Iam Jiménez on 84-94-0398WGC (RBC) [Entitic vol]97.5 fL81.0-99.0[facility] HospitalMonocytes Auto (Bld) [#/Vol]Ordered By: Iam Jiménez on 14-09-1130Oztidpnde (Bld) [#/Vol]0.9 10 3/uLHigh0.3-0.8[facility] HospitalMonocytes/100 WBC Auto (Bld)Ordered By: Iam Jiménez on 36-51-4736Dpuzxhhxi/100 WBC (Bld)8.0 %1.7-12.0[facility] Neutrophils Auto (Bld) [#/Vol]Ordered By: Iam Jiménez on 15-20-5812Kzogyephcpg (Bld) [#/Vol]7.8 10 3/uLHigh1.4-6.5FMercy Health Perrysburg Hospital Neutrophils/100 WBC Auto (Bld)Ordered By: Iam Jiménez on 02-27-2025 Neutrophils/100 WBC (Bld)68.2 %43.0-75.0[facility] HospitalNo Panel InformationOrdered By: Iam Jiménez on 53.2 g/dLLow3.4-5.0 [facility]0.1 10 3/uL0.0-0.7FMercy Health Perrysburg Hospital74 U/Q74-732XxypagvxpProvidence Hospital23 U/X24-94RrahczpvvProvidence Hospital22 U/J21-28ZboatepplProvidence Hospital32.5FMercy Health Perrysburg Hospital0.02 10 3/uL0.00-0.03[facility] 25.0 mg/dLHigh7.0-18.0[facility]0.2 %0.0-0.5FMercy Health Perrysburg Hospital10.0 mg/dL8.5-10.1FMercy Health Perrysburg Hospital107 mmol/J07-610ZojbfllgyProvidence Hospital34.3 mmol/LHigh21.0-32.0[facility]0.77 mg/dL0.55-1.02[facility]>60 >=60 mL/min/1.73m 2FMercy Health Perrysburg Hospital81 mg/mH44-043GcwpbosevProvidence Hospital3.7 mmol/L3.5-5.1FMercy Health Perrysburg Hospital148 mmol/QEgmz910-441QgjagzchtProvidence Hospital0.3 mg/dL0.2-1.0[facility]7.0 g/dL6.4-8.2FMercy Health Perrysburg HospitalOffice Visiton 26-65-3541Bidxng-up [id number] Aleksandr Sanchez 1940 F Date Provider Department Center 02/27/2025 271-IAM JIMÉNEZ Family History Family Status - Relation Status Age at Mother Father Level of Service:13155 [place] OFFICE/OUTPATIENT ESTABLISHED MOD MDM 30 [facility] HospitalOrders Onlyon 03-96-5602Hooaxv [id number] Aleksandr Sanchez 1940 F Date Provider Department Center 02/27/2025 [id number], HISTORICAL HIEN [facility] Family History Family Status - Relation Status Age at Mother Father DeceasedNormalUniversCincinnati VA Medical CenterPlatelet mean volume Auto (Bld) [Entitic vol]Ordered By: Iam Jiménez on 92-79-0127Mvcsjcum mean volume (Bld) [Entitic vol]9.8 fL9.5-13.5FMercy Health Perrysburg Hospital Platelets Auto (Bld) [#/Vol]Ordered By: Iam Jiménez on 57-24-4739Vsrjebcfr (Bld) [#/Vol]389 10 3/oN130-389LokmwfnwaProvidence HospitalRBC Auto (Bld) [#/Vol]Ordered By: Iam Jiménez on 49-76-0583PYQ (Bld) [#/Vol]3.95 10 6/uLLow 4.20-5.40[facility] Centererum or plasma albumin/globulin mass ratioOrdered By: Iam Jiménez on 18-79-2744Vguouty/Globulin [Mass ratio]0.8 {ratio}[facility] Centererum or plasma anion gap determination Ordered By: Iam Jiménez on 27-17-3630Brjjx gap [Moles/Vol]10.4 mmol/LFMercy Health Perrysburg HospitalBasophils Auto (Bld) [#/Vol]Ordered By: Sheldon Xie on 54-20-2067Ixicyarqm (Bld) [#/Vol]0.1 10 3/uL0.0-0.1FMercy Health Perrysburg HospitalBasophils/100 WBC Auto (Bld)Ordered By: Sheldon Xie on 02-13-2025 Basophils/100 WBC (Bld)0.5 %0.2-2.0[facility] HospitalCholesterol in LDL Calc [Mass/Vol]Ordered By: Sheldon Xie on 69-50-4732Reyqrqjhkfo in LDL [Mass/Vol]91.0 mg/dLProvidence HospitalCholesterol in VLDL Calc [Mass/Vol]Ordered By: Sheldon Xie on 20-05-9281Iyfidtusysn in VLDL [Mass/Vol]23.6 mg/dLProvidence HospitalEosinophils/100 WBC Auto (Bld)Ordered By: Sheldon Xie on 66-05-6231Ibajoqvbcgy/100 WBC (Bld)2.5 %0.9-7.0[facility] HospitalErythrocyte distribution width Auto (RBC) [Ratio]Ordered By: Sheldon Xie on 46-88-4728Byfqiwywtnr distribution width (RBC) [Ratio]15.3 %High 11.0-15.0[facility] HospitalEstimated glomerular filtration rate (GFR) non- AmericanOrdered By: Sheldon Xie on 07-09-4464XRP/1.73 sq M.predicted among non-blacks MDRD (S/P/Bld) [Vol rate/Area]mL/min/{1.73_m2}>=60 mL/min/1.73m 2FMercy Health Perrysburg HospitalGlobulin Calc (S) [Mass/Vol] Ordered By: Sheldon Xie on 81-47-4306Tmpmkuiy (S) [Mass/Vol]3.7 g/dLProvidence HospitalHematocrit Auto (Bld) [Volume fraction]Ordered By: Sheldon Xie on 20-69-1745Jhsqslrcnn (Bld) [Volume fraction]37.2 %36.0-48.0[facility] HospitalHemoglobin [Mass/volume] in BloodOrdered By: Sheldon Xie on 68-08-8921Xpqrlfmvwj (Bld) [Mass/Vol]12.2 g/dL12.0-16.0[facility] HospitalLeukocytes [#/volume] corrected for nucleated erythrocytes in Blood by Automated counOrdered By: Sheldon Xie on 03-01-5075XDD corrected for nucl RBC Auto (Bld) [#/Vol]11.4 10 3/uLHigh4.0-11.0[facility] HospitalLymphocytes Auto (Bld) [#/Vol]Ordered By: Sheldon Xie on 02-13-2025 Lymphocytes (Bld) [#/Vol]2.0 10 3/uL1.2-3.8[facility] Lymphocytes/100 WBC Auto (Bld)Ordered By: Sheldon Xie on 02-13-2025 Lymphocytes/100 WBC (Bld)17.2 %Low20.5-60.0[facility] Auto (RBC) [Entitic mass]Ordered By: Sheldon Xie on 31-33-2111[place] (RBC) [Entitic mass]31.3 pg26.7-34.0[facility] HospitalMCHC Auto (RBC) [Mass/Vol] Ordered By: Sheldon Xie on 75-21-0081RPOY (RBC) [Mass/Vol]32.8 g/dL29.9-35.2 [facility] HospitalMCV Auto (RBC) [Entitic vol]Ordered By: Sheldon Xie on 15-69-9273QQA (RBC) [Entitic vol]95.4 fL81.0-99.0[facility] HospitalMonocytes Auto (Bld) [#/Vol]Ordered By: Sheldon Xie on 02-13-2025 Monocytes (Bld) [#/Vol]0.8 10 3/uL0.3-0.8[facility] Monocytes/100 WBC Auto (Bld)Ordered By: Sheldon Xie on 85-56-4241Gfzqgzrfi/100 WBC (Bld)6.7 %1.7-12.0[facility] HospitalNeutrophils Auto (Bld) [#/Vol]Ordered By: Sheldon Xie on 05-79-7668Gssvbdkbazs (Bld) [#/Vol]8.3 10 3/uL High1.4-6.5FMercy Health Perrysburg HospitalNeutrophils/100 WBC Auto (Bld) Ordered By: Sheldon Xie on 40-85-9758Rqiamexftys/100 WBC (Bld)72.7 %43.0-75.0 [facility]No Panel InformationOrdered By: Sheldon Xie on .400 u[iU]/mL0.358-3.740[facility]181 mg/dL <=200[facility]67 mg/vTTbzt02-73IcuaoidpeProvidence Hospital2.8 g/dLLow3.4-5.0[facility]0.3 10 3/uL 0.0-0.7FMercy Health [facility] Hospital67 U/N12-964QigznpmycProvidence Hospital118 mg/dL<=150[facility]33 U/I60-34FtjgiwsldProvidence Hospital26 U/Y37-56SabyisbhcProvidence Hospital36.0[facility]0.04 10 3/uLHigh0.00-0.03[facility]32.0 mg/dLHigh7.0-18.0[facility]0.4 %0.0-0.5 [facility]9.4 mg/dL8.5-10.1FMercy Health Perrysburg Hospital103 mmol/B97-360GigsbokycProvidence Hospital35.3 mmol/LHigh21.0-32.0 [facility]0.89 mg/dL0.55-1.02[facility]>60>=60 mL/min/1.73m 2FMercy Health Perrysburg Hospital80 mg/sI92-936 [facility]3.8 mmol/L3.5-5.1FMercy Health Perrysburg Hospital143 mmol/A353-608RvbqywawlProvidence Hospital0.4 mg/dL0.2-1.0 [facility]6.5 g/dL6.4-8.2FMercy Health Perrysburg HospitalPlatelet mean volume Auto (Bld) [Entitic vol]Ordered By: Sheldon Xie on 77-35-1437Fhddpxhc mean volume (Bld) [Entitic vol]9.7 fL9.5-13.5FMercy Health Perrysburg HospitalPlatelets Auto (Bld) [#/Vol]Ordered By: Sheldon Xie on 35-56-5711Xugmomcaz (Bld) [#/Vol]305 10 3/pQ714-225ChdcxypyfProvidence HospitalRBC Auto (Bld) [#/Vol]Ordered By: Sheldon Xie on 53-77-4175ZUO (Bld) [#/Vol]3.90 10 6/uLLow4.20-5.40[facility] Centererum or plasma albumin/globulin mass ratioOrdered By: Sheldon Xie on 36-93-8725Ygxnuqx/Globulin [Mass ratio]0.8 {ratio}[facility] Centererum or plasma anion gap determinationOrdered By: Sheldon Xie on 17-51-6140Wzejl gap [Moles/Vol]8.5 mmol/LFKettering Health Prebleerum or plasma total cholesterol/high density lipoprotein (HDL) cholesterol mass ratOrdered By: Sheldon Xie on 31-20-6047Dhnkrusogkk.total/Cholesterol in HDL [Mass ratio]2.7 {ratio}[facility] HospitalOffice Visiton 69-76-3073Ybhcjv-up [id number] Aleksandr Sanchez 1940 F Date Provider Department Center 02/06/2025 ARTEM JIM Family History Family Status - Relation Status Age at Mother Father Level of Service:26678 [place] OFFICE/OUTPATIENT ESTABLISHED LOW MDM 20 MIN Reason for Visit and Comments: Hospital Follow-up [832][facility] CenterAbstracton [id number] Aleksandr Sanchez Angel 1940 F Date Provider Department Center 01/31/2025 SHELDON ONTIVEROSue Hos No family history on fileNormalUniversity Clinton Memorial HospitalBasophils Auto (Bld) [#/Vol]on 1941Ssxtggvuq (Bld) [#/Vol]0.0 10 3/uL0.0-0.1FMercy Health Perrysburg HospitalBasophils/100 WBC Auto (Bld)on 02-11-0344Dnqhlrhrg/100 WBC (Bld)0.1 %Low0.2-2.0[facility] HospitalEosinophils/100 WBC Auto (Bld)on 00-42-5755Qakfoljwufj/100 WBC (Bld)0.6 %Low0.9-7.0[facility] HospitalErythrocyte distribution width Auto (RBC) [Ratio]on 09-95-9527Uvoxuaooada distribution width (RBC) [Ratio]13.5 %11.0-15.0[facility] HospitalEstimated glomerular filtration rate (GFR) non- Americanon 24-73-8044QGZ/1.73 sq M.predicted among non-blacks MDRD (S/P/Bld) [Vol rate/Area]55 mL/min/{1.73_m2}Low>=60 mL/min/1.73m 2FMercy Health Perrysburg HospitalHematocrit Auto (Bld) [Volume fraction]on 10-80-1111Gptcmxpssn (Bld) [Volume fraction]36.8 %36.0-48.0[facility] Hemoglobin [Mass/volume] in Bloodon 13-55-1447Eindextuqc (Bld) [Mass/Vol]12.4 g/dL12.0-16.0[facility] HospitalLeukocytes [#/volume] corrected for nucleated erythrocytes in Blood by Automated counon 54-11-0492ATP corrected for nucl RBC Auto (Bld) [#/Vol]16.3 10 3/uLHigh4.0-11.0[facility] HospitalLymphocytes Auto (Bld) [#/Vol]on 53-74-2575Frxjajgbjxa (Bld) [#/Vol]2.7 10 3/uL1.2-3.8[facility] HospitalLymphocytes/100 WBC Auto (Bld)on 06-89-6643Wfcpfuihnfr/100 WBC (Bld)16.5 %Low20.5-60.0[facility] HospitalH Auto (RBC) [Entitic mass]on 25-31-3085YOX (RBC) [Entitic mass]30.8 pg26.7-34.0[facility] HospitalMCHC Auto (RBC) [Mass/Vol]on 24-67-1629KBDM (RBC) [Mass/Vol]33.7 g/dL29.9-35.2FMercy Health Perrysburg HospitalMCV Auto (RBC) [Entitic vol]on 94-69-8000REA (RBC) [Entitic vol] 91.3 fL81.0-99.0[facility] HospitalMonocytes Auto (Bld) [#/Vol]on 56-59-9238Yfqoztlno (Bld) [#/Vol]1.1 10 3/uLHigh0.3-0.8[facility] HospitalMonocytes/100 WBC Auto (Bld)on 02-04-4085Zlpwizyxe/100 WBC (Bld) 6.7 %1.7-12.0[facility] HospitalNeutrophils Auto (Bld) [#/Vol]on 28-90-9722Fzkgmixiwkj (Bld) [#/Vol]12.3 10 3/uLHigh1.4-6.5FMercy Health Perrysburg HospitalNeutrophils/100 WBC Auto (Bld)on 84-66-2705Vpknyhuiuas/100 WBC (Bld)75.2 %High43.0-75.0[facility] HospitalNo Panel Informationon 51.4 ng/mL0.9-2.0[facility]1601.0 pg/mL<=1800.0 [facility]128.4 pg/mLCritically high4.0-51.3FMercy Health Perry[facility] Hospital49.5FMercy Health Perry[facility] Hospital48.0 mg/dLHigh 7.0-18.0[facility]0.1 10 3/uL0.0-0.7FMercy Health Perry[facility] Hospital9.5 mg/dL8.5-10.1FMercy Health Perrysburg Hospital100 mmol/L98-107 [facility]37.1 mmol/LHigh21.0-32.0[facility]0.97 mg/dL0.55-1.02[facility]0.14 10 3/uL High0.00-0.03[facility]>60>=60 mL/min/1.73m 2FMercy Health Perrysburg Hospital0.9 %High0.0-0.5FMercy Health Perrysburg Hospital89 mg/dL 74-106[facility]3.9 mmol/L3.5-5.1FMercy Health Perrysburg Hospital141 mmol/B504-187YvxecjquqProvidence HospitalPlatelet mean volume Auto (Bld) [Entitic vol]on 00-74-1184Zeqrkaci mean volume (Bld) [Entitic vol]9.6 fL9.5-13.5FMercy Health Perrysburg HospitalPlatelets Auto (Bld) [#/Vol] on 04-48-7638Lcvetaxnd (Bld) [#/Vol]438 10 3/lU740-796OhrzesszfProvidence HospitalRBC Auto (Bld) [#/Vol]on 93-61-4598FHJ (Bld) [#/Vol]4.03 10 6/uLLow 4.20-5.40[facility] Centererum or plasma anion gap determinationon 24-82-0713Pzpik gap [Moles/Vol]7.8 mmol/LFMercy Health Perrysburg HospitalBasophils Auto (Bld) [#/Vol]on 65-89-3875Ikpttvvgz (Bld) [#/Vol] 0.0 10 3/uL0.0-0.1FMercy Health Perrysburg HospitalBasophils/100 WBC Auto (Bld) on 02-69-5931Qslfuhipe/100 WBC (Bld)0.2 %0.2-2.0[facility] HospitalEosinophils/100 WBC Auto (Bld)on 25-32-9586Jmgfttotysc/100 WBC (Bld)1.2 % 0.9-7.0[facility] HospitalErythrocyte distribution width Auto (RBC) [Ratio]on 69-49-7656Yksemneaqza distribution width (RBC) [Ratio]13.7 % 11.0-15.0[facility] HospitalEstimated glomerular filtration rate (GFR) non- Americanon 23-11-4508DXH/1.73 sq M.predicted among non-blacks MDRD (S/P/Bld) [Vol rate/Area]mL/min/{1.73_m2}>=60 mL/min/1.73m 2FMercy Health Perrysburg HospitalGlobulin Calc (S) [Mass/Vol]on 79-86-9753Dbvekhqx (S) [Mass/Vol]3.9 g/dLProvidence HospitalHematocrit Auto (Bld) [Volume fraction]on 00-28-7895Cocuhxswqu (Bld) [Volume fraction]37.1 %36.0-48.0 [facility] HospitalHemoglobin [Mass/volume] in Bloodon 01-30-2025 Hemoglobin (Bld) [Mass/Vol]12.8 g/dL12.0-16.0[facility] Leukocytes [#/volume] corrected for nucleated erythrocytes in Blood by Automated counon 42-77-2732PEI corrected for nucl RBC Auto (Bld) [#/Vol]16.1 10 3/uLHigh 4.0-11.0[facility] HospitalLymphocytes Auto (Bld) [#/Vol]on 64-59-3515Yijuwhlcrra (Bld) [#/Vol]3.1 10 3/uL1.2-3.8[facility] HospitalLymphocytes/100 WBC Auto (Bld)on 69-47-5516Jvuwhlhksfh/100 WBC (Bld)19.2 % Low20.5-60.0[facility] HospitalMCH Auto (RBC) [Entitic mass]on 21-87-0352PDJ (RBC) [Entitic mass]31.8 pg26.7-34.0[facility] HospitalMCHC Auto (RBC) [Mass/Vol]on 65-12-7562RULY (RBC) [Mass/Vol]34.5 g/dL 29.9-35.2FMercy Health Perrysburg HospitalMCV Auto (RBC) [Entitic vol]on 56-43-8079EIU (RBC) [Entitic vol]92.1 fL81.0-99.0[facility] HospitalMonocytes Auto (Bld) [#/Vol]on 97-08-5746Zuxximlxh (Bld) [#/Vol]1.1 10 3/uLHigh0.3-0.8[facility] HospitalMonocytes/100 WBC Auto (Bld)on 87-93-1646Ssefmrtrl/100 WBC (Bld)6.9 %1.7-12.0[facility] Neutrophils Auto (Bld) [#/Vol]on 78-54-5341Hflcuddtzaj (Bld) [#/Vol]11.6 10 3/uL High1.4-6.5FMercy Health Perrysburg HospitalNeutrophils/100 WBC Auto (Bld)on 16-35-8131Tzhtjkeipbw/100 WBC (Bld)71.7 %43.0-75.0[facility] HospitalNo Panel Informationon 77-65-11095323.0 pg/mLCritically high<=1800.0 [facility]280.1 pg/mLCritically high4.0-51.3FMercy Health Perrysburg Hospital1.3 ng/mL0.9-2.0[facility]2.4 g/dL Low3.4-5.0[facility]0.2 10 3/uL0.0-0.7FMercy Health Perrysburg Hospital64 U/J49-504JgfhywkljProvidence Hospital39 U/U15-57XtsmmohhiProvidence Hospital23 U/B92-11RxxaapaluProvidence Hospital45.8[facility]0.13 10 3/uLHigh0.00-0.03[facility]38.0 mg/dLHigh7.0-18.0[facility]0.8 %High0.0-0.5 [facility]9.3 mg/dL8.5-10.1FMercy Health Perrysburg Hospital101 mmol/K71-129ZkgjlhbgaProvidence Hospital35.4 mmol/LHigh21.0-32.0 [facility]0.83 mg/dL0.55-1.02[facility]>60>=60 mL/min/1.73m 2FMercy Health Perrysburg Hospital90 mg/jK97-215 [facility]3.7 mmol/L3.5-5.1FMercy Health Perrysburg Hospital144 mmol/U369-607NbznkzinjProvidence Hospital0.5 mg/dL0.2-1.0 [facility]6.3 g/dLLow6.4-8.2FMercy Health Perrysburg HospitalPlatelet mean volume Auto (Bld) [Entitic vol]on 82-85-0256Hurhqwbf mean volume (Bld) [Entitic vol]10.1 fL9.5-13.5FMercy Health Perrysburg Hospital Platelets Auto (Bld) [#/Vol]on 02-69-8525Qbkojeyar (Bld) [#/Vol]408 10 3/uL 150-450Prov[facility] HospitalRBC Auto (Bld) [#/Vol]on 86-49-1691ACB (Bld) [#/Vol]4.03 10 6/uLLow4.20-5.40[facility] Centererum or plasma albumin/globulin mass ratioon 56-65-2485Xsvorga/Globulin [Mass ratio]0.6 {ratio}[facility] Centererum or plasma anion gap determination on 33-09-6130Iaqup gap [Moles/Vol]11.3 mmol/LFMercy Health Perrysburg Hospital Basophils Auto (Bld) [#/Vol]on 41-01-4676Phtmdmqvf (Bld) [#/Vol]0.0 10 3/uL 0.0-0.1FMercy Health Perrysburg HospitalBasophils/100 WBC Auto (Bld)on 55-86-0235Vmdoatuyg/100 WBC (Bld)0.1 %Low0.2-2.0[facility] HospitalEosinophils/100 WBC Auto (Bld)on 07-49-3502Wocqpgmjxpu/100 WBC (Bld)1.7 % 0.9-7.0[facility] HospitalErythrocyte distribution width Auto (RBC) [Ratio]on 63-02-9509Xozxvekdmdl distribution width (RBC) [Ratio]13.7 % 11.0-15.0[facility] HospitalEstimated glomerular filtration rate (GFR) non- Americanon 73-58-1861QNG/1.73 sq M.predicted among non-blacks MDRD (S/P/Bld) [Vol rate/Area]mL/min/{1.73_m2}>=60 mL/min/1.73m 2FMercy Health Perrysburg HospitalGlobulin Calc (S) [Mass/Vol]on 58-59-4986Mianfzay (S) [Mass/Vol]3.7 g/dLProvidence HospitalHematocrit Auto (Bld) [Volume fraction]on 69-34-8967Wbcrvafnia (Bld) [Volume fraction]37.8 %36.0-48.0 [facility] HospitalHemoglobin [Mass/volume] in Bloodon 01-29-2025 Hemoglobin (Bld) [Mass/Vol]12.5 g/dL12.0-16.0[facility] Leukocytes [#/volume] corrected for nucleated erythrocytes in Blood by Automated counon 41-57-6023GHF corrected for nucl RBC Auto (Bld) [#/Vol]12.0 10 3/uLHigh 4.0-11.0[facility] HospitalLymphocytes Auto (Bld) [#/Vol]on 62-03-7107Ysptbivvduy (Bld) [#/Vol]2.5 10 3/uL1.2-3.8[facility] HospitalLymphocytes/100 WBC Auto (Bld)on 17-18-5670Tetwasokkvo/100 WBC (Bld)20.6 % 20.5-60.0[facility] HospitalH Auto (RBC) [Entitic mass]on 50-93-3581WHS (RBC) [Entitic mass]30.9 pg26.7-34.0[facility] HospitalMCHC Auto (RBC) [Mass/Vol]on 41-88-7839WAVB (RBC) [Mass/Vol]33.1 g/dL 29.9-35.2FMercy Health Perrysburg HospitalMCV Auto (RBC) [Entitic vol]on 63-14-1743EXZ (RBC) [Entitic vol]93.3 fL81.0-99.0[facility] HospitalMonocytes Auto (Bld) [#/Vol]on 75-28-4234Txfbeuuxm (Bld) [#/Vol]1.1 10 3/uLHigh0.3-0.8[facility] HospitalMonocytes/100 WBC Auto (Bld)on 11-65-9383Npjamgpyt/100 WBC (Bld)9.2 %1.7-12.0[facility] Neutrophils Auto (Bld) [#/Vol]on 10-62-9734Lyhnpjrorxu (Bld) [#/Vol]8.1 10 3/uL High1.4-6.5FMercy Health Perrysburg HospitalNeutrophils/100 WBC Auto (Bld)on 11-69-4102Bdhaptayjrn/100 WBC (Bld)67.2 %43.0-75.0[facility] HospitalNo Panel Informationon 81-40-7693207.6 pg/mLCritically high4.0-51.3 [facility]4576.0 pg/mLCritically high<=1800.0[facility]2.3 g/dLLow3.4-5.0[facility]0.2 10 3/uL0.0-0.7FMercy Health Perry[facility] Hospital67 U/H81-223QzkbvdqnjProvidence Hospital34 U/Z19-35VpgedtabxProvidence Hospital19 U/B99-01IrlnzjghgProvidence Hospital48.6FMercy Health [facility] Hospital0.14 10 3/uLHigh 0.00-0.03[facility]35.0 mg/dLHigh7.0-18.0[facility]1.2 %High0.0-0.5FMercy Health Perry[facility] Hospital9.3 mg/dL8.5-10.1FMercy Health Perry[facility] Hospital103 mmol/F72-423OqjlcfvbbProvidence Hospital37.0 mmol/LHigh21.0-32.0[facility]0.72 mg/dL0.55-1.02[facility]>60>=60 mL/min/1.73m 2FMercy Health Perrysburg Hospital88 mg/xA86-667BcpalbvknProvidence Hospital3.6 mmol/L 3.5-5.1FMercy Health Perrysburg Hospital145 mmol/Y009-128QvekylwhtProvidence Hospital0.5 mg/dL0.2-1.0[facility]6.0 g/dLLow 6.4-8.2FMercy Health Perrysburg HospitalPlatelet mean volume Auto (Bld) [Entitic vol]on 91-57-2781Xdrlvixd mean volume (Bld) [Entitic vol]10.0 fL9.5-13.5 [facility] HospitalPlatelets Auto (Bld) [#/Vol]on 01-29-2025 Platelets (Bld) [#/Vol]348 10 3/pM992-989PyzufycceProvidence HospitalRBC Auto (Bld) [#/Vol]on 54-07-2636PRX (Bld) [#/Vol]4.05 10 6/uLLow4.20-5.40 [facility] Centererum or plasma albumin/globulin mass ratioon 13-08-5691Hewblic/Globulin [Mass ratio]0.6 {ratio}[facility] Centererum or plasma anion gap determinationon 99-52-2022Egouu gap [Moles/Vol] 8.6 mmol/LFMercy Health Perrysburg HospitalBasophils Auto (Bld) [#/Vol]on 60-43-9189Fpkcopxlu (Bld) [#/Vol]0.0 10 3/uL0.0-0.1FMercy Health Perrysburg HospitalBasophils/100 WBC Auto (Bld)on 49-91-4063Rxmqupprx/100 WBC (Bld)0.2 % 0.2-2.0[facility] HospitalEosinophils/100 WBC Auto (Bld)on 69-33-2427Zwqitlygpsc/100 WBC (Bld)0.5 %Low0.9-7.0[facility] HospitalErythrocyte distribution width Auto (RBC) [Ratio]on 43-95-3711Jxdnftbuaue distribution width (RBC) [Ratio]13.7 %11.0-15.0[facility] Estimated glomerular filtration rate (GFR) non- Americanon 01-28-2025 GFR/1.73 sq M.predicted among non-blacks MDRD (S/P/Bld) [Vol rate/Area] mL/min/{1.73_m2}>=60 mL/min/1.[address]m [address] [place], [place] [address]Globulin Calc (S) [Mass/Vol]on 34-40-9324Gkzsaftb (S) [Mass/Vol]3.7 g/dLProvidence HospitalHematocrit Auto (Bld) [Volume fraction]on 01-28-2025 Hematocrit (Bld) [Volume fraction]38.9 %36.0-48.0[facility] HospitalHemoglobin [Mass/volume] in Bloodon 26-70-3024Ncnrqjgfxu (Bld) [Mass/Vol] 12.8 g/dL12.0-16.0[facility] HospitalLeukocytes [#/volume] corrected for nucleated erythrocytes in Blood by Automated counon 12-36-7406CLR corrected for nucl RBC Auto (Bld) [#/Vol]12.2 10 3/uLHigh4.0-11.0[facility] HospitalLymphocytes Auto (Bld) [#/Vol]on 18-33-4674Kvykgnaahac (Bld) [#/Vol]1.9 10 3/uL1.2-3.8[facility] HospitalLymphocytes/100 WBC Auto (Bld)on 45-89-3074Skjbzopjojm/100 WBC (Bld)15.8 %Low20.5-60.0[facility] HospitalH Auto (RBC) [Entitic mass]on 46-20-3408TPV (RBC) [Entitic mass]30.9 pg26.7-34.0[facility] HospitalMCHC Auto (RBC) [Mass/Vol]on 88-44-1958LNPN (RBC) [Mass/Vol]32.9 g/dL29.9-35.2FMercy Health Perrysburg HospitalMCV Auto (RBC) [Entitic vol]on 35-06-0183TIW (RBC) [Entitic vol] 94.0 fL81.0-99.0[facility] HospitalMonocytes Auto (Bld) [#/Vol]on 01-35-3161Iigtunlcz (Bld) [#/Vol]1.3 10 3/uLHigh0.3-0.8[facility] HospitalMonocytes/100 WBC Auto (Bld)on 96-60-6519Bmlxtpxuf/100 WBC (Bld) 10.8 %1.7-12.0[facility] HospitalNeutrophils Auto (Bld) [#/Vol]on 62-42-2851Gdlctwdkkxn (Bld) [#/Vol]8.7 10 3/uLHigh1.4-6.5FMercy Health Perrysburg HospitalNeutrophils/100 WBC Auto (Bld)on 82-20-0628Klnkiqlfpiy/100 WBC (Bld)71.8 %43.0-75.0[facility] HospitalNo Panel Informationon 28-07-33951481.0 pg/mLCritically high<=1800.0[facility] 870.6 pg/mLCritically high4.0-51.3FMercy Health Perry[facility] Hospital2.3 g/dLLow 3.4-5.0[facility]0.1 10 3/uL0.0-0.7FMercy Health [facility] Hospital65 U/B65-480PmottedsgProvidence Hospital42 U/A75-12ElkyabjraProvidence Hospital30 U/E68-30PbahehktkProvidence Hospital45.6FMercy Health [facility] Hospital0.11 10 3/uLHigh0.00-0.03[facility]36.0 mg/dLHigh7.0-18.0[facility]0.9 %High0.0-0.5 [facility]9.1 mg/dL8.5-10.1FMercy Health [facility] Hospital106 mmol/F04-698XeavsilbbProvidence Hospital35.1 mmol/LHigh21.0-32.0 [facility]0.79 mg/dL0.55-1.02[facility]>60>=60 mL/min/1.73m 2FMercy Health Perrysburg Hospital80 mg/sU12-689 [facility]3.8 mmol/L3.5-5.1FMercy Health Perry[facility] Hospital147 mmol/PJwdt602-345GuztudrlwProvidence Hospital0.4 mg/dL0.2-1.0 [facility]6.0 g/dLLow6.4-8.2FMercy Health Perrysburg HospitalPlatelet mean volume Auto (Bld) [Entitic vol]on 49-58-5950Eokytkkz mean volume (Bld) [Entitic vol]10.3 fL9.5-13.5FMercy Health Perrysburg Hospital Platelets Auto (Bld) [#/Vol]on 28-85-2893Etrjkxdpn (Bld) [#/Vol]312 10 3/uL 150-450Providence HospitalRBC Auto (Bld) [#/Vol]on 22-53-4069JBR (Bld) [#/Vol]4.14 10 6/uLLow4.20-5.40[facility] Centererum or plasma albumin/globulin mass ratioon 65-92-4399Hhwgkrn/Globulin [Mass ratio]0.6 {ratio}[facility] Centererum or plasma anion gap determination on 23-48-9137Iiwat gap [Moles/Vol]9.7 mmol/LFMercy Health Perrysburg Hospital Basophils Auto (Bld) [#/Vol]on 43-06-0848Goemdkzbs (Bld) [#/Vol]0.0 10 3/uL 0.0-0.1FMercy Health Perrysburg HospitalBasophils/100 WBC Auto (Bld)on 50-86-6125Ndogqmwgd/100 WBC (Bld)0.1 %Low0.2-2.0[facility] HospitalEosinophils/100 WBC Auto (Bld)on 00-87-5670Wikogmhjrzt/100 WBC (Bld)0.1 % Low0.9-7.0[facility] HospitalErythrocyte distribution width Auto (RBC) [Ratio]on 14-53-4753Zqgifkoscgz distribution width (RBC) [Ratio]14.0 % 11.0-15.0[facility] HospitalEstimated glomerular filtration rate (GFR) non- Americanon 79-29-2800JBT/1.73 sq M.predicted among non-blacks MDRD (S/P/Bld) [Vol rate/Area]52 mL/min/{1.73_m2}Low>=60 mL/min/1.73m 2FMercy Health Perrysburg HospitalGlobulin Calc (S) [Mass/Vol]on 23-97-9372Dplyvyda (S) [Mass/Vol]3.4 g/dLProvidence HospitalHematocrit Auto (Bld) [Volume fraction]on 54-24-8516Shahfcjgwk (Bld) [Volume fraction]34.3 %Low36.0-48.0 [facility] HospitalHemoglobin [Mass/volume] in Bloodon 01-27-2025 Hemoglobin (Bld) [Mass/Vol]11.2 g/dLLow12.0-16.0[facility] HospitalLeukocytes [#/volume] corrected for nucleated erythrocytes in Blood by Automated counon 67-42-1208OHU corrected for nucl RBC Auto (Bld) [#/Vol]14.3 10 3/uLHigh4.0-11.0[facility] HospitalLymphocytes Auto (Bld) [#/Vol] on 40-24-0778Wfxcyraxtjv (Bld) [#/Vol]1.5 10 3/uL1.2-3.8[facility] HospitalLymphocytes/100 WBC Auto (Bld)on 83-87-7216Whpkyfzymdq/100 WBC (Bld)10.4 %Low20.5-60.0[facility] HospitalMCH Auto (RBC) [Entitic mass]on 73-31-3779CWE (RBC) [Entitic mass]31.3 pg26.7-34.0[facility] HospitalMCHC Auto (RBC) [Mass/Vol]on 20-01-7250SNXG (RBC) [Mass/Vol]32.7 g/dL29.9-35.2FMercy Health Perrysburg HospitalMCV Auto (RBC) [Entitic vol]on 33-19-4330CNS (RBC) [Entitic vol]95.8 fL81.0-99.0[facility] HospitalMonocytes Auto (Bld) [#/Vol]on 97-82-2841Jglmehhmn (Bld) [#/Vol]1.4 10 3/uLHigh0.3-0.8[facility] HospitalMonocytes/100 WBC Auto (Bld)on 10-06-2671Ntifuozvp/100 WBC (Bld)10.0 %1.7-12.0[facility] Neutrophils Auto (Bld) [#/Vol]on 95-90-2764Cburfmkepnr (Bld) [#/Vol]11.2 10 3/uL High1.4-6.5FMercy Health Perrysburg HospitalNeutrophils/100 WBC Auto (Bld)on 44-05-8363Aqihevbcaew/100 WBC (Bld)78.9 %High43.0-75.0[facility] HospitalNo Panel Informationon 87-51-41716238.6 pg/mLCritically high4.0-51.3 [facility]12686.0 pg/mLCritically high<=1800.0[facility]2.2 g/dLLow3.4-5.0[facility]0.0 10 3/uL0.0-0.7FMercy Health [facility] Hospital60 U/Y92-596PocesqpzhProvidence Hospital46 U/U53-76NtixdbbkaProvidence Hospital40 U/FKuuw03-03 [facility]46.1FMercy Health [facility] Hospital0.07 10 3/uLHigh0.00-0.03[facility]47.0 mg/dLHigh7.0-18.0 [facility]0.5 %0.0-0.5FMercy [facility] 8.5 mg/dL8.5-10.1FMercy Health Perry[facility] Hospital107 mmol/F75-354GwcagmlsbProvidence Hospital32.2 mmol/LHigh21.0-32.0[facility] 1.02 mg/dL0.55-1.02[facility]>60>=60 mL/min/1.73m 2 [facility]87 mg/iS70-908SgbylofetProvidence Hospital 4.4 mmol/L3.5-5.1FMercy Health Perrysburg Hospital146 mmol/LVcgl315-671DijosppywProvidence Hospital0.3 mg/dL0.2-1.0[facility]5.6 g/dLLow6.4-8.2FMercy Health Perrysburg HospitalPlatelet mean volume Auto (Bld) [Entitic vol]on 96-16-5384Ubgeezhi mean volume (Bld) [Entitic vol]10.4 fL 9.5-13.5FMercy Health Perrysburg HospitalPlatelets Auto (Bld) [#/Vol]on 17-67-0437Cowcjpvwk (Bld) [#/Vol]283 10 3/lH179-243KuxsuinsaProvidence HospitalRBC Auto (Bld) [#/Vol]on 28-47-5317EMF (Bld) [#/Vol]3.58 10 6/uLLow 4.20-5.40[facility] Centererum or plasma albumin/globulin mass ratioon 09-90-3166Olljpvw/Globulin [Mass ratio]0.6 {ratio}[facility] Centererum or plasma anion gap determinationon 51-98-8067Bshoz gap [Moles/Vol]11.2 mmol/LFMercy Health Perrysburg HospitalBasophils Auto (Bld) [#/Vol]on 46-59-7212Muzjxcwio (Bld) [#/Vol]0.0 10 3/uL0.0-0.1FMercy Health Perrysburg HospitalBasophils/100 WBC Auto (Bld)on 83-17-5656Fzhzqnolr/100 WBC (Bld) 0.0 %Low0.2-2.0[facility] HospitalEosinophils/100 WBC Auto (Bld)on 55-36-8213Mirwgyecech/100 WBC (Bld)0.0 %Low0.9-7.0[facility] HospitalErythrocyte distribution width Auto (RBC) [Ratio]on 24-38-3940Acbbjcljgbu distribution width (RBC) [Ratio]14.1 %11.0-15.0[facility] Estimated glomerular filtration rate (GFR) non- Americanon 01-26-2025 GFR/1.73 sq M.predicted among non-blacks MDRD (S/P/Bld) [Vol rate/Area] mL/min/{1.73_m2}>=60 mL/min/1.73m 2FMercy Health Perrysburg HospitalGlobulin Calc (S) [Mass/Vol]on 54-02-1009Rsjruxbh (S) [Mass/Vol]3.6 g/dLProvidence HospitalHematocrit Auto (Bld) [Volume fraction]on 01-26-2025 Hematocrit (Bld) [Volume fraction]34.7 %Low36.0-48.0[facility] HospitalHemoglobin [Mass/volume] in Bloodon 52-06-8029Yjcxbkmzcz (Bld) [Mass/Vol] 11.4 g/dLLow12.0-16.0[facility] HospitalLeukocytes [#/volume] corrected for nucleated erythrocytes in Blood by Automated counon 48-25-6691UPN corrected for nucl RBC Auto (Bld) [#/Vol]10.7 10 3/uL4.0-11.0[facility] HospitalLymphocytes Auto (Bld) [#/Vol]on 79-54-3720Zaclfghkqdy (Bld) [#/Vol]1.2 10 3/uL1.2-3.8[facility] HospitalLymphocytes/100 WBC Auto (Bld)on 18-33-5602Sgdeynfpugh/100 WBC (Bld)11.3 %Low20.5-60.0[facility] HospitalMCH Auto (RBC) [Entitic mass]on 05-66-7715RMB (RBC) [Entitic mass]31.4 pg26.7-34.0[facility] HospitalMCHC Auto (RBC) [Mass/Vol]on 96-24-0074KITH (RBC) [Mass/Vol]32.9 g/dL29.9-35.2FMercy Health Perrysburg HospitalMCV Auto (RBC) [Entitic vol]on 74-38-9188IRG (RBC) [Entitic vol] 95.6 fL81.0-99.0[facility] HospitalMonocytes Auto (Bld) [#/Vol]on 63-99-1023Xjugbtrrv (Bld) [#/Vol]0.7 10 3/uL0.3-0.8[facility] HospitalMonocytes/100 WBC Auto (Bld)on 93-18-0457Qiuwrwdec/100 WBC (Bld)6.3 % 1.7-12.0[facility] HospitalNeutrophils Auto (Bld) [#/Vol]on 13-29-4313Vjgezaojtnl (Bld) [#/Vol]8.7 10 3/uLHigh1.4-6.5FMercy Health Perrysburg HospitalNeutrophils/100 WBC Auto (Bld)on 57-74-4820Ohxpxsaaszq/100 WBC (Bld)81.8 %High43.0-75.0[facility] HospitalNo Panel Informationon 45-10-567431020.0 pg/mLCritically high<=1800.0[facility] 35.5 pg/mL4.0-51.3FMercy Health Perry[facility] Hospital2.3 g/dLLow3.4-5.0[facility]0.0 10 3/uL0.0-0.7FMercy Health [facility] Hospital72 U/L 46-116[facility]44 U/X69-80BjnjujfkoProvidence Hospital28 U/L09-32QobvwqcohProvidence Hospital38.0[facility]0.06 10 3/uLHigh0.00-0.03[facility]30.0 mg/dLHigh 7.0-18.0[facility]0.6 %High0.0-0.5FMercy Health Perry[facility] Hospital8.4 mg/dLLow8.5-10.1FMercy Health [facility] Hospital108 mmol/L Cdwg16-373JqaljdzwbProvidence Hospital31.1 mmol/L21.0-32.0[facility]0.79 mg/dL0.55-1.02[facility]>60 >=60 mL/min/1.73m 2FMercy Health Perrysburg Hospital122 mg/nFHonz92-551HzgcgqrakProvidence Hospital4.0 mmol/L3.5-5.1FMercy Health [facility] Hospital146 mmol/ORtri065-878OpnyweekxProvidence Hospital0.3 mg/dL0.2-1.0[facility]5.9 g/dLLow6.4-8.2FMercy Health [facility] Hospital Platelet mean volume Auto (Bld) [Entitic vol]on 18-53-3342Hfdqedjd mean volume (Bld) [Entitic vol]10.3 fL9.5-13.5FMercy Health [facility] HospitalPlatelets Auto (Bld) [#/Vol]on 47-70-4985Chnsjjzao (Bld) [#/Vol]298 10 3/xK323-481 [facility] HospitalRBC Auto (Bld) [#/Vol]on 78-16-5651SYB (Bld) [#/Vol]3.63 10 6/uLLow4.20-5.40[facility] Centererum or plasma albumin/globulin mass ratioon 28-98-3290Arjgrnc/Globulin [Mass ratio]0.6 {ratio} [facility] Centererum or plasma anion gap determinationon 57-58-0058Bteeh gap [Moles/Vol]10.9 mmol/LFMercy Health [facility] Basophils Auto (Bld) [#/Vol]on 62-10-6627Hysurorzt (Bld) [#/Vol]0.0 10 3/uL 0.0-0.1FMercy Health [facility] HospitalBasophils/100 WBC Auto (Bld)on 33-24-6582Ebpsoddjq/100 WBC (Bld)0.0 %Low0.2-2.0[facility] HospitalEosinophils/100 WBC Auto (Bld)on 91-66-6664Zzexvnvmwqk/100 WBC (Bld)0.0 % Low0.9-7.0[facility] HospitalErythrocyte distribution width Auto (RBC) [Ratio]on 26-07-3997Aunlwgbabkp distribution width (RBC) [Ratio]14.3 % 11.0-15.0[facility] HospitalEstimated glomerular filtration rate (GFR) non- Americanon 03-75-9391ICA/1.73 sq M.predicted among non-blacks MDRD (S/P/Bld) [Vol rate/Area]mL/min/{1.73_m2}>=60 mL/min/1.73m [address] [place], [place] [address]Globulin Calc (S) [Mass/Vol]on 64-83-7783Dyajaidj (S) [Mass/Vol]3.9 g/dLProvidence HospitalHematocrit Auto (Bld) [Volume fraction]on 48-27-9888Xfwzwpeneo (Bld) [Volume fraction]35.4 %Low36.0-48.0 [facility] HospitalHemoglobin [Mass/volume] in Bloodon 01-25-2025 Hemoglobin (Bld) [Mass/Vol]11.4 g/dLLow12.0-16.0[facility] HospitalLeukocytes [#/volume] corrected for nucleated erythrocytes in Blood by Automated counon 21-83-5365UFM corrected for nucl RBC Auto (Bld) [#/Vol]10.3 10 3/uL4.0-11.0[facility] HospitalLymphocytes Auto (Bld) [#/Vol]on 14-45-4454Mempdegzrtc (Bld) [#/Vol]0.9 10 3/uLLow1.2-3.8[facility] HospitalLymphocytes/100 WBC Auto (Bld)on 51-50-6314Bqllrtrscol/100 WBC (Bld)8.5 %Low20.5-60.0[facility] HospitalH Auto (RBC) [Entitic mass]on 99-30-9930LAC (RBC) [Entitic mass]31.1 pg26.7-34.0[facility] HospitalMCHC Auto (RBC) [Mass/Vol]on 56-24-4798UUUQ (RBC) [Mass/Vol]32.2 g/dL29.9-35.2FMercy Health [facility] HospitalMCV Auto (RBC) [Entitic vol]on 61-82-6874NBE (RBC) [Entitic vol]96.7 fL81.0-99.0[facility] HospitalMonocytes Auto (Bld) [#/Vol]on 58-20-0212Sidlnhwym (Bld) [#/Vol]0.3 10 3/uL0.3-0.8[facility] HospitalMonocytes/100 WBC Auto (Bld)on 94-58-8660Wfnwwlofg/100 WBC (Bld)3.0 %1.7-12.0[facility] Neutrophils Auto (Bld) [#/Vol]on 74-27-7539Iywzecjwtca (Bld) [#/Vol]9.1 10 3/uL High1.4-6.5FMercy Health Perrysburg HospitalNeutrophils/100 WBC Auto (Bld)on 31-95-1104Vigyfxsoqgs/100 WBC (Bld)87.8 %High43.0-75.0[facility] HospitalNo Panel Informationon 03-12-136792.7 pg/mLCritically high4.0-51.3 [facility]13284.0 pg/mLCritically high<=1800.0[facility]2.2 g/dLLow3.4-5.0[facility]0.0 10 3/uL0.0-0.7FMercy Health [facility] Hospital73 U/N36-486FdygxzikhProvidence Hospital45 U/D29-23DafwmqxqmProvidence Hospital40 U/NVlpi67-41 [facility]41.5FMercy Health [facility]0.07 10 3/uLHigh0.00-0.03[facility]34.0 mg/dLHigh7.0-18.0 [facility]0.7 %High0.0-0.5FMercy Health [facility]8.6 mg/dL8.5-10.1FMercy Health [facility]110 mmol/PRozn25-147 [facility]27.7 mmol/L21.0-32.0[facility]0.82 mg/dL0.55-1.02[facility]>60>=60 mL/min/1.73m 2 [facility]121 mg/mWWrpv49-791ItribyxrlProvidence Hospital4.3 mmol/L3.5-5.1FMercy Health [facility] Hospital147 mmol/HEwnj864-415 [facility]0.3 mg/dL0.2-1.0[facility]6.1 g/dLLow6.4-8.2FMercy Health [facility] HospitalPlatelet mean volume Auto (Bld) [Entitic vol]on 66-24-8846Uhszfvri mean volume (Bld) [Entitic vol] 10.4 fL9.5-13.5FMercy Health Perrysburg HospitalPlatelets Auto (Bld) [#/Vol]on 34-16-4369Snrkytlfb (Bld) [#/Vol]282 10 3/iI977-706AnaifdykfProvidence HospitalRBC Auto (Bld) [#/Vol]on 71-89-8594HUJ (Bld) [#/Vol]3.66 10 6/uLLow 4.20-5.40[facility] Centererum or plasma albumin/globulin mass ratioon 98-16-2282Ruulcvf/Globulin [Mass ratio]0.6 {ratio}[facility] Centererum or plasma anion gap determinationon 71-79-4370Ajega gap [Moles/Vol]13.6 mmol/LFMercy Health Perrysburg HospitalBasophils Auto (Bld) [#/Vol]on 09-84-9022Kcvoayhpk (Bld) [#/Vol]0.0 10 3/uL0.0-0.1FMercy Health Perrysburg HospitalBasophils/100 WBC Auto (Bld)on 42-97-7125Ucvepnjpr/100 WBC (Bld) 0.1 %Low0.2-2.0[facility] HospitalEosinophils/100 WBC Auto (Bld)on 40-12-4476Xysdbzytwrd/100 WBC (Bld)0.0 %Low0.9-7.0[facility] HospitalErythrocyte distribution width Auto (RBC) [Ratio]on 28-70-7580Wulwetnyfse distribution width (RBC) [Ratio]14.5 %11.0-15.0[facility] Estimated glomerular filtration rate (GFR) non- Americanon 01-24-2025 GFR/1.73 sq M.predicted among non-blacks MDRD (S/P/Bld) [Vol rate/Area]60 mL/min/{1.73_m2}>=60 mL/min/1.73m 2FMercy Health Perrysburg HospitalGlobulin Calc (S) [Mass/Vol]on 71-17-4257Yrcjrdsl (S) [Mass/Vol]4.0 g/dLProvidence HospitalHematocrit Auto (Bld) [Volume fraction]on 01-24-2025 Hematocrit (Bld) [Volume fraction]33.6 %Low36.0-48.0[facility] HospitalHemoglobin [Mass/volume] in Bloodon 92-66-2408Hnboamuknw (Bld) [Mass/Vol] 10.6 g/dLLow12.0-16.0[facility] HospitalLeukocytes [#/volume] corrected for nucleated erythrocytes in Blood by Automated counon 56-98-6554LKF corrected for nucl RBC Auto (Bld) [#/Vol]15.9 10 3/uLHigh4.0-11.0[facility] HospitalLymphocytes Auto (Bld) [#/Vol]on 71-43-6222Dyylvlssjhc (Bld) [#/Vol]0.9 10 3/uLLow1.2-3.8[facility] Lymphocytes/100 WBC Auto (Bld)on 71-40-2154Fsbimevwhxo/100 WBC (Bld)5.4 %Low 20.5-60.0[facility] HospitalMCH Auto (RBC) [Entitic mass]on 92-70-1589QVD (RBC) [Entitic mass]31.0 pg26.7-34.0[facility] HospitalMCHC Auto (RBC) [Mass/Vol]on 76-82-7323EKYG (RBC) [Mass/Vol]31.5 g/dL 29.9-35.2FMercy Health [facility] HospitalMCV Auto (RBC) [Entitic vol]on 50-35-2203EID (RBC) [Entitic vol]98.2 fL81.0-99.0[facility] HospitalMonocytes Auto (Bld) [#/Vol]on 65-10-0717Gjraprbsp (Bld) [#/Vol]0.5 10 3/uL0.3-0.8[facility] HospitalMonocytes/100 WBC Auto (Bld)on 79-07-4117Qhtptbijd/100 WBC (Bld)3.3 %1.7-12.0[facility] Neutrophils Auto (Bld) [#/Vol]on 95-95-9839Tumfvsozwxy (Bld) [#/Vol]14.3 10 3/uL High1.4-6.5FMercy Health [facility]sburg HospitalNeutrophils/100 WBC Auto (Bld)on 07-17-3879Fvcycoyxbww/100 WBC (Bld)90.1 %High43.0-75.0[facility] HospitalNo Panel Informationon 61-66-370040.9 pg/mL4.0-51.3FMercy Health [facility] Hospital4453.0 pg/mLCritically high<=1800.0[facility]2.0 g/dLLow3.4-5.0[facility]0.0 10 3/uL0.0-0.7 [facility]79 U/K30-623ClynhzfojProvidence Hospital32 U/U81-86ZunvbunbkProvidence Hospital45 U/QVeib07-57HcrddrkkzProvidence Hospital43.3FMercy Health [facility] Hospital0.18 10 3/uLHigh0.00-0.03 [facility]39.0 mg/dLHigh7.0-18.0[facility]1.1 %High0.0-0.5FMercy Health [facility]8.4 mg/dLLow 8.5-10.1FMercy Health [facility] Hospital109 mmol/MZdic98-521YpomocwjiProvidence Hospital27.0 mmol/L21.0-32.0[facility]0.90 mg/dL 0.55-1.02[facility]>60>=60 mL/min/1.73m 2FMercy Health [facility] Hospital126 mg/mGGkvv36-621AzonomtckProvidence Hospital5.0 mmol/L3.5-5.1FMercy Health [facility] Hospital143 mmol/O464-515HslgroeypProvidence Hospital0.3 mg/dL0.2-1.0[facility]6.0 g/dL Low6.4-8.2FMercy Health [facility]sburg HospitalPlatelet mean volume Auto (Bld) [Entitic vol]on 77-77-9624Dgjwonud mean volume (Bld) [Entitic vol]10.7 fL 9.5-13.5FMercy Health [facility] HospitalPlatelets Auto (Bld) [#/Vol]on 24-94-7470Uocizyfhf (Bld) [#/Vol]258 10 3/cW064-116MwrddiehuProvidence HospitalRBC Auto (Bld) [#/Vol]on 06-56-9251WZS (Bld) [#/Vol]3.42 10 6/uLLow 4.20-5.40[facility] Centererum or plasma albumin/globulin mass ratioon 35-40-3704Abgcvdo/Globulin [Mass ratio]0.5 {ratio}[facility] Centererum or plasma anion gap determinationon 75-66-0188Dhzww gap [Moles/Vol]12.0 mmol/LFMercy Health [facility] HospitalBasophils Auto (Bld) [#/Vol]on 36-37-1204Ikhjubmam (Bld) [#/Vol]0.0 10 3/uL0.0-0.1FMercy Health [facility] HospitalBasophils/100 WBC Auto (Bld)on 45-28-6027Eyktbswwg/100 WBC (Bld) 0.1 %Low0.2-2.0[facility] HospitalEosinophils/100 WBC Auto (Bld)on 09-65-0448Asbmlfbqysk/100 WBC (Bld)0.0 %Low0.9-7.0[facility] HospitalErythrocyte distribution width Auto (RBC) [Ratio]on 85-98-9465Cextnuptgkh distribution width (RBC) [Ratio]14.6 %11.0-15.0[facility] Estimated glomerular filtration rate (GFR) non- Americanon 01-23-2025 GFR/1.73 sq M.predicted among non-blacks MDRD (S/P/Bld) [Vol rate/Area]34 mL/min/{1.73_m2}Low>=60 mL/min/1.73m 2FMercy Health [facility]sburg HospitalGlobulin Calc (S) [Mass/Vol]on 55-03-1188Lasblzbx (S) [Mass/Vol]4.0 g/dLProvidence HospitalHematocrit Auto (Bld) [Volume fraction]on 01-23-2025 Hematocrit (Bld) [Volume fraction]34.8 %Low36.0-48.0[facility] HospitalHemoglobin [Mass/volume] in Bloodon 11-79-2250Ylsqofebjz (Bld) [Mass/Vol] 11.2 g/dLLow12.0-16.0[facility] HospitalLeukocytes [#/volume] corrected for nucleated erythrocytes in Blood by Automated counon 68-36-1732TUK corrected for nucl RBC Auto (Bld) [#/Vol]25.6 10 3/uLHigh4.0-11.0[facility] HospitalLymphocytes Auto (Bld) [#/Vol]on 39-00-9449Moqrtonilop (Bld) [#/Vol]1.3 10 3/uL1.2-3.8[facility] HospitalLymphocytes/100 WBC Auto (Bld)on 80-29-1596Leqvkovoqir/100 WBC (Bld)5.0 %Low20.5-60.0[facility] HospitalH Auto (RBC) [Entitic mass]on 75-45-9326VKS (RBC) [Entitic mass]31.4 pg26.7-34.0[facility] HospitalMCHC Auto (RBC) [Mass/Vol]on 68-48-9180LHDS (RBC) [Mass/Vol]32.2 g/dL29.9-35.2FMercy Health [facility] HospitalMCV Auto (RBC) [Entitic vol]on 05-46-0376VAP (RBC) [Entitic vol] 97.5 fL81.0-99.0[facility] HospitalMonocytes Auto (Bld) [#/Vol]on 38-50-6428Tyjtzpnul (Bld) [#/Vol]0.8 10 3/uL0.3-0.8[facility] HospitalMonocytes/100 WBC Auto (Bld)on 97-82-0728Aslxbtpek/100 WBC (Bld)3.0 % 1.7-12.0[facility] HospitalNeutrophils Auto (Bld) [#/Vol]on 73-20-7475Wvmauicnpty (Bld) [#/Vol]22.7 10 3/uLHigh1.4-6.5FMercy Health [facility] HospitalNeutrophils/100 WBC Auto (Bld)on 27-91-4503Axrpdpajbtx/100 WBC (Bld)89.0 %High43.0-75.0[facility] HospitalNo Panel Informationon 97-96-67641418.0 pg/mLCritically high<=1800.0[facility] 2.3 g/dLLow3.4-5.0[facility]0.0 10 3/uL0.0-0.7FMercy Health [facility] Hospital74 U/E63-879ItrogzwnlProvidence Hospital15 U/L14-59 [facility]20 U/Z16-30BigoxylibProvidence Hospital 28.8[facility]0.74 10 3/uLHigh0.00-0.03[facility]42.0 mg/dLHigh7.0-18.0[facility]2.9 %High 0.0-0.5FMercy Health [facility]9.2 mg/dL8.5-10.1FMercy Health [facility]106 mmol/T70-798GvornimzaProvidence Hospital27.8 mmol/L 21.0-32.0[facility]1.46 mg/dLHigh0.55-1.02[facility]41Low>=60 mL/min/1.73m 2FMercy Health [facility] 118 mg/dQUfmf66-827AtvidkykoProvidence Hospital5.7 mmol/LHigh3.5-5.1 [facility]142 mmol/K012-772GaeebtimwProvidence Hospital0.3 mg/dL0.2-1.0[facility]6.3 g/dLLow6.4-8.2 [facility] HospitalPlatelet mean volume Auto (Bld) [Entitic vol]on 60-82-9042Nixgbgzd mean volume (Bld) [Entitic vol]10.3 fL9.5-13.5FMercy Health [facility] HospitalPlatelets Auto (Bld) [#/Vol]on 10-57-5334Amcrecqbb (Bld) [#/Vol]247 10 3/rO826-004CpfleniagProvidence HospitalRBC Auto (Bld) [#/Vol] on 27-11-1769GCF (Bld) [#/Vol]3.57 10 6/uLLow4.20-5.40[facility] Centererum or plasma albumin/globulin mass ratioon 05-90-9591Houhnwi/Globulin [Mass ratio]0.6 {ratio}[facility] Centererum or plasma anion gap determinationon 85-81-7798Qpnrc gap [Moles/Vol]13.9 mmol/LFMercy Health [facility]sburg HospitalBasophils/100 WBC Manual cnt (Bld)on 81-60-8060Pnhpcusga/100 WBC (Bld)0.0 %Low0.2-2.0[facility] HospitalEosinophils/100 WBC Manual cnt (Bld)on 05-31-9569Gvdjekpfolj/100 WBC (Bld)0.0 %Low0.9-7.0[facility] HospitalErythrocyte distribution width Auto (RBC) [Ratio]on 01-22-2025 Erythrocyte distribution width (RBC) [Ratio]14.5 %11.0-15.0[facility] HospitalEstimated glomerular filtration rate (GFR) non- Americanon 68-81-1427VIW/1.73 sq M.predicted among non-blacks MDRD (S/P/Bld) [Vol rate/Area]40 mL/min/{1.73_m2}Low>=60 mL/min/1.73m 2FMercy Health [facility] HospitalHematocrit Auto (Bld) [Volume fraction]on 42-18-2185Otgyurcrwk (Bld) [Volume fraction]42.7 %36.0-48.0[facility] HospitalHemoglobin [Mass/volume] in Bloodon 22-86-4551Qvtglqeuta (Bld) [Mass/Vol]13.8 g/dL12.0-16.0 [facility] HospitalLeukocytes [#/volume] corrected for nucleated erythrocytes in Blood by Automated counon 51-58-6230TQZ corrected for nucl RBC Auto (Bld) [#/Vol]22.0 10 3/uLHigh4.0-11.0[facility] HospitalH Auto (RBC) [Entitic mass]on 41-56-2010IIU (RBC) [Entitic mass]31.2 pg26.7-34.0 [facility] HospitalMCHC Auto (RBC) [Mass/Vol]on 21-99-3179NHTP (RBC) [Mass/Vol]32.3 g/dL29.9-35.2FMercy Health [facility] HospitalMCV Auto (RBC) [Entitic vol]on 88-04-3474NGH (RBC) [Entitic vol]96.6 fL81.0-99.0[facility] HospitalNo Panel Informationon 53.1 mmol/LCritically high0.4-2.0[facility] HospitalNegativeProvidence Hospital21.4 pg/mL4.0-51.3FMercy Health [facility]7.7 10 3/uLHigh0.0-0.3 [facility]22.7FMer[facility]35.0 %High 0-5FMercy Health [facility]29.0 mg/dLHigh7.0-18.0[facility]0.00 10 3/uL0.00-0.70[facility]10.1 mg/dL 8.5-10.1FMercy Health [facility] Hospital103 mmol/J75-261TtrkecmqzProvidence Hospital27.9 mmol/L21.0-32.0[facility]1.28 mg/dL High0.55-1.02[facility]1.10 10 3/uLLow1.20-3.80[facility]48Low>=60 mL/min/1.73m 2FMercy Health [facility] 5.0 %Low20.5-60.0[facility]0.88 10 3/uLHigh0.30-0.80 [facility]106 mg/mY39-297UzhtizedwProvidence Hospital4.0 %1.7-12.0[facility]4.6 mmol/L3.5-5.1FMercy Health [facility]12.32 10 3/uLHigh1.4-6.5FMer[facility] 143 mmol/M853-203VqnseckreProvidence HospitalPlatelet mean volume Auto (Bld) [Entitic vol]on 48-77-8324Xntmafra mean volume (Bld) [Entitic vol]10.5 fL 9.5-13.5FMercy Health [facility] HospitalPlatelets Auto (Bld) [#/Vol]on 46-50-9705Qonzlwsqa (Bld) [#/Vol]308 10 3/aN347-559VzwfyaqxoProvidence HospitalRBC Auto (Bld) [#/Vol]on 63-41-9792EWP (Bld) [#/Vol]4.42 10 6/uL4.20-5.40 [facility] Centeregmented neutrophils/100 WBC Manual cnt (Bld) on 42-07-6387Rydaoyfgg neutrophils/100 WBC (Bld)56.0 %43.0-75.0[facility] Centererum or plasma anion gap determinationon 93-27-7304Jrbjc gap [Moles/Vol]16.7 mmol/LFMercy Health Perrysburg HospitalAlanine aminotransferase [Enzymatic activity/volume] in Serum or PlasmaOrdered By: Sheldon Xie on 24-47-8978EQR [Catalytic activity/Vol]Alanine aminotransferase [Enzymatic activity/volume] in Serum or Plasma7Providence HospitalAlbumin [Mass/volume] in Serum or Plasma by Bromocresol green (BCG) dye binding methoOrdered By: Sheldon Xie on 37-87-6140Vnhflvf BCG dye [Mass/Vol] Albumin [Mass/volume] in Serum or Plasma by Bromocresol green (BCG) dye binding metho3.5-5.7FMercy Health [facility] HospitalAlkaline phosphatase [Enzymatic activity/volume] in Serum or PlasmaOrdered By: Sheldon Xie on 33-10-1821SXS [Catalytic activity/Vol]Alkaline phosphatase [Enzymatic activity/volume] in Serum or Qbvxgo65-486HeicswfudProvidence HospitalAspartate aminotransferase [Enzymatic activity/volume] in Serum or PlasmaOrdered By: Sheldon Xie on 92-64-2161YOG [Catalytic activity/Vol]Aspartate aminotransferase [Enzymatic activity/volume] in Serum or Pbvhjn05-48HrudqlwmmProvidence Hospital Basophils Auto (Bld) [#/Vol]Ordered By: Sheldon Xie on 59-25-4222Vuetvlnvv (Bld) [#/Vol]Automated basophil count0.0-0.2FMercy Health [facility] Basophils/100 WBC Auto (Bld)Ordered By: Sheldon Xie on 58-37-5348Irzssofse/100 WBC (Bld)Automated basophil %.Prov[facility] HospitalBilirubin.total [Mass/volume] in Serum or PlasmaOrdered By: Sheldon Xie on 34-13-1716Lgxikhbgs [Mass/Vol]Bilirubin.total [Mass/volume] in Serum or Plasma0.3-1.0[facility] HospitalCalcium [Mass/volume] in Serum or PlasmaOrdered By: Sheldon Xie on 30-77-5099Cxcwyts [Mass/Vol]Calcium [Mass/volume] in Serum or Plasma High8.6-10.3FMercy Health [facility] HospitalCarbon dioxide, total [Moles/volume] in Serum or PlasmaOrdered By: Sheldon Xie on 95-64-5836TC9 [Moles/Vol]Carbon dioxide, total [Moles/volume] in Serum or UyljgiDwug49.0-31.0 [facility] HospitalChloride [Moles/volume] in Serum or Plasma Ordered By: Sheldon Xie 31-16-1834Dfncabfk [Moles/Vol]Chloride [Moles/volume] in Serum or Yzuoei10-019EtwogudtrProvidence HospitalCholesterol [Mass/volume] in Serum or PlasmaOrdered By: Sheldon Xie on 77-32-8745Jcllbekpklw [Mass/Vol]Cholesterol [Mass/volume] in Serum or IpcksmRfi726-252WgftjukjqProvidence HospitalComment on above:Chol less than 200 mg/dl low riskChol 201-239 mg/dl borderline riskChol 240 mg/dl and greater high riskCholesterol in HDL [Mass/volume] in Serum or PlasmaOrdered By: Sheldon Xie on 11-14-2024 Cholesterol in HDL [Mass/Vol]Serum or plasma high density lipoprotein (HDL) cholesterol wxstxnhyvqc76-23BqpxgvbekProvidence HospitalComment on above: HDL CHOL ATP-III CLASSIFICATION Cardiovascular RiskHDL > or equal to 60 mg/dL LOWHDL < 40 mg/dL HIGHCholesterol in LDL Calc [Mass/Vol]Ordered By: Sheldon Xie on 57-23-1403Shswhrdhtmc in LDL [Mass/Vol]Cholesterol in LDL [Mass/volume] in Serum or Plasma by calculation0-100Providence HospitalComment on above:LDL ATP III CLASSIFICATIONLDL less than 100 mg/dL OptimalLDL 100-129 mg/dL Near or above cbmfaazLTA261-989 mg/dL Borderline highLDL 160-189 mg/dL HighLDL greater than 189 mg/dL Very highCholesterol in VLDL Calc [Mass/Vol]Ordered By: Sheldon Xie on 41-94-6789Jdxoayaipwq in VLDL [Mass/Vol]Cholesterol in VLDL [Mass/volume] in Serum or Plasma by calculationProvidence Hospital Complete Blood Count Auto Diffon 24-87-6381Otcbwitve (Bld) [#/Vol]0.1 10*3/uL Normal0.0-0.2The [facility] Physician GroupComment on above:Result Comment: PERFORMED BY: [place] [address] PATHOLOGIST TEAM PSYCHOLOGIST SUKUMAR SINGH M.D.Performed By: #### CMP, LIPID, TSH3, CBC #### [facility] [address] [place] [address] USABasophils/100 WBC (Bld)1.0 %Normal.[facility] Physician GroupComment on above:Performed By: #### CMP, LIPID, TSH3, CBC #### [facility] [address] [place] [address] USAEosinophils (Bld) [#/Vol]0.3 10*3/uLNormal0.0-0.45[facility] Physician GroupComment on above:Performed By: #### CMP, LIPID, TSH3, CBC #### [facility] [address] [place] [address] USAEosinophils/100 WBC (Bld)2.9 %Normal.[facility] Physician GroupComment on above:Performed By: #### CMP, LIPID, TSH3, CBC #### [place] [address] USAErythrocyte distribution width (RBC) [Ratio]15.0 %Normal 11.9-15.3The [facility] Physician GroupComment on above:Performed By: #### CMP, LIPID, TSH3, CBC #### [place] [address] USAHematocrit (Bld) [Volume fraction]38.8 %Zipyco26.0-46.4The [facility] Physician GroupComment on above:Performed By: #### CMP, LIPID, TSH3, CBC #### [place] [address] USAHemoglobin (Bld) [Mass/Vol]12.7 g/kHGprevg12.8-15.4The [facility] Physician GroupComment on above:Performed By: #### CMP, LIPID, TSH3, CBC #### [place] [address] USALymphocytes (Bld) [#/Vol]1.6 10*3/uLNormal1.00-4.8The [facility] Physician GroupComment on above:Performed By: #### CMP, LIPID, TSH3, CBC #### [place] [address] USALymphocytes/100 WBC (Bld)16.8 %Normal.[facility] Physician GroupComment on above:Performed By: #### CMP, LIPID, TSH3, CBC #### [place] [address] USAMCH (RBC) [Entitic mass]31.5 vjCcbhlu70.7-34.3The [facility] Physician GroupComment on above:Performed By: #### CMP, LIPID, TSH3, CBC #### [place] [address] USAMCV (RBC) [Entitic vol]96.5 fINkbyzo18-935Ktf [facility] Physician GroupComment on above:Performed By: #### CMP, LIPID, TSH3, CBC #### [place] [id number] USAMean Corpuscular HGB Conc32.7 g/xBUkdwfj45.0-35.0The [facility] Physician GroupComment on above:Performed By: #### CMP, LIPID, TSH3, CBC #### [facility] [address] [place] [address] USAMonocytes (Bld) [#/Vol]0.7 10*3/uLNormal0.0-0.8The [facility] Physician GroupComment on above:Performed By: #### CMP, LIPID, TSH3, CBC #### [place] [address] USAMonocytes/100 WBC (Bld)7.0 %Normal.[facility] Physician GroupComment on above:Performed By: #### CMP, LIPID, TSH3, CBC #### [place] [address] USANeutrophils (Bld) [#/Vol]6.9 10*3/uLNormal1.8-7.7The [facility] Physician GroupComment on above:Performed By: #### CMP, LIPID, TSH3, CBC #### [place] [address] USANeutrophils/100 WBC (Bld)72.3 %Normal.The [facility] Physician GroupComment on above:Performed By: #### CMP, LIPID, TSH3, CBC #### [place] [address] USANRBC%0.1 /100{WBC}Normal0-0.5The [facility] Comment on above:Performed By: #### CMP, LIPID, TSH3, CBC #### [place] [address] USAPlatelet mean volume (Bld) [Entitic vol]8.9 fLNormal 6.3-10.7The [facility] Physician GroupComment on above:Performed By: #### CMP, LIPID, TSH3, CBC #### [place] [address] USAPlatelets (Bld) [#/Vol]381 10*3/jTQmpcoz890-315Eng [facility] Physician GroupComment on above:Performed By: #### CMP, LIPID, TSH3, CBC #### [facility] [address] [place] [address] USARBC (Bld) [#/Vol]4.02 10*6/uLNormal3.60-5.00The [facility] Physician GroupComment on above:Performed By: #### CMP, LIPID, TSH3, CBC #### [facility] [address] [place] [address] USAWBC (Bld) [#/Vol]9.5 10*3/uLNormal3.8-11.6The [facility] Physician GroupComment on above:Performed By: #### CMP, LIPID, TSH3, CBC #### [place] [address] USAComprehensive Metabolic Panelon [id number] [Mass/Vol]4.0 g/dLNormal3.5-5.7The [facility] Physician GroupComment on above: Performed By: #### CMP, LIPID, TSH3, CBC #### [place] [address] USAAlbumin/Globulin [Mass ratio]1.2 {ratio}NormalThe [facility] Physician GroupComment on above:Performed By: #### CMP, LIPID, TSH3, CBC #### [facility] [address] [place] [address] USAALP [Catalytic activity/Vol]64 U/YLriinq77-095Txq [facility] Physician GroupComment on above:Performed By: #### CMP, LIPID, TSH3, CBC #### [facility] [address] [place] [address] USAALT [Catalytic activity/Vol]12 U/LNormal7-52The [facility] Physician GroupComment on above:Performed By: #### CMP, LIPID, TSH3, CBC #### [facility] [address] [place] [address] USAAnion gap [Moles/Vol]12.7 mmol/LNormal6.0-15.0The [facility] Physician GroupComment on above:Performed By: #### CMP, LIPID, TSH3, CBC #### [place] [address] USAAST [Catalytic activity/Vol]20 U/WOdseuq07-79Tqq [facility] Physician GroupComment on above:Performed By: #### CMP, LIPID, TSH3, CBC #### [place] [address] USABilirubin [Mass/Vol]0.6 mg/dLNormal0.3-1.0The [facility] Physician GroupComment on above:Performed By: #### CMP, LIPID, TSH3, CBC #### [place] [address] USACalcium [Mass/Vol]10.4 mg/dLHigh8.6-10.3The [facility] Physician GroupComment on above:Performed By: #### CMP, LIPID, TSH3, CBC #### [place] [address] USAChloride [Moles/Vol]102 mmol/TNfbtlw49-818Cys [facility] Physician GroupComment on above:Performed By: #### CMP, LIPID, TSH3, CBC #### [place] [address] USACO2 [Moles/Vol]31.8 mmol/LHigh21.0-31.0The [facility] Physician GroupComment on above:Performed By: #### CMP, LIPID, TSH3, CBC #### [place] [address] USACreatinine [Mass/Vol]1.03 mg/dLNormal0.60-1.20The [facility] Physician GroupComment on above:Performed By: #### CMP, LIPID, TSH3, CBC #### [place] [address] USAEstimated GFR53.951 mL/MinNormalThe [facility] Physician GroupComment on above:Performed By: #### CMP, LIPID, TSH3, CBC #### [place] [address] USAGlobulin (S) [Mass/Vol]3.3 g/dLNormalThe [facility] Physician GroupComment on above:Performed By: #### CMP, LIPID, TSH3, CBC #### [facility] [address] [place] [address] USAGlucose [Mass/Vol]80 mg/ySKtjvnc36-903Cqj [facility] Physician GroupComment on above:Result Comment: Random Glucose Reference Range is dependent on time and content of last meal. Glucose of more than 200 mg/dL in a nonstressed, ambulatory subject supports the diagnosis of Diabetes Mellitus. ADA recommended reference rangePerformed By: #### CMP, LIPID, TSH3, CBC #### [facility] [address] [place] [address] USAPotassium [Moles/Vol]4.5 mmol/LNormal3.5-5.1The [facility] Physician GroupComment on above:Performed By: #### CMP, LIPID, TSH3, CBC #### [facility] [address] [place] [address] USAProtein [Mass/Vol]7.3 g/dLNormal6.4-8.9The [facility] Physician GroupComment on above:Performed By: #### CMP, LIPID, TSH3, CBC #### [facility] [address] [place] [address] USASodium [Moles/Vol]142 mmol/ASevapa658-935Iug [facility] Physician GroupComment on above:Performed By: #### CMP, LIPID, TSH3, CBC #### [facility] [address] [place] [address] USAUrea nitrogen [Mass/Vol]34 mg/dLHigh7-25The [facility] Physician GroupComment on above:Performed By: #### CMP, LIPID, TSH3, CBC #### [facility] [address] [place] [address] USACreatinine [Mass/volume] in Serum or PlasmaOrdered By: Sheldon Xie on 48-70-5432Mgqzmwxags [Mass/Vol]Creatinine [Mass/volume] in Serum or Plasma0.60-1.20Providence HospitalEosinophils Auto (Bld) [#/Vol]Ordered By: Sheldon Xie on 42-43-9112Cjavbfbwylt (Bld) [#/Vol]Automated eosinophil count0.0-0.45Providence HospitalEosinophils/100 WBC Auto (Bld)Ordered By: Sheldon Xie on 36-34-5857Jtttrmxsvml/100 WBC (Bld)Automated eosinophil %.Providence HospitalErythrocyte distribution width Auto (RBC) [Ratio]Ordered By: Sheldon Xie on 39-28-3127Isvizgxeowh distribution width (RBC) [Ratio]Erythrocyte distribution width [Ratio] by Automated count 11.9-15.3FMercy Health Perrysburg HospitalGlobulin Calc (S) [Mass/Vol]Ordered By: Sheldon Xie on 03-45-8785Vsakboew (S) [Mass/Vol]Serum globulin measurement by calculation (mass/volume)Providence HospitalGlucose [Mass/volume] in Serum or PlasmaOrdered By: Sheldon Xie on 46-11-7300Lmgsxrk [Mass/Vol]Glucose [Mass/volume] in Serum or Ogrfvk66-563OaoxirfjnProvidence HospitalComment on above:ADA recommended reference rangeRandom Glucose Reference Range is dependent on time and content of last meal. Glucose of more than 200 mg/dL in a nonstressed, ambulatory subject supports the diagnosisof Diabetes Mellitus. Hematocrit Auto (Bld) [Volume fraction]Ordered By: Sheldon Xie on 11-14-2024 Hematocrit (Bld) [Volume fraction]Hematocrit [Volume Fraction] of Blood by Automated count34.0-46.4FMercy Health Perrysburg HospitalHemoglobin [Mass/volume] in BloodOrdered By: Sheldon Xie on 07-12-8361Bksfstvkic (Bld) [Mass/Vol]Hemoglobin [Mass/volume] in Blood11.8-15.4FMercy Health Perrysburg HospitalLeukocytes [#/volume] corrected for nucleated erythrocytes in Blood by Automated counOrdered By: Sheldon Xie on 57-39-1626RRR corrected for nucl RBC Auto (Bld) [#/Vol]Leukocytes [#/volume] corrected for nucleated erythrocytes in Blood by Automated coun3.8-11.6FMercy Health Perrysburg HospitalLipid Panelon 97-31-7512Suiiokosyyi [Mass/Vol]133 mg/bQEvo731-487Rvu [facility] Comment on above:Result Comment: Chol less than 200 mg/dl low risk Chol 201-239 mg/dl borderline risk Chol 240 mg/dl and greater high riskPerformed By: #### CMP, LIPID, TSH3, CBC #### [facility] [address] [place] [address] USACholesterol in HDL [Mass/Vol]46 mg/lCSizsdm25-06Qgd [facility] Physician GroupComment on above:Result Comment: HDL CHOL ATP-III CLASSIFICATION Cardiovascular Risk HDL > or equal to 60 mg/dL LOW HDL < 40 mg/dL HIGHPerformed By: #### CMP, LIPID, TSH3, CBC #### [facility] [address] [place] [id number] USACholesterol.total/Cholesterol in HDL [Mass ratio]2.9 {ratio}Normal<5.0The [facility] Physician GroupComment on above:Performed By: #### CMP, LIPID, TSH3, CBC #### [facility] [address] [place] [id number] USALDL Cholesterol,Pqlsrsdfvz44 mg/dLNormal0-100The [facility] Physician GroupComment on above:Result Comment: LDL ATP III CLASSIFICATION LDL less than 100 mg/dL Optimal LDL 100-129 mg/dL Near or above optimal LDL 130-159 mg/dL Borderline high LDL 160-189 mg/dL High LDL greater than 189 mg/dL Very highPerformed By: #### CMP, LIPID, TSH3, CBC #### [facility] [address] [place] [id number] USATriglyceride w/Csawku057 mg/dLNormal0-149The [facility] Physician GroupComment on above:Result Comment: TRIG ATP III CLASSIFICATION TRIG less than 150 mg/dL Normal TRIG 150-199 mg/dL Borderline high TRIG 200-500 mg/dL High TRIG greater than 500 mg/dL Very high Standard traceable to the Center for Disease Conrtrol and Prevention (CDC) test method.Performed By: #### CMP, LIPID, TSH3, CBC #### [facility] [address] [place] [address] USAVLDL SCUUBJMHLPN24 mg/dLNormalThe [facility] Physician GroupComment on above:Performed By: #### CMP, LIPID, TSH3, CBC #### [facility] [address] [place] [address] USALymphocytes Auto (Bld) [#/Vol]Ordered By: Sheldon Xie on 69-39-2553Kksjirbpzrl (Bld) [#/Vol]Lymphocytes [#/volume] in Blood by Automated count1.00-4.8Providence HospitalLymphocytes/100 WBC Auto (Bld) Ordered By: Sheldon Xie on 37-81-9732Aadoxovyilc/100 WBC (Bld)Lymphocytes/100 leukocytes in Blood by Automated count.[facility] HospitalH Auto (RBC) [Entitic mass]Ordered By: Sheldon Xie on 78-08-6251YSC (RBC) [Entitic mass]MCH [Entitic mass] by Automated count24.7-34.3FMercy Health Perrysburg HospitalMCHC Auto (RBC) [Mass/Vol]Ordered By: Sheldon Xie on 54-28-1855BQKX (RBC) [Mass/Vol]MCHC [Mass/volume] by Automated count32.0-35.0Providence HospitalMCV Auto (RBC) [Entitic vol]Ordered By: Sheldon Xie on 11-14-2024 MCV (RBC) [Entitic vol]MCV [Entitic volume] by Automated qfmne94-665BsohjcyaeProvidence HospitalMonocytes Auto (Bld) [#/Vol]Ordered By: Sheldon Xie on 36-64-2700Llowgjddc (Bld) [#/Vol]Automated blood monocyte count0.0-0.8Providence HospitalMonocytes/100 WBC Auto (Bld)Ordered By: Sheldon Xie on 18-73-7727Hhwhjkrbc/100 WBC (Bld)Automated monocyte %.Providence HospitalNeutrophils Auto (Bld) [#/Vol]Ordered By: Sheldon Xie on 11-14-2024 Neutrophils (Bld) [#/Vol]Neutrophils [#/volume] in Blood by Automated count 1.8-7.7FMercy Health Perrysburg HospitalNeutrophils/100 WBC Auto (Bld)Ordered By: Sheldon Xie on 95-85-7465Zrsldbetyaz/100 WBC (Bld)Automated neutrophil %. Providence HospitalNo Panel InformationOrdered By: Sheldon Xie on 25-43-1611Euksfsesn GFR (CKD-EPI)53.951 mL/MinProvidence Hospital Pharmacy Creatinine Clearance (ChemN/AFMercy Health Perrysburg HospitalNucleated erythrocytes [Presence] in Blood by Automated countOrdered By: Sheldon Xie on 14-72-1461Xvckbbxli RBC Auto Ql (Bld)Nucleated erythrocytes [Presence] in Blood by Automated count0-0.5FMercy Health Perrysburg HospitalPlatelet mean volume Auto (Bld) [Entitic vol]Ordered By: Sheldon Xie on 21-81-2005Lqyjutom mean volume (Bld) [Entitic vol]Platelet mean volume [Entitic volume] in Blood by Automated count6.3-10.7FMercy Health Perrysburg HospitalPlatelets Auto (Bld) [#/Vol] Ordered By: Sheldon Xie on 69-07-2862Xyitjqccq (Bld) [#/Vol]Platelets [#/volume] in Blood by Automated erxej480-107ZpojcekrsProvidence HospitalPotassium [Moles/volume] in Serum or PlasmaOrdered By: Sheldon Xie on 95-70-7802Xmxhcbjzf [Moles/Vol]Potassium [Moles/volume] in Serum or Plasma3.5-5.1FMercy Health Perrysburg HospitalProtein [Mass/volume] in Serum or PlasmaOrdered By: Sheldon Xie on 31-66-4189Mwfolst [Mass/Vol]Protein [Mass/volume] in Serum or Plasma6.4-8.9 Providence HospitalRBC Auto (Bld) [#/Vol]Ordered By: Sheldon Xie on 43-18-0248VFU (Bld) [#/Vol]Erythrocytes [#/volume] in Blood by Automated count 3.60-5.00[facility] Centererum or plasma albumin/globulin mass ratioOrdered By: Sheldon Xie on 02-10-8084Tdoaaee/Globulin [Mass ratio]Serum or plasma albumin/globulin mass ratioSouthern Ohio Medical Centererum or plasma anion gap determinationOrdered By: Sheldon Xie on 39-28-8990Euujp gap [Moles/Vol]Serum or plasma anion gap determination6.0-15.0[facility] Centererum or plasma total cholesterol/high density lipoprotein (HDL) cholesterol mass ratOrdered By: Sheldon Xie on 11-14-2024 Cholesterol.total/Cholesterol in HDL [Mass ratio]Serum or plasma total cholesterol/high density lipoprotein (HDL) cholesterol mass rat<5.0[facility] Centerodium [Moles/volume] in Serum or PlasmaOrdered By: Sheldon Xie on 88-26-7307Evavkq [Moles/Vol]Sodium [Moles/volume] in Serum or Plasma 136-145Providence HospitalThyroid Stimulating Hormoneon 11-14-2024 TSH Qn3.33 m[IU]/LNormal0.45-5.33The [facility] Physician GroupComment on above: Result Comment: PERFORMED BY: [facility] [address] [place] [address] PATHOLOGIST TEAM PSYCHOLOGIST SUKUMAR SINGH M.D.Performed By: #### CMP, LIPID, TSH3, CBC #### [facility] [address] [place] [address] USAThyrotropin [Units/volume] in Serum or PlasmaOrdered By: Sheldon Xie on 76-73-2730SOO QnThyrotropin [Units/volume] in Serum or Plasma 0.45-5.33Providence HospitalTriglyceride [Mass/volume] in Serum or PlasmaOrdered By: Sheldon Xie on 07-59-9946Tbwwpzvrjhvw [Mass/Vol]Triglyceride [Mass/volume] in Serum or Plasma0-149Providence HospitalComment on above:TRIG ATP III CLASSIFICATIONTRIG less than 150 mg/dL NormalTRIG 150-199 mg/dL Borderline highTRIG 200-500 mg/dL High TRIG greater than 500 mg/dL Very highStandard traceable to the Center for Disease Conrtrol and Prevention (CDC) test method.Urea nitrogen [Mass/volume] in Serum or PlasmaOrdered By: Sheldon Xie on 09-34-2722Dylc nitrogen [Mass/Vol]Urea nitrogen [Mass/volume] in Serum or PlasmaHigh7-25Fire[facility] Medical CenterWBC Auto (Bld) [#/Vol]Ordered By: Sheldon Xie on 35-43-4387DJL (Bld) [#/Vol]Leukocytes [#/volume] in Blood by Automated count3.8-11.6FMercy Health Perrysburg HospitalNo Panel Informationon 90-06-7307Nvnx Tone Audiometry Audio indicated 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 [facility] HospitalEstimated glomerular filtration rate (GFR) non- Americanon 24-84-8515XBF/1.73 sq M.predicted among non-blacks MDRD (S/P/Bld) [Vol rate/Area]Estimated glomerular filtration rate (GFR) non- AmericanLow>=60 mL/min/1.73m 2FMercy Health Perrysburg HospitalGlobulin Calc (S) [Mass/Vol]on 15-49-1202Ezbmckgp (S) [Mass/Vol]Serum globulin measurement by calculation (mass/volume)[facility] HospitalLaboratory - Chemistry and Chemistry - challengeon 79-58-3907Jafdyzr [Mass/Vol]3.4 g/dL3.4-5.0 [facility] HospitalALP [Catalytic activity/Vol]74 U/L46-116 [facility] HospitalALT [Catalytic activity/Vol]15 U/L14-59 [facility] HospitalAST [Catalytic activity/Vol]19 U/L15-37 Providence HospitalBilirubin [Mass/Vol]0.4 mg/dL0.2-1.0Prov[facility] HospitalCalcium [Mass/Vol]9.6 mg/dL8.5-10.1FMercy Health Perrysburg HospitalChloride [Moles/Vol]107 mmol/B40-634JinfaivjnProvidence HospitalCO2 [Moles/Vol]29.7 mmol/L21.0-32.0[facility] Creatinine [Mass/Vol]1.28 mg/dLHigh0.55-1.02[facility] GFR/1.73 sq M.predicted MDRD (S/P/Bld) [Vol rate/Area]48 mL/min/{1.73_m2}Low>=60 mL/min/1.73m 2FMercy Health Perrysburg HospitalGlucose [Mass/Vol]113 mg/dLHigh 74-106Providence HospitalPotassium [Moles/Vol]4.9 mmol/L3.5-5.1 [facility] HospitalProtein [Mass/Vol]6.9 g/dL6.4-8.2FKettering Health Prebleodium [Moles/Vol]145 mmol/I607-648PfwjwvyybProvidence HospitalUrea nitrogen [Mass/Vol]25.0 mg/dLHigh7.0-18.0Providence HospitalUrea nitrogen/Creatinine [Mass ratio]19.5 mg/mgSouthern Ohio Medical Centererum or plasma albumin/globulin mass ratioon 07-08-2024 Albumin/Globulin [Mass ratio]Serum or plasma albumin/globulin mass ratio [facility] Centererum or plasma anion gap determinationon 23-42-4753Inejy gap [Moles/Vol]Serum or plasma anion gap determinationProvidence HospitalXR lumbar spine 6V w bendingon 94-39-3614YJ lumbar spine 6V w bendingGALION [place] [address] XRay Report Signed Patient: Aleksanrd Sanchez MR#: [id number] : 1940 Acct:[id number] Age/Sex: 83 / F ADM Date: 06/18/24 [facility] Attending Dr: Sheldon Xie DO [...] Gray Mukherjee M.D.06/18/2024 6:14 PM Dictation Location: [place] [address] Transcribed By: [facility] 06/18/241813 Dictated By: Gray Mukherjee II, MD 06/18/241812 Signed By: 06/18/241813[facility] Physician GroupXR ribs RT 2Von 82-41-8028QV ribs RT 2VGALION COMM[place] [address] XRay Report Signed Patient: Aleksandr Sanchez MR#: [id number] : 1940 Acct:[id number] Age/Sex: 83 / F ADM Date: 06/18/24 Loc: [facility] Room: Type: [facility] Attending Dr: Sheldon Xie DO Copies to: Sheldon Xie DO Ordering Provider: Sheldon Xie DO Date of Service: 06/18/24 XR/XR cervical spine 5V*: W19.XXXA - Unspecified fall, initial encounter ([id number]) XR/XR ribs RT 2V: W19.XXXA - Unspecified fall, initial encounter ([id number]) XR/XR sacrum coccyx min 2V: W19.XXXA - [...] Latonya Cueva M.D.06/18/2024 11:09 PM Dictation Location: [place] [address] Transcribed By: BRANDON 06/18/242308 Dictated By: Latonya Cueva MD 06/18/242299 Signed By: 06/18/242308[facility] Physician GroupInfluenza virus B Ag [Presence] in Upper respiratory specimen by Rapid immunoassayon 07-33-7957GWYID Ag IA.rapid Ql (Nph)NegativeProvidence HospitalFLUBV Ag IA.rapid Ql (Nph) Influenza virus B Ag [Presence] in Upper respiratory specimen by Rapid immunoassayProvidence HospitalNo Panel InformationOrdered By: Sheldon Xie on 87-56-0243Trlxj Strep (POC)Providence HospitalRSV (POC)Providence HospitalQuick Strep (POC)Providence HospitalRSV (POC)[facility] HospitalNo Panel Informationon 43-31-1488Fvekudsmr Type A (Rapid)NegativeProvidence HospitalPOC SARS CoV-2 AntigenNegativeProvidence HospitalXR chest 2V*on 33-10-9108ES chest 2V*[facility] [place] [address] XRay Report Signed Patient: Aleksandr Sanchez MR#: [id number] : 1940 Acct:[id number] Age/Sex: 83 / F ADM Date: 05/16/24 Loc: XDS Room: Type: [facility] Attending Dr: Sheldon Xie DO [...] Latonya Cueva M.D.05/16/2024 1:54 PM Dictation Location: [place] [address] Transcribed By: BRANDON 05/16/24 1355 Dictated By: Latonya Cueva MD 05/16/24 1351 Signed By: 05/16/24 1354[facility] Physician GroupAlanine aminotransferase [Enzymatic activity/volume] in Serum or PlasmaOrdered By: Sheldon Xie on 91-17-7078IJC [Catalytic activity/Vol]10 U/LNormal789 Sparks StreetComment on above:Performed By: #### LIPID, CBC, CMP, TSH3 #### [facility] [address] [place] [address] USAALT [Catalytic activity/Vol]Alanine aminotransferase [Enzymatic activity/volume] in Serum or PlasmaProvidence HospitalAlbumin [Mass/volume] in Serum or Plasma by Bromocresol green (BCG) dye binding methoOrdered By: Sheldon Xie on 14-71-3785Auymdck BCG dye [Mass/Vol]3.8 g/dL3.5-5.7FMercy Health Perrysburg HospitalAlbumin BCG dye [Mass/Vol]Albumin [Mass/volume] in Serum or Plasma by Bromocresol green (BCG) dye binding metho 3.5-5.7FMercy Health Perrysburg HospitalAlkaline phosphatase [Enzymatic activity/volume] in Serum or PlasmaOrdered By: Sheldon Xie on 31-09-5691EHK [Catalytic activity/Vol]73 U/OYcfcfi38-028Qlvtbufqn[address] Comment on above:Performed By: #### LIPID, CBC, CMP, TSH3 #### [facility] [address] [place] [address] USAALP [Catalytic activity/Vol]Alkaline phosphatase [Enzymatic activity/volume] in Serum or Aewlra41-927Qmqfocsti14 [address] StreetAspartate aminotransferase [Enzymatic activity/volume] in Serum or Plasma Ordered By: Sheldon Xie on 84-32-7605YRD [Catalytic activity/Vol]16 U/LNormal -[address] [place], [place] [address]Comment on above:Performed By: #### LIPID, CBC, CMP, TSH3 #### [facility] [address] [place] [address] USAAST [Catalytic activity/Vol]Aspartate aminotransferase [Enzymatic activity/volume] in Serum or Yhsmub31-67ZnirqrblzProvidence HospitalAutomated basophil %Ordered By: Sheldon Xie on 77-15-1040Qwpgavatq/100 WBC (Bld)1.6 %Normal.Providence HospitalComment on above:Performed By: #### LIPID, CBC, CMP, TSH3 #### [place] [address] USAAutomated basophil countOrdered By: Sheldonnicola Alvarezs on 68-52-0274Dnnyqlnjz (Bld) [#/Vol]0.2 10*3/uLNormal0.0-0.2FMercy Health Perrysburg HospitalComment on above:Result Comment: PERFORMED BY: [place] [address] PATHOLOGIST TEAM PSYCHOLOGIST JESSE ROMO M.D.Performed By: #### LIPID, CBC, CMP, TSH3 #### [place] [address] USAAutomated blood monocyte countOrdered By: Sheldon Alvarezs on 11-07-6741Dhvazozzd (Bld) [#/Vol]0.8 10*3/uLNormal0.0-0.8Providence HospitalComment on above:Performed By: #### LIPID, CBC, CMP, TSH3 #### [place] [address] USAAutomated eosinophil %Ordered By: Sheldonnicola Alvarezs on 05-15-2024 Eosinophils/100 WBC (Bld)1.7 %Normal.Providence HospitalComment on above:Performed By: #### LIPID, CBC, CMP, TSH3 #### [place] [address] USAAutomated eosinophil countOrdered By: Sheldonnicola Alvarezs on 32-50-5100Bgzomlofepu (Bld) [#/Vol]0.2 10*3/uLNormal0.0-0.45Providence HospitalComment on above:Performed By: #### LIPID, CBC, CMP, TSH3 #### [place] [address] USAAutomated monocyte %Ordered By: Sheldon Longs on 05-15-2024 Monocytes/100 WBC (Bld)5.9 %Normal.Providence HospitalComment on above:Performed By: #### LIPID, CBC, CMP, TSH3 #### [facility] [address] [place] [id number] USAAutomated neutrophil %Ordered By: Sheldon Xie on 05-15-2024 Neutrophils/100 WBC (Bld)76.5 %Normal.Providence HospitalComment on above:Performed By: #### LIPID, CBC, CMP, TSH3 #### [facility] [address] [place] [id number] USABasophils Auto (Bld) [#/Vol]Ordered By: Sheldon Xie on 29-58-2093Nqmvtbxoe (Bld) [#/Vol]Automated basophil count0.0-0.2FMercy Health Perrysburg HospitalBasophils/100 WBC Auto (Bld)Ordered By: Sheldon Xie on 43-77-8040Onacxzbjc/100 WBC (Bld)Automated basophil %.Providence HospitalBilirubin.total [Mass/volume] in Serum or PlasmaOrdered By: Sheldon Xie on 51-58-1166Onmjxzbnw [Mass/Vol]0.4 mg/dLNormal0.3-1.0Providence HospitalComment on above:Performed By: #### LIPID, CBC, CMP, TSH3 #### [facility] [address] [place] [id number] USABilirubin [Mass/Vol]Bilirubin.total [Mass/volume] in Serum or Plasma0.3-1.0Providence HospitalCalcium [Mass/volume] in Serum or PlasmaOrdered By: Sheldon Xie on 83-71-9054Acpqxnt [Mass/Vol]9.6 mg/dLNormal 8.6-10.3FMercy Health Perrysburg HospitalComment on above:Performed By: #### LIPID, CBC, CMP, TSH3 #### [facility] [address] [place] [id number] USACalcium [Mass/Vol]Calcium [Mass/volume] in Serum or Plasma 8.6-10.3FMercy Health Perrysburg HospitalCarbon dioxide, total [Moles/volume] in Serum or PlasmaOrdered By: Sheldon Xie on 54-25-2423KV2 [Moles/Vol]28.7 mmol/L Afspzf25.0-31.0Providence HospitalComment on above:Performed By: #### LIPID, CBC, CMP, TSH3 #### [facility] [address] [place] [address] USACO2 [Moles/Vol]Carbon dioxide, total [Moles/volume] in Serum or Pnixck68.0-31.0Providence HospitalChloride [Moles/volume] in Serum or PlasmaOrdered By: Sheldon Xie on 77-83-3821Ifanditk [Moles/Vol]105 mmol/QCxfnto21-991Qhyljlwnw[address] [place], [place] [address]Comment on above:Performed By: #### LIPID, CBC, CMP, TSH3 #### [facility] [address] [place] [address] USAChloride [Moles/Vol]Chloride [Moles/volume] in Serum or Nyodjq72-138RpdgobiqvProvidence HospitalCholesterol [Mass/volume] in Serum or PlasmaOrdered By: Sheldon Xie on 81-13-7783Ascijlavvnf [Mass/Vol]137 mg/dLLow 140-200Providence HospitalComment on above:Chol less than 200 mg/dl low riskChol 201-239 mg/dl borderline riskChol 240 mg/dl and greater high riskResult Comment: Chol less than 200 mg/dl low risk Chol 201-239 mg/dl borderline risk Chol 240 mg/dl and greater high riskPerformed By: #### LIPID, CBC, CMP, TSH3 #### [facility] [address] [place] [address] USACholesterol [Mass/Vol]Cholesterol [Mass/volume] in Serum or PvymlcTkw479-212MzfuhzcmfProvidence HospitalComment on above:Chol less than 200 mg/dl low riskChol 201-239 mg/dl borderline riskChol 240 mg/dl and greater high riskCholesterol in HDL [Mass/volume] in Serum or PlasmaOrdered By: Sheldon Xie on 47-82-1462Fmtsgsbvkqm in HDL [Mass/Vol]Serum or plasma high density lipoprotein (HDL) cholesterol hpyqqaasnlz00-99YhsotwjumProvidence HospitalComment on above:HDL CHOL ATP-III CLASSIFICATION Cardiovascular RiskHDL > or equal to 60 mg/dL LOWHDL < 40 mg/dL HIGHCholesterol in LDL Calc [Mass/Vol] Ordered By: Sheldon Xie on 26-95-8122Ktketruwtit in LDL [Mass/Vol]73 mg/dL0-100 Providence HospitalComment on above:LDL ATP III CLASSIFICATIONLDL less than 100 mg/dL OptimalLDL 100-129 mg/dL Near or above foiazfpJGX697-007 mg/dL Borderline highLDL 160-189 mg/dL HighLDL greater than 189 mg/dL Very high Cholesterol in LDL [Mass/Vol]Cholesterol in LDL [Mass/volume] in Serum or Plasma by calculation0-100Providence HospitalComment on above:LDL ATP III CLASSIFICATIONLDL less than 100 mg/dL OptimalLDL 100-129 mg/dL Near or above lmvjimyPKQ751-277 mg/dL Borderline highLDL 160-189 mg/dL HighLDL greater than 189 mg/dL Very highCholesterol in VLDL Calc [Mass/Vol]Ordered By: Sheldon Xie on 54-24-2596Kcmayfvngid in VLDL [Mass/Vol]25 mg/dLProvidence HospitalCholesterol in VLDL [Mass/Vol]Cholesterol in VLDL [Mass/volume] in Serum or Plasma by calculationProvidence HospitalComplete Blood Count Auto Diffon 69-14-4712Nsme Corpuscular HGB Conc32.9 g/qKSbuocq25.0-35.0[facility] Physician GroupComment on above:Performed By: #### LIPID, CBC, CMP, TSH3 #### [facility] [address] [place] [address] USANRBC%0.0 /100{WBC}Normal0-0.5[facility] Comment on above:Performed By: #### LIPID, CBC, CMP, TSH3 #### [facility] [address] [place] [address] USAComprehensive Metabolic Panelon 84-00-6784Ioeqkbm [Mass/Vol]3.8 g/dLNormal3.5-5.7The [facility] Physician GroupComment on above: Performed By: #### LIPID, CBC, CMP, TSH3 #### [facility] [address] [place] [address] USAGFR/1.73 sq M.predicted MDRD (S/P/Bld) [Vol rate/Area] mL/min/{1.73_m2}NormalThe [facility] Physician GroupComment on above:Performed By: #### LIPID, CBC, CMP, TSH3 #### [facility] [address] [place] [id number] USACreatinine [Mass/volume] in Serum or PlasmaOrdered By: Sheldon Xie on 80-48-4732Xjijjbehwp [Mass/Vol]0.90 mg/dLNormal0.60-1.20Providence HospitalComment on above:Performed By: #### LIPID, CBC, CMP, TSH3 #### [facility] [address] [place] [id number] USACreatinine [Mass/Vol]Creatinine [Mass/volume] in Serum or Plasma0.60-1.20Providence HospitalEosinophils Auto (Bld) [#/Vol] Ordered By: Sheldon Xie on 89-54-5190Rmbyoisotfl (Bld) [#/Vol]Automated eosinophil count0.0-0.45Providence HospitalEosinophils/100 WBC Auto (Bld)Ordered By: Sheldon Xie on 85-91-1118Xtpicaoczke/100 WBC (Bld)Automated eosinophil %.Providence HospitalErythrocyte distribution width Auto (RBC) [Ratio]Ordered By: Sheldon Xie on 13-07-5651Wgudhkmsetx distribution width (RBC) [Ratio]Erythrocyte distribution width [Ratio] by Automated count 11.9-15.3FMercy Health Perrysburg HospitalErythrocyte distribution width [Ratio] by Automated countOrdered By: Sheldon Xie on 66-53-4826Vivaqwesofa distribution width (RBC) [Ratio]14.1 %Yvogfx28.9-15.3FMercy Health Perrysburg HospitalComment on above:Performed By: #### LIPID, CBC, CMP, TSH3 #### [facility] [address] [id number] USAErythrocytes [#/volume] in Blood by Automated countOrdered By: Sheldon Xie on 27-72-8705GNM (Bld) [#/Vol]3.82 10*6/uLNormal3.60-5.00 [facility] HospitalComment on above:Performed By: #### LIPID, CBC, CMP, TSH3 #### [facility] [address] [id number] USAGlobulin Calc (S) [Mass/Vol]Ordered By: Sheldon Xie on 43-35-4953Ncthlomv (S) [Mass/Vol]Serum globulin measurement by calculation (mass/volume)[facility] HospitalGlucose [Mass/volume] in Serum or PlasmaOrdered By: Sheldon Xie on 27-93-8342Ofzsjbj [Mass/Vol]91 mg/pCPxzbzh65-942 [facility] HospitalComment on above:ADA recommended reference rangeRandom Glucose Reference Range is dependent on time and content of last meal. Glucose of more than 200 mg/dL in a nonstressed, ambulatory subject supports the diagnosisof Diabetes Mellitus.Result Comment: Random Glucose Reference Range is dependent on time and content of last meal. Glucose of more than 200 mg/dL in a nonstressed, ambulatory subject supports the diagnosis of Diabetes Mellitus. ADA recommended reference rangePerformed By: #### LIPID, CBC, CMP, TSH3 #### [facility] [address] [id number] USAGlucose [Mass/Vol]Glucose [Mass/volume] in Serum or Plasma 70-100[facility] HospitalComment on above:ADA recommended reference rangeRandom Glucose Reference Range is dependent on time and content of last meal. Glucose of more than 200 mg/dL in a nonstressed, ambulatory subject supports the diagnosisof Diabetes Mellitus.Hematocrit Auto (Bld) [Volume fraction]Ordered By: Sheldon Xie on 11-66-5211Mcxbfivoaq (Bld) [Volume fraction] Hematocrit [Volume Fraction] of Blood by Automated count34.0-46.4FMercy Health Perrysburg HospitalHematocrit [Volume Fraction] of Blood by Automated count Ordered By: Sheldon Xie on 45-20-7039Wzhttlwuje (Bld) [Volume fraction]36.7 % Fjwlgl54.0-46.4FMercy Health Perrysburg HospitalComment on above:Performed By: #### LIPID, CBC, CMP, TSH3 #### [facility] [address] [place] [address] USAHemoglobin [Mass/volume] in BloodOrdered By: Sheldon Xie on 57-02-2409Wagugpiaft (Bld) [Mass/Vol]12.1 g/oEFyemvj01.8-15.4FMercy Health Perrysburg HospitalComment on above:Performed By: #### LIPID, CBC, CMP, TSH3 #### [facility] [address] [place] [address] USAHemoglobin (Bld) [Mass/Vol]Hemoglobin [Mass/volume] in Blood11.8-15.4FMercy Health Perrysburg HospitalLeukocytes [#/volume] corrected for nucleated erythrocytes in Blood by Automated counOrdered By: Sheldon Xie on 43-71-8099WBR corrected for nucl RBC Auto (Bld) [#/Vol]12.9 10*3/uLHigh3.8-11.6 [facility] HospitalWBC corrected for nucl RBC Auto (Bld) [#/Vol] Leukocytes [#/volume] corrected for nucleated erythrocytes in Blood by Automated counHigh3.8-11.6FMercy Health Perrysburg HospitalLeukocytes [#/volume] in Blood by Automated countOrdered By: Sheldon Xie on 26-91-2599AOP (Bld) [#/Vol]12.9 10*3/uLHigh3.8-11.6FMercy Health Perrysburg HospitalComment on above:Performed By: #### LIPID, CBC, CMP, TSH3 #### [facility] [address] [place] [address] USALipid Panelon 10-58-5079MYC Cholesterol,Jtxoninwim96 mg/dL Normal0-100[facility] Physician GroupComment on above:Result Comment: LDL ATP III CLASSIFICATION LDL less than 100 mg/dL Optimal LDL 100-129 mg/dL Near or above optimal LDL 130-159 mg/dL Borderline high LDL 160-189 mg/dL High LDL greater than 189 mg/dL Very highPerformed By: #### LIPID, CBC, CMP, TSH3 #### [facility] [address] [place] [address] USATriglyceride w/Meaucf854 mg/dLNormal0-149[facility] Physician GroupComment on above:Result Comment: TRIG ATP III CLASSIFICATION TRIG less than 150 mg/dL Normal TRIG 150-199 mg/dL Borderline high TRIG 200-500 mg/dL High TRIG greater than 500 mg/dL Very high Standard traceable to the Center for Disease Conrtrol and Prevention (CDC) test method.Performed By: #### LIPID, CBC, CMP, TSH3 #### [facility] [address] [id number] USAVLDL IXAINFKWTZX64 mg/dLNoFormerly [facility] Physician [facility] Medical CenterComment on above:Performed By: #### LIPID, CBC, CMP, TSH3 #### [facility] [address] [id number] USALymphocytes Auto (Bld) [#/Vol]Ordered By: Sheldon Xie on 52-44-0521Npbmhfzivlh (Bld) [#/Vol]Lymphocytes [#/volume] in Blood by Automated count1.00-4.8Providence HospitalLymphocytes [#/volume] in Blood by Automated countOrdered By: Sheldon Xie on 11-93-6918Hpljbrnmgat (Bld) [#/Vol]1.8 10*3/uLNormal1.00-4.8[facility] HospitalComment on above: Performed By: #### LIPID, CBC, CMP, TSH3 #### [facility] [address] [id number] USALymphocytes/100 WBC Auto (Bld)Ordered By: Sheldon Xie on 05-40-0740Aouavpdoffe/100 WBC (Bld)Lymphocytes/100 leukocytes in Blood by Automated count.[facility] HospitalLymphocytes/100 leukocytes in Blood by Automated countOrdered By: Sheldon Xie on 70-07-6698Deiaailyszz/100 WBC (Bld)14.3 %Normal.[facility] HospitalComment on above:Performed By: #### LIPID, CBC, CMP, TSH3 #### [facility] [address] [id number] [facility] Auto (RBC) [Entitic mass]Ordered By: Sheldon Xie on 07-39-2141JGY (RBC) [Entitic mass]MCH [Entitic mass] by Automated count24.7-34.3 [facility] [Entitic mass] by Automated countOrdered By: Sheldon Xie on 07-36-7284DCF (RBC) [Entitic mass]31.6 qhTqmpsv10.7-34.3 [facility] HospitalComment on above:Performed By: #### LIPID, CBC, CMP, TSH3 #### [facility] [address]HC Auto (RBC) [Mass/Vol]Ordered By: Sheldon Xie on 46-68-0107VGJE (RBC) [Mass/Vol]32.9 g/dL32.0-35.0[facility] HospitalHC (RBC) [Mass/Vol]MCHC [Mass/volume] by Automated count32.0-35.0 [facility] HospitalV Auto (RBC) [Entitic vol]Ordered By: Sheldon Xie on 53-71-1245ERH (RBC) [Entitic vol]MCV [Entitic volume] by Automated count 80-100[facility] HospitalV [Entitic volume] by Automated count Ordered By: Sheldon Xie on 60-36-9356RHZ (RBC) [Entitic vol]96.0 iAShxdmc73-059 [facility] HospitalComment on above:Performed By: #### LIPID, CBC, CMP, TSH3 #### [facility] [address] [place] [address] USAMonocytes Auto (Bld) [#/Vol]Ordered By: Sheldon Xie on 39-26-4270Yehfvindg (Bld) [#/Vol]Automated blood monocyte count0.0-0.8Prov[facility] HospitalMonocytes/100 WBC Auto (Bld)Ordered By: Sheldon Xie on 18-26-5171Mpyvwygur/100 WBC (Bld)Automated monocyte %.Providence HospitalNeutrophils Auto (Bld) [#/Vol]Ordered By: Sheldon Xie on 05-15-2024 Neutrophils (Bld) [#/Vol]Neutrophils [#/volume] in Blood by Automated countHigh 1.8-7.7FMercy Health Perrysburg HospitalNeutrophils [#/volume] in Blood by Automated countOrdered By: Sheldon Xie on 53-60-9055Ttsdlkzgdpo (Bld) [#/Vol]9.8 10*3/uLHigh1.8-7.7FMercy Health Perrysburg HospitalComment on above:Performed By: #### LIPID, CBC, CMP, TSH3 #### [facility] [address] [place] [address] USANeutrophils/100 WBC Auto (Bld)Ordered By: Sheldon Xie on 66-24-9153Obfhfzpdcqp/100 WBC (Bld)Automated neutrophil %.Providence HospitalNo Panel InformationOrdered By: Sheldon Xie on 14-49-8156Frrckhmhz GFR (CKD-EPI)> 60.0 mL/MinProvidence HospitalPharmacy Creatinine Clearance (ChemN/AFMercy Health Perrysburg HospitalNucleated erythrocytes [Presence] in Blood by Automated countOrdered By: Sheldon Xie on 05-15-2024 Nucleated RBC Auto Ql (Bld)0.0 /100{WBC}0-0.5FMercy Health Perrysburg Hospital Nucleated RBC Auto Ql (Bld)Nucleated erythrocytes [Presence] in Blood by Automated count0-0.5FMercy Health Perrysburg HospitalPlatelet mean volume Auto (Bld) [Entitic vol]Ordered By: Sheldon Xie on 33-62-5962Sejmnqsk mean volume (Bld) [Entitic vol]Platelet mean volume [Entitic volume] in Blood by Automated count6.3-10.7FMercy Health Perrysburg HospitalPlatelet mean volume [Entitic volume] in Blood by Automated countOrdered By: Sheldon Xie on 82-54-8454Yqkynsqx mean volume (Bld) [Entitic vol]7.8 fLNormal6.3-10.7FMercy Health Perrysburg HospitalComment on above:Performed By: #### LIPID, CBC, CMP, TSH3 #### [facility] [address] [place] [address] USAPlatelets Auto (Bld) [#/Vol]Ordered By: Sheldon Xie on 17-09-7373Shffqlcpy (Bld) [#/Vol]Platelets [#/volume] in Blood by Automated wdpllLpdu588-040CizjwhsihProvidence HospitalPlatelets [#/volume] in Blood by Automated countOrdered By: Sheldon Xie on 00-39-8264Lysyfgbxk (Bld) [#/Vol]465 10*3/wMQaiu961-693IzlzpknweProvidence HospitalComment on above:Performed By: #### LIPID, CBC, CMP, TSH3 #### [facility] [address] [id number] USAPotassium [Moles/volume] in Serum or PlasmaOrdered By: Sheldon Xie on 32-65-6645Vtxxqfdxz [Moles/Vol]4.7 mmol/LNormal3.5-5.1FMercy Health Perrysburg HospitalComment on above:Performed By: #### LIPID, CBC, CMP, TSH3 #### [facility] [address] [place], [place] [id number] USAPotassium [Moles/Vol]Potassium [Moles/volume] in Serum or Plasma3.5-5.1FMercy Health Perrysburg HospitalProtein [Mass/volume] in Serum or PlasmaOrdered By: Sheldon Xie on 95-82-6837Bsxiatw [Mass/Vol]6.7 g/dLNormal 6.4-8.9[facility] HospitalComment on above:Performed By: #### LIPID, CBC, CMP, TSH3 #### [facility] [address] [place], [place] [id number] USAProtein [Mass/Vol]Protein [Mass/volume] in Serum or Plasma 6.4-8.9Providence HospitalRBC Auto (Bld) [#/Vol]Ordered By: Sheldon Xie on 01-32-6869ROI (Bld) [#/Vol]Erythrocytes [#/volume] in Blood by Automated count3.60-5.00[facility] Centererum globulin measurement by calculation (mass/volume)Ordered By: Sheldon Xie on 23-71-4356Tigivynb (S) [Mass/Vol]2.9 g/dLNormalProvidence HospitalComment on above: Performed By: #### LIPID, CBC, CMP, TSH3 #### [facility] [address] [id number] USASerum or plasma albumin/globulin mass ratioOrdered By: Sheldon Xie on 60-54-4185Gzazzel/Globulin [Mass ratio]1.3 {ratio}NormalProvidence HospitalComment on above:Performed By: #### LIPID, CBC, CMP, TSH3 #### [facility] [address] [id number] USAAlbumin/Globulin [Mass ratio]Serum or plasma albumin/globulin mass ratioSouthern Ohio Medical Centererum or plasma anion gap determinationOrdered By: Sheldon Xie on 87-79-4494Kkkeh gap [Moles/Vol] 12.0 mmol/LNormal6.0-15.0[facility] HospitalComment on above: Performed By: #### LIPID, CBC, CMP, TSH3 #### [facility] [address] [place] [address] USAAnion gap [Moles/Vol]Serum or plasma anion gap determination6.0-15.0[facility] Centererum or plasma high density lipoprotein (HDL) cholesterol measurementOrdered By: Sheldon Xie on 77-86-6693Cfxevgjjhxb in HDL [Mass/Vol]38 mg/vXVrebqn57-63BfzhrcwweProvidence HospitalComment on above:HDL CHOL ATP-III CLASSIFICATION Cardiovascular RiskHDL > or equal to 60 mg/dL LOWHDL < 40 mg/dL HIGHResult Comment: HDL CHOL ATP-III CLASSIFICATION Cardiovascular Risk HDL > or equal to 60 mg/dL LOW HDL < 40 mg/dL HIGHPerformed By: #### LIPID, CBC, CMP, TSH3 #### [facility] [address] [id number] USASerum or plasma total cholesterol/high density lipoprotein (HDL) cholesterol mass ratOrdered By: Sheldon Xie on 05-15-2024 Cholesterol.total/Cholesterol in HDL [Mass ratio]3.6 {ratio}Normal<5.0Prov[facility] HospitalComment on above:Performed By: #### LIPID, CBC, CMP, TSH3 #### [facility] [address] [id number] USACholesterol.total/Cholesterol in HDL [Mass ratio]Serum or plasma total cholesterol/high density lipoprotein (HDL) cholesterol mass rat<5.0 [facility] Centerodium [Moles/volume] in Serum or PlasmaOrdered By: Sheldon Xie on 88-28-6720Pstyon [Moles/Vol]141 mmol/AGzwpbk761-509LfbymbcdkProvidence HospitalComment on above:Performed By: #### LIPID, CBC, CMP, TSH3 #### [facility] [address] [place] [address] USASodium [Moles/Vol]Sodium [Moles/volume] in Serum or Plasma 136-145Providence HospitalThyrotropin [Units/volume] in Serum or PlasmaOrdered By: Sheldon Xie on 78-73-7854NHP Qn1.60 m[IU]/LNormal0.45-5.33 [facility] HospitalComment on above:Result Comment: PERFORMED BY: [facility] [address] [id number] PATHOLOGIST TEAM PSYCHOLOGIST JESSE ROMO M.D.Performed By: #### LIPID, CBC, CMP, TSH3 ####[facility] [place] [address] USATSH QnThyrotropin [Units/volume] in Serum or Plasma0.45-5.33[facility] Triglyceride [Mass/volume] in Serum or PlasmaOrdered By: Sheldon Xie on 18-28-0610Kuzhvoodxmjt [Mass/Vol]129 mg/dL0-[address] [place] [address] Comment on above:TRIG ATP III CLASSIFICATIONTRIG less than 150 mg/dL NormalTRIG 150-199 mg/dL Borderline highTRIG 200-500 mg/dL High TRIG greater than 500 mg/dL Very highStandard traceable to the Center for Disease Conrtrol and Prevention (CDC) test method.Triglyceride [Mass/Vol]Triglyceride [Mass/volume] in Serum or Plasma0-149Prov[facility] HospitalComment on above:TRIG ATP III CLASSIFICATIONTRIG less than 150 mg/dL NormalTRIG 150-199 mg/dL Borderline highTRIG 200-500 mg/dL High TRIG greater than 500 mg/dL Very highStandard traceable to the Center for Disease Conrtrol and Prevention (CDC) test method. Urea nitrogen [Mass/volume] in Serum or PlasmaOrdered By: Sheldon Xie on 95-39-2124Whiy nitrogen [Mass/Vol]25 mg/dLNormal03-21Prov[facility] HospitalComment on above:Performed By: #### LIPID, CBC, CMP, TSH3 #### [facility] [address] [place] [address] USAUrea nitrogen [Mass/Vol]Urea nitrogen [Mass/volume] in Serum or Plasma03-21Prov[facility] HospitalWBC Auto (Bld) [#/Vol] Ordered By: Sheldon Xie on 21-46-8524DKD (Bld) [#/Vol]Leukocytes [#/volume] in Blood by Automated countHigh3.8-11.6FMercy Health Perrysburg HospitalEstimated glomerular filtration rate (GFR) non- Americanon 08-96-0450AWK/1.73 sq M.predicted among non-blacks MDRD (S/P/Bld) [Vol rate/Area]54 mL/min/{1.73_m2} Low>=60Providence HospitalLaboratory - Chemistry and Chemistry - challengeon 89-80-3618Fhcgbzs [Mass/Vol]9.5 mg/dL8.5-10.1FMercy Health Perrysburg HospitalCreatinine [Mass/Vol]0.98 mg/dL0.55-1.02Providence HospitalGFR/1.73 sq M.predicted MDRD (S/P/Bld) [Vol rate/Area]mL/min/{1.73_m2} >=60Providence HospitalXR hip LT 1Von 96-51-4488EL hip LT 1V [facility] [address] [place] [address] [place] [address] XRay Report Signed Patient: Aleksandr Sanchez MR#: [id number] : 1940 Acct:[id number] Age/Sex: 83 / F ADM Date: 11/20/23 [facility]: Sheldon Xie DO Copies to: [...] Latonya Cueva M.D.11/20/2023 3:17 PM Dictation Location: [place] [address] Transcribed By: [facility] 11/20/23 151 Dictated By: Latonya Cueva MD 11/20/23 151 Signed By: 11/20/23 1517[facility] Physician GroupAlanine aminotransferase [Enzymatic activity/volume] in Serum or PlasmaOrdered By: Sheldon Xie on 78-18-1589OVG [Catalytic activity/Vol]12 U/L7-52Providence HospitalAlbumin [Mass/volume] in Serum or Plasma by Bromocresol green (BCG) dye binding methoOrdered By: Sheldon Xie on 02-23-4671Unbthri BCG dye [Mass/Vol]4.1 g/dL3.5-5.7FMercy Health Perrysburg HospitalAlkaline phosphatase [Enzymatic activity/volume] in Serum or PlasmaOrdered By: Sheldon Xie on 86-71-8832HSL [Catalytic activity/Vol]54 U/P06-835VcpyifdpxProvidence HospitalAspartate aminotransferase [Enzymatic activity/volume] in Serum or PlasmaOrdered By: Sheldon Xie on 00-83-1689WGK [Catalytic activity/Vol]18 U/A87-22ZupkddqciProvidence HospitalBasophils Auto (Bld) [#/Vol]Ordered By: Sheldon Xie on 09-26-2023 Basophils (Bld) [#/Vol]0.1 10*3/uL0.0-0.2FMercy Health Perrysburg Hospital Basophils/100 WBC Auto (Bld)Ordered By: Sheldon Xie on 84-51-9014Mzkyjtdrb/100 WBC (Bld)1.2 %.Providence HospitalBilirubin.total [Mass/volume] in Serum or PlasmaOrdered By: Sheldon Xie on 23-50-1442Xewtedvdp [Mass/Vol]0.3 mg/dL0.3-1.0Providence HospitalCalcium [Mass/volume] in Serum or PlasmaOrdered By: Sheldon Xie on 98-44-5082Nhlvkqu [Mass/Vol]9.4 mg/dL8.6-10.3 [facility] HospitalCarbon dioxide, total [Moles/volume] in Serum or PlasmaOrdered By: Sheldon Xie on 87-40-8176GN9 [Moles/Vol]29.7 mmol/L21.0-31.0 [facility] HospitalChloride [Moles/volume] in Serum or Plasma Ordered By: Sheldon Xie on 69-07-5200Zqpwtbmn [Moles/Vol]111 mmol/L98-107 [facility] HospitalCholesterol [Mass/volume] in Serum or Plasma Ordered By: Sheldon Xie on 32-74-8574Oyhqmnarlah [Mass/Vol]170 mg/aA461-405 [facility] HospitalComment on above:Chol less than 200 mg/dl low riskChol 201-239 mg/dl borderline riskChol 240 mg/dl and greater high risk Cholesterol in LDL Calc [Mass/Vol]Ordered By: Sheldon Xei on 09-26-2023 Cholesterol in LDL [Mass/Vol]96 mg/dL0-100[facility] Comment on above:LDL ATP III CLASSIFICATIONLDL less than 100 mg/dL OptimalLDL 100-129 mg/dL Near or above fhmpbejPPF394-052 mg/dL Borderline highLDL 160-189 mg/dL HighLDL greater than 189 mg/dL Very highCholesterol in VLDL Calc [Mass/Vol]Ordered By: Sheldon Xie on 18-26-1899Grsnwpfszxd in VLDL [Mass/Vol]22 mg/dLProvidence HospitalCreatinine [Mass/volume] in Serum or PlasmaOrdered By: Sheldon Xie on 68-79-0174Yshvtokgat [Mass/Vol]1.02 mg/dL 0.60-1.20Providence HospitalEosinophils Auto (Bld) [#/Vol]Ordered By: Sheldon Xie on 26-33-1085Cerozxplqpw (Bld) [#/Vol]0.4 10*3/uL0.0-0.45 [facility] HospitalEosinophils/100 WBC Auto (Bld)Ordered By: Sheldon Xie on 62-62-6553Iokvlskyooi/100 WBC (Bld)4.5 %.Providence HospitalErythrocyte distribution width Auto (RBC) [Ratio]Ordered By: Sheldon Xie on 60-65-7138Iycttddorgf distribution width (RBC) [Ratio]14.0 %11.9-15.3FMercy Health Perrysburg HospitalGlobulin Calc (S) [Mass/Vol]Ordered By: Sheldon Xie on 13-66-5416Plshktcm (S) [Mass/Vol]2.5 g/dLProvidence Hospital Glucose [Mass/volume] in Serum or PlasmaOrdered By: Sheldon Xie on 09-26-2023 Glucose [Mass/Vol]92 mg/pY29-774JpimskcimProvidence HospitalComment on above:ADA recommended reference rangeRandom Glucose Reference Range is dependent on time and content of last meal. Glucose of more than 200 mg/dL in a nonstressed, ambulatory subject supports the diagnosisof Diabetes Mellitus. Hematocrit Auto (Bld) [Volume fraction]Ordered By: Sheldon Xie on 09-26-2023 Hematocrit (Bld) [Volume fraction]38.6 %34.0-46.4FMercy Health Perrysburg HospitalHemoglobin [Mass/volume] in BloodOrdered By: Sheldon Xie on 09-26-2023 Hemoglobin (Bld) [Mass/Vol]12.4 g/dL11.8-15.4FMercy Health Perrysburg Hospital Leukocytes [#/volume] corrected for nucleated erythrocytes in Blood by Automated counOrdered By: Sheldon Xie on 18-28-5187RZE corrected for nucl RBC Auto (Bld) [#/Vol]8.1 10*3/uL3.8-11.6FMercy Health Perrysburg HospitalLymphocytes Auto (Bld) [#/Vol]Ordered By: Sheldon Xie on 60-00-9312Kptxbnwdwgc (Bld) [#/Vol]2.1 10*3/uL1.00-4.8Providence HospitalLymphocytes/100 WBC Auto (Bld) Ordered By: Sheldon Xie on 59-94-0010Ehiqmncplkg/100 WBC (Bld)26.4 %.[facility] HospitalH Auto (RBC) [Entitic mass]Ordered By: Sheldon Xie on 51-19-3002SQG (RBC) [Entitic mass]31.2 pg24.7-34.3FMercy Health Perrysburg HospitalMCHC Auto (RBC) [Mass/Vol]Ordered By: Sheldon Xie on 16-23-4034SQLZ (RBC) [Mass/Vol]32.1 g/dL32.0-35.0Providence HospitalMCV Auto (RBC) [Entitic vol]Ordered By: Sheldon Xie on 90-01-9786THK (RBC) [Entitic vol]97.2 fL 80-100Providence HospitalMonocytes Auto (Bld) [#/Vol]Ordered By: Sheldon Xie on 95-45-1705Eisyprjue (Bld) [#/Vol]0.6 10*3/uL0.0-0.8Providence HospitalMonocytes/100 WBC Auto (Bld)Ordered By: Sheldon Xie on 12-56-1505Vekcstvpd/100 WBC (Bld)8.0 %.[facility] Neutrophils Auto (Bld) [#/Vol]Ordered By: Sheldon Xie on 54-20-5705Sthmtpwbipj (Bld) [#/Vol]4.9 10*3/uL1.8-7.7FMercy Health Perrysburg HospitalNeutrophils/100 WBC Auto (Bld)Ordered By: Sheldon Xie on 18-34-7698Rvnqyytikcf/100 WBC (Bld)59.9 %.Providence HospitalNo Panel InformationOrdered By: Sheldon Xie on 55-27-8913Dsbkoxash GFR (CKD-EPI)54.927 mL/MinProvidence Hospital Pharmacy Creatinine Clearance (ChemN/AFMercy Health Perrysburg HospitalNucleated erythrocytes [Presence] in Blood by Automated countOrdered By: Sheldon Xie on 51-72-7829Tcwxjgbhl RBC Auto Ql (Bld)0.1 /100{WBC}0-0.5FMercy Health Perrysburg HospitalPlatelet mean volume Auto (Bld) [Entitic vol]Ordered By: Sheldon Xie on 54-31-3766Psshkewc mean volume (Bld) [Entitic vol]8.4 fL6.3-10.7 Providence HospitalPlatelets Auto (Bld) [#/Vol]Ordered By: Sheldon Xie on 45-95-7334Piazxfcdj (Bld) [#/Vol]324 10*3/dZ040-822XtllzjigaProvidence HospitalPotassium [Moles/volume] in Serum or PlasmaOrdered By: Sheldon Xie on 27-49-1410Otfodwtpe [Moles/Vol]4.8 mmol/L3.5-5.1FMercy Health Perrysburg HospitalProtein [Mass/volume] in Serum or PlasmaOrdered By: Sheldon Xie on 00-80-9257Mgrhjdd [Mass/Vol]6.6 g/dL6.4-8.9Providence HospitalRBC Auto (Bld) [#/Vol]Ordered By: Sheldon Xie on 27-34-1893GSN (Bld) [#/Vol]3.97 10*6/uL3.60-5.00[facility] Centererum or plasma albumin/globulin mass ratioOrdered By: Sheldon Xie on 60-64-7964Agvxvzy/Globulin [Mass ratio]1.6 {ratio}[facility] Centererum or plasma anion gap determinationOrdered By: Sheldon Xie on 64-78-1015Ajcxr gap [Moles/Vol]10.1 mmol/L6.0-15.0[facility] Centererum or plasma high density lipoprotein (HDL) cholesterol measurementOrdered By: Sheldon Xie on 09-26-2023 Cholesterol in HDL [Mass/Vol]52 mg/gB37-60IhlslrsygProvidence Hospital Comment on above:HDL CHOL ATP-III CLASSIFICATION Cardiovascular RiskHDL > or equal to 60 mg/dL LOWHDL < 40 mg/dL HIGHSerum or plasma total cholesterol/high density lipoprotein (HDL) cholesterol mass ratOrdered By: Sheldon Xie on 86-31-4149Hzurndvawra.total/Cholesterol in HDL [Mass ratio]3.3 {ratio}<5.0 [facility] Centerodium [Moles/volume] in Serum or PlasmaOrdered By: Sheldon Xie on 10-58-3972Edbego [Moles/Vol]146 mmol/M362-473HryjgwbwbProvidence HospitalThyrotropin [Units/volume] in Serum or PlasmaOrdered By: Sheldon Xie on 30-33-7194EDK Qn2.47 m[IU]/L0.45-5.33Providence HospitalTriglyceride [Mass/volume] in Serum or PlasmaOrdered By: Sheldon Xie on 89-56-5711Efacynghisof [Mass/Vol]112 mg/dL0-149[facility] Comment on above:TRIG ATP III CLASSIFICATIONTRIG less than 150 mg/dL NormalTRIG 150-199 mg/dL Borderline highTRIG 200-500 mg/dL High TRIG greater than 500 mg/dL Very highStandard traceable to the Center for Disease Conrtrol and Prevention (CDC) test method.Urea nitrogen [Mass/volume] in Serum or PlasmaOrdered By: Sheldon Xie on 72-75-5284Sxsq nitrogen [Mass/Vol]30 mg/dL7-Providence HospitalWBC Auto (Bld) [#/Vol]Ordered By: Sheldon Xie on 13-35-9849XSA (Bld) [#/Vol]8.1 10*3/uL3.8-11.6FMercy Health Perrysburg HospitalAlanine aminotransferase [Enzymatic activity/volume] in Serum or PlasmaOrdered By: Sheldon Xie on 28-78-9476XNX [Catalytic activity/Vol]13 U/L7-52Providence HospitalAlbumin [Mass/volume] in Serum or Plasma by Bromocresol green (BCG) dye binding methoOrdered By: Sheldon Xie on 96-99-2393Wlnrotw BCG dye [Mass/Vol]4.2 g/dL3.5-5.7FMercy Health Perrysburg HospitalAlkaline phosphatase [Enzymatic activity/volume] in Serum or PlasmaOrdered By: Sheldon Xie on 85-91-6980BVE [Catalytic activity/Vol]55 U/U60-824KchixutgsProvidence HospitalAspartate aminotransferase [Enzymatic activity/volume] in Serum or Plasma Ordered By: Sheldon Xie on 19-25-6306WSC [Catalytic activity/Vol]20 U/L13-39 [facility] HospitalBasophils Auto (Bld) [#/Vol]Ordered By: Sheldon Xie on 91-16-1013Hmjreqcpq (Bld) [#/Vol]0.1 10*3/uL0.0-0.2FMercy Health Perrysburg HospitalBasophils/100 WBC Auto (Bld)Ordered By: Sheldon Xie on 05-24-2023 Basophils/100 WBC (Bld)1.0 %.[facility] HospitalBilirubin.total [Mass/volume] in Serum or PlasmaOrdered By: Sheldon Xie on 45-07-4389Lfnbzixpm [Mass/Vol]0.5 mg/dL0.3-1.0Providence HospitalCalcium [Mass/volume] in Serum or PlasmaOrdered By: Sheldon Xie on 12-68-6357Rhgcivb [Mass/Vol]9.9 mg/dL8.6-10.3FMercy Health Perrysburg HospitalCarbon dioxide, total [Moles/volume] in Serum or PlasmaOrdered By: Sheldon Xie on 87-12-5229XC4 [Moles/Vol]32.5 mmol/L21.0-31.0Prov[facility] HospitalChloride [Moles/volume] in Serum or PlasmaOrdered By: Sheldon Xie on 24-37-4031Jzzwwwjt [Moles/Vol]108 mmol/R98-587EzixlfcmjProvidence HospitalCholesterol [Mass/volume] in Serum or PlasmaOrdered By: Sheldon Xie on 68-15-9555Ylrfbhfrxsx [Mass/Vol]176 mg/fF108-927OpvveylyzProvidence HospitalComment on above:Chol less than 200 mg/dl low riskChol 201-239 mg/dl borderline riskChol 240 mg/dl and greater high riskCholesterol in LDL Calc [Mass/Vol]Ordered By: Sheldon Xie on 72-11-4744Tndnikzoyru in LDL [Mass/Vol]96 mg/dL0-100Providence HospitalComment on above:LDL ATP III CLASSIFICATIONLDL less than 100 mg/dL OptimalLDL 100-129 mg/dL Near or above iunrwmqXLE853-699 mg/dL Borderline highLDL 160-189 mg/dL HighLDL greater than 189 mg/dL Very highCholesterol in VLDL Calc [Mass/Vol]Ordered By: Sheldon Xie on 90-08-0662Zqxhsihjuhm in VLDL [Mass/Vol]23 mg/dLProvidence HospitalCreatinine [Mass/volume] in Serum or PlasmaOrdered By: Sheldon Xie on 55-23-7817Bonhphqcba [Mass/Vol]0.92 mg/dL0.60-1.20Prov[facility] HospitalEosinophils Auto (Bld) [#/Vol] Ordered By: Sheldon Xie on 64-87-3091Gudtrvpfgny (Bld) [#/Vol]0.3 10*3/uL0.0-0.45 [facility] HospitalEosinophils/100 WBC Auto (Bld)Ordered By: Sheldon Xie on 20-33-0050Iciiupydjff/100 WBC (Bld)3.9 %.Providence HospitalErythrocyte distribution width Auto (RBC) [Ratio]Ordered By: Sheldon Xie on 45-54-0938Sejzhmcjkob distribution width (RBC) [Ratio]13.6 %11.9-15.3FMercy Health Perrysburg HospitalGlobulin Calc (S) [Mass/Vol]Ordered By: Sheldon Xie on 82-54-3496Eiqzckgh (S) [Mass/Vol]2.5 g/dLProvidence Hospital Glucose [Mass/volume] in Serum or PlasmaOrdered By: Sheldon Xie on 05-24-2023 Glucose [Mass/Vol]90 mg/bF61-098HjgktykzaProvidence HospitalComment on above:ADA recommended reference rangeRandom Glucose Reference Range is dependent on time and content of last meal. Glucose of more than 200 mg/dL in a nonstressed, ambulatory subject supports the diagnosisof Diabetes Mellitus. Hematocrit Auto (Bld) [Volume fraction]Ordered By: Sheldon Xie on 05-24-2023 Hematocrit (Bld) [Volume fraction]39.0 %34.0-46.4FMercy Health Perrysburg HospitalHemoglobin [Mass/volume] in BloodOrdered By: Sheldon Xie on 05-24-2023 Hemoglobin (Bld) [Mass/Vol]12.7 g/dL11.8-15.4FMercy Health Perrysburg Hospital Leukocytes [#/volume] corrected for nucleated erythrocytes in Blood by Automated counOrdered By: Sheldon Xie on 57-45-8898YXB corrected for nucl RBC Auto (Bld) [#/Vol]7.3 10*3/uL3.8-11.6FMercy Health Perrysburg HospitalLymphocytes Auto (Bld) [#/Vol]Ordered By: Sheldon Xie on 20-98-4894Gwrcmxsoiep (Bld) [#/Vol]1.8 10*3/uL1.00-4.8Prov[facility] HospitalLymphocytes/100 WBC Auto (Bld) Ordered By: Sheldon Xie on 20-46-5481Uydhyfmzggy/100 WBC (Bld)24.8 %.Providence HospitalMCH Auto (RBC) [Entitic mass]Ordered By: Sheldon Xie on 54-98-5612CIA (RBC) [Entitic mass]31.8 pg24.7-34.3FMercy Health Perrysburg HospitalMCHC Auto (RBC) [Mass/Vol]Ordered By: Sheldon Xie on 75-74-5394QOAB (RBC) [Mass/Vol]32.7 g/dL32.0-35.0Prov[facility] HospitalMCV Auto (RBC) [Entitic vol]Ordered By: Sheldon Xie on 39-85-7721CAR (RBC) [Entitic vol]97.2 fL 80-100Providence HospitalMonocytes Auto (Bld) [#/Vol]Ordered By: Sheldon Xie on 18-79-2622Nwwudauvd (Bld) [#/Vol]0.7 10*3/uL0.0-0.8Prov[facility] HospitalMonocytes/100 WBC Auto (Bld)Ordered By: Sheldon Xie on 40-48-5078Fypdavggn/100 WBC (Bld)9.5 %.[facility] Neutrophils Auto (Bld) [#/Vol]Ordered By: Sheldon Xie on 93-42-5774Lyzxqxkiwff (Bld) [#/Vol]4.4 10*3/uL1.8-7.7FMercy Health Perrysburg HospitalNeutrophils/100 WBC Auto (Bld)Ordered By: Sheldon Xie on 64-24-6562Bydviaflhmm/100 WBC (Bld)60.8 %.Providence HospitalNo Panel InformationOrdered By: Sheldon Xie on 29-96-3889Xnqsbzmco GFR (CKD-EPI)> 60.0 mL/MinProvidence Hospital Pharmacy Creatinine Clearance (ChemN/AFMercy Health Perrysburg HospitalNucleated erythrocytes [Presence] in Blood by Automated countOrdered By: Sheldon Xie on 76-95-6440Jjvfuqrpv RBC Auto Ql (Bld)0.1 /100{WBC}0-0.5FMercy Health Perrysburg HospitalPlatelet mean volume Auto (Bld) [Entitic vol]Ordered By: Sheldon Xie on 66-88-4148Sadywtei mean volume (Bld) [Entitic vol]8.5 fL6.3-10.7 Providence HospitalPlatelets Auto (Bld) [#/Vol]Ordered By: Sheldon Xie on 32-59-6776Jvhzdxutt (Bld) [#/Vol]303 10*3/iG835-692BltpnjdpyProvidence HospitalPotassium [Moles/volume] in Serum or PlasmaOrdered By: Sheldon Xie on 50-04-2345Hjgaiylvf [Moles/Vol]4.5 mmol/L3.5-5.1FMercy Health Perrysburg HospitalProtein [Mass/volume] in Serum or PlasmaOrdered By: Sheldon Xie on 95-49-1954Vngkvxw [Mass/Vol]6.7 g/dL6.4-8.9Providence HospitalRBC Auto (Bld) [#/Vol]Ordered By: Sheldon Xie on 56-82-3351CNF (Bld) [#/Vol]4.01 10*6/uL3.60-5.00[facility] [place] [facility] Centererum or plasma albumin/globulin mass ratioOrdered By: Sheldon Xie on 05-64-9688Chsdpgm/Globulin [Mass ratio]1.7 {ratio}[facility] [place] [facility] Centererum or plasma anion gap determinationOrdered By: Sheldon Xie on 57-49-5000Grmdx gap [Moles/Vol]8.0 mmol/L6.0-15.0[facility] [place] [facility] Centererum or plasma high density lipoprotein (HDL) cholesterol measurementOrdered By: Sheldon Xie on 05-24-2023 Cholesterol in HDL [Mass/Vol]57 mg/eS04-95UakexiewmProvidence Hospital Comment on above:HDL CHOL ATP-III CLASSIFICATION Cardiovascular RiskHDL > or equal to 60 mg/dL LOWHDL < 40 mg/dL HIGHSerum or plasma total cholesterol/high density lipoprotein (HDL) cholesterol mass ratOrdered By: Sheldon Xie on 04-52-6791Euddnuqsfyt.total/Cholesterol in HDL [Mass ratio]3.1 {ratio}<5.0 [facility] [place] [facility] Centerodium [Moles/volume] in Serum or PlasmaOrdered By: Sheldon Xie on 97-59-2441Vnonps [Moles/Vol]144 mmol/E758-789HlhlrqnmbProvidence HospitalThyrotropin [Units/volume] in Serum or PlasmaOrdered By: Sheldon Xie on 47-65-4226JSA Qn2.85 m[IU]/L0.45-5.33Providence HospitalTriglyceride [Mass/volume] in Serum or PlasmaOrdered By: Sheldon Xie on 50-01-7891Icyltjgtgatc [Mass/Vol]115 mg/dL0-149[facility] Comment on above:TRIG ATP III CLASSIFICATIONTRIG less than 150 mg/dL NormalTRIG 150-199 mg/dL Borderline highTRIG 200-500 mg/dL High TRIG greater than 500 mg/dL Very highStandard traceable to the Center for Disease Conrtrol and Prevention (CDC) test method.Urea nitrogen [Mass/volume] in Serum or PlasmaOrdered By: Sheldon Xie on 90-61-4891Valj nitrogen [Mass/Vol]29 mg/dL7-25Providence HospitalWBC Auto (Bld) [#/Vol]Ordered By: Sheldon Xie on 82-06-3340TBR (Bld) [#/Vol]7.3 10*3/uL3.8-11.6FMercy Health Perrysburg HospitalCALCIUMon 06-22-5630Xuajnfo [Mass/Vol]9.4 mg/dLNormal8.5-10.1The Mercy Health Perrysburg Hospitalment on above:Performed By: #### [place] #### [facility] [address] [place] [address] Dr. Mayank Bledsoe 47-33-0649Dbbzsriymy [Mass/Vol]1.06 mg/dLCritically high0.55-1.02[facility] on above:Performed By: #### [place] #### [facility] [address] [place] [address] Dr. Talley ChangEGFR-AF VINCENTIAN=60Normal>=60The Mercy Health Perrysburg Hospitalment on above:Performed By: #### [place] #### [facility] [address] [place] [address] Dr. Mayank MadrigalGFR-NON AF SEIDDNGL64 mL/min/1.19p3Xfiifiivqn low>=60[facility] on above:Performed By: #### [place] #### [facility] [address] [place] [address] Dr. Mayank KhanCALCIUMon 07-62-2830Ictsmpv [Mass/Vol]9.8 mg/dLNormal8.5-10.1[facility] on above:Performed By: #### [place] #### [facility] [address] [place] [address] Dr. Mayank Bledsoe 65-00-2369Yiovvjjhvo [Mass/Vol]0.77 mg/dLNormal 0.55-1.02[facility] on above:Performed By: #### [place] #### [facility] [address] [place] [address] Dr. Talley ChangEGFR-AF VINCENTIAN>60Normal>=60The [facility] HospitalComment on above:Performed By: #### [place] #### [facility] [address] [place], [place] [address] Dr. Mayank MadrigalGFR-NON AF VINCENTIAN>60Normal>=60The [facility] HospitalComment on above:Performed By: #### [place], [place] #### [facility] [address] [place], [place] [address] Dr. Talley ChangBasophils Auto (Bld) [#/Vol]Ordered By: Sheldon Xie on 09-29-2022 Basophils (Bld) [#/Vol]0.1 10*3/uL0.0-0.2FMercy Health Perrysburg Hospital Basophils/100 WBC Auto (Bld)Ordered By: Sheldon Xie on 51-28-5769Gelozjatv/100 WBC (Bld)0.9 %.Providence HospitalBody fluid albumin measurement (mass/volume)Ordered By: Sheldon Xie on 07-27-5631Tqeurjr (Body fld) [Mass/Vol] 4.2 g/dL3.2-5.5FMercy Health Perrysburg HospitalCholesterol [Mass/volume] in Serum or PlasmaOrdered By: Sheldon Xie on 99-82-3717Amfrcyblzkf [Mass/Vol]182 mg/bH668-566QadiepoofProvidence HospitalComment on above:Chol less than 200 mg/dl low riskChol 201-239 mg/dl borderline riskChol 240 mg/dl and greater high riskCholesterol in LDL Calc [Mass/Vol]Ordered By: Sheldon Xie on 09-29-2022 Cholesterol in LDL [Mass/Vol]105 mg/dL0-100[facility] Comment on above:LDL ATP III CLASSIFICATIONLDL less than 100 mg/dL OptimalLDL 100-129 mg/dL Near or above ncmdkftVYQ741-436 mg/dL Borderline highLDL 160-189 mg/dL HighLDL greater than 189 mg/dL Very highCholesterol in VLDL Calc [Mass/Vol]Ordered By: Sheldon Xie on 36-00-5999Pjnmpgxsshx in VLDL [Mass/Vol]17 mg/dLProvidence HospitalComplete Blood Count Auto Diffon 51-61-8323Kodryplgv (Bld) [#/Vol]0.800791014 10*3/uLNormal0.0-0.2 10*3/[facility] Other Basophils/100 WBC (Bld)0.900 %. %Only-apartments Other Eosinophils (Bld) [#/Vol]0.278205933 10*3/uLNormal0.0- 0.45 10*3/[facility] Other Eosinophils/100 WBC (Bld)2.700 %. %Only-apartments Other Erythrocyte distribution width (RBC) [Ratio]14.400 % Huwqmy27.9-15.3 %Only-apartments Other Hematocrit (Bld) [Volume fraction]39.000 %Snossx23.0- 46.4 %Only-apartments Other Hemoglobin (Bld) [Mass/Vol]12.076296 g/wSWmnisl32.8- 15.4 g/dLNoInventergy Other Lymphocytes (Bld) [#/Vol]1.908617359 10*3/uLNormal 1.00-4.8 10*3/[facility] Other Lymphocytes/100 WBC (Bld)25.800 %. %Only-apartments Other MCH (RBC) [Entitic mass]31.1000 syJgctck35.7-34.3 pg Only-apartments Other MCV (RBC) [Entitic vol]97.1000 xOBebzba55-137 fLOnly-apartments Other Monocytes (Bld) [#/Vol]0.480480087 10*3/uLNormal0.0- 0.8 10*3/[facility] [employer] Other Monocytes/100 WBC (Bld)8.200 %. %Only-apartments Other Neutrophils (Bld) [#/Vol]4.233299375 10*3/uLNormal1.8- 7.7 10*3/[facility] Other Neutrophils/100 WBC (Bld)62.400 %. %Only-apartments Other Platelet mean volume (Bld) [Entitic vol]8.2000 fL Normal6.3-10.7 fLSanta Fe [place] Other WBC (Bld) [#/Vol]7.883064224 10*3/uLNormal3.8-11.6 10*3/[place] Other Complete Blood Count Auto Diff7.4 10*3/uLNormal3.8- 11.6 10*3/[place] Other Complete Blood Count Auto Diff32.1 g/fNNjyuvx61.0-35.0 g/dLParents Journey [employer] [employer] Other Complete Blood Count Auto Diff0.1 /100{WBC}Normal0-0.5 /100{WBC}Only-apartments Other Comprehensive Metabolic Panelon 45-07-6790Gmrocjg [Mass/Vol]4.556063 g/dLNormal3.2-5.5 g/dLParents Journey [employer] [employer] Other ALT [Catalytic activity/Vol]16 U/YOokhgr53-70 U/LNresearch psychiatric center [place] [employer] Other Bilirubin [Mass/Vol]0.7250592 mg/dLNormal0.3-1.2 mg/dL [place] [employer] [employer] Other Calcium [Mass/Vol]9.8169505 mg/dLNormal8.2-10.2 mg/dL [facility] [employer] environment Other CO2 [Moles/Vol]24.90143017 mmol/RRkzsea85.0-30.0 mmol/LNresearch psychiatric center [employer] [employer] Other Creatinine [Mass/Vol]0.18835878 mg/dLNormal0.44-1.03 mg/dLSanta Fe [place] [employer] Other Potassium [Moles/Vol]4.26301404 mmol/LNormal3.5-5.1 mmol/LNresearch psychiatric center [employer] [employer] Other Protein [Mass/Vol]6.760976 g/dLNormal6.1-7.9 g/dLSanta Fe [place] [employer] Other Comprehensive Metabolic Panel> 60[place] [place] [employer] Other Comprehensive Metabolic Panel2.5 g/dLSanta Fe [employer] [employer] Other Creatinine and Glomerular filtration rate.predicted panel (S/P/Bld)Ordered By: Sheldon Xie on 05-90-4870Febqghtyuq [Mass/Vol]0.84 mg/dL0.44-1.03Providence HospitalEosinophils Auto (Bld) [#/Vol] Ordered By: Sheldon Xie on 66-92-3510Ifqheqlhoth (Bld) [#/Vol]0.2 10*3/uL0.0-0.45 [facility] HospitalEosinophils/100 WBC Auto (Bld)Ordered By: Sheldon Xie on 54-53-4330Wtzkcrzuqdz/100 WBC (Bld)2.7 %.Providence HospitalErythrocyte distribution width Auto (RBC) [Ratio]Ordered By: Sheldon Xie on 36-42-7096Kbnpcmackyd distribution width (RBC) [Ratio]14.4 %11.9-15.3FMercy Health Perrysburg HospitalErythrocytes [#/volume] in Blood by Automated count Ordered By: Sheldon Xie on 32-93-5154DBE (Bld) [#/Vol]4.02 10*6/uL3.60-5.00 [facility] HospitalEstimated glomerular filtration rate (GFR) non- AmericanOrdered By: Sheldon Xie on 31-90-8412JHT/1.73 sq M.predicted among non-blacks MDRD (S/P/Bld) [Vol rate/Area]> 60 mL/MinProvidence HospitalGlobulin Calc (S) [Mass/Vol]Ordered By: Sheldon Xie on 09-29-2022 Globulin (S) [Mass/Vol]2.5 g/dLProvidence HospitalHematocrit Auto (Bld) [Volume fraction]Ordered By: Sheldon Xie on 28-57-5343Zouxznwdef (Bld) [Volume fraction]39.0 %34.0-46.4FMercy Health Perrysburg HospitalHemoglobin [Mass/volume] in BloodOrdered By: Sheldon Xie on 01-96-0957Utyhvhgsze (Bld) [Mass/Vol]12.5 g/dL11.8-15.4FMercy Health Perrysburg HospitalLeukocytes [#/volume] corrected for nucleated erythrocytes in Blood by Automated coun Ordered By: Sheldon Xie on 21-81-5186CUA corrected for nucl RBC Auto (Bld) [#/Vol]7.4 10*3/uL3.8-11.6FMercy Health Perrysburg HospitalLipid Panelon 44-56-7722Mmwjjmhnlpb in LDL Elph Qn105 mg/dLHigh0-100 mg/dLNochristian hospital [place] [employer] Other Lipid Panel89 mg/aYOmlxjh83-979 mg/dLNoInventergy Other Lipid Panel17 mg/dLNoInventergy Other Lymphocytes Auto (Bld) [#/Vol]Ordered By: Sheldon Xie on 42-55-9533Afsfabeycfc (Bld) [#/Vol]1.9 10*3/uL1.00-4.8Providence HospitalLymphocytes/100 WBC Auto (Bld)Ordered By: Sheldon Xie on 09-29-2022 Lymphocytes/100 WBC (Bld)25.8 %.[facility] HospitalH Auto (RBC) [Entitic mass]Ordered By: Sheldon Xie on 30-95-2564DHQ (RBC) [Entitic mass]31.1 pg24.7-34.3FMercy Health Perrysburg HospitalMCHC Auto (RBC) [Mass/Vol]Ordered By: Sheldon Xie on 22-18-0505YAKA (RBC) [Mass/Vol]32.1 g/dL32.0-35.0Providence HospitalMCV Auto (RBC) [Entitic vol]Ordered By: Sheldon Xie on 11-04-7714VSR (RBC) [Entitic vol]97.1 tR09-341BgswripizProvidence Hospital Monocytes Auto (Bld) [#/Vol]Ordered By: Sheldon Xie on 95-75-4076Ouhhuegxt (Bld) [#/Vol]0.6 10*3/uL0.0-0.8Providence HospitalMonocytes/100 WBC Auto (Bld)Ordered By: Sheldon Xie on 17-38-1620Tsatvcfdj/100 WBC (Bld)8.2 %.Providence HospitalNeutrophils Auto (Bld) [#/Vol]Ordered By: Sheldon Xie on 40-96-0374Swvbjktacla (Bld) [#/Vol]4.7 10*3/uL1.8-7.7FMercy Health Perrysburg HospitalNeutrophils/100 WBC Auto (Bld)Ordered By: Sheldon Xie on 09-29-2022 Neutrophils/100 WBC (Bld)62.4 %.Providence HospitalNo Panel InformationOrdered By: Sammie Duran on 47-40-534123710814-Vqzfktk Vitamin D Total 74.2 ng/hT36-249RriefnhgsProvidence HospitalComment on above:VITAMIN D STATUS 25(OH)VITAMIN D RANGE (ng/mL) Deficient <20 Insufficient 20 to <52Nxyosxmlwi09 to 100Reference: Baldo BACK,Raina LORENZO, Juan HOLLOWAY, et al. Evaluation,treatment, and prevention of vitamin D deficiency; an Endocrine Society clinical practice guideline. JCEM. 2010; 96(7):1911-30.No Panel InformationOrdered By: Sheldon Xie on 40-09-4277Opeemxfvr GFR ()> 60 mL/MinProvidence HospitalComment on above:GFR estimated reference range: According to KDOQI guidelines, <60 ml/min/1.73m2 is sufficient todiagnose a patient with chronic kidney disease.Pharmacy Creatinine Clearance (ChemN/AFMercy Health Perrysburg HospitalNucleated erythrocytes [Presence] in Blood by Automated countOrdered By: Sheldon Xie on 48-90-9900Taweliqax RBC Auto Ql (Bld)0.1 /100{WBC}0-0.5FMercy Health Perrysburg HospitalParathyroid Hormone Intacton 69-40-9341Bxvwqrjskhi Hormone Wooxal52.1 pg/bQWkqlff47-76 pg/mLNGrey Area Other Platelet mean volume Auto (Bld) [Entitic vol]Ordered By: Sheldon Xie on 37-73-7878Ufklqaju mean volume (Bld) [Entitic vol]8.2 fL 6.3-10.7FMercy Health Perrysburg HospitalPlatelets [#/volume] in Blood by Automated countOrdered By: Sheldon Xie on 90-51-0143Ccgduuqrc (Bld) [#/Vol]285 10*3/aT411-211JzkgpjdmdProvidence HospitalProtein [Mass/volume] in Serum or PlasmaOrdered By: Sheldon Xie on 97-46-6154Wrhirmu [Mass/Vol]6.7 g/dL6.1-7.9 [facility] [place] [facility] Centererum or plasma alanine aminotransferase measurement without P-5'-P (enzymatic activiOrdered By: Sheldon Xie on 09-29-2022 ALT No additional P-5'-P [Catalytic activity/Vol]16 U/K06-12BymnwqbtvSouthern [place] Medical Centererum or plasma albumin/globulin mass ratioOrdered By: Sheldon Xie on 19-80-2166Clttqhc/Globulin [Mass ratio]1.7 {ratio}[facility] [place] [facility] Centererum or plasma alkaline phosphatase measurement (enzymatic activity/volume)Ordered By: Sheldon Xie on 15-62-7268JVE [Catalytic activity/Vol] 41 U/H73-91RxyktpvptSouthern [place] Medical Centererum or plasma anion gap determinationOrdered By: Sheldon Xie on 22-80-9695Tkinx gap [Moles/Vol]14.1 mmol/L6.0-15.0[facility] [place] [facility] Centererum or plasma aspartate aminotransferase measurement (enzymatic activity/volume)Ordered By: Sheldon Xie on 50-43-3294XCL [Catalytic activity/Vol]22 U/U03-21JchmjntkgSouthern [place] Medical Centererum or plasma calcium measurement (mass/volume)Ordered By: Sheldon Xie on 77-15-1417Tzldmdi [Mass/Vol]9.7 mg/dL8.2-10.2FMercy Health Perrysburg Hospital Serum or plasma chloride measurement (moles/volume)Ordered By: Sheldon Xie on 91-16-2968Vngfbnwu [Moles/Vol]105 mmol/Z99-214JkeliinswProvidence Hospital Serum or plasma glucose measurement (mass/volume)Ordered By: Sheldon Xie on 16-70-9688Htcbalc [Mass/Vol]78 mg/iE05-029PinpqpznuProvidence Hospital Comment on above:ADA recommended reference rangeRandom Glucose Reference Range is dependent on time and content of last meal. Glucose of more than 200 mg/dL in a nonstressed, ambulatory subject supports the diagnosisof Diabetes Mellitus. Serum or plasma high density lipoprotein (HDL) cholesterol measurementOrdered By: Sheldon Xie on 99-35-0789Nwnklvfuetr in HDL [Mass/Vol]59 mg/uX65-74HjlnatglaProvidence HospitalComment on above:HDL CHOL ATP-III CLASSIFICATION Cardiovascular RiskHDL > or equal to 60 mg/dL LOWHDL < 40 mg/dL HIGHSerum or plasma intact parathyroid hormone measurement (mass/volume)Ordered By: Sammie Duran on 27-39-5631Ryjitoaupq.intact [Mass/Vol]50.1 pg/oY62-63TwhibyrhrSouthern [place] Medical Centererum or plasma potassium measurement (moles/volume) Ordered By: Sheldon Xie on 58-08-0506Ruhosncrc [Moles/Vol]4.6 mmol/L3.5-5.1 [facility] [place] [facility] Centererum or plasma sodium measurement (moles/volume)Ordered By: Sheldon Xie on 49-35-1583Iskeyl [Moles/Vol]139 mmol/L 136-146[facility] [place] [facility] Centererum or plasma total bilirubin measurement (mass/volume)Ordered By: Sheldon Xie on 21-67-9659Gorrponkk [Mass/Vol]0.7 mg/dL0.3-1.2FKettering Health Prebleerum or plasma total carbon dioxide measurement (moles/volume)Ordered By: Sheldon Xie on 09-29-2022 CO2 [Moles/Vol]24.5 mmol/L22.0-30.0[facility] [place] [facility] Centererum or plasma total cholesterol/high density lipoprotein (HDL) cholesterol mass rat Ordered By: Sheldon Xie on 56-50-7882Gwchqyvrnqh.total/Cholesterol in HDL [Mass ratio]3.1 {ratio}<5.0[facility] [place] [facility] Centererum or plasma urea nitrogen measurement (mass/volume)Ordered By: Sheldon Xie on 72-32-8855Djik nitrogen [Mass/Vol]23 mg/dL9-23Providence HospitalTS DL <= 0.005 mIU/L QnOrdered By: Sheldon Xie on 06-37-2905TUF Qn1.86 m[IU]/L0.45-5.33Providence HospitalThyroid Stimulating Hormoneon 97-58-5617UTJ Qn 1.57152547327 m[IU]/LNormal0.45-5.33 u[iU]/[facility] [employer] Other Triglyceride [Mass/volume] in Serum or PlasmaOrdered By: Sheldon Xie on 10-11-7366Xcdeoelvjwwm [Mass/Vol]89 mg/dE06-655RmihcpjinProvidence HospitalComment on above:TRIG ATP III CLASSIFICATIONTRIG less than 150 mg/dL NormalTRIG 150-199 mg/dL Borderline highTRIG 200-500 mg/dL High TRIG greater than 500 mg/dL Very highStandard traceable to the Center for Disease Conrtrol and Prevention (CDC) test method.Vitamin D 25 Hydroxy Totalon 88-67-7181Pdidfff D 25 Hydroxy Total74.2 ng/cTOipovr73-641 ng/mLNorth Coast [place] environment Other WBC Auto (Bld) [#/Vol]Ordered By: Sheldon Xie on 54-62-3231XLP (Bld) [#/Vol]7.4 10*3/uL3.8-11.6FMercy Health Perrysburg Hospital XR foot RT min 3V*on 36-27-5923XF foot RT min 3V*[facility] [employer] environment Other XR foot RT min 3V*[facility] [place] ffk environment Other XR foot RT min 3V*[address] [place] [address] ffk environment Other XR foot RT min 3V*[place] [address] [place] [address] ffk environment Other XR foot RT min 3V*[facility] ffk environment Other XR foot RT min 3V*[facility] ffk environment Other XR foot RT min 3V*Patient: Aleksandr Sanchez MR[id number] ffk environment Other XR foot RT min 3V*[id number] [employer] Other XR foot RT min 3V*: 1940 Acct:[id number] Coast ffk environment Other XR foot RT min 3V*Age/Sex: 82 / F ADM Date: 09/15/22 [facility] [employer] environment Other XR foot RT min 3V*[place] [facility]: Type: [facility] [employer] [employer] Other XR foot RT min 3V*Attending Dr: Sammie Duran NP-[facility] ff[employer] environment Other XR foot RT min 3V*Copies to: ANJEL Richards [facility] ff[employer] environment Other XR foot RT min 3V*Ordering Provider: SALLIE Richards-[facility] [employer] environment Other XR foot RT min 3V*Date of Service: 09/15/22[place] [employer] [employer] Other XR foot RT min 3V* XR/XR foot RT min 3V*: S92.351[facility] ffk environment Other XR foot RT min 3V*XR foot RT min 3V* 09/15/2022 1:17 PM [place] [employer] [employer] Other XR foot RT min 3V*SIGNS AND SYMPTOMS: Follow-up with mildly displaced fifth metatarsal fractureSanta Fe [place] [employer] Other XR foot RT min 3V*PROTOCOL: Frontal, lateral, and oblique radiographs of the right footSanta Fe [place] [employer] Other XR foot RT min 3V*COMPARISON: 09/01/2022[place] [employer] Other XR foot RT min 3V*FINDINGS:Only-apartments Other XR foot RT min 3V*There is redemonstration of an obliquely oriented fracture of the proximal shaft of the fifthSanta Fe [employer] [employer] Other xr foot RT min 3V*metatarsal. There is no significant interval healing. No change in alignment. No additionalNochrist[facility] [place] [facility] Other XR foot RT min 3V*fractures. Findings suggest a remote healed fracture of the second metatarsal.Only-apartments Other XR foot RT min 3V* XR/XR foot RT min 3V*Only-apartments Other XR foot RT min 3V*IMPRESSION:Only-apartments Other XR foot RT min 3V*metatarsal. There is no significant interval healing. No change in alignment.Only-apartments Other XR foot RT min 3V*Impression dictated by: Gray Mukherjee M.D.09/15/2022 2:05 PMNVass[facility] Other XR foot RT min 3V*Dictation Location: [id number] [facility] environment Other XR foot RT min 3V*Transcribed By: BRANDON 09/15/[address] [place] [address] ffk environment Other XR foot RT min 3V*Dictated By: Gray Mukherjee II, MD 09/15/[address] [place] [address] ffk environment Other XR foot RT min 3V*Signed By:[facility] Other XR foot RT min 3V*09/15/[address] [place] [address] [facility] Other XR foot RT min 3V*on [id number] foot RT min 3V* [facility] ffk environment Other XR foot RT min 3V*[facility] ffk environment Other XR foot RT min 3V*[address] [place] [address] [facility] Other XR foot RT min 3V*[place], [place] [address] [facility] [facility] Other XR foot RT min 3V*XRay ReportSanta Fe [employer] [employer] Other XR foot RT min 3V*SignedSanta Fe [place] [employer] Other XR foot RT min 3V*Patient: Aleksandr Sanchez MR#: [id number] [employer] Other XR foot RT min 3V*[id number] [employer] [employer] Other XR foot RT min 3V*: 1940 Acct:[id number] [employer] Other XR foot RT min 3V*Age/Sex: 82 / F ADM Date: 09/01/22 Only-apartments Other XR foot RT min 3V*[facility]: Type: [facility] ffk environment Other XR foot RT min 3V*Attending Dr: Sheldon Xie [facility] [employer] Other XR foot RT min 3V*Copies to: Sheldon Xie,[facility] [employer] Other XR foot RT min 3V*Ordering Provider: Sheldon Xie DO Only-apartments Other XR foot RT min 3V*Date of Service: 09/01/22[place] [employer] Other XR foot RT min 3V* XR/XR foot RT min 3V*: Injury of right foot, initial encounter;Right footSanta Fe [place] [employer] Other XR foot RT min 3V*painSanta Fe [employer] [employer] Other XR foot RT min 3V*RIGHT FOOT - 3 [facility] [employer] Other XR foot RT min 3V*CLINICAL HISTORY: Bilateral foot pain, swelling and bruising for one day.Only-apartments Other XR foot RT min 3V*COMPARISON: Right foot 08/12/2015 Only-apartments Other XR foot RT min 3V*FINDINGS:Only-apartments Other XR foot RT min 3V*No focal soft tissue abnormality. No radiopaque foreign body. There is a mildly displaced fractureParents Journey [employer] Other XR foot RT min 3V*involving the shaft of the fifth metatarsal. No additional fractures are seen. No bony erosions.Only-apartments Other XR foot RT min 3V* XR/XR foot RT min 3V*Only-apartments Other XR foot RT min 3V*IMPRESSION:Only-apartments Other XR foot RT min 3V*MILDLY DISPLACED FRACTURE INVOLVING THE SHAFT OF THE FIFTH METATARSAL.Only-apartments Other XR foot RT min 3V*Impression dictated by: Rusty Sepulveda Jr., DMeghanOMeghan09/01/2022 2:57 [facility] [employer] [employer] Other XR foot RT min 3V*Dictation Location: [id number] [employer] [employer] Other XR foot RT min 3V*Transcribed By: PWS 09/01/22 [facility] Only-apartments Other XR foot RT min 3V*Dictated By: Rusty Sepulveda Jr DO 09/01/[address] [place] [address] [employer] Other XR foot RT min 3V*Signed By:Only-apartments Other XR foot RT min 3V*09/01/[address] [place] [address] [employer] Other COVID Quick Testingon 41-90-5499QbpsvsOaqdjivhWccfz [employer] [employer] Other Quick Fluon 99-12-5750BYMCL Ab CF (S) [Titer]Negative Only-apartments Other FLUBV Ab CF (S) [Titer]NegativeSanta Fe [place] [employer] Other Albumin [Mass/volume] in Serum or PlasmaOrdered By: Sheldon Xie on 68-90-6042Dpoffrw [Mass/Vol]3.8 g/dL3.2-5.5FMercy Health Perrysburg HospitalBasophils Auto (Bld) [#/Vol]Ordered By: Sheldon Xie on 06-16-2022 Basophils (Bld) [#/Vol]0.1 10*3/uL0.0-0.2FMercy Health Perrysburg Hospital Basophils/100 WBC Auto (Bld)Ordered By: Sheldon Xie on 85-96-6121Ltyddhjrw/100 WBC (Bld)1.0 %.[facility] HospitalCreatinine and Glomerular filtration rate.predicted panel (S/P/Bld)Ordered By: Sheldon Xie on 06-16-2022 Creatinine [Mass/Vol]0.75 mg/dL0.44-1.03[facility] Eosinophils Auto (Bld) [#/Vol]Ordered By: Sheldon Xie on 35-25-0917Hnebndmklrv (Bld) [#/Vol]0.4 10*3/uL0.0-0.45[facility] HospitalEosinophils/100 WBC Auto (Bld)Ordered By: Sheldon Xie on 81-40-3013Kcsldtthcrc/100 WBC (Bld)5.8 %.[facility] HospitalErythrocyte distribution width Auto (RBC) [Ratio]Ordered By: Sheldon Xie on 95-59-0867Ukfydbnrzrt distribution width (RBC) [Ratio]13.9 %11.9-15.3FMercy Health Perrysburg HospitalEstimated glomerular filtration rate (GFR) non- AmericanOrdered By: Sheldon Xie on 06-16-2022 GFR/1.73 sq M.predicted among non-blacks MDRD (S/P/Bld) [Vol rate/Area]> 60 mL/MinProvidence HospitalGlobulin Calc (S) [Mass/Vol]Ordered By: Sheldon Xie on 43-73-9972Dokhaxzz (S) [Mass/Vol]3.0 g/dLProvidence HospitalHematocrit Auto (Bld) [Volume fraction]Ordered By: Sheldon Xie on 16-37-6273Wnfgjbhmur (Bld) [Volume fraction]41.1 %34.0-46.4FMercy Health Perrysburg HospitalHemoglobin [Mass/volume] in BloodOrdered By: Sheldon Xie on 74-07-8072Eiisakessu (Bld) [Mass/Vol]13.1 g/dL11.8-15.4FMercy Health Perrysburg HospitalLaboratory - Hematology and Cell countsOrdered By: Sheldon Xie on 93-08-5786Qemgohnsu RBC/100 WBC (Bld) [Ratio]0.1 %0-0.5FMercy Health Perrysburg HospitalLeukocytes [#/volume] in Blood by Automated countOrdered By: Sheldon Xie on 27-01-1432ZPS (Bld) [#/Vol]6.0 10*3/uL4.5-11.0Prov[facility] HospitalLymphocytes Auto (Bld) [#/Vol]Ordered By: Sheldon Xie on 06-16-2022 Lymphocytes (Bld) [#/Vol]1.9 10*3/uL1.00-4.8[facility] Lymphocytes/100 WBC Auto (Bld)Ordered By: Sheldon Xie on 06-16-2022 Lymphocytes/100 WBC (Bld)32.1 %.[facility] HospitalH Auto (RBC) [Entitic mass]Ordered By: Sheldon Xie on 53-06-1606SNI (RBC) [Entitic mass]32.0 pg24.7-34.3FMercy Health Perrysburg HospitalMCHC Auto (RBC) [Mass/Vol]Ordered By: Sheldon Xie on 39-51-6797HUSS (RBC) [Mass/Vol]32.0 g/dL32.0-35.0[facility] HospitalMCV Auto (RBC) [Entitic vol]Ordered By: Sheldon Xie on 97-09-8238RSG (RBC) [Entitic vol]99.9 xL90-122EucnfdbeiProvidence Hospital Monocytes Auto (Bld) [#/Vol]Ordered By: Sheldon Xie on 84-51-9996Fyygzmkot (Bld) [#/Vol]0.6 10*3/uL0.0-0.8[facility] HospitalMonocytes/100 WBC Auto (Bld)Ordered By: Sheldon Xie on 20-58-5981Xyzhawxws/100 WBC (Bld)9.6 %.[facility] HospitalNeutrophils Auto (Bld) [#/Vol]Ordered By: Sheldon Xie on 90-74-4915Zlnpljloxwf (Bld) [#/Vol]3.1 10*3/uL1.8-7.7FMercy Health Perrysburg HospitalNeutrophils/100 WBC Auto (Bld)Ordered By: Sheldon Xie on 06-16-2022 Neutrophils/100 WBC (Bld)51.5 %.[facility] HospitalNo Panel InformationOrdered By: Sheldon Xie on 31-81-9991Uxzykgbvb GFR ()> 60 mL/MinProvidence HospitalComment on above:GFR estimated reference range: According to KDOQI guidelines, <60 ml/min/1.73m2 is sufficient todiagnose a patient with chronic kidney disease.Pharmacy Creatinine Clearance (ChemN/[facility] HospitalPlatelet mean volume Auto (Bld) [Entitic vol]Ordered By: Sheldon Xie on 97-95-9361Wdfxisys mean volume (Bld) [Entitic vol]9.2 fL6.3-10.7FMercy Health Perrysburg HospitalPlatelets Auto (Bld) [#/Vol]Ordered By: Sheldon Xie on 36-77-0041Pcdfcxwbw (Bld) [#/Vol]361 10*3/uL 150-450Prov[facility] HospitalProtein [Mass/volume] in Serum or Plasma Ordered By: Sheldon Xie on 76-15-5621Jamurbw [Mass/Vol]6.8 g/dL6.1-7.9Prov[facility] HospitalRBC Auto (Bld) [#/Vol]Ordered By: Sheldon Xie on 11-12-6749BVV (Bld) [#/Vol]4.11 10*6/uL3.60-5.00[facility] Centererum or plasma alanine aminotransferase measurement without P-5'-P (enzymatic activiOrdered By: Sheldon Xie on 99-85-0038PEH No additional P-5'-P [Catalytic activity/Vol]13 U/R08-41IrbagzhzgSouthern Ohio Medical Centererum or plasma albumin/globulin mass ratioOrdered By: Sheldon Xie on 06-16-2022 Albumin/Globulin [Mass ratio]1.3 {ratio}[facility] Centererum or plasma alkaline phosphatase measurement (enzymatic activity/volume)Ordered By: Sheldon Xie on 93-10-8210TXN [Catalytic activity/Vol]44 U/I68-64PloldvxloSouthern Ohio Medical Centererum or plasma anion gap determinationOrdered By: Sheldon Xie on 38-51-3031Nssnc gap [Moles/Vol]11.1 mmol/L6.0-15.0[facility] Centererum or plasma aspartate aminotransferase measurement (enzymatic activity/volume)Ordered By: Sheldon Xie on 50-92-3566AWZ [Catalytic activity/Vol] 23 U/Y74-87YnyofhznpSouthern Ohio Medical Centererum or plasma calcium measurement (mass/volume)Ordered By: Sheldon Xie on 80-21-8270Pghmoor [Mass/Vol]9.7 mg/dL 8.2-10.2FKettering Health Prebleerum or plasma chloride measurement (moles/volume)Ordered By: Sheldon Xie on 86-54-1018Kvhqhmkg [Moles/Vol]109 mmol/L 95-114[facility] Centererum or plasma glucose measurement (mass/volume)Ordered By: Sheldon Xie on 87-92-7644Ymibkee [Mass/Vol]95 mg/dL 70-100Prov[facility] HospitalComment on above:ADA recommended reference rangeRandom Glucose Reference Range is dependent on time and content of last meal. Glucose of more than 200 mg/dL in a nonstressed, ambulatory subject supports the diagnosisof Diabetes Mellitus.Serum or plasma potassium measurement (moles/volume)Ordered By: Sheldon Xie on 65-53-6705Dxaeowdjc [Moles/Vol]4.3 mmol/L3.5-5.1FKettering Health Prebleerum or plasma sodium measurement (moles/volume)Ordered By: Sheldon Xie on 04-64-8437Uisumr [Moles/Vol]143 mmol/K717-657ZlqqccdxqSouthern Ohio Medical Centererum or plasma total bilirubin measurement (mass/volume)Ordered By: Sheldon Xie on 06-16-2022 Bilirubin [Mass/Vol]0.8 mg/dL0.3-1.2FKettering Health Prebleerum or plasma total carbon dioxide measurement (moles/volume)Ordered By: Sheldon Xie on 16-28-6050LE5 [Moles/Vol]27.2 mmol/L22.0-30.0[facility] Serum or plasma urea nitrogen measurement (mass/volume)Ordered By: Sheldon Xie on 53-89-8727Wlkh nitrogen [Mass/Vol]14 mg/dL9-[address] [place] [address] Creatinine and Glomerular filtration rate.predicted panel (S/P/Bld)Ordered By: Sheldon Xie on 13-18-3297Dupureuhmv [Mass/Vol]0.81 mg/dL0.44-1.03[facility] HospitalEstimated glomerular filtration rate (GFR) non- AmericanOrdered By: Sheldon Xie on 36-65-3194TUN/1.73 sq M.predicted among non- blacks MDRD (S/P/Bld) [Vol rate/Area]> 60 mL/MinProvidence HospitalNo Panel InformationOrdered By: Sheldon Xie on 31-44-3292Uxvttpssz GFR ()> 60 mL/MinProvidence HospitalComment on above: GFR estimated reference range: According to KDOQI guidelines, <60 ml/min/1.73m2 is sufficient todiagnose a patient with chronic kidney disease.Pharmacy Creatinine Clearance ([facility] Hospitalerum or plasma urea nitrogen measurement (mass/volume)Ordered By: Sheldon Xie on 51-88-5753Aozw nitrogen [Mass/Vol]19 mg/dLProvidence HospitalPULMONARY FUNCTION TESTon 70-91-2095DQYIKZJYJ FUNCTION TESTPULMONARY FUNCTION TEST STUDY DATE: 04/05/2022 SIX MINUTE WALK [...] per minute oxygen with activity/ambulation. Clinical correlation required.NormalThe [facility]health [facility] General HospitalAlbumin [Mass/volume] in Serum or PlasmaOrdered By: Sheldon Xie on 99-42-5121Vseoqyl [Mass/Vol]4.1 g/dL 3.2-5.5FMercy Health Perrysburg HospitalBasophils Auto (Bld) [#/Vol]Ordered By: Sheldon Xie on 21-78-9218Jvlixvwwf (Bld) [#/Vol]0.1 10*3/uL0.0-0.2FMercy Health Perrysburg HospitalBasophils/100 WBC Auto (Bld)Ordered By: Sheldon Xie on 88-07-1330Eggsmitdv/100 WBC (Bld)1.0 %.[facility] HospitalBlood hemoglobin measurement (mass/volume)Ordered By: Sheldon Xie on 04-01-2022 Hemoglobin (Bld) [Mass/Vol]13.4 g/dL11.8-15.4FMercy Health Perrysburg Hospital Blood leukocytes automated count (number/volume)Ordered By: Sheldon Xie on 99-04-1344ZAL (Bld) [#/Vol]8.5 10*3/uL4.5-11.0[facility] Cholesterol [Mass/volume] in Serum or PlasmaOrdered By: Sheldon Xie on 04-01-2022 Cholesterol [Mass/Vol]175 mg/qR927-834BqblmhqjyProvidence HospitalComment on above:Chol less than 200 mg/dl low risk Chol 201-239 mg/dl borderline risk Chol 240 mg/dl and greater high riskChol less than 200 mg/dl low riskChol 201- 239 mg/dl borderline riskChol 240 mg/dl and greater high riskCholesterol in LDL Calc [Mass/Vol]Ordered By: Sheldon Xie on 98-03-0529Bfscidvalzf in LDL [Mass/Vol] 110 mg/dL0-100Prov[facility] HospitalComment on above:LDL ATP III CLASSIFICATION LDL less than 100 mg/dL Optimal LDL 100-129 mg/dL Near or above optimal LDL 130-159 mg/dL Borderline high LDL 160-189 mg/dL High LDL greater than 189 mg/dL Very highLDL ATP III CLASSIFICATIONLDL less than 100 mg/dL OptimalLDL 100-129 mg/dL Near or above qalljrxXCN331-841 mg/dL Borderline highLDL 160-189 mg/dL HighLDL greater than 189 mg/dL Very highCholesterol in VLDL Calc [Mass/Vol]Ordered By: Sheldon Xie on 43-17-8685Qhnxbrqvvqz in VLDL [Mass/Vol]14 mg/dLProvidence HospitalCreatinine and Glomerular filtration rate.predicted panel (S/P/Bld)Ordered By: Sheldon Xie on 04-01-2022 Creatinine [Mass/Vol]0.93 mg/dL0.44-1.03[facility] Eosinophils Auto (Bld) [#/Vol]Ordered By: Sheldon Xie on 39-29-6965Pwcnvvnzdby (Bld) [#/Vol]0.3 10*3/uL0.0-0.45[facility] HospitalEosinophils/100 WBC Auto (Bld)Ordered By: Sheldon Xie on 90-54-0469Vtlgsrkwtqu/100 WBC (Bld)3.2 %.[facility]idence HospitalErythrocyte distribution width Auto (RBC) [Ratio]Ordered By: Sheldon Xie on 50-42-5069Gozckkypfwn distribution width (RBC) [Ratio]14.1 %11.9-15.3FMercy Health Perrysburg HospitalEstimated glomerular filtration rate (GFR) non- AmericanOrdered By: Sheldon Xie on 04-01-2022 GFR/1.73 sq M.predicted among non-blacks MDRD (S/P/Bld) [Vol rate/Area]58 mL/Min [facility] HospitalGlobulin Calc (S) [Mass/Vol]Ordered By: Sheldon Xie on 14-02-4786Nrutgtct (S) [Mass/Vol]2.7 g/dLProvidence HospitalHematocrit Auto (Bld) [Volume fraction]Ordered By: Sheldon Xie on 41-99-9573Tuiihmdynh (Bld) [Volume fraction]41.7 %34.0-46.4FMercy Health Perrysburg HospitalLaboratory - Hematology and Cell countsOrdered By: Sheldon Xie on 36-40-7635Yytqjgkcm RBC/100 WBC (Bld) [Ratio]0.0 %0-0.5FMercy Health Perrysburg HospitalLymphocytes Auto (Bld) [#/Vol]Ordered By: Sheldon Xie on 04-01-2022 Lymphocytes (Bld) [#/Vol]1.6 10*3/uL1.00-4.8[facility] Lymphocytes/100 WBC Auto (Bld)Ordered By: Sheldon Xie on 04-01-2022 Lymphocytes/100 WBC (Bld)18.4 %.[facility] HospitalH Auto (RBC) [Entitic mass]Ordered By: Sheldon Xie on 27-14-1333QTH (RBC) [Entitic mass]30.9 pg24.7-34.3FMercy Health Perrysburg HospitalMCHC Auto (RBC) [Mass/Vol]Ordered By: Sheldon Xie on 31-72-9392AAIQ (RBC) [Mass/Vol]32.1 g/dL32.0-35.0[facility] HospitalMCV Auto (RBC) [Entitic vol]Ordered By: Sheldon Xie on 21-83-0281XGJ (RBC) [Entitic vol]96.5 qO70-740UfmvptajhProvidence Hospital Monocytes Auto (Bld) [#/Vol]Ordered By: Sheldon Xie on 21-99-5467Toesdwdpf (Bld) [#/Vol]0.7 10*3/uL0.0-0.8[facility] HospitalMonocytes/100 WBC Auto (Bld)Ordered By: Sheldon Xie on 55-88-4892Xvwcnjlvc/100 WBC (Bld)8.2 %.[facility] HospitalNeutrophils Auto (Bld) [#/Vol]Ordered By: Sheldon Xie on 77-94-0622Qksopmqzqsm (Bld) [#/Vol]5.8 10*3/uL1.8-7.7FMercy Health Perrysburg HospitalNeutrophils/100 WBC Auto (Bld)Ordered By: Sheldon Xie on 04-01-2022 Neutrophils/100 WBC (Bld)69.2 %.[facility] HospitalNo Panel InformationOrdered By: Sheldon Xie on 03-59-7083Nzdtzibhg GFR ()> 60 mL/MinProvidence HospitalComment on above:GFR estimated reference range: According to KDOQI guidelines, <60 ml/min/1.73m2 is sufficient todiagnose a patient with chronic kidney disease.Pharmacy Creatinine Clearance (ChemN/[facility] HospitalPlatelet mean volume Auto (Bld) [Entitic vol]Ordered By: Sheldon Xie on 07-33-7954Hedsoykv mean volume (Bld) [Entitic vol]9.2 fL6.3-10.7FMercy Health Perrysburg HospitalPlatelets Auto (Bld) [#/Vol]Ordered By: Sheldon Xie on 17-93-0714Smcjqreoy (Bld) [#/Vol]300 10*3/uL 150-450Prov[facility] HospitalProtein [Mass/volume] in Serum or Plasma Ordered By: Sheldon Xie on 31-17-2806Vktpcam [Mass/Vol]6.8 g/dL6.1-7.9Prov[facility] HospitalRBC Auto (Bld) [#/Vol]Ordered By: Sheldon Xie on 06-75-1029RTP (Bld) [#/Vol]4.33 10*6/uL3.60-5.00[facility] Centererum or plasma alanine aminotransferase measurement without P-5'-P (enzymatic activiOrdered By: Sheldon Xie on 23-97-7238UUL No additional P-5'-P [Catalytic activity/Vol]15 U/U82-47MqoijmhrqSouthern Ohio Medical Centererum or plasma albumin/globulin mass ratioOrdered By: Sheldon Xie on 04-01-2022 Albumin/Globulin [Mass ratio]1.5 {ratio}[facility] Centererum or plasma alkaline phosphatase measurement (enzymatic activity/volume)Ordered By: Sheldon Xie on 79-96-0383HSE [Catalytic activity/Vol]49 U/D95-87XztsdaalxSouthern Ohio Medical Centererum or plasma aspartate aminotransferase measurement (enzymatic activity/volume)Ordered By: Sheldon Xie on 89-13-2251RNN [Catalytic activity/Vol]22 U/O67-91QgrhxaatlSouthern Ohio Medical Centererum or plasma calcium measurement (mass/volume)Ordered By: Sheldon Xie on 92-44-7320Lerfxmf [Mass/Vol] 10.4 mg/dL8.2-10.2FKettering Health Prebleerum or plasma chloride measurement (moles/volume)Ordered By: Sheldon Xie on 10-54-3754Tgygztnb [Moles/Vol]106 mmol/A01-788WtcciipsnSouthern [facility] Medical Centererum or plasma glucose measurement (mass/volume)Ordered By: Sheldon Xie on 06-11-9330Qyqkltz [Mass/Vol]92 mg/xD03-416KzaptnxqtProvidence HospitalComment on above:ADA recommended reference range Random Glucose Reference Range is dependent on time and content of last meal. Glucose of more than 200 mg/dL in a nonstressed, ambulatory subject supports the diagnosis of Diabetes Mellitus.ADA recommended reference rangeRandom Glucose Reference Range is dependent on time and content of last meal. Glucose of more than 200 mg/dL in a nonstressed, ambulatory subject supports the diagnosisof Diabetes Mellitus.Serum or plasma high density lipoprotein (HDL) cholesterol measurementOrdered By: Sheldon Xie on 79-47-3860Zopzuuufnsb in HDL [Mass/Vol]51 mg/cK61-17NiqjkuasoProvidence HospitalComment on above:HDL CHOL ATP-III CLASSIFICATION Cardiovascular Risk HDL > or equal to 60 mg/dL LOW HDL < 40 mg/dL HIGHHDL CHOL ATP-III CLASSIFICATION Cardiovascular RiskHDL > or equal to 60 mg/dL LOWHDL < 40 mg/dL HIGHSerum or plasma potassium measurement (moles/volume)Ordered By: Sheldon Xie on 90-17-5778Elmteamfu [Moles/Vol]4.5 mmol/L3.5-5.1FKettering Health Prebleerum or plasma sodium measurement (moles/volume)Ordered By: Sheldon Xie on 50-03-3303Vtezzi [Moles/Vol]142 mmol/L 136-146[facility] Centererum or plasma total bilirubin measurement (mass/volume)Ordered By: Sheldon Xie on 39-22-0348Qksibitrp [Mass/Vol]0.6 mg/dL0.3-1.2FKettering Health Prebleerum or plasma total carbon dioxide measurement (moles/volume)Ordered By: Sheldon Xie on 04-01-2022 CO2 [Moles/Vol]27.2 mmol/L22.0-30.0[facility] Centererum or plasma total cholesterol/high density lipoprotein (HDL) cholesterol mass rat Ordered By: Sheldon Xie on 77-05-0594Mqeqonshdik.total/Cholesterol in HDL [Mass ratio]3.4 {ratio}<5.0[facility] Centererum or plasma urea nitrogen measurement (mass/volume)Ordered By: Sheldon iXe on 68-50-9379Hhdf nitrogen [Mass/Vol]29 mg/dL9-23Providence HospitalTS DL <= 0.005 mIU/L QnOrdered By: Sheldon Xie on 85-22-0303WSX Qn2.53 m[IU]/L0.45-5.33Prov[facility] HospitalTriglyceride [Mass/volume] in Serum or PlasmaOrdered By: Sheldon Xie on 52-28-3156Jjqhagihcirj [Mass/Vol]71 mg/nB96-474IxijljpbqProvidence HospitalComment on above:TRIG ATP III CLASSIFICATION TRIG less than 150 mg/dL Normal TRIG 150-199 mg/dL Borderline high TRIG 200-500 mg/dL High TRIG greater than 500 mg/dL Very high Standard traceable to the Center for Disease Conrtrol and Prevention (CDC) test method.TRIG ATP III CLASSIFICATIONTRIG less than 150 mg/dL NormalTRIG 150-199 mg/dL Borderline highTRIG 200-500 mg/dL High TRIG greater than 500 mg/dL Very highStandard traceable to the Center for Disease Conrtrol and Prevention (CDC) test method.Creatinine and Glomerular filtration rate.predicted panel (S/P/Bld) Ordered By: Sheldon Xie on 48-96-1691Teplmqsynd [Mass/Vol]0.64 mg/dL0.44-1.03 [facility] HospitalEstimated glomerular filtration rate (GFR) non- AmericanOrdered By: Sheldon Xie on 62-71-9381SZW/1.73 sq M.predicted among non-blacks MDRD (S/P/Bld) [Vol rate/Area]> 60 mL/MinProvidence HospitalNo Panel InformationOrdered By: Sheldon Xie on 23-07-3061Diieufvqs GFR ()> 60 mL/MinProvidence HospitalComment on above:GFR estimated reference range: According to KDOQI guidelines, <60 ml/min/1.73m2 is sufficient todiagnose a patient with chronic kidney disease. Pharmacy Creatinine Clearance (ChemN/[facility] Hospitalerum or plasma calcium measurement (mass/volume)Ordered By: Sheldon Xie on 02-09-2022 Calcium [Mass/Vol]10.0 mg/dL8.2-10.2FKettering Health Prebleerum or plasma chloride measurement (moles/volume)Ordered By: Sheldon Xie on 02-09-2022 Chloride [Moles/Vol]103 mmol/P43-179McqitcacvSouthern Ohio Medical Centererum or plasma glucose measurement (mass/volume)Ordered By: Sheldon Xie on 02-09-2022 Glucose [Mass/Vol]95 mg/kY69-802GmplzbswyProvidence HospitalComment on above:ADA recommended reference range Random Glucose Reference Range is dependent on time and content of last meal. Glucose of more than 200 mg/dL in a nonstressed, ambulatory subject supports the diagnosis of Diabetes Mellitus.Serum or plasma potassium measurement (moles/volume)Ordered By: Sheldon Xie on 36-17-1682Pgjxajmgd [Moles/Vol]4.0 mmol/L3.5-5.1FKettering Health Prebleerum or plasma sodium measurement (moles/volume)Ordered By: Sehldon Xie on 57-72-3427Xifduy [Moles/Vol]141 mmol/L 136-146[facility] Centererum or plasma total carbon dioxide measurement (moles/volume)Ordered By: Sheldon Xie on 36-67-1684AJ4 [Moles/Vol] 26.5 mmol/L22.0-30.0[facility] Centererum or plasma urea nitrogen measurement (mass/volume)Ordered By: Sheldon Xie on 17-83-5683Pxam nitrogen [Mass/Vol]18 mg/dL9-23Prov[facility] HospitalOffice Visit (Cardiology)on 55-06-0135[place]-up visitDiagnoses/Problems Assessed COPD (chronic obstructive pulmonary disease) (496) [...] and she basically has no coronary disease orstructural heart disease will cause her complaints of [...] Recorded: 08Feb2022 11:19AM Heart Rate78, R Radial Uceyustm599, LUE, Sitting Lqedbgvff02, LUE, Sitting Height5 ft 2 in Mmcwgg646 lb BMI Zkrgnzoyvy45.03 kg/m2 BSA Calculated1.51 Tobacco Useb) No PHQ-2 #1. Over the last 2 weeks have you felt down, depressed or hopeless? (If yes, answer PHQ-9 below)No PHQ-2 #2. Over the last 2 weeks have you felt little interest or pleasure in doing things? (If yes,answer PHQ-9 below)No Fall Screeningb) One or more [...] turgor . Psychiatric willy (more content not included)...NormalUH TouchworksTobacco Screening.on 00-76-3462Hnwmu depression screening assessmentNoOthello Community Hospital Gimado DO Work Phone: Fall risk assessmentb) One or more falls in the last yearOthello Community Hospital Team [employer] 250 DO Work Phone: Tobacco use status CPHSb) [facility] MD.Voice DO Work Phone: Vital Signs Date TimeVital SignValuePerforming CfqvabkjiZtwsfojn96-46-6666 08:45-8121WyW7% (BldA) [Mass fraction]94 %Sheldon [employer] DO Work Phone: [phone]08-14-2025 08:39-0400 Body rpojwu463.48 cmBrenicola [employer] DO Work Phone: [phone]08-14-2025 08:39-0400 Body mass index (BMI) [Ratio]17.9 kg/v2Vvrwm [employer] DO Work Phone: [phone]08-14-2025 08:39-0400 Body skgdap52.45 kgBrenicola [employer] DO Work Phone: [phone]08-14-2025 08:39-0400 Diastolic blood xmwuyljc44 mm[Hg]Sheldon Alvarezs DO Work Phone: [phone]08[facility]08-14-2025 08:39-0400 Heart rate85 /minBrenicola AlvarezMallzee.[employer] DO Work Phone: [facility]08-14-2025 08:39-0400 Inhaled oxygen flow rate1 L/minBrett Kuns DO Work Phone: [phone]08-14-2025 08:39-0400 Respiratory rate20 /minBrett Kuns DO Work Phone: [facility]08-14-2025 08:39-0400 Systolic blood togtotpu401 mm[Hg]Sheldon Kuns DO Work Phone: [phone] [place], [place] [address]107-21-2025 09:32-0400 Body aksmyu447.48 cmBrett Kuns DO Work Phone: [phone]07-21-2025 09:32-0400 Body mass index (BMI) [Ratio]17.9 kg/g8Yarkv Kuns DO Work Phone: [phone]07-21-2025 09:32-0400 Body egzviu55.62 kgBrett Kuns DO Work Phone: [phone]47[facility]07-21-2025 09:32-0400 Diastolic blood ziuqbwpe46 mm[Hg]Sheldon Kuns DO Work Phone: [facility]07-21-2025 09:32-0400 Heart rate82 /minBrett Kuns DO Work Phone: [facility]07-21-2025 09:32-0400 Respiratory rate20 /minBrett Kuns DO Work Phone: 1([phone])[phone] [place], [place] [address]48107-21-2025 09:32-0400 SaO2% (BldA) [Mass fraction]93 %Sheldon Kuns DO Work Phone: [phone]07-21-2025 09:32-0400 Systolic blood evetwfnq945 mm[Hg]Sheldon Kuns DO Work Phone: [phone])[address]06-18-2025 13:40-0400 Body ggdgun778.48 cmBrett Kuns DO Work Phone: [facility]06-18-2025 13:40-0400 Body mass index (BMI) [Ratio]17.4 kg/g1Dhoth Kuns DO Work Phone: [facility]06-18-2025 13:40-0400 Body eylblg73.31 kgBrett Kuns DO Work Phone: [facility]06-18-2025 13:40-0400 Diastolic blood edzqzoqn45 mm[Hg]Sheldon Kuns DO Work Phone: 1(585)9-[address] [place], [place] 6137006-18-2025 13:40-0400 Heart rate80 /minBrett Kuns DO Work Phone: 1(196)[address]06-18-2025 13:40-0400 Inhaled oxygen flow rate1 L/minBrett Kuns DO Work Phone: 1(802)6-[address] [place], [place] 0548106-18-2025 13:40-0400 Respiratory rate18 /minBrett Kuns DO Work Phone: 1(465)6-[address] [place], [place] 0548106-18-2025 13:40-0400 SaO2% (BldA) [Mass fraction]98 %Sheldon Kuns DO Work Phone: [phone]06-18-2025 13:40-0400 Systolic blood ybffjtbg854 mm[Hg]Sheldon Kuns DO Work Phone: [phone]04-29-2025 14:34-0400 Body dwlixo995.48 cmBrett Kuns DO Work Phone: 1(385)1-[address] [place], [place] 0548104-29-2025 14:34-0400 Body mass index (BMI) [Ratio]17.7 kg/j5Ckirk Kuns DO Work Phone: [facility]04-29-2025 14:34-0400 Body tydsce86.99 kgBrett Kuns DO Work Phone: 1(925)562-[address] [place], [place] 0548104-29-2025 14:34-0400 Diastolic blood beaeyqnh74 mm[Hg]Sheldon Kuns DO Work Phone: [facility]04-29-2025 14:34-0400 Heart rate60 /minMandytt Kuns DO Work Phone: [facility]04-29-2025 14:34-0400 Respiratory rate16 /minMandytt Longs DO Work Phone: [facility]04-29-2025 14:34-0400 SaO2% (BldA) [Mass fraction]97 %Sheldon Kuns DO Work Phone: [facility]04-29-2025 14:34-0400 Systolic blood snsuliac786 mm[Hg]Sheldon Kuns DO Work Phone: [facility]01-23-2025 12:39-0500 Body .48 cm[facility] 12:39-0500Body mass index (BMI) [Ratio]17.4 kg/p5HhsiyvfmuProv[facility]01-23-2025 12:39-0500Body yolxnt94.09 kg[facility]01[facility] 12:39-0500Diastolic blood nkmkdkre92 mm[Hg][facility] 09-19-2024 12:39-0500Heart rate65 /[facility] 09-19-2024 12:39-0500Respiratory rate16 /[facility] 09-19-2024 12:39-5005TeJ2% (BldA) [Mass fraction]89 %[facility]01-23-2025 12:39-0500Systolic blood vzjgoxom327 mm[Hg][facility]11-12-2024 15:00-0500Body lqvnyv757.48 cmMandytt Kuns DO Work Phone: [facility]11-12-2024 15:00-0500 Body mass index (BMI) [Ratio]18.6 kg/s0Vqqbl Kuns DO Work Phone: [facility]11-12-2024 15:00-0500 Body .26 kgBrett Kuns DO Work Phone: [facility]11-12-2024 15:00-0500 Diastolic blood fqnozaen64 mm[Hg]Sheldon Kuns DO Work Phone: [facility]11-12-2024 15:00-0500 Heart rate70 /minBrett Kuns DO Work Phone: [facility]11-12-2024 15:00-0500 Respiratory rate20 /minBrett Kuns DO Work Phone: [facility]11-12-2024 15:00-0500 SaO2% (BldA) [Mass fraction]92 %Sheldon Kuns DO Work Phone: [facility]11-12-2024 15:00-0500 Systolic blood rgrgazgi044 mm[Hg]Sheldon Kuns DO Work Phone: [facility]10-22-2024 12:33-0400 Body aqetis199.48 cmDO Sheldon Kuns Work Phone: [phone]10-22-2024 12:33-0400 Body mass index (BMI) [Ratio]19 kg/m2DO Sheldon Kuns Work Phone: [facility]10-22-2024 12:33-0400 Body uyttzk12.17 kgDO Sheldon Kuns Work Phone: [facility]10-22-2024 12:33-0400 Diastolic blood ciopjhgb73 mm[Hg]DO Sheldon Kuns Work Phone: [facility]10-22-2024 12:33-0400 Heart rate75 /minDO Sheldon Kuns Work Phone: [facility]10-22-2024 12:33-0400 Respiratory rate16 /minDO Sheldon Kuns Work Phone: [facility]10-22-2024 12:33-0400 SaO2% (BldA) [Mass fraction]92 %DO Sheldon Kuns Work Phone: [facility]10-22-2024 12:33-0400 Systolic blood zrvhvypq599 mm[Hg]DO Sheldon Kuns Work Phone: 1(159)031-[address] [place], [place] 0548109-19-2024 08:40-0400 Body owmqfo705.48 cmDO Sheldon Kuns Work Phone: 1(318)[address]09-19-2024 08:40-0400 Body mass index (BMI) [Ratio]19.3 kg/m2DO Sheldon Kuns Work Phone: [phone](022)[address]09-19-2024 08:40-0400 Body anncvz64.08 kgDO Sheldon Kuns Work Phone: 1(104)[address]09-19-2024 08:40-0400 Diastolic blood ewzgialg44 mm[Hg]DO Sheldon Kuns Work Phone: [facility]09-19-2024 08:40-0400 Heart rate88 /minDO Sheldon Kuns Work Phone: [phone]09-19-2024 08:40-0400 Respiratory rate18 /minDO Sheldon Kuns Work Phone: 1(880)3-[address] [place], [place] 0548109-19-2024 08:40-0400 SaO2% (BldA) [Mass fraction]97 %DO Sheldon Kuns Work Phone: [phone]09-19-2024 08:40-0400 Systolic blood mm[Hg]DO Sheldon Kuns Work Phone: [phone]07-23-2024 14:00-0400 Body ijlwbk960.48 cmDO Sheldon Kuns Work Phone: [phone](262)[address]07-23-2024 14:00-0400 Body mass index (BMI) [Ratio]19.9 kg/m2DO Sheldon Kuns Work Phone: [facility]07-23-2024 14:00-0400 Body ziiemj47.44 kgDO Sheldon Kuns Work Phone: [facility]07-23-2024 14:00-0400 Diastolic blood uezwgekx29 mm[Hg]DO Sheldon Kuns Work Phone: [facility]07-23-2024 14:00-0400 Heart rate68 /minDO Sheldon Kuns Work Phone: [facility]07-23-2024 14:00-0400 Respiratory rate18 /minDO Sheldon Kuns Work Phone: [facility]07-23-2024 14:00-0400 SaO2% (BldA) [Mass fraction]91 %DO Sheldon Kuns Work Phone: [facility]07-23-2024 14:00-0400 Systolic blood urihbslv712 mm[Hg]DO Sheldon Kuns Work Phone: [facility]06-14-2024 13:16-0400 Body gluvex558.5 cmRonnie Amin MD Work Phone: [facility]06-14-2024 13:16-0400 Body mass index (BMI) [Ratio]19.94 kg/z9KwcismkRonnie Amin MD Work Phone: [facility]06-14-2024 13:16-0400 Body .44 kgRonnie Amin MD Work Phone: [facility]06-14-2024 13:16-0400 Diastolic blood legrxznq74 mm[Hg]Ronnie Amin MD Work Phone: [facility]06-14-2024 13:16-0400 Heart rate68 /minWilliam McGuinn MD Work Phone: [facility]06-14-2024 13:16-0400 Systolic blood aotsyfqs072 mm[Hg]Ronnie Amin MD Work Phone: [facility]06-03-2024 10:35-0400 Diastolic blood zahhitnm16 mm[Hg]DO Sheldon Kuns Work Phone: [facility]06-03-2024 10:35-0400 Heart rate76 /minDO Sheldon Kuns Work Phone: [facility]06-03-2024 10:35-0400 Respiratory rate16 /minDO Sheldon Kuns Work Phone: [facility]06-03-2024 10:35-0400 SaO2% (BldA) [Mass fraction]91 %DO Sheldon Kuns Work Phone: [facility]06-03-2024 10:35-0400 Systolic blood yzpbqcnk559 mm[Hg]DO Sheldon Kuns Work Phone: [facility]05-14-2024 15:02-0400 Body lqauxa184.48 cmDO Sheldon Kuns Work Phone: [phone]05-14-2024 15:02-0400 Body mass index (BMI) [Ratio]20.2 kg/m2DO Sheldon Kuns Work Phone: [facility]05-14-2024 15:02-0400 Body alxbyndomqh95.2 [degF]DO Sheldon Kuns Work Phone: [facility]05-14-2024 15:02-0400 Body bcgici79.34 kgDO Sheldon Kuns Work Phone: [facility]05-14-2024 15:02-0400 Diastolic blood mm[Hg]DO Sheldon Kuns Work Phone: [facility]05-14-2024 15:02-0400 Heart rate72 /minDO Sheldon Kuns Work Phone: [facility]05-14-2024 15:02-0400 Respiratory rate20 /minDO Sheldon Kuns Work Phone: [facility]05-14-2024 15:02-0400 SaO2% (BldA) [Mass fraction]93 %DO Sheldon Kuns Work Phone: [facility]05-14-2024 15:02-0400 Systolic blood nevtbaei142 mm[Hg]DO Shelodn Kuns Work Phone: [facility]04-18-2024 12:32-0400 Body iiblul893.48 cmDO Sheldon Kuns Work Phone: [facility]04-18-2024 12:32-0400 Body mass index (BMI) [Ratio]19.3 kg/m2DO Sheldon Kuns Work Phone: [facility]04-18-2024 12:32-0400 Body euxibl83.08 kgDO Sheldon Kuns Work Phone: [facility]04-18-2024 12:32-0400 Diastolic blood fcratusr23 mm[Hg]DO Sheldon Kuns Work Phone: [facility]04-18-2024 12:32-0400 Heart rate70 /minDO Sheldon Kuns Work Phone: [facility]04-18-2024 12:32-0400 SaO2% (BldA) [Mass fraction]96 %DO Sheldon Kuns Work Phone: [facility]04-18-2024 12:32-0400 Systolic blood kignicyx444 mm[Hg]DO Sheldon Kuns Work Phone: [facility]03-20-2024 12:49-0400 Body ljehgx268.48 cmDO Sheldon Kuns Work Phone: [facility]03-20-2024 12:49-0400 Body mass index (BMI) [Ratio]19.9 kg/m2DO Sheldon Kuns Work Phone: [facility]03-20-2024 12:49-0400 Body fmiyup86.44 kgDO Sheldon Kuns Work Phone: [facility]03-20-2024 12:49-0400 Diastolic blood dqlkekcn98 mm[Hg]DO Sheldon Kuns Work Phone: [facility]03-20-2024 12:49-0400 Heart rate79 /minDO Sheldon Kuns Work Phone: [facility]03-20-2024 12:49-0400 Respiratory rate20 /minDO Sheldon Kuns Work Phone: [facility]03-20-2024 12:49-0400 SaO2% (BldA) [Mass fraction]89 %DO Sheldon Kuns Work Phone: [facility]03-20-2024 12:49-0400 Systolic blood ggmrburi783 mm[Hg]DO Sheldon Kuns Work Phone: [facility]02-20-2024 14:58-0500 Body .48 cmDO Sheldon Kuns Work Phone: [facility]02-20-2024 14:58-0500 Body mass index (BMI) [Ratio]19.3 kg/m2DO Sheldon [employer] Work Phone: [facility]02-20-2024 14:58-0500 Body twqbuaddiag33 [degF]DO Sheldon Kuns Work Phone: [facility]02-20-2024 14:58-0500 Body fimolj29.08 kgDO Sheldon Kuns Work Phone: [address] [place], [place] 6137002-20-2024 14:58-0500 Diastolic blood duystisa18 mm[Hg]DO Sheldon [employer] Work Phone: [facility]02-20-2024 14:58-0500 Heart rate87 /minDO Sheldon [employer] Work Phone: [facility]02-20-2024 14:58-0500 Respiratory rate2 /minDO Sheldon Kuns Work Phone: [facility]02-20-2024 14:58-0500 SaO2% (BldA) [Mass fraction]95 %DO Sheldon [employer] Work Phone: [facility]02-20-2024 14:58-0500 Systolic blood zohrlfxt501 mm[Hg]DO Sheldon [employer] Work Phone: [facility]12-13-2023 10:00-0500 Body yxiqev796.48 cmChristopher Aure Other [facility]12-13-2023 10:00-0500 Body mass index (BMI) [Ratio]19.57 kg/u4Iydljawhwyr Aure Other [facility] [employer] [facility] Other 12-13-2023 10:00-0500Body idtizfihtle13.6 [degF] Christopher Aure Other [facility] [employer] Other 12-13-2023 10:00-0500Body gcphat13.54 kgChristopher Aure Other [facility] [employer] Other 12-13-2023 10:00-0500Body .53 kgDO Sheldon [employer] Work Phone: [facility]12-13-2023 10:00-0500 Diastolic blood mm[Hg]Christopher Aure Other [facility]12-13-2023 10:00-0500 Respiratory rate20 /minChristopher Aure Other [facility] [employer] Other 12-13-2023 10:00-8690UjH2% (BldA) [Mass fraction]97 % Dre Looney Other [place] [employer] Other 12-13-2023 10:00-0500Systolic blood tzsxyvqs889 mm[Hg] Dre Looney Other [facility]11-07-2023 10:30-0500 Body fhiwho616.48 cmBrenicola Xie Other [facility] Other 11-07-2023 10:30-0500Body mass index (BMI) [Ratio] 20.12 kg/e0ItdscSheldon Xie Other [facility] Other 11-07-2023 10:30-0500Body uuzcjn07.9 kgBrenicola Xie Other [facility] Other 11-07-2023 10:30-0500Diastolic blood bkifzgve77 mm[Hg] Sheldon Xie Other [facility] Other 11-07-2023 10:30-0500Respiratory rate18 /minBrenicola Xie Other [facility] Other 11-07-2023 10:30-9242TbQ0% (BldA) [Mass fraction]95 % Sheldonnicola Xie Other [facility] Other 11-07-2023 10:30-0500Systolic blood ylptqgvb203 mm[Hg] Sheldon Kuns Other [facility] Other 10-03-2023 12:30-0400Body yshyaf413.48 cmBrett Kuns Other [facility] Other 10-03-2023 12:30-0400Body mass index (BMI) [Ratio] 19.82 kg/c3Azwne Kuns Other [facility] Other 10-03-2023 12:30-0400Body .17 kgBrett Kuns Other [facility] Other 10-03-2023 12:30-0400Diastolic blood ujnvrebk03 mm[Hg] Sheldon Kuns Other [facility] Other 10-03-2023 12:30-0400Respiratory rate18 /minBrett Kuns Other [facility] Other 10-03-2023 12:30-6364PeM3% (BldA) [Mass fraction]94 % Sheldon Kuns Other [facility] Other 10-03-2023 12:30-0400Systolic blood xniaptkx982 mm[Hg] Sheldon Kuns Other [facility] Other 04-04-2023 13:30-0400Body semhpq985.48 cmBrett Kuns Other [facility] Other 04-04-2023 13:30-0400Body mass index (BMI) [Ratio] 18.36 kg/t2Tmcjj Kuns Other [facility] Other 04-04-2023 13:30-0400Body tzqgac53.54 kgBrett Kuns Other [facility] Other 04-04-2023 13:30-0400Diastolic blood oncfyxri22 mm[Hg] Sheldon Kuns Other [facility] Other 04-04-2023 13:30-0400Respiratory rate16 /minBrenicola Xie Other [facility] Other 04-04-2023 13:30-4492PrN3% (BldA) [Mass fraction]93 % Sheldonnicola Alvarezs Other [facility] Other 04-04-2023 13:30-0400Systolic blood scgutlvo417 mm[Hg] Sheldon Kuns Other [facility] Other 02-02-2023 13:30-0500Body .48 cmBrett Anne-Marie Other [facility] Other 02-02-2023 13:30-0500Body mass index (BMI) [Ratio] 18.65 kg/r3Fcgqs Kuns Other [facility] Other 02-02-2023 13:30-0500Body ruhcrc29.27 kgBrett Longs Other [facility] Other 02-02-2023 13:30-0500Diastolic blood jcbcpfod25 mm[Hg] Sheldon Kuns Other [facility] Other 02-02-2023 13:30-0500Respiratory rate16 /minBrett Kuns Other [facility] Other 02-02-2023 13:30-7416LuD5% (BldA) [Mass fraction]88 % Sheldonnicola Alvarezs Other [facility] Other 02-02-2023 13:30-0500Systolic blood kitwwpog020 mm[Hg] Sheldon Longs Other [facility] Other 01-05-2023 13:30-0500Body ljjkyi717.48 cmBrett Longs Other [facility] Other 01-05-2023 13:30-0500Body mass index (BMI) [Ratio] 18.84 kg/f3Dgpia Kuns Other [facility] Other 01-05-2023 13:30-0500Body dfperi65.72 kgBrett Longs Other [facility] Other 01-05-2023 13:30-0500Diastolic blood mm[Hg] Sheldon Longs Other [facility] Other 01-05-2023 13:30-0500Respiratory rate16 /minBrett Kuns Other [facility] Other 01-05-2023 13:30-6749NmA0% (BldA) [Mass fraction]98 % Sheldon Longs Other [facility] Other 01-05-2023 13:30-0500Systolic blood mm[Hg] Sheldon Kuns Other [employer] Other 10-27-2022 13:30-0400Body wsjolu495.48 cmBrett Kuns Other [facility] Other 10-27-2022 13:30-0400Body mass index (BMI) [Ratio] 19.57 kg/a4Eiafe Kuns Other [facility] Other 10-27-2022 13:30-0400Body ssktje74.54 kgBrett Kuns Other [facility] Other 10-27-2022 13:30-0400Diastolic blood eqoankxz28 mm[Hg] Sheldon Kuns Other [facility] Other 10-27-2022 13:30-0400Respiratory rate16 /minBrett Kuns Other [facility] Other 10-27-2022 13:30-8538WvJ0% (BldA) [Mass fraction]98 % Sheldon Kuns Other [facility] Other 10-27-2022 13:30-0400Systolic blood gngmqvtu018 mm[Hg] Sheldon Kuns Other [facility] Other 09-27-2022 13:30-0400Body pylilp888.48 cmBrett Kuns Other [facility] Other 09-27-2022 13:30-0400Body mass index (BMI) [Ratio] 19.75 kg/u1Hmoic Kuns Other [facility] Other 09-27-2022 13:30-0400Body .99 kgBrett Kuns [facility] [employer] Other 09-27-2022 13:30-0400Diastolic blood jvdeopnb70 mm[Hg] Sheldon Kuns Other [place] [employer] Other 09-27-2022 13:30-0400Respiratory rate16 /minBrett Kuns Other [place] [employer] Other 09-27-2022 13:30-4513IkY4% (BldA) [Mass fraction]98 % Sheldon Kuns Other [place] [employer] Other 09-27-2022 13:30-0400Systolic blood mm[Hg] Sheldon Kuns Other [place] [employer] Other 08-22-2022 12:55-0400Body uyeeigylkrv81.3 [degF]DO Sheldon Kuns Work Phone: [facility]08-22-2022 12:55-0400 Diastolic blood mm[Hg]DO Sheldon Kuns Work Phone: [facility]08-22-2022 12:55-0400 Heart rate73 /minDO Sheldon Kuns Work Phone: [facility]08-22-2022 12:55-0400 Respiratory rate18 /minDO Sheldon Kuns Work Phone: [facility]08-22-2022 12:55-0400 SaO2% (BldA) [Mass fraction]95 %DO Sheldon Kuns Work Phone: [facility]08-22-2022 12:55-0400 Systolic blood yikbkxpy834 mm[Hg]DO Sheldonnicola Xie Work Phone: [facility]07-26-2022 13:30-0400 Body eximuf446.48 cmMandynicola Anne-Marie Other [employer] Other 07-26-2022 13:30-0400Body mass index (BMI) [Ratio] 20.48 kg/r9JureoSheldon Xie Other [facility] [employer] Other 07-26-2022 13:30-0400Body axczoq68.8 kgSheldon Xie Other [facility] 07-26-2022 13:30-0400Diastolic blood ggionsqu04 mm[Hg] Sheldon Xie Other [place] [employer] Other 07-26-2022 13:30-0400Respiratory rate16 /minBrenicola Xie Other [facility] 07-26-2022 13:30-6641BaV8% (BldA) [Mass fraction]96 % Sheldon Xie Other [place] [employer] Other 07-26-2022 13:30-0400Systolic blood hpcsdeyf369 mm[Hg] Sheldonnicola Xie [facility] 06-14-2022 11:19-0400Body ltythi910.48 cmBrenicola Xie Work Phone: 1(238) [phone]-[facility] DO Work Phone: 1(235) 426-676106-14-2022 11:19-0400Body mass index (BMI) [Ratio] 21.03 kg/r4Yhdsx R Kuns Work Phone: [phone]-Ebqdi [facility] [facility] DO Work Phone: 1(177) 536-896506-14-2022 11:19-0400Body surface area Derived from formula1.51 x1GfecuSheldon Xie Work Phone: [phone]-Vdzcv [place] [employer] 250 DO Work Phone: 1(428) 563-765006-14-2022 11:19-0400Body .16 kgBrenicola Xie Work Phone: [phone]-Zzaps [place] [employer] 250 DO Work Phone: 1(151) 621-480706-14-2022 11:19-0400Diastolic blood caxgdsje22 mm[Hg] Sheldonnicola Xie Work Phone: [phone]-Wxbck [facility] [facility] DO Work Phone: 1(799) 265-802406-14-2022 11:19-0400Heart rate78 /minBrenicola Xie Work Phone: 1(329) 452-5896026-2248PQ-Irgnz [place] [employer] 250 DO Work Phone: 1(968) 283-954006-14-2022 11:19-0400Systolic blood pwwlyrsa764 mm[Hg] Sheldon Xie Work Phone: [phone]-Ncpzp [place] [employer] 250 DO Work Phone: 1(194) 537-953004-26-2022 14:00-0400Body ivowud015.48 cmSheldon Xie Other [facility] Other 04-26-2022 14:00-0400Body mass index (BMI) [Ratio] 20.67 kg/y7Rmoue Longjagdish Other [facility] Other 04-26-2022 14:00-0400Body tawixq21.26 kgSheldon Longjagdish Other [facility] Other 04-26-2022 14:00-0400Diastolic blood ksdewyvc36 mm[Hg] Sheldon Kuns Other [facility] Other 04-26-2022 14:00-0400Respiratory rate16 /minBrett Kuns Other [facility] Other 04-26-2022 14:00-3019CtN2% (BldA) [Mass fraction]94 % Sheldon Kuns Other [facility] Other 04-26-2022 14:00-0400Systolic blood mm[Hg] Sheldon Kuns Other [facility] Other 04-07-2022 14:30-0400Body ztloqa508.48 cmBrett Kuns Other [facility] Other 04-07-2022 14:30-0400Body mass index (BMI) [Ratio] 20.67 kg/a5Qgokt Kuns Other [facility] Other 04-07-2022 14:30-0400Body aktcdu88.26 kgBrett Kuns Other [facility] Other 04-07-2022 14:30-0400Diastolic blood ypmibout11 mm[Hg] Sheldon Kuns Other [facility] Other 04-07-2022 14:30-0400Respiratory rate18 /minBrett Kuns Other [facility] Other 04-07-2022 14:30-3424SpY6% (BldA) [Mass fraction]95 % Sheldon Kuns Other [facility] Other 04-07-2022 14:30-0400Systolic blood mm[Hg] Sheldon Kuns Other [facility] Other 03-30-2022 13:30-0400Body efoggi752.48 cmBrett Longs Other [facility] Other 03-30-2022 13:30-0400Body mass index (BMI) [Ratio] 20.67 kg/c5Wxpjb Kuns Other [facility] Other 03-30-2022 13:30-0400Body .26 kgBrenicola Alvarezs Other [facility] Other 03-30-2022 13:30-0400Diastolic blood mm[Hg] Sheldon Longs Other [facility] Other 03-30-2022 13:30-0400Respiratory rate16 /minBrenicola Xie Other [facility] Other 03-30-2022 13:30-1445RpV0% (BldA) [Mass fraction]93 % Sheldon Longs Other [facility] Other 03-30-2022 13:30-0400Systolic blood qoltclbr324 mm[Hg] Sheldon Kuns Other [facility] Other 10-14-2021 12:30-0400Body jqnspa580.48 cmAlireza Olvera Other [facility] Other 10-14-2021 12:30-0400Body mass index (BMI) [Ratio]20.3 kg/w4KhqfylxAlireza Olvera Other [facility] Other 10-14-2021 12:30-0400Body hpysqi08.35 kgRenettavicente Olvera Other [facility] Other 10-14-2021 12:30-0400Diastolic blood adavrbjf15 mm[Hg] Alireza Wade Other [facility] Other 10-14-2021 12:30-0400Respiratory rate18 /minInocenciosanaquincy Wade Other [facility] 10-14-2021 12:30-6251GqY3% (BldA) [Mass fraction]97 % Alireza Wade Other [facility] Other 10-14-2021 12:30-0400Systolic blood tvkcofsc017 mm[Hg] Alireza Apariciomarleni Other [facility] Other Encounters Encounter DateEncounter TypeCare ProviderFacilityStart: 06-05-2025 End: 01-97-0101aolkdcaqhnYYNMCUU [facility] Healthcare[facility]: 06-04-2025 End: 27-25-1039Swrukau encounter procedureNoms Raghav Audiology [facility] - Nan Reina AudiologyComment on above: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)Start: 06-04-2025 End: 09-10-9529wxiwdaihfqJQHWCNW WRIGHTNot AvailableStart: 04-10-2025 End: 86-89-6287deskqznrdtKpywd Kuns DO Work Phone: [facility] Work Phone: Start: 04-10-2025 End: 73-19-1622Wuysabcvumwvictoria Looney MD-[facility] Work Phone: Start: 04-08-2025 End: 56-90-1057fvfwauwiauUDQF [facility] Hospitaltart: 73-65-3429XmqqouuS[facility] Work Phone: Start: 03-20-2025 End: 12-27-2589albdlfoqloBBRDSOHSumma Healthtart: 03-17-2025 End: 62-81-1231qypaflfrjkRbqba Kuns DO Work Phone: [facility] Work Phone: Start: 03-17-2025 End: 52-03-8123Iuxjd R Kuns DO-[facility] Work Phone: Start: 73-71-9364Gnck A [facility] Work Phone: Start: 02-27-2025 End: 28-95-0644madejrtxziCXKZAdena [facility]ayette Medical Centertart: 99-30-6685Ejavq R Kuns DO-[facility] Work Phone: Start: 02-12-2025 End: 62-64-9803Lnjqv R Kuns DO-[facility] Work Phone: Start: 87-14-0181ochogttdzxLBAKVMFSumma Healthtart: 47-15-1500Kfvhkbt Hoy M [facility] Work Phone: Start: 85-05-4246Eehotza Hoy M MD-[facility] Work Phone: Start: 67-17-6061FjwrRanjit Peralta MDMil[facility] System [facility] Work Phone: Start: 15-16-7903AvqyRanjit Peralta [facility] Work Phone: Start: 54-15-1630DvizRanjit Peralta [facility] Work Phone: Start: 98-48-2251EnllRanjit Peralta [facility] Work Phone: Start: 56-93-1538KxwdRanjit Peralta [facility] Work Phone: Start: 74-40-7473WymjRanjit Peralta MDM[facility] Work Phone: Start: 64-91-1702UvfpRanjit Peralta MDM[facility] Work Phone: Start: 04-94-3520Ltesk R Kuns DO-[facility] Work Phone: Start: 01-01-2025 End: 62-40-4097Ratjoaj encounter procedureNoSt. 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)Start: 12-04-2024 End: 85-03-7651flmzdfhptzMVOAQVC WRIGHTNot AvailableStart: 11-14-2024 End: 38-41-0676Dwdxuxr encounter procedureBrenicola Alvarezs DO Work Phone: [facility] Work Phone: Start: 11-14-2024 End: 96-36-3462rzvnsheffbSumhr Kuns DO Work Phone: [facility] Work Phone: Start: 11-13-2024 End: 22-77-3825uoutifobaqLBWAMBE WRIGHTNot AvailableStart: 09-20-2024 End: 45-54-6895Jyfaak flowsLenchodamion Melgar AUD Work Phone: noms AUDStart: 09-20-2024 End: 47-73-1838Wmixhe flowsbeeNoahdamion Quiñones Melgar AUD Work Phone: noMS AUDStart: 09-20-2024 End: 35-22-6337Wsfktjqek encounterNoahdamion Melgar AUD Work Phone: noMS AUDStart: 09-20-2024 End: 92-61-0362Strduhd encounter procedureNoahdamion Melgar AUD Work Phone: noMS AUDComment on above:Mixed conductive and sensorineural hearing loss of right ear with restricted hearing of left ear (Pr imary Dx)Start: 09-20-2024 End: 27-23-2589nnixyeijfvFQJENCT S WRIGHTNot AvailableStart: 09-19-2024 End: 05-43-3802uwufzctlufCgzzhdgqtAvita Health System [facility] Work Phone: Start: 09-19-2024 End: 91-94-2074Ixsgpfw [facility] Family Medicine [place] Work Phone: Start: 07-09-2024 End: 72-29-8089nzjuuszqxcEamcl Kuns DO Work Phone: [facility] Work Phone: Start: 07-09-2024 End: 38-76-5159Fkfujlv encounter procedureBrett Kuns DO Work Phone: [facility] Pulmonary Disease Work Phone: Start: 53-45-0378Mhg-patient / Non-visitBrenicola Alvarezs DO Work Phone: [facility] Work Phone: Start: 06-18-2024 End: 04-68-5970Ojvrixp encounter procedureDO Sheldon Kuns Work Phone: [facility]tr[facility]: 06-18-2024 End: 79-93-0607njojkrthqnJC Sheldno Kuns Work Phone: [facility] Work Phone: Start: 06-18-2024 End: 30-67-2970lijkvqrtcgBL Sheldon Kuns Work Phone: [facility] Work Phone: Start: 06-18-2024 End: 73-68-1215Lkbzytf encounter procedureDO Sheldon Kuns Work Phone: [facility] Family [facility] [place] Work Phone: Start: 06-06-2024 End: 18-03-6977zmopoddrtoMF Sheldon Kuns Work Phone: [facility] Work Phone: Start: 06-06-2024 End: 78-34-7730Omntmaw encounter procedureDO Sheldon Kuns Work Phone: [facility] Work Phone: Start: 05-16-2024 End: 40-91-0057Kpaiymm encounter procedureDO Sheldonnicola Alvarezs Work Phone: [facility]trStart: 05-16-2024 End: 77-77-0493qexyvbhndgHR Sheldonnicola Alvarezs Work Phone: [facility] Work Phone: Start: 05-16-2024 End: 92-43-6206yrnnuwmnujDF Sheldon Kuns Work Phone: [facility] Work Phone: Start: 05-16-2024 End: 30-78-0322Ubbmoth encounter procedureDO Sheldon Alvarezs Work Phone: [facility] Work Phone: Start: 05-15-2024 End: 38-68-6907Uxlgukx encounter procedureDO Sheldon Alvarezs Work Phone: [facility]-Lab [place] Work Phone: Start: 05-15-2024 End: 24-92-8862mzxnfdlgztBS Sheldon Kuns Work Phone: [facility] Work Phone: Start: 03-19-2024 End: 52-73-6165hyrzpdwqfnED Sheldon Kuns Work Phone: [facility] Work Phone: Start: 03-19-2024 End: 97-47-5129Aomxjcw encounter procedureDO Sheldon Kuns Work Phone: [facility] Work Phone: Start: 03-04-2024 End: 36-25-0526halnrvlimnDY Sheldon Xie Work Phone: [facility] Work Phone: Start: 03-04-2024 End: 76-74-4401Zzwiqumzoq RecurringDO Sheldon Xie Work Phone: [facility]-Physical Therapy [place] Work Phone: start: 02-09-2024 End: 82-75-2047Mqtfym outpatient visit 25 minutesRonnie Amin MD Work Phone: [facility] HospitalComment on above:Benign essential hypertension (Primary Dx); Paroxysmal supraventricular tachycardia (CMS-HCC); Mixed hyperlipidemia; Former cigarette smokerStart: 02-09-2024 End: 80-86-4752dxusvppbrlLHWHMOI P [facility] HospitalStart: 01-29-2024 End: 33-99-5010klpwenttqrGT Sheldonnicola Alvarezjagdish Work Phone: [facility] Work Phone: Start: 01-29-2024 End: 05-28-7576Honelan encounter procedureDO Sheldon Xie Work Phone: [facility] Family [facility] [place] Work Phone: Start: 98-98-2968Jfubwljtsa RecurringDO Sheldon Xie Work Phone: [facility]-Physical Therapy [place] Work Phone: start: 01-09-2024 End: 82-83-8988Kqcjcfq encounter procedureDO Sheldon Xie Work Phone: [facility] Pulmonary Disease Work Phone: Start: 20-88-0508Uqb-patient / Non-visitDO Sheldon Xie Work Phone: [facility] Work Phone: Start: 12-14-2023 End: 61-96-8487ncddrwfxihUG Sheldon Kuns Work Phone: [facility] Work Phone: Start: 12-14-2023 End: 51-67-6854Nazybvg encounter procedureDO Sheldon Kuns Work Phone: [facility] [place] Work Phone: Start: 08-76-1421Iwp-patient / Non-visitDO Sheldon Kuns Work Phone: [facility] Pulmonary Disease Work Phone: Start: 12-05-2023 End: 24-48-9614Yeeuqvs encounter procedureDO Sheldon Kuns Work Phone: [facility]-Sleep Lab Work Phone: Start: 12-05-2023 End: 92-13-6670atztgzobrlSP Sheldon Kuns Work Phone: [facility] Work Phone: Start: 11-20-2023 End: 60-30-5689Dhzlzjt encounter procedureDO Sheldon Kuns Work Phone: [facility]trStart: 11-20-2023 End: 82-74-1776xqhyxfcdytNP Sheldon Kuns Work Phone: [facility] Work Phone: Start: 11-16-2023 End: 57-91-6441fqjtgasuyvLP Sheldon Kuns Work Phone: [facility] Work Phone: Start: 11-16-2023 End: 30-09-8347Zlscjws encounter procedureDO Sheldon Kuns Work Phone: [facility] Work Phone: Start: 11-15-2023 End: 56-07-6520rdnmtityxqSK Sheldon Kuns Work Phone: [facility] Work Phone: Start: 11-15-2023 End: 94-76-0553Luxqaxu encounter procedureDO Sheldon Kuns Work Phone: [facility] Family [facility] [place] Work Phone: Start: 06-23-3225Iuf-patient / Non-visitDO Sheldon Kuns Work Phone: [facility] Work Phone: Start: 10-17-2023 End: 55-04-5870fwuyehkqnjRU Sheldon Kuns Work Phone: [facility] Work Phone: Start: 10-17-2023 End: 96-64-6293Ugyiqqv encounter procedureDO Sheldon Kuns Work Phone: [facility] Pulmonary Disease Work Phone: Start: 10-10-2023 End: 80-44-0955bfuuzchgsfNH Sheldon Kuns Work Phone: [facility] Work Phone: Start: 10-10-2023 End: 29-44-5925Doifpvr encounter procedureDO Sheldon Kuns Work Phone: [facility]trStart: 79-23-0576Brq-patient / Non-visitDO Sheldon Kuns Work Phone: [facility] Work Phone: Start: 09-26-2023 End: 07-55-6426mdbrlkvckrOI Sheldon Kuns Work Phone: [facility] Work Phone: Start: 09-26-2023 End: 54-33-4579Dctyftn encounter procedureDO Sheldon Xie Work Phone: [facility]-Lab [place] Work Phone: Start: 09-13-2023 End: 41-99-7487zeqtybcgqxBmazw Kuns Other [facility] [employer] Other Start: 81-31-4650Lighxdfiv encounterSheldon Masters Referral CoordinatorStart: 09-01-2023 End: 87-66-1630Cawhcuq encounter procedureDO Sheldon Xie Work Phone: [facility]-Electrodiagnostics Work Phone: Start: 08-30-2023 End: 46-35-0573aqqzkzpaqwXQRWR R KUNSPAdena Pike Medical Centertart: 08-09-2023 End: 52-23-3090eajhteszeoHwvdyxgvmro Aure Other [facility] [employer] Other Start: 58-35-9255Xekate outpatient new 45 minutes Dre Mccoy Pulmonary DiseaseStart: 08-09-2023 End: 34-86-2545Xnpvcji encounter procedureDO Sheldon Xie Work Phone: [facility] Pulmonary Disease Work Phone: Start: 08-07-2023 End: 43-96-5286Gincktz encounter procedureDO Sheldon Xie Work Phone: [facility]-Respiratory Therapy Work Phone: Start: 07-04-2023 End: 28-67-7996ajqsakpvxxRhdoe Kuns Other [facility] [employer] Other Start: 03-60-6858Bzzxsu outpatient visit 25 minutes Sheldon Masters Family Medicine [place]Start: 07-04-2023 End: 63-89-9207Iwjaxhn encounter procedureDO Sheldon Kuns Work Phone: [facility] [place] Work Phone: Start: 05-30-2023 End: 54-58-5471efcxtnrrqwPlvcy Kuns Other no[employer]s [employer] Other Start: 04-12-2040Lpmgsg outpatient visit 25 minutes Sheldon AlvarezjagdishCHANDLER [facility] Family [facility] Cast[place]Start: 32-50-9445Juajvhlob encounterBrenicola AlvarezjagdishCHANDLER REGIONAL [facility] Family [facility] [place]Start: 05-24-2023 End: 42-14-9912qdeteapewuVT Sheldon Alvarezs Work Phone: [facility] Work Phone: Start: 05-24-2023 End: 80-12-1260Dleinyc encounter procedureDO Sheldon Alvarezs Work Phone: [facility]-Lab [place] Work Phone: Start: 05-02-2023 End: 75-90-1978mtlhyzfmoqYbvuj Kuns Other [facility] [employer] Other Start: 61-55-3657Bmutiyzyp encounterBrenicola VikyG [facility] [place]Start: 02-20-2023 End: 60-42-8129rneuxsqbvsJibpd Kuns Other [employer] Other Start: 99-74-3055Gmwzmwxrl encounterBrett VikyG Family Medicine [place]Start: 01-10-2023 End: 23-48-6218psidxpohyyZUFINOLK KEARNEYFacility:U0Yibqt: 25-23-6654lwgxyfwrvd SAMMIE DURANFacility:F3Aiayr: 39-02-6376Lldxcb outpatient visit 15 minutes [facility]opedicsStart: 12-20-2022 End: 96-57-0676eaawlciwoaWX Sheldon Xie Work Phone: [facility] Work Phone: Start: 12-20-2022 End: 50-14-7587Agjknlh encounter procedureDO Sheldon Xie Work Phone: [facility]-XRay [place] [facility] Start: 12-14-2022 End: 74-69-0934xqxntvldxwOorpg Anne-Marie Other [place] [employer] Other Start: 83-05-3848Djhlcblvy encounterSheldon Masters Family Medicine [place]Start: 12-12-2022 End: 26-77-8724mwrybmpnveNBUHZXZC KEARNEYFacility:E9Hmgnq: 41-99-0929Qg Renewal Sheldon Xie Work Phone: [phone]-Bfuac [facility] [address] DO Work Phone: Start: 11-29-2022 End: 08-63-5675edznmohwfoMudgr Kuns Other [place] [employer] Other Start: 76-68-4006Naqpqh outpatient visit 25 minutes Sheldon Masters Family Medicine [place]Start: 79-52-8753Bb RenewalBrenicola Xie Work Phone: [phone]-Yutab [facility] [address] DO Work Phone: Start: 11-21-2022 End: 87-16-5651okvyywxonoKmhrmpjt [place] Other [facility] [employer] Other Start: 27-67-8494Oicemesrf encounterSammie Duran FPG [facility]icsStart: 11-14-2022 End: 59-56-2459kbxigbweunBMZHVDIO KEARNEYFacility:K9Lvlnc: 85-19-0156Gg Jon Xie Work Phone: [phone]-Honyk [facility] [facility] DO Work Phone: Start: 11-08-2022 End: 77-10-4927wrpnxyldooVT Sheldon Kuns Work Phone: [facility] Work Phone: Start: 11-08-2022 End: 69-32-2309Xjdfvyh encounter procedureDO Sheldon Kuns Work Phone: [facility] Start: 10-17-2022 End: 83-26-8833imdmfgquwoWB SHELDON XIEFacility:V8Htkwg: 10-12-2022 End: 57-33-4795dnrfhsqaotXtnxy Kuns Other [place] [employer] Other Start: 76-44-5025Lefsvivtp encounterBrenicola Masters Family Medicine [place]Start: 10-04-2022 End: 70-34-9661omjwaledmlYW Sheldon Kuns Work Phone: [facility] Work Phone: Start: 10-04-2022 End: 21-85-3470Zjhpbro encounter procedureDO Sheldon Kuns Work Phone: [facility] Start: 53-21-4636Cqxnlr outpatient visit 25 minutesBrett Guerrero Family Medicine [place]Start: 85-14-2790Lwlfygjaq encounterJennifer RogerG [facility]icsStart: 09-29-2022 End: 50-61-7233himhtcmqanBU Sheldon Kuns Work Phone: [facility] Work Phone: Start: 09-29-2022 End: 08-00-8198Xqhzwed encounter procedureDO Sheldon Kuns Work Phone: [facility]-Lab [address] [place] Work Phone: Start: 09-27-2022 End: 57-29-8190usiplrdnvcZgklyatz [place] Other [facility] [employer] Other Start: 51-85-2526Qafqdq outpatient visit 25 minutes [facility] OrthopedicsStart: 63-84-1304Pxgbla follow up visit related to original pxSammie Jurado OrthopedicsStart: 09-15-2022 Telephone encounterBrenicola Masters Family [facility] [place]Start: 09-15-2022 End: 01-99-7660kctrzifeelHN Sheldon Xie Work Phone: [facility] Work Phone: Start: 09-15-2022 End: 84-44-8008Sgwwgyh encounter procedureDO Sheldon Xie Work Phone: [facility] Start: 09-02-2022 End: 87-65-1844jpsrfiftqmUuayt Kuns Other [place] [employer] Other Start: 52-81-4304LJGC visit new Anjali [facility] OrthopedicsStart: 74-30-0766Wktoojcqy encounterBrenicola Masters Family Medicine [place]Start: 52-16-3891Uxalgb outpatient visit 25 minutes Sheldon XieSamuel Family [facility] [place]Start: 09-01-2022 End: 57-64-0428wnuzhpthlkNL Sheldon Kuns Work Phone: [facility] Work Phone: Start: 09-01-2022 End: 85-96-3737Nlzorwc encounter procedureDO Sheldon Kuns Work Phone: [facility]trStart: 08-08-2022 End: 50-78-0628kfcxklokuzWpvou Kuns Other [employer] Other Start: 64-72-1508Qlzlxtauc encounterBrenicola Masters [facility] [place]Start: 08-04-2022 End: 01-23-6559ybiuwralvuYtnam Kuns Other [employer] Other Start: 63-18-4027Ngtwmhjoi encounterBrenicola Masters [facility] [place]Start: 07-29-2022 End: 58-15-6722sqajvbfvxwVukip Kuns Other [place] [employer] Other Start: 32-27-3762Pectgqs evaluation of patient and reportBrenicola XiePappas Rehabilitation Hospital for [facility] Cast[place]Start: 39-79-4977Djruucxkn encounter Sheldonnicola XieSamuel [facility] [place]Start: 06-23-2022 End: 86-90-5908echsgkcwswDsjyv Longs Other [facility] [employer] Other Start: 32-45-7808Drpabd outpatient visit 25 minutes [facility]on [facility]ieCH[facility] Family Medicine [place]Start: 06-16-2022 End: 13-24-9670aqojchonfsCZ Sheldon Kuns Work Phone: [facility] Work Phone: Start: 06-16-2022 End: 72-67-6000Kqdbloc encounter procedureDO Sheldon Kuns Work Phone: [facility]-Lab [place]Start: 06-03-2022 End: 78-13-6192mlphwrqlawSG Sheldon Kuns Work Phone: [facility] Work Phone: Start: 06-03-2022 End: 03-11-2691Hlnniov encounter procedureDO Sheldon Kuns Work Phone: [facility]-CT Scan [place] Start: 06-02-2022 End: 15-22-0489ozohgjvxinZqhgz Kuns Other [employer]s [employer] Other Start: 65-10-5946Xgjonhxxv encounterBrenicola Masters [facility] [place]Start: 05-24-2022 End: 35-31-4564frbcxwbmyyEdquq Kuns Other [facility] [employer] Other Start: 58-44-9163Ejwozn outpatient visit 25 minutes Sheldon Masters [facility] [place]Start: 05-16-2022 End: 94-00-9352bzokdankdnZxqdr Kuns Other Any.[facility] [employer] Other Start: 30-26-2925Nsvzxxunc encounterBrett Anne-MarieSamuel Family Medicine [place]Start: 58-96-8642Scqoskhdiw RecurringDO Sheldon Xie Work Phone: [facility]-Infusion Therapy - O/P Start: 04-13-2022 End: 50-85-6143rykellkrzxKEKXCM SAMSA .Facility:J8Tvjxq: 04-05-2022 End: 57-07-2241wmrteiwuwkEK BRETT KUNSFacility:G9Mlbtm: 04-01-2022 End: 62-24-3158Euldlro encounter procedureDO Sheldon Xie Work Phone: [facility]-Lab [place]Start: 03-22-2022 End: 55-70-5180xilcihvrxoSoqgo Kuns Other [employer] Other Start: 20-24-1411Kbwmbm outpatient visit 25 minutes Sheldon Masters [facility] [place]Start: 02-09-2022 End: 34-80-1680yvrpdgtgfsBtuyq Kuns Other [place] [employer] Other Start: 33-35-8742Iabasrfbh encounterBrenicola Masters [facility] [place]Start: 02-09-2022 End: 85-43-6010Plrnbnl encounter procedureDO Sheldon Xie Work Phone: [facility]-Lab [place]Start: 75-44-4592Njtrzr outpatient visit 25 minutesSheldon Xie Work Phone: [phone]-Vuvlv [facility] [facility] DO Work Phone: Start: 01-19-2022 End: 95-67-7162hixujpolxlZrwpy Kuns Other [place] [employer] Other Start: 35-69-9551Tlskpnvbn encounterSheldon Masters Family Medicine [place]Start: 50-69-4931Bu Adriana Amin MD Work Phone: [phone]-Succz [facility] [address] DO Work Phone: Start: 12-21-2021 End: 11-25-8162lphgdooqbpXgzdg Kuns Other [place] [employer] Other Start: 30-90-2605Ysfzpc outpatient visit 25 minutes Sheldon Masters [facility] [place]Start: 12-02-2021 End: 66-91-4503bdzlebaskqMndeo Kuns Other [employer] Other Start: 95-09-3015Yjucgu outpatient visit 25 minutes Sheldon Masters [facility] [place]Start: 27-91-7393Ew Adriana Amin MD Work Phone: [phone]-Giudf [facility] [facility] DO Work Phone: Start: 11-24-2021 End: 16-30-2524umfmuedlpbPwuwh Kuns Other [phone] Other Start: 83-16-9952Jntvud outpatient visit 25 minutes Sheldon SalmonG [facility] [place]Start: 10-20-2021 End: 26-09-9360bgypjckzeiLkfcn Kuns Other [employer] Other Start: 76-14-8972Rwvklxpnj encounterBrett LongsFPG Family Medicine [place]Start: 10-19-2021 End: 81-84-7683mscqttuhohCsjov Kuns Other [employer] Other Start: 29-86-9731Dbllrrvkh encounterBrett LongsFPG Family Medicine [place]Start: 87-21-8379Zk Adriana Amin MD Work Phone: [phone]-TshntPh[place] [address] DO Work Phone: Start: 10-07-2021 End: 22-01-8741rqekxxijazNptni Kuns Other [employer] Other Start: 62-67-0105Didvnycyw encounterBrett LongsFPG Family Medicine [place]Start: 09-07-2021 End: 58-07-2156riasxyrccfNrcoa Kuns Other [employer] Other Start: 61-98-5487Rfczsakvj encounterBrett LongsFPG Family [facility] [place]Start: 07-06-2021 End: 79-56-5172rlybpvrzaaBlffn Kuns Other [employer] Other Start: 47-19-0295Oddcgbfas encounterBrett KunsFPG Family Medicine [place]Start: 77-44-6225Bprkcjqwz encounterMattsofia Olvera [facility] Referral CoordinatorStart: 05-25-7056Pzmxvp outpatient visit 25 minutes Alireza WadeFPG Vascular Surgery Procedures DateProcedureProcedure DetailPerforming ClinicianStart: 83-49-8128Wycmfy-up visitFollow-upARTEM CERONERStart: 74-74-6291QYDVHEHT FUNCTION TESTSTammy AVILEZ Work Phone: start: 57-01-6665Ufkmd X-ray of right ribDO Sheldon Xie Work Phone: Start: 07-18-3701V-ray of cervical spineDO Sheldonnicola Xie Work Phone: Start: 05-03-6144O-ray of lumbar spine, six views including bending viewsDO Sheldon Anne-Marie Work Phone: Start: 45-70-3635H-ray of sacrum and coccyx, two or more viewsDO Sheldon Xie Work Phone: Start: 45-86-1216Onrus Strep (POC)DO Sheldon Anne-Marie Work Phone: Start: 36-03-5975BVH (POC)DO Sheldonnicola Xie Work Phone: start: 00-33-6952Bbvmp chest X-rayDO Sheldon Xie Work Phone: start: 75-84-9965Dfkle X-ray of left hipDO Sheldon Xie Work Phone: Start: 24-01-2722Fatv energy X-ray absorptiometryDO Sheldon Xie Work Phone: Start: 70-94-3163X-ray of lumbar spine, six views including bending viewsDO Sheldon Anne-Marie Work Phone: start: 39-24-5906Gfgey chest X-rayDO Sheldon Anne-Marie Work Phone: Start: 06-85-2297G-ray of right footDO Sheldon Anne-Marie Work Phone: Start: 75-87-3350Y-ray of right footDO Sheldon Kuns Work Phone: Start: 92-74-3288Pwbx energy X-ray absorptiometryDO Sheldon Xie Work Phone: Start: 32-03-8115R-ray of right footDO Shelodnnicola Xie Work Phone: Start: 79-04-9411H-ray of right footDO Sheldonnicola Xie Work Phone: Start: 62-71-5623X-ray of right footDO Sheldonnicola Xie Work Phone: Start: 12-93-8188Cabvwspo tomography of abdomen and pelvis with contrastDO Sheldon Xie Work Phone: Start: 27-64-2873Hhhkv chest X-rayDO Sheldon Xie Work Phone: Start: 99-30-8199Xghwh X-ray of right ribDO Sheldon Xie Work Phone: AppendectomyBrett R Anne-Marie Work Phone: Cataract surgeryBrett R [facility] Work Phone: HysterectomyBrett R [facility] Work Phone: Operation on the earBrett R [facility] Work Phone: Total colonoscopyBrett R [facility] Work Phone: Comment on above:28Aug2005; Plan of Treatment DateCare ActivityDetailAuthorStart: 07-02-2025 End: 32-95-6442Ptqofyc encounter mycnnwaou30/05/2025 2:45 PM EST Office Visit [facility] [address] [facility] [address] [place] [address] [facility]iologyStart: 84-01-5401Mhpapwhrn vaccinationInfluenza Vaccine (#1)NOMJagdish HealthcareStart: 02-11-2025 End: 41-80-7895Dyeugrj encounter npksuhmgd57/17/2025 1:00 PM EDT Office Visit [facility] [address] [facility] [address] [place] [id number] Celestina Khalil MD [address] [facility] [address] [place] [address] [facility]Start: 01-01-2025 End: 40-41-8788Lwedrzk encounter klailmjvx74/07/2025 3:00 PM EDT Office Visit [facility] [address] [place] [address] XPXV CI AUDStart: 09-20-2024 End: 55-59-4881Pqvuxqw encounter zyddkqvjk71/24/2025 1:00 PM EST Office Visit [facility] [address] [facility] [place] [address] Tammy Melgar, AUD [address] [facility] [place] [address] [facility] AUDComment on above:ArrivedStart: 36-74-3128JXVYT-19 Vaccine ( season)COVID-19 Vaccine ( season)[facility] CenterStart: 17-82-1227MRF, Provider: Ronnie Amin, Status: Pen, Time: 11:10 AMFUV, Provider: Ronnie Amin, Status: Pen, Time: 11:10 AMMahnomen [facility] 250 DO Work Phone: Start: 23-11-9073Yrni energy X-ray absorptiometryXR dexa axial skeletonSouthern [place] Medical Centertart: 72-61-9572Kwbbwmmaua RecurringRegistered RecurringTrihealth Good [facility]-Infusion Therapy - O/PStart: 50-03-1953ACK, Provider: Ronnie Amin, Status: Pen, Time: 10:30 AM FUV, Provider: Ronnie Amin, Status: Pen, Time: 10:30 AMMP-[facility] [place] [address] DO Work Phone: Start: 91-70-6292Ierqjzslqamd Vaccine: 65+ Years (2 of 2 - PPSV23 or PCV20)Pneumococcal Vaccine: 65+ Years (2 of 2 - PPSV23 or PCV20) [facility] HealthcareStart: 20-90-0597Zcuviuzrjmzx Vaccine: 65+ Years (2 of 2 - PPSV23)Pneumococcal Vaccine: 65+ Years (2 of 2 - PPSV23)[facility] CenterStart: 81-81-5497SSU patients and/or patients aged 60+ years (1 - 1-dose 60+ series)RSV patients and/or patients aged 60+ years (1 - 1-dose 60+ series)[facility]: 83-00-3419ZEdM/Tdap/Td Vaccines (1 - Tdap)DTaP/Tdap/Td Vaccines (1 - Tdap)[facility] Start: 38-01-6073Ldxpjujx mellitus screeningDiabetes ScreeningUnKettering Health [facility]: 30-20-2007Xyien panelLipid PanelUnKettering Health Troy: 1941Medicare Annual Wellness VisitMedicare Annual Wellness Visit (AWV)[facility]: 1940 Screening for osteoporosisBone Density ScanChillicothe VA Medical Center Comprehensive metabolic 1999 panel - Serum or [facility]Com[facility] metabolic 1999 panel - Serum or [facility]Comprehensive metabolic 1999 panel - Serum or [facility] WestPatient EducationLow back pain in adultsGenesis Hospital Work Phone: XR Cervical spine 5 [facility] 2 [facility] 2 [facility] Hip - left Single [facility]XR Lumbar spine [facility] Ribs - right 2 [facility] Sacrum and Coccyx GE [address] [facility] Immunizations Immunization DateImmunizationNotesCare ZluhahhtUvixiuho81-40-0485eukilmtji, high dose seasonal, preservative-freeDO Sheldon Kuns Work Phone: [facility]10-22-2024influenza virus vaccine, [facility] formulationMont[facility]10-[facility]-2023 influenza, high dose seasonal, preservative-freeBrett Kuns Other [facility]10-03-2023influenza virus vaccine, unspecified formulationDO Sheldon Kuns Work Phone: [facility]09-27-2022influenza, high dose seasonal, preservative-freeBrett Kuns Other [facility]09-27-2022influenza virus vaccine, unspecified formulationDO Sheldon Kunjagdish Work Phone: [facility]10-05-2021Pfizer- BioNTech COVID-19 Vacc 30 MCG/0.3ML Intramuscular SuspensionBrett R Longs Work Phone: [facility]09-05-2021influenza, high dose seasonal, preservative-freeMatthew Langenberg Other [employer] Other [id number] High-Dose Quadrivalent 0.7 ML Intramuscular Suspension Prefilled SyringeBrett R [employer] Work Phone: [facility]09-05-2021influenza virus vaccine, unspecified formulationDO Sheldon Metis [employer] Groupjagdish Work Phone: [facility]02-20-2021COVID-19 Vaccine Pfizer - Documentation Purposes OnlyMattsanaw Wade Other [facility]01-30-2021COVID-19 Vaccine Pfizer - Documentation Purposes OnlyMatthew Langenberg Other [facility]09-11-2020influenza, seasonal, injectableMatthew Langenberg Other [facility]09-01-2020influenza virus vaccine, unspecified formulationBrett R Longs Work Phone: [phone]-[place]vtppAlex[place] [address] DO Work Phone: 1(593) 297-964412535197-17-5149oonvlx vaccine recombinantMatthew Langenberg Other [facility]10-07-2019zoster vaccine recombinantMatthew Langenberg Other [facility]10-07-2019influenza, seasonal, injectableMatthew Langenberg Other [facility]10-01-2019influenza virus vaccine, unspecified formulationBrett R Kuns Work Phone: [phone]-TqawgAlexandra [place] [address] DO Work Phone: 1(194) 174-264504111319-21-6225toexnoengzrk conjugate vaccine, 13 valent Alireza Olvera Other [facility]01-01-2019 pneumococcal polysaccharide vaccine, 23 valentBrett R Kuns Work Phone: [phone]) [phone]-IhzvpAlexandra [place] [address] DO Work Phone: [phone]) [phone]hgiwhx virus vaccine, unspecified formulationBrett R Kuns Work Phone: [phone]) [phone]-OuvrlAlexandra [place] [address] DO Work Phone: 1(653) [phone]y virus vaccine, unspecified formulationDO Sheldon Kuns Work Phone: [facility]09-19-2018influenza, high dose seasonal, preservative-freeMatthew Langenberg Other [facility]01-01-2018 pneumococcal conjugate vaccine, 13 valentBrett R Kuns Work Phone: [phone]-IoipuAlexandra [place] [address] DO Work Phone: 1(188) 460-723510386108-96-9381cjvantwpj virus vaccine, unspecified formulationDO Sheldon Kuns Work Phone: [facility]10-03-2017influenza, high dose seasonal, preservative-freeMatthew Langenberg Other [facility]10-01-2017influenza virus vaccine, unspecified formulationBrett R Kuns Work Phone: [phone]) [phone]-ZozifMahnomen Health Center 250 DO Work Phone: [phone]) [phone] per 15 mgMatthew Langenberg Other [employer] Other [phone] per 15 mgMatthew Langenberg Other [employer] Other [id number] virus vaccine, unspecified formulationDO Sheldon Kuns Work Phone: [facility]10-18-2016influenza, high dose seasonal, preservative-freeMatthew Langenberg Other [facility]10-01-2016influenza virus vaccine, unspecified formulationBrett R Kuns Work Phone: [phone]-StavnMahnomen Health Center 250 DO Work Phone: [phone]) [phone]mlm virus vaccine, unspecified formulationDO Sheldon Kuns Work Phone: [facility]10-09-2015influenza, high dose seasonal, preservative-freeMatthew Langenberg Other [facility]10-01-2015influenza virus vaccine, unspecified formulationBrett R Kuns Work Phone: [phone]-ZfpqzMahnomen Health Center 250 DO Work Phone: [phone]yxwraj, high dose seasonal, preservative-freeAlireza Apariciomarleni Other [employer] Other [id number] virus vaccine, unspecified formulationDO Sheldonnicola Xie Work Phone: [facility]10-10-2013zoster vaccine, liveBrenicola Xie Work Phone: [facility]01-01-2011 pneumococcal polysaccharide vaccine, 23 valentBrett R Anne-Marie Work Phone: [phone]-XqgouMahnomen Health Center 250 DO Work Phone: influenza virus vaccine, unspecified formulationBrenicola R Anne-Marie Work Phone: [phone]-UqnxoC[facility] 250 DO Work Phone: Comment on above:May Payers DatePayer CategoryPayerPolicy [id number] (Managed Care)[place] [id number]ITED HEALTHCARE MEDICARE UNITED HE[employer] MEDICARE [id number] 2023-Present [address] [place], [place] [id number] Health [id number] [id number] [id number] 1960Self-pay [id number] 2.16.840.1.765855.3.579.2.79129-57-6906Yttzags [id number] 2.16.840.1.324315.3.57[id number] 2.16.840.1.758040.3.57[id number] 2.16.840.1.265039.3.57[id number] 2.16.840.1.167268.3.57[id number] 2.16.840.1.463644.3.57[id number] 2.16.840.1.540196.3.57[id number] 2.16.840.1.429556.3.57[id number] 2.16.840.1.597063.3.57[id number] 2.16.840.1.648457.3.57[id number] 2.16.840.1.243862.3.57[id number] 2.16.840.1.508374.3.57[id number] 2.16.840.1.747661.3.57[id number] 2.16.840.1.336385.3.57[id number] 2.16.840.1.987[id number] 2.16.840.1.720254.19Medicare [id number] 2.16.840.1.9[id number] 2.16.840.1.022276.3.579.2.531 [id number] 2.16.840.1.751175.3.579.2.407Metfbcv2063 2.16.840.1.2[id number] 2.16.840.1.414861.3.579.2.531 [id number] 2.16.840.1.0[id number] 2.16.840.1.336637.3.579.2.531 Social History DateTypeDetailFacilityStart: 88-93-2672Csbkmu alcohol useSocial alcohol useSanta Fe [facility] Other Comment on above:Quit Smoking 1998 - smoked 1 PPD; Start: 63-68-2034Qko Assigned At [facility] [employer] Other Start: 03-07-2019 End: 86-11-9047Yksxcrd smoking status NHISEx-smoker (finding)[facility]ertart: 03-73-6336Dll Assigned At [facility] HospitalHistory of tobacco useCurrent smokerUnMarymount Hospital Work Phone: History of tobacco useCigarette SmokerUnMarymount Hospital Work Phone: Start: 37-11-4089Bqliycc use and exposureSmokeless tobacco non-userUnMarymount Hospital Work Phone: Start: 13-25-5716Uegvdixdb beverage intakeCurrent drinker of alcohol (finding)[facility] Work Phone: Start: 77-23-2790Hccdbdr Commentcouple times a year [facility] Work Phone: Start: 87-09-6861Fyi assigned at birthNot on file [facility] Work Phone: Start: 01-30-2024 End: 01-39-1072Ildrgfmp to SARS-CoV-2 (event)Not sureUnMarymount HospitalStart: 07-09-2024 End: 59-45-8991WziFbutxn (finding)[facility] HospitalTobacco smoking status NHISTobacco smoking consumption unknownNOAR HealthcareStart: 39-09-0171Xynfgq identityIdentifies as female gender (finding)[facility] Clinical Notes 03-20-2012 to 06-05-2025 Note Date & BuxuWmrjMmntkcbj37-41-4183 NoteCardiovascular Medicine [facility] SUBJECTIVE Chief Complaint Patient presents with Follow-up Patient is here today for a routine 3 month follow up. Patient states she feels wore out and don't have an appetite. Patient states if she gets herself worked up she gets chest pain, and off balance. Hypertension Chest Pain Hyperlipidemia PSVT Aleksandr Sanchez is a 84 y.o. female here for follow-up after her recent admission to [facility]. PMHx: SVT, COPD, HFpEF, pulmonary HTN, HLD Hypertension Associated symptoms include chest pain. Chest Pain Her past medical history is significant for hyperlipidemia. Hyperlipidemia Associated symptoms include chest pain. 02/06/25 She was recently admitted for acute [...] edema, dizziness/LH, palpitations *She previous saw a software quality analyst at [facility]. She would like to transfer her care to [facility]. Discharge summary: Hospital Course: Patient admitted [...] orthopnea, PND, LE edema, dizziness/LH, palpitations, syncope. Update 06/05/2025 Her daughter accompanied her today. She denies any changes since last seen. She is a little tearful today as things have been changing and she isn't able to do everything she use to be able to do. She did get her drivers license revoked due to worsening of her macular degeneration. She hasn't been writing down BP readings or weights due to worsening eye sight. Her CARUSO is stable. She remains on 1L of supplemental O2. She will see pulmonary in August to see if supplemental O2 will be a retirement thing. Denies c/o CP, orthopnea, PND, LE edema, dizziness/LH, palpitations, syncope. Problem List[1] Medical History[2] Family History[3] Social History[4] Allergies[5] OBJECTIVE Visit Vitals BP 105/65 (BP Location: Right arm, Patient Position: Sitting) Pulse 87 Ht 1.524 m (5') Wt 42.6 kg (94 lb) SpO2 91% Comment: without o2 on BMI 18.36 kg/m??? Smoking Status Former BSA 1.34 m??? Medications: Current Outpatient Medications: albuterol 2.5 [...] morning., Disp: , Rfl: metoprolol tartrate (Lopressor) 50 mg tablet, Take 1 tablet (50 mg) by mouth two times daily., Disp: 180 tablet, Rfl: 3 pravastatin (Pravachol) 40 mg tablet, Take 40 mg by mouth at bedtime., Disp: , Rfl: torsemide (Demadex) 10 mg tablet, Take 2 tablets (20 mg) by mouth in the morning. Increase torsemide to 20mg daily x7 days then alternate days of 10mg and 20mg daily, Disp: 180 tablet, Rfl: 3 potassium chlo (more content not included)...[facility] 06-04-2025 History of Present illness Narrative* Nan Anna MA - 06/04/2025 9:30 AM EDT Patient was in today as she is having retention issues with her left hearing aid. The patient is using oxygen but states she has always had trouble with this aid. I suggested that the wire might be abit too long. Patient was open to change and I changed wire to a 2M on the left. I also changed herto an XS closed dome and added a retention wire. Patient was able to insert this better and was able to remove her oxygen without displacing the aid. Patient states that her right CROS does not come out of her ear so no changes were made. Patient was scheduled for a follow up to see if the problem is better. Cosigned by LORNA Mercado at 06/04/2025 4:00 PM EDT documented in this encounterRusk Rehabilitation CenterBeponuvggu60-20-4790 NoteUT Electrophysiology Consult Note [facility] Reason for visit: AT. HPI: Aleksandr Sanchez is a 84 y.o. year old with past medical history of acute on chronic diastolic heart failure, pulmonary hypertension, SVT likely atrial tachycardia, COPD who has been under the care of Dr. CID and Mariam Marroquin. For the above she has been placed on Lopressor 50 mg twice daily. Patient is here today for a follow up appointment per Mariam Marroquin. Patient states she is doing well and has been released from home PT and home health. Patient denies chest pain, leg swelling. Patient complains of occasional racing heart/palpitations. PMH: Medical History[1] PSH: Surgical History[2] SH: Social Drivers of Health Tobacco Use: Medium Risk (04/08/2025) Patient History Smoking Tobacco Use: Former Smokeless Tobacco Use: Never Passive Exposure: Past Alcohol Use: Not on file Financial Resource Strain: Not on file Food Insecurity: Not on file Transportation Needs: Not on file Physical Activity: Not on file Stress: Not on file Social Connections: Not on file Intimate Partner Violence: Not on file Depression: Not on file Housing Stability: Not on file Utilities: Not on file Health Literacy: Not on file Allergies: Allergies[3] Weight: 43.5kg Visit Vitals BP 139/72 (BP Location: Left arm, Patient Position: Sitting) Pulse 72 Ht 1.524 m (5') Wt 43.5 kg (96 lb) SpO2 92% Comment: 1 lpm of o2 via n/c BMI 18.75 kg/m??? Smoking Status Former BSA 1.36 m??? Meds: Medications Ordered Prior to Encounter[4] ROS: Cardio Basic Cardiovascular Symptoms: no lightheadedness, no leg edema, no syncope, no orthopnea, no PND, no claudication, Constitutional Constitutional: no fever, no night sweats, no significant weight gain, no significant weight loss, no exercise intolerance Eyes Eyes: no dry eyes, no irritation, no vision change ENMT Ears: no difficulty hearing, no ear pain Nose: no frequent nosebleeds, Mouth/Throat: no sore throat, no bleeding gums, no snoring, no dry mouth, no mouth ulcers, no oral abnormalities, no teeth problems Respiratory Respiratory: no cough, no wheezing, no coughing up blood, no sleep apnea Musculoskeletal Musculoskeletal: no muscle aches, no muscle weakness, joint pain+, no back pain, no swelling in the extremities Integumentary Skin no rash, no ulcer, no varicosities, no discoloration, no pruritus Neurologic Neurologic: no loss of consciousness, no weakness, no numbness, no seizures, no dizziness, no headaches Psychiatric Psych: no depression, feeling safe in relationship, no alcohol abuse, Hematologic/Lymphatic Hematologic/Lymphatic no swollen glands, no bruising Physical Exam: Constitutional General Appearance: well-nourished, well-developed, appears stated age Level of Distress: comfortable Eyes ILENE Neck Neck: supple, trachea midline Carotid Arteries: bilateral normal upstroke, no bruits Jugular Veins: normal jugular venous pressure Thyroid: not enlarged Lungs Respiratory Effort: unlabored Chest Exam: normal curvature, no thoracic deformity Auscultation: clear, no wheezing, no rales, no rhonchi Cardiovascular Chest wall: Rate And Rhythm: regular Heart Sounds: normal S1, normal s2, no gallop Systolic Murmur: not heard Diastolic Murmur: not heard Extremities: no cyanosis, no edema, no peripheral signs of emboli Peripheral Pulses Radial Pulse: normal Abdomen Inspection and Palpation: soft, non distended, no bruit, non tender Neurologic Gait: normal gait Labs: @LABRESULTS@ No results found for: CHOLESTEROL TOTAL , HDL , LDL CALC , LDL DIRECT , TRIGLYCERIDES , TSH , T3 TOTAL , T4 TOTAL , THYROID PEROXIDASE AB , BNP EK02/27/2025 Episodes of sinus rhythm with nonsustained AT. Echo: 03/13/2025 Stress test: Coronary angiogram: @CATH@ Diagnostic Imaging: Assessment and Plan: - Nonsustained atrial tachycardia: Given the underlying significant COPD and pulmonary hypertension it is quite possible the patient has pulm multifocal atrial tachycardia. For now we will continue on beta-blockers as I do not find a convincing evidence to start the patient on anticoagulation as no A-fib has been documented. - HFpEF - Pulmonary hypertension - COPD with possible underlying cor pulmonale Patient will have follow-up with Accounting Teacher as well as cardiology for her chronic conditions. It is quite possible that as time goes on she may have underlying A-fib and at that time we will consider either implanting a loop monitor for further surveillance. Bautista Bliss MD Cardiac Electrophysiology [facility] [1] Past Medical History: Diagnosis Date CHF (congestive heart failure) (CMS/HCC) COPD (chronic obstructive pulmonary disease) (CMS/HCC) Hyperlipidemia Hypertension [2] Past Surgical History: Procedure Laterality Date APPENDECTOMY CARDI (more content not included)...[facility] 03-20-2025 NoteCardiovascular Medicine [facility] SUBJECTIVE Chief Complaint Patient presents with Congestive Heart Failure Pulmonary Hypertension Aleksandr Sanchez is a 84 y.o. female here for follow-up after her recent admission to [facility]. PMHx: SVT, COPD, HFpEF, pulmonary HTN, [...] edema, dizziness/LH, palpitations *She previous saw a software quality analyst at [facility]. She would like to transfer her care to [facility]. Discharge summary: Hospital Course: Patient admitted [...] normal. Palpations: Abdomen is (more content not included)...[facility]07-24-2025 NotePatient is here today for results of holter [...] on exertion. Respiratory: Positive for shortness of breath.[facility]07-21-2025 Evaluation note* Author Aleksandr Olivo [facility] HospitalAuthoredJuly 2024 10:07amThe above note written by CHAZ Hadley acting as human recorder, note dictated by Dr. Sheldon Xie. [facility] Work Phone: 1(703) 356-576107-03-2025 NoteCardiovascular Medicine [facility] SUBJECTIVE Aleksandr Sanchez is a 84 y.o. [...] edema, dizziness/LH, palpitations *She previous saw a software quality analyst at [facility]. She would like to transfer her care to [facility]. Discharge summary: Hospital Course: Patient admitted [...] this encounter. #Chronic diastol (more content not included)...[facility]06-12-2025 NotePatient is a new patient here to establish care and to be seen from a [facility] [employer] admission. Patient states she is feeling better. Patient was discharge home on 1lpm of o2 via n/c, o2 use is 24/7. Patient has CARUSO. Review of Systems Cardiovascular: Positive for dyspnea on exertion. Respiratory: Positive for shortness of breath.[facility]06-12-2025 NoteCardiovascular Medicine [facility] SUBJECTIVE Chief Complaint Patient presents with Hospital Follow-up Aleksandr Sanchez is a 84 y.o. female here for follow-up after her recent admission to [facility]. PMHx: SVT, COPD, HFpEF, pulmonary HTN, [...] edema, dizziness/LH, palpitations *She previous saw a software quality analyst at [facility]. She would like to transfer her care to [facility]. Discharge summary: Hospital Course: Patient admitted [...] 10mg daily. -Discussed im (more content not included)...[facility] 01-01-2025 History of Present illness Narrative* Nan Anna MA - 01/01/2025 3:00 PM EDT Patient was in today with ongoing complaints [...] 01/01/2025 3:43 PM EDT documented in this encounterRusk Rehabilitation [id number] Evaluation note* Diagnosis Onset Date Resolution Status Admit Date Hyperlipidemia acuteApril 2024 1:46pmHypertensionacuteApril 2024 1:46pmOsteoporosis acuteApril 2024 1:46pmWeight lossacuteApril 2024 1:46pmCHF (congestive heart failure)acuteJune 2024 1:06pmCOPD (chronic obstructive pulmonary disease)acuteJune 2024 1:06pmOsteoporosisacuteJune 2024 1:06pmOxygen dependentacuteJune 2024 1:06pmPneumoniaacuteJune 2024 1:06pmType 2 myocardial infarctionacuteJune 2024 1:06pmCHF (congestive heart failure)acuteJuly 2024 9:08amHypernatremiaacuteJuly 2024 9:08amPneumoniaacuteJuly 2024 9:08am [facility] Work Phone: 1(306) 500-215304-09-2025 History of Present illness Narrative* Nan Anna [...] 12/04/2024 1:00 PM EDT documented in this [facility]01-24-2025 Telephone encounter Note* Telephone Encounter - RAGHAV Ventura - 09/20/2024 4:33 PM EST Blocked time for HAF in [place] at 10:00 am on 11-13-2024 [facility] Mjkbmdqxlt29-28-1759 Miscellaneous Notes* Telephone Encounter - RAGHAV Ventura - 09/20/2024 4:33 PM EST Blocked time for HAF in [place] at 10:00 am on 11-13-2024 documented in this [facility]01-24-2025 Telephone encounter Note* Telephone Encounter - RAGHAV Ventura - 09/20/2024 4:28 PM EST Called [employer] and we have a 90 day fit period before any issues arise. According to the rep, as long as these aids are dispensed before 12-18-24, all is fine. Pt will call once she returns from [place] and can be fit with the aids when she returns. This will not affect her 60 day trial. [facility] [id number] Miscellaneous Notes* Telephone Encounter - RAGHAV Ventura - 09/20/2024 4:28 PM EST Called [employer] and we have a 90 day fit period before any issues arise. According to the rep, as long as these aids are dispensed before 12-18-24, all is fine. Pt will call once she returns from [place] and can be fit with the aids when she returns. This will not affect her 60 day trial. documented in this encounterRusk Rehabilitation [id number] History of Present illness Narrative* RAGHAV Ventura - 09/20/2024 1:00 PM EST History: Patient was referred for an audiological evaluation. She has benefits under her [facility] plan. Patient is currently wearing a [employer] [...] portal. She mentioned she is traveling for [place] in 2 weeks and will be gone for 1 month. Pt will need to be scheduled for HAF when she returns, Will call [employer] to see if they can hold order. documented in this [facility]01-23-2025 Evaluation note* Author Selene Musaencompass health rehabilitation hospitalmira [facility] 2024 2:01pmThe above note written by Selene WARE acting as human recorder, note dictated by Dr. Sheldon Xie. [facility] Work Phone: 1(454) 695-299909-19-2024 Evaluation note* Author Selene [facility]aBrown [facility] 2023 8:36amThe above note written by Selene WARE acting as human recorder, note dictated by Dr. Sheldon iXe. Author Aleksandr Olivo [facility] 2023 1:06pmThe above note written by CHAZ Hadley acting as human recorder, note dictated by Dr. Sheldon Xie. [facility] Work Phone: 1(978) 527-149709-19-2024 Evaluation note* Author Selene MusaBrown [facility] Hospital 2023 7:36amThe above note written by Selene WARE acting as human recorder, note dictated by Dr. Sheldon Xie. Author Aleksandr Pallavi [facility] 2023 12:06pmThe above note written by CHAZ Hadley acting as human recorder, note dictated by Dr. Sheldon Xie. [facility] Work Phone: 1(844) 248-555707-23-2024 Evaluation note* Author Alba Person [facility] 2023 2:12pmSooner if needed, the ER if concerns,The above note written by Alba Person LPN acting as human recorder, note dictated by Dr. Sheldon Xie [facility] Work Phone: 1(242) 830-702907-23-2024 Evaluation note* Author Alba Person [facility] 2023 2:12pmSooner if needed, the ER if concerns,The above note written by Alba Person LPN acting as human recorder, note dictated by Dr. Sheldon Xie Author Selene Storey [facility] HospitalAuthoredSeptember 2023 8:36amThe above note written by Selene WARE acting as human recorder, note dictated by Dr. Sheldon Xie. [facility] Work Phone: 1(333) 592-703806-14-2024 History of Present illness Narrative* Ronnie Amin [...] each nostril once daily., Disp: , Rfl: iycznhxoajc-iuefstncr-jnhznung (TRELEGY-ELLIPTA) 100-62.5-25 mcg blister with device, Inhale [...] DAILY, Disp: 90 tablet, Rfl: 3 vit V-R-iwlhuq-zinc-lutein (Eye Multivit-Lutein,C-E-Cu-Zn,) 226 mg-90 mg-2 mg- 34.8 [...] By signing my name below, I, Ayleen Light LPN , Scribe attest that this documentation has [...] exam, discussion and plan. documented in this encounterUnMarymount Hospital Work Phone: 1(156) 892-266006-14-2024 Instructions* Patient Instructions* Roxann Zamora CMA - [...] time of your visit. documented in this encounterChillicothe [facility] Work Phone: 1(653) 554-681706-03-2024 Evaluation note* Author Selene Storey [facility] 2023 11:20amThe above note written by Selene WARE acting as human recorder, note dictated by Dr. Sheldon Xie. Author Aleksandr Olivo [facility] 2023 12:48pmThe above note written by CHAZ Hadley acting as human recorder, note dictated by Dr. Sheldon Xie. [facility] Work Phone: 1(155) 931-358506-03-2024 Evaluation note* Author [facility]ene [facility] 2023 11:20amThe above note written by Selene WARE acting as human recorder, note dictated by Dr. Sheldon Xie. Author Alba Person [facility] 2023 2:12pmSooner if needed, the ER if concerns,The above note written by Alba Person LPN acting as human recorder, note dictated by Dr. Sheldon Xie [facility] Work Phone: 1(374) 801-219103-20-2024 Evaluation note* Author Aleksandr Olivo [facility] 2023 12:56pmThe above note written by CHAZ Hadley acting as human recorder, note dictated by Dr.Brett Xie . [facility] Work Phone: 1(916) 954-791303-20-2024 Evaluation note* Author Aleksandr Olivo [facility] 2023 12:56pmThe above note written by CHAZ Hadley acting as human recorder, note dictated by Dr.Brett Xie . Author Aleksandr Olivo [facility] 2023 12:48pmThe above note written by CHAZ Hadley acting as human recorder, note dictated by Dr. Sheldon Xie. [facility] Work Phone: 1(763) 572-839903-20-2024 Evaluation note* Author Aleksandr Olivo [facility] 2023 12:56pmThe above note written by CHAZ Hadley acting as human recorder, note dictated by Dr.Brett Xie . Author [facility] 2023 11:20amThe above note written by Selene WARE acting as human recorder, note dictated by Dr. Sheldon Xie. Author [facility]andr [facility]ivo [facility] 12:48pmThe above note written by CHAZ Hadley acting as human recorder, note dictated by Dr. Sheldon Xie. [facility] Work Phone: 1(290) 592-340612-13-2023 Evaluation note* Encounter Date Diagnosis Assessment Notes Treatment Notes Treatment Clinical Notes Jul, COPD (chronic obstructive pulmon raman disease) (ICD-10 - J44.9) Jul,yspnea (ICD-10 - R06.00) Only-apartments Other 11-07-2023 Evaluation note* Encounter Date Diagnosis Assessment Notes Treatment Notes Treatment Clinical Notes Jun, COPD (chronic obstructive pulmon raman disease) (ICD-10 - J44.9) Today will be the patients fourth session of respiratory therapy at [facility]. I am in agreement the patient establish care with a pulmonoloigst, she has seen in the past and did notcare for that physican. The patient is agreeable to seeing , therefore a referral was initiatd. A chest x-ray and PFT ordered as required prior to consult Jun,Restless legs syndrome (ICD-10 - G25.81) Jun,Foot fracture, right (ICD-10 - S92.901A) Pedal pulses are strong upon palpation. Due to persistent pain and edema of the right foot /leg. I am in agreement with providing a referral to vascular specialist, referral initiated Jun,Hypertension (ICD-10 - I10) Pt is to continue with the above medication, a refill was provided and we will continue to monitor. Jun,Hyperlipemia (ICD-10 - E78.5) Pt is to continue with the above medication and continue watching their diet and increase their exercise regimen. Blood work ordered to be collected in three months, Only-apartments Other 10-03-2023 Evaluation note* Encounter Date Diagnosis Assessment Notes Treatment Notes Treatment Clinical Notes May, Hypertension (ICD-10 - I10) Blood pressure is well controlled on current medications. She denies any exacerbation with cough. Potassium levels are within normal limits and renal function is stable. I do want her to continue with current meds as ordered May,Edema, unspecified type (ICD-10 - R60.9) No significant edema noted upon examination. No increased SOB to report. Renal function and remainder of chemestries are stable upon recent lab review. Weight is stable. I will have her continue withcurrent meds as ordered. Continue with compression stockings May,OPD (chronic obstructive pulmonary disease) (ICD-10 - J44.9) Patient has been under the care of Dr. Christina, Accounting Teacher, for her COPD but her last visit was 2021. She was advised to be seen in [...] patient and contact her with the information May,Hyperlipemia (ICD-10 - E78.5) Recent lab results reviewed with patient. Her lipid levels are well controlled on the pravastatin. Liver enzymes are normal. Denies any increased joint or muscle pain. I will have her continue with the current meds as ordered. May,RLS (restless legs syndrome) (ICD-10 - G25.81) Patient does have some cramping in the lower legs bilateral. She was ordered flexeril at the last visit but was not beneficial and she stopped it. She is currently using the Klonopin to help control the RLS and this does help somewhat. I will have her continue to use as ordered May,Fatigue, unspecified type (ICD-10 - R53.83) Patient does report significant fatigue. Her recent CBC is within normal limits and her thyroid levels are also normal. I feel this is directly related to the flexeril that she had been taking for the RLS and advised her to discontinue. She is in agreement May,Needs flu shot (ICD-10 - Z23) High dose flu vaccine provided today. VIS provided Only-apartments Other 09-05-2023 Evaluation note* Encounter Date Diagnosis Assessment Notes Treatment Notes Treatment Clinical Notes Apr, RLS (restless legs syndrome) ( D-10 - G25.81) Only-apartments Other 04-25-2023 Evaluation note* Encounter Date Diagnosis Assessment Notes Treatment Notes Treatment Clinical Notes Nov, Right foot pain (ICD-10 - M79.67 1) Nov,isplaced fracture of fifth metatarsal bone, right foot, subsequent encounter for fracture with routine healing (ICD-10 - S92.351D) X-rays were reviewed with the patient today, patient's fracture is progressing well since the startof the injury. Jeovany patient no longer needs to f/u with us for the foot, we reminded to see us afterher osteoporosis treatment. Patient f/u on a PRN basis. Only-apartments Other 04-04-2023 Evaluation note* Encounter Date Diagnosis Assessment Notes Treatment Notes Treatment Clinical Notes Nov, Foot fracture, right (ICD-10 - S 92.901A) Patient is healing from the right foot fracture and is following with ortho. She does have some skin discoloration noted of the right foot. Pedal pulses are felt. Skin is warm to touch. She has had 2Evenity injections to assist with bone healing and this foot will be reimaged again at the end of the month. She is progressing along well considering the severity of the osteoporosis. Advised to follow up as ordered with ortho for fracture care. Nov,Osteoporosis (ICD-10 - M81.0) Patient has known osteoporosis and does use prolia every 6 months. Patient does have significant osteoporosis and has recently been under the care of ortho for a fracture of the right foot. Patient is to continue with the osteoporosis treatment as ordered Nov,Hypertension (ICD-10 - I10) Blood pressure is good in office today. Denies any side effects of the lisinopril. No exacerbation of cough to report. She is tolerating the medication well and it is keeping her blood pressure controlled. She is to continue with lisinopril as ordered. Blood chemestries are reviewed today and are all within normal limits Nov,Hyperlipemia (ICD-10 - E78.5) Current lipid panel from September 2022 reviewed with patient and her lipid levels are well controlled with the use of the statin therapy. She is tolerating it well with no ill side effects to report.Liver enzymes are within normal limits. I am going to continue to keep her on the current treatmentregimen Nov,End of life care (ICD-10 - Z51.5) Per patient request we have provided her with literature on advance directives for her personal use. I did recommend she consult an client evaluator and discuss her wishes with her family. Only-apartments Other 03-27-2023 Evaluation note* Encounter Date Diagnosis Assessment Notes Treatment Notes Treatment Clinical Notes Oct, Osteoporosis (ICD-10 - M81.0) Only-apartments Other 02-02-2023 Evaluation note* Encounter Date Diagnosis Assessment Notes Treatment Notes Treatment Clinical Notes Sep, Foot fracture, right (ICD-10 - S 92.901A) Patient's most recent x-ray did not show much improvent in the healing process. She continues to bein an air cast but pain is improving. Encouraged patient to follow with Sammie Duran as scheduled. Sep,Hyperlipemia (ICD-10 - E78.5) Encouraged patient to obtain ordered blood work. Sep,Hypertension (ICD-10 - I10) Blood pressure is stable upon check in. Refill provided of the above medication. Sep,Osteoporosis (ICD-10 - M81.0) Patient is following with Sammie Duran who is working on getting an updated DEXA scan approved to have a comparison due to the prolonged healing process with her foot. She in the mean time was started on 600-800mg of Vitamin D and 1,200mg of Calcium. Patient has been receiving Prolia injectionsbut is in the process of obtaining approval for Evenity to use monthly for a year and then plans toswitch back to Prolia. Encouraged patient to follow with recommended treatment plan. Sep,epression, unspecified depression type (ICD-10 - F32.9) Patient does feel the above medication has been working well since starting and denies any adverse effects. She is to continue as directed. Only-apartments Other 02-02-2023 Evaluation note* Encounter Date Diagnosis Assessment Notes Treatment Notes Treatment Clinical Notes Sep, Osteopenia (ICD-10 - M85.80) Only-apartments Other 01-31-2023 Evaluation note* Encounter Date Diagnosis Assessment Notes Treatment Notes Treatment Clinical Notes Aug, Displaced fracture o f fifth metatarsal bone, right foot, subsequent encounter for fracture with routine healing (ICD-10 - S92.351D) Aug,ostmenopausal osteoporosis (ICD-10 - M81.0)Extensive discussion regarding osteoporosis and treatment options with [...] to take 1200mg of Calcium and 600 to800 units of Vitamin D. All questions and concerns were addressed with patient and daughter. Will call with lab results when they are completed. Only-apartments Other 01-19-2023 Evaluation note* Encounter Date Diagnosis Assessment Notes Treatment Notes Treatment Clinical Notes Aug, Right foot pain (ICD-10 - M79.67 1) Aug,isplaced fracture of fifth metatarsal bone, right foot, subsequent encounter for fracture with routine healing (ICD-10 - S92.351D)Patient instructed to continue use of boot, may remove when sedentary and while bathing. Weight bear as tolerated Aug,OtherDiscussed Prolia and Evenity. Patient will schedule for [facility] Only-apartments Other 01-06-2023 Evaluation note* Encounter Date Diagnosis Assessment Notes Treatment Notes Treatment Clinical Notes Aug, Foot fracture, right (ICD-10 - S 92.901A) Only-apartments Other 01-06-2023 Evaluation note* Encounter Date Diagnosis Assessment Notes Treatment Notes Treatment Clinical Notes Aug, Right foot pain (ICD-10 - M79.67 1) Aug,isplaced fracture of fifth metatarsal bone, right foot, initial encounter for closed fracture (ICD-10 - S92.351A) Aug,OtherPatient has sustained a 5th metatarsal fracture. We [...] Continue with Tylenol as needed for pain. Only-apartments Other 01-05-2023 Evaluation note* Encounter Date Diagnosis Assessment Notes Treatment Notes Treatment Clinical Notes Aug, COPD (chronic obstructive pulmon raman disease) (ICD-10 - J44.9) Aug,Injury of right foot, initial encounter (ICD-10 - S99.921A) Patient stepped wrong on the foot 2 days ago and felt a snap . She has pain with bruising and swelling of the right lateral side of the foot. I am going to order xrays for her and more than likely refer to burr grinder. It appears to have possible fracture. She is to wear a hard sole shoe/boot for support Aug,Right foot pain (ICD-10 - M79.671) right foot pain related to injury. Xray ordered Aug,epression, unspecified depression type (ICD-10 - F32.9) Patient stopped her citalopram some time ago and she is complaining of depression again. She is wanting to restart citalopram. I am in agreement with this and Rx will be sent today. I am getting somelab on her and I want to see her again in about 4 weeks. Aug,Skin irritation (ICD-10 - R23.8) Patient notes cracking of the skin of her fingers. She has used the diprolene cream in the past with success. Rx ordered Aug,Hyperlipemia (ICD-10 - E78.5) Lipids panel ordered and CMP Aug,Hypertension (ICD-10 - I10) K1 ordered for patient and will review at next visit Only-apartments Other 12-08-2022 Evaluation note* Encounter Date Diagnosis Assessment Notes Treatment Notes Treatment Clinical Notes Jul, Restless legs syndrome (ICD-10 - G25.81) Only-apartments Other 12-02-2022 Evaluation note* Encounter Date Diagnosis Assessment Notes Treatment Notes Treatment Clinical Notes Jul, Acute cough (ICD-10 - R05.1) Only-apartments Other 10-27-2022 Evaluation note* Encounter Date Diagnosis Assessment Notes Treatment Notes Treatment Clinical Notes May, Abdominal pain, unspecified abdo silvano location (ICD-10 - R10.9) Reviewed CT of [...] Her weight is stable from last visit May,ib pain on right side (ICD-10 - R07.81) Reviewed CXR and Right rib series. No acute changes identified. The ribs did demonstrate osteoporosis. COPD identified but nothing new. May,Hypercalcemia (ICD-10 - E83.52) I have repeated CMP to look at the calcium level again as at last visit it was slightly elevated. Upon review the calcium level is now within normal limits. Remainder of lab is also within normal limits May,Visual changes (ICD-10 - H53.9) Patient does have known glaucoma and Macular Degeneration. Patient reports since she has started the new inhalers ordered from the program evaluator, she has noticed worsened vision and she is concerned this may be causing her pressures to be elevated. She is scheduled to see eye doctor next month. Patient encouraged to contact program evaluator to advise of the visual changes and see if the inhaler needs to be changed. She is also contacting the eye doctor May,OPD (chronic obstructive pulmonary disease) (ICD-10 - J44.9) Patient advised to contact Dr. Christina re: the visual changes that she feels is associated with the new inhalers. This may need to be changed. I may need to put her back on the Trelegy if needed but she is to call program evaluator first. Voiced understanding Only-apartments Other 10-06-2022 Evaluation note* Encounter Date Diagnosis Assessment Notes Treatment Notes Treatment Clinical Notes May, Weight loss (ICD-10 - R63.4) May,bdominal pain, unspecified abdominal location (ICD-10 - R10.9) Only-apartments Other 09-27-2022 Evaluation note* Encounter Date Diagnosis Assessment Notes Treatment Notes Treatment Clinical Notes Apr, Hyperlipemia (ICD-10 - E78.5) Lipid panel has been reviewed with patient. Levels are within normal limits. Glucose is good. Chemestries are within normal limits. Liver enzymes are within normal limits. Continue with current statin therapy Apr,hronic obstructive pulmonary disease, unspecified COPD type (ICD-10 - J44.9) Patient is following with Dr. Christina, Accounting Teacher, for her COPD. She does have some [...] the results in terms she can understand. Apr,Hypertension (ICD-10 - I10) Blood pressure is well controlled on current medication. Her renal panel looks stable. Electrolytesare within normal limits Apr,Weight loss (ICD-10 - R63.4) Lab results reviewed with patient. Thyroid level is normal. Her calcium level is at 10.4 which is just slightly higher than previous of 10.0 and this will be monitored. Her weight is down slightly and reports that her appetite has not been the best Apr,bdominal pain, unspecified abdominal location (ICD-10 - R10.9) Patient reports some centered abdominal pain. Her appetite has been poor. She is losing weight. Shehas not had any recent imaging done. Due to her pain and weight loss, I feel a CT scan of her abdomen and pelvis is warranted at this time. If this is negative, then she may need to be scoped. Patient is in agreement and this is ordered today Apr,ib pain on right side (ICD-10 - R07.81) Right sided rib pain at times. Patient states Dr. Christina told her she had a rib out of place . I have examined patient and I feel she should have a CXR and right rib series to evaluate her pain. Apr,Hypercalcemia (ICD-10 - E83.52) Repeat CMP ordered to monitor the elevated calcium level. Apr,Needs flu shot (ICD-10 - Z23) Only-apartments Other 09-19-2022 Evaluation note* Encounter Date Diagnosis Assessment Notes Treatment Notes Treatment Clinical Notes Apr, Restless legs syndrome (ICD-10 - G25.81) Only-apartments Other 07-26-2022 Evaluation note* Encounter Date Diagnosis Assessment Notes Treatment Notes Treatment Clinical Notes Feb, Hypertension (ICD-10 - I10) Blood pressure is good in office today. Patient is to continue with current blood pressure mediation regimen and will follow up Feb,epression, unspecified depression type (ICD-10 - F32.9) Patient is tolerating medication well. She is to continue as this is controlling her depression Feb,Hyperlipemia (ICD-10 - E78.5) Patient is tolerating statin therapy fine. This is to be continued. Lab ordered Feb,2COPD (chronic obstructive pulmonary disease) (ICD-10 - J44.9) Patient does have known COPD and has been using the Trelegy daily and nebulizer as needed. She has noted some improvement with her breathing since she was started on a diuretic. Patient noted from software quality analyst office that her oxygen level did drop significantly during ambulation and it was felt by the software quality analyst that perhaps oxygen is needed and a pulmonary consult is warranted. I would like torefer patient to Dr. Christina for consultation. Patient is in agreement. Referral initiated. Feb,Edema, unspecified type (ICD-10 - R60.9) Patient was recently evaluated by Dr. Amin, Chief Growth Officer, for the dyspnea that patient had been experiencing. Per that office oxygen levels did drop with activity and it was felt that patient could benefit from oxygen supplement. She was started on Torsemide 10 mg daily to see if this helps withthe dyspnea and edema that she had been experiencing. Patient does feel the medication does help with the dyspnea and edema that she was having. This should be continued and follow up with Dr. Amin as sheduled. Feb,cute right-sided thoracic back pain (ICD-10 - M54.6) Patient is reporting acute right sided thoracic back pain and rib pain. Denies any injury to the area. She does have known osteoporosis and does get Prolia injections every 6 months. Her next dose isdue in March. Patient does have point tenderness in the right upper thoracic area that radiates around to the ribs on the right side. Feb,ib pain on right side (ICD-10 - R07.81) Acute onset of right sided rib pain. Denies injury. Pain upon palpation. Patient is going to see pulmonogist Feb,yspnea on exertion (ICD-10 - R06.09) Referral initiated to Dr. Christina, Accounting Teacher Only-apartments Other 06-15-2022 Evaluation note* Encounter Date Diagnosis Assessment Notes Treatment Notes Treatment Clinical Notes Jan, Restless legs syndrome (ICD-10 - G25.81) Only-apartments Other 05-25-2022 Evaluation note* Encounter Date Diagnosis Assessment Notes Treatment Notes Treatment Clinical Notes December, COPD (chronic obstructive pulmon raman disease) (ICD-10 - J44.9) Only-apartments Other 04-26-2022 Evaluation note* Encounter Date Diagnosis Assessment Notes Treatment Notes Treatment Clinical Notes Nov, Osteoporosis (ICD-10 - M81.0) Patient is to continue with prolia injections every 6 months as scheduled. Calcium levels are within normal limits. Nov,ubmandibular gland inflammation (ICD-10 - K11.20) Patient has finished the antibiotic provided. Still has some persisent swelling of the right submandibular gland even after the antibiotic. Some tenderness upon palpation. Will watch closely and patient to call if this should worsen Nov,OPD (chronic obstructive pulmonary disease) (ICD-10 - J44.9) Patient states her nebulizer machine is no longer working. She is need of a new nebulizer machine with tubing. She is going to order new nebulizer machine online as she can get it for just around $25and will get these treatments restarted. Patient does not need any refill on medication at this time. Patient is to call this office if she needs any further assistance getting a new machine or refills. Only-apartments Other 04-07-2022 Evaluation note* Encounter Date Diagnosis Assessment Notes Treatment Notes Treatment Clinical Notes Nov, Hypertension (ICD-10 - I10) Blood pressure is slightly elevated upon check in. She was encouraged to follow with cardiology as scheduled and continue with the above medication. Nov,OPD (chronic obstructive pulmonary disease) (ICD-10 - J44.9) Review of chest x-ray and D-dimer labs, these were both unremarkable. She does continue to be shortof breath especially with exertion. I did encourage her to continue with Trelegy and restart using the albuterol nebulizer treatments BID. If this persists, we will consider consulting with cardiology to rule out cardiac etiology for the shortness of breath. She is in agreement and voiced understanding. Nov,ubmandibular gland inflammation (ICD-10 - K11.20) The patient does have notable swelling and tenderness at the left submandibular region as well as soreness with her bottom denture. I did prescribe the above oral antibiotic. We will continue to monitor. Medication e-scribed. Only-apartments Other 03-30-2022 Evaluation note* Encounter Date Diagnosis Assessment Notes Treatment Notes Treatment Clinical Notes Oct, Hypertension (ICD-10 - I10) Blood pressure was WNL upon check in. Therefore, patient is to continue with the above medication regimen. Oct,eripheral arterial disease (ICD-10 - I73.9) Reviewed Dr. Jackson consult noted. Patient was cleared by vascular and no follow ups are neededat this time. Oct, 2Depression, unspecified depression type (ICD-10 - F32.9) Patient is to continue with the above medication. Oct,estless legs syndrome (ICD-10 - G25.81) Patient is to continue with the above medication. Oct,OB (shortness of breath) (ICD-10 - R06.02) Due to the patients recent travel history I am concerned of possible PE. Stat blood work and chest XR ordered for patient to have done today. Oct,hest pain, unspecified type (ICD-10 - R07.9) In house EKG was normal. Oct,OPD (chronic obstructive pulmonary disease) (ICD-10 - J44.9) Chest XR ordered for patient to have done today. Patient is to continue with the above inhaler. Oct,Fungal infection (ICD-10 - B49) Refill provided of the above cream. Oct,ough (ICD-10 - R05.9) Upon ausculation, the lungs sound clear. I did order a chest XR for patient to have done today. Only-apartments Other 02-23-2022 Evaluation note* Encounter Date Diagnosis Assessment Notes Treatment Notes Treatment Clinical Notes Sep, Osteoporosis (ICD-10 - M81.0) Only-apartments Other 02-22-2022 Evaluation note* Encounter Date Diagnosis Assessment Notes Treatment Notes Treatment Clinical Notes Sep, Restless legs syndrome (ICD-10 - G25.81) Only-apartments Other 02-10-2022 Evaluation note* Encounter Date Diagnosis Assessment Notes Treatment Notes Treatment Clinical Notes Sep, Osteoporosis (ICD-10 - M81.0) Only-apartments Other 10-14-2021 Evaluation note* Encounter Date Diagnosis [...] see her as needed in the future. Only-apartments Other 07-24-2012 History general Narrative - Reported* Type Description Date Medical History lipid panel- [id number]-hemo globin A1c done 03-20-12 Medical Jzluzyc04/17/12 CT [facility] 04/03/13, 11/2018Medical HistoryColonoscopy done 2006Medical History Mammogram done in 2007Medical Gkyrecd39/10/13 LabsMedical Aixcosn06/11/11[facility]13, 08/24/15 WNL-mammogram at [facility] Medical History09/15/[address] [facility] Jiedybm[facility]2016- skin cancer removed from left bottom eye lidMedical History09/12/16 mammogramMedical Historysacral fractureMedical HistoryhyperlipidemiaMedical HistoryHTNMedical Historyischemic colitisMedical Bbirdre22/2021 community outreach vascular studiesMedical Qrjsuim12/2021 DEXASurgical HistoryappendectomySurgical History hysterectomySurgical History2 ear surgeriesHospitalization Historysee above Only-apartments Other Evaluation noteNo InformationNort [employer] Market Other Evaluation noteN[employer] [employer] Other Evaluation noteN[employer] [place] [employer] Other Evaluation noteNo assessment information available [facility] Work Phone: Evaluation note* Diagnosis Onset Date Resolution Status Apnea, sleep acuteCOPD (chronic obstructive pulmonary disease)acute [facility] Work Phone: Evaluation note* Author Aleksandr Olivo [facility] HospitalhoredSelect [facility], [facility] 2023 12:56pmThe above note written by CHAZ Hadley acting as human recorder, note dictated by Dr.Brett Xie . [facility] Work Phone: Evaluation note* Diagnosis Benign essential hypertension- Primary Essential hypertension, benign Paroxysmal supraventricular tachycardia (CMS-HCC) Paroxysmal supraventricular tachycardia Mixed hyperlipidemia Former cigarette smoker Personal history of tobacco use, presenting hazards to health documented in this encounter [facility] Work Phone: Evaluation note* Author Selene Storey [facility] HospitalAuthoredJanuary 2024 1:01pmThe above note written by Selene WARE acting as human recorder, note dictated by Dr. Sheldon Xie. [facility] Work Phone: Evaluation note* Diagnosis Mixed conductive and sensorineural hearing loss of right ear with restricted hearing of left ear- Primary [facility] Diagnosis Mixed conductive and sensorineural hearing loss of right ear with restricted hearing of left ear- Primary [facility]* Diagnosis Onset Date Resolution Status Admit Date Hyperlipidemia acuteApril 2024 1:46pmHypertensionacuteApril 2024 1:46pmWeight loss acuteApril 2024 1:46pm [facility] Work Phone: History general Narrative - [facility]No[facility] environment Other History general Narrative - ReportedNoG[facility] ff[facility] environment Other Reason for referral (narrative)* Consultation (Routine) - AuthorizedSpecialtyDiagnoses / ProceduresReferred By Contact Referred To ContactCardiology Diagnoses Paroxysmal supraventricular tachycardia ([facility]) Procedures Follow Up In Cardiology Ronnie Amin MD [address] [facility] [address], [address] [address] Celestina Khalil MD [facility] [facility] [address], [address] [place] [address] Referral IDStatusReasonStart DateExpiration DateVisits RequestedVisits [id number]/[id number]/ [facility] Work Phone: Reason for referral (narrative)No reason for referral information availableGenesis Hospital Work Phone: Family History No Family [...] Relationship Condition Age at Onset Recorded Date/T nagie Not Specified Coronary artery disease Unknown fatherDeceasedUnknownNot SpecifiedDeceasedUnknown Relationship Condition Age at Onset Recorded Date/T angie Not Specified Coronary artery disease Unknown DeceasedUnknownfatherDeceasedUnknown Relationship Condition Age at Onset Recorded Date/T angie mother Coronary artery disease Unknown DeceasedUnknownfatherDeceasedUnknown Summary Purpose Advance Directives No Advanced Directives Records Found Advance Directive Response Recorded Date/ Time Advance Directives No October 30 10:35am Advance Directive Response Recorded Date/ Time Advance Directives No October 30 9:35am Reason for Referral Reason 10/30/23 @ 10:30am consult and treat Diagnosis 1 COPD (chronic obstru ctive pulmonary disease) (J44.9) Referral Organization [facility] Referring Provider First Name Sheldon Referring Provider Last Name Anne-Marie Referring Provider Specialty Family Prac nino Referred Organization [facility] Referred Provider Dre Looney Referred Address [address] [place] [address],[place], [place],[address] Referred Provider Specialty Pulmonary Cici connolly Referral Priority Routine Referral Appointment Date 2023-10-30 General Notes Gabrielle Valero 023 03:15:11 PM >Received today and sent P2P. 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) Diagnosis 2 Foot fracture, right (L52.839O) Referral Organization [facility] Referring Provider First Name Sheldon Referring Provider Last Name Anne-Marie Referring Provider Specialty Family Prac nino Referred Provider Specialty Vascular Patricio lee Referral Priority Routine Reason 09/02/22 @ 10:00am consult and treat Diagnosis 1 Foot fracture, right (K61.530G) Referral Organization [facility] Referring Provider First Name Sheldon Referring Provider Last Name Anne-Marie Referring Provider Specialty Family Evon oneill Referred Organization [facility] Referred Provider Sammie Duran Referred Address [address] [facility] [place],[address] Referred Provider Specialty Nurse Amber barrow Referral Priority Routine Referral Appointment Date 2022-09-02 General Notes Pallavi Olivo 09:15:42 AM >pt will be going [facility] pt will see a PHOTOENGRAVING APPRENTICE today 09/02/22 and request a full referral. I couldn't find the [facility] facility to send it myself [facility] 09/02/2022 10:38:16 AM >Not a problem. It fixed and sent this P2P [facility] 09/05/2022 10:47:49 AM >Office notes not locked yet [facility] 09/06/2022 10:03:07 AM >Telephone encounter was already sent by Sammie Duran Reason Patient is needing p ulmonary consult and treatment. Please call patient with appt date and time. Thanks. Diagnosis 1 COPD (chronic obstru ctive pulmonary disease) (J44.9) [facility] Referring Provider First Name Sheldon Referring Provider Last Name Anne-Marie Referring Provider Specialty Family Evon oneill Referred Organization Unknown Facility Referred Provider Elma Christina Referred Provider Specialty Pulmonary Cici cornejoes Referral Priority Routine Chief Complaint and Reason [...] Amb Documentation m54.32 2 month f/u Dyspnea COPDReason for VisitApnea, sleep COPD (chronic obstructive pulmonary disease) Chief Complaint r06.00 e78.5 Amb Documentation m54.32 2 month f/u Dyspnea COPD Amb Documentation 6 week f/uReason for VisitApnea, sleep COPD (chronic obstructive pulmonary disease) COPD (chronic obstructive pulmonary disease) Depression Foot fracture, right Left hip pain Left sciatic nerve pain Lumbar degenerative disc disease Post-menopausal osteoporosis Chief Complaint r06.00 e78.5 Amb Documentation m54.32 2 month f/u Dyspnea COPD Amb Documentation 6 week f/u M81.0 - Age-related osteoporosis without current p 1 year follow upReason for VisitApnea, sleep COPD (chronic obstructive pulmonary disease) COPD (chronic obstructive pulmonary disease) Depression Foot fracture, right Left hip pain Left sciatic nerve pain Lumbar degenerative disc disease Post-menopausal osteoporosis Post-menopausal osteoporosis Chief Complaint r06.00 e78.5 Amb Documentation m54.32 2 month f/u Dyspnea COPD Amb Documentation 6 week f/u M81.0 - Age-related osteoporosis without current p 1 year follow up M54.32 M25.552Reason for VisitApnea, sleep COPD (chronic obstructive pulmonary disease) COPD (chronic obstructive pulmonary disease) Depression Foot fracture, right Left hip pain Left sciatic nerve pain Lumbar degenerative disc disease Post-menopausal osteoporosis Post-menopausal osteoporosis Chief Complaint e78.5 Amb Documentation m54.32 2 month f/u Dyspnea COPD Amb Documentation 6 week f/u M81.0 - Age-related osteoporosis without current p 1 year follow up M54.32 M25.552 G47.30Reason for VisitApnea, sleep COPD (chronic obstructive pulmonary disease) COPD (chronic obstructive pulmonary disease) Depression Foot fracture, right Left hip pain Left sciatic nerve pain Lumbar degenerative disc disease Post-menopausal osteoporosis Post-menopausal osteoporosis Chief Complaint e78.5 Amb Documentation m54.32 2 month f/u Dyspnea COPD Amb Documentation 6 week f/u M81.0 - Age-related osteoporosis without current p 1 year follow up M54.32 M25.552 G47.30 G47.30 1 month f/uReason for VisitApnea, sleep COPD (chronic obstructive pulmonary disease) COPD [...] lbp leg weakness follow up PT per brkReason for VisitCOPD (chronic obstructive pulmonary disease) Depression Foot fracture, [...] follow up PT per brk lbp leg weaknessReason for VisitCOPD (chronic obstructive pulmonary disease) Depression Left hip pain Osteoporosis COPD (chronic obstructive pulmonary disease) Restless leg syndrome GERD (gastroesophageal reflux disease) Left hip pain Leg weakness Chief Complaint CEA: 3 mo f/u COPD follow up PT per brk lbp leg weakness 3 month f/uReason for VisitCOPD (chronic obstructive pulmonary disease) GERD (gastroesophageal reflux disease) Left hip pain Leg weakness Eustachian tube dysfunction Fatigue Hearing impaired Hyperlipidemia Hypertension Left hip pain Chief Complaint lbp leg weakness 3 month f/u E78.5Reason for VisitEustachian tube dysfunction Fatigue Hearing impaired Hyperlipidemia Hypertension Left hip pain Chief Complaint lbp leg weakness 3 month f/u E78.5 Neck fullness? lab review/wanted sooner apptReason for VisitEustachian tube dysfunction Fatigue Hearing impaired Hyperlipidemia Hypertension Left hip pain Hyperlipidemia Neck fullness Cough Chief Complaint lbp leg weakness 3 month f/u E78.5 Neck fullness? lab review/wanted sooner appt r05.9Reason for VisitEustachian tube dysfunction Fatigue Hearing impaired Hyperlipidemia Hypertension Left hip pain Hyperlipidemia Neck fullness Cough Chief Complaint 3 month f/u E78.5 Neck fullness? lab review/wanted sooner appt r05.9 6 MONTHSReason for VisitEustachian tube dysfunction Fatigue Hearing impaired Hyperlipidemia Hypertension Left hip pain Hyperlipidemia Neck fullness Cough Post-menopausal osteoporosis Chief Complaint E78.5 Neck fullness? lab review/wanted sooner appt r05.9 6 MONTHS 3 month f/uReason for VisitHyperlipidemia Neck fullness Cough Post-menopausal osteoporosis COPD (chronic obstructive pulmonary disease) Fall Left lumbar pain Needs flu shot Rib pain on right side Chief Complaint E78.5 Neck fullness? lab review/wanted sooner appt r05.9 6 MONTHS 3 month f/u W19.XXXA M54.50 R07.81Reason for VisitHyperlipidemia Neck fullness Cough Post-menopausal osteoporosis COPD (chronic [...] am Pneumonia March 17, 2025 9:08 am Chief Complaint Admit Date Hospital F/U-pneumonia February 12, 2025 1 :06pm 1 month f/u March 17, 2025 9:08 am CEA: 1 yr f/u COPD April 10, 2025 8: 33am Reason for Visit Admit Date CHF (congestive heart failure) January 1:06pm COPD (chronic obstructive pulmonary dise ase) February 12, 2025 1:06pm Osteoporosis February 12, 2025 1:06 pm Oxygen dependent February 12, 2025 1:06 pm Pneumonia February 12, 2025 1:06 pm Type 2 myocardial infarction February 12, 2025 1:06pm CHF (congestive heart failure) February 9:08am Eustachian tube dysfunction March 17, 2 025 9:08am Hypernatremia March 17, 2025 9:08 am Pneumonia March 17, 2025 9:08 am COPD (chronic obstructive pulmonary dise ase) April 10, 2025 8:33am GERD (gastroesophageal reflux disease) A ugust 2024 8:33am Additional Source Comments INFORMATION SOURCE (unrecogn ized section and content) DATE CREATED AUTHOR 02/09/2022 [employer] DATE CREATED AUTHOR AUTHOR'S ORGANIZ ATION 01/11/2023 [facility] DATE CREATED AUTHOR AUTHOR'S ORGANIZ ATION 10/01/2023 [facility] DATE CREATED AUTHOR AUTHOR'S ORGANIZ ATION 11/16/2024 [facility] DATE CREATED AUTHOR AUTHOR'S ORGANIZ ATION 02/06/2025 [facility] DATE CREATED AUTHOR AUTHOR'S ORGANIZ ATION 06/06/2025 [facility] DATE CREATED AUTHOR AUTHOR'S ORGANIZ ATION 06/12/2025 [facility] REASON FOR VISIT (unrecogniz ed section and content) ReasonCommentsAnnual Exam Care Teams (unrecognized sec tion and content) Team Status: Active Member Role Status Dates Sheldon Xie DO Primary Care Provider Active Team Status: Active Member Role Status Dates Sheldon Xie DO Primary Care Provider Active Sta rt: January 22, 2025 Sheldon Xie DOAttcindy ProviderActiveStart: January 22, 2025 Team Status: Active Member Role Status Dates Sheldon Xie DO Primary Care Provider Active Sta rt: January 23, 2025 Dayna Gilbert ProviderActiveStart: January 23, 2025 Team Status: Active Member Role Status Dates Sheldon Xie DO Primary Care Provider Active Sta rt: January 24, 2025 Dayna Gilbert ProviderActiveStart: January 24, 2025 Team Status: Active Member Role Status Dates Sheldon Xie DO Primary Care Provider Active Sta rt: January 25, 2025 Dayna Gilbert ProviderActiveStart: January 25, 2025 Team Status: Active Member Role Status Dates Sheldon Xie DO Primary Care Provider Active Sta rt: January 26, 2025 Dayna Gilbert ProviderActiveStart: January 26, 2025 Team Status: Active Member Role Status Dates Sheldon Xie DO Primary Care Provider Active Sta rt: January 27, 2025 Dayna Gilbert ProviderActiveStart: January 27, 2025 Team Status: Active Member Role Status Dates Sheldon Xie DO Primary Care Provider Active Sta rt: January 28, 2025 Dayna Gilbert ProviderActiveStart: January 28, 2025 Team Status: Active Member Role Status Betzy Xie DO Primary Care Provider Active Sta rt: January 29, 2025 Dayna Gilbert ProviderActiveStart: January 29, 2025 Team Status: Active Member Role Status Dates Sheldon Xie DO Primary Care Provider Active Sta rt: January 30, 2025 Dayna Barber ProviderActiveStart: January 30, 2025 Team Status: Active Member Role Status Dates Sheldon Xie DO Primary Care Provider Active Sta rt: January 31, 2025 Caleb Hernandez , MDAttending ProviderActiveStart: January 31, 2025 Team Status: Inactive Member Role Status Betzy Xie DO Primary Care Provider Active Sta rt: February 12, 2025 End: February 12maverick Xie , DOAttending ProviderActiveStart: February 12, 2025 End: February 12, 2025 Team Status: Active Member Role Status Betzy Xie DO Primary Care Provider Active Sta rt: February 13, 2025 Sheldon Xie DOAttending ProviderActiveStart: February 13, 2025 Team Status: Active Member Role Status Betzy Xie DO Primary Care Provider Active Sta rt: February 27, 2025 Iam Claudioending ProviderActiveStart: February 27, 2025 Team Status: Inactive Member Role Status Betzy Xie DO Primary Care Provider Active Sta rt: March 17, 2025 End: March 17maverick Xie , DOAttending ProviderActiveStart: March 17, 2025 End: March 17, 2025 Team Status: Active Member Role Status Betzy Xie DO Primary Care Provider Active Sta rt: March 31, 2025 Artem Marroquin PHOTOENGRAVING APPRENTICE-CAttending ProviderActiveStart: March 31, 2025 Team Status: Inactive Member Role Status Betzy Xie DO Primary Care Provider Active Sta rt: April 10, 2025 End: April 10victoria Looney MDAttending ProviderActiveStart: April 10, 2025 End: April 10, 2025 Team Status: Inactive Member Role Status Betzy [...] Provider Active Sta rt: July 08, 2024 Sammie Duran PHOTOENGRAVING APPRENTICE-CAttending ProviderActiveStart: July 08, 2024 Team Status: Inactive Member Role Status Dates Hseldon Kuns , DO Primary Care Provider Active Sta rt: July 09, 2024 End: July 09hristopher E Auer , MDAttending ProviderActive Start: July 09, 2024 End: July 09, [...] Provider Active Sta rt: November 06, 2023 RYDER CastañedaAAtmadie ProviderActiveStart: November 06, 2023 Team Status: Inactive Member Role Status Betzy Xie DO Primary Care Provide r, Attending Provider Active Start: November 15, 2023 End: November 15, 2023 Team Status: Inactive Member Role Status Betzy Xie DO Primary Care Provider Active Sta rt: November 16, 2023 End: November 16, 2023HOLLY RichardsCAttending ProviderActiveStart: November 16, 2023 End: November 16, 2023 Team Status: Inactive Member Role Status Betzy Xie DO Primary Care Provide r, Attending Provider Active Start: November 20, 2023 End: November 20, 2023 Team Status: Inactive Member Role Status Betzy Xie DO Primary Care Provider Active Sta rt: December 05, 2023 End: December 04victoria Looney , MDAttending ProviderActiveStart: December 05, 2023 End: December 05, 2023 Team Status: Active Member Role Status Betzy Xie DO Primary Care Provider Active Sta rt: December 06, 2023 Dre Looney MDAnicolaending Provider, Other ProviderActiveStart: December 06, 2023 Team Status: Inactive Member [...] Sta rt: January 09, 2024 End: January 08hrBeatris Vazquezending ProviderActiveStart: January 09, 2024 End: January 09, 2024 [...] Betzy Xie DO Primary Care Provider Active Sammie Duran NP-CAttending ProviderActive Team Status: Inactive Member Role Status Betzy Xie DO Primary Care Provider, Attending Provi jessica Active Sammie Duran PHOTOENGRAVING APPRENTICE-CReferring ProviderActive Team Status: Inactive Member Role Status Betzy [...] Sta rt: September 01, 2023 End: September 01hrBeatris Vazquezending ProviderActiveStart: September 01, 2023 End: September 01, 2023 Team Status: Inactive Member Role Status Betzy Xie DO Primary Care Provide r, Attending Provider Active Start: September 26, 2023 End: September 26, 2023 Team Status: Active Member Role Status Betzy Xie DO Primary Care Provider Active Sta rt: October 05, 2023 Jocelyn Ching ProviderActiveStart: October 05, 2023 Team Status: Inactive Member Role Status Dates Sheldon Xie DO Primary Care Provide r, Attending Provider Active Start: October 10, 2023 End: October 10, 2023 Team Status: Inactive Member Role Status Dates Sheldon Xie DO Primary Care Provider Active Sta rt: October 17, 2023 End: October 17victoria Looney MDAttending ProviderActive Start: October 17, 2023 End: October 17, 2023 Team Status: Active Member Role Status Dates Sheldon Xie DO Primary Care Provider Active Sta rt: November 16, 2023 Sammie Duran , PHOTOENGRAVING APPRENTICE-CAttending ProviderActiveStart: November 16, 2023 Team MemberRelationshipSpecialtyStart DateEnd Date Sheldon Xie DO [facility]08/28/99 Team Status: Inactive Member Role Status Betzy Xie DO Primary Care Provide r, Attending Provider Active Start: May 16, 2024 End: May 16, 2024 Team Status: Inactive Member Role Status Dates Sheldon Xie DO Primary Care Provider Active Sta rt: June 06, 2024 End: June 06, 2024Sammie Duran , PHOTOENGRAVING APPRENTICE-CAttending ProviderActiveStart: June 06, 2024 End: June 06, 2024 Team Status: Inactive Member Role Status Dates Sheldon Xie DO Primary Care Provide r, Attending Provider Active Start: June 18, 2024 End: June 18, 2024Team MemberRelationshipSpecialtyStart DateEnd Date Sheldon Xie DO [address] [place] [address] [facility]11/13/24 Team Status: Inactive Member Role Status Betzy Xie DO Primary Care Provide r, Attending Provider Active Start: December 24, 2024 End: December 24, 2024Team MemberRelationshipSpecialtyStart DateEnd Date Sheldon Xie DO [address] [place] [address] PCP - GeneralFamily Medicine12/26/24 Team Status: Inactive Member Role Status Dates Sheldon Xie DO Primary Care Provider Active Sta rt: December 24, 2024 End: December 24rett DO Anne-MarieAttending ProviderActiveStart: December 24, 2024 End: December 24, 2024Team MemberRelationshipSpecialtyStart DateEnd Date Sheldon Xie DO [address] [place] [address] [facility] - [facility]12/26/24 Goals (unrecognized section and content) Goals may [...] BE BASED ON THE PRIMARY CLINICAL RECORDS. [employer] provides no warranty or guarantee of the accuracy or completeness of information in this document.
--- NOTE | 2025-06-20 19:42 | ECG_ITS ---
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 Measurements Intervals [place] Rate: 120 P: -17622 CT: -10378 QRS: 114 QRSD: 214 T: 72 QT: 488 QTc: 559 Interpretive Statements SINUS TACHYCARDIA 2450 Right bundle branch block 4564 Twave abnormality, possible lateral ischemia 7100 Abnormal right axis deviation 9150 abnormal ECG Compared to ECG 01/27/2025 14:22:06 Right bundle-branch block now present Possible ischemia now present Right-axis deviation now present Electronically Signed On 06-21-2025 7:02:11 EDT by ANUSHKA DE LOS SANTOS M.D.
--- NOTE | 2025-06-20 19:50 | XR_ITS ---
The [place] [id number] Patient Name: ALEKSANDR SANCHEZ MRN: [id number] date: 1940 Sex: F Assigned Patient Location: ER Current Patient Location: ER Accession/Order Number: [id number] Exam Date: 06/20/2025 19:55 Report Date: 06/20/2025 20:13 At the request of: CAROLYN ALEGRIA Procedure: XR chest 1V PA CHEST: CLINICAL HISTORY: palpitations COMPARISON: 02/13/2025 Enlarged cardiomediastinal silhouette. Emphysematous changes. Bibasilar disease greatest the right. No large effusion or pneumothorax. Degenerative changes. XR/XR chest 1V IMPRESSION: EMPHYSEMATOUS CHANGES WITH BIBASILAR AIRSPACE DISEASE GREATEST ON THE RIGHT Follow-up to resolution recommended. Impression dictated by: Aakash Acuna M.D. 06/20/2025 8:13 PM Dictation Location: [place] [address] Electronically authenticated by: [id number] Y Date: 06/20/2025 20:13
--- NOTE | 2025-06-20 19:52 | ED.GENADUL1 ---
Documented by User: RAJI DA SILVA 06/21/25 14:59 HPI HPI - General Adult General Chief complaint: Chest Pain Stated complaint: LOW BP/ HIGH HEART RATE/ FEELS LIKE PASSING OUT Time Seen by Provider: 06/20/25 19:30 Source: patient Mode of arrival: Wheelchair History of Present Illness HPI narrative: Patient presents to the emergency department with complaints of palpitations, lightheadedness and episode of feeling as if she was going to pass out. Patient denies any actual chest pain but does state that the palpitations were hurting. Patient went to the eye doctor for an eye injection and states that they were there in the waiting room for 3 hours, then after receiving the injections went to eat and ate lunch. They had then gone to the store and when they walked into the store she states that she became lightheaded and felt as if she is going to pass out though she did not actually pass out. Patient states that the symptoms have improved and she does feel some mild palpitations currently but denies any pain associated with these. Patient denies any cough or chest congestion. Patient denies any headaches associated with the symptoms. Related Data Home Medications ?Medication ?Instructions ?Recorded ?Confirmed albuterol sulfate 2.5 mg/3 mL 2.5 mg inhalation Q8H PRN 01/22/25 06/21/25 (0.083 %) solution for nebulization shortness of breath or wheezing aspirin 81 mg chewable tablet 81 mg PO DAILY 01/22/25 06/20/25 (Aspirin Childrens) brimonidine 0.2 %-timolol 0.5 % 1 drp ophthalmic (eye) Q12H 01/22/25 06/20/25 eye drops clonazepam 0.5 mg tablet 0.5 mg PO .QHS 01/22/25 06/20/25 fluticasone fur. 100 mcg-umeclid 1 inh inhalation DAILY 01/22/25 06/21/25 62.5 mcg-vilant 25 mcg inhalat.powder (Trelegy Ellipta) fluticasone propionate 50 2 spray intranasal Q12H 01/22/25 06/21/25 mcg/actuation nasal spray,suspension latanoprost 0.005 % eye drops 1 drp ophthalmic (eye) .QHS 01/22/25 06/20/25 lisinopril 2.5 mg tablet 2.5 mg PO DAILY 01/22/25 06/20/25 pravastatin 40 mg tablet 40 mg PO .QHS 01/22/25 06/20/25 torsemide 10 mg tablet 10 mg PO DAILY 01/22/25 06/21/25 metoprolol tartrate 50 mg tablet 50 mg PO BID 06/20/25 06/20/25 calcium 600 mg (as 1 tab PO BID 06/21/25 06/21/25 carbonate)-vitamin D3 5 mcg (200 unit) tablet esomeprazole magnesium PO DAILY 06/21/25 multivitamin with minerals-folic 1 tab PO DAILY 06/21/25 06/21/25 acid 80 mcg chewable tablet (Centrum Adult 50 Plus) Previous Rx's ?Medication ?Instructions ?Recorded food supplemt, lactose-reduced 1 ea PO BID #5,688 mL 01/30/25 0.04 gram-1.05 kcal/mL oral liquid (Ensure Original) Allergies Allergy/AdvReac Type Severity Reaction Status Date / Time codeine Allergy Severe Nausea Verified 01/22/25 11:48 onabotulinumtoxinA (From Allergy Severe Anaphylaxis Verified 01/22/25 11:48 Botox) Opioid HPI Opioid Management Most Recent Opioid Data: Last Pain Scale 6 01/30/25, 11:52 Last ORT Total Score 0 01/22/25, 14:21 Last ORT Risk Category Low Risk 01/22/25, 14:21 Review of Systems ROS Status of ROS 10 or more systems reviewed and unremarkable except as noted in history and below Constitutional Denies: fever or change in weight Eyes Denies: change in vision Cardiovascular Reports: palpitations and lightheadedness; Denies: edema, swelling of feet/ankles, shortness of breath with exertion or shortness of breath when lying down Respiratory Denies: shortness of breath or cough Gastrointestinal Reports: constipation; Denies: vomiting or diarrhea Genitourinary Denies: painful urination Neurological Denies: headache, numbness in extremities or weakness in extremities [facility] Medical History (Updated 06/21/25 @ 02:49 by Manoj Raya MD) PAC (premature atrial contraction) ?I49.1 - Atrial premature depolarization (ICD-10) Electrocardiogram abnormal ?R94.31 - Abnormal electrocardiogram [ECG] [EKG] (ICD-10) Acute diastolic heart failure ?I50.31 - Acute diastolic (congestive) heart failure (ICD-10) Elevated brain natriuretic peptide (BNP) level ?R79.89 - Other specified abnormal findings of blood chemistry (ICD-10) Elevated troponin ?R79.89 - Other specified abnormal findings of blood chemistry (ICD-10) CKD stage 3a, GFR 45-59 ml/min ?N18.31 - Chronic kidney disease, stage 3a (ICD-10) Paroxysmal SVT (supraventricular tachycardia) ?I47.10 - Supraventricular tachycardia, unspecified (ICD-10) Severe sepsis ?A41.9 - Sepsis, unspecified organism (ICD-10) ?R65.20 - Severe sepsis without septic shock (ICD-10) Acute hypoxic respiratory failure ?J96.01 - Acute respiratory failure with hypoxia (ICD-10) COPD with acute exacerbation ?J44.1 - Chronic obstructive pulmonary disease with (acute) exacerbation (ICD-10) Hypertension ?I10 - Essential (primary) hypertension (ICD-10) Right lower lobe pneumonia ?J18.9 - Pneumonia, unspecified organism (ICD-10) Hypercholesteremia ?E78.00 - Pure hypercholesterolemia, unspecified (ICD-10) Macular degeneration ?H35.30 - Unspecified macular degeneration (ICD-10) COPD (chronic obstructive pulmonary disease) ?J44.9 - Chronic obstructive pulmonary disease, unspecified (ICD-10) Surgical History (Updated 01/22/25 @ 13:37 by Marleni Cooper RN) H/O: hysterectomy ?Z90.710 - Acquired absence of both cervix and uterus (ICD-10) History of appendectomy ?Z90.49 - Acquired absence of other specified parts of digestive tract (ICD-10) Family History (Updated 01/22/25 @ 15:03 by Karen Santiago) Mother Family history of CHF (congestive heart failure) Family history of stroke Family history of hypertension Family history of diabetes mellitus Sister No problems noted. Son Family history of CHF (congestive heart failure) Aunt Family history of myocardial infarction Grandmother Family history of stroke Grandfather Family history of COPD (chronic obstructive pulmonary disease) Social History (Updated 01/22/25 @ 15:04 by Karen Santiago) Within the past year, how often did you have a drink containing alcohol: never Within the past year, how often did you have six or more drinks on one occasion: less than monthly Score interpretation: A score less than 3 is consistent with normal alcohol consumption. Smoking status: Former smoker Second hand tobacco smoke exposure: No Non-prescribed substance use: denies use Previous occupational history: Retired from Known occupational exposures/hazards: No Highest level of school completed/degree received: high school graduate Do you want help with school or training: No Are you now , , , , never or living with a partner: In a typical week, how many times do you talk on the telephone with family, friends, or neighbors: 3 or more times per week How often do you get together with friends or relatives: 3 or more times per week How often do you attend anglican or voodoo services: 1-3 times per year Do you belong to any clubs or organizations such as anglican groups unions, [employer] or athletic groups, or school groups: no Total score: 1 Score interpretation: A score of less than or equal to 1 indicates the most socially isolated. Little interest or pleasure in doing things: not at all Feeling down, depressed, or hopeless: not at all Feel stressed/tense/nervous/anxious/difficulty sleeping: not at all Due to disability, difficulty making decisions: No Do you think of yourself as: straight/heterosexual Gender Identity: female Exam Constitutional Vital Signs, click to edit/add: Last Vital Signs Temp 98.2 F 06/20/25 19:34 Pulse 91 H 06/21/25 08:20 Resp 18 06/21/25 08:20 BP 147/72 H 06/21/25 08:00 Pulse Ox 96 06/21/25 08:20 O2 Del Method Nasal Cannula 06/20/25 19:49 O2 Flow Rate 1 06/20/25 19:49 Documenting provider has reviewed patient's vital signs: yes Common normals: no apparent distress, oriented x3, no limitations, healthy appearing, alert and well nourished [facility] Common normals: normocephalic Respiratory Common normals: normal respiratory effort, no retractions, no use of accessory muscles and clear to auscultation bilaterally Cardio Rate: tachycardic GI Common normals: Normal to inspection, nondistended, normoactive bowel sounds present and soft to palpation Extremity Common normals: normal to inspection and full ROM Course Vital Signs Vital signs: Vital Signs Temperature 98.2 F 06/20/25 19:34 Pulse Rate 120 H 06/20/25 19:34 Respiratory Rate 18 06/20/25 19:34 Blood Pressure 150/79 H 06/20/25 19:34 Pulse Oximetry 91 L 06/20/25 19:34 Temperature 98.2 F 06/20/25 19:34 Pulse Rate 91 H 06/21/25 08:20 Respiratory Rate 18 06/21/25 08:20 Blood Pressure 147/72 H 06/21/25 08:00 Pulse Oximetry 96 06/21/25 08:20 Oxygen Delivery Method Nasal Cannula 06/20/25 19:49 Oxygen Delivery Flow Rate 1 06/20/25 19:49 Medical Decision Making MDM Narrative Medical decision making narrative: Patient presents to the emergency department with complaints of elevated heart rate, palpitations and lightheadedness. Patient had no chest pain though she did complain of some discomfort with the palpitations. Patient has chronic shortness of breath denies any acute changes. D-dimer mildly elevated, troponin also elevated however patient has a chronically elevated troponin. Mild BRAD and exam with a creatinine of 1.37 and a BUN of 66 consistent with clinical picture of dehydration. Patient rehydrated in the emergency department with improvement in heart rate Lab Data Lab results reviewed: Yes I reviewed the patient's lab results Labs: Lab Results 06/20/25 06/20/25 06/20/25 Range/Units 20:10 21:15 21:20 WBC 12.9 H (4.0-11.0) 10^3/uL RBC 4.11 L (4.20-5.40) 10^6/uL Hgb 12.7 (12.0-16.0) g/dL Hct 39.1 (36.0-48.0) % MCV 95.1 (81.0-99.0) fL MCH 30.9 (26.7-34.0) pg MCHC 32.5 (29.9-35.2) g/dL RDW 14.9 (11.0-15.0) % Plt Count 282 (150-450) 10^3/uL MPV 10.3 (9.5-13.5) fL Neut % (Auto) 68.3 (43.0-75.0) % Lymph % (Auto) 20.8 (20.5-60.0) % [place] % (Auto) 7.4 (1.7-12.0) % Eos % (Auto) 1.4 (0.9-7.0) % Baso % (Auto) 0.6 (0.2-2.0) % Neut # (Auto) 8.8 H (1.4-6.5) 10^3/uL Lymph # (Auto) 2.7 (1.2-3.8) 10^3/uL [place] # (Auto) 1.0 H (0.3-0.8) 10^3/uL Eos # (Auto) 0.2 (0.0-0.7) 10^3/uL Baso # (Auto) 0.1 (0.0-0.1) 10^3/uL Abs Immat Gran (auto) 0.20 H (0.00-0.03) 10^3/uL Imm/Tot Granulo (auto) 1.5 H (0.0-0.5) % PT 10.6 (9.0-11.6) sec INR 1.00 APTT 23.9 (22.3-36.2) sec D-Dimer 0.60 H (<=0.59) mg/L FEU Sodium 141 (136-145) mmol/L Potassium 4.0 (3.5-5.1) mmol/L Chloride 100 (98-107) mmol/L Carbon Dioxide 31.0 (21.0-32.0) mmol/L Anion Gap 14.0 BUN 66.0 H (7.0-18.0) mg/dL Creatinine 1.37 H (0.55-1.02) mg/dL Est GFR ( Amer) 45 L (>=60 mL/min/1.73m^2) Est GFR (Non-Af Amer) 37 L (>=60 mL/min/1.73m^2) BUN/Creatinine Ratio 48.2 Glucose 107 H (74-106) mg/dL Calcium 10.1 (8.5-10.1) mg/dL Total Bilirubin 0.3 (0.2-1.0) mg/dL AST 20 (15-37) U/L ALT 23 (14-59) U/L Alkaline Phosphatase 73 (46-116) U/L Troponin I High Sens 149.0 H* 203.4 H* (4.0-51.3) pg/mL NT-Pro-B Natriuret Pep 1212.0 (<=1800.0) pg/mL Total Protein 7.4 (6.4-8.2) g/dL Albumin 3.4 (3.4-5.0) g/dL Globulin 4.0 g/dL Albumin/Globulin Ratio 0.9 TSH 2.523 (0.358-3.740) uIU/mL Urine Color Lt. yellow (YELLOW) Urine Clarity Clear (CLEAR) Urine pH 6.0 (5.0-9.0) Ur Specific [place] 1.010 (1.005-1.025) Urine Protein Negative (NEG/TRACE) mg/dL Urine Glucose (UA) Negative (NEGATIVE) mg/dL Urine Ketones Negative (NEGATIVE) mg/dL Urine Occult Blood Negative (NEGATIVE) Urine Nitrite Negative (NEGATIVE) Urine Bilirubin Negative (NEGATIVE) Urine Urobilinogen 0.2 (0.2-1.0) EU/dL Ur Leukocyte Esterase Negative (NEGATIVE) Urine RBC 0-2 (0-2) #/HPF Urine WBC 0-2 A (NONE SEEN) #/HPF Ur Squamous Epith Cells Rare (NONE/RARE) #/LPF Urine Crystals None seen (None Seen) #/HPF Urine Bacteria Trace A (NONE SEEN) #/HPF Urine Casts Seen A (NONE SEEN) #/LPF Hyaline Casts Moderate Urine Mucus None seen (NONE SEEN) Ur Culture Indicated? No 06/20/25 Range/Units 23:24 WBC (4.0-11.0) 10^3/uL RBC (4.20-5.40) 10^6/uL Hgb (12.0-16.0) g/dL Hct (36.0-48.0) % MCV (81.0-99.0) fL MCH (26.7-34.0) pg MCHC (29.9-35.2) g/dL RDW (11.0-15.0) % Plt Count (150-450) 10^3/uL MPV (9.5-13.5) fL Neut % (Auto) (43.0-75.0) % Lymph % (Auto) (20.5-60.0) % [place] % (Auto) (1.7-12.0) % Eos % (Auto) (0.9-7.0) % Baso % (Auto) (0.2-2.0) % Neut # (Auto) (1.4-6.5) 10^3/uL Lymph # (Auto) (1.2-3.8) 10^3/uL [place] # (Auto) (0.3-0.8) 10^3/uL Eos # (Auto) (0.0-0.7) 10^3/uL Baso # (Auto) (0.0-0.1) 10^3/uL Abs Immat Gran (auto) (0.00-0.03) 10^3/uL Imm/Tot Granulo (auto) (0.0-0.5) % PT (9.0-11.6) sec INR APTT (22.3-36.2) sec D-Dimer (<=0.59) mg/L FEU Sodium (136-145) mmol/L Potassium (3.5-5.1) mmol/L Chloride (98-107) mmol/L Carbon Dioxide (21.0-32.0) mmol/L Anion Gap BUN (7.0-18.0) mg/dL Creatinine (0.55-1.02) mg/dL Est GFR ( Amer) (>=60 mL/min/1.73m^2) Est GFR (Non-Af Amer) (>=60 mL/min/1.73m^2) BUN/Creatinine Ratio Glucose (74-106) mg/dL Calcium (8.5-10.1) mg/dL Total Bilirubin (0.2-1.0) mg/dL AST (15-37) U/L ALT (14-59) U/L Alkaline Phosphatase (46-116) U/L Troponin I High Sens 603.2 H* (4.0-51.3) pg/mL NT-Pro-B Natriuret Pep (<=1800.0) pg/mL Total Protein (6.4-8.2) g/dL Albumin (3.4-5.0) g/dL Globulin g/dL Albumin/Globulin Ratio TSH (0.358-3.740) uIU/mL Urine Color (YELLOW) Urine Clarity (CLEAR) Urine pH (5.0-9.0) Ur Specific [place] (1.005-1.025) Urine Protein (NEG/TRACE) mg/dL Urine Glucose (UA) (NEGATIVE) mg/dL Urine Ketones (NEGATIVE) mg/dL Urine Occult Blood (NEGATIVE) Urine Nitrite (NEGATIVE) Urine Bilirubin (NEGATIVE) Urine Urobilinogen (0.2-1.0) EU/dL Ur Leukocyte Esterase (NEGATIVE) Urine RBC (0-2) #/HPF Urine WBC (NONE SEEN) #/HPF Ur Squamous Epith Cells (NONE/RARE) #/LPF Urine Crystals (None Seen) #/HPF Urine Bacteria (NONE SEEN) #/HPF Urine Casts (NONE SEEN) #/LPF Hyaline Casts Urine Mucus (NONE SEEN) Ur Culture Indicated? Imaging Data Chest x-ray: Radiologist's impression: ITS Impressions Chest X-Ray 06/20/25 19:50 IMPRESSION: EMPHYSEMATOUS CHANGES WITH BIBASILAR AIRSPACE DISEASE GREATEST ON THE RIGHT Follow-up to resolution recommended. Impression dictated by: Aakash Acuna M.D. 06/20/2025 8:13 PM Dictation Location: [employer] Electronically authenticated by: [id number] Y Date: 06/20/2025 20:13 Chest CTA 06/20/25 20:50 IMPRESSION: NO CT EVIDENCE OF PULMONARY EMBOLISM EMPHYSEMATOUS CHANGES WITH BIBASILAR PARENCHYMAL OPACITIES FAVOR ATELECTASIS, EARLY PNEUMONIA CANNOT BE CONSIDERED IN APPROPRIATE CLINICAL SETTING. SUBPLEURAL NODULE RIGHT LOWER 6 X 4 MM IN SIZE. RECOMMEND FOLLOW-UP BASED ON [employer] RECOMMENDATIONS. Impression dictated by: Aakash Acuna M.D. 06/20/2025 10:22 PM Dictation Location: [facility] [employer] Electronically authenticated by: [id number] Y Date: 06/20/2025 22:22 ECG Data Attestation: I personally reviewed and interpreted this ECG as follows: Interpretation: EKG is a sinus tachycardia with a rate of 120 bpm, right bundle branch block, QTc of 559 ms Discharge Plan Discharge Chief Complaint: Chest Pain Clinical Impression: Elevated troponin Patient Disposition: [facility] Discharge Date/Time: 06/21/25 08:51 Documented by User: Manoj Raya MD 06/21/25 20:20 HPI HPI - General Adult General Chief complaint: Chest Pain Stated complaint: LOW BP/ HIGH HEART RATE/ FEELS LIKE PASSING OUT Time Seen by Provider: 06/20/25 19:30 Related Data Home Medications ?Medication ?Instructions ?Recorded ?Confirmed albuterol sulfate 2.5 mg/3 mL 2.5 mg inhalation Q8H PRN 01/22/25 06/21/25 (0.083 %) solution for nebulization shortness of breath or wheezing aspirin 81 mg chewable tablet 81 mg PO DAILY 01/22/25 06/20/25 (Aspirin Childrens) brimonidine 0.2 %-timolol 0.5 % 1 drp ophthalmic (eye) Q12H 01/22/25 06/20/25 eye drops clonazepam 0.5 mg tablet 0.5 mg PO .QHS 01/22/25 06/20/25 fluticasone fur. 100 mcg-umeclid 1 inh inhalation DAILY 01/22/25 06/21/25 62.5 mcg-vilant 25 mcg inhalat.powder (Trelegy Ellipta) fluticasone propionate 50 2 spray intranasal Q12H 01/22/25 06/21/25 mcg/actuation nasal spray,suspension latanoprost 0.005 % eye drops 1 drp ophthalmic (eye) .QHS 01/22/25 06/20/25 lisinopril 2.5 mg tablet 2.5 mg PO DAILY 01/22/25 06/20/25 pravastatin 40 mg tablet 40 mg PO .QHS 01/22/25 06/20/25 torsemide 10 mg tablet 10 mg PO DAILY 01/22/25 06/21/25 metoprolol tartrate 50 mg tablet 50 mg PO BID 06/20/25 06/20/25 calcium 600 mg (as 1 tab PO BID 06/21/25 06/21/25 carbonate)-vitamin D3 5 mcg (200 unit) tablet esomeprazole magnesium PO DAILY 06/21/25 multivitamin with minerals-folic 1 tab PO DAILY 06/21/25 06/21/25 acid 80 mcg chewable tablet (Centrum Adult 50 Plus) Previous Rx's ?Medication ?Instructions ?Recorded food supplemt, lactose-reduced 1 ea PO BID #5,688 mL 01/30/25 0.04 gram-1.05 kcal/mL oral liquid (Ensure Original) Allergies Allergy/AdvReac Type Severity Reaction Status Date / Time codeine Allergy Severe Nausea Verified 01/22/25 11:48 onabotulinumtoxinA (From Allergy Severe Anaphylaxis Verified 01/22/25 11:48 Botox) Opioid HPI Opioid Management Most Recent Opioid Data: Last Pain Scale 6 01/30/25, 11:52 Last ORT Total Score 0 01/22/25, 14:21 Last ORT Risk Category Low Risk 01/22/25, 14:21 [facility] Medical History (Updated 06/21/25 @ 02:49 by Manoj Raya MD) PAC (premature atrial contraction) ?I49.1 - Atrial premature depolarization (ICD-10) Electrocardiogram abnormal ?R94.31 - Abnormal electrocardiogram [ECG] [EKG] (ICD-10) Acute diastolic heart failure ?I50.31 - Acute diastolic (congestive) heart failure (ICD-10) Elevated brain natriuretic peptide (BNP) level ?R79.89 - Other specified abnormal findings of blood chemistry (ICD-10) Elevated troponin ?R79.89 - Other specified abnormal findings of blood chemistry (ICD-10) CKD stage 3a, GFR 45-59 ml/min ?N18.31 - Chronic kidney disease, stage 3a (ICD-10) Paroxysmal SVT (supraventricular tachycardia) ?I47.10 - Supraventricular tachycardia, unspecified (ICD-10) Severe sepsis ?A41.9 - Sepsis, unspecified organism (ICD-10) ?R65.20 - Severe sepsis without septic shock (ICD-10) Acute hypoxic respiratory failure ?J96.01 - Acute respiratory failure with hypoxia (ICD-10) COPD with acute exacerbation ?J44.1 - Chronic obstructive pulmonary disease with (acute) exacerbation (ICD-10) Hypertension ?I10 - Essential (primary) hypertension (ICD-10) Right lower lobe pneumonia ?J18.9 - Pneumonia, unspecified organism (ICD-10) Hypercholesteremia ?E78.00 - Pure hypercholesterolemia, unspecified (ICD-10) Macular degeneration ?H35.30 - Unspecified macular degeneration (ICD-10) COPD (chronic obstructive pulmonary disease) ?J44.9 - Chronic obstructive pulmonary disease, unspecified (ICD-10) Surgical History (Updated 01/22/25 @ 13:37 by Marleni Cooper RN) H/O: hysterectomy ?Z90.710 - Acquired absence of both cervix and uterus (ICD-10) History of appendectomy ?Z90.49 - Acquired absence of other specified parts of digestive tract (ICD-10) Family History (Updated 01/22/25 @ 15:03 by Karen Santiago) Mother Family history of CHF (congestive heart failure) Family history of stroke Family history of hypertension Family history of diabetes mellitus Sister No problems noted. Son Family history of CHF (congestive heart failure) Aunt Family history of myocardial infarction Grandmother Family history of stroke Grandfather Family history of COPD (chronic obstructive pulmonary disease) Social History (Updated 01/22/25 @ 15:04 by Karen Santiago) Within the past year, how often did you have a drink containing alcohol: never Within the past year, how often did you have six or more drinks on one occasion: less than monthly Score interpretation: A score less than 3 is consistent with normal alcohol consumption. Smoking status: Former smoker Second hand tobacco smoke exposure: No Non-prescribed substance use: denies use Previous occupational history: Retired from Known occupational exposures/hazards: No Highest level of school completed/degree received: high school graduate Do you want help with school or training: No Are you now , , , , never or living with a partner: In a typical week, how many times do you talk on the telephone with family, friends, or neighbors: 3 or more times per week How often do you get together with friends or relatives: 3 or more times per week How often do you attend anglican or voodoo services: 1-3 times per year Do you belong to any clubs or organizations such as anglican groups unions, fraternal or athletic groups, or school groups: no Total score: 1 Score interpretation: A score of less than or equal to 1 indicates the most socially isolated. Little interest or pleasure in doing things: not at all Feeling down, depressed, or hopeless: not at all Feel stressed/tense/nervous/anxious/difficulty sleeping: not at all Due to disability, difficulty making decisions: No Do you think of yourself as: straight/heterosexual Gender Identity: female Exam Constitutional Vital Signs, click to edit/add: Last Vital Signs Temp 98.2 F 06/20/25 19:34 Pulse 91 H 06/21/25 08:20 Resp 18 06/21/25 08:20 BP 147/72 H 06/21/25 08:00 Pulse Ox 96 06/21/25 08:20 O2 Del Method Nasal Cannula 06/20/25 19:49 O2 Flow Rate 1 06/20/25 19:49 Course Vital Signs Vital signs: Vital Signs Temperature 98.2 F 06/20/25 19:34 Pulse Rate 120 H 06/20/25 19:34 Respiratory Rate 18 06/20/25 19:34 Blood Pressure 150/79 H 06/20/25 19:34 Pulse Oximetry 91 L 06/20/25 19:34 Temperature 98.2 F 06/20/25 19:34 Pulse Rate 91 H 06/21/25 08:20 Respiratory Rate 18 06/21/25 08:20 Blood Pressure 147/72 H 06/21/25 08:00 Pulse Oximetry 96 06/21/25 08:20 Oxygen Delivery Method Nasal Cannula 06/20/25 19:49 Oxygen Delivery Flow Rate 1 06/20/25 19:49 Medical Decision Making MDM Narrative Medical decision making narrative: Patient presents to the emergency department with complaints of elevated heart rate, palpitations and lightheadedness. Patient had no chest pain though she did complain of some discomfort with the palpitations. Patient has chronic shortness of breath denies any acute changes. D-dimer mildly elevated, troponin also elevated however patient has a chronically elevated troponin. Mild BRAD and exam with a creatinine of 1.37 and a BUN of 66 consistent with clinical picture of dehydration. Patient rehydrated in the emergency department with improvement in heart rate Patient is followed by [facility] cardiology. Discussed with Dr Mayen who felt the patient could be managed here. Dr Valera did not agree and felt the patient should be transferred. Discussed with hospitalist at [facility] and patient accepted to the step down unit Lab Data Labs: Lab Results 06/20/25 06/20/25 06/20/25 Range/Units 20:10 21:15 21:20 WBC 12.9 H (4.0-11.0) 10^3/uL RBC 4.11 L (4.20-5.40) 10^6/uL Hgb 12.7 (12.0-16.0) g/dL Hct 39.1 (36.0-48.0) % MCV 95.1 (81.0-99.0) fL MCH 30.9 (26.7-34.0) pg MCHC 32.5 (29.9-35.2) g/dL RDW 14.9 (11.0-15.0) % Plt Count 282 (150-450) 10^3/uL MPV 10.3 (9.5-13.5) fL Neut % (Auto) 68.3 (43.0-75.0) % Lymph % (Auto) 20.8 (20.5-60.0) % [place] % (Auto) 7.4 (1.7-12.0) % Eos % (Auto) 1.4 (0.9-7.0) % Baso % (Auto) 0.6 (0.2-2.0) % Neut # (Auto) 8.8 H (1.4-6.5) 10^3/uL Lymph # (Auto) 2.7 (1.2-3.8) 10^3/uL [place] # (Auto) 1.0 H (0.3-0.8) 10^3/uL Eos # (Auto) 0.2 (0.0-0.7) 10^3/uL Baso # (Auto) 0.1 (0.0-0.1) 10^3/uL Abs Immat Gran (auto) 0.20 H (0.00-0.03) 10^3/uL Imm/Tot Granulo (auto) 1.5 H (0.0-0.5) % PT 10.6 (9.0-11.6) sec INR 1.00 APTT 23.9 (22.3-36.2) sec D-Dimer 0.60 H (<=0.59) mg/L FEU Sodium 141 (136-145) mmol/L Potassium 4.0 (3.5-5.1) mmol/L Chloride 100 (98-107) mmol/L Carbon Dioxide 31.0 (21.0-32.0) mmol/L Anion Gap 14.0 BUN 66.0 H (7.0-18.0) mg/dL Creatinine 1.37 H (0.55-1.02) mg/dL Est GFR ( Amer) 45 L (>=60 mL/min/1.73m^2) Est GFR (Non-Af Amer) 37 L (>=60 mL/min/1.73m^2) BUN/Creatinine Ratio 48.2 Glucose 107 H (74-106) mg/dL Calcium 10.1 (8.5-10.1) mg/dL Total Bilirubin 0.3 (0.2-1.0) mg/dL AST 20 (15-37) U/L ALT 23 (14-59) U/L Alkaline Phosphatase 73 (46-116) U/L Troponin I High Sens 149.0 H* 203.4 H* (4.0-51.3) pg/mL NT-Pro-B Natriuret Pep 1212.0 (<=1800.0) pg/mL Total Protein 7.4 (6.4-8.2) g/dL Albumin 3.4 (3.4-5.0) g/dL Globulin 4.0 g/dL Albumin/Globulin Ratio 0.9 TSH 2.523 (0.358-3.740) uIU/mL Urine Color Lt. yellow (YELLOW) Urine Clarity Clear (CLEAR) Urine pH 6.0 (5.0-9.0) Ur Specific [place] 1.010 (1.005-1.025) Urine Protein Negative (NEG/TRACE) mg/dL Urine Glucose (UA) Negative (NEGATIVE) mg/dL Urine Ketones Negative (NEGATIVE) mg/dL Urine Occult Blood Negative (NEGATIVE) Urine Nitrite Negative (NEGATIVE) Urine Bilirubin Negative (NEGATIVE) Urine Urobilinogen 0.2 (0.2-1.0) EU/dL Ur Leukocyte Esterase Negative (NEGATIVE) Urine RBC 0-2 (0-2) #/HPF Urine WBC 0-2 A (NONE SEEN) #/HPF Ur Squamous Epith Cells Rare (NONE/RARE) #/LPF Urine Crystals None seen (None Seen) #/HPF Urine Bacteria Trace A (NONE SEEN) #/HPF Urine Casts Seen A (NONE SEEN) #/LPF Hyaline Casts Moderate Urine Mucus None seen (NONE SEEN) Ur Culture Indicated? No 10/24/25 Range/Units 23:24 WBC (4.0-11.0) 10^3/uL RBC (4.20-5.40) 10^6/uL Hgb (12.0-16.0) g/dL Hct (36.0-48.0) % MCV (81.0-99.0) fL MCH (26.7-34.0) pg MCHC (29.9-35.2) g/dL RDW (11.0-15.0) % Plt Count (150-450) 10^3/uL MPV (9.5-13.5) fL Neut % (Auto) (43.0-75.0) % Lymph % (Auto) (20.5-60.0) % [place] % (Auto) (1.7-12.0) % Eos % (Auto) (0.9-7.0) % Baso % (Auto) (0.2-2.0) % Neut # (Auto) (1.4-6.5) 10^3/uL Lymph # (Auto) (1.2-3.8) 10^3/uL [place] # (Auto) (0.3-0.8) 10^3/uL Eos # (Auto) (0.0-0.7) 10^3/uL Baso # (Auto) (0.0-0.1) 10^3/uL Abs Immat Gran (auto) (0.00-0.03) 10^3/uL Imm/Tot Granulo (auto) (0.0-0.5) % PT (9.0-11.6) sec INR APTT (22.3-36.2) sec D-Dimer (<=0.59) mg/L FEU Sodium (136-145) mmol/L Potassium (3.5-5.1) mmol/L Chloride (98-107) mmol/L Carbon Dioxide (21.0-32.0) mmol/L Anion Gap BUN (7.0-18.0) mg/dL Creatinine (0.55-1.02) mg/dL Est GFR ( Amer) (>=60 mL/min/1.73m^2) Est GFR (Non-Af Amer) (>=60 mL/min/1.73m^2) BUN/Creatinine Ratio Glucose (74-106) mg/dL Calcium (8.5-10.1) mg/dL Total Bilirubin (0.2-1.0) mg/dL AST (15-37) U/L ALT (14-59) U/L Alkaline Phosphatase (46-116) U/L Troponin I High Sens 603.2 H* (4.0-51.3) pg/mL NT-Pro-B Natriuret Pep (<=1800.0) pg/mL Total Protein (6.4-8.2) g/dL Albumin (3.4-5.0) g/dL Globulin g/dL Albumin/Globulin Ratio TSH (0.358-3.740) uIU/mL Urine Color (YELLOW) Urine Clarity (CLEAR) Urine pH (5.0-9.0) Ur Specific [place] (1.005-1.025) Urine Protein (NEG/TRACE) mg/dL Urine Glucose (UA) (NEGATIVE) mg/dL Urine Ketones (NEGATIVE) mg/dL Urine Occult Blood (NEGATIVE) Urine Nitrite (NEGATIVE) Urine Bilirubin (NEGATIVE) Urine Urobilinogen (0.2-1.0) EU/dL Ur Leukocyte Esterase (NEGATIVE) Urine RBC (0-2) #/HPF Urine WBC (NONE SEEN) #/HPF Ur Squamous Epith Cells (NONE/RARE) #/LPF Urine Crystals (None Seen) #/HPF Urine Bacteria (NONE SEEN) #/HPF Urine Casts (NONE SEEN) #/LPF Hyaline Casts Urine Mucus (NONE SEEN) Ur Culture Indicated? Imaging Data Chest x-ray: Radiologist's impression: ITS Impressions Chest X-Ray 06/20/25 19:50 IMPRESSION: EMPHYSEMATOUS CHANGES WITH BIBASILAR AIRSPACE DISEASE GREATEST ON THE RIGHT Follow-up to resolution recommended. Impression dictated by: Aakash Acuna M.D. 06/20/2025 8:13 PM Dictation Location: [place] [address] Electronically authenticated by: [id number] Y Date: 06/20/2025 20:13 Chest CTA 06/20/25 20:50 IMPRESSION: NO CT EVIDENCE OF PULMONARY EMBOLISM EMPHYSEMATOUS CHANGES WITH BIBASILAR PARENCHYMAL OPACITIES FAVOR ATELECTASIS, EARLY PNEUMONIA CANNOT BE CONSIDERED IN APPROPRIATE CLINICAL SETTING. SUBPLEURAL NODULE RIGHT LOWER 6 X 4 MM IN SIZE. RECOMMEND FOLLOW-UP BASED ON [employer] RECOMMENDATIONS. Impression dictated by: Aakash Acuna M.D. 06/20/2025 10:22 PM Dictation Location: [facility] Electronically authenticated by: [id number] Y Date: 06/20/2025 22:22 Discharge Plan Discharge Chief Complaint: Chest Pain Clinical Impression: Elevated troponin Patient Disposition: [facility] Discharge Date/Time: 06/21/25 08:51
[2025-06-20 20:17] LABS: Hematocrit 39.1 % (36.0-48.0); Hemoglobin 12.7 g/dL (12.0-16.0); Immature Granulocytes Abs Auto 0.20 10^3/uL (0.00-0.03); Immature Granulocytes Pct Auto 1.5 % (0.0-0.5); Lymphocytes Absolute Auto 2.7 10^3/uL (1.2-3.8); Mean Corpuscular HGB Conc 32.5 g/dL (29.9-35.2); Mean Corpuscular Hemoglobin 30.9 pg (26.7-34.0); Mean Corpuscular Volume 95.1 fL (81.0-99.0); Platelet Count 282 10^3/uL (150-450); Red Blood Count 4.11 10^6/uL (4.20-5.40); White Blood Count 12.9 10^3/uL (4.0-11.0)
[2025-06-20 20:36] LABS: INR 1.00; Partial Thromboplastin Time 23.9 sec (22.3-36.2); Prothrombin Time 10.6 sec (9.0-11.6)
[2025-06-20 20:42] LABS: Alanine Aminotransferase 23 U/L (14-59); Albumin Globulin Ratio 0.9; Albumin Level 3.4 g/dL (3.4-5.0); Alkaline Phosphatase 73 U/L (46-116); Anion Gap 14.0; Aspartate Amino Transferase 20 U/L (15-37); Blood Urea Nitrogen 66.0 mg/dL (7.0-18.0); Calcium 10.1 mg/dL (8.5-10.1); Carbon Dioxide 31.0 mmol/L (21.0-32.0); Chloride 100 mmol/L (98-107); Estimated GFR (African America 45 (>=60 mL/min/1.73m^2); Estimated GFR (Non-African Ame 37 (>=60 mL/min/1.73m^2); Globulin 4.0 g/dL; Glucose 107 mg/dL (74-106); NT Pro B Type Natriuretic Pept 1212.0 pg/mL (<=1800.0); Potassium 4.0 mmol/L (3.5-5.1); Sodium 141 mmol/L (136-145); Thyroid Stimulating Hormone 2.523 uIU/mL (0.358-3.740); Total Protein 7.4 g/dL (6.4-8.2)
[2025-06-20] MEDS: 0.9 % SODIUM CHLORIDE 500 ML IV ×2 (20:46→23:06)
--- NOTE | 2025-06-20 20:50 | CT_ITS ---
[address] [address] Patient Name: ALEKSANDR SANCHEZ MRN: [id number] date: 1940 Sex: F Assigned Patient Location: ER Current Patient Location: Accession/Order Number: [id number] Exam Date: 06/20/2025 21:30 Report Date: 06/20/2025 22:22 At the request of: CAROLYN ALEGRIA Procedure: CT angio chest CT ANGIOGRAM OF THE CHEST, PULMONARY EMBOLISM PROTOCOL: CLINICAL INFORMATION: Elevated d-dimer TECHNIQUE: Following intravenous injection of contrast CT scans of the chest were obtained using pulmonary embolism protocol. Coronal and sagittal reconstructed images, as well as volume rendered CT pulmonary angiographic images were also submitted.The CT exam was performed using one or more of the following dose reduction techniques: Automated exposure control, adjustment of the MA and/or Kv according to patient size, or use of the iterative reconstruction technique. FINDINGS: Pulmonary Vasculature: Contrast bolus is adequate for evaluation of pulmonary embolism. Pulmonary trunk appears nondilated. No filling defects are identified to suggest pulmonary embolism. Mediastinum : Moderate aortic calcific plaque. Cardiomegaly. Coronary artery disease. No pericardial effusion. Enlarged right hilar lymph node 1.4 x 1.3 cm in size, possibly reactive. Subcarinal region granulomas calcifications. Lungs: Emphysematous changes. Parenchymal opacities both lower lobes and right middle lobe noted effusion. No pneumothorax. Subpleural nodule right upper lobe posteriorly 6 x 4 mm in size. Biapical pleural thickening and scarring. Upper abdomen: No acute findings Soft tissue/bones: Soft tissues surrounding the chest wall demonstrate no acute findings. Osseous structures demonstrate degenerative change. CT/CT angio chest IMPRESSION: NO CT EVIDENCE OF PULMONARY EMBOLISM EMPHYSEMATOUS CHANGES WITH BIBASILAR PARENCHYMAL OPACITIES FAVOR ATELECTASIS, EARLY PNEUMONIA CANNOT BE CONSIDERED IN APPROPRIATE CLINICAL SETTING. SUBPLEURAL NODULE RIGHT LOWER 6 X 4 MM IN SIZE. RECOMMEND FOLLOW-UP BASED ON [employer] RECOMMENDATIONS. Impression dictated by: Aakash Acuna M.D. 06/20/2025 10:22 PM Dictation Location: [place] [address] Electronically authenticated by: [id number] Y Date: 06/20/2025 22:22
[2025-06-20 21:59] LABS: Glucose Urine UA NEGATIVE (NEGATIVE)
[2025-06-20 22:05] LABS: Cast Seen? SEEN #/LPF (NONE SEEN); Crystals Seen? None Seen #/HPF (None Seen)
[2025-06-20 22:06] LABS: Urine Culture Indicated NO
--- NOTE | 2025-06-20 22:39 | ECG_ITS ---
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 Measurements Intervals [place] Rate: 83 P: 60 IN: 122 QRS: 97 QRSD: 134 T: 44 QT: 416 QTc: 456 Interpretive Statements 1100 Sinus rhythm 1570 with occasional ventricular premature complexes 2450 Right bundle branch block 9150 abnormal ECG Compared to ECG 06/20/2025 19:42:04 Ventricular premature complex(es) now present Possible ischemia no longer present Right-axis deviation no longer present Electronically Signed On 06-21-2025 7:03:03 EDT by ANUSHKA DE LOS SANTOS M.D.
[2025-06-21] VITALS (50 sets, daily range): BP systolic 136–174; BP diastolic 60–77; PULSE 79–110; O2SAT 90–97
[2025-06-21] MEDS: HEPARIN SODIUM (PORCINE) 5,000 UNIT/ML VIAL 1700 UNIT IV (04:05)
[2025-06-21] MEDS: HEPARIN SODIUM,PORCINE/D5W 25,000 UNIT/500 ML IV.SOLN 9.798 UNIT IV (04:06)
[2025-06-21] MEDS: ACETAMINOPHEN 325 MG TABLET 650 MG PO (05:35)
== END 2025-06-21 08:51 | disposition short-term general hospital (02) ==
PROVIDERS: Physician Assistant; Emergency Provider Internal Medicine; PCP Family Medicine
DX: R79.89 Other specified abnormal findings of blood chemistry (principal); R42 Dizziness and giddiness; Z87.891 Personal history of nicotine dependence; R00.2 Palpitations; R07.9 Chest pain, unspecified
CPT/HCPCS: 36415; 71045; 71275; 80053; 81001; 83880; 84443; 84484; 85025; 85378; 85610; 85730; 93005; 96361; 96374; 99285; J1644; Q9967

== ENCOUNTER 2025-07-02 16:06 | Outpatient (OUT) | payer MEDICARE, SELFPAY ==
--- OUTSIDE RECORDS SUMMARY | 2025-06-20 23:55 | XMS_ITS | Encounter Summary ---
Author Organization [facility] Address [address] [place] [address] Care Team Providers Care Research Assistant Member Name Role Phone Geo Montejo Primary Care Provider [phone] Encounter Details DateTypeDepartmentCare Team (Latest Contact Info)Grhqubmmvih17/25/2025 12:55 AM EDT - 06/21/2025 12:56 AM EDTEmergency [facility] [address] [place] [id number] Discharge Disposition: ED Dismiss - Never Arrived (100) Social History Tobacco UseTypesPacks/DayYears UsedDateSmoking Tobacco: FormerCigarettesPassive Smoke Exposure: PastSmokeless Tobacco: NeverAlcohol UseStandard Drinks/Week CommentsYes0 (1 standard drink = 0.6 oz pure alcohol)occasionalAHC Utilities AnswerDate RecordedIn the past 12 months has the [place], gas, oil, or water [place] threatened to shut off services in your home?No06/21/2025Humiliation, Afraid, Rape, and Kick questionnaireAnswerDate RecordedWithin the last year, have you been afraid of your partner or ex-partner?No06/21/2025Emotionally AbusedNot on file06/21/2025Physically AbusedNot on file06/21/2025Sexually Abused Not on file06/21/2025Overall Financial Resource Strain (CARDIA)AnswerDate RecordedHow hard is it for you to pay for the very basics like food, housing, medical care, and heating?Not hard at all06/21/2025TransportationAnswerDate RecordedIn the past 12 months, has lack of transportation kept you from medical appointments or from getting medications?No06/21/2025Lack of Transportation (Non-Medical)Not on file06/21/2025Housing Stability Vital SignAnswerDate RecordedIn the last 12 months, was there a time when you were not able to pay the mortgage or rent on time?No06/21/2025Number of Times Moved in the Last Year Not on file06/21/2025t any time in the past 12 months, were you homeless or living in a prison (including now)?No06/21/2025Hunger Vital SignAnswerDate RecordedWithin the past 12 months, you worried that your food would run out before you got the money to buymore.Never true06/21/2025Ran Out of Food in the Last YearNot on file06/21/2025CommentsUnknownSex and Gender Information ValueDate RecordedSex Assigned at UqmapPqmlvv63/07/2025 12:14 PM EDTLegal Sex Rbzczr6701/28/2025 8:42 AM EDTGender OmjbpzbtQtccmx33/07/2025 12:14 PM EDTSexual OrientationHeterosexual or Suvvzmsj34/07/2025 12:14 PM EDTdocumented as of this encounter Medications at Time of Discharge MedicationSigDispense QuantityRefillsLast FilledStart DateEnd Date acetaminophen (Tylenol) 325 mg tablet Take 325 mg by mouth every 4 (four) hours if needed.10/16/2023 albuterol 2.5 mg /3 mL (0.083 %) nebulizer solution Take 2.5 mg by nebulization three times daily.11/15/2023 aspirin 81 mg EC tablet Take 81 mg by mouth in the morning. brimonidine-timoloL (Combigan) 0.2-0.5 % ophthalmic solution in the morning and at bedtime.03/07/2019 clonazePAM (KlonoPIN) 0.5 mg tablet Take 0.5 mg by mouth in the morning. esomeprazole (NexIUM) [address] capsule in the morning.07/23/2018 fluticasone (Flonase) 50 mcg/actuation nasal spray Administer 2 sprays into each nostril two times daily. exzfughzxme-sshdppsmq-zxsnkqvd 100-62.5-25 mcg blister with device in the morning.12/24/2024 latanoprost (Xalatan) 0.005 % ophthalmic solution Daily at vfoocvf7807/23/2018 lisinopril 5 mg tablet Indications:Chest painTake 1 tablet (5 mg) by mouth in the morning. Do not start before June 25, 2025. 30 tablet / metoprolol tartrate (Lopressor) 25 mg tablet Take 1 tablet by mouth Twice daily at 6am and 6pm.05/27/2025 metoprolol tartrate (Lopressor) 50 mg tablet Indications:Atrial tachycardiaTake 1 tablet (50 mg) by mouth two times daily. 180 tablet pravastatin (Pravachol) 40 mg tablet Take 40 mg by mouth at bedtime. spironolactone (Aldactone) 25 mg tablet Indications:Chronic diastolic heart failure (CMS/HCC)Take 0.5 tablets (12.5 mg) by mouth in the morning. 15 tablet torsemide (Demadex) 10 mg tablet Indications:Acute on chronic diastolic heart failure (CMS/HCC),Pulmonary hypertension (CMS/HCC)Take 2 tablets (20 mg) by mouth in the morning. Increase torsemide to 20mg daily x7 days then alternate days of 10mg and 20mg daily 180 tablet lisinopril 2.5 mg tablet Take 2.5 mg by mouth in the morning. potassium chloride CR (Klor-Con) 10 mEq ER tablet Take 20 mEq by mouth in the morning.06/24/2025 predniSONE (Deltasone) 10 mg tablet Take 10 mg by mouth in the morning.06/24/2025 spironolactone (Aldactone) 25 mg tablet Indications:Chronic diastolic heart failure (CMS/HCC)Take 0.5 tablets (12.5 mg) by mouth in the morning for 99 doses. 15 tablet documented as of this encounter Plan of Treatment Not on file documented as of this encounter Visit Diagnoses Not on filedocumented in this encounter Care Teams Team MemberRelationshipSpecialtyStart DateEnd Date Geo Montejo [place] [facility] [place] [address] PCP - GeneralFamily Medicine02/05/25documented as of this encounter
--- OUTSIDE RECORDS SUMMARY | 2025-06-21 08:55 | XMS_ITS | Encounter Summary ---
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 60 MINUTES Nestor Beyer MD [address] [facility] 2 [facility] [place] [address] Phone: tel: fax: [facility] [address] [place] [address] [place] [address] Phone: tel: fax: Referral IDStatusReasonStart DateExpiration DateVisits RequestedVisits [id number] Review Specialty Services Required * (Emergency) - Pending ReviewSpecialtyDiagnoses / ProceduresReferred By Contact Referred To Contact Procedures ECG 12 lead Derick Cano PA-C [address] [place] [address] Phone: tel: fax: Referral IDStatusReasonStart DateExpiration DateVisits RequestedVisits [id number] Reason for Visit * Auth/Cert (Routine)SpecialtyDiagnoses / ProceduresReferred By ContactReferred To Contact Diagnoses Chest pain chest pain Chest Pain and SOB Procedures NO CODED SERVICES Woody Barriga MD [address] [place] [address] Phone: tel: fax: [facility] [address] [place] [address] Phone: tel: fax: Referral IDStatusReasonStart DateExpiration DateVisits RequestedVisits [id number] Encounter Details DateTypeDepartmentCare Team (Latest Contact Info)Ghfowfjcbqc71/25/2025 9:55 AM EDT - 06/24/2025 3:00 PM EDTHospital Encounter [facility] [address] [place] [address] Giorgio Aguilar MD [address] [place] [id number] Woody Barriga MD [address] [place] [address] Chest pain (Primary Dx); NSTEMI (non-ST elevated myocardial infarction) (CMS/HCC); Nonrheumatic mitral valve regurgitation; Nonrheumatic tricuspid valve regurgitation; Chest pain, unspecified type; 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; Chronic diastolic heart failure (CMS/HCC) Discharge Disposition: Home or Self Care () Social History Tobacco UseTypesPacks/DayYears UsedDateSmoking Tobacco: FormerCigarettesPassive Smoke Exposure: PastSmokeless Tobacco: NeverAlcohol UseStandard Drinks/Week CommentsYes0 (1 standard drink = 0.6 oz pure alcohol)occasionalAHC Utilities AnswerDate RecordedIn the past 12 months has the electric, gas, oil, or water company threatened to shut off services in your [...] were you homeless or living in a care home (including now)?No06/21/2025Hunger Vital SignAnswerDate RecordedWithin the past 12 months, you worried that your food would run out before you got the money to buymore.Never true06/21/2025Ran Out of Food in the Last YearNot on file06/21/2025CommentsUnknownSex and Gender Information ValueDate RecordedSex Assigned at NtspwUlhhhx69/07/2025 12:14 PM EDTLegal Sex Aahcss4501/28/2025 8:42 AM EDTGender QzaprnzlBeeetf99/07/2025 12:14 PM EDTSexual OrientationHeterosexual or Kjoyhifw20/07/2025 12:14 PM EDTdocumented as of this encounter Last Filed Vital Signs Vital SignReadingTime TakenCommentsBlood Ddgtjhph996/6610/ 1:00 PM EDT Hvbbn746906/24/2025 1:00 PM QENHoipbnrbctl08.1 ??C (98.8 ??F)06/24/2025 4:44 AM EDTRespiratory Lxpy542106/24/2025 1:00 PM EDTOxygen Jnzlczwjzn17%06/24/2025 1:00 PM EDTInhaled Oxygen Concentration--Npoudc97.4 kg (91 lb 3.2 oz)06/24/2025 6:27 AM FXYNvjdna721.4 cm (5')06/21/2025 10:42 AM EDTBody Mass Index17.8106/21/2025 10:42 AM EDTdocumented in this encounter Functional Status * QuestionAnswerDate of AssessmentAuthorHeart Rate OvterfRtnhfxi32/26/2025 7:55 PM Alejo Sweeney RN * [place] Fall RiskQuestionAnswerDate of AssessmentAuthorHistory of Falling, Immediate or Within 3 Rwrsav861 9:00 AM Beth Coates RN Secondary Wtsmvtgmc8984/28/2025 9:00 AM Beth Coates RNAmbulatory Aid0 06/24/2025 9:00 AM Beth Coates RNIntravenous Therapy/Heparin Lock20 06/24/2025 9:00 AM Beth Coates RNGait/Zayfmxsolsln7601/28/2025 9:00 AM Beth Coates RNMental Vqttfi963/28/2025 9:00 AM Beth Coates RNMorse Fall Risk Kqnft857506/24/2025 9:00 AM Beth Coates RN * Sebas ScaleQuestionAnswerDate of AssessmentAuthorBraden No Risk Interventions Continue to assess patient according to level of care06/24/2025 9:00 AM EDT Beth Randall, RNSensory Pzmgbehougb903/28/2025 9:00 AM Beth Coates CAYkbypaik235/28/2025 9:00 AM Beth Coates RNActivity3 06/24/2025 9:00 AM Beth Coates RNMobility31 9:00 AM Beth Barajas RNNutrition31 9:00 AM Beth Coates RN Friction and Gluky274 9:00 AM Beth Coates RNBraden Scale Pczii7104/28/2025 9:00 AM Beth Coates RN * QuestionAnswerDate of AssessmentAuthorPatient SabzqxdpYcxtx50/27/2025 5:57 AM Noemí No PCT * [place] Fall Risk InterventionsQuestionAnswerDate of AssessmentAuthor [place] Fall Risk WvdmuwicasrhbVjcgnknn11/28/2025 9:00 AM Beth Coates RN * Pain Assessment TimerQuestionAnswerDate of AssessmentAuthorRestart Pain Assessment XfwpaJgl63/28/2025 9:00 AM Beth Coates RN * Sepsis Model ScoresQuestionAnswerDate of AssessmentAuthorEarly Detection of Sepsis Score1.0506/24/2025 3:00 PM Gomez LyonsEarly Detection of Sepsis Score0. 2:46 PM Gomez Lyons * Pain AssessmentQuestionAnswerDate of AssessmentAuthorPain Interventions Emotional ieqzbwe6906/24/2025 9:00 AM Beth Coates RNPatient's Stated Pain GoalNo pain06/24/2025 9:00 AM Beth Coates RNClinical Progression Not mfeljvn5506/24/2025 9:00 AM Beth Coates RNPain Score0 - No pain 06/24/2025 9:00 AM Beth Coates RNPain AssessmentNo/denies pain 06/24/2025 9:00 AM Beth Coates RN * Audit Alcohol ScreeningQuestionAnswerDate of AssessmentAuthorHow often do you have a drink containing alcohol? 10:43 AM Jonnie Nolasco RN * QuestionAnswerDate of JrhroucavfXqtpvmPK358/6606/24/2025 1:00 PM Beth Coates HYUkgxe8136/28/2025 1:00 PM Beth Coates RN * Deterioration Index ScoreQuestionAnswerDate of AssessmentAuthorDeterioration Index Score35.371 2:46 PM Arely Lyonsq * Head, Ears, Eyes, Nose, and Throat (HEENT)QuestionAnswerDate of Assessment AuthorHead, Ears, Eyes, Nose, and Throat (WDL)X1 9:00 AM Beth Coates RNR EyeMildly impaired vision;Corrective zycwuk1806/24/2025 9:00 AM Beth Barajas RNL EyeMildly impaired vision;Corrective btovhz5006/24/2025 9:00 AM Beth Coates RNR EarModerately impaired hearing;Hearing aid 06/24/2025 9:00 AM Beth Coates RNL EarModerately impaired hearing;Hearing aid06/24/2025 9:00 AM Beth Coates RNVoiceHoarse 06/23/2025 8:20 PM Hellen Cary RNTeethDentures upper;Dentures lower 06/24/2025 9:00 AM Beth Coates RN * QuestionAnswerDate of AssessmentAuthorMAP (mmHg)8606/24/2025 1:00 PM Beth Barajas RN * Short Portable Mental StatusQuestionAnswerDate of AssessmentAuthorWhat are the date, month, year? 9:00 AM Beth Coates RNWhat is the day of the week? 9:00 AM Beth Coates RNWhat is the name of this place? 9:00 AM Beth Coates RNWhat is your phone number? 9:00 AM Beth Coates RNHow old are you? 9:00 AM Beth Coates RNWhen were you born? 9:00 AM EDT Beth Randall RNWho is the current president? 9:00 AM EDT Beth Randall RNWho was the president before him? 9:00 AM EDT Beth Randall RNWhat was your mother's maiden name? 9:00 AM EDT Beth Randall RNCan you count backward from 20 by 3s? 8:20 PM Hellen Cary, RNShort Portable Mental Fknoq270 8:20 PM EDT Jany November, RN * Fall Risk LevelQuestionAnswerDate of AssessmentAuthorMobility zoneLow (Green Zone)06/24/2025 9:00 AM Beth Coates RNMorse fall risk zoneLow (Green Zone)06/24/2025 9:00 AM Beth Coates RNMental status questionaire zone Low (Green Zone)06/24/2025 9:00 AM Beth Coates RN * HearingAnswerDate of AssessmentAuthorMild HOH1 10:34 AM Tammy Wilson OT * Skin IntegrityAnswerDate of AssessmentAuthorall visible skin jyntlz3106/23/2025 10:34 AM Tammy Wilson OT * Hand DominanceAnswerDate of UrjnvewxrpCrulquXtqc96/27/2025 10:34 AM Tammy Wilson OT * Skin Assessment Sign offQuestionAnswerDate of AssessmentAuthorDual Sign-off - Admission/SebuaojrArmgkaw31/25/2025 10:31 AM Alireza Avendnao RNAny new wounds identified on admission/transfer?No06/21/2025 10:31 AM Alireza Avendano RN * 6 Clicks (Mobility)QuestionAnswerDate of AssessmentAuthorHelp from another person climbing 3-5 steps with a qselzjx769/27/2025 10:02 AM Jose De Luna PTHelp from another person turning from your back to your side while in a flat bed without using bzizfirx742/27/2025 10:02 AM Jose De Luna, PTHelp from another person moving from lying on your back to sitting on the side of a flat bed without using /27/2025 10:02 AM Jose De Luna, PTHelp from another person moving to and from a bed to a chair (including a wheelchair)3 06/23/2025 10:02 AM Jose De Luna PTHelp from another person standing up from a chair using your arms (e.g. wheelchair or bedside chair) 10:02 AM Jose De Luna PTHelp from another person to walk in hospital room 10:02 AM Jose De Luna, PTMobility 6 Clicks T-Nrvfo4439/27/2025 10:02 AM Jose De Luna, PT * Vital SignsQuestionAnswerDate of NrexvplxpwEwbcbeRzcd08.81 4:44 AM Hellen Cary, RNTemp eghQmrykxtn37/28/2025 4:44 AM Hellen Cary, labor economist Rate GvrtdaZfrxxdw55/26/2025 7:55 PM Alejo Sweeney RNBP LocationRight arm06/24/2025 12:25 AM Hellen Cary RNBP IxzqzuNbmfgdbey21/26/2025 7:55 PM Alejo Sweeney RN * QuestionAnswerDate of SlgxlhmhnfKmaljgEsF00211/28/2025 1:00 PM Beth Coates RN * QuestionAnswerDate of AssessmentAuthorPulse rate from Plethysmogram (bpm)78 06/24/2025 1:00 PM Beth Coates RN * QuestionAnswerDate of AssessmentAuthorSwallowAble to swallow solids and liquids without xjsowvzrkp56/28/2025 9:00 AM Beth Coates RN * QuestionAnswerDate of AssessmentAuthorCardiac JdljmtRAL41/28/2025 9:00 AM Beth Barajas RN * GastrointestinalQuestionAnswerDate of AssessmentAuthorGastrointestinal (WDL) WDL1 9:00 AM Beth Coates RN * Peripheral VascularQuestionAnswerDate of AssessmentAuthorPeripheral Vascular (WDL)WDL1 9:00 AM Beth Coates RNCapillary RefillLess than/equal to 2 seconds (All extremities)06/24/2025 9:00 AM Beth Coates RNPulsesRight pedal;Left pedal;Right posterior tibial;Left posterior tibial;Left radial;Right csftgo9806/24/2025 9:00 AM Beth Coates RNEdema Right lower extremity;Left lower rzormmeze90/25/2025 8:42 PM Juana No RN * RUAngel Neurovascular AssessmentQuestionAnswerDate of AssessmentAuthorRUE Capillary RefillLess than/equal to 2 zokwbfh3606/24/2025 9:00 AM Beth Coates RNRUE ColorAppropriate for zafpleiji70/28/2025 9:00 AM Beth Coates RNRUE Temperature/KcxnzemzYmqr60/28/2025 9:00 AM Beth Coates RNRight Radial Pulse+ 9:00 AM Beth Coates RN * LUAngel Neurovascular AssessmentQuestionAnswerDate of AssessmentAuthorLUE Capillary RefillLess than/equal to 2 knblgng6606/24/2025 9:00 AM Beth Coates RNLUE ColorAppropriate for stavrongx16/28/2025 9:00 AM Beth Coates RNLUE Temperature/IryzruftDfir84/28/2025 9:00 AM Beth Coates RNLeft Radial Pulse+ 9:00 AM Beth Coates RN * RLAngel Neurovascular AssessmentQuestionAnswerDate of AssessmentAuthorRLE Edema Non-yxbvrzr6906/22/2025 8:20 PM Alejo Sweeney RNRLE Capillary RefillLess than/equal to 2 jufnhzt0406/24/2025 9:00 AM Beth Coates RNRLE Color Appropriate for gvgrzxbuc10/28/2025 9:00 AM Beth Coates RNRLE Temperature/WjvucqkmJcvd57/28/2025 9:00 AM Beth Coates RNRight Posterior Tibial Pulse+ 9:00 AM Beth Coates RNRight Pedal Pulse+ 9:00 AM Beth Coates RN * LLE Neurovascular AssessmentQuestionAnswerDate of AssessmentAuthorLLE Edema Non-ivhgjim4006/22/2025 8:20 PM Alejo Sweeney RNLLE Capillary RefillLess than/equal to 2 pbwadpz2406/24/2025 9:00 AM Beth Coates RNLLE Color Appropriate for fveuyyxyy63/28/2025 9:00 AM Beth Coates RNLLE Temperature/DsnzfwywUjlk40/28/2025 9:00 AM Beth Coates RNLeft Posterior Tibial Pulse+ 9:00 AM Beth Coates RNLeft Pedal Pulse+ 9:00 AM Beth Coates RN * MusculoskeletalQuestionAnswerDate of AssessmentAuthorMusculoskeletal (WDL)WDL 06/24/2025 9:00 AM Beth Coates RN * PsychosocialQuestionAnswerDate of AssessmentAuthorPsychosocial (WDL)WDL 06/24/2025 9:00 AM Beth Coates RN * QuestionAnswerDate of AssessmentAuthorUrinary UvrekgwklbohFr41/28/2025 6:27 AM Sherine Coats STNA * Morris[place] Fall RiskQuestionAnswerDate of AssessmentAuthorHistory of Falling, Immediate or Within 3 Xxsjhn844/28/2025 9:00 AM Beth Coates RN Secondary Wmqjndqrk2465/28/2025 9:00 AM Beth Coates, RNAmbulatory Aid0 06/24/2025 9:00 AM Beht Coates RNIntravenous Therapy/Heparin Lock20 06/24/2025 9:00 AM Beth Coates RNGait/Owphukmmpaty4876/28/2025 9:00 AM Beth Coates RNMental Tqbpix161/28/2025 9:00 AM Beth Coates RNMorse Fall Risk Vrrdo087606/24/2025 9:00 AM Beth Coates, RN * Sebas ScaleQuestionAnswerDate of AssessmentAuthorBraden No Risk Interventions Continue to assess patient according to level of care06/24/2025 9:00 AM EDT Beth Randall, RNSensory Purptawtiqd758/28/2025 9:00 AM Beth Coates, NHXnviuarz743/28/2025 9:00 AM Beth Coates, RNActivity3 06/24/2025 9:00 AM Beth Coates, AMVtlmygzc714/28/2025 9:00 AM EDT Beth Randall, TXUujlpqmfl452/28/2025 9:00 AM Beth Coates, RN Friction and Gilnc310 9:00 AM Beth Coates RNBraden Scale Gwtuv2605/28/2025 9:00 AM Beth Coates, RN * CardiacQuestionAnswerDate of AssessmentAuthorCardiac (WDL)WDL1 8:20 PM Raeann November, RN * RespiratoryQuestionAnswerDate of AssessmentAuthorBilateral Breath Sounds Clear;Nbqfalpfjx74/27/2025 8:20 PM Raeann November, RNRespiratory Pattern Ukaidr0706/22/2025 8:20 PM Alejo Sweeney, RNChest AssessmentSymmetrical 06/23/2025 8:20 PM Raeann November, RNRespiratory (WDL)X1 8:20 PM Raeann November, RNRespiratory QfdtayErensucvo66/27/2025 8:20 PM Raeann November, RNRespiratory Depth/ColwluNyyailc71/27/2025 8:20 PM Raeann November, RNBreath SoundsBilateral breath oxpzzj7906/23/2025 8:20 PM Hellen Cary RN * Charting TypeQuestionAnswerDate of AssessmentAuthorCharting TypeShift nkhotcgamd97/28/2025 9:00 AM Beth Coates RN * RLE AssessmentQuestionAnswerDate of AssessmentAuthorRLE AssessmentWFL 06/23/2025 10:36 AM Tammy Wilson OT * LLE AssessmentQuestionAnswerDate of AssessmentAuthorLLE AssessmentWFL 06/23/2025 10:36 AM Tammy Wilson OT * ProprioceptionQuestionAnswerDate of AssessmentAuthorProprioceptionNo apparent isxwmzsi73/27/2025 10:34 AM Tammy Wilson OT * QuestionAnswerDate of AssessmentAuthorPatient VttjfuerAxwxj28/27/2025 5:57 AM Noemí No PCT * CognitionQuestionAnswerDate of AssessmentAuthorDeficitsFully aware of deficits 06/23/2025 10:33 AM Tammy Wilson OTQRCqtnwkkkowedzLfjapk28/27/2025 10:33 AM Tammy Wilson OTOverall Cognitive TsqxyzSGW29/27/2025 10:33 AM Tammy Clemons OTArousal/AlertnessAppropriate responses to hgddwla3606/23/2025 10:33 AM Tammy Wilson OTAttention SpanAppears dpgdlf3406/23/2025 10:33 AM Tammy Wilson OTMemoryAppears osckdu5506/23/2025 10:33 AM Tammy Wilson OTFollowing CommandsFollows all commands and directions without lwcpgevtex45/27/2025 10:33 AM Tammy Wilson OTSafety JudgmentGood awareness of safety gakwhultfmn13/27/2025 10:33 AM Tammy Wilson OT Awareness of ErrorsGood awareness of errors made06/23/2025 10:33 AM Tammy Wilson OTProblem SolvingAssistance required to identify errors made;Assistance required to generate vfvwlgthe68/27/2025 10:33 AM Tammy Wilson, OT * SensationQuestionAnswerDate of AssessmentAuthorLight TouchNo apparent deficits 06/23/2025 10:34 AM Tammy Wilson, OTSensation Commentsdenies n/t 06/23/2025 10:34 AM Tammy Wilson, OT * PerceptionQuestionAnswerDate of AssessmentAuthorInattention/NeglectAppears rzftns0306/23/2025 10:34 AM Tammy Wilson, OTInitiationAppears intact 06/23/2025 10:34 AM Tammy Wilson, MICHAELMotor PlanningAppears intact 06/23/2025 10:34 AM Tammy Wilson, OTPerseverationNot ixkvlir4406/23/2025 10:34 AM Tammy Wilson, OT * Vision - Basic AssessmentQuestionAnswerDate of AssessmentAuthorCurrent Vision Wears glasses all the time06/23/2025 10:34 AM Tammy Wilson, OT * Cultural Requests During HospitalizationAnswerDate of AssessmentAuthornone 06/21/2025 10:00 PM Juana No RN * Spiritual Requests During HospitalizationAnswerDate of AssessmentAuthornone 06/21/2025 10:00 PM Juana No RN * GenitourinaryQuestionAnswerDate of AssessmentAuthorUrine AppearanceUnable to ocxjqi6406/22/2025 8:20 PM Alejo Sweeney RNUrine OdorUnable to assess 06/22/2025 8:20 PM Alejo Sweeney RNGenitourinary (WDL)WDL1 9:00 AM Beth Coates RN * NeurologicalQuestionAnswerDate of AssessmentAuthorLevel of ConsciousnessAlert 06/23/2025 8:20 PM Raeann November, RNOrientation LevelOriented X41 8:20 PM Raeann November, RNCognitionAppropriate yypqluesu75/27/2025 8:20 PM Raeann November, QZMnmktlSkojg40/27/2025 8:20 PM EDTMiranda, November, RNLUE Motor ResponseResponds to ldbpgqer19/27/2025 8:20 PM EDTMirandaNovember, RNLUE SensationFull sbijcehiq46/27/2025 8:20 PM EDTMirandaNovember, RNLLE Motor ResponseResponds to sgcobpju90/27/2025 8:20 PM EDTMirandaNovember, RNLLE SensationFull yvsxajmcw04/27/2025 8:20 PM EDTMirandaNovember, RNRUE Motor ResponseResponds to tvwpific56/27/2025 8:20 PM EDTMirandaNovember, RNRUE SensationFull zkiamoqyb53/27/2025 8:20 PM EDTMirandaNovember, RNRLE Motor ResponseResponds to arhtdyxo89/27/2025 8:20 PM EDTMirandnovember, RNRLE SensationFull /27/2025 8:20 PM EDTMirandnovember, RNNeuro (WDL)WDL 06/23/2025 8:20 PM EDirandnovember, RN * Patient MonitoringQuestionAnswerDate of AssessmentAuthorFrequency of Checks Twice per hour, sohymekk20/28/2025 9:00 AM Beth Coates RN * Prior FunctionQuestionAnswerDate of AssessmentAuthorPrior Functional Mobility Independent without goexyh8706/23/2025 10:34 AM Tammy Wilson, MICHAELLevel of IndependenceIndependent with ADLs and functional transfers;Independent with homemaking with ldhqxrqogj67/27/2025 10:34 AM aTmmy Wilson, OTReceives Help TdlfRhbbma06/27/2025 10:34 AM Tammy Wilson, OTVocationalRetired 06/23/2025 10:34 AM Tammy Wilson, OTADL RcgbhqbfefBlciuwlrtlu89/27/2025 10:34 AM Tammy Wilson, OTHomemaking VagfmeaapfOeubluqmrbr51/27/2025 10:34 AM Tammy Wilson, OT * ADLQuestionAnswerDate of AssessmentAuthorBathing AssistanceStand by06/23/2025 10:37 AM Tammy Wilson, MICHAELEating UrjhvgamnmBzdkmhinzlf48/27/2025 10:37 AM Tammy Wilson OTGrooming AssistanceModified independent (Device) 06/23/2025 10:37 AM Tammy Wilson OTUE Dressing AssistanceStand by 06/23/2025 10:37 AM Tammy Wilson OTLE Dressing AssistanceStand by 06/23/2025 10:37 AM Tammy Wilson OTToileting Assistance with DeviceStand by06/23/2025 10:37 AM Tammy Wilson OT * Activity ToleranceQuestionAnswerDate of AssessmentAuthorStage III (METs 2.0- 3.0) - Sitting to Wmpvrumk52-88 mins06/23/2025 10:35 AM Tammy Wilson OT EnduranceStage III06/23/2025 10:35 AM Tammy Wilson OTActivity Tolerance Commentstolerating session well, vitals WNL on RA ajipplmkfw33/27/2025 10:35 AM Tammy Wilson OT * RUE AssessmentQuestionAnswerDate of AssessmentAuthorRUE AssessmentWFL 06/23/2025 10:36 AM Tammy Wlison OT * LUE AssessmentQuestionAnswerDate of AssessmentAuthorLUE AssessmentWFL 06/23/2025 10:36 AM Tammy Wilson OT * PrecautionsQuestionAnswerDate of AssessmentAuthorMedical Precautions telemetry;IV;fall risk06/23/2025 10:32 AM Tammy Wilson OT * PlanQuestionAnswerDate of AssessmentAuthorPT PlanSkilled PT06/23/2025 10:02 AM Jose De Luna PTTreatment/InterventionsFunctional transfer training;LE strengthening/ROM;Bed mobility;Gait training;Balance wqehijqb60/27/2025 10:02 AM Jose De Luna PTPT Frequency4 times per week06/23/2025 10:02 AM Jose Fung PTPT - Discharge Recommendations FskqgmVnf86/27/2025 10:02 AM Jose De Luna PTPT Discharge RecommendationsPatient is able to return to prior living zsemzniqixe96/27/2025 10:02 AM Jose De Luna, PT * Hand FunctionQuestionAnswerDate of AssessmentAuthorGross GraspFunctional 06/23/2025 10:36 AM Tammy Wilson PIMorpdxnizhxtVyfgehygiy66/27/2025 10:36 AM Tammy Wilson OT * PlanQuestionAnswerDate of AssessmentAuthorLevel of assist1 cjqbqh3306/23/2025 10:41 AM Tammy Wilson OTEquipment Zqbcwltpsofnnii43/27/2025 10:41 AM EDT Tammy Brunner OTTreatment InterventionsADL retraining;Functional transfer training;UE strengthening/ROM;Endurance training;Patient/family t raining;Compensatory technique mkbqfemyc19/27/2025 10:41 AM Tammy Wilson OTOT Frequency3 times per week06/23/2025 10:41 AM Tammy Wilson OTOT - Discharge Recommendations SrzdnhYgp89/27/2025 10:41 AM Tammy Wilson OTOT PlanSkilled OT06/23/2025 10:41 AM Tammy Wilson OTOT Discharge RecommendationsPatient is able to return to prior living strxppzflna16/27/2025 10:41 AM Tammy Wilson OT * Safe EnvironmentQuestionAnswerDate of AssessmentAuthorArm Bands On ID;Allergies;Fall06/24/2025 9:00 AM Beth Coates RNSide Rails/Bed Safety2/ 9:00 AM Beth Coates RNBed JksewvIb76/28/2025 9:00 AM Beth Coates RNThe Patient's Environment is BoztLms58/28/2025 9:00 AM Beth Coates RN * MobilityQuestionAnswerDate of VupxjlfnzoWrusmpHpekiprwma72/28/2025 9:00 AM Beth Barajas RNActivity PedlujvthVvyb98/28/2025 1:00 PM Beth Coates RNRepositionedSitting;Turns self06/24/2025 1:00 PM Beth Coates RNLevel of AssistanceIndependent after set-up06/24/2025 9:00 AM TRICET Beth Randall RNHead of Bed ElevatedSelf djtqanvts51/28/2025 9:00 AM TRICET Beth Randall, RNHeels/FeetHeels elevated off bed06/22/2025 8:00 AM EDT Alireza Awad RNRange of MotionActive;All mohgiwmfqbj11/28/2025 9:00 AM EDT Beth Randall, RNAnti-Embolism DevicesBilateral;Sequential compression devices, below knee06/24/2025 9:00 AM Beth Coates RNAnti-Embolism FgteturnfcybMoc50/28/2025 9:00 AM Beth Coates RNPatient's mobility zoneZone 9:00 AM Beth Coates RNPositioning FrequencyAble to turn self06/24/2025 9:00 AM Beth Coates RN * HygieneQuestionAnswerDate of AssessmentAuthorLinen changePartial linen change 06/22/2025 8:00 AM Alireza Avendano RNSkin CarePer self06/24/2025 9:00 AM Beth Coates RNHygienePeri care06/24/2025 9:00 AM Beth Coates RNOral CarePer self06/24/2025 9:00 AM Beth Coates RNLevel of AssistanceMinimal qrzsvi1306/24/2025 9:00 AM Beth Coates RNIs Patient Total Care?No06/24/2025 9:00 AM Beth Coates RNIncontinence Protective DevicesAbsorbent pad06/24/2025 9:00 AM Beth Coates RN * PrecautionsQuestionAnswerDate of AssessmentAuthorPrecautionsBleeding;Fall 06/24/2025 9:00 AM Beth Coates RN * Comfort and Environment InterventionsQuestionAnswerDate of AssessmentAuthor TroxiojAddwwgdtzhlh39/28/2025 9:00 AM Beth Coates RN * ADL ScreeningQuestionAnswerDate of AssessmentAuthorDo you snore or wake up gasping for air?No06/21/2025 10:41 AM Jonnie Nolasco RNCan you bring in your CPAP/BiPAP from home?N/A1 10:41 AM Jonnie Nolasco RN Patient's Vision Adequate to Safely Complete Daily EvvrsieqopGzu95/25/2025 10:41 AM Jonnie Nolasco RNPatient's Judgment Adequate to Safely Complete Daily JyxokrukypDzf66/25/2025 10:41 AM Jonnie Nolasco RNPatient's Memory Adequate to Safely Complete Daily JoxjiifkqnKuk06/25/2025 10:41 AM Jonnie Nolasco RNPatient Able to Express Needs/ExwfhhkBmr84/25/2025 10:41 AM Jonnie Stone RNDressingIndependent06/21/2025 10:41 AM Jonnie Nolasco RNGroomingIndependent06/21/2025 10:41 AM Jonnie Nolasco RN DndtfyzKzzagtsvftl71/25/2025 10:41 AM Jonnie Nolasco RNBathing Bormyygusds17/25/2025 10:41 AM Jonnie Nolasco RNToiletingIndependent 06/21/2025 10:41 AM Jonnie Nolasco RNIn/Out ZsnQunuploybdz27/25/2025 10:41 AM Jonnie Nolasco RNWalks in GtciTghsdonipez53/25/2025 10:41 AM Jonnie Nolasco RNWeakness of LjdeZpnb77/25/2025 10:41 AM Jonnie Nolasco RNWeakness of Arms/HvrtbMwbl64/25/2025 10:41 AM Jonnie Nolasco RNHearing - Right EarHearing aid06/21/2025 10:41 AM Jonnie Nolasco RN Hearing - Left EarHearing aid06/21/2025 10:41 AM Jonnie Nolasco RNWhich is your dominant hand?Left06/21/2025 10:41 AM Jonnie Nolasco RN * ConsultsQuestionAnswerDate of AssessmentAuthorSpiritual Care Consult NeededNo 06/21/2025 10:43 AM Jonnie Nolasco RNSocial Services Consult NeededYes (Comment)06/21/2025 10:43 AM Jonnie Nolasco RNPalliative Care Consult RxabamIa07/25/2025 10:43 AM Jonnie Nolasco RN * Therapy ConsultsQuestionAnswerDate of AssessmentAuthorPT Evaluation Needed1 06/21/2025 10:41 AM Jonnie Nolasco RNOT Evaluation Npadkl251 10:41 AM Jonnie Nolasco RNSLP Evaluation Uquyfq387/25/2025 10:41 AM Jonnie Stone RN * Assistive DevicesQuestionAnswerDate of AssessmentAuthorAssistive Devices Dentures upper;Dentures lower;Hearing aid - left;Hearing aid - right;Vxqetrdqhz66/25/2025 10:41 AM Jonine Nolasco RN * Provider NotificationQuestionAnswerDate of AssessmentAuthorProvider Role Bpvpaigysva28/26/2025 1:00 AM Ju[place] No RNProvider [facility] 06/22/2025 1:00 AM Juana No RNMethod of CommunicationEpic Chat 06/22/2025 1:00 AM Juana No RNReason for CommunicationCritical lab value06/22/2025 1:00 AM Juana No RNResponseNo new gcwytx1006/22/2025 1:00 AM Juana No RN * AM-PAC 6 ClicksQuestionAnswerDate of AssessmentAuthorTotal Score OT AMPAC20 06/23/2025 10:31 AM Tammy Wilson OTToileting, which includes using the toilet,bedpan,or urinal?310 10:31 AM Tammy Wilson, OTEating meals?410 10:31 AM Tammy Wilson OTBathing(Including washing,rinsing,drying)? 10:31 AM Tammy Wilson, OTTaking care of personal grooming such as brushing teeth? 10:31 AM Tammy Wilson OTPutting on and taking off regular lower body clothing? 10:31 AM Tammy Wilson OTPutting on and taking off regular upper body clothing? 10:31 AM Tammy Wilson OT * [place] Fall Risk InterventionsQuestionAnswerDate of AssessmentAuthor [place] Fall Risk OwkwpdbcfswmkLszjsytc93/28/2025 9:00 AM Beth Coates RN * OT Last VisitQuestionAnswerDate of AssessmentAuthorOT Received [id number] 06/23/2025 10:30 AM Tammy Wilson OT * PT AssessmentQuestionAnswerDate of AssessmentAuthorPT AssessmentPatient is a 84 y/o female presenting with impaired activity tolerance/functional independence. Will benefit from additional skilled PT services to maximize safety/independence.06/23/2025 10:02 AM Jose De Luna PTPrognosisGood 06/23/2025 10:02 AM Jose De Luna PTImpairmentsDecreased endurance;Impaired balance;Decreased zrqmxtid25/27/2025 10:02 AM Jose De Luna, PTMedical Staff Made XmbzyYth27/27/2025 10:02 AM Jose De Luna, PT Evaluation/Treatment TolerancePatient tolerated treatment well06/23/2025 10:02 AM Jose De Luna, PT * Static Standing BalanceQuestionAnswerDate of AssessmentAuthorStatic Standing- Balance SupportNo upper extremity wxshbdurk87/27/2025 10:36 AM Tammy Wilson OTStatic Standing-Level of AssistanceClose ztroidsigdx36/27/2025 10:36 AM Tammy Wilson OT * Dynamic Standing BalanceQuestionAnswerDate of AssessmentAuthorDynamic Standing Balance-Level of AssistanceContact guard06/23/2025 10:36 AM Tammy Wilson OTDynamic Standing-Balance SupportRight upper extremity paznazbob38/27/2025 10:36 AM Tammy Wilson OT * Dynamic Sitting BalanceQuestionAnswerDate of AssessmentAuthorDynamic Sitting Balance-Level of AssistanceClose ohscuhyioix27/27/2025 10:36 AM Tammy Wilson OTDynamic Sitting-Commentsperforming hygiene on ljtwvu43 10:36 AM Tammy Wilson OTDynamic Sitting-Balance SupportFeet supported;Left upper extremity supported;Right upper extremity supported 06/23/2025 10:36 AM Tammy Wilson OTDynamic Sitting-BalanceLateral lean;Forward lean06/23/2025 10:36 AM Tammy Wilson OT * AmbulationQuestionAnswerDate of AysmkedesiDrwwvrXodpbcvuwwIts61/27/2025 10:02 AM Jose De Luna PT * CoordinationQuestionAnswerDate of AssessmentAuthorMovements are Fluid and MbrmgfwyltwStj44/27/2025 10:34 AM Tammy Wilson OT * Postural ControlQuestionAnswerDate of AssessmentAuthorPostural ControlWFL 06/23/2025 10:02 AM Jose De Luna PT * GeneralQuestionAnswerDate of AssessmentAuthorSubjective I wish I could take a shower Pt pleasant and agreeable to OT/PT SOM gomez per RN. Pt in bed at start and end of session with transport taking her for heart cath.06/23/2025 10:31 AM Tammy Wilson OTOT Diagnosisimpaired ADL status 2/2 chest pain 06/23/2025 10:31 AM Tammy Wilson OTPatient SummaryPatient is a 84 y/o female who presents 06/21/25 from OSH with chest pain and SOB. Elevated troponins, NSTEMI, R BBB.06/23/2025 10:31 AM Tammy Wilson OT * GeneralQuestionAnswerDate of AssessmentAuthorSubjectiveRN approved PT session and OOB activitry this date. In bed upon arrival, agreeable to session. Upon completion, patient left in the bed with patient transport present to take her off of the floor.06/23/2025 10:02 AM Jose De Luna PTPT DiagnosisImpaired activity tolerance/balance.06/23/2025 10:02 AM Jose De Luna PTPatient SummaryPatient is a 84 y/o female who presents 06/21/25 from OSH with chest pain and SOB. Elevated troponins, NSTEMI, R BBB.06/23/2025 10:02 AM Jose De Luna, PT * Bed MobilityQuestionAnswerDate of AssessmentAuthorBed OjmemmzpQhg02/27/2025 10:38 AM Tammy Wilson OT * Bed Mobility 1QuestionAnswerDate of AssessmentAuthorBed Mobility Comments 1HOB elevated ~30 bxqbbny0406/23/2025 10:38 AM Tammy Wilson OTBed Mobility From 1Hcbbpl4206/23/2025 10:38 AM Tammy Wilson OTBed Mobility Type 1To and from 06/23/2025 10:38 AM Tammy Wilson OTBed Mobility to 1Short sit06/23/2025 10:38 AM Tammy Wilson OTLevel of Assistance 7Ksirjbnnwqq62/27/2025 10:38 AM Tammy Wilson OT * TransfersQuestionAnswerDate of AssessmentAuthorAmbulation commentsdemo'd functional mobility throughout room. Initially using IV pole for external support with RUE however able to ambulate without external support as well with CGA for safety. Pt demo'ing slow pace with short steps however no LOB noted06/23/2025 10:38 AM Tammy Wilson OTTransferYes1 10:38 AM Tammy Wilson OT * Transfer 1QuestionAnswerDate of AssessmentAuthorTransfer Device 1none 06/23/2025 10:38 AM Tammy Wilson OTTrials/Comments 1good hand placement noted06/23/2025 10:38 AM Tammy Wilson OTTransfer From 1Bed;Sit06/23/2025 10:38 AM Tammy Wilson OTTransfer Type 1To and from06/23/2025 10:38 AM Tammy Wilson OTTransfer to 6Zpcqg8406/23/2025 10:38 AM Tammy Wilson OTTechnique 1Sit to stand;Stand to sit06/23/2025 10:38 AM Tammy Wilson OTTransfer Level of Assistance 1Close hcsujnkflqh65/27/2025 10:38 AM Tammy Wilson, OT * Transfers 2QuestionAnswerDate of AssessmentAuthorTransfer Device 2none 06/23/2025 10:38 AM Tammy Wilson OTTrials/Comments 2good hand placement noted06/23/2025 10:38 AM Tammy Wilson OTTransfer From 0Kpees41 10:38 AM Tammy Wilson OTTransfer Type 2To and from06/23/2025 10:38 AM Tammy Wilson OTTransfer to 2Sit;Bhxerr53 10:38 AM Tammy Wilson OTTechnique 2Sit to stand;Stand to sit06/23/2025 10:38 AM Tammy Wilson OTTransfer Level of Assistance 2Close xgdmivrmwso87/27/2025 10:38 AM Tammy Wilson OT * Static Sitting BalanceQuestionAnswerDate of AssessmentAuthorStatic Sitting- Balance SupportFeet fpaifpzkc21/27/2025 10:36 AM Tammy Wilson OTStatic Sitting-Level of LeimkqqgcxPkspvtlqzdr29/27/2025 10:36 AM Tammy Wilson OTStatic Sitting-Comment/Number of Minutessitting EOB and on jftlii17 10:36 AM Tammy Wilson OT * Ambulation 1QuestionAnswerDate of AssessmentAuthorSurface 1Level tile 06/23/2025 10:02 AM Jose De Luna PTDevice 1No bwmpyi0606/23/2025 10:02 AM Jose De Luna PTAssistance 1Close yzfbkigwjkv72/27/2025 10:02 AM Jose Fung PTQuality of Gait 1Slow pace with short step length, mild increased postural sway without LOB or significant instability.06/23/2025 10:02 AM Jose De Luna PTComments/Distance (ft) 145 ft - initial 20 ft patient pushed IV pole with RUE, remaining 25 f t patient completed without BU E support. No significant change in gait process/unuhujcwh26/27/2025 10:02 AM Jose De Luna, PT * Home LivingQuestionAnswerDate of AssessmentAuthorEntrance Stairs-RailsRight 06/23/2025 10:33 AM Tammy Wilson OTEntrance Stairs-Number of Steps4 06/23/2025 10:33 AM Tammy Wilson OTHome AccessStairs to enter with rails 06/23/2025 10:33 AM Tammy Wilson OTTypangel of DeskBgmhr73/27/2025 10:33 AM Tammy Wilson OTHome LayoutOne level06/23/2025 10:33 AM Tammy Wilson OTBathroom Shower/TubTub/shower unit06/23/2025 10:33 AM Tammy Wilson OTBathroom ToiletHandicapped kkjfng3306/23/2025 10:33 AM Tammy Wilson OTBathroom IchduyoxjIesd92/27/2025 10:33 AM Tammy Wilson OTHome Adaptive DhhssuhboVykzkd45/27/2025 10:33 AM Tammy Wilson OTLives With Ezhwdk2606/23/2025 10:33 AM Tammy Wilson OT * OT AssessmentQuestionAnswerDate of AssessmentAuthorOT Assessment/GENERAL ACCOUNTING CLERK Summary Patient would benefit from Skilled OT to address decreased independence with ADLs, safety awareness, balance, and to promote overall function. At this time, Patient would be safety to return to priorliving environment with support.06/23/2025 10:40 AM Tammy Wilson OTOT Education/CommentsOT role/purpose, safety awareness, compensatory strategies, OT POC, discharge bluefsml95/27/2025 10:40 AM Tammy Wilson OTStrengthsAbility to acquire knowledge;Support of extended family/friends;Living arrangement secure 06/23/2025 10:40 AM Tammy Wilson OTBarriers to DischargeComorbidities 06/23/2025 10:40 AM Tammy Wilson OTPrognosisGood1 10:40 AM EDT Tammy Brunner OTOT ImpairmentsDecreased ADL status;Decreased endurance;Decreased functional mobility;Decreased IADLs;Decreased trunk control for functional wexvamrldx39/27/2025 10:40 AM Tammy Wilson OT Evaluation/Treatment TolerancePatient tolerated treatment well06/23/2025 10:40 AM Tammy Wilson, MICHAELMedical Staff Made XugpbCpg91/27/2025 10:40 AM EDT Tammy Brunner, OT * PT Last VisitQuestionAnswerDate of AssessmentAuthorPT Received [id number] 06/23/2025 10:02 AM Jose De Luna, YECENIA * Suicidal IdeationQuestionAnswerDate of AssessmentAuthor1. Wish to be (Lifetime)No06/21/2025 10:44 AM Jonnie Nolasco RN2. Non-Specific Active Suicidal Thoughts (Lifetime)No06/21/2025 10:44 AM Jonnie Nolasco RN * Pain AssessmentQuestionAnswerDate of AssessmentAuthorPain Interventions Emotional hhblfhn8006/24/2025 9:00 AM Beth Coates RNPatient's Stated Pain GoalNo pain06/24/2025 9:00 AM Beth Coates RNClinical Progression Not zbebeiv2606/24/2025 9:00 AM Beth Coates RNPain Score0 - No pain 06/24/2025 9:00 AM Beth Coates RNPain AssessmentNo/denies pain 06/24/2025 9:00 AM Beth Coates RN * NutritionQuestionAnswerDate of AssessmentAuthorDiet TypeHeart healthy 06/24/2025 9:00 AM Beth Coates, RNFeedingAble to feed self06/24/2025 9:00 AM Beth Coates, PHLelxzchfOjak64/28/2025 9:00 AM Beth Coates, ZOFIA * Peripheral Vascular Additional AssessmentsAnswerDate of AssessmentAuthorLeft upper /27/2025 4:00 PM Beth Coates, ZOFIA * IntegumentaryQuestionAnswerDate of AssessmentAuthorIntegumentary (WDL)WDL 06/24/2025 9:00 AM Beth Coates RN * QuestionAnswerDate of AssessmentAuthorUrine ColorUnable to uligxk5806/24/2025 12:00 AM Hellen Cary RN * QuestionAnswerDate of AssessmentAuthorLast BM Txjb0233397/25/2025 3:00 PM Alireza Yang RNStool JoklyWxkju56/25/2025 3:00 PM Alireza Avendano RN Stool AgmuuzrgayUiedft73/25/2025 3:00 PM Alireza Avendano RN * Audit Alcohol ScreeningQuestionAnswerDate of AssessmentAuthorHow often do you have a drink containing alcohol? 10:43 AM Jonnie Nolasco RN * QuestionAnswerDate of AssessmentAuthorPatient Goal for Treatmentd/06/24/2025 9:00 AM Beth Coates RN * Drug ScreeningQuestionAnswerDate of AssessmentAuthorHave you used any substances (canabis, cocaine, heroin, hallucinogens, inhalants, etc.) in the past12 months?No06/21/2025 10:43 AM Jonnie Nolasco RNHave you used any prescription drugs other than prescribed in the past 12 months?No06/21/2025 10:43 AM Jonnie Nolasco RN * QuestionAnswerDate of RciprqdgrrEewwfhHJ556/6606/24/2025 1:00 PM Beth Coates, ASQnbac4845/28/2025 1:00 PM Beth Coates RNResp2706/24/2025 1:00 PM Beth Coates RN * Care Plan - Safety GoalsQuestionAnswerDate of AssessmentAuthorFree from fall injuryAssess patient frequently for physical needs06/24/2025 9:00 AM EDT Beth Randall, ZOFIA * Acute TriageQuestionAnswerDate of AssessmentAuthorTriage Calwzbeu367/27/2025 10:12 AM Jose De Luna PTTriage GroupCardiovascular and pulmonology 06/23/2025 10:12 AM Jose De Luna, PT * Modified AldreteQuestionAnswerDate of AjmugtsjwqSpjmhgRmzkbtaa595/27/2025 12:40 PM Irma Love RNRespiration 12:40 PM EDIrma Martini RNCirculation 12:40 PM Irma Love RNConsciousness 12:40 PM Irma Love RNOxygen Llfsxoxphd300/27/2025 12:40 PM Irma Love RNModified Annemarie Joaid6170/27/2025 12:40 PM EDT Irma Dash RN * Modified Malnutrition Screening Tool (MST)QuestionAnswerDate of Assessment AuthorHave you recently lost weight without trying? 10:46 AM EDT Jonnie Chaudhari RNHave you been eating poorly because of a decreased appetite? 10:46 AM Jonnie Nolasco RNOn home tube feeding or TPN? 10:46 AM Jonnie Nolasco RNDoes patient have a stage 2-4 pressure ulcer? 10:46 AM Jonnie Nolasco RN * Weight Loss ScoreAnswerDate of SgykuzylyxNzxpbm491/25/2025 10:46 AM Jonnie Nolasco RN * Malnutrition ScoreAnswerDate of PhdllunddwZczqgy749/25/2025 10:46 AM EDT Jonnie Chaudhari RN documented as of this encounter Mental Status * Montes Agitation Sedation ScaleQuestionAnswerEntry DateAutrRichmond Agitation Sedation Scale (RASS) 12:30 PM EDIrma Martini RN * Modified AldreteQuestionAnswerEntry ZyhzXqenahBovzcnlh717/27/2025 12:40 PM EDT Irma Dash RNRespiration 12:40 PM EDTMIrma pedroza RN Lbfzpuhvuoe340/27/2025 12:40 PM EDIrma Martini RNConsciousness2 06/23/2025 12:40 PM EDIrma Martini RNOxygen Qsucrlpjzy193/27/2025 12:40 PM EDIrma Martini RNModified Annemarie Rrsiq6769/27/2025 12:40 PM EDT Irma Dash RN documented in this encounter Discharge Summaries * Giorgio Aguilar MD - 06/24/2025 9:45 AM EDT Images from the original note were not included. Hospital Medicine Discharge Summary Admission Date: 06/21/2025 9:55 AM Total duration of encounter: 3 days Final Discharge Diagnosis: Principal Problem: Chest pain Active Problems: Benign essential hypertension COPD (chronic obstructive pulmonary disease) ([facility] Paroxysmal supraventricular tachycardia Mitral regurgitation Tricuspid regurgitation Acute on chronic heart failure with preserved ejection fraction (HFpEF) ([facility]) Pulmonary HTN ([facility]) Acute hypoxic respiratory failure ([facility] Chronic hypoxic respiratory failure, on home oxygen therapy ([facility]) NSTEMI (non-ST elevated myocardial infarction) ([facility]) Nonobstructive CAD Chronic diastolic heart failure ([facility]) Admission Diagnosis: Chest pain [R07.9] Hospital course: Aleksandr Sanchez is a 84 y.o. female with a past medical history significant for SVT, COPD, HFpEF, HLD, pulmonary HTN. Patient presented with chest pain to [place]. EKG showed sinus rhythm with RBBB. Peak troponin 603 now down trending. She was initiated on a heparin gtt [facility]. Patient had last cardiac cath 2018 and was negative for significant coronary artery disease. Echo was done and showed EF 55%. Doppler study suggested moderately elevated right-sided pressures.There is suggestion of an atrial septal defect. Moderate to severe MR and moderate to severe TR. Patient was taken to the cardiac cat and showed mild coronary artery disease with normal intracoronary physiology of the LAD including normal FFR and normal coronary flow reserve. Also comment of normal right heart cath. Patient being discharged home today and to follow-up with PCP in [address] Beyer how you good yeah Surgical, Invasive or Diagnostic Procedures Done During Admission: Cardiac Cath Consultations During Admission: Cardiology # Elevated troponin: # Chest pain: # Nonobstructive CAD: - Cath showed mild disease. - Continue aspirin, pravastatin, metoprolol. # Moderate to severe mitral regurgitation: # Moderate to severe tricuspid regurgitation: - ROMAN was attempted but it was unable to pass the probe. # COPD: # Chronic hypoxic respiratory failure, on 1 liter: - Continue home inhalers. # HTN: - Continue lisinopril. # Chronic HFpEF: - Discharged on spironolactone along with home torsemide. Dear DO Montejo Patricia is advised to follow up with you within 1-2 weeks. Items to follow up in ambulatory setting: None Follow-up with: None Scheduled appointments: Future Appointments Date Time Provider Department Center 07/02/2025 3:20 PM Jennifer Marroquin CNP [facility] Your medication list START taking these medications Instructions Last Dose Given Next Dose Due spironolactone 25 mg tablet Commonly known as: Aldactone Take 0.5 tablets (12.5 mg) by mouth in the morning. CHANGE how you take these medications Instructions Last Dose Given Next Dose Due lisinopril 5 mg tablet Start taking on: June 25, 2025 What changed: medication strength how much to take Take 1 tablet (5 mg) by mouth in the morning. Do not start before June 25, 2025. CONTINUE taking these medications Instructions Last Dose Given Next Dose Due albuterol 2.5 mg /3 mL (0.083 %) nebulizer solution aspirin 81 mg EC tablet brimonidine-timoloL 0.2-0.5 % ophthalmic solution Commonly known as: Combigan CALCIUM CARBONATE-VITAMIN D3 ORAL clonazePAM 0.5 mg tablet Commonly known as: KlonoPIN esomeprazole [address] capsule Commonly known as: NexIUM fluticasone 50 mcg/actuation nasal spray Commonly known as: Flonase wycgadwrmty-sizuvzuqh-nzunugso 100-62.5-25 mcg blister with device latanoprost 0.005 % ophthalmic solution Commonly known as: Xalatan metoprolol tartrate 50 mg tablet Commonly known as: Lopressor Take 1 tablet (50 mg) by mouth two times daily. pravastatin 40 mg tablet Commonly known as: Pravachol torsemide 10 mg tablet Commonly known as: Demadex Take 2 tablets (20 mg) by mouth in the morning. Increase torsemide to 20mg daily x7 days then alternate days of 10mg and 20mg daily STOP taking these medications potassium chloride CR 10 mEq ER tablet Commonly known as: Klor-Con predniSONE 10 mg tablet Commonly known as: Deltasone Where to Get Your Medications These medications were sent to [facility] - [address] [place] [address] [address] [facility] [place] [address], [facility] [address] lisinopril 5 mg tablet spironolactone 25 mg tablet Aleksandr is allergic to codeine. Disposition: Home or Self Care () Discharge Condition: Stable Code Status: Prior Diagnostic Results Hematology: Results from last 7 days Lab Units 06/24/2544006/22/25 0501 06/21/25 1015 WBC AUTO 10*3/uL -- 10.54 11.80* HEMOGLOBIN g/dL 10.9* 11.6* 12.8 HEMATOCRIT % 34.9* 35.3* 39.0 MCV fL -- 94.1 93.5 PLATELETS AUTO 10*3/uL -- 271 310 Chemistry: Results from last 7 days Lab Units 06/24/25 04406/22/25 0501 06/21/25 1015 SODIUM mmol/L 138 141 141 POTASSIUM mmol/L 3.9 3.7 3.8 CHLORIDE mmol/L 109* 107 103 CO2 mmol/L 22 29 29 BUN mg/dL 12 21 38* CREATININE mg/dL 0.59* 0.72 0.99 GLUCOSE mg/dL 82 87 96 MAGNESIUM mg/dL 1.9 -- 2.1 CALCIUM mg/dL 8.9 9.3 9.5 No lab exists for component: AFIO2 , APHT , APCOT , APOT , ATCO2 , CK , ALB , IBILI Test Results Pending At Discharge: Diet at the time of discharge: cardiac diet Nutrition Screen Activity: Normal activity as tolerated Objective Blood pressure 139/66, pulse 77, temperature 37.1 ??C (98.8 ??F), temperature source Temporal, resp. rate (!) 27, height 1.524 m (5'), weight 41.4 kg (91 lb 3.2 oz), SpO2 94%. General: Alert and oriented x3. Cardiology: Normal rate, regular rhythm. Lungs: Clear to auscultation, no wheezes, rales or rhonchi, symmetric air entry. Abdomen: Soft, non tender, non distended. Total time for discharge - review of data, exam, discussion with providers and care-team, med-rec and orders, arranging follow up, counseling of patient and/or family and documentation was 30 minutes. Signed Giorgio Aguilar MD [facility] 06/25/2025 8:39 AM CC: Gust[place], DO documented in this encounter Discharge Instructions * Discharge Instr - Activity* Kristina Rodrigez LPN - 06/24/2025 8:53 AM EDT Fall risk precautions * Discharge Instr - Diet* Kristina Rodrigez LPN - 06/24/2025 8:54 AM EDT Heart Healthy/HTN, CABG,Stroke, (2gNA, low fat, low cholesterol) * Appointments* Suzy Etienne RN - 06/24/2025 10:36 AM EDT Scheduled Appointments -Please follow up with the providers listed above.?? -If you are unable to keep your appointments, please call to reschedule as soon as possible.?? -Failure to cancel/reschedule your appointments, may result in dismissal from your medical providers practice(s).? * Discharge Instr - Other Orders* Suzy Etienne RN - 06/24/2025 8:53 AM EDT Follow Post cath instructions: (radial) left wrist No lifting greater than 5 pounds for 72 hours after procedure You may resume your normal activities gradually over the next week, or as instructed Keep arm elevated on pillow overnight with brachial and radial cath sites. Keep puncture site dry for 24 hours; may shower 24 hours after procedure Remove band aid dressing from site the morning after the procedure Do not sit in bath water, Jacuzzi or pool/pond/harris for one week Notify physician if you develop: IF BLEEDING APPLY FIRM PRESSURE TO THE SITE If bleeding heavily report to the emergency room Severe pain to cath site Hard, painful, swelling larger than a quarter at puncture site Numbness and or tingling Fever greater than 101 degrees Redness, warmth, drainage at puncture site DNRCC-A no intubation Resume home oxygen: 1 L n[place], Make sure to call [facility] prior to moving to [place]. They confirmed that they have an office in [facility]. You will need to call them 1-2 weeks before moving, so they know to transfer you to the local office in [place]. They will also be able to tell you the steps ontaking your equipment to [place]. *Continue heart healthy diet and low sodium diet. *Monitor daily weights, fluid restriction 1.5-2Liters/day *Call office for weight gain of 2 pounds in 1 day or 5 pounds in 1 week, increased leg swelling, shortness of breath or shortness of breath at night and having to sleep sitting up taller/more pillowsthan normal or in recliner. [phone]. documented in this encounter Medications at Time of Discharge MedicationSigDispense QuantityRefillsLast FilledStart DateEnd Date aspirin 81 mg EC tablet Take 81 mg by mouth in the morning. brimonidine-timoloL (Combigan) 0.2-0.5 % ophthalmic solution in the morning and at bedtime.03/07/2019 CALCIUM CARBONATE-VITAMIN D3 ORAL Take 1 tablet by mouth in the morning. clonazePAM (KlonoPIN) 0.5 mg tablet Take 0.5 mg by mouth in the morning. esomeprazole (NexIUM) [address] capsule in the morning.07/23/2018 fluticasone (Flonase) 50 mcg/actuation nasal spray Administer 2 sprays into each nostril two times daily. sdldtagffnn-nyvhxsytx-zqtetnlc 100-62.5-25 mcg blister with device in the morning.12/24/2024 latanoprost (Xalatan) 0.005 % ophthalmic solution Daily at wotmpfv0707/23/2018 metoprolol tartrate (Lopressor) 50 mg tablet Indications:Atrial tachycardiaTake 1 tablet (50 mg) by mouth two times daily. 180 tablet pravastatin (Pravachol) 40 mg tablet Take 40 mg by mouth at bedtime. torsemide (Demadex) 10 mg tablet Indications:Acute on chronic diastolic heart failure (CMS/HCC),Pulmonary hypertension (CMS/HCC)Take 2 tablets (20 mg) by mouth in the morning. Increase torsemide to 20mg daily x7 days then alternate days of 10mg and 20mg daily 180 tablet acetaminophen (Tylenol) 325 mg tablet Take 325 mg by mouth every 4 (four) hours if needed.10/16/2023 albuterol 2.5 mg /3 mL (0.083 %) nebulizer solution Take 2.5 mg by nebulization three times daily.11/15/2023 lisinopril 5 mg tablet Indications:Chest painTake 1 tablet (5 mg) by mouth in the morning. Do not start before June 25, 2025. 30 tablet 5109/24/2024 metoprolol tartrate (Lopressor) 25 mg tablet Take 1 tablet by mouth Twice daily at 6am and 6pm.05/27/2025 spironolactone (Aldactone) 25 mg tablet Indications:Chronic diastolic heart failure (CMS/HCC)Take 0.5 tablets (12.5 mg) by mouth in the morning. 15 tablet documented as of this encounter Progress Notes * Moni Tejada PTA - 06/24/2025 2:46 PM EDT Physical Therapy Cancellation note for Monday06/24/2025 Pt per nursing is currently getting ready to be discharged to home from the hospital , pt is sitting in a wheelchair with her street clothes on . No therapy services . Attempted time : 14:45-14:46 Cosigned by Jose Price PT at 06/24/2025 3:57 PM EDT * Amber Escobar MD - 06/24/2025 8:01 AM EDT Images from the original note were not included. Cardiology Progress Note Subjective Subjective: Aleksandr Sanchez is a 84 y.o. female with a past medical history significant for SVT, COPD, HFpEF, HLD, pulmonary HTN. Of note, she had previous angina during episode of SVT, for this she underwent previous cardiac catheterization at [facility] on 01/01/2019, which did not show any significant coronary artery disease stenosis. She presented with chest pain to [place]. According to family she had an episode of nausea, chest pain radiating to jaw and left arm, lightheadedness but no syncope on which resolved withina couple hours without treatment and then similar symptoms again yesterday which prompted visit to [place]. EKG showed sinus rhythm with RBBB. Peak troponin 603 now down trending. She was initiated on a heparin gtt and transferred to [facility] for further management of NSTEMI. Once at [facility], she was started on DAPT with aspirin and Plavix, she underwent RHC/Cors on 06/23/2025-CORS unremarkable with nonobstructive CAD varying from 20-30% stenosis involving LAD, RCA, Lcx. RHCalso unremarkable. Plavix was since discontinued and remained on aspirin. She also underwent echo on 06/22 which showed an EF of 55% and RV enlargement concern for elevated RV pressures as well as possible ASD with moderate to severe MR/TR, follow-up ROMAN was done on 06/23, however this was aborted due to patient intolerance and unable to being able to pass the probe Cardiology workup: Echo 06/21/2025: EF 55%, no RWMA, RV enlarged, severe LA enlargement, possible ASD, mod-severe MR, mod-severe TR CORS 01/01/2019: negative for CAD Echo 09/01/2023: EF 55-60%, moderate RA dilation moderate MR, moderate/severe TR RVSP consistent withsevere pulmonary hypertension (RVSP 60.8 mmHg) Cors 06/23/2025: Nonobstructive CAD (20-30% stenosis involving LAD, RCA, Lcx) on ASA RHC 06/23/2025: Unremarkable Cardiac meds: Aspirin 81, pravastatin 40 Lisinopril 2.5, Lopressor 50 twice daily Torsemide 10 twice daily Interval History I saw and examined the patient at bedside today, she remains hemodynamically stable in no acute distress, satting well on room air. She underwent Cors/right heart cath yesterday that-these were largely unremarkable. She also had attempted ROMAN yesterday, however patient did not tolerate this well and so that was aborted. She is largely doing well today with no complaints Objective: Patient Vitals for the past 24 hrs: BP Temp Temp src Pulse Resp SpO2 Weight 06/24/25 0627 -- -- -- -- -- -- 41.4 kg (91 lb 3.2 oz) 06/24/25 0444 133/79 37.1 ??C (98.8 ??F) Temporal 76 22 97 % -- 06/24/25 0025 115/51 36.3 ??C (97.3 ??F) Temporal 72 16 97 % -- 06/23/25 2151 139/69 -- -- 87 21 95 % -- 06/23/25 2100 (!) 126/49 -- -- 81 23 95 % -- 06/23/25 2000 128/58 36.9 ??C (98.4 ??F) Temporal 87 23 97 % -- 06/23/25 1900 -- -- -- 102 26 92 % -- 06/23/25 1807 -- -- -- 103 26 -- -- 06/23/25 1730 149/71 -- -- 79 24 94 % -- 06/23/25 1700 144/59 -- -- 76 (!) 27 95 % -- 06/23/25 1630 148/64 -- -- 78 21 97 % -- 06/23/25 1600 121/61 -- -- 76 21 98 % -- 06/23/25 1530 145/69 -- -- 76 24 96 % -- 06/23/25 1515 -- -- -- 75 21 -- -- 06/23/25 1500 135/56 -- -- 72 26 -- -- 06/23/25 1445 125/78 -- -- 87 20 100 % -- 06/23/25 1430 125/64 -- -- 82 22 98 % -- 06/23/25 1415 (!) 121/99 -- -- 77 20 99 % -- 06/23/25 1400 141/85 -- -- 83 (!) 32 96 % -- 06/23/25 1357 -- -- -- 81 24 -- -- 06/23/25 1345 130/66 -- -- (!) 119 24 95 % -- 06/23/25 1315 -- -- -- 84 (!) 29 -- -- 06/23/25 1300 130/74 -- -- (!) 117 25 96 % -- 06/23/25 1241 112/56 -- -- 69 20 98 % -- 06/23/25 1122 -- -- -- -- -- 98 % -- 06/23/25 1121 (!) 119/49 -- -- 69 19 98 % -- 06/23/25 1103 132/62 -- -- 79 19 100 % -- 06/23/25 1100 128/62 -- -- 78 16 99 % -- 06/23/25 1057 133/82 -- -- 80 19 99 % -- 06/23/25 1056 132/78 -- -- 81 18 94 % -- 06/23/25 1055 123/67 -- -- 85 20 94 % -- 06/23/25 1054 154/62 -- -- 82 17 94 % -- 06/23/25 1045 120/81 -- -- 67 22 98 % -- 06/23/25 1042 119/62 -- -- 67 24 99 % -- 06/23/25 1030 117/56 -- -- 66 17 99 % -- 06/23/25 1015 109/55 -- -- 65 22 99 % -- 06/23/25 1004 -- -- -- -- -- 99 % -- 06/23/25 1004 96/59 -- -- 67 23 99 % -- 06/23/25 0825 137/64 -- -- 78 21 96 % -- Physical Examination: GENERAL: AOx3, in no acute distress. frail NECK: No JVD present. CARDIAC: RRR. No murmur, rubs, or gallops. RESPIRATORY: CTAB, no increased effort of breathing. ABDOMEN: Soft, nontender, nondistended. EXTREMITIES: +1 lower extremity edema, peripheral pulses are 2+ bilaterally. Relevant Lab Results Encounter Date: 06/21/25 ECG 12 lead Result Value Ventricular Rate 78 Atrial Rate 78 CO Interval 126 QRS DURATION 134 QT Interval 418 QTC CALCULATION(BAZETT) 476 P Kinsman 61 R-Kinsman 88 T Wave Kinsman 25 Impression Sinus rhythm with Premature atrial complexes Possible Left atrial enlargement Right bundle branch block Abnormal ECG No previous ECGs available Confirmed by Bautista Knox ([id number]) on 06/21/2025 1:20:56 PM No results found for: CKTOTAL , CKMB , CKMBINDEX , TROPONINI Transesophageal echo (ROMAN) Result Date: 06/23/2025 1 [facility] [address] [place] [address] [phone] (fax) Transesophageal Echocardiogram-[facility] Name: ALEKSANDR SANCHEZ Study Date: 06/23/2025 10:02 AM B/P: 132 mmHg/78 mmHg HR: Date of : 1940ocation: [facility] Height: 60 in. Age: 84 year(s) Patient Room: 3161 Weight: 92 lb. Gender: Female Patient Status: InPt BSA: 1.34 m2 Indication: Mitral regurgitation Examination: Aborted Patient Consent:Informed, written consent was obtained for the procedure Exam Location: Unable to perform ROMAN Anesthesia Pharyngeal anesthesia with viscous Lidocaine Conclusions Overall Conclusions: Unable to pass the probe. Consider doing ROMAN under general ansthesia if clinically indicated. Medications Date Time Name Route Form Dose Units Ordered By Given By Comment 06/23/2025 11:02 AM Midazolam HCL (Versed) 3 milligrams 06/23/2025 11:02 AM Fentanyl (Opiates) 50 micrograms Procedure Staff Reading Group: [facility] Hand Stemmer: Sara Mccarthy RDCS Ordering Physician: Varinder Cruz MD Complete Echo (TTE) w/wo Imaging Agent, Strain, 3D, Bubble Study Result Date: 06/22/2025 1 1 [facility] [address] [place] [phone] (fax) Echocardiogram-[facility] Name: ALEKSANDR SANCHEZ Study Date: 06/21/2025 10:38 AM B/P: 150 mmHg/67 mmHg HR: Date of : 1940 Location: [facility] Height: 60 in. Age: 84 year(s) Patient Room: 3161 Weight: 94 lb. Gender: Female Patient Status: InPt BSA: 1.35 m2 Indication: Dyspnea Examination: Echocardiogram (Complete) Image Quality: Fair Patient Consent: Procedure explained to patient Conclusions Left Ventricle: The left ventricle is normal size. Global left ventricular systolic function is normal. The EF is 55 % visually. Left ventricularwall thickness is normal. No regional wall motion abnormality. Right Ventricle: The right ventricleis enlarged. Normal right ventricular systolic function. Doppler studies suggest moderately elevated right sided pressures (elevated pulmonary pressure). Left Atrium: The left atrium is severely enlar ged. IAS: There is a suggestion of an atrial septal defect. 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 Mitral Valve: Moderate to severe mitral regurgitation. Tricuspid Valve: Normal tricuspid valve. Moderate to severe tricuspid regurgitation. Overall Conclusions: A transesophageal echocardiogram is recommended for better assessment. Measurements Left Ventricle Label Value Normal Value LVOTd2 cm (18cm - 20cm) LVOT VTI 13 cm (18cm - 22cm) LVOT PGmax 2 mmHg LVEF visual 55 % LVDd, 2D 4.62 cm(3.9cm - 5.3cm) LVDs, 2D 3.15 cm (2.1cm - 4cm) IVSd, 2D 0.74 cm (0.6cm - 1.1cm) LVPWd, 2D 0.99 cm (0.6cm - 0.9cm) LV Mass, 2D ASE 131.59 g LV Mass Index, 2D ASE 97.5 g/m?? (44g/m?? - 88.4g/m??) RWT, MM 0.43 (0 - 0.42) LVSVI, 2D 43.7 ml/m2 LVOT PGmean 1 mmHg LVSV_LVOT 41 ml Right Ventricle Label Value Normal Value RVDd, 2D 3.75 cm (1.9cm - 3.8cm) TAPSE 2.11 cm Left Atrium Label Value Normal Value LA Volume, BP 57 ml (22ml - 52ml) LADs, 2D 3.2 cm (2.7cm - 3.8cm) LAESV index, BP 42.2 ml/m?? Right Atrium Label Value Normal Value RA Area 16.2 cm?? Aortic Valve Label Value Normal Value AV DVI 0.59 AV VTI 22.1 cm Mitral Valve Label Value Normal Value MV E Vmax 0.56 m/s MV A Vmax 0.8 m/s MV E/A 0.7MV E/E' lateral 9.3 MV E' lateral 0.06 m/s Tricuspid Valve Label Value Normal Value RA Pressure 8 mmHg RVSP 49 mmHg TR Vmax 3.22 m/s Aorta Label Value Normal Value AoRoot, 2D 2.9 cm (1.4cm - 3.8cm) Great Vessels Label Value Normal Value IVC 1.3 cm (1.2cm - 2.3cm) Valvular Assessment LVOT 0.7 - 1.1 m/sec Aortic Valve 1.0 - 1.7 m/sec Mitral Valve 0.6 - 1.3 m/sec Tricuspid Valve 0.3 - 0.7 m/sec Pulmonic Valve 0.6 - 0.9 m/sec Regurgitation Trivial ModSev Mod-Sev No Max Velocity 0.71 m/sec 1.20 m/s 0.56 m/sec 1.40 m/s Max Gradient 6.00 mmHg 8.00 mmHg Mean Gradient 3.00 mmHg Valve Area 1.9 cm?? Find ings Left Ventricle: The left ventricle is normal size. Global left ventricular systolic function is normal. The EF is 55 % visually. Left ventricular wall thickness is normal. No regional wall motion abnormality. Right Ventricle: The right ventricle is enlarged. Normal right ventricular systolic function. Doppler studies suggest moderately elevated right sided pressures (elevated pulmonary pressure). Left Atrium: The left atrium is severely enlarged. IAS: There is a suggestion of an atrial septal defect. 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 The right atrium is severely enlarged. Mitral Valve: There is nonspecific thickening of the mitral valve leaflet. Moderate to severe mitral regurgitation. Aortic Valve: Focal aortic cusp thickening is noted. Trivial aortic valve regurgitation. Tricuspid Valve: Normal tricuspid valve. Moderate to severe tricuspid regurgitation. Pulmonic Valve: Normal pulmonary valve. No pulmonary regurgitation. Aorta: The aortic root exhibits normal size. Great Vessels: IVC: Normal size and course of the IVC. Pericardium: No pericardial effusion. The Attending Physician has personally reviewed the examination Procedure Staff Reading Group: [facility] Hand Stemmer: Sara Mccarthy RDCS Ordering Physician: DERICK CANO No nuclear medicine results found for the past 12 months Relevant Imaging Results Cardiac catheterization PROCEDURE PHYSICIAN: Nestor Beyer MD Clinical Presentation: 84 y.o. Female with history of SVT, COPD, HFpEF, HLD, pulmonary HTN. Patient presented with chest pain to [facility]. She had nausea, chest pain radiating to jaw and left arm, lightheadedness. EKG showed sinus rhythm with RBBB. Peak HS-troponin 603, then trended down. She was started on a heparin gtt and transferred to [facility] for management of NSTEMI. She also had acute on chronic HFpEF and MR and TR on echo. Final Impression: 1) Coronary angiogram reveals mild CAD 2) normal intracoronary physiology of the LAD including normal FFR and normal coronary flow reserve (CFR) 3) normal right heart catheterization Plan: 1) optimal med therapy for CAD and HFpEF Procedures Performed: coronary angiogram, right heart catheterization, intracoronary physiology assessment of the LAD including FFR and CFR with adenosine, ultrasound guidance for vascular access Procedure Description: The patient was brought to the cardiac catheterization lab in a fasting state. Informed written consent was obtained. she was prepped and draped in usual sterile fashion over the left wrist and right neck and bilateral groins. Time-out was performed. she was given Versed and fentanyl for sedation. 1% lidocaine was infiltrated over the right internal jugular vein. Using ultrasound guidance and a micropuncture access technique a 6 [place] Ze[place]ander sheath was placed in the right internal jugular vein. The Lau catheter was advanced under fluoroscopic and hemodynamic monitoring to the right atrium. Pressure obtained of the right atrium, right ventricle, pulmonary artery, pulmonary capillary position. Oxygen saturation drawn for the pulmonary artery and Martina cardiac with a cardiac index were calculated. 1% lidocaine was infiltrated over the left radial artery. A 6-[place] Zealander Terumo Glidesheath slender was placed in left radial artery. Radial anti-vasospasm cocktail of verapamil 1.25 mg and nitroglycerin 100 mcg was administered through the sheath. All catheter exchanges were made over the Marks guidewire. Coronary angiogram was performed with a JL4 to engage the left main and a JR4 to engage the RCA. Coronary angiogram was performed in multiple orthogonal views. At this time, it was apparent that the LAD had intermediate stenosis and sluggish flow. I decided to proceed with intracoronary physiology assessment. Heparin anticoagulation was used for this procedure. ACT was maintained at >250 seconds. A 6 [place] Hiddenbed JL 3.5 guide was engaged to the left main. The HubCast pressurewireX was zeroed outside of the body. The wire was then manipulated to the proximal LAD and the pressure curves were normalized with the pressure transducer at the catheter guide tip. The wire was then manipulated to the distal LAD. I then performed a 3 baseline saline injections for the baseline part of the CFR assessment. We then infused adenosine and rate of 140 mcg/kg/min for 2 minutes and then perform 3 saline injections for the hyperemic portion of the CFR. The CFR was then calculated it was normal at 2.9. The FFR was then measured and it was normal at 0.91. The IMR was also normal at 20. The procedure was then completed. All catheters and wires were removed. The left radial sheath was removed and a TR band was applied to obtain hemostasis. The right internal jugular venous sheath was removed and manual pressure with a quick clot pad was applied to obtain hemostasis. Specimens Removed: None Complications: None Hemodynamic Data: RA: 4 mmHg RV: 31/7 mmHg PA: 33/11 (21) mmHg PCWP: 14 mmHg AO: 105/55 (70) mmHg CO: 3.1 L/min CI: 2.3 L/min/m2 O2 Sat: PA sat: 65% AO sat: 100% Coronary Angiogram: Left main: The left main is short and patent. The left main bifurcates into the LAD and left circumflex coronary arteries. LAD: The LAD is a moderate caliber vessel. The mid LAD is 30% stenosis. The distal LAD has diffuse 30% stenosis. It is overall small caliber in the distal segment. There is a large first diagonal branch which is patent. LCX: The circumflex is moderate caliber and has 20% stenosis throughout the proximal segment. The circumflex gives rise to multiple very small obtuse marginal branches which are all patent. The remainder of circumflex is patent. RCA: The RCA is a moderate caliber vessel and is dominant. The proximal RCA is 30% stenosis. The mid RCA has 30% stenosis. Remainder of the RCA is patent. The right PLACIDO and PDA are patent. The right PDA is very small. Transesophageal echo (ROMAN) [facility] [address] [place] [address] [phone] (fax) Transesophageal Echocardiogram-[facility] Name: ALEKSANDR SANCHEZ Study Date: 06/23/2025 10:02 AM B/P: 132 mmHg/78 mmHg HR: Date of : 1940 Location: [facility] Height: 60 in. Age: 84 year(s) Patient Room: 3161 Weight: 92 lb. Gender: Female Patient Status: InPt BSA: 1.34 m2 Indication: Mitral regurgitation Examination: Aborted Patient Consent: Informed, written consent was obtained for the procedure Exam Location: Unable to perform ROMAN Anesthesia Pharyngeal anesthesia with viscous Lidocaine Conclusions Overall Conclusions: Unable to pass the probe. Consider doing ROMAN under general ansthesia if clinically indicated. Medications Date Time Name Route Form Dose Units Ordered By Given By Comment 06/23/2025 11:02 AM Midazolam HCL (Versed) 3 milligrams 06/23/2025 11:02 AM Fentanyl (Opiates) 50 micrograms Procedure Staff Reading Group: [facility] Hand Stemmer: Sara Mccarthy RDCS Ordering Physician: Varinder Cruz MD Assessment: NSTEMI, with peak troponin 603, downtrending, no ischemic EKG changes Troponin downtrending 227 > 168>124>94 RHC/Cors 06/23/2025 with nonobstructive CAD involving LAD, RCA, LCX (20-30%) Last cath in 2018 negative for signficant CAD HFpEF last echo in February 2025 EF 55-60%, NYHA IV. BNP 539 RHC 06/23 large unremarkable Pulmonary HTN Paroxysmal SVT HTN, currently borderline BP Plan: RHC/Cors 06/23/2025 largely unremarkable with nonobstructive CAD (20-30% of LAD, RCA, Lcx) and unremarkable RHC Plavix discontinued given nonobstructive CAD Continue ASA 06/22 Echo: EF 55%. RV enlarged with c/f elevated RV pressures. Severe LA enlargement with possibleASD. Mod-sev MR/TR ROMAN attempted on 06/23 for further evaluation - aborted due to patient intolerance - unable to passprobe HFpEF GDMT: Adding aldactone 12.5 every day, can follow in clinic for further GDMT management Increased lisinopril to 5mg every day can continue this on discharge Upon discharge, recommending decreasing torsemide dosage to 20 mg p.o. daily Continue aspirin, pravastatin, lisinopril and lopressor Replete electrolytes, maintain K>4, Mg>2 Cardiology will continue to follow. Please call with any questions. Amber Escobar MD PGY-2 Internal Medicine Resident [facility] Cosigned by Varinder Cruz MD at 06/24/2025 4:29 PM EDT Associated attestation - Varinder Cruz MD - 06/24/2025 4:29 PM EDT By using the attestations below, I agree that I have read and verify that the documentation has been personally reviewed by me and ensure that the documentation accurately reflects the encounter. GC: I personally saw this patient on the day of the encounter, performed the flores portions of the service and participated in the management and treatment plan of the patient. I reviewed and confirm the documentation by the Resident Dr Amber Escobar. Please note there may be an additional personal documentation from me. At this time we we will manage her valvular disease medically. We recommended medication adjustmentas a pertains to ANNIE inhibitor and diuretic therapy. We arranged for a follow-up in the cardiology clinic. Varinder Cruz MD * Mora Pan, RD - 06/23/2025 2:34 PM EDT Adult Nutrition Assessment: Name: Aleksandr Sanchez Date: 1940 Date of Visit: 06/23/25 Admission Dx: Chest pain [R07.9] Reason for assessment: high risk (Bmi) Information obtained from: patient, family, medical record, and nurse -2 family members @ bedside Medical History[1] Current Medications: aspirin, 81 mg, oral, Daily brimonidine, 1 drop, Both Eyes, BID And timolol, 1 drop, Both Eyes, BID clonazePAM, 0.5 mg, oral, Nightly fluticasone, 2 spray, Each Nostril, BID latanoprost, 1 drop, Both Eyes, Nightly lisinopril, 2.5 mg, oral, Daily metoprolol tartrate, 50 mg, oral, BID mometasone-formoterol, 2 puff, inhalation, BID And umeclidinium, 1 puff, inhalation, Daily Oxygen Therapy, , inhalation, Continuous pantoprazole, 40 mg, oral, Daily pravastatin, 40 mg, oral, Nightly Labs: 0 Lab Value Date/Time BUN 21 06/22/2025 0501 CREATININE 0.72 06/22/2025 0501 NA 141 06/22/2025 0501 K 3.7 06/22/2025 0501 MG 2.1 06/21/2025 1015 HGB 11.6 (L) 06/22/2025 0501 WBC 10.54 06/22/2025 0501 BNP 539 Elevated troponin Allergies: Allergies[2] Nutrition Problems: Swallowing Assessment: Swallow screen 06/23 Mouth: upper and lower dentures Abdominal Assessment: Last BM 06/21 I/O: Net fluid: +1.1 L Appetite: Decreased past few months Cognition: A/O x4 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 Upon discharge, she plans to move to [place] with shannan. Per family, appetite has been decreased since PNA dx in December 2024. Pt still consumes 3 meals/day, just smaller amounts. Pt limits fluids to 65 oz/day. Denies adding salt to her foods, although family reports that pt adds salt to a lot of foods, even before tasting it. Family bringing in ensure for pt as she does not like boost. B: something small L: sandwich D: family prepares meal Drink: 2-3 ensure plus/day Dietary Orders (From admission, onward) Start Ordered 06/23/25 0001 Diet NPO Diet effective midnight Comments: Sips with medications Question: Reason for NPO: Answer: Operation/Procedure 06/21/25 1855 06/22/25 1301 Special Kitchen Request Once Comments: Meatloaf and mash potatoes with gravy, cottage cheese, ice tea, with 4 packets of sugar on the side, 06/22/25 1302 06/22/25 0751 Special Kitchen Request Once Comments: Pancake, coffee, 2% milk, [place] sausage, 1 white toast with 2 strawberry jelly 06/22/25 0752 06/21/25 1822 Special Kitchen Request Once Comments: Omelet with kazakh cheese, grits with sugar, butter, 1 nulato and 1 mchugh jello 2% milk 06/21/25 1822 Intakes: 50-100% x3 meals Nutrition Risk: High Nutrition Needs: Needs based on: actual body weight (42.1 kg) Calorie needs: 8075-7496 kcals/day based on 25-30 kcal/kg Protein needs: 42-51 g/day based on 1-1.2 g/kg Fluid needs: 1263 ml/day based on 30 ml/kg Nutrition Diagnosis: Inadequate oral intake r/t decreased appetite aeb pt and family report, non- significant wt changes over past few months Malnutrition Assessment: Per Registered Dietitian assessment and evaluation, patient does not currently meet criteria OR there is not enough information to support the diagnosis of malnutrition per the clinical criteria set by the Academy of Nutrition and Dietetics (AND) and the [place] Society of Enteral and Parenteral Nutrition (ASPEN). Nutrition Education: Diet literature: Verbal Low Na Diet: avoid added salt, discussed alternative ways to flavor food Daily wt monitoring S/S of exacerbation reviewed Encouraged smaller, more frequent intakes and ways to increased calories to prevent wt loss Expected compliance/patient understanding: Good Teach back method: Pt and family voiced understanding Time spent: 15 minutes Treatment Plan: Diet: resume cardiac diet when medically feasible Intakes with all meals ONS: family to provide ensure plus 2-3/day Daily wt monitoring Consider appetite stimulant Consider MVI Goals: Adequate po intakes (kcals and protein); >75% meals Adherence/tolerance to ONS; >75% supplements Understanding of nutrition education/adherence to diet recommendations Weight maintenance Maintain visceral protein To reach the Clinical Dietitian, please utilize [facility] chat Monday-Monday from 8AM-4PM or call extension [phone]. For weekends (Monday-Monday) and hols, the Clinical Dietitian can be reached via pager ([phone]) from 9AM-3PM. The Clinical Nutrition Department is unable to respond to [employer] chat messages on Sundays and s. [1] Past Medical History: Diagnosis Date CHF (congestive heart failure) ([facility]/HCC) COPD (chronic obstructive pulmonary disease) (CMS/HCC) Hyperlipidemia Hypertension [2] Allergies Allergen Reactions Codeine Nausea Only * Jose Price, PT - 06/23/2025 10:11 AM EDT Physical Therapy Physical Therapy Evaluation Patient Name: Aleksandr Sanchez : 1940 Today's Date: 06/23/2025 Start Time: 929 Stop Time: 944 Time Calculation (min): 15 min PT Evaluation Time Entry PT Evaluation (Low) Time Entry: 15 General Subjective: RN approved PT session and OOB activitry this date. In bed upon arrival, agreeable to session. Upon completion, patient left in the bed with patient transport present to take her off of the floor. Patient Summary: Patient is a 84 y/o female who presents 06/21/25 from OSH with chest pain and SOB.Elevated troponins, NSTEMI, R BBB. PT Diagnosis: Impaired activity tolerance/balance. Problem List[1] Medical History[2] Surgical History[3] Precautions Precautions Medical Precautions: telemetry, IV, fall risk Pain Pain Assessment Pain Assessment: No/denies pain Pain Score: 0 - No pain Cognition Cognition Overall Cognitive Status: Within Functional Limits Arousal/Alertness: Appropriate responses to stimuli Orientation Level: Oriented X4 Following Commands: Follows all commands and directions without difficulty General Assessment General Assessment Hearing: Mild [place] Hand Dominance: Right Home Living Home Living Type of Home: House Lives With: Family (Lives with grandson and his .) Home Adaptive Equipment: Oxygen (1L O2) Home Layout: One level Home Access: Stairs to enter with rails Entrance Stairs-Rails: Right Entrance Stairs-Number of Steps: 4 Bathroom Shower/Tub: Tub/shower unit Bathroom Toilet: Handicapped height Bathroom Equipment: None Prior Level of Function Prior Function Level of Hunt: Independent with ADLs and functional transfers, Independent with homemaking with ambulation Prior Functional Mobility: Independent without device Receives Help From: Family ADL Assistance: Independent Homemaking Assistance: Independent Vision Basic Assessment Vision - Basic Assessment Current Vision: Wears glasses all the time Vision - Complex General Assessments Activity Tolerance Endurance: Stage III Sensation Light Touch: No apparent deficits Coordination Movements are Fluid and Coordinated: Yes Postural Control Postural Control: Within Functional Limits Static Sitting Balance Static Sitting-Balance Support: Feet supported Static Sitting-Level of Assistance: Independent Dynamic Sitting Balance Dynamic Sitting-Balance Support: Right upper extremity supported, Left upper extremity supported, Feet supported Dynamic Sitting-Balance: Forward lean, Lateral lean Dynamic Sitting Balance-Level of Assistance: Close supervision Static Standing Balance Static Standing-Balance Support: No upper extremity supported Static Standing-Level of Assistance: Close supervision Dynamic Standing Balance Dynamic Standing-Balance Support: Right upper extremity supported (RUE on IV pole for management and mild external support) Dynamic Standing Balance-Level of Assistance: Contact guard Functional Assessments Bed Mobility Bed Mobility: Yes Bed Mobility 1 Bed Mobility From 1: Supine Bed Mobility Type 1: To and from Bed Mobility to 1: Short sit Level of Assistance 1: Independent Bed Mobility Comments 1: HOB elevatd ~30 degrees Transfers Transfer: Yes Transfer 1 Technique 1: Sit to stand, Stand to sit (From EOB) Transfer Device 1: none Transfer Level of Assistance 1: Close supervision Trials/Comments 1: BUE on EOB for support without verbal cues Ambulation Ambulation: Yes Ambulation 1 Surface 1: Level tile Device 1: No device Assistance 1: Close supervision Quality of Gait 1: Slow pace with short step length, mild increased postural sway without LOB or significant instability. Comments/Distance (ft) 1: 45 ft - initial 20 ft patient pushed IV pole with RUE, remaining 25 f t patient completed without BUE support. No significant change in gait process/stability Extremity Assessments RUE Assessment RUE Assessment: Within Functional Limits LUE Assessment LUE Assessment: Within Functional Limits RLE Assessment RLE Assessment: Within Functional Limits LLE Assessment LLE Assessment: Within Functional Limits Outcome Assessments 6 Clicks (Mobility) Help from another person turning from your back to your side while in a flat bed without using bedrails: None Help from another person moving from lying on your back to sitting on the side of a flat bed without using bedrails: None Help from another person moving to and from a bed to a chair (including a wheelchair): A little Help from another person standing up from a chair using your arms (e.g. wheelchair or bedside chair): A little Help from another person to walk in hospital room: A little Help from another person climbing 3-5 steps with a railing: A little Mobility 6 Clicks T-Score: 20 Assessment/Plan PT Assessment Impairments: Decreased endurance, Impaired balance, Decreased mobility PT Assessment: Patient is a 84 y/o female presenting with impaired activity tolerance/functional independence. Will benefit from additional skilled PT services to maximize safety/independence. Prognosis: Good Evaluation/Treatment Tolerance: Patient tolerated treatment well Medical Staff Made Aware: Yes Plan Level of assist: 1 assist Treatment/Interventions: Functional transfer training, LE strengthening/ROM, Bed mobility, Gait training, Balance training PT Plan: Skilled PT PT Frequency: 4 times per week PT Discharge Recommendations: Patient is able to return to prior living environment Equipment Recommended: none PT - Discharge Recommendations Placed: Yes PT Goals Multi-Disciplinary Problems (from Physical Therapy) Active Problems Problem: PT Misc Start Date: 06/23/25 Goal Start Date Expected End Date End Date Patient to demonstrate the ability to complete all bed mobility independently with HOB flat 06/23/25 07/04/25 -- Goal Start Date Expected End Date End Date Patient to demonstrate the ability to complete all transfers independently 06/23/25 07/04/25 -- Goal Start Date Expected End Date End Date Patient to demonstrate the ability to ambulate 150 ft independently with assistive device as [id number]/27/25 07/04/25 -- Goal Start Date Expected End Date End Date Patient to demo the ability to maintain standing balance throughout all standing functional tasks with assistive device as needed 06/23/25 07/04/25 -- Goal Start Date Expected End Date End Date Patient to participate in BLE exercise to improve strength and limit effects of immobility related to hospital admission. 06/23/25 07/04/25 -- Goal Start Date Expected End Date End Date Patient to demo the ability to complete 4 steps independently with use of railing to gain access into her home. 06/23/25 07/04/25 -- [1] Patient Active Problem List Diagnosis Benign essential hypertension Chest pain COPD (chronic obstructive pulmonary disease) ([facility]) Dyspnea Edema Fainting Former cigarette smoker Hyperlipidemia Paroxysmal supraventricular tachycardia Acute on chronic heart failure with preserved ejection fraction (HFpEF) ([facility]) Pulmonary HTN ([facility]) Acute hypoxic respiratory failure ([facility]) Chronic hypoxic respiratory failure, on home oxygen therapy ([facility]) NSTEMI (non-ST elevated myocardial infarction) ([facility]) Chronic diastolic heart failure ([facility]) [2] Past Medical History: Diagnosis Date CHF (congestive heart failure) ([facility]) COPD (chronic obstructive pulmonary disease) ([facility]) Hyperlipidemia Hypertension [3] Past Surgical History: Procedure Laterality Date APPENDECTOMY CARDIAC CATHETERIZATION HYSTERECTOMY * Woody Barriga MD - 06/23/2025 10:00 AM EDT Images from the original note were not included. [facility] Medicine Daily Progress Note - 06/23/2025 10:00 AM; Room: [address] [place] [address] Admission: 06/21/2025 9:55 AM; Length of stay: 2 days THE HOSPITALIST TEAM PREFERS TO USE [employer] FOR NON-URGENT COMMUNICATION 7AM- 7PM. IF I DO NOT RESPOND WITHIN 20 MINUTES OR URGENT MATTERS, PLEASE CALL THROUGH THE MAIL RIDER. FROM 7PM-7AM, PLEASE PAGE [phone](COVR). Code Status: DNR CC-A Barriers to Discharge: NSTEMI workup with echocardiogram and cardiac cath Expected Discharge Date: 1 day ? Discharge Destination: home Overview Patient is seen for evaluation and management of chest pain/NSTEMI. Subjective Seen today in her room, denies any chest pain or shortness of breath. Physical Exam Cardiovascular: Rate and Rhythm: Normal rate and regular rhythm. Pulses: Normal pulses. Pulmonary: Effort: Pulmonary effort is normal. No respiratory distress. Breath sounds: Normal breath sounds. No wheezing, rhonchi or rales. Neurological: General: No focal deficit present. Visit Vitals BP 113/52 Pulse 65 Temp 36.2 ??C (97.2 ??F) (Temporal) Resp 23 Intake/Output Summary (Last 24 hours) at 06/23/2025 1000 Last data filed at 06/22/2025 1400 Gross per 24 hour Intake 480 ml Output -- Net 480 ml Estimated body mass index is 18.12 kg/m?? as calculated from the following: Height as of this encounter: 1.524 m (5'). Weight as of this encounter: 42.1 kg (92 lb 12.8 oz). Assessment and Plan Assessment & Plan Chest pain NSTEMI (non-ST elevated myocardial infarction) ([facility]) Paroxysmal supraventricular tachycardia - Trops trending down in the last one of - EKG consistent with sinus rhythm right bundle branch block Last cardiac cath 2018 negative for significant coronary artery disease - Continue heparin gtt, plan for echo and cardiac cath today -Continue aspirin, Plavix, pravastatin, lisinopril and Lopressor - Patient is DNRCCA COPD (chronic obstructive pulmonary disease) ([facility]) - Resume home inhalers, patient currently on Dulera and Incruse Ellipta Benign essential hypertension Continue above-mentioned medication Chronic hypoxic respiratory failure, on home oxygen therapy ([facility]) - on 1L home O2. Stable Chronic diastolic heart failure ([facility]) Patient has history of heart failure preserved EF based on echo in March 16 2555 to 60%, NYHA class IV Patient seems well compensated Continue for now lisinopril and Lopressor VTE Prophylaxis: IV heparin Scheduled Meds aspirin, 81 mg, oral, Daily brimonidine, 1 drop, Both Eyes, BID And timolol, 1 drop, Both Eyes, BID clonazePAM, 0.5 mg, oral, Nightly clopidogrel, 75 mg, oral, Daily fluticasone, 2 spray, Each Nostril, BID latanoprost, 1 drop, Both Eyes, Nightly lisinopril, 2.5 mg, oral, Daily metoprolol tartrate, 50 mg, oral, BID mometasone-formoterol, 2 puff, inhalation, BID And umeclidinium, 1 puff, inhalation, Daily Oxygen Therapy, , inhalation, Continuous pantoprazole, 40 mg, oral, Daily pravastatin, 40 mg, oral, Nightly heparin, 0-28 Units/kg/hr, Last Rate: 17 Units/kg/hr (06/22/25 1629) Pertinent Investigations Hematology: Results from last 7 days Lab Units 06/22/25 0501 06/21/25 1015 WBC AUTO 10*3/uL 10.54 11.80* HEMOGLOBIN g/dL 11.6* 12.8 HEMATOCRIT % 35.3* 39.0 MCV fL 94.1 93.5 PLATELETS AUTO 10*3/uL 271 310 Chemistry: Results from last 7 days Lab Units 06/22/25 0501 06/21/25 1015 SODIUM mmol/L 141 141 POTASSIUM mmol/L 3.7 3.8 CHLORIDE mmol/L 107 103 CO2 mmol/L 29 29 BUN mg/dL 21 38* CREATININE mg/dL 0.72 0.99 GLUCOSE mg/dL 87 96 MAGNESIUM mg/dL -- 2.1 CALCIUM mg/dL 9.3 9.5 No lab exists for component: AFIO2 , APHT , APCOT , APOT , ATCO2 , CK , ALB , IBILI Historical Values: (Includes values prior to this admission) No results found for: PREALBUMIN , TSH , T3FREE , FREET4 , CORTISOL , FEV1 , UFI5HTK , DLCO , RVSP , HDL , LDL No results found for: NDZFJZSU16 , IRON , TIBC , C3 , C4 , TIMOTHY , CANCA , ASO , PSA , CEA , CA125 , CA199 , AFP , CA153 Imaging Complete Echo (TTE) w/wo Imaging Agent, Strain, 3D, Bubble Study 1 [facility] Heart Station [address] [place] [address] [phone] (fax) Echocardiogram-[facility] Name: ALEKSANDR SANCHEZ Study Date: 06/21/2025 10:38 AM B/P: 150 mmHg/67 mmHg HR: Date of : 1940 Location: [facility] Height: 60 in. Age: 84 year(s) Patient Room: 3161 Weight: 94 lb. Gender: Female Patient Status: InPt BSA: 1.35 m2 Indication: Dyspnea Examination: Echocardiogram (Complete) Image Quality: Fair Patient Consent: Procedure explained to patient Conclusions Left Ventricle: The left ventricle is normal size. Global left ventricular systolic function is normal. The EF is 55 % visually. Left ventricular wall thickness is normal. No regional wall motion abnormality. Right Ventricle: The right ventricle is enlarged. Normal right ventricular systolic function. Doppler studies suggest moderately elevated right sided pressures (elevated pulmonary pressure). Left Atrium: The left atrium is severely enlarged. IAS: There is a suggestion of an atrial septal defect. 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 Mitral Valve: Moderate to severe mitral regurgitation. Tricuspid Valve: Normal tricuspid valve. Moderate to severe tricuspid regurgitation. Overall Conclusions: A transesophageal echocardiogram is recommended for better assessment. Measurements Left Ventricle Label Value Normal Value LVOTd 2 cm (18cm - 20cm) LVOT VTI 13 cm (18cm - 22cm) LVOT PGmax 2 mmHg LVEF visual 55 % LVDd, 2D 4.62 cm (3.9cm - 5.3cm) LVDs, 2D 3.15 cm (2.1cm - 4cm) IVSd, 2D 0.74 cm (0.6cm - 1.1cm) LVPWd, 2D 0.99 cm (0.6cm - 0.9cm) LV Mass, 2D ASE 131.59 g LV Mass Index, 2D ASE 97.5 g/m?? (44g/m?? - 88.4g/m??) RWT, MM 0.43 (0 - 0.42) LVSVI, 2D 43.7 ml/m2 LVOT PGmean 1 mmHg LVSV_LVOT 41 ml Right Ventricle Label Value Normal Value RVDd, 2D 3.75 cm (1.9cm - 3.8cm) TAPSE 2.11 cm Left Atrium Label Value Normal Value LA Volume, BP 57 ml (22ml - 52ml) LADs, 2D 3.2 cm (2.7cm - 3.8cm) LAESV index, BP 42.2 ml/m?? Right Atrium Label Value Normal Value RA Area 16.2 cm?? Aortic Valve Label Value Normal Value AV DVI 0.59 AV VTI 22.1 cm Mitral Valve Label Value Normal Value MV E Vmax 0.56 m/s MV A Vmax 0.8 m/s MV E/A 0.7 MV E/E' lateral 9.3 MV E' lateral 0.06 m/s Tricuspid Valve Label Value Normal Value RA Pressure 8 mmHg RVSP 49 mmHg TR Vmax 3.22 m/s Aorta Label Value Normal Value AoRoot, 2D 2.9 cm (1.4cm - 3.8cm) Great Vessels Label Value Normal Value IVC 1.3 cm (1.2cm - 2.3cm) Valvular Assessment LVOT 0.7 - 1.1 m/sec Aortic Valve 1.0 - 1.7 m/sec Mitral Valve 0.6 - 1.3 m/sec Tricuspid Valve 0.3 - 0.7 m/sec Pulmonic Valve 0.6 - 0.9 m/sec Regurgitation Trivial ModSev Mod-Sev No Max Velocity 0.71 m/sec 1.20 m/s 0.56 m/sec 1.40 m/s Max Gradient 6.00 mmHg 8.00 mmHg Mean Gradient 3.00 mmHg Valve Area 1.9 cm?? Findings Left Ventricle: The left ventricle is normal size. Global left ventricular systolic function is normal. The EF is 55 % visually. Left ventricular wall thickness is normal. No regional wall motion abnormality. Right Ventricle: The right ventricle is enlarged. Normal right ventricular systolic function. Doppler studies suggest moderately elevated right sided pressures (elevated pulmonary pressure). Left Atrium: The left atrium is severely enlarged. IAS: There is a suggestion of an atrial septal defect. 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 The right atrium is severely enlarged. Mitral Valve: There is nonspecific thickening of the mitral valve leaflet. Moderate to severe mitral regurgitation. Aortic Valve: Focal aortic cusp thickening is noted. Trivial aortic valve regurgitation. Tricuspid Valve: Normal tricuspid valve. Moderate to severe tricuspid regurgitation. Pulmonic Valve: Normal pulmonary valve. No pulmonary regurgitation. Aorta: The aortic root exhibits normal size. Great Vessels: IVC: Normal size and course of the IVC. Pericardium: No pericardial effusion. The Attending Physician has personally reviewed the examination Procedure Staff Reading Group: [facility] Hand Stemmer: Sara Mccarthy RDCS Ordering Physician: DERICK CANO Discharge Planning Expected Discharge Disposition: Home or Self Care () Signed Woody Barriga MD [facility] 06/23/2025 10:00 AM * Tammy Kannan, OT - 06/23/2025 9:45 AM EDT Occupational Therapy Occupational Therapy Evaluation Patient Name: Aleksandr Sanchez : 1940 Today's Date: 06/23/2025 Start Time: 929 Stop Time: 45 Time Calculation (min): 15 min OT Evaluation Time Entry OT Evaluation (Low) Time Entry: 15 General Subjective: I wish I could take a shower Pt pleasant and agreeable to OT/PT eval, OK per RN. Pt in bed at start and end of session with transport taking her for heart cath. Patient Summary: Patient is a 84 y/o female who presents 06/21/25 from OSH with chest pain and SOB.Elevated troponins, NSTEMI, R BBB. OT Diagnosis: impaired ADL status 2/2 chest pain Problem List[1] Medical History[2] Surgical History[3] Precautions Precautions Medical Precautions: telemetry, IV, fall risk Pain Pain Assessment Pain Assessment: No/denies pain Pain Score: 0 - No pain Cognition Cognition Overall Cognitive Status: Within Functional Limits Arousal/Alertness: Appropriate responses to stimuli Orientation Level: Oriented X4 Following Commands: Follows all commands and directions without difficulty Safety Judgment: Good awareness of safety precautions Awareness of Errors: Good awareness of errors made Deficits: Fully aware of deficits Attention Span: Appears intact Memory: Appears intact Problem Solving: Assistance required to identify errors made, Assistance required to generate solutions Communication: Intact General Assessment General Assessment Hearing: Mild [place] Skin Integrity: all visible skin intact Hand Dominance: Left Home Living Home Living Type of Home: House Lives With: Family (grandson and his , work opposite shifts) Home Adaptive Equipment: Oxygen (1L o2) Home Layout: One level Home Access: Stairs to enter with rails Entrance Stairs-Rails: Right Entrance Stairs-Number of Steps: 4 Bathroom Shower/Tub: Tub/shower unit Bathroom Toilet: Handicapped height Bathroom Equipment: None Prior Level of Function Prior Function Level of Hunt: Independent with ADLs and functional transfers, Independent with homemaking with ambulation Prior Functional Mobility: Independent without device Receives Help From: Family ADL Assistance: Independent Homemaking Assistance: Independent Vocational: Retired Static Sitting Balance Static Sitting Balance Static Sitting-Balance Support: Feet supported Static Sitting-Level of Assistance: Independent Static Sitting-Comment/Number of Minutes: sitting EOB and on toilet Dynamic Sitting Balance Dynamic Sitting Balance Dynamic Sitting-Balance Support: Feet supported, Left upper extremity supported, Right upper extremity supported Dynamic Sitting-Balance: Lateral lean, Forward lean Dynamic Sitting Balance-Level of Assistance: Close supervision Dynamic Sitting-Comments: performing hygiene on toilet Static Standing Balance Static Standing Balance Static Standing-Balance Support: No upper extremity supported Static Standing-Level of Assistance: Close supervision Dynamic Standing Balance Dynamic Standing Balance Dynamic Standing-Balance Support: Right upper extremity supported (RUE on IV pole for management and mild external support) Dynamic Standing Balance-Level of Assistance: Contact guard ADL ADL Eating Assistance: Independent Grooming Assistance: Modified independent (Device) (washing face with bathing wipe at bed level) Bathing Assistance: Stand by UE Dressing Assistance: Stand by LE Dressing Assistance: Stand by Toileting Assistance with Device: Stand by (toileting in room on standard toilet. Able to perform clothing management in standing without UE support and hygiene in sitting) Bed Mobility Bed Mobility Bed Mobility: Yes Bed Mobility 1 Bed Mobility From 1: Supine Bed Mobility Type 1: To and from Bed Mobility to 1: Short sit Level of Assistance 1: Independent Bed Mobility Comments 1: HOB elevated ~30 degrees Transfers Transfers Ambulation comments: demo'd functional mobility throughout room. Initially using IV pole for external support with RUE however able to ambulate without external support as well with CGA for safety. Pt demo'ing slow pace with short steps however no LOB noted Transfer: Yes Transfer 1 Transfer From 1: Bed, Sit Transfer Type 1: To and from Transfer to 1: Stand Technique 1: Sit to stand, Stand to sit Transfer Device 1: none Transfer Level of Assistance 1: Close supervision Trials/Comments 1: good hand placement noted Transfers 2 Transfer From 2: Stand Transfer Type 2: To and from Transfer to 2: Sit, Toilet Technique 2: Sit to stand, Stand to sit Transfer Device 2: none Transfer Level of Assistance 2: Close supervision Trials/Comments 2: good hand placement noted Objective General Assessments Activity Tolerance Endurance: Stage III Stage III (METs 2.0-3.0) - Sitting to Standin-20 mins Activity Tolerance Comments: tolerating session well, vitals WNL on RA throughout Vision - Basic Assessment Current Vision: Wears glasses all the time Sensation Light Touch: No apparent deficits Sensation Comments: denies n/t Proprioception Proprioception: No apparent deficits Perception Inattention/Neglect: Appears intact Initiation: Appears intact Motor Planning: Appears intact Perseveration: Not present Coordination Movements are Fluid and Coordinated: Yes Extremity Assessments RUE Assessment RUE Assessment: Within Functional Limits LUE Assessment LUE Assessment: Within Functional Limits RLE Assessment RLE Assessment: Within Functional Limits LLE Assessment LLE Assessment: Within Functional Limits Outcome Assessments AM-PAC 6 Clicks Putting on and taking off regular lower body clothing?: A Little (Min Assist/Contact Guard/Supervision) Bathing(Including washing,rinsing,drying)?: A Little (Min Assist/Contact Guard/Supervision) Toileting, which includes using the toilet,bedpan,or urinal?: A Little (Min Assist/Contact Guard/Supervision) Putting on and taking off regular upper body clothing?: A Little (Min Assist/Contact Guard/Supervision) Taking care of personal grooming such as brushing teeth?: None (Independent) Eating meals?: None (Independent) Total Score OT [facility]: 20 Assessment/Plan OT Assessment OT Impairments: Decreased ADL status, Decreased endurance, Decreased functional mobility, DecreasedIADLs, Decreased trunk control for functional activities OT Assessment/NICHOLAS Summary: Patient would benefit from Skilled OT to address decreased independence with ADLs, safety awareness, balance, and to promote overall function. At this time, Patient would be safety to return to prior living environment with support. Prognosis: Good Evaluation/Treatment Tolerance: Patient tolerated treatment well Medical Staff Made Aware: Yes Strengths: Ability to acquire knowledge, Support of extended family/friends, Living arrangement secure Barriers to Discharge: Comorbidities OT Education/Comments: OT role/purpose, safety awareness, compensatory strategies, OT POC, discharge planning Plan Level of assist: 1 assist Treatment Interventions: ADL retraining, Functional transfer training, UE strengthening/ROM, Endurance training, Patient/family training, Compensatory technique education OT Plan: Skilled OT OT Frequency: 3 times per week OT Discharge Recommendations: Patient is able to return to prior living environment Equipment Recommended: none OT - Discharge Recommendations Placed: Yes OT Goals Multi-Disciplinary Problems (from Occupational Therapy) Active Problems Problem: [facility] Start Date: 06/23/25 Goal Start Date Expected End Date End Date Pt will perform grooming tasks sinkside and Upper body ADLs (UB dressing/bathing) with mod I and with AE/DME and adaptive strategies as needed 06/23/25 07/07/25 -- Goal Start Date Expected End Date End Date Pt will perform Lower body ADLs ( LB dressing/bathing/toileting) with mod I utilizing AE/DME and adaptive strategies as needed 06/23/25 07/07/25 -- Goal Start Date Expected End Date End Date Patient will complete functional transfers and mobility mod I to participate in daily tasks using least restrictive device. 06/23/25 07/07/25 -- Goal Start Date Expected End Date End Date Pt will demo increased activity tolerance by participating in 15+ minutes of dynamic sitting/standing tasks in least restrictive environment with SUP as needed for safe completion of all functional tasks and functional ambulation/transfers. 06/23/25 07/07/25 -- Goal Start Date Expected End Date End Date Pt will be educated on and demo 2 AE/EC/WS to address impairments in order to promote independence with ADLs, functional tasks and safety with navigation of environment with good understanding and follow through 06/23/25 07/07/25 -- Tammy Brunner OTD, OTR/L [1] Patient Active Problem List Diagnosis Benign essential hypertension Chest pain COPD (chronic obstructive pulmonary disease) ([facility]/HCC) Dyspnea Edema Fainting Former cigarette smoker Hyperlipidemia Paroxysmal supraventricular tachycardia Acute on chronic heart failure with preserved ejection fraction (HFpEF) ([facility]/HCC) Pulmonary HTN ([facility]/HCC) Acute hypoxic respiratory failure ([facility]/HCC) Chronic hypoxic respiratory failure, on home oxygen therapy ([facility]/HCC) NSTEMI (non-ST elevated myocardial infarction) ([facility]/HCC) Chronic diastolic heart failure ([facility]/HCC) [2] Past Medical History: Diagnosis Date CHF (congestive heart failure) ([facility]/HCC) COPD (chronic obstructive pulmonary disease) ([facility]/HCC) Hyperlipidemia Hypertension [3] Past Surgical History: Procedure Laterality Date APPENDECTOMY CARDIAC CATHETERIZATION HYSTERECTOMY * Amber Escobar MD - 06/23/2025 7:19 AM EDT Images from the original note were not included. Cardiology Progress Note Subjective Subjective: Aleksandr Sanchez is a 84 y.o. female with a past medical history significant for SVT, COPD, HFpEF, HLD, pulmonary HTN. Of note, she had previous angina during episode of SVT, for this she underwent previous cardiac catheterization at [facility] on 01/01/2019, which did not show any significant coronary artery disease stenosis. She presented with chest pain to [place]. According to family she had an episode of nausea, chest pain radiating to jaw and left arm, lightheadedness but no syncope on which resolved withina couple hours without treatment and then similar symptoms again yesterday which prompted visit to [place]. EKG showed sinus rhythm with RBBB. Peak troponin 603 now down trending. She was initiated on a heparin gtt and transferred to [facility] for further management of NSTEMI. Cardiology workup: Echo 06/21/2025: EF 55%, no RWMA, RV enlarged, severe LA enlargement, possible ASD, mod-severe MR, mod-severe TR CORS 01/01/2019: negative for CAD Echo 09/01/2023: EF 55-60%, moderate RA dilation moderate MR, moderate/severe TR RVSP consistent withsevere pulmonary hypertension (RVSP 60.8 mmHg) Cors 06/23/2025: Nonobstructive CAD RHC 06/23/2025: Unremarkable Cardiac meds: Aspirin 81, pravastatin 40 Lisinopril 2.5, Lopressor 50 twice daily Torsemide 10 twice daily Interval History I saw and examined the patient at bedside this morning. She was hemodynamically stable in no acute distress, satting well on 1 L nasal cannula. Pulse stable around 70, blood pressure normotensive at 120/60. Currently has no complaints and denies chest pain, shortness of breath, palpitations. Objective: Patient Vitals for the past 24 hrs: BP Temp Temp src Pulse Resp SpO2 Weight 06/23/25 0557 -- -- -- -- -- -- 42.1 kg (92 lb 12.8 oz) 06/23/25 0442 113/52 -- -- 65 23 96 % -- 06/23/255 119/57 36.2 ??C (97.2 ??F) Temporal 79 22 100 % -- 10/26/25 1955 119/57 36.4 ??C (97.5 ??F) Temporal 84 23 97 % -- 06/22/25 1600 114/53 36.4 ??C (97.6 ??F) Temporal 82 19 97 % -- 06/22/25 1208 94/50 36.6 ??C (97.8 ??F) Temporal 72 21 97 % -- 06/22/25 0938 104/56 -- -- 87 22 95 % -- 06/22/25 0935 -- -- -- -- -- 95 % -- 06/22/25 0737 123/59 36.1 ??C (97 ??F) Temporal 77 20 94 % -- Physical Examination: GENERAL: AOx3, in no acute distress. frail NECK: No JVD present. CARDIAC: RRR. No murmur, rubs, or gallops. RESPIRATORY: CTAB, no increased effort of breathing. ABDOMEN: Soft, nontender, nondistended. EXTREMITIES: +1 lower extremity edema, peripheral pulses are 2+ bilaterally. Relevant Lab Results Encounter Date: 06/21/25 ECG 12 lead Result Value Ventricular Rate 78 Atrial Rate 78 CO Interval 126 QRS DURATION 134 QT Interval 418 QTC CALCULATION(BAZETT) 476 P Kinsman 61 R-Kinsman 88 T Wave Kinsman 25 Impression Sinus rhythm with Premature atrial complexes Possible Left atrial enlargement Right bundle branch block Abnormal ECG No previous ECGs available Confirmed by Bautista Knox ([id number]) on 06/21/2025 1:20:56 PM No results found for: CKTOTAL , CKMB , CKMBINDEX , TROPONINI Complete Echo (TTE) w/wo Imaging Agent, Strain, 3D, Bubble Study Result Date: 06/22/2025 1 [facility] Heart Station [address] [place] [address] [phone] (fax) Echocardiogram-[facility] Name: ALEKSANDR SANCHEZ Study Date: 06/21/2025 10:38 AM B/P: 150 mmHg/67 mmHg HR: Date of : 1940 Location: [facility] Height: 60 in. Age: 84 year(s) Patient Room: [facility] Weight: 94 lb. Gender: Female Patient Status: InPt BSA: 1.35 m2 Indication: Dyspnea Examination: Echocardiogram (Complete) Image Quality: Fair Patient Consent: Procedure explained to patient Conclusions Left Ventricle: The left ventricle is normal size. Global left ventricular systolic function is normal. The EF is 55 % visually. Left ventricularwall thickness is normal. No regional wall motion abnormality. Right Ventricle: The right ventricleis enlarged. Normal right ventricular systolic function. Doppler studies suggest moderately elevated right sided pressures (elevated pulmonary pressure). Left Atrium: The left atrium is severely enlar ged. IAS: There is a suggestion of an atrial septal defect. 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 Mitral Valve: Moderate to severe mitral regurgitation. Tricuspid Valve: Normal tricuspid valve. Moderate to severe tricuspid regurgitation. Overall Conclusions: A transesophageal echocardiogram is recommended for better assessment. Measurements Left Ventricle Label Value Normal Value LVOTd2 cm (18cm - 20cm) LVOT VTI 13 cm (18cm - 22cm) LVOT PGmax 2 mmHg LVEF visual 55 % LVDd, 2D 4.62 cm(3.9cm - 5.3cm) LVDs, 2D 3.15 cm (2.1cm - 4cm) IVSd, 2D 0.74 cm (0.6cm - 1.1cm) LVPWd, 2D 0.99 cm (0.6cm - 0.9cm) LV Mass, 2D ASE 131.59 g LV Mass Index, 2D ASE 97.5 g/m?? (44g/m?? - 88.4g/m??) RWT, MM 0.43 (0 - 0.42) LVSVI, 2D 43.7 ml/m2 LVOT PGmean 1 mmHg LVSV_LVOT 41 ml Right Ventricle Label Value Normal Value RVDd, 2D 3.75 cm (1.9cm - 3.8cm) TAPSE 2.11 cm Left Atrium Label Value Normal Value LA Volume, BP 57 ml (22ml - 52ml) LADs, 2D 3.2 cm (2.7cm - 3.8cm) LAESV index, BP 42.2 ml/m?? Right Atrium Label Value Normal Value RA Area 16.2 cm?? Aortic Valve Label Value Normal Value AV DVI 0.59 AV VTI 22.1 cm Mitral Valve Label Value Normal Value MV E Vmax 0.56 m/s MV A Vmax 0.8 m/s MV E/A 0.7MV E/E' lateral 9.3 MV E' lateral 0.06 m/s Tricuspid Valve Label Value Normal Value RA Pressure 8 mmHg RVSP 49 mmHg TR Vmax 3.22 m/s Aorta Label Value Normal Value AoRoot, 2D 2.9 cm (1.4cm - 3.8cm) Great Vessels Label Value Normal Value IVC 1.3 cm (1.2cm - 2.3cm) Valvular Assessment LVOT 0.7 - 1.1 m/sec Aortic Valve 1.0 - 1.7 m/sec Mitral Valve 0.6 - 1.3 m/sec Tricuspid Valve 0.3 - 0.7 m/sec Pulmonic Valve 0.6 - 0.9 m/sec Regurgitation Trivial ModSev Mod-Sev No Max Velocity 0.71 m/sec 1.20 m/s 0.56 m/sec 1.40 m/s Max Gradient 6.00 mmHg 8.00 mmHg Mean Gradient 3.00 mmHg Valve Area 1.9 cm?? Find ings Left Ventricle: The left ventricle is normal size. Global left ventricular systolic function is normal. The EF is 55 % visually. Left ventricular wall thickness is normal. No regional wall motion abnormality. Right Ventricle: The right ventricle is enlarged. Normal right ventricular systolic function. Doppler studies suggest moderately elevated right sided pressures (elevated pulmonary pressure). Left Atrium: The left atrium is severely enlarged. IAS: There is a suggestion of an atrial septal defect. 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 The right atrium is severely enlarged. Mitral Valve: There is nonspecific thickening of the mitral valve leaflet. Moderate to severe mitral regurgitation. Aortic Valve: Focal aortic cusp thickening is noted. Trivial aortic valve regurgitation. Tricuspid Valve: Normal tricuspid valve. Moderate to severe tricuspid regurgitation. Pulmonic Valve: Normal pulmonary valve. No pulmonary regurgitation. Aorta: The aortic root exhibits normal size. Great Vessels: IVC: Normal size and course of the IVC. Pericardium: No pericardial effusion. The Attending Physician has personally reviewed the examination Procedure Staff Reading Group: [facility] Hand Stemmer: Sara Mccarthy RDCS Ordering Physician: DERICK CANO No nuclear medicine results found for the past 12 months Relevant Imaging Results Complete Echo (TTE) w/wo Imaging Agent, Strain, 3D, Bubble Study 1 1 [facility] Heart Station [address] [place] [address] [phone] (fax) Echocardiogram-[facility] Name: ALEKSANDR SANCHEZ Study Date: 06/21/2025 10:38 AM B/P: 150 mmHg/67 mmHg HR: Date of : 1940 Location: [facility] Height: 60 in. Age: 84 year(s) Patient Room: 3161 Weight: 94 lb. Gender: Female Patient Status: InPt BSA: 1.35 m2 Indication: Dyspnea Examination: Echocardiogram (Complete) Image Quality: Fair Patient Consent: Procedure explained to patient Conclusions Left Ventricle: The left ventricle is normal size. Global left ventricular systolic function is normal. The EF is 55 % visually. Left ventricular wall thickness is normal. No regional wall motion abnormality. Right Ventricle: The right ventricle is enlarged. Normal right ventricular systolic function. Doppler studies suggest moderately elevated right sided pressures (elevated pulmonary pressure). Left Atrium: The left atrium is severely enlarged. IAS: There is a suggestion of an atrial septal defect. 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 Mitral Valve: Moderate to severe mitral regurgitation. Tricuspid Valve: Normal tricuspid valve. Moderate to severe tricuspid regurgitation. Overall Conclusions: A transesophageal echocardiogram is recommended for better assessment. Measurements Left Ventricle Label Value Normal Value LVOTd 2 cm (18cm - 20cm) LVOT VTI 13 cm (18cm - 22cm) LVOT PGmax 2 mmHg LVEF visual 55 % LVDd, 2D 4.62 cm (3.9cm - 5.3cm) LVDs, 2D 3.15 cm (2.1cm - 4cm) IVSd, 2D 0.74 cm (0.6cm - 1.1cm) LVPWd, 2D 0.99 cm (0.6cm - 0.9cm) LV Mass, 2D ASE 131.59 g LV Mass Index, 2D ASE 97.5 g/m?? (44g/m?? - 88.4g/m??) RWT, MM 0.43 (0 - 0.42) LVSVI, 2D 43.7 ml/m2 LVOT PGmean 1 mmHg LVSV_LVOT 41 ml Right Ventricle Label Value Normal Value RVDd, 2D 3.75 cm (1.9cm - 3.8cm) TAPSE 2.11 cm Left Atrium Label Value Normal Value LA Volume, BP 57 ml (22ml - 52ml) LADs, 2D 3.2 cm (2.7cm - 3.8cm) LAESV index, BP 42.2 ml/m?? Right Atrium Label Value Normal Value RA Area 16.2 cm?? Aortic Valve Label Value Normal Value AV DVI 0.59 AV VTI 22.1 cm Mitral Valve Label Value Normal Value MV E Vmax 0.56 m/s MV A Vmax 0.8 m/s MV E/A 0.7 MV E/E' lateral 9.3 MV E' lateral 0.06 m/s Tricuspid Valve Label Value Normal Value RA Pressure 8 mmHg RVSP 49 mmHg TR Vmax 3.22 m/s Aorta Label Value Normal Value AoRoot, 2D 2.9 cm (1.4cm - 3.8cm) Great Vessels Label Value Normal Value IVC 1.3 cm (1.2cm - 2.3cm) Valvular Assessment LVOT 0.7 - 1.1 m/sec Aortic Valve 1.0 - 1.7 m/sec Mitral Valve 0.6 - 1.3 m/sec Tricuspid Valve 0.3 - 0.7 m/sec Pulmonic Valve 0.6 - 0.9 m/sec Regurgitation Trivial ModSev Mod-Sev No Max Velocity 0.71 m/sec 1.20 m/s 0.56 m/sec 1.40 m/s Max Gradient 6.00 mmHg 8.00 mmHg Mean Gradient 3.00 mmHg Valve Area 1.9 cm?? Findings Left Ventricle: The left ventricle is normal size. Global left ventricular systolic function is normal. The EF is 55 % visually. Left ventricular wall thickness is normal. No regional wall motion abnormality. Right Ventricle: The right ventricle is enlarged. Normal right ventricular systolic function. Doppler studies suggest moderately elevated right sided pressures (elevated pulmonary pressure). Left Atrium: The left atrium is severely enlarged. IAS: There is a suggestion of an atrial septal defect. 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 The right atrium is severely enlarged. Mitral Valve: There is nonspecific thickening of the mitral valve leaflet. Moderate to severe mitral regurgitation. Aortic Valve: Focal aortic cusp thickening is noted. Trivial aortic valve regurgitation. Tricuspid Valve: Normal tricuspid valve. Moderate to severe tricuspid regurgitation. Pulmonic Valve: Normal pulmonary valve. No pulmonary regurgitation. Aorta: The aortic root exhibits normal size. Great Vessels: IVC: Normal size and course of the IVC. Pericardium: No pericardial effusion. The Attending Physician has personally reviewed the examination Procedure Staff Reading Group: [facility] Hand Stemmer: Sara Mccarthy RDCS Ordering Physician: DERICK CANO Assessment: NSTEMI, with peak troponin 603, downtrending, no ischemic EKG changes Troponin downtrending 227 > 168>124>94 RHC/Cors 06/23/2025 with nonobstructive CAD involving LAD, RCA, LCX (20-30%) and unremarkable RHC Last cath in 2018 negative for signficant CAD HFpEF last echo in February 2025 EF 55-60%, NYHA IV. BNP 539 Pulmonary HTN Paroxysmal SVT HTN, currently borderline BP Plan: RHC/Cors 06/23/2025 largely unremarkable with nonobstructive CAD (20-30% of LAD, RCA, Lcx) and unremarkable RHC Plavix discontinued given nonobstructive CAD 06/22 Echo: EF 55%. RV enlarged with c/f elevated RV pressures. Severe LA enlargement with possibleASD. Mod-sev MR/TR ROMAN ordered for further evaluation - aborted due to patient intolerance - unable to pass probe Upon discharge, recommending decreasing torsemide dosage to 20 mg p.o. daily Continue aspirin, pravastatin, lisinopril and lopressor Replete electrolytes, maintain K>4, Mg>2 Cardiology will continue to follow. Please call with any questions. Amber Escobar MD PGY-2 Internal Medicine Resident [facility] Cosigned by Varinder Cruz MD at 06/23/2025 7:47 PM EDT Associated attestation - Varinder Cruz MD - 06/23/2025 7:47 PM EDT By using the attestations below, I agree that I have read and verify that the documentation has been personally reviewed by me and ensure that the documentation accurately reflects the encounter. GC: I personally saw this patient on the day of the encounter, performed the flores portions of the service and participated in the management and treatment plan of the patient. I reviewed and confirm the documentation by the Resident Dr Amber Escobar. Please note there may be an additional personal documentation from me. Varinder Cruz MD * Woody Barriga MD - 06/22/2025 10:34 AM EDT Images from the original note were not included. Hospital Medicine Daily Progress Note - 06/22/2025 10:34 AM; Room: [address] [place] [address] Admission: 06/21/2025 9:55 AM; Length of stay: 1 days THE HOSPITALIST TEAM PREFERS TO USE [employer] [facility] FOR NON-URGENT COMMUNICATION 7AM- 7PM. IF I DO NOT RESPOND WITHIN 20 MINUTES OR URGENT MATTERS, PLEASE CALL THROUGH THE MAIL RIDER. FROM 7PM-7AM, PLEASE PAGE [phone](COVR). Code Status: DNR CC-A Barriers to Discharge: NSTEMI workup Expected Discharge Date: 1-2 days Discharge Destination: home Overview Patient is seen for evaluation and management of chest pain/NSTEMI. Subjective Seen today in her room, denies any chest pain or shortness of breath. On 1 L nasal cannula Physical Exam Cardiovascular: Rate and Rhythm: Normal rate and regular rhythm. Pulses: Normal pulses. Pulmonary: Effort: Pulmonary effort is normal. No respiratory distress. Breath sounds: Normal breath sounds. No wheezing, rhonchi or rales. Neurological: General: No focal deficit present. Visit Vitals BP 104/56 Pulse 87 Temp 36.1 ??C (97 ??F) (Temporal) Resp 22 Intake/Output Summary (Last 24 hours) at 06/22/2025 1034 Last data filed at 06/22/2025 0900 Gross per 24 hour Intake 672.2 ml Output -- Net 672.2 ml Estimated body mass index is 17.85 kg/m?? as calculated from the following: Height as of this encounter: 1.524 m (5'). Weight as of this encounter: 41.5 kg (91 lb 6.4 oz). Assessment and Plan Assessment & Plan Chest pain NSTEMI (non-ST elevated myocardial infarction) ([facility]) Paroxysmal supraventricular tachycardia - Trops trending down in the last one of - EKG consistent with sinus rhythm right bundle branch block Last cardiac cath 2018 negative for significant coronary artery disease - Continue heparin gtt, plan for echo as well as Lexiscan stress test in a.m. -Continue aspirin, Plavix, pravastatin, lisinopril and Lopressor - Patient is DNRCCA COPD (chronic obstructive pulmonary disease) ([facility]) - Resume home inhalers, patient currently on Dulera and Incruse Ellipta Benign essential hypertension Continue above-mentioned medication Chronic hypoxic respiratory failure, on home oxygen therapy ([facility]) - on 1L home O2. Stable Chronic diastolic heart failure ([facility]) Patient has history of heart failure preserved EF based on echo in March 16 2555 to 60%, NYHA class IV Patient seems well compensated Continue for now lisinopril and Lopressor VTE Prophylaxis: IV heparin Scheduled Meds aspirin, 81 mg, oral, Daily brimonidine, 1 drop, Both Eyes, BID And timolol, 1 drop, Both Eyes, BID clonazePAM, 0.5 mg, oral, Nightly clopidogrel, 75 mg, oral, Daily fluticasone, 2 spray, Each Nostril, BID latanoprost, 1 drop, Both Eyes, Nightly lisinopril, 2.5 mg, oral, Daily metoprolol tartrate, 50 mg, oral, BID mometasone-formoterol, 2 puff, inhalation, BID And umeclidinium, 1 puff, inhalation, Daily Oxygen Therapy, , inhalation, Continuous pantoprazole, 40 mg, oral, Daily pravastatin, 40 mg, oral, Nightly heparin, 0-28 Units/kg/hr, Last Rate: 17 Units/kg/hr (06/21/25 2250) Pertinent Investigations Hematology: Results from last 7 days Lab Units 10/26/25 0501 06/21/25 1015 WBC AUTO 10*3/uL 10.54 11.80* HEMOGLOBIN g/dL 11.6* 12.8 HEMATOCRIT % 35.3* 39.0 MCV fL 94.1 93.5 PLATELETS AUTO 10*3/uL 271 310 Chemistry: Results from last 7 days Lab Units 06/22/25 0501 06/21/25 1015 SODIUM mmol/L 141 141 POTASSIUM mmol/L 3.7 3.8 CHLORIDE mmol/L 107 103 CO2 mmol/L 29 29 BUN mg/dL 21 38* CREATININE mg/dL 0.72 0.99 GLUCOSE mg/dL 87 96 MAGNESIUM mg/dL -- 2.1 CALCIUM mg/dL 9.3 9.5 No lab exists for component: AFIO2 , APHT , APCOT , APOT , ATCO2 , CK , ALB , IBILI Historical Values: (Includes values prior to this admission) No results found for: PREALBUMIN , TSH , T3FREE , FREET4 , CORTISOL , FEV1 , IEX4HTN , DLCO , RVSP , HDL , LDL No results found for: FBBFVYNX47 , IRON , TIBC , C3 , C4 , TIMOTHY , CANCA , ASO , PSA , CEA , CA125 , CA199 , AFP , CA153 Imaging ECG 12 lead Sinus rhythm with Premature atrial complexes Possible Left atrial enlargement Right bundle branch block Abnormal ECG No previous ECGs available Confirmed by Bautista Knox ([id number]) on 06/21/2025 1:20:56 PM XR chest 1 view Narrative: XR CHEST 1 VIEW 06/21/2025 10:17 AM CLINICAL INDICATIONS: Shortness of breath COMPARISON: None FINDINGS: Cardiac silhouette and pulmonary vessels are within normal limits. No pneumothorax. No infiltrate or pleural effusion. Impression: No acute pulmonary process. Electronically signed: Blayne Dwyer. Discharge Planning Signed Woody Barriga MD Hospital Medicine 06/22/2025 10:34 AM * Amber Escobar MD - 06/22/2025 9:47 AM EDT Images from the original note were not included. Cardiology Progress Note Subjective Subjective: Aleksandr Sanchez is a 84 y.o. female with a past medical history significant for SVT, COPD, HFpEF, HLD, pulmonary HTN. Patient presented with chest pain to [place]. According to family she had anepisode of nausea, chest pain radiating to jaw and left arm, lightheadedness but no syncope on which resolved within a couple hours without treatment and then similar symptoms again yesterday which prompted visit to [place]. EKG showed sinus rhythm with RBBB. Peak troponin 603 now down trending. She was initiated on a heparin gtt and transferred to [facility] for further management of NSTEMI. Interval History I saw and examined the patient at bedside this morning. She was hemodynamic stable, no acute distress, satting well on 1 L nasal cannula, no complaints. Denies chest pain, shortness of breath, nausea, vomiting. Currently in sinus rhythm at 77 bpm Objective: Patient Vitals for the past 24 hrs: BP Temp Temp src Pulse Resp SpO2 Height Weight 06/22/25 0935 -- -- -- -- -- 95 % -- -- 06/22/25 0737 123/59 36.1 ??C (97 ??F) Temporal 77 20 94 % -- -- 06/22/25 0542 -- -- -- -- -- -- -- 41.5 kg (91 lb 6.4 oz) 06/22/25 0410 119/60 36.7 ??C (98.1 ??F) -- 80 17 95 % -- -- 06/21/25 2333 109/52 36.7 ??C (98.1 ??F) -- 79 24 96 % -- -- 06/21/25 2042 130/52 36.8 ??C (98.2 ??F) Temporal 94 19 96 % -- -- 06/21/25 1606 134/60 36.4 ??C (97.6 ??F) Temporal 80 20 98 % -- -- 06/21/25 1136 164/69 36.6 ??C (97.8 ??F) Temporal 87 16 100 % -- -- 06/21/25 1042 -- -- -- -- -- -- 1.524 m (5') 42.3 kg (93 lb 3.2 oz) 06/21/25 1031 150/67 36.8 ??C (98.2 ??F) Temporal 93 20 91 % -- -- 06/21/25 1015 -- -- -- -- -- 98 % -- -- Physical Examination: GENERAL: AOx3, in no acute distress. frail NECK: No JVD present. CARDIAC: RRR. No murmur, rubs, or gallops. RESPIRATORY: CTAB, no increased effort of breathing. ABDOMEN: Soft, nontender, nondistended. EXTREMITIES: +1 lower extremity edema, peripheral pulses are 2+ bilaterally. Relevant Lab Results Encounter Date: 06/21/25 ECG 12 lead Result Value Ventricular Rate 78 Atrial Rate 78 CO Interval 126 QRS DURATION 134 QT Interval 418 QTC CALCULATION(BAZETT) 476 P Kinsman 61 R-Kinsman 88 T Wave Kinsman 25 Impression Sinus rhythm with Premature atrial complexes Possible Left atrial enlargement Right bundle branch block Abnormal ECG No previous ECGs available Confirmed by Bautista Knox ([id number]) on 06/21/2025 1:20:56 PM No results found for: CKTOTAL , CKMB , CKMBINDEX , TROPONINI No echocardiogram results found for the past 12 months No nuclear medicine results found for the past 12 months Relevant Imaging Results ECG 12 lead Sinus rhythm with Premature atrial complexes Possible Left atrial enlargement Right bundle branch block Abnormal ECG No previous ECGs available Confirmed by Bautista Knox ([id number]) on 06/21/2025 1:20:56 PM XR chest 1 view Narrative: XR CHEST 1 VIEW 06/21/2025 10:17 AM CLINICAL INDICATIONS: Shortness of breath COMPARISON: None FINDINGS: Cardiac silhouette and pulmonary vessels are within normal limits. No pneumothorax. No infiltrate or pleural effusion. Impression: No acute pulmonary process. Electronically signed: Blayne Dwyer. Assessment: NSTEMI, with peak troponin 603, downtrending, no ischemic EKG changes Last cath in 2018 negative for signficant CAD HFpEF last echo in February 2025 EF 55-60%, NYHA IV. BNP 539 Pulmonary HTN Paroxysmal SVT HTN, currently borderline BP Plan: Troponin downtrending 227 > 168>124>94 Echocardiogram completed - read pending Continue heparin gtt Plan for lexiscan 06/23 Continue aspirin, plavix, pravastatin, lisinopril and lopressor Replete electrolytes, maintain K>4, Mg>2 Cardiology will continue to follow. Please call with any questions. Amebr Escobar MD PGY-2 Internal Medicine Resident [facility] Cosigned by Bautista Knox MD at 06/23/2025 11:21 AM EDT Associated attestation - Bautista Knox MD - 06/23/2025 11:21 AM EDT By using the attestations below, the signing clinician agrees that I have read and verify that thedocumentation has been personally reviewed by me and ensure that the documentation accurately reflects the encounter. GC: I performed the flores portion(s) of the service and participated in the management and confirm the resident's documentation. Please note there may be an additional personal documentation from me. * Burton Mejias MD - 06/21/2025 11:23 AM EDT Case was discussed with the MELBA on 06/21/2025. I personally saw the patient, reviewed the MELBA's history, exam, and medical decision-making (MDM). I agree with the assessment and plan unless otherwisenoted below. The MELBA performed the substantive portion of the visit. Physical Exam: Visit Vitals BP 104/56 Pulse 87 Temp 36.1 ??C (97 ??F) (Temporal) Resp 22 Cardiology: Normal rate, regular rhythm. Lungs: Clear to auscultation, no wheezes, rales or rhonchi, symmetric air entry. Abdomen: Soft, non tender, non distended. Assessment/Plan: NSTEMI (Non-ST Elevation Myocardial Infarction) (CMS/HCC) Paroxysmal Supraventricular Tachycardia Troponin levels are trending downward, most recent value 94. EKG shows sinus rhythm with right bundle branch block. Previous cardiac catheterization in 2019 revealed no significant coronary artery disease. Continue heparin infusion; plan for echocardiogram and Lexiscan stress test in the morning. Continue current medications: aspirin, Plavix, pravastatin, lisinopril, and Lopressor. Patient remains DNR-CCA. Etiology may be related to tachycardia; cardiology has been consulted. Burton Mejias MD documented in this encounter H&P Notes * Roxanne Ayala MD - 06/23/2025 10:26 AM EDT Aleksandr Sanchez is a 84 y.o. female with a past medical history significant for SVT, COPD, HFpEF, HLD, pulmonary HTN presents for a scheduled ischemic evaluation for NSTEMI and RHC for further evaluation of HFpEF/ pulmonary HTN to guide treatment. Risks and benefits have been discussed at bedside and patient consents to the aforementioned procedures. H&P reviewed. The patient was examined and there are no changes to the H&P. Cosigned by Nestor Beyer MD at 06/23/2025 10:37 AM EDT Source Note - Jennifer Marroquin CNP - 06/05/2025 10:20 AM EDT Images from the original note were not included. Cardiovascular Medicine [facility] SUBJECTIVE Chief Complaint Patient presents with Follow-up [...] follow-up after her recent admission to [facility]. PMHx: SVT, COPD, HFpEF, pulmonary HTN, [...] edema, dizziness/LH, palpitations *She previous saw a summer law associate at [facility]. She would like to transfer her care to [place] [facility]. Discharge summary: Hospital Course: Patient admitted [...] see if supplemental O2 will be a skilled nursing thing. Denies c/o CP, orthopnea, PND, LE edema, dizziness/LH, palpitations, syncope. Problem List[1] Medical History[2] Family History[3] Social History[4] Allergies[5] OBJECTIVE Visit Vitals BP 105/65 (BP Location: Right arm, Patient Position: Sitting) Pulse 87 Ht 1.524 m (5') Wt 42.6 kg (94 lb) SpO2 91% Comment: without o2 on BMI 18.36 kg/m?? Smoking Status Former BSA 1.34 m?? Medications: Current Outpatient Medications: albuterol 2.5 [...] daily, Disp: 180 tablet, Rfl: 3 potassium chloride CR (Klor-Con) 10 mEq ER tablet, Take 20 mEq by mouth in the morning. (Patient not taking: Reported on 06/05/2025), Disp: , Rfl: predniSONE (Deltasone) 10 mg tablet, Take 10 mg by mouth in the morning. (Patient not taking: Reported on 06/05/2025), Disp: , Rfl: Physical Exam Vitals reviewed. Constitutional: Appearance: Normal [...] Diagnoses and all orders for this visit: Chronic diastolic heart failure (CMS/HCC) Pulmonary hypertension (CMS/HCC) Atrial tachycardia, multifocal Paroxysmal supraventricular tachycardia Mixed hyperlipidemia Benign hypertensive heart disease with heart failure (CMS/HCC) #Chronic diastolic heart failure #Pulmonary HTN -ECHO 01/27/25 noted preserved LVEF, RVSP 54 -ECHO 03/13/2025: EF 55%, RVSP 54, evidence of fluid overload -Today her breathing is stable. -She appears compensated -Continue alternating torsemide 20mg/10mg every other day. -Discussed importance of 2L daily fluid allowance, low Na+ diet, and continuing daily weights - sheis to let us know if she notices weight gain. She states understanding. -She remains on supplemental O2. Recommended follow-up with pulmonary or Dr. Montejo for management ofO2. #HTN -Controlled, continue lopressor and lisinopril #Hx SVT #Atrial tachycardia -Noted to have frequent PACs during recent admission likely pulmonary issues contributing to this. -Episodes of long RP tachycardia (sinus tach vs AT) seen on recent holter. -She saw EP, pt may have multifocal atrial tachycardia. Monitor for possible a.fib in the future. -Continue metoprolol to 50mg BID. #HLD -On pravastatin Follow up in about 4 months (around 10/06/2025). Jennifer Marroquin CNP [facility] [1] [...] Allergies Allergen Reactions Codeine Nausea Only * Jerri Knight MD - 06/23/2025 10:17 AM EDT H&P reviewed. The patient was examined and there are no changes to the H&P. We will proceed with ROMAN for further assessment of valvular disease. Risks and benefits of procedure discussed with patient in detail, all questions were answered, patient is agreeable and wishes to proceed. Jerri Knight MD PGY-5 tail worker [facility] Cosigned by Xochitl Maradiaga MD at 06/28/2025 2:24 PM EDT Associated attestation - Xochitl Maradiaga MD - 06/28/2025 2:24 PM EDT By using the attestations below, the signing clinician agrees that I have read and verify that thedocumentation has been personally reviewed by me and ensure that the documentation accurately reflects the encounter. GC: I personally saw this patient on the day of the encounter with Dr. Knight, performed the flores portion(s) of the service and participated in the management and confirm the resident's documentation. Please note there may be an additional personal documentation from me. Source Note - Abe Sun MD - 06/21/2025 1:46 PM EDT Images from the original note were not included. Cardiology Consult Note Reason for Consult: chest pain HPI: Aleksandr Sanchez is a 84 y.o. female with a past medical history significant for SVT, COPD, HFpEF, HLD, pulmonary HTN. Patient presented with chest pain to [place]. According to family she had anepisode of nausea, chest pain radiating to jaw and left arm, lightheadedness but no syncope on which resolved within a couple hours without treatment and then similar symptoms again yesterday which prompted visit to [place]. EKG showed sinus rhythm with RBBB. Peak troponin 603 now down trending. She was initiated on a heparin gtt and transferred to [facility] for further management of NSTEMI. Cardiology ROS: Negative except as mentioned. Past Medical History She has a past medical history of CHF (congestive heart failure) ([facility]), COPD (chronic obstructive pulmonary disease) ([facility]), Hyperlipidemia, and Hypertension. Surgical History She has a past surgical history that includes Appendectomy; Hysterectomy; and Cardiac catheterization. Social History She reports that she has quit smoking. Her smoking use included cigarettes. She has been exposed totobacco smoke. She has never used smokeless tobacco. She reports current alcohol use. She reports that she does not use drugs. Family History Family History[1] Allergies Codeine Medications Current Outpatient Medications Medication Instructions albuterol 2.5 mg, 3 times daily aspirin 81 mg, Daily RT brimonidine-timoloL (Combigan) 0.2-0.5 % ophthalmic solution 2 times daily RT CALCIUM CARBONATE-VITAMIN D3 ORAL 1 tablet, Daily RT clonazePAM (KLONOPIN) 0.5 mg, Daily esomeprazole (NexIUM) [address] capsule Daily fluticasone (Flonase) 50 mcg/actuation nasal spray 2 sprays, 2 times daily chwmefetzxm-bkccupctc-lvpwyvlc 100-62.5-25 mcg blister with device Daily latanoprost (Xalatan) 0.005 % ophthalmic solution Daily at bedtime lisinopril 2.5 mg, Daily RT metoprolol tartrate (LOPRESSOR) 50 mg, oral, 2 times daily potassium chloride CR (Klor-Con) 10 mEq ER tablet 20 mEq, Daily RT pravastatin (PRAVACHOL) 40 mg, Nightly predniSONE (DELTASONE) 10 mg, Daily torsemide (DEMADEX) 20 mg, oral, Daily, Increase torsemide to 20mg daily x7 days then alternate days of 10mg and 20mg daily Prescriptions Prior to Admission[2] Current Medications[3] Last Recorded Vitals Patient Vitals for the past 24 hrs: BP Temp Temp src Pulse Resp SpO2 Height Weight 06/21/25 1136 164/69 36.6 ??C (97.8 ??F) Temporal 87 16 100 % -- -- 06/21/25 1042 -- -- -- -- -- -- 1.524 m (5') 42.3 kg (93 lb 3.2 oz) 06/21/25 1031 150/67 36.8 ??C (98.2 ??F) Temporal 93 20 91 % -- -- 06/21/25 1015 -- -- -- -- -- 98 % -- -- Physical Examination: GENERAL: AOx3, in no acute distress. frail NECK: No JVD present. CARDIAC: RRR. No murmur, rubs, or gallops. RESPIRATORY: CTAB, no increased effort of breathing. ABDOMEN: Soft, nontender, nondistended. EXTREMITIES: +1 lower extremity edema, peripheral pulses are 2+ bilaterally. Relevant Lab Results Encounter Date: 06/21/25 ECG 12 lead Result Value Ventricular Rate 78 Atrial Rate 78 CO Interval 126 QRS DURATION 134 QT Interval 418 QTC CALCULATION(BAZETT) 476 P Kinsman 61 R-Kinsman 88 T Wave Kinsman 25 Impression Sinus rhythm with Premature atrial complexes Possible Left atrial enlargement Right bundle branch block Abnormal ECG No previous ECGs available Confirmed by Bautista Knox ([id number]) on 06/21/2025 1:20:56 PM No results found for: CKTOTAL , CKMB , CKMBINDEX , TROPONINI No echocardiogram results found for the past 12 months No nuclear medicine results found for the past 12 months Relevant Imaging Results ECG 12 lead Sinus rhythm with Premature atrial complexes Possible Left atrial enlargement Right bundle branch block Abnormal ECG No previous ECGs available Confirmed by Bautista Knox ([id number]) on 06/21/2025 1:20:56 PM XR chest 1 view Narrative: XR CHEST 1 VIEW 06/21/2025 10:17 AM CLINICAL INDICATIONS: Shortness of breath COMPARISON: None FINDINGS: Cardiac silhouette and pulmonary vessels are within normal limits. No pneumothorax. No infiltrate or pleural effusion. Impression: No acute pulmonary process. Electronically signed: Blayne Dwyer. Assessment: NSTEMI, with peak troponin 603, downtrending, no ischemic EKG changes Last cath in 2018 negative for signficant CAD HFpEF last echo in February 2025 EF 55-60%, NYHA IV. BNP 539 Pulmonary HTN Paroxysmal SVT HTN, currently borderline BP Plan: Trend troponin x1 Obtain echocardiogram Continue heparin gtt Plan for lexiscan 06/23 Continue aspirin, plavix, pravastatin, lisinopril and lopressor Replete electrolytes, maintain K>4, Mg>2 Rest of medical management per primary team Cardiology will continue to follow along Abe Sun MD Huller Operator, PGY-[address] [facility] 06/21/25 1:46 PM [1] No family history on file. [2] Medications Prior to Admission Medication Sig Dispense Refill Last Dose/Taking aspirin 81 mg EC tablet Take 81 mg by mouth in the morning. 06/20/2025 brimonidine-timoloL (Combigan) 0.2-0.5 % ophthalmic solution in the morning and at bedtime. 06/20/2025 CALCIUM CARBONATE-VITAMIN D3 ORAL Take 1 tablet by mouth in the morning. 06/20/2025 clonazePAM (KlonoPIN) 0.5 mg tablet Take 0.5 mg by mouth in the morning. 06/20/2025 esomeprazole (NexIUM) [address] capsule in the morning. 06/20/2025 fluticasone (Flonase) 50 mcg/actuation nasal spray Administer 2 sprays into each nostril two times daily. 06/20/2025 vpfyvzckows-mbirjylwn-hlydouwo 100-62.5-25 mcg blister with device in the morning. 06/20/2025 latanoprost (Xalatan) 0.005 % ophthalmic solution Daily at bedtime 06/20/2025 lisinopril 2.5 mg tablet Take 2.5 mg by mouth in the morning. 06/20/2025 metoprolol tartrate (Lopressor) 50 mg tablet Take 1 tablet (50 mg) by mouth two times daily. 180 tablet 3 06/20/2025 pravastatin (Pravachol) 40 mg tablet Take 40 mg by mouth at bedtime. 06/20/2025 torsemide (Demadex) 10 mg tablet Take 2 tablets (20 mg) by mouth in the morning. Increase torsemideto 20mg daily x7 days then alternate days of 10mg and 20mg daily 180 tablet 3 06/20/2025 albuterol 2.5 mg /3 mL (0.083 %) nebulizer solution Take 2.5 mg by nebulization three times daily. potassium chloride CR (Klor-Con) 10 mEq ER tablet Take 20 mEq by mouth in the morning. (Patient nottaking: Reported on 06/05/2025) predniSONE (Deltasone) 10 mg tablet Take 10 mg by mouth in the morning. (Patient not taking: Reported on 06/05/2025) [3] Current Facility-Administered Medications Medication Dose Route Frequency Provider Last Rate Last Admin acetaminophen (Tylenol) tablet 650 mg 650 mg oral q6h PRN Derick Cano PA-C albuterol 2.5 mg /3 mL (0.083 %) nebulizer solution 2.5 mg 2.5 mg nebulization q6h PRN Derick Cano PA-C aspirin EC tablet 81 mg 81 mg oral Daily BACILIO LimaC 81 mg at 06/21/25 1133 clonazePAM (KlonoPIN) tablet 0.5 mg 0.5 mg oral Nightly Derick Cano PA-C fluticasone (Flonase) nasal spray 2 spray 2 spray Each Nostril BID Derick Cano PA-C heparin infusion 100 units/mL in D5W 0-28 Units/kg/hr intravenous Continuous Derick Cano PA-C 6.3mL/hr at 06/21/25 1213 15 Units/kg/hr at 06/21/25 1213 lisinopril tablet 2.5 mg 2.5 mg oral Daily Derick Cano PA-C 2.5 mg at 06/21/25 1134 melatonin tablet 5 mg 5 mg oral Nightly PRN Derick Cano PA-C metoprolol tartrate (Lopressor) tablet 50 mg 50 mg oral BID Derick Cano PA-C 50 mg at 06/21/25 1133 ondansetron ODT (Zofran-ODT) disintegrating tablet 4 mg 4 mg oral q8h PRN Derick Cano PA-C Or ondansetron HCl (PF) (Zofran) injection 4 mg 4 mg intravenous q6h PRN Derick Cano PA-C Oxygen Therapy inhalation Continuous Derick Cano PA-C Oxygen On at 06/21/25 1015 pravastatin (Pravachol) tablet 40 mg 40 mg oral Nightly Derick Cano PA-C sodium chloride flush 10 mL 10 mL intravenous q8h PRN Derick Cano PA-C Cosigned by Bautista Knox MD at 06/21/2025 9:57 PM EDT * Derick Cano PA-C - 06/21/2025 10:12 AM EDT Images from the original note were not included. Hospital Medicine History and Physical 06/21/2025 10:12 AM THE HOSPITALIST TEAM PREFERS TO USE [employer] FOR NON-URGENT COMMUNICATION 7AM- 7PM. IF I DO NOT RESPOND WITHIN 20 MINUTES OR URGENT MATTERS, PLEASE CALL THROUGH THE MAIL RIDER. FROM 7PM-7AM, PLEASE PAGE [phone](COVR). Chief Complaint No chief complaint on file. History of Present Illness Aleksandr Sanchez is an 84 y.o. female w a PMH of COPD, HFpEF, pulmonary HTN w concern for Cor Pulmonale, HTN, and SVT who came from [place] ED as transfer with c/o CP and SOB. She was out with her family and began to have palpitations associated with chest pain which radiated to her jaw and left arm as well as dizziness/lightheadedness/hypotension. She presented to the [facility] ED and hstrops there trended up into the 600s. EKG demonstrates sinus w RBBB. She was started on a heparin gtt there and transferred here for further management. Family at bedside states patient has been having trouble discerning which meds she needs to take and they're concerned she has been taking extra torsemide and missing doses of metoprolol. Upon arrival here trop has downtrended to 227. BNP 539. CXR clear. WBC 11.8. She denies fevers, chills, n/v/d/c. Echo pending. Cardiology following. Review of System and Physical Exam Physical Exam Vitals and nursing note reviewed. Constitutional: General: She is not in acute distress. Appearance: Normal appearance. She is not ill-appearing. HENT: Head: Normocephalic. Mouth/Throat: Mouth: Mucous membranes are moist. Eyes: Conjunctiva/sclera: Conjunctivae normal. Cardiovascular: Rate and Rhythm: Normal rate and regular rhythm. Pulses: Normal pulses. Heart sounds: Normal heart sounds. No murmur heard. No friction rub. No gallop. Pulmonary: Effort: Pulmonary effort is normal. No respiratory distress. Breath sounds: Normal breath sounds. No wheezing, rhonchi or rales. Abdominal: General: Abdomen is flat. Bowel sounds are normal. There is no distension. Palpations: Abdomen is soft. There is no mass. Tenderness: There is no abdominal tenderness. There is no guarding. Musculoskeletal: General: No swelling, tenderness or deformity. Normal range of motion. Right lower leg: No edema. Left lower leg: No edema. Skin: General: Skin is warm. Capillary Refill: Capillary refill takes less than 2 seconds. Coloration: Skin is not jaundiced. Findings: No erythema, lesion or rash. Neurological: General: No focal deficit present. Mental Status: She is alert and oriented to person, place, and time. Mental status is at baseline. Cranial Nerves: No cranial nerve deficit. Sensory: No sensory deficit. Motor: No weakness. Psychiatric: Mood and Affect: Mood normal. Behavior: Behavior normal. Thought Content: Thought content normal. Judgment: Judgment normal. Review of Systems Constitutional: Negative for chills, diaphoresis, fatigue and fever. HENT: Negative for trouble swallowing. Eyes: Negative for visual disturbance. Respiratory: Positive for shortness of breath. Negative for cough. Cardiovascular: Positive for chest pain. Negative for leg swelling. Gastrointestinal: Negative for abdominal distention, abdominal pain, blood in stool, constipation, diarrhea, nausea and vomiting. Musculoskeletal: Negative for arthralgias and joint swelling. Skin: Negative for rash. Neurological: Negative for dizziness, tremors, syncope and numbness. All other systems reviewed and are negative. Assessment and Plan Assessment & Plan Chest pain NSTEMI (non-ST elevated myocardial infarction) ([facility]) Paroxysmal supraventricular tachycardia - Given the likely inconsistent medication/metoprolol administration, concern she could have gone into SVT, explaining the PVCs and the complete resolution of CP now that she is in sinus. - Cardiology onboard - Trend trops/EKGs - Lexiscan in AM - Tte pending - Continue heparin gtt - Patient is DNRCCA COPD (chronic obstructive pulmonary disease) ([facility]) - Resume home inhalers Benign essential hypertension Continue lisinopril and metoprolol Pulmonary HTN ([facility]) Chronic hypoxic respiratory failure, on home oxygen therapy ([facility]) - on 1L home O2. Stable VTE Prophylaxis: IV heparin ----- Focus of this inpatient stay will remain on problems that need acute care setting for care. We will review available studies and will order additional labs, imaging and other studies as appropriate. As needed medicines are ordered as appropriate. VTE Prophylaxis will be ordered as appropriate. Please see above for management plan for individual hospital problems. Home medications are reviewed and will be continued as appropriate. Patient will be continued to be followed during this hospital stay by a member of [facility]. Past Medical History Medical History[1] Past Surgical History Surgical History[2] Social History Social History Socioeconomic History Marital status: Spouse name: Not on file Number of children: Not on file Years of education: Not on file Highest education level: Not on file Occupational History Not on file Tobacco Use Smoking status: Former Types: Cigarettes Passive exposure: Past Smokeless tobacco: Never Substance and Sexual Activity Alcohol use: Yes Comment: occasional Drug use: Never Sexual activity: Defer Other Topics Concern Not on file Social History Narrative Not on file Social Drivers of Health Financial Resource Strain: Not on file Food Insecurity: Not on file Transportation Needs: Not on file Physical Activity: Not on file Stress: Not on file Social Connections: Not on file Intimate Partner Violence: Not on file Housing Stability: Not on file Family History family history is not on file. Allergies is allergic to codeine. Prior to Admission Medications Prescriptions Prior to Admission[3] Labs Labs Reviewed BASIC METABOLIC PANEL CBC AND DIFFERENTIAL Narrative: The following orders were created for panel order CBC and differential. Procedure Abnormality Status --------- ------ CBC auto differential[[id number]] Please view results for these tests on the individual orders. HIGH SENSITIVITY TROPONIN I LACTIC ACID, PLASMA MAGNESIUM CBC WITH AUTO DIFFERENTIAL B-TYPE NATRIURETIC PEPTIDE Imaging No image results found. Signed Derick Cano PA-C [facility] 06/21/2025 10:12 AM [1] Past Medical History: Diagnosis Date CHF (congestive heart failure) ([facility]) COPD (chronic obstructive pulmonary disease) ([facility]) Hyperlipidemia Hypertension [2] Past Surgical History: Procedure Laterality Date APPENDECTOMY CARDIAC CATHETERIZATION HYSTERECTOMY [3] Medications Prior to Admission Medication Sig Dispense Refill Last Dose/Taking albuterol 2.5 mg /3 mL (0.083 %) nebulizer solution Take 2.5 mg by nebulization three times daily. aspirin 81 mg EC tablet Take 81 mg by mouth in the morning. clonazePAM (KlonoPIN) 0.5 mg tablet Take 0.5 mg by mouth in the morning. fluticasone (Flonase) 50 mcg/actuation nasal spray Administer 2 sprays into each nostril two times daily. lisinopril 2.5 mg tablet Take 2.5 mg by mouth in the morning. metoprolol tartrate (Lopressor) 50 mg tablet Take 1 tablet (50 mg) by mouth two times daily. 180 tablet 3 potassium chloride CR (Klor-Con) 10 mEq ER tablet Take 20 mEq by mouth in the morning. (Patient nottaking: Reported on 06/05/2025) pravastatin (Pravachol) 40 mg tablet Take 40 mg by mouth at bedtime. predniSONE (Deltasone) 10 mg tablet Take 10 mg by mouth in the morning. (Patient not taking: Reported on 06/05/2025) torsemide (Demadex) 10 mg tablet Take 2 tablets (20 mg) by mouth in the morning. Increase torsemideto 20mg daily x7 days then alternate days of 10mg and 20mg daily 180 tablet 3 Cosigned by Burton Mejias MD at 06/23/2025 4:23 PM EDT documented in this encounter Consult Notes * Abe Sun MD - 06/21/2025 1:46 PM EDTAssociated Order(s): IP CONSULT TO CARDIOLOGY Images from the original note were not included. Cardiology Consult Note Reason for Consult: chest pain HPI: Aleksandr Sanchez is a 84 y.o. female with a past medical history significant for SVT, COPD, HFpEF, HLD, pulmonary HTN. Patient presented with chest pain to [place]. According to family she had anepisode of nausea, chest pain radiating to jaw and left arm, lightheadedness but no syncope on which resolved within a couple hours without treatment and then similar symptoms again yesterday which prompted visit to [place]. EKG showed sinus rhythm with RBBB. Peak troponin 603 now down trending. She was initiated on a heparin gtt and transferred to [facility] for further management of NSTEMI. Cardiology ROS: Negative except as mentioned. Past Medical History She has a past medical history of CHF (congestive heart failure) ([facility]), COPD (chronic obstructive pulmonary disease) ([facility]), Hyperlipidemia, and Hypertension. Surgical History She has a past surgical history that includes Appendectomy; Hysterectomy; and Cardiac catheterization. Social History She reports that she has quit smoking. Her smoking use included cigarettes. She has been exposed totobacco smoke. She has never used smokeless tobacco. She reports current alcohol use. She reports that she does not use drugs. Family History Family History[1] Allergies Codeine Medications Current Outpatient Medications Medication Instructions albuterol 2.5 mg, 3 times daily aspirin 81 mg, Daily RT brimonidine-timoloL (Combigan) 0.2-0.5 % ophthalmic solution 2 times daily RT CALCIUM CARBONATE-VITAMIN D3 ORAL 1 tablet, Daily RT clonazePAM (KLONOPIN) 0.5 mg, Daily esomeprazole (NexIUM) [address] capsule Daily fluticasone (Flonase) 50 mcg/actuation nasal spray 2 sprays, 2 times daily ntsnrykbwok-gnbrdfqer-jxjdjetb 100-62.5-25 mcg blister with device Daily latanoprost (Xalatan) 0.005 % ophthalmic solution Daily at bedtime lisinopril 2.5 mg, Daily RT metoprolol tartrate (LOPRESSOR) 50 mg, oral, 2 times daily potassium chloride CR (Klor-Con) 10 mEq ER tablet 20 mEq, Daily RT pravastatin (PRAVACHOL) 40 mg, Nightly predniSONE (DELTASONE) 10 mg, Daily torsemide (DEMADEX) 20 mg, oral, Daily, Increase torsemide to 20mg daily x7 days then alternate days of 10mg and 20mg daily Prescriptions Prior to Admission[2] Current Medications[3] Last Recorded Vitals Patient Vitals for the past 24 hrs: BP Temp Temp src Pulse Resp SpO2 Height Weight 06/21/25 1136 164/69 36.6 ??C (97.8 ??F) Temporal 87 16 100 % -- -- 06/21/25 1042 -- -- -- -- -- -- 1.524 m (5') 42.3 kg (93 lb 3.2 oz) 06/21/25 1031 150/67 36.8 ??C (98.2 ??F) Temporal 93 20 91 % -- -- 06/21/25 1015 -- -- -- -- -- 98 % -- -- Physical Examination: GENERAL: AOx3, in no acute distress. frail NECK: No JVD present. CARDIAC: RRR. No murmur, rubs, or gallops. RESPIRATORY: CTAB, no increased effort of breathing. ABDOMEN: Soft, nontender, nondistended. EXTREMITIES: +1 lower extremity edema, peripheral pulses are 2+ bilaterally. Relevant Lab Results Encounter Date: 06/21/25 ECG 12 lead Result Value Ventricular Rate 78 Atrial Rate 78 CO Interval 126 QRS DURATION 134 QT Interval 418 QTC CALCULATION(BAZETT) 476 P Kinsman 61 R-Kinsman 88 T Wave Kinsman 25 Impression Sinus rhythm with Premature atrial complexes Possible Left atrial enlargement Right bundle branch block Abnormal ECG No previous ECGs available Confirmed by Bautista Knox ([id number]) on 06/21/2025 1:20:56 PM No results found for: CKTOTAL , CKMB , CKMBINDEX , TROPONINI No echocardiogram results found for the past 12 months No nuclear medicine results found for the past 12 months Relevant Imaging Results ECG 12 lead Sinus rhythm with Premature atrial complexes Possible Left atrial enlargement Right bundle branch block Abnormal ECG No previous ECGs available Confirmed by Bautista Knox ([id number]) on 06/21/2025 1:20:56 PM XR chest 1 view Narrative: XR CHEST 1 VIEW 06/21/2025 10:17 AM CLINICAL INDICATIONS: Shortness of breath COMPARISON: None FINDINGS: Cardiac silhouette and pulmonary vessels are within normal limits. No pneumothorax. No infiltrate or pleural effusion. Impression: No acute pulmonary process. Electronically signed: Blayne Dwyer. Assessment: NSTEMI, with peak troponin 603, downtrending, no ischemic EKG changes Last cath in 2018 negative for signficant CAD HFpEF last echo in February 2025 EF 55-60%, NYHA IV. BNP 539 Pulmonary HTN Paroxysmal SVT HTN, currently borderline BP Plan: Trend troponin x1 Obtain echocardiogram Continue heparin gtt Plan for lexiscan 06/23 Continue aspirin, plavix, pravastatin, lisinopril and lopressor Replete electrolytes, maintain K>4, Mg>2 Rest of medical management per primary team Cardiology will continue to follow along Abe Sun MD Huller Operator, PGY-[address] [facility] 06/21/25 1:46 PM [1] No family history on file. [2] Medications Prior to Admission Medication Sig Dispense Refill Last Dose/Taking aspirin 81 mg EC tablet Take 81 mg by mouth in the morning. 06/20/2025 brimonidine-timoloL (Combigan) 0.2-0.5 % ophthalmic solution in the morning and at bedtime. 06/20/2025 CALCIUM CARBONATE-VITAMIN D3 ORAL Take 1 tablet by mouth in the morning. 06/20/2025 clonazePAM (KlonoPIN) 0.5 mg tablet Take 0.5 mg by mouth in the morning. 06/20/2025 esomeprazole (NexIUM) [address] capsule in the morning. 06/20/2025 fluticasone (Flonase) 50 mcg/actuation nasal spray Administer 2 sprays into each nostril two times daily. 06/20/2025 pvzcaurxfoi-sfjthfimh-yblbbxog 100-62.5-25 mcg blister with device in the morning. 06/20/2025 latanoprost (Xalatan) 0.005 % ophthalmic solution Daily at bedtime 06/20/2025 lisinopril 2.5 mg tablet Take 2.5 mg by mouth in the morning. 06/20/2025 metoprolol tartrate (Lopressor) 50 mg tablet Take 1 tablet (50 mg) by mouth two times daily. 180 tablet 3 06/20/2025 pravastatin (Pravachol) 40 mg tablet Take 40 mg by mouth at bedtime. 06/20/2025 torsemide (Demadex) 10 mg tablet Take 2 tablets (20 mg) by mouth in the morning. Increase torsemideto 20mg daily x7 days then alternate days of 10mg and 20mg daily 180 tablet 3 06/20/2025 albuterol 2.5 mg /3 mL (0.083 %) nebulizer solution Take 2.5 mg by nebulization three times daily. potassium chloride CR (Klor-Con) 10 mEq ER tablet Take 20 mEq by mouth in the morning. (Patient nottaking: Reported on 06/05/2025) predniSONE (Deltasone) 10 mg tablet Take 10 mg by mouth in the morning. (Patient not taking: Reported on 06/05/2025) [3] Current Facility-Administered Medications Medication Dose Route Frequency Provider Last Rate Last Admin acetaminophen (Tylenol) tablet 650 mg 650 mg oral q6h PRN Derick Cano PA-C albuterol 2.5 mg /3 mL (0.083 %) nebulizer solution 2.5 mg 2.5 mg nebulization q6h PRN Derick Cano PA-C aspirin EC tablet 81 mg 81 mg oral Daily Derick Cano PA-C 81 mg at 06/21/25 1133 clonazePAM (KlonoPIN) tablet 0.5 mg 0.5 mg oral Nightly Derick Cano PA-C fluticasone (Flonase) nasal spray 2 spray 2 spray Each Nostril BID Derick Cano PA-C heparin infusion 100 units/mL in D5W 0-28 Units/kg/hr intravenous Continuous Derick Cano PA-C 6.3mL/hr at 06/21/25 1213 15 Units/kg/hr at 06/21/25 1213 lisinopril tablet 2.5 mg 2.5 mg oral Daily Derick Cano PA-C 2.5 mg at 06/21/25 1134 melatonin tablet 5 mg 5 mg oral Nightly PRN Derick Cano PA-C metoprolol tartrate (Lopressor) tablet 50 mg 50 mg oral BID Derick Cano PA-C 50 mg at 06/21/25 1133 ondansetron ODT (Zofran-ODT) disintegrating tablet 4 mg 4 mg oral q8h PRN Derick Cano PA-C Or ondansetron HCl (PF) (Zofran) injection 4 mg 4 mg intravenous q6h PRN Derick Cano PA-C Oxygen Therapy inhalation Continuous Derick Cano PA-C Oxygen On at 06/21/25 1015 pravastatin (Pravachol) tablet 40 mg 40 mg oral Nightly Derick Cano PA-C sodium chloride flush 10 mL 10 mL intravenous q8h PRN Derick Cano PA-C Cosigned by Bautista Knox MD at 06/21/2025 9:57 PM EDT Associated attestation - Bautista Knox MD - 06/21/2025 9:57 PM EDT By using the attestations below, the signing clinician agrees that I have read and verify that thedocumentation has been personally reviewed by me and ensure that the documentation accurately reflects the encounter. GC: I performed the flores portion(s) of the service and participated in the management and confirm the resident's documentation. Please note there may be an additional personal documentation from me. Will plan on stress test to eval for CAD. documented in this encounter Nursing Notes * Nkechi Garcia RN - 06/23/2025 11:00 AM EDT Report given to ZOFIA Crowell from ZOFIA Arboleda RN notified RN of pts procedural intervention site, allergies, IV location/status, and medications given during the procedure. Any diagnostics, abnormal labs, abnormal assessment findings, orders and safety concerns/issues were reviewed. RN encouraged RN receiving handoff to voice any questions or concerns, and answered any questions or concerns if verbalized. RN verbalizes the pt will be coming up to the floor soon. documented in this encounter Miscellaneous Notes * Care Plan - Suzy Etienne RN - 06/24/2025 10:16 AM EDT Mental Health Advanced Practice Nurse went bedside and talked with patient about discharge planning. Patient stated she plans to dc home today and wears 1 L [place] oxygen at home through [facility]. Patient did say she was planning on moving to [place], [place] by [place]. Patient had questions onif [facility] has offices in [place]. Patient was agreeable for principal technical writer to call [facility] to confirm. Mental Health Advanced Practice Nurse called [facility] while in patients room and talk with staff. Mental Health Advanced Practice Nurse was told by [facility] staff that they do have offices in [place] and confirmed they have one in [place]. Mental Health Advanced Practice Nurse was also told by staff that patient will need to call [facility] with 1 - 2 weeks before moving so they can transfer information to local office. Mental Health Advanced Practice Nurse informed patient of this, patient voiced understanding and principal technical writer placed information on AVS as well. * Care Plan - Beth Randall RN - 06/24/2025 9:55 AM EDT The patient is Moderately Stable - Low risk of patient condition declining or worsening The patient's goals for the shift include rest The clinical goals for the shift include VSS, safety, comfort Over the shift, the patient did not make progress toward the following goals. Barriers to progression include na. Recommendations to address these barriers include na. * Hospital Course - Woody Barriga MD - 06/24/2025 8:31 AM EDT Aleksandr Sanchez is a 84 y.o. female with a past medical history significant for SVT, COPD, HFpEF, HLD, pulmonary HTN. Patient presented with chest pain to [place]. EKG showed sinus rhythm with RBBB. Peak troponin 603 now down trending. She was initiated on a heparin gtt and [facility]. Patient had last cardiac cath 2018 and was negative for significant coronary artery disease. Echo was done and showed EF 55%. Doppler study suggested moderately elevated right-sided pressures.There is suggestion of an atrial septal defect. Moderate to severe MR and moderate to severe TR. Patient was taken to the cardiac cat and showed mild coronary artery disease with normal intracoronary physiology of the LAD including normal FFR and normal coronary flow reserve. Also comment of normal right heart cath. Patient being discharged home today and to follow-up with PCP in [address] Beyer how you good yeflower * Care Plan - Hellen Carmichael RN - 06/23/2025 10:29 PM EDT The patient is Moderately Stable - Low risk of patient condition declining or worsening The patient's goals for the shift include rest The clinical goals for the shift include VSS, safety, comfort Problem: Pain - Adult Goal: Verbalizes/displays adequate comfort level or baseline comfort level Outcome: Progressing Flowsheets (Taken 06/23/20252227) Verbalizes/displays adequate comfort level or baseline comfort level: Encourage patient to monitor pain and request assistance Problem: Safety - Adult Goal: Free from fall injury 06/23/20252227 by Hellen Carmichael RN Outcome: Progressing Flowsheets (Taken 06/23/20252227) Free from fall injury: Assess patient frequently for physical needs 06/23/20252227 by Hellen Carmichael RN Outcome: Progressing Flowsheets (Taken 06/23/20252227) Free from fall injury: Assess patient frequently for physical needs Problem: Discharge Planning Goal: Discharge to home or other facility with appropriate resources Outcome: Progressing Flowsheets (Taken 06/23/20252227) Discharge to home or other facility with appropriate resources: Identify barriers to discharge withpatient and caregiver Problem: Chronic Conditions and Co-morbidities Goal: Patient's chronic conditions and co-morbidity symptoms are monitored and maintained or improved Outcome: Progressing Flowsheets (Taken 06/23/20252227) Care Plan - Patient's Chronic Conditions and Co-Morbidity Symptoms are Monitored and Maintained or Improved: Monitor and assess patient's chronic conditions and comorbid symptoms for stability, deterioration,or improvement Collaborate with multidisciplinary team to address chronic and comorbid conditions and prevent exacerbation or deterioration Problem: Cardiovascular - Adult Goal: Maintains optimal cardiac output and hemodynamic stability Outcome: Progressing Flowsheets (Taken 06/23/20252227) Maintains optimal cardiac output and hemodynamic stability: Monitor blood pressure and heart rate * Care Plan - Beth Randall RN - 06/23/2025 10:44 AM EDT The patient is Moderately Stable - Low risk of patient condition declining or worsening The patient's goals for the shift include rest, safety The clinical goals for the shift include vss, comfort Over the shift, the patient did not make progress toward the following goals. Barriers to progression include na. Recommendations to address these barriers include na. * Pre-Sedation Documentation - Roxanne Ayala MD - 06/23/2025 10:29 AM EDT Patient: Aleksandr Sanchez Procedure Information Date/Time: 06/23/25 1345 Procedures: Coronary angiography Right heart cath Location: [facility] [employer] 3 / [facility] (Cath) Providers: Nestor Beyer MD Clinical information reviewed: Allergies Meds Physical Exam Airway Mallampati: II TM distance: >3 FB Neck ROM: full Cardiovascular Dental Pulmonary Neurological Abdominal - normal exam Anesthesia Plan ASA 3 other (Conscious sedation) Anesthetic plan and risks discussed with patient. Use of blood products discussed with patient who consented to blood products. Plan discussed with attending. Additional Equipment Requests Cosigned by Nestor Beyer MD at 06/23/2025 10:37 AM EDT * Pre-Sedation Documentation - Jerri Knight MD - 06/23/2025 10:18 AM EDT Patient: Aleksandr Sanchez Choose an anesthesia record to view details Clinical information reviewed: Allergies Meds Physical Exam Airway Mallampati: II TM distance: >3 FB Neck ROM: full Cardiovascular Rhythm: regular Rate: normal (+) murmur Dental Pulmonary (-) decreased breath sounds, wheezes, rales Neurological Abdominal Abdomen: soft Bowel sounds: normal Anesthesia Plan ASA 3 (Conscious sedation) Anesthetic plan and risks discussed with patient. Use of blood products discussed with patient who consented to blood products. Plan discussed with attending and fellow. Additional Equipment Requests Cosigned by Xochitl Maradiaga MD at 06/28/2025 2:24 PM EDT Associated attestation - Xochitl Maradiaga MD - 06/28/2025 2:24 PM EDT By using the attestations below, the signing clinician agrees that I have read and verify that thedocumentation has been personally reviewed by me and ensure that the documentation accurately reflects the encounter. GC: I personally saw this patient on the day of the encounter with Dr. Knight, performed the flores portion(s) of the service and participated in the management and confirm the resident's documentation. Please note there may be an additional personal documentation from me. * Assessment & Plan Note - Woody Barriga MD - 06/23/2025 10:01 AM EDTAssociated Problem(s): Chest pain - Trops trending down in the last one of 94 - EKG consistent with sinus rhythm right bundle branch block Last cardiac cath 2019 negative for significant coronary artery disease - Continue heparin gtt, plan for echo and cardiac cath today -Continue aspirin, Plavix, pravastatin, lisinopril and Lopressor - Patient is DNRCCA * Assessment & Plan Note - Woody Barriga MD - 06/23/2025 10:01 AM EDTAssociated Problem(s): NSTEMI (non-ST elevated myocardial infarction) ([facility]) - Trops trending down in the last one of 94 - EKG consistent with sinus rhythm right bundle branch block Last cardiac cath 2019 negative for significant coronary artery disease - Continue heparin gtt, plan for echo and cardiac cath today -Continue aspirin, Plavix, pravastatin, lisinopril and Lopressor - Patient is DNRCCA * Assessment & Plan Note - Woody Barriga MD - 06/23/2025 10:01 AM EDTAssociated Problem(s): Paroxysmal supraventricular tachycardia - Trops trending down in the last one of 94 - EKG consistent with sinus rhythm right bundle branch block Last cardiac cath 2019 negative for significant coronary artery disease - Continue heparin gtt, plan for echo and cardiac cath today -Continue aspirin, Plavix, pravastatin, lisinopril and Lopressor - Patient is DNRCCA * Assessment & Plan Note - Woody Barriga MD - 06/23/2025 10:01 AM EDTAssociated Problem(s): COPD (chronic obstructive pulmonary disease) (CMS/HCC) - Resume home inhalers, patient currently on Dulera and Incruse Ellipta * Assessment & Plan Note - Woody Barriga MD - 06/23/2025 10:01 AM EDTAssociated Problem(s): Benign essential hypertension Continue above-mentioned medication * Assessment & Plan Note - Woody Barriga MD - 06/23/2025 10:01 AM EDTAssociated Problem(s): Chronic hypoxic respiratory failure, on home oxygen therapy (CMS/HCC) - on 1L home O2. Stable * Assessment & Plan Note - Woody Barriga MD - 06/23/2025 10:01 AM EDTAssociated Problem(s): Chronic diastolic heart failure (CMS/HCC) Patient has history of heart failure preserved EF based on echo in March 16 2555 to 60%, NYHA class IV Patient seems well compensated * Assessment & Plan Note - Woody Barriga MD - 06/22/2025 10:39 AM EDTAssociated Problem(s): Chest pain - Trops trending down in the last one - EKG consistent with sinus rhythm right bundle branch block Last cardiac cath 2019 negative for significant coronary artery disease - Continue heparin gtt, plan for echo as well as Lexiscan stress test in a.m. -Continue aspirin, Plavix, pravastatin, lisinopril and Lopressor - Patient is DNRCCA * Assessment & Plan Note - Woody Barriga MD - 06/22/2025 10:39 AM EDTAssociated Problem(s): NSTEMI (non-ST elevated myocardial infarction) ([facility]) - Trops trending down in the last one of 94 - EKG consistent with sinus rhythm right bundle branch block Last cardiac cath 2019 negative for significant coronary artery disease - Continue heparin gtt, plan for echo as well as Lexiscan stress test in a.m. -Continue aspirin, Plavix, pravastatin, lisinopril and Lopressor - Patient is DNRCCA * Assessment & Plan Note - Woody Barriga MD - 06/22/2025 10:39 AM EDTAssociated Problem(s): Paroxysmal supraventricular tachycardia - Trops trending down in the last one of 94 - EKG consistent with sinus rhythm right bundle branch block Last cardiac cath 2019 negative for significant coronary artery disease - Continue heparin gtt, plan for echo as well as Lexiscan stress test in a.m. -Continue aspirin, Plavix, pravastatin, lisinopril and Lopressor - Patient is DNRCCA * Assessment & Plan Note - Woody Barriga MD - 06/22/2025 10:39 AM EDTAssociated Problem(s): COPD (chronic obstructive pulmonary disease) ([facility]) - Resume home inhalers, patient currently on Dulera and Incruse Ellipta * Assessment & Plan Note - Woody Barriga MD - 06/22/2025 10:39 AM EDTAssociated Problem(s): Benign essential hypertension Continue above-mentioned medication * Assessment & Plan Note - Woody Barriga MD - 06/22/2025 10:39 AM EDTAssociated Problem(s): Chronic hypoxic respiratory failure, on home oxygen therapy (CMS/HCC) - on 1L home O2. Stable * Assessment & Plan Note - Woody Barriga MD - 06/22/2025 10:39 AM EDTAssociated Problem(s): Chronic diastolic heart failure (CMS/HCC) Patient has history of heart failure preserved EF based on echo in March 16 2555 to 60%, NYHA class IV Patient seems well compensated * Assessment & Plan Note - Derick Cano PA-C - 06/21/2025 2:30 PM EDTAssociated Problem(s): Chest pain - Given the likely inconsistent medication/metoprolol administration, concern she could have gone into SVT, explaining the PVCs and the complete resolution of CP now that she is in sinus. - Cardiology onboard - Trend trops/EKGs - Lexiscan in AM - Tte pending - Continue heparin gtt - Patient is DNRCCA * Assessment & Plan Note - Derick Cano PA-C - 06/21/2025 2:30 PM EDTAssociated Problem(s): NSTEMI (non-ST elevated myocardial infarction) ([facility]) - Given the likely inconsistent medication/metoprolol administration, concern she could have gone into SVT, explaining the PVCs and the complete resolution of CP now that she is in sinus. - Cardiology onboard - Trend trops/EKGs - Lexiscan in AM - Tte pending - Continue heparin gtt - Patient is DNRCCA * Assessment & Plan Note - Derick Cano PA-C - 06/21/2025 2:30 PM EDTAssociated Problem(s): Paroxysmal supraventricular tachycardia - Given the likely inconsistent medication/metoprolol administration, concern she could have gone into SVT, explaining the PVCs and the complete resolution of CP now that she is in sinus. - Cardiology onboard - Trend trops/EKGs - Lexiscan in AM - Tte pending - Continue heparin gtt - Patient is DNRCCA * Assessment & Plan Note - Derick Cano PA-C - 06/21/2025 2:30 PM EDTAssociated Problem(s): COPD (chronic obstructive pulmonary disease) ([facility]) - Resume home inhalers * Assessment & Plan Note - Derick Cano PA-C - 06/21/2025 2:30 PM EDTAssociated Problem(s): Benign essential hypertension Continue lisinopril and metoprolol * Assessment & Plan Note - Derick Cano PA-C - 06/21/2025 2:30 PM EDTAssociated Problem(s): Chronic hypoxic respiratory failure, on home oxygen therapy ([facility]) - on 1L home O2. Stable documented in this encounter Plan of Treatment NameTypePriorityAssociated DiagnosesOrder ScheduleAmbulatory referral to Cardiac RehabOutpatient ReferralRoutine 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 Expected: 06/23/2025 (Approximate), Expires: 12/22/2025documented as of this encounter Procedures Procedure NamePriorityDate/TimeAssociated DiagnosisCommentsHEMOGLOBIN AND HEMATOCRIT, BLOODPending Qevwhatbo90/28/2025 4:41 AM EDT MAGNESIUMPending Uzyluyxwo01/28/2025 4:41 AM EDT BASIC METABOLIC PANELPending Zyycbdcfy05/28/2025 4:41 AM EDT FRACTIONAL FLOW RESERVE (FFR)Utkdzdr9206/23/2025 12:32 PM EDT NSTEMI (non-ST elevated myocardial infarction) (CMS/HCC) RIGHT HEART QRRLLljqiif38/27/2025 12:32 PM EDT NSTEMI (non-ST elevated myocardial infarction) (CMS/HCC) CORONARY WTRBBRQFSINIowgajn05/27/2025 12:32 PM EDT NSTEMI (non-ST elevated myocardial infarction) (CMS/HCC) ACTIVATED CLOTTING VVDXAcugwqz51/27/2025 12:31 PM EDT ACTIVATED CLOTTING AYHWUlkworn26/27/2025 12:13 PM EDT %FJQ7Uaoddkr56/27/2025 11:54 AM EDT ECHO ABORTED YYAQNNINCLjauwqu55/27/2025 11:01 AM EDT EXTRA GGODOWhiueqo36/27/2025 4:26 AM EDT LAVENDER MATQeygplo30/27/2025 4:26 AM EDT LIGHT GREEN VVIIauqiom50/27/2025 4:26 AM EDT ANTI-FACTOR XAPending Dcgavtbvk63/27/2025 4:26 AM EDT ANTI-FACTOR XAPending Tyffxzdxa33/26/2025 5:01 AM EDT CBCPending Drbttwixs10/26/2025 5:01 AM EDT BASIC METABOLIC PANELPending Osaliuzkg35/26/2025 5:01 AM EDT HIGH SENSITIVITY TROPONIN MOikvb8006/21/2025 11:15 PM EDT ANTI-FACTOR OVOflgl78/25/2025 11:15 PM EDT HIGH SENSITIVITY TROPONIN ZQvitw0706/21/2025 5:07 PM EDT ANTI-FACTOR AJZwkjx29/25/2025 5:07 PM EDT HIGH SENSITIVITY TROPONIN VPtwhu0306/21/2025 11:43 AM EDT QTMTNJVX52/25/2025 11:43 AM EDT ECG 12-JDOPVCYW24/25/2025 11:36 AM EDT COMPLETE ECHO (TTE)Jicdggc2106/21/2025 11:01 AM EDT XR CHEST 1 EZQRATOF31/25/2025 10:24 AM EDT HIGH SENSITIVITY TROPONIN ISTAT1 10:15 AM EDT CBC WITH AUTO RFDQNASPJHXRYPRS88/25/2025 10:15 AM EDT CBC AND EWHJWLGDWTPXXLNA55/25/2025 10:15 AM EDT B-TYPE NATRIURETIC MPAJXBNWKBC26/25/2025 10:15 AM EDT ZBYOJRKWSDEZN10/25/2025 10:15 AM EDT BASIC METABOLIC DPQBNVPVX38/25/2025 10:15 AM EDT LACTIC ACID, VEEEMKLKMT93/25/2025 10:14 AM EDT documented in this encounter Results * Magnesium (06/24/2025 4:41 AM EDT)ComponentValueRef RangeTest MethodAnalysis TimePerformed AtPathologist SignatureMagnesium1.91.9 - 2.7 mg/dL06/24/2025 5:47 AM [facility] ([facility])Specimen (Source)Anatomical Location / LateralityCollection Method / VolumeCollection TimeReceived TimeBloodVenous blood specimen / UnknownVenipuncture / Yivbyru0806/24/2025 4:41 AM EDT1 5:22 AM EDT Narrative Authorizing ProviderResult TypeResult StatusHani Linus JIMENEZLAB BLOOD ORDERABLES Final ResultPerforming OrganizationAddressCity/State/ZIP CodePhone Number [facility] ([facility]) [address] [place] [address] * (ABNORMAL) Basic metabolic panel (06/24/2025 4:41 AM EDT)ComponentValueRef RangeTest MethodAnalysis TimePerformed AtPathologist WzdsmwqeuHkyiua207569 - 145 mmol/L1 5:47 AM [facility] ([facility])Potassium3.93.5 - 5.1 mmol/L1 5:47 AM [facility] ([facility])Dfxqqspd698(H)98 - 107 mmol/L1 5:47 AM [facility] ([facility])BS25409 - 31 mmol/L 06/24/2025 5:47 AM [facility] ([facility])POY972 - 25 mg/dL06/24/2025 5:47 AM [facility] ([facility])Creatinine0.59(L)0.60 - 1.20 mg/dL 06/24/2025 5:47 AM [facility] ([facility])Yiepbep4713 - 100 mg/dL 06/24/2025 5:47 AM [facility] ([facility])Calcium8.98.6 - 10.3 mg/dL 06/24/2025 5:47 AM [facility] ([facility])Anion Hos746 - 20 mmol/L 06/24/2025 5:47 AM [facility] ([facility])eGFR89.4>60.0 mL/min/1.73m*2 06/24/2025 5:47 AM [facility] ([facility])Comment:The [facility]???s estimated glomerular filtration rate (eGFR) will no longer include consideration of race in its calculation. The National Kidney Foundation???s eGFR Task Force developed new recommendations for the estimation of the glomerular filtration rate in the [place] They recommend immediate implementation of the new equation refit without the race variable in all laboratories because the calculation does not include race. In addition to not including race in the calculation and reporting, it included diversity in its development, and has acceptable performance characteristics and potential consequences that do not disproportionately affect any one group of individuals.BUN/Creatinine Ratio20. 5:47 AM [facility] ([facility])Specimen (Source)Anatomical Location / LateralityCollection Method / VolumeCollection TimeReceived TimeBloodVenous blood specimen / Unknown Venipuncture / Wykqnmq7906/24/2025 4:41 AM EDT1 5:22 AM EDT Narrative Authorizing ProviderResult TypeResult StatusHani Linus MARTIN BLOOD ORDERABLES Final ResultPerforming OrganizationAddressCity/State/ZIP CodePhone Number [facility] ([facility]) [address] [place] [address] * (ABNORMAL) Hemoglobin and hematocrit, blood (06/24/2025 4:41 AM EDT)Component ValueRef RangeTest MethodAnalysis TimePerformed AtPathologist Signature Jidskktklp66.9(L)12.0 - 15.0 g/dL06/24/2025 5:54 AM [facility] ([facility])Ggceipualm41.9(L)36.0 - 45.0 %06/24/2025 5:54 AM [facility] ([facility])Specimen (Source)Anatomical Location / LateralityCollection Method / VolumeCollection TimeReceived TimeBloodVenous blood specimen / Unknown Venipuncture / Grjlobp8806/24/2025 4:41 AM EDT1 5:22 AM EDT Narrative Authorizing ProviderResult TypeResult StatusRagianni Beyer MDLAB BLOOD ORDERABLES Final ResultPerforming OrganizationAddressCity/State/ZIP CodePhone Number [facility] ([place]) [address] [place] [address] * CORONARY ANGIOGRAPHY, RIGHT HEART CATH, FRACTIONAL FLOW RESERVE (FFR) (06/23/2025 12:32 PM EDT)Anatomical RegionLateralityModalityOtherSpecimen (Source)Anatomical Location / LateralityCollection Method / VolumeCollection TimeReceived Time Narrative 06/23/2025 1:20 PM EDT PROCEDURE PHYSICIAN: Nestor Beyer MD Clinical Presentation: 84 y.o. Female with history of SVT, COPD, HFpEF, HLD, pulmonary HTN. Patient presented with chest pain to [facility]. She had nausea, chest pain radiating to jaw and left arm, lightheadedness. EKG showed sinus rhythm with RBBB. Peak HS-troponin 603, then trended down. She was started on a heparin gtt and transferred to [facility] for management of NSTEMI. She also had acute on chronic HFpEF and MR and TR on echo. Final Impression: 1) Coronary angiogram reveals mild CAD 2) normal intracoronary physiology of the LAD including normal FFR and normal coronary flow reserve (CFR) 3) normal right heart catheterization Plan: 1) optimal med therapy for CAD and HFpEF Procedures Performed: coronary angiogram, right heart catheterization, ?? intracoronary physiology assessment of the LAD including FFR and CFR with adenosine, ultrasound guidance for vascular access Procedure Description: The patient was brought to the cardiac catheterization lab in a fasting state. ??Informed written consent was obtained. ??she was prepped and draped in usual sterile fashion over the left wrist and right neck and bilateral groins. ??Time-out was performed. ??she was given Versed and fentanyl for sedation. ?? 1% lidocaine was infiltrated over the right internal jugular vein. ??Using ultrasound guidance and a micropuncture access technique a 6 New Zealander sheath was placed in the right internal jugular vein. ??The Lau catheter was advanced under fluoroscopic and hemodynamic monitoring to the right atrium. ??Pressure obtained of the right atrium, right ventricle, pulmonary artery, pulmonary capillary position. ??Oxygen saturation drawn for the pulmonary artery and Martina cardiac with a cardiac index were calculated. 1% lidocaine was infiltrated over the left radial artery. ??A 6-[place] Zealander Terumo Glidesheath slender was placed in left radial artery. ??Radial anti-vasospasm cocktail of verapamil 1.25 mg and nitroglycerin 100 mcg was administered through the sheath. ??All catheter exchanges were made over the Marks guidewire. ?? Coronary angiogram was performed with a JL4 to engage the left main and a JR4 to engage the RCA. Coronary angiogram was performed in multiple orthogonal views. At this time, it was apparent that the LAD had intermediate stenosis and sluggish flow. ??I decided to proceed with intracoronary physiology assessment. Heparin anticoagulation was used for this procedure. ACT was maintained at >250 seconds. A 6 [place]ander Hiddenbed JL 3.5 guide was engaged to the left main. The HubCast pressurewireX was zeroed outside of the body. ??The wire was then manipulated to the proximal LAD and the pressure curves were normalized with the pressure transducer at the catheter guide tip. ??The wire was then manipulated to the distal LAD. I then performed a 3 baseline saline injections for the baseline part of the CFR assessment. ??We then infused adenosine and rate of 140 mcg/kg/min for 2 minutes and then perform 3 saline injections for the hyperemic portion of the CFR. ??The CFR was then calculated it was normal at 2.9. The FFR was then measured and it was normal at 0.91. ??The IMR was also normal at 20. The procedure was then completed. All catheters and wires were removed. ??The left radial sheath was removed and a TR band was applied to obtain hemostasis. ??The right internal jugular venous sheath was removed and manual pressure with a quick clot pad was applied to obtain hemostasis. Specimens Removed: None Complications: None Hemodynamic Data: ?? RA: 4 mmHg RV: 31/7 mmHg PA: 33/11 (21) mmHg PCWP: 14 mmHg AO: 105/55 (70) mmHg CO: 3.1 L/min CI: 2.3 L/min/m2 O2 Sat: PA sat: 65% AO sat: 100% Coronary Angiogram: Left main: ?? The left main is short and patent. ??The left main bifurcates into the LAD and left circumflex coronary arteries. LAD: ?? The LAD is a moderate caliber vessel. ??The mid LAD is 30% stenosis. The distal LAD has diffuse 30% stenosis. ??It is overall small caliber in the distal segment. ??There is a large first diagonal branch which is patent. LCX: ?? The circumflex is moderate caliber and has 20% stenosis throughout the proximal segment. ??The circumflex gives rise to multiple very small obtuse marginal branches which are all patent. ??The remainder of circumflex is patent. RCA: ?? The RCA is a moderate caliber vessel and is dominant. ??The proximal RCA is 30% stenosis. ??The mid RCA has 30% stenosis. ??Remainder of the RCA is patent. ??The right PLACIDO and PDA are patent. The right PDA is very small. Study Details NSTEMI, acute on chronic HFpEF Authorizing ProviderResult TypeResult StatusVarinder Cruz [facility] CARDIAC CATH PROCEDURESFinal Result * (ABNORMAL) Activated clotting time (06/23/2025 12:31 PM EDT)ComponentValueRef RangeTest MethodAnalysis TimePerformed AtPathologist SignatureActivated Clotting Efrk632(H)82 - 152 06/24/2025 7:07 AM [facility]) Specimen (Source)Anatomical Location / LateralityCollection Method / Volume Collection TimeReceived TimeBloodVenous blood specimen / Ellcdut8606/23/2025 12:31 PM EDT1 7:07 AM EDT Narrative Authorizing ProviderResult TypeResult StatusWoody MARTIN POINT OF CARE TEST DOCKED DEVICE UNSOLICITED RESULTSFinal ResultPerforming OrganizationAddress City/State/ZIP CodePhone Number [facility] ([facility]) [address] [place] [address] * (ABNORMAL) Activated clotting time (06/23/2025 12:13 PM EDT)ComponentValueRef RangeTest MethodAnalysis TimePerformed AtPathologist SignatureActivated Clotting Gmri696(H)82 - 152 06/23/2025 12:17 PM [facility] ([facility]) Specimen (Source)Anatomical Location / LateralityCollection Method / Volume Collection TimeReceived TimeBloodVenous blood specimen / Shumazl3806/23/2025 12:13 PM EDT1 12:16 PM EDT Narrative Authorizing ProviderResult TypeResult Darline MARTIN POINT OF CARE TEST DOCKED DEVICE UNSOLICITED RESULTSFinal ResultPerforming OrganizationAddress City/State/ZIP CodePhone Number [facility] ([facility]) [address] [place] [address] * (ABNORMAL) %HbO2 (06/23/2025 11:54 AM EDT)ComponentValueRef RangeTest Method Analysis TimePerformed AtPathologist CcgpddarlC2Ro%64.9(L)90.0 - 95.0 % 06/23/2025 11:54 AM [facility] ([facility])Specimen (Source)Anatomical Location / LateralityCollection Method / VolumeCollection TimeReceived Time BloodVenous blood specimen / Uahpnns8806/23/2025 11:54 AM EDT1 11:54 AM EDT Narrative Authorizing ProviderResult TypeResult Darline MARTIN POINT OF CARE TEST DOCKED DEVICE UNSOLICITED RESULTSFinal ResultPerforming OrganizationAddress City/State/ZIP CodePhone Number [facility] ([facility]) [address] [place] [address] * ECHO ABORTED PROCEDURE (06/23/2025 11:01 AM EDT)Anatomical RegionLaterality ModalityOtherSpecimen (Source)Anatomical Location / LateralityCollection Method / VolumeCollection TimeReceived Time06/23/2025 10:02 AM EDT Narrative 06/23/2025 11:41 AM EDT [facility] Heart Station [address] [place] [address] [phone] (fax) Transesophageal Echocardiogram-[facility] Name: ALEKSANDR SANCHEZ Study Date: 06/23/2025 10:02 AM B/P: 132 mmHg/78 mmHg HR: Date of : 1940 Location: [facility] Height: 60 in. Age: 84 year(s) Patient Room: 3161 Weight: 92 lb. Gender: Female Patient Status: InPt BSA: 1.34 m2 Indication: Mitral regurgitation Examination: Aborted Patient Consent: Informed, written consent was obtained for the procedure Exam Location: Unable to perform ROMAN Anesthesia Pharyngeal anesthesia with viscous Lidocaine Conclusions Overall Conclusions: Unable to pass the probe. Consider doing ROMAN under general ansthesia if clinically indicated. Medications Date Time Name Route Form Dose Units Ordered By Given By Comment 06/23/2025 11:02 AM Midazolam HCL (Versed) 3 milligrams 06/23/2025 11:02 AM Fentanyl (Opiates) 50 micrograms Procedure Staff Reading Group: [facility] Hand Stemmer: Sara Mccarthy RDCS ??Ordering Physician: Varinder Cruz MD ?? Procedure Note Xochitl Maradiaga MD - 06/23/2025 1 [facility] Heart Station [address] [facility] [address] [place] [id number] [phone] (fax) Transesophageal Echocardiogram-[facility] Name: ALEKSANDR SANCHEZ Study Date: 06/23/2025 10:02 AM B/P: 132 mmHg/78 mmHg HR: Date of : 1940 Location: [facility] Height: 60 in. Age: 84 year(s) Patient Room: [facility] Weight: 92 lb. Gender: Female Patient Status: InPt BSA: 1.34 m2 Indication: Mitral regurgitation Examination: Aborted Patient Consent: Informed, written consent was obtained for the procedure Exam Location: Unable to perform ROMAN Anesthesia Pharyngeal anesthesia with viscous Lidocaine Conclusions Overall Conclusions: Unable to pass the probe. Consider doing ROMAN under general ansthesia if clinically indicated. Medications Date Time Name Route Form Dose Units Ordered By Given By Comment 06/23/2025 11:02 AM Midazolam HCL (Versed) 3 milligrams 06/23/2025 11:02 AM Fentanyl (Opiates) 50 micrograms Procedure Staff Reading Group: [facility] Hand Stemmer: Sara Mccarthy RDCS Ordering Physician: Varinder Cruz MD Authorizing ProviderResult TypeResult Teresa Cruz [facility] ECHO PROCEDURESFinal Result * Lavender Top (06/23/2025 4:26 AM EDT)ComponentValueRef RangeTest Method Analysis TimePerformed AtPathologist SignatureExtra TubeHold for add-ons. 06/23/2025 6:01 AM [facility] ([facility])Comment:Auto resulted.Specimen (Source)Anatomical Location / LateralityCollection Method / VolumeCollection TimeReceived TimeBloodVenous blood specimen / Ahwyzga4606/23/2025 4:26 AM EDT 06/23/2025 4:38 AM EDT Narrative Authorizing ProviderResult TypeResult Darline MARTIN BLOOD ORDERABLES Final ResultPerforming OrganizationAddressCity/State/ZIP CodePhone Number [facility]) [address] [place] [address] * Light Green Top (06/23/2025 4:26 AM EDT)ComponentValueRef RangeTest Method Analysis TimePerformed AtPathologist SignatureExtra TubeHold for add-ons. 06/23/2025 6:01 AM [facility])Comment:Auto resulted.Specimen (Source)Anatomical Location / LateralityCollection Method / VolumeCollection TimeReceived TimeBloodVenous blood specimen / Tpricwx1306/23/2025 4:26 AM EDT 06/23/2025 4:38 AM EDT Narrative Authorizing ProviderResult TypeResult Darline MARTIN BLOOD ORDERABLES Final ResultPerforming OrganizationAddressCity/State/ZIP CodePhone Number [facility]) [address] [place] [address] * Anti-Xa (Heparin Level) (06/23/2025 4:26 AM EDT)ComponentValueRef RangeTest MethodAnalysis TimePerformed AtPathologist SignatureAnti-Xa (Heparin)0.410.3 - 0.7 IU/mL06/23/2025 5:08 AM [facility] ([facility])Comment:Rivaroxaban and Apixaban will interfere with the anti Xa assay used to monitor UFH and LMWH.Specimen (Source)Anatomical Location / LateralityCollection Method / VolumeCollection TimeReceived TimeBloodVenous blood specimen / Unknown Venipuncture / Fxzmtqi7106/23/2025 4:26 AM EDT1 4:35 AM EDT Narrative Authorizing ProviderResult TypeResult StatusNestor MARTIN BLOOD ORDERABLES Final ResultPerforming OrganizationAddressCity/State/ZIP CodePhone Number [facility] ([facility]) [address] [place] [address] * Anti-Xa (Heparin Level) (06/22/2025 5:01 AM EDT)ComponentValueRef RangeTest MethodAnalysis TimePerformed AtPathologist SignatureAnti-Xa (Heparin)0.410.3 - 0.7 IU/mL06/22/2025 6:02 AM [facility] ([facility])Comment:Rivaroxaban and Apixaban will interfere with the anti Xa assay used to monitor UFH and LMWH.Specimen (Source)Anatomical Location / LateralityCollection Method / VolumeCollection TimeReceived TimeBloodVenous blood specimen / Unknown Venipuncture / Evrgfcy1506/22/2025 5:01 AM EDT1 5:19 AM EDT Narrative Authorizing ProviderResult TypeResult StatusDerick Jerome PA-CLAB BLOOD ORDERABLESFinal ResultPerforming OrganizationAddressCity/State/ZIP CodePhone Number [facility] ([facility]) [address] [place] [address] * (ABNORMAL) CBC (06/22/2025 5:01 AM EDT)ComponentValueRef RangeTest Method Analysis TimePerformed AtPathologist SignatureAuto WBC10.544.00 - 10.60 10*3/uL06/22/2025 5:44 AM [facility] ([facility])RBC3.75(L)3.80 - 5.00 10*6/uL06/22/2025 5:44 AM [facility] ([facility])Tbphiqfoea70.6(L)12.0 - 15.0 g/dL06/22/2025 5:44 AM [facility] ([facility])Nedjzupxcn71.3(L) 36.0 - 45.0 %06/22/2025 5:44 AM [facility] ([facility])MCV94.182.0 - 98.0 fL06/22/2025 5:44 AM [facility] ([facility])MCH30.927.0 - 33.0 pg 06/22/2025 5:44 AM [facility] ([facility])MCHC32.932.0 - 35.0 g/dL 06/22/2025 5:44 AM [facility] ([facility])RDW15.2(H)11.5 - 15.0 % 06/22/2025 5:44 AM [facility] ([facility])Kzkixxemj344170 - 400 10*3/uL 06/22/2025 5:44 AM [facility] ([facility])Specimen (Source)Anatomical Location / LateralityCollection Method / VolumeCollection TimeReceived Time BloodVenous blood specimen / UnknownVenipuncture / Lzgbeoh8706/22/2025 5:01 AM EDT1 5:23 AM EDT Narrative Authorizing ProviderResult TypeResult StatusAndrew Jerome PA-CLAB BLOOD ORDERABLESFinal ResultPerforming OrganizationAddressCity/State/ZIP CodePhone Number [facility] ([facility]) [address] [place] [address] * Basic metabolic panel (06/22/2025 5:01 AM EDT)ComponentValueRef RangeTest MethodAnalysis TimePerformed AtPathologist AbrzayzpnEmshun313452 - 145 mmol/L 06/22/2025 5:52 AM [facility] ([facility])Potassium3.73.5 - 5.1 mmol/L 06/22/2025 5:52 AM [facility] ([facility])Vandhgpa03338 - 107 mmol/L 06/22/2025 5:52 AM [facility] ([facility])NF63311 - 31 mmol/L1 5:52 AM [facility] ([facility])HPD793 - 25 mg/dL06/22/2025 5:52 AM EDT [facility] ([facility])Creatinine0.720.60 - 1.20 mg/dL06/22/2025 5:52 AM [facility] ([facility])Eephwrr2173 - 100 mg/dL06/22/2025 5:52 AM [facility] ([facility])Calcium9.38.6 - 10.3 mg/dL06/22/2025 5:52 AM [facility] ([facility])Anion Gap97 - 20 mmol/L1 5:52 AM [facility] ([facility])eGFR82.9>60.0 mL/min/1.73m* 5:52 AM [facility] ([facility])Comment:The [facility]???s estimated glomerular filtration rate (eGFR) will no longer include consideration of race in its calculation. The National Kidney Foundation???s eGFR Task Force developed new recommendations for the estimation of the glomerular filtration rate in the [place] They recommend immediate implementation of the new equation refit without the race variable in all laboratories because the calculation does not include race. In addition to not including race in the calculation and reporting, it included diversity in its development, and has acceptable performance characteristics and potential consequences that do not disproportionately affect any one group of ind ividuals.BUN/Creatinine Ratio29. 5:52 AM [facility] ([facility])Specimen (Source)Anatomical Location / LateralityCollection Method / VolumeCollection TimeReceived TimeBloodVenous blood specimen / Unknown Venipuncture / Acjcesa4906/22/2025 5:01 AM EDT1 5:23 AM EDT Narrative Authorizing ProviderResult TypeResult StatusAndrew Jerome PA-KRISTIE BLOOD ORDERABLESFinal ResultPerforming OrganizationAddressCity/State/ZIP CodePhone Number [facility] ([facility]) [address] [place] [address] * Anti-Xa (Heparin Level) (06/21/2025 11:15 PM EDT)ComponentValueRef RangeTest MethodAnalysis TimePerformed AtPathologist SignatureAnti-Xa (Heparin)0.340.3 - 0.7 IU/mL06/22/2025 12:09 AM [facility] ([facility])Comment:Rivaroxaban and Apixaban will interfere with the anti Xa assay used to monitor UFH and LMWH.Specimen (Source)Anatomical Location / LateralityCollection Method / VolumeCollection TimeReceived TimeBloodVenous blood specimen / Unknown Venipuncture / Aurrubt6706/21/2025 11:15 PM EDT1 11:42 PM EDT Narrative Authorizing ProviderResult TypeResult StatusAndrew Jerome PA-CLAB BLOOD ORDERABLESFinal ResultPerforming OrganizationAddressCity/State/ZIP CodePhone Number [facility]) [address] [place] [phone] * (ABNORMAL) High Sensitivity Troponin I (06/21/2025 11:15 PM EDT)ComponentValue Ref RangeTest MethodAnalysis TimePerformed AtPathologist SignatureHigh Sensitivity Troponin I94(HH)<15 ng/L1 12:46 AM [facility] ([facility])Specimen (Source)Anatomical Location / LateralityCollection Method / VolumeCollection TimeReceived TimeBloodVenous blood specimen / Unknown Venipuncture / Lkyskgq5606/21/2025 11:15 PM EDT1 11:43 PM EDT Narrative Authorizing ProviderResult TypeResult StatusAndelmwood Jerome PA-CLAB BLOOD ORDERABLESFinal ResultPerforming OrganizationAddressCity/State/ZIP CodePhone Number [facility] ([facility]) [address] [place] [address] * (ABNORMAL) Anti-Xa (Heparin Level) (06/21/2025 5:07 PM EDT)ComponentValueRef RangeTest MethodAnalysis TimePerformed AtPathologist SignatureAnti-Xa (Heparin)0.16(LL)0.3 - 0.7 IU/mL06/21/2025 6:04 PM [facility] ([facility])Comment:Rivaroxaban and Apixaban will interfere with the anti Xa assay used to monitor UFH and LMWH.Specimen (Source)Anatomical Location / LateralityCollection Method / VolumeCollection TimeReceived TimeBloodVenous blood specimen / UnknownVenipuncture / Hoqzdao9506/21/2025 5:07 PM EDT1 5:28 PM EDT Narrative Authorizing ProviderResult TypeResult StatusAndrew Jerome PA-CLAB BLOOD ORDERABLESFinal ResultPerforming OrganizationAddressCity/State/ZIP CodePhone Number [facility]) [address] [place] [address] * (ABNORMAL) High Sensitivity Troponin I (06/21/2025 5:07 PM EDT)ComponentValue Ref RangeTest MethodAnalysis TimePerformed AtPathologist SignatureHigh Sensitivity Troponin I124(HH)<15 ng/L1 6:02 PM [facility])Specimen (Source)Anatomical Location / LateralityCollection Method / VolumeCollection TimeReceived TimeBloodVenous blood specimen / Unknown Venipuncture / Hhxbrjf2506/21/2025 5:07 PM EDT1 5:31 PM EDT Narrative Authorizing ProviderResult TypeResult StatusAndrew Jerome PA-CLAB BLOOD ORDERABLESFinal ResultPerforming OrganizationAddressCity/State/ZIP CodePhone Number [facility]) [address] [place] [address] * (ABNORMAL) High Sensitivity Troponin I (06/21/2025 11:43 AM EDT)ComponentValue Ref RangeTest MethodAnalysis TimePerformed AtPathologist SignatureHigh Sensitivity Troponin I168(HH)<15 ng/L1 12:43 PM [facility])Specimen (Source)Anatomical Location / LateralityCollection Method / VolumeCollection TimeReceived TimeBloodVenous blood specimen / Unknown Venipuncture / Qelxris7906/21/2025 11:43 AM EDT1 11:57 AM EDT Narrative Authorizing ProviderResult TypeResult StatusAndrew Jerome PA-CLAB BLOOD ORDERABLESFinal ResultPerforming OrganizationAddressCity/State/ZIP CodePhone Number [facility]) [address] [place] [address] * aPTT - baseline (06/21/2025 11:43 AM EDT)ComponentValueRef RangeTest Method Analysis TimePerformed AtPathologist EdzqhuiiziNGL55.425.0 - 35.0 Seconds 06/21/2025 1:18 PM [facility] ([place])Comment:Clinical significance of the APTT is questionable in the presence of heparin.Specimen (Source) Anatomical Location / LateralityCollection Method / VolumeCollection Time Received TimeBloodVenous blood specimen / UnknownVenipuncture / Unknown 06/21/2025 11:43 AM EDT1 11:57 AM EDT Narrative Authorizing ProviderResult TypeResult StatusAndrew Jerome PA-CLAB BLOOD ORDERABLESFinal ResultPerforming OrganizationAddressCity/State/ZIP CodePhone Number [facility] ([place]) [address] [place] [address] * ECG 12 lead (06/21/2025 11:36 AM EDT)ComponentValueRef RangeTest Method Analysis TimePerformed AtPathologist SignatureVentricular Awaz50PHNUX MUSE Atrial Hfgy32PRZCZ MUSEPR Gmbtecxh982fxDO MUSEQRS QPYPXQHP248ckXK MUSEQT Gqgpzakp545jzDS MUSEQTC CALCULATION(BAZETT)476msGE MUSEP Cabk71uuvsksiWM MUSE R-Umer77onrjmjaTH MUSET Wave Rtjo10cjzqtkoRW MUSESpecimen (Source)Anatomical Location / LateralityCollection Method / VolumeCollection TimeReceived Time 06/21/2025 11:14 AM EDT1 1:20 PM EDT Impressions GE MUSE - 06/21/2025 1:21 PM EDT Sinus rhythm with Premature atrial complexes Possible Left atrial enlargement Right bundle branch block Abnormal ECG No previous ECGs available Confirmed by Bautista Knox ([id number]) on 06/21/2025 1:20:56 PM Narrative Procedure Note Bautista Knox MD - 06/21/2025 IMPRESSION: Sinus rhythm with Premature atrial complexes Possible Left atrial enlargement Right bundle branch block Abnormal ECG No previous ECGs available Confirmed by Bautista Knox ([id number]) on 06/21/2025 1:20:56 PM Authorizing ProviderResult TypeResult StatusAndrew Jerome PA-CECG ORDERABLESFinal ResultPerforming OrganizationAddressCity/State/ZIP CodePhone Number GE MUSE * COMPLETE ECHO (TTE) (06/21/2025 11:01 AM EDT)Anatomical RegionLaterality ModalityOtherSpecimen (Source)Anatomical Location / LateralityCollection Method / VolumeCollection TimeReceived Time06/21/2025 10:38 AM EDT Narrative 06/22/2025 10:12 PM EDT 1 [facility] Heart Station [address] [place] [address] [phone] (fax) Echocardiogram-[facility] Name: ALEKSANDR SANCHEZ Study Date: 06/21/2025 10:38 AM B/P: 150 mmHg/67 mmHg HR: Date of : 1940 Location: [facility] Height: 60 in. Age: 84 year(s) Patient Room: 3161 Weight: 94 lb. Gender: Female Patient Status: InPt BSA: 1.35 m2 Indication: Dyspnea Examination: Echocardiogram (Complete) Image Quality: Fair Patient Consent: Procedure explained to patient Conclusions Left Ventricle: The left ventricle is normal size. Global left ventricular systolic function is normal. The EF is 55 % visually. Left ventricular wall thickness is normal. No regional wall motion abnormality. Right Ventricle: The right ventricle is enlarged. Normal right ventricular systolic function. Doppler studies suggest moderately elevated right sided pressures (elevated pulmonary pressure). Left Atrium: The left atrium is severely enlarged. IAS: There is a suggestion of an atrial septal defect. 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 Mitral Valve: Moderate to severe mitral regurgitation. Tricuspid Valve: Normal tricuspid valve. Moderate to severe tricuspid regurgitation. Overall Conclusions: A transesophageal echocardiogram is recommended for better assessment. Measurements Left Ventricle Label Value Normal Value LVOTd 2 cm (18cm - 20cm) LVOT VTI 13 cm (18cm - 22cm) LVOT PGmax 2 mmHg LVEF visual 55 % LVDd, 2D 4.62 cm (3.9cm - 5.3cm) LVDs, 2D 3.15 cm (2.1cm - 4cm) IVSd, 2D 0.74 cm (0.6cm - 1.1cm) LVPWd, 2D 0.99 cm (0.6cm - 0.9cm) LV Mass, 2D ASE 131.59 g LV Mass Index, 2D ASE 97.5 g/m?? (44g/m?? - 88.4g/m??) RWT, MM 0.43 (0 - 0.42) LVSVI, 2D 43.7 ml/m2 LVOT PGmean 1 mmHg LVSV_LVOT 41 ml Right Ventricle Label Value Normal Value RVDd, 2D 3.75 cm (1.9cm - 3.8cm) TAPSE 2.11 cm Left Atrium Label Value Normal Value LA Volume, BP 57 ml (22ml - 52ml) LADs, 2D 3.2 cm (2.7cm - 3.8cm) LAESV index, BP 42.2 ml/m?? Right Atrium Label Value Normal Value RA Area 16.2 cm?? Aortic Valve Label Value Normal Value AV DVI 0.59 AV VTI 22.1 cm Mitral Valve Label Value Normal Value MV E Vmax 0.56 m/s MV A Vmax 0.8 m/s MV E/A 0.7 MV E/E' lateral 9.3 MV E' lateral 0.06 m/s Tricuspid Valve Label Value Normal Value RA Pressure 8 mmHg RVSP 49 mmHg TR Vmax 3.22 m/s Aorta Label Value Normal Value AoRoot, 2D 2.9 cm (1.4cm - 3.8cm) Great Vessels Label Value Normal Value IVC 1.3 cm (1.2cm - 2.3cm) Valvular Assessment LVOT 0.7 - 1.1 m/sec Aortic Valve 1.0 - 1.7 m/sec Mitral Valve 0.6 - 1.3 m/sec Tricuspid Valve 0.3 - 0.7 m/sec Pulmonic Valve 0.6 - 0.9 m/sec Regurgitation Trivial ModSev Mod-Sev No Max Velocity 0.71 m/sec 1.20 m/s 0.56 m/sec 1.40 m/s Max Gradient 6.00 mmHg 8.00 mmHg Mean Gradient 3.00 mmHg Valve Area 1.9 cm?? Findings Left Ventricle: The left ventricle is normal size. Global left ventricular systolic function is normal. The EF is 55 % visually. Left ventricular wall thickness is normal. No regional wall motion abnormality. Right Ventricle: The right ventricle is enlarged. Normal right ventricular systolic function. Doppler studies suggest moderately elevated right sided pressures (elevated pulmonary pressure). Left Atrium: The left atrium is severely enlarged. IAS: There is a suggestion of an atrial septal defect. 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 The right atrium is severely enlarged. Mitral Valve: There is nonspecific thickening of the mitral valve leaflet. Moderate to severe mitral regurgitation. Aortic Valve: Focal aortic cusp thickening is noted. Trivial aortic valve regurgitation. Tricuspid Valve: Normal tricuspid valve. Moderate to severe tricuspid regurgitation. Pulmonic Valve: Normal pulmonary valve. No pulmonary regurgitation. Aorta: The aortic root exhibits normal size. Great Vessels: IVC: Normal size and course of the IVC. Pericardium: No pericardial effusion. The Attending Physician has personally reviewed the examination Procedure Staff Reading Group: [facility] Hand Stemmer: Sara Mccarthy RDCS ??Ordering Physician: DERICK CANO ?? Procedure Note Varinder Cruz MD - 06/22/2025 1 1 [facility] Heart Station [address] [place] [address] [phone] (fax) Echocardiogram-[facility] Name: ALEKSANDR SANCHEZ Study Date: 06/21/2025 10:38 AM B/P: 150 mmHg/67 mmHg HR: Date of : 1940 Location: [facility] Height: 60 in. Age: 84 year(s) Patient Room: 3161 Weight: 94 lb. Gender: Female Patient Status: InPt BSA: 1.35 m2 Indication: Dyspnea Examination: Echocardiogram (Complete) Image Quality: Fair Patient Consent: Procedure explained to patient Conclusions Left Ventricle: The left ventricle is normal size. Global left ventricular systolic function is normal. The EF is 55 % visually. Left ventricular wall thickness is normal. No regional wall motion abnormality. Right Ventricle: The right ventricle is enlarged. Normal right ventricular systolic function. Doppler studies suggest moderately elevated right sided pressures (elevated pulmonary pressure). Left Atrium: The left atrium is severely enlarged. IAS: There is a suggestion of an atrial septal defect. 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 Mitral Valve: Moderate to severe mitral regurgitation. Tricuspid Valve: Normal tricuspid valve. Moderate to severe tricuspid regurgitation. Overall Conclusions: A transesophageal echocardiogram is recommended for better assessment. Measurements Left Ventricle Label Value Normal Value LVOTd 2 cm (18cm - 20cm) LVOT VTI 13 cm (18cm - 22cm) LVOT PGmax 2 mmHg LVEF visual 55 % LVDd, 2D 4.62 cm (3.9cm - 5.3cm) LVDs, 2D 3.15 cm (2.1cm - 4cm) IVSd, 2D 0.74 cm (0.6cm - 1.1cm) LVPWd, 2D 0.99 cm (0.6cm - 0.9cm) LV Mass, 2D ASE 131.59 g LV Mass Index, 2D ASE 97.5 g/m?? (44g/m?? - 88.4g/m??) RWT, MM 0.43 (0 - 0.42) LVSVI, 2D 43.7 ml/m2 LVOT PGmean 1 mmHg LVSV_LVOT 41 ml Right Ventricle Label Value Normal Value RVDd, 2D 3.75 cm (1.9cm - 3.8cm) TAPSE 2.11 cm Left Atrium Label Value Normal Value LA Volume, BP 57 ml (22ml - 52ml) LADs, 2D 3.2 cm (2.7cm - 3.8cm) LAESV index, BP 42.2 ml/m?? Right Atrium Label Value Normal Value RA Area 16.2 cm?? Aortic Valve Label Value Normal Value AV DVI 0.59 AV VTI 22.1 cm Mitral Valve Label Value Normal Value MV E Vmax 0.56 m/s MV A Vmax 0.8 m/s MV E/A 0.7 MV E/E' lateral 9.3 MV E' lateral 0.06 m/s Tricuspid Valve Label Value Normal Value RA Pressure 8 mmHg RVSP 49 mmHg TR Vmax 3.22 m/s Aorta Label Value Normal Value AoRoot, 2D 2.9 cm (1.4cm - 3.8cm) Great Vessels Label Value Normal Value IVC 1.3 cm (1.2cm - 2.3cm) Valvular Assessment LVOT 0.7 - 1.1 m/sec Aortic Valve 1.0 - 1.7 m/sec Mitral Valve 0.6 - 1.3 m/sec Tricuspid Valve 0.3 - 0.7 m/sec Pulmonic Valve 0.6 - 0.9 m/sec Regurgitation Trivial ModSev Mod-Sev No Max Velocity 0.71 m/sec 1.20 m/s 0.56 m/sec 1.40 m/s Max Gradient 6.00 mmHg 8.00 mmHg Mean Gradient 3.00 mmHg Valve Area 1.9 cm?? Findings Left Ventricle: The left ventricle is normal size. Global left ventricular systolic function is normal. The EF is 55 % visually. Left ventricular wall thickness is normal. No regional wall motion abnormality. Right Ventricle: The right ventricle is enlarged. Normal right ventricular systolic function. Doppler studies suggest moderately elevated right sided pressures (elevated pulmonary pressure). Left Atrium: The left atrium is severely enlarged. IAS: There is a suggestion of an atrial septal defect. 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 The right atrium is severely enlarged. Mitral Valve: There is nonspecific thickening of the mitral valve leaflet. Moderate to severe mitral regurgitation. Aortic Valve: Focal aortic cusp thickening is noted. Trivial aortic valve regurgitation. Tricuspid Valve: Normal tricuspid valve. Moderate to severe tricuspid regurgitation. Pulmonic Valve: Normal pulmonary valve. No pulmonary regurgitation. Aorta: The aortic root exhibits normal size. Great Vessels: IVC: Normal size and course of the IVC. Pericardium: No pericardial effusion. The Attending Physician has personally reviewed the examination Procedure Staff Reading Group: [facility] Hand Stemmer: Sara Mccarthy RDCS Ordering Physician: DERICK CANO Authorizing ProviderResult TypeResult StatusAndfrancisco javier Cano PA-CCV ECHO PROCEDURES Final Result * XR chest 1 view (06/21/2025 10:24 AM EDT)Anatomical RegionLateralityModality ChestComputed RadiographySpecimen (Source)Anatomical Location / Laterality Collection Method / VolumeCollection TimeReceived Time06/21/2025 10:35 AM EDT Impressions 06/21/2025 10:35 AM EDT No acute pulmonary process. Electronically signed: Blayne Dwyer. Narrative 06/21/2025 10:35 AM EDT XR CHEST 1 VIEW 06/21/2025 10:17 AM CLINICAL INDICATIONS: Shortness of breath COMPARISON: None FINDINGS: Cardiac silhouette and pulmonary vessels are within normal limits. No pneumothorax. No infiltrate or pleural effusion. Procedure Note Blayne Dwyer MD - 06/21/2025 XR CHEST 1 VIEW 06/21/2025 10:17 AM CLINICAL INDICATIONS: Shortness of breath COMPARISON: None FINDINGS: Cardiac silhouette and pulmonary vessels are within normallimits. No pneumothorax. No infiltrate or pleural effusion. IMPRESSION: No acute pulmonary process. Electronically signed: Blayne Dwyer. Authorizing ProviderResult TypeResult StatusAndfrancisco javier ALEGRIA-CIMG XR PROCEDURES Final Result * (ABNORMAL) B-type natriuretic peptide (06/21/2025 10:15 AM EDT)ComponentValue Ref RangeTest MethodAnalysis TimePerformed AtPathologist JaopuckeiVDX264(H)0 - 100 pg/mL06/21/2025 10:52 AM [facility] ([facility])Specimen (Source) Anatomical Location / LateralityCollection Method / VolumeCollection Time Received TimeBloodVenous blood specimen / UnknownVenipuncture / Unknown 06/21/2025 10:15 AM EDT1 10:24 AM EDT Narrative Authorizing ProviderResult TypeResult StatusAndfrancisco javier Cano PA-CLAB BLOOD ORDERABLESFinal ResultPerforming OrganizationAddressCity/State/ZIP CodePhone Number [facility] ([facility]) [address] [place] [address] * (ABNORMAL) CBC auto differential (06/21/2025 10:15 AM EDT)ComponentValueRef RangeTest MethodAnalysis TimePerformed AtPathologist SignatureAuto WBC11.80(H) 4.00 - 10.60 10*3/uL06/21/2025 10:39 AM [facility] ([facility])RBC4.17 3.80 - 5.00 10*6/uL06/21/2025 10:39 AM [facility] ([facility])Hemoglobin 12.812.0 - 15.0 g/dL06/21/2025 10:39 AM [facility] ([facility]) Nmnmibgrvl73.036.0 - 45.0 %06/21/2025 10:39 AM [facility] ([facility]) MCV93.582.0 - 98.0 fL06/21/2025 10:39 AM [facility] ([facility])MCH30.7 27.0 - 33.0 pg06/21/2025 10:39 AM [facility] ([facility])MCHC32.832.0 - 35.0 g/dL06/21/2025 10:39 AM [facility] ([facility])RDW15.2(H)11.5 - 15.0 %06/21/2025 10:39 AM [facility] ([facility])Neutrophils %64.540.0 - 72.0 %06/21/2025 10:39 AM [facility] ([facility])Lymphocytes %26.420.0 - 45.0 %06/21/2025 10:39 AM [facility] ([facility])Monocytes %6.85.0 - 12.0 %06/21/2025 10:39 AM [facility] ([facility])Eosinophils %1.30.0 - 6.0 %06/21/2025 10:39 AM [facility] ([facility])Basophils %0.70.0 - 1.0 %06/21/2025 10:39 AM [facility] ([facility])Neutrophils Absolute7.61(H) 1.60 - 7.60 10*3/uL06/21/2025 10:39 AM [facility] ([facility]) Lymphocytes Absolute3.121.20 - 4.00 10*3/uL06/21/2025 10:39 AM [facility] ([facility])Monocytes Absolute0.800.10 - 1.00 10*3/uL06/21/2025 10:39 AM [facility] ([facility])Eosinophils Absolute0.150.00 - 0.50 10*3/uL 06/21/2025 10:39 AM [facility] ([facility])Basophils Absolute0.080.00 - 0.20 10*3/uL06/21/2025 10:39 AM [facility] ([facility])Rsftsjchr510214 - 400 10*3/uL06/21/2025 10:39 AM [facility] ([facility])nRBC %0.00 % 06/21/2025 10:39 AM [facility] ([facility])Immature Granulocytes %0.30.0 - 1.0 %06/21/2025 10:39 AM [facility] ([facility])Immature Granulocytes Absolute0.040.00 - 0.20 10*3/uL06/21/2025 10:39 AM [facility] ([facility])Specimen (Source)Anatomical Location / LateralityCollection Method / VolumeCollection TimeReceived TimeBloodVenous blood specimen / Unknown Venipuncture / Bkxoyta5306/21/2025 10:15 AM EDT1 10:24 AM EDT Narrative Authorizing ProviderResult TypeResult StatusAndrew Jerome PA-CLAB BLOOD ORDERABLESFinal ResultPerforming OrganizationAddressCity/State/ZIP CodePhone Number [facility]) [address] [place] [address] * Magnesium (06/21/2025 10:15 AM EDT)ComponentValueRef RangeTest MethodAnalysis TimePerformed AtPathologist SignatureMagnesium2.11.9 - 2.7 mg/dL06/21/2025 10:51 AM [facility] ([facility])Specimen (Source)Anatomical Location / LateralityCollection Method / VolumeCollection TimeReceived TimeBloodVenous blood specimen / UnknownVenipuncture / Ayqsuzv9906/21/2025 10:15 AM EDT 06/21/2025 10:24 AM EDT Narrative Authorizing ProviderResult TypeResult StatusAndrew Jerome PA-CLAB BLOOD ORDERABLESFinal ResultPerforming OrganizationAddressCity/State/ZIP CodePhone Number [facility]) [address] [place] [address] * (ABNORMAL) HIGH SENSITIVITY TROPONIN I (06/21/2025 10:15 AM EDT)ComponentValue Ref RangeTest MethodAnalysis TimePerformed AtPathologist SignatureHigh Sensitivity Troponin I227(HH)<15 ng/L1 10:58 AM [facility] ([facility])Specimen (Source)Anatomical Location / LateralityCollection Method / VolumeCollection TimeReceived TimeBloodVenous blood specimen / Unknown Venipuncture / Uhbvxob1206/21/2025 10:15 AM EDT1 10:24 AM EDT Narrative Authorizing ProviderResult TypeResult StatusAndrew Jerome PA-CLAB BLOOD ORDERABLESFinal ResultPerforming OrganizationAddressCity/State/ZIP CodePhone Number [facility] ([facility]) [address] [place] [address] * (ABNORMAL) Basic metabolic panel (06/21/2025 10:15 AM EDT)ComponentValueRef RangeTest MethodAnalysis TimePerformed AtPathologist GrysfvmndQgcvje846453 - 145 mmol/L1 10:51 AM [facility] ([facility])Potassium3.83.5 - 5.1 mmol/L1 10:51 AM [facility] ([facility])Pollwrpx90332 - 107 mmol/L1 10:51 AM [facility] ([facility])BN70891 - 31 mmol/L 06/21/2025 10:51 AM [facility] ([facility])BUN38(H)7 - 25 mg/dL 06/21/2025 10:51 AM [facility] ([facility])Creatinine0.990.60 - 1.20 mg/dL06/21/2025 10:51 AM [facility] ([facility])Mbkxndb8220 - 100 mg/dL 06/21/2025 10:51 AM [facility] ([facility])Calcium9.58.6 - 10.3 mg/dL 06/21/2025 10:51 AM [facility] ([facility])Anion Apr811 - 20 mmol/L 06/21/2025 10:51 AM [facility] ([facility])eGFR56.6(L)>60.0 mL/min/1.73m* 10:51 AM [facility] ([place])Comment:The [facility]???s estimated glomerular filtration rate (eGFR) will no longer include consideration of race in its calculation. The [employer]???s eGFR Task Force developed new recommendations for the estimation of the glomerular filtration rate in the [place] They recommend immediate implementation of the new equation refit without the race variable in all laboratories because the calculation does not include race. In addition to not including race in the calculation and reporting, it included diversity in its development, and has acceptable performance characteristics and potential consequences that do not disproportionately affect any one group of individuals.BUN/Creatinine Ratio38. 10:51 AM [facility] ([facility])Specimen (Source)Anatomical Location / LateralityCollection Method / VolumeCollection TimeReceived TimeBloodVenous blood specimen / Unknown Venipuncture / Oclgtaw5506/21/2025 10:15 AM EDT1 10:24 AM EDT Narrative Authorizing ProviderResult TypeResult StatusAndrew Jerome PA-CLAB BLOOD ORDERABLESFinal ResultPerforming OrganizationAddressCity/State/ZIP CodePhone Number [facility]) [address] [place] [address] * Lactic acid, plasma (06/21/2025 10:14 AM EDT)ComponentValueRef RangeTest MethodAnalysis TimePerformed AtPathologist SignatureLactate1.40.5 - 2.2 mmol/L 06/21/2025 10:47 AM [facility])Specimen (Source)Anatomical Location / LateralityCollection Method / VolumeCollection TimeReceived Time BloodVenous blood specimen / UnknownVenipuncture / Qcnpqxu1606/21/2025 10:14 AM EDT1 10:22 AM EDT Narrative Authorizing ProviderResult TypeResult StatusAndrew Jerome PA-CLAB BLOOD ORDERABLESFinal ResultPerforming OrganizationAddressCity/State/ZIP CodePhone Number [facility]) [address] [place] [address] documented in this encounter Visit Diagnoses Diagnosis Chest pain- Primary Unspecified chest pain Chest pain Unspecified chest pain NSTEMI (non-ST elevated myocardial infarction) ([facility]) Acute myocardial infarction, subendocardial infarction, episode of care unspecified Nonrheumatic mitral valve regurgitation Nonrheumatic tricuspid valve regurgitation Chest pain, unspecified type 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 Chronic diastolic heart failure ([facility]) Chronic diastolic heart failure Paroxysmal supraventricular tachycardia COPD (chronic obstructive pulmonary disease) ([facility]) Chronic airway obstruction, not elsewhere classified Benign essential hypertension Essential hypertension, benign Acute on chronic heart failure with preserved ejection fraction (HFpEF) ([facility]) Pulmonary HTN ([facility]) Acute hypoxic respiratory failure ([facility]) Chronic hypoxic respiratory failure, on home oxygen therapy ([facility]) NSTEMI (non-ST elevated myocardial infarction) ([facility]) Acute myocardial infarction, subendocardial infarction, episode of care unspecified Chronic diastolic heart failure ([facility]) Chronic diastolic heart failure Nonrheumatic tricuspid valve regurgitation Nonrheumatic mitral valve regurgitation Acute on chronic heart failure with preserved ejection fraction (HFpEF) ([facility]) NSTEMI (non-ST elevated myocardial infarction) ([facility]) Acute myocardial infarction, subendocardial infarction, episode of care unspecified documented in this encounter Admitting Diagnoses Diagnosis Chest pain Unspecified chest pain documented in this encounter Administered Medications Medication OrderMAR ActionAction DateDoseRateSite aspirin EC tablet 81 mg 81 mg, oral, Daily RT, First dose on 06/21/25 at 1015, For 99 days, Do not crush, chew, or split. Given06/24/2025 9:22 AM EDT81 twTdeaf6306/23/2025 8:43 AM EDT81 diArldx5206/22/2025 7:41 AM EDT81 mg brimonidine (Alphagan) 0.2 % ophthalmic solution 1 drop 1 drop, Both Eyes, 2 times daily RT, First dose on 06/21/25 at 2000, For 99 days Given06/24/2025 9:23 AM EDT1 nlzhTrfif37/27/2025 8:25 PM EDT1 dropGiven 06/23/2025 8:45 AM EDT1 drop clonazePAM (KlonoPIN) tablet 0.5 mg 0.5 mg, oral, Nightly, First dose on 06/21/25 at 2200, For 99 days Given06/23/2025 9:51 PM EDT0.5 heWwrdn5706/22/2025 9:11 PM EDT0.5 mgGiven 06/21/2025 9:04 PM EDT0.5 mg clopidogrel (Plavix) tablet 300 mg 300 mg, oral, Once, On Mon06/21/25 at 1400, For 1 dose Given06/21/2025 2:30 PM BOF484 mg clopidogrel (Plavix) tablet 75 mg 75 mg, oral, Daily, First dose on Mon06/22/25 at 1000, For 365 days Given06/23/2025 8:43 AM EDT75 qyLughy3706/22/2025 9:35 AM EDT75 mg fentaNYL (Sublimaze) injection As needed, Starting on Mon06/23/25 at 1042, Intraprocedure Given06/23/2025 10:44 AM EDT25 vvnJmbws06/27/2025 10:42 AM EDT25 mcg fluticasone (Flonase) nasal spray 2 spray 2 spray, Each Nostril, 2 times daily, First dose on [facility] 06/21/25 at 1015, For 99 days, Shake gently. Before first use, prime pump (press 6 times until fine spray appears). After use, clean tip and replace cap. Given06/23/2025 8:46 AM EDT2 enkjxpVtdtd99/25/2025 9:04 PM EDT2 sprays heparin (porcine) injection 5,000 Units 5,000 Units, subcutaneous, 2 times daily, First dose on Mon06/23/25 at 2200, For 99 days Given06/24/2025 9:22 AM EDT5,000 UnitsRight Upper Arm (Back)Given06/23/2025 9:52 PM EDT5,000 UnitsRight Lower Abdomen heparin infusion 100 units/mL in D5W 0-28 Units/kg/hr ?? 42.3 kg (0-11.844 mL/hr, rounded to 0-11.8 mL/hr), intravenous, Continuous, Starting on [facility] 06/21/25 at 1145, For 99 days, Cardiac/Stroke protocol - Monitor antiXa level 6 hours after rate change, then every 6 hours until therapeutic twice. While therapeutic monitor every AM., In itial Heparin rate (units/kg/hr): 15, Anti-Xa < 0.20 Maintenance Dose Adjustment (units/kg/hr): 2, Anti-Xa < 0.20 Bolus Dose (units/kg): 0, Anti-Xa 0.2-0.29 Heparin Maintenance Dose Adjustment (units/kg/hr): 1, Anti-Xa 0.3-0.7 Maintenance Dose Adjustment (units/kg/hr): 0, Anti-Xa 0.71-0.8 Maintenance Dose Adjustment (units/kg/hr): -1, Anti-Xa 0.81-0.99 Maintenance Dose Adjustment (units/kg/hr): -2, Anti-Xa 1.00 or greater = Maintenance Dose Adjustment (units/kg/hr): -2, Anti-Xa 1.0 or greater = Bolus Dose (units/kg): 0, Anti-Xa 1.0 or greater = adjust current infusion: Hold infusion for1 hour, then restart at 2 units/kg/hr below current dose., Indication: Cardiac/Stroke New Bag06/22/2025 4:29 PM EDT17 Units/kg/hr7.2 mL/hrRate/Dose Xjhvrd2206/21/2025 10:50 PM EDT17 Units/kg/hr7.2 mL/hrRate/Dose Vsmxrb8306/21/2025 6:44 PM EDT17 Units/kg/hr7.2 mL/hr latanoprost (Xalatan) 0.005 % ophthalmic solution 1 drop 1 drop, Both Eyes, Nightly, First dose on 06/21/25 at 2200, For 99 days Given06/23/2025 9:52 PM EDT1 uwnxZeknt16/26/2025 9:14 PM EDT1 dropGiven 06/21/2025 9:23 PM EDT1 drop lidocaine (Xylocaine) 2 % mouth solution Mouth/Throat, As needed, Procedure Medication, Starting on 06/23/25 at 1023, Intraprocedure Given06/23/2025 10:23 AM EDT15 mL lisinopril tablet 2.5 mg 2.5 mg, oral, Daily RT, First dose on 06/21/25 at 1015, For 99 days Given06/24/2025 9:23 AM EDT2.5 jjWxwpw1906/23/2025 8:43 AM EDT2.5 mgGiven 06/22/2025 7:41 AM EDT2.5 mg lisinopril tablet 5 mg 5 mg, oral, Daily RT, First dose (after last modification) on Mon06/25/25 at 0800, For 95 doses metoprolol tartrate (Lopressor) tablet 50 mg 50 mg, oral, 2 times daily, First dose on Mon06/21/25 at 1015, For 99 days Given06/24/2025 9:22 AM EDT50 gtBudcg2106/23/2025 9:51 PM EDT50 leGqdcw2306/23/2025 8:43 AM EDT50 mg midazolam (Versed) injection As needed, Starting on 06/23/25 at 1042, Intraprocedure Given06/23/2025 10:47 AM EDT1 xjFuqth0206/23/2025 10:44 AM EDT1 grVlyjm9306/23/2025 10:42 AM EDT1 mg mometasone-formoterol (Dulera 100) 100-5 mcg/actuation inhaler 2 puff 2 puff, inhalation, 2 times daily RT, First dose on Mon06/21/25 at 2000, Rinse mouth with water after use to reduce aftertaste and incidence of candidiasis. Do not swallow. Given06/24/2025 9:23 AM EDT2 jwndkMuxry38/27/2025 8:25 PM EDT2 puffsGiven 06/23/2025 8:44 AM EDT2 puffs ondansetron HCl (PF) (Zofran) injection 4 mg 4 mg, intravenous, Every 6 hours PRN, nausea, vomiting, Starting on Mon06/21/25 at 1006, For 99 days, Give IV if patient is unable to take orally. Administer as an IV push over 2 to 5 minutes. ondansetron ODT (Zofran-ODT) disintegrating tablet 4 mg 4 mg, oral, Every 8 hours PRN, nausea, vomiting, Starting on Mon06/21/25 at 1006, For 99 days Oxygen Therapy Routine, Device: Nasal Cannula, Flow in liters per minute: 2 Lpm Oxygen On06/22/2025 9:35 AM EDTOxygen 06/21/2025 10:15 AM EDT pantoprazole (ProtoNix) EC tablet 40 mg 40 mg, oral, Daily at 7am, First dose on Mon06/21/25 at 1430, Do not crush, chew, or split., Indication: GERD Given06/24/2025 6:23 AM EDT40 dxFkmai7406/23/2025 6:16 AM EDT40 zpRjplb7506/22/2025 6:36 AM EDT40 mg pravastatin (Pravachol) tablet 40 mg 40 mg, oral, Nightly, First dose on Mon06/21/25 at 2200, For 99 days Given06/23/2025 9:51 PM EDT40 dtIjkwx3506/22/2025 9:11 PM EDT40 rkUdyaj0006/21/2025 9:03 PM EDT40 mg sodium chloride flush 10 mL 10 mL, intravenous, Every 8 hours PRN, line care, Starting on Mon06/21/25 at 1006, For 99 days spironolactone (Aldactone) split tablet 12.5 mg 12.5 mg, oral, Daily, First dose on Mon06/24/25 at 1045, For 99 days Given06/24/2025 12:56 PM EDT12.5 mg timolol (Timoptic) 0.5 % ophthalmic solution 1 drop 1 drop, Both Eyes, 2 times daily RT, First dose on Mon06/21/25 at 2000, For 99 days Given06/24/2025 9:23 AM EDT1 alrrEszlc59/27/2025 8:25 PM EDT1 dropGiven 06/23/2025 8:45 AM EDT1 drop umeclidinium (Incruse Ellipta) 62.5 mcg/actuation inhalation 62.5 mcg 62.5 mcg (1 puff), inhalation, Daily RT, First dose on Mon06/21/25 at 1430 Given06/24/2025 9:22 AM EDT62.5 otwTzfoc90/27/2025 8:45 AM EDT62.5 mcgGiven 06/22/2025 7:42 AM EDT62.5 mcgdocumented in this encounter Active and Recently Administered Medications Times are shown in EDT.Medication Order/ aspirin EC tablet 81 mg 81 mg, oral, Daily RT, First dose on Mon06/21/25 at 1015, For 99 days, Do not crush, chew, or split. * 0741 (Given - Provider: Alireza Awad RN) * 0843 (Given - Provider: Beth Randall RN) * 0922 (Given - Provider: Beth Randall RN) brimonidine (Alphagan) 0.2 % ophthalmic solution 1 drop(Linked Group 1) 1 drop, Both Eyes, 2 times daily RT, First dose on 06/21/25 at 2000, For 99 days * 0742 (Given - Provider: Alireza Awad RN) * 1947 (Given - Provider: Alejo Donis RN) * 0845 (Given - Provider: Beth Randall RN) * 2024 (Given - Provider: Hellen Carmichael RN) * 0923 (Given - Provider: Beth Randall RN) clonazePAM (KlonoPIN) tablet 0.5 mg 0.5 mg, oral, Nightly, First dose on 06/21/25 at 2200, For 99 days * 2110 (Given - Provider: Alejo Donis RN) * 2150 (Given - Provider: Hellen Carmichael RN) clopidogrel (Plavix) tablet 75 mg (CANCELED)(Linked Group 2) 75 mg, oral, Daily, First dose on 06/22/25 at 1000, For 365 days * 0935 (Given - Provider: Alireza Awad RN) * 0843 (Given - Provider: Beth Randall RN) fluticasone (Flonase) nasal spray 2 spray 2 spray, Each Nostril, 2 times daily, First dose on 06/21/25 at 1015, For 99 days, Shake gently. Before first use, prime pump (press 6 times until fine spray appears). After use, clean tip and replace cap. * 1000 (Not Given - Provider: Alireza Awad RN - Reason: Patient/family refused) * 2199 (Not Given - Provider: Alejo Donis RN - Reason: Patient/family refused) * 0846 (Given - Provider: Beth Randall RN) * 2151 (Not Given - Provider: Hellen Carmichael RN - Reason: Patient/family refused) * 1000 (Not Given - Provider: Beth Randall RN - Reason: Patient/family refused) heparin (porcine) injection 5,000 Units 5,000 Units, subcutaneous, 2 times daily, First dose on 06/23/25 at 2200, For 99 days * 2151 (Given - Provider: Hellen Carmichael RN) * 0922 (Given - Provider: Beth Randall RN) latanoprost (Xalatan) 0.005 % ophthalmic solution 1 drop 1 drop, Both Eyes, Nightly, First dose on 06/21/25 at 2200, For 99 days * 2113 (Given - Provider: Alejo Donis RN) * 2151 (Given - Provider: Hellen Carmichael RN) lisinopril tablet 2.5 mg (CANCELED) 2.5 mg, oral, Daily RT, First dose on 06/21/25 at 1015, For 99 days * 0741 (Given - Provider: Alireza Awad RN) * 0843 (Given - Provider: Beth Randall RN) * 0923 (Given - Provider: Beth Randall RN) lisinopril tablet 5 mg 5 mg, oral, Daily RT, First dose (after last modification) on Mon06/25/25 at 0800, For 95 doses metoprolol tartrate (Lopressor) tablet 50 mg 50 mg, oral, 2 times daily, First dose on 06/21/25 at 1015, For 99 days * 0935 (Given - Provider: Alireza Awad RN) * 2110 (Given - Provider: Alejo Donis RN) * 0843 (Given - Provider: Beth Randall RN - Comment: sched for procedue) * 2150 (Given - Provider: Hellen Carmichael RN) * 0922 (Given - Provider: Beth Randall RN) mometasone-formoterol (Dulera 100) 100-5 mcg/actuation inhaler 2 puff(Linked Group 3) 2 puff, inhalation, 2 times daily RT, First dose on 06/21/25 at 2000, Rinse mouth with water after use to reduce aftertaste and incidence of candidiasis. Do not swallow. * 0742 (Given - Provider: Alireza Awad RN) * 194 (Given - Provider: Alejo Donis RN) * 0844 (Given - Provider: Beth Randall RN) * 2024 (Given - Provider: Hellen Carmichael RN) * 09 (Given - Provider: Beth Randall RN) Oxygen Therapy Routine, Device: Nasal Cannula, Flow in liters per minute: 2 Lpm * 0935 (Oxygen On - Provider: Alireza Awad RN) * 0935 (Due: Stopped - Provider: Alireza Awad RN) pantoprazole (ProtoNix) EC tablet 40 mg 40 mg, oral, Daily at 7am, First dose on Mon06/21/25 at 1430, Do not crush, chew, or split., Indication: GERD * 0636 (Given - Provider: Juana Person RN) * 0616 (Given - Provider: Alejo Donis RN) * 0623 (Given - Provider: Hellen Carmichael RN) pravastatin (Pravachol) tablet 40 mg 40 mg, oral, Nightly, First dose on Mon06/21/25 at 2200, For 99 days * 2110 (Given - Provider: Alejo Donis RN) * 2150 (Given - Provider: Hellen Carmichael RN) spironolactone (Aldactone) split tablet 12.5 mg 12.5 mg, oral, Daily, First dose on Mon06/24/25 at 1045, For 99 days * 1256 (Given - Provider: Beth Randall, ZOFIA) timolol (Timoptic) 0.5 % ophthalmic solution 1 drop(Linked Group 1) 1 drop, Both Eyes, 2 times daily RT, First dose on 06/21/25 at 2000, For 99 days * 0744 (Given - Provider: Alireza Awad RN) * 194 (Given - Provider: Alejo Donis RN) * 0845 (Given - Provider: Beth Randall, ZOFIA) * 2024 (Given - Provider: Hellen Carmichael RN) * 0923 (Given - Provider: Beth Randall, ZOFIA) umeclidinium (Incruse Ellipta) 62.5 mcg/actuation inhalation 62.5 mcg(Linked Group 3) 62.5 mcg (1 puff), inhalation, Daily RT, First dose on 06/21/25 at 1430 * 0742 (Given - Provider: Alireza Awad RN) * 0845 (Given - Provider: Beth Randall RN) * 0922 (Given - Provider: Beth Randall RN) Medication Order// heparin infusion 100 units/mL in D5W (CANCELED) 0-28 Units/kg/hr ?? 42.3 kg (0-11.844 mL/hr, rounded to 0-11.8 mL/hr), intravenous, Continuous, Starting on 06/21/25 at 1145, For 99 days, Cardiac/Stroke protocol - Monitor antiXa level 6 hours after rate change, then every 6 hours until therapeutic twice. While therapeutic monitor every AM., In itial Heparin rate (units/kg/hr): 15, Anti-Xa < 0.20 Maintenance Dose Adjustment (units/kg/hr): 2, Anti-Xa < 0.20 Bolus Dose (units/kg): 0, Anti-Xa 0.2-0.29 Heparin Maintenance Dose Adjustment (units/kg/hr): 1, Anti-Xa 0.3-0.7 Maintenance Dose Adjustment (units/kg/hr): 0, Anti-Xa 0.71-0.8 Maintenance Dose Adjustment (units/kg/hr): -1, Anti-Xa 0.81-0.99 Maintenance Dose Adjustment (units/kg/hr): -2, Anti-Xa 1.00 or greater = Maintenance Dose Adjustment (units/kg/hr): -2, Anti-Xa 1.0 or greater = Bolus Dose (units/kg): 0, Anti-Xa 1.0 or greater = adjust current infusion: Hold infusion for1 hour, then restart at 2 units/kg/hr below current dose., Indication: Cardiac/Stroke * 0657 (Handoff - Provider: Juana Person RN) * 1629 (New Bag - Provider: lAireza Awad, ZOFIA) * 1902 (Handoff - Provider: Alireza Awad, RN) * 0714 (Handoff - Provider: Beth Randall RN) * 1110 (Stopped - Provider: Irma Dash RN - Comment: Per Dr. 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) Medication Order// acetaminophen (Tylenol) tablet 650 mg 650 mg, oral, Every 6 hours PRN, mild pain (1-3 pain score), (1-3), Starting on Mon06/21/25 at 1006, For 99 days adenosine (Adenocard) (CANCELED) Continuous PRN, Starting on Mon06/23/25 at 1224, Intraprocedure * 1224 (New Bag - Provider: Irma Dash RN) * 1228 (Stopped - Provider: Irma Dash RN) albuterol 2.5 mg /3 mL (0.083 %) nebulizer solution 2.5 mg 2.5 mg, nebulization, Every 6 hours PRN, wheezing, Starting on Mon06/21/25 at 1012, For 99 days fentaNYL (Sublimaze) injection (COMPLETED) As needed, Starting on Mon06/23/25 at 1042, Intraprocedure * 1042 (Given - Provider: Nkechi Garcia RN) * 1044 (Given - Provider: Nkechi Garcia RN) heparin (porcine) injection (CANCELED) As needed, Starting on Mon06/23/25 at 1201, Intraprocedure * 1201 (Given - Provider: Irma Dash RN) * 1209 (Given - Provider: Irma Dash RN) * 1216 (Given - Provider: Irma Dash RN) heparin irrigation 2 units/mL in NS (CANCELED) As needed, Starting on Mon06/23/25 at 1123, Intraprocedure * 1123 (Given - Provider: Nestor Beyer MD) iodixanol (VISIPaque) 320 mg iodine/mL injection (CANCELED) As needed, Starting on Mon06/23/25 at 1231, Intraprocedure * 1231 (Given - Provider: Nestor Beyer MD) lidocaine (PF) (Xylocaine) 10 mg/mL (1 %) injection (CANCELED) As needed, Starting on Mon06/23/25 at 1124, Intraprocedure * 1124 (Given - Provider: Nestor Beyer MD) lidocaine (Xylocaine) 2 % mouth solution (COMPLETED) Mouth/Throat, As needed, Procedure Medication, Starting on Mon06/23/25 at 1023, Intraprocedure * 1023 (Given - Provider: Nkechi Garcia, ZOFIA) melatonin tablet 5 mg 5 mg, oral, Nightly PRN, sleep, Starting on 06/21/25 at 1006, For 99 days midazolam (Versed) injection (COMPLETED) As needed, Starting on Mon06/23/25 at 1042, Intraprocedure * 1042 (Given - Provider: Nkechi Garcia, RN) * 1044 (Given - Provider: Nkechi Garcia, ZOFIA) * 1047 (Given - Provider: Nkechi Garcia RN) nitroglycerin 100 mcg/mL 25ml CVL soln (CANCELED) As needed, Starting on Mon06/23/25 at 1159, Intraprocedure * 1159 (Given - Provider: Nestor Beyer MD) ondansetron HCl (PF) (Zofran) injection 4 mg(Linked Group 4) 4 mg, intravenous, Every 6 hours PRN, nausea, vomiting, Starting on 06/21/25 at 1006, For 99 days, Give IV if patient is unable to take orally. Administer as an IV push over 2 to 5 minutes. ondansetron ODT (Zofran-ODT) disintegrating tablet 4 mg(Linked Group 4) 4 mg, oral, Every 8 hours PRN, nausea, vomiting, Starting on 06/21/25 at 1006, For 99 days sodium chloride 0.9 % infusion (COMPLETED) Continuous PRN, Starting on Mon06/23/25 at 1123, Intraprocedure * 1123 (Restarted - Provider: Irma Dash RN) sodium chloride flush 10 mL(Linked Group 5) 10 mL, intravenous, Every 8 hours PRN, line care, Starting on 06/21/25 at 1006, For 99 days verapamil (Isoptin) injection (CANCELED) As needed, Starting on Mon06/23/25 at 1159, Intraprocedure * 1159 (Given - Provider: Nestor Beyer MD) Order Group 1: brimonidine (Alphagan) 0.2 % ophthalmic solution 1 dropJump to med 1 drop, Both Eyes, 2 times daily RT, First dose on 06/21/25 at 2000, For 99 days And timolol (Timoptic) 0.5 % ophthalmic solution 1 dropJump to med 1 drop, Both Eyes, 2 times daily RT, First dose on 06/21/25 at 2000, For 99 days Group 2: clopidogrel (Plavix) tablet 300 mg (COMPLETED) 300 mg, oral, Once, On 06/21/25 at 1400, For 1 dose And clopidogrel (Plavix) tablet 75 mg (CANCELED)Jump to med 75 mg, oral, Daily, First dose on 06/22/25 at 1000, For 365 days Group 3: mometasone-formoterol (Dulera 100) 100-5 mcg/actuation inhaler 2 puffJump to med 2 puff, inhalation, 2 times daily RT, First dose on 06/21/25 at 2000, Rinse mouth with water after use to reduce aftertaste and incidence of candidiasis. Do not swallow. And umeclidinium (Incruse Ellipta) 62.5 mcg/actuation inhalation 62.5 mcgJump to med 62.5 mcg (1 puff), inhalation, Daily RT, First dose on 06/21/25 at 1430 Group 4: ondansetron ODT (Zofran-ODT) disintegrating tablet 4 mgJump to med 4 mg, oral, Every 8 hours PRN, nausea, vomiting, Starting on 06/21/25 at 1006, For 99 days Or ondansetron HCl (PF) (Zofran) injection 4 mgJump to med 4 mg, intravenous, Every 6 hours PRN, nausea, vomiting, Starting on 06/21/25 at 1006, For 99 days, Give IV if patient is unable to take orally. Administer as an IV push over 2 to 5 minutes. Group 5: Insert peripheral IV (CANCELED) Once, On 06/21/25 at 1007, For 1 occurrence And Saline lock IV (CANCELED) Once, On 06/21/25 at 1007, For 1 occurrence And sodium chloride flush 10 mLJump to med 10 mL, intravenous, Every 8 hours PRN, line care, Starting on 06/21/25 at 1006, For 99 days documented in this encounter Care Teams Team MemberRelationshipSpecialtyStart DateEnd Date Geo Montejo DO [address] [place] [phone] [facility]CP - [facility] as of this encounter
--- OUTSIDE RECORDS SUMMARY | 2025-06-23 12:45 | XMS_ITS | Encounter Summary ---
Author Organization [facility] Address [address] [address] Care Team Providers Care Senior Systems Programmer Name Role Phone LongGeo dubon Primary Care Provider [phone] Reason for Visit * Auth/Cert (Routine)SpecialtyDiagnoses / ProceduresReferred By ContactReferred To Contact Diagnoses Chest pain chest pain Chest Pain and SOB Procedures NO CODED SERVICES Woody Barriga MD [address] [place] [address] Phone: tel: fax: [facility] [address] [place] [address] Phone: tel: fax: Referral IDStatusReasonStart DateExpiration DateVisits RequestedVisits [id number] Encounter Details DateTypeDepartmentCare Team (Latest Contact Info)Emtbpkfezac04/27/2025 1:45 PM EDT - 06/23/2025 3:00 PM EDTSurgery [facility] [address] [place] [address] Nestor Beyer MD [address] [facility] [address] [facility] [place] [address] Coronary angiography [72988 (CPT??)] Social History Tobacco UseTypesPacks/DayYears UsedDateSmoking Tobacco: FormerCigarettesPassive [...] were you homeless or living in a halfway (including now)?No06/21/2025Hunger Vital SignAnswerDate RecordedWithin the past 12 months, you worried that your food would run out before you got the money to buymore.Never true06/21/2025Ran Out of Food in the Last YearNot on file06/21/2025CommentsUnknownSex and Gender Information ValueDate RecordedSex Assigned at OyazfEwurhr41/07/2025 12:14 PM EDTLegal Sex Xkjxkg4801/28/2025 8:42 AM EDTGender ZneuzbltFwhoqr91/07/2025 12:14 PM EDTSexual OrientationHeterosexual or Otwkyyfm61/07/2025 12:14 PM EDTdocumented as of this encounter Last Filed Vital Signs Vital SignReadingTime TakenCommentsBlood Hcxhqgkd890/561 3:00 PM EDT Cokfu009206/23/2025 3:00 PM GWQHtedlvqwaqu01.2 ??C (97.2 ??F)06/23/2025 12:25 AM EDTRespiratory Hneo4088 3:00 PM EDTOxygen Pmkobjwnuz003%06/23/2025 2:45 PM EDTInhaled Oxygen Concentration--Sfmbjd92.1 kg (92 lb 12.8 oz)06/23/2025 5:57 AM HTYTtwihn381.4 cm (5')06/21/2025 10:42 AM EDTBody Mass Index17.8106/21/2025 10:42 AM EDTdocumented in this encounter Functional Status * QuestionAnswerDate of AssessmentAuthorHeart Rate PqcyfnPleuyuv99/26/2025 7:55 PM Alejo Sweeney RN * QuestionAnswerDate of KncgwgzynzKxisnmSF154/561 3:00 PM Kristina Harp, MAItqtm5604/27/2025 3:00 PM Kristina Harp RN * [place] Fall RiskQuestionAnswerDate of AssessmentAuthorHistory of Falling, Immediate or Within 3 Gkewww802 8:25 AM Beth Coates RN Secondary Lgacgdtgf2877/27/2025 8:25 AM Beth Coates, RNAmbulatory Aid0 06/23/2025 8:25 AM Beth Coates RNIntravenous Therapy/Heparin Lock20 06/23/2025 8:25 AM Beth Coates RNGait/Pbanpaolsohx7074/27/2025 8:25 AM Beth Coates RNMental Gpgvbi906/27/2025 8:25 AM Beth Coates RNMorse Fall Risk Ksxwl480506/23/2025 8:25 AM Beth Coates RN * Sebas ScaleQuestionAnswerDate of AssessmentAuthorBraden No Risk Interventions Continue to assess patient according to level of care06/23/2025 8:25 AM EDT Beth Randall, RNSensory Pdmvkqgechp195/27/2025 8:25 AM Beth Coates RNMoisture41 8:25 AM Beth Coates, RNActivity3 06/23/2025 8:25 AM Beth Coates ISKsldsovl764/27/2025 8:25 AM EDT Beth Randall EKVdliohyfn786/27/2025 8:25 AM Beth Coates RN Friction and Ldbek033 8:25 AM Beth Coates RNBraden Scale Kvgas9791/27/2025 8:25 AM Beth Coates RN * QuestionAnswerDate of AssessmentAuthorPatient GhmeubxkLmrvo25/27/2025 5:57 AM Noemí No PCT * [place] Fall Risk InterventionsQuestionAnswerDate of AssessmentAuthor [place] Fall Risk LtivkxqqnyqmuGlzlyjet32/27/2025 8:25 AM Beth Coates RN * Pain Assessment TimerQuestionAnswerDate of AssessmentAuthorRestart Pain Assessment VqzmpPgk05/27/2025 11:00 AM Nkechi Marlow RN * Sepsis Model ScoresQuestionAnswerDate of AssessmentAuthorEarly Detection of Sepsis Score2.8806/23/2025 3:00 PM Gomez LyonsEarly Detection of Sepsis Score0.110 2:46 PM Gomez Lyons * Pain AssessmentQuestionAnswerDate of AssessmentAuthorPain Interventions Emotional support;Medication (See MAR);Utjidsxzrbvt33/27/2025 8:25 AM EDT Beth Randall RNPatient's Stated Pain GoalNo pain06/23/2025 8:25 AM EDT Beth Randall RNClinical ProgressionNot sikbjic6706/23/2025 8:25 AM EDT Beth Randall RNPain Score0 - No pain06/23/2025 10:33 AM Tammy Wilson OTPain AssessmentNo/denies pain06/23/2025 11:00 AM Nkechi Marlow RN * Audit Alcohol ScreeningQuestionAnswerDate of AssessmentAuthorHow often do you have a drink containing alcohol? 10:43 AM Jonnie Nolasco RN * Deterioration Index ScoreQuestionAnswerDate of AssessmentAuthorDeterioration Index Score28.91 2:46 PM Gomez Lyons * Head, Ears, Eyes, Nose, and Throat (HEENT)QuestionAnswerDate of Assessment AuthorHead, Ears, Eyes, Nose, and Throat (WDL)X1 8:25 AM Beth Coates RNR EyeMildly impaired vision;Corrective mpxizv2506/23/2025 8:25 AM Beth Barajas RNL EyeMildly impaired vision;Corrective jpkmij3106/23/2025 8:25 AM Beth Coates RNR EarModerately impaired hearing;Hearing aid 06/23/2025 8:25 AM Beth Coates RNL EarModerately impaired hearing;Hearing aid06/23/2025 8:25 AM Beth Coates RNTeethDentures upper;Dentures lower06/23/2025 8:25 AM Beth Coates RN * Short Portable Mental StatusQuestionAnswerDate of AssessmentAuthorWhat are the date, month, year? 8:25 AM Beth Coates RNWhat is the day of the week? 8:25 AM Beth Coates RNWhat is the name of this place? 8:25 AM Beth Coates RNWhat is your phone number? 8:25 AM Beth Coates RNHow old are you? 8:25 AM Beth Coates RNWhen were you born? 8:25 AM Beth Barajas RNWho is the current president? 8:25 AM EDT Beth Randall RNWho was the president before him? 8:25 AM TRICET Beth Randall RNWhat was your mother's maiden name? 8:25 AM EDT Beth Randall RNCan you count backward from 20 by 3s? 8:20 PM Alejo Sweeney RNShort Portable Mental Livou408 8:20 PM Alejo Sweeney RN * Fall Risk LevelQuestionAnswerDate of AssessmentAuthorMobility zoneLow (Green Zone)06/23/2025 8:25 AM Beth Coates RNMorse fall risk zoneLow (Green Zone)06/23/2025 8:25 AM Beth Coates RNMental status questionaire zone Low (Green Zone)06/23/2025 8:25 AM Beth Coates RN * HearingAnswerDate of AssessmentAuthorMild HOH1 10:34 AM Tammy Wilson OT * Skin IntegrityAnswerDate of AssessmentAuthorall visible skin okrqyb6306/23/2025 10:34 AM Tammy Wilson OT * Hand DominanceAnswerDate of YasxxajazoFkhrdxZguu38/27/2025 10:34 AM Tammy Wilson OT * Skin Assessment Sign offQuestionAnswerDate of AssessmentAuthorDual Sign-off - Admission/PwyyapviOoyfomn90/25/2025 10:31 AM Alireza Avendano RNAny new wounds identified on admission/transfer?No06/21/2025 10:31 AM Alireaz Avendano RN * 6 Clicks (Mobility)QuestionAnswerDate of AssessmentAuthorHelp from another person climbing 3-5 steps with a cidjmnp631/27/2025 10:02 AM Jose De Luna PTHelp from another person turning from your back to your side while in a flat bed without using mlrdxkjo236/27/2025 10:02 AM Jose De Luna, PTHelp from another person moving from lying on your back to sitting on the side of a flat bed without using ymcqxilm880/27/2025 10:02 AM Jose De Luna, PTHelp from another person moving to and from a bed to a chair (including a wheelchair)3 06/23/2025 10:02 AM Jose De Luna, PTHelp from another person standing up from a chair using your arms (e.g. wheelchair or bedside chair) 10:02 AM Jose De Luna PTHelp from another person to walk in hospital room 10:02 AM Jose De Luna, PTMobility 6 Clicks T-Ahlzg1393 10:02 AM Jose De Luna, PT * Vital SignsQuestionAnswerDate of GfuhizzpegUydsgrOivp21. 12:25 AM Alejo Sweeney RNTemp bpfNlznjvav58/27/2025 12:25 AM Alejo Sweeney RN Heart Rate UbknevWfbjplw87/26/2025 7:55 PM Alejo Sweeney RNBP LocationRight arm06/22/2025 7:55 PM Alejo Sweeney RNBP MrstonPlrrewuvd98/26/2025 7:55 PM Alejo Sweeney RN * QuestionAnswerDate of LfxlzmuczzVkpxdzQxG470153/27/2025 2:45 PM Beth Coates RN * QuestionAnswerDate of WnytwaltldGjvbfbZL412/561 3:00 PM Kristina Harp, YMQnbnw4224/27/2025 3:00 PM Kristina Harp RNResp261 3:00 PM Kristina Harp RNMAP (mmHg)801 3:00 PM Kristina Harp RN Pulse rate from Plethysmogram (bpm)7006/23/2025 2:45 PM Beth Coates RN * QuestionAnswerDate of AssessmentAuthorSwallowAble to swallow solids and liquids without pqxwzuppnj29/27/2025 8:25 AM Beth Coates RN * QuestionAnswerDate of AssessmentAuthorBilateral Breath SoundsClear;Diminished 06/23/2025 8:25 AM Beth Coates RNChest AssessmentSymmetrical 06/23/2025 8:25 AM Beth Coates RN * QuestionAnswerDate of AssessmentAuthorCardiac CadppcNFS81/27/2025 8:25 AM Beth Barajas RN * GastrointestinalQuestionAnswerDate of AssessmentAuthorGastrointestinal (WDL) WDL1 8:25 AM Beth Coates RN * Peripheral VascularQuestionAnswerDate of AssessmentAuthorPeripheral Vascular (WDL)WDL1 8:25 AM Beth Coates RNCapillary RefillLess than/equal to 2 seconds (All extremities)06/23/2025 8:25 AM Beth Coates RNPulsesRight pedal;Left pedal;Right posterior tibial;Left posterior tibial;Left radial;Right ffwskd2906/23/2025 8:25 AM Beth Coates RNEdema Right lower extremity;Left lower axbweobey10/25/2025 8:42 PM Juana No RN * RUE Neurovascular AssessmentQuestionAnswerDate of AssessmentAuthorRight Radial Pulse+ 8:25 AM Beth Coates RN * LUE Neurovascular AssessmentQuestionAnswerDate of AssessmentAuthorLeft Radial Pulse+ 8:25 AM Beth Coates RN * RLE Neurovascular AssessmentQuestionAnswerDate of AssessmentAuthorRLE Edema Non-ybjnmzs9306/22/2025 8:20 PM Alejo Sweeney RNRight Posterior Tibial Pulse + 8:25 AM Beth Coates RNRight Pedal Pulse+ 8:25 AM Beth Coates RN * LLE Neurovascular AssessmentQuestionAnswerDate of AssessmentAuthorLLE Edema Non-jexcthz5806/22/2025 8:20 PM Alejo Sweeney RNLeft Posterior Tibial Pulse+2 06/23/2025 8:25 AM Beth Coates RNLeft Pedal Pulse+ 8:25 AM Beth Coates, ZOFIA * MusculoskeletalQuestionAnswerDate of AssessmentAuthorMusculoskeletal (WDL)WDL 06/23/2025 8:25 AM Beth Coates RN * PsychosocialQuestionAnswerDate of AssessmentAuthorPsychosocial (WDL)WDL 06/23/2025 8:25 AM Beth Coates RN * [place] Fall RiskQuestionAnswerDate of AssessmentAuthorHistory of Falling, Immediate or Within 3 Fgxmvw353 8:25 AM Beth Coates RN Secondary Ijrbwrufa5232/27/2025 8:25 AM Beth Coates RNAmbulatory Aid0 06/23/2025 8:25 AM Beth Coates RNIntravenous Therapy/Heparin Lock20 06/23/2025 8:25 AM Beth Coates RNGait/Ogpqjfwfozzv0255/27/2025 8:25 AM Beth Coates RNMental Iyfzxw188/27/2025 8:25 AM Beth Coates RNMorse Fall Risk Sdgem799606/23/2025 8:25 AM Beth Coates RN * Sebas ScaleQuestionAnswerDate of AssessmentAuthorBraden No Risk Interventions Continue to assess patient according to level of care06/23/2025 8:25 AM EDT Beth Randall, RNSensory Itltqyrkimu458/27/2025 8:25 AM Beth Coates RNMoisture41 8:25 AM Beth Coates, RNActivity3 06/23/2025 8:25 AM Beth Coates RNMobility31 8:25 AM EDT Beth Randall RNNutrition31 8:25 AM Beth Coates RN Friction and Cebik395 8:25 AM Beth Coates RNBraden Scale Pxgej9640/27/2025 8:25 AM Beth Coates RN * CardiacQuestionAnswerDate of AssessmentAuthorCardiac (WDL)WDL1 8:20 PM Alejo Sweeney RN * RespiratoryQuestionAnswerDate of AssessmentAuthorRespiratory PatternNormal 06/22/2025 8:20 PM Alejo Sweeney RNRespiratory (WDL)X1 8:20 PM Alejo Brown RNRespiratory HhsqxrIpkvpahpf26/26/2025 8:20 PM Alejo Sweeney RNRespiratory Depth/AjeoyfWqctyex80/26/2025 8:20 PM Alejo Sweeney RNBreath SoundsBilateral breath yijlzl0106/22/2025 8:20 PM Alejo Sweeney RN * Charting TypeQuestionAnswerDate of AssessmentAuthorCharting TypeShift mveotkuuzo81/27/2025 8:25 AM Beth Coates RN * RLE AssessmentQuestionAnswerDate of AssessmentAuthorRLE AssessmentWFL 06/23/2025 10:36 AM Tammy Wilson OT * LLE AssessmentQuestionAnswerDate of AssessmentAuthorLLE AssessmentWFL 06/23/2025 10:36 AM Tammy Wilson OT * ProprioceptionQuestionAnswerDate of AssessmentAuthorProprioceptionNo apparent ykktwwln48/27/2025 10:34 AM Tammy Wilson OT * QuestionAnswerDate of AssessmentAuthorPatient NczqvsprIkmbs08/27/2025 5:57 AM Noemí No PCT * CognitionQuestionAnswerDate of AssessmentAuthorDeficitsFully aware of deficits 06/23/2025 10:33 AM Tammy Wilson OTYLMmlcgdtauzdcrRfghlk69/27/2025 10:33 AM Tammy Wilson OTOverall Cognitive ZbcdoiIQY38/27/2025 10:33 AM Tammy Clemons, NICHOLASrousal/AlertnessAppropriate responses to oawjplg1806/23/2025 10:33 AM Tammy Wilson OTAttention SpanAppears gswymt8806/23/2025 10:33 AM Tammy Wilson OTMemoryAppears hikazc8106/23/2025 10:33 AM Tammy Wilson OTFollowing CommandsFollows all commands and directions without vsxxgokocm54/27/2025 10:33 AM Tammy Wilson OTSafety JudgmentGood awareness of safety hmwrpzdvlpi94/27/2025 10:33 AM Tammy Wilson OT Awareness of ErrorsGood awareness of errors made06/23/2025 10:33 AM Tammy Wilson OTProblem SolvingAssistance required to identify errors made;Assistance required to generate /27/2025 10:33 AM Tammy Wilson OT * SensationQuestionAnswerDate of AssessmentAuthorLight TouchNo apparent deficits 06/23/2025 10:34 AM Tammy Wilson OTSensation Commentsdenies n/t 06/23/2025 10:34 AM Tammy Wilson OT * PerceptionQuestionAnswerDate of AssessmentAuthorInattention/NeglectAppears yxzkrk4706/23/2025 10:34 AM Tammy Wilson OTInitiationAppears intact 06/23/2025 10:34 AM Tammy Wilson OTMotor PlanningAppears intact 06/23/2025 10:34 AM Tammy Wilson OTPerseverationNot uvplgae9406/23/2025 10:34 AM Tammy Wilson OT * Vision - Basic AssessmentQuestionAnswerDate of AssessmentAuthorCurrent Vision Wears glasses all the time06/23/2025 10:34 AM Tammy Wilson OT * Cultural Requests During HospitalizationAnswerDate of AssessmentAuthornone 06/21/2025 10:00 PM Juana No RN * Spiritual Requests During HospitalizationAnswerDate of AssessmentAuthornone 06/21/2025 10:00 PM Juana No RN * GenitourinaryQuestionAnswerDate of AssessmentAuthorUrine ColorUnable to assess 06/22/2025 8:20 PM Alejo Sweeney RNUrine AppearanceUnable to assess 06/22/2025 8:20 PM Alejo Sweeney RNUrine OdorUnable to ulgkrd2306/22/2025 8:20 PM Alejo Sweeney RNGenitourinary (WDL)WDL1 8:25 AM Beth Barajas RNUrinary WrvnwfmwfpfoLc91/26/2025 8:20 PM Alejo Sweeney RN * NeurologicalQuestionAnswerDate of AssessmentAuthorLevel of Consciousness Responds to voice06/23/2025 11:00 AM Nkechi Marlow RNOrientation Level Oriented X41 11:00 AM Nkechi Marlow RNCognitionAppropriate judgement 06/23/2025 11:00 AM Nkechi Marlow RNSpeechClear1 11:00 AM Nkechi Marlow RNNeuro ([facility] 8:20 PM Alejo Sweeney RN * Patient MonitoringQuestionAnswerDate of AssessmentAuthorFrequency of Checks Twice per hour, gwcujnix42/27/2025 8:25 AM eBth Coates RN * Prior FunctionQuestionAnswerDate of AssessmentAuthorPrior Functional Mobility Independent without caszjt2206/23/2025 10:34 AM Tammy Wilson OTLevel of IndependenceIndependent with ADLs and functional transfers;Independent with homemaking with bbegdfvrqx69/27/2025 10:34 AM Tammy Wilson OTReceives Help CkytJmsrrv13/27/2025 10:34 AM Tammy Wilson OTVocationalRetired 06/23/2025 10:34 AM Tammy Wilson OTALILIANA QtmkeqwxxsIkjhjufxmgo48/27/2025 10:34 AM Tammy Wilson OTHomemaking WbszzjyxwpNirdwrllktk92/27/2025 10:34 AM Tammy Wilson OT * ADLQuestionAnswerDate of AssessmentAuthorBathing AssistanceStand by06/23/2025 10:37 AM Tammy Wilson OTEating WdicbskxhtRpqebvabcsl77/27/2025 10:37 AM Tammy Wilson OTGrooming AssistanceModified independent (Device) 06/23/2025 10:37 AM Tammy Wilson OTUE Dressing AssistanceStand by 06/23/2025 10:37 AM Tammy Wilson OTLE Dressing AssistanceStand by 06/23/2025 10:37 AM Tammy Wilson, OTToileting Assistance with DeviceStand by06/23/2025 10:37 AM Tammy Wilson OT * Activity ToleranceQuestionAnswerDate of AssessmentAuthorStage III (METs 2.0- 3.0) - Sitting to Cahggaen07-85 mins06/23/2025 10:35 AM Tammy Wilson OT EnduranceStage III06/23/2025 10:35 AM Tammy Wilson OTActivity Tolerance Commentstolerating session well, vitals WNL on RA xgtgdrvqys97/27/2025 10:35 AM Tammy Wilson OT * RUE AssessmentQuestionAnswerDate of AssessmentAuthorRUE AssessmentWFL 06/23/2025 10:36 AM Tammy Wilson OT * LUE AssessmentQuestionAnswerDate of AssessmentAuthorLUE AssessmentWFL 06/23/2025 10:36 AM Tammy Wilson OT * PrecautionsQuestionAnswerDate of AssessmentAuthorMedical Precautions telemetry;IV;fall risk06/23/2025 10:32 AM Tammy Wilson OT * PlanQuestionAnswerDate of AssessmentAuthorPT PlanSkilled PT06/23/2025 10:02 AM Jose De Luna PTTreatment/InterventionsFunctional transfer training;LE strengthening/ROM;Bed mobility;Gait training;Balance xgwvipdv06/27/2025 10:02 AM Jose De Luna PTPT Frequency4 times per week06/23/2025 10:02 AM Jose Fung PTPT - Discharge Recommendations OmyusaKhf35/27/2025 10:02 AM oJse De Luna PTPT Discharge RecommendationsPatient is able to return to prior living wfcsnmaabor57/27/2025 10:02 AM Jose De Luna, PT * Hand FunctionQuestionAnswerDate of AssessmentAuthorGross GraspFunctional 06/23/2025 10:36 AM Tammy Wilson CQNfygqsisupixPqdpwdvsii06/27/2025 10:36 AM Tammy Wilson OT * PlanQuestionAnswerDate of AssessmentAuthorLevel of assist1 prsxqf0206/23/2025 10:41 AM Tammy Wilson OTEquipment Wltboztkvyudzdq12/27/2025 10:41 AM Tammy Clemons OTTreatment InterventionsADL retraining;Functional transfer training;UE strengthening/ROM;Endurance training;Patient/family t raining;Compensatory technique pnohehioa73/27/2025 10:41 AM Tammy Wilson OTOT Frequency3 times per week06/23/2025 10:41 AM Tammy Wilson OTOT - Discharge Recommendations ZfazcjOsw52/27/2025 10:41 AM Tammy Wilson OTOT PlanSkilled OT06/23/2025 10:41 AM Tammy Wilson OTOT Discharge RecommendationsPatient is able to return to prior living qrnczyloeza26/27/2025 10:41 AM Tammy Wilson, OT * Safe EnvironmentQuestionAnswerDate of AssessmentAuthorArm Bands On ID;Allergies;Fall06/23/2025 8:25 AM Beth Coates RNSide Rails/Bed Safety2/ 8:25 AM Beth Coates RNBed KqgcqiEz89/27/2025 8:25 AM Beth Coates RNThe Patient's Environment is RmdxJqo26/27/2025 8:25 AM Beth Coates RN * MobilityQuestionAnswerDate of KvjfxvxbxiRnnhgqGwlzvbqhax66/27/2025 1:45 PM EDT Beth Randall, RNActivity PerformedStand at bedside;Turn;Walked to bathroom 06/23/2025 1:45 PM Beth Coates RNRepositionedTurns self06/23/2025 1:45 PM Beth Coates, RNLevel of AssistanceIndependent after set-up 06/23/2025 8:25 AM Beth Coates RNHead of Bed ElevatedSelf regulated 06/23/2025 1:45 PM Beth Coates RNHeels/FeetHeels elevated off bed 06/22/2025 8:00 AM Alireza Avendano RNRange of MotionActive;All extremities 06/23/2025 8:25 AM Beth Coates RNAnti-Embolism Devices Bilateral;Sequential compression devices, below knee06/23/2025 8:25 AM TRICET Beth Randall RNAnti-Embolism OdbucshnxhuePbw11/27/2025 8:25 AM EDT Beth Randall, RNPatient's mobility zoneZone 8:25 AM EDT Beth Randall RNPositioning FrequencyAble to turn self06/23/2025 1:45 PM Beth Coates RN * HygieneQuestionAnswerDate of AssessmentAuthorLinen changePartial linen change 06/22/2025 8:00 AM Alireza Avendano RNSkin CarePer self06/23/2025 8:25 AM Beth Coates RNHygienePer self06/23/2025 8:25 AM Beth Coates RNOral CarePer self06/23/2025 8:25 AM Beth Coates RNLevel of RbrkausvcfNlbxnbuvjad86/27/2025 8:25 AM Beth Coates RNIs Patient Total Care?No06/23/2025 8:25 AM Beth Coates RNIncontinence Protective DevicesAbsorbent pad06/23/2025 8:25 AM Beth Coates RN * PrecautionsQuestionAnswerDate of AssessmentAuthorPrecautionsBleeding;Fall 06/23/2025 8:25 AM Beth Coates RN * Comfort and Environment InterventionsQuestionAnswerDate of AssessmentAuthor DnjqkhkEhnidrqbmmrj95/27/2025 8:25 AM Beth Coates RN * ADL ScreeningQuestionAnswerDate of AssessmentAuthorDo you snore or wake up gasping for air?No06/21/2025 10:41 AM Jonnie Nolasco RNCan you bring in your CPAP/BiPAP from home?N/A1 10:41 AM Jonnie Nolasco RN Patient's Vision Adequate to Safely Complete Daily PcccgaqfnyXyp62/25/2025 10:41 AM Jonnie Nolasco RNPatient's Judgment Adequate to Safely Complete Daily PefuuoochqBym62/25/2025 10:41 AM Jonnie Nolasco RNPatient's Memory Adequate to Safely Complete Daily KudzfbfogkUwa63/25/2025 10:41 AM Jonnie Nolasco RNPatient Able to Express Needs/CyhwmjiQci43/25/2025 10:41 AM Jonnie Stone RNDressingIndependent06/21/2025 10:41 AM Jonnie Nolasco RNGroomingIndependent06/21/2025 10:41 AM Jonnie Nolasco RN RemklqyPoenfxzprlo85/25/2025 10:41 AM Jonnie Nolasco RNBathing Hsfbqvloxlc29/25/2025 10:41 AM Jonnie Nolasco RNToiletingIndependent 06/21/2025 10:41 AM Jonnie Nolasco RNIn/Out LooSdrlfruxtjx06/25/2025 10:41 AM Jonnie Nolasco RNWalks in SlvtSmzatqfazzh81/25/2025 10:41 AM Jonnie Nolasco RNWeakness of MkpoYwvp60/25/2025 10:41 AM Jonnie Nolasco RNWeakness of Arms/PohxvHzfb32/25/2025 10:41 AM Jonnie Nolasco RNHearing - Right EarHearing aid06/21/2025 10:41 AM Jonnie Nolasco RN Hearing - Left EarHearing aid06/21/2025 10:41 AM Jonnie Nolasco RNWhich is your dominant hand?Left06/21/2025 10:41 AM Jonnie Nolasco RN * ConsultsQuestionAnswerDate of AssessmentAuthorSpiritual Care Consult NeededNo 06/21/2025 10:43 AM Jonnie Nolasco RNSocial Services Consult NeededYes (Comment)06/21/2025 10:43 AM Jonnie Nolasco RNPalliative Care Consult XlwtglPx50/25/2025 10:43 AM Jonnie Nolasco RN * Therapy ConsultsQuestionAnswerDate of AssessmentAuthorPT Evaluation Needed1 06/21/2025 10:41 AM Jonnie Nolasco RNOT Evaluation Fiufys436 10:41 AM Jonnie Nolasco RNSLP Evaluation Njpmxc037/25/2025 10:41 AM Jonnie Stone RN * Assistive DevicesQuestionAnswerDate of AssessmentAuthorAssistive Devices Dentures upper;Dentures lower;Hearing aid - left;Hearing aid - right;Jbijcrvzsj06/25/2025 10:41 AM Jonnie Nolasco RN * Provider NotificationQuestionAnswerDate of AssessmentAuthorProvider Role Wzkkorzgwyn98/26/2025 1:00 AM Juana No RNProvider NameSanaarbour-hri hospitalah 06/22/2025 1:00 AM Juana No RNMethod of CommunicationEpic Chat 06/22/2025 1:00 AM Juana No RNReason for CommunicationCritical lab value06/22/2025 1:00 AM Juana No RNResponseNo new luexxt0506/22/2025 1:00 AM Juana No RN * AM-PAC 6 ClicksQuestionAnswerDate of AssessmentAuthorTotal Score OT AMPAC20 06/23/2025 10:31 AM Tammy Wilson OTToileting, which includes using the toilet,bedpan,or urinal? 10:31 AM Tammy Wilson, OTEating meals? 10:31 AM Tammy Wilson, MICHAELBathing(Including washing,rinsing,drying)? 10:31 AM Tammy Wilson, MAURIZIOaking care of personal grooming such as brushing teeth? 10:31 AM Tammy Wilson OTPutting on and taking off regular lower body clothing? 10:31 AM Tammy Wilson OTPutting on and taking off regular upper body clothing? 10:31 AM Tammy Wilson OT * [place] Fall Risk InterventionsQuestionAnswerDate of AssessmentAuthor [place] Fall Risk OochkiscfqfitYwckxaej13/27/2025 8:25 AM Beth Coates, ZOFIA * OT Last VisitQuestionAnswerDate of AssessmentAuthorOT Received [id number] 06/23/2025 10:30 AM Tammy Wilson OT * PT AssessmentQuestionAnswerDate of AssessmentAuthorPT AssessmentPatient is a 84 y/o female presenting with impaired activity tolerance/functional independence. Will benefit from additional skilled PT services to maximize safety/independence.06/23/2025 10:02 AM Jose De Luna PTPrognosisGood 06/23/2025 10:02 AM Jose De Luna PTImpairmentsDecreased endurance;Impaired balance;Decreased xuulsebl57/27/2025 10:02 AM Jose De Luna, PTMedical Staff Made QwrakLzg93/27/2025 10:02 AM Jose De Luna, PT Evaluation/Treatment TolerancePatient tolerated treatment well06/23/2025 10:02 AM Jose De Luna, PT * Static Standing BalanceQuestionAnswerDate of AssessmentAuthorStatic Standing- Balance SupportNo upper extremity zoyejtkuo98/27/2025 10:36 AM Tammy Wilson OTStatic Standing-Level of AssistanceClose /27/2025 10:36 AM Tammy Wilson OT * Dynamic Standing BalanceQuestionAnswerDate of AssessmentAuthorDynamic Standing Balance-Level of AssistanceContact guard06/23/2025 10:36 AM Tammy Wilson OTDynamic Standing-Balance SupportRight upper extremity nypzdgwfd16/27/2025 10:36 AM Tammy Wilson OT * Dynamic Sitting BalanceQuestionAnswerDate of AssessmentAuthorDynamic Sitting Balance-Level of AssistanceClose ehwkktrtbas60/27/2025 10:36 AM Tammy Wilson OTDynamic Sitting-Commentsperforming hygiene on nteqib71 10:36 AM Tammy Wilson OTDynamic Sitting-Balance SupportFeet supported;Left upper extremity supported;Right upper extremity supported 06/23/2025 10:36 AM Tammy Wilson OTDynamic Sitting-BalanceLateral lean;Forward lean06/23/2025 10:36 AM Tammy Wilson OT * AmbulationQuestionAnswerDate of DwlrfmabjsIzeapdVvknfevspyUsw91/27/2025 10:02 AM Jose De Luna PT * CoordinationQuestionAnswerDate of AssessmentAuthorMovements are Fluid and HwmwhkasvijLeo88/27/2025 10:34 AM Tammy Wilson OT * Postural [...] Luna, PT * Bed MobilityQuestionAnswerDate of AssessmentAuthorBed CbxirrqvVox62/27/2025 10:38 AM Tammy Wilson OT * Bed Mobility 1QuestionAnswerDate of AssessmentAuthorBed Mobility Comments 1HOB elevated ~30 ufmwbcj6906/23/2025 10:38 AM Tammy Wilson OTBed Mobility From 4Wyvfrn9606/23/2025 10:38 AM Tammy Wilson OTBed Mobility Type 1To and from 06/23/2025 10:38 AM Tammy Wilson OTBed Mobility to 1Short sit06/23/2025 10:38 AM Tammy Wilson OTLevel of Assistance 4Roebvzlhczr87/27/2025 10:38 AM Tammy Wilson OT * TransfersQuestionAnswerDate of AssessmentAuthorAmbulation commentsdemo'd functional mobility throughout room. Initially using IV pole for external support with RUE however able to ambulate without external support as well with CGA for safety. Pt demo'ing slow pace with short steps however no LOB noted06/23/2025 10:38 AM Tammy Wilson OTTransferYes1 10:38 AM EDTDrees, Tammy, OT * Transfer 1QuestionAnswerDate of AssessmentAuthorTransfer Device 1none 06/23/2025 10:38 AM Tammy Wilson OTTrials/Comments 1good hand placement noted06/23/2025 10:38 AM Tammy Wilson OTTransfer From 1Bed;Sit06/23/2025 10:38 AM Tammy Wilson OTTransfer Type 1To and from06/23/2025 10:38 AM Tammy Wilson OTTransfer to 6Rmsqe9206/23/2025 10:38 AM Tammy Wilson OTTechnique 1Sit to stand;Stand to sit06/23/2025 10:38 AM Tammy Wilson OTTransfer Level of Assistance 1Close dghhraqengv47/27/2025 10:38 AM Tammy Wilson, OT * Transfers 2QuestionAnswerDate of AssessmentAuthorTransfer Device 2none 06/23/2025 10:38 AM Tammy Wilson OTTrials/Comments 2good hand placement noted06/23/2025 10:38 AM Tammy Wilson OTTransfer From 2Letdg35 10:38 AM Tammy Wilson OTTransfer Type 2To and from06/23/2025 10:38 AM Tammy Wilson OTTransfer to 2Sit;Crydhg58 10:38 AM Tammy Wilson OTTechnique 2Sit to stand;Stand to sit06/23/2025 10:38 AM Tammy Wilson OTTransfer Level of Assistance 2Close xttjpzhyjyi12/27/2025 10:38 AM Tammy Wilson, OT * Static Sitting BalanceQuestionAnswerDate of AssessmentAuthorStatic Sitting- Balance SupportFeet mgpolwdek58/27/2025 10:36 AM Tammy Wilson OTStatic Sitting-Level of LwfduniwzqUjjcsfczltw19/27/2025 10:36 AM Tammy Wilson OTStatic Sitting-Comment/Number of Minutessitting EOB and on yemrzo37 10:36 AM Tammy Wilson OT * Ambulation 1QuestionAnswerDate of AssessmentAuthorSurface 1Level tile 06/23/2025 10:02 AM Jose De Luna PTDevice 1No veofkq9506/23/2025 10:02 AM Jose De Luna PTAssistance 1Close ugogehfskit09/27/2025 10:02 AM Jose Fung, PTQuality of Gait 1Slow pace with short step length, mild increased postural sway without LOB or significant instability.06/23/2025 10:02 AM Jose De Luna, PTComments/Distance (ft) 145 ft - initial 20 ft patient pushed IV pole with RUE, remaining 25 f t patient completed without BU E support. No significant change in gait process/dutofhxav46/27/2025 10:02 AM Jose De Luna, PT * Home LivingQuestionAnswerDate of AssessmentAuthorEntrance Stairs-RailsRight 06/23/2025 10:33 AM Tammy Wilson OTEntrance Stairs-Number of Steps4 06/23/2025 10:33 AM Tammy Wilson OTHome AccessStairs to enter with rails 06/23/2025 10:33 AM Tammy Wilson OTType of WosaBnilh15/27/2025 10:33 AM Tammy Wilson OTHome LayoutOne level06/23/2025 10:33 AM Tammy Wilson OTBathroom Shower/TubTub/shower unit06/23/2025 10:33 AM Tammy Wilson OTBathroom ToiletHandicapped fiztae2806/23/2025 10:33 AM Tammy Wilson OTBathroom TrdvorhofMckx71/27/2025 10:33 AM Tammy Wilson OTHome Adaptive EmvoqgzyjQyfpcm20/27/2025 10:33 AM Tammy Wilson OTLives With Cstuoh3806/23/2025 10:33 AM EDTDrees, Tammy, OT * OT AssessmentQuestionAnswerDate of AssessmentAuthorOT Assessment/CONTRACT DESIGN AGENT Summary Patient would benefit from Skilled OT to address decreased independence with ADLs, safety awareness, balance, and to promote overall function. At this time, Patient would be safety to return to priorliving environment with support.06/23/2025 10:40 AM Tammy Wilson OTOT Education/CommentsOT role/purpose, safety awareness, compensatory strategies, OT POC, discharge cldeeehk87/27/2025 10:40 AM Tammy Wilson OTStrengthsAbility to acquire knowledge;Support of extended family/friends;Living arrangement secure 06/23/2025 10:40 AM Tammy Wilson OTBarriers to DischargeComorbidities 06/23/2025 10:40 AM Tammy Wilson, JDDtgzvonhbJfcy29/27/2025 10:40 AM EDT Tammy Brunner OTOT ImpairmentsDecreased ADL status;Decreased endurance;Decreased functional mobility;Decreased IADLs;Decreased trunk control for functional oszksampup60/27/2025 10:40 AM Tammy Wilson OT Evaluation/Treatment TolerancePatient tolerated treatment well06/23/2025 10:40 AM Tammy Wilson, MICHAELMedical Staff Made JvpizLbv80/27/2025 10:40 AM TRICET Tammy Brunner, OT * PT Last VisitQuestionAnswerDate of AssessmentAuthorPT Received [id number] 06/23/2025 10:02 AM Jose De Luna, PT * Suicidal IdeationQuestionAnswerDate of AssessmentAuthor1. Wish to be (Lifetime)No06/21/2025 10:44 AM Jonnie Nolasco RN2. Non-Specific Active Suicidal Thoughts (Lifetime)No06/21/2025 10:44 AM Jonnie Nolasco RN * Pain AssessmentQuestionAnswerDate of AssessmentAuthorPain Interventions Emotional support;Medication (See MAR);Jcuqafpxcflm92/27/2025 8:25 AM EDT Beth Randall RNPatient's Stated Pain GoalNo pain06/23/2025 8:25 AM EDT Tonia, Beth, RNClinical ProgressionNot vlzaqej4406/23/2025 8:25 AM Beth Barajas, RNPain Score0 - No pain06/23/2025 10:33 AM Tammy Wilson OTPain AssessmentNo/denies pain06/23/2025 11:00 AM Nkechi Marlow RN * NutritionQuestionAnswerDate of AssessmentAuthorDiet BvusDYF50/27/2025 8:25 AM Beth Coates, RNFeedingAble to feed self06/23/2025 8:25 AM Beth Coates, CCUyvjmtfuRmkh66/26/2025 8:00 AM Alireza Avendano RN * IntegumentaryQuestionAnswerDate of AssessmentAuthorIntegumentary (WDL)WDL 06/23/2025 8:25 AM Beth Coates RN * QuestionAnswerDate of AssessmentAuthorLast BM Tpqg9339885/25/2025 3:00 PM Alireza Yang RNStool ByqkeMtims54/25/2025 3:00 PM Alireza Avendano RN Stool TeddpttamaVqdbeo38/25/2025 3:00 PM Alireza Avendano RN * Audit Alcohol ScreeningQuestionAnswerDate of AssessmentAuthorHow often do you have a drink containing alcohol? 10:43 AM Jonnie Nolasco RN * QuestionAnswerDate of AssessmentAuthorPatient Goal for Treatmentd/c10 10:00 AM Beth Coates RN * Drug ScreeningQuestionAnswerDate of AssessmentAuthorHave you used any substances (canabis, cocaine, heroin, hallucinogens, inhalants, etc.) in the past12 months?No06/21/2025 10:43 AM Jonnie Nolasco RNHave you used any prescription drugs other than prescribed in the past 12 months?No06/21/2025 10:43 AM Jonnie Nolasco RN * Care Plan - Safety GoalsQuestionAnswerDate of AssessmentAuthorFree from fall injuryAssess patient frequently for physical needs06/23/2025 8:25 AM EDT Beth Randall RN * Acute TriageQuestionAnswerDate of AssessmentAuthorTriage Uxeebglr334/27/2025 10:12 AM Jose De Luna, PTTriage GroupCardiovascular and pulmonology 06/23/2025 10:12 AM Jose De Luna, PT * Modified AldreteQuestionAnswerDate of GbidwpmjtlZsfxizNldfvlgf287/27/2025 12:40 PM EDIrma Martini RNRespiration 12:40 PM EDIrma Martini RNCirculation 12:40 PM Irma Love RNConsciousness 12:40 PM Irma Love RNOxygen Jzcokkhtzq760/27/2025 12:40 PM Irma Love RNModified Annemarie Nkdbg3352/27/2025 12:40 PM EDT Irma Dash RN * [...] Nolasco RN * Weight Loss ScoreAnswerDate of ExmsfectehCzsnbr368/25/2025 10:46 AM Jonnie Nolasco RN * Malnutrition ScoreAnswerDate of KvqmmzjocaAbsvyq596/25/2025 10:46 AM EDT Jonnie Chaudhari RN documented as of this encounter Mental Status * Montes Agitation Sedation ScaleQuestionAnswerEntry DateAuthorRichmond Agitation Sedation Scale (RASS) 12:30 PM Irma Love RN * Modified AldreteQuestionAnswerEntry WtshNnojvaXdvgipzm583/27/2025 12:40 PM EDT Irma Dash RNRespiration21 12:40 PM Irma Love RN Ebfcdahyfze983/27/2025 12:40 PM Irma Love RNConsciousness2 06/23/2025 12:40 PM Irma Love RNOxygen Cyffurtsry329/27/2025 12:40 PM Irma Love RNModified Annemarie Fggho8329/27/2025 12:40 PM EDT Irma Dash RN documented in this encounter Discharge Summaries * Giorgio Aguilar MD - 06/24/2025 9:45 AM EDT Images from the original note were not included. Hospital Medicine Discharge Summary Admission Date: 06/21/2025 9:55 AM Total duration of encounter: 3 days Final Discharge Diagnosis: Principal Problem: Chest pain Active Problems: Benign essential hypertension COPD (chronic obstructive pulmonary disease) ([facility]) Paroxysmal supraventricular tachycardia Mitral regurgitation Tricuspid regurgitation Acute on chronic heart failure with preserved ejection fraction (HFpEF) ([facility]) Pulmonary HTN ([facility]) Acute hypoxic respiratory failure ([facility]) Chronic hypoxic respiratory failure, on home oxygen therapy ([facility]) NSTEMI (non-ST elevated myocardial infarction) ([facility]) Nonobstructive CAD Chronic diastolic heart failure ([facility]) Admission Diagnosis: Chest pain [R07.9] Hospital course: Aleksandr Sanchez is a 84 y.o. female with a past medical history significant for SVT, COPD, HFpEF, HLD, pulmonary HTN. Patient presented with chest pain to [facility]. EKG showed sinus rhythm with RBBB. Peak troponin 603 now down trending. She was initiated on a heparin gtt [facility]. Patient had last cardiac cath 2019 and was negative for significant coronary artery [...] mcg/actuation nasal spray Commonly known as: Flonase itqpitmosle-gjtltmjsp-nljveyqc 100-62.5-25 mcg blister with device latanoprost 0.005 [...] Medications These medications were sent to [facility] - [place], [place] - [facility] [address], [facility] [address] lisinopril 5 mg tablet spironolactone 25 mg tablet Aleksandr is allergic to codeine. Disposition: Home or Self Care () Discharge Condition: Stable Code Status: Prior Diagnostic Results Hematology: Results from last 7 days Lab Units 06/24/25 0441 06/22/25 0501 06/21/25 1015 WBC AUTO 10*3/uL -- [...] was 30 minutes. Signed Giorgio Aguilar MD [facility] Medicine 06/25/2025 8:39 AM CC: DO Gustabo documented in this encounter Discharge Instructions * [...] 1 L [place], Make sure to call [facility] prior to moving to [place]. They confirmed that they have an office in [facility]. You will need to call them 1-2 weeks before moving, so they know to transfer you to the local office in [place]. They will also be able to tell you the steps ontaking your equipment to [place]. *Continue heart healthy diet and low sodium diet. *Monitor daily weights, fluid restriction 1.5-2Liters/day *Call office for weight gain of 2 pounds in 1 day or 5 pounds in 1 week, increased leg swelling, shortness of breath or shortness of breath at night and having to sleep sitting up taller/more pillowsthan normal or in recliner. [phone]. documented in this encounter Medications at Time [...] sprays into each nostril two times daily. vguylbpdgya-patvloonb-sedtfmuk 100-62.5-25 mcg blister with device in the morning.12/24/2024 latanoprost (Xalatan) 0.005 % ophthalmic solution Daily at ibavkqy5807/23/2018 metoprolol tartrate (Lopressor) 50 mg tablet Indications:Atrial [...] by mouth in the morning. 15 tablet 5009/22/2025documented as of this encounter Progress Notes * [...] this she underwent previous cardiac catheterization at [facility] on 01/01/2019, which did not show any significant coronary artery disease stenosis. She presented with chest pain to [facility]. According to family she had an episode of nausea, chest pain radiating to jaw and left arm, lightheadedness but no syncope on which resolved withina couple hours without treatment and then similar symptoms again yesterday which prompted visit to [facility]. EKG showed sinus rhythm with RBBB. Peak troponin 603 now down trending. She was initiated on a heparin gtt and transferred to [facility] for further management of NSTEMI. Once at [facility], she was started on DAPT with aspirin [...] Value Ventricular Rate 78 Atrial Rate 78 NE Interval 126 QRS DURATION 134 QT Interval 418 QTC CALCULATION(BAZETT) 476 P [place] 61 R-[place] 88 T Wave [place] 25 Impression Sinus rhythm with Premature atrial complexes Possible Left atrial enlargement Right bundle branch block Abnormal ECG No previous ECGs available Confirmed by Bautista Knox ([id number]) on 06/21/2025 1:20:56 PM No results found for: CKTOTAL , CKMB , CKMBINDEX , TROPONINI Transesophageal echo (ROMAN) Result Date: 06/23/2025 1 [facility] [address] [place] [address] [phone] (fax) Transesophageal Echocardiogram-[facility] Name: ALEKSANDR SANCHEZ Study Date: 06/23/2025 10:02 AM B/P: 132 mmHg/78 mmHg HR: Date of : 1940ocation: [facility] Height: 60 in. Age: 84 year(s) Patient [...] (Opiates) 50 micrograms Procedure Staff Reading Group: [facility] Pier Worker: Sara Mccarthy RDCS Ordering Physician: Varinder Cruz MD Complete Echo (TTE) w/wo Imaging Agent, Strain, 3D, Bubble Study Result Date: 06/22/2025 1 [facility] [address] [place] [address] [phone] (fax) Echocardiogram-[facility] Name: ALEKSANDR SANCHEZ Study Date: 06/21/2025 10:38 AM B/P: 150 mmHg/67 mmHg HR: Date of : 1940 Location: [facility] Height: 60 in. Age: 84 year(s) Patient [...] reviewed the examination Procedure Staff Reading Group: [facility] Pier Worker: Sara Mccarthy RDCS Ordering Physician: DERICK CANO No nuclear medicine results found for the past 12 months Relevant Imaging Results Cardiac catheterization PROCEDURE PHYSICIAN: Nestor Beyer MD Clinical Presentation: 84 y.o. Female with history of SVT, COPD, HFpEF, HLD, pulmonary HTN. Patient presented with chest pain to [facility]. She had nausea, chest pain radiating to jaw and left arm, lightheadedness. EKG showed sinus rhythm with RBBB. Peak HS-troponin 603, then trended down. She was started on a heparin gtt and transferred to [facility] for management of NSTEMI. She also had [...] and a micropuncture access technique a 6 [place] sheath was placed in the right internal jugular vein. The Lau catheter was advanced under fluoroscopic and hemodynamic monitoring to the right atrium. Pressure obtained of the right atrium, right ventricle, pulmonary artery, pulmonary capillary position. Oxygen saturation drawn for the pulmonary artery and Martina cardiac with a cardiac index were calculated. 1% lidocaine was infiltrated over the left radial artery. A 6-[place]ayan Terum[employer] Glidesheath slender was placed in left [...] was maintained at >250 seconds. A 6 [place] [employer] JL 3.5 guide was engaged to the left main. The joiz pressurewireX was zeroed outside of the body. [...] is very small. Transesophageal echo (ROMAN) 1 [facility] [address] [place] [address] [phone] (fax) Transesophageal Echocardiogram-[facility] Name: ALEKSANDR SANCHEZ Study Date: 06/23/2025 10:02 AM B/P: 132 mmHg/78 mmHg HR: Date of : 1940 Location: [facility] Height: 60 in. Age: 84 year(s) Patient [...] (Opiates) 50 micrograms Procedure Staff Reading Group: [facility] Pier Worker: Sara Mccarthy RDCS Ordering Physician: Varinder Cruz [...] Amber Escobar MD PGY-2 Internal Medicine Resident [facility] Cosigned by Varinder Cruz MD at 06/24/2025 [...] clinic. 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 Upon discharge, she plans to move to [place] with shannan. Per family, appetite has been [...] for NPO: Answer: Operation/Procedure 06/21/25 1855 06/22/25 130 Special Kitchen Request Once Comments: Meatloaf and mash potatoes with gravy, cottage cheese, ice tea, with 4 packets of sugar on the side, 06/22/25 1302 06/22/25 0751 Special Kitchen Request Once Comments: Pancake, coffee, 2% milk, [place] sausage, 1 white toast with 2 strawberry jelly 06/22/25 0752 06/21/25 1822 Special Kitchen Request Once Comments: Omelet with omani cheese, grits with sugar, butter, 1 [place] and 1 mchugh jello 2% milk 06/21/251821 Intakes: 50-100% x3 meals Nutrition Risk: High Nutrition Needs: Needs based on: actual body weight (42.1 kg) Calorie needs: 2232-8539 kcals/day based on 25-30 kcal/kg Protein needs: [...] of Nutrition and Dietetics (AND) and the [place] Society of Enteral and Parenteral Nutrition (ASPEN). [...] To reach the Clinical Dietitian, please utilize [employer] chat Monday-Monday from 8AM-4PM or call extension [phone]. For weekends (Monday-Monday) and holidays, the Clinical Dietitian can be reached via pager ([phone]) from 9AM-3PM. The Clinical Nutrition Department is unable to respond to [employer] chat messages on Sundays and s. [1] Past Medical History: Diagnosis Date CHF (congestive heart failure) ([facility]) COPD (chronic obstructive pulmonary disease) (CMS/HCC) Hyperlipidemia [...] difficulty General Assessment General Assessment Hearing: Mild [place]EL[place] Hand Dominance: Right Home Living Home Living [...] Level of Function Prior Function Level of Greenlee: Independent with ADLs and functional transfers, Independent [...] 150 ft independently with assistive device as scnezn99/27/25 07/04/25 -- Goal Start Date Expected End [...] pulmonary disease) ([facility]/HCC) Dyspnea Edema Fainting Former cigarette smoker Hyperlipidemia Paroxysmal supraventricular tachycardia Acute on chronic heart failure with preserved ejection fraction (HFpEF) ([facility]/HCC) Pulmonary HTN ([facility]/HCC) Acute hypoxic respiratory failure ([facility]/HCC) Chronic hypoxic respiratory failure, on home oxygen therapy ([facility]) NSTEMI (non-ST elevated myocardial infarction) ([facility]) Chronic diastolic heart failure ([facility]) [2] Past Medical History: Diagnosis Date CHF (congestive heart failure) ([facility]/HCC) COPD (chronic obstructive pulmonary disease) ([facility]) Hyperlipidemia Hypertension [3] Past Surgical History: Procedure Laterality Date APPENDECTOMY CARDIAC CATHETERIZATION HYSTERECTOMY * Woody Barriga MD - 06/23/2025 10:00 AM EDT Images from the original note were not included. Hospital Medicine Daily Progress Note - 06/23/2025 10:00 AM; Room: [address] [place] [address] Admission: 06/21/2025 9:55 AM; Length of stay: 2 days THE HOSPITALIST TEAM PREFERS TO USE [employer] CHAT FOR NON-URGENT COMMUNICATION 7AM- 7PM. IF I DO NOT RESPOND WITHIN 20 MINUTES OR URGENT MATTERS, PLEASE CALL THROUGH THE GEAR ROOM KEEPER. FROM 7PM-7AM, PLEASE PAGE [phone](COVR). Code Status: DNR CC-A Barriers to Discharge: [...] Chest pain NSTEMI (non-ST elevated myocardial infarction) ([facility]) Paroxysmal supraventricular tachycardia - Trops trending down in the last one of 94 - EKG consistent with sinus rhythm right bundle branch block Last cardiac cath 2018 negative for significant coronary artery disease - Continue heparin gtt, plan for echo and cardiac cath today -Continue aspirin, Plavix, pravastatin, lisinopril and Lopressor - Patient is DNRCCA COPD (chronic obstructive pulmonary disease) ([facility]) - Resume home inhalers, patient currently on Dulera and Incruse Ellipta Benign essential hypertension Continue above-mentioned medication Chronic hypoxic respiratory failure, on home oxygen therapy ([facility]) - on 1L home O2. Stable Chronic diastolic heart failure ([facility]) Patient has history of heart failure preserved [...] , FREET4 , CORTISOL , FEV1 , CJG2YVV , DLCO , RVSP , HDL , LDL No results found for: ZTLEQBXO07 , IRON , TIBC , C3 , C4 , TIMOTHY , CANCA , ASO , PSA , CEA , CA125 , CA199 , AFP , CA153 Imaging Complete Echo (TTE) w/wo Imaging Agent, Strain, 3D, Bubble Study 1 1 [facility] [address] [address] [phone] (fax) Echocardiogram-[facility] Name: ALEKSANDR SANCHEZ Study Date: 06/21/2025 10:38 AM B/P: 150 mmHg/67 mmHg HR: Date of : 1940 Location: [facility] Height: 60 in. Age: 84 year(s) Patient [...] reviewed the examination Procedure Staff Reading Group: [facility] Pier Worker: Sara Mccarthy RDCS Ordering Physician: DERICK CANO Discharge Planning Expected Discharge Disposition: Home or Self Care () Signed Woody Barriga MD Hospital Medicine 06/23/2025 10:00 AM * Tammy Brunner OT - 06/23/2025 9:45 AM EDT Occupational [...] Intact General Assessment General Assessment Hearing: Mild [place] Skin Integrity: all visible skin intact Hand [...] Level of Function Prior Function Level of Greenlee: Independent with ADLs and functional transfers, Independent [...] Eating meals?: None (Independent) Total Score OT [facility]: 20 Assessment/Plan OT Assessment OT Impairments: [...] (from Occupational Therapy) Active Problems Problem: OT Misc Start Date: 06/23/25 Goal Start Date [...] pulmonary disease) ([facility]/HCC) Dyspnea Edema Fainting Former cigarette smoker Hyperlipidemia Paroxysmal supraventricular tachycardia Acute on chronic heart failure with preserved ejection fraction (HFpEF) ([facility]/HCC) Pulmonary HTN ([facility]/HCC) Acute hypoxic respiratory failure ([facility]/HCC) Chronic hypoxic respiratory failure, on home oxygen therapy ([facility]) NSTEMI (non-ST elevated myocardial infarction) ([facility]/HCC) Chronic diastolic heart failure ([facility]/HCC) [2] Past Medical History: Diagnosis Date CHF (congestive heart failure) ([facility]) COPD (chronic obstructive pulmonary disease) ([facility]) Hyperlipidemia Hypertension [3] Past Surgical History: Procedure [...] this she underwent previous cardiac catheterization at [facility] on 01/01/2019, which did not show any significant coronary artery disease stenosis. She presented with chest pain to [facility]. According to family she had an episode of nausea, chest pain radiating to jaw and left arm, lightheadedness but no syncope on which resolved withina couple hours without treatment and then similar symptoms again yesterday which prompted visit to [facility]. EKG showed sinus rhythm with RBBB. Peak troponin 603 now down trending. She was initiated on a heparin gtt and transferred to [facility] for further management of NSTEMI. Cardiology workup: [...] -- -- 65 23 96 % -- 06/23/25 0025 119/57 36.2 ??C (97.2 ??F) Temporal 79 22 100 % -- 06/22/25 1955 119/57 36.4 ??C (97.5 ??F) Temporal [...] Value Ventricular Rate 78 Atrial Rate 78 NE Interval 126 QRS DURATION 134 QT Interval 418 QTC CALCULATION(BAZETT) 476 P [place] 61 R-Mabelvale 88 T Wave M[place] 25 Impression Sinus rhythm with Premature atrial complexes Possible Left atrial enlargement Right bundle branch block Abnormal ECG No previous ECGs available Confirmed by Bautista Knox ([id number]) on 06/21/2025 1:20:56 PM No results found for: CKTOTAL , CKMB , CKMBINDEX , TROPONINI Complete Echo (TTE) w/wo Imaging Agent, Strain, 3D, Bubble Study Result Date: 06/22/2025 1 1 [facility] Heart Station [address] [place] [address] [phone] (fax) Echocardiogram-[facility] Name: ALEKSANDR SANCHEZ Study Date: 06/21/2025 10:38 AM B/P: 150 mmHg/67 mmHg HR: Date of : 1940 Location: [facility] Height: 60 in. Age: 84 year(s) Patient [...] reviewed the examination Procedure Staff Reading Group: [facility] Pier Worker: Sara Mccarthy RDCS Ordering Physician: DERICK CANO No nuclear medicine results found for the past 12 months Relevant Imaging Results Complete Echo (TTE) w/wo Imaging Agent, Strain, 3D, Bubble Study 1 1 [facility] Heart Station [address] [facility] [address] [phone] (fax) Echocardiogram-[facility] Name: ALEKSANDR SANCHEZ Study Date: 06/21/2025 10:38 AM B/P: 150 mmHg/67 mmHg HR: Date of : 1940 Location: [facility] Height: 60 in. Age: 84 year(s) Patient [...] reviewed the examination Procedure Staff Reading Group: [facility] Pier Worker: Sara Mccarthy RDCS Ordering Physician: DERICK CANO [...] Severe LA enlargement with possibleASD. Mod-sev MR/TR ROAMN ordered for further evaluation - aborted due to patient intolerance - unable to pass probe Upon discharge, recommending decreasing torsemide dosage to 20 mg p.o. daily Continue aspirin, pravastatin, lisinopril and lopressor Replete electrolytes, maintain K>4, Mg>2 Cardiology will continue to follow. Please call with any questions. Amber Escobar MD PGY-2 Internal Medicine Resident [facility] Cosigned by Varinder Cruz MD at 06/23/2025 [...] the documentation by the Resident Dr Amber Escoabr. Please note there may be an additional personal documentation from me. Varinder Cruz MD * Woody Barriga MD - 06/22/2025 10:34 AM EDT Images from the original note were not included. [facility] Medicine Daily Progress Note - 06/22/2025 10:34 AM; Room: [address] [place] [address] Admission: 06/21/2025 9:55 AM; Length of stay: 1 days THE HOSPITALIST TEAM PREFERS TO USE [employer] FOR NON-URGENT COMMUNICATION 7AM- 7PM. IF I DO NOT RESPOND WITHIN 20 MINUTES OR URGENT MATTERS, PLEASE CALL THROUGH THE GEAR ROOM KEEPER. FROM 7PM-7AM, PLEASE PAGE [phone](COVR). Code Status: DNR CC-A Barriers to Discharge: [...] Chest pain NSTEMI (non-ST elevated myocardial infarction) ([facility]) Paroxysmal supraventricular tachycardia - Trops trending down in the last one of - EKG consistent with sinus rhythm right bundle branch block Last cardiac cath 2018 negative for significant coronary artery disease - Continue heparin gtt, plan for echo as well as Lexiscan stress test in a.m. -Continue aspirin, Plavix, pravastatin, lisinopril and Lopressor - Patient is DNRCCA COPD (chronic obstructive pulmonary disease) ([facility]) - Resume home inhalers, patient currently on Dulera and Incruse Ellipta Benign essential hypertension Continue above-mentioned medication Chronic hypoxic respiratory failure, on home oxygen therapy ([facility]) - on 1L home O2. Stable Chronic diastolic heart failure ([facility]) Patient has history of heart failure preserved [...] , FREET4 , CORTISOL , FEV1 , YCA4OIS , DLCO , RVSP , HDL , LDL No results found for: EMVNKOZT02 , IRON , TIBC , C3 , [...] HTN. Patient presented with chest pain to [facility]. According to family she had anepisode of nausea, chest pain radiating to jaw and left arm, lightheadedness but no syncope on which resolved within a couple hours without treatment and then similar symptoms again yesterday which prompted visit to [facility]. EKG showed sinus rhythm with RBBB. Peak troponin 603 now down trending. She was initiated on a heparin gtt and transferred to [facility] for further management of NSTEMI. Interval History [...] Value Ventricular Rate 78 Atrial Rate 78 NE Interval 126 QRS DURATION 134 QT Interval 418 QTC CALCULATION(BAZETT) 476 P [place] 61 R-Mabelvale 88 T Wave [place] 25 Impression Sinus rhythm with Premature atrial [...] Amber Escobar MD PGY-2 Internal Medicine Resident [facility] Cosigned by Bautista Knox MD at 06/23/2025 [...] distended. Assessment/Plan: NSTEMI (Non-ST Elevation Myocardial Infarction) ([facility]) Paroxysmal Supraventricular Tachycardia Troponin levels are trending [...] original note were not included. Cardiovascular Medicine [facility] SUBJECTIVE Chief Complaint Patient presents with [...] follow-up after her recent admission to [facility]. PMHx: SVT, COPD, HFpEF, pulmonary HTN, [...] edema, dizziness/LH, palpitations *She previous saw a neckties painter at [facility]. She would like to transfer her care to [facility]. Discharge summary: Hospital Course: Patient admitted [...] see if supplemental O2 will be a prison thing. Denies c/o CP, orthopnea, PND, LE [...] failure) (CMS/HCC) COPD (chronic obstructive pulmonary disease) ([facility]) Hyperlipidemia Hypertension [3] No family history on [...] wishes to proceed. Jerri Knight MD PGY-5 interlocker [facility] Cosigned by Xochitl Maradiaga MD at 06/28/2025 [...] HTN. Patient presented with chest pain to [facility]. According to family she had anepisode of nausea, chest pain radiating to jaw and left arm, lightheadedness but no syncope on which resolved within a couple hours without treatment and then similar symptoms again yesterday which prompted visit to [facility]. EKG showed sinus rhythm with RBBB. Peak troponin 603 now down trending. She was initiated on a heparin gtt and transferred to [facility] for further management of NSTEMI. Cardiology ROS: Negative except as mentioned. Past Medical History She has a past medical history of CHF (congestive heart failure) (CMS/HCC), COPD (chronic obstructive pulmonary disease) (CMS/HCC), Hyperlipidemia, and Hypertension. Surgical History She has [...] nasal spray 2 sprays, 2 times daily phnvvszccxe-ymhnkdegh-yrhmlndp 100-62.5-25 mcg blister with device Daily latanoprost [...] Value Ventricular Rate 78 Atrial Rate 78 NE Interval 126 QRS DURATION 134 QT Interval 418 QTC CALCULATION(BAZETT) 476 P [place] 61 R-[place]abelvale 88 T Wave [place] 25 Impression Sinus rhythm with Premature atrial [...] continue to follow along Abe Sun MD Sponge Hooker, PGY-4 [facility] 06/21/25 1:46 PM [1] No family history [...] into each nostril two times daily. 06/20/2025 rrnbsozelpj-rogbcvhtr-cvetlbvd 100-62.5-25 mcg blister with device in the [...] tablet 50 mg 50 mg oral BID BACILIO LimaC 50 mg at 06/21/25 1133 ondansetron ODT [...] from the original note were not included. [facility] Medicine History and Physical 06/21/2025 10:12 AM THE HOSPITALIST TEAM PREFERS TO USE [employer] CHAT FOR NON-URGENT COMMUNICATION 7AM- 7PM. IF I DO NOT RESPOND WITHIN 20 MINUTES OR URGENT MATTERS, PLEASE CALL THROUGH THE GEAR ROOM KEEPER. FROM 7PM-7AM, PLEASE PAGE [phone](COVR). Chief Complaint No chief complaint on file. History of Present Illness Aleksandr Sanchez is an 84 y.o. female w a PMH of COPD, HFpEF, pulmonary HTN w concern for Cor Pulmonale, HTN, and SVT who came from [facility] ED as transfer with c/o CP and SOB. She was out with her family and began to have palpitations associated with chest pain which radiated to her jaw and left arm as well as dizziness/lightheadedness/hypotension. She presented to the [facility] ED and hstrops there trended up into [...] Chest pain NSTEMI (non-ST elevated myocardial infarction) ([facility]) Paroxysmal supraventricular tachycardia - Given the likely inconsistent medication/metoprolol administration, concern she could have gone into SVT, explaining the PVCs and the complete resolution of CP now that she is in sinus. - Cardiology onboard - Trend trops/EKGs - Lexiscan in AM - Tte pending - Continue heparin gtt - Patient is DNRCCA COPD (chronic obstructive pulmonary disease) ([facility]) - Resume home inhalers Benign essential hypertension Continue lisinopril and metoprolol Pulmonary HTN ([facility]) Chronic hypoxic respiratory failure, on home oxygen therapy ([facility]) - on 1L home O2. Stable VTE [...] this hospital stay by a member of [facility] Medicine. Past Medical History Medical History[1] Past [...] Procedure Abnormality Status --------- ------ CBC auto differential[[id number]] Please view results for these tests on the individual orders. HIGH SENSITIVITY TROPONIN I LACTIC ACID, PLASMA MAGNESIUM CBC WITH AUTO DIFFERENTIAL B-TYPE NATRIURETIC PEPTIDE Imaging No image results found. Signed Derick Cano PA-C [facility] Medicine 06/21/2025 10:12 AM [1] Past Medical History: Diagnosis Date CHF (congestive heart failure) ([facility]) COPD (chronic obstructive pulmonary disease) ([facility]) Hyperlipidemia Hypertension [2] Past Surgical History: Procedure [...] HTN. Patient presented with chest pain to [facility]. According to family she had anepisode of nausea, chest pain radiating to jaw and left arm, lightheadedness but no syncope on which resolved within a couple hours without treatment and then similar symptoms again yesterday which prompted visit to [facility]. EKG showed sinus rhythm with RBBB. Peak troponin 603 now down trending. She was initiated on a heparin gtt and transferred to [facility] for further management of NSTEMI. Cardiology ROS: Negative except as mentioned. Past Medical History She has a past medical history of CHF (congestive heart failure) ([facility]), COPD (chronic obstructive pulmonary disease) ([facility]), Hyperlipidemia, and Hypertension. Surgical History She has [...] nasal spray 2 sprays, 2 times daily wgjhahthlrl-jjsygusma-gvuthbkh 100-62.5-25 mcg blister with device Daily latanoprost [...] Value Ventricular Rate 78 Atrial Rate 78 NE Interval 126 QRS DURATION 134 QT Interval 418 QTC CALCULATION(BAZETT) 476 P [place] 61 R-Mabelvale 88 T Wave [place] 25 Impression Sinus rhythm with Premature atrial [...] continue to follow along Abe Sun MD Sponge Hooker, PGY-4 [facility] 06/21/25 1:46 PM [1] No family history [...] into each nostril two times daily. 06/20/2025 zaoyhqswkij-gsshgzwoj-gownxwoz 100-62.5-25 mcg blister with device in the [...] Etienne RN - 06/24/2025 10:16 AM EDT Child Development Instructor went bedside and talked with patient about discharge planning. Patient stated she plans to dc home today and wears 1 L [place] oxygen at home through [facility]. Patient did say she was planning on moving to [place], [place] by [place]. Patient had questions onif [facility] has offices in [place]. Patient was agreeable for junior technical writer to call [facility] to confirm. Child Development Instructor called [facility] while in patients room and talk with staff. Child Development Instructor was told by [facility] staff that they do have offices in [place] and confirmed they have one in [place]. Child Development Instructor was also told by staff that patient will need to call [facility] with 1 - 2 weeks before moving so they can transfer information to local office. Child Development Instructor informed patient of this, patient voiced understanding and junior technical writer placed information on AVS as [...] HTN. Patient presented with chest pain to [facility]. EKG showed sinus rhythm with RBBB. Peak troponin 603 now down trending. She was initiated on a heparin gtt [facility]. Patient had last [...] hi Dr. Beyer how you good yeah * Care Plan - Hellen Carmichael RN [...] Procedures: Coronary angiography Right heart cath Location: [facility] SEWING MACHINES SALESPERSON 3 / [facility] (Cath) Providers: Nestor Beyer MD [...] EDTAssociated Problem(s): NSTEMI (non-ST elevated myocardial infarction) ([facility]) - Trops trending down in the last [...] hypoxic respiratory failure, on home oxygen therapy ([facility]) - on 1L home O2. Stable * Assessment & Plan Note - Woody Barriga MD - 06/23/2025 10:01 AM EDTAssociated Problem(s): Chronic diastolic heart failure ([facility]/HCC) Patient has history of heart failure preserved [...] EDTAssociated Problem(s): NSTEMI (non-ST elevated myocardial infarction) ([facility]) - Trops trending down in the last [...] EDTAssociated Problem(s): COPD (chronic obstructive pulmonary disease) ([facility]) - Resume home inhalers, patient currently on [...] EDTAssociated Problem(s): NSTEMI (non-ST elevated myocardial infarction) ([facility]) - Given the likely inconsistent medication/metoprolol administration, [...] EDTAssociated Problem(s): COPD (chronic obstructive pulmonary disease) ([facility]) - Resume home inhalers * Assessment & Plan Note - Derick Cano PA-C - 06/21/2025 2:30 PM EDTAssociated Problem(s): Benign essential hypertension Continue lisinopril and metoprolol * Assessment & Plan Note - Derick Cano PA-C - 06/21/2025 2:30 PM EDTAssociated Problem(s): Chronic hypoxic respiratory failure, on home oxygen therapy ([facility]) - on 1L home O2. 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 Expected: 06/23/2025 (Approximate), Expires: 12/22/2025documented as of this encounter Procedures Procedure NamePriorityDate/TimeAssociated DiagnosisCommentsHEMOGLOBIN AND HEMATOCRIT, BLOODPending Zhoumjmyv25/28/2025 4:41 AM EDT MAGNESIUMPending Qkftstapz80/28/2025 4:41 AM EDT BASIC METABOLIC PANELPending Ghfllkepb77/28/2025 4:41 AM EDT FRACTIONAL FLOW RESERVE (FFR)Mnxymwo2406/23/2025 12:32 PM EDT NSTEMI (non-ST elevated myocardial infarction) (CMS/HCC) RIGHT HEART YBJDBbsxull25/27/2025 12:32 PM EDT NSTEMI (non-ST elevated myocardial infarction) (CMS/HCC) CORONARY DLSPEBIBXIHZatahbl94/27/2025 12:32 PM EDT NSTEMI (non-ST elevated myocardial infarction) (CMS/HCC) ACTIVATED CLOTTING TUFIQnbrfdq56/27/2025 12:31 PM EDT ACTIVATED CLOTTING OVGHAhsqzmq11/27/2025 12:13 PM EDT %LYP2Ccjxbnt72/27/2025 11:54 AM EDT ECHO ABORTED YZRGICSRQEscuojy48/27/2025 11:01 AM EDT EXTRA OXWTWPyzxtsd91/27/2025 4:26 AM EDT LAVENDER KXRXfvreds50/27/2025 4:26 AM EDT LIGHT GREEN OVDGxuevev31/27/2025 4:26 AM EDT ANTI-FACTOR XAPending Elclqtpir26/27/2025 4:26 AM EDT ANTI-FACTOR XAPending Hbnxbrinz42/26/2025 5:01 AM EDT CBCPending Srtglzpey75/26/2025 5:01 AM EDT BASIC METABOLIC PANELPending Smlczvpbc29/26/2025 5:01 AM EDT HIGH SENSITIVITY TROPONIN NKgskb5906/21/2025 11:15 PM EDT ANTI-FACTOR VIKokqu11/25/2025 11:15 PM EDT HIGH SENSITIVITY TROPONIN UItnjt3006/21/2025 5:07 PM EDT ANTI-FACTOR KKBdztb17/25/2025 5:07 PM EDT HIGH SENSITIVITY TROPONIN NSdqrr0306/21/2025 11:43 AM EDT NEBBAIUT76/25/2025 11:43 AM EDT ECG 12-UYULQOCA46/25/2025 11:36 AM EDT COMPLETE ECHO (TTE)Nypssza8606/21/2025 11:01 AM EDT XR CHEST 1 XXADMCQQ83/25/2025 10:24 AM EDT HIGH SENSITIVITY TROPONIN ISTAT1 10:15 AM EDT CBC WITH AUTO DEXSHRNIVZRKKYXM97/25/2025 10:15 AM EDT CBC AND JJBNCJPNQOTISAMB20/25/2025 10:15 AM EDT B-TYPE NATRIURETIC VGHFDTDTOKH41/25/2025 10:15 AM EDT ENCPLURLPAUTR20/25/2025 10:15 AM EDT BASIC METABOLIC DFWOYSRUC97/25/2025 10:15 AM EDT LACTIC ACID, IFUXQEXRSH15/25/2025 10:14 AM EDT documented in this encounter Results * Magnesium (06/24/2025 4:41 AM EDT)ComponentValueRef RangeTest MethodAnalysis TimePerformed AtPathologist SignatureMagnesium1.91.9 - 2.7 mg/dL06/24/2025 5:47 AM [facility] ([facility] [place])Specimen (Source)Anatomical Location / LateralityCollection Method / VolumeCollection TimeReceived TimeBloodVenous blood specimen / UnknownVenipuncture / Wuqwmxz7606/24/2025 4:41 AM EDT1 5:22 AM EDT Narrative Authorizing ProviderResult TypeResult StatusJeroemi Linus MARTIN BLOOD ORDERABLES Final ResultPerforming OrganizationAddressCity/State/ZIP CodePhone Number [facility] ([facility]) [address] [place] [address] * (ABNORMAL) Basic metabolic panel (06/24/2025 4:41 AM EDT)ComponentValueRef RangeTest MethodAnalysis TimePerformed AtPathologist XnmxbjiviCerohs937149 - 145 mmol/L1 5:47 AM [facility] ([facility] [place])Potassium3.93.5 - 5.1 mmol/L1 5:47 AM [facility] ([facility])Esfgdgqb603(H)98 - 107 mmol/L1 5:47 AM [facility] ([facility])HV88608 - 31 mmol/L 06/24/2025 5:47 AM [facility] ([facility])JUT341 - 25 mg/dL06/24/2025 5:47 AM [facility] ([facility])Creatinine0.59(L)0.60 - 1.20 mg/dL 06/24/2025 5:47 AM [facility] ([facility])Iifotri6711 - 100 mg/dL 06/24/2025 5:47 AM [facility] ([facility])Calcium8.98.6 - 10.3 mg/dL 06/24/2025 5:47 AM [facility] ([facility])Anion Sse168 - 20 mmol/L 06/24/2025 5:47 AM [facility] ([facility])eGFR89.4>60.0 mL/min/1.73m*2 06/24/2025 5:47 AM [facility] ([facility])Comment:[facility]???s estimated glomerular filtration rate (eGFR) will no [...] one group of individuals.BUN/Creatinine Ratio20. 5:47 AM [facility] ([facility])Specimen (Source)Anatomical Location / LateralityCollection Method / VolumeCollection TimeReceived TimeBloodVenous blood specimen / Unknown Venipuncture / Tnwnfto0406/24/2025 4:41 AM EDT1 5:22 AM EDT Narrative Authorizing ProviderResult TypeResult StatusWoody MARTIN BLOOD ORDERABLES Final ResultPerforming OrganizationAddressCity/State/ZIP CodePhone Number [facility] ([facility]) [address] [place] [address] * (ABNORMAL) Hemoglobin and hematocrit, blood (06/24/2025 4:41 AM EDT)Component ValueRef RangeTest MethodAnalysis TimePerformed AtPathologist Signature Bczwontcwr95.9(L)12.0 - 15.0 g/dL06/24/2025 5:54 AM [facility] ([facility])Qptgcwphik51.9(L)36.0 - 45.0 %06/24/2025 5:54 AM [facility] ([facility])Specimen (Source)Anatomical Location / LateralityCollection Method / VolumeCollection TimeReceived TimeBloodVenous blood specimen / Unknown Venipuncture / Xsonxft9206/24/2025 4:41 AM EDT1 5:22 AM EDT Narrative Authorizing ProviderResult TypeResult StatusNestor MARTIN BLOOD ORDERABLES Final ResultPerforming OrganizationAddressCity/State/ZIP CodePhone Number [facility] ([place]) [address] [place] [address] * CORONARY ANGIOGRAPHY, RIGHT HEART CATH, FRACTIONAL FLOW RESERVE (FFR) (06/23/2025 12:32 PM EDT)Anatomical RegionLateralityModalityOtherSpecimen (Source)Anatomical Location / LateralityCollection Method / VolumeCollection TimeReceived Time Narrative 06/23/2025 1:20 PM EDT PROCEDURE PHYSICIAN: Nestor Beyer MD Clinical Presentation: 84 y.o. Female with history of SVT, COPD, HFpEF, HLD, pulmonary HTN. Patient presented with chest pain to [facility]. She had nausea, chest pain radiating to jaw and left arm, lightheadedness. EKG showed sinus rhythm with RBBB. Peak HS-troponin 603, then trended down. She was started on a heparin gtt and transferred to [facility] for management of NSTEMI. She also had [...] and a micropuncture access technique a 6 [place] sheath was placed in the right internal jugular vein. ??The Lau catheter was advanced under fluoroscopic and hemodynamic monitoring to the right atrium. ??Pressure obtained of the right atrium, right ventricle, pulmonary artery, pulmonary capillary position. ??Oxygen saturation drawn for the pulmonary artery and Martina cardiac with a cardiac index were calculated. 1% lidocaine was infiltrated over the left radial artery. ??A 6-[place] [employer] Glidesheath slender was placed in left [...] was maintained at >250 seconds. A 6 [place] [employer] JL 3.5 guide was engaged to the left main. The joiz pressurewireX was zeroed outside of the body. [...] acute on chronic HFpEF Authorizing ProviderResult TypeResult Teresa Cruz [facility] CARDIAC CATH PROCEDURESFinal Result * (ABNORMAL) Activated clotting time (06/23/2025 12:31 PM EDT)ComponentValueRef RangeTest MethodAnalysis TimePerformed AtPathologist SignatureActivated Clotting Rvyt872(H)82 - 152 06/24/2025 7:07 AM [facility] ([facility]) Specimen (Source)Anatomical Location / LateralityCollection Method / Volume Collection TimeReceived TimeBloodVenous blood specimen / Usovuav2906/23/2025 12:31 PM EDT1 7:07 AM EDT Narrative Authorizing Anabel MARTIN POINT OF CARE TEST DOCKED DEVICE UNSOLICITED RESULTSFinal ResultPerforming OrganizationAddress City/State/ZIP CodePhone Number [facility] ([facility] [place]) [address] [place], [place] [phone] * (ABNORMAL) Activated clotting time (06/23/2025 12:13 PM EDT)ComponentValueRef RangeTest MethodAnalysis TimePerformed AtPathologist SignatureActivated Clotting Cyfc111(H)82 - 152 06/23/2025 12:17 PM [facility]) Specimen (Source)Anatomical Location / LateralityCollection Method / Volume Collection TimeReceived TimeBloodVenous blood specimen / Vjnyqwv7706/23/2025 12:13 PM EDT1 12:16 PM EDT Narrative Authorizing ProviderDeangelo TypeResdiana MARTIN POINT OF CARE TEST DOCKED DEVICE UNSOLICITED RESULTSFinal ResultPerforming OrganizationAddress City/State/ZIP CodePhone Number [facility] ([facility]) [address] [place] [address] * (ABNORMAL) %HbO2 (06/23/2025 11:54 AM EDT)ComponentValueRef RangeTest Method Analysis TimePerformed AtPathologist YvwgqllttG5Ds%64.9(L)90.0 - 95.0 % 06/23/2025 11:54 AM EDTC[facility] ([facility])Specimen (Source)Anatomical Location / LateralityCollection Method / VolumeCollection TimeReceived Time BloodVenous blood specimen / Pycqpnt7806/23/2025 11:54 AM EDT1 11:54 AM EDT Narrative Authorizing ProviderResult TypeResult StatusWoody MARTIN POINT OF CARE TEST DOCKED DEVICE UNSOLICITED RESULTSFinal ResultPerforming OrganizationAddress City/State/ZIP CodePhone Number [facility] ([facility]) [address] [place] [address] * ECHO ABORTED PROCEDURE (06/23/2025 11:01 AM EDT)Anatomical RegionLaterality ModalityOtherSpecimen (Source)Anatomical Location / LateralityCollection Method / VolumeCollection TimeReceived Time06/23/2025 10:02 AM EDT Narrative 06/23/2025 11:41 AM EDT 1 [facility] [address] [place] [address] [phone] (fax) Transesophageal Echocardiogram-[facility] Name: ALEKSANDR SANCHEZ Study Date: 06/23/2025 10:02 AM B/P: 132 mmHg/78 mmHg HR: Date of : 1940 Location: [facility] Height: 60 in. Age: 84 year(s) Patient [...] (Opiates) 50 micrograms Procedure Staff Reading Group: [facility] Pier Worker: Sara Mccarthy RDCS ??Ordering Physician: Varinder Cruz MD ?? Procedure Note Xochitl Maradiaga MD - 06/23/2025 1 [facility] [address] [place] [address] [phone] (fax) Transesophageal Echocardiogram-[facility] Name: ALEKSANDR SANCHEZ Study Date: 06/23/2025 10:02 AM B/P: 132 mmHg/78 mmHg HR: Date of : 1940 Location: [facility] Height: 60 in. Age: 84 year(s) Patient [...] (Opiates) 50 micrograms Procedure Staff Reading Group: [facility] Pier Worker: Sara Mccarthy RDCS Ordering Physician: Varinder Cruz MD Authorizing ProviderResult TypeResult StatusGeormaggie Cruz [facility] ECHO PROCEDURESFinal Result * Lavender Top (06/23/2025 4:26 AM EDT)ComponentValueRef RangeTest Method Analysis TimePerformed AtPathologist SignatureExtra TubeHold for add-ons. 06/23/2025 6:01 AM [facility] ([facility])Comment:Auto resulted.Specimen (Source)Anatomical Location / LateralityCollection Method / VolumeCollection TimeReceived TimeBloodVenous blood specimen / Xwzwibu9706/23/2025 4:26 AM EDT 06/23/2025 4:38 AM EDT Narrative Authorizing ProviderResult TypeResult StatusWoody Barriga ILLAB BLOOD ORDERABLES Final ResultPerforming OrganizationAddressCity/State/ZIP CodePhone Number [facility]) [address] [place] [address] * Light Green Top (06/23/2025 4:26 AM EDT)ComponentValueRef RangeTest Method Analysis TimePerformed AtPathologist SignatureExtra TubeHold for add-ons. 06/23/2025 6:01 AM [facility] ([facility])Comment:Auto resulted.Specimen (Source)Anatomical Location / LateralityCollection Method / VolumeCollection TimeReceived TimeBloodVenous blood specimen / Harylnv0006/23/2025 4:26 AM EDT 06/23/2025 4:38 AM EDT Narrative Authorizing ProviderResult TypeResult StatusWoody Barriga ILADRIAN BLOOD ORDERABLES Final ResultPerforming OrganizationAddressCity/State/ZIP CodePhone Number [facility]) [address] [place] [address] * Anti-Xa (Heparin Level) (06/23/2025 4:26 AM EDT)ComponentValueRef RangeTest MethodAnalysis TimePerformed AtPathologist SignatureAnti-Xa (Heparin)0.410.3 - 0.7 IU/mL06/23/2025 5:08 AM [facility] ([facility])Comment:Rivaroxaban and Apixaban will interfere with the anti Xa assay used to monitor UFH and LMWH.Specimen (Source)Anatomical Location / LateralityCollection Method / VolumeCollection TimeReceived TimeBloodVenous blood specimen / Unknown Venipuncture / Gytmsdj4106/23/2025 4:26 AM EDT1 4:35 AM EDT Narrative Authorizing ProviderResult TypeResult StatusNestor MARTIN BLOOD ORDERABLES Final ResultPerforming OrganizationAddressCity/State/ZIP CodePhone Number [facility] ([facility]) [place] [address] * Anti-Xa (Heparin Level) (06/22/2025 5:01 AM EDT)ComponentValueRef RangeTest MethodAnalysis TimePerformed AtPathologist SignatureAnti-Xa (Heparin)0.410.3 - 0.7 IU/mL06/22/2025 6:02 AM [facility] ([facility])Comment:Rivaroxaban and Apixaban will interfere with the anti Xa assay used to monitor UFH and LMWH.Specimen (Source)Anatomical Location / LateralityCollection Method / VolumeCollection TimeReceived TimeBloodVenous blood specimen / Unknown Venipuncture / Sbnfrfr5306/22/2025 5:01 AM EDT1 5:19 AM EDT Narrative Authorizing ProviderResult TypeResult StatusDerick ALEGRIA-CLAB BLOOD ORDERABLESFinal ResultPerforming OrganizationAddressCity/State/ZIP CodePhone Number [facility] ([facility]) [place] [address] * (ABNORMAL) CBC (06/22/2025 5:01 AM EDT)ComponentValueRef RangeTest Method Analysis TimePerformed AtPathologist SignatureAuto WBC10.544.00 - 10.60 10*3/uL06/22/2025 5:44 AM [facility] ([facility])RBC3.75(L)3.80 - 5.00 10*6/uL06/22/2025 5:44 AM [facility] ([facility])Bwnbwzgqvq85.6(L)12.0 - 15.0 g/dL06/22/2025 5:44 AM [facility] ([facility])Trbizqvztq20.3(L) 36.0 - 45.0 %06/22/2025 5:44 AM [facility] ([facility])MCV94.182.0 - 98.0 fL06/22/2025 5:44 AM [facility] ([facility])MCH30.927.0 - 33.0 pg 06/22/2025 5:44 AM [facility] ([facility])MCHC32.932.0 - 35.0 g/dL 06/22/2025 5:44 AM [facility] ([facility])RDW15.2(H)11.5 - 15.0 % 06/22/2025 5:44 AM [facility] ([facility])Zjjxedijp417477 - 400 10*3/uL 06/22/2025 5:44 AM [facility] ([facility])Specimen (Source)Anatomical Location / LateralityCollection Method / VolumeCollection TimeReceived Time BloodVenous blood specimen / UnknownVenipuncture / Xbiqumx5106/22/2025 5:01 AM EDT1 5:23 AM EDT Narrative Authorizing ProviderResult TypeResult StatusAndrew Jerome PA-CLAB BLOOD ORDERABLESFinal ResultPerforming OrganizationAddressCity/State/ZIP CodePhone Number [facility] ([facility]) [address] [place] [address] * Basic metabolic panel (06/22/2025 5:01 AM EDT)ComponentValueRef RangeTest MethodAnalysis TimePerformed AtPathologist SwyyrfairTolqui640315 - 145 mmol/L 06/22/2025 5:52 AM [facility] ([facility])Potassium3.73.5 - 5.1 mmol/L 06/22/2025 5:52 AM [facility] ([facility])Glfmeqvt23748 - 107 mmol/L 06/22/2025 5:52 AM [facility] ([facility])XL98770 - 31 mmol/L1 5:52 AM [facility] ([facility])LPM162 - 25 mg/dL06/22/2025 5:52 AM EDT [facility] ([facility])Creatinine0.720.60 - 1.20 mg/dL06/22/2025 5:52 AM [facility] ([facility])Mbzylgf2631 - 100 mg/dL06/22/2025 5:52 AM [facility] ([facility])Calcium9.38.6 - 10.3 mg/dL06/22/2025 5:52 AM [facility] ([facility])Anion Gap97 - 20 mmol/L1 5:52 AM [facility] ([facility])eGFR82.9>60.0 mL/min/1.73m* 5:52 AM [facility] ([facility])Comment:[facility]???s estimated glomerular filtration rate (eGFR) will no [...] group of ind ividuals.BUN/Creatinine Ratio29. 5:52 AM [facility] ([facility])Specimen (Source)Anatomical Location / LateralityCollection Method / VolumeCollection TimeReceived TimeBloodVenous blood specimen / Unknown Venipuncture / Csjxszy6606/22/2025 5:01 AM EDT1 5:23 AM EDT Narrative Authorizing ProviderResult TypeResult StatusAndrew Jerome PA-CLAB BLOOD ORDERABLESFinal ResultPerforming OrganizationAddressCity/State/ZIP CodePhone Number [facility] ([facility]) [address] [place] [address] * Anti-Xa (Heparin Level) (06/21/2025 11:15 PM EDT)ComponentValueRef RangeTest MethodAnalysis TimePerformed AtPathologist SignatureAnti-Xa (Heparin)0.340.3 - 0.7 IU/mL06/22/2025 12:09 AM [facility] ([facility])Comment:Rivaroxaban and Apixaban will interfere with the anti Xa assay used to monitor UFH and LMWH.Specimen (Source)Anatomical Location / LateralityCollection Method / VolumeCollection TimeReceived TimeBloodVenous blood specimen / Unknown Venipuncture / Rzbldly1706/21/2025 11:15 PM EDT1 11:42 PM EDT Narrative Authorizing ProviderResult TypeResult StatusAndrew Jerome PA-CLAB BLOOD ORDERABLESFinal ResultPerforming OrganizationAddressCity/State/ZIP CodePhone Number [facility] ([facility]) [address] [place] [address] * (ABNORMAL) High Sensitivity Troponin I (06/21/2025 11:15 PM EDT)ComponentValue Ref RangeTest MethodAnalysis TimePerformed AtPathologist SignatureHigh Sensitivity Troponin I94(HH)<15 ng/L1 12:46 AM [facility] ([facility])Specimen (Source)Anatomical Location / LateralityCollection Method / VolumeCollection TimeReceived TimeBloodVenous blood specimen / Unknown Venipuncture / Mbbvzik4106/21/2025 11:15 PM EDT1 11:43 PM EDT Narrative Authorizing ProviderResult TypeResult StatusAndrew Jerome PA-CLAB BLOOD ORDERABLESFinal ResultPerforming OrganizationAddressCity/State/ZIP CodePhone Number [facility] ([facility]) [address] [place] [phone] * (ABNORMAL) Anti-Xa (Heparin Level) (06/21/2025 5:07 PM EDT)ComponentValueRef RangeTest MethodAnalysis TimePerformed AtPathologist SignatureAnti-Xa (Heparin)0.16(LL)0.3 - 0.7 IU/mL06/21/2025 6:04 PM [facility] ([facility])Comment:Rivaroxaban and Apixaban will interfere with the anti Xa assay used to monitor UFH and LMWH.Specimen (Source)Anatomical Location / LateralityCollection Method / VolumeCollection TimeReceived TimeBloodVenous blood specimen / UnknownVenipuncture / Ldrdfzc6806/21/2025 5:07 PM EDT1 5:28 PM EDT Narrative Authorizing ProviderResult TypeResult StatusAndrew Jerome PA-CLAB BLOOD ORDERABLESFinal ResultPerforming OrganizationAddressCity/State/ZIP CodePhone Number [facility]) [address] [place] [address] * (ABNORMAL) High Sensitivity Troponin I (06/21/2025 5:07 PM EDT)ComponentValue Ref RangeTest MethodAnalysis TimePerformed AtPathologist SignatureHigh Sensitivity Troponin I124(HH)<15 ng/L1 6:02 PM [facility] ([facility])Specimen (Source)Anatomical Location / LateralityCollection Method / VolumeCollection TimeReceived TimeBloodVenous blood specimen / Unknown Venipuncture / Ovvxnwd5406/21/2025 5:07 PM EDT1 5:31 PM EDT Narrative Authorizing ProviderResult TypeResult StatusAndrew Jerome PA-CLAB BLOOD ORDERABLESFinal ResultPerforming OrganizationAddressCity/State/ZIP CodePhone Number [facility]) [address] [place] [address] * (ABNORMAL) High Sensitivity Troponin I (06/21/2025 11:43 AM EDT)ComponentValue Ref RangeTest MethodAnalysis TimePerformed AtPathologist SignatureHigh Sensitivity Troponin I168(HH)<15 ng/L1 12:43 PM [facility])Specimen (Source)Anatomical Location / LateralityCollection Method / VolumeCollection TimeReceived TimeBloodVenous blood specimen / Unknown Venipuncture / Rywfhhq2406/21/2025 11:43 AM EDT1 11:57 AM EDT Narrative Authorizing ProviderResult TypeResult StatusAndrew Jerome PA-CLAB BLOOD ORDERABLESFinal ResultPerforming OrganizationAddressCity/State/ZIP CodePhone Number [facility]) [address] [place] [address] * aPTT - baseline (06/21/2025 11:43 AM EDT)ComponentValueRef RangeTest Method Analysis TimePerformed AtPathologist GtkmktbtxbWNR48.425.0 - 35.0 Seconds 06/21/2025 1:18 PM [facility])Comment:Clinical significance of the APTT is questionable in the presence of heparin.Specimen (Source) Anatomical Location / LateralityCollection Method / VolumeCollection Time Received TimeBloodVenous blood specimen / UnknownVenipuncture / Unknown 06/21/2025 11:43 AM EDT1 11:57 AM EDT Narrative Authorizing ProviderResult TypeResult StatusAndrew Jerome PA-CLAB BLOOD ORDERABLESFinal ResultPerforming OrganizationAddressCity/State/ZIP CodePhone Number [facility] ([place]) [address] [place] [address] * ECG 12 lead (06/21/2025 11:36 AM EDT)ComponentValueRef RangeTest Method Analysis TimePerformed AtPathologist SignatureVentricular Xitz30KNIAC MUSE Atrial Otdh89XVGWN MUSEPR Jfkydqtn140jmUR MUSEQRS YIGMECAF477gtDY MUSEQT Cnxrevwx819ujPL MUSEQTC CALCULATION(BAZETT)476msGE MUSEP Sgjy16azlnbkxLX MUSE R-Fltk37xjrbtnmGV MUSET Wave Jkzi60wyzrcsxDL MUSESpecimen (Source)Anatomical Location / LateralityCollection Method / [...] Narrative 06/22/2025 10:12 PM EDT 1 1 [facility] Heart Station [address] [place] [address] [phone] (fax) Echocardiogram-[facility] Name: ALEKSANDR SANCHEZ Study Date: 06/21/2025 10:38 AM B/P: 150 mmHg/67 mmHg HR: Date of : 1940 Location: [facility] Height: 60 in. Age: 84 year(s) Patient [...] reviewed the examination Procedure Staff Reading Group: [facility] Pier Worker: Sara Mccarthy RDCS ??Ordering Physician: DERICK CANO ?? Procedure Note Varinder Cruz MD - 06/22/2025 1 1 [facility] Heart Station [address] [facility] [address] [phone] (fax) Echocardiogram-[facility] Name: ALEKSANDR SANCHEZ Study Date: 06/21/2025 10:38 AM B/P: 150 mmHg/67 mmHg HR: Date of : 1940 Location: [facility] Height: 60 in. Age: 84 year(s) Patient [...] reviewed the examination Procedure Staff Reading Group: [facility] Worker: Sara Mccarthy RDCS Ordering Physician: DERICK CANO [...] Blayne Dwyer. Authorizing ProviderResult TypeResult StatusAndfrancisco javier Cano PA-CIMG XR PROCEDURES Final Result * (ABNORMAL) B-type natriuretic peptide (06/21/2025 10:15 AM EDT)ComponentValue Ref RangeTest MethodAnalysis TimePerformed AtPathologist TvpqwrwevXXM805(H)0 - 100 pg/mL06/21/2025 10:52 AM [facility] ([facility])Specimen (Source) Anatomical Location / LateralityCollection Method / VolumeCollection Time Received TimeBloodVenous blood specimen / UnknownVenipuncture / Unknown 06/21/2025 10:15 AM EDT1 10:24 AM EDT Narrative Authorizing ProviderResult TypeResult StatusAndfrancisco javier Cano PA-CLAB BLOOD ORDERABLESFinal ResultPerforming OrganizationAddressCity/State/ZIP CodePhone Number [facility] ([facility]) [address] [place] [address] * (ABNORMAL) CBC auto differential (06/21/2025 10:15 AM EDT)ComponentValueRef RangeTest MethodAnalysis TimePerformed AtPathologist SignatureAuto WBC11.80(H) 4.00 - 10.60 10*3/uL06/21/2025 10:39 AM [facility] ([facility])RBC4.17 3.80 - 5.00 10*6/uL06/21/2025 10:39 AM [facility] ([facility])Hemoglobin 12.812.0 - 15.0 g/dL06/21/2025 10:39 AM [facility] ([facility]) Owcbhvfdnz64.036.0 - 45.0 %06/21/2025 10:39 AM [facility] ([facility]) MCV93.582.0 - 98.0 fL06/21/2025 10:39 AM [facility] ([facility])MCH30.7 27.0 - 33.0 pg06/21/2025 10:39 AM [facility] ([facility])MCHC32.832.0 - 35.0 g/dL06/21/2025 10:39 AM [facility] ([facility])RDW15.2(H)11.5 - 15.0 %06/21/2025 10:39 AM [facility] ([facility])Neutrophils %64.540.0 - 72.0 %06/21/2025 10:39 AM [facility] ([facility])Lymphocytes %26.420.0 - 45.0 %06/21/2025 10:39 AM [facility] ([facility])Monocytes %6.85.0 - 12.0 %06/21/2025 10:39 AM [facility] ([facility])Eosinophils %1.30.0 - 6.0 %06/21/2025 10:39 AM [facility] ([facility])Basophils %0.70.0 - 1.0 %06/21/2025 10:39 AM [facility] ([facility])Neutrophils Absolute7.61(H) 1.60 - 7.60 10*3/uL06/21/2025 10:39 AM [facility] ([facility]) Lymphocytes Absolute3.121.20 - 4.00 10*3/uL06/21/2025 10:39 AM [facility] ([facility])Monocytes Absolute0.800.10 - 1.00 10*3/uL06/21/2025 10:39 AM [facility] ([facility])Eosinophils Absolute0.150.00 - 0.50 10*3/uL 06/21/2025 10:39 AM [facility] ([facility])Basophils Absolute0.080.00 - 0.20 10*3/uL06/21/2025 10:39 AM [facility] ([facility])Oaixxxkgw385414 - 400 10*3/uL06/21/2025 10:39 AM [facility] ([facility])nRBC %0.00 % 06/21/2025 10:39 AM [facility] ([facility])Immature Granulocytes %0.30.0 - 1.0 %06/21/2025 10:39 AM [facility] ([facility])Immature Granulocytes Absolute0.040.00 - 0.20 10*3/uL06/21/2025 10:39 AM [facility] ([facility])Specimen (Source)Anatomical Location / LateralityCollection Method / VolumeCollection TimeReceived TimeBloodVenous blood specimen / Unknown Venipuncture / Xhuetta1106/21/2025 10:15 AM EDT1 10:24 AM EDT Narrative Authorizing ProviderResult TypeResult StatusAndrew Jerome PA-CLAB BLOOD ORDERABLESFinal ResultPerforming OrganizationAddressCity/State/ZIP CodePhone Number [facility] ([facility]) [address] [place] [address] * Magnesium (06/21/2025 10:15 AM EDT)ComponentValueRef RangeTest MethodAnalysis TimePerformed AtPathologist SignatureMagnesium2.11.9 - 2.7 mg/dL06/21/2025 10:51 AM [facility] ([facility])Specimen (Source)Anatomical Location / LateralityCollection Method / VolumeCollection TimeReceived TimeBloodVenous blood specimen / UnknownVenipuncture / Zpgobyw6406/21/2025 10:15 AM EDT 06/21/2025 10:24 AM EDT Narrative Authorizing ProviderResult TypeResult StatusAndrew Jerome PA-CLAB BLOOD ORDERABLESFinal ResultPerforming OrganizationAddressCity/State/ZIP CodePhone Number [facility] ([facility]) [address] [place] [address] * (ABNORMAL) HIGH SENSITIVITY TROPONIN I (06/21/2025 10:15 AM EDT)ComponentValue Ref RangeTest MethodAnalysis TimePerformed AtPathologist SignatureHigh Sensitivity Troponin I227(HH)<15 ng/L1 10:58 AM [facility])Specimen (Source)Anatomical Location / LateralityCollection Method / VolumeCollection TimeReceived TimeBloodVenous blood specimen / Unknown Venipuncture / Trfblxv5906/21/2025 10:15 AM EDT1 10:24 AM EDT Narrative Authorizing ProviderResult TypeResult StatusAndrew Jerome GRANT BLOOD ORDERABLESFinal ResultPerforming OrganizationAddressCity/State/ZIP CodePhone Number [facility] ([facility]) [address] [place] [address] * (ABNORMAL) Basic metabolic panel (06/21/2025 10:15 AM EDT)ComponentValueRef RangeTest MethodAnalysis TimePerformed AtPathologist LaxqjzfifBzbivv361030 - 145 mmol/L1 10:51 AM [facility] ([facility])Potassium3.83.5 - 5.1 mmol/L1 10:51 AM [facility] ([facility])Zbmjlqzr36778 - 107 mmol/L1 10:51 AM [facility] ([facility])BG36345 - 31 mmol/L 06/21/2025 10:51 AM [facility] ([facility])BUN38(H)7 - 25 mg/dL 06/21/2025 10:51 AM [facility] ([facility])Creatinine0.990.60 - 1.20 mg/dL06/21/2025 10:51 AM [facility] ([facility])Blfuard2208 - 100 mg/dL 06/21/2025 10:51 AM [facility] ([facility])Calcium9.58.6 - 10.3 mg/dL 06/21/2025 10:51 AM [facility] ([facility])Anion Mvd662 - 20 mmol/L 06/21/2025 10:51 AM [facility] ([facility])eGFR56.6(L)>60.0 mL/min/1.73m* 10:51 AM [facility] ([facility])Comment:[facility]???s estimated glomerular filtration rate (eGFR) will no [...] disproportionately affect any one group of individuals.BUN/Creatinine Ratio38.410 10:51 AM [facility] ([facility])Specimen (Source)Anatomical Location / LateralityCollection Method / VolumeCollection TimeReceived TimeBloodVenous blood specimen / Unknown Venipuncture / Ykxyuop6906/21/2025 10:15 AM EDT1 10:24 AM EDT Narrative Authorizing ProviderResult TypeResult StatusAndrew Jerome PA-CLAB BLOOD ORDERABLESFinal ResultPerforming OrganizationAddressCity/State/ZIP CodePhone Number [facility] ([facility]) [address] [place] [address] * Lactic acid, plasma (06/21/2025 10:14 AM EDT)ComponentValueRef RangeTest MethodAnalysis TimePerformed AtPathologist SignatureLactate1.40.5 - 2.2 mmol/L 06/21/2025 10:47 AM [facility] ([facility])Specimen (Source)Anatomical Location / LateralityCollection Method / VolumeCollection TimeReceived Time BloodVenous blood specimen / UnknownVenipuncture / Qxbryzk7106/21/2025 10:14 AM EDT1 10:22 AM EDT Narrative Authorizing ProviderResult TypeResult StatusAndrew Jerome PA-CLAB BLOOD ORDERABLESFinal ResultPerforming OrganizationAddressCity/State/ZIP CodePhone Number 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 Chronic diastolic heart failure (CMS/HCC) Chronic diastolic heart failure Paroxysmal supraventricular tachycardia COPD (chronic obstructive pulmonary disease) ([facility]) Chronic airway obstruction, not elsewhere classified Benign essential hypertension Essential hypertension, benign Acute on chronic heart failure with preserved ejection fraction (HFpEF) ([facility]) Pulmonary HTN ([facility] Acute hypoxic respiratory failure ([facility]) Chronic hypoxic respiratory failure, on home oxygen therapy ([facility]) NSTEMI (non-ST elevated myocardial infarction) ([facility]) Acute myocardial infarction, subendocardial infarction, episode of care unspecified Chronic diastolic heart failure ([facility]) Chronic diastolic heart failure Nonrheumatic tricuspid valve regurgitation Nonrheumatic mitral valve regurgitation Acute on chronic heart failure with preserved ejection fraction (HFpEF) ([facility]) NSTEMI (non-ST elevated myocardial infarction) ([facility]) Acute myocardial infarction, subendocardial infarction, episode of care unspecified documented in this encounter Admitting Diagnoses Diagnosis Chest pain Unspecified chest pain documented in this encounter Administered Medications Medication OrderMAR ActionAction DateDoseRateSite adenosine (Adenocard) Continuous PRN, Starting on 06/23/25 at 1224, Intraprocedure New Bag06/23/2025 12:24 PM HNJ293 mcg/kg/fjo579.9 mL/hr aspirin EC tablet 81 mg 81 mg, oral, Daily RT, First dose on 06/21/25 at 1015, For 99 days, Do not crush, chew, or split. Given06/24/2025 9:22 AM EDT81 tpVvzyq9006/23/2025 8:43 AM EDT81 vxPwwta7706/22/2025 7:41 AM EDT81 mg brimonidine (Alphagan) 0.2 % ophthalmic solution 1 drop 1 drop, Both Eyes, 2 times daily RT, First dose on 06/21/25 at 2000, For 99 days Given06/24/2025 9:23 AM EDT1 xdmvDsppa64/27/2025 8:25 PM EDT1 dropGiven 06/23/2025 8:45 AM EDT1 drop clonazePAM (KlonoPIN) tablet 0.5 mg 0.5 mg, oral, Nightly, First dose on 06/21/25 at 2200, For 99 days Given06/23/2025 9:51 PM EDT0.5 whYyirj9806/22/2025 9:11 PM EDT0.5 mgGiven 06/21/2025 9:04 PM EDT0.5 mg fluticasone (Flonase) nasal spray 2 spray 2 spray, Each Nostril, 2 times daily, First dose on Mon06/21/25 at 1015, For 99 days, Shake gently. Before first use, prime pump (press 6 times until fine spray appears). After use, clean tip and replace cap. Given06/23/2025 8:46 AM EDT2 vvnnteTtjdu32/25/2025 9:04 PM EDT2 sprays heparin (porcine) injection 5,000 Units 5,000 Units, subcutaneous, 2 times daily, First dose on Mon06/23/25 at 2200, For 99 days Given06/24/2025 9:22 AM EDT5,000 UnitsRight Upper Arm (Back)Given06/23/2025 9:52 PM EDT5,000 UnitsRight Lower Abdomen heparin (porcine) injection As needed, Starting on Mon06/23/25 at 1201, Intraprocedure Given06/23/2025 12:16 PM EDT2,000 MiuqeXmlgu58/27/2025 12:09 PM EDT1,000 Units Given06/23/2025 12:01 PM EDT2,000 Units heparin irrigation 2 units/mL in NS As needed, Starting on Mon06/23/25 at 1123, Intraprocedure Given06/23/2025 11:23 AM EDT2,000 mL iodixanol (VISIPaque) 320 mg iodine/mL injection As needed, Starting on Mon06/23/25 at 1231, Intraprocedure Given06/23/2025 12:31 PM EDT60 mL latanoprost (Xalatan) 0.005 % ophthalmic solution 1 drop 1 drop, Both Eyes, Nightly, First dose on Mon06/21/25 at 2200, For 99 days Given06/23/2025 9:52 PM EDT1 fajwHhwhh13/26/2025 9:14 PM EDT1 dropGiven 06/21/2025 9:23 PM EDT1 drop lidocaine (PF) (Xylocaine) 10 mg/mL (1 %) injection As needed, Starting on Mon06/23/25 at 1124, Intraprocedure Given06/23/2025 11:24 AM EDT20 mL lisinopril tablet 5 mg 5 mg, oral, Daily RT, First dose (after last modification) on Mon06/25/25 at 0800, For 95 doses metoprolol tartrate (Lopressor) tablet 50 mg 50 mg, oral, 2 times daily, First dose on 06/21/25 at 1015, For 99 days Given06/24/2025 9:22 AM EDT50 ayXfdlh9706/23/2025 9:51 PM EDT50 hyRaszn4106/23/2025 8:43 AM EDT50 mg mometasone-formoterol (Dulera 100) 100-5 mcg/actuation inhaler 2 puff 2 puff, inhalation, 2 times daily RT, First dose on Mon06/21/25 at 2000, Rinse mouth with water after use to reduce aftertaste and incidence of candidiasis. Do not swallow. Given06/24/2025 9:23 AM EDT2 bwxmoHvduc90/27/2025 8:25 PM EDT2 puffsGiven 06/23/2025 8:44 AM EDT2 puffs nitroglycerin 100 mcg/mL 25ml CVL soln As needed, Starting on 06/23/25 at 1159, Intraprocedure Given06/23/2025 11:59 AM GFX537 mcg ondansetron HCl (PF) (Zofran) injection 4 mg [...] on 06/21/25 at 1006, For 99 days Oxygen Therapy Routine, Device: Nasal Cannula, Flow in liters per minute: 2 Lpm Oxygen On06/22/2025 9:35 AM EDTOxygen On06/21/2025 10:15 AM EDT pantoprazole (ProtoNix) EC tablet 40 mg 40 mg, oral, Daily at 7am, First dose on Mon06/21/25 at 1430, Do not crush, chew, or split., Indication: GERD Given06/24/2025 6:23 AM EDT40 kqStymo4006/23/2025 6:16 AM EDT40 bbAnzuy9406/22/2025 6:36 AM EDT40 mg pravastatin (Pravachol) tablet 40 mg 40 mg, oral, Nightly, First dose on Mon06/21/25 at 2200, For 99 days Given06/23/2025 9:51 PM EDT40 scRutun6806/22/2025 9:11 PM EDT40 oxQwbiw6406/21/2025 9:03 PM EDT40 mg sodium chloride 0.9 % infusion Continuous PRN, Starting on Mon06/23/25 at 1123, Intraprocedure Qyryhqwds13/27/2025 11:23 AM EDT50 mL/hr50 mL/hr sodium chloride flush 10 mL 10 mL, [...] For 99 days Given06/24/2025 9:23 AM EDT1 pdrmDlkji13/27/2025 8:25 PM EDT1 dropGiven 06/23/2025 8:45 AM EDT1 drop umeclidinium (Incruse Ellipta) 62.5 mcg/actuation inhalation 62.5 mcg 62.5 mcg (1 puff), inhalation, Daily RT, First dose on Mon06/21/25 at 1430 Given06/24/2025 9:22 AM EDT62.5 oviRfbxd12/27/2025 8:45 AM EDT62.5 mcgGiven 06/22/2025 7:42 AM EDT62.5 mcg verapamil (Isoptin) injection As needed, Starting on Mon06/23/25 at 1159, Intraprocedure Given06/23/2025 11:59 AM EDT1.25 mgdocumented in this encounter Active and Recently Administered Medications Times are shown in EDT.Medication Order// aspirin EC tablet 81 mg 81 mg, [...] 0923 (Given - Provider: Beth Randall, ZOFIA) clonazePAM (KlonoPIN) tablet 0.5 mg 0.5 mg, [...] Awad RN - Reason: Patient/family refused) * 2200 (Not Given - Provider: Alejo Donis RN [...] on Mon06/23/25 at 2200, For 99 days * 2151 (Given - Provider: Hellen Carmichael RN) * 09 (Given - Provider: Beth Randall RN) latanoprost [...] days * 0935 (Given - Provider: Alireza Awad, ZOFIA) * 2110 (Given - Provider: Alejo Donis [...] RN) * 0844 (Given - Provider: Beth Randall, ZOFIA) * 2024 (Given - Provider: Hellen Carmichael RN) * 0923 (Given - Provider: Beth Randall RN) Oxygen [...] Mon06/21/25 at 2200, For 99 days * 211 (Given - Provider: Alejo Donis RN) * 215 (Given - Provider: Hellen Carmichael RN) spironolactone (Aldactone) split tablet 12.5 mg 12.5 mg, oral, Daily, First dose on Mon06/24/25 at 1045, For 99 days * 1256 (Given - Provider: Beth Randall RN) timolol (Timoptic) 0.5 % ophthalmic solution 1 [...] (Given - Provider: Beth Randall, ZOFIA) * 0922 (Given - Provider: Beth Randall [...] RN) * 1629 (New Bag - Provider: Alireza Awad RN) * 1902 (Handoff - Provider: Alireza Awad RN) * 0714 (Handoff - Provider: Beth Randall RN) * 1110 (Stopped - Provider: Irma Dash RN - Comment: Per Dr. Beyer for cardiac cath) * 1336 (Stopped - Provider: Beth Randall, ZOFIA - Comment: hand off donewith blood bank laboratory technologist rn) Medication Order acetaminophen (Tylenol) tablet 650 mg 650 mg, oral, Every 6 hours PRN, mild pain (1-3 pain score), (1-3), Starting on 06/21/25 at 1006, For 99 days adenosine (Adenocard) (CANCELED) Continuous PRN, Starting on Mon06/23/25 at 1224, Intraprocedure * 1224 (New Bag - Provider: Irma Dash RN) * 1228 (Stopped - Provider: Irma Dash RN) albuterol 2.5 mg /3 mL (0.083 %) nebulizer solution 2.5 mg 2.5 mg, nebulization, Every 6 hours PRN, wheezing, Starting on 06/21/25 at 1012, For 99 days fentaNYL (Sublimaze) [...] * 1023 (Given - Provider: Nkechi Garcia, RN) melatonin tablet 5 mg 5 mg, oral, Nightly PRN, sleep, Starting on 06/21/25 at 1006, For 99 days midazolam (Versed) injection (COMPLETED) As needed, Starting on Mon06/23/25 at 1042, Intraprocedure * 1042 (Given - Provider: Nkechi Garcia, RN) * 1044 (Given - Provider: Nkechi Garcia, RN) * 1047 (Given - Provider: Nkechi Garcia [...] % infusion (COMPLETED) Continuous PRN, Starting on 06/23/25 at 1123, Intraprocedure * 1123 (Restarted - [...] DateEnd Date Geo Montejo DO [address] [place] [id number] PCP - GeneralFamily Medicine02/05/25documented as of this encounter
--- OUTSIDE RECORDS SUMMARY | 2025-07-01 06:55 | XMS_ITS | Continuity of Care Document ---
Author Organization [facility] Address [address] [place] [address] Phone Care Team Providers Care Plate Grainer Name Role Phone Geo Montejo DO Primary Care Provider Dre Looney MD Attending Provider Den Ponce PA-C Attending Provider Geo Montejo DO Attending Provider Care Teams Patient Care Team Team Status: Active Member Role/Relationship Status Dates Geo Montejo DO Primary Care Provider Active Visit Care Team Team Status: Inactive Member Role/Relationship Status Dates Geo Montejo DO Primary Care Provider Active Sta rt: April 10, 2025 End: April 10Dayna Nicholson ProviderActiveStart: April 10, 2025 End: April 10, 2025 Visit Care Team Team Status: Active Member Role/Relationship Status Dates Geo Montejo DO Primary Care Provider Active Sta rt: June 20, 2025 Ceci Gonzalez ProviderActiveStart: June 20, 2025 Patient Care Team Team Status: Inactive Member Role/Relationship Status Dates Geo Montejo DO Primary Care Provider Active Sta rt: July 01, 2025 End: July 01retenid Montejo DOAttcindy ProviderActiveStart: July 01, 2025 End: July 01, 2025 Chief Complaint and Reason for Visit Chief Complaint Admit Date CEA: 1 yr f/u COPD April 10, 2025 8: 33am hospital f/u July 01, 2025 1 0:17am Reason for Visit Admit Date COPD (chronic obstructive pulmonary dise ase) April 10, 2025 8:33am GERD (gastroesophageal reflux disease) A ugust 2024 8:33am COPD (chronic obstructive pulmonary dise ase) July 01, 2025 10:17am NSTEMI (non-ST elevated myocardial infar ction) July 01, 2025 10:17am Allergies, Adverse Reactions, Alerts Allergen Type Severity Reaction Last Updated Verified Status codeine Allergy Unknown Nausea, nauseated Novembe r 2024 11:13am Yes Active onabotulinumtoxinA Allergy Unknown dysphagia Novemb er 2024 11:13am Yes Active Social History Smoking Status Status Start Date End Date Date of Observa tion Ex-smoker (finding) December 14, 2023 12:37pm Observation Status Observation Response Date of Response Legal Sex [facility] (finding[facility] Family History Relationship Condition Age at Onset Recorded Date/T angie mother Coronary artery disease Unknown DeceasedUnknownfatherDeceasedUnknown Problems Active Problems Problem Diagnosis/Recorded Date Onset Date Stat Type 2 myocardial infarction February 12, 2025 12:56pm U nknown Active Left lumbar pain June 18, 2024 11:42am Unknown Active Rib pain on right side June 18, 2024 11:42am Unkn own Active Eustachian tube dysfunction March 19, 2024 1:24pm Unk nown Active Apnea, sleep October 17, 2023 3:17pm Unknown A ctive Fatigue March 19, 2024 1:19pm Unknown Activ e Hearing impaired December 27, 2018 8:53am Unknown Act jed Needs flu shot June 18, 2024 12:01pm Unknown Active Osteoporosis December 14, 2023 11:51am Unknown Act jed CHF (congestive heart failure) February 12, 2025 12:51pm Unknown Active Left sciatic nerve pain November 15, 2023 11:31am Unkno wn Active Depression November 14, 2023 4:38pm Unknown Acti ve Hyperlipidemia November 14, 2023 4:37pm Unknown Ac tive Hypernatremia March 17, 2025 8:49am Unknown Acti ve Oxygen dependent February 12, 2025 12:52pm Unknown Active Post-menopausal osteoporosis November 14, 2023 4:37pm U nknown Active NSTEMI (non-ST elevated myoc ardial infarction) July 01, 2025 11:44am Unknown Active Restless leg syndrome November 14, 2023 4:37pm Unknown Active Lumbar degenerative disc disease November 15, 2023 11:3 1am Unknown Active Weight loss December 24, 2024 1:29pm Unknown Acti ve Ischemic colitis November 14, 2023 4:37pm Unknown Active PAD (peripheral artery disease) November 14, 2023 4:37p m Unknown Active COPD (chronic obstructive pu lmonary disease) November 14, 2023 4:37pm Unknown Active Left hip pain November 15, 2023 11:59am Unknown Ac tive GERD (gastroesophageal reflux disease) March 07, 2019 1:53pm Unknown Active Foot fracture, right November 14, 2023 4:37pm Unknown Active Glaucoma March 07, 2019 1:53pm Unknown Activ e Hypertension November 14, 2023 4:37pm Unknown Acti ve Macular degeneration December 27, 2018 8:54am Unknown Active Pneumonia February 12, 2025 12:51pm Unknown Acti ve Fall June 18, 2024 11:41am Unknown A ctive Inactive/Resolved Problems Problem Diagnosis/Recorded Date Onset Date Stat us Hematoma January 11, 2019 4:03pm Unknown Resolv ed Pulmonary hypertension October 12, 2023 10:59am Unk nown Resolved Acute exacerbation of COPD w ith asthma March 07, 2019 1:53pm Unknown Resolved Medications Medication Status Dose Units Route Directions Qty Days Refills S tart Date Stop Date End Date Reason(s) Instructions Adherence Potassium Chloride 10 mEq ca psule, extended release Discontinued 20 MEQ PO Daily 180 3January 2024 12:26pmJune 2024 12:27pmClonazepam 0.5 mg tablet Discontinued0.5MGPODaily at mpokteu31506Vyend 2024 10:11amOctober 2024 2:18pmRestless legs syndrome Restless legs syndrome restless legAlbuterol Sulfate 2.5 mg /3 mL (0.083 %) solution for nebulization Active2.5MGINHALATIONThree times nyffe6952Wuf 2024 10:34amComplies with drug therapyClonazepam 0.5 mg tabletActive0.5MGPODaily at nbglnui94119Rpiuvwt 2024 2:17pmRestless legs syndrome Restless legs syndrome restless legComplies with drug therapyLatanoprost 0.005 % dropsActive0.005 PERCENTEYE-RIGHTDaily at bedtimePsychiatric 2017 12:00amglacomaComplies with drug therapyFluticasone Propion-Salmeterol (Advair Diskus) 250-50 mcg/dose blister with deviceDiscontinuedPsychiatric 2017 12:00amMay 2018 8:43am Potassium Chloride 10 mEq capsule, extended dqyyaqeSfgbhjfixequ25QGUUVLgrrl dailyPsychiatric 2017 12:00ambruary 2023 10:21amCarvedilol 6.25 mg tabletDiscontinued6.25MGPOTwice dailyPsychiatric 2017 12:00amJune 2024 12:18pmhtnPravastatin 40 mg ksvdhvCkrmkt31YCZJKtusqAxrahugr 2017 12:00am hyperlipidemiaComplies with drug therapyClonazepam 0.5 mg tabletDiscontinued0.5 MGPODaily at bedtimePsychiatric 2017 12:00amMarc 2023 10:37amrestless legLisinopril 5 mg ydxnjdXvlxmyaxckrg6TYZYKlhbfZjjopsla 2017 12:00am October 16, 2023 10:21amhtnLoteprednol Etabonate 0.5 % drops,suspension Discontinued0.5PERCENTEYE-KUONU48BAakzdzob 2017 12:00amMarc 2023 11:45amglacomaEsomeprazole Magnesium (Nexium) 20 mg Capsule,Delayed Release(Dr/Ec)Scanht58OUVEOanwuFxhoruic 2017 12:00amComplies with drug therapyTiotropium [place] (Spiriva With Handihaler) 18 mcg capsule, w/inhalation deviceDiscontinuedJuly 23, 2018 12:00amMa2018 8:43amFluticasone Propion-Salmeterol (Advair Hfa) 45-21 mcg/actuation Hfa Aerosol Inhaler DiscontinuedJuly 23, 2018 12:00amMa2018 8:43amBrimonidine-Timolol (Combigan) 0.2-0.5 % dropsDiscontinuedJuly 23, 2018 12:00amMa2018 8:43amAspirin (Aspir-81) 81 mg Tablet,Delayed Release (Dr/Ec)Bfrrvv83KTWXAjaqh July 23, 2018 12:00amComplies with drug therapyHydrocodone-Acetaminophen ([place]) 5-325 mg tabletDiscontinued0.5TABPOevery 6 to 8 hours as needed for pain, yyusqo3949Diemlrst 26th2017 12:00amNoveer 2017 12:02amUnspecified fracture of sacrum, initial encounter for closed fracturePotassium Chloride 10 mEq capsule, extended gtqihowQepkqlpfyntk09HAGWC OnceFebruary 2023 10:16amJanuary 2024 1:02pm2 capsules at [facility] Lisinopril 5 mg tgznqlJdlcioezgqfu28XNQHRpvxkLhwygpgq 2023 10:20amMarch 2023 10:33amhtnEsomeprazole Magnesium (Nexium) 20 mg Capsule,Delayed Release(Dr/Ec)DiscontinuedDecember 26, 2018 11:00pmy 2018 8:43am Ciprofloxacin-Dexamethasone 0.3-0.1 % drops,fxmutphpehHwpnmcyyldkr9AMSOQ EAR-RIGHTDaily at bedtimeMa2018 11:00pmJuly 2023 1:25pmTiotropium [place] (Spiriva With Handihaler) 18 mcg Capsule, W/Inhalation Device Dlmeqcytrvum90TBUVABBRJMFCHOunmwBnq 1st, 2019 11:00pmJanuary 2019 11:07am lmflEzmeahae-Hua-Cy-Lycopen-Lutein (Centrum Silver) 0.4-300-250 mg-mcg-mcg BqnqfpZhyslm7KJXHFJmfghFnx 1st, 2019 11:00pmComplies with drug therapyCalcium Carbonate-Vitamin D3 (Calcium 500 + D) 500 mg(1,250mg) -200 unit TabletActive1 TABPODailyMay 2018 11:00pmComplies with drug therapyFluticasone Propion- Salmeterol (Advair Hfa) 115-21 mcg/actuation Hfa Aerosol InhalerDiscontinued1 GYRBWHLPJCOEWJU21MDqt 2018 11:00pmJanuary 2019 11:07amcopd Brimonidine-Timolol 0.2-0.5 % eqsrfZjwqtixaeclq7VCIIBMKH-EITJBwtav dailyMay 2018 11:00pmJuly 2018 10:23amglacomaNature's Eye CcxhxokTaduxl3WBASBUndjx dailyMay 2018 11:00pmComplies with drug therapyIbandronate (Boniva) 150 mg VebqcxQjibkpqmmmjg735KBHNsalnz monthJuly 2018 11:00pmFebruary 2023 2:56pmTakes on the the Brimonidine-Timolol (Combigan) 0.2-0.5 % QufmaMhaqdh5CIVOASJT-IZTILicqs dailyJuly 2018 11:00pmComplies with drug therapyBenzonatate 100 mg VsmvebsFnprwotpilsn916UCDTJgezl times daily as needed for gafwh314Trlo 2018 11:00pmJanuary 2019 11:07amGuaifenesin (Mucinex) 600 mg Tablet Extended Release 40tnGhuzla8502IEZMOvvrx ensen09464Kzqh 2018 11:00pmtake scheduled for 7 days, then may take twice daily as need for congestionComplies with drug therapyPrednisone 10 mg oliovvSgkfnpqfvjoh64FI FUZdyei718Jiwx 2018 11:00pmJanuary 2019 11:05amstarting 7/15 4tabs daily x3days, then 3tabs daily x3days, then 2tabs daily x3days, then 1tab daily j7ywaiTvrwtjeqjrnc (Levaquin) 500 mg rqzabgOvekonedvlqt079ILASUgqcg330Aybi 2018 11:00pmFebruary 2023 10:22amAlbuterol Sulfate 2.5 mg /3 mL (0.083 %) solution for nebulizationDiscontinued2.5MGINHALATIONFebruary 2023 12:00amMarch 2023 12:05pmFreeTextSi ml prefilled vials Inhalation Three times a day; Note: Source Status: Taking; Provider: Gustabo Guardado RTorsemide 10 mg gahaceShueej70KUPOCbcyoLihnutbq 2023 12:00amFreeTextSi tablet Orally Once a day; Note: Source Status: Taking; Provider: Aure Erickson ( )Complies with drug sgcgxmhXdmqmbnbrwq-Sqanldpss-Glimlngw (Trelegy Ellipta) 100-62.5-25 mcg blister with chylivXfbdqsmgwvkq2NXJAHWZAAYESQ DailyFebruary 2023 12:00amJanuary 2024 1:02pmFreeTextSi puff Inhalation Once a day; Note: Source Status: Taking; Refills: 3; Provider: Gustabo temple RAcetaminophen (Tylenol) 325 mg tabletActiveMGPOFebruary 2023 12:00am FreeTextSi tablet as needed Orally every 7-8 hrs; Note: Source Status: Taking; Provider: Gustabo Guardado RComplies with drug therapyFluticasone Propionate 50 mcg/actuation spray,tlnffyzrriCnzfeohmxuxp8FASEMROCWUWOLCVQioccKfcytqlr 2023 12:00amJuly 2023 1:25pmFreeTextSi spray in each nostril Nasally Once a day; Note: Source Status: Taking; Provider: Aure Erickson ( )Citalopram (Celexa) 10 mg wtjsmvKwrzyfiyyfio84KBYPBermy556Wkfcy 2023 11:00pmApril 2024 1:39pmAlbuterol Sulfate 2.5 mg /3 mL (0.083 %) solution for nebulizationDiscontinued2.5MGINHALATIONThree times asmip4063Ypyqi 2023 12:04pmSeptember 2023 8:34amLisinopril 10 mg tabletDiscontinued 10MGPODailyMarch 2023 11:00pmJuly 2023 1:17pmFreeTextSi tablet Orally Once a day; Note: Source Status: Taking; Provider: Aure Erickson ( )Cholecalciferol (Vitamin D3) 25 mcg (1,000 unit) capsule Ulbrszgocerw95XUOLVFejkkVninl 2023 11:00pmMarch 2023 11:44am Betamethasone, Augmented 0.05 % snjstOsouid5EAMIYGPMCMXLJLwcms dailyMarch 2023 11:00pmFreeTextSi application Externally BID; Note: Source Status: Taking; Refills: 2; Qty: 30 Gram; Provider: Gustabo Guardado RComplies with drug therapyDenosumab (Prolia) 60 mg/mL vzmdjucIjmulgnjgolr34EYSCGGOFJqjkb 2023 11:00pmApril 2023 11:34amFreeTextSi mg Subcutaneous q 6 months; Note: Source Status: Not-Taking\PRN; Provider: Gustabo Guardado RKetoconazole 2 % shampoo Qcvjafzzjfol9ESULUUODPHQBQLuebr a WeekMarch 2023 11:00pmApril 2024 1:40pmClonazepam 0.5 mg tabletDiscontinued0.5MGPODaily at axrqhbo59848Dftga 2023 10:36amSeptember 2023 8:31amRestless legs syndrome Restless legs syndrome restless legMethylprednisolone (Medrol (Finn)) 4 mg tablets,dose packDiscontinued 4MGPOAs Jvlhjqbk236Arge 2023 11:00pmJuly 2023 1:17pmLisinopril 2.5 mg tabletDiscontinued2.5MGPODailyJuly 2023 11:00pmNovember 2024 11:43am Fluticasone Propionate 50 mcg/actuation spray,ntjsuhfgiuCurieg9JTNIVVQAXJSASTT Yemiw086Axce 2023 1:21pmDysfunction of eustachian tube Unspecified Eustachian tube disorder, unspecified ear1 spray in each nostril Nasally Once a dayComplies with drug therapyCiprofloxacin-Dexamethasone 0.3-0.1 % drops,yklulwqnraMypvmkespxuk3ZJYUMNSR-SAWIQGpkzg at bedtime7.55July 2023 1:24pmJuly 2024 9:02amDysfunction of eustachian tube Unspecified Eustachian tube disorder, unspecified ear4 drops to right ear QHS Azithromycin (Zithromax Z-Finn) 250 mg dilosfAzhdainoormm0SA.PSLFKRT96Ldwbiehus 18th, 2024 11:00pmOctober 2023 3:01pmFor 250 mg dose pack: take 500 mg today (day 1), then 250 mg for 4 days (days 2-5) POClonazepam 0.5 mg tablet Discontinued0.5MGPODaily at xlqgdwm55768Vmkvmvjck 19th, 2024 8:31amApril 2024 10:11amRestless legs syndrome Restless legs syndrome restless legAlbuterol Sulfate 2.5 mg /3 mL (0.083 %) solution for nebulization Discontinued2.5MGINHALATIONThree times lduus5235Vcaefnqua 19th, 2024 8:33amMay 2024 10:34amFluticasone Propionate 50 mcg/actuation spray,suspension Vlkooocvgwdc9GZCJOUUPLTGGOHGYawuj nrhed168Uudox 17th, 2024 11:00pmMay 2023 1:49pmadminister into each iwaicatCzilrdehgty-Ucukmxvru-Gkvcgvbj (Trelegy Ellipta) 100-62.5-25 mcg blister with hugaffPtedfyvaaore5QAYKVWGEMVUAYRaclm754 September 19, 2024 1:01pmApril 2024 2:01pmPotassium Chloride 10 mEq capsule, extended hugpzrtQktqmmndbrho65SNRJLZyet8110Zshmpff 2024 1:02pm September 23, 2024 12:27pmOxygen unitActive0.RouteAugust 2024 11:00pmAs directed 1 L/M DME WhkgwqsUsqjfeyaokh-Fsghcoltv-Honsugce (Trelegy Ellipta) 100-62.5-25 mcg blister with wknkjxFzjwjh6ADVCLWAWHMVSZOfect91Ovokv 2024 2:00pmComplies with drug therapyPrednisone 10 mg klzrwlFtieiuwhclgr22BFCRQtoz 2024 11:00pmJuly 2024 8:30amAmoxicillin-Pot Clavulanate 875-125 mg mstpplVbgtmhiyxqki4UEEVLIecur dailyJune 2024 11:00pmJuly 2024 8:29am Metoprolol Tartrate 25 mg kftblbYaenshlczslx03UBDLZdyuk dailyJune 2024 11:00pmNovember 2024 11:42amCiprofloxacin-Dexamethasone 0.3-0.1 % drops,tpgbgxwubvCzgeqo9UAJPOUQW-QGGWJVrieb at bedtime7.55July 2024 9:02am Dysfunction of eustachian tube Unspecified Eustachian tube disorder, unspecified ear4 drops to right ear QHS Complies with drug therapySpironolactone 25 mg kizdctFnyqyj23HOGDUapkpGmhpogma 2024 12:00amComplies with drug therapyMetoprolol Tartrate 50 mg tablet Cgpcur30XSZSRkwinRgwlevkn 4th, 2025 12:00amComplies with drug therapyLisinopril 5 mg thzlxwCkpzeg1NYZXFabsaGdfseejg 4th, 2025 12:00amComplies with drug therapy Immunizations Immunization Event Date Not Given Reason Dose Number 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 Lot Number Reason(s) Given Vaccine Information Statement (VIS) Detail Administration Location COVID-19 mRNA Comireulogio (DNsolution) September 26, 2020 COVID-19 mRNA, Comirnatyamile (DNsolution)October 17OVID-19 mRNA, Comirnatyamile (DNsolution)June 01, 2021Fluzone TIV High-Dose 65YR+June 05, 2015Fluzone TIV High-Dose 65YR+June 14, 2016Fluzone TIV High-Dose 65YR+May 30, 2017 Fluzone TIV High-Dose 65YR+May 16, 2018Fluzone TIV High-Dose 65YR+ May 24, 2022Fluzone TIV High-Dose 65YR+May 30, 2023Fluzone TIV High-Dose 65YR+June 18, 2024UT8437BAFP[facility] CastaliaFluzone QIV High-Dose 65YR+May 02, 2021influenza, unspecified formulationSeptember , 2013influenza, unspecified formulationOctober 2014influenza, unspecified formulationOctober , 2015influenza, unspecified formulation May 30, 2017influenza, unspecified formulationSeptember 2017 influenza, unspecified formulationSeptember 2020influenza, unspecified formulationSeptember , 2021influenza, unspecified formulationOctober neumococcal Conjugate Vaccine, 13 valentApril 2018Zoster Vaccine Recombinant, AdjuvantedOctober 2018Zoster Vaccine Recombinant, Adjuvanted August 16, 2019Trivalent Influenza VaccineOctober 2018Trivalent Influenza VaccineSeptember 2019Shingles (Zoster)June 06, 2013 Relevant Diagnostic Tests and/or Laboratory Data Laboratory Results Test Collection Date/Time Result Date/Time Result Interpretation Reference Range Result Comment Performing Site Thyroid Stimulating Hormone 3rd Gen June 20, 2025 7:10pm June 20, 2025 7:10pm 2.523 u[iU]/mL 0.358-3.740B-Type Natriuretic PeptideOct2024 7:10pmOctober 2024 7:93sg4295.0 pg/mL<=1800.0Anion GapOct2024 7:10pmOctober 2024 7:10pm14.0D-Dimer Quantitative (PE/DVT)June 20, 2025 7:10pmOctober 2024 7:10pm0.60 mg/L FEUAbove high normal<=0.59RESULTS CALLED TO TREVIN Giron RN @BY Jessee Salazar MLT at 2038Increases in D-Dimer concentration observed withthromboembolic events can be variable due to localization,size, and age of the thrombus. Therefore, a thromboembolicevent cannot be diagnosed with certainty on the basis of thereference range. D-Dimers may also be elevated for a varietyof disorders including advanced age, , coronarydisease, cancer, liver disease, infection, inflammation,hematoma, DIC, trauma, post-surge ry, diabetes, thrombolyticor anticoagulant therapy, stress, and generalizedhospitalization.Activated Partial Thromboplast TimeOctober 2024 7:10pmOctober 2024 7:10pm23.9 sec22.3-36.2Prothromb Time International RatioOct2024 7:10pmOctober 2024 7:10pm1.00DESIRED INR:2.0-3.0 CONDITIONS NOT LISTED BELOW2.5-3.5 FOR PROSTHETIC HEART VALVE REPLACEMENT2.5-3.5 RECURRENT THROMBOSISBasophils # (Auto)June 20, 2025 7:10pmOct2024 7:10pm0.1 10 3/uL0.0-0.1Urine Culture ReflexedOctober 2024 8:20pmNO Troponin I High SensitivityOct2024 10:24pmOct2024 10:24pm 603.2 pg/mLAbove upper panic limits4.0-51.3RESULTS CALLED TO ER Kathi Giron RN @BY Jessee Salazar MLT at 0018CUT-OFF POINTS HAVE BEEN ESTABLISHED BASED ON THE FOURTHUNIVERSAL DEFINITION OF MYOCARDIAL INFARCTION. THE UPPERREFERENCE LIMIT (URL) OF TROPONIN, DEFINED THE 99THPERCENTILE OF cTnI DISTRIBUTION IN A REFERENCE POPULATION,HAS BEEN CONFIRMED THE DECISION THRESHOLD FOR MIDIAGNOSIS.99TH PERCENTILE = 51.4 PG/MLNOTE: HIGH-SENSITIVITY TROPONIN ASSAY IS NOT INTENDED TO BEUSED IN ISOLATION BUT SHOULD BE INTERPRETED IN CONJUNCTIO NWITH OTHER DIAGNOSTIC AND CLINICAL INFORMATION.Albumin/Globulin RatioOct2024 7:10pmOct2024 7:10pm0.9Prothrombin TimeOct2024 7:10pmOctober 2024 7:10pm10.6 sec9.0-11.6Basophils (%) (Auto)June 20, 2025 7:10pmOctober 2024 7:10pm0.6 %0.2-2.0Urine Other CastsOctober 2024 8:20pmSEEN #/LPFAbnormal (applies to non-numeric results)NONE SEENAlbumin June 20, 2025 7:10pmOctober 2024 7:10pm3.4 g/dL3.4-5.0Eosinophils # (Auto)June 20, 2025 7:10pmOctober 2024 7:10pm0.2 10 3/uL0.0-0.7Urine Other CrystalsOct2024 8:20pmNone Seen #/HPFNone SeenAlkaline PhosphataseOct2024 7:10pmOctober 2024 7:10pm73 U/L46-116 Eosinophils (%) (Auto)June 20, 2025 7:10pmOctober 2024 7:10pm1.4 % 0.9-7.0Urine BacteriaOct2024 8:20pmTRACE #/HPFAbnormal (applies to non-numeric results)NONE SEENAlanine Aminotransferase (ALT/SGPT)June 20, 2025 7:10pmOctober 2024 7:10pm23 U/Z53-58TmjwkbblvkMxrhdxy 2024 7:10pmOctober 2024 7:10pm39.1 %36.0-48.0Urine BilirubinOctober 2024 8:20pmNEGATIVENEGATIVEAspartate Amino Transf (AST/SGOT)June 20, 2025 7:10pm June 20, 2025 7:10pm20 U/B36-71UtdgvvicezLcrzlap 24th, 2025 7:10pmOctober 2024 7:10pm12.7 g/dL12.0-16.0Urine Occult BloodOctober 2024 8:20pm NEGATIVENEGATIVEBUN/Creatinine RatioOct2024 7:10pmOctober 2024 7:10pm48.2Immature Granulocyte # (Auto)June 20, 2025 7:10pmOctober 2024 7:10pm0.20 10 3/uLAbove high normal0.00-0.03Urine AppearanceOct2024 8:20pmCLEARCLEARBlood Urea NitrogenOctober 2024 7:10pmOctober 2024 7:10pm66.0 mg/dLAbove high normal7.0-18.0Immature Granulocyte % (Auto) June 20, 2025 7:10pmOctober 2024 7:10pm1.5 %Above high normal0.0-0.5 Urine ColorOctober 2024 8:20pmLT. YELLOWYELLOWCalcium LevelOctober 2024 7:10pmOctober 2024 7:10pm10.1 mg/dL8.5-10.1Lymphocytes # (Auto) June 20, 2025 7:10pmOctober 2024 7:10pm2.7 10 3/uL1.2-3.8Urine Glucose (UA)June 20, 2025 8:20pmNEGATIVE mg/dLNEGATIVEChloride LevelOctober 2024 7:10pmOctober 2024 7:94pz071 mmol/T88-362Ufiyqljwbyd (%) (Auto)June 20, 2025 7:10pmOctober 2024 7:10pm20.8 %20.5-60.0Urine Hyaline CastsOctober 2024 8:20pmMODERATECarbon Dioxide LevelOctober 2024 7:10pmOctober 2024 7:10pm31.0 mmol/L21.0-32.0Mean Corpuscular HemoglobinOct2024 7:10pmOctober 2024 7:10pm30.9 pg26.7-34.0 Urine KetonesOctober 2024 8:20pmNEGATIVE mg/dLNEGATIVECreatinineOctober 2024 7:10pmOctober 2024 7:10pm1.37 mg/dLAbove high normal0.55-1.02 Mean Corpuscular Hemoglobin ConcentOctober 2024 7:10pmOctober 2024 7:10pm32.5 g/dL29.9-35.2Urine Leukocyte EsteraseOct2024 8:20pm NEGATIVENEGATIVEEstimated GFR ()June 20, 2025 7:10pmOctober 2024 7:94dy75Ibrtk low normal>=60 mL/min/1.73m 2Mean Corpuscular Volume June 20, 2025 7:10pmOctober 2024 7:10pm95.1 fL81.0-99.0Urine Mucus June 20, 2025 8:20pmNONE SEENNONE SEENEstimated GFR (Non- June 20, 2025 7:10pmOctober 2024 7:73it30Htjgp low normal>=60 mL/min/1.73m 2Monocytes # (Auto)June 20, 2025 7:10pmOctober 2024 7:10pm1.0 10 3/uLAbove high normal0.3-0.8Urine NitriteOct2024 8:20pm NEGATIVENEGATIVEGlobulinOct2024 7:10pmOctober 2024 7:10pm4.0 g/dLMonocytes (%) (Auto)June 20, 2025 7:10pmOctober 2024 7:10pm7.4 % 1.7-12.0Urine pHOct2024 8:20pm6.05.0-9.0Glucose LevelOct2024 7:10pmOctober 2024 7:57jh806 mg/dLAbove high taysqi31-530Ffdh Platelet VolumeOct2024 7:10pmOctober 2024 7:10pm10.3 fL9.5-13.5 Urine ProteinOct2024 8:20pmNEGATIVE mg/dLNEG/TRACEPotassium Level June 20, 2025 7:10pmOctober 2024 7:10pm4.0 mmol/L3.5-5.1Neutrophils # (Auto)June 20, 2025 7:10pmOctober 2024 7:10pm8.8 10 3/uLAbove high normal1.4-6.5Urine RBCOct2024 8:52yw3-3 #/HPF0-2Sodium LevelOct2024 7:10pmOctober 2024 7:36ok707 mmol/L812-693Miywhbmqowg (%) (Auto)June 20, 2025 7:10pmOctober 2024 7:10pm68.3 %43.0-75.0Urine Specific GravityOctober 2024 8:20pm1.0101.005-1.025Total BilirubinOct2024 7:10pmOct2024 7:10pm0.3 mg/dL0.2-1.0Platelet CountOct2024 7:10pmOctober 2024 7:41cj609 10 3/qZ838-945Ctumk Squamous Epithelial CellsOct2024 8:20pmRARE #/LPFNONE/RARETotal ProteinOct2024 7:10pmOctober 2024 7:10pm7.4 g/dL6.4-8.2Red Blood CountOct2024 7:10pmOctober 2024 7:10pm4.11 10 6/uLBelow low normal4.20-5.40 Urine UrobilinogenOctober 2024 8:20pm0.2 EU/dL0.2-1.0Red Cell Distribution WidthOct2024 7:10pmOct2024 7:10pm14.9 %11.0-15.0Urine WBC June 20, 2025 8:89lf9-7 #/HPFAbnormal (applies to non-numeric results)NONE SEENCorrected White Blood CountOctober 2024 7:10pmOctober 2024 7:10pm12.9 10 3/uLAbove high normal4.0-11.0 Vital Signs Vital Reading Result Reference Range Collection Date/Time Height 62 [in_i] April 10, 2025 7:74rmXoaipj35.45 kgAugust 2024 7:39amHeart Rate85 /min 60-100August 2024 7:39amRespiratory rate20 /rmv66-36Xefxpt 2024 7:39amOxygen saturation by Pulse ztbuiucu29 %95-100August 2024 7:45amBP Orjgzziz993 mm[Hg]100-140Augus2024 7:39amBP Hijrzmhph67 mm[Hg]60-100 April 10, 2025 7:39amBMI (Body Mass Index)17.9 kg/r8Goghrm 2024 7:39am Inhaled oxygen flow rate1 L/minAuminers' [facility]2024 7:76ruDprbad77 [in_i]July 01, 2025 11:28ysWignui62.18 kgJuly 01, 2025 11:00amHeart Rate78 /puo95-558 July 01, 2025 11:00amRespiratory rate18 /tjb52-05GpeelwikJuly 01, 2025 11:00am Oxygen saturation by Pulse ikinlvej63 %95-100July 01, 2025 11:00amBP Uceiutsx367 mm[Hg]100-140July 01, 2025 11:00amBP Fqghbkpya81 mm[Hg]60-100 July 01, 2025 11:00amBMI (Body Mass Index)16.9 kg/r1BpqpjwwcJuly 01, 2025 11:00amInhaled oxygen flow rate1 L/minJuly 01, 2025 11:00am Advance Directives Advance Directive Response Recorded Date/ Time Advance Directives No October 30 9:35am Insurance Providers Guarantor Ebony Hobson Address [address] [facility] [id number] Info.Home Phone: Payer Group Member ID Coverage Type Subscriber Relationship to Subscriber Effective Date Expiration Date Medicare Id: [id number] E Sullivan Id: [id number] [address] [facility] [address] Home Phone: Email: [email or web address] Augmented RealitySelf Encounters Encounter Location(s) Arrival/Admit Date Discharge/Departure Date Discharge/Departure Disposition Provider(s) Departed Physician/ Provider Office Visit -[facility] April 10, 2025 8:33am April 10, 2025 9:18am Discharged to home care or self care (routine discharge) Dre Looney MD Non-patient / Non-visit -[facility] O ctober 2024 8:10pm Alix Cabrera-CDeparted Physician/Provider Office Visit-[facility] Family [facility] 2024 10:[facility] 2024 11:53amDischarged to home care or self care (routine discharge)Geo Montejo , Recent Diagnosis Onset Date Admit Date COPD (chronic obstructive pulmonary disease) Unk nown April 10, 2025 8:33am GERD (gastroesophageal reflux disease) Unknown April 10, 2025 8:33am COPD (chronic obstructive pulmonary disease) Unk nowJuly 01, 2025 10:17am NSTEMI (non-ST elevated myocardial infarction) U nknown July 01, 2025 10:17am Assessments Diagnosis Onset Date Resolution Status Admit Date COPD (chronic obstructive pulmonary dise ase) acuteHershey 2024 8:33amGERD (gastroesophageal reflux disease[facility]:33amCOPD (chronic obstructive pulmonary disease)acuteNov2024 10:17amNSTEMI (non-ST elevated myocardial infarction)acuteJuly 01, 2025 10:17am Plan of Treatment Author Dre Looney [facility] 2024 12:21pmPatient is stable on present therapy. Will make no changes to present therapy as presently prescribed. She continues to require supplemental oxygen primarily with activity and sleeping. Patient states no refills are required at this time. Order was sent for pulmonary [facility] at [facility]. All questions were answered. The patient was advised to call us if there are any new respiratory issues or concerns. Author [place] Knowles [facility] 2024 11:52amReviewed her discharge summary, consults and diagnostics and labs. Patient has follow up with [employer] [employer] tomorrow and her family is getting her established with [facility] in [place]. Patient continues with 1L 02. She is following with clip on sunglasses inspector and they are making arrangements to transfer her oxygen supplies. The above note written by [place] Knowles, acting as human recorder, note dictated by Dr. Geo Montejo. Future Tests Future scheduled test information is unavailable Pending Tests Pending diagnostic test information is unavailable Future Visits Future appointment information is unavailable Future Procedures Future procedure information is unavailable Future Medications Future medication information is unavailable Patient Instructions Patient instructions are unavailable
--- OUTSIDE RECORDS SUMMARY | 2025-07-02 14:40 | XMS_ITS | Encounter Summary ---
Author Organization [facility] Address [address] [facility] [place] [address] Care Team Providers Care Workers' Compensation Claims Supervisor Name Role Phone Geo Montejo Primary Care Provider [phone] Reason for Visit * ReasonCommentsFollow-upPatient is here today for a follow up [facility] for a NSTEMI with cath and no stents. Patient states shewill be moving to [place] June the . Patient denies chest pain, palpitations/racing heart, edema, dizziness/lightheadedHypertensionNSTEMIHyperlipidemiaCongestive Heart Failure PSVTPulmonary HypertensionShortness of BreathSOB/CARUSO patient still using home o2 1 lpm via n/cFatigue Encounter Details DateTypeDepartmentCare Team (Latest Contact Info)Zslwuvttogi95/05/2025 2:40 PM ESTFollow-Up [facility] [address] [place] [id number] Jennifer Marroquin, SKYE [address] [place] [phone] Chronic diastolic heart failure (CMS/HCC) (Primary Dx) Social History Tobacco UseTypesPacks/DayYears UsedDateSmoking Tobacco: FormerCigarettesPassive Smoke Exposure: PastSmokeless Tobacco: NeverAlcohol UseStandard Drinks/Week CommentsYes0 (1 standard drink = 0.6 oz pure alcohol)occasionalC Utilities AnswerDate RecordedIn the past 12 months has the electric, gas, oil, or water [employer] threatened to shut off services in your [...] were you homeless or living in a detention (including now)?No06/21/2025Hunger Vital SignAnswerDate RecordedWithin the past 12 months, you worried that your food would run out before you got the money to buymore.Never true06/21/2025Ran Out of Food in the Last YearNot on file06/21/2025CommentsUnknownSex and Gender Information ValueDate RecordedSex Assigned at LljtpRstdpg80/07/2025 12:14 PM EDTLegal Sex Xnuwut5501/28/2025 8:42 AM EDTGender CcloswteNxllbm76/07/2025 12:14 PM EDTSexual OrientationHeterosexual or Mgwohrfh81/07/2025 12:14 PM EDTdocumented as of this encounter Last Filed Vital Signs Vital SignReadingTime TakenCommentsBlood Tnggmbru464/8411 3:23 PM EST Vlhsc930007/02/2025 3:23 PM ESTTemperature--Respiratory Rate--Oxygen Nfugsqyqak88% 07/02/2025 3:23 PM ESTo2 @ 1lpm via n/cInhaled Oxygen Concentration--Gvtlno17.7 kg (92 lb)07/02/2025 3:23 PM AHGHfljsn847.4 cm (5')07/02/2025 3:23 PM ESTBody Mass Index17.9707/02/2025 3:23 PM ESTdocumented in this encounter Functional Status * BPAnswerDate of XamhhjkmjhWbtdmk051/8411 3:23 PM Adenike Nicole MA * PulseAnswerDate of ErqddqyvypKfnspq9208/05/2025 3:23 PM Adenike Nicole MA * Patient PositionAnswerDate of XhzaikivtrZgpjxlZxzxvmk10/05/2025 3:23 PM Adenike Zarate MA * BPAnswerDate of PforokxtopSifkgc532/8407/02/2025 3:23 PM Adenike Nicole MA * PulseAnswerDate of SbhgbgiqxgNscuyt4933/05/2025 3:23 PM Adenike Nicole MA * RiZ6KaemfjTvje of FhbmbswqpiQqcwha1276 3:23 PM Adenike Nicole MA * BP LocationAnswerDate of AssessmentAuthorLeft arm07/02/2025 3:23 PM Adenike Zarate MA * Patient PositionAnswerDate of OousutgxulKyjeaiEksarra92/05/2025 3:23 PM Adenike Zarate MA documented as of this encounter Plan of Treatment NameTypePriorityAssociated DiagnosesOrder ScheduleBasic metabolic panelLab Routine Chronic diastolic heart failure (CMS/HCC) Expected: 07/02/2025 (Approximate), Expires: 07/02/2026documented as of this encounter Visit Diagnoses Diagnosis Chronic diastolic heart failure (CMS/HCC)- Primary Chronic diastolic heart failure documented in this encounter Care Teams Team MemberRelationshipSpecialtyStart DateEnd Date Geo Montejo DO [address] [place] [phone] PCP - GeneralFamily Medicine02/05/25documented as of this encounter
--- OUTSIDE RECORDS SUMMARY | 2025-07-02 16:14 | XMS_ITS | Clinical Summary ---
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)from Last 3 Months Social History Tobacco UseTypesPacks/DayYears UsedDateSmoking Tobacco: Never Assessed CommentsUnknownSex and Gender InformationValueDate RecordedSex Assigned at Scowfw7109/17/2024 4:10 PM ESTLegal SxsThimqf13/15/2023 6:38 PM EDTGender Identity Nrqjap3109/17/2024 4:10 PM ESTSexual OrientationNot on file Last Filed Vital Signs Vital SignReadingTime TakenCommentsBlood Hzqfupxg977/8210 12:00 PM EDT Pulse--Temperature--Respiratory Rate--Oxygen Saturation--Inhaled Oxygen Concentration--Seydxa11.8 kg (112 lb)01/11/2022 12:00 PM HRBQvpcdk138.5 cm (5' 2 )01/11/2022 12:00 PM EDTBody Mass Index20.49001/11/2022 12:00 PM EDT Plan of Treatment Health MaintenanceDue DateLast DoneCommentsPneumococcal Vaccine: 65+ Years (2 of 2 - PCV20 or PCV21)COVID-19 Vaccine (4 - 2024- season) , 10/17/2020, 09/26/2020Influenza Vaccine (#1)2025 06/18/2024, 05/30/2023, 05/24/2022, Additional history exists Insurance Care Teams Team MemberRelationshipSpecialtyStart DateEnd Date Geo Montejo DO [address] [place] [phone] PCP - GeneralFamily Medicine12/26/24
--- OUTSIDE RECORDS SUMMARY | 2025-07-02 16:15 | XMS_ITS | Encounter Summary ---
Author Organization [facility] Address [address] [place] [address] Care Team Providers Care Machine Operator Hop Picker Name Role Phone Geo Montejo Primary Care Provider [phone] Encounter Details DateTypeDepartmentCare Team (Latest Contact Info)Atpjzeaqtfl11/25/2025Travel Social History Tobacco UseTypesPacks/DayYears UsedDateSmoking Tobacco: FormerCigarettesPassive Smoke Exposure: PastSmokeless Tobacco: NeverAlcohol UseStandard Drinks/Week CommentsYes0 (1 standard drink = 0.6 oz pure alcohol)occasionalAHC Utilities AnswerDate RecordedIn the past 12 months has the electric, gas, oil, or water [place] [place] threatened to shut off services in your [...] were you homeless or living in a assisted (including now)?No06/21/2025Hunger Vital SignAnswerDate RecordedWithin the past 12 months, you worried that your food would run out before you got the money to buymore.Never true06/21/2025Ran Out of Food in the Last YearNot on file06/21/2025CommentsUnknownSex and Gender Information ValueDate RecordedSex Assigned at KhkgdIzljrk17/07/2025 12:14 PM EDTLegal Sex Brlbez1401/28/2025 8:42 AM EDTGender UqiaiefeByjsrc03/07/2025 12:14 PM EDTSexual OrientationHeterosexual or Zdkgzouy86/07/2025 12:14 PM EDTdocumented as of this encounter Functional Status * QuestionAnswerDate of IzgqimjmnxApngdlTV359/5206/21/2025 11:33 PM Juana No RNPulse7906/21/2025 11:33 PM Juana No RN * QuestionAnswerDate of AssessmentAuthorHeart Rate WtksysAqopfbz97/25/2025 4:06 PM Alireza Avendano RNPatient GvvlatcgYvlxu93/25/2025 4:06 PM Alireza Avendano, ZOFIA * [place] Fall RiskQuestionAnswerDate of AssessmentAuthorHistory of Falling, Immediate or Within 3 Niyvng147 8:42 PM Juana No RNSecondary Btikktcxk025/25/2025 8:42 PM Juana No, RNAmbulatory Qvx210 8:42 PM Juana No RNIntravenous Therapy/Heparin Gxhk7933 8:42 PM Juana No RNGait/Voznqkcwgggp7337/25/2025 8:42 PM Juana No RNMental Pvynxj968/25/2025 8:42 PM Juana No RNMorse Fall Risk Bzhdd7628/25/2025 8:42 PM Juana No RN * Sebas ScaleQuestionAnswerDate of AssessmentAuthorBraden No Risk Interventions Continue to assess patient according to level of care06/21/2025 8:42 PM Juana Helms, RNSensory Ieddkuubldo378/25/2025 8:42 PM Juana No RN Dwmbxetq032/25/2025 8:42 PM Juana No, GYZnwpdxtv165/25/2025 8:42 PM Juana No RNMobility31 8:42 PM Juana No RN Fwfbpeovd098/25/2025 8:42 PM Juana No, RNFriction and Shear3 06/21/2025 8:42 PM Juana No RNBraden Scale Rdpeb7063/25/2025 8:42 PM Juana No RN * [place] Fall Risk InterventionsQuestionAnswerDate of AssessmentAuthor [place] Fall Risk GtbxaijxctwbvEtkizrgz40/25/2025 8:42 PM Juana No RN * Pain Assessment TimerQuestionAnswerDate of AssessmentAuthorRestart Pain Assessment PyllkHmg70/25/2025 8:42 PM Juana No RN * Sepsis Model ScoresQuestionAnswerDate of AssessmentAuthorEarly Detection of Sepsis Score1.6406/21/2025 10:01 AM Gomez LyonsEarly Detection of Sepsis Score0.610 11:46 PM Gomez Lyons * Pain AssessmentQuestionAnswerDate of AssessmentAuthorPain Interventions Ncifunxt69/25/2025 10:31 AM Alireza Avendano RNPatient's Stated Pain GoalNo pain06/21/2025 8:42 PM Juana No RNClinical ProgressionNot changed 06/21/2025 8:42 PM Juana No RNPain Score0 - No pain06/21/2025 8:42 PM Juana No RNPain AssessmentNo/denies pain06/21/2025 8:42 PM Juana Helms RN * Audit Alcohol ScreeningQuestionAnswerDate of AssessmentAuthorHow often do you have a drink containing alcohol? 10:43 AM Jonnie Nolasco RN * Deterioration Index ScoreQuestionAnswerDate of AssessmentAuthorDeterioration Index Score17.4606/21/2025 10:01 AM Gomez Lyons * Head, Ears, Eyes, Nose, and Throat (HEENT)QuestionAnswerDate of Assessment AuthorHead, Ears, Eyes, Nose, and Throat (WDL)X1 8:42 PM Juana No RNR EyeMildly impaired uxeqkd8506/21/2025 8:42 PM Juana No RN L EyeMildly impaired jythqu3706/21/2025 8:42 PM Juana No RNR Ear Moderately impaired hearing;Hearing aid06/21/2025 8:42 PM Juana No RNL EarModerately impaired hearing;Hearing aid06/21/2025 8:42 PM Juana No RNTeethDentures upper06/21/2025 8:42 PM Juana No RN * Short Portable Mental StatusQuestionAnswerDate of AssessmentAuthorWhat are the date, month, year? 8:42 PM Juana No RNWhat is the day of the week? 8:42 PM Juana No RNWhat is the name of this place? 8:42 PM Juana No RNWhat is your phone number?0 06/21/2025 8:42 PM Juana No RNHow old are you? 8:42 PM Juana No RNWhen were you born? 8:42 PM EDTJones, Juana, RNWho is the current president? 8:42 PM Juana No RNWho was the president before him? 8:42 PM Juana No RNWhat was your mother's maiden name? 8:42 PM Juana oN RNCan you count backward from 20 by 3s? 11:00 AM Alireza Avendano RNShort Portable Mental Ucvmd350 11:00 AM Alireza Avendano RN * Fall Risk LevelQuestionAnswerDate of AssessmentAuthorMobility zoneLow (Green Zone)06/21/2025 8:42 PM Juana No RNMorse fall risk zoneLow (Green Zone)06/21/2025 8:42 PM Juana No RNMental status questionaire zone Low (Green Zone)06/21/2025 8:42 PM Juana No RN * QuestionAnswerDate of AssessmentAuthorPulse rate from Plethysmogram (bpm)81 06/21/2025 11:33 PM Juana No RN * Skin Assessment Sign offQuestionAnswerDate of AssessmentAuthorDual Sign-off - Admission/RehnwsxkByudhya29/25/2025 10:31 AM Alireza Avendano RNAny new wounds identified on admission/transfer?No06/21/2025 10:31 AM Alireza Avendano RN * Vital SignsQuestionAnswerDate of QqobbbfmuzBcztetBP520/5206/21/2025 11:33 PM Juana No RNTemp98.110 11:33 PM Juana No RNTemp src Npiwdbyk75/25/2025 8:42 PM Adonis Martines EMKrayr1669/25/2025 11:33 PM Juana Helms RNResp2406/21/2025 11:33 PM Juana No RNSpO296 06/21/2025 11:33 PM Juana No RNMAP (mmHg)6706/21/2025 11:33 PM Juana Helms RN * QuestionAnswerDate of AssessmentAuthorHeart Rate UjdfxnDempuav30/25/2025 4:06 PM Alireza Avendano RNBP LocationRight arm06/21/2025 4:06 PM Alireza Avendano RNBP XsninyScpafweev66/25/2025 4:06 PM Alireza Avendano RNCardiac MvudpwVMD84/25/2025 4:06 PM Alireza Avendano, RNPatient PositionLying 06/21/2025 4:06 PM Alireza Avendano RN * GastrointestinalQuestionAnswerDate of AssessmentAuthorGastrointestinal (WDL) WDL1 8:42 PM Juana No RN * Peripheral VascularQuestionAnswerDate of AssessmentAuthorPeripheral Vascular (WDL)X1 8:42 PM Juana No RNCapillary RefillLess than/equal to 2 seconds (All extremities)06/21/2025 8:42 PM Juana No RNPulses Right radial;Left radial;Right pedal;Left pedal1 8:42 PM Juana No RNEdemaRight lower extremity;Left lower exnhudfnw80/25/2025 8:42 PM Juana No RN * RUE Neurovascular AssessmentQuestionAnswerDate of AssessmentAuthorRight Radial Pulse+ 8:42 PM Juana No RN * LUE Neurovascular AssessmentQuestionAnswerDate of AssessmentAuthorLeft Radial Pulse+ 8:42 PM Juana No RN * RLE Neurovascular AssessmentQuestionAnswerDate of AssessmentAuthorRLE Edema Non-vioxvvc5106/21/2025 8:42 PM Juana No RNRight Pedal Pulse+2 06/21/2025 8:42 PM Juana No, ZOFIA * LLE Neurovascular AssessmentQuestionAnswerDate of AssessmentAuthorLLE Edema Non-gujisww7706/21/2025 8:42 PM Juana No RNLeft Pedal Pulse+2 06/21/2025 8:42 PM Juana No RN * MusculoskeletalQuestionAnswerDate of AssessmentAuthorMusculoskeletal (WDL)WDL 06/21/2025 8:42 PM Juana No RN * PsychosocialQuestionAnswerDate of AssessmentAuthorPsychosocial (WDL)WDL 06/21/2025 8:42 PM Juana No RN * QuestionAnswerDate of AssessmentAuthorUrine ColorUnable to pkuxsx9806/21/2025 8:32 PM Noemí No PCT * [place] Fall RiskQuestionAnswerDate of AssessmentAuthorHistory of Falling, Immediate or Within 3 Tzyzmd952 8:42 PM Juana No RNSecondary Vhwnjazli312/25/2025 8:42 PM Juana No RNAmbulatory Rks389 8:42 PM Juana No RNIntravenous Therapy/Heparin Koks4569 8:42 PM Juana No RNGait/Dixdwsjybkwk8338/25/2025 8:42 PM Juana No RNMental Hjkrcb389 8:42 PM Juana No RNMorse Fall Risk Jzbwl1554 8:42 PM Juana No RN * Sebas ScaleQuestionAnswerDate of AssessmentAuthorBraden No Risk Interventions Continue to assess patient according to level of care06/21/2025 8:42 PM Juana Helms RNSensory Huddfwmbugr233/25/2025 8:42 PM Juana No RN Zfsvctki817/25/2025 8:42 PM Juana No, QBDidijlbt376/25/2025 8:42 PM Juana No RNMobility 8:42 PM Juana No RN Pjngpuzae778/25/2025 8:42 PM Juana No, RNFriction and Shear3 06/21/2025 8:42 PM Juana No RNBraden Scale Dqagn7270/25/2025 8:42 PM Juana No RN * CardiacQuestionAnswerDate of AssessmentAuthorCardiac (WDL)WDL1 8:42 PM Juana No RN * RespiratoryQuestionAnswerDate of AssessmentAuthorBilateral Breath Sounds Diminished;Clear06/21/2025 8:42 PM Juana No RNRespiratory Pattern Dnsell7906/21/2025 8:42 PM Juana No RNChest AssessmentChest expansion shkyplfaxie69/25/2025 8:42 PM Juana No RNRespiratory (WDL)X 06/21/2025 8:42 PM Juana No RNRespiratory HcmlupMrtrwwkwf71/25/2025 8:42 PM Juana No RNBreath SoundsBilateral breath jwwquc1306/21/2025 8:42 PM Juana No RN * Cultural Requests During HospitalizationAnswerDate of AssessmentAuthornone 06/21/2025 10:00 PM Juana No RN * Spiritual Requests During HospitalizationAnswerDate of AssessmentAuthornone 06/21/2025 10:00 PM Juana No, ZOFIA * GenitourinaryQuestionAnswerDate of AssessmentAuthorGenitourinary (WDL)WDL 06/21/2025 10:31 AM Alireza Avendano RN * NeurologicalQuestionAnswerDate of AssessmentAuthorNeuro (WDL)WDL1 8:42 PM Juana No RNSwallowAble to swallow solids and liquids without njlzscegnr06/25/2025 8:42 PM Juana No RN * Safe EnvironmentQuestionAnswerDate of AssessmentAuthorArm Bands OnID;Allergies 06/21/2025 8:42 PM Juana No RNSide Rails/Bed Safety2/410 8:42 PM Juana No RNBed UdtudjNo25/25/2025 11:00 AM Alireza Avendano, RNThe Patient's Environment is JfsbGeo26/25/2025 8:42 PM Juana No, RN * MobilityQuestionAnswerDate of YmpnvfdrcrYnbqarKqscchlgui45/25/2025 8:42 PM EDT Juana Person, RNActivity PerformedWalked to bathroom;Resting in bed 06/21/2025 8:42 PM Juana No, RNRepositionedTurns self06/21/2025 8:42 PM Juana No, RNHead of Bed ElevatedSelf vronmswsu85/25/2025 8:42 PM Juana No, RNHeels/FeetHeels elevated off bed06/21/2025 8:42 PM EDT Juana Person RNRange of MotionActive;All gwvvlfijzwg56/25/2025 8:42 PM Juana Helms, RNAnti-Embolism DevicesBilateral;Sequential compression devices, below knee06/21/2025 8:42 PM Juana No, RNAnti-Embolism GmtftwrlzfidUbd75/25/2025 8:42 PM Juana No, RNPositioning Frequency Able to turn self06/21/2025 8:42 PM Juana No, RN * HygieneQuestionAnswerDate of AssessmentAuthorLinen changePartial linen change 06/21/2025 11:00 AM Alireza Avendano RNSkin CarePer self06/21/2025 11:00 AM Alireza Avendano RNHygienePer self06/21/2025 11:00 AM Alireza Avendano RNOral CarePer self06/21/2025 11:00 AM Alireza Avendano RNLevel of EhbfyoagwqEhjvtphmhyj87/25/2025 11:00 AM Alireza Avendano RNIs Patient Total Care?No06/21/2025 11:00 AM Alireza Avendano RNIncontinence Protective IghoqvpSxie26/25/2025 11:00 AM Alireza Avendano RN * PrecautionsQuestionAnswerDate of AssessmentAuthorPrecautionsBleeding;Fall 06/21/2025 8:42 PM Juana No RN * ADL ScreeningQuestionAnswerDate of AssessmentAuthorDo you snore or wake up gasping for air?No06/21/2025 10:41 AM Jonnie Nolasco RNCan you bring in your CPAP/BiPAP from home?N/A1 10:41 AM Jonnie Nolasco RN Patient's Vision Adequate to Safely Complete Daily QxpzrrkrtxEej68/25/2025 10:41 AM Jonnie Nolasco RNPatient's Judgment Adequate to Safely Complete Daily FubfskszwjCve90/25/2025 10:41 AM Jonnie Nolasco RNPatient's Memory Adequate to Safely Complete Daily AguxdixeavKjb17/25/2025 10:41 AM Jonnie Nolasco RNPatient Able to Express Needs/GvgtjijVdr47/25/2025 10:41 AM Jonnie Stone RNDressingIndependent06/21/2025 10:41 AM Jonnie Nolasco RNGroomingIndependent06/21/2025 10:41 AM Jonnie Nolasco RN SeebpydVqlashgrzpk66/25/2025 10:41 AM Jonnie Nolasco RNBathing Kokdcehsztd16/25/2025 10:41 AM Jonnie Nolasco RNToiletingIndependent 06/21/2025 10:41 AM Jonnie Nolasco RNIn/Out YncTbayzqkoodb04/25/2025 10:41 AM Jonnie Nolasco RNWalks in XvihXuqvaahayov45/25/2025 10:41 AM Jonnie Nolasco RNWeakness of EiwbZplu90/25/2025 10:41 AM Jonnie Nolasco RNWeakness of Arms/VholgChtr60/25/2025 10:41 AM Jonnie Nolasco RNHearing - Right EarHearing aid06/21/2025 10:41 AM Jonnie Nolasco RN Hearing - Left EarHearing aid06/21/2025 10:41 AM Jonnie Nolasco RNWhich is your dominant hand?Left06/21/2025 10:41 AM Jonnie Nolasco RN * ConsultsQuestionAnswerDate of AssessmentAuthorSpiritual Care Consult NeededNo 06/21/2025 10:43 AM Jonnie Nolasco RNSocial Services Consult NeededYes (Comment)06/21/2025 10:43 AM Jonnie Nolasco RNPalliative Care Consult LpuhqfKp70/25/2025 10:43 AM Jonnie Nolasco RN * Therapy ConsultsQuestionAnswerDate of AssessmentAuthorPT Evaluation Needed1 06/21/2025 10:41 AM Jonnie Nolasco RNOT Evaluation Qpcqeh413 10:41 AM Jonnie Nolasco RNSLP Evaluation Trgojx545/25/2025 10:41 AM Jonnie Stone RN * Assistive DevicesQuestionAnswerDate of AssessmentAuthorAssistive Devices Dentures upper;Dentures lower;Hearing aid - left;Hearing aid - right;Qlnhbdzpob07/25/2025 10:41 AM Jonnie Nolasco RN * [place] Fall Risk InterventionsQuestionAnswerDate of AssessmentAuthor [place] Fall Risk JmcxivxsyxjaxZqcjpghx81/25/2025 8:42 PM Juana No RN * Suicidal IdeationQuestionAnswerDate of AssessmentAuthor1. Wish to be (Lifetime)No06/21/2025 10:44 AM Jonnie Nolasco RN2. Non-Specific Active Suicidal Thoughts (Lifetime)No06/21/2025 10:44 AM Jonnie Nolasco RN * Pain AssessmentQuestionAnswerDate of AssessmentAuthorPain Interventions Ssybbrce36/25/2025 10:31 AM Alireza Avendano RNPatient's Stated Pain GoalNo pain06/21/2025 8:42 PM Juana No RNClinical ProgressionNot changed 06/21/2025 8:42 PM Juana No RNPain Score0 - No pain06/21/2025 8:42 PM Juana No RNPain AssessmentNo/denies pain06/21/2025 8:42 PM Juana Helms, ZOFIA * NutritionQuestionAnswerDate of AssessmentAuthorDiet UptqXZX15/25/2025 11:00 AM Alireza Avendano RNFeedingAble to feed self06/21/2025 8:42 PM Juana No, LCMknrukmhAlxs59/25/2025 11:00 AM Alireza Avendano RN * IntegumentaryQuestionAnswerDate of AssessmentAuthorIntegumentary (WDL)WDL 06/21/2025 8:42 PM Juana No RN * QuestionAnswerDate of AssessmentAuthorLast BM Wksb9130303/25/2025 3:00 PM Alireza Yang RNStool HnuzyHqpyy15/25/2025 3:00 PM Alireza Avendano RN Stool MuxsyxbzmoMpkaem02/25/2025 3:00 PM Alireza Avendano RN * Audit Alcohol ScreeningQuestionAnswerDate of AssessmentAuthorHow often do you have a drink containing alcohol? 10:43 AM Jonnie Nolasco RN * QuestionAnswerDate of AssessmentAuthorPatient Goal for Treatmentdischarge 06/21/2025 10:00 PM Juana No RN * Drug ScreeningQuestionAnswerDate of AssessmentAuthorHave you used any substances (canabis, cocaine, heroin, hallucinogens, inhalants, etc.) in the past12 months?No06/21/2025 10:43 AM Jonnie Nolasco RNHave you used any prescription drugs other than prescribed in the past 12 months?No06/21/2025 10:43 AM Jonnie Nolasco RN * Modified Malnutrition Screening Tool (MST)QuestionAnswerDate of Assessment AuthorHave you recently lost weight without trying?010/ 10:46 AM Jonnie Stone RNHave you been eating poorly because of a decreased appetite? 10:46 AM Jonnie Nolasco RNOn home tube feeding or TPN? 10:46 AM Jonnie Nolasco RNDoes patient have a stage 2-4 pressure ulcer? 10:46 AM Jonnie Nolasco RN * Weight Loss ScoreAnswerDate of VztnvfuemxNtdter308/25/2025 10:46 AM Jonnie Nolasco RN * Malnutrition ScoreAnswerDate of SqwxnjgzbeDesdjb464/25/2025 10:46 AM Jonnie Stone RN documented as of this encounter Plan of Treatment Not on file documented as of this encounter Visit Diagnoses Not on filedocumented in this encounter Care Teams Team MemberRelationshipSpecialtyStart DateEnd Date Geo Montejo DO [address] [place] [phone] PCP - GeneralFamily Medicine02/05/25documented as of this encounter
--- OUTSIDE RECORDS SUMMARY | 2025-07-02 16:15 | XMS_ITS | Clinical Summary ---
Author Organization [facility] Address [address] [place] [address] Care Team Providers Care Project Designer Name Role Phone Geo Montejo Primary Care Provider Allergies Active AllergyReactionsCriticalityNoted DateCommentsCodeineNausea OnlyMedium 08/31/20238026IwuufhzeseerfqtvmvSanobal12/04/2025 Medications MedicationSigDispense QuantityRefillsLast FilledStart DateEnd DateStatus albuterol [...] sprays into each nostril two times daily.Active pravastatin (Pravachol) 40 mg tablet Take 40 mg by mouth at bedtime.ctive metoprolol tartrate (Lopressor) 50 mg tablet Indications:Atrial tachycardiaTake 1 tablet (50 mg) by mouth two times daily. 180 tablet /ctive torsemide (Demadex) 10 mg tablet Indications:Acute on chronic diastolic heart failure (CMS/HCC),Pulmonary hypertension (CMS/HCC)Take 2 tablets (20 mg) by mouth in the morning. Increase torsemide to 20mg daily x7 days then alternate days of 10mg and 20mg daily 180 tablet 5Active CALCIUM CARBONATE-VITAMIN D3 ORAL Take 1 tablet by mouth in the morning.Active latanoprost (Xalatan) 0.005 % ophthalmic solution Daily at wspkoue4807/23/2018Active esomeprazole (NexIUM) [address] capsule in the morning.07/23/2018Active zbwfuqzjnpo-onzyblvzg-lqgzltbj 100-62.5-25 mcg blister with device in the morning.5Active brimonidine-timoloL (Combigan) 0.2-0.5 % ophthalmic solution in the morning and at bedtime.03/07/2019Active spironolactone (Aldactone) 25 mg tablet Indications:Chronic diastolic heart failure (CMS/HCC)Take 0.5 tablets (12.5 mg) by mouth in the morning. 15 tablet 6Active lisinopril 5 mg tablet Indications:Chest painTake 1 tablet (5 mg) by mouth in the morning. Do not start before June 25, 2025. 30 tablet 5Active acetaminophen (Tylenol) 325 mg tablet Take 325 mg by mouth every 4 (four) hours if needed.10/16/2023ctive metoprolol tartrate (Lopressor) 25 mg tablet Take 1 tablet by mouth Twice daily at 6am and 6pm.5Active lisinopril 2.5 mg tablet Take 2.5 mg by mouth in the morning.Discontinued(Stop Taking at Discharge) potassium chloride CR (Klor-Con) 10 mEq ER tablet Take 20 mEq by mouth in the morning.06/24/2025Discontinued(Stop Taking at Discharge) predniSONE (Deltasone) 10 mg tablet Take 10 mg by mouth in the morning.06/24/2025Discontinued(Stop Taking at Discharge) spironolactone (Aldactone) 25 mg tablet Indications:Chronic diastolic heart failure (CMS/HCC)Take 0.5 tablets (12.5 mg) by mouth in the morning for 99 doses. 15 tablet Discontinued Active Problems ProblemNoted DateDiagnosed DateAcute exacerbation of COPD with vndhtr1107/02/2025 Apnea, sleep07/02/2025HF (congestive heart failure)07/02/2025Depression 07/02/2025Eustachian tube kawzejfswlt49/05/4680Ujdi47/05/1709Opskzqa89/05/2025 Foot fracture, right07/02/2025GERD (gastroesophageal reflux disease)07/02/2025 Diehgwow62/05/6362Ogaeurjo13/05/1044Mssnrwztswklt24/05/2025Hypertension 07/02/2025Ischemic ezupafr4507/02/2025Left lumbar pain07/02/2025Left sciatic nerve pain07/02/2025Lumbar degenerative disc dcvyncc2707/02/2025Macular degeneration 07/02/2025Needs flu shot07/02/2025Oxygen eyortlpsn77/05/2025PAD (peripheral artery disease)07/02/20259572Hertjcnnh67/05/2025Post-menopausal osteoporosis 07/02/2025Restless leg afqdthwb59/05/2025Rib pain on right side07/02/2025 Unspecified hearing loss, unspecified ear07/02/2025Weight loss07/02/2025hronic diastolic heart roomibs1206/22/2025 Assessment & Plan (06/23/2025 10:01 AM EDT): Patient has history of heart failure preserved EF based on echo in March 16 2555 to 60%, NYHA class IV Patient seems well compensated Assessment & Plan (06/22/2025 10:39 AM EDT): Patient has history of heart failure preserved EF based on echo in March 16 2555 to 60%, NYHA class IV Patient seems well compensated Acute on chronic heart failure with preserved ejection fraction (HFpEF) 06/21/2025Pulmonary HTN06/21/2025ute hypoxic respiratory sqqufcg8206/21/2025 Chronic hypoxic respiratory failure, on home oxygen sogdeph4006/21/2025 Assessment & Plan (06/23/2025 10:01 AM EDT): - on 1L home O2. Stable Assessment & Plan (06/22/2025 10:39 AM EDT): - on 1L home O2. Stable Assessment & Plan (06/21/2025 2:30 PM EDT): - on 1L home O2. Stable NSTEMI (non-ST elevated myocardial infarction)06/21/2025 Assessment & Plan (06/23/2025 10:01 AM EDT): - Trops trending down in the last one of 94 - EKG consistent with sinus rhythm right bundle branch block Last cardiac cath 2019 negative for significant coronary artery disease - Continue heparin gtt, plan for echo and cardiac cath today -Continue aspirin, Plavix, pravastatin, lisinopril and Lopressor - Patient is DNRCCA Assessment & Plan (06/22/2025 10:39 AM EDT): - Trops trending down in the last one of 94 - EKG consistent with sinus rhythm right bundle branch block Last cardiac cath 2019 negative for significant coronary artery disease - Continue heparin gtt, plan for echo as well as Lexiscan stress test in a.m. -Continue aspirin, Plavix, pravastatin, lisinopril and Lopressor - Patient is DNRCCA Assessment & Plan (06/21/2025 2:30 PM EDT): - Given the likely inconsistent medication/metoprolol administration, concern she could have gone into SVT, explaining the PVCs and the complete resolution of CP now that she is in sinus. - Cardiology onboard - Trend trops/EKGs - Lexiscan in AM - Tte pending - Continue heparin gtt - Patient is DNRCCA Former cigarette vvpgaw6902/09/2024enign essential rnligoxshnwq87/04/2024 Assessment & Plan (06/23/2025 10:01 AM EDT): Continue above-mentioned medication Assessment & Plan (06/22/2025 10:39 AM EDT): Continue above-mentioned medication Assessment & Plan (06/21/2025 2:30 PM EDT): Continue lisinopril and metoprolol Chest pain08/31/2023 Assessment & Plan (06/23/2025 10:01 AM EDT): - Trops trending down in the last one of 94 - EKG consistent with sinus rhythm right bundle branch block Last cardiac cath 2019 negative for significant coronary artery disease - Continue heparin gtt, plan for echo and cardiac cath today -Continue aspirin, Plavix, pravastatin, lisinopril and Lopressor - Patient is DNRCCA Assessment & Plan (06/22/2025 10:39 AM EDT): - Trops trending down in the last one of 94 - EKG consistent with sinus rhythm right bundle branch block Last cardiac cath 2019 negative for significant coronary artery disease - Continue heparin gtt, plan for echo as well as Lexiscan stress test in a.m. -Continue aspirin, Plavix, pravastatin, lisinopril and Lopressor - Patient is DNRCCA Assessment & Plan (06/21/2025 2:30 PM EDT): - Given the likely inconsistent medication/metoprolol administration, concern she could have gone into SVT, explaining the PVCs and the complete resolution of CP now that she is in sinus. - Cardiology onboard - Trend trops/EKGs - Lexiscan in AM - Tte pending - Continue heparin gtt - Patient is DNRCCA COPD (chronic obstructive pulmonary disease)08/31/2023 Assessment & Plan (06/23/2025 10:01 AM EDT): - Resume home inhalers, patient currently on Dulera and Incruse Ellipta Assessment & Plan (06/22/2025 10:39 AM EDT): - Resume home inhalers, patient currently on Dulera and Incruse Ellipta Assessment & Plan (06/21/2025 2:30 PM EDT): - Resume home inhalers Wpvljgr3708/31/20236167Cjnpv75/04/8600Ymiqwsvj00/04/1200Cgznioonvnmmvq17/04/2024 Paroxysmal supraventricular urqkmvikywl92/04/2024 Assessment & Plan (06/23/2025 10:01 AM EDT): - Trops trending down in the last one of 94 - EKG consistent with sinus rhythm right bundle branch block Last cardiac cath 2019 negative for significant coronary artery disease - Continue heparin gtt, plan for echo and cardiac cath today -Continue aspirin, Plavix, pravastatin, lisinopril and Lopressor - Patient is DNRCCA Assessment & Plan (06/22/2025 10:39 AM EDT): - Trops trending down in the last one of 94 - EKG consistent with sinus rhythm right bundle branch block Last cardiac cath 2019 negative for significant coronary artery disease - Continue heparin gtt, plan for echo as well as Lexiscan stress test in a.m. -Continue aspirin, Plavix, pravastatin, lisinopril and Lopressor - Patient is DNRCCA Assessment & Plan (06/21/2025 2:30 PM EDT): - Given the likely inconsistent medication/metoprolol administration, concern she could have gone into SVT, explaining the PVCs and the complete resolution of CP now that she is in sinus. - Cardiology onboard - Trend trops/EKGs - Lexiscan in AM - Tte pending - Continue heparin gtt - Patient is DNRCCA Encounters DateTypeDepartmentCare XnfhMrgyachurbp56/05/2025 2:40 PM ESTFollow-Up [facility] [place] [address] [place] [address] Jennifer Marroquin CNP Chronic diastolic heart failure (CMS/HCC) (Primary Dx)07/01/2025Ref[facility] [place] [address] [place] [address] Karen Brennan MA 06/23/2025 1:45 PM EDT - 06/23/2025 3:00 PM EDTSurgery [facility] Vascular Lab [address] [place] [phone] Nestor Beyer MD Coronary angiography [[id number] (CPT??)]06/21/2025 9:55 AM EDT - 06/24/2025 3:00 PM EDTHospital Encounter [facility] [address] [place] [address] Giorgio Aguilar MD Saad, Hani, MD Chest pain (Primary Dx); NSTEMI (non-ST elevated myocardial infarction) (CMS/HCC); Nonrheumatic mitral valve regurgitation; Nonrheumatic tricuspid valve regurgitation; Chest pain, unspecified type; Coronary artery disease 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[place]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; Chronic diastolic heart failure (CMS/HCC) Discharge Disposition: Home or Self Care (01)06/21/2025 12:55 AM EDT - 06/21/2025 12:56 AM EDTEmergency [facility] Emergency [address] [place] [phone] Discharge Disposition: ED Dismiss - Never Arrived (100)06/21/2025Travel 06/05/2025 10:20 AM EDTOffice Visit [facility] [address] [place] [address] Jennifer Marroquin CNP Chronic diastolic heart failure (CMS/HCC) (Primary Dx); Pulmonary hypertension (CMS/HCC); Atrial tachycardia, multifocal; Paroxysmal supraventricular tachycardia; Mixed hyperlipidemia; Benign hypertensive heart disease with heart failure (CMS/HCC)04/08/2025 2:15 PM EDTOffice Visit [facility] [address] [place] [address] Bautista Knox MD Atrial tachycardia, multifocal (Primary Dx)04/02/2025Telephone [facility] [address] [place] [address] Adenike Phillips MA 04/01/2025Telephone [facility] [address] [place] [address] Karen Brennan MA from Last 3 Months Family History RelationNameStatusCommentsFatherDeceasedMotherDeceased Social History Tobacco UseTypesPacks/DayYears UsedDateSmoking Tobacco: FormerCigarettesPassive Smoke Exposure: PastSmokeless Tobacco: Never Tobacco Cessation:Counseling Given: Not Answered Alcohol UseStandard Drinks/WeekCommentsYes0 (1 standard drink = 0.6 oz pure alcohol)occasionalAHC UtilitiesAnswerDate RecordedIn the past 12 months has the Quarterly, Exclusively.in, oil, or water [employer] threatened to shut off services in your home?No06/21/2025Humiliation, Afraid, Rape, and Kick questionnaireAnswerDate RecordedWithin the last year, have you been afraid of your partner or ex-partner?No06/21/2025Emotionally AbusedNot on file06/21/2025Physically Abused Not on file06/21/2025Sexually AbusedNot on file06/21/2025Overall Financial Resource Strain (CARDIA)AnswerDate RecordedHow hard is it for you to pay for the very basics like food, housing, medical care, and heating?Not hard at all 06/21/2025TransportationAnswerDate RecordedIn the past 12 months, has lack of transportation kept you from medical appointments or from getting medications?No 06/21/2025Lack of Transportation (Non-Medical)Not on file06/21/2025Housing Stability Vital SignAnswerDate RecordedIn the last 12 months, was there a time when you were not able to pay the mortgage or rent on time?No06/21/2025Number of Times Moved in the Last YearNot on file06/21/2025t any time in the past 12 months, were you homeless or living in a penitentiary (including now)?No06/21/2025 Hunger Vital SignAnswerDate RecordedWithin the past 12 months, you worried that your food would run out before you got the money to buymore.Never true06/21/2025 Ran Out of Food in the Last YearNot on file06/21/2025CommentsUnknownSex and Gender InformationValueDate RecordedSex Assigned at KhodxNvedst38/07/2025 12:14 PM EDTLegal BdtSxtvfs19/03/2025 8:42 AM EDTGender UufckcilHfhkna63/07/2025 12:14 PM EDTSexual OrientationHeterosexual or Pcdgjlbj17/07/2025 12:14 PM EDT Last Filed Vital Signs Vital SignReadingTime TakenCommentsBlood Usukxavk139/8407/02/2025 3:23 PM EST Sgnte630207/02/2025 3:23 PM QGLXgrauujtprk20.1 ??C (98.8 ??F)06/24/2025 4:44 AM EDTRespiratory Jlax421306/24/2025 1:00 PM EDTOxygen Bkaqafxiiw08%07/02/2025 3:23 PM ESTo2 @ 1lpm via n/cInhaled Oxygen Concentration--Tabhof63.7 kg (92 lb) 07/02/2025 3:23 PM ZIOWqrhvv795.4 cm (5')07/02/2025 3:23 PM ESTBody Mass Index 17.9707/02/2025 3:23 PM EST Plan of Treatment Health MaintenanceDue DateLast DoneCommentsMedicare Annual Wellness (AWV) 1Depression Rrgafitre02[birth year]14/1952Adult Qniepfb1207/11/1963Pneumococcal Vaccine: 50+ Years (2 of 2 - PPSV23, PCV20, or PCV21)COVID- 19 Vaccine ( - season), 10/17/2020, 09/26/2020 Influenza Vaccine (#1)/, 05/30/2023, 05/24/2022, Additional history existsFall Risk Vuzasjqql76Zoster VaccinesCompleted 08/16/2019, 06/03/2019, 06/06/2013HIB VaccinesAged OutNo longer [...] to complete this topic Procedures Procedure NamePriorityDate/TimeAssociated DiagnosisCommentsMAGNESIUMPending Cwkasuacq37/28/2025 4:41 AM EDT BASIC METABOLIC PANELPending Qwoczqsya95/28/2025 4:41 AM EDT HEMOGLOBIN AND HEMATOCRIT, BLOODPending Loqnctmjx35/28/2025 4:41 AM EDT FRACTIONAL FLOW RESERVE (FFR)Lfqcvxy6006/23/2025 12:32 PM EDT NSTEMI (non-ST elevated myocardial infarction) (CMS/HCC) RIGHT HEART MKIJMmxtyxq53/27/2025 12:32 PM EDT NSTEMI (non-ST elevated myocardial infarction) (CMS/HCC) CORONARY NTRUBLJOJSNEnzaabj41/27/2025 12:32 PM EDT NSTEMI (non-ST elevated myocardial infarction) (CMS/HCC) ACTIVATED CLOTTING DEDLZgcdubw80/27/2025 12:31 PM EDT ACTIVATED CLOTTING XIJGAfsjsgv58/27/2025 12:13 PM EDT %OXW5Gvjqzsm42/27/2025 11:54 AM EDT ECHO ABORTED UBJYYDZWQLrabenh66/27/2025 11:01 AM EDT LAVENDER FJRPkhsjne58/27/2025 4:26 AM EDT LIGHT GREEN HKXBlvjbpr37/27/2025 4:26 AM EDT EXTRA YMNCWMnmqbsx62/27/2025 4:26 AM EDT ANTI-FACTOR XAPending Bmxcrtjkj23/27/2025 4:26 AM EDT ANTI-FACTOR XAPending Isxarikxe23/26/2025 5:01 AM EDT CBCPending Ckknfawpl95/26/2025 5:01 AM EDT BASIC METABOLIC PANELPending Onhlkjfdo66/26/2025 5:01 AM EDT HIGH SENSITIVITY TROPONIN DXyzgy7706/21/2025 11:15 PM EDT ANTI-FACTOR CWEqyvm95/25/2025 11:15 PM EDT HIGH SENSITIVITY TROPONIN HSysfo2706/21/2025 5:07 PM EDT ANTI-FACTOR SNQdtti38/25/2025 5:07 PM EDT HIGH SENSITIVITY TROPONIN RBhslz8906/21/2025 11:43 AM EDT SQCTXQHY88/25/2025 11:43 AM EDT ECG 12-IOYAULVQ56/25/2025 11:36 AM EDT COMPLETE ECHO (TTE)Tyjftln8106/21/2025 11:01 AM EDT XR CHEST 1 QNQQQWPT33/25/2025 10:24 AM EDT B-TYPE NATRIURETIC IPAZYKGTYYI26/25/2025 10:15 AM EDT CBC WITH AUTO KAJVBTJORGCUTLJO00/25/2025 10:15 AM EDT PYDFOJRTTAABC61/25/2025 10:15 AM EDT HIGH SENSITIVITY TROPONIN ISTAT1 10:15 AM EDT CBC AND KOEQQQKYAERWSRJP83/25/2025 10:15 AM EDT BASIC METABOLIC JPXBQALBJ96/25/2025 10:15 AM EDT LACTIC ACID, AIMHOSPRMO73/25/2025 10:14 AM EDT from Last 3 Months Results * (ABNORMAL) Hemoglobin and hematocrit, blood (06/24/2025 4:41 AM EDT)Component ValueRef RangeTest MethodAnalysis TimePerformed AtPathologist Signature Ydwiwhyahw93.9(L)12.0 - 15.0 g/dL06/24/2025 5:54 AM [facility] ([facility])Evqjplusrw47.9(L)36.0 - 45.0 %06/24/2025 5:54 AM [facility] ([facility])Specimen (Source)Anatomical Location / LateralityCollection Method / VolumeCollection TimeReceived TimeBloodVenous blood specimen / Unknown Venipuncture / Mlqxkpp1406/24/2025 4:41 AM EDT1 5:22 AM EDT Narrative Authorizing ProviderResult TypeResult StatusNestor Beyer [facility] BLOOD ORDERABLES Final ResultPerforming OrganizationAddressCity/State/ZIP CodePhone Number [facility] ([facility]) [address] [place] [address] * Magnesium (06/24/2025 4:41 AM EDT) Only the most recent of2 resultswithin the time period is included. ComponentValueRef RangeTest MethodAnalysis TimePerformed AtPathologist Signature Magnesium1.91.9 - 2.7 mg/dL06/24/2025 5:47 AM [facility] ([facility]) Specimen (Source)Anatomical Location / LateralityCollection Method / Volume Collection TimeReceived TimeBloodVenous blood specimen / UnknownVenipuncture / Bmjorzt8606/24/2025 4:41 AM EDT1 5:22 AM EDT Narrative Authorizing ProviderResult TypeResult StatusWoody Barriga MDLAB BLOOD ORDERABLES Final ResultPerforming OrganizationAddressCity/State/ZIP CodePhone Number [facility] ([facility]) [address] [place] [address] * (ABNORMAL) Basic metabolic panel (06/24/2025 4:41 AM EDT) Only the most recent of3 resultswithin the time period is included. ComponentValueRef RangeTest MethodAnalysis TimePerformed AtPathologist Signature Pqqozb354327 - 145 mmol/L1 5:47 AM [facility] ([facility]) Potassium3.93.5 - 5.1 mmol/L1 5:47 AM [facility] ([facility]) Dnplapqf448(H)98 - 107 mmol/L1 5:47 AM [facility] ([facility])CO2 2221 - 31 mmol/L1 5:47 AM [facility] ([facility])HBG421 - 25 mg/dL06/24/2025 5:47 AM [facility] ([facility])Creatinine0.59(L)0.60 - 1.20 mg/dL06/24/2025 5:47 AM [facility] ([facility])Hqhkxwd0717 - 100 mg/dL06/24/2025 5:47 AM [facility] ([facility])Calcium8.98.6 - 10.3 mg/dL 06/24/2025 5:47 AM [facility] ([facility])Anion Uhq022 - 20 mmol/L 06/24/2025 5:47 AM [facility] ([facility])eGFR89.4>60.0 mL/min/1.73m*2 06/24/2025 5:47 AM [facility] ([facility])Comment:The [facility]???s estimated glomerular filtration rate (eGFR) will no longer include consideration of race in its calculation. The National Kidney Foundation???s eGFR Task Force developed new recommendations for the estimation of the glomerular filtration rate in the [place] They recommend immediate implementation of the new equation refit without the race variable in all la boratories because the calculation does not include race. In addition to not including race in the calculation and reporting, it included diversity in its development, and has acceptable performance characteristics and potential consequences that do not disproportionately affect any one group of individuals. BUN/Creatinine Ratio20. 5:47 AM EDTMIMBRES [facility] ([place])Specimen (Source)Anatomical Location / LateralityCollection Method / VolumeCollection TimeReceived TimeBloodVenous blood specimen / UnknownVenipuncture / Unknown 06/24/2025 4:41 AM EDT1 5:22 AM EDT Narrative Authorizing ProviderResult TypeResult StatusWoody MARTIN BLOOD ORDERABLES Final ResultPerforming OrganizationAddressCity/State/ZIP CodePhone Number [facility] ([facility]) [address] [place] [address] * CORONARY ANGIOGRAPHY, RIGHT HEART CATH, FRACTIONAL FLOW RESERVE (FFR) (06/23/2025 12:32 PM EDT)Anatomical RegionLateralityModalityOtherSpecimen (Source)Anatomical Location / LateralityCollection Method / VolumeCollection TimeReceived Time Narrative 06/23/2025 1:20 PM EDT PROCEDURE PHYSICIAN: Nestor Beyer MD Clinical Presentation: 84 y.o. Female with history of SVT, COPD, HFpEF, HLD, pulmonary HTN. Patient presented with chest pain to [facility]. She had nausea, chest pain radiating to jaw and left arm, lightheadedness. EKG showed sinus rhythm with RBBB. Peak HS-troponin 603, then trended down. She was started on a heparin gtt and transferred to [facility] for management of NSTEMI. She also [...] and a micropuncture access technique a 6 Turkish sheath was placed in the right internal jugular vein. ??The Lau catheter was advanced under fluoroscopic and hemodynamic monitoring to the right atrium. ??Pressure obtained of the right atrium, right ventricle, pulmonary artery, pulmonary capillary position. ??Oxygen saturation drawn for the pulmonary artery and Martina cardiac with a cardiac index were calculated. 1% lidocaine was infiltrated over the left radial artery. ??A 6-Turkish Terumo Glidesheath slender was placed in left [...] was maintained at >250 seconds. A 6 Turkish sharing.it JL 3.5 guide was engaged to the left main. The Adeptence pressurewireX was zeroed outside of the body. [...] acute on chronic HFpEF Authorizing ProviderResult TypeResult StatusGeormaggie Cruz [facility] CARDIAC CATH PROCEDURESFinal Result * (ABNORMAL) Activated clotting time (06/23/2025 12:31 PM EDT) Only the most recent of2 resultswithin the time period is included. ComponentValueRef RangeTest MethodAnalysis TimePerformed AtPathologist Signature Activated Clotting Bmny729(H)82 - 152 06/24/2025 7:07 AM EDTMIMBRES [facility] ([place])Specimen (Source)Anatomical Location / LateralityCollection Method / VolumeCollection TimeReceived TimeBloodVenous blood specimen / Nviqayy2306/23/2025 12:31 PM EDT1 7:07 AM EDT Narrative Authorizing ProviderResult TypeResult StatusWoody MARTIN POINT OF CARE TEST DOCKED DEVICE UNSOLICITED RESULTSFinal ResultPerforming OrganizationAddress City/State/ZIP CodePhone Number [facility] ([facility]) [address] [place] [address] * (ABNORMAL) %HbO2 (06/23/2025 11:54 AM EDT)ComponentValueRef RangeTest Method Analysis TimePerformed AtPathologist SdnoqvhrgE0Fq%64.9(L)90.0 - 95.0 % 06/23/2025 11:54 AM EDTMIMBRES [facility] ([facility])Specimen (Source)Anatomical Location / LateralityCollection Method / VolumeCollection TimeReceived Time BloodVenous blood specimen / Hijzykm6206/23/2025 11:54 AM EDT1 11:54 AM EDT Narrative Authorizing ProviderResult TypeResult StatusHani Linus MARTIN POINT OF CARE TEST DOCKED DEVICE UNSOLICITED RESULTSFinal ResultPerforming OrganizationAddress City/State/ZIP CodePhone Number [facility] ([facility]) [address] [place] [address] * ECHO ABORTED PROCEDURE (06/23/2025 11:01 AM EDT)Anatomical RegionLaterality ModalityOtherSpecimen (Source)Anatomical Location / LateralityCollection Method / VolumeCollection TimeReceived Time06/23/2025 10:02 AM EDT Narrative 06/23/2025 11:41 AM EDT 1 [facility] Heart Station [address] [place] [address] [phone] (fax) Transesophageal Echocardiogram-[facility] Name: ALEKSANDR SANCHEZ Study Date: 06/23/2025 10:02 AM B/P: 132 mmHg/78 mmHg HR: Date of : 1940 Location: [facility] Height: 60 in. Age: 84 year(s) [...] (Opiates) 50 micrograms Procedure Staff Reading Group: [facility] Director Regulatory Agency: Sara Mccarthy RDCS ??Ordering Physician: Varinder Cruz MD ?? Procedure Note Xochitl Maradiaga MD - 06/23/2025 1 [facility] Heart Station [address] [place] [address] [phone] (fax) Transesophageal Echocardiogram-[facility] Name: ALEKSANDR SANCHEZ Study Date: 06/23/2025 10:02 AM B/P: 132 mmHg/78 mmHg HR: Date of : 1940 Location: [facility] Height: 60 in. Age: 84 year(s) Patient Room: [facility] Weight: 92 lb. Gender: Female Patient Status: [...] (Opiates) 50 micrograms Procedure Staff Reading Group: [facility] Director Regulatory Agency: Sara Mccarthy RDCS Ordering Physician: Varinder Cruz MD Authorizing ProviderResult TypeResult StatusGeorge Anthony [facility] [place] ECHO PROCEDURESFinal Result * Lavender Top (06/23/2025 4:26 AM EDT)ComponentValueRef RangeTest Method Analysis TimePerformed AtPathologist SignatureExtra TubeHold for add-ons. 06/23/2025 6:01 AM [facility])Comment:Auto resulted.Specimen (Source)Anatomical Location / LateralityCollection Method / VolumeCollection TimeReceived TimeBloodVenous blood specimen / Bbnkaeo5406/23/2025 4:26 AM EDT 06/23/2025 4:38 AM EDT Narrative Authorizing ProviderResult TypeResult Darline MARTIN BLOOD ORDERABLES Final ResultPerforming OrganizationAddressCity/State/ZIP CodePhone Number [facility] ([facility]) [address] [place] [address] * Light Green Top (06/23/2025 4:26 AM EDT)ComponentValueRef RangeTest Method Analysis TimePerformed AtPathologist SignatureExtra TubeHold for add-ons. 06/23/2025 6:01 AM [facility] ([facility])Comment:Auto resulted.Specimen (Source)Anatomical Location / LateralityCollection Method / VolumeCollection TimeReceived TimeBloodVenous blood specimen / Fftbpqc4506/23/2025 4:26 AM EDT 06/23/2025 4:38 AM EDT Narrative Authorizing ProviderResult TypeResult Darline MARTIN BLOOD ORDERABLES Final ResultPerforming OrganizationAddressCity/State/ZIP CodePhone Number [facility] ([facility]) [address] [place] [address] * Anti-Xa (Heparin Level) (06/23/2025 4:26 AM EDT) Only the most recent of4 resultswithin the time period is included. ComponentValueRef RangeTest MethodAnalysis TimePerformed AtPathologist Signature Anti-Xa (Heparin)0.410.3 - 0.7 IU/mL06/23/2025 5:08 AM [facility] ([facility])Comment:Rivaroxaban and Apixaban will interfere with the anti Xa assay used to monitor UFH and LMWH.Specimen (Source)Anatomical Location / Laterality Collection Method / VolumeCollection TimeReceived TimeBloodVenous blood specimen / UnknownVenipuncture / Buvjefa8206/23/2025 4:26 AM EDT1 4:35 AM EDT Narrative Authorizing ProviderResult TypeResult Michelle MARTIN BLOOD ORDERABLES Final ResultPerforming OrganizationAddressCity/State/ZIP CodePhone Number [facility] ([facility]) [address] [place] [address] * (ABNORMAL) CBC (06/22/2025 5:01 AM EDT)ComponentValueRef RangeTest Method Analysis TimePerformed AtPathologist SignatureAuto WBC10.544.00 - 10.60 10*3/uL06/22/2025 5:44 AM [facility] ([facility])RBC3.75(L)3.80 - 5.00 10*6/uL06/22/2025 5:44 AM [facility] ([facility])Bupnrijere70.6(L)12.0 - 15.0 g/dL06/22/2025 5:44 AM [facility] ([facility])Yllelkabmp39.3(L)36.0 - 45.0 %06/22/2025 5:44 AM [facility] ([facility])MCV94.182.0 - 98.0 fL 06/22/2025 5:44 AM [facility] ([facility])MCH30.927.0 - 33.0 pg 06/22/2025 5:44 AM [facility] ([facility])MCHC32.932.0 - 35.0 g/dL 06/22/2025 5:44 AM [facility] ([facility])RDW15.2(H)11.5 - 15.0 % 06/22/2025 5:44 AM [facility] ([facility])Fbinapfjy234521 - 400 10*3/uL 06/22/2025 5:44 AM [facility] ([facility])Specimen (Source)Anatomical Location / LateralityCollection Method / VolumeCollection TimeReceived Time BloodVenous blood specimen / UnknownVenipuncture / Owwuqiz5806/22/2025 5:01 AM EDT1 5:23 AM EDT Narrative Authorizing ProviderResult TypeResult StatusAndrew Jerome PA-CLAB BLOOD ORDERABLESFinal ResultPerforming OrganizationAddressCity/State/ZIP CodePhone Number [facility] ([facility]) [address] [place] [address] * (ABNORMAL) High Sensitivity Troponin I (06/21/2025 11:15 PM EDT) Only the most recent of4 resultswithin the time period is included. ComponentValueRef RangeTest MethodAnalysis TimePerformed AtPathologist Signature High Sensitivity Troponin I94(HH)<15 ng/L1 12:46 AM [facility] ([facility])Specimen (Source)Anatomical Location / LateralityCollection Method / VolumeCollection TimeReceived TimeBloodVenous blood specimen / Unknown Venipuncture / Ghhozse0006/21/2025 11:15 PM EDT1 11:43 PM EDT Narrative Authorizing ProviderResult TypeResult StatusAndrew Jerome PA-CLAB BLOOD ORDERABLESFinal ResultPerforming OrganizationAddressCity/State/ZIP CodePhone Number [facility] ([facility]) [address] [place] [address] * aPTT - baseline (06/21/2025 11:43 AM EDT)ComponentValueRef RangeTest Method Analysis TimePerformed AtPathologist NsjvilqwwtFWZ23.425.0 - 35.0 Seconds 06/21/2025 1:18 PM [facility] ([facility])Comment:Clinical significance of the APTT is questionable in the presence of heparin.Specimen (Source) Anatomical Location / LateralityCollection Method / VolumeCollection Time Received TimeBloodVenous blood specimen / UnknownVenipuncture / Unknown 06/21/2025 11:43 AM EDT1 11:57 AM EDT Narrative Authorizing ProviderResult TypeResult StatusAndrew Jerome PA-CLAB BLOOD ORDERABLESFinal ResultPerforming OrganizationAddressCity/State/ZIP CodePhone Number [facility] ([facility]) [address] [place] [address] * ECG 12 lead (06/21/2025 11:36 AM EDT)ComponentValueRef RangeTest Method Analysis TimePerformed AtPathologist SignatureVentricular Nxaj97UBRHK MUSE Atrial Qsbk66GUFZG MUSEPR Lvkobijr252urZR MUSEQRS BTBAVLNF442xdGG MUSEQT Zmycruwi875ioUN MUSEQTC CALCULATION(BAZETT)476msGE MUSEP Basb33atpvzrrKG MUSE R-Oqyw91zczqgmdWK MUSET Wave Pyiv40ryabghgWF MUSESpecimen (Source)Anatomical Location / LateralityCollection Method / [...] on 06/21/2025 1:20:56 PM Authorizing ProviderResult TypeResult StatusAndfrancisco javier Cano PA-CECG ORDERABLESFinal ResultPerforming OrganizationAddressCity/State/ZIP CodePhone Number [facility] * COMPLETE ECHO (TTE) (06/21/2025 11:01 AM EDT)Anatomical RegionLaterality ModalityOtherSpecimen (Source)Anatomical Location / LateralityCollection Method / VolumeCollection TimeReceived Time06/21/2025 10:38 AM EDT Narrative 06/22/2025 10:12 PM EDT 1 [facility] Heart Station [address] [place] [address] [phone] (fax) Echocardiogram-[facility] Name: ALEKSANDR SANCHEZ Study Date: 06/21/2025 10:38 AM B/P: 150 mmHg/67 mmHg HR: Date of : 1940 Location: [facility] Height: 60 in. Age: 84 year(s) [...] reviewed the examination Procedure Staff Reading Group: [facility] Director Regulatory Agency: Sara Mccarthy RDCS ??Ordering Physician: DERICK CANO ?? Procedure Note Varinder Cruz MD - 06/22/2025 1 1 [facility] Heart [facility] [address] [place] [address] [phone] (fax) Echocardiogram-[facility] Name: ALEKSANDR SANCHEZ Study Date: 06/21/2025 10:38 AM B/P: 150 mmHg/67 mmHg HR: Date of : 1940 Location: [facility] Height: 60 in. Age: 84 year(s) [...] reviewed the examination Procedure Staff Reading Group: [facility] Director Regulatory Agency: Sara Mccarthy [facility] Ordering Physician: DERICK CANO Authorizing ProviderResult TypeResult StatusDerick Cano PA-CCV ECHO PROCEDURES Final Result * [...] Electronically signed: Blayne Dwyer. Authorizing ProviderResult TypeResult Halley Cano PA-CIMG XR PROCEDURES Final Result * (ABNORMAL) CBC auto differential (06/21/2025 10:15 AM EDT)ComponentValueRef RangeTest MethodAnalysis TimePerformed AtPathologist SignatureAuto WBC11.80(H) 4.00 - 10.60 10*3/uL06/21/2025 10:39 AM [facility] ([place])RBC4.17 3.80 - 5.00 10*6/uL06/21/2025 10:39 AM [facility] ([place])Hemoglobin 12.812.0 - 15.0 g/dL06/21/2025 10:39 AM [facility] ([facility]) Oftycpqcju98.036.0 - 45.0 %06/21/2025 10:39 AM [facility] ([facility]) MCV93.582.0 - 98.0 fL06/21/2025 10:39 AM [facility] ([facility])MCH30.7 27.0 - 33.0 pg06/21/2025 10:39 AM [facility] ([facility])MCHC32.832.0 - 35.0 g/dL06/21/2025 10:39 AM [facility] ([facility])RDW15.2(H)11.5 - 15.0 %06/21/2025 10:39 AM [facility] ([facility])Neutrophils %64.540.0 - 72.0 %06/21/2025 10:39 AM [facility] ([facility])Lymphocytes %26.420.0 - 45.0 %06/21/2025 10:39 AM [facility] ([facility])Monocytes %6.85.0 - 12.0 %06/21/2025 10:39 AM [facility] ([facility])Eosinophils %1.30.0 - 6.0 %06/21/2025 10:39 AM [facility] ([facility])Basophils %0.70.0 - 1.0 %06/21/2025 10:39 AM [facility] ([facility])Neutrophils Absolute7.61(H) 1.60 - 7.60 10*3/uL06/21/2025 10:39 AM [facility] ([facility]) Lymphocytes Absolute3.121.20 - 4.00 10*3/uL06/21/2025 10:39 AM [facility] ([facility])Monocytes Absolute0.800.10 - 1.00 10*3/uL06/21/2025 10:39 AM [facility] ([facility])Eosinophils Absolute0.150.00 - 0.50 10*3/uL 06/21/2025 10:39 AM [facility] ([facility])Basophils Absolute0.080.00 - 0.20 10*3/uL06/21/2025 10:39 AM [facility] ([facility])Cnbordyjn171079 - 400 10*3/uL06/21/2025 10:39 AM [facility] ([facility])nRBC %0.00 % 06/21/2025 10:39 AM [facility] ([facility])Immature Granulocytes %0.30.0 - 1.0 %06/21/2025 10:39 AM [facility] ([facility])Immature Granulocytes Absolute0.040.00 - 0.20 10*3/uL06/21/2025 10:39 AM [facility] ([facility])Specimen (Source)Anatomical Location / LateralityCollection Method / VolumeCollection TimeReceived TimeBloodVenous blood specimen / Unknown Venipuncture / Wwbhmiw9006/21/2025 10:15 AM EDT1 10:24 AM EDT Narrative Authorizing ProviderResult TypeResult StatusAndrew Jerome PA-CLAB BLOOD ORDERABLESFinal ResultPerforming OrganizationAddressCity/State/ZIP CodePhone Number [facility]) [address] [place] [address] * (ABNORMAL) B-type natriuretic peptide (06/21/2025 10:15 AM EDT)ComponentValue Ref RangeTest MethodAnalysis TimePerformed AtPathologist EdnxjxswrZCK134(H)0 - 100 pg/mL06/21/2025 10:52 AM [facility] ([facility])Specimen (Source) Anatomical Location / LateralityCollection Method / VolumeCollection Time Received TimeBloodVenous blood specimen / UnknownVenipuncture / Unknown 06/21/2025 10:15 AM EDT1 10:24 AM EDT Narrative Authorizing ProviderResult TypeResult StatusAndrew Jerome PA-CLAB BLOOD ORDERABLESFinal ResultPerforming OrganizationAddressCity/State/ZIP CodePhone Number [facility]) [address] [place] [address] * Lactic acid, plasma (06/21/2025 10:14 AM EDT)ComponentValueRef RangeTest MethodAnalysis TimePerformed AtPathologist SignatureLactate1.40.5 - 2.2 mmol/L 06/21/2025 10:47 AM [facility]TM[facility] ([place])Specimen (Source)Anatomical Location / LateralityCollection Method / VolumeCollection TimeReceived Time BloodVenous blood specimen / UnknownVenipuncture / Xkduboq8506/21/2025 10:14 AM EDT1 10:22 AM EDT Narrative Authorizing ProviderResult TypeResult StatusAndrew Jerome PA-CLAB BLOOD ORDERABLESFinal ResultPerforming OrganizationAddressCity/State/ZIP CodePhone Number [facility] ([place]) [address] [place] [address] from Last 3 Months Insurance Advance Directives * DNR CC-A (Latest Code Status on File) Date ActivatedDate CqlroipamjbMcwvnjdl11/27/2025 6:38 PM10 5:12 PM QuestionAnswerCommentsSelect If Any Apply:* With Intubation * Full Code Date ActivatedDate RullccqwdtpBzwrezzm37/27/2025 10:24 AM06/23/2025 6:38 PM * DNR CC-A Date ActivatedDate KhcfewyuysbFjanzgoz73/25/2025 2:31 PM10 10:24 AM QuestionAnswerCommentsSelect If Any Apply:* With Intubation * Full Code Date ActivatedDate LdnfagcidgnJvkjdgyk95/25/2025 10:11 AM06/21/2025 2:31 PM Care Teams Team MemberRelationshipSpecialtyStart DateEnd Date Geo Montejo DO [address] [place] [id number] PCP - GeneralFamily Medicine02/05/25
--- OUTSIDE RECORDS SUMMARY | 2025-07-02 16:15 | XMS_ITS | Encounter Summary ---
Author Organization [facility] Address [address] [place] [address] Care Team Providers Care Student Success Advisor Name Role Phone Geo Montejo Primary Care Provider [phone] Reason for Visit * ReasonOnset DateCommentsMed Xiwluc7607/01/2025 Encounter Details DateTypeDepartmentCare Team (Latest Contact Info)Ayplowyjhzo30/04/2025Refill [facility] [address] [place] [address] Shirin BrennanahNANETTE Social History Tobacco UseTypesPacks/DayYears UsedDateSmoking Tobacco: FormerCigarettesPassive Smoke Exposure: PastSmokeless Tobacco: NeverAlcohol UseStandard Drinks/Week CommentsYes0 (1 standard drink = 0.6 oz pure alcohol)occasionalMER[facility] ST[facility] Utilities AnswerDate RecordedIn the past 12 months has the [employer], gas, oil, or water [employer] threatened to shut off services in your [...] homeless or living in a penitentiary (including now)?No06/21/2025Hunger Vital SignAnswerDate RecordedWithin the past 12 months, you worried that your food would run out before you got the money to buymore.Never true06/21/2025Ran Out of Food in the Last YearNot on file06/21/2025CommentsUnknownSex and Gender Information ValueDate RecordedSex Assigned at SrwolTbcrob96/07/2025 12:14 PM EDTLegal Sex Uwidxe0801/28/2025 8:42 AM EDTGender YpnuliumWtrnho04/07/2025 12:14 PM EDTSexual OrientationHeterosexual or Rodsvlnt45/07/2025 12:14 PM EDTdocumented as of this encounter Plan of Treatment Not on file documented as of this encounter Visit Diagnoses Not on filedocumented in this encounter Care Teams Team MemberRelationshipSpecialtyStart DateEnd Date Geo Montejo [place] [address] [address] PCP - GeneralFamily Medicine02/05/25documented as of this encounter
--- OUTSIDE RECORDS SUMMARY | 2025-07-02 16:15 | XMS_ITS | Clinical Summary ---
Author Organization [facility] Address [address] [place] [address] Phone Care Team Providers Care Vacuum Cooker Operator Name Role Phone Geo Montejo DO Primary Care Provider [phone] Allergies Active AllergyReactionsCriticalityNoted DateCommentsCodeineNausea OnlyMedium 08/31/2023 Medications [...] 2 sprays into each nostril once daily.Active fitvagficio-jpgkkgctl-bazerjqk (TRELEGY-ELLIPTA) 100-62.5-25 mcg blister with device Inhale 1 puff.Active latanoprost (Xalatan) 0.005 % ophthalmic solution Administer 1 drop into both eyes once daily.Active multivitamin with minerals iron-free (Centrum Silver) Take 1 tablet by mouth once daily.Active potassium chloride CR 10 mEq ER tablet Take 2 tablets (20 mEq) by mouth once daily.Active vit Q-F-blfsgo-zinc-lutein (Eye Multivit-Lutein,C-E-Cu-Zn,) 226 mg-90 mg-2 mg- 34.8 [...] 504/6Active Active Problems ProblemNoted DateDiagnosed DateFormer cigarette vmbkfw1102/09/2024enign essential zpalqlfrgkew92/04/2024hest pain08/31/2023OPD (chronic obstructive pulmonary disease)9769Adgyaqj89/04/2180Npyht78/04/0855Lppptyek04/04/2024 Ekfvvtxrkykusg76/04/2024aroxysmal supraventricular gstsjlreblc97/04/2024 Encounters DateTypeDepartmentCare FqsbVmqimdbsmlh98/16/[address] [address] Celestina Khalil MD Edema, unspecified type04/12/2025Ref[address] [address] Celestina Khalil MD Edema, unspecified typefrom Last 3 Months Social History Tobacco UseTypesPacks/DayYears UsedDateSmoking Tobacco: FormerCigarettes Smokeless Tobacco: Never Tobacco Cessation:Counseling Given: Not Answered Alcohol UseStandard Drinks/WeekCommentsYes0 (1 standard drink = 0.6 oz pure alcohol)couple times a yearCommentsUnknownSex and Gender Information ValueDate RecordedSex Assigned at BirthNot on fileLegal WbmSgkipa00/26/2022 8:51 PM ESTGender IdentityNot on fileSexual OrientationNot on file Last Filed Vital Signs Vital SignReadingTime TakenCommentsBlood Buslmrdc372/5806 1:16 PM EDT Vwdnj808002/09/2024 1:16 PM EDTTemperature--Respiratory Rate--Oxygen Saturation-- Inhaled Oxygen Concentration--Sxghdx99.4 kg (109 lb)02/09/2024 1:16 PM EDTHeight 157.5 cm (5' 2 )02/09/2024 1:16 PM EDTBody Mass Index19.9402/09/2024 1:16 PM EDT Plan of Treatment Health MaintenanceDue DateLast DoneCommentsCreatinine Level1Lipid Panel 1940Medicare Annual Wellness Visit (AWV)1Potassium Level 1940iabetes Tsgdbevxj20/14/1959DTaP/Tdap/Td Vaccines (1 - Tdap)1963 Bone Density Scan2006RSV High Risk: (Elderly (60+) or Population) (1 - 1-dose 75+ series)07/11/20163091Vtygipfpswkbri38/05/426346/12/2023Influenza Vaccine (#1)/, 05/30/2023, 05/24/2022, Additional history existsCOVID-19 Vaccine ( season)/12/2020, 10/17/2020, 09/26/2020Irritable Bowel CymnyfxgZlfvfxzavwlr85/16/2017Pneumococcal Vaccine Idussdxxm06/15/2019, 08/28/2018, 08/28/2017, Additional history existsZoster IvrpaqkxAabekeslj28/20/2019, 06/03/2019, 06/06/2013HIB VaccinesAged OutNo longer eligible based [...] this topic Procedures Procedure NamePriorityDate/TimeAssociated DiagnosisCommentsECHOCARDIOGRAM 09/01/2023 YMYNOOHMKXH58/16/2017 from Last 3 Months or Most Recently [...] Payer ID:[id number] (NAIC) Type:Not on file Address: [place] [id number] Care Teams Team MemberRelationshipSpecialtyStart DateEnd Date Geo Montejo DO PCP - General08/28/99
--- OUTSIDE RECORDS SUMMARY | 2025-07-02 16:19 | XMS_ITS | CCD ---
Author Organization [facility] Care Team Providers Care Court Manager Name Role Phone Unavailable Unavailable Kunjagdish Sheldon R Unavailable Alireza Olvera Unavailable KunsMandytt Unavailable Kuns, DO Sheldon Primary Care Provider Kuns, DO Sheldon Attending Provider Kuns, DO Sheldon Primary Care Provider Kuns, DO Sheldon Attending Provider [phone] Kuns, DO Sheldon Primary Care Provider Kuns, DO Sheldon Attending Provider [phone] Kuns, DO Sheldon Primary Care Provider [phone] Kuns, DO Sheldon Attending Provider HIEU Duran Attending Provider HIEU Duran Referring Provider Sammie Duran Unavailable Longs, DO Sheldon Primary Care Provider [phone] Longs, DO Sheldon Attending Provider HIEU Duran Attending Provider HIEU Duran Referring Provider Longs, DO Sheldon Primary Care Provider Longs, DO Sheldon Attending Provider HIEU Duran Attending Provider SAMMIE DURAN Attending Unavailable EMA, SAMMIE Consulting Unavailable ANNE-MARIE, DR CHUNG Primary Care Unavailable EMA, SAMMIE Admitting Unavailable ANNE-MARIE, DR CHUNG Primary Care Unavailable SAMSA ., [...] Care Provider DO Sheldon Xie Attending Provider [phone] Dre Looney Unavailable DO Sheldon Xie Primary Care Provider [phone] DO Sheldon Xie Attending Provider MD Dre Looney Attending Provider SHELDON XIE Referring Unavailable SHELDON XIE Primary Care Unavailable DO Sheldon Xie Primary Care Provider MD Dre Looney Attending Provider DO Sheldon Xie Attending Provider [phone] HIEU Duran Attending Provider Kuns, DO Sheldon Primary Care Provider MD Dre Looney Attending Provider Kuns, DO Sheldon Primary Care Provider [phone] Kuns, DO Sheldon Attending Provider Kuns DO, Sheldon R Primary Care Provider Unavailab le Kuns, DO Sheldon Primary Care Provider [phone] Kuns, DO Sheldon Attending Provider [phone] Kuns, DO Sheldon Primary Care Provider Kuns, DO Sheldon Attending Provider Kuns DO, Sheldon Primary Care Provider [phone] Kuns DO, Sheldon Attending Provider Unavailable Primary Care Provider Unavailabl e Kuns DO, Sheldon Primary Care Provider [phone] Kuns DO, Sheldon Attending Provider [phone] Kuns, Sheldon Primary Care Unavailable Kuns, Sheldon [...] Care Provider Kuns DO, Sheldon Attending Provider [phone] Ranjit Peralta MD Attending Provider Caleb Hernandez MD Attending Provider Iam Jiménez Attending Provider Sheldon Xie DO Primary Care Provider Sheldon Xie DO Attending Provider Artem Daniels Attending Provider Dre Looney MD Attending Provider TAMMY MELGAR Attending Unavailable AGUEDA, DERICK Referring Unavailable AGUEDA, DERICK Referring Unavailable MOUKARBEL, ANUSHKA Referring Unavailable AGUEDA, DERICK Referring Unavailable CARMENZA, DOMITILA Nagy Referring Unavailable HORWING, MONSE Attending Unavailable MARV, DARSHANA Admitting Unavailable CARMENZA, DOMITILA R Referring Unavailable ARTEM MARROQUIN Attending Unavailable ARTEM MARROQUIN Attending Unavailable BAUTISTA BLISS Attending Unavailable ARTEM MARROQUIN Attending Unavailable IAM JIMÉNEZ Attending Unavailable Sheldon Xie DO Primary Care Provider Dre Looney MD Attending Provider Den Ponce PA-C Attending Provider Sheldon Xie DO Attending Provider [phone] Allergies Allergy ClassificationReported Allergen(s)Allergy TypeDate of OnsetReaction(s) FacilityBotulinum Toxin Type A (1 source)Botulinum Toxin Type ADrug Ftdrfhp07-40-6440umfmpbxadStfcseqzw [facility] CenterOp[facility]on[facility] (1 source)CodeineDrug Utmksdu84-71-3414Zhtpzd, nauseatedUniversity [facility]als [facility] (20 sources)Codeine; Translations: [Codeine Derivatives]Drug Dqhmxms04-74-[address] [facility] (20 sources)Botulinum Toxin Type ADrug AllergydyspNorth [facility] Other (20 sources)Codeine; Translations: [Codeine]Drug Kjpqiqw29-48-5210Zocegv, Nausea, nauseatedUniversity [facility]als [facility] (1 source)Botulinum Toxin Type ADrug Kogcjka32-96-6804Mtd [facility] (20 sources)Botulinum Toxin Type A; Translations: [onabotulinumtoxinA]Drug Mhrerhy18-54-9244mxkbontbcVeumgrpyx [facility] Medications Current Medications MedicationDrug Class(es)DatesSig (Normalized)Sig (Original)acetaminophen 325 mg oral tablet (20 sources)Start: 64-95-9405Ivioegjrpjkji (Tylenol) 325 mg tablet Active MG PO October 16, 2023 12:00am FreeTextSi tablet as needed Orally every 7-8 hrs; Note: Source Status: Taking; Provider: Anne-Marie Nagy Complies with drug therapyStart: 50-34-6481Qquhx: 19-95-0039Rendchc 325 MG 3 tablet as needed Orally every 7-8 hrs Aug, ActiveStart: 46-75-7326kortrjikx 0.83 mg/ml inhalation solution (20 sources)beta2-Adrenergic AgonistStart: 11-15-2023 End: 99-61-0204fbyf 2.5 mg by inhalation three times dailyAlbuterol Sulfate 2.5 mg /3 mL (0.083 %) solution for nebulization Active 2.5 MG INHALATION Three ti mes daily 180 January 16, 2025 10:34am Complies with drug therapyStart: 10-16-2023 End: 98-47-6466gahx 3 mL by inhalation three times dailyAlbuterol Sulfate 2.5 mg /3 mL (0.083 %) solution for nebulization Discontinued 2.5 MG INHALATION [facility] 2023 12:00am November 15, 2023 12:05pm FreeTextSi ml prefilled vials Inhalation Three times a day; Note: Source Status: Taking; Provider: Anne-Marie Chung RStart: 10-16-2023 End: 32-14-2569Rhidm: 03-10-6185Iqkymzvgx Sulfate (2.5 MG/3ML) 0.083% 3 ml prefilled vials Inhalation Three times a day Nov, ActiveStart: 26-11-3724Npwmodkxn Sulfate (2.5 MG/3ML) 0.083% 3 ml prefilled vials Inhalation Three times a day Nov, ActiveStart: 97-42-1505Hakvtjqtn Sulfate (2.5 MG/3ML) 0.083% 3 ml prefilled vials Inhalation Three times a day for 30 daysNov, ActiveStart: 54-80-2352Vzcoidytw Sulfate (2.5 MG/3ML) 0.083% 3 ml Inhalation BID PRN Nov, Activearformoterol 0.0075 mg/ml inhalation solution (6 sources)beta2-Adrenergic Agonisttake 2 mL by inhalation twice daily Arformoterol Tartrate 15 MCG/2ML 2 mL Inhalation Twice a day Activetake 2 mL by inhalation twice dailyArformoterol Tartrate 15 MCG/2ML 2 mL Inhalation Twice a day Activeaspirin 81 mg delayed release oral tablet (20 sources)Platelet Aggregation Inhibitor, Nonsteroidal Anti-inflammatory Drug Start: 66-53-1532zxnb 1 tablet by mouth once dailyAspirin (Aspir-81) 81 mg Tablet,Delayed Release (Dr/Ec) Active 81 MG PO Daily July 23, 2018 12:00am Complies with drug therapytake 1 tablet by mouth every twenty-four hoursAspirin 81 MG 1 tablet Orally Once a day Activetake 1 tablet by mouth three times weeklyAspirin 81 MG 1 tablet Orally Three times a week Activeaugmented betamethasone 0.5 mg/ml topical cream (20 sources)CorticosteroidStart: 41-09-7106Ymerdegadjbxl, Augmented 0.05 % cream Active 1 APPLIC TOPICAL Twice daily November 05, 2023 11:00pm FreeTextSi application Externally BID; Note: Source Status: Taking; Refills: 2; Qty: 30 Gram; Provider: Anne-Marie Nagy Complies with drug therapyStart: 11-06-2023 Betamethasone, Augmented Active 1 APPLIC TOPICAL Twice daily November 06, 2023 12:00am FreeTextSi application Externally BID; Note: Source Status: Taking; Refills: 2; Qty: 30 Gram; Provider: Anne-Marie Chung RStart: 44-81-3657Cuvgtwsqetrdo Dipropionate Aug 0.05 % 1 application Externally BID Aug, ActiveStart: 70-92-7765Rnkneadftnfxw Dipropionate Aug 0.05 % 1 application Externally BID Aug, Activebrimonidine tartrate 2 mg/ml / timolol 5 mg/ml ophthalmic solution (20 sources)alpha-Adrenergic Agonist, beta-Adrenergic BlockerStart: 12-27-2018 End: 39-40-0657Bntjzeqyzmr-Timolol (Combigan) 0.2-0.5 % Drops Active 1 DROPS EYE-BOTH Twice daily March 06, 2019 11:00pm Complies with drug therapyStart: 12-27-2018 End: 58-32-9241Ponij: 12-27-2018 End: 15-39-0730Avzyyrvsmhz-Timolol (Combigan) 0.2-0.5 % Drops Active 1 DROPS EYE-BOTH Twice daily March 07, 2019 12:00amStart: 07-23-2018 End: 16-38-9734Dkzapgosxfa-Timolol (Combigan) 0.2-0.5 % drops Discontinued July 23, 2018 12:00am December 27, 2018 8:43amStart: 07-23-2018 End: 20-60-9207Tinpzthpqvx-Timolol (Combigan) 0.2-0.5 % drops Discontinued SOLUTION/ DROPS July 23, 2018 1:00am December 27, 2018 9:43ambrimonidine- timoloL (Combigan) 0.2-0.5 % ophthalmic solution Administer 1 drop into both eyes every12 hours. Activetake 1 drop(s) into the eye(s) twice dailyCombigan 0.2-0.5 % 1 drop into affected eye Ophthalmic Twice a day Activecalcium carbonate 1250 mg oral tablet (20 sources)take 1 tablet by mouth every twelve hoursCalcium 500 MG 1 tablet with meals Orally Twice a day Activetake 1 tablet by mouth every twenty-four hoursCalcium 600 MG 1 tablet with meals Orally Once a day Activecalcium carbonate 1250 mg / cholecalciferol 200 unt oral tablet (20 sources)Vitamin DStart: 70-00-6069Fdxiiyf Carbonate-Vitamin D3 (Calcium 500 + D) 500 mg(1,250mg) -200 unit Tablet Active 1 TAB PO Daily December 26, 2018 11:00pm Complies with drug therapyStart: 30-37-8916dcop 1 tablet by mouth twice dailyCalcium + D 600-200 MG-UNIT 1 tablet Orally Twice a day Activetake 1 tablet by mouth every twelve hoursCalcium + D 600-200 MG-UNIT 1 tablet Orally Twice a day Activetake 1 tablet by mouth every twelve hoursCALCIUM CARBONATE-VITAMIN D3 ORAL (1 source)take 1 tablet by mouth once dailyCALCIUM CARBONATE-VITAMIN D3 ORAL Take 1 tablet by mouth once daily. Activecefdinir 300 mg oral capsule (1 source)Cephalosporin AntibacterialStart: 05-04-9314mlqb 1 capsule by mouth every twelve hoursCefdinir 300 MG 1 capsule Orally BID for 10 day(s) Nov, ActiveCentrum (20 sources)take 1 tablet by mouth once dailyCentrum 1 tablet Orally once a day Activeciprofloxacin 3 mg/ml / dexamethasone 1 mg/ml otic suspension (20 sources)Corticosteroid, Quinolone AntimicrobialStart: 03-19-2024 End: 63-27-1072Kpkxhfhwocbcb-Dexamethasone 0.3-0.1 % drops,suspension Active 4 DROPS EAR-RIGHT Daily at bedtime 7.5 5 March 17, 2025 9:02am Dysfunction of eustachian tube Unspecified Eustachian tube disorder, unspecified ear 4 drops to right ear QHS Complies with drug therapyStart: 09-43-9947Ephimlnudklst- Dexamethasone Active 4 DROPS EAR-RIGHT Daily at bedtime 7.5 March 19, 2024 2:24pm 4 drops to right ear QHSStart: 12-27-2018 End: 98-94-9786Oggvbmalpjfkd-Dexamethasone 0.3-0.1 % drops,suspension Discontinued 5 DROPS EAR-RIGHT Daily at bedtime December 26, 2018 11:00pm March 19, 2024 1:25pmStart: 12-27-2018 End: 89-04-8154Ryculrtk ActiveCiprodex 0.3-0.1 % Otic Suspension INSTILL 5 DROP Bedtime Quantity: 0 Refills: 0 Ordered: 08-Feb-2022 DO ActiveCiprofloxacin- Dexamethasone 0.3-0.1 % drops,suspension (4 sources)Start: 21-64-5913Mwmzxburnxylo-Dexamethasone 0.3-0.1 % drops,suspension Active 4 DROPS EAR-RIGHT Daily at bedtime 7.5 March 19, 2024 2:24pm 4 drops to right ear QHSStart: 74-85-9862Uwcxalukxgyyc-Dexamethasone 0.3- 0.1 % drops,suspension Active 4 DROPS EAR-RIGHT Daily at bedtime 7.5 March 19, 2024 1:24pm 4 drops to right ear QHScyclobenzaprine hydrochloride 10 mg oral tablet (1 source)Muscle RelaxantStart: 78-72-5162lpyx 0.5 tablet by mouth once daily Cyclobenzaprine HCl 10 MG 1/2 tablet Orally Once a day for 30 days Feb, ActiveEye Multivitamin/Lutein (2 sources)Eye Multivitamin/Lutein DpksstOsfbgcsjpsd-Dtoiqeqfj-Yreqvlui (20 sources)Anticholinergic, Corticosteroid, beta2-Adrenergic AgonistStart: 00-51-7330Xgywjomunzi-Umeclidin-Vilanter (Trelegy Ellipta) 100-62.5-25 mcg blister with device Active 1 INH INHALATION Daily 3 December 24, 2024 2:00pm Complies with drug therapyStart: 85-09-2763Aorat: 12-24-2024 Xuuzoqhjiwa-Znadefbkb-Tspwfcpk (Trelegy Ellipta) 100-62.5-25 mcg blister with device Active 1 INH INHALATION Daily December 24, 2024 3:00pmStart: 09-19-2024 End: 01-39-8707Moncriavexj-Umeclidin-Vilanter (Trelegy Ellipta) 100-62.5-25 mcg blister with device Discontinued 1INH INHALATION Daily 60 September 19, 2024 1:01pm December 24, 2024 2:01pmStart: 09-19-2024 End: 69-70-2037Afvly: 09-19-2024 End: 80-32-9428Usrnlxevvqp-Umeclidin-Vilanter (Trelegy Ellipta) 100-62.5-25 mcg blister with device Discontinued 1INH INHALATION Daily 60 September 19, 2024 2:01pm December 24, 2024 3:01pmStart: 33-16-9971Frqkceozntz-Umeclidin-Vilanter (Trelegy Ellipta) 100-62.5-25 mcg blister with device Active 1 INH INHALATION Daily September 19, 2024 2:01pmStart: 09-19-2024 Esnvuuhtwma-Oumwdepeh-Aojqmpoc (Trelegy Ellipta) 100-62.5-25 mcg blister with device Active 1 INH INHALATION Daily 60 September 19, 2024 1:01pmStart: 10-16-2023 End: 66-01-6418Nhujr: 10-16-2023 End: 99-89-3955cqkk 1 puff(s) by inhalation once daily Bwhekxrbwub-Yhmgxxpqf-Xripxlkd (Trelegy Ellipta) 100-62.5-25 mcg blister with device Discontinued 1INH INHALATION Daily October 16, 2023 1:00am September 19, 2024 2:02pm FreeTextSi puff Inhalation Once a day; Note: Source Status: Taking; Refills: 3; Provider: Anne-Marie Chung RStart: 10-16-2023 End: 99-67-4501ivnq 1 puff(s) by inhalation once daily Vmxwmzwfpjh-Xycrdcpyy-Wbupiivn (Trelegy Ellipta) 100-62.5-25 mcg blister with device Discontinued 1INH INHALATION Daily October 16, 2023 12:00am September 19, 2024 1:02pm FreeTextSi puff Inhalation Once a day; Note: Source Status: Taking; Refills: 3; Provider: Anne-Marie Chung RStart: 61-53-9936mrij 1 puff(s) by inhalation once qnggeWqbcisgzeag-Bygefquqc-Hcdqwbpu (Trelegy Ellipta) 100-62.5-25 mcg blister with device Active 1 INH INHALATION Daily October 16, 2023 1:00am FreeTextSi puff Inhalation Once a day; Note: Source St atus: Taking; Refills: 3; Provider: Anne-Marie Chung RStart: 70-50-3710djos 1 puff(s) by inhalation once mcvrdPlkzkjgzryh-Ftloabfxb-Ncxwnink (Trelegy Ellipta) 100-62.5-25 mcg blister with device Active 1 INH INHALATION Daily October 16, 2023 12:00am FreeTextSi puff Inhalation Once a day; Note: Source Status: Taking; Refills: 3; Provider: Anne-Marie Chung RStart: 34-50-1490hwfn 1 puff(s) by inhalation once dailyTrelegy Ellipta 100-62.5-25 MCG/INH 1 puff Inhalation Once a day Nov, ActiveStart: 40-35-3294ptsgyeqrlnz-umeclidin-vilanter (TRELEGY-ELLIPTA) 100-62.5-25 mcg blister with device Inhale 1 puff.Active Trelegy Ellipta 100-62.5-25 MCG/INH AEPB as directed Quantity: 0 Refills: 0 Ordered: 08-Feb-2022 HKLzdiyo02 hr guaiFENesin 600 mg extended release oral tablet (20 sources)Start: 73-22-0515mtsi 2 tablets by mouth twice daily for congestion, then take 1 tablet by mouth twice daily for congestionGuaifenesin (Mucinex) 600 mg Tablet Extended Release 12hr Active 1200 MG PO Twice daily 56 14 0 March 09, 2019 11:00pm take scheduled for 7 days, then may take twice daily as need for congestion Complies with drug therapylatanoprost 0.05 mg/ml ophthalmic solution (20 sources)Prostaglandin AnalogStart: 24-29-1262Rhuusqvzoql 0.005 % drops Active 0.005 PERCENT EYE-RIGHT Daily at bedtime July 23, 2018 12:00am glacoma Complies with drug therapyStart: 68-13-0093Taywm: 68-06-4038Wzjwpnwbuiu 0.005 % drops Active 0.005 PERCENT EYE-RIGHT [...] 0 Refills: 0 Ordered: 08-Feb-2022 DO Activelisinopril 5 mg oral tablet (20 sources)Angiotensin Converting Enzyme InhibitorStart: 79-93-4745vutc 1 tablet by mouth once dailyLisinopril 5 mg tablet Active 5 MG PO Daily July 01, 2025 12:00am Complies with drug therapyStart: 02-09-2024 End: 85-84-2818khgl 1 tablet by mouth once dailyLisinopril 2.5 mg tablet Discontinued 2.5 MG PO Daily March 18, 2024 11:00pm July 01, 2025 11:43am Start: 11-06-2023 End: 22-05-8612uhlb 1 tablet by mouth once dailyLisinopril 10 mg tablet Discontinued 10 MG PO Daily November 05, 2023 11:00pm March 19, 2024 1:17pm FreeTextSi tablet Orally Once a day; Note: Source Status: Taking; Provider: Aure Erickson ( )Start: 36-97-6734sxkp 1 tablet by mouth once dailyLisinopril 10 MG Oral Tablet TAKE 1 TABLET BY MOUTH DAILY Quantity: 90 Refills: 3 Ordered: 22-Nov-2022 Ronnie Amin MD Start : 05-Jan-2022 Active Start: 07-23-2018 End: 08-68-7222cxzm 1 tablet by mouth once dailyLisinopril 5 mg tablet Discontinued 5 MG PO Daily July 23, 2018 12:00am October 16, 2023 10 :21am htnStart: 07-23-2018 End: 28-31-9234waxv 2 tablets by mouth once dailyLisinopril 5 mg tablet Discontinued 10 MG PO Daily October 16, 2023 10:20am November 06, 2023 10:33am htnStart: 07-23-2018 End: 43-14-4751iatslsdhmi tartrate 50 mg oral tablet (4 sources)beta-Adrenergic BlockerStart: 93-39-5427jmph 1 tablet by mouth once dailyMetoprolol Tartrate 50 mg tablet Active 50 MG PO Daily July 01, 2025 12:00am Complies with drug therapyStart: 02-12-2025 End: 51-20-9630khas 1 tablet by mouth twice dailyMetoprolol Tartrate 25 mg tablet Discontinued 25 MG PO Twice daily February 11, 2025 11:00pm 2024 11:12wlAomzrsou-Uwi-Fr-Lycopen-Lutein (Centrum Silver) 0.4-300-250 mg-mcg-mcg Tablet (20 sources)Start: 95-74-3189ybou 1 tablet by mouth once daily Syiauzjt-Hav-Vm-Lycopen-Lutein (Centrum Silver) 0.4-300-250 mg-mcg-mcg Tablet Active 1 TAB PO DailyDecember 26, 2018 11:00pm Complies with drug therapyStart: 93-25-0795swyq 1 tablet by mouth once euqozUjdxlwbq-Rnv-Bb-Lycopen-Lutein (Centrum Silver) 0.4-300-250 mg-mcg-mcg Tablet Active 1 TAB PO DailyDecember 26, 2018 11:00pmStart: 63-58-8213ywbz 1 tablet by mouth once daily Chemdpwv-Xdl-Oc-Lycopen-Lutein (Centrum Silver) 0.4-300-250 mg-mcg-mcg Tablet Active 1 TAB PO DailyDecember 27, 2018 12:00ammultivitamin with minerals iron-free (Centrum Silver) (2 sources)take 1 tablet by mouth once dailymultivitamin with minerals iron-free (Centrum Silver) Take 1 tablet by mouth once daily. Active End: 89-63-0043lqgn 1 tablet by mouth once dailymultivitamin with minerals iron- free (Centrum Silver) Take 1 tablet by mouth once daily. 4Discontinued (Duplicate order)Nature's Eye Vitamin (20 sources)Start: 26-60-3350yhir 2 capsules by mouth twice dailyNature's Eye Vitamin Active 2 CAP PO Twice daily December 26, 2018 11:00pm Complies with drug therapyStart: 87-31-0724yjhp 2 capsules by mouth twice dailyNature's Eye Vitamin Active 2 CAP PO Twice daily December 26, 2018 11:00pmStart: 59-03-8520zssd 2 capsules by mouth twice dailyNature's Eye Vitamin Active 2 CAP PO Twice daily December 27, 2018 12:00amNebulizer Machine & Supplies (11 sources)Start: 37-08-8083Cqdsfabrf Machine & Supplies As directed May, ActiveStart: 13-04-0594Yjfwwxdtg Machine & Supplies As directed Feb, Not-TakingStart: 61-97-8010Wocty: 97-27-1345Ercxmzdpw Machine & Supplies As directed Feb, ActiveOxygen unit (1 source)Start: 23-92-2526Jdnxtb unit Active 0 .Route April 09, 2025 11:00pm As directed 1 L/M DME Lincarepravastatin sodium 40 mg oral tablet (20 sources)HMG-CoA Reductase InhibitorStart: 47-99-0718dbzq 10 mg by mouth once dailyPravastatin 40 mg tablet Active 10 MG PO Daily July 23, 2018 12:00am hyperlipidemia Complies with drug therapyStart: 12-90-2262gmcs 10 mg by mouth once dailyPravastatin Active 10 MG PO Daily July 23, 2018 1:00am End: 04-67-2951kkjs 1 tablet by mouth once daily at [...] under the skin every 30 (thirty) days. Activespironolactone 25 mg oral tablet (1 source)Aldosterone AntagonistStart: 51-92-7861sxkb 1 tablet by mouth once dailySpironolactone 25 mg tablet Active 25 MG PO Daily July 01, 2025 12:00am Complies with drug therapytorsemide 10 mg oral tablet (20 sources)Loop DiureticStart: 02-08-2022 End: 11-77-3786olae 1 tablet by mouth once dailyTorsemide 10 mg tablet Active 10 MG PO Daily October 16, 2023 12:00am FreeTextSi tablet Orally Once a day; Note: Source Status: Taking; Provider: Aure Erickson ( ) Complies with drug therapyvit R-O-uvokkz-zinc-lutein (Eye Multivit-Lutein,C-E-Cu-Zn,) 226 mg-90 mg-2 mg-34.8 mg-5 mg capsule (1 source)vit L-S-toizsk-zinc-lutein (Eye Multivit-Lutein,C-E-Cu-Zn,) 226 mg-90 mg-2 mg-34.8 mg-5 mg capsule Take 1 tablet by mouth see administration instructions. ActiveVitamin D 25 MCG (1000 UT) (20 sources)take 1 tablet by mouth once dailyVitamin D 25 MCG (1000 UT) 1 tablet Orally Once a day Active{20 (nirmatrelvir 150 MG Oral Tablet) / 10 (ritonavir 100 MG Oral Tablet) } Pack [Paxlovid 5-Day] (3 sources)Start: 47-41-8232twes 3 tablets by mouth every twelve hoursPaxlovid (300/100) 20 x 150 MG & 10 x 100MG 3 tablets Orally Twice a day for 5 day(s) Jul, Active (5 sources)Start: 74-50-2956Ugfpv: 12-27-2018 Completed/Discontinued Medications MedicationDrug Class(es)DatesSig (Normalized)Sig (Original)acetaminophen 325 mg / HYDROcodone bitartrate 5 mg oral tablet (20 sources)Opioid AgonistStart: 07-23-2018 End: 02-79-7261Bxqbxvzuwlu-Acetaminophen ([place]) 5-325 mg tablet Discontinued 0.5 TAB PO every 6 to 8 hours as needed for pain, severe 16 4 0 July 23, 2018 July 26, 2018 12:00am July 27, 2018 12:02am Unspecified fracture of sacrum, initial encounter for closed fractureStart: 07-23-2018 End: 07-28-5973Kztnpukbw Sulfate (2.5 MG/ 3 ML) 2.5 MG/3ML 0.083% Nebulization Solution (8 sources)Start: 53-24-0599Uuigwvgou Sulfate (2.5 MG/ 3 ML) 2.5 MG/3ML 0.083% Nebulization Solution 3ml Inhalation 4 times a day PRN Feb, Not-Taking Start: 11-96-1857Tqzbz: 21-89-8868Deldhgzag Sulfate (2.5 MG/ 3 ML) 2.5 MG/3ML 0.083% Nebulization Solution 3ml Inhalation 4 times a day PRN Feb, Activeamoxicillin 875 mg / clavulanate 125 mg oral tablet (3 sources)Penicillin-class AntibacterialStart: 02-12-2025 End: 51-63-5710ycaf 1 tablet by mouth twice dailyAmoxicillin-Pot Clavulanate 875-125 mg tablet Discontinued 1 TAB PO Twice daily February 11, 2025 11:00pm March 17, 2025 8:29amStart: 02-12-2025 End: 89-79-2959jkxbsaexqkwl 250 mg oral tablet (12 sources)Macrolide AntimicrobialStart: 05-16-2024 End: 40-21-9998Dqwwscuaqdxl (Zithromax Z-Finn) 250 mg tablet Discontinued 0 PO .COMPLEX 6 0 May 15, 2024 11:00pm June 06, 2024 3:01pm For 250 mg dose pack: take 500 mg today (day 1), then 250 mg for 4 days (days 2-5) PO benzonatate 100 mg oral capsule (20 sources)Non-narcotic AntitussiveStart: 03-10-2019 End: 98-25-6176bpcv 1 capsule by mouth three times daily as needed for cough Benzonatate 100 mg Capsule Discontinued 100 MG PO Three times daily as needed for cough 21 0 March 09, 2019 11:00pm September 27, 2019 11:07amCalcium (5 sources)Phosphate Binder, CalciumCalcium 500/Vitamin D TABS Take 1 tablet daily Quantity: 0 Refills: 0 Ordered: 08-Feb-2022 DO Activecarvedilol 6.25 mg oral tablet (20 sources)alpha-Adrenergic Mart, beta-Adrenergic BlockerStart: 07-23-2018 End: 85-85-5718aujl 1 tablet by mouth twice dailyCarvedilol 6.25 mg tablet Discontinued 6.25 MG PO Twice daily July 23, 2018 12:00am February 12, 2025 12:18pm htntake 1 tablet by mouth twice daily at mealtimeCoreg 6.25 1 tablet with food Orally Twice a day ActiveCentrum Silver Oral Tablet (5 sources)take 1 tablet by mouth once dailyCentrum Silver Oral Tablet TAKE 1 TABLET DAILY. Quantity: 0 Refills: 0 Ordered: 08-Feb-2022 DO Active cholecalciferol 0.025 mg oral capsule (20 sources)Vitamin DStart: 11-06-2023 End: 86-41-8570xsgk 1 capsule by mouth once dailyCholecalciferol (Vitamin D3) 25 mcg (1,000 unit) capsule Discontinued 25 MCG PO Daily November 05, 2023 11:00pm November 15, 2023 11:44amtake 1 tablet by mouth every twenty-four hoursVitamin D 25 MCG (1000 UT) 1 tablet Orally Once a day Activecitalopram 10 mg oral tablet (20 sources)Serotonin Reuptake InhibitorStart: 11-15-2023 End: 20-18-9461eeok 1 tablet by mouth once dailyCitalopram (Celexa) 10 mg tablet Discontinued 10 MG PO Daily 90 1 November 14, 2023 11:00pm December 24, 2024 1:39pmStart: 42-06-4894okhs 1 tablet by mouth every twenty-four hoursCitalopram Hydrobromide 10 MG 1 tablet Orally Once a day Mar, ActiveclonazePAM 0.5 mg oral tablet (20 sources)BenzodiazepineStart: 07-23-2018 End: 39-05-3412fcrs 1 tablet by mouth once daily at bedtimeClonazepam 0.5 mg tablet Discontinued 0.5 MG PO Daily at bedtime 90 90 1 May 16, 2024 8:31am December 18, 2024 10:11am Restless legs syndrome Restless legs syndrome restless leg1 ml denosumab 60 mg/ml prefilled syringe (20 sources)RANK Ligand InhibitorStart: 11-06-2023 End: 27-28-0022Jdtzxhylq (Prolia) 60 mg/mL syringe Discontinued 60 MG SUBCUT November 05, 2023 11:00pm December 14, 2023 11:34am FreeTextSi mg Subcutaneous q 6 months; Note: Source Status: Not-Taking\PRN; Provider: Anne-Marie Chung RStart: 12-82-5666Dnxnqh 60 MG/ML 60 mg Subcutaneous q 6 months Aug, Not-Taking/PRNesomeprazole 20 mg delayed release oral capsule (20 sources)Proton Pump InhibitorStart: 12-27-2018 End: 98-51-5702Hgltqmyovhlm Magnesium (Nexium) 20 mg Capsule,Delayed Release(Dr/Ec) Discontinued December 26, 2018 11:00pm December 27, 2018 8:43amStart: 07-23-2018 End: 68-78-8831agoo 1 capsule by mouth once dailyEsomeprazole Magnesium (Nexium) 20 mg Capsule,Delayed Release(Dr/Ec) Active 20 MG PO Daily 2017 12:00am Complies with drug therapytake 1 tablet by mouth once dailyesomeprazole magnesium (NexIUM 24HR) 20 mg tablet,delayed release (DR/EC) Take 1 tablet by mouth once daily. ActiveEye Multivitamin/Lutein CAPS (5 sources)Eye Multivitamin/Lutein CAPS TAKE DIRECTED. Quantity: 0 Refills: 0 Ordered: 08-Feb-2022 DO Activefluticasone propionate 0.05 mg/actuat metered dose nasal spray (20 sources)CorticosteroidStart: 12-14-2023 End: 91-83-4648hyjh 1 spray(s) nasal route twice dailyFluticasone Propionate 50 mcg/actuation spray,suspension Discontinued 1 SPRAY INTRANASAL Twice daily 12 09December 13, 2023 11:00pm January 09, 2024 1:49pm administer into each nostril Start: 10-16-2023 End: 86-98-4026xpzk 1 spray(s) nasal route once dailyFluticasone Propionate 50 mcg/actuation spray,suspension Active 1 SPRAY INTRANASAL Daily 10 01March 19, 2024 1:21pm Dysfunction of eustachian tube Unspecified Eustachian tube disorder, unspecified ear 1 spray in each nostril Nasally Once a day Complies with drug therapyStart: 10-16-2023 End: 00-13-4687xttg 2 spray(s) nasal route once dailyfluticasone (Flonase) 50 mcg/actuation nasal spray Administer 2 sprays into each nostril once daily. Activetake 1 spray(s) nasal route once dailyFluticasone Propionate 50 MCG/ACT 1 spray in each nostril Nasally Once a day ActiveFluticasone Propionate 50 MCG/ACT Nasal Suspension USE DIRECTED. Quantity: 0 Refills: 0 Ordered:08-Feb-2022 DO ActiveFluticasone Propion-Salmeterol (20 sources)Corticosteroid, beta2-Adrenergic AgonistStart: 12-27-2018 End: 62-17-2547qhei 1 puff(s) by inhalation every twelve hoursFluticasone Propion-Salmeterol (Advair Hfa) 115-21 mcg/actuation Hfa Aerosol Inhaler Discontinued 1PUFF INHALATION Q12H December 26, 2018 11:00pm September 27, 2019 11:07am copdStart: 12-27-2018 End: 69-73-3857Dzams: 12-27-2018 End: 96-90-4269donn 1 puff(s) by inhalation every twelve hoursFluticasone Propion-Salmeterol (Advair Hfa) 115-21 mcg/actuation Hfa Aerosol Inhaler Discontinued 1PUFF INHALATION Q12H December 26, 2018 11:00pm September 27, 2019 11:07amStart: 12-27-2018 End: 92-29-4130sayv 1 puff(s) by inhalation every twelve hoursFluticasone Propion-Salmeterol (Advair Hfa) 115-21 mcg/actuation Hfa Aerosol Inhaler Discontinued 1PUFF INHALATION Q12H December 27, 2018 12:00am September 27, 2019 12:07pmStart: 07-23-2018 End: 60-02-0553Zvihl: 07-23-2018 End: 28-53-8852Fubfb: 07-23-2018 End: 45-39-5278Ruicqkmkkya Propion-Salmeterol (Advair Diskus) 250-50 mcg/dose blister with device Discontinued July 23, 2018 12:00am December 27, 2018 8:43amStart: 07-23-2018 End: 82-47-4632Hjbfhreskfg Propion-Salmeterol (Advair Hfa) 45-21 mcg/actuation Hfa Aerosol Inhaler Discontinued July 23, 2018 12:00am December 27, 2018 8:43amStart: 07-23-2018 End: 53-33-0696Vzwybvaqhot Propion-Salmeterol (Advair Diskus) 250-50 mcg/dose blister with device Discontinued July 23, 2018 1:00am December 27, 2018 9:43am Start: 07-23-2018 End: 01-01-9013Blmticdqpum Propion-Salmeterol (Advair Hfa) 45-21 mcg/actuation Hfa Aerosol Inhaler Discontinued July 23, 2018 1:00am December 27, 2018 9:43am ibandronic acid 150 mg oral tablet (20 sources)BisphosphonateStart: 03-07-2019 End: 01-48-2883kuth 1 tablet by mouth every monthIbandronate (Boniva) 150 mg Tablet Discontinued 150 MG PO every month March 06, 2019 11:00pm October 17, 2023 2:56pm Takes on the of the monthketoconazole 20 mg/ml medicated shampoo (20 sources)Azole AntifungalStart: 11-06-2023 End: 04-51-1237Bkcjdgilezwb 2 % shampoo Discontinued 1 APPLIC TOPICAL Twice a Week November 05, 2023 11:00pm December 24, 2024 1:40pmStart: 02-19-1725Oluqo: 88-04-6656Lwwxtcn 2% as directed applied topically twice a day Jan, ActiveKetorolac (20 sources)Nonsteroidal Anti-inflammatory Drug, Cyclooxygenase InhibitorStart: 84-20-2735Mxalsdk per 15 mg Aug, 2 ccStart: 35-37-1847Etmbkjk per 15 mg Aug, 2 cclevoFLOXacin 500 mg oral tablet (20 sources)Quinolone AntimicrobialStart: 03-10-2019 End: 28-90-4475czxt 1 tablet by mouth once dailyLevofloxacin (Levaquin) 500 mg tablet Discontinued 500 MG PO Daily 5 5 0 March 09, 2019 11:00pm October 13, 2023 10:22amloteprednol etabonate 5 mg/ml ophthalmic suspension (20 sources)Start: 07-23-2018 End: 97-03-4364Bakgrfdgaqc Etabonate 0.5 % drops,suspension Discontinued 0.5 PERCENT EYE-BOTH Q48H July 23, 2018 12:00am November 15, 2023 11:45am glacomaStart: 07-23-2018 End: 42-14-2114Kzckeluwyir Etabonate 0.5 % drops,suspension Discontinued 0.5 PERCENT EYE-BOTH Q48H July 23, 2018 1:00am November 15, 2023 12:45pm End: 23-93-5000mardmuzxxkd (Lotemax) 0.5 % ophthalmic suspension 4 times a day. 02/09/2024 Discontinued (Therapy completed)Lotemax 0.5 % Ophthalmic Gel USE DIRECTED. Quantity: 0 Refills: 0 Ordered: 08-Feb-2022 DO Activetake 1 drop(s) into the eye(s) every other dayLotemax 0.5 % INSTILL 1 DROP IN EACH EYE EVERY OTHER DAY Ophthalmic for 30 ActivemethylPREDNISolone 4 mg oral tablet (16 sources)CorticosteroidStart: 01-29-2024 End: 21-61-4289Tdzplpvgrxverfyjhi (Medrol (Finn)) 4 mg tablets,dose pack Discontinued 4 MG PO As Directed 2023 11:00pm March 19, 2024 1:17pmStart: 01-29-2024 End: 34-70-2743QKSSCNOLJUKC GLYCOL 3350 (7 sources)Osmotic LaxativeMiraLax - 1 packet mixed with 8 ounces of fluid Orally Once a day for 30 day(s) Not-TakingMiraLax - 1 packet mixed with 8 ounces of fluid Orally Once a day for 30 day(s) Activepotassium chloride 10 meq extended release oral capsule (20 sources)Start: 12-04-2017 End: 25-38-7595xqec 2 capsules by mouth oncePotassium Chloride 10 mEq capsule, extended release Discontinued 20 MEQ PO Once 180 August 1:02pm September 23, 2024 12:27pmStart: 12-04-2017 End: 97-83-6749htvn 1 capsule by mouth twice dailyPotassium Chloride 10 mEq capsule, extended release Discontinued 10 MEQ PO Twice daily July 23, 2018 12:00am October 16, 2023 10:21amtake 2 tablets by mouth once dailypotassium chloride CR 10 mEq ER tablet Take 2 tablets (20 mEq) by mouth once daily. Active predniSONE 10 mg oral tablet (20 sources)Start: 02-12-2025 End: 03-03-7434Qnkdljqyby 10 mg tablet Discontinued 20 MG PO February 11, 2025 11:00pm March 17, 2025 8:30amStart: 02-12-2025 End: 54-80-4310Ewlzi: 03-10-2019 End: 62-96-4047wpcx 4 tablets by mouth once daily, then take 3 tablets by mouth once daily, then take 2 tablets bymouth once daily, then take 1 tablet by mouth once dailyPrednisone 10 mg tablet Discontinued 10 MG PO Daily 30 March 09, 2019 11:00pm September 27, 201911:05am starting 03/11 4tabs daily x3days, then 3tabs daily x3days, then 2tabs daily x3days, then 1tab daily v0inhyiobczdwcrp 0.018 mg inhalation powder (20 sources)AnticholinergicStart: 12-27-2018 End: 70-49-3851Usejq: 07-23-2018 End: 31-87-1672lhgu 1 capsule by inhalation once dailyTiotropium [place] (Spiriva With Handihaler) 18 mcg Capsule, W/Inhalation Device Discontinued 18 MCG INHALATION Daily December 26, 2018 11:00pm September 27, 2019 11:07am copdStart: 07-23-2018 End: 95-58-6888Nvimbgczci [place] (Spiriva With Handihaler) 18 mcg capsule, w/inhalation device Discontinued July 23, 2018 12:00am December 27, 2018 8:43am Problems Active Problems Problem ClassificationProblemDateDocumented DateEpisodic/ChronicAbdominal pain (3 sources)Unspecified abdominal painEpisodicAcute myocardial infarction (9 sources)Myocardial infarction; Translations: [Myocardial infarction type 2] Onset: 870586-86-0351KzvgclwNzhfmns disorders (20 sources)Mixed anxiety and depressive disorder; Translations: [Other specified anxiety disorders]ChronicBlindness and vision defects (1 source)Unspecified visual disturbanceEpisodicCardiac dysrhythmias (4 sources)Paroxysmal supraventricular tachycardia; Translations: [Paroxysmal supraventricular tachycardia ([facility])]Onset: 834268-49-4620OmkretjCxhvvhh obstructive pulmonary disease and bronchiectasis (20 sources)Chronic obstructive lung disease; Translations: [Chronic airway obstruction, not elsewhere classified]Onset: 11-24-2021 Resolved: 17-91-4971DenoctbBaoicks obstructive pulmonary disease and bronchiectasis (20 sources)Bronchitis; Translations: [Bronchitis, not specified as acute or chronic]30-84-2925KzfrhzgqRcpvmgnevn heart failure; nonhypertensive (20 sources)Chronic heart failure; Translations: [Heart failure, unspecified] Onset: 176152-45-6134PmciowbBdtczsye atherosclerosis and other heart disease (20 sources)Angina pectoris; Translations: [Angina pectoris, unspecified]Onset: 90-43-8095TtbadnjZpggnkis of mouth; excluding dental (15 sources)Sialoadenitis; Translations: [Sialoadenitis, unspecified]Onset: 12-02-2021 Resolved: 61-62-9119LwiiuaeeCelclboqg of lipid metabolism (20 sources)Hyperlipidemia; Translations: [Other and unspecified hyperlipidemia] Onset: 03-22-2022 Resolved: 31-78-5965YcqtfkpH Codes: Fall (13 sources)Fall; Translations: [Unspecified fall, initial encounter]Onset: 573962-40-0639ZxkjplxnKjboqsupre disorders (20 sources)Gastroesophageal reflux disease; Translations: [Gastro-esophageal reflux disease without esophagitis]31-65-3402PfefcnrDhtciltnh hypertension (20 sources)Benign essential hypertension; Translations: [Benign essential hypertension]Onset: 09-07-2021 Resolved: 39-44-8144EfjrgyzXimln and electrolyte disorders (5 sources)Hypernatremia; Translations: [Hyperosmolality and hypernatremia] 08-39-5334IikehwdiHbzlpsby of lower limb (20 sources)Closed fracture of foot; Translations: [Unspecified fracture of right foot, initial encounter for closed fracture]EpisodicGlaucoma (20 sources)Glaucoma; Translations: [Unspecified glaucoma]88-29-0371XdwsvkeXgdgm valve disorders (4 sources)Nonrheumatic mitral (valve) insufficiency; Translations: [Nonrheumatic tricuspid (valve) insufficiency]Onset: 31-85-6017Gahhsxq Immunizations and screening for infectious disease (14 sources)Encounter for immunization; Translations: [Needs influenza immunization]EpisodicMalaise and fatigue (20 sources)Other fatigue; Translations: [Fatigue]EpisodicMenopausal disorders (20 sources)Menopause present; Translations: [Menopausal and female climacteric states]ChronicMood disorders (20 sources)Depressive disorder; Translations: [Major depressive disorder, single episode, unspecified]Onset: 11-24-2021 Resolved: 92-67-2075HsvtxttCivkxxzhyqt chest pain (15 sources)Chest pain; Translations: [Chest pain, unspecified]Onset: 11-24-2021 Resolved: 54-64-5450CoajxdjhKxgiiqpnutwxah (20 sources)Chronic osteoarthritis; Translations: [Unspecified osteoarthritis, unspecified site]ChronicOsteoporosis (20 sources)Osteoporosis; Translations: [Age-related osteoporosis without current pathological fracture]Onset: 10-07-2021 Resolved: 29-76-6816WhfssnyQdpiy aftercare (1 source)Encounter for palliative careEpisodicOther bone [...] sources)Hearing loss; Translations: [Unspecified hearing loss, bilateral] 16-53-7675OmidbxnWivls ear and sense organ disorders (5 sources)Unspecified hearing loss, unspecified ear; Translations: [Unspecified hearing loss]50-45-5441LofasqxFlilp ear and sense organ disorders (8 sources)Mixed conductive AND sensorineural hearing loss; Translations: [Mixed conductive and sensorineural hearing loss, unilateral, right ear with restricted hearing on the contralateral side]10-84-2075BuvmzkqKwwee fractures (20 sources)Closed fracture sacrum; Translations: [Unspecified fracture of sacrum, subsequent encounter for fracture with routine healing]EpisodicOther gastrointestinal disorders (20 sources)Constipation; Translations: [Constipation, unspecified]EpisodicOther hereditary and degenerative nervous system conditions (20 sources)Restless legs; Translations: [Restless legs syndrome]10-17-2023 ChronicOther hereditary and degenerative nervous system conditions (11 sources)Restless legs syndrome; Translations: [Restless legs syndrome (RLS)] Onset: 07-06-2021 Resolved: 84-51-9714OalvndbWahng injuries and conditions due to external causes (20 sources)Hematoma; Translations: [Other injury of unspecified body region, initial encounter]13-48-3276KiaqlduqVrnix injuries and conditions due to external causes (1 source)Unspecified injury of right foot, initial encounterEpisodicOther lower respiratory disease (1 source)Dyspnea, unspecifiedEpisodicOther lower respiratory disease (6 sources)Cough; Translations: [New onset cough]76-31-1210EbbcytmsXeqec lower respiratory disease (8 sources)Rib pain; Translations: [Pleurodynia]29-90-5158GoispnxcDhcll non- traumatic joint disorders (20 sources)Hip pain; Translations: [Pain in left hip]47-02-3651ZcrnvsssFsbey nutritional; endocrine; and metabolic disorders (20 sources)Hypercalcemia; Translations: [Hypercalcemia]ChronicOther nutritional; endocrine; and metabolic disorders (2 sources)HypercalcemiaChronicOther nutritional; endocrine; and metabolic disorders (6 sources)Abnormal weight loss; Translations: [Loss of weight]Onset: 11-14-2024 EpisodicOther nutritional; endocrine; and metabolic disorders (5 sources)Weight decreased; Translations: [Abnormal weight loss]12-24-2024 EpisodicOther skin disorders (1 source)Other skin changesEpisodicOther skin disorders (6 sources)Localized swelling, mass and lump, neck; Translations: [Swelling, mass, or lump in head and neck]92-77-4954YqemkhmwFvgvgh media and related conditions (20 sources)Dysfunction of eustachian tube; Translations: [Unspecified Eustachian tube disorder, unspecified ear]36-09-7302SgaahhjeYqltcitxjzex fracture (4 sources)Age-related osteoporosis with current pathological fracture, unspecified site, initial encounter for fracture; Translations: [AGE-REL OP W/CURR PATH FX INIT ENC]Onset: 55-05-8540FqypomfcXidtqtklxs and visceral atherosclerosis (20 sources)Peripheral vascular disease, unspecified; Translations: [Ischemic colitis]Onset: 06-10-2021 Resolved: 33-75-1349NzwdiwzUgwvyvkhh (except that caused by tuberculosis or sexually transmitted disease) (7 sources)Pneumonia; Translations: [Pneumonia, unspecified organism]02-12-2025 EpisodicPulmonary heart disease (20 sources)Pulmonary hypertension; Translations: [Pulmonary hypertension, unspecified]Onset: 747949-67-6306AluqvarJyzgirhz codes; unclassified (20 sources)Sleep apnea; Translations: [Sleep apnea, unspecified]10-17-2023 ChronicResidual codes; unclassified (8 sources)Sleep apnea, unspecified; Translations: [Unspecified sleep apnea] Onset: 071689-35-0927HnmamuaVlfjjnlo codes; unclassified (5 sources)Body mass index 20-24 - normal; Translations: [Body Mass Index between 19-24, adult]EpisodicResidual codes; unclassified (20 sources)Insomnia; Translations: [Insomnia, unspecified]EpisodicResidual codes; unclassified (2 sources)Edema, unspecifiedOnset: 03-22-2022 Resolved: 07-95-9413HmrvxvofIwkesjfjdhd failure; insufficiency; arrest (adult) (5 sources)Dependence on supplemental oxygen; Translations: [Dependence on supplemental oxygen]55-06-8633GcuxfedFbgporyrova failure; insufficiency; arrest (adult) (20 sources)Acute respiratory failure; Translations: [Acute respiratory failure with hypoxia]34-34-7360PpiygfpfPshvxks detachments; defects; vascular occlusion; and retinopathy (20 sources)Degenerative disorder of macula ; Translations: [Unspecified macular degeneration]59-95-1515ClpkuvxWexgzhkcmho; intervertebral disc disorders; other back problems (20 sources)Cervical spondylosis without myelopathy; Translations: [Spondylosis without myelopathy or radiculopathy, cervical region]55-28-5103Furfemo Spondylosis; intervertebral disc disorders; other back problems (20 sources)Pain in thoracic spine; Translations: [Sciatica]Onset: 03-22-2022 Resolved: 57-94-9299UhzyowfwJtwwarzfkvuf (1 source)Cough, unspecified; Translations: [Cough, unspecified]Onset: 45-38-1322Cuczlnjpwhyj (1 source)Low back pain, unspecified; Translations: [Low back pain, unspecified] Onset: 34-30-6824Jpubbxlqjyqp (1 source)Supraventricular tachycardia, unspecified (CMS-HCC); Translations: [Supraventricular tachycardia, unspecified (CMS-HCC)]Onset: 08-31-2023 Unclassified (2 sources)hest painOnset: 94-44-3873Iowabaykhyaj (1 source)Other supraventricular tachycardia; Translations: [Other supraventricular tachycardia]Onset: 78-85-9951Nhxrhbrbdqin (1 source)Supraventricular tachycardia, unspecified; Translations: [Supraventricular tachycardia, unspecified]Onset: 02-06-2025 Past or Other Problems Problem ClassificationProblemDateDocumented DateEpisodic/ChronicCardiac dysrhythmias (2 sources)Tachycardia, unspecified; Translations: [Tachycardia, unspecified] Onset: 26-77-7100QjaujemsGldhekq (1 source)Unspecified mycosisOnset: 11-24-2021 Resolved: 53-87-4102WukszjawReydi lower respiratory disease (6 sources)Dyspnea; Translations: [Other respiratory abnormalities]Onset: 278511-09-8485JglnpcisBfell lower respiratory disease (1 source)Shortness of breathOnset: 11-24-2021 Resolved: 80-28-5811MppiasmsGvshr lower respiratory disease (7 sources)Pleurodynia; Translations: [Chest pain, unspecified]Onset: 03-22-2022 Resolved: 02-56-4367LsstspnuTwmzy lower respiratory disease (1 source)Other forms of dyspneaOnset: 03-22-2022 Resolved: 42-71-1744TnlzkvssYqnnn lower respiratory disease (1 source)Hypoxemia; Translations: [HYPOXEMIA]Onset: 62-19-2634JgbucbjxUfocs non-traumatic joint disorders (19 sources)Pain in left hip; Translations: [Pain in joint, pelvic region and thigh]Onset: 108482-19-0612TmtigyfeCtxthrst codes; unclassified (6 sources)Edema; Translations: [Edema]Onset: 716374-97-2231Dclxnwqv Screening and history of mental health and substance abuse codes (9 sources)Ex-smoker; Translations: [Personal history of tobacco use]Onset: 644877-35-1326JlbrhxldFpbljgr on above:Quit Smoking 1998 - smoked 1 PPD; Syncope (6 sources)Syncope; Translations: [Syncope and collapse]Onset: 08-31-2023 36-65-9808KdphlcekQwgujiegjhcc (1 source)Cough R05.9Onset: 11-24-2021 Resolved: 81-65-0135Ohpjqxkligou (1 source)Acute cough R05.1Unclassified (1 source)Onset: 104498-13-8360Arayoigdiwgy (1 source)Supraventricular tachycardia, unspecified (CMS-HCC); Translations: [Supraventricular tachycardia, unspecified (CMS-HCC)]Onset: 02-09-2024 Unclassified (1 source)Other supraventricular tachycardia; Translations: [Other supraventricular tachycardia]Onset: 83-65-5847Gxazqhsqzuut (1 source)Supraventricular tachycardia, unspecified; Translations: [Supraventricular tachycardia, unspecified]Onset: 02-27-2025 Results Test NameValueInterpretationReference XkjpzRxgfkjqs02ub 43-44-534390Hygfpf went bedside and talked with patient about discharge planning. Patient stated she plans to dc home today and wears 1 L [place] oxygen at home through [facility]. Patient did say she was planning on moving to [place], [place] by [place]. Patient had questions on if [facility] has offices in [place]. Patient was agreeable for senior mortgage underwriter to call [facility] to confirm. Dobby Loom Weaver called [facility] while in patients room and talk with staff. Dobby Loom Weaver was told by [facility] staff that they do have offices in [place] and confirmed they have one in [place]. Dobby Loom Weaver was also told by staff that patient will need to call [facility] with 1 - 2 weeks before moving so they can transfer information to local office. Dobby Loom Weaver informed patient of this, patient voiced understanding and senior mortgage underwriter placed information on AVS as well.NormalUnSt. John of God Hospital30The patient is Moderately Stable - Low risk of patient condition declining or worsening The patient's goals for the shift include rest The clinical goals for the shift include VSS, safety, comfort Over the shift, the patient did not make progress toward the following goals. Barriers to progression include na. Recommendations to address these barriers include na.NormalUnSt. John of God HospitalBASIC METABOLIC PANELon 72-35-2501Xmnzx gap [Moles/Vol]11 mmol/LNormal7-20UnSt. John of God HospitalComment on above:Performed By: #### [id number] #### [facility] ([facility]) [address] [place], [place] [address]Sidwpww [Mass/Vol]8.9 mg/dLNormal8.6-10.3UnSt. John of God HospitalComment on above:Performed By: #### [id number] #### [facility] ([facility]) [address] [place], [place] [address]Boflegpq [Moles/Vol]109 mmol/FQvgt13-444XrlszpiefaSt. John of God HospitalComment on above:Performed By: #### [id number] #### [facility] ([facility]) [address] [facility] [place], [place] [address]XU8 [Moles/Vol]22 mmol/PHjihug22-19AcfrirzeunSt. John of God HospitalComment on above:Performed By: #### [id number] #### [facility] ([facility]) [address] [place] [address]Yqxzdtemah [Mass/Vol]0.59 mg/dLLow0.60-1.20UnSt. John of God HospitalComment on above:Performed By: #### [id number] #### [facility] ([facility]) [address] [place] [place] [address]TUQBVVYRVQ FILTRATION RATE ML/MIN/1.73 SQ M.POHYTIOZB12.4 mL/min/1.73m*2Normal>60.0UnSt. John of God HospitalComment on above: Result Comment: [facility]???s estimated glomerular filtration rate (eGFR) [...] potential consequences that do not disproportionately affect anyone group of individuals.Performed By: #### [id number] #### [facility] ([facility]) [address] [place] [place], [place] [address]Ubtzdcd [Mass/Vol]82 mg/cACdbwth76-377PoxqslnytiSt. John of God HospitalComment on above:Performed By: #### [id number] #### [facility] ([facility]) [address] [place], [place] [address]Sopdfbvga [Moles/Vol]3.9 mmol/LNormal3.5-5.1UnSt. John of God HospitalComment on above:Performed By: #### [id number] #### [facility] ([facility]) [address] [place] [address]Hwpntb [Moles/Vol]138 mmol/BEeyfgw287-535WcupymujzmSt. John of God HospitalComment on above:Performed By: #### [id number] #### [facility] ([facility]) [address] [place] [address]Jzos nitrogen [Mass/Vol]12 mg/dLNormal7-25UnSt. John of God HospitalComment on above:Performed By: #### [id number] #### [facility] ([facility]) [address] [place] [address]ZMDL NITROGEN/CREATININE (MASS RATIO) IN SER/PLAS20.3Normal [facility] CenterComment on above:Performed By: #### [id number] #### [facility] ([facility]) [address] [place], [place] [address]GHUFNAJUME AND HEMATOCRIT, BLOODon 89-96-0898Jwokuvdgor (Bld) [Volume fraction]34.9 %Low36.0-45.0UnSt. John of God HospitalComment on above:Performed By: #### [id number] #### [facility] ([facility]) [address] [place] [place], [place] [address]Bfvuxazywk (Bld) [Mass/Vol]10.9 g/dLLow12.0-15.0UnSt. John of God HospitalComment on above:Performed By: #### [id number] #### [facility] ([facility]) [address] [place] [place], [place] [address]XEKWGPJGOah 69-59-8992Etxdyusdv [Mass/Vol]1.9 mg/dLNormal1.9-2.7 [facility] CenterComment on above:Performed By: #### [id number] ####[facility] ([facility])[address] [place] [id number] 06-23-2025 30The patient is Moderately Stable - Low risk [...] with appropriate resources: Identify barriers to discharge with patient and caregiver Problem: Chronic Conditions and Co-morbidities Goal: Patient's chronic conditions and co-morbidity symptoms are monitored and maintained or improved Outcome: Progressing Flowsheets (Taken 06/23/20252227) Care Plan - Patient's Chronic Conditions and Co-Morbidity Symptoms are Monitored and Maintained or Improved: Monitor and assess patient's chronic conditions and comorbid symptoms for stability, deterioration, or improvement Collaborate with multidisciplinary team to address chronic and comorbid conditions and prevent exacerbation or deterioration Problem: Cardiovascular - Adult Goal: Maintains optimal cardiac output and hemodynamic stability Outcome: Progressing Flowsheets (Taken 06/23/20252227) Maintains optimal cardiac output and hemodynamic stability: Monitor blood pressure and heart rateNormalUniversity of [facility]30The patient is Moderately Stable - Low risk of patient condition declining or worsening The patient's goals for the shift include rest, safety The clinical goals for the shift include vss, comfort Over the shift, the patient did not make progress toward the following goals. Barriers to progression include na. Recommendations to address these barriers include na.NormalUnSt. John of God HospitalANESon 05-00-2336TLXP Attestation signed by Xochitl Maradiaga MD at 06/28/2025 2:24 PM By using the attestations below, the signing [...] be an additional personal documentation from me. Patient: Aleksandr E Joce Choose an anesthesia record to view details [...] discussed with attending and fellow. Additional Equipment RequestsNormalUniversMarion HospitalANTI-XA (HEPARIN LEVEL)on [id number] UNFRACTIONATED (U/ML) IN PPP BY CHROMOGENIC METHOD0.41 IU/mLNormal0.3-0.7UnSt. John of God HospitalComment on above:Result Comment: Rivaroxaban and Apixaban will interfere with the anti Xa assay used to monitor UFH and LMWH.Performed By: #### [id number] #### [facility] ([facility]) [address] [place], [place] [address]RBhv 12-47-3440IZIkxwkxhj E Sanchez is a 84 y.o. female with [...] there are no changes to the H&P. NormalUnSt. John of God HospitalHP Attestation signed by Xochitl Maradiaga MD at 06/28/2025 2:24 PM By using the attestations below, the signing [...] be an additional personal documentation from me. H&P reviewed. The patient was examined and there are no changes to the H&P. We will proceed with ROMAN for further assessment of valvular disease. Risks and benefits of procedure discussed with patient in detail, all questions were answered, patient is agreeable and wishes to proceed. Jerri Knight MD PGY-5 adult health clinical nurse specialist [facility] Main CampusNURSNOTEon [id number] given to ZOFIA Crowell from ZOFIA Arboleda [...] will be coming up to the floor soon.NormalUnSt. John of God HospitalANTI-XA (HEPARIN LEVEL)on [id number] UNFRACTIONATED (U/ML) IN PPP BY CHROMOGENIC METHOD0.41 IU/mLNormal0.3-0.7UnSt. John of God HospitalComment on above:Order Comment: Check anti-Xa level every 6 hours while on heparin infusion, or per protocol.Result Comment: Rivaroxaban and Apixaban will interfere with the anti Xa assay used to monitor UFH and LMWH. Performed By: #### [id number] #### [facility] ([facility]) [address] [place], [place] [address]EDKTJ METABOLIC PANELon 01-68-0825Ldopk gap [Moles/Vol]9 mmol/L Normal7-20UnSt. John of God HospitalComment on above:Performed By: #### [id number] #### [facility] ([facility]) [address] [place], [place] [address]Zonpzpq [Mass/Vol]9.3 mg/dLNormal8.6-10.3UnSt. John of God HospitalComment on above:Performed By: #### [id number] #### [facility] ([facility]) [address] [place], [place] [address]Bhrffmrh [Moles/Vol]107 mmol/BPumnmc96-585RavehbggiySt. John of God HospitalComment on above:Performed By: #### [id number] #### [facility] ([facility]) [address] [place], [place] [address]ZM3 [Moles/Vol]29 mmol/NEgxgcu14-14XmewxestkeSt. John of God HospitalComment on above:Performed By: #### [id number] #### [facility] ([facility]) [address] [place], [place] [address]Mpxmlmqhil [Mass/Vol]0.72 mg/dLNormal0.60-1.20UnSt. John of God HospitalComment on above:Performed By: #### [id number] #### [facility] ([facility]) [address] [place], [place] [address]UBLXLIAPWN FILTRATION RATE ML/MIN/1.73 SQ M.YUFGEKTYZ97.9 mL/min/1.73m*2Normal>60.0UnSt. John of God HospitalComment on above: Result Comment: [facility]???s estimated glomerular filtration rate (eGFR) [...] potential consequences that do not disproportionately affect anyone group of individuals.Performed By: #### [id number] #### [facility] ([facility]) [address] [place], [place] [address]Unliqgy [Mass/Vol]87 mg/sYXbnqgs24-798AzimaaltgbSt. John of God HospitalComment on above:Performed By: #### [id number] #### [facility] ([facility]) [address] [place], [place] [address]Mlihomovm [Moles/Vol]3.7 mmol/LNormal3.5-5.1UnSt. John of God HospitalComment on above:Performed By: #### [id number] #### [facility] ([facility]) [address] [place], [place] [address]Oksqid [Moles/Vol]141 mmol/NYeqvjx590-201SratzqvexeSt. John of God HospitalComment on above:Performed By: #### [id number] #### [facility] ([facility]) [address] [place], [place] [address]Zxnk nitrogen [Mass/Vol]21 mg/dLNormal7-25UnSt. John of God HospitalComment on above:Performed By: #### [id number] #### [facility] ([facility]) [address] [place], [place] [address]NGLW NITROGEN/CREATININE (MASS RATIO) IN SER/PLAS29.2Normal [facility] Medical CenterComment on above:Performed By: #### [id number] #### [facility] ([facility]) [address] [place] [address]MVJxz 59-54-6040Lwrtmxzwrod distribution width (RBC) [Ratio]15.2 %High11.5-15.0UnSt. John of God HospitalComment on above:Performed By: #### [id number] #### [facility] ([facility]) [address] [place] [address]EPKDDQEJWQB MEAN CORPUSCULAR HEMOGLOBIN CONCENTRATION (G/DL) BY OZJTOAFAT65.9 g/qBSxinhs63.0-35.0UnSt. John of God HospitalComment on above:Performed By: #### [id number] #### [facility] ([facility]) [address] [place] [address]Jexxuknktc (Bld) [Volume fraction]35.3 %Low36.0-45.0UnSt. John of God HospitalComment on above:Performed By: #### [id number] #### [facility] ([facility]) [address] [place] [address]Ibsrnkvibf (Bld) [Mass/Vol]11.6 g/dLLow12.0-15.0UnSt. John of God HospitalComment on above:Performed By: #### [id number] #### [facility] ([facility]) [address] [place] [address]NSS (RBC) [Entitic mass]30.9 fzCjesjn09.0-33.0UnSt. John of God HospitalComment on above:Performed By: #### [id number] #### [facility] ([facility]) [address] [place] [address]HQY (RBC) [Entitic vol]94.1 dNOsvhkh05.0-98.0UnSt. John of God HospitalComment on above:Performed By: #### [id number] #### [facility] ([facility]) [address] [place] [address]ORARKVRIK (10*3/UL) IN BLOOD AUTOMATED [id number] 10*3/uLNormal 150-400UnSt. John of God HospitalComment on above:Performed By: #### [id number] #### [facility] ([facility]) [address] [place] [address]WRX (Bld) [#/Vol]3.75 10*6/uLLow3.80-5.00UnSt. John of God HospitalComment on above:Performed By: #### [id number] #### [facility] ([facility]) [address] [place] [address]UNC (Bld) [#/Vol]10.54 10*3/uLNormal4.00-10.60UnSt. John of God HospitalComment on above:Performed By: #### [id number] #### [facility] ([facility]) [address] [facility] [address] [place] [address]HOES-TJ (HEPARIN LEVEL)on 96-46-0767YZZYOZF UNFRACTIONATED (U/ML) IN PPP BY CHROMOGENIC METHOD0.34 IU/mLNormal0.3-0.7UnSt. John of God HospitalComment on above:Order Comment: Check anti-Xa level every 6 hours while on heparin infusion, or per protocol.Result Comment: Rivaroxaban and Apixaban will interfere with the anti Xa assay used to monitor UFH and LMWH. Performed By: #### [id number] #### [facility] ([facility]) [address] [place], [place] [address]BDRBDOI UNFRACTIONATED (U/ML) IN PPP BY CHROMOGENIC METHOD0.16 IU/mLInvalid Interpretation Code0.3-0.7UnSt. John of God Hospital Comment on above:Order Comment: Check anti-Xa level every 6 hours while on heparin infusion, or per protocol.Result Comment: Rivaroxaban and Apixaban will interfere with the anti Xa assay used to monitor UFH and LMWH.Performed By: #### [id number] #### [facility] ([facility]) [address] [place] [address]VPGBxd 78-67-1540FPEQRGLMM PARTIAL THROMBOPLASTIN TIME IN PPP BY COAGULATION ASSAY26.4 WqqwutzWcrssu15.0-35.0UnSt. John of God Hospital Comment on above:Order Comment: Baseline aPTT before initiating heparin infusion.Result Comment: Clinical significance of the APTT is questionable in the presence of heparin.Performed By: #### [id number] #### [facility] ([facility]) [address] [place], [place] [address]F-PCSG NATRIURETIC PEPTIDEon 84-99-6026Pmvuajmfftw peptide B (Bld) [Mass/Vol]539 pg/mLHigh0-100UnSt. John of God HospitalComment on above:Performed By: #### [id number] #### [facility] ([facility]) [address] [place], [place] [address]NNYZS METABOLIC PANELon 19-73-0790Mrktv gap [Moles/Vol]13 mmol/L Normal7-20UnSt. John of God HospitalComment on above:Performed By: #### [id number] #### [facility] ([facility]) [address] [place], [place] [address]Rnjgdmq [Mass/Vol]9.5 mg/dLNormal8.6-10.3UnSt. John of God HospitalComment on above:Performed By: #### [id number] #### [facility] ([facility]) [address] [place], [place] [address]Bsfkaxnq [Moles/Vol]103 mmol/ZCjooww70-328WvcdudqakzSt. John of God HospitalComment on above:Performed By: #### [id number] #### [facility] ([facility]) [address] [place], [place] [address]EP4 [Moles/Vol]29 mmol/ULhwpew59-21VytwmyfrwkSt. John of God HospitalComment on above:Performed By: #### [id number] #### [facility] ([facility]) [address] [place], [place] [address]Yzivvwmtxr [Mass/Vol]0.99 mg/dLNormal0.60-1.20UnSt. John of God HospitalComment on above:Performed By: #### [id number] #### [facility] ([facility]) [address] [place], [place] [address]BQAKIZOMSZ FILTRATION RATE ML/MIN/1.73 SQ M.HJWQKOKHW44.6 mL/min/1.73m*2Low>60.0UnSt. John of God HospitalComment on above:Result Comment: [facility]???s estimated glomerular filtration rate (eGFR) [...] potential consequences that do not disproportionately affect anyone group of individuals.Performed By: #### [id number] #### [facility] ([facility]) [address] [place], [place] [address]Xcvkzhn [Mass/Vol]96 mg/eWKymijm11-730LzeqaovynuSt. John of God HospitalComment on above:Performed By: #### [id number] #### [facility] ([facility]) [address] [place], [place] [address]Iowgigkvc [Moles/Vol]3.8 mmol/LNormal3.5-5.1UnSt. John of God HospitalComment on above:Performed By: #### [id number] #### [facility] ([facility]) [address] [place], [place] [address]Thvqwo [Moles/Vol]141 mmol/OEbmxzk740-204QbnkaemsscSt. John of God HospitalComment on above:Performed By: #### [id number] #### [facility] ([facility]) [address] [place], [place] [address]Ypik nitrogen [Mass/Vol]38 mg/dLHigh7-25UnSt. John of God HospitalComment on above:Performed By: #### [id number] #### [facility] ([facility]) [address] [place], [place] [address]JJQQ NITROGEN/CREATININE (MASS RATIO) IN SER/PLAS38.4Normal [facility] CenterComment on above:Performed By: #### [id number] #### [facility] ([facility]) [address] [place], [place] [address]DAA WITH AUTO DIFFERENTIALon 16-19-6680Ojvhdidrt (Bld) [#/Vol] 0.08 10*3/uLNormal0.00-0.20UnSt. John of God HospitalComment on above: Performed By: #### [id number] #### [facility] ([facility]) [address] [place], [place] [address]Klavbdofp/100 WBC (Bld)0.7 %Normal0.0-1.0UnSt. John of God HospitalComment on above:Performed By: #### [id number] #### [facility] ([facility]) [address] [place], [place] [address]Rinzxuhxurj (Bld) [#/Vol]0.15 10*3/uLNormal0.00-0.50UnSt. John of God HospitalComment on above:Performed By: #### [id number] #### [facility] ([facility]) [address] [place], [place] [address]Rdsxkpplnek/100 WBC (Bld)1.3 %Normal0.0-6.0UnSt. John of God HospitalComment on above:Performed By: #### [id number] #### [facility] ([facility]) [address] [place], [place] [address]Nytspqasrhf distribution width (RBC) [Ratio]15.2 %High11.5-15.0 [facility] CenterComment on above:Performed By: #### [id number] #### [facility] ([facility]) [address] [place], [place] [address]DILBADZVCBG MEAN CORPUSCULAR HEMOGLOBIN CONCENTRATION (G/DL) BY SJZYJJQDG50.8 g/gJYeaatw10.0-35.0UnSt. John of God HospitalComment on above:Performed By: #### [id number] #### [facility] ([facility]) [address] [place], [place] [address]Cgekhqdkvq (Bld) [Volume fraction]39.0 %Frifei14.0-45.0 [facility] CenterComment on above:Performed By: #### [id number] #### [facility] ([facility] [address] [place], [place] [address]Lfxvugshib (Bld) [Mass/Vol]12.8 g/mPYrcfrb88.0-15.0UnSt. John of God HospitalComment on above:Performed By: #### [id number] #### [facility] ([facility]) [address] [place] [address]Doefvnaf granulocytes (Bld) [#/Vol]0.04 10*3/uLNormal0.00-0.20 [facility] CenterComment on above:Performed By: #### [id number] #### [facility] ([facility]) [address] [place], [place] [address]Cayhwmgu granulocytes/100 WBC (Bld)0.3 %Normal0.0-1.0UnSt. John of God HospitalComment on above:Performed By: #### [id number] #### [facility] ([facility]) [address] [place], [place] [address]Nivpcvfnajp (Bld) [#/Vol]3.12 10*3/uLNormal1.20-4.00UnSt. John of God HospitalComment on above:Performed By: #### [id number] #### [facility] ([facility]) [address] [place], [place] [address]Amarzjmrlxe/100 WBC (Bld)26.4 %Adujzi62.0-45.0UnSt. John of God HospitalComment on above:Performed By: #### [id number] #### [facility] ([facility]) [address] [facility] [address] [place], [place] [address]OKR (RBC) [Entitic mass]30.7 gcPhsqsx50.0-33.0UnSt. John of God HospitalComment on above:Performed By: #### [id number] #### [facility] ([facility] [address] [place], [place] [address]GZF (RBC) [Entitic vol]93.5 jOSzerdj96.0-98.0UnSt. John of God HospitalComment on above:Performed By: #### [id number] #### [facility] ([facility]) [address] [place] [address]Msaemvrzp (Bld) [#/Vol]0.80 10*3/uLNormal0.10-1.00UnSt. John of God HospitalComment on above:Performed By: #### [id number] #### [facility] ([facility]) [address] [place] [address]Iojxmfzdx/100 WBC (Bld)6.8 %Normal5.0-12.0UnSt. John of God HospitalComment on above:Performed By: #### [id number] #### [facility] ([facility]) [address] [place] [address]Slieqbbuigf (Bld) [#/Vol]7.61 10*3/uLHigh1.60-7.60UnSt. John of God HospitalComment on above:Performed By: #### [id number] #### [facility] ([facility]) [address] [place] [address]Mlszwgloszu/100 WBC (Bld)64.5 %Lelrmp24.0-72.0UnSt. John of God HospitalComment on above:Performed By: #### [id number] #### [facility] ([facility]) [address] [place] [address]OILY (PER 100 WBCS) BY AUTOMATED COUNT0.0 %Qtobbj7DwtgslbjihSt. John of God HospitalComment on above:Performed By: #### [id number] #### [facility] ([facility]) [address] [place] [address]MVNNGKACR (10*3/UL) IN BLOOD AUTOMATED [id number] 10*3/uLNormal 150-400UnSt. John of God HospitalComment on above:Performed By: #### [id number] #### [facility] [address] [place] [address]FMI (Bld) [#/Vol]4.17 10*6/uLNormal3.80-5.00UnSt. John of God HospitalComment on above:Performed By: #### [id number] #### [facility] ([facility]) [address] [place] [address]CZK (Bld) [#/Vol]11.80 10*3/uLHigh4.00-10.60UnSt. John of God HospitalComment on above:Performed By: #### [id number] #### [facility] ([facility]) [address] [place] [address]RYJNAZUur 06-[birth year]-1954HDGHSUA Attestation signed by Bautista Bliss MD at 06/21/2025 9:57 PM By using the attestations below, the signing [...] on stress test to eval for CAD. Cardiology Consult Note Reason for Consult: chest pain HPI: Aleksandr Sanchez is a 84 y.o. female with a past medical history significant for SVT, COPD, HFpEF, HLD, pulmonary HTN. Patient presented with chest pain to [facility]. According to family she had an episode of nausea, chest pain radiating to jaw and left arm, lightheadedness but no syncope on Thursday which resolved within a couple hours without treatment and then similar symptoms again yesterday which prompted visit to [facility]. EKG showed sinus rhythm with RBBB. Peak troponin 603 now down trending. She was initiated on a heparin gtt and transferred to [facility] for further management of NSTEMI. Cardiology ROS: Negative except as mentioned. Past Medical History She has a past medical history of CHF (congestive heart failure) ([facility]), COPD (chronic obstructive pulmonary disease) ([facility]), Hyperlipidemia, and Hypertension. Surgical History She has a past surgical history that includes Appendectomy; Hysterectomy; and Cardiac catheterization. Social History She reports that she has quit smoking. Her smoking use included cigarettes. She has been exposed to tobacco smoke. She has never used smokeless tobacco. [...] nasal spray 2 sprays, 2 times daily mplsobzzjlw-oumzyyzxh-hxaiyewg 100-62.5-25 mcg blister with device Daily latanoprost [...] SpO2 Height Weight 06/21/25 1136 164/69 36.6 ???C (97.8 ???F) Temporal 87 16 100 % -- -- 06/21/25 1042 -- -- -- -- -- -- 1.524 m (5') 42.3 kg (93 lb 3.2 oz) 06/21/25 1031 150/67 36.8 ???C (98.2 ???F) Temporal 93 20 91 % -- -- [...] Value Ventricular Rate 78 Atrial Rate 78 SD Interval 126 QRS DURATION 134 QT Interval 418 QTC CALCULATION(BAZETT) 476 P [place] 61 R-[place] 88 T Wave [place] 25 Impression Sinus rhythm with Premature atrial complexes Possible Left atrial enlargement Right bundle branch block Abnormal ECG No previous ECGs available Confirmed by Bautista Bliss (80) on 06/21/2025 1:20:56 PM No results [...] No previous ECGs available Confirmed by Bautista Bliss (80) on 06/21/2025 1:20:56 PM XR chest 1 view Narrative: XR CHEST 1 VIEW 06/21/2025 10:17 AM CLINICAL INDICATIONS: Shortness of breath COMPARISON: None FINDINGS: Cardiac silhouette and pulmonary vessels are within normal limits. No pneumothorax. No infiltrate or pleural effusion. Impression: No acute pulmonary process. Electronically signed: Blayne Quiñones (more content not included)...NormalUnSt. John of God HospitalHIGH SENSITIVITY TROPONIN Ion 24-03-7397DD TROPONIN I (NG/L)94 ng/LCritically high<15UnSt. John of God HospitalComment on above:Performed By: #### [id number] #### [facility] ([facility]) [address] [place], [place] [address]DQ TROPONIN I (NG/L)124 ng/LCritically high<15UnSt. John of God HospitalComment on above:Performed By: #### [id number] #### [facility] ([facility]) [address] [place], [place] [address]SB TROPONIN I (NG/L)168 ng/LCritically high<15UnSt. John of God HospitalComment on above:Performed By: #### [id number] #### [facility] ([facility]) [address] [place], [place] [address]ZY TROPONIN I (NG/L)227 ng/LCritically high<15UnSt. John of God HospitalComment on above:Performed By: #### [id number] #### [facility] ([facility]) [address] [facility] [place] [address]AUqg 34-75-1523GZ Attestation signed by Bautista Bliss MD at 06/21/2025 9:57 PM By using the attestations below, the signing [...] on stress test to eval for CAD. Cardiology Consult Note Reason for Consult: chest pain HPI: Aleksandr Sanchez is a 84 y.o. female with a past medical history significant for SVT, COPD, HFpEF, HLD, pulmonary HTN. Patient presented with chest pain to [facility]. According to family she had an episode of nausea, chest pain radiating to jaw and left arm, lightheadedness but no syncope on which resolved within a couple hours without treatment and then similar symptoms again yesterday which prompted visit to [facility]. EKG showed sinus rhythm with RBBB. Peak troponin 603 now down trending. She was initiated on a heparin gtt and transferred to [facility] for further management of NSTEMI. Cardiology [...] use included cigarettes. She has been exposed to tobacco smoke. She has never used smokeless tobacco. [...] nasal spray 2 sprays, 2 times daily azsqtorpqck-rtefgbhdc-rnyqaopx 100-62.5-25 mcg blister with device Daily latanoprost [...] SpO2 Height Weight 06/21/25 1136 164/69 36.6 ???C (97.8 ???F) Temporal 87 16 100 % -- -- 06/21/25 1042 -- -- -- -- -- -- 1.524 m (5') 42.3 kg (93 lb 3.2 oz) 06/21/25 1031 150/67 36.8 ???C (98.2 ???F) Temporal 93 20 91 % -- -- [...] Value Ventricular Rate 78 Atrial Rate 78 SD Interval 126 QRS DURATION 134 QT Interval 418 QTC CALCULATION(BAZETT) 476 P [place] 61 R-[place] 88 T Wave [place] 25 Impression Sinus rhythm with Premature atrial complexes Possible Left atrial enlargement Right bundle branch block Abnormal ECG No previous ECGs available Confirmed by Bautista Bliss (80) on 06/21/2025 1:20:56 PM No results [...] No previous ECGs available Confirmed by Bautista Bliss (80) on 06/21/2025 1:20:56 PM XR chest 1 view Narrative: XR CHEST 1 VIEW 06/21/2025 10:17 AM CLINICAL INDICATIONS: Shortness of breath COMPARISON: None FINDINGS: Cardiac silhouette and pulmonary vessels are within normal limits. No pneumothorax. No infiltrate or pleural effusion. Impression: No acute pulmonary process. Electronically signed: Blayne Quiñones (more content not included)...NormalUnSt. John of God HospitalLACTIC ACID, PLASMAon 62-76-4925BASLZSQ (MMOL/L) IN SER/PLAS1.4 mmol/LNormal0.5-2.2UnSt. John of God HospitalComment on above:Performed By: #### [id number] #### [facility] ([facility]) [address] [place], [place] [id number] [Mass/Vol]2.1 mg/dLNormal1.9-2.7 [facility] Medical CenterComment on above:Performed By: #### [id number] #### [facility] ([facility]) [address] [place], [place] [address]Wwkdmzpax partial thromboplastin time (aPTT) in platelet poor plasma by coagulation aOrdered By: Den Ponce on [id number] Coag (PPP) [Time]23.9 s22.3-36.2FMercer County Community HospitalBasophils Auto (Bld) [#/Vol]Ordered By: Den Ponce on [id number] (Bld) [#/Vol]0.1 10 3/uL 0.0-0.1FMercer County Community HospitalBasophils/100 WBC Auto (Bld)Ordered By: Den Ponce on [id number]/100 WBC (Bld)0.6 %0.2-2.0[facility] CenterEosinophils/100 WBC Auto (Bld)Ordered By: Den Ponce on [id number]/100 WBC (Bld)1.4 %0.9-7.0[facility] Erythrocyte distribution width Auto (RBC) [Ratio]Ordered By: Den Ponce on [id number] distribution width (RBC) [Ratio]14.9 %11.0-15.0[facility] Medical CenterFibrin D-dimer [Presence] in Platelet poor plasma by Latex agglutinationOrdered By: Den Ponce on 55-40-8723Etgeji D-dimer LA Ql (PPP)0.60 mg/L FEUHigh<=0.59[facility] CenterComment on above: RESULTS CALLED TO TREVIN Giron RN @BY Jessee Salazar MLT at 2038Increases in D-Dimer concentration observed withthromboembolic events can be variable due to localization,size, and age of the thrombus. Therefore, a thromboembolicevent cannot be diagnosed with certainty on the basis of thereference range. D-Dimers may also be elevated for a varietyof disorders including advanced age, pregnanc y, coronarydisease, cancer, liver disease, infection, inflammation,hematoma, DIC, trauma, post-surgery, diabetes, thrombolyticor anticoagulant therapy, stress, and generalizedhospitalization.Globulin Calc (S) [Mass/Vol]Ordered By: Den Ponce on 11-15-3565Fmcurbmt (S) [Mass/Vol]4.0 g/dLUniversity Hospitals Conneaut Medical CenterGlomerular filtration rate (GFR) estimation in non- AmericanOrdered By: Den Ponce on 12-23-6867QVR/1.73 sq M.predicted among non- blacks MDRD (S/P/Bld) [Vol rate/Area]37 mL/min/{1.73_m2}Low>=60 mL/min/1.73m 2 [facility] Medical CenterHematocrit Auto (Bld) [Volume fraction]Ordered By: Den Ponce on 05-61-3672Unacdemsru (Bld) [Volume fraction]39.1 %36.0-48.0 [facility] CenterHemoglobin [Mass/volume] in BloodOrdered By: Den Ponce on 19-56-6113Lbovmmucxs (Bld) [Mass/Vol]12.7 g/dL12.0-16.0[facility] Medical CenterINR in Platelet poor plasma by Coagulation assayOrdered By: Den Ponce on 63-99-2752IPL Coag (PPP) [Relative time]1.00 {INR}[facility]aut Medical CenterComment on above:DESIRED INR:2.0-3.0 CONDITIONS NOT LISTED BELOW2.5-3.5 FOR PROSTHETIC HEART VALVE REPLACEMENT2.5-3.5 RECURRENT THROMBOSISLaboratory - Chemistry and Chemistry - challengeOrdered By: Den Ponce on 84-57-6992Tfnerincj Ql (U)NegativeNEGATIVEUniversity Hospitals Conneaut Medical CenterGlucose (U) [Mass/Vol]NegativeNEGATIVEUniversity Hospitals Conneaut Medical Center Ketones Ql (U)NegativeNEGATIVEUniversity Hospitals Conneaut Medical CenterpH (U)6.0 [pH] 5.0-9.0[facility] Hospitalpecific gravity (U) [Rel density]1.010 1.005-1.025[facility] CenterUrobilinogen Qn (U)0.2 {Brenda'U}/dL0.2-1.0[facility] CenterAlbumin [Mass/Vol]3.4 g/dL 3.4-5.0[facility] CenterALP [Catalytic activity/Vol]73 U/L46-116 [facility] CenterALT [Catalytic activity/Vol]23 U/L14-59 [facility] CenterAST [Catalytic activity/Vol]20 U/L15-37 [facility] CenterBilirubin [Mass/Vol]0.3 mg/dL0.2-1.0[facility] CenterCalcium [Mass/Vol]10.1 mg/dL8.5-10.1FMercer County Community HospitalChloride [Moles/Vol]100 mmol/L80-956DbtrgtzccUniversity Hospitals Conneaut Medical CenterCO2 [Moles/Vol]31.0 mmol/L21.0-32.0[facility] Creatinine [Mass/Vol]1.37 mg/dLHigh0.55-1.02[facility] GFR/1.73 sq M.predicted MDRD (S/P/Bld) [Vol rate/Area]45 mL/min/{1.73_m2}Low>=60 mL/min/1.73m 2FMercer County Community HospitalGlucose [Mass/Vol]107 mg/dLHigh 74-106[facility] CenterNatriuretic peptide B (Bld) [Mass/Vol] 1212.0 pg/mL<=1800.0[facility] CenterPotassium [Moles/Vol]4.0 mmol/L3.5-5.1FMercer County Community HospitalProtein [Mass/Vol]7.4 g/dL6.4-8.2 [facility] Hospitalodium [Moles/Vol]141 mmol/W462-106DrzmjkhdsUniversity Hospitals Conneaut Medical CenterTSH Qn2.523 m[IU]/L0.358-3.740[facility] CenterUrea nitrogen [Mass/Vol]66.0 mg/dLHigh7.0-18.0[facility] CenterUrea nitrogen/Creatinine [Mass ratio]48.2 mg/mgUniversity Hospitals Conneaut Medical CenterLaboratory - Hematology and Cell countsOrdered By: Den Ponce on 30-23-0049Qqijtvft granulocytes/100 WBC (Bld)1.5 %High0.0-0.5FMercer County Community HospitalLaboratory - Specimen informationOrdered By: Den Ponce on 84-98-0060Twfvwkcpaj (U)CLEARCLEARFMercer County Community HospitalColor (U)LT. YELLOWYELLOWUniversity Hospitals Conneaut Medical CenterLaboratory - UrinalysisOrdered By: Den Ponce on 03-05-8574Gdwmbme casts LM Ql (Urine sed)MODERATEUniversity Hospitals Conneaut Medical CenterLeukocyte esterase Test strip Ql (U)NegativeNEGATIVE [facility] CenterMucus Ql (Urine sed)NONE SEENNONE SEENUniversity Hospitals Conneaut Medical CenterNitrite Ql (U)NegativeNEGATIVEUniversity Hospitals Conneaut Medical CenterProtein Ql (U)NegativeNEG/TRACEUniversity Hospitals Conneaut Medical CenterLeukocytes [#/volume] corrected for nucleated erythrocytes in Blood by Automated coun Ordered By: Den Ponce on 72-31-9835QJO corrected for nucl RBC Auto (Bld) [#/Vol]12.9 10 3/uLHigh4.0-11.0[facility] CenterLymphocytes Auto (Bld) [#/Vol]Ordered By: Den Ponce on 63-99-4479Dfhqakxftoc (Bld) [#/Vol]2.7 10 3/uL1.2-3.8[facility] CenterLymphocytes/100 WBC Auto (Bld) Ordered By: Den Ponce on 47-25-5846Utuezimcxln/100 WBC (Bld)20.8 %20.5-60.0 [facility] Auto (RBC) [Entitic mass]Ordered By: Den Ponce on 34-92-5533ZUM (RBC) [Entitic mass]30.9 pg26.7-34.0[facility] Medical CenterMCHC Auto (RBC) [Mass/Vol]Ordered By: Den Ponce on 06-20-2025 MCHC (RBC) [Mass/Vol]32.5 g/dL29.9-35.2FMercer County Community HospitalMCV Auto (RBC) [Entitic vol]Ordered By: Den Ponce on 61-36-3672XJM (RBC) [Entitic vol]95.1 fL81.0-99.0[facility] CenterMonocytes Auto (Bld) [#/Vol]Ordered By: Den Ponce on 43-00-9994Zetditwrf (Bld) [#/Vol]1.0 10 3/uL High0.3-0.8[facility] CenterMonocytes/100 WBC Auto (Bld)Ordered By: Den Ponce on 01-74-3423Dkexzdqcl/100 WBC (Bld)7.4 %1.7-12.0[facility] Medical CenterNeutrophils Auto (Bld) [#/Vol]Ordered By: Den Ponce on 07-43-8819Azmfrxncpys (Bld) [#/Vol]8.8 10 3/uLHigh1.4-6.5FMercer County Community HospitalNeutrophils/100 WBC Auto (Bld)Ordered By: Den Ponce on 24-56-7105Cgixlykmonm/100 WBC (Bld)68.3 %43.0-75.0[facility] CenterNo Panel InformationOrdered By: Domitila Raya on 50-51-6706Iimacwtj I High Mkuktmvkwvb260.2 pg/mLCritically high4.0-51.3FMercer County Community Hospital Comment on above:RESULTS CALLED TO ER Kathi Giron RN @BY [...] IN ISOLATION BUT SHOULD BE INTERPRETED IN CONJUNCTIONWITH OTHER DIAGNOSTIC AND CLINICAL INFORMATION.No Panel InformationOrdered By: Den Ponce on 97-17-2887Pciic BacteriaTRACE #/HPFAbnormalNONE [facility] CenterUrine Culture ReflexedNOUniversity Hospitals Conneaut Medical CenterUrine Occult BloodNegativeNEGATIVEUniversity Hospitals Conneaut Medical CenterUrine Other Casts SEEN #/LPFAbnormalNONE [facility] CenterUrine Other Crystals None Seen #/HPFNone [facility] HospitalUrine RBC0-2 #/HPF0-2 [facility] CenterUrine Squamous Epithelial CellsRARE #/LPF NONE/RAREUniversity Hospitals Conneaut Medical CenterUrine WBC0-2 #/HPFAbnormalNONE SEEN [facility] CenterEosinophils # (Auto)0.2 10 3/uL0.0-0.7FMercer County Community HospitalImmature Granulocyte # (Auto)0.20 10 3/uLHigh0.00-0.03 [facility] CenterPlatelet mean volume Auto (Bld) [Entitic vol] Ordered By: Den Ponce on 35-75-9922Anuokxgz mean volume (Bld) [Entitic vol] 10.3 fL9.5-13.5FMercer County Community HospitalPlatelets Auto (Bld) [#/Vol] Ordered By: Den Ponce on 58-56-1855Zkcfxzzca (Bld) [#/Vol]282 10 3/yD308-871 [facility] CenterProthrombin time (PT)Ordered By: Den Ponce on 12-73-9686VY Coag (PPP) [Time]10.6 s9.0-11.6FMercer County Community Hospital RBC Auto (Bld) [#/Vol]Ordered By: Den Ponce on 44-07-1049WMA (Bld) [#/Vol] 4.11 10 6/uLLow4.20-5.40S[facility]tering Arms Hospitalerum or plasma albumin/globulin mass ratioOrdered By: Den Ponce on 06-20-2025 Albumin/Globulin [Mass ratio]0.9 {ratio}[facility] Hospitalerum or plasma anion gap determinationOrdered By: Den Ponce on 75-79-8893Lzdsl gap [Moles/Vol]14.0 mmol/LFMercer County Community HospitalHPon 72-00-0518RR Cardiovascular Medicine [facility] SUBJECTIVE Chief Complaint Patient presents [...] follow-up after her recent admission to [facility]. PMHx: SVT, COPD, HFpEF, pulmonary HTN, [...] edema, dizziness/LH, palpitations *She previous saw a stone rubber at [facility]. She would like to transfer her care to [facility]. Discharge summary: Hospital Course: Patient admitted [...] see if supplemental O2 will be a longterm thing. Denies c/o CP, orthopnea, PND, LE [...] Rfl: 3 potassium chlo (more content not included)...[facility] HospitalOffice [facility] 48-15-8631Hmhhum-up [id number] Aleksandr Sanchez 1940 F Date Provider Department Center 06/05/2025 ARTEM JIM HIEN Dumont Family History Family Status - Relation Status Age at Mother Father Level of Service:25012 SD OFFICE/OUTPATIENT ESTABLISHED LOW MDM 20 MIN Reason for Visit and Comments: Follow-up [615698] - Patient is here today for a routine 3 month follow up. Patient states she feels wore out and don't have an appetite. Patient states if she gets herself worked up she gets chest pain, and off balance. Hypertension [316307] Chest Pain [749952] Hyperlipidemia [182] PSVT [Other][facility]Office [facility]25 Follow-up [id number] Aleksandr Sanchez 1940 F Date Provider Department Center 04/08/2025 BAUTISTA VALDEZ HIEN Dumont Family History Family Status - Relation Status Age at Mother Father Level of Service:81227 SD OFFICE/OUTPATIENT NEW MODERATE MDM 45 MINUTESNormal [facility]36on 10-60-804559UuaaspvSKYE Trinidad MA Please let her know her labs look good, continue current dose of lasix. She is to let us know if she is having any signs of hanging on to extra fluid like increased leg swelling, SOB, weight gain,etc. Thanks! Advised patient of Mariam's findings and recommendations. Patient verbalized understanding and agreed with the plan of care.NormalMain Campus Medical Center36on 73-01-691322Mafbzfvca lab results from 03/31/2025: SKYE Trinidad MA Please let her know her labs look good, continue current dose of lasix. She is to let us know if she is having any signs of hanging on to extra fluid like increased leg swelling, SOB, weight gain,etc. Thanks!NormalMain Campus Medical CenterGlomerular filtration rate (GFR) estimation in non- AmericanOrdered By: Artem Marroquin on 93-14-4887LWH/1.73 sq M.predicted among non-blacks MDRD (S/P/Bld) [Vol rate/Area]mL/min/{1.73_m2}>=60 mL/min/1.73m 2 [facility] CenterNo Panel InformationOrdered By: Artem Marroquin on 75-36-33106402.0 pg/mL<=1800.0[facility]35.4FMercer County Community Hospital29.0 mg/dLHigh7.0-18.0[facility] 10.0 mg/dL8.5-10.1FMercer County Community Hospital104 mmol/K74-638XinloxyzuUniversity Hospitals Conneaut Medical Center37.6 mmol/LHigh21.0-32.0[facility] 0.82 mg/dL0.55-1.02[facility]>60>=60 mL/min/1.73m 2 [facility]84 mg/uF23-786WqefifgdrUniversity Hospitals Conneaut Medical Center 3.9 mmol/L3.5-5.1FMercer County Community Hospital143 mmol/B209-338XhrmzvhdmSheltering Arms Hospitalerum or plasma anion gap determinationOrdered By: Artem Marroquin on 56-94-1601Odjon gap [Moles/Vol]5.3 mmol/LFMercer County Community Hospital37on *Increase torsemide to 20mg daily x1 week then reduce to alternating days of 10mg and 20mg daily. *Have follow-up labs 03/31/2025 *We will increase metoprolol to try to help with your fluctuating heart rate, will increase this to 50mg twice dailyNormalUniversMarion Hospital Office Visiton 11-31-9727Csysyy-up [id number] Aleksandr Sanchez 1940 F Date Provider Department Center 03/20/2025 166-ARTEM MARROQUIN HIEN Serrato [facility] Family History Family Status - Relation Status Age at Mother Father Level of Service:29437 SD OFFICE/OUTPATIENT ESTABLISHED MOD MDM 30 MIN Reason for Visit and Comments: Congestive Heart Failure [127] Pulmonary Hypertension [818]NormalUnSt. John of God HospitalOrders Only on 12-81-9328Mdkmqu [id number] Aleksandr Sanchez 1940 Provider Department Center 03/18/2025 [id number], HISTORICAL CARD Rojelio Hos Family History Family Status - Relation Status Age at Mother Father DeceasedNormalUniversMarion HospitalBasophils Auto (Bld) [#/Vol]Ordered By: Iam Jiménez on 17-94-0287Nxaopgrea (Bld) [#/Vol]0.1 10 3/uL 0.0-0.1FMercer County Community HospitalBasophils/100 WBC Auto (Bld)Ordered By: Iam Jiménez on 13-98-0810Srxpidecr/100 WBC (Bld)0.5 %0.2-2.0[facility] CenterEosinophils/100 WBC Auto (Bld)Ordered By: Iam Jiménez on 49-50-4072Rgxawucqynu/100 WBC (Bld)0.5 %Low0.9-7.0[facility] CenterErythrocyte distribution width Auto (RBC) [Ratio]Ordered By: Iam Jiménez on 62-97-5813Fgwzqfdhsek distribution width (RBC) [Ratio]16.2 %High11.0-15.0 [facility] CenterEstimated glomerular filtration rate (GFR) non- AmericanOrdered By: Iam Jiménez on 23-31-8370FOI/1.73 sq M.predicted among non-blacks MDRD (S/P/Bld) [Vol rate/Area]mL/min/{1.73_m2}>=60 mL/min/1.73m 2FMercer County Community HospitalGlobulin Calc (S) [Mass/Vol]Ordered By: Iam Jiménez on 27-71-7625Garqclfs (S) [Mass/Vol]3.8 g/dLUniversity Hospitals Conneaut Medical CenterHematocrit Auto (Bld) [Volume fraction]Ordered By: Iam Jiménez on 68-64-6129Gpgmxpjtpn (Bld) [Volume fraction]38.5 %36.0-48.0[facility] CenterHemoglobin [Mass/volume] in BloodOrdered By: Iam Jiménez on 68-91-8253Cnhbyzhyaw (Bld) [Mass/Vol]12.4 g/dL12.0-16.0[facility] CenterLeukocytes [#/volume] corrected for nucleated erythrocytes in Blood by Automated counOrdered By: Iam Jiménez on 51-48-4546AZW corrected for nucl RBC Auto (Bld) [#/Vol]11.5 10 3/uLHigh4.0-11.0[facility] Medical CenterLymphocytes Auto (Bld) [#/Vol]Ordered By: Iam Jiménez on 02-27-2025 Lymphocytes (Bld) [#/Vol]2.6 10 3/uL1.2-3.8[facility] Lymphocytes/100 WBC Auto (Bld)Ordered By: Iam Jiménez on 02-27-2025 Lymphocytes/100 WBC (Bld)22.6 %20.5-60.0[facility] Auto (RBC) [Entitic mass]Ordered By: Iam Jiménez on 58-33-8197MMK (RBC) [Entitic mass]31.4 pg26.7-34.0[facility] CenterMCHC Auto (RBC) [Mass/Vol]Ordered By: Iam Jiménez on 43-02-9725OYHU (RBC) [Mass/Vol]32.2 g/dL 29.9-35.2FMercer County Community HospitalMCV Auto (RBC) [Entitic vol]Ordered By: Iam Jiménez on 18-49-4250VQZ (RBC) [Entitic vol]97.5 fL81.0-99.0[facility] CenterMonocytes Auto (Bld) [#/Vol]Ordered By: Iam Jiménez on 58-16-6535Ibojrdlax (Bld) [#/Vol]0.9 10 3/uLHigh0.3-0.8[facility] CenterMonocytes/100 WBC Auto (Bld)Ordered By: Iam Jiménez on 30-10-1341Kkzjbpoyx/100 WBC (Bld)8.0 %1.7-12.0[facility] Neutrophils Auto (Bld) [#/Vol]Ordered By: Iam Jiménez on 19-61-4889Alzxkagwwnj (Bld) [#/Vol]7.8 10 3/uLHigh1.4-6.5FMercer County Community Hospital Neutrophils/100 WBC Auto (Bld)Ordered By: Iam Jiménez on 02-27-2025 Neutrophils/100 WBC (Bld)68.2 %43.0-75.0[facility] CenterNo Panel InformationOrdered By: Iam Jiménez on 53.2 g/dLLow3.4-5.0 [facility]0.1 10 3/uL0.0-0.7FMercer County Community Hospital74 U/M27-702ZcwbehuqsUniversity Hospitals Conneaut Medical Center23 U/G47-23SnizrujqiUniversity Hospitals Conneaut Medical Center22 U/E24-34TkyykdgqhUniversity Hospitals Conneaut Medical Center32.5FMercer County Community Hospital0.02 10 3/uL0.00-0.03[facility] 25.0 mg/dLHigh7.0-18.0[facility]0.2 %0.0-0.5FMercer County Community Hospital10.0 mg/dL8.5-10.1FMercer County Community Hospital107 mmol/X52-590YiqzayolhUniversity Hospitals Conneaut Medical Center34.3 mmol/LHigh21.0-32.0[facility]0.77 mg/dL0.55-1.02[facility]>60 >=60 mL/min/1.73m 2FMercer County Community Hospital81 mg/wL25-938DjrwvllomUniversity Hospitals Conneaut Medical Center3.7 mmol/L3.5-5.1FMercer County Community Hospital148 mmol/YIszw006-054OnmbchmpeUniversity Hospitals Conneaut Medical Center0.3 mg/dL0.2-1.0[facility]7.0 g/dL6.4-8.2FMercer County Community HospitalOffice Visiton 19-17-9392Slzmkp-up [id number] Aleksandr Sanchez 1940 F Date Provider Department Center 02/27/2025 271-IAM JIMÉNEZ Hos Family History Family Status - Relation Status Age at Mother Father Level of Service:47530 SD OFFICE/OUTPATIENT ESTABLISHED MOD MDM 30 [facility] CenterOrders Onlyon 55-11-6065[place] [id number] Aleksandr Sanchez 1940 F Date Provider Department Center 02/27/2025 [id number], HISTORICAL GAVINO CARD Rojelio Hos Family History Family Status - Relation Status Age at Mother Father DeceasedNormalUniDelaware County HospitalPlatelet mean volume Auto (Bld) [Entitic vol]Ordered By: Iam Jiménez on 02-78-9102Ivtzdjmq mean volume (Bld) [Entitic vol]9.8 fL9.5-13.5FMercer County Community Hospital Platelets Auto (Bld) [#/Vol]Ordered By: Iam Jiménez on 05-43-5781Aqfhvgeos (Bld) [#/Vol]389 10 3/hJ309-270PgycwpuwxUniversity Hospitals Conneaut Medical CenterRBC Auto (Bld) [#/Vol]Ordered By: Iam Jiménez on 85-98-0384XYG (Bld) [#/Vol]3.95 10 6/uLLow 4.20-5.40Sheltering [facility] Hospitalerum or plasma albumin/globulin mass ratioOrdered By: Iam Jiménez on 66-54-9332Espgvfz/Globulin [Mass ratio]0.8 {ratio}[facility] Hospitalerum or plasma anion gap determination Ordered By: Iam Jiménez on 88-55-8523Ncsao gap [Moles/Vol]10.4 mmol/LFMercer County Community HospitalBasophils Auto (Bld) [#/Vol]Ordered By: Sheldon Xie on 46-50-4604Efzfehxgl (Bld) [#/Vol]0.1 10 3/uL0.0-0.1FMercer County Community HospitalBasophils/100 WBC Auto (Bld)Ordered By: Sheldon Xie on 02-13-2025 Basophils/100 WBC (Bld)0.5 %0.2-2.0[facility] CenterCholesterol in LDL Calc [Mass/Vol]Ordered By: Sheldon Xie on 50-22-7928Ybrhkfugkcv in LDL [Mass/Vol]91.0 mg/dLUniversity Hospitals Conneaut Medical CenterCholesterol in VLDL Calc [Mass/Vol]Ordered By: Sheldon Xie on 59-84-3880Ddrnndrpmza in VLDL [Mass/Vol]23.6 mg/dLUniversity Hospitals Conneaut Medical CenterEosinophils/100 WBC Auto (Bld)Ordered By: Sheldon Xie on 22-27-7388Ijuxfflvnop/100 WBC (Bld)2.5 %0.9-7.0[facility] Medical CenterErythrocyte distribution width Auto (RBC) [Ratio]Ordered By: Sheldon Xie on 28-25-3535Pmhvqgzigdl distribution width (RBC) [Ratio]15.3 %High 11.0-15.0[facility] CenterEstimated glomerular filtration rate (GFR) non- AmericanOrdered By: Sheldon Xie on 67-45-9906VTV/1.73 sq M.predicted among non-blacks MDRD (S/P/Bld) [Vol rate/Area]mL/min/{1.73_m2}>=60 mL/min/1.73m 2FMercer County Community HospitalGlobulin Calc (S) [Mass/Vol] Ordered By: Sheldon Xie on 15-65-5547Aamiwknd (S) [Mass/Vol]3.7 g/dLUniversity Hospitals Conneaut Medical CenterHematocrit Auto (Bld) [Volume fraction]Ordered By: Sheldon Xie on 21-77-4122Lrnknjsdkx (Bld) [Volume fraction]37.2 %36.0-48.0[facility] Medical CenterHemoglobin [Mass/volume] in BloodOrdered By: Sheldon Xie on 34-66-7901Pzgtgnmsyf (Bld) [Mass/Vol]12.2 g/dL12.0-16.0[facility] Medical CenterLeukocytes [#/volume] corrected for nucleated erythrocytes in Blood by Automated counOrdered By: Sheldon Xie on 82-52-7517SJP corrected for nucl RBC Auto (Bld) [#/Vol]11.4 10 3/uLHigh4.0-11.0[facility] Medical CenterLymphocytes Auto (Bld) [#/Vol]Ordered By: Sheldon Xie on 02-13-2025 Lymphocytes (Bld) [#/Vol]2.0 10 3/uL1.2-3.8[facility] Lymphocytes/100 WBC Auto (Bld)Ordered By: Sheldon Xie on 02-13-2025 Lymphocytes/100 WBC (Bld)17.2 %Low20.5-60.0[facility] Auto (RBC) [Entitic mass]Ordered By: Sheldon Xie on 83-16-5555LFV (RBC) [Entitic mass]31.3 pg26.7-34.0[facility]. [facility] HospitalHC Auto (RBC) [Mass/Vol] Ordered By: Sheldon Xie on 01-77-2963OOVI (RBC) [Mass/Vol]32.8 g/dL29.9-35.2 [facility] CenterMCV Auto (RBC) [Entitic vol]Ordered By: Sheldon Xie on 06-13-7905RES (RBC) [Entitic vol]95.4 fL81.0-99.0[facility] CenterMonocytes Auto (Bld) [#/Vol]Ordered By: Sheldon Xie on 02-13-2025 Monocytes (Bld) [#/Vol]0.8 10 3/uL0.3-0.8[facility] Monocytes/100 WBC Auto (Bld)Ordered By: Sheldon Xie on 35-42-8030Ozfgxlpbp/100 WBC (Bld)6.7 %1.7-12.0[facility] Medical CenterNeutrophils Auto (Bld) [#/Vol]Ordered By: Sheldon Xie on 91-64-2988Chdlysvxxfn (Bld) [#/Vol]8.3 10 3/uL High1.4-6.5FMercer County Community HospitalNeutrophils/100 WBC Auto (Bld) Ordered By: Sheldon Xie on 77-13-1430Hcwydakshnu/100 WBC (Bld)72.7 %43.0-75.0 [facility] CenterNo Panel InformationOrdered By: Sheldon Xie on .400 u[iU]/mL0.358-3.740[facility]181 mg/dL <=200[facility]67 mg/eVRsdc38-18FgkkjunxgUniversity Hospitals Conneaut Medical Center2.8 g/dLLow3.4-5.0[facility]0.3 10 3/uL 0.0-0.7FMercer County Community Hospital67 U/O62-898VkjmrjakxUniversity Hospitals Conneaut Medical Center118 mg/dL<=150[facility]33 U/S86-74JxkwwkceiUniversity Hospitals Conneaut Medical Center26 U/F68-86LuomptwntUniversity Hospitals Conneaut Medical Center36.0[facility]0.04 10 3/uLHigh0.00-0.03[facility]32.0 mg/dLHigh7.0-18.0[facility]0.4 %0.0-0.5 [facility]9.4 mg/dL8.5-10.1FMercer County Community Hospital103 mmol/S87-977BtmoeqqajUniversity Hospitals Conneaut Medical Center35.3 mmol/LHigh21.0-32.0 [facility]0.89 mg/dL0.55-1.02[facility]>60>=60 mL/min/1.73m 2FMercer County Community Hospital80 mg/vB20-041 [facility]3.8 mmol/L3.5-5.1FMercer County Community Hospital143 mmol/N056-556JkcbtrbshUniversity Hospitals Conneaut Medical Center0.4 mg/dL0.2-1.0 [facility]6.5 g/dL6.4-8.2FMercer County Community HospitalPlatelet mean volume Auto (Bld) [Entitic vol]Ordered By: Sheldon Xie on 60-20-4334Jblpaach mean volume (Bld) [Entitic vol]9.7 fL9.5-13.5FMercer County Community HospitalPlatelets Auto (Bld) [#/Vol]Ordered By: Sheldon Xie on 30-23-2235Nyxeynome (Bld) [#/Vol]305 10 3/qS685-006EwppvfwflUniversity Hospitals Conneaut Medical CenterRBC Auto (Bld) [#/Vol]Ordered By: Sheldon Xie on 68-65-3474URD (Bld) [#/Vol]3.90 10 6/uLLow4.20-5.40S[facility] Hospitalerum or plasma albumin/globulin mass ratioOrdered By: Sheldon Xie on 98-32-6985Vqvekqi/Globulin [Mass ratio]0.8 {ratio}[facility] Hospitalerum or plasma anion gap determinationOrdered By: Sheldon Xie on 81-11-0181Fpuiu gap [Moles/Vol]8.5 mmol/LFTrinity Health System East Campuserum or plasma total cholesterol/high density lipoprotein (HDL) cholesterol mass ratOrdered By: Sheldon Xie on 08-20-9966Wyfzxvhhaec.total/Cholesterol in HDL [Mass ratio]2.7 {ratio}[facility] CenterOffice Visiton 27-34-4957Gledog-up [id number] Aleksandr Sanchez 1940 F Date Provider Department Center 02/06/2025 ARTEM JIM Family History Family Status - Relation Status Age at Mother Father Level of Service:43398 [place] OFFICE/OUTPATIENT ESTABLISHED LOW MDM 20 MIN Reason for Visit and Comments: Hospital Follow-up [832]NormalMain Campus Medical CenterAbstracton [id number] Horacio Sanchezjignesh Ortiz 1940 F Date Provider Department Center 01/31/2025 SHELDON ONTIVEROS CARD Rojelio Hos No family history on fileNormalUniversity Aultman Orrville HospitalBasophils Auto (Bld) [#/Vol]on 19-78-4859Qreukpbhu (Bld) [#/Vol]0.0 10 3/uL0.0-0.1FMercer County [facility] HospitalBas[facility]100 WBC Auto (Bld)on 51-34-8399Rzahwpika/100 WBC (Bld)0.1 %Low0.2-2.0[facility] CenterEosinophils/100 WBC Auto (Bld)on 60-39-9239Fcnryiolkej/100 WBC (Bld)0.6 %Low0.9-7.0[facility] CenterErythrocyte distribution width Auto (RBC) [Ratio]on 95-05-4902Xvvkaqhfite distribution width (RBC) [Ratio]13.5 %11.0-15.0[facility] CenterEstimated glomerular filtration rate (GFR) non- Americanon 95-56-0178VXS/1.73 sq M.predicted among non-blacks MDRD (S/P/Bld) [Vol rate/Area]55 mL/min/{1.73_m2}Low>=60 mL/min/1.73m 2FMercer County Community HospitalHematocrit Auto (Bld) [Volume fraction]on 16-43-7019Mnucvvdncs (Bld) [Volume fraction]36.8 %36.0-48.0[facility] Hemoglobin [Mass/volume] in Bloodon 17-56-8163Mrqttoycto (Bld) [Mass/Vol]12.4 g/dL12.0-16.0[facility] CenterLeukocytes [#/volume] corrected for nucleated erythrocytes in Blood by Automated counon 09-34-9641TXN corrected for nucl RBC Auto (Bld) [#/Vol]16.3 10 3/uLHigh4.0-11.0[facility] CenterLymphocytes Auto (Bld) [#/Vol]on 85-77-0567Bbkhyvjtuqw (Bld) [#/Vol]2.7 10 3/uL1.2-3.8[facility] CenterLymphocytes/100 WBC Auto (Bld)on 59-54-6824Bfvyegggjdm/100 WBC (Bld)16.5 %Low20.5-60.0[facility] CenterMCH Auto (RBC) [Entitic mass]on 53-42-9935TTX (RBC) [Entitic mass]30.8 pg26.7-34.0[facility] CenterMCHC Auto (RBC) [Mass/Vol]on 74-18-2404DRBM (RBC) [Mass/Vol]33.7 g/dL29.9-35.2FMercer County Community HospitalMCV Auto (RBC) [Entitic vol]on 23-43-4871GLQ (RBC) [Entitic vol] 91.3 fL81.0-99.0[facility] CenterMonocytes Auto (Bld) [#/Vol]on 15-87-3327Pmfwaduzv (Bld) [#/Vol]1.1 10 3/uLHigh0.3-0.8[facility] CenterMonocytes/100 WBC Auto (Bld)on 88-89-0818Plpluzwvs/100 WBC (Bld) 6.7 %1.7-12.0[facility] CenterNeutrophils Auto (Bld) [#/Vol]on 97-58-6960Fwempsethpn (Bld) [#/Vol]12.3 10 3/uLHigh1.4-6.5FMercer County Community HospitalNeutrophils/100 WBC Auto (Bld)on 45-33-1958Uuawiateiwm/100 WBC (Bld)75.2 %High43.0-75.0[facility] CenterNo Panel Informationon 51.4 ng/mL0.9-2.0[facility]1601.0 pg/mL<=1800.0 [facility]128.4 pg/mLCritically high4.0-51.3FMercer County [facility] Hospital49.5FMercer [facility]48.0 mg/dLHigh 7.0-18.0[facility]0.1 10 3/uL0.0-0.7FMercer County [facility] Hospital9.5 mg/dL8.5-10.1FMercer County [facility] Hospital100 mmol/L98-107 [facility]37.1 mmol/LHigh21.0-32.0[facility]0.97 mg/dL0.55-1.02[facility]0.14 10 3/uL High0.00-0.03[facility]>60>=60 mL/min/1.73m 2FMercer County Community Hospital0.9 %High0.0-0.5FMercer County [facility] Hospital89 mg/dL 74-106[facility]3.9 mmol/L3.5-5.1FMercer County [facility] Hospital141 mmol/F618-196XupyunbjnUniversity Hospitals Conneaut Medical CenterPlatelet mean volume Auto (Bld) [Entitic vol]on 90-41-0071Zqllfqql mean volume (Bld) [Entitic vol]9.6 fL9.5-13.5FMercer County Community HospitalPlatelets Auto (Bld) [#/Vol] on 20-93-0055Roljuqmmx (Bld) [#/Vol]438 10 3/lM874-513DdczicodiUniversity Hospitals Conneaut Medical CenterRBC Auto (Bld) [#/Vol]on 60-68-7923CIA (Bld) [#/Vol]4.03 10 6/uLLow 4.20-5.40[facility] Hospitalerum or plasma anion gap determinationon 25-01-6837Xvyji gap [Moles/Vol]7.8 mmol/LFMercer County Community HospitalBasophils Auto (Bld) [#/Vol]on 16-75-8802Pnplmvvri (Bld) [#/Vol] 0.0 10 3/uL0.0-0.1FMercer County Community HospitalBasophils/100 WBC Auto (Bld) on 71-27-1150Vvniinztg/100 WBC (Bld)0.2 %0.2-2.0[facility] CenterEosinophils/100 WBC Auto (Bld)on 63-99-9920Efdkcppdtvb/100 WBC (Bld)1.2 % 0.9-7.0[facility] CenterErythrocyte distribution width Auto (RBC) [Ratio]on 11-34-0731Hbbahfjwcrk distribution width (RBC) [Ratio]13.7 % 11.0-15.0[facility] CenterEstimated glomerular filtration rate (GFR) non- Americanon 85-86-4531IHV/1.73 sq M.predicted among non-blacks MDRD (S/P/Bld) [Vol rate/Area]mL/min/{1.73_m2}>=60 mL/min/1.73m 2FMercer County Community HospitalGlobulin Calc (S) [Mass/Vol]on 41-61-3028Wncfpsjf (S) [Mass/Vol]3.9 g/dLUniversity Hospitals Conneaut Medical CenterHematocrit Auto (Bld) [Volume fraction]on 63-05-6545Xfgnweyygc (Bld) [Volume fraction]37.1 %36.0-48.0 [facility] CenterHemoglobin [Mass/volume] in Bloodon 01-30-2025 Hemoglobin (Bld) [Mass/Vol]12.8 g/dL12.0-16.0[facility] Leukocytes [#/volume] corrected for nucleated erythrocytes in Blood by Automated counon 12-34-1718GAL corrected for nucl RBC Auto (Bld) [#/Vol]16.1 10 3/uLHigh 4.0-11.0[facility] CenterLymphocytes Auto (Bld) [#/Vol]on 74-76-0029Xoeczlxacui (Bld) [#/Vol]3.1 10 3/uL1.2-3.8[facility] CenterLymphocytes/100 WBC Auto (Bld)on 69-28-5490Nkmnqkydwwo/100 WBC (Bld)19.2 % Low20.5-60.0[facility] CenterMCH Auto (RBC) [Entitic mass]on 32-05-8420AJO (RBC) [Entitic mass]31.8 pg26.7-34.0[facility] CenterMCHC Auto (RBC) [Mass/Vol]on 46-08-0454YFQR (RBC) [Mass/Vol]34.5 g/dL 29.9-35.2FMercer County Community HospitalMCV Auto (RBC) [Entitic vol]on 03-73-0567WJK (RBC) [Entitic vol]92.1 fL81.0-99.0[facility] CenterMonocytes Auto (Bld) [#/Vol]on 35-57-7938Dtykzwvrm (Bld) [#/Vol]1.1 10 3/uLHigh0.3-0.8[facility] CenterMonocytes/100 WBC Auto (Bld)on 03-27-2222Rqimnsuhs/100 WBC (Bld)6.9 %1.7-12.0[facility] Neutrophils Auto (Bld) [#/Vol]on 53-00-1221Xgfglteneiy (Bld) [#/Vol]11.6 10 3/uL High1.4-6.5FMercer County Community HospitalNeutrophils/100 WBC Auto (Bld)on 54-12-3719Psjqsiudozs/100 WBC (Bld)71.7 %43.0-75.0[facility] CenterNo Panel Informationon 50-56-60607460.0 pg/mLCritically high<=1800.0 [facility]280.1 pg/mLCritically high4.0-51.3FMercer County Community Hospital1.3 ng/mL0.9-2.0[facility]2.4 g/dL Low3.4-5.0[facility]0.2 10 3/uL0.0-0.7FMercer County [facility] Hospital64 U/T88-861IlqbjtokqUniversity Hospitals Conneaut Medical Center39 U/L37-35YwiyvbiiaUniversity Hospitals Conneaut Medical Center23 U/N89-28GcqvybzvjUniversity Hospitals Conneaut Medical Center45.8[facility]0.13 10 3/uLHigh0.00-0.03[facility]38.0 mg/dLHigh7.0-18.0[facility]0.8 %High0.0-0.5 [facility]9.3 mg/dL8.5-10.1FMercer County Community Hospital101 mmol/G79-761FhjtuudqxUniversity Hospitals Conneaut Medical Center35.4 mmol/LHigh21.0-32.0 [facility]0.83 mg/dL0.55-1.02[facility]>60>=60 mL/min/1.73m 2FMercer County [facility] Hospital90 mg/vI56-989 [facility]3.7 mmol/L3.5-5.1FMercer County [facility] Hospital144 mmol/S826-307LwetfxlmcUniversity Hospitals Conneaut Medical Center0.5 mg/dL0.2-1.0 [facility]6.3 g/dLLow6.4-8.2FMercer County Community HospitalPlatelet mean volume Auto (Bld) [Entitic vol]on 14-94-4314Irmfeyln mean volume (Bld) [Entitic vol]10.1 fL9.5-13.5FMercer County Community Hospital Platelets Auto (Bld) [#/Vol]on 53-90-1099Ranuoedfj (Bld) [#/Vol]408 10 3/uL 150-450[facility] CenterRBC Auto (Bld) [#/Vol]on 03-02-6778KAC (Bld) [#/Vol]4.03 10 6/uLLow4.20-5.40[facility] Hospitalerum or plasma albumin/globulin mass ratioon 62-19-7293Wlyjsou/Globulin [Mass ratio]0.6 {ratio}[facility] Hospitalerum or plasma anion gap determination on 75-59-3479Uqqsd gap [Moles/Vol]11.3 mmol/LFMercer County Community Hospital Basophils Auto (Bld) [#/Vol]on 16-44-5379Vgwapjntm (Bld) [#/Vol]0.0 10 3/uL 0.0-0.1FMercer County Community HospitalBasophils/100 WBC Auto (Bld)on 06-79-2045Iuujtmmhv/100 WBC (Bld)0.1 %Low0.2-2.0[facility] CenterEosinophils/100 WBC Auto (Bld)on 51-38-4692Rqdbilahsxr/100 WBC (Bld)1.7 % 0.9-7.0[facility] CenterErythrocyte distribution width Auto (RBC) [Ratio]on 10-17-6933Fsdtihahsox distribution width (RBC) [Ratio]13.7 % 11.0-15.0[facility] CenterEstimated glomerular filtration rate (GFR) non- Americanon 57-91-1956KXI/1.73 sq M.predicted among non-blacks MDRD (S/P/Bld) [Vol rate/Area]mL/min/{1.73_m2}>=60 mL/min/1.73m 2FMercer County Community HospitalGlobulin Calc (S) [Mass/Vol]on 28-96-7609Xsgrchsk (S) [Mass/Vol]3.7 g/dLUniversity Hospitals Conneaut Medical CenterHematocrit Auto (Bld) [Volume fraction]on 39-72-7262Ppmcfudkph (Bld) [Volume fraction]37.8 %36.0-48.0 [facility] CenterHemoglobin [Mass/volume] in Bloodon 01-29-2025 Hemoglobin (Bld) [Mass/Vol]12.5 g/dL12.0-16.0[facility] Leukocytes [#/volume] corrected for nucleated erythrocytes in Blood by Automated counon 12-18-4732RBX corrected for nucl RBC Auto (Bld) [#/Vol]12.0 10 3/uLHigh 4.0-11.0[facility] CenterLymphocytes Auto (Bld) [#/Vol]on 36-02-2919Geblvtmypjg (Bld) [#/Vol]2.5 10 3/uL1.2-3.8[facility] CenterLymphocytes/100 WBC Auto (Bld)on 39-59-4949Gcreoaqhtzw/100 WBC (Bld)20.6 % 20.5-60.0[facility]H Auto (RBC) [Entitic mass]on 05-13-5361CTQ (RBC) [Entitic mass]30.9 pg26.7-34.0[facility] CenterMCHC Auto (RBC) [Mass/Vol]on 74-08-8311TBYG (RBC) [Mass/Vol]33.1 g/dL 29.9-35.2FMercer County Community HospitalMCV Auto (RBC) [Entitic vol]on 39-79-3719DJD (RBC) [Entitic vol]93.3 fL81.0-99.0[facility] CenterMonocytes Auto (Bld) [#/Vol]on 47-55-4722Qyczzzuxu (Bld) [#/Vol]1.1 10 3/uLHigh0.3-0.8[facility] CenterMonocytes/100 WBC Auto (Bld)on 12-94-3726Esqjkygrg/100 WBC (Bld)9.2 %1.7-12.0[facility] Neutrophils Auto (Bld) [#/Vol]on 81-38-7682Gxqorzbpmpz (Bld) [#/Vol]8.1 10 3/uL High1.4-6.5FMercer County Community HospitalNeutrophils/100 WBC Auto (Bld)on 25-16-8762Ozxcyykjmwh/100 WBC (Bld)67.2 %43.0-75.0[facility] CenterNo Panel Informationon 67-20-2435995.6 pg/mLCritically high4.0-51.3 [facility]4576.0 pg/mLCritically high<=1800.0[facility]2.3 g/dLLow3.4-5.0[facility]0.2 10 3/uL0.0-0.7FMercer County [facility] Hospital67 U/N87-164AbnshgautUniversity Hospitals Conneaut Medical Center34 U/G94-37YramogeueUniversity Hospitals Conneaut Medical Center19 U/I44-32VpghnxuqbUniversity Hospitals Conneaut Medical Center48.6FMercer County [facility] Hospital0.14 10 3/uLHigh 0.00-0.03[facility]35.0 mg/dLHigh7.0-18.0[facility]1.2 %High0.0-0.5FMercer County [facility] Hospital9.3 mg/dL8.5-10.1FMercer County [facility] Hospital103 mmol/V32-698JxjmhgjojUniversity Hospitals Conneaut Medical Center37.0 mmol/LHigh21.0-32.0[facility]0.72 mg/dL0.55-1.02[facility]>60>=60 mL/min/1.73m 2FMercer County [facility] Hospital88 mg/kS15-405SxdcvlrzjUniversity Hospitals Conneaut Medical Center3.6 mmol/L 3.5-5.1FMercer County [facility] Hospital145 mmol/J840-777TkztgzvpeUniversity Hospitals Conneaut Medical Center0.5 mg/dL0.2-1.0[facility]6.0 g/dLLow 6.4-8.2FMercer County Community HospitalPlatelet mean volume Auto (Bld) [Entitic vol]on 28-72-0472Iuajxuez mean volume (Bld) [Entitic vol]10.0 fL9.5-13.5 [facility] CenterPlatelets Auto (Bld) [#/Vol]on 01-29-2025 Platelets (Bld) [#/Vol]348 10 3/iV618-044JpymtbdbmUniversity Hospitals Conneaut Medical CenterRBC Auto (Bld) [#/Vol]on 41-94-5899IJS (Bld) [#/Vol]4.05 10 6/uLLow4.20-5.40 [facility] Hospitalerum or plasma albumin/globulin mass ratioon 35-28-6042Umwgfhb/Globulin [Mass ratio]0.6 {ratio}[facility] Hospitalerum or plasma anion gap determinationon 40-45-7480Jcira gap [Moles/Vol] 8.6 mmol/LFMercer County Community HospitalBasophils Auto (Bld) [#/Vol]on 13-67-8871Vycrkuxje (Bld) [#/Vol]0.0 10 3/uL0.0-0.1FMercer County Community HospitalBasophils/100 WBC Auto (Bld)on 59-53-5404Hpdcmgotk/100 WBC (Bld)0.2 % 0.2-2.0[facility] CenterEosinophils/100 WBC Auto (Bld)on 35-33-9213Cbhrzpgdqbw/100 WBC (Bld)0.5 %Low0.9-7.0[facility] CenterErythrocyte distribution width Auto (RBC) [Ratio]on 70-21-9658Vixqenfvyng distribution width (RBC) [Ratio]13.7 %11.0-15.0[facility] Estimated glomerular filtration rate (GFR) non- Americanon 01-28-2025 GFR/1.73 sq M.predicted among non-blacks MDRD (S/P/Bld) [Vol rate/Area] mL/min/{1.73_m2}>=60 mL/min/1.73m 2FMercer County Community HospitalGlobulin Calc (S) [Mass/Vol]on 08-59-0555Dzaxuxnj (S) [Mass/Vol]3.7 g/dLUniversity Hospitals Conneaut Medical CenterHematocrit Auto (Bld) [Volume fraction]on 01-28-2025 Hematocrit (Bld) [Volume fraction]38.9 %36.0-48.0[facility] CenterHemoglobin [Mass/volume] in Bloodon 18-46-1671Zzrpknljex (Bld) [Mass/Vol] 12.8 g/dL12.0-16.0[facility] CenterLeukocytes [#/volume] corrected for nucleated erythrocytes in Blood by Automated counon 29-45-1961WJH corrected for nucl RBC Auto (Bld) [#/Vol]12.2 10 3/uLHigh4.0-11.0[facility] CenterLymphocytes Auto (Bld) [#/Vol]on 81-51-0176Wxlptrarrdk (Bld) [#/Vol]1.9 10 3/uL1.2-3.8[facility] CenterLymphocytes/100 WBC Auto (Bld)on 87-52-6387Bmeprumpotb/100 WBC (Bld)15.8 %Low20.5-60.0[facility] CenterMCH Auto (RBC) [Entitic mass]on 20-60-9560XSU (RBC) [Entitic mass]30.9 pg26.7-34.0[facility] CenterMCHC Auto (RBC) [Mass/Vol]on 22-61-5404YHBF (RBC) [Mass/Vol]32.9 g/dL29.9-35.2FMercer County Community HospitalMCV Auto (RBC) [Entitic vol]on 03-74-4140ADC (RBC) [Entitic vol] 94.0 fL81.0-99.0[facility] CenterMonocytes Auto (Bld) [#/Vol]on 81-81-0409Kkxqjbfqi (Bld) [#/Vol]1.3 10 3/uLHigh0.3-0.8[facility] CenterMonocytes/100 WBC Auto (Bld)on 44-84-0721Miphvfntc/100 WBC (Bld) 10.8 %1.7-12.0[facility] CenterNeutrophils Auto (Bld) [#/Vol]on 29-50-7509Gnuqtjjayfe (Bld) [#/Vol]8.7 10 3/uLHigh1.4-6.5FMercer County Community HospitalNeutrophils/100 WBC Auto (Bld)on 07-63-4885Ohombtqbecv/100 WBC (Bld)71.8 %43.0-75.0[facility] CenterNo Panel Informationon 43-01-77830055.0 pg/mLCritically high<=1800.0[facility] 870.6 pg/mLCritically high4.0-51.3FMercer County [facility] Hospital2.3 g/dLLow 3.4-5.0[facility]0.1 10 3/uL0.0-0.7FMercer County [facility] Hospital65 U/U32-817PtqoblfpjUniversity Hospitals [facility]aut Medical Center42 U/U41-61NahyyzlddUniversity Hospitals Conneaut Medical Center30 U/P28-73VkzalkmcvUniversity Hospitals Conneaut Medical Center45.6FMercer County [facility] Hospital0.11 10 3/uLHigh0.00-0.03[facility]36.0 mg/dLHigh7.0-18.0[facility]0.9 %High0.0-0.5 [facility]9.1 mg/dL8.5-10.1FMercer County [facility] Hospital106 mmol/I41-731EagnfczboUniversity Hospitals Conneaut Medical Center35.1 mmol/LHigh21.0-32.0 [facility]0.79 mg/dL0.55-1.02[facility]>60>=60 mL/min/1.73m 2FMercer County [facility] Hospital80 mg/bG55-430 [facility]3.8 mmol/L3.5-5.1FMercer County [facility] Hospital147 mmol/STrsu132-009NkroonomaUniversity Hospitals Conneaut Medical Center0.4 mg/dL0.2-1.0 [facility]6.0 g/dLLow6.4-8.2FMercer County Community HospitalPlatelet mean volume Auto (Bld) [Entitic vol]on 65-46-6367Fzydmewj mean volume (Bld) [Entitic vol]10.3 fL9.5-13.5FMercer County [facility] Hospital Platelets Auto (Bld) [#/Vol]on 95-47-2921Agppnivtd (Bld) [#/Vol]312 10 3/uL 150-450[facility] CenterRBC Auto (Bld) [#/Vol]on 93-74-4959NPF (Bld) [#/Vol]4.14 10 6/uLLow4.20-5.40[facility] Hospitalerum or plasma albumin/globulin mass ratioon 17-92-0270Mctjsyl/Globulin [Mass ratio]0.6 {ratio}[facility] Hospitalerum or plasma anion gap determination on 75-00-9234Kgvrh gap [Moles/Vol]9.7 mmol/LFMercer County Community Hospital Basophils Auto (Bld) [#/Vol]on 84-72-3825Qamdheskl (Bld) [#/Vol]0.0 10 3/uL 0.0-0.1FMercer County Community HospitalBasophils/100 WBC Auto (Bld)on 09-70-1216Bsegxznva/100 WBC (Bld)0.1 %Low0.2-2.0[facility] CenterEosinophils/100 WBC Auto (Bld)on 95-11-9997Jjgqnwplxyj/100 WBC (Bld)0.1 % Low0.9-7.0[facility] CenterErythrocyte distribution width Auto (RBC) [Ratio]on 71-35-5476Xgkkiifxzht distribution width (RBC) [Ratio]14.0 % 11.0-15.0[facility] CenterEstimated glomerular filtration rate (GFR) non- Americanon 29-21-3046HUO/1.73 sq M.predicted among non-blacks MDRD (S/P/Bld) [Vol rate/Area]52 mL/min/{1.73_m2}Low>=60 mL/min/1.[address]m [address] [place], [place] [address]Globulin Calc (S) [Mass/Vol]on 09-05-9734Zmzuzsit (S) [Mass/Vol]3.4 g/dLUniversity Hospitals Conneaut Medical CenterHematocrit Auto (Bld) [Volume fraction]on 79-94-0474Zrunfyeyqj (Bld) [Volume fraction]34.3 %Low36.0-48.0 [facility] CenterHemoglobin [Mass/volume] in Bloodon 01-27-2025 Hemoglobin (Bld) [Mass/Vol]11.2 g/dLLow12.0-16.0[facility] CenterLeukocytes [#/volume] corrected for nucleated erythrocytes in Blood by Automated counon 71-86-4319LTC corrected for nucl RBC Auto (Bld) [#/Vol]14.3 10 3/uLHigh4.0-11.0[facility] CenterLymphocytes Auto (Bld) [#/Vol] on 18-99-7725Pqsecfbgnfh (Bld) [#/Vol]1.5 10 3/uL1.2-3.8[facility] CenterLymphocytes/100 WBC Auto (Bld)on 09-40-7591Wioeuqpkmuz/100 WBC (Bld)10.4 %Low20.5-60.0[facility] CenterMCH Auto (RBC) [Entitic mass]on 31-52-0806JZU (RBC) [Entitic mass]31.3 pg26.7-34.0[facility] CenterMCHC Auto (RBC) [Mass/Vol]on 59-67-5717NKYK (RBC) [Mass/Vol]32.7 g/dL29.9-35.2FMercer County Community HospitalMCV Auto (RBC) [Entitic vol]on 64-30-8102SYW (RBC) [Entitic vol]95.8 fL81.0-99.0[facility] CenterMonocytes Auto (Bld) [#/Vol]on 04-37-1969Dgysybjaq (Bld) [#/Vol]1.4 10 3/uLHigh0.3-0.8[facility] CenterMonocytes/100 WBC Auto (Bld)on 28-17-3358Cchpihtrd/100 WBC (Bld)10.0 %1.7-12.0[facility] Neutrophils Auto (Bld) [#/Vol]on 01-49-4681Gtfxjdfdtuv (Bld) [#/Vol]11.2 10 3/uL High1.4-6.5FMercer County Community HospitalNeutrophils/100 WBC Auto (Bld)on 90-64-7508Rvjgxkgmner/100 WBC (Bld)78.9 %High43.0-75.0[facility] CenterNo Panel Informationon 55-15-41266049.6 pg/mLCritically high4.0-51.3 [facility]12686.0 pg/mLCritically high<=1800.0[facility]2.2 g/dLLow3.4-5.0[facility]0.0 10 3/uL0.0-0.7FMercer County [facility] Hospital60 U/C26-021XudmhxfnpUniversity Hospitals Conneaut Medical Center46 U/X90-91OujrftvrbUniversity Hospitals Conneaut [facility] Center40 U/VKdai68-44 [facility]46.1FMercer [facility] Hospital0.07 10 3/uLHigh0.00-0.03[facility]47.0 mg/dLHigh7.0-18.0 [facility]0.5 %0.0-0.5FMercer [facility] 8.5 mg/dL8.5-10.1FMercer County [facility] Hospital107 mmol/K28-487QvavvmgyoUniversity Hospitals [facility] Center32.2 mmol/LHigh21.0-32.0[facility] 1.02 mg/dL0.55-1.02[facility]>60>=60 mL/min/1.73m 2 [facility]87 mg/gL02-258TepixxvnlUniversity Hospitals Conneaut Medical Center 4.4 mmol/L3.5-5.1FMercer County [facility] Hospital146 mmol/PPppt559-787VdxljmkslUniversity Hospitals Conneaut Medical Center0.3 mg/dL0.2-1.0[facility]5.6 g/dLLow6.4-8.2FMercer County Community HospitalPlatelet mean volume Auto (Bld) [Entitic vol]on 93-34-1870Xgqsxebs mean volume (Bld) [Entitic vol]10.4 fL 9.5-13.5FMercer County Community HospitalPlatelets Auto (Bld) [#/Vol]on 89-64-5194Pqctahusc (Bld) [#/Vol]283 10 3/fI864-141KfiqbfjdbUniversity Hospitals Conneaut Medical CenterRBC Auto (Bld) [#/Vol]on 67-79-0753AQG (Bld) [#/Vol]3.58 10 6/uLLow 4.20-5.40[facility] Hospitalerum or plasma albumin/globulin mass ratioon 58-02-1741Djcgwfp/Globulin [Mass ratio]0.6 {ratio}[facility] Hospitalerum or plasma anion gap determinationon 77-56-4683Tgnhp gap [Moles/Vol]11.2 mmol/LFMercer County Community HospitalBasophils Auto (Bld) [#/Vol]on 21-02-7051Iwvpgqjle (Bld) [#/Vol]0.0 10 3/uL0.0-0.1FMercer County Community HospitalBasophils/100 WBC Auto (Bld)on 57-56-7265Nnmzrwrlo/100 WBC (Bld) 0.0 %Low0.2-2.0[facility] CenterEosinophils/100 WBC Auto (Bld)on 34-11-5946Hhqvytwlueq/100 WBC (Bld)0.0 %Low0.9-7.0[facility] CenterErythrocyte distribution width Auto (RBC) [Ratio]on 57-97-8237Hzjxekareah distribution width (RBC) [Ratio]14.1 %11.0-15.0[facility] Estimated glomerular filtration rate (GFR) non- Americanon 01-26-2025 GFR/1.73 sq M.predicted among non-blacks MDRD (S/P/Bld) [Vol rate/Area] mL/min/{1.73_m2}>=60 mL/min/1.73m 2FMercer County Community HospitalGlobulin Calc (S) [Mass/Vol]on 75-53-7128Kxeapmro (S) [Mass/Vol]3.6 g/dLUniversity Hospitals Conneaut Medical CenterHematocrit Auto (Bld) [Volume fraction]on 01-26-2025 Hematocrit (Bld) [Volume fraction]34.7 %Low36.0-48.0[facility] CenterHemoglobin [Mass/volume] in Bloodon 76-72-4233Kvarvnyqxo (Bld) [Mass/Vol] 11.4 g/dLLow12.0-16.0[facility] CenterLeukocytes [#/volume] corrected for nucleated erythrocytes in Blood by Automated counon 89-77-2155BCD corrected for nucl RBC Auto (Bld) [#/Vol]10.7 10 3/uL4.0-11.0[facility] CenterLymphocytes Auto (Bld) [#/Vol]on 83-75-7027Raddpfrpfac (Bld) [#/Vol]1.2 10 3/uL1.2-3.8[facility] CenterLymphocytes/100 WBC Auto (Bld)on 34-01-7709Lvcfhcaezke/100 WBC (Bld)11.3 %Low20.5-60.0[facility] CenterMCH Auto (RBC) [Entitic mass]on 67-56-6594FQI (RBC) [Entitic mass]31.4 pg26.7-34.0[facility] CenterMCHC Auto (RBC) [Mass/Vol]on 30-49-8041FKID (RBC) [Mass/Vol]32.9 g/dL29.9-35.2FMercer County Community HospitalMCV Auto (RBC) [Entitic vol]on 34-05-6587YMF (RBC) [Entitic vol] 95.6 fL81.0-99.0[facility] CenterMonocytes Auto (Bld) [#/Vol]on 26-08-5906Puevhgccr (Bld) [#/Vol]0.7 10 3/uL0.3-0.8[facility] CenterMonocytes/100 WBC Auto (Bld)on 07-13-9599Kphegptjs/100 WBC (Bld)6.3 % 1.7-12.0[facility] CenterNeutrophils Auto (Bld) [#/Vol]on 84-88-1197Ylqcnnhlvie (Bld) [#/Vol]8.7 10 3/uLHigh1.4-6.5FMercer County Community HospitalNeutrophils/100 WBC Auto (Bld)on 66-01-2048Sttoppzyjwg/100 WBC (Bld)81.8 %High43.0-75.0[facility] CenterNo Panel Informationon 24-93-925241089.0 pg/mLCritically high<=1800.0[facility] 35.5 pg/mL4.0-51.3FMercer County Community Hospital2.3 g/dLLow3.4-5.0[facility]0.0 10 3/uL0.0-0.7FMercer County Community Hospital72 U/L 46-116[facility]44 U/G36-29NsewkdzmtUniversity Hospitals Conneaut Medical Center28 U/K26-30EfvaoscurUniversity Hospitals [facility] Center38.0[facility]0.06 10 3/uLHigh0.00-0.03[facility]30.0 mg/dLHigh 7.0-18.0[facility]0.6 %High0.0-0.5FMercer County [facility] Hospital8.4 mg/dLLow8.5-10.1FMercer County Community Hospital108 mmol/L Nvko81-739KfbyssmwdUniversity Hospitals Conneaut Medical Center31.1 mmol/L21.0-32.0[facility]0.79 mg/dL0.55-1.02[facility]>60 >=60 mL/min/1.73m 2FMercer County Community Hospital122 mg/cFUeys76-088KejlgmqkyUniversity Hospitals [facility] Center4.0 mmol/L3.5-5.1FMercer County Community Hospital146 mmol/ITkiq873-407IhnqyldtyUniversity Hospitals [facility] Center0.3 mg/dL0.2-1.0[facility]5.9 g/dLLow6.4-8.2FMercer County Community Hospital Platelet mean volume Auto (Bld) [Entitic vol]on 47-78-7194Hmikpplg mean volume (Bld) [Entitic vol]10.3 fL9.5-13.5FMercer County Community HospitalPlatelets Auto (Bld) [#/Vol]on 57-42-9314Qvzjtazrw (Bld) [#/Vol]298 10 3/tB168-976 [facility] CenterRBC Auto (Bld) [#/Vol]on 40-24-9444IZZ (Bld) [#/Vol]3.63 10 6/uLLow4.20-5.40[facility] Hospitalerum or plasma albumin/globulin mass ratioon 35-45-1510Mbuxrfa/Globulin [Mass ratio]0.6 {ratio} [facility] Hospitalerum or plasma anion gap determinationon 65-08-9930Suiiy gap [Moles/Vol]10.9 mmol/LFMercer County Community Hospital Basophils Auto (Bld) [#/Vol]on 30-64-6757Mgyljvppa (Bld) [#/Vol]0.0 10 3/uL 0.0-0.1FMercer County Community HospitalBasophils/100 WBC Auto (Bld)on 71-66-9086Cwtienbxp/100 WBC (Bld)0.0 %Low0.2-2.0[facility] CenterEosinophils/100 WBC Auto (Bld)on 09-19-1778Jclbvhrexoh/100 WBC (Bld)0.0 % Low0.9-7.0[facility] CenterErythrocyte distribution width Auto (RBC) [Ratio]on 56-85-8490Eqevetyjwcg distribution width (RBC) [Ratio]14.3 % 11.0-15.0[facility] CenterEstimated glomerular filtration rate (GFR) non- Americanon 39-88-3748MBJ/1.73 sq M.predicted among non-blacks MDRD (S/P/Bld) [Vol rate/Area]mL/min/{1.73_m2}>=60 mL/min/1.73m 2FMercer County Community HospitalGlobulin Calc (S) [Mass/Vol]on 61-26-4973Trjtudkg (S) [Mass/Vol]3.9 g/dLUniversity Hospitals Conneaut Medical CenterHematocrit Auto (Bld) [Volume fraction]on 13-34-6994Baprwjimdf (Bld) [Volume fraction]35.4 %Low36.0-48.0 [facility] CenterHemoglobin [Mass/volume] in Bloodon 01-25-2025 Hemoglobin (Bld) [Mass/Vol]11.4 g/dLLow12.0-16.0[facility] CenterLeukocytes [#/volume] corrected for nucleated erythrocytes in Blood by Automated counon 04-56-5652OBC corrected for nucl RBC Auto (Bld) [#/Vol]10.3 10 3/uL4.0-11.0[facility] CenterLymphocytes Auto (Bld) [#/Vol]on 34-00-9541Vbghjgkmgps (Bld) [#/Vol]0.9 10 3/uLLow1.2-3.8[facility] CenterLymphocytes/100 WBC Auto (Bld)on 20-62-5271Kwxrxdkhkpm/100 WBC (Bld)8.5 %Low20.5-60.0[facility] HospitalH Auto (RBC) [Entitic mass]on 33-45-9477OOW (RBC) [Entitic mass]31.1 pg26.7-34.0[facility] CenterMCHC Auto (RBC) [Mass/Vol]on 44-38-9040ZQXG (RBC) [Mass/Vol]32.2 g/dL29.9-35.2FMercer County Community HospitalMCV Auto (RBC) [Entitic vol]on 70-89-8176RZF (RBC) [Entitic vol]96.7 fL81.0-99.0[facility] CenterMonocytes Auto (Bld) [#/Vol]on 90-24-9365Dhrkorhkc (Bld) [#/Vol]0.3 10 3/uL0.3-0.8[facility] CenterMonocytes/100 WBC Auto (Bld)on 08-72-5455Mrrvaebzm/100 WBC (Bld)3.0 %1.7-12.0[facility] Neutrophils Auto (Bld) [#/Vol]on 61-51-1946Bdsxownbteg (Bld) [#/Vol]9.1 10 3/uL High1.4-6.5FMercer County Community HospitalNeutrophils/100 WBC Auto (Bld)on 93-80-0090Fvwhcyygpmj/100 WBC (Bld)87.8 %High43.0-75.0[facility] CenterNo Panel Informationon 58-89-843753.7 pg/mLCritically high4.0-51.3 [facility]13284.0 pg/mLCritically high<=1800.0[facility]2.2 g/dLLow3.4-5.0[facility]0.0 10 3/uL0.0-0.7FMercer County [facility] Hospital73 U/K27-419BziazyickUniversity Hospitals [facility] Center45 U/O54-42GstfjamkeUniversity [facility]als [facility] Center40 U/EHsds71-27 [facility]41.5FMercer County [facility] Hospital0.07 10 3/uLHigh0.00-0.03[facility]34.0 mg/dLHigh7.0-18.0 [facility]0.7 %High0.0-0.5FMercer County Community Hospital8.6 mg/dL8.5-10.1FMercer County Community Hospital110 mmol/YWsxy38-422 [facility]27.7 mmol/L21.0-32.0[facility]0.82 mg/dL0.55-1.02[facility]>60>=60 mL/min/1.73m 2 [facility]121 mg/dIVguu91-178InjnsxvfgUniversity Hospitals [facility] Center4.3 mmol/L3.5-5.1FMercer County Community Hospital147 mmol/VCiiy557-447 [facility]0.3 mg/dL0.2-1.0[facility]6.1 g/dLLow6.4-8.2FMercer County Community HospitalPlatelet mean volume Auto (Bld) [Entitic vol]on 22-80-9592Hqdkumeb mean volume (Bld) [Entitic vol] 10.4 fL9.5-13.5FMercer County Community HospitalPlatelets Auto (Bld) [#/Vol]on 41-16-6409Pktoxrvok (Bld) [#/Vol]282 10 3/cT716-099ZqzciisugUniversity Hospitals Conneaut Medical CenterRBC Auto (Bld) [#/Vol]on 82-15-0860IOB (Bld) [#/Vol]3.66 10 6/uLLow 4.20-5.40[facility] Hospitalerum or plasma albumin/globulin mass ratioon 43-41-5687Gxzthfp/Globulin [Mass ratio]0.6 {ratio}[facility] Hospitalerum or plasma anion gap determinationon 23-64-5916Ioqnn gap [Moles/Vol]13.6 mmol/LFMercer County Community HospitalBasophils Auto (Bld) [#/Vol]on 63-55-9716Motskavnu (Bld) [#/Vol]0.0 10 3/uL0.0-0.1FMercer County Community HospitalBasophils/100 WBC Auto (Bld)on 96-96-3087Pvecranii/100 WBC (Bld) 0.1 %Low0.2-2.0[facility] CenterEosinophils/100 WBC Auto (Bld)on 07-97-1607Qrbncefolbm/100 WBC (Bld)0.0 %Low0.9-7.0[facility] CenterErythrocyte distribution width Auto (RBC) [Ratio]on 24-50-2870Hibqcinrqgo distribution width (RBC) [Ratio]14.5 %11.0-15.0[facility] Estimated glomerular filtration rate (GFR) non- Americanon 01-24-2025 GFR/1.73 sq M.predicted among non-blacks MDRD (S/P/Bld) [Vol rate/Area]60 mL/min/{1.73_m2}>=60 mL/min/1.73m 2FMer[facility] [address] Medical CenterGlobulin Calc (S) [Mass/Vol]on 08-86-4757Zdbrkgnz (S) [Mass/Vol]4.0 g/dLUniversity Hospitals Conneaut Medical CenterHematocrit Auto (Bld) [Volume fraction]on 01-24-2025 Hematocrit (Bld) [Volume fraction]33.6 %Low36.0-48.0[facility] CenterHemoglobin [Mass/volume] in Bloodon 25-71-7626Zpuaykslld (Bld) [Mass/Vol] 10.6 g/dLLow12.0-16.0[facility] CenterLeukocytes [#/volume] corrected for nucleated erythrocytes in Blood by Automated counon 71-34-5081XNE corrected for nucl RBC Auto (Bld) [#/Vol]15.9 10 3/uLHigh4.0-11.0[facility] CenterLymphocytes Auto (Bld) [#/Vol]on 61-45-3649Ktphpctrrhm (Bld) [#/Vol]0.9 10 3/uLLow1.2-3.8[facility] Lymphocytes/100 WBC Auto (Bld)on 12-78-4177Ukynlfkdfco/100 WBC (Bld)5.4 %Low 20.5-60.0[facility] CenterMCH Auto (RBC) [Entitic mass]on 92-83-5380QTW (RBC) [Entitic mass]31.0 pg26.7-34.0[facility] CenterMCHC Auto (RBC) [Mass/Vol]on 28-83-4712KIAT (RBC) [Mass/Vol]31.5 g/dL 29.9-35.2FMercer County Community HospitalMCV Auto (RBC) [Entitic vol]on 42-69-9772YNP (RBC) [Entitic vol]98.2 fL81.0-99.0[facility] CenterMonocytes Auto (Bld) [#/Vol]on 15-91-2985Thdvdvfiu (Bld) [#/Vol]0.5 10 3/uL0.3-0.8[facility] CenterMonocytes/100 WBC Auto (Bld)on 60-85-0843Gnmbwpydw/100 WBC (Bld)3.3 %1.7-12.0[facility] Neutrophils Auto (Bld) [#/Vol]on 51-30-5026Irprjrbxcgi (Bld) [#/Vol]14.3 10 3/uL High1.4-6.5FMercer County Community HospitalNeutrophils/100 WBC Auto (Bld)on 51-64-5671Mhemhnblyix/100 WBC (Bld)90.1 %High43.0-75.0[facility] CenterNo Panel Informationon 47-60-382801.9 pg/mL4.0-51.3FMercer County Community Hospital4453.0 pg/mLCritically high<=1800.0[facility]2.0 g/dLLow3.4-5.0[facility]0.0 10 3/uL0.0-0.7 [facility]79 U/O64-383JmhqfcpoaUniversity Hospitals [facility] Center32 U/X38-29ZgeuaoeuwUniversity Hospitals [facility] Center45 U/XTwbw21-74SxgqnozjoUniversity Hospitals [facility] Center43.3FMercer County Community Hospital0.18 10 3/uLHigh0.00-0.03 [facility]39.0 mg/dLHigh7.0-18.0[facility]1.1 %High0.0-0.5FMercer County [facility] Hospital8.4 mg/dLLow 8.5-10.1FMercer County Community Hospital109 mmol/RXrty29-424IsjqapqiuUniversity Hospitals [facility] Center27.0 mmol/L21.0-32.0[facility]0.90 mg/dL 0.55-1.02[facility]>60>=60 mL/min/1.73m 2FMercer County Community Hospital126 mg/tSGmmk84-843EhaltinkuUniversity [facility]als [facility] Center5.0 mmol/L3.5-5.1FMercer County Community Hospital143 mmol/U217-029EkcmsnahdUniversity Hospitals [facility] Medical Center0.3 mg/dL0.2-1.0[facility]6.0 g/dL Low6.4-8.2[facility] CenterPlatelet mean volume Auto (Bld) [Entitic vol]on 84-69-1400Wpkhzkwc mean volume (Bld) [Entitic vol]10.7 fL 9.5-13.5FMercer County Community HospitalPlatelets Auto (Bld) [#/Vol]on 62-06-5662Xpgyruvli (Bld) [#/Vol]258 10 3/hC028-528XwbgtbtiaUniversity Hospitals [facility] Medical CenterRBC Auto (Bld) [#/Vol]on 11-43-8898TDZ (Bld) [#/Vol]3.42 10 6/uLLow 4.20-5.40[facility] Hospitalerum or plasma albumin/globulin mass ratioon 57-90-2756Aegfshi/Globulin [Mass ratio]0.5 {ratio}[facility] Hospitalerum or plasma anion gap determinationon 30-71-1314Qtfrc gap [Moles/Vol]12.0 mmol/LFMercer County Community HospitalBasophils Auto (Bld) [#/Vol]on 67-46-6017Eleharvjr (Bld) [#/Vol]0.0 10 3/uL0.0-0.1FMercer County Community HospitalBasophils/100 WBC Auto (Bld)on 58-47-9823Jazxkfyhc/100 WBC (Bld) 0.1 %Low0.2-2.0[facility] CenterEosinophils/100 WBC Auto (Bld)on 02-33-3593Thqvbvviiaa/100 WBC (Bld)0.0 %Low0.9-7.0[facility] CenterErythrocyte distribution width Auto (RBC) [Ratio]on 08-17-3561Npjjkcxosnt distribution width (RBC) [Ratio]14.6 %11.0-15.0[facility] Estimated glomerular filtration rate (GFR) non- Americanon 01-23-2025 GFR/1.73 sq M.predicted among non-blacks MDRD (S/P/Bld) [Vol rate/Area]34 mL/min/{1.73_m2}Low>=60 mL/min/1.73m 2FMercer County Community HospitalGlobulin Calc (S) [Mass/Vol]on 52-19-4803Lnuvqzbf (S) [Mass/Vol]4.0 g/dLUniversity Hospitals Conneaut Medical CenterHematocrit Auto (Bld) [Volume fraction]on 01-23-2025 Hematocrit (Bld) [Volume fraction]34.8 %Low36.0-48.0[facility] CenterHemoglobin [Mass/volume] in Bloodon 85-32-4717Dejtnfadtk (Bld) [Mass/Vol] 11.2 g/dLLow12.0-16.0[facility] CenterLeukocytes [#/volume] corrected for nucleated erythrocytes in Blood by Automated counon 07-86-1097ZCO corrected for nucl RBC Auto (Bld) [#/Vol]25.6 10 3/uLHigh4.0-11.0[facility] CenterLymphocytes Auto (Bld) [#/Vol]on 04-96-9832Nywuzecstrx (Bld) [#/Vol]1.3 10 3/uL1.2-3.8[facility] CenterLymphocytes/100 WBC Auto (Bld)on 32-72-9894Vdicltomwpb/100 WBC (Bld)5.0 %Low20.5-60.0[facility]. [facility] HospitalH Auto (RBC) [Entitic mass]on 11-60-1689EMO (RBC) [Entitic mass]31.4 pg26.7-34.0[facility] CenterMCHC Auto (RBC) [Mass/Vol]on 94-45-5526FUJG (RBC) [Mass/Vol]32.2 g/dL29.9-35.2FMercer County Community HospitalMCV Auto (RBC) [Entitic vol]on 48-57-6863AUD (RBC) [Entitic vol] 97.5 fL81.0-99.0[facility] CenterMonocytes Auto (Bld) [#/Vol]on 33-74-8258Wmyrlijmw (Bld) [#/Vol]0.8 10 3/uL0.3-0.8[facility] CenterMonocytes/100 WBC Auto (Bld)on 57-96-9014Vgneifryq/100 WBC (Bld)3.0 % 1.7-12.0[facility] CenterNeutrophils Auto (Bld) [#/Vol]on 09-57-6754Mwzrplrgtsn (Bld) [#/Vol]22.7 10 3/uLHigh1.4-6.5FMercer County Community HospitalNeutrophils/100 WBC Auto (Bld)on 65-75-4316Kaxvqmoirmz/100 WBC (Bld)89.0 %High43.0-75.0[facility] CenterNo Panel Informationon 49-03-56397182.0 pg/mLCritically high<=1800.0[facility] 2.3 g/dLLow3.4-5.0[facility]0.0 10 3/uL0.0-0.7FMercer County Community Hospital74 U/R74-742QfgfrhtziUniversity Hospitals [facility] Center15 U/L14-59 [facility]20 U/A94-23FkvufqiuzUniversity Hospitals [facility] Center 28.8[facility]0.74 10 3/uLHigh0.00-0.03[facility]42.0 mg/dLHigh7.0-18.0[facility]2.9 %High 0.0-0.5FMercer County [facility] Hospital9.2 mg/dL8.5-10.1FMercer County [facility] Hospital106 mmol/L19-889IcmfxmuhoUniversity Hospitals [facility]aut [facility] Center27.8 mmol/L 21.0-32.0[facility]1.46 mg/dLHigh0.55-1.02[facility]41Low>=60 mL/min/1.73m 2FMercer [facility] Hospital 118 mg/kYXfgx22-900RrfguwsejUniversity Hospitals [facility] Center5.7 mmol/LHigh3.5-5.1 [facility]142 mmol/F246-017VtwxhxdvrUniversity Hospitals Conneaut Medical Center0.3 mg/dL0.2-1.0[facility]6.3 g/dLLow6.4-8.2 [facility] CenterPlatelet mean volume Auto (Bld) [Entitic vol]on 13-37-4919Cvdbvsof mean volume (Bld) [Entitic vol]10.3 fL9.5-13.5FMercer County Community HospitalPlatelets Auto (Bld) [#/Vol]on 58-56-6908Gydfghhkh (Bld) [#/Vol]247 10 3/aY654-982IrjmmbpilUniversity Hospitals Conne[facility] Medical CenterRBC Auto (Bld) [#/Vol] on 64-91-4355ECU (Bld) [#/Vol]3.57 10 6/uLLow4.20-5.40[facility] Hospitalerum or plasma albumin/globulin mass ratioon 06-65-7410Twqmlxw/Globulin [Mass ratio]0.6 {ratio}[facility] Hospitalerum or plasma anion gap determinationon 35-08-9300Lkhxe gap [Moles/Vol]13.9 mmol/LFMercer County Community HospitalBasophils/100 WBC Manual cnt (Bld)on 00-08-9302Zjpwohlpl/100 WBC (Bld)0.0 %Low0.2-2.0[facility] CenterEosinophils/100 WBC Manual cnt (Bld)on 60-90-1327Fbeirrbefmy/100 WBC (Bld)0.0 %Low0.9-7.0[facility] CenterErythrocyte distribution width Auto (RBC) [Ratio]on 01-22-2025 Erythrocyte distribution width (RBC) [Ratio]14.5 %11.0-15.0[facility] CenterEstimated glomerular filtration rate (GFR) non- Americanon 74-12-6464NOF/1.73 sq M.predicted among non-blacks MDRD (S/P/Bld) [Vol rate/Area]40 mL/min/{1.73_m2}Low>=60 mL/min/1.73m 2FMercer County Community HospitalHematocrit Auto (Bld) [Volume fraction]on 65-60-9902Lqmrdlxfvb (Bld) [Volume fraction]42.7 %36.0-48.0[facility] CenterHemoglobin [Mass/volume] in Bloodon 14-46-5117Zeqnzwvmfw (Bld) [Mass/Vol]13.8 g/dL12.0-16.0 [facility] CenterLeukocytes [#/volume] corrected for nucleated erythrocytes in Blood by Automated counon 29-47-4386HEP corrected for nucl RBC Auto (Bld) [#/Vol]22.0 10 3/uLHigh4.0-11.0[facility]. [facility] HospitalH Auto (RBC) [Entitic mass]on 86-75-0118NSC (RBC) [Entitic mass]31.2 pg26.7-34.0 [facility] CenterMCHC Auto (RBC) [Mass/Vol]on 70-77-5124JBEI (RBC) [Mass/Vol]32.3 g/dL29.9-35.2FBarney Children's Medical CenterV Auto (RBC) [Entitic vol]on 21-11-5536UYL (RBC) [Entitic vol]96.6 fL81.0-99.0[facility] CenterNo Panel Informationon 53.1 mmol/LCritically high0.4-2.0[facility] CenterNegativeUniversity [facility]als [facility] Center21.4 pg/mL4.0-51.3FMercer County [facility] Hospital7.7 10 3/uLHigh0.0-0.3 [facility]22.7FMercer [facility] Hospital35.0 %High 0-5FMercer [facility] Hospital29.0 mg/dLHigh7.0-18.0[facility]0.00 10 3/uL0.00-0.70[facility]10.1 mg/dL 8.5-10.1FMercer County Community Hospital103 mmol/P04-197HexkttioiUniversity Hospitals [facility] Center27.9 mmol/L21.0-32.0[facility]1.28 mg/dL High0.55-1.02[facility]1.10 10 3/uLLow1.20-3.80[facility]48Low>=60 mL/min/1.73m 2FMercer County [facility] Hospital 5.0 %Low20.5-60.0[facility]0.88 10 3/uLHigh0.30-0.80 [facility]106 mg/qS75-122NvbqbktebUniversity Hospitals Conneaut Medical Center4.0 %1.7-12.0[facility]4.6 mmol/L3.5-5.1FMercer County [facility] Hospital12.32 10 3/uLHigh1.4-6.5FMercer County [facility] 143 mmol/E093-768MebfpmbrxUniversity Hospitals Conneaut Medical CenterPlatelet mean volume Auto (Bld) [Entitic vol]on 70-40-4302Qpiksyjo mean volume (Bld) [Entitic vol]10.5 fL 9.5-13.5FMercer County Community HospitalPlatelets Auto (Bld) [#/Vol]on 93-11-2603Lyxuawogn (Bld) [#/Vol]308 10 3/fH012-733ZdpsdtwetUniversity Hospitals Conneaut Medical CenterRBC Auto (Bld) [#/Vol]on 85-87-4828BRU (Bld) [#/Vol]4.42 10 6/uL4.20-5.40 [facility] Hospitalegmented neutrophils/100 WBC Manual cnt (Bld) on 20-31-4310Hrcnepgye neutrophils/100 WBC (Bld)56.0 %43.0-75.0[facility] Hospitalerum or plasma anion gap determinationon 09-22-8042Qlhhm gap [Moles/Vol]16.7 mmol/LFMercer County Community HospitalAlanine aminotransferase [Enzymatic activity/volume] in Serum or PlasmaOrdered By: Sheldon Xie on 02-68-6814VJV [Catalytic activity/Vol]Alanine aminotransferase [Enzymatic activity/volume] in Serum or Plasma7-52[facility] CenterAlbumin [Mass/volume] in Serum or Plasma by Bromocresol green (BCG) dye binding methoOrdered By: Sheldon Xie on 52-76-5527Uuldija BCG dye [Mass/Vol] Albumin [Mass/volume] in Serum or Plasma by Bromocresol green (BCG) dye binding metho3.5-5.7FMercer County Community HospitalAlkaline phosphatase [Enzymatic activity/volume] in Serum or PlasmaOrdered By: Sheldon Xie on 73-73-2418KJZ [Catalytic activity/Vol]Alkaline phosphatase [Enzymatic activity/volume] in Serum or Pfilrh14-515NorcclretUniversity Hospitals Conneaut Medical CenterAspartate aminotransferase [Enzymatic activity/volume] in Serum or PlasmaOrdered By: Sheldon Xie on 94-84-5395DEE [Catalytic activity/Vol]Aspartate aminotransferase [Enzymatic activity/volume] in Serum or Aebfyo91-20FqmrvpdnfUniversity Hospitals Conneaut [facility] Center Basophils Auto (Bld) [#/Vol]Ordered By: Sheldon Xie on 97-19-8499Cqpfocvkg (Bld) [#/Vol]Automated basophil count0.0-0.2FMercer County Community Hospital Basophils/100 WBC Auto (Bld)Ordered By: Sheldon Xie on 31-47-7799Vldgklbyu/100 WBC (Bld)Automated basophil %.[facility] CenterBilirubin.total [Mass/volume] in Serum or PlasmaOrdered By: Sheldon Xie on 22-98-9949Zoorzsmkw [Mass/Vol]Bilirubin.total [Mass/volume] in Serum or Plasma0.3-1.0[facility] CenterCalcium [Mass/volume] in Serum or PlasmaOrdered By: Sheldon Xie on 75-44-3568Pqnhuje [Mass/Vol]Calcium [Mass/volume] in Serum or Plasma High8.6-10.3FMercer County Community HospitalCarbon dioxide, total [Moles/volume] in Serum or PlasmaOrdered By: Sheldon Xie on 55-65-9430QM1 [Moles/Vol]Carbon dioxide, total [Moles/volume] in Serum or OhvzayDpkp14.0-31.0 [facility] CenterChloride [Moles/volume] in Serum or Plasma Ordered By: Sheldon Xie on 42-82-1876Ynbhocpx [Moles/Vol]Chloride [Moles/volume] in Serum or Eoniyx88-076PhdaoxquzUniversity Hospitals Conneaut Medical CenterCholesterol [Mass/volume] in Serum or PlasmaOrdered By: Sheldon Xie on 95-95-4895Dgtmakjcfiz [Mass/Vol]Cholesterol [Mass/volume] in Serum or OllvgrZba428-088XsobkxkebUniversity Hospitals Conneaut Medical CenterComment on above:Chol less than 200 mg/dl low riskChol 201-239 mg/dl borderline riskChol 240 mg/dl and greater high riskCholesterol in HDL [Mass/volume] in Serum or PlasmaOrdered By: Sheldon Xie on 11-14-2024 Cholesterol in HDL [Mass/Vol]Serum or plasma high density lipoprotein (HDL) cholesterol cowqzizmmve12-66NgkdyucznUniversity Hospitals Conneaut Medical CenterComment on above: HDL CHOL ATP-III CLASSIFICATION Cardiovascular RiskHDL > or equal to 60 mg/dL LOWHDL < 40 mg/dL HIGHCholesterol in LDL Calc [Mass/Vol]Ordered By: Sheldon Xie on 08-95-5033Fvuctuvyrtl in LDL [Mass/Vol]Cholesterol in LDL [Mass/volume] in Serum or Plasma by calculation0-100[facility] CenterComment on above:LDL ATP III CLASSIFICATIONLDL less than 100 mg/dL OptimalLDL 100-129 mg/dL Near or above kebrbqkTTW734-843 mg/dL Borderline highLDL 160-189 mg/dL HighLDL greater than 189 mg/dL Very highCholesterol in VLDL Calc [Mass/Vol]Ordered By: Sheldon Xie on 69-60-2450Sdatxqqzrtg in VLDL [Mass/Vol]Cholesterol in VLDL [Mass/volume] in Serum or Plasma by calculationUniversity Hospitals Conneaut Medical Center Complete Blood Count Auto Diffon 32-34-2439Kegyetsrj (Bld) [#/Vol]0.1 10*3/uL Normal0.0-0.2[facility] Physician GroupComment on above:Result Comment: PERFORMED BY: [place] [address] PATHOLOGIST OFFICE AUTOMATION TECHNICIAN SUKUMAR SINGH M.D.Performed By: #### CMP, LIPID, TSH3, CBC #### [facility] [address] [place] [address] USABasophils/100 WBC (Bld)1.0 %Normal.[facility] Physician GroupComment on above:Performed By: #### CMP, LIPID, TSH3, CBC #### [facility] [address] [place] [id number] USAEosinophils (Bld) [#/Vol]0.3 10*3/uLNormal0.0-0.45The [facility] Physician GroupComment on above:Performed By: #### CMP, LIPID, TSH3, CBC #### [facility] [address] [place] [address] [place]Eosinophils/100 WBC (Bld)2.9 %Normal.The [facility] Physician GroupComment on above:Performed By: #### CMP, LIPID, TSH3, CBC #### [place] [address] USAErythrocyte distribution width (RBC) [Ratio]15.0 %Normal 11.9-15.3The [facility] Physician GroupComment on above:Performed By: #### CMP, LIPID, TSH3, CBC #### [place] [address] USAHematocrit (Bld) [Volume fraction]38.8 %Yyhhhv09.0-46.4The [facility] Physician GroupComment on above:Performed By: #### CMP, LIPID, TSH3, CBC #### [place] [address] USAHemoglobin (Bld) [Mass/Vol]12.7 g/iWRftapy76.8-15.4The [facility] Physician GroupComment on above:Performed By: #### CMP, LIPID, TSH3, CBC #### [place] [address] [place]ymphocytes (Bld) [#/Vol]1.6 10*3/uLNormal1.00-4.8The [facility] Physician GroupComment on above:Performed By: #### CMP, LIPID, TSH3, CBC #### [place] [address] [place]ALymphocytes/100 WBC (Bld)16.8 %Normal.The [facility] Physician GroupComment on above:Performed By: #### CMP, LIPID, TSH3, CBC #### [place] [address] USAMCH (RBC) [Entitic mass]31.5 rmDqsdxo78.7-34.3The [facility] Physician GroupComment on above:Performed By: #### CMP, LIPID, TSH3, CBC #### [place] [address] USAMCV (RBC) [Entitic vol]96.5 [id number] Physician GroupComment on above:Performed By: #### CMP, LIPID, TSH3, CBC #### [place] [address] USAMean Corpuscular HGB Conc32.7 g/gFWrsgdh87.0-35.0The [facility] Physician GroupComment on above:Performed By: #### CMP, LIPID, TSH3, CBC #### [place] [address] USAMonocytes (Bld) [#/Vol]0.7 10*3/uLNormal0.0-0.8The [facility] Physician GroupComment on above:Performed By: #### CMP, LIPID, TSH3, CBC #### [place] [address] USAMonocytes/100 WBC (Bld)7.0 %Normal.The [facility] Physician GroupComment on above:Performed By: #### CMP, LIPID, TSH3, CBC #### [place] [address] USANeutrophils (Bld) [#/Vol]6.9 10*3/uLNormal1.8-7.7The [facility] Physician GroupComment on above:Performed By: #### CMP, LIPID, TSH3, CBC #### [place] [address] USANeutrophils/100 WBC (Bld)72.3 %Normal.The [facility] Physician GroupComment on above:Performed By: #### CMP, LIPID, TSH3, CBC #### [place] [address] USANRBC%0.1 /100{WBC}Normal0-0.5[facility] Comment on above:Performed By: #### CMP, LIPID, TSH3, CBC #### [place] [address] USAPlatelet mean volume (Bld) [Entitic vol]8.9 fLNormal 6.3-10.7The [facility] Physician GroupComment on above:Performed By: #### CMP, LIPID, TSH3, CBC #### [place] [address] USAPlatelets (Bld) [#/Vol]381 10*3/vHUcqqib727-487Wmu [facility] Physician GroupComment on above:Performed By: #### CMP, LIPID, TSH3, CBC #### [place] [address] USARBC (Bld) [#/Vol]4.02 10*6/uLNormal3.60-5.00The [facility] Physician GroupComment on above:Performed By: #### CMP, LIPID, TSH3, CBC #### [place] [address] USAWBC (Bld) [#/Vol]9.5 10*3/uLNormal3.8-11.6The [facility] Physician GroupComment on above:Performed By: #### CMP, LIPID, TSH3, CBC #### [place] [address] USAComprehensive Metabolic Panelon 86-75-5633Qvdxmbr [Mass/Vol]4.0 g/dLNormal3.5-5.7The [facility] Physician GroupComment on above: Performed By: #### CMP, LIPID, TSH3, CBC #### [place] [address] USAAlbumin/Globulin [Mass ratio]1.2 {ratio}NormalThe [facility] Health Physician GroupComment on above:Performed By: #### CMP, LIPID, TSH3, CBC #### [place] [address] USAALP [Catalytic activity/Vol]64 U/OSzvudv29-208Xed [facility] Physician GroupComment on above:Performed By: #### CMP, LIPID, TSH3, CBC #### [place] [address] USAALT [Catalytic activity/Vol]12 U/LNormal7-52The [facility] Physician GroupComment on above:Performed By: #### CMP, LIPID, TSH3, CBC #### [place] [address] USAAnion gap [Moles/Vol]12.7 mmol/LNormal6.0-15.0The [facility] Physician GroupComment on above:Performed By: #### CMP, LIPID, TSH3, CBC #### [place] [address] USAAST [Catalytic activity/Vol]20 U/AMugrsw21-15Mas [facility] Physician GroupComment on above:Performed By: #### CMP, LIPID, TSH3, CBC #### [place] [address] USABilirubin [Mass/Vol]0.6 mg/dLNormal0.3-1.0The [facility] Physician GroupComment on above:Performed By: #### CMP, LIPID, TSH3, CBC #### [place] [address] USACalcium [Mass/Vol]10.4 mg/dLHigh8.6-10.3The [facility] Physician GroupComment on above:Performed By: #### CMP, LIPID, TSH3, CBC #### [place] [address] USAChloride [Moles/Vol]102 mmol/UPumyke78-388Tcb [facility] Physician GroupComment on above:Performed By: #### CMP, LIPID, TSH3, CBC #### [place] [address] USACO2 [Moles/Vol]31.8 mmol/LHigh21.0-31.0The [facility] Physician GroupComment on above:Performed By: #### CMP, LIPID, TSH3, CBC #### [place] [address] USACreatinine [Mass/Vol]1.03 mg/dLNormal0.60-1.20The [facility] Physician GroupComment on above:Performed By: #### CMP, LIPID, TSH3, CBC #### [place] [address] USAEstimated GFR53.951 mL/MinNormalThe [facility] Health Physician GroupComment on above:Performed By: #### CMP, LIPID, TSH3, CBC #### [place] [address] USAGlobulin (S) [Mass/Vol]3.3 g/dLNormalThe [facility] Health Physician GroupComment on above:Performed By: #### CMP, LIPID, TSH3, CBC #### [facility] [address] [place] [address] USAGlucose [Mass/Vol]80 mg/qFCwuxuy82-117Enn [facility] Physician GroupComment on above:Result Comment: Random Glucose Reference Range is dependent on time and content of last meal. Glucose of more than 200 mg/dL in a nonstressed, ambulatory subject supports the diagnosis of Diabetes Mellitus. ADA recommended reference rangePerformed By: #### CMP, LIPID, TSH3, CBC #### [place] [address] USAPotassium [Moles/Vol]4.5 mmol/LNormal3.5-5.1The [facility] Physician GroupComment on above:Performed By: #### CMP, LIPID, TSH3, CBC #### [place] [address] USAProtein [Mass/Vol]7.3 g/dLNormal6.4-8.9The [facility] Physician [facility] Hospital Of GreenvilleComment on above:Performed By: #### CMP, LIPID, TSH3, CBC #### [place] [address] USASodium [Moles/Vol]142 mmol/PMjbjxz509-545Niu [facility] Physician GroupComment on above:Performed By: #### CMP, LIPID, TSH3, CBC #### [place] [address] USAUrea nitrogen [Mass/Vol]34 mg/dLHigh7-25The [facility] Physician GroupComment on above:Performed By: #### CMP, LIPID, TSH3, CBC #### [place] [address] USACreatinine [Mass/volume] in Serum or PlasmaOrdered By: Sheldon Xie on 42-06-6067Pgkcyqesan [Mass/Vol]Creatinine [Mass/volume] in Serum or Plasma0.60-1.20[facility] CenterEosinophils Auto (Bld) [#/Vol]Ordered By: Sheldon Xie on 77-08-1695Vrwnzabutld (Bld) [#/Vol]Automated eosinophil count0.0-0.45[facility] CenterEosinophils/100 WBC Auto (Bld)Ordered By: Sheldon Xie on 71-23-7965Mjzlqksrira/100 WBC (Bld)Automated eosinophil %.[facility] CenterErythrocyte distribution width Auto (RBC) [Ratio]Ordered By: Sheldon Xie on 94-70-5032Udldjgkatsa distribution width (RBC) [Ratio]Erythrocyte distribution width [Ratio] by Automated count 11.9-15.3FMercer County Community HospitalGlobulin Calc (S) [Mass/Vol]Ordered By: Sheldon Xie on 62-12-1815Mnflknmu (S) [Mass/Vol]Serum globulin measurement by calculation (mass/volume)[facility] CenterGlucose [Mass/volume] in Serum or PlasmaOrdered By: Sheldon Xie on 77-02-0178Lnljmrt [Mass/Vol]Glucose [Mass/volume] in Serum or Xrflpw01-095IxesraqsfUniversity Hospitals Conneaut Medical CenterComment on above:ADA recommended reference rangeRandom Glucose Reference Range is dependent on time and content of last meal. Glucose of more than 200 mg/dL in a nonstressed, ambulatory subject supports the diagnosisof Diabetes Mellitus. Hematocrit Auto (Bld) [Volume fraction]Ordered By: Sheldon Xie on 11-14-2024 Hematocrit (Bld) [Volume fraction]Hematocrit [Volume Fraction] of Blood by Automated count34.0-46.4FMercer County Community HospitalHemoglobin [Mass/volume] in BloodOrdered By: Sheldon Xie on 70-68-8207Lodlncfnap (Bld) [Mass/Vol]Hemoglobin [Mass/volume] in Blood11.8-15.4FMercer County Community HospitalLeukocytes [#/volume] corrected for nucleated erythrocytes in Blood by Automated counOrdered By: Sheldon Xie on 81-94-9889OTW corrected for nucl RBC Auto (Bld) [#/Vol]Leukocytes [#/volume] corrected for nucleated erythrocytes in Blood by Automated coun3.8-11.6FMercer County Community HospitalLipid Panelon 59-26-3090Hpjhkuhagwe [Mass/Vol]133 mg/eBBrl941-227Hrk [facility] Comment on above:Result Comment: Chol less than 200 mg/dl low risk Chol 201-239 mg/dl borderline risk Chol 240 mg/dl and greater high riskPerformed By: #### CMP, LIPID, TSH3, CBC #### [facility] [address] [place] [address] USACholesterol in HDL [Mass/Vol]46 mg/rXVwydoe27-22Ess [facility] Physician GroupComment on above:Result Comment: HDL CHOL ATP-III CLASSIFICATION Cardiovascular Risk HDL > or equal to 60 mg/dL LOW HDL < 40 mg/dL HIGHPerformed By: #### CMP, LIPID, TSH3, CBC #### [facility] [address] [place] [id number] USACholesterol.total/Cholesterol in HDL [Mass ratio]2.9 {ratio}Normal<5.0The [facility] Physician GroupComment on above:Performed By: #### CMP, LIPID, TSH3, CBC #### [facility] [address] [place] [id number] USALDL Cholesterol,Wqjlxxopqs48 mg/dLNormal0-100The [facility] Physician GroupComment on above:Result Comment: LDL ATP III CLASSIFICATION LDL less than 100 mg/dL Optimal LDL 100-129 mg/dL Near or above optimal LDL 130-159 mg/dL Borderline high LDL 160-189 mg/dL High LDL greater than 189 mg/dL Very highPerformed By: #### CMP, LIPID, TSH3, CBC #### [facility] [address] [place] [address] USATriglyceride w/Qadwnk058 mg/dLNormal0-149The [facility] Physician GroupComment on above:Result Comment: TRIG ATP III CLASSIFICATION TRIG less than 150 mg/dL Normal TRIG 150-199 mg/dL Borderline high TRIG 200-500 mg/dL High TRIG greater than 500 mg/dL Very high Standard traceable to the Center for Disease Conrtrol and Prevention (CDC) test method.Performed By: #### CMP, LIPID, TSH3, CBC #### [facility] [address] [place] [address] USAVLDL SQFEHTTUIDH31 mg/dLNormalThe [facility] Physician GroupComment on above:Performed By: #### CMP, LIPID, TSH3, CBC #### [facility] [address] [place] [address] USALymphocytes Auto (Bld) [#/Vol]Ordered By: Sheldon Xie on 67-64-1223Iqkhycjzblz (Bld) [#/Vol]Lymphocytes [#/volume] in Blood by Automated count1.00-4.8[facility] Medical CenterLymphocytes/100 WBC Auto (Bld) Ordered By: Sheldon Xie on 59-73-5616Onnzrsqmxlj/100 WBC (Bld)Lymphocytes/100 leukocytes in Blood by Automated count.[facility] HospitalH Auto (RBC) [Entitic mass]Ordered By: Sheldon Xie on 85-13-9543ZAN (RBC) [Entitic mass]MCH [Entitic mass] by Automated count24.7-34.3FMercer County Community HospitalMCHC Auto (RBC) [Mass/Vol]Ordered By: Sheldon Xie on 99-79-0960KKDA (RBC) [Mass/Vol]MCHC [Mass/volume] by Automated count32.0-35.0[facility] CenterMCV Auto (RBC) [Entitic vol]Ordered By: Sheldon Xie on 11-14-2024 MCV (RBC) [Entitic vol]MCV [Entitic volume] by Automated ebfzv65-885UispbkvmsUniversity Hospitals Conneaut Medical CenterMonocytes Auto (Bld) [#/Vol]Ordered By: Sheldon Xie on 43-64-7586Xlrtzingg (Bld) [#/Vol]Automated blood monocyte count0.0-0.8[facility] Medical CenterMonocytes/100 WBC Auto (Bld)Ordered By: Sheldon Xie on 40-56-3866Chpgscclq/100 WBC (Bld)Automated monocyte %.[facility] Medical CenterNeutrophils Auto (Bld) [#/Vol]Ordered By: Sheldon Xie on 11-14-2024 Neutrophils (Bld) [#/Vol]Neutrophils [#/volume] in Blood by Automated count 1.8-7.7FMercer County Community HospitalNeutrophils/100 WBC Auto (Bld)Ordered By: Sheldon Xie on 79-76-3415Qivhndglfyp/100 WBC (Bld)Automated neutrophil %. [facility] CenterNo Panel InformationOrdered By: Sheldon Xie on 28-34-5552Kquirputs GFR (CKD-EPI)53.951 mL/MinUniversity Hospitals Conneaut Medical Center Pharmacy Creatinine Clearance (ChemN/AFMercer County Community HospitalNucleated erythrocytes [Presence] in Blood by Automated countOrdered By: Sheldon Xie on 09-25-4692Apdsxqqzl RBC Auto Ql (Bld)Nucleated erythrocytes [Presence] in Blood by Automated count0-0.5FMercer County Community HospitalPlatelet mean volume Auto (Bld) [Entitic vol]Ordered By: Sheldon Xie on 56-84-4716Tfiegkwm mean volume (Bld) [Entitic vol]Platelet mean volume [Entitic volume] in Blood by Automated count6.3-10.7FMercer County Community HospitalPlatelets Auto (Bld) [#/Vol] Ordered By: Sheldon Xie on 72-77-6410Svoaibfaa (Bld) [#/Vol]Platelets [#/volume] in Blood by Automated fogko818-989IgyevprbxUniversity Hospitals Conneaut Medical CenterPotassium [Moles/volume] in Serum or PlasmaOrdered By: Sheldon Xie on 72-59-2192Kxxinggdb [Moles/Vol]Potassium [Moles/volume] in Serum or Plasma3.5-5.1FMercer County Community HospitalProtein [Mass/volume] in Serum or PlasmaOrdered By: Sheldon Xie on 45-53-5001Iyygqtq [Mass/Vol]Protein [Mass/volume] in Serum or Plasma6.4-8.9 [facility] Medical CenterRBC Auto (Bld) [#/Vol]Ordered By: Sheldon Xie on 95-12-0694QQW (Bld) [#/Vol]Erythrocytes [#/volume] in Blood by Automated count 3.60-5.00Sheltering Arms Hospitalerum or plasma albumin/globulin mass ratioOrdered By: Sheldon Xie on 14-16-0085Xbcbrpt/Globulin [Mass ratio]Serum or plasma albumin/globulin mass ratioSheltering Arms Hospitalerum or plasma anion gap determinationOrdered By: Sheldon Xie on 26-27-8201Svnzl gap [Moles/Vol]Serum or plasma anion gap determination6.0-15.0Sheltering Arms Hospitalerum or plasma total cholesterol/high density lipoprotein (HDL) cholesterol mass ratOrdered By: Sheldon Xie on 11-14-2024 Cholesterol.total/Cholesterol in HDL [Mass ratio]Serum or plasma total cholesterol/high density lipoprotein (HDL) cholesterol mass rat<5.0Sheltering Arms Hospitalodium [Moles/volume] in Serum or PlasmaOrdered By: Sheldon Xie on 57-43-8324Zerxjp [Moles/Vol]Sodium [Moles/volume] in Serum or Plasma 136-145[facility] Medical CenterThyroid Stimulating Hormoneon 11-14-2024 TSH Qn3.33 m[IU]/LNormal0.45-5.33The [facility] Physician GroupComment on above: Result Comment: PERFORMED BY: [place] [address] PATHOLOGIST OFFICE AUTOMATION TECHNICIAN SUKUMAR SINGH M.D.Performed By: #### CMP, LIPID, TSH3, CBC #### [facility] [address] [place] [address] USAThyrotropin [Units/volume] in Serum or PlasmaOrdered By: Sheldon Xie on 90-79-4750JAK QnThyrotropin [Units/volume] in Serum or Plasma 0.45-5.33[facility] Medical CenterTriglyceride [Mass/volume] in Serum or PlasmaOrdered By: Sheldon Xie on 82-86-4536Peystjijogoe [Mass/Vol]Triglyceride [Mass/volume] in Serum or Plasma0-149[facility] Medical CenterComment on above:TRIG ATP III CLASSIFICATIONTRIG less than 150 mg/dL NormalTRIG 150-199 mg/dL Borderline highTRIG 200-500 mg/dL High TRIG greater than 500 mg/dL Very highStandard traceable to the Center for Disease Conrtrol and Prevention (CDC) test method.Urea nitrogen [Mass/volume] in Serum or PlasmaOrdered By: Sheldon Xie on 39-50-9704Amcu nitrogen [Mass/Vol]Urea nitrogen [Mass/volume] in Serum or PlasmaHigh7-25[facility] Medical CenterWBC Auto (Bld) [#/Vol]Ordered By: Sheldon Xie on 65-51-1990IUC (Bld) [#/Vol]Leukocytes [#/volume] in Blood by Automated count3.8-11.6FMercer County Community HospitalNo Panel Informationon 03-85-8938Mchn Tone Audiometry Audio indicated 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 [facility]Health HendersonvilleEstimated glomerular filtration rate (GFR) non- Americanon 16-21-1010DMH/1.73 sq M.predicted among non-blacks MDRD (S/P/Bld) [Vol rate/Area]Estimated glomerular filtration rate (GFR) non- AmericanLow>=60 mL/min/1.73m 2FMercer County Community HospitalGlobulin Calc (S) [Mass/Vol]on 75-69-3076Yczhpqpe (S) [Mass/Vol]Serum globulin measurement by calculation (mass/volume)[facility] CenterLaboratory - Chemistry and Chemistry - challengeon 95-89-1223Zcqvnnd [Mass/Vol]3.4 g/dL3.4-5.0 [facility] Medical CenterALP [Catalytic activity/Vol]74 U/L46-116 [facility] CenterALT [Catalytic activity/Vol]15 U/L14-59 [facility] CenterAST [Catalytic activity/Vol]19 U/L15-37 [facility] Medical CenterBilirubin [Mass/Vol]0.4 mg/dL0.2-1.0[facility] Medical CenterCalcium [Mass/Vol]9.6 mg/dL8.5-10.1FMercer County Community HospitalChloride [Moles/Vol]107 mmol/E99-665AgxlphvcjUniversity Hospitals Conneaut Medical CenterCO2 [Moles/Vol]29.7 mmol/L21.0-32.0[facility] Creatinine [Mass/Vol]1.28 mg/dLHigh0.55-1.02[facility] GFR/1.73 sq M.predicted MDRD (S/P/Bld) [Vol rate/Area]48 mL/min/{1.73_m2}Low>=60 mL/min/1.73m 2FMercer County Community HospitalGlucose [Mass/Vol]113 mg/dLHigh 74-106[facility] Medical CenterPotassium [Moles/Vol]4.9 mmol/L3.5-5.1 [facility] CenterProtein [Mass/Vol]6.9 g/dL6.4-8.2FTrinity Health System East Campusodium [Moles/Vol]145 mmol/K572-006GauxvmfnaUniversity Hospitals Conneaut Medical CenterUrea nitrogen [Mass/Vol]25.0 mg/dLHigh7.0-18.0[facility] Medical CenterUrea nitrogen/Creatinine [Mass ratio]19.5 mg/mgSheltering Arms Hospitalerum or plasma albumin/globulin mass ratioon 07-08-2024 Albumin/Globulin [Mass ratio]Serum or plasma albumin/globulin mass ratio Shel[facility] Hospitalerum or plasma anion gap determinationon 97-44-3719Mhfmr gap [Moles/Vol]Serum or plasma anion gap determinationUniversity Hospitals Conneaut Medical CenterXR lumbar spine 6V w bendingon 29-15-4212MF lumbar spine 6[place] [address] XRay Report Signed Patient: Aleksandr Sanchez MR#: [id number] : 1940 Acct:[id number] Age/Sex: 83 / F ADM Date: 06/18/24 Loc: [facility] Room: Type: [facility] Attending Dr: Sheldon Xie DO Copies to: [...] Gray Mukherjee M.D.06/18/2024 6:14 PM Dictation Location: [place] [address] Transcribed By: [facility] 06/18/241813 Dictated By: Gray Mukherjee II, MD 06/18/241812 Signed By: 06/18/241813[facility] Physician GroupXR ribs RT 2Von 60-90-0864OF ribs RT 2VFL[place] [address] XRay Report Signed Patient: Aleksandr Sanchez MR#: [id number] : 1940 Acct:[id number] Age/Sex: 83 / F ADM Date: 06/18/24 Loc: [facility] Room: Type: [facility] Attending Dr: Sheldon Xie DO Copies to: Sheldon Xie DO Ordering Provider: Sheldon Xie DO Date of Service: 06/18/24 XR/XR cervical spine 5V*: W19.XXXA - Unspecified fall, initial encounter ([id number]) XR/XR ribs RT 2V: W19.XXXA - Unspecified fall, initial encounter ([id number]) XR/XR sacrum coccyx min 2V: W19.XXXA - [...] Latonya Cueva M.D.06/18/2024 11:09 PM Dictation Location: [place] [address] Transcribed By: [facility] 06/18/242308 Dictated By: Latonya Cueva MD 06/18/242299 Signed By: 06/18/242308[facility] Physician GroupInfluenza virus B Ag [Presence] in Upper respiratory specimen by Rapid immunoassayon 47-16-9040LZXDR Ag IA.rapid Ql (Nph)NegativeUniversity Hospitals Conneaut Medical CenterFLUBV Ag IA.rapid Ql (Nph) Influenza virus B Ag [Presence] in Upper respiratory specimen by Rapid immunoassayUniversity Hospitals Conneaut Medical CenterNo Panel InformationOrdered By: Sheldon Xie on 58-43-9896[place] Strep (POC)[facility] Medical CenterRSV (POC)[facility] Medical CenterQuick Strep (POC)[facility] Medical CenterRSV (POC)[facility] Medical CenterNo Panel Informationon 20-88-6820Bqmeklnfd Type A (Rapid)NegativeUniversity Hospitals Conneaut Medical CenterPOC SARS CoV-2 AntigenNegativeUniversity Hospitals Conneaut Medical CenterXR chest 2V*on 03-19-2007XA chest 2V*[facility] [place] [address] [place] [address] XRay Report Signed Patient: Aleksandr Sanchez MR#: [id number] : 1940 Acct:[id number] Age/Sex: 83 / F ADM Date: 05/16/24 Loc: [facility] Room: Type: [facility] Attending Dr: Sheldon Xie DO Copies to: [...] Latonya Cueva M.D.05/16/2024 1:54 PM Dictation Location: [place] [address] Transcribed By: [facility] 05/16/24 1353 Dictated By: Latonya Cueva MD 05/16/24 1351 Signed By: 05/16/24 [facility] Physician GroupAlanine aminotransferase [Enzymatic activity/volume] in Serum or PlasmaOrdered By: Sheldon Xie on 10-71-2364JKN [Catalytic activity/Vol]10 U/LNormal773 Jordan StreetComment on above:Performed By: #### LIPID, CBC, CMP, TSH3 #### [facility] [address] [place] [address] USAALT [Catalytic activity/Vol]Alanine aminotransferase [Enzymatic activity/volume] in Serum or PlasmaUniversity Hospitals Conneaut Medical CenterAlbumin [Mass/volume] in Serum or Plasma by Bromocresol green (BCG) dye binding methoOrdered By: Sheldon Xie on 97-62-0928Wieaagc BCG dye [Mass/Vol]3.8 g/dL3.5-5.7FMercer County Community HospitalAlbumin BCG dye [Mass/Vol]Albumin [Mass/volume] in Serum or Plasma by Bromocresol green (BCG) dye binding metho 3.5-5.7FMercer County Community HospitalAlkaline phosphatase [Enzymatic activity/volume] in Serum or PlasmaOrdered By: Sheldon Xie on 89-40-4639UDT [Catalytic activity/Vol]73 U/EHjqltq95-172Axjojgjsg[address] Comment on above:Performed By: #### LIPID, CBC, CMP, TSH3 #### [facility] [address] [place] [address] USAALP [Catalytic activity/Vol]Alkaline phosphatase [Enzymatic activity/volume] in Serum or Pzsyqz01-284Yxzknpjyn36 Larson StreetAspartate aminotransferase [Enzymatic activity/volume] in Serum or Plasma Ordered By: Sheldon Xie on 14-21-2840FKE [Catalytic activity/Vol]16 U/LNormal 13-[facility] Medical CenterComment on above:Performed By: #### LIPID, CBC, CMP, TSH3 #### [facility] [address] [place] [address] USAAST [Catalytic activity/Vol]Aspartate aminotransferase [Enzymatic activity/volume] in Serum or Vjgduf92-07XipheuyfoUniversity Hospitals Conneaut Medical CenterAutomated basophil %Ordered By: Sheldon Xie on 11-13-8400Zyolgfwir/100 WBC (Bld)1.6 %Normal.[facility] Medical CenterComment on above:Performed By: #### LIPID, CBC, CMP, TSH3 #### [place] [address] USAAutomated basophil countOrdered By: Sheldon Xie on 17-85-7966Yodgafpjq (Bld) [#/Vol]0.2 10*3/uLNormal0.0-0.2FMercer County Community HospitalComment on above:Result Comment: PERFORMED BY: [place] [address] PATHOLOGIST OFFICE AUTOMATION TECHNICIAN JESSE ROMO M.D.Performed By: #### LIPID, CBC, CMP, TSH3 #### [place] [address] USAAutomated blood monocyte countOrdered By: Sheldon Xie on 71-22-6385Yjzrvcpni (Bld) [#/Vol]0.8 10*3/uLNormal0.0-0.8[facility] Medical CenterComment on above:Performed By: #### LIPID, CBC, CMP, TSH3 #### [place] [address] USAAutomated eosinophil %Ordered By: Sheldon Xie on 05-15-2024 Eosinophils/100 WBC (Bld)1.7 %Normal.[facility] Medical CenterComment on above:Performed By: #### LIPID, CBC, CMP, TSH3 #### [place] [address] USAAutomated eosinophil countOrdered By: Sheldon Xie on 75-05-6919Lwgihegjrvc (Bld) [#/Vol]0.2 10*3/uLNormal0.0-0.45[facility] Medical CenterComment on above:Performed By: #### LIPID, CBC, CMP, TSH3 #### [place] [address] USAAutomated monocyte %Ordered By: Sheldon Alvarezs on 05-15-2024 Monocytes/100 WBC (Bld)5.9 %Normal.[facility] Medical CenterComment on above:Performed By: #### LIPID, CBC, CMP, TSH3 #### [facility] [address] [place] [address] USAAutomated neutrophil %Ordered By: Sheldon Xie on 05-15-2024 Neutrophils/100 WBC (Bld)76.5 %Normal.[facility] Medical CenterComment on above:Performed By: #### LIPID, CBC, CMP, TSH3 #### [facility] [address] [place] [address] USABasophils Auto (Bld) [#/Vol]Ordered By: Sheldon Xie on 60-41-2036Hmpgrjltd (Bld) [#/Vol]Automated basophil count0.0-0.2FMercer County Community HospitalBasophils/100 WBC Auto (Bld)Ordered By: Sheldon Xie on 41-35-7308Iennabjjl/100 WBC (Bld)Automated basophil %.[facility] Medical CenterBilirubin.total [Mass/volume] in Serum or PlasmaOrdered By: Sheldon Xie on 97-76-7738Kxpypklpd [Mass/Vol]0.4 mg/dLNormal0.3-1.0[facility] Medical CenterComment on above:Performed By: #### LIPID, CBC, CMP, TSH3 #### [facility] [address] [place] [address] USABilirubin [Mass/Vol]Bilirubin.total [Mass/volume] in Serum or Plasma0.3-1.0[facility] Medical CenterCalcium [Mass/volume] in Serum or PlasmaOrdered By: Sheldon Xie on 21-17-0139Gemfdys [Mass/Vol]9.6 mg/dLNormal 8.6-10.3FMercer County Community HospitalComment on above:Performed By: #### LIPID, CBC, CMP, TSH3 #### [facility] [address] [place] [address] USACalcium [Mass/Vol]Calcium [Mass/volume] in Serum or Plasma 8.6-10.3FMercer County Community HospitalCarbon dioxide, total [Moles/volume] in Serum or PlasmaOrdered By: Shelodn Xie on 01-26-8573WJ5 [Moles/Vol]28.7 mmol/L Amqkpp27.0-31.0[facility] Medical CenterComment on above:Performed By: #### LIPID, CBC, CMP, TSH3 #### [facility] [address] [place] [address] USACO2 [Moles/Vol]Carbon dioxide, total [Moles/volume] in Serum or Wkzvod90.0-31.0[facility] CenterChloride [Moles/volume] in Serum or PlasmaOrdered By: Sheldon Xie on 16-42-9503Yyxwfrsw [Moles/Vol]105 mmol/ZYwpfgj27-731WkthbnlbeUniversity Hospitals Conneaut Medical CenterComment on above:Performed By: #### LIPID, CBC, CMP, TSH3 #### [facility] [address] [place] [address] USAChloride [Moles/Vol]Chloride [Moles/volume] in Serum or Datenw91-843TcxiuamptUniversity Hospitals Conneaut Medical CenterCholesterol [Mass/volume] in Serum or PlasmaOrdered By: Sheldon Xie on 69-47-5633Dyznzyofnvi [Mass/Vol]137 mg/dLLow 140-200[facility] Medical CenterComment on above:Chol less than 200 mg/dl low riskChol 201-239 mg/dl borderline riskChol 240 mg/dl and greater high riskResult Comment: Chol less than 200 mg/dl low risk Chol 201-239 mg/dl borderline risk Chol 240 mg/dl and greater high riskPerformed By: #### LIPID, CBC, CMP, TSH3 #### [facility] [address] [place] [address] USACholesterol [Mass/Vol]Cholesterol [Mass/volume] in Serum or VpkemxPnv670-375GcgxvtdmfUniversity Hospitals Conneaut Medical CenterComment on above:Chol less than 200 mg/dl low riskChol 201-239 mg/dl borderline riskChol 240 mg/dl and greater high riskCholesterol in HDL [Mass/volume] in Serum or PlasmaOrdered By: Sheldon Xie on 92-00-4699Xlrezupmmif in HDL [Mass/Vol]Serum or plasma high density lipoprotein (HDL) cholesterol nmaoscgzoug69-64NxxznevuwUniversity Hospitals Conneaut Medical CenterComment on above:HDL CHOL ATP-III CLASSIFICATION Cardiovascular RiskHDL > or equal to 60 mg/dL LOWHDL < 40 mg/dL HIGHCholesterol in LDL Calc [Mass/Vol] Ordered By: Sheldon Xie on 53-11-4535Cqyhlxexnpt in LDL [Mass/Vol]73 mg/dL0-100 [facility] CenterComment on above:LDL ATP III CLASSIFICATIONLDL less than 100 mg/dL OptimalLDL 100-129 mg/dL Near or above nurhxizCYE863-454 mg/dL Borderline highLDL 160-189 mg/dL HighLDL greater than 189 mg/dL Very high Cholesterol in LDL [Mass/Vol]Cholesterol in LDL [Mass/volume] in Serum or Plasma by calculation0-100[facility] CenterComment on above:LDL ATP III CLASSIFICATIONLDL less than 100 mg/dL OptimalLDL 100-129 mg/dL Near or above ezwigrmMPA899-899 mg/dL Borderline highLDL 160-189 mg/dL HighLDL greater than 189 mg/dL Very highCholesterol in VLDL Calc [Mass/Vol]Ordered By: Sheldon Xie on 20-88-8783Jxgmsgqwmud in VLDL [Mass/Vol]25 mg/dLUniversity Hospitals Conneaut Medical CenterCholesterol in VLDL [Mass/Vol]Cholesterol in VLDL [Mass/volume] in Serum or Plasma by calculationUniversity Hospitals Conneaut Medical CenterComplete Blood Count Auto Diffon 76-41-9465Ahtj Corpuscular HGB Conc32.9 g/cFArsaae53.0-35.0The [facility] Health Physician GroupComment on above:Performed By: #### LIPID, CBC, CMP, TSH3 #### [facility] [address] [place] [address] USANRBC%0.0 /100{WBC}Normal0-0.5[facility] Comment on above:Performed By: #### LIPID, CBC, CMP, TSH3 #### [facility] [address] [place] [address] USAComprehensive Metabolic Panelon 30-82-6657Gupdqkl [Mass/Vol]3.8 g/dLNormal3.5-5.7The [facility] Physician GroupComment on above: Performed By: #### LIPID, CBC, CMP, TSH3 #### [facility] [address] [place] [address] USAGFR/1.73 sq M.predicted MDRD (S/P/Bld) [Vol rate/Area] mL/min/{1.73_m2}NormalThe Randolph Health Physician GroupComment on above:Performed By: #### LIPID, CBC, CMP, TSH3 #### [facility] [address] [place] [address] USACreatinine [Mass/volume] in Serum or PlasmaOrdered By: Sheldon Xie on 95-22-3017Zukznfubdu [Mass/Vol]0.90 mg/dLNormal0.60-1.20[facility] CenterComment on above:Performed By: #### LIPID, CBC, CMP, TSH3 #### [facility] [address] [place] [address] USACreatinine [Mass/Vol]Creatinine [Mass/volume] in Serum or Plasma0.60-1.20[facility] Medical CenterEosinophils Auto (Bld) [#/Vol] Ordered By: Sheldon Xie on 11-88-0076Ccppnrhsdkk (Bld) [#/Vol]Automated eosinophil count0.0-0.45[facility] Medical CenterEosinophils/100 WBC Auto (Bld)Ordered By: Sheldon Xie on 24-28-8805Pqstenevnas/100 WBC (Bld)Automated eosinophil %.[facility] Medical CenterErythrocyte distribution width Auto (RBC) [Ratio]Ordered By: Sheldon Xie on 97-97-9585Xrwzujpijpo distribution width (RBC) [Ratio]Erythrocyte distribution width [Ratio] by Automated count 11.9-15.3FMercer County Community HospitalErythrocyte distribution width [Ratio] by Automated countOrdered By: Sheldon Xie on 81-15-8959Khwsawuqzqt distribution width (RBC) [Ratio]14.1 %Xruxwd77.9-15.3FMercer County Community HospitalComment on above:Performed By: #### LIPID, CBC, CMP, TSH3 #### [facility] [address] [place] [id number] USAErythrocytes [#/volume] in Blood by Automated countOrdered By: Sheldon Xie on 91-62-4494UWA (Bld) [#/Vol]3.82 10*6/uLNormal3.60-5.00 [facility] CenterComment on above:Performed By: #### LIPID, CBC, CMP, TSH3 #### [facility] [address] [place] [id number] USAGlobulin Calc (S) [Mass/Vol]Ordered By: Sheldon Xie on 03-18-8284Lnnburoc (S) [Mass/Vol]Serum globulin measurement by calculation (mass/volume)[facility] CenterGlucose [Mass/volume] in Serum or PlasmaOrdered By: Sheldon Xie on 93-38-2396Okptpds [Mass/Vol]91 mg/hVQjmwzp20-198 [facility] CenterComment on above:ADA recommended reference rangeRandom Glucose Reference [...] By: #### LIPID, CBC, CMP, TSH3 #### [facility] [address] [place] [id number] USAGlucose [Mass/Vol]Glucose [Mass/volume] in Serum or Plasma 70-100[facility] CenterComment on above:ADA recommended reference rangeRandom Glucose Reference Range is dependent on time and content of last meal. Glucose of more than 200 mg/dL in a nonstressed, ambulatory subject supports the diagnosisof Diabetes Mellitus.Hematocrit Auto (Bld) [Volume fraction]Ordered By: Sheldon Xie on 93-68-2386Dgvuudvphp (Bld) [Volume fraction] Hematocrit [Volume Fraction] of Blood by Automated count34.0-46.4FMercer County Community HospitalHematocrit [Volume Fraction] of Blood by Automated count Ordered By: Sheldon Xie on 15-10-5387Ezggvercnc (Bld) [Volume fraction]36.7 % Zzmbdp04.0-46.4FMercer County Community HospitalComment on above:Performed By: #### LIPID, CBC, CMP, TSH3 #### [facility] [address] [place] [address] USAHemoglobin [Mass/volume] in BloodOrdered By: Sheldon Xie on 82-14-8710Pqbiuqqkvy (Bld) [Mass/Vol]12.1 g/xYAuuvbc28.8-15.4FMercer County Community HospitalComment on above:Performed By: #### LIPID, CBC, CMP, TSH3 #### [facility] [address] [place] [address] USAHemoglobin (Bld) [Mass/Vol]Hemoglobin [Mass/volume] in Blood11.8-15.4FMercer County Community HospitalLeukocytes [#/volume] corrected for nucleated erythrocytes in Blood by Automated counOrdered By: Sheldon Xie on 48-01-7765RWX corrected for nucl RBC Auto (Bld) [#/Vol]12.9 10*3/uLHigh3.8-11.6 [facility] CenterWBC corrected for nucl RBC Auto (Bld) [#/Vol] Leukocytes [#/volume] corrected for nucleated erythrocytes in Blood by Automated counHigh3.8-11.6FMercer County Community HospitalLeukocytes [#/volume] in Blood by Automated countOrdered By: Sheldon Xie on 24-66-7691WUI (Bld) [#/Vol]12.9 10*3/uLHigh3.8-11.6FMercer County Community HospitalComment on above:Performed By: #### LIPID, CBC, CMP, TSH3 #### [facility] [address] [place] [address] USALipid Panelon 37-28-1309UAM Cholesterol,Cuxhaytbze44 mg/dL Normal0-100The [facility] Health Physician GroupComment on above:Result Comment: LDL ATP III CLASSIFICATION LDL less than 100 mg/dL Optimal LDL 100-129 mg/dL Near or above optimal LDL 130-159 mg/dL Borderline high LDL 160-189 mg/dL High LDL greater than 189 mg/dL Very highPerformed By: #### LIPID, CBC, CMP, TSH3 #### [facility] [address] [place] [address] USATriglyceride w/Yprhns800 mg/dLNormal0-149[facility] Physician GroupComment on above:Result Comment: TRIG ATP III CLASSIFICATION TRIG less than 150 mg/dL Normal TRIG 150-199 mg/dL Borderline high TRIG 200-500 mg/dL High TRIG greater than 500 mg/dL Very high Standard traceable to the Center for Disease Conrtrol and Prevention (CDC) test method.Performed By: #### LIPID, CBC, CMP, TSH3 #### [facility] [address] [place] [address] USAVLDL SIFTDFXTLBR89 mg/dLNormHCA Florida Fawcett Hospital Physician GroupComment on above:Performed By: #### LIPID, CBC, CMP, TSH3 #### [facility] [address] [place] [address] USALymphocytes Auto (Bld) [#/Vol]Ordered By: Sheldon Xie on 35-07-3263Toepjyeiorc (Bld) [#/Vol]Lymphocytes [#/volume] in Blood by Automated count1.00-4.8[facility] Medical CenterLymphocytes [#/volume] in Blood by Automated countOrdered By: Sheldon Xie on 07-27-8674Dzxwukobtlm (Bld) [#/Vol]1.8 10*3/uLNormal1.00-4.8[facility] CenterComment on above: Performed By: #### LIPID, CBC, CMP, TSH3 #### [place] [id number] USALymphocytes/100 WBC Auto (Bld)Ordered By: Sheldon Xie on 26-50-1832Dcfjoxjoodl/100 WBC (Bld)Lymphocytes/100 leukocytes in Blood by Automated count.[facility] Medical CenterLymphocytes/100 leukocytes in Blood by Automated countOrdered By: Sheldon Xie on 38-33-0965Vohxupmysny/100 WBC (Bld)14.3 %Normal.[facility] CenterComment on above:Performed By: #### LIPID, CBC, CMP, TSH3 #### [address] Auto (RBC) [Entitic mass]Ordered By: Sheldon Xie on 12-77-0049XYC (RBC) [Entitic mass]MCH [Entitic mass] by Automated count24.7-34.3 [facility] [Entitic mass] by Automated countOrdered By: Sheldon Xie on 97-56-6779DNQ (RBC) [Entitic mass]31.6 muVvrova55.7-34.3 [facility] CenterComment on above:Performed By: #### LIPID, CBC, CMP, TSH3 #### [facility] [address]HC Auto (RBC) [Mass/Vol]Ordered By: Sheldon Xie on 19-71-1932JCMT (RBC) [Mass/Vol]32.9 g/dL32.0-35.0[facility] HospitalHC (RBC) [Mass/Vol]MCHC [Mass/volume] by Automated count32.0-35.0 [facility] Auto (RBC) [Entitic vol]Ordered By: Sheldon Xie on 08-00-1273FAH (RBC) [Entitic vol]MCV [Entitic volume] by Automated count 80-100St. [facility] HospitalV [Entitic volume] by Automated count Ordered By: Sheldon Xie on 35-25-2191BHA (RBC) [Entitic vol]96.0 xPHjhtgg23-486 [facility] CenterComment on above:Performed By: #### LIPID, CBC, CMP, TSH3 #### [facility] [address] [place] [address] USAMonocytes Auto (Bld) [#/Vol]Ordered By: Sheldon Xie on 61-76-2041Eukgrqzni (Bld) [#/Vol]Automated blood monocyte count0.0-0.8[facility] Medical CenterMonocytes/100 WBC Auto (Bld)Ordered By: Sheldon Xie on 30-03-1165Umjzxckus/100 WBC (Bld)Automated monocyte %.[facility] Medical CenterNeutrophils Auto (Bld) [#/Vol]Ordered By: Sheldon Xie on 05-15-2024 Neutrophils (Bld) [#/Vol]Neutrophils [#/volume] in Blood by Automated countHigh 1.8-7.7FMercer County Community HospitalNeutrophils [#/volume] in Blood by Automated countOrdered By: Sheldon Xie on 20-98-2827Arijobmhubf (Bld) [#/Vol]9.8 10*3/uLHigh1.8-7.7FMercer County Community HospitalComment on above:Performed By: #### LIPID, CBC, CMP, TSH3 #### [facility] [address] [place] [address] USANeutrophils/100 WBC Auto (Bld)Ordered By: Sheldon Xie on 61-17-0625Vpwmnbabjxa/100 WBC (Bld)Automated neutrophil %.[facility] CenterNo Panel InformationOrdered By: Sheldon Xie on 73-87-5520Fvsjgtiet GFR (CKD-EPI)> 60.0 mL/MinUniversity Hospitals Conneaut Medical CenterPharmacy Creatinine Clearance (ChemN/City HospitalNucleated erythrocytes [Presence] in Blood by Automated countOrdered By: Sheldon Xie on 05-15-2024 Nucleated RBC Auto Ql (Bld)0.0 /100{WBC}0-0.5FMercer County Community Hospital Nucleated RBC Auto Ql (Bld)Nucleated erythrocytes [Presence] in Blood by Automated count0-0.5FMercer County Community HospitalPlatelet mean volume Auto (Bld) [Entitic vol]Ordered By: Sheldon Xie on 08-34-1030Dbssdqpz mean volume (Bld) [Entitic vol]Platelet mean volume [Entitic volume] in Blood by Automated count6.3-10.7FMercer County Community HospitalPlatelet mean volume [Entitic volume] in Blood by Automated countOrdered By: Sheldon Xie on 87-63-9344Wjgpurqy mean volume (Bld) [Entitic vol]7.8 fLNormal6.3-10.7FMercer County Community HospitalComment on above:Performed By: #### LIPID, CBC, CMP, TSH3 #### [facility] [address] [place] [address] USAPlatelets Auto (Bld) [#/Vol]Ordered By: Sheldon Xie on 74-91-2223Zqkdbzbps (Bld) [#/Vol]Platelets [#/volume] in Blood by Automated nqmgvZhjr491-169ZwxvaybriUniversity Hospitals Conneaut Medical CenterPlatelets [#/volume] in Blood by Automated countOrdered By: Sheldon Xie on 92-30-5411Hlfcaedsc (Bld) [#/Vol]465 10*3/cPDzit993-675JktngzmseUniversity Hospitals Conneaut Medical CenterComment on above:Performed By: #### LIPID, CBC, CMP, TSH3 #### [facility] [address] [place] [id number] USAPotassium [Moles/volume] in Serum or PlasmaOrdered By: Sheldon Xie on 21-95-5371Ockptqrsm [Moles/Vol]4.7 mmol/LNormal3.5-5.1FMercer County Community HospitalComment on above:Performed By: #### LIPID, CBC, CMP, TSH3 #### [facility] [address] [place], [place] [address] USAPotassium [Moles/Vol]Potassium [Moles/volume] in Serum or Plasma3.5-5.1FMercer County Community HospitalProtein [Mass/volume] in Serum or PlasmaOrdered By: Sheldon Xie on 40-60-7672Iiwtxev [Mass/Vol]6.7 g/dLNormal 6.4-8.9[facility] CenterComment on above:Performed By: #### LIPID, CBC, CMP, TSH3 #### [facility] [address] [place], [place] [address] USAProtein [Mass/Vol]Protein [Mass/volume] in Serum or Plasma 6.4-8.9[facility] Medical CenterRBC Auto (Bld) [#/Vol]Ordered By: Sheldon Xie on 77-71-8195JPX (Bld) [#/Vol]Erythrocytes [#/volume] in Blood by Automated count3.60-5.00Sheltering Arms Hospitalerum globulin measurement by calculation (mass/volume)Ordered By: Sheldon Xie on 42-87-7146Dyszdfrt (S) [Mass/Vol]2.9 g/dLNormalUniversity Hospitals Conneaut Medical CenterComment on above: Performed By: #### LIPID, CBC, CMP, TSH3 #### [facility] [address] [place] [address] USASerum or plasma albumin/globulin mass ratioOrdered By: Sheldon Xie on 80-91-3616Mfkssao/Globulin [Mass ratio]1.3 {ratio}NormalUniversity Hospitals Conneaut Medical CenterComment on above:Performed By: #### LIPID, CBC, CMP, TSH3 #### [facility] [address] [place] [id number] USAAlbumin/Globulin [Mass ratio]Serum or plasma albumin/globulin mass ratioSheltering Arms Hospitalerum or plasma anion gap determinationOrdered By: Sheldon Xie on 34-49-0828Vkqwj gap [Moles/Vol] 12.0 mmol/LNormal6.0-15.0[facility] CenterComment on above: Performed By: #### LIPID, CBC, CMP, TSH3 #### [facility] [address] [place] [id number] USAAnion gap [Moles/Vol]Serum or plasma anion gap determination6.0-15.0Sheltering Arms Hospitalerum or plasma high density lipoprotein (HDL) cholesterol measurementOrdered By: Sheldon Xie on 36-95-1086Sthneucyvhu in HDL [Mass/Vol]38 mg/aUYkedub95-39JssebangbUniversity Hospitals Conneaut Medical CenterComment on above:HDL CHOL ATP-III CLASSIFICATION Cardiovascular RiskHDL > or equal to 60 mg/dL LOWHDL < 40 mg/dL HIGHResult Comment: HDL CHOL ATP-III CLASSIFICATION Cardiovascular Risk HDL > or equal to 60 mg/dL LOW HDL < 40 mg/dL HIGHPerformed By: #### LIPID, CBC, CMP, TSH3 #### [facility] [address] [place] [id number] USASerum or plasma total cholesterol/high density lipoprotein (HDL) cholesterol mass ratOrdered By: Sheldon Xie on 05-15-2024 Cholesterol.total/Cholesterol in HDL [Mass ratio]3.6 {ratio}Normal<5.0[facility] CenterComment on above:Performed By: #### LIPID, CBC, CMP, TSH3 #### [facility] [address] [place] [address] USACholesterol.total/Cholesterol in HDL [Mass ratio]Serum or plasma total cholesterol/high density lipoprotein (HDL) cholesterol mass rat<5.0 [facility] Hospitalodium [Moles/volume] in Serum or PlasmaOrdered By: Sheldon Xie on 01-70-2721Fxlhrk [Moles/Vol]141 mmol/VSuovak357-178LixxfbuxeUniversity Hospitals Conneaut Medical CenterComment on above:Performed By: #### LIPID, CBC, CMP, TSH3 #### [facility] [address] [place] [address] USASodium [Moles/Vol]Sodium [Moles/volume] in Serum or Plasma 136-145[facility] Medical CenterThyrotropin [Units/volume] in Serum or PlasmaOrdered By: Sheldon Xie on 40-02-3444FAB Qn1.60 m[IU]/LNormal0.45-5.33 [facility] CenterComment on above:Result Comment: PERFORMED BY: [facility] [address] [place] [address] PATHOLOGIST OFFICE AUTOMATION TECHNICIAN JESSE ROMO M.D.Performed By: #### LIPID, CBC, CMP, TSH3 ####[facility] [place] [address] USATSH QnThyrotropin [Units/volume] in Serum or Plasma0.45-5.33[facility] Triglyceride [Mass/volume] in Serum or PlasmaOrdered By: Sheldon Xie on 81-57-6139Veqdfneesmzc [Mass/Vol]129 mg/dL0-149[facility] Comment on above:TRIG ATP III CLASSIFICATIONTRIG less than 150 mg/dL NormalTRIG 150-199 mg/dL Borderline highTRIG 200-500 mg/dL High TRIG greater than 500 mg/dL Very highStandard traceable to the Center for Disease Conrtrol and Prevention (CDC) test method.Triglyceride [Mass/Vol]Triglyceride [Mass/volume] in Serum or Plasma0-149[facility] CenterComment on above:TRIG ATP III CLASSIFICATIONTRIG less than 150 mg/dL NormalTRIG 150-199 mg/dL Borderline highTRIG 200-500 mg/dL High TRIG greater than 500 mg/dL Very highStandard traceable to the Center for Disease Conrtrol and Prevention (CDC) test method. Urea nitrogen [Mass/volume] in Serum or PlasmaOrdered By: Sheldon Xie on 60-04-1406Bjli nitrogen [Mass/Vol]25 mg/dLNormal03-21[facility] CenterComment on above:Performed By: #### LIPID, CBC, CMP, TSH3 #### [facility] [address] [place] [address] USAUrea nitrogen [Mass/Vol]Urea nitrogen [Mass/volume] in Serum or Plasma03-21[facility] Medical CenterWBC Auto (Bld) [#/Vol] Ordered By: Sheldon Xie on 55-74-4758LVL (Bld) [#/Vol]Leukocytes [#/volume] in Blood by Automated countHigh3.8-11.6FMercer County Community HospitalEstimated glomerular filtration rate (GFR) non- Americanon 22-05-3495RFR/1.73 sq M.predicted among non-blacks MDRD (S/P/Bld) [Vol rate/Area]54 mL/min/{1.73_m2} Low>=60[facility] CenterLaboratory - Chemistry and Chemistry - challengeon 75-89-5918Yeoeuyx [Mass/Vol]9.5 mg/dL8.5-10.1FMercer County Community HospitalCreatinine [Mass/Vol]0.98 mg/dL0.55-1.02[facility] CenterGFR/1.73 sq M.predicted MDRD (S/P/Bld) [Vol rate/Area]mL/min/{1.73_m2} >=60[facility] CenterXR hip LT 1Von 86-89-2785ZW hip LT 1V [facility] [address] [place] [address] [place] [address] XRay Report Signed Patient: Aleksandr Sanchez MR#: [id number] : 1940 Acct:[id number] Age/Sex: 83 / F ADM Date: 11/20/23 [facility] CLI Attending Dr: Sheldon Xie DO [...] Latonya Cueva M.D.11/20/2023 3:17 PM Dictation Location: [place] [address] Transcribed By: [facility] 11/20/23 1517 Dictated By: Latonya Cueva MD 11/20/23 1515 Signed By: 11/20/23 [facility] Physician GroupAlanine aminotransferase [Enzymatic activity/volume] in Serum or PlasmaOrdered By: Sheldon Xie on 99-62-9406BUO [Catalytic activity/Vol]12 U/L7-52[facility] Medical CenterAlbumin [Mass/volume] in Serum or Plasma by Bromocresol green (BCG) dye binding methoOrdered By: Sheldon Xie on 13-33-8743Jdvewfg BCG dye [Mass/Vol]4.1 g/dL3.5-5.7FMercer County Community HospitalAlkaline phosphatase [Enzymatic activity/volume] in Serum or PlasmaOrdered By: Sheldon Xie on 32-07-2167OIN [Catalytic activity/Vol]54 U/E84-925MqsdvjkizUniversity Hospitals Conneaut Medical CenterAspartate aminotransferase [Enzymatic activity/volume] in Serum or PlasmaOrdered By: Sheldon Xie on 79-67-0112DNT [Catalytic activity/Vol]18 U/H60-35AcxkiqaceUniversity Hospitals Conneaut Medical CenterBasophils Auto (Bld) [#/Vol]Ordered By: Sheldon Xie on 09-26-2023 Basophils (Bld) [#/Vol]0.1 10*3/uL0.0-0.2FMercer County Community Hospital Basophils/100 WBC Auto (Bld)Ordered By: Sheldon Xie on 57-41-5919Sruwuhsnr/100 WBC (Bld)1.2 %.[facility] Medical CenterBilirubin.total [Mass/volume] in Serum or PlasmaOrdered By: Sheldon Xie on 73-34-1848Pncxjjixs [Mass/Vol]0.3 mg/dL0.3-1.0[facility] Medical CenterCalcium [Mass/volume] in Serum or PlasmaOrdered By: Sheldon Xie on 60-61-2235Oeaxxhx [Mass/Vol]9.4 mg/dL8.6-10.3 [facility] Medical CenterCarbon dioxide, total [Moles/volume] in Serum or PlasmaOrdered By: Sheldon Xie on 41-47-4136QC4 [Moles/Vol]29.7 mmol/L21.0-31.0 [facility] Medical CenterChloride [Moles/volume] in Serum or Plasma Ordered By: Sheldon Xie on 25-41-4929Oroketbm [Moles/Vol]111 mmol/L98-107 [facility] Medical CenterCholesterol [Mass/volume] in Serum or Plasma Ordered By: Sheldon Xie on 53-62-5329Bjphuhrbgrr [Mass/Vol]170 mg/aD684-393 [facility] CenterComment on above:Chol less than 200 mg/dl low riskChol 201-239 mg/dl borderline riskChol 240 mg/dl and greater high risk Cholesterol in LDL Calc [Mass/Vol]Ordered By: Sheldon Xie on 09-26-2023 Cholesterol in LDL [Mass/Vol]96 mg/dL0-100[facility] Comment on above:LDL ATP III CLASSIFICATIONLDL less than 100 mg/dL OptimalLDL 100-129 mg/dL Near or above sgrmbulDGT189-594 mg/dL Borderline highLDL 160-189 mg/dL HighLDL greater than 189 mg/dL Very highCholesterol in VLDL Calc [Mass/Vol]Ordered By: Sheldon Xie on 57-22-1452Kzgnohvxuzf in VLDL [Mass/Vol]22 mg/dLUniversity Hospitals Conneaut Medical CenterCreatinine [Mass/volume] in Serum or PlasmaOrdered By: Sheldon Xie on 75-44-1805Ywbthagatg [Mass/Vol]1.02 mg/dL 0.60-1.20[facility] Medical CenterEosinophils Auto (Bld) [#/Vol]Ordered By: Sheldon Xie on 59-74-0064Eiboyoytxfh (Bld) [#/Vol]0.4 10*3/uL0.0-0.45 [facility] CenterEosinophils/100 WBC Auto (Bld)Ordered By: Sheldon Xie on 71-42-1359Tdxniegcbvp/100 WBC (Bld)4.5 %.[facility] Medical CenterErythrocyte distribution width Auto (RBC) [Ratio]Ordered By: Sheldon Xie on 99-78-9613Xxztcgxgusc distribution width (RBC) [Ratio]14.0 %11.9-15.3FMercer County Community HospitalGlobulin Calc (S) [Mass/Vol]Ordered By: Sheldon Xie on 09-79-7067Mlxpqksz (S) [Mass/Vol]2.5 g/dLUniversity Hospitals Conneaut Medical Center Glucose [Mass/volume] in Serum or PlasmaOrdered By: Sheldon Xie on 09-26-2023 Glucose [Mass/Vol]92 mg/pE91-591BdudnmnbpUniversity Hospitals Conneaut Medical CenterComment on above:ADA recommended reference rangeRandom Glucose Reference Range is dependent on time and content of last meal. Glucose of more than 200 mg/dL in a nonstressed, ambulatory subject supports the diagnosisof Diabetes Mellitus. Hematocrit Auto (Bld) [Volume fraction]Ordered By: Sheldon Xie on 09-26-2023 Hematocrit (Bld) [Volume fraction]38.6 %34.0-46.4FMercer County Community HospitalHemoglobin [Mass/volume] in BloodOrdered By: Sheldon Xie on 09-26-2023 Hemoglobin (Bld) [Mass/Vol]12.4 g/dL11.8-15.4FMercer County Community Hospital Leukocytes [#/volume] corrected for nucleated erythrocytes in Blood by Automated counOrdered By: Sheldon Xie on 29-59-1410HVH corrected for nucl RBC Auto (Bld) [#/Vol]8.1 10*3/uL3.8-11.6FMercer County Community HospitalLymphocytes Auto (Bld) [#/Vol]Ordered By: Sheldon Xie on 34-80-8893Iomdihogimw (Bld) [#/Vol]2.1 10*3/uL1.00-4.8[facility] CenterLymphocytes/100 WBC Auto (Bld) Ordered By: Sheldon Xie on 38-11-1473Nyrscjngxcc/100 WBC (Bld)26.4 %.[facility]H Auto (RBC) [Entitic mass]Ordered By: Sheldon Xie on 19-08-2779TWM (RBC) [Entitic mass]31.2 pg24.7-34.3FMercer County Community HospitalMCHC Auto (RBC) [Mass/Vol]Ordered By: Sheldon Xie on 55-84-1358LBCI (RBC) [Mass/Vol]32.1 g/dL32.0-35.0[facility] CenterMCV Auto (RBC) [Entitic vol]Ordered By: Sheldon Xie on 52-22-5012DCK (RBC) [Entitic vol]97.2 fL 80-100[facility] CenterMonocytes Auto (Bld) [#/Vol]Ordered By: Sheldon Xie on 95-45-0227Uvjlsgdxl (Bld) [#/Vol]0.6 10*3/uL0.0-0.8[facility] CenterMonocytes/100 WBC Auto (Bld)Ordered By: Sheldon Xie on 31-22-5361Naorlllxf/100 WBC (Bld)8.0 %.[facility] Neutrophils Auto (Bld) [#/Vol]Ordered By: Sheldon Xie on 98-19-8428Mmdllatxsix (Bld) [#/Vol]4.9 10*3/uL1.8-7.7FMercer County Community HospitalNeutrophils/100 WBC Auto (Bld)Ordered By: Sheldon Xie on 10-69-1666Ebtwpwalqfp/100 WBC (Bld)59.9 %.[facility] CenterNo Panel InformationOrdered By: Sheldon Xie on 08-85-1106Tuohxlyyb GFR (CKD-EPI)54.927 mL/MinUniversity Hospitals Conneaut [facility] Center [facility] Creatinine Clearance (ChemN/AFMercer County Community HospitalNucleated erythrocytes [Presence] in Blood by Automated countOrdered By: Sheldon Xie on 69-15-0135Piorekudx RBC Auto Ql (Bld)0.1 /100{WBC}0-0.5FMercer County Community HospitalPlatelet mean volume Auto (Bld) [Entitic vol]Ordered By: Sheldon Xie on 58-15-9689Olevdnzd mean volume (Bld) [Entitic vol]8.4 fL6.3-10.7 [facility] CenterPlatelets Auto (Bld) [#/Vol]Ordered By: Sheldon Xie on 73-54-1316Ozqogbddp (Bld) [#/Vol]324 10*3/oT764-303OpthvauqbUniversity Hospitals Conneaut Medical CenterPotassium [Moles/volume] in Serum or PlasmaOrdered By: Sheldon Xie on 02-97-8879Upanggteh [Moles/Vol]4.8 mmol/L3.5-5.1FMercer County Community HospitalProtein [Mass/volume] in Serum or PlasmaOrdered By: Sheldon Xie on 14-69-9161Kwvevsg [Mass/Vol]6.6 g/dL6.4-8.9[facility] CenterRBC Auto (Bld) [#/Vol]Ordered By: Sheldon Xie on 17-00-6499VER (Bld) [#/Vol]3.97 10*6/uL3.60-5.00[facility] Hospitalerum or plasma albumin/globulin mass ratioOrdered By: Sheldon Xie on 06-81-5477Aqgyoeq/Globulin [Mass ratio]1.6 {ratio}[facility] Hospitalerum or plasma anion gap determinationOrdered By: Sheldon Xie on 03-35-3444Ujivg gap [Moles/Vol]10.1 mmol/L6.0-15.0[facility] Hospitalerum or plasma high density lipoprotein (HDL) cholesterol measurementOrdered By: Sheldon Xie on 09-26-2023 Cholesterol in HDL [Mass/Vol]52 mg/gP14-67GmkaiendmUniversity Hospitals Conneaut Medical Center Comment on above:HDL CHOL ATP-III CLASSIFICATION Cardiovascular RiskHDL > or equal to 60 mg/dL LOWHDL < 40 mg/dL HIGHSerum or plasma total cholesterol/high density lipoprotein (HDL) cholesterol mass ratOrdered By: Sheldon Xie on 15-47-3294Eoafsybehch.total/Cholesterol in HDL [Mass ratio]3.3 {ratio}<5.0 [facility] Hospitalodium [Moles/volume] in Serum or PlasmaOrdered By: Sheldon Xie on 28-03-8728Ityqwl [Moles/Vol]146 mmol/K896-676OwvoollitUniversity Hospitals Conneaut Medical CenterThyrotropin [Units/volume] in Serum or PlasmaOrdered By: Sheldon Xie on 13-85-9951VDL Qn2.47 m[IU]/L0.45-5.33[facility] CenterTriglyceride [Mass/volume] in Serum or PlasmaOrdered By: Sheldon Xie on 34-33-2130Lsrxdigsiwwz [Mass/Vol]112 mg/dL0-149[facility] Comment on above:TRIG ATP III CLASSIFICATIONTRIG less than 150 mg/dL NormalTRIG 150-199 mg/dL Borderline highTRIG 200-500 mg/dL High TRIG greater than 500 mg/dL Very highStandard traceable to the Center for Disease Conrtrol and Prevention (CDC) test method.Urea nitrogen [Mass/volume] in Serum or PlasmaOrdered By: Sheldon Xie on 62-24-5189Ersm nitrogen [Mass/Vol]30 mg/dL7-[facility] CenterWBC Auto (Bld) [#/Vol]Ordered By: Sheldon Xie on 32-06-7874UKH (Bld) [#/Vol]8.1 10*3/uL3.8-11.6FMercer County Community HospitalAlanine aminotransferase [Enzymatic activity/volume] in Serum or PlasmaOrdered By: Sheldon Xie on 82-35-6051CUU [Catalytic activity/Vol]13 U/L7-52[facility] CenterAlbumin [Mass/volume] in Serum or Plasma by Bromocresol green (BCG) dye binding methoOrdered By: Sheldon Xie on 36-66-8467Dtiisau BCG dye [Mass/Vol]4.2 g/dL3.5-5.7FMercer County Community HospitalAlkaline phosphatase [Enzymatic activity/volume] in Serum or PlasmaOrdered By: Sheldon Xie on 51-67-0924DGJ [Catalytic activity/Vol]55 U/O12-730GkcxkjzjdUniversity Hospitals Conneaut Medical CenterAspartate aminotransferase [Enzymatic activity/volume] in Serum or Plasma Ordered By: Sheldon Xie on 81-44-6836UIC [Catalytic activity/Vol]20 U/L13-39 [facility] CenterBasophils Auto (Bld) [#/Vol]Ordered By: Sheldon Xie on 35-54-1684Zmchminae (Bld) [#/Vol]0.1 10*3/uL0.0-0.2FMercer County Community HospitalBasophils/100 WBC Auto (Bld)Ordered By: Sheldon Xie on 05-24-2023 Basophils/100 WBC (Bld)1.0 %.[facility] CenterBilirubin.total [Mass/volume] in Serum or PlasmaOrdered By: Sheldon Xie on 36-89-7190Oflwuiinc [Mass/Vol]0.5 mg/dL0.3-1.0[facility] CenterCalcium [Mass/volume] in Serum or PlasmaOrdered By: Sheldon Xie on 17-60-9130Mmslpoc [Mass/Vol]9.9 mg/dL8.6-10.3FMercer County Community HospitalCarbon dioxide, total [Moles/volume] in Serum or PlasmaOrdered By: Sheldon Xie on 69-70-8908SZ8 [Moles/Vol]32.5 mmol/L21.0-31.0[facility] CenterChloride [Moles/volume] in Serum or PlasmaOrdered By: Sheldon Xie on 94-39-0772Dyvzyvmm [Moles/Vol]108 mmol/R74-325KrvljksseUniversity Hospitals Conneaut Medical CenterCholesterol [Mass/volume] in Serum or PlasmaOrdered By: Sheldon Xie on 46-14-0125Vwtycchxubl [Mass/Vol]176 mg/rU519-759WqutmjbupUniversity Hospitals Conneaut Medical CenterComment on above:Chol less than 200 mg/dl low riskChol 201-239 mg/dl borderline riskChol 240 mg/dl and greater high riskCholesterol in LDL Calc [Mass/Vol]Ordered By: Sheldon Xie on 60-33-1583Qwezwoifmdd in LDL [Mass/Vol]96 mg/dL0-100[facility] CenterComment on above:LDL ATP III CLASSIFICATIONLDL less than 100 mg/dL OptimalLDL 100-129 mg/dL Near or above jplmmrtFYH099-147 mg/dL Borderline highLDL 160-189 mg/dL HighLDL greater than 189 mg/dL Very highCholesterol in VLDL Calc [Mass/Vol]Ordered By: Sheldon Xie on 41-78-7867Hpjjlksrhjq in VLDL [Mass/Vol]23 mg/dLUniversity Hospitals Conneaut Medical CenterCreatinine [Mass/volume] in Serum or PlasmaOrdered By: Sheldon Xie on 71-90-7925Wshduiynbb [Mass/Vol]0.92 mg/dL0.60-1.20[facility] CenterEosinophils Auto (Bld) [#/Vol] Ordered By: Sheldon Xie on 43-23-4697Viqqhfogdyw (Bld) [#/Vol]0.3 10*3/uL0.0-0.45 [facility] CenterEosinophils/100 WBC Auto (Bld)Ordered By: Sheldon Xie on 04-99-5508Xoorvenbiga/100 WBC (Bld)3.9 %.[facility] CenterErythrocyte distribution width Auto (RBC) [Ratio]Ordered By: Sehldon Xie on 65-19-6450Tvgmcuqnlxk distribution width (RBC) [Ratio]13.6 %11.9-15.3FMercer County Community HospitalGlobulin Calc (S) [Mass/Vol]Ordered By: Sheldon Xie on 55-90-9407Yanjugxz (S) [Mass/Vol]2.5 g/dLUniversity Hospitals Conneaut Medical Center Glucose [Mass/volume] in Serum or PlasmaOrdered By: Sheldon Xie on 05-24-2023 Glucose [Mass/Vol]90 mg/jP43-615KualilzmiUniversity Hospitals Conneaut Medical CenterComment on above:ADA recommended reference rangeRandom Glucose Reference Range is dependent on time and content of last meal. Glucose of more than 200 mg/dL in a nonstressed, ambulatory subject supports the diagnosisof Diabetes Mellitus. Hematocrit Auto (Bld) [Volume fraction]Ordered By: Sheldon Xie on 05-24-2023 Hematocrit (Bld) [Volume fraction]39.0 %34.0-46.4FMercer County Community HospitalHemoglobin [Mass/volume] in BloodOrdered By: Sheldon Xie on 05-24-2023 Hemoglobin (Bld) [Mass/Vol]12.7 g/dL11.8-15.4FMercer County Community Hospital Leukocytes [#/volume] corrected for nucleated erythrocytes in Blood by Automated counOrdered By: Sheldon Xie on 73-98-8447VLT corrected for nucl RBC Auto (Bld) [#/Vol]7.3 10*3/uL3.8-11.6FMercer County Community HospitalLymphocytes Auto (Bld) [#/Vol]Ordered By: Sheldon Xie on 06-71-6704Lnvkwjuxzxs (Bld) [#/Vol]1.8 10*3/uL1.00-4.8[facility] CenterLymphocytes/100 WBC Auto (Bld) Ordered By: Sheldon Xie on 79-48-0822Fziwyliddrr/100 WBC (Bld)24.8 %.[facility] HospitalH Auto (RBC) [Entitic mass]Ordered By: Sheldon Xie on 72-42-8094QND (RBC) [Entitic mass]31.8 pg24.7-34.3FMercer County Community HospitalMCHC Auto (RBC) [Mass/Vol]Ordered By: Sheldon Xie on 59-42-2044AJYB (RBC) [Mass/Vol]32.7 g/dL32.0-35.0[facility] CenterMCV Auto (RBC) [Entitic vol]Ordered By: Sheldon Xie on 73-11-3371FDU (RBC) [Entitic vol]97.2 fL 80-100[facility] CenterMonocytes Auto (Bld) [#/Vol]Ordered By: Sheldon Xie on 27-21-3610Oimmochvr (Bld) [#/Vol]0.7 10*3/uL0.0-0.8[facility] CenterMonocytes/100 WBC Auto (Bld)Ordered By: Sheldon Xie on 65-31-1458Uxcurpvtq/100 WBC (Bld)9.5 %.[facility] Neutrophils Auto (Bld) [#/Vol]Ordered By: Sheldon Xie on 47-40-1095Nawafjgsuhr (Bld) [#/Vol]4.4 10*3/uL1.8-7.7FMercer County Community HospitalNeutrophils/100 WBC Auto (Bld)Ordered By: Sheldon Xie on 43-82-6079Gkmodlruxpc/100 WBC (Bld)60.8 %.[facility] CenterNo Panel InformationOrdered By: Sheldon Xie on 31-25-1987Ocxrlfwse GFR (CKD-EPI)> 60.0 mL/MinUniversity Hospitals Conneaut Medical Center Pharmacy Creatinine Clearance (ChemN/City HospitalNucleated erythrocytes [Presence] in Blood by Automated countOrdered By: Sheldon Xie on 77-41-2650Ktktuafwc RBC Auto Ql (Bld)0.1 /100{WBC}0-0.5FMercer County Community HospitalPlatelet mean volume Auto (Bld) [Entitic vol]Ordered By: Sheldon Xie on 61-77-4581Ehecrsrp mean volume (Bld) [Entitic vol]8.5 fL6.3-10.7 [facility] CenterPlatelets Auto (Bld) [#/Vol]Ordered By: Sheldon Xie on 35-81-7834Pxrouqwsf (Bld) [#/Vol]303 10*3/oN750-053DyrftwvbaUniversity Hospitals Conneaut Medical CenterPotassium [Moles/volume] in Serum or PlasmaOrdered By: Sheldon Xie on 75-21-7864Iplxwytft [Moles/Vol]4.5 mmol/L3.5-5.1FMercer County Community HospitalProtein [Mass/volume] in Serum or PlasmaOrdered By: Sheldon Xie on 20-66-9417Tebhbmr [Mass/Vol]6.7 g/dL6.4-8.9[facility] Medical CenterRBC Auto (Bld) [#/Vol]Ordered By: Sheldon Xie on 04-11-5474FWF (Bld) [#/Vol]4.01 10*6/uL3.60-5.00[facility] Hospitalerum or plasma albumin/globulin mass ratioOrdered By: Sheldon Xie on 00-50-8551Egpnqto/Globulin [Mass ratio]1.7 {ratio}[facility] Hospitalerum or plasma anion gap determinationOrdered By: Sheldon Xie on 75-11-7130Ifoln gap [Moles/Vol]8.0 mmol/L6.0-15.0[facility] Hospitalerum or plasma high density lipoprotein (HDL) cholesterol measurementOrdered By: Sheldon Xie on 05-24-2023 Cholesterol in HDL [Mass/Vol]57 mg/aI16-35PmzfjfhpsUniversity Hospitals Conneaut Medical Center Comment on above:HDL CHOL ATP-III CLASSIFICATION Cardiovascular RiskHDL > or equal to 60 mg/dL LOWHDL < 40 mg/dL HIGHSerum or plasma total cholesterol/high density lipoprotein (HDL) cholesterol mass ratOrdered By: Sheldon Xie on 27-45-9983Mxfilcngwru.total/Cholesterol in HDL [Mass ratio]3.1 {ratio}<5.0 [facility] Hospitalodium [Moles/volume] in Serum or PlasmaOrdered By: Sheldon Xie on 89-98-3091Sgjlbv [Moles/Vol]144 mmol/E451-294XsfxsawrxUniversity Hospitals Conneaut Medical CenterThyrotropin [Units/volume] in Serum or PlasmaOrdered By: Sheldon Xie on 03-52-6144LMZ Qn2.85 m[IU]/L0.45-5.33[facility] Medical CenterTriglyceride [Mass/volume] in Serum or PlasmaOrdered By: Sheldon Xie on 86-45-0574Nlsiioperopj [Mass/Vol]115 mg/dL0-149[facility] Comment on above:TRIG ATP III CLASSIFICATIONTRIG less than 150 mg/dL NormalTRIG 150-199 mg/dL Borderline highTRIG 200-500 mg/dL High TRIG greater than 500 mg/dL Very highStandard traceable to the Center for Disease Conrtrol and Prevention (CDC) test method.Urea nitrogen [Mass/volume] in Serum or PlasmaOrdered By: Sheldon Xie on 70-80-7674Uhbw nitrogen [Mass/Vol]29 mg/dL7-25[facility] CenterWBC Auto (Bld) [#/Vol]Ordered By: Sheldon Xie on 50-75-3590YFV (Bld) [#/Vol]7.3 10*3/uL3.8-11.6FMercer County Community HospitalCALCIUMon 62-88-2643Msnkfof [Mass/Vol]9.4 mg/dLNormal8.5-10.1The [facility] HospitalComment on above:Performed By: #### [place] #### [facility] [address] [place] [address] Dr. Mayank Bledsoe 98-23-4202Gwtzbxelid [Mass/Vol]1.06 mg/dLCritically high0.55-1.02[facility] on above:Performed By: #### [place] #### [facility] [address] [place] [address] Dr. Talley ChangEGFR-AF LUXEMBOURGER=60Normal>=60The [facility] HospitalComment on above:Performed By: #### [place] #### [facility] [address] [place] [address] Dr. Mayank MadrigalGFR-NON AF ZVTKITJK11 mL/min/1.83d8Iwkwabvnvy low>=60[facility] on above:Performed By: #### [place] #### [facility] [address] [place] [address] Dr. Mayank KhanCALCIUMdanny 12-67-8338Sonvyiv [Mass/Vol]9.8 mg/dLNormal8.5-10.1[facility] on above:Performed By: #### [place] #### [facility] [address] [place] [address] Dr. Mayank Bledsoe 63-95-1343Fpvbtyxzuw [Mass/Vol]0.77 mg/dLNormal 0.55-1.02[facility] on above:Performed By: #### [place] #### [facility] [address] [place] [address] Dr. Yilan ChangEGFR-AF LUXEMBOURGER>60Normal>=60The [facility] HospitalComment on above:Performed By: #### [place] #### [facility] [address] [place], [place] [address] Dr. Mayank MadrigalGFR-NON AF LUXEMBOURGER>60Normal>=60The [facility] HospitalComment on above:Performed By: #### [place] #### [facility] [address] [place], [place] [address] Dr. Talley ChangBasophils Auto (Bld) [#/Vol]Ordered By: Sheldon Xie on 09-29-2022 Basophils (Bld) [#/Vol]0.1 10*3/uL0.0-0.2FMercer County Community Hospital Basophils/100 WBC Auto (Bld)Ordered By: Sheldon Xie on 73-80-8742Seahjweqq/100 WBC (Bld)0.9 %.[facility] CenterBody fluid albumin measurement (mass/volume)Ordered By: Sheldon Xie on 71-91-6601Exkjrwd (Body fld) [Mass/Vol] 4.2 g/dL3.2-5.5FMercer County Community HospitalCholesterol [Mass/volume] in Serum or PlasmaOrdered By: Sheldon Xie on 91-45-7774Gxvdggirumw [Mass/Vol]182 mg/kO162-049TfiylcbtwUniversity Hospitals Conneaut Medical CenterComment on above:Chol less than 200 mg/dl low riskChol 201-239 mg/dl borderline riskChol 240 mg/dl and greater high riskCholesterol in LDL Calc [Mass/Vol]Ordered By: Sheldon Xie on 09-29-2022 Cholesterol in LDL [Mass/Vol]105 mg/dL0-100[facility] Comment on above:LDL ATP III CLASSIFICATIONLDL less than 100 mg/dL OptimalLDL 100-129 mg/dL Near or above kbnubouCIA312-411 mg/dL Borderline highLDL 160-189 mg/dL HighLDL greater than 189 mg/dL Very highCholesterol in VLDL Calc [Mass/Vol]Ordered By: Sheldon Xie on 27-91-5309Yvixjhoxsoi in VLDL [Mass/Vol]17 mg/dLUniversity Hospitals Conneaut Medical CenterComplete Blood Count Auto Diffon 69-23-9395Pcaknplvw (Bld) [#/Vol]0.606314947 10*3/uLNormal0.0-0.2 10*3/[place] Other Basophils/100 WBC (Bld)0.900 %. %sfilatino Other Eosinophils (Bld) [#/Vol]0.678796107 10*3/uLNormal0.0- 0.45 10*3/[place] Other Eosinophils/100 WBC (Bld)2.700 %. %sfilatino Other Erythrocyte distribution width (RBC) [Ratio]14.400 % Hxfach65.9-15.3 %sfilatino Other Hematocrit (Bld) [Volume fraction]39.000 %Lihwww42.0- 46.4 %sfilatino Other Hemoglobin (Bld) [Mass/Vol]12.194764 g/kWXchymc99.8- 15.4 g/dLNoE-[employer] Group Other Lymphocytes (Bld) [#/Vol]1.894335507 10*3/uLNormal 1.00-4.8 10*3/[place] Other Lymphocytes/100 WBC (Bld)25.800 %. %sfilatino Other MCH (RBC) [Entitic mass]31.1000 lnLjpfhm58.7-34.3 pg sfilatino Other MCV (RBC) [Entitic vol]97.1000 xZOzlhmc47-372 fLsfilatino Other Monocytes (Bld) [#/Vol]0.534399186 10*3/uLNormal0.0- 0.8 10*3/[place] Other Monocytes/100 WBC (Bld)8.200 %. %sfilatino Other Neutrophils (Bld) [#/Vol]4.458064336 10*3/uLNormal1.8- 7.7 10*3/[place] Other Neutrophils/100 WBC (Bld)62.400 %. %sfilatino Other Platelet mean volume (Bld) [Entitic vol]8.2000 fL Normal6.3-10.7 fLJeffersonville [facility] Program Other WBC (Bld) [#/Vol]7.543002949 10*3/uLNormal3.8-11.6 10*3/[place] Other Complete Blood Count Auto Diff7.4 10*3/uLNormal3.8- 11.6 10*3/[place] Other Complete Blood Count Auto Diff32.1 g/dFFgmegh10.0-35.0 g/dLE-Trader Group Other Complete Blood Count Auto Diff0.1 /100{WBC}Normal0-0.5 /100{WBC}sfilatino Other Comprehensive Metabolic Panelon 30-51-7056Hymaxzq [Mass/Vol]4.895276 g/dLNormal3.2-5.5 g/dLE-[employer] Other ALT [Catalytic activity/Vol]16 U/ODzyqos48-38 U/LNcooper county memorial hospital [facility] Other Bilirubin [Mass/Vol]0.0448489 mg/dLNormal0.3-1.2 mg/dL sfilatino Other Calcium [Mass/Vol]9.3037615 mg/dLNormal8.2-10.2 mg/dL [facility] Other CO2 [Moles/Vol]24.88010607 mmol/XOfjukt14.0-30.0 mmol/LNcooper county memorial hospital [facility] Other Creatinine [Mass/Vol]0.34793120 mg/dLNormal0.44-1.03 mg/dLJeffersonville [facility] Other Potassium [Moles/Vol]4.25975208 mmol/LNormal3.5-5.1 mmol/LNcooper county memorial hospital [facility] Other Protein [Mass/Vol]6.631025 g/dLNormal6.1-7.9 g/dLJeffersonville [facility] Other Comprehensive Metabolic Panel> 60[place] Other Comprehensive Metabolic Panel2.5 g/dLJeffersonville [facility] Program Other Creatinine and Glomerular filtration rate.predicted panel (S/P/Bld)Ordered By: Sheldon Xie on 76-24-6689Xulzuazpjo [Mass/Vol]0.84 mg/dL0.44-1.03[facility] CenterEosinophils Auto (Bld) [#/Vol] Ordered By: Sheldon Xie on 92-31-4617Zxifrkutbhi (Bld) [#/Vol]0.2 10*3/uL0.0-0.45 [facility] CenterEosinophils/100 WBC Auto (Bld)Ordered By: Sheldon Xie on 69-99-8603Hqnnmfbelpw/100 WBC (Bld)2.7 %.[facility] Medical CenterErythrocyte distribution width Auto (RBC) [Ratio]Ordered By: Sheldon Xie on 20-41-5334Doqeoplgknh distribution width (RBC) [Ratio]14.4 %11.9-15.3FMercer County Community HospitalErythrocytes [#/volume] in Blood by Automated count Ordered By: Sheldon Xie on 65-92-0204MYU (Bld) [#/Vol]4.02 10*6/uL3.60-5.00 [facility] CenterEstimated glomerular filtration rate (GFR) non- AmericanOrdered By: Sheldon Xie on 72-82-3746ZRV/1.73 sq M.predicted among non-blacks MDRD (S/P/Bld) [Vol rate/Area]> 60 mL/MinUniversity Hospitals Conneaut Medical CenterGlobulin Calc (S) [Mass/Vol]Ordered By: Sheldon Xie on 09-29-2022 Globulin (S) [Mass/Vol]2.5 g/dLUniversity Hospitals Conneaut Medical CenterHematocrit Auto (Bld) [Volume fraction]Ordered By: Sheldon Xie on 07-49-1404Ifqzbossvs (Bld) [Volume fraction]39.0 %34.0-46.4FMercer County Community HospitalHemoglobin [Mass/volume] in BloodOrdered By: Sheldon Xie on 32-81-6877Qezanffnmn (Bld) [Mass/Vol]12.5 g/dL11.8-15.4FMercer County Community HospitalLeukocytes [#/volume] corrected for nucleated erythrocytes in Blood by Automated coun Ordered By: Sheldon Xie on 52-72-1144JQB corrected for nucl RBC Auto (Bld) [#/Vol]7.4 10*3/uL3.8-11.6FMercer County Community HospitalLipid Panelon 53-27-3242Dvbfnculmtd in LDL Elph Qn105 mg/dLHigh0-100 mg/dLNoYoubei Game [employer] Program Other Lipid Panel89 mg/fPXdtyaq81-769 mg/dLNoE-[employer] Other Lipid Panel17 mg/dLNoE-[employer] Other Lymphocytes Auto (Bld) [#/Vol]Ordered By: Sheldon Xie on 38-57-9162Gzulhvxafwn (Bld) [#/Vol]1.9 10*3/uL1.00-4.8[facility] CenterLymphocytes/100 WBC Auto (Bld)Ordered By: Sheldon Xie on 09-29-2022 Lymphocytes/100 WBC (Bld)25.8 %.[facility] HospitalH Auto (RBC) [Entitic mass]Ordered By: Sheldon Xie on 19-59-5906GCE (RBC) [Entitic mass]31.1 pg24.7-34.3FMercer County Community HospitalMCHC Auto (RBC) [Mass/Vol]Ordered By: Sheldon Xie on 84-70-5917JGLH (RBC) [Mass/Vol]32.1 g/dL32.0-35.0[facility] CenterMCV Auto (RBC) [Entitic vol]Ordered By: Sheldon Xie on 83-09-7365VFE (RBC) [Entitic vol]97.1 wV05-554DuyoporbvUniversity Hospitals Conneaut Medical Center Monocytes Auto (Bld) [#/Vol]Ordered By: Sheldon Xie on 74-71-4975Elwsulnfz (Bld) [#/Vol]0.6 10*3/uL0.0-0.8[facility] CenterMonocytes/100 WBC Auto (Bld)Ordered By: Sheldon Xie on 45-17-5707Qkcmyjcrc/100 WBC (Bld)8.2 %.[facility] Medical CenterNeutrophils Auto (Bld) [#/Vol]Ordered By: Sheldon Xie on 64-65-5306Njfxsibeshx (Bld) [#/Vol]4.7 10*3/uL1.8-7.7FMercer County Community HospitalNeutrophils/100 WBC Auto (Bld)Ordered By: Sheldon Xie on 09-29-2022 Neutrophils/100 WBC (Bld)62.4 %.[facility] CenterNo Panel InformationOrdered By: Sammie Duran on 467768-Ijrughp Vitamin D Total 74.2 ng/bT86-989CnigosmvvUniversity Hospitals Conneaut Medical CenterComment on above:VITAMIN D STATUS 25(OH)VITAMIN D RANGE (ng/mL) Deficient <20 Insufficient 20 to <26Ohlwffxudn20 to 100Reference: Baldo MF,Raina LORENZO, Juan HOLLOWAY, et al. Evaluation,treatment, and prevention of vitamin D deficiency; an Endocrine Society clinical practice guideline. JCEM. 2010; 96(7):1911-30.No Panel InformationOrdered By: Sheldon Xie on 77-20-4514Acjryxvty GFR ()> 60 mL/MinUniversity Hospitals Conneaut Medical CenterComment on above:GFR estimated reference range: According to KDOQI guidelines, <60 ml/min/1.73m2 is sufficient todiagnose a patient with chronic kidney disease.Pharmacy Creatinine Clearance (ChemN/City HospitalNucleated erythrocytes [Presence] in Blood by Automated countOrdered By: Sheldon Xie on 05-20-1267Dcdoedsgd RBC Auto Ql (Bld)0.1 /100{WBC}0-0.5FMercer County Community HospitalParathyroid Hormone [place] 80-56-0609Uiuncyddijv Hormone Plnida07.1 pg/yNRcuwnc57-47 pg/mLNPodcast Ready Other Platelet mean volume Auto (Bld) [Entitic vol]Ordered By: Sheldon Xie on 94-16-8224Edjhpuak mean volume (Bld) [Entitic vol]8.2 fL 6.3-10.7FMercer County Community HospitalPlatelets [#/volume] in Blood by Automated countOrdered By: Sheldon Xie on 97-78-3652Uaxhlmnbu (Bld) [#/Vol]285 10*3/tK083-772JxilrvblhUniversity Hospitals Conneaut Medical CenterProtein [Mass/volume] in Serum or PlasmaOrdered By: Sheldon Xie on 92-32-6284Zmxyeqz [Mass/Vol]6.7 g/dL6.1-7.9 Sheltering Arms Hospitalerum or plasma alanine aminotransferase measurement without P-5'-P (enzymatic activiOrdered By: Sheldon Xie on 09-29-2022 ALT No additional P-5'-P [Catalytic activity/Vol]16 U/Z71-14MqfoucwhwSheltering Arms Hospitalerum or plasma albumin/globulin mass ratioOrdered By: Sheldon Xie on 45-53-3725Cjrgbpi/Globulin [Mass ratio]1.7 {ratio}[facility]tering [facility] Hospitalerum or plasma alkaline phosphatase measurement (enzymatic activity/volume)Ordered By: Sheldon Xie on 23-30-8588SBU [Catalytic activity/Vol] 41 U/U06-31NnkopfpbbSheltering Arms Hospitalerum or plasma anion gap determinationOrdered By: Sheldon Xie on 64-19-0684Zxvau gap [Moles/Vol]14.1 mmol/L6.0-15.0Sheltering Arms Hospitalerum or plasma aspartate aminotransferase measurement (enzymatic activity/volume)Ordered By: Sheldon Xie on 78-48-7755VAV [Catalytic activity/Vol]22 U/D82-50UvfpyktepSheltering Arms Hospitalerum or plasma calcium measurement (mass/volume)Ordered By: Sheldon Xie on 51-45-4114Mxatnux [Mass/Vol]9.7 mg/dL8.2-10.2FMercer County Community Hospital Serum or plasma chloride measurement (moles/volume)Ordered By: Sheldon Xie on 85-22-1465Rggvqbdk [Moles/Vol]105 mmol/M67-693KcrctudzsUniversity Hospitals Conneaut Medical Center Serum or plasma glucose measurement (mass/volume)Ordered By: Sheldon Xie on 46-15-0305Xltbwir [Mass/Vol]78 mg/rL25-439HxagxdbrpUniversity Hospitals Conneaut Medical Center Comment on above:ADA recommended reference rangeRandom Glucose Reference Range is dependent on time and content of last meal. Glucose of more than 200 mg/dL in a nonstressed, ambulatory subject supports the diagnosisof Diabetes Mellitus. Serum or plasma high density lipoprotein (HDL) cholesterol measurementOrdered By: Sheldon Xie on 71-54-4965Puhgrxtgcrx in HDL [Mass/Vol]59 mg/yY74-67CbbqiqwylUniversity Hospitals Conneaut Medical CenterComment on above:HDL CHOL ATP-III CLASSIFICATION Cardiovascular RiskHDL > or equal to 60 mg/dL LOWHDL < 40 mg/dL HIGHSerum or plasma intact parathyroid hormone measurement (mass/volume)Ordered By: Sammie Duran on 63-19-4058Rwxyikbmlx.intact [Mass/Vol]50.1 pg/gK81-52JjnejshvhSheltering Arms Hospitalerum or plasma potassium measurement (moles/volume) Ordered By: Sheldon Xie on 40-43-1189Rlncxydnc [Moles/Vol]4.6 mmol/L3.5-5.1 Shel[facility] Hospitalerum or plasma sodium measurement (moles/volume)Ordered By: Sheldon Xie on 03-15-2603Hhakqx [Moles/Vol]139 mmol/L 136-146Sheltering Arms Hospitalerum or plasma total bilirubin measurement (mass/volume)Ordered By: Sheldon Xie on 28-56-7449Vghlclrko [Mass/Vol]0.7 mg/dL0.3-1.2FTrinity Health System East Campuserum or plasma total carbon dioxide measurement (moles/volume)Ordered By: Sheldon Xie on 09-29-2022 CO2 [Moles/Vol]24.5 mmol/L22.0-30.0S[facility]tering Arms Hospitalerum or plasma total cholesterol/high density lipoprotein (HDL) cholesterol mass rat Ordered By: Sheldon Xie on 10-55-6970Sccddwymkvf.total/Cholesterol in HDL [Mass ratio]3.1 {ratio}<5.0Sheltering Arms Hospitalerum or plasma urea nitrogen measurement (mass/volume)Ordered By: Sheldon Xie on 06-01-4215Dext nitrogen [Mass/Vol]23 mg/dL9-23University Hospitals Conneaut Medical CenterTSH DL <= 0.005 mIU/L QnOrdered By: Sheldon Xie on 84-41-8403RUJ Qn1.86 m[IU]/L0.45-5.33University [facility]als Conneaut Medical CenterThyroid Stimulating Hormoneon 00-53-3719KLX Qn 1.03997091524 m[IU]/LNormal0.45-5.33 u[iU]/mLNcooper county memorial hospital [employer] Other Triglyceride [Mass/volume] in Serum or PlasmaOrdered By: Sheldon Xie on 58-38-2828Gapgqqjsyuwn [Mass/Vol]89 mg/lF82-160ZymljxscxUniversity Hospitals Conneaut Medical CenterComment on above:TRIG ATP III CLASSIFICATIONTRIG less than 150 mg/dL NormalTRIG 150-199 mg/dL Borderline highTRIG 200-500 mg/dL High TRIG greater than 500 mg/dL Very highStandard traceable to the Center for Disease Conrtrol and Prevention (CDC) test method.Vitamin D 25 Hydroxy Totalon 30-40-2688Upisvqy D 25 Hydroxy Total74.2 ng/aYQjozfj76-626 ng/mLNcooper county memorial hospital [employer] Program Other WBC Auto (Bld) [#/Vol]Ordered By: Sheldon Xie on 56-33-6477OSQ (Bld) [#/Vol]7.4 10*3/uL3.8-11.6FMercer County Community Hospital XR foot RT min 3V*on 29-84-8507HZ foot RT min 3V*[facility] [employer] Other XR foot RT min 3V*[facility] [employer] Other XR foot RT min 3V*[address] [place] [address] [employer] Other XR foot RT min 3V*[place] [address]Bxhhg [employer] Other XR foot RT min 3V*XRay [facility] [employer] Other XR foot RT min 3V*[facility] [employer] Other XR foot RT min 3V*Patient: Aleksandr Sanchez MR#: [id number] [employer] Other XR foot RT min 3V*[id number] [employer] Other XR foot RT min 3V*: 1940 Acct:[id number] [employer] Other XR foot RT min 3V*Age/Sex: 82 / F ADM Date: 09/15/22 [place] [employer] Other XR foot RT min 3V*Loc: SOXD Room: Type: [facility] [employer] Other XR foot RT min 3V*Attending Dr: Sammie Duran NP-[facility] [employer] Other XR foot RT min 3V*Copies to: ANJEL Richards sfilatino Other XR foot RT min 3V*Ordering Provider: SALLIE Richards-[facility]YFl[facility] [employer] Other XR foot RT min 3V*Date of Service: 09/15/22[place] [employer] Other XR foot RT min 3V* XR/XR foot RT min 3V*: S92.351[facility] [employer] Other XR foot RT min 3V*XR foot RT min 3V* 09/15/2022 1:17 PM [place] [employer] Other XR foot RT min 3V*SIGNS AND SYMPTOMS: Follow-up with mildly displaced fifth metatarsal fractureJeffersonville [employer] Program Other XR foot RT min 3V*PROTOCOL: Frontal, lateral, and oblique radiographs of the right footNofitzgibbon hospital [employer] [facility] Other XR foot RT min 3V*COMPARISON: 09/01/2022[place] [employer] Other XR foot RT min 3V*FINDINGS:sfilatino Other XR foot RT min 3V*There is redemonstration of an obliquely oriented fracture of the proximal shaft of the fifthJeffersonville [employer] [facility] Other XR foot RT min 3V*metatarsal. There is no significant interval healing. No change in alignment. No additionalNofitzgibbon hospital [employer] Program Other XR foot RT min 3V*fractures. Findings suggest a remote healed fracture of the second metatarsal.sfilatino Other XR foot RT min 3V* XR/XR foot RT min 3V*sfilatino Other XR foot RT min 3V*IMPRESSION:sfilatino Other XR foot RT min 3V*metatarsal. There is no significant interval healing. No change in alignment.[facility] [employer] Other XR foot RT min 3V*Impression dictated by: Gray Mukherjee M.D.09/15/2022 2:05 PMNFlushing Hospital Medical Center [employer] Other XR foot RT min 3V*Dictation Location: [address] [employer] Other XR foot RT min 3V*Transcribed By: BRANDON 09/15/[address] [place] [address] [employer] Other XR foot RT min 3V*Dictated By: Gray Mukherjee II, MD 09/15/[address] [place] [address] [employer] Other XR foot RT min 3V*Signed By:[facility] [employer] Other XR foot RT min 3V*09/15/[address] [place] [address] [employer] Other XR foot RT min 3V*on 09-67-9845RS foot RT min 3V* [facility] [employer] Other XR foot RT min 3V*[facility] [employer] Other XR foot RT min 3V*[address] [place] [address] [employer] Other XR foot RT min 3V*[place], [place] [address]ZhboeEvergreenhealth [employer] Other XR foot RT min 3V*XRay ReportEvergreenhealth [employer] Other XR foot RT min 3V*SignedJeffersonville [employer] [facility] Other XR foot RT min 3V*Patient: Aleksandr Sanchez MR#: [id number] [employer] Other XR foot RT min 3V*[id number] [employer] Other XR foot RT min 3V*: 1940 Acct:[id number] [employer] Other XR foot RT min 3V*Age/Sex: 82 / F ADM Date: 09/01/22 s[employer] Other XR foot RT min 3V*[facility]: Type: [facility] [employer] Other XR foot RT min 3V*Attending Dr: Sheldon Xie [facility] [employer] Other XR foot RT min 3V*Copies to: Sheldon Xie,[facility] HospitalElastica Other XR foot RT min 3V*Ordering Provider: Sheldon Xie DO [employer] Other XR foot RT min 3V*Date of Service: 09/01/22[place] [employer] Other XR foot RT min 3V* XR/XR foot RT min 3V*: Injury of right foot, initial encounter;Right footNofitzgibbon hospital [employer] [facility] Other XR foot RT min 3V*painJeff[place] [employer] Program Other XR foot RT min 3V*RIGHT FOOT - 3 viewsHca Midwest DivisionForever Other XR foot RT min 3V*CLINICAL HISTORY: Bilateral foot pain, swelling and bruising for one day.sfilatino Other XR foot RT min 3V*COMPARISON: Right foot 08/12/2015 s[employer] Other XR foot RT min 3V*FINDINGS:sfilatino Other XR foot RT min 3V*No focal soft tissue abnormality. No radiopaque foreign body. There is a mildly displaced fractureE-[employer] Other XR foot RT min 3V*involving the shaft of the fifth metatarsal. No additional fractures are seen. No bony erosions.sfilatino Other XR foot RT min 3V* XR/XR foot RT min 3V*sfilatino Other XR foot RT min 3V*IMPRESSION:sfilatino Other XR foot RT min 3V*MILDLY DISPLACED FRACTURE INVOLVING THE SHAFT OF THE FIFTH METATARSAL.sfilatino Other XR foot RT min 3V*Impression dictated by: Rusty Sepulveda Jr., DMeghanOMeghan09/01/2022 2:57 PMNcooper county memorial hospital [employer] Program Other XR foot RT min 3V*Dictation Location: [id number] [employer] Other XR foot RT min 3V*Transcribed By: PWS 09/01/22 [facility] sfilatino Other XR foot RT min 3V*Dictated By: Rusty Sepulveda Jr DO 09/01/[address] [place] [address] [employer] Other XR foot RT min 3V*Signed By:sfilatino Other XR foot RT min 3V*09/01/22 [facility] Other COVID Quick Testingon 02-43-0738NnlpwyWzkzvlavGwxdd [employer] Program Other Quick Fluon 34-89-3187OOAZO Ab CF (S) [Titer]Negative [place] [employer] Other FLUBV Ab CF (S) [Titer]NegativeJefferson[place] INTEX Program Other Albumin [Mass/volume] in Serum or PlasmaOrdered By: Sheldon Xie on 49-80-9825Zkfhinn [Mass/Vol]3.8 g/dL3.2-5.5FMercer County Community HospitalBasophils Auto (Bld) [#/Vol]Ordered By: Sheldon Xie on 06-16-2022 Basophils (Bld) [#/Vol]0.1 10*3/uL0.0-0.2FMercer County Community Hospital Basophils/100 WBC Auto (Bld)Ordered By: Sheldon Xie on 30-07-9458Xmhacqpuf/100 WBC (Bld)1.0 %.[facility] Medical CenterCreatinine and Glomerular filtration rate.predicted panel (S/P/Bld)Ordered By: Sheldon Xie on 06-16-2022 Creatinine [Mass/Vol]0.75 mg/dL0.44-1.03[facility] Eosinophils Auto (Bld) [#/Vol]Ordered By: Sheldon Xie on 19-66-4291Ztigxyaznxv (Bld) [#/Vol]0.4 10*3/uL0.0-0.45[facility] Medical CenterEosinophils/100 WBC Auto (Bld)Ordered By: Sheldon Xie on 18-61-3458Fqqakvvycop/100 WBC (Bld)5.8 %.[facility]aut Medical CenterErythrocyte distribution width Auto (RBC) [Ratio]Ordered By: Sheldon Xie on 55-89-5036Rfifijsmzlz distribution width (RBC) [Ratio]13.9 %11.9-15.3FMercer County Community HospitalEstimated glomerular filtration rate (GFR) non- AmericanOrdered By: Sheldon Xie on 06-16-2022 GFR/1.73 sq M.predicted among non-blacks MDRD (S/P/Bld) [Vol rate/Area]> 60 mL/MinUniversity Hospitals Conneaut Medical CenterGlobulin Calc (S) [Mass/Vol]Ordered By: Sheldon Xie on 04-35-0661Szaifhbc (S) [Mass/Vol]3.0 g/dLUniversity Hospitals Conneaut Medical CenterHematocrit Auto (Bld) [Volume fraction]Ordered By: Sheldon Xie on 67-98-9955Kgspeljwjf (Bld) [Volume fraction]41.1 %34.0-46.4FMercer County Community HospitalHemoglobin [Mass/volume] in BloodOrdered By: Sheldon Xie on 67-21-7684Qflzfuaznm (Bld) [Mass/Vol]13.1 g/dL11.8-15.4FMercer County Community HospitalLaboratory - Hematology and Cell countsOrdered By: Sheldon Xie on 45-80-9775Gzxhmxuqp RBC/100 WBC (Bld) [Ratio]0.1 %0-0.5FMercer County Community HospitalLeukocytes [#/volume] in Blood by Automated countOrdered By: Sheldon Xie on 92-88-7293TYJ (Bld) [#/Vol]6.0 10*3/uL4.5-11.0[facility] Hospit[facility] Conneaut Medical CenterLymphocytes Auto (Bld) [#/Vol]Ordered By: Sheldon Xie on 06-16-2022 Lymphocytes (Bld) [#/Vol]1.9 10*3/uL1.00-4.8[facility] Lymphocytes/100 WBC Auto (Bld)Ordered By: Sheldon Xie on 06-16-2022 Lymphocytes/100 WBC (Bld)32.1 %.[facility] HospitalH Auto (RBC) [Entitic mass]Ordered By: Sheldon Xie on 12-50-9442VLG (RBC) [Entitic mass]32.0 pg24.7-34.3FMercer County Community HospitalMCHC Auto (RBC) [Mass/Vol]Ordered By: Sheldon Xie on 40-95-9637NUVH (RBC) [Mass/Vol]32.0 g/dL32.0-35.0[facility] Medical CenterMCV Auto (RBC) [Entitic vol]Ordered By: Sheldon Xie on 37-26-1030ZJH (RBC) [Entitic vol]99.9 wG13-466LmlyqfxofUniversity Hospitals Conneaut Medical Center Monocytes Auto (Bld) [#/Vol]Ordered By: Sheldon Xie on 57-05-5232Iokrxhkiq (Bld) [#/Vol]0.6 10*3/uL0.0-0.8[facility] Medical CenterMonocytes/100 WBC Auto (Bld)Ordered By: Sheldon Xie on 53-34-2202Xtmaydfei/100 WBC (Bld)9.6 %.[facility] Conneaut Medical CenterNeutrophils Auto (Bld) [#/Vol]Ordered By: Sheldon Xie on 54-06-2489Tlribvowzuh (Bld) [#/Vol]3.1 10*3/uL1.8-7.7FMercer County Community HospitalNeutrophils/100 WBC Auto (Bld)Ordered By: Sheldon Xie on 06-16-2022 Neutrophils/100 WBC (Bld)51.5 %.[facility] Medical CenterNo Panel InformationOrdered By: Sheldon Xie on 97-91-8094Apezjdmdo GFR ()> 60 mL/MinUniversity Hospitals Conneaut Medical CenterComment on above:GFR estimated reference range: According to KDOQI guidelines, <60 ml/min/1.73m2 is sufficient todiagnose a patient with chronic kidney disease.Pharmacy Creatinine Clearance (ChemN/City HospitalPlatelet mean volume Auto (Bld) [Entitic vol]Ordered By: Sheldon Xie on 81-94-4150Cmunjcre mean volume (Bld) [Entitic vol]9.2 fL6.3-10.7FMercer County Community HospitalPlatelets Auto (Bld) [#/Vol]Ordered By: Sheldon Xie on 43-99-4532Manldnykg (Bld) [#/Vol]361 10*3/uL 150-450[facility] Medical CenterProtein [Mass/volume] in Serum or Plasma Ordered By: Sheldon Xie on 75-51-1973Uyqqipy [Mass/Vol]6.8 g/dL6.1-7.9[facility] Medical CenterRBC Auto (Bld) [#/Vol]Ordered By: Sheldon Xie on 88-24-7700EQW (Bld) [#/Vol]4.11 10*6/uL3.60-5.00[facility] Hospitalerum or plasma alanine aminotransferase measurement without P-5'-P (enzymatic activiOrdered By: Sheldon Xie on 96-85-2439QMW No additional P-5'-P [Catalytic activity/Vol]13 U/M00-91RtxjlogjkSheltering Arms Hospitalerum or plasma albumin/globulin mass ratioOrdered By: Sheldon Xie on 06-16-2022 Albumin/Globulin [Mass ratio]1.3 {ratio}[facility] Hospitalerum or plasma alkaline phosphatase measurement (enzymatic activity/volume)Ordered By: Sheldon Xie on 11-13-7642SHS [Catalytic activity/Vol]44 U/S71-02AovjzxhxfSheltering Arms Hospitalerum or plasma anion gap determinationOrdered By: Sheldon Xie on 11-91-9914Xicgx gap [Moles/Vol]11.1 mmol/L6.0-15.0[facility] Hospitalerum or plasma aspartate aminotransferase measurement (enzymatic activity/volume)Ordered By: Sheldon Xie on 79-22-7612ODB [Catalytic activity/Vol] 23 U/B46-94OmspilldbSheltering Arms Hospitalerum or plasma calcium measurement (mass/volume)Ordered By: Sheldon Xie on 34-79-4715Adeciaf [Mass/Vol]9.7 mg/dL 8.2-10.2FTrinity Health System East Campuserum or plasma chloride measurement (moles/volume)Ordered By: Sheldon Xie on 34-71-4280Mkplejbu [Moles/Vol]109 mmol/L 95-114Sheltering Arms Hospitalerum or plasma glucose measurement (mass/volume)Ordered By: Sheldon Xie on 41-73-1772Osdoiot [Mass/Vol]95 mg/dL 70-100[facility] CenterComment on above:ADA recommended reference rangeRandom Glucose Reference Range is dependent on time and content of last meal. Glucose of more than 200 mg/dL in a nonstressed, ambulatory subject supports the diagnosisof Diabetes Mellitus.Serum or plasma potassium measurement (moles/volume)Ordered By: Sheldon Xie on 48-21-6930Epkljntsx [Moles/Vol]4.3 mmol/L3.5-5.1FTrinity Health System East Campuserum or plasma sodium measurement (moles/volume)Ordered By: Sheldon Xie on 78-85-8449Youwuo [Moles/Vol]143 mmol/M827-390EazoellpbSheltering Arms Hospitalerum or plasma total bilirubin measurement (mass/volume)Ordered By: Sheldon Xie on 06-16-2022 Bilirubin [Mass/Vol]0.8 mg/dL0.3-1.2FTrinity Health System East Campuserum or plasma total carbon dioxide measurement (moles/volume)Ordered By: Sheldon Xie on 57-77-6900HZ6 [Moles/Vol]27.2 mmol/L22.0-30.0[facility] Serum or plasma urea nitrogen measurement (mass/volume)Ordered By: Sheldon Xie on 48-87-8950Nldj nitrogen [Mass/Vol]14 mg/dL9-[facility] Creatinine and Glomerular filtration rate.predicted panel (S/P/Bld)Ordered By: Sheldon Xie on 44-45-9998Qgogbzkeck [Mass/Vol]0.81 mg/dL0.44-1.03[facility] CenterEstimated glomerular filtration rate (GFR) non- AmericanOrdered By: Sheldon Xie on 32-96-3258IMW/1.73 sq M.predicted among non- blacks MDRD (S/P/Bld) [Vol rate/Area]> 60 mL/MinUniversity Hospitals Conneaut Medical CenterNo Panel InformationOrdered By: Sheldon Xie on 66-86-3032Poicxnfkp GFR ()> 60 mL/MinUniversity Hospitals Conneaut Medical CenterComment on above: GFR estimated reference range: According to KDOQI guidelines, <60 ml/min/1.73m2 is sufficient todiagnose a patient with chronic kidney disease.Pharmacy Creatinine Clearance ([facility]N/[facility] Daytonerum or plasma urea nitrogen measurement (mass/volume)Ordered By: Sheldon Xie on 04-77-5208Abkb nitrogen [Mass/Vol]19 mg/dL-[facility] Medical CenterPULMONARY FUNCTION TESTon 14-97-6324HHQQCQKLI FUNCTION TESTPULMONARY FUNCTION TEST STUDY DATE: 04/05/2022 [...] minute oxygen with activity/ambulation. Clinical correlation required.NormalThe Genesis HospitalAlbumin [Mass/volume] in Serum or PlasmaOrdered By: Sheldon Xie on 89-11-6961Pqugsko [Mass/Vol]4.1 g/dL 3.2-5.5FMercer County Community HospitalBasophils Auto (Bld) [#/Vol]Ordered By: Sheldon Xie on 86-54-7587Lolvcxwpv (Bld) [#/Vol]0.1 10*3/uL0.0-0.2FMercer County Community HospitalBasophils/100 WBC Auto (Bld)Ordered By: Sheldon Xie on 43-48-3423Ptwnkkago/100 WBC (Bld)1.0 %.[facility] Medical CenterBlood hemoglobin measurement (mass/volume)Ordered By: Sheldon Xie on 04-01-2022 Hemoglobin (Bld) [Mass/Vol]13.4 g/dL11.8-15.4FMercer County Community Hospital Blood leukocytes automated count (number/volume)Ordered By: Sheldon Xie on 61-82-1632GEY (Bld) [#/Vol]8.5 10*3/uL4.5-11.0[facility] Cholesterol [Mass/volume] in Serum or PlasmaOrdered By: Sheldon Xie on 04-01-2022 Cholesterol [Mass/Vol]175 mg/rH247-541JbrvpilzyUniversity Hospitals Conneaut Medical CenterComment on above:Chol less than 200 mg/dl low risk Chol 201-239 mg/dl borderline risk Chol 240 mg/dl and greater high riskChol less than 200 mg/dl low riskChol 201- 239 mg/dl borderline riskChol 240 mg/dl and greater high riskCholesterol in LDL Calc [Mass/Vol]Ordered By: Sheldon Xie on 69-52-9856Mkeixzcefym in LDL [Mass/Vol] 110 mg/dL0-100Fire[facility] Regional Medical CenterComment on above:LDL ATP III CLASSIFICATION LDL less than 100 mg/dL Optimal LDL 100-129 mg/dL Near or above optimal LDL 130-159 mg/dL Borderline high LDL 160-189 mg/dL High LDL greater than 189 mg/dL Very highLDL ATP III CLASSIFICATIONLDL less than 100 mg/dL OptimalLDL 100-129 mg/dL Near or above cutnttyZLI803-495 mg/dL Borderline highLDL 160-189 mg/dL HighLDL greater than 189 mg/dL Very highCholesterol in VLDL Calc [Mass/Vol]Ordered By: Sheldon Xie on 31-47-9202Squyhqfybnh in VLDL [Mass/Vol]14 mg/dLUniversity Hospitals Conneaut Medical CenterCreatinine and Glomerular filtration rate.predicted panel (S/P/Bld)Ordered By: Sheldon Xie on 04-01-2022 Creatinine [Mass/Vol]0.93 mg/dL0.44-1.03[facility] Eosinophils Auto (Bld) [#/Vol]Ordered By: Sheldon Xie on 80-16-3936Syqttrajdgc (Bld) [#/Vol]0.3 10*3/uL0.0-0.45[facility] Medical CenterEosinophils/100 WBC Auto (Bld)Ordered By: Sheldon Xie on 95-77-0403Ojxjauaifrq/100 WBC (Bld)3.2 %.[facility] Medical CenterErythrocyte distribution width Auto (RBC) [Ratio]Ordered By: Sheldon Xie on 60-54-3888Htyejlugjud distribution width (RBC) [Ratio]14.1 %11.9-15.3FMercer County Community HospitalEstimated glomerular filtration rate (GFR) non- AmericanOrdered By: Sheldon Xie on 04-01-2022 GFR/1.73 sq M.predicted among non-blacks MDRD (S/P/Bld) [Vol rate/Area]58 mL/Min [facility] Medical CenterGlobulin Calc (S) [Mass/Vol]Ordered By: Sheldon Xie on 94-57-2560Kurfctwz (S) [Mass/Vol]2.7 g/dLUniversity Hospitals Conneaut Medical CenterHematocrit Auto (Bld) [Volume fraction]Ordered By: Sheldon Xie on 13-20-3466Mgrvazkuuw (Bld) [Volume fraction]41.7 %34.0-46.4FMercer County Community HospitalLaboratory - Hematology and Cell countsOrdered By: Sheldon Xie on 01-74-8076Cnbrgteif RBC/100 WBC (Bld) [Ratio]0.0 %0-0.5FMercer County Community HospitalLymphocytes Auto (Bld) [#/Vol]Ordered By: Sheldon Xie on 04-01-2022 Lymphocytes (Bld) [#/Vol]1.6 10*3/uL1.00-4.8[facility] Lymphocytes/100 WBC Auto (Bld)Ordered By: Sheldon Xie on 04-01-2022 Lymphocytes/100 WBC (Bld)18.4 %.[facility] HospitalH Auto (RBC) [Entitic mass]Ordered By: Sheldon Xie on 69-42-0063KDR (RBC) [Entitic mass]30.9 pg24.7-34.3FMercer County Community HospitalMCHC Auto (RBC) [Mass/Vol]Ordered By: Sheldon Xie on 32-91-0729UOKG (RBC) [Mass/Vol]32.1 g/dL32.0-35.0[facility] Medical CenterMCV Auto (RBC) [Entitic vol]Ordered By: Sheldon Xie on 09-09-4786EEN (RBC) [Entitic vol]96.5 bD14-685LvlnkbfydUniversity Hospitals Conneaut Medical Center Monocytes Auto (Bld) [#/Vol]Ordered By: Sheldon Xie on 80-68-6465Ijrldjnlv (Bld) [#/Vol]0.7 10*3/uL0.0-0.8[facility] CenterMonocytes/100 WBC Auto (Bld)Ordered By: Sheldon Xie on 21-77-4451Vdftdabxa/100 WBC (Bld)8.2 %.[facility] Medical CenterNeutrophils Auto (Bld) [#/Vol]Ordered By: Sheldon Xie on 22-14-4388Sfcqccboybl (Bld) [#/Vol]5.8 10*3/uL1.8-7.7FMercer County Community HospitalNeutrophils/100 WBC Auto (Bld)Ordered By: Sheldon Xie on 04-01-2022 Neutrophils/100 WBC (Bld)69.2 %.[facility] CenterNo Panel InformationOrdered By: Sheldon Xie on 80-64-7468Guuzqwzmq GFR ()> 60 mL/MinUniversity Hospitals Conneaut Medical CenterComment on above:GFR estimated reference range: According to KDOQI guidelines, <60 ml/min/1.73m2 is sufficient todiagnose a patient with chronic kidney disease.Pharmacy Creatinine Clearance (ChemN/City HospitalPlatelet mean volume Auto (Bld) [Entitic vol]Ordered By: Sheldon Xie on 19-73-7825Dmzidpkg mean volume (Bld) [Entitic vol]9.2 fL6.3-10.7FMercer County Community HospitalPlatelets Auto (Bld) [#/Vol]Ordered By: Sheldon Xie on 94-28-0008Uqowshxwk (Bld) [#/Vol]300 10*3/uL 150-450[facility] CenterProtein [Mass/volume] in Serum or Plasma Ordered By: Sheldon Xie on 88-55-8357Byiwccg [Mass/Vol]6.8 g/dL6.1-7.9[facility] Medical CenterRBC Auto (Bld) [#/Vol]Ordered By: Sheldon Xie on 85-41-4999IWX (Bld) [#/Vol]4.33 10*6/uL3.60-5.00S[facility] Hospitalerum or plasma alanine aminotransferase measurement without P-5'-P (enzymatic activiOrdered By: Sheldon Xie on 42-59-5309AFG No additional P-5'-P [Catalytic activity/Vol]15 U/T30-73UqbstlzbrSheltering Arms Hospitalerum or plasma albumin/globulin mass ratioOrdered By: Sheldon Xie on 04-01-2022 Albumin/Globulin [Mass ratio]1.5 {ratio}[facility] Hospitalerum or plasma alkaline phosphatase measurement (enzymatic activity/volume)Ordered By: Sheldon Xie on 47-61-7213GBX [Catalytic activity/Vol]49 U/P69-18HlqktyjpzSheltering Arms Hospitalerum or plasma aspartate aminotransferase measurement (enzymatic activity/volume)Ordered By: Sheldon Xie on 45-10-6088YNC [Catalytic activity/Vol]22 U/I97-66LhtqhkkdpSheltering Arms Hospitalerum or plasma calcium measurement (mass/volume)Ordered By: Sheldon Xie on 43-50-4255Qsurtbz [Mass/Vol] 10.4 mg/dL8.2-10.2FTrinity Health System East Campuserum or plasma chloride measurement (moles/volume)Ordered By: Sheldon Xie on 93-89-6164Msgtywyr [Moles/Vol]106 mmol/Y05-550FoaqmwziqSheltering Arms Hospitalerum or plasma glucose measurement (mass/volume)Ordered By: Sheldon Xie on 44-88-7331Wutbmxz [Mass/Vol]92 mg/wH80-684CyyvvozfoUniversity Hospitals Conneaut Medical CenterComment on above:ADA recommended reference range Random Glucose [...] (HDL) cholesterol measurementOrdered By: Sheldon Xie on 36-60-2664Eachbcgiwpg in HDL [Mass/Vol]51 mg/bL65-41CkaqzbespUniversity Hospitals Conneaut Medical CenterComment on above:HDL CHOL ATP-III CLASSIFICATION Cardiovascular Risk HDL > or equal to 60 mg/dL LOW HDL < 40 mg/dL HIGHHDL CHOL ATP-III CLASSIFICATION Cardiovascular RiskHDL > or equal to 60 mg/dL LOWHDL < 40 mg/dL HIGHSerum or plasma potassium measurement (moles/volume)Ordered By: Sheldon Xie on 66-26-7866Jfvgzcegh [Moles/Vol]4.5 mmol/L3.5-5.1FTrinity Health System East Campuserum or plasma sodium measurement (moles/volume)Ordered By: Sheldon Xie on 10-30-1074Hkoczk [Moles/Vol]142 mmol/L 136-146Sheltering Arms Hospitalerum or plasma total bilirubin measurement (mass/volume)Ordered By: Sheldon Xie on 10-28-6431Manxiykoy [Mass/Vol]0.6 mg/dL0.3-1.2FTrinity Health System East Campuserum or plasma total carbon dioxide measurement (moles/volume)Ordered By: Sheldon Xie on 04-01-2022 CO2 [Moles/Vol]27.2 mmol/L22.0-30.0Sheltering Arms Hospitalerum or plasma total cholesterol/high density lipoprotein (HDL) cholesterol mass rat Ordered By: Sheldon Xie on 35-18-4070Dquxvzdgjmh.total/Cholesterol in HDL [Mass ratio]3.4 {ratio}<5.0S[facility]tering Arms Hospitalerum or plasma urea nitrogen measurement (mass/volume)Ordered By: Sheldon Xie on 68-55-5736Rcev nitrogen [Mass/Vol]29 mg/dL9-23[facility] CenterTS DL <= 0.005 mIU/L QnOrdered By: Sheldon Xie on 55-69-5567CYM Qn2.53 m[IU]/L0.45-5.33[facility] Medical CenterTriglyceride [Mass/volume] in Serum or PlasmaOrdered By: Sheldon Xie on 70-96-4029Cwuunwkqxxkz [Mass/Vol]71 mg/hW03-514HfnhndrfcUniversity Hospitals Conneaut Medical CenterComment on above:TRIG ATP III CLASSIFICATION TRIG less [...] panel (S/P/Bld) Ordered By: Sheldon Xie on 19-26-1586Mgpmwcgqyw [Mass/Vol]0.64 mg/dL0.44-1.03 [facility] CenterEstimated glomerular filtration rate (GFR) non- AmericanOrdered By: Sheldon Xie on 65-55-7972YFE/1.73 sq M.predicted among non-blacks MDRD (S/P/Bld) [Vol rate/Area]> 60 mL/MinUniversity Hospitals Conneaut Medical CenterNo Panel InformationOrdered By: Sheldon Xie on 92-25-5623Hniyffyaa GFR ()> 60 mL/MinUniversity Hospitals Conneaut Medical CenterComment on above:GFR estimated reference range: According to KDOQI guidelines, <60 ml/min/1.73m2 is sufficient todiagnose a patient with chronic kidney disease. Pharmacy Creatinine Clearance (ChemN/[facility] Daytonerum or plasma calcium measurement (mass/volume)Ordered By: Sheldon Xie on 02-09-2022 Calcium [Mass/Vol]10.0 mg/dL8.2-10.2FTrinity Health System East Campuserum or plasma chloride measurement (moles/volume)Ordered By: Sheldon Xie on 02-09-2022 Chloride [Moles/Vol]103 mmol/A51-707EcwsqnjujSheltering Arms Hospitalerum or plasma glucose measurement (mass/volume)Ordered By: Sheldon Xie on 02-09-2022 Glucose [Mass/Vol]95 mg/wJ21-548MdeszmwlfUniversity Hospitals Conneaut Medical CenterComment on above:ADA recommended reference range Random Glucose Reference Range is dependent on time and content of last meal. Glucose of more than 200 mg/dL in a nonstressed, ambulatory subject supports the diagnosis of Diabetes Mellitus.Serum or plasma potassium measurement (moles/volume)Ordered By: Sheldon Xie on 44-22-6992Vtfciwlnd [Moles/Vol]4.0 mmol/L3.5-5.1FTrinity Health System East Campuserum or plasma sodium measurement (moles/volume)Ordered By: Sheldon Xie on 13-08-8668Tjpwhv [Moles/Vol]141 mmol/L 136-146S[facility] Hospitalerum or plasma total carbon dioxide measurement (moles/volume)Ordered By: Sheldon Xie on 25-87-4554JT7 [Moles/Vol] 26.5 mmol/L22.0-30.0[facility] Hospitalerum or plasma urea nitrogen measurement (mass/volume)Ordered By: Sheldon Xie on 55-56-7818Ubpq nitrogen [Mass/Vol]18 mg/dL9-23[facility] CenterOffice Visit (Cardiology)on 38-24-3370Zhmvbj-up visitDiagnoses/Problems Assessed COPD (chronic obstructive pulmonary disease) [...] Recorded: 08Feb2022 11:19AM Heart Rate78, R Radial Ipwmfwaq286, LUE, Sitting Iuqwaknep91, LUE, Sitting Height5 ft 2 in Uutifx349 lb BMI Ozxyizervp44.03 kg/m2 BSA Calculated1.51 Tobacco Useb) No PHQ-2 [...] willy (more content not included)...NormalUH TouchworksTobacco Screening.on 21-08-5483Uftel depression screening assessmentNoLifePoint Health Intel[employer] DO Work Phone: Fall risk assessmentb) One or more falls in the last yearLifePoint Health IntelGen[employer] DO Work Phone: Tobacco use status CPHSb) [facility] Mr Banana DO Work Phone: Vital Signs Date TimeVital SignValuePerforming UucgptybcVglvtvez07-21-2499 11:00-0500Body numnhk134.48 cmBrenicola [employer] DO Work Phone: [phone]11-04-2025 11:00-0500 Body mass index (BMI) [Ratio]16.9 kg/w6Bcxwg [employer] DO Work Phone: [phone]11-04-2025 11:00-0500 Body gzgaom48.18 kgSheldon [employer] DO Work Phone: [facility]11-04-2025 11:00-0500 Diastolic blood rginuntg72 mm[Hg]Sheldon [employer] DO Work Phone: [phone]11-04-2025 11:00-0500 Heart rate78 /minSheldon Alvarezs DO Work Phone: [phone])[address]11-04-2025 11:00-0500 Inhaled oxygen flow rate1 L/minDignity Health St. Joseph'S Hospital And Medical Centernicola Alvarezs DO Work Phone: [phone] [place], [place] 0154511-04-2025 11:00-0500 Respiratory rate18 /minBrett Kuns DO Work Phone: [phone])[address]11-04-2025 11:00-0500 SaO2% (BldA) [Mass fraction]92 %Sheldon Kuns DO Work Phone: [phone] [place], [place] 0154511-04-2025 11:00-0500 Systolic blood asvgwouq606 mm[Hg]Sheldon Kuns DO Work Phone: [phone] [place], [place] 0154508-14-2025 08:45-0400 SaO2% (BldA) [Mass fraction]94 %Sheldon Kuns DO Work Phone: [phone] [place], [place] 0154508-14-2025 08:39-0400 Body qaiumd778.48 cmBrett Kuns DO Work Phone: [phone] [place], [place] 0154508-14-2025 08:39-0400 Body mass index (BMI) [Ratio]17.9 kg/g0Yjbab Kuns DO Work Phone: [phone])[address] [place], [place] 0154508-14-2025 08:39-0400 Body hmciok67.45 kgBrett Kuns DO Work Phone: [phone] [place], [place] 0[address]4508-14-2025 08:39-0400 Diastolic blood zucweqan19 mm[Hg]Sheldon Kuns DO Work Phone: [phone])[address]08-14-2025 08:39-0400 Heart rate85 /minBrett Kuns DO Work Phone: [phone] [place], [place] 3164708-14-2025 08:39-0400 Inhaled oxygen flow rate1 L/minBrett Kuns DO Work Phone: [phone])[address]08-14-2025 08:39-0400 Respiratory rate20 /minBrett Kuns DO Work Phone: [phone])[address]08-14-2025 08:39-0400 Systolic blood uqskpowf640 mm[Hg]Sheldon Kuns DO Work Phone: [facility]07-21-2025 09:32-0400 Body ctrirg934.48 cmBrett Kuns DO Work Phone: [phone]07-21-2025 09:32-0400 Body mass index (BMI) [Ratio]17.9 kg/o9Sndln Kuns DO Work Phone: [phone] [place], [place] 3164707-21-2025 09:32-0400 Body hmyzjz14.62 kgBrett Kuns DO Work Phone: [phone])[address] [place], [place] 0154507-21-2025 09:32-0400 Diastolic blood ihascbdp87 mm[Hg]Sheldon Kuns DO Work Phone: [phone])[address]07-21-2025 09:32-0400 Heart rate82 /minBrett Kuns DO Work Phone: 1([phone])[address]07-21-2025 09:32-0400 Respiratory rate20 /minBrett Kuns DO Work Phone: [phone])[address] [place], [place] 0[address]4507-21-2025 09:32-0400 SaO2% (BldA) [Mass fraction]93 %Sheldon Kuns DO Work Phone: 1(481)[address]07-21-2025 09:32-0400 Systolic blood yawjwjvz963 mm[Hg]Sheldon Kuns DO Work Phone: [phone])[address]06-18-2025 13:40-0400 Body gynfiu210.48 cmBrett Kuns DO Work Phone: [phone])[address]06-18-2025 13:40-0400 Body mass index (BMI) [Ratio]17.4 kg/r3Oyjvf Kuns DO Work Phone: [phone])[address]06-18-2025 13:40-0400 Body cmzzyn54.31 kgBrett Kuns DO Work Phone: [phone])[address]06-18-2025 13:40-0400 Diastolic blood cyvqaktm72 mm[Hg]Sheldon Kuns DO Work Phone: 1(387)2-[address] [place], [place] 3164706-18-2025 13:40-0400 Heart rate80 /minBrett Kuns DO Work Phone: [phone])[address]06-18-2025 13:40-0400 Inhaled oxygen flow rate1 L/minBrett Kuns DO Work Phone: [phone])[address]06-18-2025 13:40-0400 Respiratory rate18 /minBrett Kuns DO Work Phone: 1([phone])[address]06-18-2025 13:40-0400 SaO2% (BldA) [Mass fraction]98 %Sheldon Kuns DO Work Phone: [phone])[address]06-18-2025 13:40-0400 Systolic blood amzuwqok264 mm[Hg]Sheldon Kuns DO Work Phone: 1(796)[address]04-29-2025 14:34-0400 Body ztjdeq404.48 cmBrett Kuns DO Work Phone: [phone])[address]04-29-2025 14:34-0400 Body mass index (BMI) [Ratio]17.7 kg/a8Ytdot Kuns DO Work Phone: 1(425)6-[address] [place], [place] 3164704-29-2025 14:34-0400 Body zkvtei86.99 kgBrett Kuns DO Work Phone: [phone] [place], [place] 3164704-29-2025 14:34-0400 Diastolic blood mm[Hg]Sheldon Kuns DO Work Phone: 1(059)0-[address] [place], [place] 3164704-29-2025 14:34-0400 Heart rate60 /minBrett Kuns DO Work Phone: [phone])724-[address] [place], [place] 3164704-29-2025 14:34-0400 Respiratory rate16 /minBrett Kuns DO Work Phone: [facility]04-29-2025 14:34-0400 SaO2% (BldA) [Mass fraction]97 %Sheldon Kuns DO Work Phone: [facility]04-29-2025 14:34-0400 Systolic blood mm[Hg]Sheldon Kuns DO Work Phone: [facility]01-23-2025 12:39-0500 Body .48 cmUniversity Hospitals [facility] Center01-23-2025 12:39-0500Body mass index (BMI) [Ratio]17.4 kg/l7OaqclohqnUniversity Hospitals Conneaut Medical Center01-23-2025 12:39-0500Body bcxxve23.09 kgUniversity Hospitals Conneaut Medical Center01-23-2025 12:39-0500Diastolic blood ujhlaggz78 mm[Hg][facility] 09-19-2024 12:39-0500Heart rate65 /[facility] 09-19-2024 12:39-0500Respiratory rate16 /[facility] 09-19-2024 12:39-2530GrW6% (BldA) [Mass fraction]89 %[facility]01-23-2025 12:39-0500Systolic blood mm[Hg][facility]11-12-2024 15:00-0500Body iopyog268.48 cmSheldon Alvarezs DO Work Phone: [facility]11-12-2024 15:00-0500 Body mass index (BMI) [Ratio]18.6 kg/a5Qrbxy Kuns DO Work Phone: [facility]11-12-2024 15:00-0500 Body uuvqpj56.26 kgMandytt Kuns DO Work Phone: [facility]11-12-2024 15:00-0500 Diastolic blood jtcfkooe75 mm[Hg]Sheldon Alvarezs DO Work Phone: [facility]11-12-2024 15:00-0500 Heart rate70 /minBrett Kuns DO Work Phone: [facility]11-12-2024 15:00-0500 Respiratory rate20 /minBrett Kuns DO Work Phone: [facility]11-12-2024 15:00-0500 SaO2% (BldA) [Mass fraction]92 %Sheldon Kuns DO Work Phone: [facility]11-12-2024 15:00-0500 Systolic blood irvzjobq788 mm[Hg]Sheldon Kuns DO Work Phone: [facility]10-22-2024 12:33-0400 Body .48 cmDO Sheldon Kuns Work Phone: [phone]10-22-2024 12:33-0400 Body mass index (BMI) [Ratio]19 kg/m2DO Sheldon Kuns Work Phone: [facility]10-22-2024 12:33-0400 Body hmkxli82.17 kgDO Sheldon Kuns Work Phone: [facility]10-22-2024 12:33-0400 Diastolic blood mcjvdowk32 mm[Hg]DO Sheldon Kuns Work Phone: [facility]10-22-2024 12:33-0400 Heart rate75 /minDO Sheldon Kuns Work Phone: [facility]10-22-2024 12:33-0400 Respiratory rate16 /minDO Sheldon Kuns Work Phone: [facility]10-22-2024 12:33-0400 SaO2% (BldA) [Mass fraction]92 %DO Sheldon Kuns Work Phone: [facility]10-22-2024 12:33-0400 Systolic blood txodredm183 mm[Hg]DO Sheldon Kuns Work Phone: [facility]09-19-2024 08:40-0400 Body .48 cmDO Sheldon Kuns Work Phone: 1(463)2-[address] [place], [place] 3164709-19-2024 08:40-0400 Body mass index (BMI) [Ratio]19.3 kg/m2DO Sheldon Kuns Work Phone: [phone])[address]09-19-2024 08:40-0400 Body zinpkw66.08 kgDO Sheldon Kuns Work Phone: 1(159)[address]09-19-2024 08:40-0400 Diastolic blood mm[Hg]DO Sheldon Kuns Work Phone: [phone])[address]09-19-2024 08:40-0400 Heart rate88 /minDO Sheldon Kuns Work Phone: 1(381)[address]09-19-2024 08:40-0400 Respiratory rate18 /minDO Sheldon Kuns Work Phone: 1(739)[address]09-19-2024 08:40-0400 SaO2% (BldA) [Mass fraction]97 %DO Sheldon Kuns Work Phone: 1(366)[address]09-19-2024 08:40-0400 Systolic blood mm[Hg]DO Sheldon Kuns Work Phone: 1(522)9-[address] [place], [place] 3164707-23-2024 14:00-0400 Body kcvinl791.48 cmDO Sheldon Kuns Work Phone: [phone]07-23-2024 14:00-0400 Body mass index (BMI) [Ratio]19.9 kg/m2DO Sheldon Kuns Work Phone: [phone])6-[address] [place], [place] 3164707-23-2024 14:00-0400 Body hawnfi29.44 kgDO Sheldon Kuns Work Phone: 1(069)2-[address] [place], [place] 5430707-23-2024 14:00-0400 Diastolic blood ipbixvfc26 mm[Hg]DO Sheldon Kuns Work Phone: [facility]07-23-2024 14:00-0400 Heart rate68 /minDO Sheldon Kuns Work Phone: [facility]07-23-2024 14:00-0400 Respiratory rate18 /minDO Sheldon Kuns Work Phone: [facility]07-23-2024 14:00-0400 SaO2% (BldA) [Mass fraction]91 %DO Sheldon Kuns Work Phone: [facility]07-23-2024 14:00-0400 Systolic blood gnpitrxf967 mm[Hg]DO Sheldon Kuns Work Phone: [facility]06-14-2024 13:16-0400 Body .5 cmRonnie Amin MD Work Phone: [facility]06-14-2024 13:16-0400 Body mass index (BMI) [Ratio]19.94 kg/n9WpctsxvRonnie Amin MD Work Phone: [facility]06-14-2024 13:16-0400 Body .44 kgRonnei Amin MD Work Phone: [facility]06-14-2024 13:16-0400 Diastolic blood mm[Hg]Ronnie Amin MD Work Phone: [address] [place], [place] 4536506-14-2024 13:16-0400 Heart rate68 /minRonnie Amin MD Work Phone: [facility]06-14-2024 13:16-0400 Systolic blood jzqnihps042 mm[Hg]Ronnie Amin MD Work Phone: [facility]06-03-2024 10:35-0400 Diastolic blood ldboyxjy53 mm[Hg]DO Sheldon Kuns Work Phone: [facility]06-03-2024 10:35-0400 Heart rate76 /minDO Sheldon Kuns Work Phone: [facility]06-03-2024 10:35-0400 Respiratory rate16 /minDO Sheldon Kuns Work Phone: [facility]06-03-2024 10:35-0400 SaO2% (BldA) [Mass fraction]91 %DO Sheldon Kuns Work Phone: [facility]06-03-2024 10:35-0400 Systolic blood ehshiimz208 mm[Hg]DO Sheldon Kuns Work Phone: [facility]05-14-2024 15:02-0400 Body .48 cmDO Sheldon Kuns Work Phone: [facility]05-14-2024 15:02-0400 Body mass index (BMI) [Ratio]20.2 kg/m2DO Sheldon Kuns Work Phone: [facility]05-14-2024 15:02-0400 Body rtczjclzkmy27.2 [degF]DO Sheldon Kuns Work Phone: [facility]05-14-2024 15:02-0400 Body .34 kgDO Sheldon Kuns Work Phone: [facility]05-14-2024 15:02-0400 Diastolic blood qizaezsw98 mm[Hg]DO Sheldon Kuns Work Phone: [facility]05-14-2024 15:02-0400 Heart rate72 /minDO Sheldon Kuns Work Phone: [facility]05-14-2024 15:02-0400 Respiratory rate20 /minDO Sheldon Kuns Work Phone: [facility]05-14-2024 15:02-0400 SaO2% (BldA) [Mass fraction]93 %DO Sheldon Kuns Work Phone: [facility]05-14-2024 15:02-0400 Systolic blood tomzwexz641 mm[Hg]DO Sheldon Kuns Work Phone: [facility]04-18-2024 12:32-0400 Body rsbcew029.48 cmDO Sheldon Kuns Work Phone: [facility]04-18-2024 12:32-0400 Body mass index (BMI) [Ratio]19.3 kg/m2DO Sheldon [employer] Work Phone: [facility]04-18-2024 12:32-0400 Body .08 kgDO Sheldon Kuns Work Phone: [facility]04-18-2024 12:32-0400 Diastolic blood flgzmgio32 mm[Hg]DO Sheldon Kuns Work Phone: [facility]04-18-2024 12:32-0400 Heart rate70 /minDO Sheldon Kuns Work Phone: [facility]04-18-2024 12:32-0400 SaO2% (BldA) [Mass fraction]96 %DO Sheldon Kuns Work Phone: [facility]04-18-2024 12:32-0400 Systolic blood otoeytya556 mm[Hg]DO Sheldon Kuns Work Phone: [facility]03-20-2024 12:49-0400 Body kdemyo053.48 cmDO Sheldon Kuns Work Phone: [facility]03-20-2024 12:49-0400 Body mass index (BMI) [Ratio]19.9 kg/m2DO Sheldon Kuns Work Phone: [facility]03-20-2024 12:49-0400 Body .44 kgDO Sheldon Kuns Work Phone: [facility]03-20-2024 12:49-0400 Diastolic blood fhghndyf83 mm[Hg]DO Sheldon Kuns Work Phone: [facility]03-20-2024 12:49-0400 Heart rate79 /minDO Sheldon Kuns Work Phone: [facility]03-20-2024 12:49-0400 Respiratory rate20 /minDO Sheldon Kuns Work Phone: [facility]03-20-2024 12:49-0400 SaO2% (BldA) [Mass fraction]89 %DO Sheldon Kuns Work Phone: [facility]03-20-2024 12:49-0400 Systolic blood ubprjurr396 mm[Hg]DO Sheldon Kuns Work Phone: [facility]02-20-2024 14:58-0500 Body jnpjyo306.48 cmDO Sheldon Kuns Work Phone: [facility]02-20-2024 14:58-0500 Body mass index (BMI) [Ratio]19.3 kg/m2DO Sheldon Kuns Work Phone: [facility]02-20-2024 14:58-0500 Body ujqlvrixyqd51 [degF]DO Sheldon Kuns Work Phone: [facility]02-20-2024 14:58-0500 Body fuukhq85.08 kgDO Sheldon Kuns Work Phone: [facility]02-20-2024 14:58-0500 Diastolic blood mnbyasgl14 mm[Hg]DO Sheldon Kuns Work Phone: [facility]02-20-2024 14:58-0500 Heart rate87 /minDO Sheldon Kuns Work Phone: [facility]02-20-2024 14:58-0500 Respiratory rate2 /minDO Sheldon Kuns Work Phone: [facility]02-20-2024 14:58-0500 SaO2% (BldA) [Mass fraction]95 %DO Sheldon [employer]dish Work Phone: [facility]02-20-2024 14:58-0500 Systolic blood rahieous841 mm[Hg]DO Shelodn Blendspacejagdish Work Phone: [facility]12-13-2023 10:00-0500 Body yomjko100.48 cmChristopher Aure Other [facility]12-13-2023 10:00-0500 Body mass index (BMI) [Ratio]19.57 kg/i2Wnqflutylui Aure Other [employer] Other 12-13-2023 10:00-0500Body qxutjszhajr34.6 [degF] Christopher Aure Other [employer] Other 12-13-2023 10:00-0500Body nqoaol54.54 kgChristopher Aure Other [employer] Other 12-13-2023 10:00-0500Body znfzap95.53 kgDO Sheldon [employer] Work Phone: [facility]12-13-2023 10:00-0500 Diastolic blood uuymjwlf83 mm[Hg]Christopher Aure Other [facility]12-13-2023 10:00-0500 Respiratory rate20 /minChristopher Aure Other [employer] Other 12-13-2023 10:00-4840WzC1% (BldA) [Mass fraction]97 % Christopher Aure Other [employer] Other 12-13-2023 10:00-0500Systolic blood qmzglidz430 mm[Hg] Dre Dickersonno Other [facility]11-07-2023 10:30-0500 Body .48 cmBrett Kuns Other [employer] Other 11-07-2023 10:30-0500Body mass index (BMI) [Ratio] 20.12 kg/q4Zdoes Anne-Marie Other [employer] Other 11-07-2023 10:30-0500Body ulgvdc68.9 kgBrett Longs Other [employer] Other 11-07-2023 10:30-0500Diastolic blood anuwekih48 mm[Hg] Sheldon Longs Other [employer] Other 11-07-2023 10:30-0500Respiratory rate18 /minBrett Anne-Marie Other [employer] Other 11-07-2023 10:30-2492TaR1% (BldA) [Mass fraction]95 % Sheldonnicola Alvarezs Other [employer] Other 11-07-2023 10:30-0500Systolic blood ypswaqmo753 mm[Hg] Sheldon Kuns Other [employer] Other 10-03-2023 12:30-0400Body cwmmez913.48 cmBrett Kuns Other [employer] Other 10-03-2023 12:30-0400Body mass index (BMI) [Ratio] 19.82 kg/b3Jtokn Kuns Other [employer] Other 10-03-2023 12:30-0400Body cfavvf42.17 kgBrett Kuns Other [employer] Other 10-03-2023 12:30-0400Diastolic blood befdvpwf79 mm[Hg] Sheldon Kuns Other [employer] Other 10-03-2023 12:30-0400Respiratory rate18 /minBrett Kuns Other [employer] Other 10-03-2023 12:30-4238SiT4% (BldA) [Mass fraction]94 % Sheldon Longs Other [employer] Other 10-03-2023 12:30-0400Systolic blood lxbdobwg494 mm[Hg] Sheldon Kuns Other [employer] Other 04-04-2023 13:30-0400Body cqdfty189.48 cmBrett Kuns Other [employer] Other 04-04-2023 13:30-0400Body mass index (BMI) [Ratio] 18.36 kg/v6Vgugq Kuns Other [employer] Other 04-04-2023 13:30-0400Body ulswnb92.54 kgBrett Kuns Other [employer] Other 04-04-2023 13:30-0400Diastolic blood hvungycf29 mm[Hg] Sheldon Kuns Other [employer] Other 04-04-2023 13:30-0400Respiratory rate16 /minBrett Kuns Other [employer] Other 04-04-2023 13:30-7176DaL0% (BldA) [Mass fraction]93 % Sheldon Kuns Other [employer] Other 04-04-2023 13:30-0400Systolic blood chcvtmid906 mm[Hg] Sheldon Kuns Other [employer] Other 02-02-2023 13:30-0500Body .48 cmBrett Longs Other [employer] Other 02-02-2023 13:30-0500Body mass index (BMI) [Ratio] 18.65 kg/d0Ctovr Kuns Other [employer] Other 02-02-2023 13:30-0500Body bhuwjz74.27 kgBrett Kuns Other [employer] Other 02-02-2023 13:30-0500Diastolic blood chtiqwnb23 mm[Hg] Sheldon Kuns Other [employer] Other 02-02-2023 13:30-0500Respiratory rate16 /minBrett Kuns Other [employer] Other 02-02-2023 13:30-9902ZpI1% (BldA) [Mass fraction]88 % Sheldon Kuns Other [employer] Other 02-02-2023 13:30-0500Systolic blood ybngrpcw911 mm[Hg] Sheldon Kuns Other [employer] Other 01-05-2023 13:30-0500Body .48 cmBrett Kuns Other [employer] Other 01-05-2023 13:30-0500Body mass index (BMI) [Ratio] 18.84 kg/z6Ugqfz Kuns Other [employer] Other 01-05-2023 13:30-0500Body fkiruq94.72 kgBrett Kuns Other [employer] Other 01-05-2023 13:30-0500Diastolic blood srhubnws75 mm[Hg] Sheldon Kuns Other [employer] Other 01-05-2023 13:30-0500Respiratory rate16 /minBrett Kuns Other [employer] Other 01-05-2023 13:30-6158KvP9% (BldA) [Mass fraction]98 % Sheldon Kuns Other [employer] Other 01-05-2023 13:30-0500Systolic blood mm[Hg] Sheldon Kuns Other [employer] Other 10-27-2022 13:30-0400Body yygrpw430.48 cmBrett Kuns Other [employer] Other 10-27-2022 13:30-0400Body mass index (BMI) [Ratio] 19.57 kg/u7Aennm Kuns Other [facility] Other 10-27-2022 13:30-0400Body qalimn84.54 kgBrett Kuns Other [facility] Other 10-27-2022 13:30-0400Diastolic blood coreahks65 mm[Hg] Sheldon Kuns Other [facility] Other 10-27-2022 13:30-0400Respiratory rate16 /minBrett Kuns Other [facility] Other 10-27-2022 13:30-2656RaF3% (BldA) [Mass fraction]98 % Sheldon Kuns Other [facility] Other 10-27-2022 13:30-0400Systolic blood rfurqwxe845 mm[Hg] Sheldon Kuns Other [facility] Other 09-27-2022 13:30-0400Body ezmxar667.48 cmBrett Kuns Other [facility] Other 09-27-2022 13:30-0400Body mass index (BMI) [Ratio] 19.75 kg/h8Ojulf Kuns Other [facility] Other 09-27-2022 13:30-0400Body wohjcn80.99 kgBrett Kuns Other [facility] Other 09-27-2022 13:30-0400Diastolic blood rjjhsrmo11 mm[Hg] Sheldon Kuns [facility] Other 09-27-2022 13:30-0400Respiratory rate16 /minBrett Kuns Other [place] [facility] Other 09-27-2022 13:30-2508SdE7% (BldA) [Mass fraction]98 % Sheldon Kuns Other [place] [employer] Other 09-27-2022 13:30-0400Systolic blood ebuvaahk808 mm[Hg] Sheldon Kuns Other [place] [facility] Other 08-22-2022 12:55-0400Body yvosvtmwtbj68.3 [degF]DO Sheldon Kuns Work Phone: [facility]08-22-2022 12:55-0400 Diastolic blood gxbzurtw35 mm[Hg]DO Sheldon Kuns Work Phone: [facility]08-22-2022 12:55-0400 Heart rate73 /minDO Sheldon Kuns Work Phone: [facility]08-22-2022 12:55-0400 Respiratory rate18 /minDO Sheldon Kuns Work Phone: [facility]08-22-2022 12:55-0400 SaO2% (BldA) [Mass fraction]95 %DO Sheldon Kuns Work Phone: [facility]08-22-2022 12:55-0400 Systolic blood vevbuhvc114 mm[Hg]DO Sheldon Kuns Work Phone: [facility]07-26-2022 13:30-0400 Body damwii854.48 cmBrett Kuns Other [place] [facility] Other 07-26-2022 13:30-0400Body mass index (BMI) [Ratio] 20.48 kg/m1Nqpsn Longjagdish Other [employer] Other 07-26-2022 13:30-0400Body .8 kgMandynicola Alvarezjagdish Other [facility] Other 07-26-2022 13:30-0400Diastolic blood hrmokjqn80 mm[Hg] Sheldon Longjagdish Other [place] [facility] Other 07-26-2022 13:30-0400Respiratory rate16 /minBrenicola Anne-Marie Other [place] [facility] Other 07-26-2022 13:30-2156CrD9% (BldA) [Mass fraction]96 % Sheldon Longjagdish Other [place] [facility] Other 07-26-2022 13:30-0400Systolic blood fweqepjv855 mm[Hg] Sheldonnicola Alvarezs Other [place] [facility] Other 06-14-2022 11:19-0400Body yidwyt118.48 cmBrett Yakov Alvarezs Work Phone: [phone]-Wqryn [place] [facility] [address] DO Work Phone: 1(144) 850-771606-14-2022 11:19-0400Body mass index (BMI) [Ratio] 21.03 kg/c6Axesc R Kuns Work Phone: mp223-1114GU-Hyyme [place] [facility] [address] DO Work Phone: 1(715) 596-867006-14-2022 11:19-0400Body surface area Derived from formula1.51 a4Swygn R Kuns Work Phone: 1(684) [phone]-Ddgrx [place] [employer] [address] DO Work Phone: 1(915) 955-670906-14-2022 11:19-0400Body tktvsu16.16 kgBrett R Kuns Work Phone: mp388-4272GF-Eqnco [place] [facility] DO Work Phone: 1(430) 623-179006-14-2022 11:19-0400Diastolic blood hhyrmfur06 mm[Hg] Sheldon R Kuns Work Phone: mp758-8382RV-Tsezy [place] [facility] DO Work Phone: 1(903) 750-840706-14-2022 11:19-0400Heart rate78 /minBrett R Kuns Work Phone: mp443-0547XR-Mzfkw [place] [facility] DO Work Phone: 1([phone] 11:19-0400Systolic blood ubgvbtbj641 mm[Hg] Sheldon R Kuns Work Phone: mp686-6048RV-Tbmqz [place] [facility] [address] DO Work Phone: 1(617) 438-935504-26-2022 14:00-0400Body wynlbk477.48 cmBrenicola Xie Other [employer] Other 04-26-2022 14:00-0400Body mass index (BMI) [Ratio] 20.67 kg/q9CxtjuSheldon Xie Other [employer] Other 04-26-2022 14:00-0400Body nzcynj40.26 kgBrenicola Xie Other [employer] Other 04-26-2022 14:00-0400Diastolic blood bdpimxxh39 mm[Hg] Sheldon Anne-Marie Other [employer] Other 04-26-2022 14:00-0400Respiratory rate16 /minBrett Kuns Other [employer] Other 04-26-2022 14:00-8591IhE1% (BldA) [Mass fraction]94 % Sheldon Kuns Other [employer] Other 04-26-2022 14:00-0400Systolic blood hnfbsalt493 mm[Hg] Sheldon Kuns Other [employer] Other 04-07-2022 14:30-0400Body .48 cmBrett Kuns Other [employer] Other 04-07-2022 14:30-0400Body mass index (BMI) [Ratio] 20.67 kg/b8Lujqd Kuns Other [employer] Other 04-07-2022 14:30-0400Body mtejll96.26 kgBrett Kuns Other [employer] Other 04-07-2022 14:30-0400Diastolic blood efrryfbr79 mm[Hg] Sheldon Kuns Other [employer] Other 04-07-2022 14:30-0400Respiratory rate18 /minBrett Kuns Other [employer] Other 04-07-2022 14:30-4358NjZ9% (BldA) [Mass fraction]95 % Sheldon Kuns Other [employer] Other 04-07-2022 14:30-0400Systolic blood tvoynqkx282 mm[Hg] Sheldon Kuns Other [employer] Other 03-30-2022 13:30-0400Body wvsdva233.48 cmBrett Kuns Other [employer] Other 03-30-2022 13:30-0400Body mass index (BMI) [Ratio] 20.67 kg/m6AlmhsSheldon Xie Other [employer] Other 03-30-2022 13:30-0400Body amskth08.26 kgSheldon Xie Other [employer] Other 03-30-2022 13:30-0400Diastolic blood honbvwpf97 mm[Hg] Sheldon Xie Other [employer] Other 03-30-2022 13:30-0400Respiratory rate16 /minSheldon Xie Other [employer] Other 03-30-2022 13:30-6222UdG7% (BldA) [Mass fraction]93 % Sheldon Xie Other [employer] Other 03-30-2022 13:30-0400Systolic blood tnglofaw694 mm[Hg] Sheldon Xie Other [employer] Other 10-14-2021 12:30-0400Body npvekw222.48 cmMattsofia Olvera Other [employer] Other 10-14-2021 12:30-0400Body mass index (BMI) [Ratio]20.3 kg/q8YuejzndAlireza Olvera Other [employer] Other 10-14-2021 12:30-0400Body kxixnu79.35 kgMattsofia Olvera Other [employer] Other 10-14-2021 12:30-0400Diastolic blood shehhgui56 mm[Hg] Alireza Olvera Other [place] [facility] Other 10-14-2021 12:30-0400Respiratory rate18 /minMattsofia Olvera Other [place] [facility] Other 10-14-2021 12:30-9304ZfJ2% (BldA) [Mass fraction]97 % Alireza [facility] Other [facility] Other 10-14-2021 12:30-0400Systolic blood qdtgptek311 mm[Hg] Alireza Olvera Other [facility] Other Encounters Encounter DateEncounter TypeCare ProviderFacilityStart: 07-01-2025 End: 41-42-8619gbjvfolnnbKstkw Kuns DO Work Phone: -[facility] [place]Start: 07-01-2025 End: 16-91-3215Clhmttp encounter procedureBrenicola Xie DO-[facility] [place] Work Phone: Start: 89-76-7373Ngrqjjtmly and management of inpatientGEORGE MOCHERYLMedina Hospitaltart: 06-21-2025 End: 07-87-9303Zqkoieeisi and management of inpatientDARYL R [facility]: 06-21-2025 End: 15-93-0980Obldpdimv department patient visitDARYL R [facility]: 49-56-8087Ats-patient / Non-visitDavid Rosario Thomson PA-C -[facility] Work Phone: Start: 06-05-2025 End: 69-56-4228qvykdiowobWJSINVASt. 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)Start: 06-04-2025 End: 90-11-3328lzkhmomjuwZJSEBYV WRIGHTNot AvailableStart: 04-10-2025 End: 28-50-9826mwyxsygwfgCtxml Kuns DO Work Phone: [facility] Work Phone: Start: 04-10-2025 End: 88-86-4049Wlgveak encounter procedureChsamantha Looney MDOur [facility] Work Phone: Start: 04-10-2025 End: 11-26-1260Vxokfvozkjyvictoria Looney MDOur Community Hospital [facility] Work Phone: Start: 04-08-2025 End: 03-48-8156pnrwulwxdaEPXE [facility]: 76-45-3463FlcunqxCurahealth [facility] Work Phone: Start: 03-20-2025 End: 41-83-5516wwuhqfegqvBOUNFOJSt. Francis Hospitaltart: 03-17-2025 End: 08-76-1863fahiuusqxaEagjw Kuns DO Work Phone: [facility] Work Phone: Start: 03-17-2025 End: 59-82-0427Xqjkd R Kuns DO-[facility] Family [facility] Work Phone: Start: 45-38-4878Qboh A [facility] Work Phone: Start: 02-27-2025 End: 41-18-4641dwhxzvzxxlJWCA ELTAToledo Hospitaltart: 67-97-4452Nzjye R Kuns DO-[facility] Work Phone: Start: 02-12-2025 End: 23-56-9488Ezrqa R Kuns DO-[facility] Work Phone: Start: 06-81-7708oqkdztzytePNWNIPKUpper Valley Medical Centertart: 45-54-5188Fyeurof Hoy M MD-[facility] Work Phone: Start: 84-69-9102Oalneuc Hoy M MD-[facility] Work Phone: Start: 61-21-3215JudjRanjit Peralta MDCascade Valley Hospital [facility] Work Phone: Start: 16-09-1138LgazRanjit Peralta MDCascade Valley Hospital [facility] Work Phone: Start: 05-38-5958NauhRanjit Peralta MDCascade Valley Hospital [facility] Work Phone: Start: 17-93-9614LucqRanjit Peralta MDCascade Valley Hospital [facility] Work Phone: Start: 77-75-5782MntjRanjit Peralta MDCascade Valley Hospital [facility] Work Phone: Start: 79-51-5579HykmRanjit Peralta MDCascade Valley Hospital [facility] Work Phone: Start: 20-38-6558FdnaRanjit Peralta MDCascade [facility] Work Phone: Start: 05-91-0555Ozuqq R Kuns DOCascade Valley Hospital [facility] Work Phone: Start: 01-01-2025 End: 81-15-9926Vrosslu encounter procedureNoms Aud Audiology Aid - Nan Junior CI AUDComment on above: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)Start: 01-01-2025 End: 03-26-9523ohwpownzzdZFTGUWD WRIGHTNot AvailableStart: 12-24-2024 End: 72-53-6839izuaibicmxAyqrl Anne-Marie DO Work Phone: [facility] Work Phone: Start: 12-24-2024 End: 72-31-4741Gkhraqc encounter procedureBrenicola Xie DO Work Phone: [facility] Work Phone: Start: 12-24-2024 End: 90-52-6127Imupg R Kuns DO-[facility] Work Phone: Start: 12-04-2024 End: 36-69-0734Pmgwami encounter procedureNoms Aud Audiology Aid - Nan Junior CI AUDComment on above: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)Start: 12-04-2024 End: 34-43-6574yrwikaamheZUZIOZK WRIGHTNot AvailableStart: 11-14-2024 End: 48-29-7079Wsxwway encounter procedureSheldon Xie DO Work Phone: [facility] Work Phone: Start: 11-14-2024 End: 07-16-3790rbefbpbibqVleyb Kuns DO Work Phone: [facility] Work Phone: Start: 11-13-2024 End: 26-69-9727qvyhsisijkXNJOLAU WRIGHTNot AvailableStart: 09-20-2024 End: 55-00-6932Axvymk Michi Melgar AUD Work Phone: noms AUDStart: 09-20-2024 End: 32-58-8079Kfrmzm Michi Melgar AUD Work Phone: noms AUDStart: 09-20-2024 End: 03-28-1011Uxvzwksjk encounterTammy Melgar AUD Work Phone: noms NB AUDStart: 09-20-2024 End: 34-95-7894Vnyatxr encounter procedureTammy Melgar AUD Work Phone: noms SH AUDComment on above:Mixed conductive and sensorineural hearing loss of right ear with restricted hearing of left ear (Pr imary Dx)Start: 09-20-2024 End: 50-14-6652mvijikipykXMULNTT S WRIGHTNot AvailableStart: 09-19-2024 End: 13-78-3598xalkugvjpmFqcimxwxiAdena [facility] Center Work Phone: Start: 09-19-2024 End: 64-29-7750Vbilwry encounter procedureRandolph Health Physician [facility] Medicine [place] Work Phone: Start: 07-09-2024 End: 18-84-7580bhzdfetjqjSyixw Kuns DO Work Phone: [facility] Work Phone: Start: 07-09-2024 End: 66-14-2278Damnkfb encounter procedureBrenicola Xie DO Work Phone: [facility] Pulmonary Disease Work Phone: Start: 34-40-1948Lno-patient / Non-visitBrett Kuns DO Work Phone: [facility] Work Phone: Start: 06-18-2024 End: 74-23-2877Gubplpb encounter procedureDO Sheldon Xie Work Phone: [facility]-X[facility]Ray [facility] CtrStart: 06-18-2024 End: 26-77-6124ndgzbcyzejIX Sheldon Xie Work Phone: [facility] Work Phone: Start: 06-18-2024 End: 13-08-3637woxkgdrvvhOM Sheldon Kuns Work Phone: [facility] Work Phone: Start: 06-18-2024 End: 40-63-4224Yqkifjz encounter procedureDO Sheldon Kuns Work Phone: [facility] [place] Work Phone: Start: 06-06-2024 End: 46-79-9389fpcmataqggGN Sheldon Kuns Work Phone: [facility] Work Phone: Start: 06-06-2024 End: 22-34-5764Nqnsmga encounter procedureDO Sheldon Kuns Work Phone: [facility] Work Phone: Start: 05-16-2024 End: 39-58-1341Xctcxyo encounter procedureDO Sheldon Kuns Work Phone: [facility]Ray [facility] CtrStart: 05-16-2024 End: 19-91-0174lyazbhmwywIG Sheldon Kuns Work Phone: [facility] Work Phone: Start: 05-16-2024 End: 41-14-6473bwykjjkuipCT Sheldon Kuns Work Phone: [facility] Work Phone: Start: 05-16-2024 End: 24-57-4533Cahohcv encounter procedureDO Sheldon Kuns Work Phone: [facility] [place] Work Phone: Start: 05-15-2024 End: 62-52-1944Mdfhkkk encounter procedureDO Sheldon Kuns Work Phone: [facility]-Lab [place] Work Phone: Start: 05-15-2024 End: 35-14-8020wtnlrxqjkhRQ Sheldon Kuns Work Phone: [facility] Work Phone: Start: 03-19-2024 End: 92-63-2566pmusezfiufYK Sheldon Kuns Work Phone: [facility] Work Phone: Start: 03-19-2024 End: 84-54-6128Tuguriv encounter procedureDO Sheldon Kuns Work Phone: [facility] Work Phone: Start: 03-04-2024 End: 31-86-4701zikypeariaAH Sheldon Kuns Work Phone: [facility] Work Phone: Start: 03-04-2024 End: 63-62-6067Pyvhkjfotg RecurringDO Sheldon Kuns Work Phone: [facility]-Physical Therapy [place] Work Phone: start: 02-09-2024 End: 95-43-1183Foemcq outpatient visit 25 minutesRonnie Amin MD Work Phone: [facility]od[facility] healthcare centerComment on above:Benign essential hypertension (Primary Dx); Paroxysmal supraventricular tachycardia (CMS-HCC); Mixed hyperlipidemia; Former cigarette smokerStart: 02-09-2024 End: 11-72-7197ztgkzoxmwxUWXBEGV P MCGVIRTUA VOORHEESAdinaMadison Health AmbulatoryStart: 01-29-2024 End: 58-04-8699tbomjrdxduXZ Sheldon Kuns Work Phone: [facility] Work Phone: Start: 01-29-2024 End: 62-35-2677Azmmenj encounter procedureDO Sheldon Kuns Work Phone: [facility] Work Phone: Start: 77-61-4291Cdwipqlhwx RecurringDO Sheldon Kuns Work Phone: [facility]-Physical Therapy [place] Work Phone: start: 01-09-2024 End: 06-70-8627Gttozso encounter procedureDO Sheldon Kuns Work Phone: [facility] Pulmonary Disease Work Phone: Start: 57-48-0307Zvu-patient / Non-visitDO Sheldon Kuns Work Phone: [facility] Work Phone: Start: 12-14-2023 End: 61-65-4785tibrwiuxiqAY Sheldon Kuns Work Phone: [facility] Work Phone: Start: 12-14-2023 End: 69-00-8914Wrafxzq encounter procedureDO Sheldon Kuns Work Phone: [facility] [place] Work Phone: Start: 75-60-1986Sah-patient / Non-visitDO Sheldon Kuns Work Phone: [facility] Pulmonary Disease Work Phone: Start: 12-05-2023 End: 70-20-9876Mlxbsjy encounter procedureDO Sheldon Kuns Work Phone: [facility]-Sleep Lab Work Phone: Start: 12-05-2023 End: 06-29-2259lztfvquxmeDJ Sheldon Kuns Work Phone: [facility] Work Phone: Start: 11-20-2023 End: 21-16-4119Olvdigg encounter procedureDO Sheldon Kuns Work Phone: [facility]-X[facility]Ray [facility] CtrStart: 11-20-2023 End: 84-52-2861xemounfuddKY Sheldon Kuns Work Phone: [facility] Work Phone: Start: 11-16-2023 End: 32-16-4255wxryzjjocpVZ Sheldon Kuns Work Phone: [facility] Work Phone: Start: 11-16-2023 End: 89-97-9237Kdqickh encounter procedureDO Sheldon Kuns Work Phone: [facility] Work Phone: Start: 11-15-2023 End: 97-85-6196mzbtmtyudzXL Sheldon Kuns Work Phone: [facility] Work Phone: Start: 11-15-2023 End: 98-66-5969Dvnxkkq encounter procedureDO Sheldon Kuns Work Phone: [facility] [place] Work Phone: Start: 87-58-1577Kkp-patient / Non-visitDO Sheldon Kuns Work Phone: [facility] Work Phone: Start: 10-17-2023 End: 30-54-9610gxztwceimgRR Sheldon Kuns Work Phone: [facility] Work Phone: Start: 10-17-2023 End: 20-29-6690Mlvanfa encounter procedureDO Sheldon Kuns Work Phone: [facility] Pulmonary Disease Work Phone: Start: 10-10-2023 End: 59-74-9966hpyovxzwdjLK Sheldon Kuns Work Phone: [facility] Work Phone: Start: 10-10-2023 End: 75-10-6089Xfpiazy encounter procedureDO Sheldon Xie Work Phone: [facility]-X[facility]Ray [facility] CtrStart: 18-80-0356Tjt-patient / Non-visitDO Sheldon Xie Work Phone: [facility] [employer] Work Phone: Start: 09-26-2023 End: 99-21-0309nvfmypgjnoER Sheldon Xie Work Phone: [facility] Work Phone: Start: 09-26-2023 End: 03-73-0771Cgibsiy encounter procedureDO Sheldon Xie Work Phone: [facility]-Lab [place] Work Phone: Start: 09-13-2023 End: 23-94-1514hsbqhbbpycWtiwd Kuns Other [facility] Other Start: 31-74-1790Fhxsmmdrq encounterSheldon Masters Referral CoordinatorStart: 09-01-2023 End: 89-63-2120Bxvatee encounter procedureDO Sheldon Anne-Marie Work Phone: [facility]-Electrodiagnostics Work Phone: Start: 08-30-2023 End: 81-63-8993panuajbvvcZTYQG R KUNSProMedica Lavaca HospitalStart: 08-09-2023 End: 49-76-8386guyhiiljakJyaoepgdxvv Aure Other [place] [employer] [facility] Other Start: 68-51-8659Gxylji outpatient new 45 minutes Dre Mccoy Pulmonary DiseaseStart: 08-09-2023 End: 51-94-5412Lhpbgax encounter procedureDO Sheldon Kuns Work Phone: [facility] Work Phone: Start: 08-07-2023 End: 47-32-4760Ywjsudl encounter procedureDO Sheldon Kuns Work Phone: [facility]-Respiratory Therapy Work Phone: Start: 07-04-2023 End: 94-35-5636aoiltqnevgDuzbv Kuns Other [employer] Other Start: 35-20-9847Vtcvef outpatient visit 25 minutes Sheldon Masters [facility] [place]: 07-04-2023 End: 15-37-4585Qflfcum encounter procedureDO Sheldon Kuns Work Phone: [facility] [place] Work Phone: Start: 05-30-2023 End: 48-98-1792iibdcjynjhUjwtw Kuns Other [employer] Other Start: 12-41-2018Qbwsxd outpatient visit 25 minutes Sheldon XieSamuel Family Medicine [place]Start: 06-87-0510Oarmyetuh encounterBrenicola Masters [facility] [place]Start: 05-24-2023 End: 03-71-7225nscickojeiQE Sheldon Alvarezs Work Phone: [facility] Work Phone: Start: 05-24-2023 End: 78-50-0834Ttutzeo encounter procedureDO Sheldon Alvarezs Work Phone: [facility]-Lab [place] Work Phone: Start: 05-02-2023 End: 21-01-3435nmtscxugueHqqpq Kuns Other [employer] Other Start: 31-70-2852Vmapwyzdx encounterBrenicola Masters [facility] [place]Start: 02-20-2023 End: 01-72-6254tlrzbrutteHppie Kuns Other [facility] Other Start: 81-12-9162Vxnfjkkjg encounterBrenicola SalmonG Family Medicine [place]Start: 01-10-2023 End: 26-29-7047svihuveqkxPAANEGSP KEARNEYFacility:H5Fxmpf: 63-03-1195gvlnrrosth SAMMIE Cyncility:F9Donaq: 23-59-6025Kavhkd outpatient visit 15 minutes Sammie Li [place] [facility]icsStart: 12-20-2022 End: 17-95-3601mpzvfrisksRG Brett Kuns Work Phone: [facility] Work Phone: Start: 12-20-2022 End: 09-92-2764Kqvneys encounter procedureDO Sheldon Xie Work Phone: [facility]-XRay [facility] Start: 12-14-2022 End: 38-85-5818jfrzgoneawJslwu Kuns Other [facility] Other Start: 39-84-6865Hnnrrxyyq encounterBrenicola Masters [facility] [place]Start: 12-12-2022 End: 10-86-7550znmskvrrbdVRVRJQFG KEARNEYFacility:X6Vtcuf: 77-24-0384Rv Renewal Sheldon Xie Work Phone: [phone]-Tunkd [facility] DO Work Phone: Start: 11-29-2022 End: 67-02-7492mpzanlxdqaTxnpu Kuns Other [facility] Other Start: 96-39-7912Djyrrg outpatient visit 25 minutes Sheldon Masters [facility] [place]Start: 07-58-0483Bl RenewalSheldon Xie Work Phone: [phone]-Gpjuk [facility] DO Work Phone: Start: 11-21-2022 End: 22-35-3159lmrypvzyldEbryuvhs [place] Other [facility] Other Start: 97-73-6119Qpcntxtks encounterJemelinda Duran FPG [facility]icsStart: 11-14-2022 End: 79-92-0545yvvuiafclwHXTROKQH KEARNEYFacility:K4Qmgeg: 59-80-0531Ks Renewal Sheldon Xie Work Phone: [phone]-Idboz [facility] DO Work Phone: Start: 11-08-2022 End: 94-25-9058tizsgdlvosWI Sheldon Kuns Work Phone: [facility] Work Phone: Start: 11-08-2022 End: 42-37-1715Ebezjnt encounter procedureDO Sheldon Kuns Work Phone: [facility]-XRay [facility] Start: 10-17-2022 End: 17-25-0148hrratanbtyBP SHELDON XIEFacility:R3Uxxcw: 10-12-2022 End: 35-77-8491dwxeobjvghUrciw Kuns Other [facility] Other Start: 52-50-2358Uyjklluno encounterSheldon SalmonG Family [facility] [place]Start: 10-04-2022 End: 89-37-1391ogoigsuppbKZ Sheldon Kuns Work Phone: [facility] Work Phone: Start: 10-04-2022 End: 40-00-8497Grckkem encounter procedureDO Sheldon Kuns Work Phone: [facility]Ray [facility] Start: 90-09-5747Qoyruu outpatient visit 25 minutesBrenicola Anne-MarieTaraVista Behavioral Health Center [place]Start: 16-73-0574Zjqeuqcon encounterSammie [facility] OrthopedicsStart: 09-29-2022 End: 64-97-8590wfwyeyqnsfEK Sheldon Xie Work Phone: [facility] Work Phone: Start: 09-29-2022 End: 00-61-4332Bbcgycb encounter procedureDO Sheldon Xie Work Phone: [facility]-Lab [place] Work Phone: Start: 09-27-2022 End: 18-98-1691enjricdycxMctooizu [place] Other [employer] Other Start: 95-45-3196Errjhz outpatient visit 25 minutes Sammie [facility] OrthopedicsStart: 01-24-5205Ubshbp follow up visit related to original pxSammie Jurado OrthopedicsStart: 09-15-2022 Telephone encounterBrenicola Masters [facility] [place]Start: 09-15-2022 End: 89-00-0017oveoyuambrRA Sheldonnicola Xie Work Phone: [facility] Work Phone: Start: 09-15-2022 End: 45-44-1656Pxqwkrw encounter procedureDO Sheldon Xie Work Phone: [facility]Ray [facility] Start: 09-02-2022 End: 37-01-4170lmwmpdjqsyCbwdo Anne-Marie Other [employer] Other Start: 60-59-6384TCKF visit new patientJemelinda LunaG [facility] OrthopedicsStart: 59-57-7455Vexzvmkje encounterBrett Guerrero [facility] [place]Start: 55-13-7464Wdwsap outpatient visit 25 minutes Sheldon Guerrero [facility] [place]Start: 09-01-2022 End: 67-57-7556cdrzlizxpmXK Sheldon Longs Work Phone: [facility] Work Phone: Start: 09-01-2022 End: 28-34-3152Fceenhi encounter procedureDO Sheldonnicola Alvarezs Work Phone: [facility]-X[facility]Ray [facility] CtrStart: 08-08-2022 End: 64-19-9785uoacvhoqrtQqfwr Kuns Other [employer] Other Start: 89-17-3882Wjrsqwmrj encounterBrett VikyG Family Medicine [place]Start: 08-04-2022 End: 55-75-0230jkmscqwtadTpozk Kuns Other [employer] Other Start: 07-89-7275Pnvmqqoda encounterBrenicola Anne-MarieSamuel Family Medicine CastaliaStart: 07-29-2022 End: 97-49-1218dhzrqvtxyyZkyur Kuns Other [employer] Other Start: 42-40-4446Eigwlvn evaluation of patient and reportBrenicola XieSamuel Family Medicine CastaliaStart: 14-07-5013Vgebgqgsj encounter Sheldonnicola XieG Family Medicine [place]aliaStart: 06-23-2022 End: 00-69-9229gvulbvvnnrUniem Kuns Other [employer] Other Start: 09-24-1490Kpuedk outpatient visit 25 minutes Sheldon Anne-MarieG Family Medicine [place]aliaStart: 06-16-2022 End: 43-11-2667kyxinicahcEG Sheldon Alvarezs Work Phone: [facility] Work Phone: Start: 06-16-2022 End: 29-16-4262Yfwvlrz encounter procedureDO Sheldon Xie Work Phone: [facility]-Lab [place]Start: 06-03-2022 End: 13-92-0452shqsknhojvNX Sheldon Xie Work Phone: [facility] Work Phone: Start: 06-03-2022 End: 74-44-8136Qfytbew encounter procedureDO Sheldon Xie Work Phone: [facility]-CT Scan [place] Start: 06-02-2022 End: 01-02-7618esoomgzckrHsmue Kuns Other [employer] Other Start: 71-27-4657Iinmsaths encounterBrenicola Masters [facility] [place]Start: 05-24-2022 End: 15-84-8215xugvlymldyGxcrz Kuns Other [employer] Other Start: 52-45-5097Qlzqfd outpatient visit 25 minutes Sheldon Masters [facility] [place]Start: 05-16-2022 End: 89-12-4897ebrtrfchqrLekzj Kuns Other [employer] Other Start: 01-01-1758Lalxrlstd encounterBrenicola AlvarezsFPG Family Medicine [place]aliaStart: 03-28-8374Yspvfafvkk RecurringDO Sheldon Xie Work Phone: [facility]-Infusion Therapy - O/P Start: 04-13-2022 End: 43-94-9556lvepftatvlDKGOLD SAMSA .Facility:Q5Jzqfg: 04-05-2022 End: 14-05-4913izdccrefhlKM SHELDONNICOLA ALVAREZSFacility:N7Ngrru: 04-01-2022 End: 25-19-6911Hmwosgi encounter procedureDO Sheldon Longs Work Phone: [facility]-Lab [place]Start: 03-22-2022 End: 87-15-2202oaxjekwoboRtqtg Kuns Other [facility] Other Start: 78-56-3441Ityutz outpatient visit 25 minutes Sheldonnicola Masters [facility] [place]Start: 02-09-2022 End: 10-74-3551jzwvxurmouRgyvc Kuns Other [place] [employer] [facility] Other Start: 94-06-5435Swuktucrk encounterBrenicola AlvarezGetachew Family [facility] CastaliaStart: 02-09-2022 End: 87-30-9346Dsufvjb encounter procedureDO Sheldonnicola Xie Work Phone: [facility]-Lab [place]Start: 79-98-6968Nupdor outpatient visit 25 minutesSheldon Xie Work Phone: [phone]-MhmgmBet[facility]da [facility] 250 DO Work Phone: Start: 01-19-2022 End: 82-61-9615pqxekjlqsqObyiq Kuns Other [facility] Other Start: 81-98-6980Qqmdkmrea encounterBrenicola Guerrero Family [facility] CastaliaStart: 55-64-7124Be Adriana Amin MD Work Phone: [phone]-PxoofSt. [facility]s [facility] 250 DO Work Phone: Start: 12-21-2021 End: 89-67-4638akwylytmwgWbbyx Kuns Other [facility] Other Start: 11-14-9126Adyajz outpatient visit 25 minutes Sheldon KunsFPG Family Medicine [place]Start: 12-02-2021 End: 45-00-2096tqpvwbehluXnfcm Kuns Other [employer] Other Start: 76-14-0397Vyrgop outpatient visit 25 minutes Sheldon SalmonG Family Medicine CastaliaStart: 22-45-7109Vr Adriana Amin MD Work Phone: [phone]-EyqhkSt. Elizabeths Medical [facility] 250 DO Work Phone: Start: 11-24-2021 End: 49-56-5220btenqkrnnvCoebw Kuns Other [facility] Other Start: 94-39-2552Yuifqf outpatient visit 25 minutes Sheldon SalmonG Family Medicine [place]Start: 10-20-2021 End: 14-63-6314siznxiqsxjGdvge Longs Other [facility] Other Start: 92-16-0643Tmoaoehio encounterBrett LongRanjithG Family Medicine [place]aliaStart: 10-19-2021 End: 91-98-8762wufzagfusdXgvup Kuns Other [facility] Other Start: 88-67-9684Qitejejod encounterBrett LongRanjithG Family Medicine [place]aliaStart: 80-18-2566Pv Adriana Amin MD Work Phone: [phone]-Qgndr [facility] 600 DO Work Phone: Start: 10-07-2021 End: 14-83-3658gzpcfgbqsxRxvob Kuns Other [facility] Other Start: 68-10-7987Vlsyizdup encounterBrett LongjagdishFPG Family Medicine [place]aliaStart: 09-07-2021 End: 32-43-0966hftwuytcqyBwauc Kuns Other [facility] Other Start: 90-37-6350Rjofusylz encounterBrenicola SalmonG Family Medicine [place]Start: 07-06-2021 End: 04-37-7560gardqrnfoeRypar Kuns Other [facility] Other Start: 00-14-9009Dmlaugkyw encounterBrenicola SalmonG [facility] CastaliaStart: 56-02-8090Iwrexkgaf encounterMattsofia DE JESUS Referral CoordinatorStart: 71-79-8749Eazlat outpatient visit 25 minutes Alireza Mir Vascular Surgery Procedures DateProcedureProcedure DetailPerforming ClinicianStart: 97-82-7230Esmkgz-up visitFollow-upMELINDA TUCKERStart: 09-40-8099QEJSVGRU FUNCTION TESTSTammy Jagdish AVILEZ Work Phone: start: 93-79-2874Zyizx X-ray of right ribDO Sheldon Xie Work Phone: Start: 45-43-5602I-ray of cervical spineDO Sheldonnicola Xie Work Phone: Start: 38-66-3161I-ray of lumbar spine, six views including bending viewsDO Sheldon Anne-Marie Work Phone: Start: 82-92-9760Q-ray of sacrum and coccyx, two or more viewsDO Sheldon Anne-Marie Work Phone: Start: 54-43-6755Aabvn Strep (POC)DO Sheldon Longs Work Phone: Start: 13-75-0346FXU (POC)DO Sheldon Kuns Work Phone: Start: 62-47-6958Accbb chest X-rayDO Sheldonnicola Alvarezs Work Phone: Start: 41-08-0157Xaxmv X-ray of left hipDO Sheldon Longs Work Phone: Start: 17-96-7108Qqng energy X-ray absorptiometryDO Sheldon Kuns Work Phone: Start: 34-10-6905Q-ray of lumbar spine, six views including bending viewsDO Sheldonnicola Alvarezs Work Phone: Start: 61-10-8755Kycmi chest X-rayDO Sheldon Kuns Work Phone: Start: 21-53-7356D-ray of right footDO Sheldon Kuns Work Phone: Start: 53-71-2225P-ray of right footDO Sheldon Kuns Work Phone: Start: 35-75-1259Oahy energy X-ray absorptiometryDO Sheldon Longs Work Phone: Start: 11-82-2648W-ray of right footDO Sheldon Kuns Work Phone: Start: 58-60-2425J-ray of right footDO Sheldon Kuns Work Phone: Start: 50-92-4726S-ray of right footDO Sheldon Kuns Work Phone: Start: 34-20-5276Kyexewzw tomography of abdomen and pelvis with contrastDO Sheldonnicola Alvarezs Work Phone: Start: 63-51-6324Fmlxd chest X-rayDO Sheldon Kuns Work Phone: Start: 58-88-5075Sotba X-ray of right ribDO Sheldon Longs Work Phone: AppendectomyBrett R Kuns Work Phone: Cataract surgeryBrett R Kuns Work Phone: HysterectomyBrett R Kuns Work Phone: Operation on the earBrett R Kuns Work Phone: Total colonoscopySheldon Xie Work Phone: Comment on above:28Aug2005; Plan of Treatment DateCare ActivityDetailAuthorStart: 07-02-2025 End: 45-50-4298Iacemey encounter qascxsjuj08/05/2025 2:45 PM EST Office Visit [facility] [address] [facility] [address] [place] [address] [facility]Start: 18-27-2819Yupqvtnfq vaccinationInfluenza Vaccine (#1)[facility] HealthcareStart: 02-11-2025 End: 24-20-3349Ayojoga encounter nxezpzjzk63/17/2025 1:00 PM EDT Office Visit [address] [place] [address] Celestina Khalil MD [address] [facility] [address] [place] [address] [facility]: 01-01-2025 End: 20-24-2160Amkrbxp encounter jiqynaeuw26/07/2025 3:00 PM EDT Office Visit [facility] [address] [place] [address] [facility]Start: 09-20-2024 End: 16-69-1365Pdxfvsc encounter vxmujmzvq43/24/2025 1:00 PM EST Office Visit [facility] [address] [place] [id number] Tammy Melgar, AUD [address] [place] [address] Elvis AUDComment on above:ArrivedStart: 73-44-2503NUJDT-19 Vaccine ( season)COVID-19 Vaccine ( season)[facility]Start: 92-17-7003FJV, Provider: Ronnie Amin, Status: Pen, Time: 11:10 AMFUV, Provider: Ronnie Amin, Status: Pen, Time: 11:10 AM-[facility] 250 DO Work Phone: Start: 38-75-1605Xoos energy X-ray absorptiometryXR dexa axial skeletonSheltering Arms Hospitaltart: 59-32-5171Yzdzergqff RecurringRegistered RecurringRegency Hospital Company-Infusion Therapy - O/PStart: 73-85-7988PPF, Provider: Ronnie Amin, Status: Pen, Time: 10:30 AM FUV, Provider: Ronnie Amin, Status: Pen, Time: 10:30 AM-[facility] [place] 600 DO Work Phone: Start: 13-53-4650Nrgwbjlypshx Vaccine: 65+ Years (2 of 2 - PPSV23 or PCV20)Pneumococcal Vaccine: 65+ Years (2 of 2 - PPSV23 or PCV20) [facility] HealthcareStart: 01-32-2161Chsgqqptfsvh Vaccine: 65+ Years (2 of 2 - PPSV23)Pneumococcal Vaccine: 65+ Years (2 of 2 - PPSV23)[facility] HealthcareStart: 82-72-0255WXC patients and/or patients aged 60+ years (1 - 1-dose 60+ series)RSV patients and/or patients aged 60+ years (1 - 1-dose 60+ series)[facility] HospitalStart: 34-80-1901DRfK/Tdap/Td Vaccines (1 - Tdap)DTaP/Tdap/Td Vaccines (1 - Tdap)[facility] Start: 92-08-0519Iqezvbyl mellitus screeningDiabetes ScreeningUnKeenan Private HospitalStart: 26-80-6869Nbxuf panelLipid PanelUnPremier Health [facility]: 1941Medicare Annual Wellness VisitMedicare Annual Wellness Visit (AWV)[facility]: 1940 Screening for osteoporosisBone Density ScanMercer County Community Hospital Comprehensive metabolic 2000 panel - Serum or PlasmaUniversity Hospitals Conneaut Medical CenterComprehensive metabolic 1999 panel - Serum or PlasmaUniversity Hospitals Conneaut Medical CenterComprehensive metabolic 2000 panel - Serum or PlasmaUniversity Hospitals Conneaut Medical CenterPatient EducationLow back pain in adultsOhiohealth [facility] Hospital Work Phone: XR Cervical spine 5 [facility] 2 [facility] Chest 2 [facility] Hip - left Single [facility] Lumbar spine [facility]XR Ribs - right 2 [facility]XR Sacrum and Coccyx GE 2 [facility] Immunizations Immunization DateImmunizationNotesCare LapzbogrSgedagvl69-13-8147uthefyohs, high dose seasonal, preservative-freeDO Sheldon Xie Work Phone: [facility]10-22-2024influenza virus vaccine, unspecified formulationNoInsight Surgical Hospital10-03-2023 influenza, high dose seasonal, preservative-freeBrett Anne-Marie Other [facility]10-03-2023influenza virus vaccine, unspecified formulationDO Sheldon Xie Work Phone: [facility]09-27-2022influenza, high dose seasonal, preservative-freeBrett Anne-Marie Other [facility]09-27-2022influenza virus vaccine, unspecified formulationDO Sheldon Xie Work Phone: [facility]10-05-2021Pfizer- BioNTech COVID-19 Vacc 30 MCG/0.3ML Intramuscular SuspensionBrett R Anne-Marie Work Phone: [facility]09-05-2021influenza, high dose seasonal, preservative-freeMattsofia Olvera Other [place] [employer] Other [id number] High-Dose Quadrivalent 0.7 ML Intramuscular Suspension Prefilled SyringeBrenicola Xie Work Phone: [facility]09-05-2021influenza virus vaccine, unspecified formulationDO Shedlonnicola Xie Work Phone: [facility]02-20-2021COVID-19 Vaccine Pfizer - Documentation Purposes OnlyMatthew Langenberg Other [facility]01-30-2021COVID-19 Vaccine Pfizer - Documentation Purposes OnlyMatthew Langenberg Other [facility]09-11-2020influenza, seasonal, injectableMatthew Langenberg Other [facility]09-01-2020influenza virus vaccine, unspecified formulationBrenicola R Anne-Marie Work Phone: [phone]-ZcmgfMary [place] [address] DO Work Phone: [phone] vaccine recombinantMatthew Langenberg Other [facility]10-07-2019zoster vaccine recombinantMatthew Langenberg Other [facility]10-07-2019influenza, seasonal, injectableMatthew Langenberg Other [facility]10-01-2019influenza virus vaccine, unspecified formulationSheldon Xie Work Phone: [phone]-VbdxxMary [place] [address] DO Work Phone: [phone]) 388-775404167179-72-8003oubzlijdosgn conjugate vaccine, 13 valent Alireza Olvera Other [facility]01-01-2019 pneumococcal polysaccharide vaccine, 23 valentSheldon R Anne-Marie Work Phone: [phone]-UnvdcMary [place] [address] DO Work Phone: [phone]) 568-650510547841-01-4333fyejuasmn virus vaccine, unspecified formulationBrett R Kuns Work Phone: [phone]-QfpwjEssentia Health 250 DO Work Phone: [phone] virus vaccine, unspecified formulationDO Sheldon Kuns Work Phone: [facility]09-19-2018influenza, high dose seasonal, preservative-freeMatthew Langenberg Other [facility]01-01-2018 pneumococcal conjugate vaccine, 13 valentBrett R Kuns Work Phone: [phone]-YavccBethesda Hospital 250 DO Work Phone: [phone]pnihn virus vaccine, unspecified formulationDO Sheldon Kuns Work Phone: [facility]10-03-2017influenza, high dose seasonal, preservative-freeMatthew Langenberg Other [facility]10-01-2017influenza virus vaccine, unspecified formulationBrett R Kuns Work Phone: [phone]-WtaizBethesda Hospital 250 DO Work Phone: [phone] 747-909601932248-19-9667Zndencr per 15 mgMatthew Langenberg Other s[employer] Other [id number] per 15 mgMatthew Langenberg Other [employer] Other [id number] virus vaccine, unspecified formulationDO Sheldon Kuns Work Phone: [facility]10-18-2016influenza, high dose seasonal, preservative-freeMatthew Langenberg Other [facility]10-01-2016influenza virus vaccine, unspecified formulationBrett R Kuns Work Phone: [phone]-WzbwpBethesda Hospital 250 DO Work Phone: [phone]zssubov virus vaccine, unspecified formulationDO Sheldon Kuns Work Phone: [facility]10-09-2015influenza, high dose seasonal, preservative-freeMatthew Langenberg Other [facility]10-01-2015influenza virus vaccine, unspecified formulationBrett R Kuns Work Phone: [phone]-IbffuBethesda Hospital 250 DO Work Phone: [phone]zslbll, high dose seasonal, preservative-freeMatthew Langenberg Other [place] [employer] Other 09-300331-08-2707oxqhhtcnk virus vaccine, unspecified formulationDO Sheldon Kuns Work Phone: [facility]10-10-2013zoster vaccine, liveBrett R Kuns Work Phone: [facility]01-01-2011 pneumococcal polysaccharide vaccine, 23 valentBrett R Kuns Work Phone: [phone]-BlaiyMary [place] [address] DO Work Phone: influenza virus vaccine, unspecified formulationBrett R Kuns Work Phone: [phone]-KqqvpMary [place]ille [address] DO Work Phone: Comment on above:Mayep Payers DatePayer CategoryPayerPolicy [id number] (Managed Care)[place] [id number]-zwg [id number] HEALTHCARE MEDICARE UNITED [employer] MEDICARE [id number] 2023-Present [address] [place], [place] [id number]3Fkbiwbz Health [id number] [id number] 2.0.3.855553.191819 [id number] 1960Self-pay [id number] 2.840.1.806815.3.579.2.38880-80-6201Cqveyoz [id number] 2.840.1.866818.3.57[id number] 2.840.1.727939.3.57[id number] 2.16840.1.264783.3.57[id number] 2.16840.1.141413.3.57[id number] 2.16840.1.400109.3.57[id number] 2.16840.1.313111.3.57[id number] 2.16840.1.584876.3.57[id number] 2.16840.1.031495.3.57[id number] 2.16840.1.706306.3.57[id number] 2.16840.1.187934.3.57[id number] 2.840.1.451362.3.57[id number] 2.840.1.432696.3.57[id number] 2.0.1.975213.3.57[id number] 2.840.1.687[id number] 2.840.1.196151.19Medicare [id number] 2.840.1.2[id number] 2.840.1.718806.3.579.2.531 [id number] 2.16840.1.2[id number] 2.16840.1.0[id number] 2.840.1.370674.3.579.2.531 [id number] 2.840.1.3[id number] 2.16.840.1.814398.3.579.2.531 Social History DateTypeDetailFacilityStart: 96-33-8780Tyiavl alcohol useSocial alcohol useEvergreenhealth [employer] Other Comment on above:Quit Smoking 1999 - smoked 1 PPD; Start: 17-51-6421Hxd Assigned At [facility] [employer] Other Start: 03-07-2019 End: 87-17-1139Affiiwh smoking status NHISEx-smoker (finding)[facility] Hospitaltart: 63-71-0418Gsx Assigned At [facility] SystemsFeMartin Memorial HospitalHistory of tobacco useCurrent smokerUnKeenan Private Hospital Work Phone: History of tobacco useCigarette SmokerUnKeenan Private Hospital Work Phone: Start: 97-06-8628Npvtkht use and exposureSmokeless tobacco non-userUnKeenan Private Hospital Work Phone: Start: 90-48-5012Blsugmuag beverage intakeCurrent drinker of alcohol (finding)[facility] Work Phone: Start: 94-54-3943Vhwnlnp Commentcouple times a year [facility] Work Phone: Start: 31-47-2001Gzc assigned at birthNot on file [facility] Work Phone: Start: 01-30-2024 End: 24-09-3940Ayyharlk to SARS-CoV-2 (event)Not sureUnKeenan Private HospitalStart: 07-09-2024 End: 55-23-6373HarCegvys (finding)[facility] Medical CenterTobacco smoking status NHISTobacco smoking consumption unknownNOMS HealthcareStart: 27-45-5902Wlmgds identityIdentifies as female gender (finding)[facility] Clinical Notes 03-20-2012 to 06-24-2025 Note Date & KjfdYuptAqyxjnuh69-04-7026 NotePhysical Therapy Cancellation note for Monday06/24/2025 Pt per nursing is currently getting ready to be discharged to home from the hospital , pt is sitting in a wheelchair with her street clothes on . No therapy services . Attempted time : 14:45-14:46[facility]10-28-2025 NoteHospital Medicine Discharge Summary Admission Date: 06/21/2025 9:55 AM Total duration of encounter: 3 days Final Discharge Diagnosis: Principal Problem: Chest pain Active Problems: Benign essential hypertension COPD (chronic obstructive pulmonary disease) ([facility]) Paroxysmal supraventricular tachycardia Mitral regurgitation Tricuspid regurgitation Acute on chronic heart failure with preserved ejection fraction (HFpEF) ([facility]) Pulmonary HTN ([facility]) Acute hypoxic respiratory failure ([facility]) Chronic hypoxic respiratory failure, on home oxygen therapy ([facility]) NSTEMI (non-ST elevated myocardial infarction) ([facility]) Nonobstructive CAD Chronic diastolic heart failure ([facility]) Admission Diagnosis: Chest pain [R07.9] Hospital course: Aleksandr Sanchez is a 84 y.o. female with a past medical history significant for SVT, COPD, HFpEF, HLD, pulmonary HTN. Patient presented with chest pain to [facility]. EKG showed sinus rhythm with RBBB. Peak troponin 603 now down trending. She was initiated on a heparin gtt and transferred to [facility] for further management of NSTEMI. Patient had last cardiac cath 2018 and was negative for significant coronary artery disease. Echo was done and showed EF 55%. Doppler study suggested moderately elevated right-sided pressures. There is suggestion of an atrial septal defect. [...] spironolactone along with home torsemide. Dear DO Xie Patricia is advised to follow up with you within 1-2 weeks. Items to follow up in ambulatory setting: None Follow-up with: None Scheduled appointments: Future Appointments Date Time Provider Department Center 07/02/2025 3:20 PM Artem Marroquin CNP [facility] Your medication list START taking these [...] mcg/actuation nasal spray Commonly known as: Flonase svjhnuvemwa-dkjggtqrn-moydackt 100-62.5-25 mcg blister with device latanoprost 0.005 [...] Medications These medications were sent to [facility] - [place], [place] - [address], [facility] [address] lisinopril 5 mg tablet spironolactone 25 mg tablet Aleksandr is allergic to codeine. Disposition: Home or Self Care () Discharge Condition: Stable Code Status: Prior Diagnostic Results Hematology: Results from last 7 days Lab Units 06/24/25 0441 06/22/25 0501 06/21/25 1015 WBC AUTO 10*3/uL -- 10.54 11.80* HEMOGLOBIN g/dL 10.9* 11.6* 12.8 HEMATOCRIT % 34.9* 35.3* 39.0 MCV fL -- 94.1 93.5 PLATE (more content not included)...[facility] 06-24-2025 Note Attestation signed by Anushka Cruz MD at 06/24/2025 4:29 PM By using the attestations below, I agree [...] her valvular disease medically. We recommended medication adjustment as a pertains to ANNIE inhibitor and diuretic therapy. We arranged for a follow-up in the cardiology clinic. Anushka Cruz MD Cardiology Progress Note Subjective Subjective: Aleksandr Sanchez is a 84 y.o. female with a past medical history significant for SVT, COPD, HFpEF, HLD, pulmonary HTN. Of note, she had previous angina during episode of SVT, for this she underwent previous cardiac catheterization at [facility] on 01/01/2019, which did not show any significant coronary artery disease stenosis. She presented with chest pain to [facility]. According to family she had an episode of nausea, chest pain radiating to jaw and left arm, lightheadedness but no syncope on which resolved within a couple hours without treatment and then similar symptoms again yesterday which prompted visit to [facility]. EKG showed sinus rhythm with RBBB. Peak troponin 603 now down trending. She was initiated on a heparin gtt and transferred to [facility] for further management of NSTEMI. Once at [facility], she was started on DAPT with aspirin and Plavix, she underwent RHC/Cors on 06/23/2025-CORS unremarkable with nonobstructive CAD varying from 20-30% stenosis involving LAD, RCA, Lcx. RHC also unremarkable. Plavix was since discontinued and remained [...] dilation moderate MR, moderate/severe TR RVSP consistent with severe pulmonary hypertension (RVSP 60.8 mmHg) Cors 06/23/2025: [...] lb 3.2 oz) 06/24/25 0444 133/79 37.1 ???C (98.8 ???F) Temporal 76 22 97 % -- 06/24/25 0025 115/51 36.3 ???C (97.3 ???F) Temporal 72 16 97 % -- 06/23/25 2151 139/69 -- -- 87 21 95 % -- 06/23/25 2100 (!) 126/49 -- -- 81 23 95 % -- 06/23/251999 128/58 36.9 ???C (98.4 ???F) Temporal 87 23 97 % -- 06/23/25 [...] 1054 154/62 -- -- 82 17 94 (more content not included)...[facility]10-27-2025 NoteAdult Nutrition Assessment: Name: Aleksandr Sanchez Date: 1940 [...] 2.1 06/21/2025 1015 HGB 11.6 (L) 06/22/2025 050 WBC 10.54 06/22/2025 0501 BNP 539 Elevated troponin Allergies: Allergies[2] Nutrition Problems: Swallowing Assessment: Swallow screen 06/23 Mouth: upper and lower dentures Abdominal Assessment: Last BM 06/21 I/O: Net fluid: +1.1 L Appetite: Decreased past few months Cognition: A/O x4 Feeding Skills: Good access to food 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 Upon discharge, she plans to move to [place] with her son. Per family, appetite has been decreased since [...] Request Once Comments: Pancake, coffee, 2% milk, Winters sausage, 1 white toast with 2 strawberry jelly 06/22/25 0752 06/21/25 1822 Special Kitchen Request Once Comments: Omelet with comoran cheese, grits with sugar, butter, 1 [place] and 1 mchugh jello 2% milk 06/21/25 1822 Intakes: 50-100% x3 meals Nutrition Risk: High Nutrition Needs: Needs based on: actual body weight (42.1 kg) Calorie needs: 1647-4205 kcals/day based on 25-30 kcal/kg Protein needs: 42-51 g/day based on 1-1.2 g/kg Fluid needs: 1263 ml/day based on 30 ml/kg Nutrition Diagnosis: Inadequate oral intake r/t decreased appetite aeb pt and family report, non-significant wt changes over past few months Malnutrition Assessment: Per Registered Dietitian assessment and evaluation, patient does not currently meet criteria OR there is not enough information to support the diagnosis of malnutrition per the clinical criteria set by the Academy of Nutrition and Dietetics (AND) and the [place] Society of Enteral and Parenteral Nutrition (ASPEN). [...] To reach the Clinical Dietitian, please utilize [employer] chat Monday-Monday (more content not included)...[facility]10-27-2025 Note Patient: Aleksandr Sanchez Procedure Information Date/Time: 06/23/25 1345 Procedures: Coronary angiography Right heart cath Location: [facility] CHART SNATCHER 3 / [facility] (Cath) Providers: Nestor Beyer MD [...] products. Plan discussed with attending. Additional Equipment RequestsUnSt. John of God Hospital10-27-2025 Note Physical Therapy Physical Therapy Evaluation Patient Name: [...] pain and SOB. Elevated troponins, NSTEMI, R BBB. PT Diagnosis: Impaired [...] difficulty General Assessment General Assessment Hearing: Mild AGUA CALIENTE Hand Dominance: Right Home Living Home Living [...] Level of Function Prior Function Level of [place]: Independent with ADLs and functional transfers, Independent [...] T-Score: 20 Assessment/Plan PT Assessment Impairments: Decreased endurance (more content not included)...[facility]10-27-2025 NotePatient has history of heart failure preserved EF based on echo in March 16 2555 to 60%, NYHA class IV Patient seems well compensatedUnSt. John of God Hospital10-27-2025 Note Continue above-mentioned medicationUnSt. John of God Hospital10-27-2025 Note- Resume home inhalers, patient currently on Dulera and Incruse Ellipta [facility]10-27-2025 Note- Trops trending down in the last one of 94 - EKG consistent with sinus rhythm right bundle branch block Last cardiac cath 2019 negative for significant coronary artery disease - Continue heparin gtt, plan for echo and cardiac cath today -Continue aspirin, Plavix, pravastatin, lisinopril and Lopressor - Patient is DNRCCAUnSt. John of God Hospital10-27-2025 Note- on 1L home O2. StableMain [facility] Center10-27-2025 NoteHospital Medicine Daily Progress Note - 06/23/2025 10:00 AM; Room: [address] [place] [address] Admission: 06/21/2025 9:55 AM; Length of stay: 2 days THE HOSPITALIST TEAM PREFERS TO USE RadarFind FOR NON-URGENT COMMUNICATION 7AM-7PM. IF I DO NOT RESPOND WITHIN 20 MINUTES OR URGENT MATTERS, PLEASE CALL THROUGH THE MILK ROUTE SUPERVISOR. FROM 7PM-7AM, PLEASE PAGE [phone](COVR). Code Status: DNR CC-A Barriers to Discharge: [...] Vitals BP 113/52 Pulse 65 Temp 36.2 ???C (97.2 ???F) (Temporal) Resp 23 Intake/Output Summary (Last 24 hours) at 06/23/2025 1000 Last data filed at 06/22/2025 1400 Gross per 24 hour Intake 480 ml Output -- Net 480 ml Estimated body mass index is 18.12 kg/m??? as calculated from the following: Height as of this encounter: 1.524 m (5'). Weight as of this encounter: 42.1 kg (92 lb 12.8 oz). Assessment and Plan Assessment & Plan Chest pain NSTEMI (non-ST elevated myocardial infarction) ([facility]/HCC) Paroxysmal supraventricular tachycardia - Trops trending down in the last one of 94 - EKG consistent with sinus rhythm right bundle branch block Last cardiac cath 2019 negative for significant coronary artery disease - Continue heparin gtt, plan for echo and cardiac cath today -Continue aspirin, Plavix, pravastatin, lisinopril and Lopressor - Patient is DNRCCA COPD (chronic obstructive pulmonary disease) ([facility]) - Resume home inhalers, patient currently on Dulera and Incruse Ellipta Benign essential hypertension Continue above-mentioned medication Chronic hypoxic respiratory failure, on home oxygen therapy ([facility]) - on 1L home O2. Stable Chronic diastolic heart failure ([facility]) Patient has history of heart failure preserved [...] , FREET4 , CORTISOL , FEV1 , [id number] , DLCO , RVSP , HDL , LDL No results found for: [id number] , IRON , TIBC , C3 , C4 , TIMOTHY , CANCA , ASO , PSA , CEA , CA125 , CA199 , AFP , CA153 Imaging Complete Echo (TTE) w/wo Imaging Agent, Strain, 3D, Bubble Study 1 1 [facility] Heart Station [address] [place] [address] [phone] (fax) Echocardiogram-[facility] Name: ALEKSANDR SANCHEZ Study Date: 06/21/2025 10:38 AM B/P: 150 mmHg/67 mmHg HR: Date of : 1940 Location: [facility] Height: 60 in. Age: 84 year(s) [...] abnormality. Right Ventricle: The right ventricle is enlar (more content not included)...[facility]10-27-2025 NoteOccupational Therapy Occupational Therapy Evaluation Patient Name: Aleksandr [...] pain and SOB. Elevated troponins, NSTEMI, R BBB. OT Diagnosis: impaired [...] Intact General Assessment General Assessment Hearing: Mild AGUA CALIENTE Skin Integrity: all visible skin intact Hand [...] Level of Function Prior Function Level of [place]: Independent with ADLs and functional transfers, Independent [...] to Standin-20 mins Activity Tolerance Comments: tolerating (more content not included)...[facility]10-27-2025 Note Attestation signed by Anushka Cruz MD at 06/23/2025 7:47 PM By using the attestations below, I agree [...] be an additional personal documentation from me. Anushka Cruz MD Cardiology Progress Note Subjective Subjective: Aleksandr Ortiz Joce is a 84 y.o. female with a past medical history significant for SVT, COPD, HFpEF, HLD, pulmonary HTN. Of note, she had previous angina during episode of SVT, for this she underwent previous cardiac catheterization at [facility] on 01/01/2019, which did not show any significant coronary artery disease stenosis. She presented with chest pain to [facility]. According to family she had an episode of nausea, chest pain radiating to jaw and left arm, lightheadedness but no syncope on which resolved within a couple hours without treatment and then similar symptoms again yesterday which prompted visit to [facility]. EKG showed sinus rhythm with RBBB. Peak troponin 603 now down trending. She was initiated on a heparin gtt and transferred to [facility] for further management of NSTEMI. Cardiology workup: Echo 06/21/2025: EF 55%, no RWMA, RV enlarged, severe LA enlargement, possible ASD, mod-severe MR, mod-severe TR CORS 01/01/2019: negative for CAD Echo 09/01/2023: EF 55-60%, moderate RA dilation moderate MR, moderate/severe TR RVSP consistent with severe pulmonary hypertension (RVSP 60.8 mmHg) Cors 06/23/2025: [...] 96 % -- 06/23/25 0025 119/57 36.2 ???C (97.2 ???F) Temporal 79 22 100 % -- 06/22/251954 119/57 36.4 ???C (97.5 ???F) Temporal 84 23 97 % -- 06/22/25 1600 114/53 36.4 ???C (97.6 ???F) Temporal 82 19 97 % -- 06/22/25 1208 94/50 36.6 ???C (97.8 ???F) Temporal 72 21 97 % -- 06/22/25 0938 104/56 -- -- 87 22 95 % -- 06/22/25 0935 -- -- -- -- -- 95 % -- 06/22/25 0737 123/59 36.1 ???C (97 ???F) Temporal 77 20 94 % -- Physical [...] Value Ventricular Rate 78 Atrial Rate 78 SD Interval 126 QRS DURATION 134 QT Interval 418 QTC CALCULATION(BAZETT) 476 P [place] 61 R-[place] 88 T Wave [place] 25 Impression Sinus rhythm with Premature atrial complexes Possible Left atrial enlargement Right bundle branch block Abnormal ECG No previous ECGs available Confirmed by Bautista Bliss ([id number]) on 06/21/2025 1:20:56 PM No results found for: CKTOTAL , CKMB , CKMBINDEX , TROPONINI Complete Echo (TTE) w/wo Imaging Agent, Strain, 3D, Bubble Study Result Date: 06/22/2025 1 1 [facility] Heart Station [address] [place] [address] [phone] (fax) Echocardiogram-[facility] Name: ALEKSANDR SANCHEZ Study Date: 06/21/2025 10:38 AM B/P: 150 mmHg/67 mmHg HR: Date of : 1940 Location: [facility] Height: 60 in. Age: 84 year(s) [...] ventricular systolic function. Doppler studies suggest moderately elevate (more content not included)...[facility]10-26-2025 Note- Trops trending down in the last one of - EKG consistent with sinus rhythm right bundle branch block Last cardiac cath 2018 negative for significant coronary artery disease - Continue heparin gtt, plan for echo as well as Lexiscan stress test in a.m. -Continue aspirin, Plavix, pravastatin, lisinopril and Lopressor - Patient is DNRCCAUnSt. John of God Hospital10-26-2025 NotePatient has history of heart failure preserved EF based on echo in March 165 to 60%, NYHA class IV Patient seems well compensatedUnSt. John of God Hospital10-26-2025 Note - on 1L home O2. StableUnSt. John of God Hospital10-26-2025 Note- Resume home inhalers, patient currently on Dulera and Incruse ElliptaUnSt. John of God Hospital10-26-2025 NoteContinue above-mentioned medication [facility]10-26-2025 NoteHospital Medicine Daily Progress Note - 06/22/2025 10:34 AM; Room: [address] [place] [address] Admission: 06/21/2025 9:55 AM; Length of stay: 1 days THE HOSPITALIST TEAM PREFERS TO USE [employer]arFind FOR NON-URGENT COMMUNICATION 7AM-7PM. IF I DO NOT RESPOND WITHIN 20 MINUTES OR URGENT MATTERS, PLEASE CALL THROUGH THE MILK ROUTE SUPERVISOR. FROM 7PM-7AM, PLEASE PAGE [phone](COVR). Code Status: DNR CC-A Barriers to Discharge: [...] Vitals BP 104/56 Pulse 87 Temp 36.1 ???C (97 ???F) (Temporal) Resp 22 Intake/Output Summary (Last 24 hours) at 06/22/2025 1034 Last data filed at 06/22/2025 0900 Gross per 24 hour Intake 672.2 ml Output -- Net 672.2 ml Estimated body mass index is 17.85 kg/m??? as calculated from the following: Height as of this encounter: 1.524 m (5'). Weight as of this encounter: 41.5 kg (91 lb 6.4 oz). Assessment and Plan Assessment & Plan Chest pain NSTEMI (non-ST elevated myocardial infarction) ([facility]) Paroxysmal supraventricular tachycardia - Trops trending down in the last one of - EKG consistent with sinus rhythm right bundle branch block Last cardiac cath 2018 negative for significant coronary artery disease - Continue heparin gtt, plan for echo as well as Lexiscan stress test in a.m. -Continue aspirin, Plavix, pravastatin, lisinopril and Lopressor - Patient is DNRCCA COPD (chronic obstructive pulmonary disease) ([facility]) - Resume home inhalers, patient currently on Dulera and Incruse Ellipta Benign essential hypertension Continue above-mentioned medication Chronic hypoxic respiratory failure, on home oxygen therapy ([facility]) - on 1L home O2. Stable Chronic diastolic heart failure ([facility]) Patient has history of heart failure preserved [...] , FREET4 , CORTISOL , FEV1 , [id number] , DLCO , RVSP , HDL , LDL No results found for: [id number] , IRON , TIBC , C3 , C4 , TIMOTHY , CANCA , ASO , PSA , CEA , CA125 , CA199 , AFP , CA153 Imaging ECG 12 lead Sinus rhythm with Premature atrial complexes Possible Left atrial enlargement Right bundle branch block Abnormal ECG No previous ECGs available Confirmed by Bautista Bliss ([id number]) on 06/21/2025 1:20:56 PM XR chest 1 view Narrative: XR CHEST 1 VIEW 06/21/2025 10:17 AM CLINICAL INDICATIONS: Shortness of breath COMPARISON: None FINDINGS: Cardiac silhouette and pulmonary vessels are within normal limits. No pneumothorax. No infiltrate or pleural effusion. Impression: No acute pulmonary process. Electronically signed: Blayne Dwyer. Discharge Planning Signed Darshana Barriga MD [facility] Medicine 06/22/2025 10:34 [facility]10-26-2025 Note Attestation signed by Bautista Bliss MD at 06/23/2025 11:21 AM By using the attestations below, the signing clinician agrees that I have read and verify that the documentation has been personally reviewed by me and ensure that the documentation accurately reflects the encounter. GC: I performed the flores portion(s) of the service and participated in the management and confirm the resident's documentation. Please note there may be an additional personal documentation from me. Cardiology Progress Note Subjective Subjective: Aleksandr Sanchez is a 84 y.o. female with a past medical history significant for SVT, COPD, HFpEF, HLD, pulmonary HTN. Patient presented with chest pain to [facility]. According to family she had an episode of nausea, chest pain radiating to jaw and left arm, lightheadedness but no syncope on which resolved within a couple hours without treatment and then similar symptoms again yesterday which prompted visit to [facility]. EKG showed sinus rhythm with RBBB. Peak troponin 603 now down trending. She was initiated on a heparin gtt and transferred to [facility] for further management of NSTEMI. Interval [...] % -- -- 06/22/25 0737 123/59 36.1 ???C (97 ???F) Temporal 77 20 94 % -- -- 06/22/25 0542 -- -- -- -- -- -- -- 41.5 kg (91 lb 6.4 oz) 06/22/25 0410 119/60 36.7 ???C (98.1 ???F) -- 80 17 95 % -- -- 06/21/25 2333 109/52 36.7 ???C (98.1 ???F) -- 79 24 96 % -- -- 06/21/25 2042 130/52 36.8 ???C (98.2 ???F) Temporal 94 19 96 % -- -- 06/21/25 1606 134/60 36.4 ???C (97.6 ???F) Temporal 80 20 98 % -- -- 06/21/25 1136 164/69 36.6 ???C (97.8 ???F) Temporal 87 16 100 % -- -- 06/21/25 1042 -- -- -- -- -- -- 1.524 m (5') 42.3 kg (93 lb 3.2 oz) 06/21/25 1031 150/67 36.8 ???C (98.2 ???F) Temporal 93 20 91 % -- -- [...] Value Ventricular Rate 78 Atrial Rate 78 SD Interval 126 QRS DURATION 134 QT Interval 418 QTC CALCULATION(BAZETT) 476 P [place] 61 R-[place] 88 T Wave [place] 25 Impression Sinus rhythm with Premature atrial complexes Possible Left atrial enlargement Right bundle branch block Abnormal ECG No previous ECGs available Confirmed by Bautista Bliss ([id number]) on 06/21/2025 1:20:56 PM No results [...] No previous ECGs available Confirmed by Bautista Bliss ([id number]) on 06/21/2025 1:20:56 PM XR chest [...] Amber Escobar MD PGY-2 Internal Medicine Resident [facility] CenterUnSt[facility]10-25-2025 Note- Given the likely inconsistent medication/metoprolol administration, concern she could have gone into SVT, explaining the PVCs and the complete resolution of CP now that she is in sinus. - Cardiology onboard - Trend trops/EKGs - Lexiscan in AM - Tte pending - Continue heparin gtt - Patient is DNRCCAUnSt. John of God Hospital10-25-2025 Note- on 1L home O2. StableUnSt. John of God Hospital10-25-2025 NoteContinue lisinopril and metoprololUnSt. John of God Hospital10-25-2025 Note- Resume home inhalersUnSt. John of God Hospital10-25-2025 NoteCase was discussed with the MELBA on 06/21/2025. I personally saw the patient, reviewed the MELBA's history, exam, and medical decision-making (MDM). I agree with the assessment and plan unless otherwise noted below. The MELBA performed the substantive portion of the visit. Physical Exam: Visit Vitals BP 104/56 Pulse 87 Temp 36.1 ???C (97 ???F) (Temporal) Resp 22 Cardiology: Normal rate, regular rhythm. Lungs: Clear to auscultation, no wheezes, rales or rhonchi, symmetric air entry. Abdomen: Soft, non tender, non distended. Assessment/Plan: NSTEMI (Non-ST Elevation Myocardial Infarction) ([facility]/HCC) Paroxysmal Supraventricular Tachycardia Troponin levels are trending [...] tachycardia; cardiology has been consulted. Burton Mejias MDUnSt. John of God Hospital10-25-2025 NoteHospital Medicine History and Physical 06/21/2025 10:12 AM THE HOSPITALIST TEAM PREFERS TO USE [employer] CHAT FOR NON-URGENT COMMUNICATION 7AM-7PM. IF I DO NOT RESPOND WITHIN 20 MINUTES OR URGENT MATTERS, PLEASE CALL THROUGH THE MILK ROUTE SUPERVISOR. FROM 7PM-7AM, PLEASE PAGE [phone](COVR). Chief Complaint No chief complaint on file. History of Present Illness Aleksandr Sanchez is an 84 y.o. female w a PMH of COPD, HFpEF, pulmonary HTN w concern for Cor Pulmonale, HTN, and SVT who came from [facility] as transfer with c/o CP and SOB. She was out with her family and began to have palpitations associated with chest pain which radiated to her jaw and left arm as well as dizziness/lightheadedness/hypotension. She presented to [facility] ED and hstrops there trended up [...] Chest pain NSTEMI (non-ST elevated myocardial infarction) ([facility]) Paroxysmal supraventricular tachycardia - Given the likely inconsistent medication/metoprolol administration, concern she could have gone into SVT, explaining the PVCs and the complete resolution of CP now that she is in sinus. - Cardiology onboard - Trend trops/EKGs - Lexiscan in AM - Tte pending - Continue heparin gtt - Patient is DNRCCA COPD (chronic obstructive pulmonary disease) ([facility]) - Resume home inhalers Benign essential hypertension Continue lisinopril and metoprolol Pulmonary HTN ([facility]) Chronic hypoxic respiratory failure, on home oxygen therapy ([facility]) - on 1L home O2. Stable VTE [...] this hospital stay by a member of [facility] Medicine. Past Medical History Medical History[1] Past Surgical History Surgical History[2] Social History Social H (more content not included)...[facility] 06-05-2025 NoteCardiovascular Medicine [facility] SUBJECTIVE Chief Complaint Patient presents [...] follow-up after her recent admission to [facility]. PMHx: SVT, COPD, HFpEF, pulmonary HTN, [...] edema, dizziness/LH, palpitations *She previous saw a stone rubber at [facility]. She would like to transfer her care to [facility]. 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 Denies c/o CP, orthopnea, PND, LE [...] Rfl: 3 potassium chlo (more content not included)...[facility] 06-04-2025 History of Present illness Narrative* Nan [...] 06/04/2025 4:00 PM EDT documented in this encounterSainte Genevieve County Memorial [id number] Evaluation note* Diagnosis Onset Date Resolution Status Admit Date COPD (chronic obstructive pulmonary dise ase) acuteAugust 2024 8:33amGERD (gastroesophageal reflux disease)chronicAugust 2024 8:33amCOPD (chronic obstructive pulmonary disease)acuteNov2024 10:17amNSTEMI (non-ST elevated myocardial infarction)acuteNov2024 10:17am [facility] Work Phone: 1(580) 311-942308-12-2025 NoteUT Electrophysiology Consult Note [facility] Reason for visit: AT. HPI: Aleksandr Sanchez is a 84 y.o. year old with past medical history of acute on chronic diastolic heart failure, pulmonary hypertension, SVT likely atrial tachycardia, COPD who has been under the care of Dr. CID and Maraim Marroquin. For the above she has been [...] cor pulmonale Patient will have follow-up with Dredge Pump Operator as well as cardiology for her chronic conditions. It is quite possible that as time goes on she may have underlying A-fib and at that time we will consider either implanting a loop monitor for further surveillance. Bautista Bliss MD Cardiac Electrophysiology [facility] [1] Past Medical History: Diagnosis Date CHF (congestive heart failure) (CMS/HCC) COPD (chronic obstructive pulmonary disease) (CMS/HCC) Hyperlipidemia Hypertension [2] Past Surgical History: Procedure Laterality Date APPENDECTOMY CARDI (more content not included)...[facility] 03-20-2025 NoteCardiovascular Medicine [facility] SUBJECTIVE Chief Complaint Patient presents with Congestive Heart Failure Pulmonary Hypertension Aleksandr Sanchez is a 84 y.o. female here for follow-up after her recent admission to [facility]. PMHx: SVT, COPD, HFpEF, pulmonary HTN, [...] edema, dizziness/LH, palpitations *She previous saw a stone rubber at [facility]. She would like to transfer her care to [facility]. Discharge summary: Hospital Course: Patient admitted [...] normal. Palpations: Abdomen is (more content not included)...[facility]07-24-2025 NotePatient is here today for results of [...] on exertion. Respiratory: Positive for shortness of breath.[facility]07-21-2025 Evaluation note* Author Aleksandr Olivo [facility] Medical CenterAuthoredJuly 2024 10:07amThe above note written by CHAZ Hadley acting as human recorder, note dictated by Dr. Sheldon Xie. [facility] Work Phone: 1(690) 176-795307-03-2025 NoteCardiovascular Medicine [facility] SUBJECTIVE Aleksandr Sanchez is a [...] edema, dizziness/LH, palpitations *She previous saw a stone rubber at [facility]. She would like to transfer her care to [facility]. Discharge summary: Hospital Course: Patient admitted [...] this encounter. #Chronic diastol (more content not included)...[facility]06-12-2025 NotePatient is a new patient here to establish care and to be seen from a [facility] admission. Patient states she is feeling better. Patient was discharge home on 1lpm of o2 via n/c, o2 use is 24/7. Patient has CARUSO. Review of Systems Cardiovascular: Positive for dyspnea on exertion. Respiratory: Positive for shortness of breath.[facility]06-12-2025 NoteCardiovascular Medicine [facility] SUBJECTIVE Chief Complaint Patient presents with Hospital Follow-up Aleksandr Sanchez is a 84 y.o. female here for follow-up after her recent admission to [facility]. PMHx: SVT, COPD, HFpEF, pulmonary HTN, [...] edema, dizziness/LH, palpitations *She previous saw a stone rubber at [facility]. She would like to transfer her care to [facility]. Discharge summary: Hospital Course: Patient admitted [...] 10mg daily. -Discussed im (more content not included)...[facility] 01-01-2025 History of Present illness Narrative* Nan [...] 01/01/2025 3:43 PM EDT documented in this encounterSainte Genevieve County Memorial [id number] Evaluation note* Diagnosis Onset Date Resolution Status Admit Date Hyperlipidemia acuteApril 2024 1:46pmHypertensionacuteApril 2024 1:46pmOsteoporosis acuteApril 2024 1:46pmWeight lossacuteApril 2024 1:46pmCHF (congestive heart failure)acuteJune 2024 1:06pmCOPD (chronic obstructive pulmonary disease)acuteJune 2024 1:06pmOsteoporosisacuteJune 2024 1:06pmOxygen dependentacuteJune 2024 1:06pmPneumoniaacuteJune 2024 1:06pmType 2 myocardial infarctionacuteJune 2024 1:06pmCHF (congestive heart failure)acuteJuly 2024 9:08amHypernatremiaacuteJuly 2024 9:08amPneumoniaacuteJuly 2024 9:08am [facility] Work Phone: 1(621) 385-226804-09-2025 History of Present illness Narrative* Nan Anna [...] 12/04/2024 1:00 PM EDT documented in this encounterNOI-70 Community [id number] Telephone encounter Note* Telephone Encounter - RAGHAV Ventura - 09/20/2024 4:33 PM EST Blocked time for HAF in [place] at 10:00 am on 11-13-2024 [facility]Children[facility] [id number] Miscellaneous Notes* Telephone Encounter - RAGHAV Ventura - 09/20/2024 4:33 PM EST Blocked time for HAF in [place] at 10:00 am on 11-13-2024 documented in this [facility]01-24-2025 Telephone encounter Note* Telephone Encounter - RAGHAV Ventura - 09/20/2024 4:28 PM EST Called [employer] and we have a 90 day fit period before any issues arise. According to the rep, as long as these aids are dispensed before 12-18-24, all is fine. Pt will call once she returns from [place] and can be fit with the aids when she returns. This will not affect her 60 day trial. NOMS [id number] Miscellaneous Notes* Telephone Encounter - RAGHAV Ventura - 09/20/2024 4:28 PM EST Called [employer] and we have a 90 day fit period before any issues arise. According to the rep, as long as these aids are dispensed before 12-18-24, all is fine. Pt will call once she returns from [place] and can be fit with the aids when she returns. This will not affect her 60 day trial. documented in this [facility]01-24-2025 History of Present illness Narrative* RAGHAV Ventura - 09/20/2024 1:00 PM EST History: Patient was referred for an audiological evaluation. She has benefits under her [employer] plan. Patient is currently wearing a [...] portal. She mentioned she is traveling for [place] in 2 weeks and will be gone for 1 month. Pt will need to be scheduled for HAF when she returns, Will call [facility] to see if they can hold order. documented in this encounterSainte Genevieve County Memorial [id number] Evaluation note* Author Selene [facility] 2024 2:01pmThe above note written by Selene WARE acting as human recorder, note dictated by Dr. Sheldon Xie. [facility] Work Phone: 1(354) 393-852909-19-2024 Evaluation note* Author Selene [facility] 2023 8:36amThe above note written by Selene WARE acting as human recorder, note dictated by Dr. Sheldon Xie. Author Aleksandr Olivo [facility] 2023 1:06pmThe above note written by CHAZ Hadley acting as human recorder, note dictated by Dr. Sheldon Xie. [facility] Work Phone: 1(909) 924-719809-19-2024 Evaluation note* Author Selene [facility] 2023 7:36amThe above note written by Selene WARE acting as human recorder, note dictated by Dr. Sheldon Xie. Author Aleksandr Olivo [facility] 2023 12:06pmThe above note written by CHAZ Hadley acting as human recorder, note dictated by Dr. Sheldon Xie. [facility] Work Phone: 1(404) 569-286807-23-2024 Evaluation note* Author Alba Person [facility] 2023 2:12pmSooner if needed, the ER if concerns,The above note written by Alba Person LPN acting as human recorder, note dictated by Dr. Sheldon Xie [facility] Work Phone: 1([phone]) 869-510107-23-2024 Evaluation note* Author Alba Person [facility] 2023 2:12pmSooner if needed, the ER if concerns,The above note written by Alba Person LPN acting as human recorder, note dictated by Dr. Sheldon Xie Author Selene Storey [facility] 2023 8:36amThe above note written by Selene WARE acting as human recorder, note dictated by Dr. Sheldon Xie. [facility] Work Phone: 1(321) 722-487906-14-2024 History of Present illness Narrative* Ronnie Amin [...] each nostril once daily., Disp: , Rfl: bqvhqjafoqj-kddxoywae-osiazksu (TRELEGY-ELLIPTA) 100-62.5-25 mcg blister with device, Inhale [...] DAILY, Disp: 90 tablet, Rfl: 3 vit A-X-rtzkdm-zinc-lutein (Eye Multivit-Lutein,C-E-Cu-Zn,) 226 mg-90 mg-2 mg- 34.8 [...] name below, I, Ayleen QuiñonesMeghan YODER , Scribe attest that this documentation has been prepared under the direction and in the presence of Alex Amin MD. Provider Attestation - Scribe documentation All medical record entries made by the Scribe were at my direction and personally dictated by me. Veeave reviewed the chart and agree that the record accurately reflects my personal performance of the history, physical exam, discussion and plan. documented in this encounterMercer County Community Hospital Work Phone: 1(260) 446-270306-14-2024 Instructions* Patient Instructions* Roxann Zamora CMA - [...] time of your visit. documented in this [facility] Work Phone: 1(775) 779-936806-03-2024 Evaluation note* Author Selene [facility] 2023 11:20amThe above note written by Selene WARE acting as human recorder, note dictated by Dr. Sheldon Xie. Author Aleksandr Olivo [facility] 2023 12:48pmThe above note written by CHAZ Hadley acting as human recorder, note dictated by Dr. Sheldon Xie. [facility] Work Phone: 1(424) 877-911006-03-2024 Evaluation note* Author Selene [facility] 2023 11:20amThe above note written by Selene WARE acting as human recorder, note dictated by Dr. Sheldon Xie. Author Alba Person [facility] 2023 2:12pmSooner if needed, the ER if concerns,The above note written by Alba Person LPN acting as human recorder, note dictated by Dr. Sheldon Xie [facility] Work Phone: 1(773) 122-375903-20-2024 Evaluation note* Author Aleksandr Olivo [facility] 2023 12:56pmThe above note written by CHAZ Hadley acting as human recorder, note dictated by Dr.Brett Xie . [facility] Work Phone: 1(344) 443-563003-20-2024 Evaluation note* Author Aleksandr Olivo [facility] 2023 12:56pmThe above note written by CHAZ Hadley acting as human recorder, note dictated by Dr.Brett Xie . Author Aleksandr Olivo [facility] CenterAuthoredApril 2023 12:48pmThe above note written by CHAZ Hadley acting as human recorder, note dictated by Dr. Sheldon Xie. [facility] Work Phone: 1([phone]) 293-921903-20-2024 Evaluation note* Author Aleksandr Olivo [facility] CenterAuthoredMarch 2023 12:56pmThe above note written by CHAZ Hadley acting as human recorder, note dictated by Dr.Brett Xie . Author Selene Store[facility]June 2023 11:20amThe above note written by Selene WARE acting as human recorder, note dictated by Dr. Sheldon Xie. Author Aleksandr Olivo [facility] 2023 12:48pmThe above note written by CHAZ Hadley acting as human recorder, note dictated by Dr. Sheldon Xie. [facility] Work Phone: 1([phone]) 780-587512-13-2023 Evaluation note* Encounter Date Diagnosis Assessment Notes Treatment Notes Treatment Clinical Notes Jul, COPD (chronic obstructive pulmon raman disease) (ICD-10 - J44.9) Jul,yspnea (ICD-10 - R06.00) [place] [facility] Other 11-07-2023 Evaluation note* Encounter Date Diagnosis Assessment Notes Treatment Notes Treatment Clinical Notes Jun, COPD (chronic obstructive pulmon raman disease) (ICD-10 - J44.9) Today will be the patients fourth session of respiratory therapy at [facility]. I am in agreement the patient [...] ordered to be collected in three months, [facility] Other 10-03-2023 Evaluation note* Encounter Date Diagnosis [...] been under the care of Dr. Christina, Dredge Pump Operator, for her COPD but her last [...] has been completed and will forward to [facility]. She is considering pulmonary rehab and [...] dose flu vaccine provided today. VIS provided [facility] Other 09-05-2023 Evaluation note* Encounter Date Diagnosis Assessment Notes Treatment Notes Treatment Clinical Notes Apr, RLS (restless legs syndrome) (IC D-10 - G25.81) [facility] Other 04-25-2023 Evaluation note* Encounter Date Diagnosis [...] treatment. Patient f/u on a PRN basis. [facility] Other 04-04-2023 Evaluation note* Encounter Date Diagnosis [...] use. I did recommend she consult an regulatory attorney and discuss her wishes with her family. [facility] Other 03-27-2023 Evaluation note* Encounter Date Diagnosis Assessment Notes Treatment Notes Treatment Clinical Notes Oct, Osteoporosis (ICD-10 - M81.0) [facility] Other 02-02-2023 Evaluation note* Encounter Date Diagnosis [...] effects. She is to continue as directed. [facility] Other 02-02-2023 Evaluation note* Encounter Date Diagnosis Assessment Notes Treatment Notes Treatment Clinical Notes Sep, Osteopenia (ICD-10 - M85.80) [facility] Other 01-31-2023 Evaluation note* Encounter Date Diagnosis [...] with lab results when they are completed. [facility] Other 01-19-2023 Evaluation note* Encounter Date Diagnosis [...] will schedule for [facility] Other 01-06-2023 Evaluation note* Encounter Date Diagnosis Assessment Notes Treatment Notes Treatment Clinical Notes Aug, Foot fracture, right (ICD-10 - S 92.901A) [facility] Other 01-06-2023 Evaluation note* Encounter Date Diagnosis [...] Continue with Tylenol as needed for pain. [facility] Other 01-05-2023 Evaluation note* Encounter Date Diagnosis [...] her and more than likely refer to care director rn. It appears to have possible fracture. She [...] patient and will review at next visit [facility] Other 12-08-2022 Evaluation note* Encounter Date Diagnosis Assessment Notes Treatment Notes Treatment Clinical Notes Jul, Restless legs syndrome (ICD-10 - G25.81) [facility] Other 12-02-2022 Evaluation note* Encounter Date Diagnosis Assessment Notes Treatment Notes Treatment Clinical Notes Jul, Acute cough (ICD-10 - R05.1) [facility] Other 10-27-2022 Evaluation note* Encounter Date Diagnosis [...] started the new inhalers ordered from the plastic molder, she has noticed worsened vision and she is concerned this may be causing her pressures to be elevated. She is scheduled to see eye doctor next month. Patient encouraged to contact plastic molder to advise of the visual changes and [...] if needed but she is to call plastic molder first. Voiced understanding [facility] Other 10-06-2022 Evaluation note* Encounter Date Diagnosis Assessment Notes Treatment Notes Treatment Clinical Notes May, Weight loss (ICD-10 - R63.4) May,bdominal pain, unspecified abdominal location (ICD-10 - R10.9) [facility] Other 09-27-2022 Evaluation note* Encounter Date Diagnosis [...] J44.9) Patient is following with Dr. Christina, Dredge Pump Operator, for her COPD. She does have [...] level. Apr,Needs flu shot (ICD-10 - Z23) [facility] Other 09-19-2022 Evaluation note* Encounter Date Diagnosis Assessment Notes Treatment Notes Treatment Clinical Notes Apr, Restless legs syndrome (ICD-10 - G25.81) [facility] Other 07-26-2022 Evaluation note* Encounter Date Diagnosis [...] This is to be continued. Lab ordered Feb,OPD (chronic obstructive pulmonary disease) (ICD-10 - J44.9) Patient does have known COPD and has been using the Trelegy daily and nebulizer as needed. She has noted some improvement with her breathing since she was started on a diuretic. Patient noted from stone rubber office that her oxygen level did drop significantly during ambulation and it was felt by the stone rubber that perhaps oxygen is needed and a pulmonary consult is warranted. I would like torefer patient to Dr. Christina for consultation. Patient is in agreement. Referral initiated. Feb,Edema, unspecified type (ICD-10 - R60.9) Patient was recently evaluated by Dr. Amin, Vehicle Body Maker, for the dyspnea that patient had been [...] - R06.09) Referral initiated to Dr. Christina, Dredge Pump Operator [facility] Other 06-15-2022 Evaluation note* Encounter Date Diagnosis Assessment Notes Treatment Notes Treatment Clinical Notes Jan, Restless legs syndrome (ICD-10 - G25.81) [facility] Other 05-25-2022 Evaluation note* Encounter Date Diagnosis Assessment Notes Treatment Notes Treatment Clinical Notes December, COPD (chronic obstructive pulmon raman disease) (ICD-10 - J44.9) [facility] Other 04-26-2022 Evaluation note* Encounter Date Diagnosis [...] assistance getting a new machine or refills. [facility] Other 04-07-2022 Evaluation note* Encounter Date Diagnosis [...] We will continue to monitor. Medication e-scribed. [facility] Other 03-30-2022 Evaluation note* Encounter Date Diagnosis Assessment Notes Treatment Notes Treatment Clinical Notes Oct, Hypertension (ICD-10 - I10) Blood pressure was WNL upon check in. Therefore, patient is to continue with the above medication regimen. Oct,eripheral arterial disease (ICD-10 - I73.9) Reviewed Dr. Jackson consult noted. Patient was cleared by vascular and no follow ups are neededat this time. Oct,epression, unspecified depression type (ICD-10 - F32.9) Patient [...] XR for patient to have done today. [facility] Other 02-23-2022 Evaluation note* Encounter Date Diagnosis Assessment Notes Treatment Notes Treatment Clinical Notes Sep, Osteoporosis (ICD-10 - M81.0) [facility] Other 02-22-2022 Evaluation note* Encounter Date Diagnosis Assessment Notes Treatment Notes Treatment Clinical Notes Sep, Restless legs syndrome (ICD-10 - G25.81) [facility] Other 02-10-2022 Evaluation note* Encounter Date Diagnosis Assessment Notes Treatment Notes Treatment Clinical Notes Sep, Osteoporosis (ICD-10 - M81.0) [facility] Other 10-14-2021 Evaluation note* Encounter Date Diagnosis [...] see her as needed in the future. [facility] Other 07-24-2012 History general Narrative - Reported* Type Description Date Medical History lipid panel- hzr-ims-T5-TSH-hemo globin A1c done 03-20-12 Medical Icynrzz61/17/12 CT [facility] [place] [facility] [place] [facility] [facility] done 04/03/13, 11/2018Medical HistoryColonoscopy done 2006Medical History Mammogram done in 2007Medical Pgnrgth39/10/13 LabsMedical Xyeydeq25/11/11- [facility]ukn[facility]12/13, 08/24/15 [place] [facility] [place] History09/15/15 [facility]38[facility]2016- skin cancer removed from left bottom eye lidMedical History09/12/16 mammogramMedical Historysacral fractureMedical HistoryhyperlipidemiaMedical HistoryHTNMedical Historyischemic colitisMedical Kdvkysz94/2021 community outreach vascular studiesMedical Nzhsvkx99/2021 DEXASurgical HistoryappendectomySurgical History hysterectomySurgical History2 ear surgeriesHospitalization Historysee above [facility] Other Evaluation noteNo InformationNortForever Other Evaluation noteNortForever Other Evaluation noteNortGuthrie [facility] Other Evaluation noteNo assessment information available [facility] Work Phone: Evaluation note* Diagnosis Onset Date Resolution Status Apnea, sleep acuteCOPD (chronic obstructive pulmonary disease)acute [facility] Work Phone: Evaluation note* Author Aleksandr Olivo [facility]oredOur [facility] 2023 12:56pmThe above note written by CHAZ Hadley acting as human recorder, note dictated by Dr.Brett Xie . [facility] Work Phone: Evaluation note* Diagnosis Benign essential hypertension- Primary Essential hypertension, benign Paroxysmal supraventricular tachycardia (CMS-HCC) Paroxysmal supraventricular tachycardia Mixed hyperlipidemia Former cigarette smoker Personal history of tobacco use, presenting hazards to health documented in this encounter [facility] Work Phone: Evaluation note* Author Selene Stoery [facility] CenterAuthoWindham Hospital 2024 1:01pmThe above note written by Selene WARE acting as human recorder, note dictated by Dr. Sheldon Xie. [facility] Work Phone: Evaluation note* Diagnosis Mixed [...] 1:46pmHypertensionacuteApril 2024 1:46pmWeight loss acuteApril 2024 1:46pm [facility] Work Phone: History general Narrative - ReportedNoAllegheny General Hospital [facility] Other History general Narrative - ReportedNoAllegheny General Hospital [facility] Other Reason for referral (narrative)* Consultation (Routine) - AuthorizedSpecialtyDiagnoses / ProceduresReferred By Contact Referred To ContactCardiology Diagnoses Paroxysmal supraventricular tachycardia ([facility]-HCC) Procedures Follow Up In Cardiology Ronnie Amin MD [address] [facility] [address], [address] [address] Celestina Khalil MD [address] [facility] [address], [address] [place] [address] Referral IDStatusReasonStart DateExpiration DateVisits RequestedVisits [id number]/ [facility] Work Phone: Reptpd for referral (narrative)No reason for referral information availableOhiohealth Dublin Methodist Hospital Work Phone: Family History Unknown Family Member Name Dates Details Family [...] angie Not Specified Coronary artery disease Unknown fatherDeceasedUnknownNot SpecifiedDeceasedUnknown Relationship Condition Age at Onset Recorded Date/T angie Not Specified Coronary artery disease Unknown DeceasedUnknownfatherDeceasedUnknown Relationship Condition Age at Onset Recorded Date/T angie mother Coronary artery disease Unknown DeceasedUnknownfatherDeceasedUnknown Summary Purpose Advance Directives Advance Directive Response Recorded Date/ Time Advance Directives No October 30 10:35am Advance Directive Response Recorded Date/ Time Advance Directives No October 30 9:35am Reason for Referral Reason 10/30/23 @ 10:30am consult and treat Diagnosis 1 COPD (chronic obstru ctive pulmonary disease) (J44.9) Referral Organization [facility] [place] Referring Provider First Name Sheldon Referring Provider Last Name Anne-Marie Referring Provider Specialty Family Prac nino Referred Organization [facility] Pulmonary Dise ase Referred Provider Dre Looney Referred Address [address],[place],[address] Referred Provider Specialty Pulmonary Di seases Referral Priority Routine Referral Appointment Date 2023-10-30 General Notes Ruby Valeron 023 03:15:11 PM >Received today and sent P2P. Patient has been scheduled Reason consult and treat wi th [facility] Diagnosis 1 Restless legs syndro me (G25.81) Diagnosis 2 Foot fracture, right (S92.901A) Referral Organization [facility] [place] Referring Provider First Name Sheldon Referring Provider Last Name Anne-Marie Referring Provider Specialty Family Prac nino Referred Provider Specialty Vascular Patricio rosa Referral Priority Routine Reason 09/02/22 @ 10:00am consult and treat Diagnosis 1 Foot fracture, right (S92.901A) Referral Organization [facility] [place] Referring Provider First Name Sheldon Referring Provider Last Name Long Referring Provider Specialty Family Prac nino Referred Organization [facility] Referred Provider Sammie Duran Referred Address [address] [place],[address] Referred Provider Specialty Nurse Practi tioner Referral Priority Routine Referral Appointment Date 2022-09-02 General Notes Pallavi Olivo 09:15:42 AM >pt will be going through [facility]- per [facility] pt will see a PHYSICAL METEOROLOGIST today 09/02/22 and request a full referral. I couldn't find the bone [facility] facility to send it myself [facility] 09/02/2022 10:38:16 AM >Not a problem. It fixed and sent this P2P [facility] 09/05/2022 10:47:49 AM >Office notes not locked yet [facility] 09/06/2022 10:03:07 AM >Telephone encounter was already sent by Sammie Duran Reason Patient is needing p ulmonary consult and treatment. Please call patient with appt date and time. Thanks. Diagnosis 1 COPD (chronic obstru ctive pulmonary disease) (J44.9) Referral Organization [facility] Aayush Duran Referring Provider First Name Sheldon Referring Provider Last Name Anne-Marie Referring Provider Specialty Family Prac nino Referred Organization Unknown Facility Referred Provider [...] February 9:08am Eustachian tube dysfunction March 17, 025 9:08am Hypernatremia March 17, 2025 9:08 am Pneumonia March 17, 2025 9:08 am COPD (chronic obstructive pulmonary dise ase) Griffith 14th, 2025 8:33am GERD (gastroesophageal reflux disease) A ugust 2024 8:33am Chief Complaint Admit Date CEA: 1 yr [...] myocardial infar ction) July 01, 2025 10:17am Additional Source Comments INFORMATION SOURCE (unrecogn ized section and content) DATE CREATED AUTHOR 02/09/2022 [employer] DATE CREATED AUTHOR AUTHOR'S ORGANIZ ATION 01/11/2023 [facility] DATE CREATED AUTHOR AUTHOR'S ORGANIZ ATION 10/01/2023 [facility] DATE CREATED AUTHOR AUTHOR'S ORGANIZ ATION 11/16/2024 [facility] DATE CREATED AUTHOR AUTHOR'S ORGANIZ ATION 02/06/2025 [facility] DATE CREATED AUTHOR AUTHOR'S ORGANIZ ATION 06/06/2025 [facility] EPIC DATE CREATED AUTHOR AUTHOR'S ORGANIZ ATION 06/28/2025 [facility] REASON FOR VISIT (unrecogniz ed section and content) ReasonCommentsAnnual Exam Care Teams (unrecognized sec tion and content) Team Status: Active Member Role Status Dates Sheldon Xie DO Primary Care Provider Active Team Status: Active Member Role Status Dates Sheldon Xie DO Primary Care Provider Active Sta rt: January 22, 2025 Jacobo Barros ProviderActiveStart: January 22, 2025 Team Status: Active [...] Sta rt: January 25, 2025 Ranjit Peralta MDAttending ProviderActiveStart: January 25, 2025 Team Status: Active Member Role Status Dates Sheldon Xie DO Primary Care Provider Active Sta rt: January 26, 2025 Ranjit Peralta MDAttending ProviderActiveStart: January 26, 2025 Team Status: Active Member Role Status Dates Sheldon Xie DO Primary Care Provider Active Sta rt: January 27, 2025 Ranjit Peralta MDAttending ProviderActiveStart: January 27, 2025 Team Status: Active Member Role Status Dates Sheldon Xie DO Primary Care Provider Active Sta rt: January 28, 2025 Ranjit Peralta MDAttending ProviderActiveStart: January 28, 2025 Team Status: Active Member Role Status Dates Sheldon Xie DO Primary Care Provider Active Sta rt: January 29, 2025 Ranjit Peralta MDAttending ProviderActiveStart: January 29, 2025 Team Status: Active Member Role Status Dates Sheldon Xie DO Primary Care Provider Active Sta rt: January 30, 2025 Caleb Hernandez MDAttending ProviderActiveStart: January 30, 2025 Team Status: Active Member Role Status Dates Sheldon Xie DO Primary Care Provider Active Sta rt: January 31, 2025 Caleb Hernandez MDAttending ProviderActiveStart: January 31, 2025 Team Status: [...] Provider Active Sta rt: February 27, 2025 Srinivasaab Danis Claudioending ProviderActiveStart: February 27, 2025 Team Status: Inactive Member Role Status Dates Sheldon Xie DO Primary Care Provider Active Sta rt: March 17, 2025 End: March 17maverick Xie , DOAttending ProviderActiveStart: March 17, 2025 End: March 17, 2025 Team Status: Active Member Role Status Dates Sheldon Kuns , DO Primary Care Provider Active Sta rt: March 31, 2025 Artem Marroquin , PHYSICAL METEOROLOGIST-CAttending ProviderActiveStart: March 31, 2025 Team Status: Inactive Member Role Status Betzy Xie DO Primary Care Provider Active Sta rt: April 10, 2025 End: April 10hristopher E Aure , MDAttending ProviderActiveStart: April 10, 2025 End: April [...] Sta rt: July 08, 2024 Sammie Duran PHYSICAL METEOROLOGIST-CAttending ProviderActiveStart: July 08, 2024 Team Status: Inactive Member Role Status Betzy Xie DO Primary Care Provider Active Sta rt: July 09, 2024 End: July 09hristopher E Aure , MDAttending ProviderActive Start: July 09, 2024 [...] Provider Active Sta rt: November 06, 2023 Aleksandr Olivo , RMAAttending ProviderActiveStart: November 06, 2023 Team Status: Inactive Member Role Status Betzy Xie DO Primary Care Provide r, Attending Provider Active Start: November 15, 2023 End: November 15, 2023 Team Status: Inactive Member Role Status Betzy Xie DO Primary Care Provider Active Sta rt: November 16, 2023 End: November 16, 2023Sammie Duran PHYSICAL METEOROLOGIST-CAttending ProviderActiveStart: November 16, 2023 End: November 16, 2023 Team Status: Inactive Member Role Status Betzy Xie DO Primary Care Provide r, Attending Provider Active Start: November 20, 2023 End: November 20, 2023 Team Status: Inactive Member Role Status Betzy Xie DO Primary Care Provider Active Sta rt: December 05, 2023 End: December 04jasoner Angel YoonAure , MDAttending ProviderActiveStart: December 05, 2023 End: December 05, 2023 Team Status: Active Member Role Status Betzy Xie DO Primary Care Provider Active Sta rt: December 06, 2023 Dre Looney , MDAttending Provider, Other ProviderActiveStart: December 06, 2023 Team [...] Sta rt: January 09, 2024 End: January 08jasoner Angel YoonAure , MDAttending ProviderActiveStart: January 09, 2024 End: January 09, [...] DO Primary Care Provider Active Sammie Duran PHYSICAL METEOROLOGIST-CAttending ProviderActive Team Status: Inactive Member Role Status Betzy Xie DO Primary Care Provider, Attending Provi jessica Active Sammie Duran PHYSICAL METEOROLOGIST-CReferring ProviderActive Team Status: Inactive Member Role Status [...] Sta rt: September 01, 2023 End: September 01Beatris Nicholsonending ProviderActiveStart: September 01, 2023 End: September 01, [...] Sta rt: October 17, 2023 End: October 17Beatris Nicholsonending ProviderActive Start: October 17, 2023 End: October 17, 2023 Team Status: Active Member Role Status Betzy Xie DO Primary Care Provider Active Sta rt: November 16, 2023 Robert Richards ProviderActiveStart: November 16, 2023 Team MemberRelationshipSpecialtyStart DateEnd Date Sheldon Xie DO [facility]08/28/99 Team Status: Inactive Member Role Status Betzy Xie DO Primary Care Provide r, Attending Provider Active Start: May 16, 2024 End: May 16, 2024 Team Status: Inactive Member Role Status Betzy Xie DO Primary Care Provider Active Sta rt: June 06, 2024 End: June 06, 2024Sammie Duran , PHYSICAL METEOROLOGIST-CAttending ProviderActiveStart: June 06, 2024 End: June 06, 2024 Team Status: Inactive Member Role Status Dates Sheldon Xie DO Primary Care Provide r, Attending Provider Active Start: June 18, 2024 End: June 18, 2024Team MemberRelationshipSpecialtyStart DateEnd Date Sheldon Xie DO [address] [place] [address] PCP - [facility]11/13/24 Team Status: Inactive Member Role Status Dates Sheldon Xie DO Primary Care Provide r, Attending Provider Active Start: December 24, 2024 End: December 24, 2024Team MemberRelationshipSpecialtyStart DateEnd Date Sheldon Xie DO [address] [place] [address] PCP - [facility]12/26/24 Team Status: Inactive Member Role Status Dates Sheldon Xie DO Primary Care Provider Active Sta rt: December 24, 2024 End: December 24maverick Xie DOAttcindy ProviderActiveStart: December 24, 2024 End: December 24, 2024Team MemberRelationshipSpecialtyStart DateEnd Date Sheldon Xie DO [address] [place] [address] PCP - [facility]12/26/24 Team Status: Active Member Role/Relationship Status Dates Sheldon Xie DO Primary Care Provider Active Team Status: Inactive Member Role/Relationship Status Dates Sheldon Xie DO Primary Care Provider Active Sta rt: April 10, 2025 End: April 10victoria Looney MDAttcindy ProviderActiveStart: April 10, 2025 End: April 10, 2025 Team Status: Active Member Role/Relationship Status Dates Sheldon Xie DO Primary Care Provider Active Sta rt: June 20, 2025 RAJI Gonzalez-CAttending ProviderActiveStart: June 20, 2025 Team Status: Inactive Member Role/Relationship Status Sheldon Xie DO Primary Care Provider Active Sta rt: July 01, 2025 End: July 01retenid Xie DOAttending ProviderActiveStart: July 01, 2025 End: July 01, 2025 Goals (unrecognized section and content) Goals [...] BE BASED ON THE PRIMARY CLINICAL RECORDS. [employer] provides no warranty or guarantee of the accuracy or completeness of information in this document.
[2025-07-02 17:06] LABS: Anion Gap 11.1; Blood Urea Nitrogen 46.0 mg/dL (7.0-18.0); Calcium 11.2 mg/dL (8.5-10.1); Carbon Dioxide 35.5 mmol/L (21.0-32.0); Chloride 99 mmol/L (98-107); Estimated GFR (African America 57 (>=60 mL/min/1.73m^2); Estimated GFR (Non-African Ame 47 (>=60 mL/min/1.73m^2); Glucose 85 mg/dL (74-106); Potassium 4.6 mmol/L (3.5-5.1); Sodium 141 mmol/L (136-145)
== END 2025-07-02 16:07 | disposition home or self-care (01) ==
PROVIDERS: PCP Family Medicine; Visit Provider Nurse Practitioner Family
DX: I50.32 Chronic diastolic (congestive) heart failure (principal)
CPT/HCPCS: 36415; 80048